=== PATIENT | male | born 1980 | race African-American/Black ===

== ENCOUNTER 2017-10-21 18:04 | Inpatient (IN) | payer MEDICARE, OTHER ==
[~2017-10-21] VITALS: Ht 188 cm; Wt 68.0 kg
[~2017-10-21 18:04] MED LIST: NS Irrig 1000ml ONE; Sterile Water Irrig 1000ml IRRIG ONE
[2017-10-21 20:00] VITALS: BP 100/48
[2017-10-21] MEDS ORDERED: D5 1/2NS 1,000 ML IV SCH ×2 (20:45→22:30)
[2017-10-21 21:30] VITALS: BP 85/50
[2017-10-21 22:00] VITALS: BP 94/68
[2017-10-21] MEDS ORDERED: Norco 5mg/325mg tab ORAL PRN (22:30)
[2017-10-21 23:00] VITALS: BP 98/53
[2017-10-22] VITALS (21 sets, daily range): BP systolic 90–123; BP diastolic 53–76
[2017-10-22 06:45] LABS: HEMATOCRIT 30.4 % (42.0-52.0); HEMOGLOBIN 10.3 G/DL (14.2-18.0); MEAN CORPUSCULAR VOLUME 94 FL (80-99); PLATELET COUNT 214 K/UL (150-450); RED BLOOD COUNT 3.24 M/UL (4.70-6.10); RED CELL DISTRIBUTION WIDTH 13.8 % (11.6-14.8); WHITE BLOOD COUNT 10.8 K/UL (4.8-10.8)
[2017-10-22 07:10] LABS: ALANINE AMINOTRANSFERASE 19 U/L (12-78); ALBUMIN 1.8 G/DL (3.4-5.0); ALBUMIN/GLOBULIN RATIO 0.3 (1.0-2.7); ALKALINE PHOSPHATASE 65 U/L (46-116); ANION GAP 8 mmol/L (5-15); ASPARTATE AMINO TRANSFERASE 33 U/L (15-37); BLOOD UREA NITROGEN 11 mg/dL (7-18); CALCIUM 7.9 MG/DL (8.5-10.1); CARBON DIOXIDE 24 MMOL/L (21-32); CHLORIDE 102 MMOL/L (98-107); CREATININE 1.4 MG/DL (0.55-1.30); PHOSPHORUS 3.1 MG/DL (2.5-4.9); SODIUM 134 MMOL/L (136-145)
[2017-10-22] MEDS: Bactrim-DS 1 tab ORAL SCH ×3 (08:32→20:50)
[2017-10-22] MEDS ORDERED: Cefepime HCl 1 GM in D5W 55 ML IVPB SCH (09:00)
--- NOTE | 2017-10-22 09:01 | Diagnostic Imaging Report ---
Indication: Shortness of breath Technique: One view of the chest Comparison: none Findings: Surgical clip versus artifact seen in the right axilla. Somewhat prominent interstitial markings are seen in the right lower lung. No definite acute infiltrates, effusions, or congestion otherwise. Impression: Questionable ill-defined mostly interstitial infiltrates in the right lower lung. Correlate with clinical findings No acute process otherwise
[2017-10-22] MEDS ORDERED: Isovue-300 100ml vial INJ PRN (09:30)
[2017-10-22] MEDS ORDERED: PPD Tuberculin Skin Test 5TU IDERMAL ONE (09:30)
[2017-10-22] MEDS: Cefepime 1gm in D5W 55ml IVPB SCH ×2 (09:47→20:49)
--- NOTE | 2017-10-22 09:50 | Consultation ---
History of Present Illness General Date patient seen: Oct 22, 2017 Referring physician: Dr. Gtz Reason for Consultation: ICU management Present Illness HPI 36 year old male with hx of HIV ( on HIV meds), Kaposi Sarcoma, last chemo one month ago, Castlemans's disease presented to [facility] with CC of pain in legs , back, neck. C/o poor appetite, developed nausea, vomiting. Then developed fever and chills. Pt is transferred to [facility] for further treatment. Pt is awake , looks comfortable, c/o pain in lower extremities. Allergies: Coded Allergies: No Known Allergies (Unverified , 10/21/17) Patient History Healthcare decision maker N Resuscitation status Full Code Advanced Directive on File No Past Medical/Surgical History Past Medical/Surgical History: (1) HIV disease (2) Kaposi disease (3) Castleman disease Review of Systems Musculoskeletal: Reports: muscle pain All Other Systems: negative except mentioned in HPI Physical Exam General Appearance: cachetic Lines, tubes and drains: peripheral HEENT: normocephalic, atraumatic Neck: non-tender, normal alignment Respiratory/Chest: rhonchi - left, rhonchi - right Cardiovascular/Chest: normal peripheral pulses, normal rate Abdomen: normal bowel sounds, non tender Genitourinary/Rectal: normal genital exam, normal rectal exam Extremities: normal range of motion, non-tender, moderate edema Last 24 Hour Vital Signs Date Time Temp Pulse Resp B/P (MAP) Pulse Ox O2 Delivery O2 Flow Rate FiO2 10/22/17 08:00 Room Air 10/22/17 06:00 112 24 99/56 (70) 97 10/22/17 05:00 115 24 90/53 (65) 97 10/22/17 04:00 97.9 109 24 90/53 (65) 97 97.9 10/22/17 04:00 110 10/22/17 04:00 Room Air 10/22/17 03:00 98.3 120 24 99/59 (72) 96 98.3 10/22/17 02:14 100.2 132 24 92/59 (70) 96 100.2 10/22/17 02:00 100.6 10/22/17 01:52 100.6 10/22/17 01:00 153 26 91/57 (68) 96 10/22/17 00:53 102.0 10/22/17 00:52 102.0 10/22/17 00:00 100.8 162 28 90/54 (66) 100 100.8 10/22/17 00:00 160 10/22/17 00:00 Room Air 10/21/17 23:00 101.0 164 25 98/53 (68) 92 101.0 10/21/17 22:46 Room Air 2.0 10/21/17 22:24 176 10/21/17 22:20 Room Air 10/21/17 22:00 103.0 166 27 94/68 (77) 100 103.0 10/21/17 21:30 102.0 167 20 85/50 (62) 100 102.0 10/21/17 20:01 177 10/21/17 20:00 99.5 180 22 100/48 (65) 97 99.5 Intake and Output 10/21/17 10/22/17 19:00 07:00 Intake Total 870 ml Output Total 800 ml Balance 70 ml Intake Oral 270 ml IV Total 600 ml Output Urine Total 800 ml # Voids 4 Laboratory Tests Test 10/22/17 00:00 10/22/17 06:00 10/22/17 08:55 HIV-1 Antibody Pending HIV-2 Antibody Pending White Blood Count Pending Red Blood Count 3.24 M/UL (4.70-6.10) L Hemoglobin 10.3 G/DL (14.2-18.0) L Hematocrit 30.4 % (42.0-52.0) L Mean Corpuscular Volume 94 FL (80-99) Mean Corpuscular Hemoglobin 31.7 PG (27.0-31.0) H Mean Corpuscular Hemoglobin Concent 33.8 G/DL (32.0-36.0) Red Cell Distribution Width 13.8 % (11.6-14.8) Platelet Count 214 K/UL (150-450) Mean Platelet Volume 5.1 FL (6.5-10.1) L Neutrophils (%) (Auto) % (45.0-75.0) Lymphocytes (%) (Auto) % (20.0-45.0) Monocytes (%) (Auto) % (1.0-10.0) Eosinophils (%) (Auto) % (0.0-3.0) Basophils (%) (Auto) % (0.0-2.0) Neutrophils % (Manual) Pending Lymphocytes % (Manual) Pending Lymphocytes Pending Platelet Estimate Pending Platelet Morphology Pending Sodium Level 134 MMOL/L (136-145) L Potassium Level 3.0 MMOL/L (3.5-5.1) L Chloride Level 102 MMOL/L (98-107) Carbon Dioxide Level 24 MMOL/L (21-32) Anion Gap 8 mmol/L (5-15) Blood Urea Nitrogen 11 mg/dL (7-18) Creatinine 1.4 MG/DL (0.55-1.30) H Estimat Glomerular Filtration Rate > 60 mL/min (>60) Glucose Level 92 MG/DL (74-106) Calcium Level 7.9 MG/DL (8.5-10.1) L Phosphorus Level 3.1 MG/DL (2.5-4.9) Magnesium Level 1.1 MG/DL (1.8-2.4) L Total Bilirubin 1.0 MG/DL (0.2-1.0) Aspartate Amino Transf (AST/SGOT) 33 U/L (15-37) Alanine Aminotransferase (ALT/SGPT) 19 U/L (12-78) Alkaline Phosphatase 65 U/L (46-116) Lactate Dehydrogenase 279 U/L (81-234) H Total Protein 7.2 G/DL (6.4-8.2) Albumin 1.8 G/DL (3.4-5.0) L Globulin 5.4 g/dL Albumin/Globulin Ratio 0.3 (1.0-2.7) L Percent CD3 Cells Pending Absolute CD3 Count Pending Percent CD4 Cells Pending Absolute CD4 Count Pending T-Lymphocyte CD4/CD8 Ratio Pending Percent CD8 Cells Pending Absolute CD8 Count Pending HIV (1&2) Antibody Rapid Preliminary positive Arterial Blood pH 7.390 (7.350-7.450) Arterial Blood Partial Pressure CO2 39.0 mmHg (35.0-45.0) Arterial Blood Partial Pressure O2 72.0 mmHg (75.0-100.0) L Arterial Blood HCO3 23.1 mmol/L (22.0-26.0) Arterial Blood Oxygen Saturation 93.9 % (92.0-98.0) Arterial Blood Base Excess -1.6 Shayne Test Positive Height (Feet): 6 Height (Inches): 2.00 Weight (Pounds): 149 Medications Current Medications Medications (Trade) Dose Ordered Sig/Yessica Route PRN Reason Start Time Stop Time Status Last Admin Dose Admin Acetaminophen (Tylenol) 650 mg Q6H PRN ORAL Mild Pain/Temp > 100.5 10/21/17 22:30 11/20/17 22:29 10/22/17 00:53 Acetaminophen/ Hydrocodone Bitart ([place] 5/325) 1 tab Q6H PRN ORAL For Pain 10/21/17 22:30 10/28/17 22:29 10/22/17 00:52 Cefepime HCl 1 gm/ Dextrose 55 ml @ 110 mls/hr EVERY 12 HOURS IVPB 10/22/17 09:00 10/29/17 08:59 Dextrose/Sodium Chloride 1,000 ml @ 75 mls/hr [id number] IV 10/21/17 22:30 11/20/17 22:29 10/21/17 22:30 Trimethoprim/ Sulfamethoxazole (Bactrim-DS) 1 tab Q12HR ORAL 10/22/17 09:00 10/29/17 08:59 10/22/17 08:32 Assessment/Plan Problem List: (1) Septic shock ICD Codes: A41.9 - Sepsis, unspecified organism; R65.21 - Severe sepsis with septic shock SNOMED: 41224191 (2) ATN (acute tubular necrosis) ICD Codes: N17.0 - Acute kidney failure with tubular necrosis SNOMED: 66619118 (3) Interstitial pneumonia ICD Codes: J84.9 - Interstitial pulmonary disease, unspecified SNOMED: 10405151 (4) HIV disease ICD Codes: B20 - Human immunodeficiency virus [HIV] disease SNOMED: 61150604 (5) Kaposi disease ICD Codes: Q82.1 - Xeroderma pigmentosum SNOMED: 71092247 (6) Castleman disease ICD Codes: D47.Z2 - Castleman disease SNOMED: 723557948, 444565758 Assessment/Plan escobedo culture sputum for afb PPD rule out fungal and opportunistic infections CT of chest Echo for w/u of tachycardia broad spectrum abx dvt prophylaxis. respiratory isolation Ya Hester MD Oct 22, 2017 09:50
[2017-10-22] MEDS ORDERED: Sterile Water For Irrig 2000ml IRRIG ONE (10:15)
[2017-10-22 10:38] LABS: INR 1.1 (0.9-1.1)
--- NOTE | 2017-10-22 10:44 | Consultation ---
History of Present Illness General Date patient seen: Oct 22, 2017 Referring physician: Dr. Gtz Reason for Consultation: ICU management Present Illness HPI 36 year old male with hx of HIV ( on HIV meds), Kaposi Sarcoma, last chemo one month ago, Castlemans's disease presented to [facility]. the pt has not been eating and is depressed. He has insomnia and low energy. No SI/HI Allergies: Coded Allergies: No Known Allergies (Unverified , 10/21/17) Patient History Limited by: medical condition History Provided By: Patient, Medical Record, PMD Healthcare decision maker N Resuscitation status Full Code Advanced Directive on File No Past Medical/Surgical History Past Medical/Surgical History: (1) Sepsis (2) Castleman disease (3) Kaposi disease (4) HIV disease (5) Septic shock (6) ATN (acute tubular necrosis) (7) Interstitial pneumonia Review of Systems Psychiatric: Reports: prior hx, anxiety, depressed feelings, emotional problems Physical Exam General Appearance: no apparent distress, alert Neurologic: oriented x 3, responsive, depressed affect Last 24 Hour Vital Signs Date Time Temp Pulse Resp B/P (MAP) Pulse Ox O2 Delivery O2 Flow Rate FiO2 10/22/17 08:00 Room Air 10/22/17 06:00 112 24 99/56 (70) 97 10/22/17 05:00 115 24 90/53 (65) 97 10/22/17 04:00 97.9 109 24 90/53 (65) 97 97.9 10/22/17 04:00 110 10/22/17 04:00 Room Air 10/22/17 03:00 98.3 120 24 99/59 (72) 96 98.3 10/22/17 02:14 100.2 132 24 92/59 (70) 96 100.2 10/22/17 02:00 100.6 10/22/17 01:52 100.6 10/22/17 01:00 153 26 91/57 (68) 96 10/22/17 00:53 102.0 10/22/17 00:52 102.0 10/22/17 00:00 100.8 162 28 90/54 (66) 100 100.8 10/22/17 00:00 160 10/22/17 00:00 Room Air 10/21/17 23:00 101.0 164 25 98/53 (68) 92 101.0 10/21/17 22:46 Room Air 2.0 10/21/17 22:24 176 10/21/17 22:20 Room Air 10/21/17 22:00 103.0 166 27 94/68 (77) 100 103.0 10/21/17 21:30 102.0 167 20 85/50 (62) 100 102.0 10/21/17 20:01 177 10/21/17 20:00 99.5 180 22 100/48 (65) 97 99.5 Intake and Output 10/21/17 10/22/17 19:00 07:00 Intake Total 870 ml Output Total 800 ml Balance 70 ml Intake Oral 270 ml IV Total 600 ml Output Urine Total 800 ml # Voids 4 Laboratory Tests Test 10/22/17 00:00 10/22/17 06:00 10/22/17 08:55 10/22/17 10:05 HIV-1 Antibody Pending HIV-2 Antibody Pending White Blood Count Pending Pending Red Blood Count 3.24 M/UL (4.70-6.10) L Pending Hemoglobin 10.3 G/DL (14.2-18.0) L Pending Hematocrit 30.4 % (42.0-52.0) L Pending Mean Corpuscular Volume 94 FL (80-99) Pending Mean Corpuscular Hemoglobin 31.7 PG (27.0-31.0) H Pending Mean Corpuscular Hemoglobin Concent 33.8 G/DL (32.0-36.0) Pending Red Cell Distribution Width 13.8 % (11.6-14.8) Pending Platelet Count 214 K/UL (150-450) Pending Mean Platelet Volume 5.1 FL (6.5-10.1) L Pending Neutrophils (%) (Auto) % (45.0-75.0) Pending Lymphocytes (%) (Auto) % (20.0-45.0) Pending Monocytes (%) (Auto) % (1.0-10.0) Pending Eosinophils (%) (Auto) % (0.0-3.0) Pending Basophils (%) (Auto) % (0.0-2.0) Pending Neutrophils % (Manual) Pending Lymphocytes % (Manual) Pending Lymphocytes Pending Platelet Estimate Pending Platelet Morphology Pending Sodium Level 134 MMOL/L (136-145) L Potassium Level 3.0 MMOL/L (3.5-5.1) L Chloride Level 102 MMOL/L (98-107) Carbon Dioxide Level 24 MMOL/L (21-32) Anion Gap 8 mmol/L (5-15) Blood Urea Nitrogen 11 mg/dL (7-18) Creatinine 1.4 MG/DL (0.55-1.30) H Estimat Glomerular Filtration Rate > 60 mL/min (>60) Glucose Level 92 MG/DL (74-106) Calcium Level 7.9 MG/DL (8.5-10.1) L Phosphorus Level 3.1 MG/DL (2.5-4.9) Magnesium Level 1.1 MG/DL (1.8-2.4) L Total Bilirubin 1.0 MG/DL (0.2-1.0) Aspartate Amino Transf (AST/SGOT) 33 U/L (15-37) Alanine Aminotransferase (ALT/SGPT) 19 U/L (12-78) Alkaline Phosphatase 65 U/L (46-116) Lactate Dehydrogenase 279 U/L (81-234) H Pending Total Protein 7.2 G/DL (6.4-8.2) Albumin 1.8 G/DL (3.4-5.0) L Globulin 5.4 g/dL Albumin/Globulin Ratio 0.3 (1.0-2.7) L Percent CD3 Cells Pending Absolute CD3 Count Pending Percent CD4 Cells Pending Absolute CD4 Count Pending T-Lymphocyte CD4/CD8 Ratio Pending Percent CD8 Cells Pending Absolute CD8 Count Pending HIV (1&2) Antibody Rapid Preliminary positive Arterial Blood pH 7.390 (7.350-7.450) Arterial Blood Partial Pressure CO2 39.0 mmHg (35.0-45.0) Arterial Blood Partial Pressure O2 72.0 mmHg (75.0-100.0) L Arterial Blood HCO3 23.1 mmol/L (22.0-26.0) Arterial Blood Oxygen Saturation 93.9 % (92.0-98.0) Arterial Blood Base Excess -1.6 Shayne Test Positive Erythrocyte Sedimentation Rate Pending Reticulocyte Count Pending Prothrombin Time 11.8 SEC (9.30-11.50) H Prothromb Time International Ratio 1.1 (0.9-1.1) Activated Partial Thromboplast Time 37 SEC (23-33) H Lactic Acid Level Pending Uric Acid Pending Iron Level Pending Unsaturated Iron Binding Pending Total Creatine Kinase Pending Carcinoembryonic Antigen Pending Vitamin B12 Level Pending Folate Pending Blastomyces Ab Immunodiffusion Pending Histoplasma Mycelial Antibody Pending Histoplasma Antibody w Mycelial Ag Pending Histoplasma Antibody with Yeast Ag Pending TB Test (T-Spot) Pending TB Test Nil Control (T-Spot) Pending TB Test Panel A (T-Spot) Pending TB Test Panel B (T-Spot) Pending TB Test Positive Control (T-Spot) Pending Height (Feet): 6 Height (Inches): 2.00 Weight (Pounds): 149 Medications Current Medications Medications (Trade) Dose Ordered Sig/Yessica Route PRN Reason Start Time Stop Time Status Last Admin Dose Admin Acetaminophen (Tylenol) 650 mg Q6H PRN ORAL Mild Pain/Temp > 100.5 10/21/17 22:30 11/20/17 22:29 10/22/17 00:53 Acetaminophen/ Hydrocodone Bitart ([place] 5/325) 1 tab Q6H PRN ORAL For Pain 10/21/17 22:30 10/28/17 22:29 10/22/17 00:52 Cefepime HCl 1 gm/ Dextrose 55 ml @ 110 mls/hr EVERY 12 HOURS IVPB 10/22/17 09:00 10/29/17 08:59 10/22/17 09:47 Iopamidol (Isovue-300 100ml) 100 ml NOW PRN INJ Radiology Procedure 10/22/17 09:30 10/24/17 09:30 Pantoprazole (Protonix) 40 mg EVERY 12 HOURS IVP 10/22/17 21:00 11/21/17 20:59 Potassium Chloride 10 meq/ Sodium Chloride 1,005 ml @ 100 mls/hr Q10H3M IV 10/22/17 11:00 11/21/17 10:59 Sodium Chloride (Sodium Chloride Dey-Michael 3%) 4 ml ONCE ONCE INH 10/22/17 11:00 10/22/17 11:01 Trimethoprim/ Sulfamethoxazole (Bactrim-DS) 1 tab Q12HR ORAL 10/22/17 09:00 10/29/17 08:59 10/22/17 08:32 Assessment/Plan Status: unchanged Assessment/Plan MDD Failure to thrive -remeron 15mg po qhs -ativan prn -provided marie/Rajinder Mojica MD Oct 22, 2017 10:44
[2017-10-22 10:50] LABS: CREATINE KINASE 724 U/L (26-308); LACTATE DEHYDROGENASE 141 U/L (81-234)
[2017-10-22] MEDS ORDERED: Norco 5mg/325mg tab ORAL PRN (11:00)
[2017-10-22] MEDS ORDERED: LORazepam 1mg tab ORAL PRN (11:00)
[2017-10-22] MEDS ORDERED: Sodium Chloride 3% 4ml Nebul Soln INH ONE (11:00)
[2017-10-22 11:02] LABS: % IRON SATURATION 17 % (15-50); IRON 16 ug/dL (50-175); TOTAL IRON BINDING CAPACITY 96 ug/dL (250-450)
[2017-10-22 11:22] LABS: HEMOGLOBIN 11.3 G/DL (14.2-18.0); MEAN CORPUSCULAR VOLUME 91 FL (80-99); PLATELET COUNT 223 K/UL (150-450); RED BLOOD COUNT 3.61 M/UL (4.70-6.10); RED CELL DISTRIBUTION WIDTH 13.5 % (11.6-14.8)
[2017-10-22] MEDS: Potassium Chloride 10 MEQ in NS 1000ml 1,000 ML IV SCH ×2 (11:56→21:03)
[2017-10-22] MEDS: Morphine Sulfate 2mg/ml Inj IVP PRN ×2 (11:56→21:01)
[2017-10-22 12:56] LABS: APPEARANCE,URINE CLEAR; BILIRUBIN, URINE NEGATIVE (NEGATIVE); GLUCOSE, URINE (UA) NEGATIVE (NEGATIVE); KETONES,URINE 1+ (NEGATIVE); LEUKOCYTE ESTERASE ,URINE NEGATIVE (NEGATIVE); NITRITE,URINE NEGATIVE (NEGATIVE); PH,URINE 5 (4.5-8.0); PROTEIN,URINE 2+ (NEGATIVE); UROBILINOGEN,URINE 1 MG/DL (0.0-1.0)
[2017-10-22 13:07] LABS: COLOR,URINE YELLOW
--- NOTE | 2017-10-22 14:19 | Consultation ---
History of Present Illness General Date patient seen: Oct 22, 2017 Chief Complaint: Sepsis Referring physician: Dr. Gtz Reason for Consultation: ICU management Present Illness HPI Mr. Hewitt is a 36 year old HIV/AIDS positive male who presented to the [facility] ED with poor appetite, nausea and vomiting. He also had fever and chills. He was transferred from [facility]. He had a HR of 180 on arrival and a fever of 102. He has had no leukocytosis and is on RA. CT chest pending. CXR shows Surgical clip versus artifact seen in the right axilla. Somewhat prominent interstitial markings are seen in the right lower lung. No definite acute infiltrates, effusions, or congestion otherwise. He was placed on Bactrim and Cefepime. ID consulted for HIV care HIV Hx Dx 1999 Started on meds at that time. Says he has been taking them since. Does not know VL, CD4 counts or med names Per his mother is on Tivicay, Truvada and Bactrim. PMHx HIV Castlemans's disease/Kaposi Sarcoma, last chemo one month (got about 9 months of it on and off) Blood Clot in left groin - On Enoxaparin BID at home PSHx Axillary LN Bx x 2 SocHx Cig/MJ No IVDU or EtOH FamHx Lung CA - Grandmother Allergies: Coded Allergies: No Known Allergies (Unverified , 10/21/17) Patient History Healthcare decision maker N Resuscitation status Full Code Advanced Directive on File No Review of Systems All Other Systems: negative except mentioned in HPI Physical Exam Last 24 Hour Vital Signs Date Time Temp Pulse Resp B/P (MAP) Pulse Ox O2 Delivery O2 Flow Rate FiO2 10/22/17 12:12 100.4 10/22/17 12:06 132 20 96 Room Air 21 10/22/17 11:45 126 18 95 Room Air 21 10/22/17 11:45 126 20 Room Air 21 10/22/17 10:00 131 22 115/70 (85) 97 10/22/17 09:00 127 22 105/65 (78) 98 10/22/17 09:00 Room Air 10/22/17 08:00 116 24 101/71 (81) 97 10/22/17 08:00 124 10/22/17 08:00 Room Air 10/22/17 07:00 97.6 116 21 100/64 (76) 97 97.6 10/22/17 06:00 112 24 99/56 (70) 97 10/22/17 05:00 115 24 90/53 (65) 97 10/22/17 04:00 97.9 109 24 90/53 (65) 97 97.9 10/22/17 04:00 110 10/22/17 04:00 Room Air 10/22/17 03:00 98.3 120 24 99/59 (72) 96 98.3 10/22/17 02:14 100.2 132 24 92/59 (70) 96 100.2 10/22/17 02:00 100.6 10/22/17 01:52 100.6 10/22/17 01:00 153 26 91/57 (68) 96 10/22/17 00:53 102.0 10/22/17 00:52 102.0 10/22/17 00:00 100.8 162 28 90/54 (66) 100 100.8 10/22/17 00:00 160 10/22/17 00:00 Room Air 10/21/17 23:00 101.0 164 25 98/53 (68) 92 101.0 10/21/17 22:46 Room Air 2.0 10/21/17 22:24 176 10/21/17 22:20 Room Air 10/21/17 22:00 103.0 166 27 94/68 (77) 100 103.0 10/21/17 21:30 102.0 167 20 85/50 (62) 100 102.0 10/21/17 20:01 177 10/21/17 20:00 99.5 180 22 100/48 (65) 97 99.5 Intake and Output 10/21/17 10/22/17 19:00 07:00 Intake Total 870 ml Output Total 800 ml Balance 70 ml Intake Oral 270 ml IV Total 600 ml Output Urine Total 800 ml # Voids 4 Laboratory Tests Test 10/22/17 00:00 10/22/17 06:00 10/22/17 08:40 10/22/17 08:55 HIV-1 Antibody Pending HIV-2 Antibody Pending White Blood Count Pending Red Blood Count 3.24 M/UL (4.70-6.10) L Hemoglobin 10.3 G/DL (14.2-18.0) L Hematocrit 30.4 % (42.0-52.0) L Mean Corpuscular Volume 94 FL (80-99) Mean Corpuscular Hemoglobin 31.7 PG (27.0-31.0) H Mean Corpuscular Hemoglobin Concent 33.8 G/DL (32.0-36.0) Red Cell Distribution Width 13.8 % (11.6-14.8) Platelet Count 214 K/UL (150-450) Mean Platelet Volume 5.1 FL (6.5-10.1) L Neutrophils (%) (Auto) % (45.0-75.0) Lymphocytes (%) (Auto) % (20.0-45.0) Monocytes (%) (Auto) % (1.0-10.0) Eosinophils (%) (Auto) % (0.0-3.0) Basophils (%) (Auto) % (0.0-2.0) Differential Total Cells Counted 100 Neutrophils % (Manual) 85 % (45-75) H Lymphocytes % (Manual) 6 % (20-45) L Monocytes % (Manual) 4 % (1-10) Eosinophils % (Manual) 2 % (0-3) Basophils % (Manual) 0 % (0-2) Band Neutrophils 3 % (0-8) Lymphocytes Pending Platelet Estimate Adequate Platelet Morphology Normal Hypochromasia 1+ Anisocytosis 1+ Sodium Level 134 MMOL/L (136-145) L Potassium Level 3.0 MMOL/L (3.5-5.1) L Chloride Level 102 MMOL/L (98-107) Carbon Dioxide Level 24 MMOL/L (21-32) Anion Gap 8 mmol/L (5-15) Blood Urea Nitrogen 11 mg/dL (7-18) Creatinine 1.4 MG/DL (0.55-1.30) H Estimat Glomerular Filtration Rate > 60 mL/min (>60) Glucose Level 92 MG/DL (74-106) Calcium Level 7.9 MG/DL (8.5-10.1) L Phosphorus Level 3.1 MG/DL (2.5-4.9) Magnesium Level 1.1 MG/DL (1.8-2.4) L Total Bilirubin 1.0 MG/DL (0.2-1.0) Aspartate Amino Transf (AST/SGOT) 33 U/L (15-37) Alanine Aminotransferase (ALT/SGPT) 19 U/L (12-78) Alkaline Phosphatase 65 U/L (46-116) Lactate Dehydrogenase 279 U/L (81-234) H Total Protein 7.2 G/DL (6.4-8.2) Albumin 1.8 G/DL (3.4-5.0) L Globulin 5.4 g/dL Albumin/Globulin Ratio 0.3 (1.0-2.7) L Percent CD3 Cells Pending Absolute CD3 Count Pending Percent CD4 Cells Pending Absolute CD4 Count Pending T-Lymphocyte CD4/CD8 Ratio Pending Percent CD8 Cells Pending Absolute CD8 Count Pending HIV (1&2) Antibody Rapid Preliminary positive Urine Color Yellow Urine Appearance Clear Urine pH 5 (4.5-8.0) Urine Specific [place] 1.015 (1.005-1.035) Urine Protein 2+ (NEGATIVE) H Urine Glucose (UA) Negative (NEGATIVE) Urine Ketones 1+ (NEGATIVE) H Urine Blood 2+ (NEGATIVE) H Urine Nitrite Negative (NEGATIVE) Urine Bilirubin Negative (NEGATIVE) Urine Urobilinogen 1 MG/DL (0.0-1.0) H Urine Leukocyte Esterase Negative (NEGATIVE) Urine RBC 2-4 /HPF (0 - 0) H Urine WBC 0 /HPF (0 - 0) Urine Squamous Epithelial Cells Occasional /LPF Urine Amorphous Sediment Occasional /LPF (NONE) Urine Bacteria Occasional /HPF (NONE) Urine Eosinophils None seen (NONE SEEN) Urine Random Sodium 41 mmol/L (20-110) Urine Potassium Timed 31 mmol/L (12-62) Arterial Blood pH 7.390 (7.350-7.450) Arterial Blood Partial Pressure CO2 39.0 mmHg (35.0-45.0) Arterial Blood Partial Pressure O2 72.0 mmHg (75.0-100.0) L Arterial Blood HCO3 23.1 mmol/L (22.0-26.0) Arterial Blood Oxygen Saturation 93.9 % (92.0-98.0) Arterial Blood Base Excess -1.6 Shayne Test Positive Test 10/22/17 10:05 White Blood Count 9.0 K/UL (4.8-10.8) Red Blood Count 3.61 M/UL (4.70-6.10) L Hemoglobin 11.3 G/DL (14.2-18.0) L Hematocrit 33.0 % (42.0-52.0) L Mean Corpuscular Volume 91 FL (80-99) Mean Corpuscular Hemoglobin 31.3 PG (27.0-31.0) H Mean Corpuscular Hemoglobin Concent 34.2 G/DL (32.0-36.0) Red Cell Distribution Width 13.5 % (11.6-14.8) Platelet Count 223 K/UL (150-450) Mean Platelet Volume 5.2 FL (6.5-10.1) L Neutrophils (%) (Auto) % (45.0-75.0) Lymphocytes (%) (Auto) % (20.0-45.0) Monocytes (%) (Auto) % (1.0-10.0) Eosinophils (%) (Auto) % (0.0-3.0) Basophils (%) (Auto) % (0.0-2.0) Differential Total Cells Counted 100 Neutrophils % (Manual) 86 % (45-75) H Lymphocytes % (Manual) 6 % (20-45) L Monocytes % (Manual) 3 % (1-10) Eosinophils % (Manual) 5 % (0-3) H Basophils % (Manual) 0 % (0-2) Band Neutrophils 0 % (0-8) Platelet Estimate Adequate Platelet Morphology Normal Hypochromasia 1+ Anisocytosis 1+ Erythrocyte Sedimentation Rate 105 MM/HR (0-15) H Reticulocyte Count 0.9 % (0.0-2.0) Prothrombin Time 11.8 SEC (9.30-11.50) H Prothromb Time International Ratio 1.1 (0.9-1.1) Activated Partial Thromboplast Time 37 SEC (23-33) H Lactic Acid Level 1.50 mmol/L (0.4-2.0) Uric Acid 4.3 MG/DL (2.6-7.2) Iron Level 16 ug/dL (50-175) L Total Iron Binding Capacity 96 ug/dL (250-450) L Percent Iron Saturation 17 % (15-50) Unsaturated Iron Binding 80 ug/dL (112-346) L Lactate Dehydrogenase 141 U/L (81-234) Total Creatine Kinase 724 U/L (26-308) H Carcinoembryonic Antigen Pending Vitamin B12 Level 464 PG/ML (193-986) Folate 5.3 NG/ML (8.6-58.9) L Blastomyces Ab Immunodiffusion Pending Histoplasma Mycelial Antibody Pending Histoplasma Antibody w Mycelial Ag Pending Histoplasma Antibody with Yeast Ag Pending TB Test (T-Spot) Pending TB Test Nil Control (T-Spot) Pending TB Test Panel A (T-Spot) Pending TB Test Panel B (T-Spot) Pending TB Test Positive Control (T-Spot) Pending Height (Feet): 6 Height (Inches): 2.00 Weight (Pounds): 149 Medications Current Medications Medications (Trade) Dose Ordered Sig/Yessica Route PRN Reason Start Time Stop Time Status Last Admin Dose Admin Acetaminophen (Tylenol) 650 mg Q6H PRN ORAL Mild Pain/Temp > 100.5 10/21/17 22:30 11/20/17 22:29 10/22/17 12:12 Acetaminophen/ Hydrocodone Bitart ([place] 5/325) 1 tab Q6H PRN ORAL For Moderate Pain(4-6) 10/22/17 11:00 10/28/17 22:29 Cefepime HCl 1 gm/ Dextrose 55 ml @ 110 mls/hr EVERY 12 HOURS IVPB 10/22/17 09:00 10/29/17 08:59 10/22/17 09:47 Iopamidol (Isovue-300 100ml) 100 ml NOW PRN INJ Radiology Procedure 10/22/17 09:30 10/24/17 09:30 Lorazepam (Ativan) 1 mg Q6H PRN ORAL For Anxiety 10/22/17 11:00 10/29/17 10:59 Mirtazapine (Remeron) 15 mg BEDTIME ORAL 10/22/17 21:00 11/21/17 20:59 Morphine Sulfate (Morphine Sulfate) 2 mg Q4H PRN IVP For Severe Pain(7-10) 10/22/17 10:45 10/29/17 10:44 10/22/17 11:56 Pantoprazole (Protonix) 40 mg EVERY 12 HOURS IVP 10/22/17 21:00 11/21/17 20:59 Potassium Chloride 10 meq/ Sodium Chloride 1,005 ml @ 100 mls/hr Q10H3M IV 10/22/17 11:00 11/21/17 10:59 10/22/17 11:56 Trimethoprim/ Sulfamethoxazole (Bactrim-DS) 1 tab Q12HR ORAL 10/22/17 09:00 10/29/17 08:59 10/22/17 08:32 Objective Narrative GENERAL: Thin male, NAD, Sitting in bed, Comfortable HEENT: NCAT, MMM, EOMI left eye with some deviation (Not new per patient) , PERRL, No scleral icterus, Poor dentition, No oral thrush. CARDIOVASCULAR: RRR, S1, S2, No M/R/G LUNGS: CTAB, No W/C, No chest pain on papation ABDOMEN: Soft, NT, ND, +BS, No CVA tenderness or back pain, Pain in the left inguinal region EXTREMITIES: No cyanosis, clubbing. Pulses 1+ DP, 2+ Rad B/L,Left foot and leg with edema to knee, Right foot with edema SKIN: Multiple dark skin lesion/crusting of feet and shins B/L, NEUROLOGIC: A/Ox4, Grossly non focal Assessment/Plan Assessment/Plan 36 year old HIV/AIDS positive male who presented to the [facility] ED with poor appetite, nausea and vomiting and fever to 102. Sepsis - PNA, KS, other infection (TB?) - CXR interstitial marking but no definite acute infiltrates, effusions, or congestion 10/22/17 CT chest - Pend Fever up to 102 HIV - On Tivicay and Truvada and Bactrim Unknown CD4 adn VL KS/ Castlemans's disease REENA P: Continue Cefepime and Bactrim for now Start Azithromycin for possible pna. QTC 378 - f/u CT chest - f/u B/U/S Cx and AFB - Monitor CBC and Temps - Hold HIV meds for now - Called his HIV MD Dr. Carr Waiting for a call back. Thank you for this consult we will continue to follow the patient with you. Sterling Ortiz MD Oct 22, 2017 14:19
--- NOTE | 2017-10-22 15:30 | Cardiology Report ---
APPROVED REPORT EXAM: Two-dimensional and M-mode echocardiogram with Doppler and color Doppler. INDICATION Tachycardia M-Mode DIMENSIONS IVSd1.4 (0.7-1.1cm)Left Atrium (MM)3.0 (1.6-4.0cm) LVDd3.8 (3.5-5.6cm)Aortic Root3.4 (2.0-3.7cm) PWd1.1 (0.7-1.1cm)Aortic Cusp Exc.2.2 (1.5-2.0cm) LVDs2.6 (2.5-4.0cm) PWs1.3 cm Normal left ventricular chamber size, systolic function and wall motion. Left ventricular ejection fraction estimated to be 65-70 %. Mild left ventricular hypertrophy. Small pericardial effusion along free wall of RV. All other cardiac chamber sizes are within normal limits. Mild focal aortic valve sclerosis with adequate cusp excursion. Mildly thickened mitral valve leaflets with normal excursion. Mitral annulus and aortic root calcification. Normal pulmonic valve structure. Normal tricuspid valve structure. IVC at normal size with physiologic collapse. A color flow and spectral Doppler study was performed and revealed: Trace mitral regurgitation. Mitral diastolic velocities suggest reduced left ventricular relaxation c/w mild LV diastolic dysfunction (Grade I). Mild tricuspid regurgitation. Tricuspid systolic velocities suggests peak right ventricular systolic pressure of 39 mmHg, consistent with mild pulmonary hypertension.
[2017-10-22] MEDS ORDERED: Azithromycin 250mg tab ORAL SCH (16:02)
--- NOTE | 2017-10-22 16:43 | Diagnostic Imaging Report ---
Clinical Indication: Chest pain, history of Castleman's disease, fever and chills Technique: IV administration nonionic contrast. Spiral acquisition obtained through the chest. Multiplanar reconstructions generated. Total dose length product 529.09 mGycm. CTDIvol(s) 13.07 mGy. Dose reduction achieved using automated exposure control Comparison: Chest radiograph earlier the same day Findings: There is a small pleural effusion on the right. This results in compressive atelectasis of a small portion of the posterior right lower lobe. Very small area of reticular opacity surrounds the right lateral basilar segmental bronchus. There are a few small subpleural blebs or bullae in the bilateral lung apices. No infiltrates. No effusions are seen on the left. There is an anterior wall pericardial effusion. The heart size is normal. No mediastinal or hilar mass or adenopathy. Included portions of the thyroid are unremarkable. There are enlarged bilateral axillary nodes, with loss of normal morphology, largest node on the left measuring 3.5 cm in diameter. Surgical clips are seen in the axillae bilaterally, and there is infiltration of the bilateral axillary fat. There is bilateral gynecomastia.. The bones demonstrate subcentimeter lucencies within the T12 vertebral body, the anterior left T11 pedicle, the T10 vertebral body. The included upper abdomen demonstrates prominence and heterogeneity of the spleen. Splenic heterogeneity is probably due to the phase of contrast opacification, but true lesions are also possible. There are also some tiny subcentimeter low-attenuation lesions within the spleen which probably does represent small cysts. There is considerable edema of the fat of the visualized portions of the mesenteric root and anterior retroperitoneum, surrounding the celiac origin and branches, surrounding the adrenals and intrahepatic inferior vena cava, and extending into the alan hepatis. There are prominent peripancreatic lymph nodes Impression: Small right pleural effusion. Resultant compressive atelectasis of a small portion of the right lower lobe Minimal reticular opacity surrounding the right lateral basilar segmental bronchus, nonspecific but likely postinflammatory in nature Bilateral upper lung subpleural blebs or bullae No acute or significant pulmonary pathology otherwise Anterior wall pericardial effusion Bilateral axillary lymphadenopathy. Evidence of right or bilateral axillary surgery. Infiltration of the axillary fat could be related to the prior surgery or could represent acute inflammation Extensive edema of the upper abdominal anterior retroperitoneum and mesenteric root, incompletely visualized, etiology uncertain. Consider abdominal pelvic CT for better characterization Prominent peripancreatic lymph nodes, incompletely visualized Somewhat heterogeneous spleen, probably related to phase of contrast opacification but a true lesions are not excludable. Lucencies within the lower thoracic vertebral bodies, as described. Nonspecific, could represent benign hemangiomas but neoplastic deposits are also possible Bilateral gynecomastia The CT scanner at [facility] is accredited by the [employer] and the scans are performed using protocols designed to limit radiation exposure to as low as reasonably achievable to attain images of sufficient resolution adequate for diagnostic evaluation.
--- NOTE | 2017-10-22 19:34 | History & Physical ---
History and Physical History & Physicial Dictated for Int Med-Dr Gtz no. [id number]. ICU Adam Padron MD Oct 22, 2017 19:34
[2017-10-22] MEDS: Pantoprazole Inj IVP SCH (20:49)
--- NOTE | 2017-10-22 23:30 | History and Physical Report ---
DATE OF ADMISSION: 10/21/2017 CHIEF COMPLAINT: The patient is a 36-year-old male, who presents with a chief complaint of fever, chills, nausea, and vomiting. HISTORY OF PRESENT ILLNESS: The patient has a history of human immunodeficiency virus/acquired immune deficiency syndrome. The patient was diagnosed in 1999. The patient does not know the names of his medication. The patient does not know his T-cell count or his viral load. The patient presented to [facility] Emergency Room complaining of nausea and vomiting. The patient had a poor appetite for one week. The patient then experienced fevers of up to 102 degrees Fahrenheit. The patient is tachycardic with heart rate 150 to 180. The patient was transferred to [facility] for insurance purposes. The patient is admitted with chief complaint of fever and chills to rule out sepsis. PAST MEDICAL HISTORY: Significant for, 1. HIV, diagnosed in 1999. The patient is apparently on Tivicay, Truvada, and Bactrim. 2. 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 PAST SURGICAL HISTORY: Significant for lymph node biopsy in the right axilla. CURRENT MEDICATIONS: 1. Tivicay. 2. Truvada. 3. Bactrim. ALLERGIES: No known drug allergies. SOCIAL HISTORY: The patient is single. The patient denies tobacco or alcohol use. REVIEW OF SYSTEMS: CONSTITUTIONAL: The patient denies weight loss or weight gain. The patient complains of fevers and chills as above. HEENT: The patient denies ear or throat pain. The patient denies headache. CARDIOVASCULAR: The patient has tachycardia as above. The patient denies palpitations or chest pain. CHEST: The patient denies wheeze or shortness of breath. ABDOMINAL: The patient denies constipation or diarrhea. The patient complains of nausea and vomiting as above. NEUROMUSCULAR: The patient denies seizures or generalized weakness. GENITOURINARY: The patient denies dysuria or increased frequency of urination. PHYSICAL EXAMINATION: VITAL SIGNS: Temperature 99, respirations 20, pulse 129 to 131, blood pressure 109 to 122/60 to 70. GENERAL: The patient is a well-developed and well-nourished thin-appearing male, in no apparent distress. HEENT: Eyes, pupils equal and responsive to light and accommodation. Extraocular movements are intact. NECK: Supple without lymphadenopathy. CHEST: Lungs are clear to auscultation bilaterally without wheezes or rales. CARDIOVASCULAR: Regular rhythm and rate. S1 and S2 are normal without murmurs, rubs, or gallops. ABDOMEN: Soft, nontender, and nondistended. Positive bowel sounds. No evidence of hepatosplenomegaly. Currently, no rebound or guarding noted. EXTREMITIES: Negative for clubbing, cyanosis, or edema. RECTAL/GENITAL: Refused. NEUROLOGIC: Cranial nerves II through XII are grossly intact without focal deficits. Motor strength is 5/5 bilaterally. Deep tendon reflexes are 2+ plantar. LABORATORY STUDIES: WBC 10.8, hemoglobin 10.3, hematocrit 30.4, and platelets 214,000. Sodium 134, potassium 3.0, chloride 102, CO2 24, BUN 11, creatinine 1.4, and glucose 92. Chest x-ray from [facility] revealed somewhat prominent interstitial markings in the right lower lung, otherwise, no definite infiltrates noted. ASSESSMENT: This is a 36-year-old male. 1. Fever and chills. 2. Nausea and vomiting. 3. Probable sepsis. 4. Human immunodeficiency virus. 5. Kaposi's sarcoma. 6. Castleman's disease. TREATMENT: 1. Fever/chills/sepsis. Blood cultures are pending. An Infectious Disease consultation has been obtained with . The patient has been started empirically on azithromycin, Bactrim, and cefepime. We will follow recommendations of Infectious Disease. 2. Human immunodeficiency virus/acquired immune deficiency syndrome. The patient will continue HAART therapy as above. 3. Kaposi's sarcoma. The patient is currently undergoing chemotherapy at an outside facility. 4. Castleman's diseases. Adam Padron M.D. DR: JENNIFER JOB#: [id number] CC:
[2017-10-23] VITALS (16 sets, daily range): BP systolic 92–116; BP diastolic 50–76
[2017-10-23] MEDS: Potassium Chloride 10 MEQ in NS 1000ml 1,000 ML IV SCH ×3 (00:14→14:50)
[2017-10-23 05:57] LABS: BASOPHILS % (AUTO) 0.1 % (0.0-2.0); HEMATOCRIT 25.8 % (42.0-52.0); HEMOGLOBIN 8.9 G/DL (14.2-18.0); LYMPHOCYTES % (AUTO) 9.9 % (20.0-45.0); MEAN CORPUSCULAR VOLUME 93 FL (80-99); MONOCYTES % (AUTO) 2.9 % (1.0-10.0); NEUTROPHILS % (AUTO) 82.1 % (45.0-75.0); PLATELET COUNT 225 K/UL (150-450); RED BLOOD COUNT 2.79 M/UL (4.70-6.10); RED CELL DISTRIBUTION WIDTH 13.6 % (11.6-14.8); WHITE BLOOD COUNT 9.4 K/UL (4.8-10.8)
--- NOTE | 2017-10-23 08:25 | Infectious Diseases Prog Note ---
Assessment/Plan Assessment/Plan 36 year old HIV/AIDS positive male who presented to the [facility] ED with poor appetite, nausea and vomiting and fever to 102. Sepsis - Castleman's PNA, KS, other infection (TB?) 10/22/17- CT show reticular opacity and significant lymphadenopathy 11/21/16 - Quantiferon negative (Out Side lab) Fever up to 102 - Resolving KS/ Castlemans's disease S/P Chemo ending 07/17/17 Last PET 08/12/17 - show stable/not worsening lymphadenopathy HIV - On Tivicay and Descovy and Bactrim HIV MD Dr. Carr No Hx of resistance. Was on Truvada Reyetaz and Norvir before 09/01/17 - CD4 192 and VL - ND (Out Side labs) Has been above 200 in the past. Came down with Chemo Chronic Hep B, VL <15 09/01/17 KS/ Castlemans's disease - Reported to be in remission S/P Chemo ending 07/17/17 Last PET 08/12/17 - show stable/not worsening lymphadenopathy REENA DVT - On Enoxaparin Anemia P: Continue Azithromycin and Cefepime and Bactrim for now Restart Home HIV meds Tivicay and Descovy - f/u B/U/S Cx and AFB - - Monitor CBC and Temps - Recommend Hem/Oncology consult for evaluation of recurrence of Castleman's We will continue to follow the patient with you. Subjective Allergies: Coded Allergies: No Known Allergies (Unverified , 10/21/17) Subjective Patient reports feeling better No fevers this morning Left leg pain. Objective Vital Signs Last 24 Hour Vital Signs Date Time Temp Pulse Resp B/P (MAP) Pulse Ox O2 Delivery O2 Flow Rate FiO2 10/23/17 06:00 98.9 108 27 94/51 (65) 98 98.9 10/23/17 05:00 110 28 94/57 (69) 97 10/23/17 04:00 115 28 92/50 (64) 97 10/23/17 04:00 115 10/23/17 04:00 Room Air 10/23/17 03:00 112 28 94/57 (69) 97 10/23/17 02:00 115 29 101/58 (72) 99 9/6/18 01:00 118 27 97/51 (66) 100 10/23/17 00:00 99.6 116 26 104/61 (75) 96 99.6 10/23/17 00:00 Room Air 10/23/17 00:00 117 10/22/17 23:00 115 29 102/60 (74) 100 10/22/17 22:13 123 20 104/70 (81) 99 10/22/17 22:00 120 20 110/53 (72) 99 10/22/17 21:32 97.6 10/22/17 21:01 97.8 10/22/17 21:00 123 20 104/70 (81) 99 10/22/17 21:00 Room Air 10/22/17 20:00 97.8 125 20 104/64 (77) 99 97.8 10/22/17 20:00 121 10/22/17 20:00 Room Air 10/22/17 16:00 130 10/22/17 16:00 Room Air 10/22/17 15:00 99.0 131 20 122/70 (87) 99 99.0 10/22/17 14:00 129 23 114/62 (79) 100 10/22/17 13:00 133 24 109/70 (83) 100 10/22/17 12:42 100.4 10/22/17 12:12 100.4 10/22/17 12:06 132 20 96 Room Air 21 10/22/17 12:00 130 10/22/17 12:00 137 21 123/76 (92) 100 10/22/17 12:00 Room Air 10/22/17 11:45 126 18 95 Room Air 21 10/22/17 11:45 126 20 Room Air 21 10/22/17 11:00 129 20 115/70 (85) 100 10/22/17 10:00 131 22 115/70 (85) 97 10/22/17 09:00 127 22 105/65 (78) 98 10/22/17 09:00 Room Air Height (Feet): 6 Height (Inches): 2.00 Weight (Pounds): 152 Objective GENERAL: Thin male, NAD, Sitting in bed HEENT: NCAT, MMM, EOMI left eye with some deviation (Not new per patient) CARDIOVASCULAR: RRR, S1, S2, No M/R/G LUNGS: CTAB, No W/C, No chest pain on palpation, Axillary or cervical lymph nodes found ABDOMEN: Soft, NT, ND, +BS, No CVA tenderness or back pain, Pain in the left inguinal region with some lymphadenapothy EXTREMITIES: No cyanosis, clubbing. Pulses 1+ DP, 2+ Rad B/L,Left foot and leg with edema to knee (no warmth but some what painful), Right foot with edema SKIN: Multiple dark skin lesion/crusting of feet and shins B/L, NEUROLOGIC: A/Ox4, Grossly non focal Laboratory Tests Test 10/22/17 08:40 10/22/17 08:55 10/22/17 10:05 10/22/17 19:00 Urine Color Yellow Urine Appearance Clear Urine pH 5 (4.5-8.0) Urine Specific [place] 1.015 (1.005-1.035) Urine Protein 2+ (NEGATIVE) H Urine Glucose (UA) Negative (NEGATIVE) Urine Ketones 1+ (NEGATIVE) H Urine Blood 2+ (NEGATIVE) H Urine Nitrite Negative (NEGATIVE) Urine Bilirubin Negative (NEGATIVE) Urine Urobilinogen 1 MG/DL (0.0-1.0) H Urine Leukocyte Esterase Negative (NEGATIVE) Urine RBC 2-4 /HPF (0 - 0) H Urine WBC 0 /HPF (0 - 0) Urine Squamous Epithelial Cells Occasional /LPF Urine Amorphous Sediment Occasional /LPF (NONE) Urine Bacteria Occasional /HPF (NONE) Urine Eosinophils None seen (NONE SEEN) Urine Random Sodium 41 mmol/L (20-110) Urine Potassium Timed 31 mmol/L (12-62) Arterial Blood pH 7.390 (7.350-7.450) Arterial Blood Partial Pressure CO2 39.0 mmHg (35.0-45.0) Arterial Blood Partial Pressure O2 72.0 mmHg (75.0-100.0) L Arterial Blood HCO3 23.1 mmol/L (22.0-26.0) Arterial Blood Oxygen Saturation 93.9 % (92.0-98.0) Arterial Blood Base Excess -1.6 Shayne Test Positive White Blood Count 9.0 K/UL (4.8-10.8) Red Blood Count 3.61 M/UL (4.70-6.10) L Hemoglobin 11.3 G/DL (14.2-18.0) L Hematocrit 33.0 % (42.0-52.0) L Mean Corpuscular Volume 91 FL (80-99) Mean Corpuscular Hemoglobin 31.3 PG (27.0-31.0) H Mean Corpuscular Hemoglobin Concent 34.2 G/DL (32.0-36.0) Red Cell Distribution Width 13.5 % (11.6-14.8) Platelet Count 223 K/UL (150-450) Mean Platelet Volume 5.2 FL (6.5-10.1) L Neutrophils (%) (Auto) % (45.0-75.0) Lymphocytes (%) (Auto) % (20.0-45.0) Monocytes (%) (Auto) % (1.0-10.0) Eosinophils (%) (Auto) % (0.0-3.0) Basophils (%) (Auto) % (0.0-2.0) Differential Total Cells Counted 100 Neutrophils % (Manual) 86 % (45-75) H Lymphocytes % (Manual) 6 % (20-45) L Monocytes % (Manual) 3 % (1-10) Eosinophils % (Manual) 5 % (0-3) H Basophils % (Manual) 0 % (0-2) Band Neutrophils 0 % (0-8) Platelet Estimate Adequate Platelet Morphology Normal Hypochromasia 1+ Anisocytosis 1+ Erythrocyte Sedimentation Rate 105 MM/HR (0-15) H Reticulocyte Count 0.9 % (0.0-2.0) Prothrombin Time 11.8 SEC (9.30-11.50) H Prothromb Time International Ratio 1.1 (0.9-1.1) Activated Partial Thromboplast Time 37 SEC (23-33) H Lactic Acid Level 1.50 mmol/L (0.4-2.0) Uric Acid 4.3 MG/DL (2.6-7.2) Iron Level 16 ug/dL (50-175) L Total Iron Binding Capacity 96 ug/dL (250-450) L Percent Iron Saturation 17 % (15-50) Unsaturated Iron Binding 80 ug/dL (112-346) L Lactate Dehydrogenase 141 U/L (81-234) Total Creatine Kinase 724 U/L (26-308) H Carcinoembryonic Antigen 0.9 ng/mL (0.0-4.7) Vitamin B12 Level 464 PG/ML (193-986) Folate 5.3 NG/ML (8.6-58.9) L Blastomyces Ab Immunodiffusion Pending Histoplasma Mycelial Antibody Pending Histoplasma Antibody w Mycelial Ag Pending Histoplasma Antibody with Yeast Ag Pending TB Test (T-Spot) Pending TB Test Nil Control (T-Spot) Pending TB Test Panel A (T-Spot) Pending TB Test Panel B (T-Spot) Pending TB Test Positive Control (T-Spot) Pending Cryptococcus Antigen Pending Test 10/23/17 04:30 White Blood Count 9.4 K/UL (4.8-10.8) Red Blood Count 2.79 M/UL (4.70-6.10) L Hemoglobin 8.9 G/DL (14.2-18.0) L Hematocrit 25.8 % (42.0-52.0) L Mean Corpuscular Volume 93 FL (80-99) Mean Corpuscular Hemoglobin 32.0 PG (27.0-31.0) H Mean Corpuscular Hemoglobin Concent 34.6 G/DL (32.0-36.0) Red Cell Distribution Width 13.6 % (11.6-14.8) Platelet Count 225 K/UL (150-450) Mean Platelet Volume 5.6 FL (6.5-10.1) L Neutrophils (%) (Auto) 82.1 % (45.0-75.0) H Lymphocytes (%) (Auto) 9.9 % (20.0-45.0) L Monocytes (%) (Auto) 2.9 % (1.0-10.0) Eosinophils (%) (Auto) 5.0 % (0.0-3.0) H Basophils (%) (Auto) 0.1 % (0.0-2.0) Current Medications Medications (Trade) Dose Ordered Sig/Yessica Route PRN Reason Start Time Stop Time Status Last Admin Dose Admin Acetaminophen (Tylenol) 650 mg Q6H PRN ORAL Mild Pain/Temp > 100.5 10/21/17 22:30 11/20/17 22:29 10/22/17 12:12 Acetaminophen/ Hydrocodone Bitart ([place] 5/325) 1 tab Q6H PRN ORAL For Moderate Pain(4-6) 10/22/17 11:00 10/28/17 22:29 Azithromycin (Zithromax) 250 mg Q24H ORAL 10/23/17 15:00 10/30/17 14:59 Cefepime HCl 1 gm/ Dextrose 55 ml @ 110 mls/hr EVERY 12 HOURS IVPB 10/22/17 09:00 10/29/17 08:59 10/22/17 20:49 Dolutegravir Sodium (Tivicay) 50 mg DAILY ORAL 10/23/17 09:00 11/22/17 08:59 UNV Emtricitabine/ Tenofovir (Truvada 200/ 300mg) 1 tab DAILY ORAL 10/23/17 09:00 11/22/17 08:59 UNV Iopamidol (Isovue-300 100ml) 100 ml NOW PRN INJ Radiology Procedure 10/22/17 09:30 10/24/17 09:30 Lorazepam (Ativan) 1 mg Q6H PRN ORAL For Anxiety 10/22/17 11:00 10/29/17 10:59 Mirtazapine (Remeron) 15 mg BEDTIME ORAL 10/22/17 21:00 11/21/17 20:59 10/22/17 20:50 Morphine Sulfate (Morphine Sulfate) 2 mg Q4H PRN IVP For Severe Pain(7-10) 10/22/17 10:45 10/29/17 10:44 10/22/17 21:01 Pantoprazole (Protonix) 40 mg EVERY 12 HOURS IVP 10/22/17 21:00 11/21/17 20:59 10/22/17 20:49 Potassium Chloride 10 meq/ Sodium Chloride 1,005 ml @ 100 mls/hr Q10H3M IV 10/22/17 11:00 11/21/17 10:59 10/23/17 00:14 Sodium Chloride (Sodium Chloride Dey-Michael 3%) 4 ml ONCE INH 10/23/17 08:00 10/23/17 12:00 Trimethoprim/ Sulfamethoxazole (Bactrim-DS) 1 tab Q12HR ORAL 10/22/17 09:00 10/29/17 08:59 10/22/17 20:50 Sterling Ortiz MD Oct 23, 2017 08:25
[2017-10-23] MEDS: Pantoprazole Inj IVP SCH ×2 (08:43→21:20)
[2017-10-23] MEDS: Cefepime 1gm in D5W 55ml IVPB SCH (08:43)
[2017-10-23] MEDS: Bactrim-DS 1 tab ORAL SCH ×2 (08:43→21:20)
[2017-10-23] MEDS ORDERED: Isovue-300 100ml vial INJ PRN (09:30)
--- NOTE | 2017-10-23 10:01 | Pulmonolgy Critical Care Note ---
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 - Objective Last 24 Hour Vital Signs Date Time Temp Pulse Resp B/P (MAP) Pulse Ox O2 Delivery O2 Flow Rate FiO2 10/23/17 09:00 108 25 116/73 (87) 99 10/23/17 08:00 100.2 104 26 102/55 (71) 98 100.2 10/23/17 08:00 110 10/23/17 07:00 104 26 102/54 (70) 98 10/23/17 06:00 98.9 108 27 94/51 (65) 98 98.9 10/23/17 05:00 110 28 94/57 (69) 97 10/23/17 04:00 115 28 92/50 (64) 97 10/23/17 04:00 115 10/23/17 04:00 Room Air 10/23/17 03:00 112 28 94/57 (69) 97 10/23/17 02:00 115 29 101/58 (72) 99 10/23/17 01:00 118 27 97/51 (66) 100 10/23/17 00:00 99.6 116 26 104/61 (75) 96 99.6 10/23/17 00:00 Room Air 10/23/17 00:00 117 10/22/17 23:00 115 29 102/60 (74) 100 10/22/17 22:13 123 20 104/70 (81) 99 10/22/17 22:00 120 20 110/53 (72) 99 10/22/17 21:32 97.6 10/22/17 21:01 97.8 10/22/17 21:00 123 20 104/70 (81) 99 10/22/17 21:00 Room Air 10/22/17 20:00 97.8 125 20 104/64 (77) 99 97.8 10/22/17 20:00 121 10/22/17 20:00 Room Air 10/22/17 16:00 130 10/22/17 16:00 Room Air 10/22/17 15:00 99.0 131 20 122/70 (87) 99 99.0 10/22/17 14:00 129 23 114/62 (79) 100 10/22/17 13:00 133 24 109/70 (83) 100 10/22/17 12:42 100.4 10/22/17 12:12 100.4 10/22/17 12:06 132 20 96 Room Air 21 10/22/17 12:00 130 10/22/17 12:00 137 21 123/76 (92) 100 10/22/17 12:00 Room Air 10/22/17 11:45 126 18 95 Room Air 21 10/22/17 11:45 126 20 Room Air 21 10/22/17 11:00 129 20 115/70 (85) 100 10/22/17 10:00 131 22 115/70 (85) 97 Status: awake Condition: critical HEENT: atraumatic Lungs: clear Heart: HR/BP unstable Abdomen: soft, active bowel sounds Extremities: no C/C/E, edema Micro: Microbiology Date/Time Source Procedure Growth Status 10/21/17 23:00 Rectum - Preliminary Resulted Critical Care - Subjective ROS Limited/Unobtainable: No Condition: critical EKG Rhythm: Sinus Tachycardia FI02: 21 Sputum Amount: Moderate I&O: Intake and Output 10/22/17 10/23/17 19:00 07:00 Intake Total 500 ml 1535 ml Output Total 1600 ml 900 ml Balance -1100 ml 635 ml Intake Oral 400 ml 380 ml IV Total 100 ml 1155 ml Output Urine Total 1600 ml 900 ml # Voids 1 2 # Bowel Movements 1 CXR: ct reviewed, no cavity, Labs: Laboratory Tests Test 10/22/17 10:05 10/22/17 19:00 10/23/17 04:30 White Blood Count 9.0 K/UL (4.8-10.8) 9.4 K/UL (4.8-10.8) Red Blood Count 3.61 M/UL (4.70-6.10) L 2.79 M/UL (4.70-6.10) L Hemoglobin 11.3 G/DL (14.2-18.0) L 8.9 G/DL (14.2-18.0) L Hematocrit 33.0 % (42.0-52.0) L 25.8 % (42.0-52.0) L Mean Corpuscular Volume 91 FL (80-99) 93 FL (80-99) Mean Corpuscular Hemoglobin 31.3 PG (27.0-31.0) H 32.0 PG (27.0-31.0) H Mean Corpuscular Hemoglobin Concent 34.2 G/DL (32.0-36.0) 34.6 G/DL (32.0-36.0) Red Cell Distribution Width 13.5 % (11.6-14.8) 13.6 % (11.6-14.8) Platelet Count 223 K/UL (150-450) 225 K/UL (150-450) Mean Platelet Volume 5.2 FL (6.5-10.1) L 5.6 FL (6.5-10.1) L Neutrophils (%) (Auto) % (45.0-75.0) 82.1 % (45.0-75.0) H Lymphocytes (%) (Auto) % (20.0-45.0) 9.9 % (20.0-45.0) L Monocytes (%) (Auto) % (1.0-10.0) 2.9 % (1.0-10.0) Eosinophils (%) (Auto) % (0.0-3.0) 5.0 % (0.0-3.0) H Basophils (%) (Auto) % (0.0-2.0) 0.1 % (0.0-2.0) Differential Total Cells Counted 100 Neutrophils % (Manual) 86 % (45-75) H Lymphocytes % (Manual) 6 % (20-45) L Monocytes % (Manual) 3 % (1-10) Eosinophils % (Manual) 5 % (0-3) H Basophils % (Manual) 0 % (0-2) Band Neutrophils 0 % (0-8) Platelet Estimate Adequate Platelet Morphology Normal Hypochromasia 1+ Anisocytosis 1+ Erythrocyte Sedimentation Rate 105 MM/HR (0-15) H Reticulocyte Count 0.9 % (0.0-2.0) Prothrombin Time 11.8 SEC (9.30-11.50) H Prothromb Time International Ratio 1.1 (0.9-1.1) Activated Partial Thromboplast Time 37 SEC (23-33) H Lactic Acid Level 1.50 mmol/L (0.4-2.0) Uric Acid 4.3 MG/DL (2.6-7.2) Iron Level 16 ug/dL (50-175) L Total Iron Binding Capacity 96 ug/dL (250-450) L Percent Iron Saturation 17 % (15-50) Unsaturated Iron Binding 80 ug/dL (112-346) L Lactate Dehydrogenase 141 U/L (81-234) Total Creatine Kinase 724 U/L (26-308) H Carcinoembryonic Antigen 0.9 ng/mL (0.0-4.7) Vitamin B12 Level 464 PG/ML (193-986) Folate 5.3 NG/ML (8.6-58.9) L Blastomyces Ab Immunodiffusion Pending Histoplasma Mycelial Antibody Pending Histoplasma Antibody w Mycelial Ag Pending Histoplasma Antibody with Yeast Ag Pending TB Test (T-Spot) Pending TB Test Nil Control (T-Spot) Pending TB Test Panel A (T-Spot) Pending TB Test Panel B (T-Spot) Pending TB Test Positive Control (T-Spot) Pending Cryptococcus Antigen Pending Ya Hester MD Oct 23, 2017 10:01
[2017-10-23] MEDS: Sodium Chloride 3% 4ml Nebul Soln INH SCH ×2 (11:00→11:51)
[2017-10-23] MEDS ORDERED: TRUVADA ORAL SCH (12:00)
[2017-10-23] MEDS ORDERED: LORazepam 1mg tab ORAL PRN (14:40)
[2017-10-23] MEDS ORDERED: Norco 5mg/325mg tab ORAL PRN ×2 (14:40→19:45)
[2017-10-23] MEDS ORDERED: Morphine Sulfate 2mg/ml Inj IVP PRN ×2 (14:40→20:00)
[2017-10-23] MEDS ORDERED: Azithromycin 250mg tab ORAL SCH (15:00)
[2017-10-23] MEDS: Azithromycin 250mg tab ORAL SCH (15:04)
--- NOTE | 2017-10-23 15:56 | Diagnostic Imaging Report ---
APPROVED REPORT CPT Code: 86044 Present Symptoms Comments: BILATERAL LEGS PAIN. BILATERAL: Imaging reveals a patent deep venous system bilaterally. There is no evidence of thrombus within the femoral, popliteal or tibial segments. The greater saphenous veins are also within normal limits. Doppler indicates normal spontaneous flow within these segments.
--- NOTE | 2017-10-23 16:52 | Diagnostic Imaging Report ---
Indication: Abdominal pain Technique: Continuous helical transaxial imaging of the abdomen and pelvis was obtained from the lung bases to the pubic symphysis. No intravenous contrast was administered. Coronal 2-D reformats were also obtained. Automatic Exposure Control was utilized. Total Dose length Product (DLP): 646.[address] Dose Index Volume (CTDIvol): 11.36 mGy Comparison: none Findings: The study is limited due to the lack of intravenous contrast. There is soft tissue prominence in the area of the pancreatic head with peripancreatic stranding likely present. The pancreas is probably enlarged but difficult to tell because of the lack of contrast material. Peripancreatic adenopathy is a consideration. Differential includes underlying pancreatic mass or pancreatitis. Please correlate clinically. The study is very limited and should be repeated with contrast material to assess the pancreas. There is soft tissue stranding of fat and trace ascites present within the abdomen and especially in the retroperitoneal region. There is minimal bilateral hydronephrosis. Gallstone is present noted. No evidence of bowel obstruction. Moderate fecal retention demonstrated. Anasarca noted. Lymphadenopathy within the inguinal and iliac regions demonstrated. Suggestion of retroperitoneal adenopathy also demonstrated. Small bilateral pleural effusions demonstrated. Trace pericardial effusion demonstrated. IMPRESSION: Limited evaluation due to the nonadministration of intravenous contrast which should be administered and recommend repeating the CT. Abnormal appearance of the pancreas which appears enlarged. Findings could be on the basis of pancreatitis versus pancreatic tumor versus peripancreatic adenopathy. Evidence of adenopathy involving the iliac, inguinal regions within the pelvis. Retroperitoneal adenopathy also suspected. Findings may be neoplastic or inflammatory. Mild bilateral hydronephrosis paraspinous anasarca Small bilateral pleural effusions Trace pericardial effusion. Gallstone. Moderate fecal retention. The CT scanner at [facility] is accredited by the [employer] and the scans are performed using dose optimization techniques as appropriate to a performed exam including Automatic Exposure control.
--- NOTE | 2017-10-23 19:36 | Internal Med Progress Note ---
Subjective Date of Service: Oct 23, 2017 Physician Name PadronAdam Attending Physician Alberto Gtz MD Current Medications Medications (Trade) Dose Ordered Sig/Yessica Route PRN Reason Start Time Stop Time Status Last Admin Dose Admin Acetaminophen (Tylenol) 650 mg Q6H PRN ORAL Mild Pain/Temp > 100.5 10/23/17 14:40 11/20/17 14:39 Acetaminophen/ Hydrocodone Bitart ([place] 5/325) 1 tab Q6H PRN ORAL For Moderate Pain(4-6) 10/23/17 14:40 10/28/17 14:39 Azithromycin (Zithromax) 250 mg Q24H ORAL 10/23/17 15:00 10/30/17 14:59 10/23/17 15:04 Barium Sulfate (Readi-Cat 2) 450 ml NOW PRN ORAL Radiology Procedure 10/23/17 16:15 10/25/17 16:04 Cefepime HCl 1 gm/ Dextrose 55 ml @ 110 mls/hr EVERY 12 HOURS IVPB 10/23/17 21:00 10/29/17 08:59 Iopamidol (Isovue-300 100ml) 100 ml NOW PRN INJ Radiology Procedure 10/23/17 09:30 10/24/17 16:00 Lorazepam (Ativan) 1 mg Q6H PRN ORAL For Anxiety 10/23/17 14:40 10/29/17 14:39 Mirtazapine (Remeron) 15 mg BEDTIME ORAL 10/23/17 21:00 11/21/17 20:59 Morphine Sulfate (Morphine Sulfate) 2 mg Q4H PRN IVP For Severe Pain(7-10) 10/23/17 14:40 10/29/17 14:39 10/23/17 15:04 Pantoprazole (Protonix) 40 mg EVERY 12 HOURS IVP 10/23/17 21:00 11/21/17 20:59 Patient Own Medication (Patient's Own Med) 1 ea DAILY ORAL 10/24/17 09:00 11/22/17 11:59 Patient Own Medication (Patient's Own Med) 1 ea DAILY ORAL 10/24/17 09:00 11/22/17 11:59 Potassium Chloride 10 meq/ Sodium Chloride 1,005 ml @ 100 mls/hr Q10H3M IV 10/23/17 14:30 11/21/17 10:59 10/23/17 14:50 Trimethoprim/ Sulfamethoxazole (Bactrim-DS) 1 tab Q12HR ORAL 10/23/17 21:00 10/29/17 08:59 Allergies: Coded Allergies: No Known Allergies (Unverified , 10/21/17) ROS Limited/Unobtainable: No Constitutional: Reports: no symptoms HEENT: Reports: no symptoms Cardiovascular: Reports: no symptoms Respiratory: Reports: no symptoms Gastrointestinal/Abdominal: Reports: no symptoms Genitourinary: Reports: no symptoms Neurologic/Psychiatric: Reports: no symptoms Subjective 36 YO M admitted with fever and chills. Now sepsis. Cover for Int Med-Dr Gtz. C/O left foot and ankle pain/swelling Objective Last Vital Signs Date Time Temp Pulse Resp B/P (MAP) Pulse Ox O2 Delivery O2 Flow Rate FiO2 10/23/17 16:13 99.9 106 20 114/66 (82) 99 99.9 10/23/17 12:00 Room Air 10/22/17 12:06 21 10/21/17 22:46 2.0 General Appearance: alert, cachetic, thin EENT: PERRL/EOMI, normal ENT inspection Neck: non-tender, normal alignment, supple, normal inspection Cardiovascular: normal peripheral pulses, normal rate, regular rhythm, no gallop/murmur, no JVD Respiratory/Chest: chest wall non-tender, lungs clear, normal breath sounds, no respiratory distress, no accessory muscle use Abdomen: normal bowel sounds, non tender, soft, no organomegaly, no mass Extremities: normal range of motion, other - swelling left foot and ankle Edema: moderate edema Neurologic: software support representative II-XII grossly normal, no motor/sensory deficits Skin: normal pigmentation, warm/dry Laboratory Tests Test 10/23/17 04:30 White Blood Count 9.4 K/UL (4.8-10.8) Red Blood Count 2.79 M/UL (4.70-6.10) L Hemoglobin 8.9 G/DL (14.2-18.0) L Hematocrit 25.8 % (42.0-52.0) L Mean Corpuscular Volume 93 FL (80-99) Mean Corpuscular Hemoglobin 32.0 PG (27.0-31.0) H Mean Corpuscular Hemoglobin Concent 34.6 G/DL (32.0-36.0) Red Cell Distribution Width 13.6 % (11.6-14.8) Platelet Count 225 K/UL (150-450) Mean Platelet Volume 5.6 FL (6.5-10.1) L Neutrophils (%) (Auto) 82.1 % (45.0-75.0) H Lymphocytes (%) (Auto) 9.9 % (20.0-45.0) L Monocytes (%) (Auto) 2.9 % (1.0-10.0) Eosinophils (%) (Auto) 5.0 % (0.0-3.0) H Basophils (%) (Auto) 0.1 % (0.0-2.0) Ferritin 595 NG/ML (8-388) H Microbiology Date/Time Source Procedure Growth Status 10/22/17 12:00 Sputum Not Specified AFB Specimen Processing Tissue - Final Resulted 10/22/17 12:00 Sputum Not Specified Acid Fast Bacilli Smear - Final Resulted 10/22/17 12:00 Sputum Not Specified Acid Fast Bacilli Culture Pending Resulted 10/21/17 23:00 Nasal Nares MRSA Culture - Final Staphylococcus Aureus - Mrsa Complete 10/22/17 09:15 Urine,Clean Catch Urine Culture - Preliminary Resulted 10/21/17 23:00 Rectum - Preliminary Resulted Intake and Output 10/22/17 10/23/17 19:00 07:00 Intake Total 500 ml 1535 ml Output Total 1600 ml 900 ml Balance -1100 ml 635 ml Intake Oral 400 ml 380 ml IV Total 100 ml 1155 ml Output Urine Total 1600 ml 900 ml # Voids 1 2 # Bowel Movements 1 Assessment/Plan Problem List: (1) Fever Assessment & Plan: Resolved. continue antibiotics per ID (2) Nausea & vomiting (3) Sepsis Assessment & Plan: ?pneumonia vs left leg cellulitis source? 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
[2017-10-23] MEDS ORDERED: Cefepime HCl 1 GM in D5W 55 ML IVPB SCH (21:00)
[2017-10-23] MEDS: Morphine Sulfate 4mg/ml Inj (IV USE ONLY) IVP PRN (21:21)
--- NOTE | 2017-10-23 21:31 | Consultation ---
Consult Note Consult Note Hematology Consult DOS: 10/23/17 Referring physician: Dr. Gtz Reason for Consultation: Castleman's disease ID Mr. Hewitt is a 36 year old HIV/AIDS positive male who presented to the [place] ED with poor appetite, nausea and vomiting. He also had fever and chills. He was transferred from [place]. He had a HR of 180 on arrival and a fever of 102. He has had no leukocytosis and is on RA. CT chest pending. CXR shows Surgical clip versus artifact seen in the right axilla. Somewhat prominent interstitial markings are seen in the right lower lung. No definite acute infiltrates, effusions, or congestion otherwise. He was placed on Bactrim and Cefepime. Imaging of CT Chest and Abd/Pelvis has been reviewed as well. ID consulted for HIV care. He has been on tivicay and descovy - No Hx of resistance. Was on Truvada Reyetaz and Norvir before. CD4 192 and VL 09/01/17. Has been above 200 in the past. Came down with Chemo. Also has chronic Hep B, VL <15 09/01/17. Last PET 08/12/17 - show stable/not worsening lymphadenopathy. Last chemo was 07/17/17. Quantiferon negative 11/21/16. The patient presented with fever with his intial Dx of Castlemans's HIV Hx Dx 1999 Started on meds at that time. Says he has been taking them since. Does not know VL, CD4 counts or med names Per his mother is on Tivicay, Truvada and Bactrim. PMHx HIV Castlemans's disease/Kaposi Sarcoma, last chemo one month (got about 9 months of it on and off) Blood Clot in left groin - On Enoxaparin BID at home PSHx Axillary LN Bx x 2 SocHx Cig/MJ No IVDU or EtOH FamHx Lung CA - Grandmother Allergies: Coded Allergies: No Known Allergies (Unverified , 10/21/17) Patient History Healthcare decision maker N Resuscitation status Full Code Advanced Directive on File No Review of Systems All Other Systems: negative except mentioned in HPI Physical Exam Last 24 Hour Vital Signs Date Time Temp Pulse Resp B/P (MAP) Pulse Ox O2 Delivery O2 Flow Rate FiO2 10/23/17 16:13 99.9 106 20 114/66 (82) 99 99.9 10/23/17 16:00 116 10/23/17 15:34 98.7 10/23/17 15:04 98.7 10/23/17 13:00 98.7 104 23 92/57 (69) 96 98.7 10/23/17 12:00 110 25 107/76 (86) 100 10/23/17 12:00 Room Air 10/23/17 11:00 109 26 95/62 (73) 100 10/23/17 10:00 111 24 99/66 (77) 99 10/23/17 09:00 108 25 116/73 (87) 99 10/23/17 09:00 Room Air 10/23/17 08:00 100.2 104 26 102/55 (71) 98 100.2 10/23/17 08:00 110 10/23/17 08:00 Room Air 10/23/17 07:00 104 26 102/54 (70) 98 10/23/17 06:00 98.9 108 27 94/51 (65) 98 98.9 10/23/17 05:00 110 28 94/57 (69) 97 10/23/17 04:00 115 28 92/50 (64) 97 10/23/17 04:00 115 10/23/17 04:00 Room Air 10/23/17 03:00 112 28 94/57 (69) 97 10/23/17 02:00 115 29 101/58 (72) 99 10/23/17 01:00 118 27 97/51 (66) 100 10/23/17 00:00 99.6 116 26 104/61 (75) 96 99.6 10/23/17 00:00 Room Air 10/23/17 00:00 117 10/22/17 23:00 115 29 102/60 (74) 100 10/22/17 22:13 123 20 104/70 (81) 99 10/22/17 22:00 120 20 110/53 (72) 99 10/22/17 21:32 97.6 Intake and Output 10/21/17 10/22/17 19:00 07:00 Intake Total 870 ml Output Total 800 ml Balance 70 ml Intake Oral 270 ml IV Total 600 ml Output Urine Total 800 ml # Voids 4 Laboratory Tests Test 10/22/17 00:00 10/22/17 06:00 10/22/17 08:40 10/22/17 08:55 HIV-1 Antibody Pending HIV-2 Antibody Pending White Blood Count Pending Red Blood Count 3.24 M/UL (4.70-6.10) L Hemoglobin 10.3 G/DL (14.2-18.0) L Hematocrit 30.4 % (42.0-52.0) L Mean Corpuscular Volume 94 FL (80-99) Mean Corpuscular Hemoglobin 31.7 PG (27.0-31.0) H Mean Corpuscular Hemoglobin Concent 33.8 G/DL (32.0-36.0) Red Cell Distribution Width 13.8 % (11.6-14.8) Platelet Count 214 K/UL (150-450) Mean Platelet Volume 5.1 FL (6.5-10.1) L Neutrophils (%) (Auto) % (45.0-75.0) Lymphocytes (%) (Auto) % (20.0-45.0) Monocytes (%) (Auto) % (1.0-10.0) Eosinophils (%) (Auto) % (0.0-3.0) Basophils (%) (Auto) % (0.0-2.0) Differential Total Cells Counted 100 Neutrophils % (Manual) 85 % (45-75) H Lymphocytes % (Manual) 6 % (20-45) L Monocytes % (Manual) 4 % (1-10) Eosinophils % (Manual) 2 % (0-3) Basophils % (Manual) 0 % (0-2) Band Neutrophils 3 % (0-8) Lymphocytes Pending Platelet Estimate Adequate Platelet Morphology Normal Hypochromasia 1+ Anisocytosis 1+ Sodium Level 134 MMOL/L (136-145) L Potassium Level 3.0 MMOL/L (3.5-5.1) L Chloride Level 102 MMOL/L (98-107) Carbon Dioxide Level 24 MMOL/L (21-32) Anion Gap 8 mmol/L (5-15) Blood Urea Nitrogen 11 mg/dL (7-18) Creatinine 1.4 MG/DL (0.55-1.30) H Estimat Glomerular Filtration Rate > 60 mL/min (>60) Glucose Level 92 MG/DL (74-106) Calcium Level 7.9 MG/DL (8.5-10.1) L Phosphorus Level 3.1 MG/DL (2.5-4.9) Magnesium Level 1.1 MG/DL (1.8-2.4) L Total Bilirubin 1.0 MG/DL (0.2-1.0) Aspartate Amino Transf (AST/SGOT) 33 U/L (15-37) Alanine Aminotransferase (ALT/SGPT) 19 U/L (12-78) Alkaline Phosphatase 65 U/L (46-116) Lactate Dehydrogenase 279 U/L (81-234) H Total Protein 7.2 G/DL (6.4-8.2) Albumin 1.8 G/DL (3.4-5.0) L Globulin 5.4 g/dL Albumin/Globulin Ratio 0.3 (1.0-2.7) L Percent CD3 Cells Pending Absolute CD3 Count Pending Percent CD4 Cells Pending Absolute CD4 Count Pending T-Lymphocyte CD4/CD8 Ratio Pending Percent CD8 Cells Pending Absolute CD8 Count Pending HIV (1&2) Antibody Rapid Preliminary positive Urine Color Yellow Urine Appearance Clear Urine pH 5 (4.5-8.0) Urine Specific [place] 1.015 (1.005-1.035) Urine Protein 2+ (NEGATIVE) H Urine Glucose (UA) Negative (NEGATIVE) Urine Ketones 1+ (NEGATIVE) H Urine Blood 2+ (NEGATIVE) H Urine Nitrite Negative (NEGATIVE) Urine Bilirubin Negative (NEGATIVE) Urine Urobilinogen 1 MG/DL (0.0-1.0) H Urine Leukocyte Esterase Negative (NEGATIVE) Urine RBC 2-4 /HPF (0 - 0) H Urine WBC 0 /HPF (0 - 0) Urine Squamous Epithelial Cells Occasional /LPF Urine Amorphous Sediment Occasional /LPF (NONE) Urine Bacteria Occasional /HPF (NONE) Urine Eosinophils None seen (NONE SEEN) Urine Random Sodium 41 mmol/L (20-110) Urine Potassium Timed 31 mmol/L (12-62) Arterial Blood pH 7.390 (7.350-7.450) Arterial Blood Partial Pressure CO2 39.0 mmHg (35.0-45.0) Arterial Blood Partial Pressure O2 72.0 mmHg (75.0-100.0) L Arterial Blood HCO3 23.1 mmol/L (22.0-26.0) Arterial Blood Oxygen Saturation 93.9 % (92.0-98.0) Arterial Blood Base Excess -1.6 Shayne Test Positive Test 10/22/17 10:05 White Blood Count 9.0 K/UL (4.8-10.8) Red Blood Count 3.61 M/UL (4.70-6.10) L Hemoglobin 11.3 G/DL (14.2-18.0) L Hematocrit 33.0 % (42.0-52.0) L Mean Corpuscular Volume 91 FL (80-99) Mean Corpuscular Hemoglobin 31.3 PG (27.0-31.0) H Mean Corpuscular Hemoglobin Concent 34.2 G/DL (32.0-36.0) Red Cell Distribution Width 13.5 % (11.6-14.8) Platelet Count 223 K/UL (150-450) Mean Platelet Volume 5.2 FL (6.5-10.1) L Neutrophils (%) (Auto) % (45.0-75.0) Lymphocytes (%) (Auto) % (20.0-45.0) Monocytes (%) (Auto) % (1.0-10.0) Eosinophils (%) (Auto) % (0.0-3.0) Basophils (%) (Auto) % (0.0-2.0) Differential Total Cells Counted 100 Neutrophils % (Manual) 86 % (45-75) H Lymphocytes % (Manual) 6 % (20-45) L Monocytes % (Manual) 3 % (1-10) Eosinophils % (Manual) 5 % (0-3) H Basophils % (Manual) 0 % (0-2) Band Neutrophils 0 % (0-8) Platelet Estimate Adequate Platelet Morphology Normal Hypochromasia 1+ Anisocytosis 1+ Erythrocyte Sedimentation Rate 105 MM/HR (0-15) H Reticulocyte Count 0.9 % (0.0-2.0) Prothrombin Time 11.8 SEC (9.30-11.50) H Prothromb Time International Ratio 1.1 (0.9-1.1) Activated Partial Thromboplast Time 37 SEC (23-33) H Lactic Acid Level 1.50 mmol/L (0.4-2.0) Uric Acid 4.3 MG/DL (2.6-7.2) Iron Level 16 ug/dL (50-175) L Total Iron Binding Capacity 96 ug/dL (250-450) L Percent Iron Saturation 17 % (15-50) Unsaturated Iron Binding 80 ug/dL (112-346) L Lactate Dehydrogenase 141 U/L (81-234) Total Creatine Kinase 724 U/L (26-308) H Carcinoembryonic Antigen Pending Vitamin B12 Level 464 PG/ML (193-986) Folate 5.3 NG/ML (8.6-58.9) L Blastomyces Ab Immunodiffusion Pending Histoplasma Mycelial Antibody Pending Histoplasma Antibody w Mycelial Ag Pending Histoplasma Antibody with Yeast Ag Pending TB Test (T-Spot) Pending TB Test Nil Control (T-Spot) Pending TB Test Panel A (T-Spot) Pending TB Test Panel B (T-Spot) Pending TB Test Positive Control (T-Spot) Pending Current Medications Medications (Trade) Dose Ordered Sig/Yessica Route PRN Reason Start Time Stop Time Status Last Admin Dose Admin Acetaminophen (Tylenol) 650 mg Q6H PRN ORAL Mild Pain/Temp > 100.5 10/21/17 22:30 11/20/17 22:29 10/22/17 12:12 Acetaminophen/ Hydrocodone Bitart ([place] 5/325) 1 tab Q6H PRN ORAL For Moderate Pain(4-6) 10/22/17 11:00 10/28/17 22:29 Cefepime HCl 1 gm/ Dextrose 55 ml @ 110 mls/hr EVERY 12 HOURS IVPB 10/22/17 09:00 10/29/17 08:59 10/22/17 09:47 Iopamidol (Isovue-300 100ml) 100 ml NOW PRN INJ Radiology Procedure 10/22/17 09:30 10/24/17 09:30 Lorazepam (Ativan) 1 mg Q6H PRN ORAL For Anxiety 10/22/17 11:00 10/29/17 10:59 Mirtazapine (Remeron) 15 mg BEDTIME ORAL 10/22/17 21:00 11/21/17 20:59 Morphine Sulfate (Morphine Sulfate) 2 mg Q4H PRN IVP For Severe Pain(7-10) 10/22/17 10:45 10/29/17 10:44 10/22/17 11:56 Pantoprazole (Protonix) 40 mg EVERY 12 HOURS IVP 10/22/17 21:00 11/21/17 20:59 Potassium Chloride 10 meq/ Sodium Chloride 1,005 ml @ 100 mls/hr Q10H3M IV 10/22/17 11:00 11/21/17 10:59 10/22/17 11:56 Trimethoprim/ Sulfamethoxazole (Bactrim-DS) 1 tab Q12HR ORAL 10/22/17 09:00 10/29/17 08:59 10/22/17 08:32 Objective Narrative GENERAL: Thin male, NAD, Sitting in bed HEENT: NCAT, MMM, EOMI left eye with some deviation (Not new per patient) , PERRL, No scleral icterus CARDIOVASCULAR: RRR, S1, S2, No M/R/G LUNGS: CTAB, No W/C ABDOMEN: Soft, NT, ND, +BS, No CVA tenderness or back pain, Pain in the left inguinal region EXTREMITIES: No cyanosis, clubbing. Pulses 1+ DP, 2+ Rad B/L,Left foot and leg with edema to knee, Right foot with edema SKIN: Multiple dark skin lesion/crusting of feet and shins B/L, NEUROLOGIC: A/Ox4, Grossly non focal Laboratory Tests Test 10/23/17 04:30 White Blood Count 9.4 K/UL (4.8-10.8) Red Blood Count 2.79 M/UL (4.70-6.10) L Hemoglobin 8.9 G/DL (14.2-18.0) L Hematocrit 25.8 % (42.0-52.0) L Mean Corpuscular Volume 93 FL (80-99) Mean Corpuscular Hemoglobin 32.0 PG (27.0-31.0) H Mean Corpuscular Hemoglobin Concent 34.6 G/DL (32.0-36.0) Red Cell Distribution Width 13.6 % (11.6-14.8) Platelet Count 225 K/UL (150-450) Mean Platelet Volume 5.6 FL (6.5-10.1) L Neutrophils (%) (Auto) 82.1 % (45.0-75.0) H Lymphocytes (%) (Auto) 9.9 % (20.0-45.0) L Monocytes (%) (Auto) 2.9 % (1.0-10.0) Eosinophils (%) (Auto) 5.0 % (0.0-3.0) H Basophils (%) (Auto) 0.1 % (0.0-2.0) Ferritin 595 NG/ML (8-388) H Assessment/Recs: 36 year old HIV/AIDS positive male who presented to the [place] ED with poor appetite, nausea and vomiting and fever to 102. # Castlemans's disease/KS - outpatinent chemo has been received as recently as 1 month ago --> recommend to obtain VEGF, IL-6 these labs ordered but do take several days/ weeks to come back --> inflammatory makers ordered --> imaging is ordered as well --> outpatient f/u as well for futher therapy prn # Anemia of chronic disaese -- workup has been ordered, at this time pending --> esr elevated, as is crp --> transf if hgb <7 # Sepsis - PNA, KS, other infection (TB?) - CXR interstitial marking but no definite acute infiltrates, effusions, or congestion, fever up to 102 # HIV - On Tivicay and Truvada and Bactrim, Unknown CD4 adn VL --> VL pending, CD4 count ordered<100 # REENA Greatly appreciate consultation. Jean Bingham MD Oct 23, 2017 21:31
--- NOTE | 2017-10-23 22:02 | General Progress Note ---
Assessment/Plan Status: stable Assessment/Plan MDD Failure to thrive -remeron 15mg po qhs -ativan prn -provided ro/st Subjective Date patient seen: Oct 23, 2017 Neurologic/Psychiatric: Reports: anxiety, depressed, emotional problems Allergies: Coded Allergies: No Known Allergies (Unverified , 10/21/17) Subjective slept well increase appetite Objective Last 24 Hour Vital Signs Date Time Temp Pulse Resp B/P (MAP) Pulse Ox O2 Delivery O2 Flow Rate FiO2 10/23/17 16:13 99.9 106 20 114/66 (82) 99 99.9 10/23/17 16:00 116 10/23/17 15:34 98.7 10/23/17 15:04 98.7 10/23/17 13:00 98.7 104 23 92/57 (69) 96 98.7 10/23/17 12:00 110 25 107/76 (86) 100 10/23/17 12:00 Room Air 10/23/17 11:00 109 26 95/62 (73) 100 10/23/17 10:00 111 24 99/66 (77) 99 10/23/17 09:00 108 25 116/73 (87) 99 10/23/17 09:00 Room Air 10/23/17 08:00 100.2 104 26 102/55 (71) 98 100.2 10/23/17 08:00 110 10/23/17 08:00 Room Air 10/23/17 07:00 104 26 102/54 (70) 98 10/23/17 06:00 98.9 108 27 94/51 (65) 98 98.9 10/23/17 05:00 110 28 94/57 (69) 97 10/23/17 04:00 115 28 92/50 (64) 97 10/23/17 04:00 115 10/23/17 04:00 Room Air 10/23/17 03:00 112 28 94/57 (69) 97 10/23/17 02:00 115 29 101/58 (72) 99 10/23/17 01:00 118 27 97/51 (66) 100 10/23/17 00:00 99.6 116 26 104/61 (75) 96 99.6 10/23/17 00:00 Room Air 10/23/17 00:00 117 10/22/17 23:00 115 29 102/60 (74) 100 10/22/17 22:13 123 20 104/70 (81) 99 Intake and Output 10/22/17 10/23/17 19:00 07:00 Intake Total 500 ml 1535 ml Output Total 1600 ml 900 ml Balance -1100 ml 635 ml Intake Oral 400 ml 380 ml IV Total 100 ml 1155 ml Output Urine Total 1600 ml 900 ml # Voids 1 2 # Bowel Movements 1 Laboratory Tests 10/23/17 04:30: White Blood Count 9.4, Red Blood Count 2.79L, Hemoglobin 8.9L, Hematocrit 25.8L , Mean Corpuscular Volume 93, Mean Corpuscular Hemoglobin 32.0H, Mean Corpuscular Hemoglobin Concent 34.6, Red Cell Distribution Width 13.6, Platelet Count 225, Mean Platelet Volume 5.6L, Neutrophils (%) (Auto) 82.1H, Lymphocytes (%) (Auto) 9.9L, Monocytes (%) (Auto) 2.9, Eosinophils (%) (Auto) 5.0H, Basophils (%) (Auto) 0.1, Ferritin 595H Height (Feet): 6 Height (Inches): 2.00 Weight (Pounds): 152 General Appearance: no apparent distress, alert Neurologic: oriented x 3, responsive, depressed affect Rajinder Hebert MD Oct 23, 2017 22:02
[2017-10-24] VITALS: BP 158/61
[2017-10-24] MEDS: Potassium Chloride 10 MEQ in NS 1000ml 1,000 ML IV SCH ×2 (00:43→10:31)
[2017-10-24 04:00] VITALS: BP 110/60
[2017-10-24] MEDS: Morphine Sulfate 4mg/ml Inj (IV USE ONLY) IVP PRN ×4 (05:07→20:38)
--- NOTE | 2017-10-24 07:56 | Infectious Diseases Prog Note ---
Assessment/Plan Assessment/Plan 36 year old HIV/AIDS positive male who presented to the [place] ED with poor appetite, nausea and vomiting and fever to 102. 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 Carr No Hx of resistance. Was on Truvada Reyetaz and Norvir before 09/01/17 - CD4 192 and VL - ND (Out Side labs) Has been above 200 in the past. Came down with Chemo Chronic Hep B, VL <15 09/01/17 DVT - On Enoxaparin 10/23/17 - Dopler Negative for DVT Anemia REENA P: Start Ceftriaxone D/C Cefepime #2 - P. a. Unlikely Continue Azithromycin #2 and Bactrim #2 for now Continue Home HIV meds Tivicay and Descovy - f/u B/U/S Cx and AFB - Monitor CBC and Temps - f/u serologies We will continue to follow the patient with you. Subjective Allergies: Coded Allergies: No Known Allergies (Unverified , 10/21/17) Subjective Patient reports feeling better Low grade fevers Left leg pain continues. Objective Vital Signs Last 24 Hour Vital Signs Date Time Temp Pulse Resp B/P (MAP) Pulse Ox O2 Delivery O2 Flow Rate FiO2 10/24/17 04:00 100.2 105 20 110/60 (77) 98 100.2 10/24/17 04:00 120 10/24/17 00:00 97.5 110 20 158/61 (93) 97 97.5 10/24/17 00:00 122 10/23/17 21:00 Room Air 10/23/17 20:00 99.7 105 20 111/64 (80) 99 99.7 10/23/17 20:00 113 10/23/17 16:13 99.9 106 20 114/66 (82) 99 99.9 10/23/17 16:00 116 10/23/17 15:34 98.7 10/23/17 15:04 98.7 10/23/17 13:00 98.7 104 23 92/57 (69) 96 98.7 10/23/17 12:00 110 25 107/76 (86) 100 10/23/17 12:00 Room Air 10/23/17 11:00 109 26 95/62 (73) 100 10/23/17 10:00 111 24 99/66 (77) 99 10/23/17 09:00 108 25 116/73 (87) 99 10/23/17 09:00 Room Air 10/23/17 08:00 100.2 104 26 102/55 (71) 98 100.2 10/23/17 08:00 110 10/23/17 08:00 Room Air Height (Feet): 6 Height (Inches): 2.00 Weight (Pounds): 152 Objective GENERAL: Thin male, Sitting in bed, Comfotable HEENT: NCAT, MMM, EOMI left eye with some deviation (Not new per patient) CARDIOVASCULAR: RRR, S1, S2, No M/R/G LUNGS: CTAB, No W/C ABDOMEN: Soft, NT, ND, +BS, EXTREMITIES: No cyanosis, clubbing. Pulses 1+ DP, 2+ Rad B/L,Left foot and leg with edema to knee (no warmth but some what painful), Right foot with edema SKIN: Multiple dark skin lesion/crusting of feet and shins B/L, NEUROLOGIC: A/Ox4, Grossly non focal Microbiology Date/Time Source Procedure Growth Status 10/22/17 19:15 Blood Blood Culture - Preliminary NO GROWTH AFTER 24 HOURS Resulted 10/22/17 19:00 Blood Blood Culture - Preliminary NO GROWTH AFTER 24 HOURS Resulted 10/22/17 12:00 Sputum Not Specified AFB Specimen Processing Tissue - Final Resulted 10/22/17 12:00 Sputum Not Specified Acid Fast Bacilli Smear - Final Resulted 10/22/17 12:00 Sputum Not Specified Acid Fast Bacilli Culture Pending Resulted 10/21/17 23:00 Nasal Nares MRSA Culture - Final Staphylococcus Aureus - Mrsa Complete 10/22/17 09:15 Urine,Clean Catch Urine Culture - Preliminary Resulted 10/21/17 23:00 Rectum - Preliminary Resulted Current Medications Medications (Trade) Dose Ordered Sig/Yessica Route PRN Reason Start Time Stop Time Status Last Admin Dose Admin Acetaminophen (Tylenol) 650 mg Q6H PRN ORAL Temp > 100.5 10/23/17 19:45 11/20/17 14:39 Acetaminophen/ Hydrocodone Bitart ([place] 5/325) 1 tab Q6H PRN ORAL Mild Pain (Pain Scale 1-3) 10/23/17 19:45 10/28/17 14:39 Azithromycin (Zithromax) 250 mg Q24H ORAL 10/23/17 15:00 10/30/17 14:59 10/23/17 15:04 Barium Sulfate (Readi-Cat 2) 450 ml NOW PRN ORAL Radiology Procedure 10/23/17 16:15 10/25/17 16:04 Cefepime HCl 1 gm/ Dextrose 55 ml @ 110 mls/hr EVERY 12 HOURS IVPB 10/23/17 21:00 10/29/17 08:59 10/23/17 21:30 Iopamidol (Isovue-300 100ml) 100 ml NOW PRN INJ Radiology Procedure 10/23/17 09:30 10/24/17 16:00 Lorazepam (Ativan) 1 mg Q6H PRN ORAL For Anxiety 10/23/17 14:40 10/29/17 14:39 Mirtazapine (Remeron) 15 mg BEDTIME ORAL 10/23/17 21:00 11/21/17 20:59 10/23/17 21:21 Morphine Sulfate (Morphine Sulfate) 2 mg Q4H PRN IVP Moderate Pain (Pain Scale 4-6) 10/23/17 20:00 10/29/17 19:59 Morphine Sulfate (Morphine Sulfate) 4 mg Q4H PRN IVP Severe Pain (Pain Scale 7-10) 10/23/17 19:30 10/30/17 19:29 10/24/17 05:07 Pantoprazole (Protonix) 40 mg EVERY 12 HOURS IVP 10/23/17 21:00 11/21/17 20:59 10/23/17 21:20 Patient Own Medication (Patient's Own Med) 1 ea DAILY ORAL 10/24/17 09:00 11/22/17 11:59 Patient Own Medication (Patient's Own Med) 1 ea DAILY ORAL 10/24/17 09:00 11/22/17 11:59 Potassium Chloride 10 meq/ Sodium Chloride 1,005 ml @ 100 mls/hr Q10H3M IV 10/23/17 14:30 11/21/17 10:59 10/24/17 00:43 Trimethoprim/ Sulfamethoxazole (Bactrim-DS) 1 tab Q12HR ORAL 10/23/17 21:00 10/29/17 08:59 10/23/17 21:20 Sterling Ortiz MD Oct 24, 2017 07:56
[2017-10-24 08:00] VITALS: BP 107/74
[2017-10-24 09:05] LABS: BASOPHILS % (AUTO) 0.6 % (0.0-2.0); HEMATOCRIT 31.1 % (42.0-52.0); HEMOGLOBIN 10.3 G/DL (14.2-18.0); MEAN CORPUSCULAR VOLUME 93 FL (80-99); NEUTROPHILS % (AUTO) 73.4 % (45.0-75.0); PLATELET COUNT 254 K/UL (150-450); RED BLOOD COUNT 3.35 M/UL (4.70-6.10); RED CELL DISTRIBUTION WIDTH 14.2 % (11.6-14.8); WHITE BLOOD COUNT 5.8 K/UL (4.8-10.8)
[2017-10-24 09:23] LABS: ALANINE AMINOTRANSFERASE 19 U/L (12-78); ALBUMIN 1.6 G/DL (3.4-5.0); ALBUMIN/GLOBULIN RATIO 0.3 (1.0-2.7); ALKALINE PHOSPHATASE 62 U/L (46-116); ANION GAP 6 mmol/L (5-15); ASPARTATE AMINO TRANSFERASE 17 U/L (15-37); BILIRUBIN,TOTAL 0.4 MG/DL (0.2-1.0); BLOOD UREA NITROGEN 4 mg/dL (7-18); CALCIUM 8.3 MG/DL (8.5-10.1); CARBON DIOXIDE 28 MMOL/L (21-32); CHLORIDE 104 MMOL/L (98-107); CREATININE 0.9 MG/DL (0.55-1.30); PHOSPHORUS 2.3 MG/DL (2.5-4.9); SODIUM 138 MMOL/L (136-145)
[2017-10-24] MEDS ORDERED: cefTRIAXone 1 GM in D5W 55 ML IVPB SCH (09:30)
[2017-10-24] MEDS: Pantoprazole Inj IVP SCH ×2 (10:14→20:35)
[2017-10-24] MEDS: Bactrim-DS 1 tab ORAL SCH ×2 (10:14→20:35)
--- NOTE | 2017-10-24 10:27 | Diagnostic Imaging Report ---
Indication: Foot pain Comparison: None Findings: 3 views of the left foot were obtained. No acute fractures, malalignment, erosions or periostitis are identified. The bones are diffusely osteopenic. Soft tissue swelling is present. Impression: No acute fracture. Soft tissue swelling, nonspecific.
--- NOTE | 2017-10-24 10:34 | Diagnostic Imaging Report ---
Indication: left ankle ankle pain Comparison: None Findings: 2 views of the left ankle were obtained. No acute fractures, malalignment, erosions or periostitis are identified. Soft tissue swelling is present which is nonspecific.. Impression: No acute findings
[2017-10-24 12:00] VITALS: BP 108/64
--- NOTE | 2017-10-24 12:00 | Pulmonology Progress Note ---
Assessment/Plan Problems: (1) Septic shock Assessment & Plan: better (2) ATN (acute tubular necrosis) (3) Interstitial pneumonia (4) HIV disease (5) Kaposi disease (6) Castleman disease Assessment/Plan CT abdomen/pelvis reviewed check electrolytes Hematology f/u ID f/u symptomatic treatment check cultures dc iv fluid K, mg, Phos supplement check labs in am med/surg Subjective ROS Limited/Unobtainable: No Constitutional: Reports: no symptoms HEENT: Repors: no symptoms Respiratory: Reports: no symptoms Allergies: Coded Allergies: No Known Allergies (Unverified , 10/21/17) Objective Last 24 Hour Vital Signs Date Time Temp Pulse Resp B/P (MAP) Pulse Ox O2 Delivery O2 Flow Rate FiO2 10/24/17 11:01 100.2 10/24/17 10:31 100.2 10/24/17 09:00 Room Air 10/24/17 08:00 98.2 106 20 107/74 (85) 100 98.2 10/24/17 08:00 111 10/24/17 04:00 100.2 105 20 110/60 (77) 98 100.2 10/24/17 04:00 120 10/24/17 00:00 97.5 110 20 158/61 (93) 97 97.5 10/24/17 00:00 122 10/23/17 21:00 Room Air 10/23/17 20:00 99.7 105 20 111/64 (80) 99 99.7 10/23/17 20:00 113 10/23/17 16:13 99.9 106 20 114/66 (82) 99 99.9 10/23/17 16:00 116 10/23/17 15:34 98.7 10/23/17 15:04 98.7 10/23/17 13:00 98.7 104 23 92/57 (69) 96 98.7 10/23/17 12:00 110 25 107/76 (86) 100 10/23/17 12:00 Room Air Intake and Output 10/23/17 10/24/17 19:00 07:00 Intake Total 520 ml 1383 ml Output Total 800 ml 1210 ml Balance -280 ml 173 ml Intake Oral 420 ml 200 ml IV Total 100 ml 1183 ml Output Urine Total 800 ml 1210 ml # Voids 2 General Appearance: cachetic HEENT: normocephalic, atraumatic Respiratory/Chest: chest wall non-tender, lungs clear Cardiovascular: normal peripheral pulses, normal rate Abdomen: normal bowel sounds, soft, non tender, no organomegaly Extremities: no cyanosis, no clubbing Neurologic/Psychiatric: lockstitch 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 joiner II-XII grossly normal Microbiology Date/Time Source Procedure Growth Status 10/22/17 19:15 Blood Blood Culture - Preliminary NO GROWTH AFTER 24 HOURS Resulted 10/22/17 19:00 Blood Blood Culture - Preliminary NO GROWTH AFTER 24 HOURS Resulted 10/22/17 12:00 Sputum Not Specified AFB Specimen Processing Tissue - Final Resulted 10/22/17 12:00 Sputum Not Specified Acid Fast Bacilli Smear - Final Resulted 10/22/17 12:00 Sputum Not Specified Acid Fast Bacilli Culture Pending Resulted 10/21/17 23:00 Nasal Nares MRSA Culture - Final Staphylococcus Aureus - Mrsa Complete 10/22/17 09:15 Urine,Clean Catch Urine Culture - Preliminary NO GROWTH AFTER 24 HOURS Resulted 10/21/17 23:00 Rectum - Preliminary Resulted 10/21/17 23:00 Rectum VRE Culture - Final NO VANCOMYCIN RESISTANT ENTEROCOCCUS ... Complete Laboratory Tests 10/24/17 08:00: White Blood Count 5.8, Red Blood Count 3.35L, Hemoglobin 10.3L, Hematocrit 31.1L , Mean Corpuscular Volume 93, Mean Corpuscular Hemoglobin 30.6, Mean Corpuscular Hemoglobin Concent 32.9, Red Cell Distribution Width 14.2, Platelet Count 254, Mean Platelet Volume 5.6L, Neutrophils (%) (Auto) 73.4, Lymphocytes ( %) (Auto) 14.0L, Monocytes (%) (Auto) 6.0, Eosinophils (%) (Auto) 6.0H, Basophils (%) (Auto) 0.6, Erythrocyte Sedimentation Rate 105H, Sodium Level 138 , Potassium Level 3.0L, Chloride Level 104, Carbon Dioxide Level 28, Anion Gap 6 , Blood Urea Nitrogen 4L, Creatinine 0.9, Estimat Glomerular Filtration Rate > 60, Glucose Level 102, Calcium Level 8.3L, Phosphorus Level 2.3L, Magnesium Level 1.3L, Total Bilirubin 0.4, Aspartate Amino Transf (AST/SGOT) 17, Alanine Aminotransferase (ALT/SGPT) 19, Alkaline Phosphatase 62, C-Reactive Protein, Quantitative 29.1H, Total Protein 6.8, Albumin 1.6L, Globulin 5.2, Albumin/ Globulin Ratio 0.3L, Lipase 48L, Coccidioides Antibody (Comp Fix) [Pending], Cytomegalovirus IgG Antibody [Pending] Current Medications Medications (Trade) Dose Ordered Sig/Yessica Route PRN Reason Start Time Stop Time Status Last Admin Dose Admin Acetaminophen (Tylenol) 650 mg Q6H PRN ORAL Temp > 100.5 10/23/17 19:45 11/20/17 14:39 Acetaminophen/ Hydrocodone Bitart ([place] 5/325) 1 tab Q6H PRN ORAL Mild Pain (Pain Scale 1-3) 10/23/17 19:45 10/28/17 14:39 Azithromycin (Zithromax) 250 mg Q24H ORAL 10/23/17 15:00 10/30/17 14:59 10/23/17 15:04 Barium Sulfate (Readi-Cat 2) 450 ml NOW PRN ORAL Radiology Procedure 10/23/17 16:15 10/25/17 16:04 Ceftriaxone Sodium 1 gm/ Dextrose 55 ml @ 110 mls/hr Q24H IVPB 10/24/17 09:30 10/31/17 09:29 10/24/17 10:13 Iopamidol (Isovue-300 100ml) 100 ml NOW PRN INJ Radiology Procedure 10/23/17 09:30 10/24/17 16:00 Lorazepam (Ativan) 1 mg Q6H PRN ORAL For Anxiety 10/23/17 14:40 10/29/17 14:39 Magnesium Sulfate 100 ml @ 100 mls/hr Q1H IV 10/24/17 12:45 10/24/17 14:44 UNV Mirtazapine (Remeron) 15 mg BEDTIME ORAL 10/23/17 21:00 11/21/17 20:59 10/23/17 21:21 Morphine Sulfate (Morphine Sulfate) 2 mg Q4H PRN IVP Moderate Pain (Pain Scale 4-6) 10/23/17 20:00 10/29/17 19:59 Morphine Sulfate (Morphine Sulfate) 4 mg Q4H PRN IVP Severe Pain (Pain Scale 7-10) 10/23/17 19:30 10/30/17 19:29 10/24/17 10:31 Pantoprazole (Protonix) 40 mg EVERY 12 HOURS IVP 10/23/17 21:00 11/21/17 20:59 10/24/17 10:14 Patient Own Medication (Patient's Own Med) 1 ea DAILY ORAL 10/25/17 09:00 11/24/17 08:59 Patient Own Medication (Patient's Own Med) 1 ea DAILY ORAL 10/25/17 09:00 11/24/17 08:59 Potassium Chloride 10 meq/ Sodium Chloride 1,005 ml @ 100 mls/hr Q10H3M IV 10/23/17 14:30 11/21/17 10:59 10/24/17 10:31 Potassium Chloride 40 meq/ Sodium Chloride 570 ml @ 142.5 mls/ hr ONCE ONCE IVPB 10/24/17 12:00 10/24/17 15:59 UNV Sodium Phosphate 30 mm/Sodium Chloride 285 ml @ 47.5 mls/hr ONCE ONCE IV 10/24/17 12:45 10/24/17 18:44 UNV Trimethoprim/ Sulfamethoxazole (Bactrim-DS) 1 tab Q12HR ORAL 10/23/17 21:00 10/29/17 08:59 10/24/17 10:14 Ya Hester MD Oct 24, 2017 12:00
--- NOTE | 2017-10-24 12:22 | General Progress Note ---
Assessment/Plan Assessment/Plan Assessment/Recs: 36 year old HIV/AIDS positive male who presented to the [facility] ED with poor appetite, nausea and vomiting and fever to 102. # Castlemans's disease/KS - outpatinent chemo has been received as recently as 1 month ago. Abnormal appearance of the pancreas which appears enlarged. Findings could be on the basis of pancreatitis versus pancreatic tumor versus peripancreatic adenopathy. Evidence of adenopathy involving the iliac, inguinal regions within the pelvis. Retroperitoneal adenopathy also suspected. Findings may be neoplastic or inflammatory. S/P Chemo ending 07/17/17. Last PET 08/12/17 - show stable/not worsening lymphadenopathy --> recommend to obtain VEGF, IL-6 these labs ordered but do take several days/ weeks to come back --> inflammatory makers ordered --> imaging is ordered as well --> outpatient f/u as well for futher therapy prn --> treat underlying HIV as per ID service # Anemia of chronic disaese -- workup has been ordered and reviewed --> esr elevated, as is crp --> transfuse if hgb <7 # Sepsis - PNA, KS, other infection (TB?) - CXR interstitial marking but no definite acute infiltrates, effusions, or congestion, fever up to 102 # HIV - On Tivicay and Truvada and Bactrim, Unknown CD4 adn VL --> VL pending, CD4 count ordered<100 # REENA Greatly appreciate consultation. Subjective Constitutional: Denies: no symptoms, chills, diaphoresis, fever, malaise, weakness, other HEENT: Denies: no symptoms, eye pain, blurred vision, tearing, double vision, ear pain, ear discharge, nose pain, nose congestion, throat pain, throat swelling, mouth pain, mouth swelling, other Cardiovascular: Denies: no symptoms, chest pain, edema, irregular heart rate, lightheadedness, palpitations, syncope, other Respiratory: Denies: no symptoms, cough, orthopnea, shortness of breath, SOB with excertion, SOB at rest, sputum, stridor, wheezing, other Gastrointestinal/Abdominal: Denies: no symptoms, abdomen distended, abdominal pain, black stools, tarry stools, blood in stool, constipated, diarrhea, difficulty swallowing, nausea, poor appetite, poor fluid intake, rectal bleeding , vomiting, other Genitourinary: Denies: no symptoms, burning, discharge, frequency, flank pain, hematuria, incontinence, pain, urgency, other Neurologic/Psychiatric: Denies: no symptoms, anxiety, depressed, emotional problems, headache, numbness, paresthesia, pre-existing deficit, seizure, tingling, tremors, weakness, other Endocrine: Denies: no symptoms, excessive sweating, flushing, intolerance to cold, intolerance to heat, increased hunger, increased thirst, increased urine, unexplained weight gain, unexplained weight loss, other Hematologic/Lymphatic: Denies: no symptoms, anemia, easy bleeding, easy bruising, other Allergies: Coded Allergies: No Known Allergies (Unverified , 10/21/17) Subjective continues to have mild fevers, no chills, no night sweats Objective Last 24 Hour Vital Signs Date Time Temp Pulse Resp B/P (MAP) Pulse Ox O2 Delivery O2 Flow Rate FiO2 10/24/17 11:01 100.2 10/24/17 10:31 100.2 10/24/17 09:00 Room Air 10/24/17 08:00 98.2 106 20 107/74 (85) 100 98.2 10/24/17 08:00 111 10/24/17 04:00 100.2 105 20 110/60 (77) 98 100.2 10/24/17 04:00 120 10/24/17 00:00 97.5 110 20 158/61 (93) 97 97.5 10/24/17 00:00 122 10/23/17 21:00 Room Air 10/23/17 20:00 99.7 105 20 111/64 (80) 99 99.7 10/23/17 20:00 113 10/23/17 16:13 99.9 106 20 114/66 (82) 99 99.9 10/23/17 16:00 116 10/23/17 15:34 98.7 10/23/17 15:04 98.7 10/23/17 13:00 98.7 104 23 92/57 (69) 96 98.7 Intake and Output 10/23/17 10/24/17 19:00 07:00 Intake Total 520 ml 1383 ml Output Total 800 ml 1210 ml Balance -280 ml 173 ml Intake Oral 420 ml 200 ml IV Total 100 ml 1183 ml Output Urine Total 800 ml 1210 ml # Voids 2 Laboratory Tests 10/24/17 08:00: White Blood Count 5.8, Red Blood Count 3.35L, Hemoglobin 10.3L, Hematocrit 31.1L , Mean Corpuscular Volume 93, Mean Corpuscular Hemoglobin 30.6, Mean Corpuscular Hemoglobin Concent 32.9, Red Cell Distribution Width 14.2, Platelet Count 254, Mean Platelet Volume 5.6L, Neutrophils (%) (Auto) 73.4, Lymphocytes ( %) (Auto) 14.0L, Monocytes (%) (Auto) 6.0, Eosinophils (%) (Auto) 6.0H, Basophils (%) (Auto) 0.6, Erythrocyte Sedimentation Rate 105H, Sodium Level 138 , Potassium Level 3.0L, Chloride Level 104, Carbon Dioxide Level 28, Anion Gap 6 , Blood Urea Nitrogen 4L, Creatinine 0.9, Estimat Glomerular Filtration Rate > 60, Glucose Level 102, Calcium Level 8.3L, Phosphorus Level 2.3L, Magnesium Level 1.3L, Total Bilirubin 0.4, Aspartate Amino Transf (AST/SGOT) 17, Alanine Aminotransferase (ALT/SGPT) 19, Alkaline Phosphatase 62, C-Reactive Protein, Quantitative 29.1H, Total Protein 6.8, Albumin 1.6L, Globulin 5.2, Albumin/ Globulin Ratio 0.3L, Lipase 48L, Coccidioides Antibody (Comp Fix) [Pending], Cytomegalovirus IgG Antibody [Pending] Height (Feet): 6 Height (Inches): 2.00 Weight (Pounds): 152 General Appearance: no apparent distress EENT: normal ENT inspection Neck: supple Cardiovascular: normal rate Respiratory/Chest: normal breath sounds Abdomen: soft Extremities: non-tender Edema: 1+ Leg (L), 1+ Leg (R) Edema: mild edema Neurologic: oriented x 3 Skin: warm/dry Jean Bingham MD Oct 24, 2017 12:22
[2017-10-24] MEDS ORDERED: Potassium Chloride 40 MEQ in Sodium Chloride 500ML 550 ML IVPB ONE (13:00)
--- NOTE | 2017-10-24 13:01 | General Progress Note ---
Assessment/Plan Assessment/Plan MDD Failure to thrive -remeron 15mg po qhs -ativan prn -provided ro/st Subjective Date patient seen: Oct 24, 2017 Neurologic/Psychiatric: Reports: anxiety, depressed, emotional problems Allergies: Coded Allergies: No Known Allergies (Unverified , 10/21/17) Subjective slept well nad Objective Last 24 Hour Vital Signs Date Time Temp Pulse Resp B/P (MAP) Pulse Ox O2 Delivery O2 Flow Rate FiO2 10/24/17 11:01 100.2 10/24/17 10:31 100.2 10/24/17 09:00 Room Air 10/24/17 08:00 98.2 106 20 107/74 (85) 100 98.2 10/24/17 08:00 111 10/24/17 04:00 100.2 105 20 110/60 (77) 98 100.2 10/24/17 04:00 120 10/24/17 00:00 97.5 110 20 158/61 (93) 97 97.5 10/24/17 00:00 122 10/23/17 21:00 Room Air 10/23/17 20:00 99.7 105 20 111/64 (80) 99 99.7 10/23/17 20:00 113 10/23/17 16:13 99.9 106 20 114/66 (82) 99 99.9 10/23/17 16:00 116 10/23/17 15:34 98.7 10/23/17 15:04 98.7 Intake and Output 10/23/17 10/24/17 19:00 07:00 Intake Total 520 ml 1383 ml Output Total 800 ml 1210 ml Balance -280 ml 173 ml Intake Oral 420 ml 200 ml IV Total 100 ml 1183 ml Output Urine Total 800 ml 1210 ml # Voids 2 Laboratory Tests 10/24/17 08:00: White Blood Count 5.8, Red Blood Count 3.35L, Hemoglobin 10.3L, Hematocrit 31.1L , Mean Corpuscular Volume 93, Mean Corpuscular Hemoglobin 30.6, Mean Corpuscular Hemoglobin Concent 32.9, Red Cell Distribution Width 14.2, Platelet Count 254, Mean Platelet Volume 5.6L, Neutrophils (%) (Auto) 73.4, Lymphocytes ( %) (Auto) 14.0L, Monocytes (%) (Auto) 6.0, Eosinophils (%) (Auto) 6.0H, Basophils (%) (Auto) 0.6, Erythrocyte Sedimentation Rate 105H, Sodium Level 138 , Potassium Level 3.0L, Chloride Level 104, Carbon Dioxide Level 28, Anion Gap 6 , Blood Urea Nitrogen 4L, Creatinine 0.9, Estimat Glomerular Filtration Rate > 60, Glucose Level 102, Calcium Level 8.3L, Phosphorus Level 2.3L, Magnesium Level 1.3L, Total Bilirubin 0.4, Aspartate Amino Transf (AST/SGOT) 17, Alanine Aminotransferase (ALT/SGPT) 19, Alkaline Phosphatase 62, C-Reactive Protein, Quantitative 29.1H, Total Protein 6.8, Albumin 1.6L, Globulin 5.2, Albumin/ Globulin Ratio 0.3L, Lipase 48L, Coccidioides Antibody (Comp Fix) [Pending], Cytomegalovirus IgG Antibody [Pending] Height (Feet): 6 Height (Inches): 2.00 Weight (Pounds): 152 Rajinder Hebert MD Oct 24, 2017 13:01
[2017-10-24] MEDS: Azithromycin 250mg tab ORAL SCH (14:26)
[2017-10-24 16:00] VITALS: BP 104/61
[2017-10-24] MEDS ORDERED: Sodium Phosphate 30 MM in NS 275 ML IV ONE (17:30)
--- NOTE | 2017-10-24 18:56 | Internal Med Progress Note ---
Subjective Date of Service: Oct 24, 2017 Physician Name Adam Padron Attending Physician Alberto Gtz MD Current Medications Medications (Trade) Dose Ordered Sig/Yessica Route PRN Reason Start Time Stop Time Status Last Admin Dose Admin Acetaminophen (Tylenol) 650 mg Q6H PRN ORAL Temp > 100.5 10/23/17 19:45 11/20/17 14:39 Acetaminophen/ Hydrocodone Bitart ([place] 5/325) 1 tab Q6H PRN ORAL Mild Pain (Pain Scale 1-3) 10/23/17 19:45 10/28/17 14:39 Azithromycin (Zithromax) 250 mg Q24H ORAL 10/23/17 15:00 10/30/17 14:59 10/24/17 14:26 Barium Sulfate (Readi-Cat 2) 450 ml NOW PRN ORAL Radiology Procedure 10/23/17 16:15 10/25/17 16:04 Ceftriaxone Sodium 1 gm/ Dextrose 55 ml @ 110 mls/hr Q24H IVPB 10/24/17 09:30 10/31/17 09:29 10/24/17 10:13 Lorazepam (Ativan) 1 mg Q6H PRN ORAL For Anxiety 10/23/17 14:40 10/29/17 14:39 Mirtazapine (Remeron) 15 mg BEDTIME ORAL 10/23/17 21:00 11/21/17 20:59 10/23/17 21:21 Morphine Sulfate (Morphine Sulfate) 2 mg Q4H PRN IVP Moderate Pain (Pain Scale 4-6) 10/23/17 20:00 10/29/17 19:59 Morphine Sulfate (Morphine Sulfate) 4 mg Q4H PRN IVP Severe Pain (Pain Scale 7-10) 10/23/17 19:30 10/30/17 19:29 10/24/17 14:25 Pantoprazole (Protonix) 40 mg EVERY 12 HOURS IVP 10/23/17 21:00 11/21/17 20:59 10/24/17 10:14 Patient Own Medication (Patient's Own Med) 1 ea DAILY ORAL 10/25/17 09:00 11/24/17 08:59 Patient Own Medication (Patient's Own Med) 1 ea DAILY ORAL 10/25/17 09:00 11/24/17 08:59 Sodium Phosphate 30 mm/Sodium Chloride 285 ml @ 47.5 mls/hr ONCE ONCE IV 10/24/17 17:30 10/24/17 23:29 10/24/17 17:56 Trimethoprim/ Sulfamethoxazole (Bactrim-DS) 1 tab Q12HR ORAL 10/23/17 21:00 10/29/17 08:59 10/24/17 10:14 Allergies: Coded Allergies: No Known Allergies (Unverified , 10/21/17) ROS Limited/Unobtainable: No Constitutional: Reports: chills, fever HEENT: Reports: no symptoms Cardiovascular: Reports: no symptoms Respiratory: Reports: no symptoms Gastrointestinal/Abdominal: Reports: no symptoms Genitourinary: Reports: no symptoms Neurologic/Psychiatric: Reports: no symptoms Subjective 36 YO M admitted with fever and chills. Now sepsis. Cover for Int Med-Dr Gtz. C/O left foot and ankle pain/swelling Objective Last Vital Signs Date Time Temp Pulse Resp B/P (MAP) Pulse Ox O2 Delivery O2 Flow Rate FiO2 10/24/17 16:00 98.2 108 20 104/61 (75) 100 98.2 10/24/17 09:00 Room Air 10/22/17 12:06 21 10/21/17 22:46 2.0 Laboratory Tests Test 10/24/17 08:00 White Blood Count 5.8 K/UL (4.8-10.8) Red Blood Count 3.35 M/UL (4.70-6.10) L Hemoglobin 10.3 G/DL (14.2-18.0) L Hematocrit 31.1 % (42.0-52.0) L Mean Corpuscular Volume 93 FL (80-99) Mean Corpuscular Hemoglobin 30.6 PG (27.0-31.0) Mean Corpuscular Hemoglobin Concent 32.9 G/DL (32.0-36.0) Red Cell Distribution Width 14.2 % (11.6-14.8) Platelet Count 254 K/UL (150-450) Mean Platelet Volume 5.6 FL (6.5-10.1) L Neutrophils (%) (Auto) 73.4 % (45.0-75.0) Lymphocytes (%) (Auto) 14.0 % (20.0-45.0) L Monocytes (%) (Auto) 6.0 % (1.0-10.0) Eosinophils (%) (Auto) 6.0 % (0.0-3.0) H Basophils (%) (Auto) 0.6 % (0.0-2.0) Erythrocyte Sedimentation Rate 105 MM/HR (0-15) H Sodium Level 138 MMOL/L (136-145) Potassium Level 3.0 MMOL/L (3.5-5.1) L Chloride Level 104 MMOL/L (98-107) Carbon Dioxide Level 28 MMOL/L (21-32) Anion Gap 6 mmol/L (5-15) Blood Urea Nitrogen 4 mg/dL (7-18) L Creatinine 0.9 MG/DL (0.55-1.30) Estimat Glomerular Filtration Rate > 60 mL/min (>60) Glucose Level 102 MG/DL (74-106) Calcium Level 8.3 MG/DL (8.5-10.1) L Phosphorus Level 2.3 MG/DL (2.5-4.9) L Magnesium Level 1.3 MG/DL (1.8-2.4) L Total Bilirubin 0.4 MG/DL (0.2-1.0) Aspartate Amino Transf (AST/SGOT) 17 U/L (15-37) Alanine Aminotransferase (ALT/SGPT) 19 U/L (12-78) Alkaline Phosphatase 62 U/L (46-116) C-Reactive Protein, Quantitative 29.1 mg/dL (0.00-0.90) H Total Protein 6.8 G/DL (6.4-8.2) Albumin 1.6 G/DL (3.4-5.0) L Globulin 5.2 g/dL Albumin/Globulin Ratio 0.3 (1.0-2.7) L Lipase 48 U/L (73-393) L Coccidioides Antibody (Comp Fix) Pending Cytomegalovirus IgG Antibody Pending Microbiology Date/Time Source Procedure Growth Status 10/22/17 19:15 Blood Blood Culture - Preliminary NO GROWTH AFTER 24 HOURS Resulted 10/22/17 19:00 Blood Blood Culture - Preliminary NO GROWTH AFTER 24 HOURS Resulted 10/22/17 12:00 Sputum Not Specified AFB Specimen Processing Tissue - Final Resulted 10/22/17 12:00 Sputum Not Specified Acid Fast Bacilli Smear - Final Resulted 10/22/17 12:00 Sputum Not Specified Acid Fast Bacilli Culture Pending Resulted 10/21/17 23:00 Nasal Nares MRSA Culture - Final Staphylococcus Aureus - Mrsa Complete 10/22/17 09:15 Urine,Clean Catch Urine Culture - Preliminary NO GROWTH AFTER 24 HOURS Resulted 10/21/17 23:00 Rectum - Preliminary Resulted 10/21/17 23:00 Rectum VRE Culture - Final NO VANCOMYCIN RESISTANT ENTEROCOCCUS ... Complete Intake and Output 10/23/17 10/24/17 19:00 07:00 Intake Total 520 ml 1383 ml Output Total 800 ml 1210 ml Balance -280 ml 173 ml Intake Oral 420 ml 200 ml IV Total 100 ml 1183 ml Output Urine Total 800 ml 1210 ml # Voids 2 Objective General Appearance: alert, cachetic, thin EENT: PERRL/EOMI, normal ENT inspection Neck: non-tender, normal alignment, supple, normal inspection Cardiovascular: normal peripheral pulses, normal rate, regular rhythm, no gallop/murmur, no JVD Respiratory/Chest: chest wall non-tender, lungs clear, normal breath sounds, no respiratory distress, no accessory muscle use Abdomen: normal bowel sounds, non tender, soft, no organomegaly, no mass Extremities: normal range of motion, other - swelling left foot and ankle Edema: moderate edema 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 continue antibiotics per ID (2) Nausea & vomiting (3) Sepsis Assessment & Plan: ?pneumonia vs left leg cellulitis source? Continue azithro , cefepime and bactrim per ID (4) HIV disease Assessment & Plan: Conitnue HAART (5) Kaposi disease (6) Castleman disease (7) Interstitial pneumonia Assessment & Plan: Continue bactrim, azithro and cefepime per ID (8) Left leg swelling Assessment & Plan: Venous doppler neg for DVT; xray = no fracture Status: progressing Adam Padron MD Oct 24, 2017 18:56
[2017-10-24 20:00] VITALS: BP 93/60
[2017-10-24] MEDS ORDERED: LORazepam 1mg tab ORAL PRN (21:30)
[2017-10-24] MEDS ORDERED: Morphine Sulfate 2mg/ml Inj IVP PRN (21:30)
[2017-10-24] MEDS ORDERED: Norco 5mg/325mg tab ORAL PRN (21:30)
[2017-10-25] VITALS: BP 102/66
[2017-10-25] MEDS: Morphine Sulfate 4mg/ml Inj (IV USE ONLY) IVP PRN ×4 (01:58→22:21)
[2017-10-25 04:00] VITALS: BP 108/70
[2017-10-25 08:48] LABS: BASOPHILS % (AUTO) 0.9 % (0.0-2.0); EOSINOPHILS % (AUTO) 7.9 % (0.0-3.0); HEMATOCRIT 29.4 % (42.0-52.0); HEMOGLOBIN 10.3 G/DL (14.2-18.0); LYMPHOCYTES % (AUTO) 14.5 % (20.0-45.0); MEAN CORPUSCULAR VOLUME 92 FL (80-99); MONOCYTES % (AUTO) 6.7 % (1.0-10.0); NEUTROPHILS % (AUTO) 69.9 % (45.0-75.0); PLATELET COUNT 270 K/UL (150-450); RED BLOOD COUNT 3.21 M/UL (4.70-6.10); RED CELL DISTRIBUTION WIDTH 14.2 % (11.6-14.8); WHITE BLOOD COUNT 4.8 K/UL (4.8-10.8)
[2017-10-25] MEDS: TRUVADA ORAL SCH (08:55)
[2017-10-25] MEDS: TIVICAY 50 MG ORAL SCH (08:55)
--- NOTE | 2017-10-25 08:55 | Pulmonology Progress Note ---
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) acute tubular necrosis - resolved severe protein calorie malnutrition chronic hepatitis B major depressive disorder anemia of chronic disease mild pulmonary hypertension electrolyte imbalance ( hypo K, hypo Mg, hypo P) PLAN OF CARE Med Surg floor Abx, ID follows , blood cx negative, urine cx negative CT C/A/P noted leukocytosis resolved, still persistent fevers sepsis due to HIV/AIDS, pneumonia, possible pancreatitis, Kaposi's sarcoma , Castlemans disorder or possible other infection as per ID serology for TB and fungal pending venous duplex BLE negative ECHO with pEF 65-70% and RVSP of 39 BP stable Heme/oncologist follows anemia workup c/w anemia of chronic disease monitor HH with goal to keep Hgb above 7 CEA WNL DVT prophylaxis provided T-cell subsets revealed CD4 count of 87 ( qualified for AIDS) , apparently down after chemotherapy patient s/p chemo 07/17 and last PET scan 08/12 which was stable and revealed no change in lymphadenopathy. Antiretroviral therapy resumed as per ID specialist e/lytes replaced as needed ( today replace K and Mg) patient initially on IVF, renal parameters and electrolytes closely monitored nephrotoxic avoided acute kidney injury resolved, likely due to dehydration and sepsis due to unstable hemodynamics ( hypotension) GI prophylaxis provided grants assistant evaluation to improve nutritional status psychiatrist follows, psychiatric medication regimen optimized supportive care provided pain management addressed case discussed and evaluated by supervising physician Subjective Allergies: Coded Allergies: No Known Allergies (Unverified , 10/21/17) Subjective afebrile, no leukocytosis pulse ox stable, no signs of resp distress Objective Last 24 Hour Vital Signs Date Time Temp Pulse Resp B/P (MAP) Pulse Ox O2 Delivery O2 Flow Rate FiO2 10/25/17 04:32 99.9 10/25/17 04:02 100.2 10/25/17 04:00 100.2 121 20 108/70 (83) 98 100.2 10/25/17 00:00 100.4 126 19 102/66 (78) 95 100.4 10/24/17 20:58 Room Air 10/24/17 20:52 102.0 10/24/17 20:00 102.0 112 18 93/60 (71) 98 102.0 10/24/17 16:00 98.2 108 20 104/61 (75) 100 98.2 10/24/17 16:00 115 10/24/17 14:55 100.2 10/24/17 14:25 100.2 10/24/17 12:00 98.6 100 20 108/64 (79) 100 98.6 10/24/17 12:00 106 10/24/17 10:31 100.2 10/24/17 09:00 Room Air Intake and Output 10/24/17 10/25/17 19:00 07:00 Intake Total 1040 ml Output Total 2550 ml Balance -1510 ml Intake Oral 1040 ml Output Urine Total 2550 ml General Appearance: no acute distress, cachetic, other - A/A/O x 3 AA male HEENT: normocephalic, atraumatic, anicteric, mucous membranes moist Respiratory/Chest: lungs clear, no accessory muscle use Cardiovascular: normal rate, no JVD Abdomen: normal bowel sounds, soft, non tender Extremities: no edema, pedal pulses normal Neurologic/Psychiatric: no motor/sensory deficits, alert, oriented x 3, responsive Microbiology Date/Time Source Procedure Growth Status 10/22/17 19:15 Blood Blood Culture - Preliminary NO GROWTH AFTER 48 HOURS Resulted 10/22/17 19:00 Blood Blood Culture - Preliminary NO GROWTH AFTER 48 HOURS Resulted 10/22/17 12:00 Sputum Not Specified AFB Specimen Processing Tissue - Final Resulted 10/22/17 12:00 Sputum Not Specified Acid Fast Bacilli Smear - Final Resulted 10/22/17 12:00 Sputum Not Specified Acid Fast Bacilli Culture Pending Resulted 10/22/17 09:15 Urine,Clean Catch Urine Culture - Final NO GROWTH AFTER 48 HOURS Complete Laboratory Tests 10/25/17 07:10: White Blood Count 4.8, Red Blood Count 3.21L, Hemoglobin 10.3L, Hematocrit 29.4L , Mean Corpuscular Volume 92, Mean Corpuscular Hemoglobin 32.0H, Mean Corpuscular Hemoglobin Concent 34.9, Red Cell Distribution Width 14.2, Platelet Count 270, Mean Platelet Volume 5.1L, Neutrophils (%) (Auto) 69.9, Lymphocytes ( %) (Auto) 14.5L, Monocytes (%) (Auto) 6.7, Eosinophils (%) (Auto) 7.9H, Basophils (%) (Auto) 0.9, Sodium Level [Pending], Potassium Level [Pending], Chloride Level [Pending], Carbon Dioxide Level [Pending], Blood Urea Nitrogen [ Pending], Creatinine [Pending], Estimat Glomerular Filtration Rate [Pending], Glucose Level [Pending], Calcium Level [Pending], Phosphorus Level [Pending], Magnesium Level [Pending], Total Bilirubin [Pending], Aspartate Amino Transf ( AST/SGOT) [Pending], Alanine Aminotransferase (ALT/SGPT) [Pending], Alkaline Phosphatase [Pending], Total Protein [Pending], Albumin [Pending], Globulin [ Pending] Current Medications Medications (Trade) Dose Ordered Sig/Yessica Route PRN Reason Start Time Stop Time Status Last Admin Dose Admin Acetaminophen (Tylenol) 650 mg Q6H PRN ORAL Temp > 100.5 10/25/17 01:45 11/20/17 14:39 10/25/17 04:02 Acetaminophen/ Hydrocodone Bitart ([place] 5/325) 1 tab Q6H PRN ORAL Mild Pain (Pain Scale 1-3) 10/24/17 21:30 10/31/17 21:29 Azithromycin (Zithromax) 250 mg Q24H ORAL 10/25/17 15:00 10/30/17 14:59 Ceftriaxone Sodium 1 gm/ Dextrose 55 ml @ 110 mls/hr Q24H IVPB 10/25/17 09:30 10/31/17 09:29 Lorazepam (Ativan) 1 mg Q6H PRN ORAL For Anxiety 10/24/17 21:30 10/31/17 21:29 Mirtazapine (Remeron) 15 mg BEDTIME ORAL 10/25/17 21:00 11/21/17 20:59 Morphine Sulfate (Morphine Sulfate) 2 mg Q4H PRN IVP Moderate Pain (Pain Scale 4-6) 10/24/17 21:30 10/31/17 21:29 Morphine Sulfate (Morphine Sulfate) 4 mg Q4H PRN IVP Severe Pain (Pain Scale 7-10) 10/24/17 01:00 10/31/17 00:59 10/25/17 01:58 Pantoprazole (Protonix) 40 mg EVERY 12 HOURS IVP 10/25/17 09:00 11/21/17 20:59 Patient Own Medication (Patient's Own Med) 1 ea DAILY ORAL 10/25/17 09:00 11/24/17 08:59 Patient Own Medication (Patient's Own Med) 1 ea DAILY ORAL 10/25/17 09:00 11/24/17 08:59 Trimethoprim/ Sulfamethoxazole (Bactrim-DS) 1 tab Q12HR ORAL 10/25/17 09:00 10/29/17 08:59 Gerri Almeida NP Oct 25, 2017 08:55
[2017-10-25] MEDS: Bactrim-DS 1 tab ORAL SCH ×2 (08:56→22:20)
[2017-10-25 09:00] VITALS: BP 100/65
[2017-10-25] MEDS ORDERED: TRUVADA ORAL SCH (09:00)
[2017-10-25] MEDS ORDERED: TIVICAY 50 MG ORAL SCH (09:00)
[2017-10-25] MEDS ORDERED: Pantoprazole Inj IVP SCH (09:00)
[2017-10-25 09:10] LABS: ALANINE AMINOTRANSFERASE 14 U/L (12-78); ALBUMIN 1.4 G/DL (3.4-5.0); ALBUMIN/GLOBULIN RATIO 0.3 (1.0-2.7); ALKALINE PHOSPHATASE 53 U/L (46-116); ANION GAP 8 mmol/L (5-15); ASPARTATE AMINO TRANSFERASE 16 U/L (15-37); BILIRUBIN,TOTAL 0.3 MG/DL (0.2-1.0); BLOOD UREA NITROGEN 7 mg/dL (7-18); CALCIUM 7.5 MG/DL (8.5-10.1); CARBON DIOXIDE 26 MMOL/L (21-32); CHLORIDE 102 MMOL/L (98-107); CREATININE 0.9 MG/DL (0.55-1.30); PHOSPHORUS 3.7 MG/DL (2.5-4.9); SODIUM 136 MMOL/L (136-145)
[2017-10-25] MEDS: cefTRIAXone 1 GM in D5W 55 ML IVPB SCH (10:20)
--- NOTE | 2017-10-25 11:59 | Infectious Diseases Prog Note ---
Assessment/Plan Assessment/Plan 36 year old HIV/AIDS positive male who presented to the [place] ED with poor appetite, nausea and vomiting and fever to 102. Sepsis - Pancreatitis, Castleman's, PNA, KS, other infection (TB?), r/o Disseminated MAC -patient at , no prominent pulm symptoms to suggest PCP 10/22/17- CT show reticular opacity and significant lymphadenopathy 10/23/17 - CT abd/pel Lymphadenopathy, Enlarged Pancrease mild B/L hydronephrosis 11/21/16 - Quantiferon negative (Out Side lab) Fever up to 102 - ongonig Bcx NTD, uCx neg CrAg , QTB neg Cocci, Blato, Histo ab p AFB smear sputum neg x1; cx p KS/ Castlemans's disease S/P Chemo ending 07/17/17 Last PET 08/12/17 - show stable/not worsening lymphadenopathy Seen by Oncology HIV/AIDS - On Tivicay and Descovy and Bactrim HIV MD Dr. Carr No Hx of resistance. Was on Truvada Reyetaz and Norvir before 09/01/17 - CD4 192 and VL - ND (Out Side labs) > CD4 87 (12.4%) 10/22 Has been above 200 in the past. Came down with Chemo Chronic Hep B, VL <15 09/01/17 DVT - On Enoxaparin 10/23/17 - Dopler Negative for DVT Anemia REENA P: Continue Ceftriaxone abx d#3 -10/24 SP Cefepime #2 Continue Azithromycin #3 and Bactrim #3 for now Continue Home HIV meds Tivicay and Descovy -AFB Bcx, fungal (Bl, sp), Sp cx, PCP DFA, fungitell, legionella ag urine, HIV VL, Hep panel - f/u B/U/S Cx and AFB - Monitor CBC and Temps - f/u serologies -Consider lymph node biopsy We will continue to follow the patient with you. Subjective Allergies: Coded Allergies: No Known Allergies (Unverified , 10/21/17) Objective Vital Signs Last 24 Hour Vital Signs Date Time Temp Pulse Resp B/P (MAP) Pulse Ox O2 Delivery O2 Flow Rate FiO2 10/25/17 09:00 Room Air 10/25/17 09:00 98.1 105 20 100/65 (77) 98 98.1 10/25/17 04:32 99.9 10/25/17 04:02 100.2 10/25/17 04:00 100.2 121 20 108/70 (83) 98 100.2 10/25/17 00:00 100.4 126 19 102/66 (78) 95 100.4 10/24/17 20:58 Room Air 10/24/17 20:52 102.0 10/24/17 20:00 102.0 112 18 93/60 (71) 98 102.0 10/24/17 16:00 98.2 108 20 104/61 (75) 100 98.2 10/24/17 16:00 115 10/24/17 14:55 100.2 10/24/17 14:25 100.2 10/24/17 12:00 98.6 100 20 108/64 (79) 100 98.6 10/24/17 12:00 106 Height (Feet): 6 Height (Inches): 2.00 Weight (Pounds): 165 Objective GENERAL: Thin male, Sitting in bed, Comfotable HEENT: NCAT, MMM, EOMI left eye with some deviation (Not new per patient) CARDIOVASCULAR: RRR, S1, S2, No M/R/G LUNGS: CTAB, No W/C ABDOMEN: Soft, NT, ND, +BS, EXTREMITIES: No cyanosis, clubbing. Pulses 1+ DP, 2+ Rad B/L,Left foot and leg with edema to knee (no warmth but some what painful), Right foot with edema SKIN: Multiple dark skin lesion/crusting of feet and shins B/L, NEUROLOGIC: A/Ox4, Grossly non focal Microbiology Date/Time Source Procedure Growth Status 10/22/17 19:15 Blood Blood Culture - Preliminary NO GROWTH AFTER 48 HOURS Resulted 10/22/17 19:00 Blood Blood Culture - Preliminary NO GROWTH AFTER 48 HOURS Resulted 10/22/17 12:00 Sputum Not Specified AFB Specimen Processing Tissue - Final Resulted 10/22/17 12:00 Sputum Not Specified Acid Fast Bacilli Smear - Final Resulted 10/22/17 12:00 Sputum Not Specified Acid Fast Bacilli Culture Pending Resulted Laboratory Tests Test 10/25/17 07:10 White Blood Count 4.8 K/UL (4.8-10.8) Red Blood Count 3.21 M/UL (4.70-6.10) L Hemoglobin 10.3 G/DL (14.2-18.0) L Hematocrit 29.4 % (42.0-52.0) L Mean Corpuscular Volume 92 FL (80-99) Mean Corpuscular Hemoglobin 32.0 PG (27.0-31.0) H Mean Corpuscular Hemoglobin Concent 34.9 G/DL (32.0-36.0) Red Cell Distribution Width 14.2 % (11.6-14.8) Platelet Count 270 K/UL (150-450) Mean Platelet Volume 5.1 FL (6.5-10.1) L Neutrophils (%) (Auto) 69.9 % (45.0-75.0) Lymphocytes (%) (Auto) 14.5 % (20.0-45.0) L Monocytes (%) (Auto) 6.7 % (1.0-10.0) Eosinophils (%) (Auto) 7.9 % (0.0-3.0) H Basophils (%) (Auto) 0.9 % (0.0-2.0) Sodium Level 136 MMOL/L (136-145) Potassium Level 3.0 MMOL/L (3.5-5.1) L Chloride Level 102 MMOL/L (98-107) Carbon Dioxide Level 26 MMOL/L (21-32) Anion Gap 8 mmol/L (5-15) Blood Urea Nitrogen 7 mg/dL (7-18) Creatinine 0.9 MG/DL (0.55-1.30) Estimat Glomerular Filtration Rate > 60 mL/min (>60) Glucose Level 107 MG/DL (74-106) H Calcium Level 7.5 MG/DL (8.5-10.1) L Phosphorus Level 3.7 MG/DL (2.5-4.9) Magnesium Level 1.6 MG/DL (1.8-2.4) L Total Bilirubin 0.3 MG/DL (0.2-1.0) Aspartate Amino Transf (AST/SGOT) 16 U/L (15-37) Alanine Aminotransferase (ALT/SGPT) 14 U/L (12-78) Alkaline Phosphatase 53 U/L (46-116) Total Protein 5.8 G/DL (6.4-8.2) L Albumin 1.4 G/DL (3.4-5.0) L Globulin 4.4 g/dL Albumin/Globulin Ratio 0.3 (1.0-2.7) L Current Medications Medications (Trade) Dose Ordered Sig/Yessica Route PRN Reason Start Time Stop Time Status Last Admin Dose Admin Acetaminophen (Tylenol) 650 mg Q6H PRN ORAL Temp > 100.5 10/25/17 01:45 11/20/17 14:39 10/25/17 04:02 Acetaminophen/ Hydrocodone Bitart ([place] 5/325) 1 tab Q6H PRN ORAL Mild Pain (Pain Scale 1-3) 10/24/17 21:30 10/31/17 21:29 Azithromycin (Zithromax) 250 mg Q24H ORAL 10/25/17 15:00 10/30/17 14:59 Ceftriaxone Sodium 1 gm/ Dextrose 55 ml @ 110 mls/hr Q24H IVPB 10/25/17 09:30 10/31/17 09:29 10/25/17 10:20 Heparin Sodium (Porcine) (Heparin 5000 units/ml) 5,000 units EVERY 8 HOURS SUBQ 10/25/17 14:00 11/24/17 13:59 Lorazepam (Ativan) 1 mg Q6H PRN ORAL For Anxiety 10/24/17 21:30 10/31/17 21:29 Mirtazapine (Remeron) 15 mg BEDTIME ORAL 10/25/17 21:00 11/21/17 20:59 Morphine Sulfate (Morphine Sulfate) 2 mg Q4H PRN IVP Moderate Pain (Pain Scale 4-6) 10/24/17 21:30 10/31/17 21:29 Morphine Sulfate (Morphine Sulfate) 4 mg Q4H PRN IVP Severe Pain (Pain Scale 7-10) 10/24/17 01:00 10/31/17 00:59 10/25/17 08:56 Pantoprazole (Protonix) 40 mg EVERY 12 HOURS IVP 10/25/17 09:00 11/21/17 20:59 10/25/17 08:55 Patient Own Medication (Patient's Own Med) 1 ea DAILY ORAL 10/25/17 09:00 11/24/17 08:59 10/25/17 08:55 Patient Own Medication (Patient's Own Med) 1 ea DAILY ORAL 10/25/17 09:00 11/24/17 08:59 10/25/17 08:55 Trimethoprim/ Sulfamethoxazole (Bactrim-DS) 1 tab Q12HR ORAL 10/25/17 09:00 10/29/17 08:59 10/25/17 08:56 Maite Mobley M.D. Oct 25, 2017 11:59
[2017-10-25 12:00] VITALS: BP 99/61
[2017-10-25] MEDS ORDERED: Sodium Chloride 3% 4ml Nebul Soln INH SCH (12:30)
[2017-10-25] MEDS: Heparin 5000 units/ml inj SUBQ SCH ×2 (13:22→22:22)
[2017-10-25] MEDS: Azithromycin 250mg tab ORAL SCH (14:22)
[2017-10-25 15:53] VITALS: BP 100/64
[2017-10-25] MEDS ORDERED: Sodium Phosphate 30 MM in NS 275 ML IV ONE (17:30)
--- NOTE | 2017-10-25 17:42 | Internal Med Progress Note ---
Subjective Date of Service: Oct 25, 2017 Physician Name NereidaAdam Attending Physician Alberto Gtz MD Current Medications Medications (Trade) Dose Ordered Sig/Yessica Route PRN Reason Start Time Stop Time Status Last Admin Dose Admin Acetaminophen (Tylenol) 650 mg Q6H PRN ORAL Temp > 100.5 10/25/17 01:45 11/20/17 14:39 10/25/17 13:16 Acetaminophen/ Hydrocodone Bitart ([place] 5/325) 1 tab Q6H PRN ORAL Mild Pain (Pain Scale 1-3) 10/24/17 21:30 10/31/17 21:29 Azithromycin (Zithromax) 250 mg Q24H ORAL 10/25/17 15:00 10/30/17 14:59 10/25/17 14:22 Ceftriaxone Sodium 1 gm/ Dextrose 55 ml @ 110 mls/hr Q24H IVPB 10/25/17 09:30 10/31/17 09:29 10/25/17 10:20 Heparin Sodium (Porcine) (Heparin 5000 units/ml) 5,000 units EVERY 8 HOURS SUBQ 10/25/17 14:00 11/24/17 13:59 10/25/17 13:22 Lorazepam (Ativan) 1 mg Q6H PRN ORAL For Anxiety 10/24/17 21:30 10/31/17 21:29 Mirtazapine (Remeron) 15 mg BEDTIME ORAL 10/25/17 21:00 11/21/17 20:59 Morphine Sulfate (Morphine Sulfate) 2 mg Q4H PRN IVP Moderate Pain (Pain Scale 4-6) 10/24/17 21:30 10/31/17 21:29 Morphine Sulfate (Morphine Sulfate) 4 mg Q4H PRN IVP Severe Pain (Pain Scale 7-10) 10/24/17 01:00 10/31/17 00:59 10/25/17 08:56 Pantoprazole (Protonix) 40 mg Q12HR ORAL 10/25/17 21:00 11/24/17 20:59 Patient Own Medication (Patient's Own Med) 1 ea DAILY ORAL 10/25/17 09:00 11/24/17 08:59 10/25/17 08:55 Patient Own Medication (Patient's Own Med) 1 ea DAILY ORAL 10/25/17 09:00 11/24/17 08:59 10/25/17 08:55 Sodium Chloride (Sodium Chloride Dey-Michael 3%) 4 ml ONCE INH 10/25/17 12:30 10/25/17 23:59 Trimethoprim/ Sulfamethoxazole (Bactrim-DS) 1 tab Q12HR ORAL 10/25/17 09:00 10/29/17 08:59 10/25/17 08:56 Allergies: Coded Allergies: No Known Allergies (Unverified , 10/21/17) ROS Limited/Unobtainable: No Constitutional: Reports: fever HEENT: Reports: no symptoms Cardiovascular: Reports: no symptoms Respiratory: Reports: no symptoms Gastrointestinal/Abdominal: Reports: no symptoms Genitourinary: Reports: no symptoms Neurologic/Psychiatric: Reports: no symptoms Subjective 36 YO M admitted with fever and chills. Now sepsis. Cover for Int Med-Dr Gtz. Low grade fever. C/O left foot and ankle pain/swelling Objective Last Vital Signs Date Time Temp Pulse Resp B/P (MAP) Pulse Ox O2 Delivery O2 Flow Rate FiO2 10/25/17 15:53 100.1 117 19 100/64 (76) 97 100.1 10/25/17 09:00 Room Air 10/22/17 12:06 21 10/21/17 22:46 2.0 Laboratory Tests Test 10/25/17 07:10 10/25/17 13:02 White Blood Count 4.8 K/UL (4.8-10.8) Red Blood Count 3.21 M/UL (4.70-6.10) L Hemoglobin 10.3 G/DL (14.2-18.0) L Hematocrit 29.4 % (42.0-52.0) L Mean Corpuscular Volume 92 FL (80-99) Mean Corpuscular Hemoglobin 32.0 PG (27.0-31.0) H Mean Corpuscular Hemoglobin Concent 34.9 G/DL (32.0-36.0) Red Cell Distribution Width 14.2 % (11.6-14.8) Platelet Count 270 K/UL (150-450) Mean Platelet Volume 5.1 FL (6.5-10.1) L Neutrophils (%) (Auto) 69.9 % (45.0-75.0) Lymphocytes (%) (Auto) 14.5 % (20.0-45.0) L Monocytes (%) (Auto) 6.7 % (1.0-10.0) Eosinophils (%) (Auto) 7.9 % (0.0-3.0) H Basophils (%) (Auto) 0.9 % (0.0-2.0) Sodium Level 136 MMOL/L (136-145) Potassium Level 3.0 MMOL/L (3.5-5.1) L Chloride Level 102 MMOL/L (98-107) Carbon Dioxide Level 26 MMOL/L (21-32) Anion Gap 8 mmol/L (5-15) Blood Urea Nitrogen 7 mg/dL (7-18) Creatinine 0.9 MG/DL (0.55-1.30) Estimat Glomerular Filtration Rate > 60 mL/min (>60) Glucose Level 107 MG/DL (74-106) H Calcium Level 7.5 MG/DL (8.5-10.1) L Phosphorus Level 3.7 MG/DL (2.5-4.9) Magnesium Level 1.6 MG/DL (1.8-2.4) L Total Bilirubin 0.3 MG/DL (0.2-1.0) Aspartate Amino Transf (AST/SGOT) 16 U/L (15-37) Alanine Aminotransferase (ALT/SGPT) 14 U/L (12-78) Alkaline Phosphatase 53 U/L (46-116) Total Protein 5.8 G/DL (6.4-8.2) L Albumin 1.4 G/DL (3.4-5.0) L Globulin 4.4 g/dL Albumin/Globulin Ratio 0.3 (1.0-2.7) L Histoplasma Antigen Pending Urine Legionella Antigen Pending Microbiology Date/Time Source Procedure Growth Status 10/22/17 19:15 Blood Blood Culture - Preliminary NO GROWTH AFTER 48 HOURS Resulted 10/22/17 19:00 Blood Blood Culture - Preliminary NO GROWTH AFTER 48 HOURS Resulted Intake and Output 10/24/17 10/25/17 19:00 07:00 Intake Total 1040 ml Output Total 2550 ml Balance -1510 ml Intake Oral 1040 ml Output Urine Total 2550 ml Objective General Appearance: alert, cachetic, thin EENT: PERRL/EOMI, normal ENT inspection Neck: non-tender, normal alignment, supple, normal inspection Cardiovascular: normal peripheral pulses, normal rate, regular rhythm, no gallop/murmur, no JVD Respiratory/Chest: chest wall non-tender, lungs clear, normal breath sounds, no respiratory distress, no accessory muscle use Abdomen: normal bowel sounds, non tender, soft, no organomegaly, no mass Extremities: normal range of motion, other - swelling left foot and ankle Edema: moderate edema 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 Continue antibiotics per ID (2) Nausea & vomiting (3) Sepsis Assessment & Plan: ?pneumonia vs left leg cellulitis source? Continue azithro , cefepime and bactrim per ID (4) HIV disease Assessment & Plan: Conitnue HAART (5) Kaposi disease (6) Castleman disease (7) Interstitial pneumonia Assessment & Plan: Continue bactrim, azithro and cefepime per ID (8) Left leg swelling Assessment & Plan: Venous doppler neg for DVT; xray = no fracture Adam Padron MD Oct 25, 2017 17:41
--- NOTE | 2017-10-25 17:46 | Diagnostic Imaging Report ---
EXAM: XR Chest, 1 View CLINICAL HISTORY: INFECT TECHNIQUE: Frontal view of the chest. COMPARISON: Chest x-ray dated 10/22/2017 FINDINGS: Lungs: Improving opacity within the right lower lung. Pleural space: Unremarkable. No pneumothorax. Heart: Unremarkable. No cardiomegaly. Mediastinum: Unremarkable. Bones/joints: Unremarkable. IMPRESSION: Improving opacity within the right lower lung.
[2017-10-25 20:00] VITALS: BP 109/65
[2017-10-26] VITALS: BP 109/61
[2017-10-26 04:00] VITALS: BP 115/63
[2017-10-26] MEDS: Morphine Sulfate 4mg/ml Inj (IV USE ONLY) IVP PRN ×3 (06:41→19:57)
[2017-10-26] MEDS: Heparin 5000 units/ml inj SUBQ SCH ×3 (06:41→21:09)
[2017-10-26 07:10] LABS: BASOPHILS % (AUTO) 0.7 % (0.0-2.0); EOSINOPHILS % (AUTO) 8.8 % (0.0-3.0); HEMATOCRIT 29.1 % (42.0-52.0); HEMOGLOBIN 9.8 G/DL (14.2-18.0); LYMPHOCYTES % (AUTO) 13.8 % (20.0-45.0); MEAN CORPUSCULAR VOLUME 92 FL (80-99); MONOCYTES % (AUTO) 5.9 % (1.0-10.0); NEUTROPHILS % (AUTO) 70.9 % (45.0-75.0); PLATELET COUNT 310 K/UL (150-450); RED BLOOD COUNT 3.17 M/UL (4.70-6.10); RED CELL DISTRIBUTION WIDTH 13.8 % (11.6-14.8); WHITE BLOOD COUNT 6.5 K/UL (4.8-10.8)
[2017-10-26 07:37] LABS: ANION GAP 5 mmol/L (5-15); BLOOD UREA NITROGEN 6 mg/dL (7-18); CALCIUM 7.9 MG/DL (8.5-10.1); CARBON DIOXIDE 29 MMOL/L (21-32); CHLORIDE 102 MMOL/L (98-107); CREATININE 0.9 MG/DL (0.55-1.30); POTASSIUM 3.4 MMOL/L (3.5-5.1); SODIUM 135 MMOL/L (136-145)
--- NOTE | 2017-10-26 07:55 | Pulmonology Progress Note ---
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) acute tubular necrosis - resolved severe protein calorie malnutrition chronic hepatitis B major depressive disorder anemia of chronic disease mild pulmonary hypertension electrolyte imbalance ( hypo K, hypo Mg, hypo P) PLAN OF CARE Med Surg floor Abx, ID follows , blood cx negative, urine cx negative CT C/A/P noted leukocytosis resolved, still persistent fevers sepsis due to HIV/AIDS, pneumonia, possible pancreatitis, Kaposi's sarcoma , Castlemans disorder or possible other infection as per ID serology for TB and fungal pending CMV Ab titer positive PPD negative venous duplex BLE negative BP stable ECHO with pEF 65-70% and RVSP of 39 Heme/oncologist follows anemia workup c/w anemia of chronic disease monitor HH with goal to keep Hgb above 7 CEA WNL DVT prophylaxis provided T-cell subsets revealed CD4 count of 87 ( qualified for AIDS) , apparently down after chemotherapy patient s/p chemo 07/17 and last PET scan 08/12 which was stable and revealed no change in lymphadenopathy. Antiretroviral therapy resumed as per ID specialist e/lytes replaced as needed ( today replace K and Mg) patient initially on IVF, renal parameters and electrolytes closely monitored nephrotoxic avoided acute kidney injury resolved, likely due to dehydration and sepsis due to unstable hemodynamics ( hypotension) GI prophylaxis provided rn advice evaluation to improve nutritional status psychiatrist follows, psychiatric medication regimen optimized supportive care provided pain management addressed case discussed and evaluated by supervising physician Subjective Allergies: Coded Allergies: No Known Allergies (Unverified , 10/21/17) Subjective afebrile, no leukocytosis pulse ox stable, no signs of resp distress Objective Last 24 Hour Vital Signs Date Time Temp Pulse Resp B/P (MAP) Pulse Ox O2 Delivery O2 Flow Rate FiO2 10/26/17 04:00 97.0 110 19 115/63 (80) 98 97.0 10/26/17 00:00 99.3 117 19 109/61 (77) 95 99.3 10/25/17 21:00 Room Air 10/25/17 20:00 100.0 112 19 109/65 (80) 97 100.0 10/25/17 15:53 100.1 117 19 100/64 (76) 97 100.1 10/25/17 13:46 100.1 10/25/17 13:16 100.2 10/25/17 12:00 100.2 112 20 99/61 (74) 97 100.2 10/25/17 09:00 Room Air 10/25/17 09:00 98.1 105 20 100/65 (77) 98 98.1 Intake and Output 10/25/17 10/26/17 19:00 07:00 Intake Total 895 ml Output Total 300 ml Balance 895 ml -300 ml Intake Oral 840 ml IV Total 55 ml Output Urine Total 300 ml # Voids 2 Objective General Appearance: no acute distress, cachetic, A/A/O x 3 AA male HEENT: normocephalic, atraumatic, anicteric, mucous membranes moist Respiratory/Chest: lungs clear, no accessory muscle use Cardiovascular: normal rate, no JVD Abdomen: normal bowel sounds, soft, non tender Extremities: no edema, pedal pulses normal Neurologic/Psychiatric: no motor/sensory deficits, alert, oriented x 3, responsive Laboratory Tests 10/25/17 13:02: Histoplasma Antigen [Pending], Urine Legionella Antigen [Pending] 10/26/17 05:50: White Blood Count 6.5, Red Blood Count 3.17L, Hemoglobin 9.8L, Hematocrit 29.1L , Mean Corpuscular Volume 92, Mean Corpuscular Hemoglobin 30.8, Mean Corpuscular Hemoglobin Concent 33.6, Red Cell Distribution Width 13.8, Platelet Count 310, Mean Platelet Volume 5.3L, Neutrophils (%) (Auto) 70.9, Lymphocytes ( %) (Auto) 13.8L, Monocytes (%) (Auto) 5.9, Eosinophils (%) (Auto) 8.8H, Basophils (%) (Auto) 0.7, Sodium Level 135L, Potassium Level 3.4L, Chloride Level 102, Carbon Dioxide Level 29, Anion Gap 5, Blood Urea Nitrogen 6L, Creatinine 0.9, Estimat Glomerular Filtration Rate > 60, Glucose Level 103, Calcium Level 7.9L, Magnesium Level 1.6L, Interleukin 6 (IL-6) [Pending], Hepatitis A IgM Antibody [Pending], Hepatitis B Surface Antigen [Pending], Hepatitis B Core IgM Antibody [Pending], Hepatitis C Antibody [Pending], HIV-1 RNA (PCR) log10 Value [Pending], HIV-1 RNA Ultraquantitative (PCR) [Pending] Current Medications Medications (Trade) Dose Ordered Sig/Yessica Route PRN Reason Start Time Stop Time Status Last Admin Dose Admin Acetaminophen (Tylenol) 650 mg Q6H PRN ORAL Temp > 100.5 10/25/17 01:45 11/20/17 14:39 10/25/17 13:16 Acetaminophen/ Hydrocodone Bitart ([place] 5/325) 1 tab Q6H PRN ORAL Mild Pain (Pain Scale 1-3) 10/24/17 21:30 10/31/17 21:29 Azithromycin (Zithromax) 250 mg Q24H ORAL 10/25/17 15:00 10/30/17 14:59 10/25/17 14:22 Ceftriaxone Sodium 1 gm/ Dextrose 55 ml @ 110 mls/hr Q24H IVPB 10/25/17 09:30 10/31/17 09:29 10/25/17 10:20 Heparin Sodium (Porcine) (Heparin 5000 units/ml) 5,000 units EVERY 8 HOURS SUBQ 10/25/17 14:00 11/24/17 13:59 10/26/17 06:41 Lorazepam (Ativan) 1 mg Q6H PRN ORAL For Anxiety 10/24/17 21:30 10/31/17 21:29 Mirtazapine (Remeron) 15 mg BEDTIME ORAL 10/25/17 21:00 11/21/17 20:59 10/25/17 22:20 Morphine Sulfate (Morphine Sulfate) 2 mg Q4H PRN IVP Moderate Pain (Pain Scale 4-6) 10/24/17 21:30 10/31/17 21:29 Morphine Sulfate (Morphine Sulfate) 4 mg Q4H PRN IVP Severe Pain (Pain Scale 7-10) 10/24/17 01:00 10/31/17 00:59 10/26/17 06:41 Pantoprazole (Protonix) 40 mg Q12HR ORAL 10/25/17 21:00 11/24/17 20:59 10/25/17 22:20 Patient Own Medication (Patient's Own Med) 1 ea DAILY ORAL 10/25/17 09:00 11/24/17 08:59 10/25/17 08:55 Patient Own Medication (Patient's Own Med) 1 ea DAILY ORAL 10/25/17 09:00 10/8/18 08:59 10/25/17 08:55 Trimethoprim/ Sulfamethoxazole (Bactrim-DS) 1 tab Q12HR ORAL 10/25/17 09:00 10/29/17 08:59 10/25/17 22:20 Gerri Almeida NP Oct 26, 2017 07:55
[2017-10-26 08:00] VITALS: BP 117/68
[2017-10-26] MEDS: TRUVADA ORAL SCH (08:18)
[2017-10-26] MEDS: TIVICAY 50 MG ORAL SCH (08:18)
[2017-10-26] MEDS: Bactrim-DS 1 tab ORAL SCH ×2 (08:19→21:01)
[2017-10-26] MEDS: cefTRIAXone 1 GM in D5W 55 ML IVPB SCH (09:45)
[2017-10-26 12:00] VITALS: BP 101/56
[2017-10-26] MEDS: Azithromycin 250mg tab ORAL SCH (14:13)
--- NOTE | 2017-10-26 15:42 | Internal Med Progress Note ---
Subjective Date of Service: Oct 26, 2017 Physician Name Adam Padron Attending Physician Alberto Gtz MD Current Medications Medications (Trade) Dose Ordered Sig/Yessica Route PRN Reason Start Time Stop Time Status Last Admin Dose Admin Acetaminophen (Tylenol) 650 mg Q6H PRN ORAL Temp > 100.5 10/25/17 01:45 11/20/17 14:39 10/25/17 13:16 Acetaminophen/ Hydrocodone Bitart ([place] 5/325) 1 tab Q6H PRN ORAL Mild Pain (Pain Scale 1-3) 10/24/17 21:30 10/31/17 21:29 Azithromycin (Zithromax) 250 mg Q24H ORAL 10/25/17 15:00 10/30/17 14:59 10/26/17 14:13 Ceftriaxone Sodium 1 gm/ Dextrose 55 ml @ 110 mls/hr Q24H IVPB 10/25/17 09:30 10/31/17 09:29 10/26/17 09:45 Heparin Sodium (Porcine) (Heparin 5000 units/ml) 5,000 units EVERY 8 HOURS SUBQ 10/25/17 14:00 11/24/17 13:59 10/26/17 13:17 Lorazepam (Ativan) 1 mg Q6H PRN ORAL For Anxiety 10/24/17 21:30 10/31/17 21:29 Mirtazapine (Remeron) 15 mg BEDTIME ORAL 10/25/17 21:00 11/21/17 20:59 10/25/17 22:20 Morphine Sulfate (Morphine Sulfate) 2 mg Q4H PRN IVP Moderate Pain (Pain Scale 4-6) 10/24/17 21:30 10/31/17 21:29 Morphine Sulfate (Morphine Sulfate) 4 mg Q4H PRN IVP Severe Pain (Pain Scale 7-10) 10/24/17 01:00 10/31/17 00:59 10/26/17 13:10 Pantoprazole (Protonix) 40 mg Q12HR ORAL 10/25/17 21:00 11/24/17 20:59 10/26/17 08:18 Patient Own Medication (Patient's Own Med) 1 ea DAILY ORAL 10/25/17 09:00 11/24/17 08:59 10/26/17 08:18 Patient Own Medication (Patient's Own Med) 1 ea DAILY ORAL 10/25/17 09:00 11/24/17 08:59 10/26/17 08:18 Trimethoprim/ Sulfamethoxazole (Bactrim-DS) 1 tab Q12HR ORAL 10/25/17 09:00 10/29/17 08:59 10/26/17 08:19 Allergies: Coded Allergies: No Known Allergies (Unverified , 10/21/17) ROS Limited/Unobtainable: No Constitutional: Reports: no symptoms HEENT: Reports: no symptoms Cardiovascular: Reports: no symptoms Respiratory: Reports: no symptoms Gastrointestinal/Abdominal: Reports: no symptoms Genitourinary: Reports: no symptoms Neurologic/Psychiatric: Reports: no symptoms Subjective 36 YO M admitted with fever and chills. Now sepsis. Cover for Int Med-Dr Gtz. Low grade fever. C/O left foot and ankle pain/swelling Objective Last Vital Signs Date Time Temp Pulse Resp B/P (MAP) Pulse Ox O2 Delivery O2 Flow Rate FiO2 10/26/17 12:00 98.2 98 18 101/56 (71) 90 98.2 10/26/17 09:00 Room Air 10/22/17 12:06 21 10/21/17 22:46 2.0 Laboratory Tests Test 10/26/17 05:50 White Blood Count 6.5 K/UL (4.8-10.8) Red Blood Count 3.17 M/UL (4.70-6.10) L Hemoglobin 9.8 G/DL (14.2-18.0) L Hematocrit 29.1 % (42.0-52.0) L Mean Corpuscular Volume 92 FL (80-99) Mean Corpuscular Hemoglobin 30.8 PG (27.0-31.0) Mean Corpuscular Hemoglobin Concent 33.6 G/DL (32.0-36.0) Red Cell Distribution Width 13.8 % (11.6-14.8) Platelet Count 310 K/UL (150-450) Mean Platelet Volume 5.3 FL (6.5-10.1) L Neutrophils (%) (Auto) 70.9 % (45.0-75.0) Lymphocytes (%) (Auto) 13.8 % (20.0-45.0) L Monocytes (%) (Auto) 5.9 % (1.0-10.0) Eosinophils (%) (Auto) 8.8 % (0.0-3.0) H Basophils (%) (Auto) 0.7 % (0.0-2.0) Sodium Level 135 MMOL/L (136-145) L Potassium Level 3.4 MMOL/L (3.5-5.1) L Chloride Level 102 MMOL/L (98-107) Carbon Dioxide Level 29 MMOL/L (21-32) Anion Gap 5 mmol/L (5-15) Blood Urea Nitrogen 6 mg/dL (7-18) L Creatinine 0.9 MG/DL (0.55-1.30) Estimat Glomerular Filtration Rate > 60 mL/min (>60) Glucose Level 103 MG/DL (74-106) Calcium Level 7.9 MG/DL (8.5-10.1) L Magnesium Level 1.6 MG/DL (1.8-2.4) L Interleukin 6 (IL-6) Pending Hepatitis A IgM Antibody Pending Hepatitis B Surface Antigen Pending Hepatitis B Core IgM Antibody Pending Hepatitis C Antibody Pending HIV-1 RNA (PCR) log10 Value Pending HIV-1 RNA Ultraquantitative (PCR) Pending Beta-(1,3)-D-Glucan Pending Intake and Output 10/25/17 10/26/17 19:00 07:00 Intake Total 995 ml Output Total 300 ml Balance 995 ml -300 ml Intake Oral 840 ml IV Total 155 ml Output Urine Total 300 ml # Voids 2 Objective General Appearance: alert, cachetic, thin EENT: PERRL/EOMI, normal ENT inspection Neck: non-tender, normal alignment, supple, normal inspection Cardiovascular: normal peripheral pulses, normal rate, regular rhythm, no gallop/murmur, no JVD Respiratory/Chest: chest wall non-tender, lungs clear, normal breath sounds, no respiratory distress, no accessory muscle use Abdomen: normal bowel sounds, non tender, soft, no organomegaly, no mass Extremities: normal range of motion, other - swelling left foot and ankle Edema: moderate edema Neurologic: ob/gyn doctor II-XII grossly normal, no motor/sensory deficits Skin: normal pigmentation, warm/dry Assessment/Plan Problem List: (1) Fever Assessment & Plan: Low grade fever. Continue antibiotics per ID (2) Nausea & vomiting (3) Sepsis Assessment & Plan: ?pneumonia vs left leg cellulitis source? Continue azithro , ceftriaxone and bactrim per ID (4) HIV disease Assessment & Plan: Conitnue HAART (5) Kaposi disease (6) Castleman disease (7) Interstitial pneumonia Assessment & Plan: Continue bactrim, azithro and ceftriaxone per ID (8) Left leg swelling Assessment & Plan: Venous doppler neg for DVT; xray = no fracture (9) Cellulitis of left leg Status: stable Adam Padron MD Oct 26, 2017 15:42
[2017-10-26 16:00] VITALS: BP 115/69
[2017-10-26 20:00] VITALS: BP 101/65
[2017-10-27] VITALS: BP 106/67
[2017-10-27 04:00] VITALS: BP_SYST 10; BP_SYST 100; BP_DIAS 61
[2017-10-27] MEDS: Heparin 5000 units/ml inj SUBQ SCH ×3 (05:41→21:11)
[2017-10-27 07:30] LABS: BASOPHILS % (AUTO) 0.5 % (0.0-2.0); EOSINOPHILS % (AUTO) 8.5 % (0.0-3.0); HEMATOCRIT 30.6 % (42.0-52.0); HEMOGLOBIN 10.5 G/DL (14.2-18.0); LYMPHOCYTES % (AUTO) 16.1 % (20.0-45.0); MEAN CORPUSCULAR VOLUME 90 FL (80-99); MONOCYTES % (AUTO) 5.7 % (1.0-10.0); NEUTROPHILS % (AUTO) 69.2 % (45.0-75.0); PLATELET COUNT 381 K/UL (150-450); RED BLOOD COUNT 3.39 M/UL (4.70-6.10); RED CELL DISTRIBUTION WIDTH 13.8 % (11.6-14.8); WHITE BLOOD COUNT 6.2 K/UL (4.8-10.8)
[2017-10-27 07:47] LABS: ANION GAP 2 mmol/L (5-15); BLOOD UREA NITROGEN 6 mg/dL (7-18); CALCIUM 8.3 MG/DL (8.5-10.1); CARBON DIOXIDE 32 MMOL/L (21-32); CHLORIDE 103 MMOL/L (98-107); CREATININE 0.7 MG/DL (0.55-1.30); POTASSIUM 3.7 MMOL/L (3.5-5.1); SODIUM 137 MMOL/L (136-145)
[2017-10-27 08:00] VITALS: BP 103/64
--- NOTE | 2017-10-27 08:19 | Diagnostic Imaging Report ---
Indication: Abdominal pain Technique: Vargas-scale and duplex images of the upper abdomen were obtained Comparison: Findings: Gallbladder demonstrates gallstones. No wall thickening or pericholecystic fluid Sonographic White's sign is negative. Common bile duct measures 5 mm in diameter. No intrahepatic biliary ductal dilatation. Liver demonstrates equivocally slightly coarsened echogenicity. No focal abnormality. Liver is somewhat enlarged. No surface nodularity Portal vein and hepatic veins are patent. Pancreas is unremarkable. The spleen is enlarged, measuring 13.9 cm in length. Left kidney measures 13.4 cm in length. Right kidney measures 12.9 cm length. Both kidneys demonstrate normal echogenicity. There is no hydronephrosis. There is a cyst in the left kidney . Non-aneurysmal abdominal aorta . There are bilateral pleural effusions Impression: Cholelithiasis. Negative for dilated ducts Mild hepatomegaly. Equivocal coarsened hepatic echogenicity, could indicate hepatocellular disease Splenomegaly Bilateral pleural effusions
[2017-10-27] MEDS: Bactrim-DS 1 tab ORAL SCH ×2 (08:33→21:02)
[2017-10-27] MEDS: TRUVADA ORAL SCH (08:33)
[2017-10-27] MEDS: Magnesium Oxide 400mg tab ORAL SCH (08:33)
[2017-10-27] MEDS: TIVICAY 50 MG ORAL SCH (08:33)
[2017-10-27] MEDS: cefTRIAXone 1 GM in D5W 55 ML IVPB SCH (08:40)
--- NOTE | 2017-10-27 09:35 | Pulmonology Progress Note ---
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) acute tubular necrosis - resolved severe protein calorie malnutrition chronic hepatitis B major depressive disorder anemia of chronic disease mild pulmonary hypertension electrolyte imbalance ( hypo K, hypo Mg, hypo P) positive CMV Ab titer PLAN OF CARE Med Surg floor Abx, ID follows , blood cx negative, urine cx negative CT C/A/P noted leukocytosis resolved, no fevers for 36 hrs sepsis due to HIV/AIDS, pneumonia, possible pancreatitis, Kaposi's sarcoma , Castlemans disorder or possible other infection as per ID serology for TB and fungal pending CMV Ab titer positive PPD negative venous duplex BLE negative BP stable ECHO with pEF 65-70% and RVSP of 39 Heme/oncologist follows anemia workup c/w anemia of chronic disease monitor HH with goal to keep Hgb above 7 CEA WNL DVT prophylaxis provided T-cell subsets revealed CD4 count of 87 ( qualified for AIDS) , apparently down after chemotherapy patient s/p chemo 07/17 and last PET scan 08/12 which was stable and revealed no change in lymphadenopathy. 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 nutritional status psychiatrist follows, psychiatric medication regimen optimized supportive care provided pain management addressed additional Mg today dc plan if cleared by ID with further ID recommendations case discussed and evaluated by supervising physician Subjective Allergies: Coded Allergies: No Known Allergies (Unverified , 10/21/17) All Systems: reviewed and negative except above Subjective afebrile, no leukocytosis ( no fevers for 36 hrs) pulse ox stable, no signs of resp distress Objective Last 24 Hour Vital Signs Date Time Temp Pulse Resp B/P (MAP) Pulse Ox O2 Delivery O2 Flow Rate FiO2 10/27/17 08:00 97.1 89 18 103/64 (77) 96 97.1 10/27/17 06:12 96.4 10/27/17 04:00 96.4 91 19 100/61 (74) 96 96.4 10/27/17 00:00 97.7 103 19 106/67 (80) 97 97.7 10/26/17 21:00 Room Air 10/26/17 20:00 98.2 103 19 101/65 (77) 95 98.2 10/26/17 16:00 98.4 105 18 115/69 (84) 97 98.4 10/26/17 12:00 98.2 98 18 101/56 (71) 90 98.2 Intake and Output 10/26/17 10/27/17 19:00 07:00 Intake Total 1255 ml Output Total 550 ml Balance 1255 ml -550 ml Intake Oral 1100 ml IV Total 155 ml Output Urine Total 550 ml # Voids 6 Objective General Appearance: no acute distress, cachetic, A/A/O x 3 AA male HEENT: normocephalic, atraumatic, anicteric, mucous membranes moist Respiratory/Chest: lungs clear, no accessory muscle use Cardiovascular: normal rate, no JVD Abdomen: normal bowel sounds, soft, non tender Extremities: no edema, pedal pulses normal Neurologic/Psychiatric: no motor/sensory deficits, alert, oriented x 3, responsive Microbiology Date/Time Source Procedure Growth Status 10/25/17 15:25 Blood Blood Culture - Preliminary NO GROWTH AFTER 24 HOURS Resulted 10/25/17 15:10 Blood Blood Culture - Preliminary NO GROWTH AFTER 24 HOURS Resulted Laboratory Tests 10/27/17 06:35: White Blood Count 6.2, Red Blood Count 3.39L, Hemoglobin 10.5L, Hematocrit 30.6L , Mean Corpuscular Volume 90, Mean Corpuscular Hemoglobin 30.9, Mean Corpuscular Hemoglobin Concent 34.2, Red Cell Distribution Width 13.8, Platelet Count 381, Mean Platelet Volume 5.2L, Neutrophils (%) (Auto) 69.2, Lymphocytes ( %) (Auto) 16.1L, Monocytes (%) (Auto) 5.7, Eosinophils (%) (Auto) 8.5H, Basophils (%) (Auto) 0.5, Sodium Level 137, Potassium Level 3.7, Chloride Level 103, Carbon Dioxide Level 32, Anion Gap 2L, Blood Urea Nitrogen 6L, Creatinine 0.7, Estimat Glomerular Filtration Rate > 60, Glucose Level 107H, Calcium Level 8.3L, Magnesium Level 1.7L Current Medications Medications (Trade) Dose Ordered Sig/Yessica Route PRN Reason Start Time Stop Time Status Last Admin Dose Admin Acetaminophen (Tylenol) 650 mg Q6H PRN ORAL Temp > 100.5 10/25/17 01:45 11/20/17 14:39 10/25/17 13:16 Acetaminophen/ Hydrocodone Bitart ([place] 5/325) 1 tab Q6H PRN ORAL Mild Pain (Pain Scale 1-3) 10/24/17 21:30 10/31/17 21:29 Azithromycin (Zithromax) 250 mg Q24H ORAL 10/25/17 15:00 10/30/17 14:59 10/26/17 14:13 Ceftriaxone Sodium 1 gm/ Dextrose 55 ml @ 110 mls/hr Q24H IVPB 10/25/17 09:30 10/31/17 09:29 10/27/17 08:40 Heparin Sodium (Porcine) (Heparin 5000 units/ml) 5,000 units EVERY 8 HOURS SUBQ 10/25/17 14:00 11/24/17 13:59 10/27/17 05:41 Lorazepam (Ativan) 1 mg Q6H PRN ORAL For Anxiety 10/24/17 21:30 10/31/17 21:29 Magnesium Oxide (Mag-Ox 400mg) 400 mg DAILY ORAL 10/27/17 09:00 11/26/17 08:59 10/27/17 08:33 Mirtazapine (Remeron) 15 mg BEDTIME ORAL 10/25/17 21:00 11/21/17 20:59 10/26/17 21:01 Morphine Sulfate (Morphine Sulfate) 2 mg Q4H PRN IVP Moderate Pain (Pain Scale 4-6) 10/24/17 21:30 10/31/17 21:29 10/27/17 05:42 Morphine Sulfate (Morphine Sulfate) 4 mg Q4H PRN IVP Severe Pain (Pain Scale 7-10) 10/24/17 01:00 10/31/17 00:59 10/26/17 19:57 Pantoprazole (Protonix) 40 mg Q12HR ORAL 10/25/17 21:00 11/24/17 20:59 10/27/17 08:33 Patient Own Medication (Patient's Own Med) 1 ea DAILY ORAL 10/25/17 09:00 11/24/17 08:59 10/27/17 08:33 Patient Own Medication (Patient's Own Med) 1 ea DAILY ORAL 10/25/17 09:00 11/24/17 08:59 10/27/17 08:33 Trimethoprim/ Sulfamethoxazole (Bactrim-DS) 1 tab Q12HR ORAL 10/25/17 09:00 10/29/17 08:59 10/27/17 08:33 Gerri Almeida NP Oct 27, 2017 09:35
--- NOTE | 2017-10-27 09:46 | Infectious Diseases Prog Note ---
Assessment/Plan Assessment/Plan 36 year old HIV/AIDS positive male who presented to the [facility] ED with poor appetite, nausea and vomiting and fever to 102. Sepsis - Pancreatitis, Castleman's, PNA, KS, other infection (TB?) 10/22/17- CT show reticular opacity and significant lymphadenopathy 10/23/17 - CT abd/pel Lymphadenopathy, Enlarged Pancrease mild B/L hydronephrosis 11/21/16 - Quantiferon negative (Out Side lab) Fever up to 102 - Resolved B/U/S Cx - Negative Fungal serologies pending KS/ Castlemans's disease S/P Chemo ending 07/17/17 Last PET 08/12/17 - show stable/not worsening lymphadenopathy Seen by Oncology HIV - On Tivicay and Descovy and Bactrim HIV MD Dr. Carr No Hx of resistance. Was on Truvada Reyetaz and Norvir before 09/01/17 - CD4 192 and VL - ND (Out Side labs) 10/24/17 CD4 87 and VL - Pend Has been above 200 in the past. Came down with Chemo Chronic Hep B, VL <15 09/01/17 DVT - On Enoxaparin 10/23/17 - Dopler Negative for DVT Anemia REENA P: Continue Ceftriaxone #4, Azithromycin #5 and Bactrim #5 - CAP and atypical Continue Home HIV meds Tivicay and Descovy - 10/24 SP Cefepime # 2 - f/u B/U/S Cx - Monitor CBC and Temps - f/u serologies We will continue to follow the patient with you. Subjective Allergies: Coded Allergies: No Known Allergies (Unverified , 10/21/17) Subjective Patient reports feeling better Low grade fevers resolved Objective Vital Signs Last 24 Hour Vital Signs Date Time Temp Pulse Resp B/P (MAP) Pulse Ox O2 Delivery O2 Flow Rate FiO2 10/27/17 08:00 97.1 89 18 103/64 (77) 96 97.1 10/27/17 06:12 96.4 10/27/17 04:00 96.4 91 19 100/61 (74) 96 96.4 10/27/17 00:00 97.7 103 19 106/67 (80) 97 97.7 10/26/17 21:00 Room Air 10/26/17 20:00 98.2 103 19 101/65 (77) 95 98.2 10/26/17 16:00 98.4 105 18 115/69 (84) 97 98.4 10/26/17 12:00 98.2 98 18 101/56 (71) 90 98.2 Height (Feet): 6 Height (Inches): 2.00 Weight (Pounds): 149 Objective GENERAL: Thin male, Comfortable HEENT: NCAT, MMM, EOMI left eye with some deviation (Not new per patient) CARDIOVASCULAR: RRR, S1, S2, No M/R/G LUNGS: CTAB, No W/C ABDOMEN: Soft, NT, ND, +BS, EXTREMITIES: No cyanosis, clubbing. Pulses 1+ DP, 2+ Rad B/L,Left foot and leg with edema to knee (no warmth but some what painful), Right foot with edema SKIN: Multiple dark skin lesion/crusting of feet and shins B/L, NEUROLOGIC: A/Ox4, Grossly non focal Microbiology Date/Time Source Procedure Growth Status 10/25/17 15:25 Blood Blood Culture - Preliminary NO GROWTH AFTER 24 HOURS Resulted 10/25/17 15:10 Blood Blood Culture - Preliminary NO GROWTH AFTER 24 HOURS Resulted Laboratory Tests Test 10/27/17 06:35 White Blood Count 6.2 K/UL (4.8-10.8) Red Blood Count 3.39 M/UL (4.70-6.10) L Hemoglobin 10.5 G/DL (14.2-18.0) L Hematocrit 30.6 % (42.0-52.0) L Mean Corpuscular Volume 90 FL (80-99) Mean Corpuscular Hemoglobin 30.9 PG (27.0-31.0) Mean Corpuscular Hemoglobin Concent 34.2 G/DL (32.0-36.0) Red Cell Distribution Width 13.8 % (11.6-14.8) Platelet Count 381 K/UL (150-450) Mean Platelet Volume 5.2 FL (6.5-10.1) L Neutrophils (%) (Auto) 69.2 % (45.0-75.0) Lymphocytes (%) (Auto) 16.1 % (20.0-45.0) L Monocytes (%) (Auto) 5.7 % (1.0-10.0) Eosinophils (%) (Auto) 8.5 % (0.0-3.0) H Basophils (%) (Auto) 0.5 % (0.0-2.0) Sodium Level 137 MMOL/L (136-145) Potassium Level 3.7 MMOL/L (3.5-5.1) Chloride Level 103 MMOL/L (98-107) Carbon Dioxide Level 32 MMOL/L (21-32) Anion Gap 2 mmol/L (5-15) L Blood Urea Nitrogen 6 mg/dL (7-18) L Creatinine 0.7 MG/DL (0.55-1.30) Estimat Glomerular Filtration Rate > 60 mL/min (>60) Glucose Level 107 MG/DL (74-106) H Calcium Level 8.3 MG/DL (8.5-10.1) L Magnesium Level 1.7 MG/DL (1.8-2.4) L Current Medications Medications (Trade) Dose Ordered Sig/Yessica Route PRN Reason Start Time Stop Time Status Last Admin Dose Admin Acetaminophen (Tylenol) 650 mg Q6H PRN ORAL Temp > 100.5 10/25/17 01:45 11/20/17 14:39 10/25/17 13:16 Acetaminophen/ Hydrocodone Bitart ([place] 5/325) 1 tab Q6H PRN ORAL Mild Pain (Pain Scale 1-3) 10/24/17 21:30 10/31/17 21:29 Azithromycin (Zithromax) 250 mg Q24H ORAL 10/25/17 15:00 10/30/17 14:59 10/26/17 14:13 Ceftriaxone Sodium 1 gm/ Dextrose 55 ml @ 110 mls/hr Q24H IVPB 10/25/17 09:30 10/31/17 09:29 10/27/17 08:40 Heparin Sodium (Porcine) (Heparin 5000 units/ml) 5,000 units EVERY 8 HOURS SUBQ 10/25/17 14:00 11/24/17 13:59 10/27/17 05:41 Lorazepam (Ativan) 1 mg Q6H PRN ORAL For Anxiety 10/24/17 21:30 10/31/17 21:29 Magnesium Oxide (Mag-Ox 400mg) 400 mg DAILY ORAL 10/27/17 09:00 11/26/17 08:59 10/27/17 08:33 Mirtazapine (Remeron) 15 mg BEDTIME ORAL 10/25/17 21:00 11/21/17 20:59 10/26/17 21:01 Morphine Sulfate (Morphine Sulfate) 2 mg Q4H PRN IVP Moderate Pain (Pain Scale 4-6) 10/24/17 21:30 10/31/17 21:29 10/27/17 05:42 Morphine Sulfate (Morphine Sulfate) 4 mg Q4H PRN IVP Severe Pain (Pain Scale 7-10) 10/24/17 01:00 10/31/17 00:59 10/26/17 19:57 Pantoprazole (Protonix) 40 mg Q12HR ORAL 10/25/17 21:00 11/24/17 20:59 10/27/17 08:33 Patient Own Medication (Patient's Own Med) 1 ea DAILY ORAL 10/25/17 09:00 11/24/17 08:59 10/27/17 08:33 Patient Own Medication (Patient's Own Med) 1 ea DAILY ORAL 10/25/17 09:00 11/24/17 08:59 10/27/17 08:33 Trimethoprim/ Sulfamethoxazole (Bactrim-DS) 1 tab Q12HR ORAL 10/25/17 09:00 10/29/17 08:59 10/27/17 08:33 Sterling Ortiz MD Oct 27, 2017 09:46
--- NOTE | 2017-10-27 10:53 | General Progress Note ---
Assessment/Plan Assessment/Plan Assessment/Recs: 36 year old HIV/AIDS positive male who presented to the [facility] ED with poor appetite, nausea and vomiting and fever to 102. # Castlemans's disease/KS - outpatinent chemo has been received as recently as 1 month ago. Abnormal appearance of the pancreas which appears enlarged. Findings could be on the basis of pancreatitis versus pancreatic tumor versus peripancreatic adenopathy. Evidence of adenopathy involving the iliac, inguinal regions within the pelvis. Retroperitoneal adenopathy also suspected. Findings may be neoplastic or inflammatory. S/P Chemo ending 07/17/17. Last PET 08/12/17 - show stable/not worsening lymphadenopathy --> recommend to obtain VEGF, IL-6 these labs ordered but do take several days/ weeks to come back --> inflammatory makers are elevated which can be c/w flare but are fairly non- specific --> imaging is ordered as well --> outpatient f/u as well for futher therapy prn --> treat underlying HIV as per ID service # Anemia of chronic disaese -- workup has been ordered and reviewed --> esr elevated, as is crp --> transfuse if hgb <7 # DVT hx that was diagnosed at outpatient hospital --> inpatient venous duplex is negative for thromboembolism, therefore DOES not require anticoagulants --> have discussed this with patients and patient's mother # Sepsis - PNA, KS, other infection (TB?) - CXR interstitial marking but no definite acute infiltrates, effusions, or congestion, fever up to 102 # HIV - On Tivicay and Truvada and Bactrim, Unknown CD4 adn VL --> VL pending, CD4 count ordered<100 # REENA Greatly appreciate consultation. Subjective Constitutional: Denies: no symptoms, chills, diaphoresis, fever, malaise, weakness, other HEENT: Denies: no symptoms, eye pain, blurred vision, tearing, double vision, ear pain, ear discharge, nose pain, nose congestion, throat pain, throat swelling, mouth pain, mouth swelling, other Cardiovascular: Denies: no symptoms, chest pain, edema, irregular heart rate, lightheadedness, palpitations, syncope, other Respiratory: Denies: no symptoms, cough, orthopnea, shortness of breath, SOB with excertion, SOB at rest, sputum, stridor, wheezing, other Gastrointestinal/Abdominal: Denies: no symptoms, abdomen distended, abdominal pain, black stools, tarry stools, blood in stool, constipated, diarrhea, difficulty swallowing, nausea, poor appetite, poor fluid intake, rectal bleeding , vomiting, other Genitourinary: Denies: no symptoms, burning, discharge, frequency, flank pain, hematuria, incontinence, pain, urgency, other Neurologic/Psychiatric: Denies: no symptoms, anxiety, depressed, emotional problems, headache, numbness, paresthesia, pre-existing deficit, seizure, tingling, tremors, weakness, other Endocrine: Denies: no symptoms, excessive sweating, flushing, intolerance to cold, intolerance to heat, increased hunger, increased thirst, increased urine, unexplained weight gain, unexplained weight loss, other Hematologic/Lymphatic: Denies: no symptoms, anemia, easy bleeding, easy bruising, other Allergies: Coded Allergies: No Known Allergies (Unverified , 10/21/17) Subjective continues to have mild fevers (last was 10/25), no chills, no night sweats Objective Last 24 Hour Vital Signs Date Time Temp Pulse Resp B/P (MAP) Pulse Ox O2 Delivery O2 Flow Rate FiO2 10/27/17 09:00 Room Air 10/27/17 08:00 97.1 89 18 103/64 (77) 96 97.1 10/27/17 06:12 96.4 10/27/17 04:00 96.4 91 19 100/61 (74) 96 96.4 10/27/17 00:00 97.7 103 19 106/67 (80) 97 97.7 10/26/17 21:00 Room Air 10/26/17 20:00 98.2 103 19 101/65 (77) 95 98.2 10/26/17 16:00 98.4 105 18 115/69 (84) 97 98.4 10/26/17 12:00 98.2 98 18 101/56 (71) 90 98.2 Intake and Output 10/26/17 10/27/17 19:00 07:00 Intake Total 1255 ml Output Total 550 ml Balance 1255 ml -550 ml Intake Oral 1100 ml IV Total 155 ml Output Urine Total 550 ml # Voids 6 Laboratory Tests 10/27/17 06:35: White Blood Count 6.2, Red Blood Count 3.39L, Hemoglobin 10.5L, Hematocrit 30.6L , Mean Corpuscular Volume 90, Mean Corpuscular Hemoglobin 30.9, Mean Corpuscular Hemoglobin Concent 34.2, Red Cell Distribution Width 13.8, Platelet Count 381, Mean Platelet Volume 5.2L, Neutrophils (%) (Auto) 69.2, Lymphocytes ( %) (Auto) 16.1L, Monocytes (%) (Auto) 5.7, Eosinophils (%) (Auto) 8.5H, Basophils (%) (Auto) 0.5, Sodium Level 137, Potassium Level 3.7, Chloride Level 103, Carbon Dioxide Level 32, Anion Gap 2L, Blood Urea Nitrogen 6L, Creatinine 0.7, Estimat Glomerular Filtration Rate > 60, Glucose Level 107H, Calcium Level 8.3L, Magnesium Level 1.7L Height (Feet): 6 Height (Inches): 2.00 Weight (Pounds): 149 General Appearance: alert EENT: TMs normal Neck: normal alignment Cardiovascular: regular rhythm Respiratory/Chest: lungs clear Abdomen: non tender Extremities: non-tender Edema: 1+ Leg (L), 1+ Leg (R) Neurologic: alert Skin: warm/dry Jean Bingham MD Oct 27, 2017 10:53
[2017-10-27 12:00] VITALS: BP 108/67
[2017-10-27] MEDS: Azithromycin 250mg tab ORAL SCH (14:45)
[2017-10-27] MEDS: Morphine Sulfate 4mg/ml Inj (IV USE ONLY) IVP PRN ×2 (15:02→21:02)
[2017-10-27 16:00] VITALS: BP 106/68
--- NOTE | 2017-10-27 18:28 | Internal Med Progress Note ---
Subjective Date of Service: Oct 27, 2017 Physician Name NereidaAdam Attending Physician Alberto Gtz MD Current Medications Medications (Trade) Dose Ordered Sig/Yessica Route PRN Reason Start Time Stop Time Status Last Admin Dose Admin Acetaminophen (Tylenol) 650 mg Q6H PRN ORAL Temp > 100.5 10/25/17 01:45 11/20/17 14:39 10/25/17 13:16 Acetaminophen/ Hydrocodone Bitart ([place] 5/325) 1 tab Q6H PRN ORAL Mild Pain (Pain Scale 1-3) 10/24/17 21:30 10/31/17 21:29 Azithromycin (Zithromax) 250 mg Q24H ORAL 10/25/17 15:00 10/30/17 14:59 10/27/17 14:45 Ceftriaxone Sodium 1 gm/ Dextrose 55 ml @ 110 mls/hr Q24H IVPB 10/25/17 09:30 10/31/17 09:29 10/27/17 08:40 Heparin Sodium (Porcine) (Heparin 5000 units/ml) 5,000 units EVERY 8 HOURS SUBQ 10/25/17 14:00 11/24/17 13:59 10/27/17 14:47 Lorazepam (Ativan) 1 mg Q6H PRN ORAL For Anxiety 10/24/17 21:30 10/31/17 21:29 Magnesium Oxide (Mag-Ox 400mg) 400 mg DAILY ORAL 10/27/17 09:00 11/26/17 08:59 10/27/17 08:33 Mirtazapine (Remeron) 15 mg BEDTIME ORAL 10/25/17 21:00 11/21/17 20:59 10/26/17 21:01 Morphine Sulfate (Morphine Sulfate) 2 mg Q4H PRN IVP Moderate Pain (Pain Scale 4-6) 10/24/17 21:30 10/31/17 21:29 10/27/17 05:42 Morphine Sulfate (Morphine Sulfate) 4 mg Q4H PRN IVP Severe Pain (Pain Scale 7-10) 10/24/17 01:00 10/31/17 00:59 10/27/17 15:02 Pantoprazole (Protonix) 40 mg Q12HR ORAL 10/25/17 21:00 11/24/17 20:59 10/27/17 08:33 Patient Own Medication (Patient's Own Med) 1 ea DAILY ORAL 10/25/17 09:00 11/24/17 08:59 10/27/17 08:33 Patient Own Medication (Patient's Own Med) 1 ea DAILY ORAL 10/25/17 09:00 11/24/17 08:59 10/27/17 08:33 Trimethoprim/ Sulfamethoxazole (Bactrim-DS) 1 tab Q12HR ORAL 10/25/17 09:00 10/29/17 08:59 10/27/17 08:33 Allergies: Coded Allergies: No Known Allergies (Unverified , 10/21/17) ROS Limited/Unobtainable: No Constitutional: Reports: no symptoms HEENT: Reports: no symptoms Cardiovascular: Reports: no symptoms Respiratory: Reports: no symptoms Gastrointestinal/Abdominal: Reports: no symptoms Genitourinary: Reports: no symptoms Neurologic/Psychiatric: Reports: no symptoms Subjective 36 YO M admitted with fever and chills. Now sepsis. Cover for Int Med-Dr Gtz. Low grade fever. C/O left foot and ankle pain/swelling Objective Last Vital Signs Date Time Temp Pulse Resp B/P (MAP) Pulse Ox O2 Delivery O2 Flow Rate FiO2 10/27/17 16:00 97.7 95 18 106/68 (81) 96 97.7 10/27/17 09:00 Room Air 10/22/17 12:06 21 10/21/17 22:46 2.0 Laboratory Tests Test 10/27/17 06:35 White Blood Count 6.2 K/UL (4.8-10.8) Red Blood Count 3.39 M/UL (4.70-6.10) L Hemoglobin 10.5 G/DL (14.2-18.0) L Hematocrit 30.6 % (42.0-52.0) L Mean Corpuscular Volume 90 FL (80-99) Mean Corpuscular Hemoglobin 30.9 PG (27.0-31.0) Mean Corpuscular Hemoglobin Concent 34.2 G/DL (32.0-36.0) Red Cell Distribution Width 13.8 % (11.6-14.8) Platelet Count 381 K/UL (150-450) Mean Platelet Volume 5.2 FL (6.5-10.1) L Neutrophils (%) (Auto) 69.2 % (45.0-75.0) Lymphocytes (%) (Auto) 16.1 % (20.0-45.0) L Monocytes (%) (Auto) 5.7 % (1.0-10.0) Eosinophils (%) (Auto) 8.5 % (0.0-3.0) H Basophils (%) (Auto) 0.5 % (0.0-2.0) Sodium Level 137 MMOL/L (136-145) Potassium Level 3.7 MMOL/L (3.5-5.1) Chloride Level 103 MMOL/L (98-107) Carbon Dioxide Level 32 MMOL/L (21-32) Anion Gap 2 mmol/L (5-15) L Blood Urea Nitrogen 6 mg/dL (7-18) L Creatinine 0.7 MG/DL (0.55-1.30) Estimat Glomerular Filtration Rate > 60 mL/min (>60) Glucose Level 107 MG/DL (74-106) H Calcium Level 8.3 MG/DL (8.5-10.1) L Magnesium Level 1.7 MG/DL (1.8-2.4) L Microbiology Date/Time Source Procedure Growth Status 10/25/17 15:25 Blood Blood Culture - Preliminary NO GROWTH AFTER 24 HOURS Resulted 10/25/17 15:10 Blood Blood Culture - Preliminary NO GROWTH AFTER 24 HOURS Resulted Intake and Output 10/26/17 10/27/17 19:00 07:00 Intake Total 1255 ml Output Total 550 ml Balance 1255 ml -550 ml Intake Oral 1100 ml IV Total 155 ml Output Urine Total 550 ml # Voids 6 Objective General Appearance: alert, cachetic, thin EENT: PERRL/EOMI, normal ENT inspection Neck: non-tender, normal alignment, supple, normal inspection Cardiovascular: normal peripheral pulses, normal rate, regular rhythm, no gallop/murmur, no JVD Respiratory/Chest: chest wall non-tender, lungs clear, normal breath sounds, no respiratory distress, no accessory muscle use Abdomen: normal bowel sounds, non tender, soft, no organomegaly, no mass Extremities: normal range of motion, other - swelling left foot and ankle Edema: moderate edema 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 Continue antibiotics per ID (2) Nausea & vomiting (3) Sepsis Assessment & Plan: ?pneumonia vs left leg cellulitis source? 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
--- NOTE | 2017-10-27 19:18 | General Progress Note ---
Assessment/Plan Status: stable, progressing Assessment/Plan MDD Failure to thrive -remeron 15mg po qhs -ativan prn -provided ro/st Subjective Date patient seen: Oct 27, 2017 Neurologic/Psychiatric: Reports: anxiety, depressed, emotional problems Allergies: Coded Allergies: No Known Allergies (Unverified , 10/21/17) Subjective slept well nad Objective Last 24 Hour Vital Signs Date Time Temp Pulse Resp B/P (MAP) Pulse Ox O2 Delivery O2 Flow Rate FiO2 10/27/17 16:00 97.7 95 18 106/68 (81) 96 97.7 10/27/17 12:00 98.0 91 18 108/67 (81) 97 98.0 10/27/17 09:00 Room Air 10/27/17 08:00 97.1 89 18 103/64 (77) 96 97.1 10/27/17 06:12 96.4 10/27/17 04:00 96.4 91 19 100/61 (74) 96 96.4 10/27/17 00:00 97.7 103 19 106/67 (80) 97 97.7 10/26/17 21:00 Room Air 10/26/17 20:00 98.2 103 19 101/65 (77) 95 98.2 Intake and Output 10/26/17 10/27/17 19:00 07:00 Intake Total 1255 ml Output Total 550 ml Balance 1255 ml -550 ml Intake Oral 1100 ml IV Total 155 ml Output Urine Total 550 ml # Voids 6 Laboratory Tests 10/27/17 06:35: White Blood Count 6.2, Red Blood Count 3.39L, Hemoglobin 10.5L, Hematocrit 30.6L , Mean Corpuscular Volume 90, Mean Corpuscular Hemoglobin 30.9, Mean Corpuscular Hemoglobin Concent 34.2, Red Cell Distribution Width 13.8, Platelet Count 381, Mean Platelet Volume 5.2L, Neutrophils (%) (Auto) 69.2, Lymphocytes ( %) (Auto) 16.1L, Monocytes (%) (Auto) 5.7, Eosinophils (%) (Auto) 8.5H, Basophils (%) (Auto) 0.5, Sodium Level 137, Potassium Level 3.7, Chloride Level 103, Carbon Dioxide Level 32, Anion Gap 2L, Blood Urea Nitrogen 6L, Creatinine 0.7, Estimat Glomerular Filtration Rate > 60, Glucose Level 107H, Calcium Level 8.3L, Magnesium Level 1.7L Height (Feet): 6 Height (Inches): 2.00 Weight (Pounds): 149 General Appearance: no apparent distress, alert Neurologic: oriented x 3, responsive, depressed affect Rajinder Hebert MD Oct 27, 2017 19:18
[2017-10-27 20:00] VITALS: BP 111/69
[2017-10-28] VITALS: BP 117/76
[2017-10-28 04:00] VITALS: BP 105/58
[2017-10-28] MEDS: Heparin 5000 units/ml inj SUBQ SCH ×2 (05:59→14:00)
[2017-10-28 06:51] LABS: BASOPHILS % (AUTO) 0.9 % (0.0-2.0); EOSINOPHILS % (AUTO) 8.3 % (0.0-3.0); HEMATOCRIT 28.1 % (42.0-52.0); HEMOGLOBIN 9.7 G/DL (14.2-18.0); LYMPHOCYTES % (AUTO) 20.5 % (20.0-45.0); MEAN CORPUSCULAR VOLUME 91 FL (80-99); MONOCYTES % (AUTO) 7.8 % (1.0-10.0); NEUTROPHILS % (AUTO) 62.5 % (45.0-75.0); PLATELET COUNT 381 K/UL (150-450); RED BLOOD COUNT 3.09 M/UL (4.70-6.10); RED CELL DISTRIBUTION WIDTH 14.2 % (11.6-14.8); WHITE BLOOD COUNT 5.3 K/UL (4.8-10.8)
[2017-10-28 06:58] LABS: ANION GAP 2 mmol/L (5-15); BLOOD UREA NITROGEN 5 mg/dL (7-18); CALCIUM 8.2 MG/DL (8.5-10.1); CARBON DIOXIDE 31 MMOL/L (21-32); CHLORIDE 102 MMOL/L (98-107); CREATININE 0.8 MG/DL (0.55-1.30); POTASSIUM 3.9 MMOL/L (3.5-5.1); SODIUM 135 MMOL/L (136-145)
[2017-10-28 08:00] VITALS: BP 102/56
--- NOTE | 2017-10-28 08:34 | Infectious Diseases Prog Note ---
Assessment/Plan Assessment/Plan 36 year old HIV/AIDS positive male who presented to the [place] ED with poor appetite, nausea and vomiting and fever to 102. Sepsis - Pancreatitis, Castleman's, PNA, KS, other infection (TB?) 10/22/17- CT show reticular opacity and significant lymphadenopathy 10/23/17 - CT abd/pel Lymphadenopathy, Enlarged Pancrease mild B/L hydronephrosis 11/21/16 - Quantiferon negative (Out Side lab) Fever up to 102 - Resolved B/U/S Cx - Negative Fungal serologies pending KS/ Castlemans's disease S/P Chemo ending 07/17/17 Last PET 08/12/17 - show stable/not worsening lymphadenopathy Seen by Oncology HIV - On Tivicay and Descovy and Bactrim HIV MD Dr. Carr No Hx of resistance. Was on Truvada Reyetaz and Norvir before 09/01/17 - CD4 192 and VL - ND (Out Side labs) 10/24/17 CD4 87 and VL - Pend Has been above 200 in the past. Came down with Chemo Chronic Hep B, VL <15 09/01/17 DVT - On Enoxaparin 10/23/17 - Dopler Negative for DVT Anemia REENA P: Continue Ceftriaxone #/, Azithromycin #/ - Stop abx tomorrow of afebrile as no clear infection found will treat for probable CAP Change Bactrim to PPX dosing 1 DS Qday Continue Home HIV meds Tivicay and Descovy - 10/28 SP Bactrim Tx dose - 10/24 SP Cefepime # 2 - f/u B/U/S Cx - Monitor CBC and Temps - f/u serologies We will continue to follow the patient with you. Subjective Allergies: Coded Allergies: No Known Allergies (Unverified , 10/21/17) Subjective Patient feeling well Low grade fevers resolved for >72 hrs Objective Vital Signs Last 24 Hour Vital Signs Date Time Temp Pulse Resp B/P (MAP) Pulse Ox O2 Delivery O2 Flow Rate FiO2 10/28/17 04:00 99.3 71 19 105/58 (74) 98 99.3 10/28/17 00:00 98.4 97 20 117/76 (90) 95 98.4 10/27/17 21:32 97.7 10/27/17 21:02 97.7 10/27/17 21:00 Room Air 10/27/17 20:00 98.5 102 19 111/69 (83) 95 98.5 10/27/17 16:00 97.7 95 18 106/68 (81) 96 97.7 10/27/17 12:00 98.0 91 18 108/67 (81) 97 98.0 10/27/17 09:00 Room Air Height (Feet): 6 Height (Inches): 2.00 Weight (Pounds): 150 Objective GENERAL: Thin male, Comfortable HEENT: NCAT, MMM, EOMI left eye with some deviation (Not new per patient) CARDIOVASCULAR: RRR, S1, S2, No M/R/G LUNGS: CTAB, No W/C ABDOMEN: Soft, NT, ND, +BS, EXTREMITIES: No cyanosis, clubbing. Pulses 1+ DP, 2+ Rad B/L,Left foot and leg with edema to knee (no warmth but some what painful) improved, Right foot with edema SKIN: Multiple dark skin lesion/crusting of feet and shins B/L, NEUROLOGIC: A/Ox4, Grossly non focal Microbiology Date/Time Source Procedure Growth Status 10/25/17 15:25 Blood Blood Culture - Preliminary NO GROWTH AFTER 48 HOURS Resulted 10/25/17 15:10 Blood Blood Culture - Preliminary NO GROWTH AFTER 48 HOURS Resulted Laboratory Tests Test 10/28/17 06:15 White Blood Count 5.3 K/UL (4.8-10.8) Red Blood Count 3.09 M/UL (4.70-6.10) L Hemoglobin 9.7 G/DL (14.2-18.0) L Hematocrit 28.1 % (42.0-52.0) L Mean Corpuscular Volume 91 FL (80-99) Mean Corpuscular Hemoglobin 31.5 PG (27.0-31.0) H Mean Corpuscular Hemoglobin Concent 34.6 G/DL (32.0-36.0) Red Cell Distribution Width 14.2 % (11.6-14.8) Platelet Count 381 K/UL (150-450) Mean Platelet Volume 5.0 FL (6.5-10.1) L Neutrophils (%) (Auto) 62.5 % (45.0-75.0) Lymphocytes (%) (Auto) 20.5 % (20.0-45.0) Monocytes (%) (Auto) 7.8 % (1.0-10.0) Eosinophils (%) (Auto) 8.3 % (0.0-3.0) H Basophils (%) (Auto) 0.9 % (0.0-2.0) Sodium Level 135 MMOL/L (136-145) L Potassium Level 3.9 MMOL/L (3.5-5.1) Chloride Level 102 MMOL/L (98-107) Carbon Dioxide Level 31 MMOL/L (21-32) Anion Gap 2 mmol/L (5-15) L Blood Urea Nitrogen 5 mg/dL (7-18) L Creatinine 0.8 MG/DL (0.55-1.30) Estimat Glomerular Filtration Rate > 60 mL/min (>60) Glucose Level 104 MG/DL (74-106) Calcium Level 8.2 MG/DL (8.5-10.1) L Current Medications Medications (Trade) Dose Ordered Sig/Yessica Route PRN Reason Start Time Stop Time Status Last Admin Dose Admin Acetaminophen (Tylenol) 650 mg Q6H PRN ORAL Temp > 100.5 10/25/17 01:45 11/20/17 14:39 10/25/17 13:16 Acetaminophen/ Hydrocodone Bitart ([place] 5/325) 1 tab Q6H PRN ORAL Mild Pain (Pain Scale 1-3) 10/24/17 21:30 10/31/17 21:29 Azithromycin (Zithromax) 250 mg Q24H ORAL 10/25/17 15:00 10/30/17 14:59 10/27/17 14:45 Ceftriaxone Sodium 1 gm/ Dextrose 55 ml @ 110 mls/hr Q24H IVPB 10/25/17 09:30 10/31/17 09:29 10/27/17 08:40 Heparin Sodium (Porcine) (Heparin 5000 units/ml) 5,000 units EVERY 8 HOURS SUBQ 10/25/17 14:00 11/24/17 13:59 10/28/17 05:59 Lorazepam (Ativan) 1 mg Q6H PRN ORAL For Anxiety 10/24/17 21:30 10/31/17 21:29 Magnesium Oxide (Mag-Ox 400mg) 400 mg DAILY ORAL 10/27/17 09:00 11/26/17 08:59 10/27/17 08:33 Mirtazapine (Remeron) 15 mg BEDTIME ORAL 10/25/17 21:00 11/21/17 20:59 10/27/17 21:02 Morphine Sulfate (Morphine Sulfate) 2 mg Q4H PRN IVP Moderate Pain (Pain Scale 4-6) 10/24/17 21:30 10/31/17 21:29 10/27/17 05:42 Morphine Sulfate (Morphine Sulfate) 4 mg Q4H PRN IVP Severe Pain (Pain Scale 7-10) 10/24/17 01:00 10/31/17 00:59 10/27/17 21:02 Pantoprazole (Protonix) 40 mg Q12HR ORAL 10/25/17 21:00 11/24/17 20:59 10/27/17 21:02 Patient Own Medication (Patient's Own Med) 1 ea DAILY ORAL 10/25/17 09:00 11/24/17 08:59 10/27/17 08:33 Patient Own Medication (Patient's Own Med) 1 ea DAILY ORAL 10/25/17 09:00 11/24/17 08:59 10/27/17 08:33 Trimethoprim/ Sulfamethoxazole (Bactrim-DS) 1 tab Q12HR ORAL 10/25/17 09:00 10/29/17 08:59 10/27/17 21:02 Sterling Ortiz MD Oct 28, 2017 08:34
[2017-10-28] MEDS: Magnesium Oxide 400mg tab ORAL SCH (08:55)
[2017-10-28] MEDS: TRUVADA ORAL SCH (08:55)
[2017-10-28] MEDS: cefTRIAXone 1 GM in D5W 55 ML IVPB SCH (08:55)
[2017-10-28] MEDS: TIVICAY 50 MG ORAL SCH (08:55)
[2017-10-28] MEDS ORDERED: Bactrim-DS 1 tab ORAL SCH (09:00)
[2017-10-28 12:00] VITALS: BP 110/70
[2017-10-28] MEDS ORDERED: ZITHROMAX250 MG ORAL (13:09)
[2017-10-28] MEDS ORDERED: BACTRIM-DS1 EA ORAL (13:09)
[2017-10-28] MEDS ORDERED: MIRTAZAPINE15 M3 ORAL (13:09)
--- NOTE | 2017-10-28 13:13 | Pulmonology Progress Note ---
Assessment/Plan Problems: (1) Septic shock Assessment & Plan: better (2) ATN (acute tubular necrosis) (3) HIV disease (4) Kaposi disease (5) Castleman disease (6) CAP (community acquired pneumonia) (7) Interstitial pneumonia Assessment/Plan afebrile check electrolytes ID f/u symptomatic treatment med/surg pt wants to go home today Subjective ROS Limited/Unobtainable: No Interval Events: no new complains, wants to go home Allergies: Coded Allergies: No Known Allergies (Unverified , 10/21/17) Objective Last 24 Hour Vital Signs Date Time Temp Pulse Resp B/P (MAP) Pulse Ox O2 Delivery O2 Flow Rate FiO2 10/28/17 12:00 98.2 86 20 110/70 (83) 98 98.2 10/28/17 09:00 Room Air 10/28/17 08:00 97.6 90 20 102/56 (71) 96 97.6 10/28/17 04:00 99.3 71 19 105/58 (74) 98 99.3 10/28/17 00:00 98.4 97 20 117/76 (90) 95 98.4 10/27/17 21:32 97.7 10/27/17 21:02 97.7 10/27/17 21:00 Room Air 10/27/17 20:00 98.5 102 19 111/69 (83) 95 98.5 10/27/17 16:00 97.7 95 18 106/68 (81) 96 97.7 Intake and Output 10/27/17 10/28/17 19:00 07:00 Intake Total 175 ml Output Total 1000 ml Balance 175 ml -1000 ml Intake Oral 120 ml IV Total 55 ml Output Urine Total 1000 ml # Voids 3 General Appearance: cachetic HEENT: normocephalic, atraumatic Respiratory/Chest: chest wall non-tender, lungs clear Cardiovascular: normal peripheral pulses, normal rate Abdomen: normal bowel sounds, no organomegaly, no scars Extremities: no cyanosis Skin: no rash Microbiology Date/Time Source Procedure Growth Status 10/25/17 15:25 Blood Blood Culture - Preliminary NO GROWTH AFTER 48 HOURS Resulted 10/25/17 15:10 Blood Blood Culture - Preliminary NO GROWTH AFTER 48 HOURS Resulted Laboratory Tests 10/28/17 06:15: White Blood Count 5.3, Red Blood Count 3.09L, Hemoglobin 9.7L, Hematocrit 28.1L , Mean Corpuscular Volume 91, Mean Corpuscular Hemoglobin 31.5H, Mean Corpuscular Hemoglobin Concent 34.6, Red Cell Distribution Width 14.2, Platelet Count 381, Mean Platelet Volume 5.0L, Neutrophils (%) (Auto) 62.5, Lymphocytes ( %) (Auto) 20.5, Monocytes (%) (Auto) 7.8, Eosinophils (%) (Auto) 8.3H, Basophils (%) (Auto) 0.9, Sodium Level 135L, Potassium Level 3.9, Chloride Level 102, Carbon Dioxide Level 31, Anion Gap 2L, Blood Urea Nitrogen 5L, Creatinine 0.8, Estimat Glomerular Filtration Rate > 60, Glucose Level 104, Calcium Level 8.2L Current Medications Medications (Trade) Dose Ordered Sig/Yessica Route PRN Reason Start Time Stop Time Status Last Admin Dose Admin Acetaminophen (Tylenol) 650 mg Q6H PRN ORAL Temp > 100.5 10/25/17 01:45 11/20/17 14:39 10/25/17 13:16 Acetaminophen/ Hydrocodone Bitart ([place] 5/325) 1 tab Q6H PRN ORAL Mild Pain (Pain Scale 1-3) 10/24/17 21:30 10/31/17 21:29 Azithromycin (Zithromax) 250 mg Q24H ORAL 10/25/17 15:00 10/30/17 14:59 10/27/17 14:45 Ceftriaxone Sodium 1 gm/ Dextrose 55 ml @ 110 mls/hr Q24H IVPB 10/25/17 09:30 10/31/17 09:29 10/28/17 08:55 Heparin Sodium (Porcine) (Heparin 5000 units/ml) 5,000 units EVERY 8 HOURS SUBQ 10/25/17 14:00 11/24/17 13:59 10/28/17 05:59 Lorazepam (Ativan) 1 mg Q6H PRN ORAL For Anxiety 10/24/17 21:30 10/31/17 21:29 Magnesium Oxide (Mag-Ox 400mg) 400 mg DAILY ORAL 10/27/17 09:00 11/26/17 08:59 10/28/17 08:55 Mirtazapine (Remeron) 15 mg BEDTIME ORAL 10/25/17 21:00 10/18 20:59 10/27/17 21:02 Morphine Sulfate (Morphine Sulfate) 2 mg Q4H PRN IVP Moderate Pain (Pain Scale 4-6) 10/24/17 21:30 10/31/17 21:29 10/27/17 05:42 Morphine Sulfate (Morphine Sulfate) 4 mg Q4H PRN IVP Severe Pain (Pain Scale 7-10) 10/24/17 01:00 10/31/17 00:59 10/27/17 21:02 Pantoprazole (Protonix) 40 mg Q12HR ORAL 10/25/17 21:00 11/24/17 20:59 10/28/17 08:55 Patient Own Medication (Patient's Own Med) 1 ea DAILY ORAL 10/25/17 09:00 11/24/17 08:59 10/28/17 08:55 Patient Own Medication (Patient's Own Med) 1 ea DAILY ORAL 10/25/17 09:00 11/24/17 08:59 10/28/17 08:55 Trimethoprim/ Sulfamethoxazole (Bactrim-DS) 1 tab DAILY ORAL 10/28/17 09:00 11/04/17 08:59 10/28/17 08:55 Ya Hester MD Oct 28, 2017 13:13
--- NOTE | 2017-10-28 15:16 | General Progress Note ---
Assessment/Plan Assessment/Plan Assessment/Recs: 36 year old HIV/AIDS positive male who presented to the [place] ED with poor appetite, nausea and vomiting and fever to 102. # Castlemans's disease/KS - outpatinent chemo has been received as recently as 1 month ago. Abnormal appearance of the pancreas which appears enlarged. Findings could be on the basis of pancreatitis versus pancreatic tumor versus peripancreatic adenopathy. Evidence of adenopathy involving the iliac, inguinal regions within the pelvis. Retroperitoneal adenopathy also suspected. Findings may be neoplastic or inflammatory. S/P Chemo ending 07/17/17. Last PET 08/12/17 - show stable/not worsening lymphadenopathy --> recommend to obtain VEGF, IL-6 these labs ordered but do take several days/ weeks to come back --> inflammatory makers are elevated which can be c/w flare but are fairly non- specific --> imaging is ordered as well --> outpatient f/u as well for futher therapy prn --> treat underlying HIV as per ID service # Anemia of chronic disaese -- workup has been ordered and reviewed --> esr elevated, as is crp --> transfuse if hgb <7 # DVT hx that was diagnosed at outpatient hospital --> inpatient venous duplex is negative for thromboembolism, therefore DOES not require anticoagulants --> have discussed this with patients and patient's mother # Sepsis - PNA, KS, other infection, TB? - CXR interstitial marking but no definite acute infiltrates, effusions, or congestion # HIV - On Tivicay and Truvada and Bactrim, Unknown CD4 adn VL --> VL pending, CD4 count ordered<100 # REENA Greatly appreciate consultation. Subjective Constitutional: Denies: no symptoms, chills, diaphoresis, fever, malaise, weakness, other HEENT: Denies: no symptoms, eye pain, blurred vision, tearing, double vision, ear pain, ear discharge, nose pain, nose congestion, throat pain, throat swelling, mouth pain, mouth swelling, other Cardiovascular: Denies: no symptoms, chest pain, edema, irregular heart rate, lightheadedness, palpitations, syncope, other Respiratory: Denies: no symptoms, cough, orthopnea, shortness of breath, SOB with excertion, SOB at rest, sputum, stridor, wheezing, other Gastrointestinal/Abdominal: Denies: no symptoms, abdomen distended, abdominal pain, black stools, tarry stools, blood in stool, constipated, diarrhea, difficulty swallowing, nausea, poor appetite, poor fluid intake, rectal bleeding , vomiting, other Genitourinary: Denies: no symptoms, burning, discharge, frequency, flank pain, hematuria, incontinence, pain, urgency, other Neurologic/Psychiatric: Denies: no symptoms, anxiety, depressed, emotional problems, headache, numbness, paresthesia, pre-existing deficit, seizure, tingling, tremors, weakness, other Endocrine: Denies: no symptoms, excessive sweating, flushing, intolerance to cold, intolerance to heat, increased hunger, increased thirst, increased urine, unexplained weight gain, unexplained weight loss, other Hematologic/Lymphatic: Denies: no symptoms, anemia, easy bleeding, easy bruising, other Allergies: Coded Allergies: No Known Allergies (Unverified , 10/21/17) Subjective continues to have mild fevers, no chills, no night sweats Objective Last 24 Hour Vital Signs Date Time Temp Pulse Resp B/P (MAP) Pulse Ox O2 Delivery O2 Flow Rate FiO2 10/28/17 12:00 98.2 86 20 110/70 (83) 98 98.2 10/28/17 09:00 Room Air 10/28/17 08:00 97.6 90 20 102/56 (71) 96 97.6 10/28/17 04:00 99.3 71 19 105/58 (74) 98 99.3 10/28/17 00:00 98.4 97 20 117/76 (90) 95 98.4 10/27/17 21:32 97.7 10/27/17 21:02 97.7 10/27/17 21:00 Room Air 10/27/17 20:00 98.5 102 19 111/69 (83) 95 98.5 10/27/17 16:00 97.7 95 18 106/68 (81) 96 97.7 Intake and Output 10/27/17 10/28/17 19:00 07:00 Intake Total 175 ml Output Total 1000 ml Balance 175 ml -1000 ml Intake Oral 120 ml IV Total 55 ml Output Urine Total 1000 ml # Voids 3 Laboratory Tests 10/28/17 06:15: White Blood Count 5.3, Red Blood Count 3.09L, Hemoglobin 9.7L, Hematocrit 28.1L , Mean Corpuscular Volume 91, Mean Corpuscular Hemoglobin 31.5H, Mean Corpuscular Hemoglobin Concent 34.6, Red Cell Distribution Width 14.2, Platelet Count 381, Mean Platelet Volume 5.0L, Neutrophils (%) (Auto) 62.5, Lymphocytes ( %) (Auto) 20.5, Monocytes (%) (Auto) 7.8, Eosinophils (%) (Auto) 8.3H, Basophils (%) (Auto) 0.9, Sodium Level 135L, Potassium Level 3.9, Chloride Level 102, Carbon Dioxide Level 31, Anion Gap 2L, Blood Urea Nitrogen 5L, Creatinine 0.8, Estimat Glomerular Filtration Rate > 60, Glucose Level 104, Calcium Level 8.2L Height (Feet): 6 Height (Inches): 2.00 Weight (Pounds): 150 General Appearance: no apparent distress EENT: normal ENT inspection Neck: supple Cardiovascular: regular rhythm Respiratory/Chest: lungs clear Abdomen: non tender Extremities: normal inspection Edema: no edema noted Leg (L), no edema noted Leg (R) Edema: mild edema Neurologic: alert Skin: warm/dry Jean Bingham MD Oct 28, 2017 15:16
[2017-10-28] MEDS: Azithromycin 250mg tab ORAL SCH (15:33)
--- NOTE | 2017-10-28 19:33 | General Progress Note ---
Assessment/Plan Status: stable, progressing Assessment/Plan MDD Failure to thrive -remeron 15mg po qhs -ativan prn -provided ro/st Subjective Date patient seen: Oct 28, 2017 Neurologic/Psychiatric: Reports: anxiety, depressed, emotional problems Allergies: Coded Allergies: No Known Allergies (Unverified , 10/21/17) Subjective slept well nad Objective Last 24 Hour Vital Signs Date Time Temp Pulse Resp B/P (MAP) Pulse Ox O2 Delivery O2 Flow Rate FiO2 10/28/17 12:00 98.2 86 20 110/70 (83) 98 98.2 10/28/17 09:00 Room Air 10/28/17 08:00 97.6 90 20 102/56 (71) 96 97.6 10/28/17 04:00 99.3 71 19 105/58 (74) 98 99.3 10/28/17 00:00 98.4 97 20 117/76 (90) 95 98.4 10/27/17 21:32 97.7 10/27/17 21:02 97.7 10/27/17 21:00 Room Air 10/27/17 20:00 98.5 102 19 111/69 (83) 95 98.5 Intake and Output 10/27/17 10/28/17 19:00 07:00 Intake Total 175 ml Output Total 1000 ml Balance 175 ml -1000 ml Intake Oral 120 ml IV Total 55 ml Output Urine Total 1000 ml # Voids 3 Laboratory Tests 10/28/17 06:15: White Blood Count 5.3, Red Blood Count 3.09L, Hemoglobin 9.7L, Hematocrit 28.1L , Mean Corpuscular Volume 91, Mean Corpuscular Hemoglobin 31.5H, Mean Corpuscular Hemoglobin Concent 34.6, Red Cell Distribution Width 14.2, Platelet Count 381, Mean Platelet Volume 5.0L, Neutrophils (%) (Auto) 62.5, Lymphocytes ( %) (Auto) 20.5, Monocytes (%) (Auto) 7.8, Eosinophils (%) (Auto) 8.3H, Basophils (%) (Auto) 0.9, Sodium Level 135L, Potassium Level 3.9, Chloride Level 102, Carbon Dioxide Level 31, Anion Gap 2L, Blood Urea Nitrogen 5L, Creatinine 0.8, Estimat Glomerular Filtration Rate > 60, Glucose Level 104, Calcium Level 8.2L Height (Feet): 6 Height (Inches): 2.00 Weight (Pounds): 150 General Appearance: no apparent distress, alert Neurologic: oriented x 3, responsive, depressed affect Rajinder Hebert MD Oct 28, 2017 19:33
--- NOTE | 2017-10-30 11:07 | Discharge Summary ---
Discharge Summary Discharge Summary _ DATE OF ADMISSION: 10/21/2017 DATE OF DISCHARGE: 2017 REASON FOR ADMISSION: 36 years old male with past medical history of HIV, diagnosed in 1999, Kaposi' s sarcoma, status post chemotherapy 1 month ago, Castleman's disease , initially presented to [facility] emergency department complaining of nausea ,vomiting, poor appetite for one week. Patient reported fevers up to 102. Patient was tachycardic with heart rate 150-180. Patient was transferred to [facility] for further management for insurance purposes. Patient was found to be febrile, hypotensive . Chest x-ray from [place] revealed prominent interstitial marking in the right lower lung otherwise no definite infiltrates. Chest x-ray at [place] revealed revealed questionable ill defined mostly interstitial infiltrates in the right lower lung Laboratory workup reveled creatinine 1.4 hemoglobin 10.3 hematocrit 30.4 . WBC 10.8. Patient on antiretroviral therapy, but did not remember name of medications, Patient was not aware of CD4 cell count or viral load. Patient admitted with diagnoses of septic shock, sepsis, interstitial pneumonia , acute tubular necrosis ,HIV status, Kaposi's sarcoma , Castleman's disease. CONSULTANTS: pulmonary Dr. Hester ID specialist Kelly cafeteria worker/oncologist Dr. Bingham psychiatrist [facility] COURSE: Patient admitted initially to respiratory isolation. . Patient srated on IVF. Blood rpessure was closely monitored,. Blood pressure responded to intravenous hydration, no need for pressors. Patient started on empiric antibiotics as per ID specialist directions. Kiln Tender closely followed. Patient subsequently undergone CT of the chest which revealed small right pleural effusion with resultant compressive atelectasis at the right lower lobe PE. Bilateral upper lung bullae. Reticular opacity surrounding right lateral basilar segmental bronchi Bilateral axillary lymphadenopathy. Supplemental oxygen titrated to keep pulse oximetry above 92%. Pulmonary toilet provided as needed. Blood culture were negative. Urine culture was negative. Sputum smear for AFB was negative 1 . The next day after admission , patient developed leukocytosis . Patient had intermittent high fevers. Antibiotic regimen optimized as per ID specialist suggestions . PPD negative. TB spot negative Fungal serology for Blastomyces, cryptococci , histoplasma all negative. Serology for cocci still pending. Noted elevated IgG antibody for CMV, evidence of prior infection T-cell subsets revealed CD4 count of 87. Patient status post chemotherapy 07/17 . Last PET scan 08/12 was stable and revealed no change in lymphadenopathy. Antiretroviral therapy was resumed as per ID specialist recommendations. Renal parameters and electrolytes were closely monitored. Electrolytes replaced as needed. Nephrotoxins were avoided. Acute kidney injury resolved,likely was due to dehydration and sepsis dye to unstable hemodynamics ( hypotension) . Venous duplex bilateral lower extremity was negative. Echocardiogram revealed preserved ejection fraction 55-60% , right ventricular systolic pressure of 39. Account Executive Agribusiness/ oncologist followed. Anemia workup was consistent with anemia of chronic disease. Hemoglobin and hematocrit were closely monitored with goal to keep hemoglobin above 7. CEA within normal limits. DVT prophylaxis provided. GI prophylaxis provided. Information Technology Analyst recommendations implemented in plan of care to improve nutritional status. Psychiatrist followed. Psychiatric medication regimen was optimized as per psychiatrist. Pain management was addressed as needed. Supportive care provided as needed. Leukocytosis resolved, no fevers for 48 hrs prior to discharge. Patient clinically improved. Patient was stable for discharge home . Outpatient follow-up with HIV provider and primary care provider. FINAL DIAGNOSES: Sepsis with shock Interstitial pneumonia Kaposi's sarcoma Castleman's disease HIV/AIDS (CD4 - 87) Acute tubular necrosis, resolved Severe protein calorie malnutrition Chronic hepatitis B Major depressive disorder Anemia of chronic disease Mild pulmonary hypertension Electrolyte imbalance( hypokalemia, hypomagnesemia, hypophosphatemia) Positive CMV antibody titer DISCHARGE MEDICATIONS: See Medication Reconciliation list. DISCHARGE INSTRUCTIONS: Patient was discharged home Follow up with primary care provider in one week. Follow-up with the HIV provider in one to 2 weeks Gerri Almeida NP Oct 30, 2017 11:07
== END 2017-10-28 15:50 | disposition home or self-care (01) | DRG 974 ==
LOC: 2E 19:30 → ICU 21:51 → 2E 10-23 13:40 → 4E 10-24 21:55
DX: A41.9 Sepsis, unspecified organism (principal); B20 Human immunodeficiency virus [HIV] disease; N17.0 Acute kidney failure with tubular necrosis; E43 Unspecified severe protein-calorie malnutrition; R65.21 Severe sepsis with septic shock; D47.Z2 Castleman disease; C46.9 Kaposi's sarcoma, unspecified; J84.9 Interstitial pulmonary disease, unspecified; B18.1 Chronic viral hepatitis B without delta-agent; F32.9 Major depressive disorder, single episode, unspecified; R62.7 Adult failure to thrive; D63.8 Anemia in other chronic diseases classified elsewhere; I27.20 Pulmonary hypertension, unspecified; E87.6 Hypokalemia; E83.42 Hypomagnesemia; E83.39 Other disorders of phosphorus metabolism
CPT/HCPCS: 36415; 36600; 71045; 71260; 74176; 76700; 80048; 80053; 81001; 82164; 82378; 82550; 82607; 82728; 82746; 82803; 83520; 83540; 83550; 83605; 83615; 83690; 83735; 84100; 84133; 84300; 84550; 85007; 85025; 85044; 85060; 85610; 85651; 85730; 86140; 86171; 86360; 86580; 86612; 86635; 86644; 86689; 86703; 86705; 86709; 86803; 87040; 87081; 87086; 87116; 87340; 87385; 87449; 87536; 89050; 93306; 93970; 94640; 94664; J8499

== ENCOUNTER 2018-05-12 20:02 | Inpatient (IN) | payer MEDICARE, OTHER ==
[~2018-05-12] VITALS: Ht 180.3 cm; Wt 60.4 kg
[~2018-05-12 20:02] MED LIST changes: +BACTRIM-DS1 EA ORAL; +MIRTAZAPINE15 M3 ORAL; -NS Irrig 1000ml ONE; -Sterile Water Irrig 1000ml IRRIG ONE; +ZITHROMAX250 MG ORAL
[2018-05-12] MEDS ORDERED: NKM (20:04)
[2018-05-12 20:25] VITALS: BP 96/59
--- NOTE | 2018-05-12 20:25 | NUR ---
ED Nurse Note: patient was brought in by RA from home, complaining of abdomional pain, N/V. Patient has Kaposi Sarcoma, Castloman's disease, but there are no open wounds. AAO x4, HR is 135, other VSS. Will continue to monitor.
--- NOTE | 2018-05-12 20:33 | Emergency Room Report ---
History of Present Illness General Chief Complaint: Generalized Weakness Source: Patient, EMS Present Illness HPI 37-year-old male who has a past medical history is of HIV currently on treatment , also history of Kaposi sarcoma status post chemotherapy, presenting with nausea vomiting diarrhea, generalized weakness for the last 4 days, feeling very dizzy when he gets up. No blood in vomit or diarrhea. Not currently on any chemotherapy. Denies any fever any chills Allergies: Coded Allergies: No Known Allergies (Unverified , 10/21/17) Patient History Past Medical History: see triage record Past Surgical History: none Pertinent Family History: none Reviewed Nursing Documentation: PMH: Agreed; PSxH: Agreed Nursing Documentation-PMH Past Medical History: No History, Except For Hx Cardiac Problems: Yes Hx Cancer: Yes - Kaposi Sarcoma, Castleman's Disease Hx Gastrointestinal Problems: No Hx Neurological Problems: No Review of Systems All Other Systems: negative except mentioned in HPI Physical Exam Vital Signs Date Time Temp Pulse Resp B/P (MAP) Pulse Ox O2 Delivery O2 Flow Rate FiO2 05/12/18 20:00 99.7 128 24 96/59 100 Room Air Sp02 EP Interpretation: reviewed, normal General Appearance: alert, GCS 15, non-toxic, moderate distress Head: normocephalic, atraumatic Eyes: bilateral eye normal inspection, bilateral eye PERRL, bilateral eye EOMI ENT: normal ENT inspection, normal pharynx, normal voice, moist mucus membranes Neck: normal inspection, full range of motion, supple Respiratory: normal inspection, lungs clear, normal breath sounds, no respiratory distress, no retraction, no wheezing, speaking full sentences, chest symmetrical Cardiovascular #1: no edema, tachycardia Cardiovascular #2: 2+ radial (R), 2+ radial (L) Gastrointestinal: other - Nontender entire abdomen Genitourinary: no CVA tenderness Musculoskeletal: normal inspection, back normal, normal range of motion, non- tender Neurologic: normal inspection, alert, oriented x3, responsive, motor strength/ tone normal, sensory intact, normal gait, speech normal Psychiatric: normal inspection, judgement/insight normal, memory normal Skin: other - Chronic dark rash noted on bilateral legs Procedures Critical Care Time Critical Care Time Critical care time of 40 minutes, was performed in order to assess and manage the high probability of imminent or life threatening deterioration , with frequent reassessment and excludes all billable procedures. Medical Decision Making Diagnostic Impression: Primary Impression: Nausea & vomiting Additional Impression: Hypotension ER Course 37-year-old male with nausea vomiting diarrhea dizziness DDX: Sepsis, UTI, pneumonia, infectious diarrhea, dehydration, A disturbance Plan: Obtain labs, ua, EKG, CXR IV fluids ER course: Patient is given IV fluid boluses BP slightly improved zofran given he has hx of sepsis, and due to immunocompromised state, empiric abx given Signed out pt to Dr Juarez 37-year-old male HIV positive, history of Kaposi sarcoma, now with 2 days of nausea vomiting diarrhea, hypotensive. Received fluids and empiric antibiotics. Please sign out to oncoming hospitalist Please note that this Emergency Department Report was dictated using [employer] planer operator technology software, occasionally this can lead to erroneous entry secondary to interpretation by the dictation equipment. EKG Diagnostic Results EP Interpretation: Yes Rate: 130 Rhythm: NSR ST Segments: T-wave inversions noted in V3 V4 V5 V6, also ST depressions and T- wave inversions also noted in leads 23 and aVF ASA given to patient: No Rhythm Strip EP Interpretation: Yes Rate: 130 Rhythm: NSR, no PVCs, no ectopy Chest X-ray CXR: Ordered: Yes 1 view Indication: Shortness of breath EP interpretation: Yes Interpretation: No consolidation, no effusion, no PTX, no acute cardiopulmonary disease Impression: No acute disease Electronically signed by Alba Streeter MD Laboratory Tests Test 05/12/18 20:50 White Blood Count 6.1 K/UL (4.8-10.8) Red Blood Count 4.19 M/UL (4.70-6.10) L Hemoglobin 10.3 G/DL (14.2-18.0) L Hematocrit 32.2 % (42.0-52.0) L Mean Corpuscular Volume 77 FL (80-99) L Mean Corpuscular Hemoglobin 24.7 PG (27.0-31.0) L Mean Corpuscular Hemoglobin Concent 32.1 G/DL (32.0-36.0) Red Cell Distribution Width 17.8 % (11.6-14.8) H Platelet Count 193 K/UL (150-450) Mean Platelet Volume 5.0 FL (6.5-10.1) L Neutrophils (%) (Auto) 72.9 % (45.0-75.0) Lymphocytes (%) (Auto) 17.9 % (20.0-45.0) L Monocytes (%) (Auto) 7.3 % (1.0-10.0) Eosinophils (%) (Auto) 0.9 % (0.0-3.0) Basophils (%) (Auto) 1.0 % (0.0-2.0) Urine Color Mayda Urine Appearance Slightly cloudy Urine pH 6 (4.5-8.0) Urine Specific Shirley 1.010 (1.005-1.035) Urine Protein 2+ (NEGATIVE) H Urine Glucose (UA) Negative (NEGATIVE) Urine Ketones Negative (NEGATIVE) Urine Blood Negative (NEGATIVE) Urine Nitrite Negative (NEGATIVE) Urine Bilirubin 1+ (NEGATIVE) H Urine Ictotest Negative (NEGATIVE) Urine Urobilinogen 4 MG/DL (0.0-1.0) H Urine Leukocyte Esterase 1+ (NEGATIVE) H Urine RBC 0 /HPF (0 - 0) Urine WBC 10-15 /HPF (0 - 0) H Urine Squamous Epithelial Cells Occasional /LPF Urine Bacteria Few /HPF (NONE) Sodium Level 134 MMOL/L (136-145) L Potassium Level 3.9 MMOL/L (3.5-5.1) Chloride Level 96 MMOL/L (98-107) L Carbon Dioxide Level 29 MMOL/L (21-32) Anion Gap 9 mmol/L (5-15) Blood Urea Nitrogen 13 mg/dL (7-18) Creatinine 1.2 MG/DL (0.55-1.30) Estimate Glomerular Filtration Rate > 60 mL/min (>60) Glucose Level 89 MG/DL (74-106) Lactic Acid Level Pending Calcium Level 7.6 MG/DL (8.5-10.1) L Total Bilirubin 0.8 MG/DL (0.2-1.0) Aspartate Amino Transferase (AST) 14 U/L (15-37) L Alanine Aminotransferase (ALT) 7 U/L (12-78) L Alkaline Phosphatase 68 U/L (46-116) Troponin I Pending Total Protein 7.1 G/DL (6.4-8.2) Albumin 1.8 G/DL (3.4-5.0) L Globulin 5.3 g/dL Albumin/Globulin Ratio 0.3 (1.0-2.7) L Last Vital Signs Date Time Temp Pulse Resp B/P (MAP) Pulse Ox O2 Delivery O2 Flow Rate FiO2 05/12/18 20:00 99.7 128 24 96/59 100 Room Air Disposition: ADMITTED INPATIENT Condition: Critical Alba Streeter M.D. May 12, 2018 20:33
[2018-05-12] MEDS ORDERED: TRUVADA 200 MG1 EAC1 ORAL (20:44)
[2018-05-12] MEDS ORDERED: VITAMIN D1000 UNI1 ORAL (20:44)
[2018-05-12] MEDS ORDERED: TIVICAY50 MG ORAL (20:44)
--- NOTE | 2018-05-12 20:55 | NUR ---
ED Nurse Note: all labs sent down
[2018-05-12 21:18] LABS: APPEARANCE,URINE SLIGHTLY CLOUDY; BILIRUBIN, URINE 1+ (NEGATIVE); COLOR,URINE AMBER; GLUCOSE, URINE (UA) NEGATIVE (NEGATIVE); KETONES,URINE NEGATIVE (NEGATIVE); LEUKOCYTE ESTERASE ,URINE 1+ (NEGATIVE); NITRITE,URINE NEGATIVE (NEGATIVE); PH,URINE 6 (4.5-8.0); PROTEIN,URINE 2+ (NEGATIVE); UROBILINOGEN,URINE 4 MG/DL (0.0-1.0)
[2018-05-12 21:19] LABS: EOSINOPHILS % (AUTO) 0.9 % (0.0-3.0); HEMATOCRIT 32.2 % (42.0-52.0); HEMOGLOBIN 10.3 G/DL (14.2-18.0); LYMPHOCYTES % (AUTO) 17.9 % (20.0-45.0); MEAN CORPUSCULAR VOLUME 77 FL (80-99); MONOCYTES % (AUTO) 7.3 % (1.0-10.0); NEUTROPHILS % (AUTO) 72.9 % (45.0-75.0); PLATELET COUNT 193 K/UL (150-450); RED BLOOD COUNT 4.19 M/UL (4.70-6.10); RED CELL DISTRIBUTION WIDTH 17.8 % (11.6-14.8); WHITE BLOOD COUNT 6.1 K/UL (4.8-10.8)
[2018-05-12 21:40] LABS: ANION GAP 9 mmol/L (5-15); BLOOD UREA NITROGEN 13 mg/dL (7-18); CALCIUM 7.6 MG/DL (8.5-10.1); CARBON DIOXIDE 29 MMOL/L (21-32); CHLORIDE 96 MMOL/L (98-107); CREATININE 1.2 MG/DL (0.55-1.30); POTASSIUM 3.9 MMOL/L (3.5-5.1); SODIUM 134 MMOL/L (136-145)
[2018-05-12 21:45] LABS: ALANINE AMINOTRANSFERASE 7 U/L (12-78); ALBUMIN 1.8 G/DL (3.4-5.0); ALBUMIN/GLOBULIN RATIO 0.3 (1.0-2.7); ALKALINE PHOSPHATASE 68 U/L (46-116); ASPARTATE AMINO TRANSFERASE 14 U/L (15-37); BILIRUBIN,TOTAL 0.8 MG/DL (0.2-1.0)
[2018-05-12] MEDS ORDERED: Vancomycin 1.5gm Premix 275 ML IVPB ONE (21:45)
[2018-05-12] MEDS ORDERED: Cefepime HCl 2 GM in D5W 55 ML IVPB ONE (21:45)
[2018-05-12] MEDS ORDERED: Vancomycin 1.5 GM in D5W 275 ML IVPB ONE (21:45)
[2018-05-12 22:57] VITALS: BP 115/65
--- NOTE | 2018-05-12 23:04 | NUR ---
ED Nurse Note: patient is in the bed sleeping, no acute disstress noticed. VSS at this time, will continue to monitor.
--- NOTE | 2018-05-12 23:29 | NUR ---
ED Nurse Note: lactic acid resent
[2018-05-12] MEDS ORDERED: Morphine Sulfate 4mg/ml Inj (IV USE ONLY) IVP ONE (23:30)
[2018-05-13] VITALS (8 sets, daily range): BP systolic 81–148; BP diastolic 47–82
--- NOTE | 2018-05-13 00:30 | NUR ---
NURSE NOTES: Patient arrived via gurney accompanied by RN and a chemical processing technician from ER. Bed side report received from TRES Mosley Patient is currently on Room air, sp02 is 98%. Noted with IV site to right FA, 20g and is intact. Patient has skin lesions to body, predominantly to BLE R/T kaposis sarcoma. Belongings signed with TRES Mosley. Tele box put on to patient, changed gown and sheets, cleaned the patient. Bed is in lowest position. Call light is within easy reach while in bed. Paged Dr Gtz to verify admission order. Currently awaiting for call back. Will continue to monitor.
--- NOTE | 2018-05-13 01:00 | NUR ---
ED Nurse Note: patient was admited to [facility], HR 105, BP 105/65. AAO x4, patient has skin issue due to Kaposi Sarcoma. Patient was transfered by ACLS protocol.
--- NOTE | 2018-05-13 01:57 | NUR ---
NURSE NOTES: Paged Dr underwood again tp verify admission order. currently awaiting for call back.
--- NOTE | 2018-05-13 02:47 | NUR ---
NURSE NOTES: Dr underwood still has not called back. House xiomara made aware. paged Dr underwood once more. awaiting for call back .
[2018-05-13] MEDS: Metoprolol Tartrate 50mg tab ORAL SCH ×3 (05:16→20:44)
[2018-05-13 05:48] LABS: HEMATOCRIT 32.2 % (42.0-52.0); HEMOGLOBIN 10.2 G/DL (14.2-18.0); MEAN CORPUSCULAR VOLUME 77 FL (80-99); PLATELET COUNT 197 K/UL (150-450); RED BLOOD COUNT 4.19 M/UL (4.70-6.10); RED CELL DISTRIBUTION WIDTH 17.6 % (11.6-14.8); WHITE BLOOD COUNT 7.5 K/UL (4.8-10.8)
[2018-05-13 06:14] LABS: ALANINE AMINOTRANSFERASE < 6 U/L (12-78); ALBUMIN 1.6 G/DL (3.4-5.0); ALBUMIN/GLOBULIN RATIO 0.4 (1.0-2.7); ALKALINE PHOSPHATASE 66 U/L (46-116); ANION GAP 9 mmol/L (5-15); ASPARTATE AMINO TRANSFERASE 18 U/L (15-37); BILIRUBIN,TOTAL 0.8 MG/DL (0.2-1.0); BLOOD UREA NITROGEN 14 mg/dL (7-18); CALCIUM 6.9 MG/DL (8.5-10.1); CARBON DIOXIDE 27 MMOL/L (21-32); CHLORIDE 99 MMOL/L (98-107); CREATININE 1.3 MG/DL (0.55-1.30); PHOSPHORUS 2.6 MG/DL (2.5-4.9); POTASSIUM 3.4 MMOL/L (3.5-5.1); SODIUM 135 MMOL/L (136-145)
--- NOTE | 2018-05-13 06:58 | NUR ---
NURSE NOTES: Paged Dr underwood for Mg 1.0, Currently awaiting for call back.
--- NOTE | 2018-05-13 07:14 | NUR ---
HAND-OFF: Report given to Daniel Benitez RN.
--- NOTE | 2018-05-13 07:25 | NUR ---
NURSE NOTES: RECEIVED BED SIDE REPORT FROM KATTY VALANCE CUTTER OF NOC SHIFT.RECEIVED PT WITH HOB ELEVATED 35DEGREE AWAKE AND DENIES CP OR SOB AT THIS TIME.PT ST 120,S NOTED ON CONTINUOUS DRIER HELPER.FULL BODY ASSESSMENT DONE.PT WITH LOW B/P 81/47 ON RA AND 86/53 ON LT ARM.TEMP 101.8,HR 125,MAGNESIUM LEVEL 1.5 FROM PREVIOUS LAB REPORT IN ED DPT.PLACE A TELEPHONE CALL TO DR CACERES OFFICES AND LEFT MESSAGE ON HIS EMERGENCY VOICE MAIL REGARDING PT WITH LOW B/P ,LOW MAGNESIUM LEVEL ,TEMP 101.8,K+ 3.4. A WAITING FOR M.D TO CALL ME BACK .WILL CONT TO MONITOR.
--- NOTE | 2018-05-13 08:15 | NUR ---
NURSE NOTES:PLACED A 2ND TELEPHONE CALL TO DR CACERES AND LEFT MESSAGE AGAIN AT HIS OFICES ON VOICE MAIL ALSO PLACE A TELEPHONE CALL TO DR OSBORN. A WAITING FOR M.D,S TO CALL ME BACK. WILL CONT TO MONITOR.
--- NOTE | 2018-05-13 09:01 | NUR ---
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 HYPOTENSION VS: BP 96/59, P 135, T 99.7, RR 24, SpO2 100 RBC 4.19, Hgb 10.3, Hct 32.2, Na 135, K 3.4, Ca 6.9 IS:NS IV x1L ZOFRAN 4mG IVP VANCOMYCIN 275ml IVPB MORPHINE 4mg IVP ADMITTED TO SDU DC PLAN: RETURN HOME
[2018-05-13] MEDS ORDERED: HYDROcodone/Acetamin 10/325 tab ORAL PRN (09:45)
--- NOTE | 2018-05-13 09:45 | NUR ---
NURSE NOTES:Loreto CACERES CALL ME BACK ,MADE AWARE AND NOTIFIED REGARDING PT HAS FEVER 101.8,MAGNESIUM LEVEL 1.0,K+ 3.4, LOW B/P RA 81/47 ,LTA 86/53.RECEIVED A T.O FROM DR CACERES TO GIVE MAGNESIUM SULFATE 4GRAMS IVPB,BL CULTURS X2,IVF,S D51/2 NS WITH 20MEQ OF KCL @ 75CC/HRS ,HEPARIN 5000UNITS SUBQ Q 8HRS,NORCO 5/325 1 TAB P.O Q 6HRS.ALL NEW ORDERS NOTED AND CARRIED OUT.WILL CONT TO MONITOR.
[2018-05-13] MEDS: Vitamin D 1000 IU Tab ORAL SCH (10:24)
--- NOTE | 2018-05-13 11:22 | Diagnostic Imaging Report ---
Indication: Chest pain Comparison: 10/25/2017 A single view chest radiograph was obtained. Findings: Cardiomediastinal appearance is within normal limits for age. The lungs are clear. Pulmonary vascularity is appropriate. The diaphragmatic contour is smooth and costophrenic angles are sharp. No pleural effusions are identified. The bones are unremarkable. Impression: No acute findings
[2018-05-13] MEDS: D5 1/2NS w/KCl 40meq 1000ml 1,000 ML IV SCH ×2 (11:26→22:49)
--- NOTE | 2018-05-13 11:42 | Consultation ---
History of Present Illness General Date patient seen: May 13, 2018 Chief Complaint: Generalized Weakness Present Illness HPI 37 years old male with past medical history of HIV, diagnosed in 1999, Kaposi' s sarcoma, status post chemotherapy, Castleman's disease ,presented to emergency department complaining of nausea ,vomiting, poor appetite for one week with fevers up to 102. Pt was hypotensive n ER and received IV hydration and transferred to [facility] for further management. Allergies: Coded Allergies: No Known Allergies (Unverified , 10/21/17) Medication History Scheduled Azithromycin* (Zithromax*), 250 MG ORAL Q24H Cholecalciferol (Vitamin D3)* (Vitamin D*), 1,000 UNIT ORAL DAILY, (Reported) Dolutegravir Sodium (Tivicay), 50 MG ORAL DAILY, (Reported) Emtricitabine/Tenofovir 200-300MG* (Truvada 200-300MG*), 1 TAB ORAL DAILY, ( Reported) Mirtazapine* (Mirtazapine*), 15 MG ORAL BEDTIME No Known Medications* (NKM - No Known Medications*), 0 ., (Reported) Trimethoprim/Sulfamethoxazole (Bactrim Ds Tablet), 1 TAB ORAL DAILY Patient History Healthcare decision maker Resuscitation status Full Code Advanced Directive on File No Past Medical/Surgical History Past Medical/Surgical History: (1) HIV disease (2) Kaposi disease (3) Castleman disease Review of Systems All Other Systems: negative except mentioned in HPI Physical Exam General Appearance: cachetic Lines, tubes and drains: peripheral HEENT: normocephalic, atraumatic Neck: non-tender, normal alignment Respiratory/Chest: chest wall non-tender, lungs clear Breasts: no masses Cardiovascular/Chest: normal peripheral pulses Abdomen: normal bowel sounds Genitourinary/Rectal: normal rectal exam Skin Exam: normal pigmentation Neurologic: guest experience representative II-XII grossly normal Last 24 Hour Vital Signs Date Time Temp Pulse Resp B/P (MAP) Pulse Ox O2 Delivery O2 Flow Rate FiO2 05/13/18 09:00 122 81/47 05/13/18 08:01 81/47 (58) 05/13/18 08:00 128 05/13/18 08:00 101.8 125 22 86/53 (64) 97 05/13/18 05:16 146 144/80 05/13/18 04:04 152 05/13/18 04:00 98.6 148 16 140/80 (100) 99 05/13/18 04:00 Room Air 05/13/18 00:43 Room Air 05/13/18 00:30 117 05/13/18 00:30 98.8 114 16 148/82 (104) 99 05/13/18 00:22 98.6 102 20 110/65 100 Room Air 05/13/18 00:22 98.0 102 20 110/65 100 Room Air 05/13/18 00:03 98.8 05/12/18 22:57 98.9 112 22 115/65 100 Room Air 05/12/18 20:25 132 24 Room Air 05/12/18 20:25 99.7 135 24 96/59 100 Room Air 05/12/18 20:00 99.7 128 24 96/59 100 Room Air Intake and Output 05/12/18 05/13/18 19:00 07:00 Intake Total 2555 ml Output Total 750 ml Balance 1805 ml Intake Oral 500 ml IV Total 2055 ml Output Urine Total 750 ml # Voids 4 # Bowel Movements 4 Laboratory Tests Test 05/12/18 20:50 05/12/18 23:30 05/13/18 05:30 White Blood Count 6.1 K/UL (4.8-10.8) 7.5 K/UL (4.8-10.8) Red Blood Count 4.19 M/UL (4.70-6.10) L 4.19 M/UL (4.70-6.10) L Hemoglobin 10.3 G/DL (14.2-18.0) L 10.2 G/DL (14.2-18.0) L Hematocrit 32.2 % (42.0-52.0) L 32.2 % (42.0-52.0) L Mean Corpuscular Volume 77 FL (80-99) L 77 FL (80-99) L Mean Corpuscular Hemoglobin 24.7 PG (27.0-31.0) L 24.5 PG (27.0-31.0) L Mean Corpuscular Hemoglobin Concent 32.1 G/DL (32.0-36.0) 31.8 G/DL (32.0-36.0) L Red Cell Distribution Width 17.8 % (11.6-14.8) H 17.6 % (11.6-14.8) H Platelet Count 193 K/UL (150-450) 197 K/UL (150-450) Mean Platelet Volume 5.0 FL (6.5-10.1) L 5.2 FL (6.5-10.1) L Neutrophils (%) (Auto) 72.9 % (45.0-75.0) % (45.0-75.0) Lymphocytes (%) (Auto) 17.9 % (20.0-45.0) L % (20.0-45.0) Monocytes (%) (Auto) 7.3 % (1.0-10.0) % (1.0-10.0) Eosinophils (%) (Auto) 0.9 % (0.0-3.0) % (0.0-3.0) Basophils (%) (Auto) 1.0 % (0.0-2.0) % (0.0-2.0) Urine Color Mayda Urine Appearance Slightly cloudy Urine pH 6 (4.5-8.0) Urine Specific [place] 1.010 (1.005-1.035) Urine Protein 2+ (NEGATIVE) H Urine Glucose (UA) Negative (NEGATIVE) Urine Ketones Negative (NEGATIVE) Urine Blood Negative (NEGATIVE) Urine Nitrite Negative (NEGATIVE) Urine Bilirubin 1+ (NEGATIVE) H Urine Ictotest Negative (NEGATIVE) Urine Urobilinogen 4 MG/DL (0.0-1.0) H Urine Leukocyte Esterase 1+ (NEGATIVE) H Urine RBC 0 /HPF (0 - 0) Urine WBC 10-15 /HPF (0 - 0) H Urine Squamous Epithelial Cells Occasional /LPF Urine Bacteria Few /HPF (NONE) Sodium Level 134 MMOL/L (136-145) L 135 MMOL/L (136-145) L Potassium Level 3.9 MMOL/L (3.5-5.1) 3.4 MMOL/L (3.5-5.1) L Chloride Level 96 MMOL/L (98-107) L 99 MMOL/L (98-107) Carbon Dioxide Level 29 MMOL/L (21-32) 27 MMOL/L (21-32) Anion Gap 9 mmol/L (5-15) 9 mmol/L (5-15) Blood Urea Nitrogen 13 mg/dL (7-18) 14 mg/dL (7-18) Creatinine 1.2 MG/DL (0.55-1.30) 1.3 MG/DL (0.55-1.30) Estimat Glomerular Filtration Rate > 60 mL/min (>60) > 60 mL/min (>60) Glucose Level 89 MG/DL (74-106) 100 MG/DL (74-106) Lactic Acid Level 3.50 mmol/L (0.4-2.0) H 0.90 mmol/L (0.66-2.22) Calcium Level 7.6 MG/DL (8.5-10.1) L 6.9 MG/DL (8.5-10.1) L Total Bilirubin 0.8 MG/DL (0.2-1.0) 0.8 MG/DL (0.2-1.0) Aspartate Amino Transf (AST/SGOT) 14 U/L (15-37) L 18 U/L (15-37) Alanine Aminotransferase (ALT/SGPT) 7 U/L (12-78) L < 6 U/L (12-78) L Alkaline Phosphatase 68 U/L (46-116) 66 U/L (46-116) Troponin I 0.000 ng/mL (0.000-0.056) 0.000 ng/mL (0.000-0.056) Total Protein 7.1 G/DL (6.4-8.2) 6.1 G/DL (6.4-8.2) L Albumin 1.8 G/DL (3.4-5.0) L 1.6 G/DL (3.4-5.0) L Globulin 5.3 g/dL 4.5 g/dL Albumin/Globulin Ratio 0.3 (1.0-2.7) L 0.4 (1.0-2.7) L Phosphorus Level 2.6 MG/DL (2.5-4.9) Magnesium Level 1.0 MG/DL (1.8-2.4) L Thyroid Stimulating Hormone (TSH) 2.747 uiU/mL (0.358-3.740) Microbiology Date/Time Source Procedure Growth Status 05/13/18 04:00 Stool Stool Culture Pending Resulted 05/13/18 04:00 Stool Clostridium difficile Toxin Assay - Final Resulted Height (Feet): 5 Height (Inches): 11.00 Weight (Pounds): 132 Medications Current Medications Medications (Trade) Dose Ordered Sig/Yessica Route PRN Reason Start Time Stop Time Status Last Admin Dose Admin Acetaminophen/ Hydrocodone Bitart ([place] 10/325) 1 tab Q6H PRN ORAL For Pain 05/13/18 09:45 05/20/18 09:44 05/13/18 10:25 Dextrose/ Electrolytes 1,000 ml @ 75 mls/hr [id number] IV 05/13/18 09:45 06/12/18 09:44 05/13/18 11:26 Dolutegravir Sodium (Tivicay) 50 mg DAILY ORAL 05/13/18 09:00 06/12/18 08:59 UNV Emtricitabine/ Tenofovir (Truvada 200/ 300mg) 1 tab DAILY ORAL 05/13/18 09:00 06/12/18 08:59 UNV Heparin Sodium (Porcine) (Heparin 5000 units/ml) 5,000 units EVERY 8 HOURS SUBQ 05/13/18 14:00 06/12/18 13:59 Magnesium Sulfate 100 ml @ 100 mls/hr Q1H IVPB 05/13/18 09:45 05/13/18 13:44 05/13/18 11:26 Metoprolol Tartrate (Lopressor) 50 mg Q12HR ORAL 05/13/18 06:00 06/12/18 05:59 05/13/18 05:16 Mirtazapine (Remeron) 15 mg BEDTIME ORAL 05/13/18 21:00 06/12/18 20:59 Piperacillin Sod/ Tazobactam Sod 3.375 gm/Sodium Chloride 110 ml @ 27.5 mls/hr EVERY 8 HOURS IVPB 05/13/18 14:00 05/18/18 13:59 Vancomycin HCl (Vanco rx to dose) 1 ea DAILY PRN MISC Per rx protocol 05/13/18 09:45 06/12/18 09:44 Vitamin D (Vitamin D) 1,000 intlu DAILY ORAL 05/13/18 09:00 06/12/18 08:59 05/13/18 10:24 Assessment/Plan Problem List: (1) Septic shock ICD Codes: A41.9 - Sepsis, unspecified organism; R65.21 - Severe sepsis with septic shock SNOMED: 25283020 (2) Kaposi disease ICD Codes: Q82.1 - Xeroderma pigmentosum SNOMED: 11266731 (3) Castleman disease ICD Codes: D47.Z2 - Castleman disease SNOMED: 470615406, 297563885 (4) HIV disease ICD Codes: B20 - Human immunodeficiency virus [HIV] disease SNOMED: 01803461 Assessment/Plan escobedo cultures no obvious source of fever continue IV fluids ID evaluation check viral load symptomatic treatment. Ya Hester MD May 13, 2018 11:42
--- NOTE | 2018-05-13 12:11 | NUR ---
RD ASSESSMENT & RECOMMENDATIONS SEE CARE ACTIVITY FOR COMPLETE ASSESSMENT DAILY ESTIMATED NEEDS: Needs based on CA, sepsis, HIV/ 61kg 30-35 kcals/kg 7108-0204 total kcals 1-2 g protein/kg 61-122 g total protein 25-30 mL/kg 5513-6261 total fluid mLs NUTRITION DIAGNOSIS: * Increased kcal/prot intake needs R/T catabolic dx and underweight status as evidenced by dx of Kaposi's sarcoma, h/o HIV, low BMI per guidelines. CURRENT DIET:CARDIAC PO DIET RECOMMENDATIONS: Liberalized REGULAR diet + Ensure Enlive TID @ all meals ADDITIONAL RECOMMENDATIONS: * Calibrated bedscale wt or standing wt for accurate CBW * Replete lytes, monitor closely (low mag, K) * Monitor PO tolerance- c/o N/V/D upon adm * MVI x 1 as supplement .
--- NOTE | 2018-05-13 12:44 | GI Initial Consult Note ---
History of Present Illness General Date patient seen: May 13, 2018 Time patient seen: 12:43 Reason for Hospitalization: Generalized Weakness Referring physician: GOPI CACERES Reason for Consultation: N/V Present Illness HPI 37-year-old male who has a past medical history is of HIV currently on treatment , also history of Kaposi sarcoma status post chemotherapy, presenting with nausea vomiting diarrhea, generalized weakness for the last 4 days, feeling very dizzy when he gets up. No blood in vomit or diarrhea. Not currently on any chemotherapy. Denies any fever any chills. GI consulted for reported nausea vomiting and diarrhea. Patient seen, awake alert and oriented x4 reported previous episodes of nausea and vomiting and diarrhea for approximately 1 day. Patient denied any hematemesis or coffee- ground, denied any hematochezia or melena. The patient states that above symptoms have improved, denies any abdominal pain. Patient denies any changes in dietary habits or recent travels. Patient stated he had a endoscopy and colonoscopy within the last year. He states the findings were unremarkable. Home Meds Active Scripts Trimethoprim/Sulfamethoxazole (Bactrim Ds Tablet) 1 Each Tablet, 1 TAB ORAL DAILY for 30 Days, TAB Prov:Ya Hester MD 10/28/17 Mirtazapine* (MIRTAZAPINE*) 15 Mg Tablet, 15 MG ORAL BEDTIME for 30 Days, TAB Prov:Ya Hester MD 10/28/17 Azithromycin* (ZITHROMAX*) 250 Mg Tablet, 250 MG ORAL Q24H for 30 Days, TAB Prov:Ya Hester MD 10/28/17 Reported Medications Dolutegravir Sodium (Tivicay) 50 Mg Tablet, 50 MG ORAL DAILY, TAB 05/12/18 Cholecalciferol (Vitamin D3)* (VITAMIN D*) 1,000 Unit Tablet, 1000 UNIT ORAL DAILY, #30 TAB 05/12/18 Emtricitabine/Tenofovir 200-300MG* (TRUVADA 200-300MG*) 1 Each Tablet, 1 TAB ORAL DAILY, TAB 05/12/18 No Known Medications* (NKM - No Known Medications*) ., 0 ., 0 Refills 05/12/18 Med list reviewed/reconciled: Yes Allergies: Coded Allergies: No Known Allergies (Unverified , 10/21/17) Patient History History Provided By: Patient, Medical Record PMH Narrative Past Medical History: see triage record Past Surgical History: none Pertinent Family History: none Reviewed Nursing Documentation: PMH: Agreed; PSxH: Agreed Nursing Documentation-PMH Past Medical History: No History, Except For Hx Cardiac Problems: Yes Hx Cancer: Yes - Kaposi Sarcoma, Castleman's Disease Hx Gastrointestinal Problems: No Hx Neurological Problems: No Social History: Reports: smoking, drug use - Marijuana use Review of Systems All Other Systems: negative except mentioned in HPI Physical Exam Vital Signs Date Time Temp Pulse Resp B/P (MAP) Pulse Ox O2 Delivery O2 Flow Rate FiO2 05/12/18 20:00 99.7 128 24 96/59 100 Room Air Sp02 EP Interpretation: reviewed, normal Labs Laboratory Tests Test 05/12/18 20:50 05/12/18 23:30 05/13/18 05:30 White Blood Count 6.1 K/UL (4.8-10.8) 7.5 K/UL (4.8-10.8) Red Blood Count 4.19 M/UL (4.70-6.10) L 4.19 M/UL (4.70-6.10) L Hemoglobin 10.3 G/DL (14.2-18.0) L 10.2 G/DL (14.2-18.0) L Hematocrit 32.2 % (42.0-52.0) L 32.2 % (42.0-52.0) L Mean Corpuscular Volume 77 FL (80-99) L 77 FL (80-99) L Mean Corpuscular Hemoglobin 24.7 PG (27.0-31.0) L 24.5 PG (27.0-31.0) L Mean Corpuscular Hemoglobin Concent 32.1 G/DL (32.0-36.0) 31.8 G/DL (32.0-36.0) L Red Cell Distribution Width 17.8 % (11.6-14.8) H 17.6 % (11.6-14.8) H Platelet Count 193 K/UL (150-450) 197 K/UL (150-450) Mean Platelet Volume 5.0 FL (6.5-10.1) L 5.2 FL (6.5-10.1) L Neutrophils (%) (Auto) 72.9 % (45.0-75.0) % (45.0-75.0) Lymphocytes (%) (Auto) 17.9 % (20.0-45.0) L % (20.0-45.0) Monocytes (%) (Auto) 7.3 % (1.0-10.0) % (1.0-10.0) Eosinophils (%) (Auto) 0.9 % (0.0-3.0) % (0.0-3.0) Basophils (%) (Auto) 1.0 % (0.0-2.0) % (0.0-2.0) Urine Color Mayda Urine Appearance Slightly cloudy Urine pH 6 (4.5-8.0) Urine Specific [place] 1.010 (1.005-1.035) Urine Protein 2+ (NEGATIVE) H Urine Glucose (UA) Negative (NEGATIVE) Urine Ketones Negative (NEGATIVE) Urine Blood Negative (NEGATIVE) Urine Nitrite Negative (NEGATIVE) Urine Bilirubin 1+ (NEGATIVE) H Urine Ictotest Negative (NEGATIVE) Urine Urobilinogen 4 MG/DL (0.0-1.0) H Urine Leukocyte Esterase 1+ (NEGATIVE) H Urine RBC 0 /HPF (0 - 0) Urine WBC 10-15 /HPF (0 - 0) H Urine Squamous Epithelial Cells Occasional /LPF Urine Bacteria Few /HPF (NONE) Sodium Level 134 MMOL/L (136-145) L 135 MMOL/L (136-145) L Potassium Level 3.9 MMOL/L (3.5-5.1) 3.4 MMOL/L (3.5-5.1) L Chloride Level 96 MMOL/L (98-107) L 99 MMOL/L (98-107) Carbon Dioxide Level 29 MMOL/L (21-32) 27 MMOL/L (21-32) Anion Gap 9 mmol/L (5-15) 9 mmol/L (5-15) Blood Urea Nitrogen 13 mg/dL (7-18) 14 mg/dL (7-18) Creatinine 1.2 MG/DL (0.55-1.30) 1.3 MG/DL (0.55-1.30) Estimat Glomerular Filtration Rate > 60 mL/min (>60) > 60 mL/min (>60) Glucose Level 89 MG/DL (74-106) 100 MG/DL (74-106) Lactic Acid Level 3.50 mmol/L (0.4-2.0) H 0.90 mmol/L (0.66-2.22) Calcium Level 7.6 MG/DL (8.5-10.1) L 6.9 MG/DL (8.5-10.1) L Total Bilirubin 0.8 MG/DL (0.2-1.0) 0.8 MG/DL (0.2-1.0) Aspartate Amino Transf (AST/SGOT) 14 U/L (15-37) L 18 U/L (15-37) Alanine Aminotransferase (ALT/SGPT) 7 U/L (12-78) L < 6 U/L (12-78) L Alkaline Phosphatase 68 U/L (46-116) 66 U/L (46-116) Troponin I 0.000 ng/mL (0.000-0.056) 0.000 ng/mL (0.000-0.056) Total Protein 7.1 G/DL (6.4-8.2) 6.1 G/DL (6.4-8.2) L Albumin 1.8 G/DL (3.4-5.0) L 1.6 G/DL (3.4-5.0) L Globulin 5.3 g/dL 4.5 g/dL Albumin/Globulin Ratio 0.3 (1.0-2.7) L 0.4 (1.0-2.7) L Phosphorus Level 2.6 MG/DL (2.5-4.9) Magnesium Level 1.0 MG/DL (1.8-2.4) L Thyroid Stimulating Hormone (TSH) 2.747 uiU/mL (0.358-3.740) General Appearance: well appearing, no apparent distress, alert, thin Head: normocephalic EENT: PERRL/EOMI, normal ENT inspection Neck: supple Respiratory: normal breath sounds, no respiratory distress Cardiovascular: normal rate Gastrointestinal: normal inspection, non tender, soft, normal bowel sounds, non -distended Rectal: deferred Genitourinary: deferred Musculoskeletal: normal inspection, back normal Neurologic: normal inspection, alert, oriented x3, responsive Psychiatric: normal inspection, judgement/insight normal, memory normal Skin: normal inspection, normal color, no rash, warm/dry, palpation normal, well hydrated Lymphatic: normal inspection, no adenopathy Current Medications Current Medications Medications (Trade) Dose Ordered Sig/Yessica Route PRN Reason Start Time Stop Time Status Last Admin Dose Admin Acetaminophen (Tylenol) 650 mg Q4H PRN ORAL Mild Pain/Temp > 100.5 05/13/18 12:00 06/12/18 11:59 Dextrose/ Electrolytes 1,000 ml @ 75 mls/hr [id number] IV 05/13/18 09:45 06/12/18 09:44 05/13/18 11:26 Dolutegravir Sodium (Tivicay) 50 mg DAILY ORAL 05/13/18 09:00 06/12/18 08:59 UNV Emtricitabine/ Tenofovir (Truvada 200/ 300mg) 1 tab DAILY ORAL 05/13/18 09:00 06/12/18 08:59 UNV Heparin Sodium (Porcine) (Heparin 5000 units/ml) 5,000 units EVERY 8 HOURS SUBQ 05/13/18 14:00 06/12/18 13:59 Magnesium Sulfate 100 ml @ 100 mls/hr Q1H IVPB 05/13/18 09:45 05/13/18 13:44 05/13/18 11:26 Metoprolol Tartrate (Lopressor) 50 mg Q12HR ORAL 05/13/18 06:00 06/12/18 05:59 05/13/18 05:16 Mirtazapine (Remeron) 15 mg BEDTIME ORAL 05/13/18 21:00 06/12/18 20:59 Morphine Sulfate (Morphine Sulfate) 2 mg Q4H PRN IVP Moderate Pain (Pain Scale 4-6) 05/13/18 12:15 05/20/18 12:14 Morphine Sulfate (Morphine Sulfate) 4 mg Q4H PRN IVP Severe Pain (Pain Scale 7-10) 05/13/18 12:15 05/20/18 12:14 Ondansetron HCl (Zofran) 4 mg Q4H PRN IVP Nausea & Vomiting 05/13/18 12:15 06/12/18 12:14 Piperacillin Sod/ Tazobactam Sod 3.375 gm/Sodium Chloride 110 ml @ 27.5 mls/hr EVERY 8 HOURS IVPB 05/13/18 14:00 05/18/18 13:59 Vancomycin HCl (Vanco rx to dose) 1 ea DAILY PRN MISC Per rx protocol 05/13/18 09:45 06/12/18 09:44 Vitamin D (Vitamin D) 1,000 intlu DAILY ORAL 05/13/18 09:00 06/12/18 08:59 05/13/18 10:24 GI: Plan Problems: (1) Gastroenteritis (2) Cyclic vomiting syndrome (3) Electrolyte imbalance (4) Dehydration (5) Nausea & vomiting (6) Diarrhea (7) Kaposi disease Plan Recent history of unremarkable endoscopy and colonoscopy Marijuana use Kaposi Disease s/p chemotherapy Microcytic anemia Advance diet as tolerated low dose Reglan [id number] Zofran as needed anemia work up OB stool r/o GI bleed monitor H&H, prn transfusions Collect for C. difficile, Imodium as needed after ppi IV and p.o. hydration plus electrolyte correction fu labs Discussed with Dr. Grande. Thank you for this patient referral, we will follow. The patient was seen and examined at bedside and all new and available data was reviewed in the patients chart. I agree with the above findings, impression and plan. (Patient seen earlier today. Signature stamp does not reflect patient encounter time.). - MD Eufemia Avalos,Cheyanne-Mian DE LEÓN May 13, 2018 12:44
[2018-05-13] MEDS: Heparin 5000 units/ml inj SUBQ SCH ×2 (14:15→22:25)
[2018-05-13] MEDS: Morphine Sulfate 2mg/ml Inj(IV/IM USE ONLY) IVP PRN (14:26)
--- NOTE | 2018-05-13 14:55 | Cardiology Report ---
APPROVED REPORT EKG Measurement Heart [id number] HI [id number] Sinus tachycardia Abnormal ECG
--- NOTE | 2018-05-13 15:00 | Consultation ---
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 In the ED was found to be hypotensive and received IV hydration. Denied hematemesis, diarrhea, hematochezia, melena, abd pain, recent travel. + recent contact with a frined that had cold symptoms 3 days before the onset of his symptoms. Of note, patient was admitted here on Oct 2017 with N/V, poor appetite and fever and was found to have pancreatitis 36 year old HIV/AIDS positive male who presented to the [place] ED with poor appetite, nausea and vomiting and fever to 102. Sepsis - Pancreatitis, Castleman's, PNA, KS, other infection (TB?) 10/22/17- CT show reticular opacity and significant lymphadenopathy 10/23/17 - CT abd/pel Lymphadenopathy, Enlarged Pancrease mild B/L hydronephrosis 11/21/16 - Quantiferon negative (Out Side lab) Fever up to 102 - Resolved B/U/S Cx - Negative Fungal serologies pending KS/ Castlemans's disease S/P Chemo ending 07/17/17 Last PET 08/12/17 - show stable/not worsening lymphadenopathy Seen by Oncology HIV - On Tivicay and Descovy and Bactrim HIV MD Dr. Carr No Hx of resistance. Was on Truvada Reyetaz and Norvir before 09/01/17 - CD4 192 and VL - ND (Out Side labs) 10/24/17 CD4 87 and VL - Pend Has been above 200 in the past. Came down with Chemo Chronic Hep B, VL <15 09/01/17 DVT - On Enoxaparin 10/23/17 - Dopler Negative for DVT Anemia REENA P: Continue Ceftriaxone #5/6, Azithromycin #6/7 - Stop abx tomorrow of afebrile as no clear infection found will treat for probable CAP Change Bactrim to PPX dosing 1 DS Qday Continue Home HIV meds Tivicay and Descovy - 10/28 SP Bactrim Tx dose - 10/24 SP Cefepime # 2 - f/u B/U/S Cx - Monitor CBC and Temps - f/u serologies We will continue to follow the patient with you. P: Continue Cefepime and Bactrim for now Start Azithromycin for possible pna. QTC 378 - f/u CT chest - f/u B/U/S Cx and AFB - Monitor CBC and Temps - Hold HIV meds for now - Called his HIV MD Dr. Carr Waiting for a call back. Thank you for this consult we will continue to follow the patient with you. Sterling Ortiz MD Oct 22, 2017 14:19 <Electronically signed by Sterling Ortiz MD> 10/22/17 1601 : ADDENDUM Addendum: Sterling Ortiz MD on 10/22/17 @ 16:51 I Spoke with patients HIV MD He has been on tivicay and descovy - No Hx of resistance Was on Truvada Reyetaz and Norvir before CD4 192 and VL 09/01/17. Has been above 200 in the past. Came down with Chemo Also has chronic Hep B, VL <15 09/01/17 Last PET 08/12/17 - show stable/not worsening lymphadenopathy Last chemo was 07/17/17 Quantiferon negative 11/21/16 The patient presented with fever with his intial Dx of Castlemans's Allergies: Coded Allergies: No Known Allergies (Unverified , 10/21/17) Medication History Scheduled Azithromycin* (Zithromax*), 250 MG ORAL Q24H Cholecalciferol (Vitamin D3)* (Vitamin D*), 1,000 UNIT ORAL DAILY, (Reported) Dolutegravir Sodium (Tivicay), 50 MG ORAL DAILY, (Reported) Emtricitabine/Tenofovir 200-300MG* (Truvada 200-300MG*), 1 TAB ORAL DAILY, ( Reported) Mirtazapine* (Mirtazapine*), 15 MG ORAL BEDTIME No Known Medications* (NKM - No Known Medications*), 0 ., (Reported) Trimethoprim/Sulfamethoxazole (Bactrim Ds Tablet), 1 TAB ORAL DAILY Patient History Healthcare decision maker Resuscitation status Full Code Advanced Directive on File No Patient History Narrative Pmhx: as above Shx: reviewed Fhx: non contributory Review of Systems All Other Systems: negative except mentioned in HPI Physical Exam Physical Exam Narrative General Appearance: well appearing, no apparent distress, alert, thin Head: normocephalic PERRL/EOMI, normal ENT inspection Neck: supple Respiratory: normal breath sounds, no respiratory distress Cardiovascular: normal rate Gastrointestinal: normal inspection, non tender, soft, normal bowel sounds, non -distended Musculoskeletal: normal inspection, back normal Neurologic: normal inspection, alert, oriented x3, responsive Skin: normal inspection, normal color, no rash, warm/dry, palpation normal, well hydrated Last 24 Hour Vital Signs Date Time Temp Pulse Resp B/P (MAP) Pulse Ox O2 Delivery O2 Flow Rate FiO2 05/13/18 12:00 123 05/13/18 12:00 100.8 131 22 91/51 (64) 95 05/13/18 09:00 122 81/47 05/13/18 08:01 81/47 (58) 05/13/18 08:00 128 05/13/18 08:00 101.8 125 22 86/53 (64) 97 05/13/18 05:16 146 144/80 05/13/18 04:04 152 05/13/18 04:00 98.6 148 16 140/80 (100) 99 05/13/18 04:00 Room Air 05/13/18 00:43 Room Air 05/13/18 00:30 117 05/13/18 00:30 98.8 114 16 148/82 (104) 99 05/13/18 00:22 98.6 102 20 110/65 100 Room Air 05/13/18 00:22 98.0 102 20 110/65 100 Room Air 05/13/18 00:03 98.8 05/12/18 22:57 98.9 112 22 115/65 100 Room Air 05/12/18 20:25 132 24 Room Air 05/12/18 20:25 99.7 135 24 96/59 100 Room Air 05/12/18 20:00 99.7 128 24 96/59 100 Room Air Intake and Output 05/12/18 05/13/18 19:00 07:00 Intake Total 2555 ml Output Total 750 ml Balance 1805 ml Intake Oral 500 ml IV Total 2055 ml Output Urine Total 750 ml # Voids 4 # Bowel Movements 4 Laboratory Tests Test 05/12/18 20:50 05/12/18 23:30 05/13/18 05:30 White Blood Count 6.1 K/UL (4.8-10.8) 7.5 K/UL (4.8-10.8) Red Blood Count 4.19 M/UL (4.70-6.10) L 4.19 M/UL (4.70-6.10) L Hemoglobin 10.3 G/DL (14.2-18.0) L 10.2 G/DL (14.2-18.0) L Hematocrit 32.2 % (42.0-52.0) L 32.2 % (42.0-52.0) L Mean Corpuscular Volume 77 FL (80-99) L 77 FL (80-99) L Mean Corpuscular Hemoglobin 24.7 PG (27.0-31.0) L 24.5 PG (27.0-31.0) L Mean Corpuscular Hemoglobin Concent 32.1 G/DL (32.0-36.0) 31.8 G/DL (32.0-36.0) L Red Cell Distribution Width 17.8 % (11.6-14.8) H 17.6 % (11.6-14.8) H Platelet Count 193 K/UL (150-450) 197 K/UL (150-450) Mean Platelet Volume 5.0 FL (6.5-10.1) L 5.2 FL (6.5-10.1) L Neutrophils (%) (Auto) 72.9 % (45.0-75.0) % (45.0-75.0) Lymphocytes (%) (Auto) 17.9 % (20.0-45.0) L % (20.0-45.0) Monocytes (%) (Auto) 7.3 % (1.0-10.0) % (1.0-10.0) Eosinophils (%) (Auto) 0.9 % (0.0-3.0) % (0.0-3.0) Basophils (%) (Auto) 1.0 % (0.0-2.0) % (0.0-2.0) Urine Color Mayda Urine Appearance Slightly cloudy Urine pH 6 (4.5-8.0) Urine Specific [place] 1.010 (1.005-1.035) Urine Protein 2+ (NEGATIVE) H Urine Glucose (UA) Negative (NEGATIVE) Urine Ketones Negative (NEGATIVE) Urine Blood Negative (NEGATIVE) Urine Nitrite Negative (NEGATIVE) Urine Bilirubin 1+ (NEGATIVE) H Urine Ictotest Negative (NEGATIVE) Urine Urobilinogen 4 MG/DL (0.0-1.0) H Urine Leukocyte Esterase 1+ (NEGATIVE) H Urine RBC 0 /HPF (0 - 0) Urine WBC 10-15 /HPF (0 - 0) H Urine Squamous Epithelial Cells Occasional /LPF Urine Bacteria Few /HPF (NONE) Sodium Level 134 MMOL/L (136-145) L 135 MMOL/L (136-145) L Potassium Level 3.9 MMOL/L (3.5-5.1) 3.4 MMOL/L (3.5-5.1) L Chloride Level 96 MMOL/L (98-107) L 99 MMOL/L (98-107) Carbon Dioxide Level 29 MMOL/L (21-32) 27 MMOL/L (21-32) Anion Gap 9 mmol/L (5-15) 9 mmol/L (5-15) Blood Urea Nitrogen 13 mg/dL (7-18) 14 mg/dL (7-18) Creatinine 1.2 MG/DL (0.55-1.30) 1.3 MG/DL (0.55-1.30) Estimat Glomerular Filtration Rate > 60 mL/min (>60) > 60 mL/min (>60) Glucose Level 89 MG/DL (74-106) 100 MG/DL (74-106) Lactic Acid Level 3.50 mmol/L (0.4-2.0) H 0.90 mmol/L (0.66-2.22) Calcium Level 7.6 MG/DL (8.5-10.1) L 6.9 MG/DL (8.5-10.1) L Total Bilirubin 0.8 MG/DL (0.2-1.0) 0.8 MG/DL (0.2-1.0) Aspartate Amino Transf (AST/SGOT) 14 U/L (15-37) L 18 U/L (15-37) Alanine Aminotransferase (ALT/SGPT) 7 U/L (12-78) L < 6 U/L (12-78) L Alkaline Phosphatase 68 U/L (46-116) 66 U/L (46-116) Troponin I 0.000 ng/mL (0.000-0.056) 0.000 ng/mL (0.000-0.056) Total Protein 7.1 G/DL (6.4-8.2) 6.1 G/DL (6.4-8.2) L Albumin 1.8 G/DL (3.4-5.0) L 1.6 G/DL (3.4-5.0) L Globulin 5.3 g/dL 4.5 g/dL Albumin/Globulin Ratio 0.3 (1.0-2.7) L 0.4 (1.0-2.7) L Phosphorus Level 2.6 MG/DL (2.5-4.9) Magnesium Level 1.0 MG/DL (1.8-2.4) L Thyroid Stimulating Hormone (TSH) 2.747 uiU/mL (0.358-3.740) Microbiology Date/Time Source Procedure Growth Status 05/13/18 04:00 Stool Stool Culture Pending Resulted 05/13/18 04:00 Stool Clostridium difficile Toxin Assay - Final Resulted Height (Feet): 5 Height (Inches): 11.00 Weight (Pounds): 132 Medications Current Medications Medications (Trade) Dose Ordered Sig/Yessica Route PRN Reason Start Time Stop Time Status Last Admin Dose Admin Acetaminophen (Tylenol) 650 mg Q4H PRN ORAL Mild Pain/Temp > 100.5 05/13/18 12:00 06/12/18 11:59 Dextrose/ Electrolytes 1,000 ml @ 75 mls/hr [id number] IV 05/13/18 09:45 06/12/18 09:44 05/13/18 11:26 Dolutegravir Sodium (Tivicay) 50 mg DAILY ORAL 05/13/18 09:00 06/12/18 08:59 UNV Emtricitabine/ Tenofovir (Truvada 200/ 300mg) 1 tab DAILY ORAL 05/13/18 09:00 06/12/18 08:59 UNV Heparin Sodium (Porcine) (Heparin 5000 units/ml) 5,000 units EVERY 8 HOURS SUBQ 05/13/18 14:00 06/12/18 13:59 05/13/18 14:15 Metoclopramide HCl (Reglan) 5 mg EVERY 6 HOURS ORAL 05/13/18 18:00 06/12/18 17:59 Metoprolol Tartrate (Lopressor) 50 mg Q12HR ORAL 05/13/18 06:00 06/12/18 05:59 05/13/18 05:16 Mirtazapine (Remeron) 15 mg BEDTIME ORAL 05/13/18 21:00 06/12/18 20:59 Morphine Sulfate (Morphine Sulfate) 2 mg Q4H PRN IVP Moderate Pain (Pain Scale 4-6) 05/13/18 12:15 05/20/18 12:14 05/13/18 14:26 Morphine Sulfate (Morphine Sulfate) 4 mg Q4H PRN IVP Severe Pain (Pain Scale 7-10) 05/13/18 12:15 05/20/18 12:14 Ondansetron HCl (Zofran) 4 mg Q4H PRN IVP Nausea & Vomiting 05/13/18 12:15 06/12/18 12:14 Piperacillin Sod/ Tazobactam Sod 3.375 gm/Sodium Chloride 110 ml @ 27.5 mls/hr EVERY 8 HOURS IVPB 05/13/18 14:00 05/18/18 13:59 Vancomycin HCl (Vanco rx to dose) 1 ea DAILY PRN MISC Per rx protocol 05/13/18 09:45 06/12/18 09:44 Vitamin D (Vitamin D) 1,000 intlu DAILY ORAL 05/13/18 09:00 06/12/18 08:59 05/13/18 10:24 Assessment/Plan Assessment/Plan Abx: IV Vancomycin 05/12- Zosyn 05/13- Cefepime x1 05/12 Assessment: SEvere sepsis- ?source- ?gastroenteritis- r/o Flu - r/o HIV related infection- r /o bacteremia, r/o recurrence Castleman;s disease -CXR: No acute findings Fever No leukocytosis Nausea/vomiting -Cdiff neg -stool cx p HIV on ARV (dx 1999)- on Truvada and Dolutegravir -10/2017 HIV VL ND, CD4 87 (12.4%) -09/01/17 - CD4 192 and VL - ND (Out Side labs) -no hx of resistance ; previously on Truvada, Reyataz and Norvir -Has been above 200 in the past. Came down with Chemo Microcytic anemia hx pancreatitis 10/2017 - 10/22/17- CT show reticular opacity and significant lymphadenopathy 10/23/17 - CT abd/pel Lymphadenopathy, Enlarged Pancrease mild B/L hydronephrosis -Blasto, Histo, CrAg neg 11/21/16 - Quantiferon negative (Out Side lab) hx of Kaposi's sarcoma/Castleman's disease s/p chemotherapy - S/P Chemo ending 07/17/17 Last PET 08/12/17 - show stable/not worsening lymphadenopathy Hep C+ hx of Chronic Hep B, VL <15 09/01/17 hx of DVT Plan: -Continue empiric IV Vancomycin #2 and Zosyn #1 for now pending cultures -Add empiric Tamiflu pending test -05/12 SP Cefepime x1 -f/u cx -Monitor CBC/CMP, temperatures -HIV VL, Cd4, Influenza sc, CrAg -Low threshold for CT chest/ab/p -aspiration precautions -GI f/u Thank you for this consultation. Will continue to follow along with you. Discussed with Maite Avalos M.D. May 13, 2018 15:00
[2018-05-13] MEDS: Oseltamivir 75mg cap ORAL SCH (15:42)
[2018-05-13] MEDS: Zoysn 3.37gm in NS 100ML IVPB SCH ×2 (17:44→22:24)
[2018-05-13] MEDS ORDERED: NS 275ml ONE (18:00)
[2018-05-13] MEDS ORDERED: Azithromycin 600mg Tab ORAL SCH (18:00)
[2018-05-13] MEDS ORDERED: Tubing IV Secondary IV ONE (18:00)
[2018-05-13] MEDS: Metoclopramide 10mg/10ml Liq ORAL SCH (18:38)
--- NOTE | 2018-05-13 19:25 | NUR ---
NURSE NOTES: Received patient from Carlos A JOSHUA. Patient is awake, alert and oriented x4. Patient appears to be resting in room comfortably. Patient appears to be saturating well on room air. Urinal is near bedside and within easy reach. No signs or symptoms of acute cardiac or respiratory distress noted. Bed is locked, placed in lowest position, side rails up x3, call light within reach. Patient appears clean and dry. Patient has Right forearm 20 gauge receiving D5 1/2 NS plus 20 KCl at 75cc/hr. Patient remains fever free. Safety measures continued, will continue plan of care, all needs met, will continue to monitor.
--- NOTE | 2018-05-13 20:00 | History and Physical Report ---
DATE OF ADMISSION: 05/12/2018 CHIEF COMPLAINT: The patient is a 37-year-old male, presents with chief complaint of nausea, vomiting, diarrhea, and dizziness. HISTORY OF PRESENT ILLNESS: The patient has a history of HIV, Kaposi sarcoma, and Castleman disease. The patient is status post chemotherapy in 2018 for Kaposi sarcoma. The patient presented to [place] emergency room complaining of a two-day history of nausea and vomiting. The patient was unable to tolerate solids. The patient was able to keep fluids down. The patient was unable to tolerate his HIV medicines. The patient denies hematemesis. The patient also began to experience diarrhea. Diarrhea was watery. The patient was having up to four bowel movements daily. The patient presented to [place] emergency room. The patient is admitted for nausea, vomiting, diarrhea, and vertigo to rule out sepsis. REVIEW OF SYSTEMS: CONSTITUTIONAL: The patient denies weight loss or weight gain. The patient complains of subjective fevers and chills. HEENT: The patient denies ear or throat pain. The patient denies headache. CARDIOVASCULAR: The patient denies palpitations or chest pain. CHEST: The patient denies wheeze or shortness of breath. ABDOMEN: The patient complained of nausea, vomiting, and diarrhea as above. The patient denies constipation. GENITOURINARY: The patient denies dysuria or increased frequency of urination. NEUROMUSCULAR: The patient denies seizures or generalized weakness. PAST MEDICAL HISTORY: Significant for: 1. HIV, diagnosed in 1999. The patient does not know his current T-cell count or HIV viral load. 2. Kaposi sarcoma, status post chemotherapy in September of 2017. 3. Castleman disease. PAST SURGICAL HISTORY: Significant for lymph node biopsy of the right axilla. CURRENT MEDICATIONS: 1. Azithromycin 250 mg p.o. daily. 2. Tivicay 50 mg p.o. daily. 3. Truvada 200/300 mg one tablet p.o. daily. 4. Mirtazapine 15 mg p.o. nightly. 5. Bactrim double-strength one tablet p.o. daily. ALLERGIES: No known drug allergies. SOCIAL HISTORY: The patient is single and lives with his mother. The patient denies tobacco or alcohol use. PHYSICAL EXAMINATION: VITAL SIGNS: Temperature 99.7, respirations 24, pulse 128, and blood pressure 96/59. GENERAL: The patient is thin-appearing male, in no apparent distress. HEENT: Eyes, pupils equal and responsive to light and accommodation. Extraocular movements intact. NECK: Supple without lymphadenopathy. CHEST: Lungs are clear to auscultation bilaterally without wheezes or rales. CARDIOVASCULAR: Regular rhythm and rate. S1 and S2 are normal without murmurs, rubs, or gallops. ABDOMEN: Soft and nondistended with decreased bowel sounds. No evidence of hepatosplenomegaly. Currently, no rebound or guarding noted. EXTREMITIES: Negative for clubbing, cyanosis, or edema. RECTAL: Refused. GENITAL: Refused. NEUROLOGIC: Cranial nerves II through XII are grossly intact without focal deficits. Motor strength is 5/5 bilaterally intact. Deep tendon reflexes are 2+, plantar. LABORATORY STUDIES: WBC 6.1, hemoglobin 10.3, hematocrit 32.2, and platelets 119,000. Sodium 134, potassium 3.9, chloride 96, CO2 29, BUN 13, creatinine 1.2, and glucose 89. Urinalysis showed 3+ protein with 1+ bilirubin, 4+ urobilinogen, 1+ leukocyte esterase, and 10 to 15 wbcs. Chest x-ray was reported as no acute disease. ASSESSMENT: This is a 37-year-old male: 1. Nausea with vomiting. 2. Diarrhea. 3. Vertigo. 4. Hypotension. 5. HIV. 6. Kaposi sarcoma. 7. Castleman disease. TREATMENT: 1. Nausea/vomiting/diarrhea. Gastroenterology consultation with Dr. Michael Grande. Stool cultures including Clostridium difficile, stool culture, and ova and parasite are pending. The patient has been started empirically on Zosyn. We will follow recommendations of Gastroenterology and Infectious Disease. 2. Hypotension. This may be secondary to sepsis. Continue Zosyn as above. 3. Kaposi sarcoma. The patient is status post chemotherapy. 4. Castleman disease. Adam Padron M.D. DR: ABI JOB#: [id number] CC:
[2018-05-13] MEDS: Bactrim-DS 1 tab ORAL SCH (20:42)
[2018-05-13] MEDS: Patient's Own Med - Truvada 200/300mg ORAL SCH (20:42)
[2018-05-14] VITALS: BP 101/63
--- NOTE | 2018-05-14 00:06 | NUR ---
NURSE NOTES: Patients heart rate is trending from 120-130's and blood pressure 90/60, made Dr. Rachel aware. New orders given and read back per doctor to order NS Bolus 500cc. Will continue to monitor patient and carry out orders.
[2018-05-14] MEDS: Metoclopramide 10mg/10ml Liq ORAL SCH ×4 (00:16→17:27)
--- NOTE | 2018-05-14 02:25 | NUR ---
NURSE NOTES: notified DR. Gtz- of VS after bolus- b/p 99/69, pulse 115- per DR. Gtz, to bolus another 500mls- will carry out orders.
[2018-05-14] MEDS: D5 1/2NS w/KCl 40meq 1000ml 1,000 ML IV SCH (02:58)
[2018-05-14 04:00] VITALS: BP 90/55
--- NOTE | 2018-05-14 04:30 | NUR ---
NURSE NOTES: pt. appears to be stable after bolus of NS 500mls- VS signs b/p 90/55, pulse 98, temp 97.9- heart rate and trending down WNL. Will continue to monitor pt. and with plan of care.
[2018-05-14] MEDS: Zoysn 3.37gm in NS 100ML IVPB SCH ×3 (05:45→21:01)
[2018-05-14] MEDS: Heparin 5000 units/ml inj SUBQ SCH ×3 (05:46→21:02)
[2018-05-14 06:55] LABS: % IRON SATURATION 14 % (15-50); IRON 10 ug/dL (50-175); TOTAL IRON BINDING CAPACITY 70 ug/dL (250-450)
[2018-05-14 07:13] LABS: ALBUMIN 1.2 G/DL (3.4-5.0); ALBUMIN/GLOBULIN RATIO 0.3 (1.0-2.7); ALKALINE PHOSPHATASE 51 U/L (46-116); ANION GAP 10 mmol/L (5-15); ASPARTATE AMINO TRANSFERASE 13 U/L (15-37); BILIRUBIN,TOTAL 0.6 MG/DL (0.2-1.0); BLOOD UREA NITROGEN 23 mg/dL (7-18); CALCIUM 6.8 MG/DL (8.5-10.1); CARBON DIOXIDE 22 MMOL/L (21-32); CHLORIDE 99 MMOL/L (98-107); CREATININE 1.5 MG/DL (0.55-1.30); POTASSIUM 3.9 MMOL/L (3.5-5.1); SODIUM 131 MMOL/L (136-145)
--- NOTE | 2018-05-14 07:13 | NUR ---
HAND-OFF: Report given to Radha Schumacher RN. Addendum: 05/14/18 at 0716 by Manpreet Cruz RN Patient remains stable and no distress noted.
[2018-05-14 07:26] LABS: ALANINE AMINOTRANSFERASE 6 U/L (12-78)
[2018-05-14 07:40] LABS: FERRITIN 1340 NG/ML (8-388)
[2018-05-14 08:00] VITALS: BP 92/56
[2018-05-14] MEDS ORDERED: Vancomycin 1gm/D5W 275ml IVPB ONE ×2 (08:00)
--- NOTE | 2018-05-14 08:00 | NUR ---
NURSE NOTES: Patient a&o x4. Unpleasant, not cooperative, does not want to be "bothered" to take medication. Room air. No distress noted. Denies pain or discomofrt at this time -s tates that he just wants to sleep and rest without disturbance of medication administration. Education provided on importance of following medication regimen. Urinal at bedside. R forearm 20, D5 1/2 NS with 20 KCL at 75 cc/hr. Bed on lowest position, bed alarm on for safety, call light within reach. will continue to monitor patient.
[2018-05-14] MEDS: Bactrim-DS 1 tab ORAL SCH ×2 (08:58→21:01)
[2018-05-14] MEDS: Patient's Own Med - Truvada 200/300mg ORAL SCH (08:59)
[2018-05-14] MEDS: Oseltamivir 75mg cap ORAL SCH ×2 (08:59→17:27)
[2018-05-14] MEDS: Metoprolol Tartrate 50mg tab ORAL SCH ×2 (08:59→21:01)
[2018-05-14] MEDS: Vitamin D 1000 IU Tab ORAL SCH (08:59)
[2018-05-14 09:19] LABS: BASOPHILS % (AUTO) 0.2 % (0.0-2.0); EOSINOPHILS % (AUTO) 3.9 % (0.0-3.0); HEMATOCRIT 26.9 % (42.0-52.0); HEMOGLOBIN 8.7 G/DL (14.2-18.0); LYMPHOCYTES % (AUTO) 8.5 % (20.0-45.0); MEAN CORPUSCULAR VOLUME 76 FL (80-99); MONOCYTES % (AUTO) 5.3 % (1.0-10.0); NEUTROPHILS % (AUTO) 82.2 % (45.0-75.0); PLATELET COUNT 147 K/UL (150-450); RED BLOOD COUNT 3.53 M/UL (4.70-6.10); RED CELL DISTRIBUTION WIDTH 17.7 % (11.6-14.8); WHITE BLOOD COUNT 7.6 K/UL (4.8-10.8)
[2018-05-14 09:35] LABS: INR 1.2 (0.9-1.1)
--- NOTE | 2018-05-14 11:19 | GI Progress Note ---
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 SNOMED: 40982315 (2) Cyclic vomiting syndrome ICD Codes: G43.A0 - Cyclical vomiting, not intractable SNOMED: 72682188 (3) Nausea & vomiting ICD Codes: R11.2 - Nausea with vomiting, unspecified SNOMED: 28912653 (4) Electrolyte imbalance ICD Codes: E87.8 - Other disorders of electrolyte and fluid balance, not elsewhere classified SNOMED: 769532014 (5) Diarrhea ICD Codes: R19.7 - Diarrhea, unspecified SNOMED: 13715359 (6) Gastroenteritis ICD Codes: K52.9 - Noninfective gastroenteritis and colitis, unspecified SNOMED: 70628331 (7) Dehydration ICD Codes: E86.0 - Dehydration SNOMED: 70959078 Status: stable Status Narrative Discussed with Dr. Grande Assessment/Plan Recent history of unremarkable endoscopy and colonoscopy Marijuana use Kaposi Disease s/p chemotherapy Microcytic anemia C. difficile is negative hold Venofer given elevated ferritin levels Advance diet as tolerated low dose Reglan [id number] Zofran as needed anemia work up OB stool r/o GI bleed monitor H&H, prn transfusions Collect for C. difficile, Imodium as needed after ppi IV and p.o. hydration plus electrolyte correction fu labs, CD4 count The patient was seen and examined at bedside and all new and available data was reviewed in the patients chart. I agree with the above findings, impression and plan. (Patient seen earlier today. Signature stamp does not reflect patient encounter time.). - Michael Grande MD Subjective Gastrointestinal/Abdominal: Reports: no symptoms Objective Last 24 Hour Vital Signs Date Time Temp Pulse Resp B/P (MAP) Pulse Ox O2 Delivery O2 Flow Rate FiO2 05/14/18 08:00 Room Air 05/14/18 08:00 98.2 113 28 92/56 (68) 100 05/14/18 08:00 110 05/14/18 04:00 97.9 98 16 90/55 (67) 98 05/14/18 04:00 Room Air 05/14/18 03:25 99 05/14/18 00:55 100.3 05/14/18 00:00 Room Air 05/14/18 00:00 103.5 134 18 101/63 (76) 98 05/13/18 23:25 147 05/13/18 23:25 147 05/13/18 20:44 128 98/63 05/13/18 20:00 98.1 116 20 98/63 (75) 98 05/13/18 20:00 Room Air 05/13/18 19:28 144 05/13/18 16:00 98.8 112 16 93/61 (72) 100 05/13/18 16:00 108 05/13/18 16:00 Room Air 05/13/18 14:56 100.8 05/13/18 12:00 123 05/13/18 12:00 Room Air 05/13/18 12:00 100.8 131 22 91/51 (64) 95 Intake and Output 05/13/18 05/14/18 18:59 06:59 Intake Total 1102.5 ml 964.5 ml Output Total 800 ml Balance 302.5 ml 964.5 ml Intake Oral 450 ml IV Total 652.5 ml 964.5 ml Output Urine Total 800 ml # Voids 4 # Bowel Movements 6 7 Laboratory Tests Test 05/14/18 03:30 05/14/18 04:00 05/14/18 08:50 Stool Occult Blood Negative (NEGATIVE) Sodium Level 131 MMOL/L (136-145) L Potassium Level 3.9 MMOL/L (3.5-5.1) Chloride Level 99 MMOL/L (98-107) Carbon Dioxide Level 22 MMOL/L (21-32) Anion Gap 10 mmol/L (5-15) Blood Urea Nitrogen 23 mg/dL (7-18) H Creatinine 1.5 MG/DL (0.55-1.30) H Estimat Glomerular Filtration Rate > 60 mL/min (>60) Glucose Level 103 MG/DL (74-106) Calcium Level 6.8 MG/DL (8.5-10.1) L Iron Level 10 ug/dL (50-175) L Total Iron Binding Capacity 70 ug/dL (250-450) L Percent Iron Saturation 14 % (15-50) L Unsaturated Iron Binding 60 ug/dL (112-346) L Ferritin 1340 NG/ML (8-388) H Total Bilirubin 0.6 MG/DL (0.2-1.0) Aspartate Amino Transf (AST/SGOT) 13 U/L (15-37) L Alanine Aminotransferase (ALT/SGPT) 6 U/L (12-78) L Alkaline Phosphatase 51 U/L (46-116) Total Protein 5.0 G/DL (6.4-8.2) L Albumin 1.2 G/DL (3.4-5.0) L Globulin 3.8 g/dL Albumin/Globulin Ratio 0.3 (1.0-2.7) L Vitamin B12 Level 291 PG/ML (193-986) Folate 5.1 NG/ML (8.6-58.9) L Free Thyroxine 0.65 NG/DL (0.76-1.46) L Random Vancomycin Level 2.2 ug/mL White Blood Count Pending Red Blood Count 3.53 M/UL (4.70-6.10) L Hemoglobin 8.7 G/DL (14.2-18.0) L Hematocrit 26.9 % (42.0-52.0) L Mean Corpuscular Volume 76 FL (80-99) L Mean Corpuscular Hemoglobin 24.7 PG (27.0-31.0) L Mean Corpuscular Hemoglobin Concent 32.4 G/DL (32.0-36.0) Red Cell Distribution Width 17.7 % (11.6-14.8) H Platelet Count 147 K/UL (150-450) L Mean Platelet Volume 5.4 FL (6.5-10.1) L Neutrophils (%) (Auto) 82.2 % (45.0-75.0) H Lymphocytes (%) (Auto) 8.5 % (20.0-45.0) L Monocytes (%) (Auto) 5.3 % (1.0-10.0) Eosinophils (%) (Auto) 3.9 % (0.0-3.0) H Basophils (%) (Auto) 0.2 % (0.0-2.0) Lymphocytes Pending Reticulocyte Count 0.7 % (0.0-2.0) Prothrombin Time 13.0 SEC (9.30-11.50) H Prothromb Time International Ratio 1.2 (0.9-1.1) H Activated Partial Thromboplast Time 41 SEC (23-33) H Carcinoembryonic Antigen Pending Percent CD3 Cells Pending Absolute CD3 Count Pending Percent CD4 Cells Pending Absolute CD4 Count Pending T-Lymphocyte CD4/CD8 Ratio Pending Percent CD8 Cells Pending Absolute CD8 Count Pending Cryptococcus Antigen Pending Hepatitis A Antibody Total Pending Hepatitis B Surface Antibody, Quant Pending Hepatitis B Core Total Antibody Pending Hepatitis C Antibody Pending Hepatitis C RNA (PCR) IUs/ml Pending Hepatitis C RNA (PCR) log IUs/ml Pending HIV-1 RNA (PCR) log10 Value Pending HIV-1 RNA Ultraquantitative (PCR) Pending Height (Feet): 5 Height (Inches): 11.00 Weight (Pounds): 132 General Appearance: WD/WN, no apparent distress, alert, thin Cardiovascular: normal rate Respiratory/Chest: normal breath sounds, no respiratory distress Abdominal Exam: normal bowel sounds, non tender, soft Extremities: normal range of motion, non-tender Simeon Fall NP May 14, 2018 11:18
--- NOTE | 2018-05-14 11:32 | Pulmonology Progress Note ---
Assessment/Plan Problems: (1) Septic shock (2) Kaposi disease (3) Castleman disease (4) HIV disease Assessment/Plan escobedo cultures, all negative so far serology pending stool is negative for C diff and OB symptomatic treatment. Subjective ROS Limited/Unobtainable: No Interval Events: feeling very weak Allergies: Coded Allergies: No Known Allergies (Unverified , 10/21/17) Objective Last 24 Hour Vital Signs Date Time Temp Pulse Resp B/P (MAP) Pulse Ox O2 Delivery O2 Flow Rate FiO2 05/14/18 08:00 Room Air 05/14/18 08:00 98.2 113 28 92/56 (68) 100 05/14/18 08:00 110 05/14/18 04:00 97.9 98 16 90/55 (67) 98 05/14/18 04:00 Room Air 05/14/18 03:25 99 05/14/18 00:55 100.3 05/14/18 00:00 Room Air 05/14/18 00:00 103.5 134 18 101/63 (76) 98 05/13/18 23:25 147 05/13/18 23:25 147 05/13/18 20:44 128 98/63 05/13/18 20:00 98.1 116 20 98/63 (75) 98 05/13/18 20:00 Room Air 05/13/18 19:28 144 05/13/18 16:00 98.8 112 16 93/61 (72) 100 05/13/18 16:00 108 05/13/18 16:00 Room Air 05/13/18 14:56 100.8 05/13/18 12:00 123 05/13/18 12:00 Room Air 05/13/18 12:00 100.8 131 22 91/51 (64) 95 Intake and Output 05/13/18 05/14/18 18:59 06:59 Intake Total 1102.5 ml 964.5 ml Output Total 800 ml Balance 302.5 ml 964.5 ml Intake Oral 450 ml IV Total 652.5 ml 964.5 ml Output Urine Total 800 ml # Voids 4 # Bowel Movements 6 7 General Appearance: cachetic HEENT: normocephalic, atraumatic Respiratory/Chest: chest wall non-tender, lungs clear Cardiovascular: normal peripheral pulses, normal rate Abdomen: normal bowel sounds, soft, non tender Genitourinary: normal external genitalia Extremities: no cyanosis Skin: no rash 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 Microbiology Date/Time Source Procedure Growth Status 05/12/18 21:05 Blood Blood Culture - Preliminary NO GROWTH AFTER 24 HOURS Resulted 05/12/18 20:50 Blood Blood Culture - Preliminary NO GROWTH AFTER 24 HOURS Resulted 05/13/18 04:00 Stool Stool Culture Pending Resulted 05/13/18 04:00 Stool Clostridium difficile Toxin Assay - Final Resulted 05/12/18 20:50 Urine,Clean Catch Urine Culture - Preliminary NO GROWTH Resulted Laboratory Tests 05/14/18 03:30: Stool Occult Blood Negative 05/14/18 04:00: Sodium Level 131L, Potassium Level 3.9, Chloride Level 99, Carbon Dioxide Level 22, Anion Gap 10, Blood Urea Nitrogen 23H, Creatinine 1.5H, Estimat Glomerular Filtration Rate > 60, Glucose Level 103, Calcium Level 6.8L, Iron Level 10L, Total Iron Binding Capacity 70L, Percent Iron Saturation 14L, Unsaturated Iron Binding 60L, Ferritin 1340H, Total Bilirubin 0.6, Aspartate Amino Transf (AST/ SGOT) 13L, Alanine Aminotransferase (ALT/SGPT) 6L, Alkaline Phosphatase 51, Total Protein 5.0L, Albumin 1.2L, Globulin 3.8, Albumin/Globulin Ratio 0.3L, Vitamin B12 Level 291, Folate 5.1L, Free Thyroxine 0.65L, Random Vancomycin Level 2.2 05/14/18 08:50: White Blood Count [Pending], Red Blood Count 3.53L, Hemoglobin 8.7L, Hematocrit 26.9L, Mean Corpuscular Volume 76L, Mean Corpuscular Hemoglobin 24.7L, Mean Corpuscular Hemoglobin Concent 32.4, Red Cell Distribution Width 17.7H, Platelet Count 147L, Mean Platelet Volume 5.4L, Neutrophils (%) (Auto) 82.2H, Lymphocytes (%) (Auto) 8.5L, Monocytes (%) (Auto) 5.3, Eosinophils (%) (Auto) 3.9H, Basophils (%) (Auto) 0.2, Lymphocytes [Pending], Reticulocyte Count 0.7, Prothrombin Time 13.0H, Prothromb Time International Ratio 1.2H, Activated Partial Thromboplast Time 41H, Carcinoembryonic Antigen [Pending], Percent CD3 Cells [Pending], Absolute CD3 Count [Pending], Percent CD4 Cells [Pending], Absolute CD4 Count [Pending], T-Lymphocyte CD4/CD8 Ratio [Pending], Percent CD8 Cells [Pending], Absolute CD8 Count [Pending], Cryptococcus Antigen [Pending], Hepatitis A Antibody Total [Pending], Hepatitis B Surface Antibody, Quant [ Pending], Hepatitis B Core Total Antibody [Pending], Hepatitis C Antibody [ Pending], Hepatitis C RNA (PCR) IUs/ml [Pending], Hepatitis C RNA (PCR) log IUs/ ml [Pending], HIV-1 RNA (PCR) log10 Value [Pending], HIV-1 RNA Ultraquantitative (PCR) [Pending] Current Medications Medications (Trade) Dose Ordered Sig/Yessica Route PRN Reason Start Time Stop Time Status Last Admin Dose Admin Acetaminophen (Tylenol) 650 mg Q4H PRN ORAL Mild Pain/Temp > 100.5 05/13/18 12:00 06/12/18 11:59 05/14/18 00:25 Azithromycin (Zithromax) 1,200 mg ONCE A WEEK ORAL 05/13/18 18:00 05/20/18 17:59 05/13/18 18:49 Dextrose/ Electrolytes 1,000 ml @ 75 mls/hr [id number] IV 05/13/18 09:45 06/12/18 09:44 05/14/18 02:58 Dolutegravir Sodium (Tivicay) 50 mg DAILY ORAL 05/13/18 09:00 06/12/18 08:59 UNV Heparin Sodium (Porcine) (Heparin 5000 units/ml) 5,000 units EVERY 8 HOURS SUBQ 05/13/18 14:00 06/12/18 13:59 05/14/18 05:46 Magnesium Sulfate 100 ml @ 100 mls/hr Q1H IVPB 05/14/18 10:00 05/14/18 13:59 05/14/18 10:26 Metoclopramide HCl (Reglan) 5 mg EVERY 6 HOURS ORAL 05/13/18 18:00 06/12/18 17:59 05/14/18 05:45 Metoprolol Tartrate (Lopressor) 50 mg Q12HR ORAL 05/13/18 06:00 06/12/18 05:59 05/13/18 05:16 Mirtazapine (Remeron) 15 mg BEDTIME ORAL 05/13/18 21:00 06/12/18 20:59 05/13/18 20:42 Morphine Sulfate (Morphine Sulfate) 2 mg Q4H PRN IVP Moderate Pain (Pain Scale 4-6) 05/13/18 12:15 05/20/18 12:14 05/13/18 14:26 Morphine Sulfate (Morphine Sulfate) 4 mg Q4H PRN IVP Severe Pain (Pain Scale 7-10) 05/13/18 12:15 05/20/18 12:14 Ondansetron HCl (Zofran) 4 mg Q4H PRN IVP Nausea & Vomiting 05/13/18 12:15 06/12/18 12:14 05/14/18 09:17 Oseltamivir Phosphate (Tamiflu) 75 mg TWICE A DAY ORAL 05/13/18 15:06 05/18/18 15:05 05/13/18 15:42 Patient Own Medication (Patient's Own Med) 1 ea DAILY ORAL 05/13/18 20:00 06/12/18 19:59 05/13/18 20:42 Piperacillin Sod/ Tazobactam Sod 3.375 gm/Sodium Chloride 110 ml @ 27.5 mls/hr EVERY 8 HOURS IVPB 05/13/18 14:00 05/18/18 13:59 05/14/18 05:45 Trimethoprim/ Sulfamethoxazole (Bactrim-DS) 1 tab Q12HR ORAL 05/13/18 21:00 05/20/18 20:59 05/13/18 20:42 Vancomycin HCl (Vanco rx to dose) 1 ea DAILY PRN MISC Per rx protocol 05/13/18 09:45 06/12/18 09:44 Vitamin D (Vitamin D) 1,000 intlu DAILY ORAL 05/13/18 09:00 06/12/18 08:59 05/13/18 10:24 Ya Hester MD May 14, 2018 11:32
--- NOTE | 2018-05-14 11:46 | NUR ---
NURSE NOTES: Patient refusing all PO meds. REfused 9 am meds, along with 12:00 reglan. Educated patient on importance of following medication regimen. States that he is afraid it will make him nauseated. 1 episode of N/V - yellowish emesis.
[2018-05-14 12:00] VITALS: BP 96/53
--- NOTE | 2018-05-14 12:12 | Infectious Diseases Prog Note ---
Assessment/Plan Assessment/Plan Abx: IV Vancomycin 05/12- Zosyn 05/13- Cefepime x1 05/12 Assessment: SEvere sepsis- ?source- ?gastroenteritis- r/o Flu - r/o HIV related infection- r /o bacteremia, r/o recurrence Castleman;s disease -Bcx NTD -CXR: No acute findings Fever No leukocytosis Nausea/vomiting/diarrhea -Cdiff neg -stool cx p HIV on ARV (dx 1999)- on Truvada and Dolutegravir -10/2017 HIV VL ND, CD4 87 (12.4%) -09/01/17 - CD4 192 and VL - ND (Out Side labs) -no hx of resistance ; previously on Truvada, Reyataz and Norvir -Has been above 200 in the past. Came down with Chemo REENA Microcytic anemia Thrombocytopenia hx pancreatitis 10/2017 - 10/22/17- CT show reticular opacity and significant lymphadenopathy 10/23/17 - CT abd/pel Lymphadenopathy, Enlarged Pancrease mild B/L hydronephrosis -Blasto, Histo, CrAg neg 11/21/16 - Quantiferon negative (Out Side lab) hx of Kaposi's sarcoma/Castleman's disease s/p chemotherapy - S/P Chemo ending 07/17/17 Last PET 08/12/17 - show stable/not worsening lymphadenopathy Hep C+ hx of Chronic Hep B, VL <15 09/01/17 hx of DVT Plan: -Continue empiric IV Vancomycin #3 and Zosyn #2 for now pending cultures -Cont empiric Tamiflu #2 pending test -05/12 SP Cefepime x1 -Will do CT neck/chest/abd/p w/ once Cr improves -f/u cx -Monitor CBC/CMP, temperatures -f/u HIV VL, Cd4, Influenza sc, CrAg, AFB bcx -aspiration precautions -GI f/u -parasite stool studies -CMV PCR am Thank you for this consultation. Will continue to follow along with you. Discussed with RN. Subjective Allergies: Coded Allergies: No Known Allergies (Unverified , 10/21/17) Subjective Tm 103.5 Cr increased Bcx NTD no WHATLEY, no sore throat, odynopaghia Objective Vital Signs Last 24 Hour Vital Signs Date Time Temp Pulse Resp B/P (MAP) Pulse Ox O2 Delivery O2 Flow Rate FiO2 05/14/18 08:00 Room Air 05/14/18 08:00 98.2 113 28 92/56 (68) 100 05/14/18 08:00 110 05/14/18 04:00 97.9 98 16 90/55 (67) 98 05/14/18 04:00 Room Air 05/14/18 03:25 99 05/14/18 00:55 100.3 05/14/18 00:00 Room Air 05/14/18 00:00 103.5 134 18 101/63 (76) 98 05/13/18 23:25 147 05/13/18 23:25 147 05/13/18 20:44 128 98/63 05/13/18 20:00 98.1 116 20 98/63 (75) 98 05/13/18 20:00 Room Air 05/13/18 19:28 144 05/13/18 16:00 98.8 112 16 93/61 (72) 100 05/13/18 16:00 108 05/13/18 16:00 Room Air 05/13/18 14:56 100.8 Height (Feet): 5 Height (Inches): 11.00 Weight (Pounds): 132 Objective General Appearance: well appearing, no apparent distress, alert, thin Head: normocephalic PERRL/EOMI, normal ENT inspection Neck: supple Respiratory: normal breath sounds, no respiratory distress Cardiovascular: normal rate Gastrointestinal: normal inspection, non tender, soft, normal bowel sounds, non -distended Musculoskeletal: normal inspection, back normal Neurologic: normal inspection, alert, oriented x3, responsive Skin: normal inspection, normal color, no rash, warm/dry, palpation normal, well hydrated Microbiology Date/Time Source Procedure Growth Status 05/12/18 21:05 Blood Blood Culture - Preliminary NO GROWTH AFTER 24 HOURS Resulted 05/12/18 20:50 Blood Blood Culture - Preliminary NO GROWTH AFTER 24 HOURS Resulted 05/13/18 04:00 Stool Stool Culture Pending Resulted 05/13/18 04:00 Stool Clostridium difficile Toxin Assay - Final Resulted 05/12/18 20:50 Urine,Clean Catch Urine Culture - Preliminary NO GROWTH Resulted Laboratory Tests Test 05/14/18 03:30 05/14/18 04:00 05/14/18 08:50 Stool Occult Blood Negative (NEGATIVE) Sodium Level 131 MMOL/L (136-145) L Potassium Level 3.9 MMOL/L (3.5-5.1) Chloride Level 99 MMOL/L (98-107) Carbon Dioxide Level 22 MMOL/L (21-32) Anion Gap 10 mmol/L (5-15) Blood Urea Nitrogen 23 mg/dL (7-18) H Creatinine 1.5 MG/DL (0.55-1.30) H Estimat Glomerular Filtration Rate > 60 mL/min (>60) Glucose Level 103 MG/DL (74-106) Calcium Level 6.8 MG/DL (8.5-10.1) L Iron Level 10 ug/dL (50-175) L Total Iron Binding Capacity 70 ug/dL (250-450) L Percent Iron Saturation 14 % (15-50) L Unsaturated Iron Binding 60 ug/dL (112-346) L Ferritin 1340 NG/ML (8-388) H Total Bilirubin 0.6 MG/DL (0.2-1.0) Aspartate Amino Transf (AST/SGOT) 13 U/L (15-37) L Alanine Aminotransferase (ALT/SGPT) 6 U/L (12-78) L Alkaline Phosphatase 51 U/L (46-116) Total Protein 5.0 G/DL (6.4-8.2) L Albumin 1.2 G/DL (3.4-5.0) L Globulin 3.8 g/dL Albumin/Globulin Ratio 0.3 (1.0-2.7) L Vitamin B12 Level 291 PG/ML (193-986) Folate 5.1 NG/ML (8.6-58.9) L Free Thyroxine 0.65 NG/DL (0.76-1.46) L Random Vancomycin Level 2.2 ug/mL White Blood Count Pending Red Blood Count 3.53 M/UL (4.70-6.10) L Hemoglobin 8.7 G/DL (14.2-18.0) L Hematocrit 26.9 % (42.0-52.0) L Mean Corpuscular Volume 76 FL (80-99) L Mean Corpuscular Hemoglobin 24.7 PG (27.0-31.0) L Mean Corpuscular Hemoglobin Concent 32.4 G/DL (32.0-36.0) Red Cell Distribution Width 17.7 % (11.6-14.8) H Platelet Count 147 K/UL (150-450) L Mean Platelet Volume 5.4 FL (6.5-10.1) L Neutrophils (%) (Auto) 82.2 % (45.0-75.0) H Lymphocytes (%) (Auto) 8.5 % (20.0-45.0) L Monocytes (%) (Auto) 5.3 % (1.0-10.0) Eosinophils (%) (Auto) 3.9 % (0.0-3.0) H Basophils (%) (Auto) 0.2 % (0.0-2.0) Lymphocytes Pending Reticulocyte Count 0.7 % (0.0-2.0) Prothrombin Time 13.0 SEC (9.30-11.50) H Prothromb Time International Ratio 1.2 (0.9-1.1) H Activated Partial Thromboplast Time 41 SEC (23-33) H Carcinoembryonic Antigen Pending Percent CD3 Cells Pending Absolute CD3 Count Pending Percent CD4 Cells Pending Absolute CD4 Count Pending T-Lymphocyte CD4/CD8 Ratio Pending Percent CD8 Cells Pending Absolute CD8 Count Pending Cryptococcus Antigen Pending Hepatitis A Antibody Total Pending Hepatitis B Surface Antibody, Quant Pending Hepatitis B Core Total Antibody Pending Hepatitis C Antibody Pending Hepatitis C RNA (PCR) IUs/ml Pending Hepatitis C RNA (PCR) log IUs/ml Pending HIV-1 RNA (PCR) log10 Value Pending HIV-1 RNA Ultraquantitative (PCR) Pending Current Medications Medications (Trade) Dose Ordered Sig/Yessica Route PRN Reason Start Time Stop Time Status Last Admin Dose Admin Acetaminophen (Tylenol) 650 mg Q4H PRN ORAL Mild Pain/Temp > 100.5 05/13/18 12:00 06/12/18 11:59 05/14/18 00:25 Azithromycin (Zithromax) 1,200 mg ONCE A WEEK ORAL 05/13/18 18:00 05/20/18 17:59 05/13/18 18:49 Dextrose/ Electrolytes 1,000 ml @ 75 mls/hr [id number] IV 05/13/18 09:45 06/12/18 09:44 05/14/18 02:58 Dolutegravir Sodium (Tivicay) 50 mg DAILY ORAL 05/13/18 09:00 06/12/18 08:59 UNV Heparin Sodium (Porcine) (Heparin 5000 units/ml) 5,000 units EVERY 8 HOURS SUBQ 05/13/18 14:00 06/12/18 13:59 05/14/18 05:46 Magnesium Sulfate 100 ml @ 100 mls/hr Q1H IVPB 05/14/18 10:00 05/14/18 13:59 05/14/18 11:00 Metoclopramide HCl (Reglan) 5 mg EVERY 6 HOURS ORAL 05/13/18 18:00 06/12/18 17:59 05/14/18 05:45 Metoprolol Tartrate (Lopressor) 50 mg Q12HR ORAL 05/13/18 06:00 06/12/18 05:59 05/13/18 05:16 Mirtazapine (Remeron) 15 mg BEDTIME ORAL 05/13/18 21:00 06/12/18 20:59 05/13/18 20:42 Morphine Sulfate (Morphine Sulfate) 2 mg Q4H PRN IVP Moderate Pain (Pain Scale 4-6) 05/13/18 12:15 05/20/18 12:14 05/13/18 14:26 Morphine Sulfate (Morphine Sulfate) 4 mg Q4H PRN IVP Severe Pain (Pain Scale 7-10) 05/13/18 12:15 05/20/18 12:14 Ondansetron HCl (Zofran) 4 mg Q4H PRN IVP Nausea & Vomiting 05/13/18 12:15 06/12/18 12:14 05/14/18 09:17 Oseltamivir Phosphate (Tamiflu) 75 mg TWICE A DAY ORAL 05/13/18 15:06 05/18/18 15:05 05/13/18 15:42 Patient Own Medication (Patient's Own Med) 1 ea DAILY ORAL 05/13/18 20:00 06/12/18 19:59 05/13/18 20:42 Piperacillin Sod/ Tazobactam Sod 3.375 gm/Sodium Chloride 110 ml @ 27.5 mls/hr EVERY 8 HOURS IVPB 05/13/18 14:00 05/18/18 13:59 05/14/18 05:45 Trimethoprim/ Sulfamethoxazole (Bactrim-DS) 1 tab Q12HR ORAL 05/13/18 21:00 05/20/18 20:59 05/13/18 20:42 Vancomycin HCl (Vanco rx to dose) 1 ea DAILY PRN MISC Per rx protocol 05/13/18 09:45 06/12/18 09:44 Vitamin D (Vitamin D) 1,000 intlu DAILY ORAL 05/13/18 09:00 06/12/18 08:59 05/13/18 10:24 Maite Mobley M.D. May 14, 2018 12:12
--- NOTE | 2018-05-14 12:45 | NUR ---
NURSE NOTES: Mother Debbie called. Updated regarding patient's condition. No new orders at this time. Patient denies nausea at this time remains sleeping.
[2018-05-14] MEDS: Morphine Sulfate 2mg/ml Inj(IV/IM USE ONLY) IVP PRN (14:44)
[2018-05-14 16:00] VITALS: BP 95/60
--- NOTE | 2018-05-14 16:00 | NUR ---
NURSE NOTES: VSS. No distress noted. Patient complains of pain. Morphine administered see EMAR. Remains refusing PO meds states that he wants to be left alone to rest. Will continue to monitor patient.
--- NOTE | 2018-05-14 16:48 | Internal Med Progress Note ---
Subjective Physician Name Adam Padron Attending Physician Alberto Gtz MD Current Medications Medications (Trade) Dose Ordered Sig/Yessica Route PRN Reason Start Time Stop Time Status Last Admin Dose Admin Acetaminophen (Tylenol) 650 mg Q4H PRN ORAL Mild Pain/Temp > 100.5 05/13/18 12:00 06/12/18 11:59 05/14/18 00:25 Azithromycin (Zithromax) 1,200 mg ONCE A WEEK ORAL 05/13/18 18:00 05/20/18 17:59 05/13/18 18:49 Dextrose/ Electrolytes 1,000 ml @ 75 mls/hr [id number] IV 05/13/18 09:45 06/12/18 09:44 05/14/18 02:58 Dolutegravir Sodium (Tivicay) 50 mg DAILY ORAL 05/13/18 09:00 06/12/18 08:59 UNV Heparin Sodium (Porcine) (Heparin 5000 units/ml) 5,000 units EVERY 8 HOURS SUBQ 05/13/18 14:00 06/12/18 13:59 05/14/18 14:45 Metoclopramide HCl (Reglan) 5 mg EVERY 6 HOURS ORAL 05/13/18 18:00 06/12/18 17:59 05/14/18 05:45 Metoprolol Tartrate (Lopressor) 50 mg Q12HR ORAL 05/13/18 06:00 06/12/18 05:59 05/13/18 05:16 Mirtazapine (Remeron) 15 mg BEDTIME ORAL 05/13/18 21:00 06/12/18 20:59 05/13/18 20:42 Morphine Sulfate (Morphine Sulfate) 2 mg Q4H PRN IVP Moderate Pain (Pain Scale 4-6) 05/13/18 12:15 05/20/18 12:14 05/14/18 14:44 Morphine Sulfate (Morphine Sulfate) 4 mg Q4H PRN IVP Severe Pain (Pain Scale 7-10) 05/13/18 12:15 05/20/18 12:14 Ondansetron HCl (Zofran) 4 mg Q4H PRN IVP Nausea & Vomiting 05/13/18 12:15 06/12/18 12:14 05/14/18 09:17 Oseltamivir Phosphate (Tamiflu) 75 mg TWICE A DAY ORAL 05/13/18 15:06 05/18/18 15:05 05/13/18 15:42 Patient Own Medication (Patient's Own Med) 1 ea DAILY ORAL 05/13/18 20:00 06/12/18 19:59 05/13/18 20:42 Piperacillin Sod/ Tazobactam Sod 3.375 gm/Sodium Chloride 110 ml @ 27.5 mls/hr EVERY 8 HOURS IVPB 05/13/18 14:00 05/18/18 13:59 05/14/18 14:46 Trimethoprim/ Sulfamethoxazole (Bactrim-DS) 1 tab Q12HR ORAL 05/13/18 21:00 05/20/18 20:59 05/13/18 20:42 Vancomycin HCl (Vanco rx to dose) 1 ea DAILY PRN MISC Per rx protocol 05/13/18 09:45 06/12/18 09:44 Vitamin D (Vitamin D) 1,000 intlu DAILY ORAL 05/13/18 09:00 06/12/18 08:59 05/13/18 10:24 Allergies: Coded Allergies: No Known Allergies (Unverified , 10/21/17) Objective Last Vital Signs Date Time Temp Pulse Resp B/P (MAP) Pulse Ox O2 Delivery O2 Flow Rate FiO2 05/14/18 16:00 99.9 117 24 95/60 (72) 96 05/14/18 16:00 Room Air Laboratory Tests Test 05/14/18 03:30 05/14/18 04:00 05/14/18 08:50 Stool Occult Blood Negative (NEGATIVE) Sodium Level 131 MMOL/L (136-145) L Potassium Level 3.9 MMOL/L (3.5-5.1) Chloride Level 99 MMOL/L (98-107) Carbon Dioxide Level 22 MMOL/L (21-32) Anion Gap 10 mmol/L (5-15) Blood Urea Nitrogen 23 mg/dL (7-18) H Creatinine 1.5 MG/DL (0.55-1.30) H Estimat Glomerular Filtration Rate > 60 mL/min (>60) Glucose Level 103 MG/DL (74-106) Calcium Level 6.8 MG/DL (8.5-10.1) L Iron Level 10 ug/dL (50-175) L Total Iron Binding Capacity 70 ug/dL (250-450) L Percent Iron Saturation 14 % (15-50) L Unsaturated Iron Binding 60 ug/dL (112-346) L Ferritin 1340 NG/ML (8-388) H Total Bilirubin 0.6 MG/DL (0.2-1.0) Aspartate Amino Transf (AST/SGOT) 13 U/L (15-37) L Alanine Aminotransferase (ALT/SGPT) 6 U/L (12-78) L Alkaline Phosphatase 51 U/L (46-116) Total Protein 5.0 G/DL (6.4-8.2) L Albumin 1.2 G/DL (3.4-5.0) L Globulin 3.8 g/dL Albumin/Globulin Ratio 0.3 (1.0-2.7) L Vitamin B12 Level 291 PG/ML (193-986) Folate 5.1 NG/ML (8.6-58.9) L Free Thyroxine 0.65 NG/DL (0.76-1.46) L Random Vancomycin Level 2.2 ug/mL Hepatitis B Surface Antigen Pending White Blood Count Pending Red Blood Count 3.53 M/UL (4.70-6.10) L Hemoglobin 8.7 G/DL (14.2-18.0) L Hematocrit 26.9 % (42.0-52.0) L Mean Corpuscular Volume 76 FL (80-99) L Mean Corpuscular Hemoglobin 24.7 PG (27.0-31.0) L Mean Corpuscular Hemoglobin Concent 32.4 G/DL (32.0-36.0) Red Cell Distribution Width 17.7 % (11.6-14.8) H Platelet Count 147 K/UL (150-450) L Mean Platelet Volume 5.4 FL (6.5-10.1) L Neutrophils (%) (Auto) 82.2 % (45.0-75.0) H Lymphocytes (%) (Auto) 8.5 % (20.0-45.0) L Monocytes (%) (Auto) 5.3 % (1.0-10.0) Eosinophils (%) (Auto) 3.9 % (0.0-3.0) H Basophils (%) (Auto) 0.2 % (0.0-2.0) Lymphocytes Pending Reticulocyte Count 0.7 % (0.0-2.0) Prothrombin Time 13.0 SEC (9.30-11.50) H Prothromb Time International Ratio 1.2 (0.9-1.1) H Activated Partial Thromboplast Time 41 SEC (23-33) H Amylase Level Pending Lipase Pending Carcinoembryonic Antigen Pending Percent CD3 Cells Pending Absolute CD3 Count Pending Percent CD4 Cells Pending Absolute CD4 Count Pending T-Lymphocyte CD4/CD8 Ratio Pending Percent CD8 Cells Pending Absolute CD8 Count Pending Cryptococcus Antigen Pending Hepatitis A Antibody Total Pending Hepatitis B Surface Antibody, Quant Pending Hepatitis B Core Total Antibody Pending Hepatitis C Antibody Pending Hepatitis C RNA (PCR) IUs/ml Pending Hepatitis C RNA (PCR) log IUs/ml Pending HIV-1 RNA (PCR) log10 Value Pending HIV-1 RNA Ultraquantitative (PCR) Pending Microbiology Date/Time Source Procedure Growth Status 05/12/18 21:05 Blood Blood Culture - Preliminary NO GROWTH AFTER 24 HOURS Resulted 05/12/18 20:50 Blood Blood Culture - Preliminary NO GROWTH AFTER 24 HOURS Resulted 05/13/18 04:00 Stool Stool Culture Pending Resulted 05/13/18 04:00 Stool Clostridium difficile Toxin Assay - Final Resulted 05/12/18 20:50 Urine,Clean Catch Urine Culture - Preliminary NO GROWTH Resulted Intake and Output 05/13/18 05/14/18 19:00 07:00 Intake Total 1177.5 ml 964.5 ml Output Total 800 ml Balance 377.5 ml 964.5 ml Intake Oral 450 ml IV Total 727.5 ml 964.5 ml Output Urine Total 800 ml # Voids 4 # Bowel Movements 6 7 Objective PHYSICAL EXAMINATION: VITAL SIGNS: Temperature 99.7, respirations 24, pulse 128, and blood pressure 96/59. GENERAL: The patient is thin-appearing male, in no apparent distress. HEENT: Eyes, pupils equal and responsive to light and accommodation. Extraocular movements intact. NECK: Supple without lymphadenopathy. CHEST: Lungs are clear to auscultation bilaterally without wheezes or rales. CARDIOVASCULAR: Regular rhythm and rate. S1 and S2 are normal without murmurs, rubs, or gallops. ABDOMEN: Soft and nondistended with decreased bowel sounds. No evidence of hepatosplenomegaly. Currently, no rebound or guarding noted. EXTREMITIES: Negative for clubbing, cyanosis, or edema. RECTAL: Refused. GENITAL: Refused. NEUROLOGIC: Cranial nerves II through XII are grossly intact without focal deficits. Motor strength is 5/5 bilaterally intact. Deep tendon reflexes are 2+, plantar. Assessment/Plan Assessment/Plan ASSESSMENT: This is a 37-year-old male: 1. Nausea with vomiting. 2. Diarrhea. 3. Vertigo. 4. Hypotension. 5. HIV. 6. Kaposi sarcoma. 7. Castleman disease. TREATMENT: 1. Nausea/vomiting/diarrhea. Gastroenterology consultation with Dr. Michael Grande. Stool cultures including Clostridium difficile, stool culture, and ova and parasite are pending. T he patient has been started empirically on Zosyn. An infectious disease consultation has been obtained with Dr Mobley. We will follow recommendations of Gastroenterology and Infectious Disease. 2. Hypotension. This may be secondary to sepsis. Continue Zosyn as above. 3. Kaposi sarcoma. The patient is status post chemotherapy. 4. Castleman disease. Adam Padron MD May 14, 2018 16:48
[2018-05-14 16:58] LABS: AMYLASE 20 U/L (25-115)
[2018-05-14 20:00] VITALS: BP 97/59
[2018-05-14] MEDS: Morphine Sulfate 4mg/ml Inj (IV USE ONLY) IVP PRN (21:00)
[2018-05-15] VITALS: BP 99/63
--- NOTE | 2018-05-15 | NUR ---
NURSE NOTES: Patient VSS, low grade fevers, NAD at this time, does complain of bilateral feet pain. No new events.
[2018-05-15] MEDS: D5 1/2NS w/KCl 40meq 1000ml 1,000 ML IV SCH ×2 (00:33→15:43)
[2018-05-15 04:00] VITALS: BP 98/47
--- NOTE | 2018-05-15 04:00 | NUR ---
NURSE NOTES: Patient refusing AM labs. Will try again later. Patient remains alert and oriented, BP systolically ranging in the 90s. Low grade fevers.
[2018-05-15] MEDS: Morphine Sulfate 4mg/ml Inj (IV USE ONLY) IVP PRN ×3 (05:05→14:43)
[2018-05-15] MEDS: Zoysn 3.37gm in NS 100ML IVPB SCH (05:08)
[2018-05-15] MEDS: Metoclopramide 10mg/10ml Liq ORAL SCH ×5 (05:09→23:02)
[2018-05-15] MEDS: Heparin 5000 units/ml inj SUBQ SCH ×3 (05:11→22:00)
--- NOTE | 2018-05-15 07:36 | NUR ---
NURSE NOTES: Received pt from [facility] in stable condition. Pt is asleep at the moment on RA with HR 105 [address] monitor. Pt uses bedpan and urinal. No skin alterations noted. R FA 20g IV noted. Bed is in lowest position & alarm on, side rails up x 2, call light within reach. Will continue to monitor pt. Addendum: 05/15/18 at 1005 by Shelly Lee RN Skin alterations noted.
[2018-05-15 08:00] VITALS: BP 94/58
[2018-05-15] MEDS: Patient's Own Med - Truvada 200/300mg ORAL SCH (09:05)
[2018-05-15] MEDS: Dolutegravir Sodium 50mg tab ORAL SCH (09:05)
[2018-05-15] MEDS: Vitamin D 1000 IU Tab ORAL SCH (09:06)
[2018-05-15] MEDS: Oseltamivir 75mg cap ORAL SCH ×2 (09:06→17:52)
[2018-05-15] MEDS: Bactrim-DS 1 tab ORAL SCH ×2 (09:07→20:31)
[2018-05-15] MEDS: Metoprolol Tartrate 50mg tab ORAL SCH ×2 (09:07→20:31)
[2018-05-15 10:59] LABS: BASOPHILS % (AUTO) 0.5 % (0.0-2.0); EOSINOPHILS % (AUTO) 5.1 % (0.0-3.0); HEMATOCRIT 27.4 % (42.0-52.0); HEMOGLOBIN 8.6 G/DL (14.2-18.0); MEAN CORPUSCULAR VOLUME 76 FL (80-99); MONOCYTES % (AUTO) 4.9 % (1.0-10.0); NEUTROPHILS % (AUTO) 80.6 % (45.0-75.0); PLATELET COUNT 125 K/UL (150-450); RED BLOOD COUNT 3.61 M/UL (4.70-6.10); RED CELL DISTRIBUTION WIDTH 17.8 % (11.6-14.8); WHITE BLOOD COUNT 6.7 K/UL (4.8-10.8)
--- NOTE | 2018-05-15 11:03 | Pulmonology Progress Note ---
Assessment/Plan Problems: (1) Septic shock (2) ATN (acute tubular necrosis) (3) Kaposi disease (4) Castleman disease (5) HIV disease (6) Hepatitis C (7) Hepatitis B (8) Cyclic vomiting syndrome Assessment/Plan afebrile now feeling better CD4 number is in 60 escobedo cultures, all negative so far serology pending stool is negative for C diff and OB symptomatic treatment. Subjective ROS Limited/Unobtainable: No Interval Events: feeling better Constitutional: Reports: no symptoms HEENT: Repors: no symptoms Allergies: Coded Allergies: No Known Allergies (Unverified , 10/21/17) Objective Last 24 Hour Vital Signs Date Time Temp Pulse Resp B/P (MAP) Pulse Ox O2 Delivery O2 Flow Rate FiO2 05/15/18 09:07 108 94/58 05/15/18 08:00 97.2 108 14 94/58 (70) 99 05/15/18 08:00 106 05/15/18 08:00 Room Air 05/15/18 05:38 99.3 05/15/18 04:00 122 05/15/18 04:00 Room Air 05/15/18 04:00 99.0 114 20 98/47 (64) 100 05/15/18 00:00 115 05/15/18 00:00 Room Air 05/15/18 00:00 99.7 120 20 99/63 (75) 99 05/14/18 21:01 133 95/60 05/14/18 20:00 100.9 115 24 97/59 (72) 99 05/14/18 20:00 133 05/14/18 20:00 Room Air 05/14/18 16:00 123 05/14/18 16:00 99.9 117 24 95/60 (72) 96 05/14/18 16:00 Room Air 05/14/18 12:00 100.0 115 26 96/53 (67) 100 05/14/18 12:00 Room Air 05/14/18 11:49 117 Intake and Output 05/14/18 05/15/18 18:59 06:59 Intake Total 902.5 ml 1005.0 ml Output Total 700 ml 1150 ml Balance 202.5 ml -145.0 ml Intake Oral 500 ml IV Total 902.5 ml 505.0 ml Output Urine Total 700 ml 1150 ml # Voids 4 4 # Bowel Movements 7 7 General Appearance: cachetic HEENT: normocephalic, atraumatic Respiratory/Chest: chest wall non-tender, lungs clear Cardiovascular: normal peripheral pulses, normal rate Abdomen: normal bowel sounds, soft, non tender Genitourinary: normal external genitalia Skin: no rash 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 Resulted 05/13/18 04:00 Stool Stool Culture - Final NO SALMONELLA,SHIGELLA,CAMPYLOBACTER,... Complete 05/13/18 04:00 Stool Clostridium difficile Toxin Assay - Final Complete 05/12/18 20:50 Urine,Clean Catch Urine Culture - Preliminary Mixed Gram Positive Organism Resulted Laboratory Tests 05/15/18 10:40: White Blood Count [Pending], Red Blood Count [Pending], Hemoglobin [Pending], Hematocrit [Pending], Mean Corpuscular Volume [Pending], Mean Corpuscular Hemoglobin [Pending], Mean Corpuscular Hemoglobin Concent [Pending], Red Cell Distribution Width [Pending], Platelet Count [Pending], Mean Platelet Volume [ Pending], Neutrophils (%) (Auto) [Pending], Lymphocytes (%) (Auto) [Pending], Monocytes (%) (Auto) [Pending], Eosinophils (%) (Auto) [Pending], Basophils (%) (Auto) [Pending], Sodium Level [Pending], Potassium Level [Pending], Chloride Level [Pending], Carbon Dioxide Level [Pending], Blood Urea Nitrogen [Pending], Creatinine [Pending], Estimat Glomerular Filtration Rate [Pending], Glucose Level [Pending], Calcium Level [Pending], Random Vancomycin Level [Pending], Cytomegalovirus DNA Qual (PCR) [Pending] Current Medications Medications (Trade) Dose Ordered Sig/Yessica Route PRN Reason Start Time Stop Time Status Last Admin Dose Admin Acetaminophen (Tylenol) 650 mg Q4H PRN ORAL Mild Pain/Temp > 100.5 05/13/18 12:00 06/12/18 11:59 05/15/18 05:08 Azithromycin (Zithromax) 1,200 mg ONCE A WEEK ORAL 05/13/18 18:00 05/20/18 17:59 05/13/18 18:49 Dextrose/ Electrolytes 1,000 ml @ 75 mls/hr [id number] IV 05/13/18 09:45 06/12/18 09:44 05/15/18 00:33 Dolutegravir Sodium (Tivicay) 50 mg DAILY ORAL 05/15/18 09:00 06/14/18 08:59 05/15/18 09:05 Folic Acid (Folate) 1 mg DAILY ORAL 05/15/18 09:30 06/14/18 09:29 05/15/18 10:27 Heparin Sodium (Porcine) (Heparin 5000 units/ml) 5,000 units EVERY 8 HOURS SUBQ 05/13/18 14:00 06/12/18 13:59 05/15/18 05:11 Metoclopramide HCl (Reglan) 5 mg EVERY 6 HOURS ORAL 05/13/18 18:00 06/12/18 17:59 05/15/18 05:09 Metoprolol Tartrate (Lopressor) 50 mg Q12HR ORAL 05/13/18 06:00 06/12/18 05:59 05/15/18 09:07 Mirtazapine (Remeron) 15 mg BEDTIME ORAL 05/13/18 21:00 06/12/18 20:59 05/14/18 21:01 Morphine Sulfate (Morphine Sulfate) 2 mg Q4H PRN IVP Moderate Pain (Pain Scale 4-6) 05/13/18 12:15 05/20/18 12:14 05/14/18 14:44 Morphine Sulfate (Morphine Sulfate) 4 mg Q4H PRN IVP Severe Pain (Pain Scale 7-10) 05/13/18 12:15 05/20/18 12:14 05/15/18 09:12 Ondansetron HCl (Zofran) 4 mg Q4H PRN IVP Nausea & Vomiting 05/13/18 12:15 06/12/18 12:14 05/15/18 05:04 Oseltamivir Phosphate (Tamiflu) 75 mg TWICE A DAY ORAL 05/13/18 15:06 05/18/18 15:05 05/15/18 09:06 Patient Own Medication (Patient's Own Med) 1 ea DAILY ORAL 05/13/18 20:00 06/12/18 19:59 05/15/18 09:05 Piperacillin Sod/ Tazobactam Sod 3.375 gm/Sodium Chloride 110 ml @ 27.5 mls/hr EVERY 8 HOURS IVPB 05/13/18 14:00 05/18/18 13:59 05/15/18 05:08 Trimethoprim/ Sulfamethoxazole (Bactrim-DS) 1 tab Q12HR ORAL 05/13/18 21:00 05/20/18 20:59 05/15/18 09:07 Vancomycin HCl (Vanco rx to dose) 1 ea DAILY PRN MISC Per rx protocol 05/13/18 09:45 06/12/18 09:44 Vitamin D (Vitamin D) 1,000 intlu DAILY ORAL 05/13/18 09:00 06/12/18 08:59 05/15/18 09:06 Ya Hester MD May 15, 2018 11:03
--- NOTE | 2018-05-15 11:07 | GI Progress Note ---
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 SNOMED: 11768451 (2) Cyclic vomiting syndrome ICD Codes: G43.A0 - Cyclical vomiting, not intractable SNOMED: 86060750 (3) Nausea & vomiting ICD Codes: R11.2 - Nausea with vomiting, unspecified SNOMED: 71125183 (4) Electrolyte imbalance ICD Codes: E87.8 - Other disorders of electrolyte and fluid balance, not elsewhere classified SNOMED: 380877941 (5) Diarrhea ICD Codes: R19.7 - Diarrhea, unspecified SNOMED: 68697768 (6) Gastroenteritis ICD Codes: K52.9 - Noninfective gastroenteritis and colitis, unspecified SNOMED: 84359985 (7) Dehydration ICD Codes: E86.0 - Dehydration SNOMED: 35275069 Status: unchanged Status Narrative Discussed with Dr. Grande Assessment/Plan Recent history of unremarkable endoscopy and colonoscopy Marijuana use Kaposi Disease s/p chemotherapy Microcytic anemia C. difficile is negative stool culture negative CD4 count of 64, will check for Cryptosporidium hold Venofer given elevated ferritin levels Advance diet as tolerated Increase Reglan [id number] Zofran as needed OB stool r/o GI bleed monitor H&H, prn transfusions Imodium prn ppi IV and p.o. hydration plus electrolyte correction fu labs The patient was seen and examined at bedside and all new and available data was reviewed in the patients chart. I agree with the above findings, impression and plan. (Patient seen earlier today. Signature stamp does not reflect patient encounter time.). - Michael Grande MD Subjective Subjective Patient continues to complain of nausea Stated he had an episode of emesis this morning Objective Last 24 Hour Vital Signs Date Time Temp Pulse Resp B/P (MAP) Pulse Ox O2 Delivery O2 Flow Rate FiO2 05/15/18 09:07 108 94/58 05/15/18 08:00 97.2 108 14 94/58 (70) 99 05/15/18 08:00 106 05/15/18 08:00 Room Air 05/15/18 05:38 99.3 05/15/18 04:00 122 05/15/18 04:00 Room Air 05/15/18 04:00 99.0 114 20 98/47 (64) 100 05/15/18 00:00 115 05/15/18 00:00 Room Air 05/15/18 00:00 99.7 120 20 99/63 (75) 99 05/14/18 21:01 133 95/60 05/14/18 20:00 100.9 115 24 97/59 (72) 99 05/14/18 20:00 133 05/14/18 20:00 Room Air 05/14/18 16:00 123 05/14/18 16:00 99.9 117 24 95/60 (72) 96 05/14/18 16:00 Room Air 05/14/18 12:00 100.0 115 26 96/53 (67) 100 05/14/18 12:00 Room Air 05/14/18 11:49 117 Intake and Output 05/14/18 05/15/18 18:59 06:59 Intake Total 902.5 ml 1005.0 ml Output Total 700 ml 1150 ml Balance 202.5 ml -145.0 ml Intake Oral 500 ml IV Total 902.5 ml 505.0 ml Output Urine Total 700 ml 1150 ml # Voids 4 4 # Bowel Movements 7 7 Laboratory Tests Test 05/15/18 10:40 White Blood Count Pending Red Blood Count Pending Hemoglobin Pending Hematocrit Pending Mean Corpuscular Volume Pending Mean Corpuscular Hemoglobin Pending Mean Corpuscular Hemoglobin Concent Pending Red Cell Distribution Width Pending Platelet Count Pending Mean Platelet Volume Pending Neutrophils (%) (Auto) Pending Lymphocytes (%) (Auto) Pending Monocytes (%) (Auto) Pending Eosinophils (%) (Auto) Pending Basophils (%) (Auto) Pending Sodium Level Pending Potassium Level Pending Chloride Level Pending Carbon Dioxide Level Pending Blood Urea Nitrogen Pending Creatinine Pending Estimat Glomerular Filtration Rate Pending Glucose Level Pending Calcium Level Pending Random Vancomycin Level Pending Cytomegalovirus DNA Qual (PCR) Pending Height (Feet): 5 Height (Inches): 11.00 Weight (Pounds): 132 General Appearance: WD/WN, no apparent distress, alert, thin Cardiovascular: normal rate Respiratory/Chest: normal breath sounds, no respiratory distress Abdominal Exam: normal bowel sounds, non tender, soft Extremities: normal range of motion, non-tender Simeon Fall STATISTICIAN THEORETICAL May 15, 2018 11:07
[2018-05-15 11:08] LABS: ANION GAP 4 mmol/L (5-15); BLOOD UREA NITROGEN 15 mg/dL (7-18); CALCIUM 7.2 MG/DL (8.5-10.1); CARBON DIOXIDE 27 MMOL/L (21-32); CHLORIDE 102 MMOL/L (98-107); CREATININE 1.2 MG/DL (0.55-1.30); POTASSIUM 4.4 MMOL/L (3.5-5.1); SODIUM 133 MMOL/L (136-145)
--- NOTE | 2018-05-15 11:15 | NUR ---
NURSE NOTES: Pt states he is missing his LG cell phone that was attached to a hot pink case/wallet with $108 in thacker and his Bus Pass. Pt is stating it was on his bed and disappeared when the he was being cleaned this morning by Elsa and Lucie. Susi from [employer] was informed. Debbie pt's mother was also informed.
[2018-05-15 11:25] LABS: ALANINE AMINOTRANSFERASE 7 U/L (12-78); ALBUMIN 1.2 G/DL (3.4-5.0); ALBUMIN/GLOBULIN RATIO 0.3 (1.0-2.7); ALKALINE PHOSPHATASE 58 U/L (46-116); ANION GAP 4 mmol/L (5-15); ASPARTATE AMINO TRANSFERASE 13 U/L (15-37); BILIRUBIN,TOTAL 0.4 MG/DL (0.2-1.0); BLOOD UREA NITROGEN 15 mg/dL (7-18); CALCIUM 7.2 MG/DL (8.5-10.1); CARBON DIOXIDE 27 MMOL/L (21-32); CHLORIDE 102 MMOL/L (98-107); CREATINE KINASE 8 U/L (26-308); CREATININE 1.2 MG/DL (0.55-1.30); POTASSIUM 4.4 MMOL/L (3.5-5.1); SODIUM 133 MMOL/L (136-145)
[2018-05-15 12:00] VITALS: BP 96/58
--- NOTE | 2018-05-15 12:03 | NUR ---
KNOWLEDGE ANALYSTCAUL PULLER SI:SEPSIS VS: BP 98/47, P 133, T 97.2, RR 20, SpO2 99 RBC 3.61, Hgb 8.6, Hct 27.4, Na 133 IS:TIVICAY 50mg BACTRIM-DS 1TAB REGLAN 5mg ZITHROMAX 1200mg HEPARIN SUBQ PIPERACILLIN 110ml IVPB ZOFRAN 4mg IVP SDU STATUS
[2018-05-15] MEDS ORDERED: Isovue-300 100ml vial INJ PRN ×2 (12:45)
--- NOTE | 2018-05-15 12:53 | Infectious Diseases Prog Note ---
Assessment/Plan Assessment/Plan Abx: IV Vancomycin 05/12- Zosyn 05/13- Cefepime x1 05/12 Assessment: SEvere sepsis Fever- r/o opportunistic infection (ie CMV, MAC, recurrence Castleman) -Bcx NTD -CXR: No acute findings Fever; improving No leukocytosis Nausea/vomiting/diarrhea -Cdiff neg -stool cx normal phi HIV on ARV (dx 1999)- on Truvada and Dolutegravir, now AIDS -04/2018 HIV VL p, Cd4 64 (9.1%); ?decrease due to non complinace -10/2017 HIV VL ND, CD4 87 (12.4%) -09/01/17 - CD4 192 and VL - ND (Out Side labs) -no hx of resistance ; previously on Truvada, Reyataz and Norvir -Has been above 200 in the past. Came down with Chemo REENA, improving Microcytic anemia Thrombocytopenia hx pancreatitis 10/2017 - 10/22/17- CT show reticular opacity and significant lymphadenopathy 10/23/17 - CT abd/pel Lymphadenopathy, Enlarged Pancrease mild B/L hydronephrosis -Blasto, Histo, CrAg neg 11/21/16 - Quantiferon negative (Out Side lab) hx of Kaposi's sarcoma/Castleman's disease s/p chemotherapy - S/P Chemo ending 07/17/17 Last PET 08/12/17 - show stable/not worsening lymphadenopathy Hep C+ hx of Chronic Hep B, VL <15 09/01/17 hx of DVT Plan: -D/c empiric IV Vancomycin #4 and switch empiric Zosyn #3 to Ceftriaxone and Flagyl -Cont empiric Tamiflu #3/5 pending test -05/12 SP Cefepime x1 -CT head/chest/abd/p w/ given ongoing fever and immunocompromise state to look for evidence of OI -f/u cx -Monitor CBC/CMP, temperatures -f/u HIV VL, Influenza sc, CrAg, AFB bcx, CMV PCR -aspiration precautions -GI f/u -parasite stool studies -Histoplasma ag urine, COcci ab Thank you for this consultation. Will continue to follow along with you. Discussed with RN. Subjective Allergies: Coded Allergies: No Known Allergies (Unverified , 10/21/17) Subjective Tm 100.9 no leukocytosis +eosinophilia, thrombcoytopenia and anemia Cr improved Bcx NTD Objective Vital Signs Last 24 Hour Vital Signs Date Time Temp Pulse Resp B/P (MAP) Pulse Ox O2 Delivery O2 Flow Rate FiO2 05/15/18 09:07 108 94/58 05/15/18 08:00 97.2 108 14 94/58 (70) 99 05/15/18 08:00 106 05/15/18 08:00 Room Air 05/15/18 05:38 99.3 05/15/18 04:00 122 05/15/18 04:00 Room Air 05/15/18 04:00 99.0 114 20 98/47 (64) 100 05/15/18 00:00 115 05/15/18 00:00 Room Air 05/15/18 00:00 99.7 120 20 99/63 (75) 99 05/14/18 21:01 133 95/60 05/14/18 20:00 100.9 115 24 97/59 (72) 99 05/14/18 20:00 133 05/14/18 20:00 Room Air 05/14/18 16:00 123 05/14/18 16:00 99.9 117 24 95/60 (72) 96 05/14/18 16:00 Room Air Height (Feet): 5 Height (Inches): 11.00 Weight (Pounds): 132 Objective General Appearance: well appearing, no apparent distress, alert, thin Head: normocephalic PERRL/EOMI, normal ENT inspection Neck: supple Respiratory: normal breath sounds, no respiratory distress Cardiovascular: normal rate Gastrointestinal: normal inspection, non tender, soft, normal bowel sounds, non -distended Musculoskeletal: normal inspection, back normal Neurologic: normal inspection, alert, oriented x3, responsive Skin: normal inspection, normal color, no rash, warm/dry, palpation normal, well hydrated Microbiology Date/Time Source Procedure Growth Status 05/13/18 10:15 Blood Blood Culture - Preliminary NO GROWTH AFTER 24 HOURS Resulted 05/13/18 10:00 Blood Blood Culture - Preliminary NO GROWTH AFTER 24 HOURS Resulted 05/12/18 21:05 Blood Blood Culture - Preliminary NO GROWTH AFTER 48 HOURS Resulted 05/12/18 20:50 Blood Blood Culture - Preliminary NO GROWTH AFTER 48 HOURS Resulted 05/14/18 03:30 Stool Stool Culture - Preliminary NORMAL FECAL PHI. Resulted 05/13/18 04:00 Stool Stool Culture - Final NO SALMONELLA,SHIGELLA,CAMPYLOBACTER,... Complete 05/13/18 04:00 Stool Clostridium difficile Toxin Assay - Final Complete 05/12/18 20:50 Urine,Clean Catch Urine Culture - Preliminary Mixed Gram Positive Organism Resulted Laboratory Tests Test 05/15/18 10:40 White Blood Count 6.7 K/UL (4.8-10.8) Red Blood Count 3.61 M/UL (4.70-6.10) L Hemoglobin 8.6 G/DL (14.2-18.0) L Hematocrit 27.4 % (42.0-52.0) L Mean Corpuscular Volume 76 FL (80-99) L Mean Corpuscular Hemoglobin 23.8 PG (27.0-31.0) L Mean Corpuscular Hemoglobin Concent 31.3 G/DL (32.0-36.0) L Red Cell Distribution Width 17.8 % (11.6-14.8) H Platelet Count 125 K/UL (150-450) L Mean Platelet Volume 5.4 FL (6.5-10.1) L Neutrophils (%) (Auto) 80.6 % (45.0-75.0) H Lymphocytes (%) (Auto) 9.0 % (20.0-45.0) L Monocytes (%) (Auto) 4.9 % (1.0-10.0) Eosinophils (%) (Auto) 5.1 % (0.0-3.0) H Basophils (%) (Auto) 0.5 % (0.0-2.0) Sodium Level 133 MMOL/L (136-145) L Potassium Level 4.4 MMOL/L (3.5-5.1) Chloride Level 102 MMOL/L (98-107) Carbon Dioxide Level 27 MMOL/L (21-32) Anion Gap 4 mmol/L (5-15) L Blood Urea Nitrogen 15 mg/dL (7-18) Creatinine 1.2 MG/DL (0.55-1.30) Estimat Glomerular Filtration Rate > 60 mL/min (>60) Glucose Level 105 MG/DL (74-106) Uric Acid 2.1 MG/DL (2.6-7.2) L Calcium Level 7.2 MG/DL (8.5-10.1) L Total Bilirubin 0.4 MG/DL (0.2-1.0) Aspartate Amino Transf (AST/SGOT) 13 U/L (15-37) L Alanine Aminotransferase (ALT/SGPT) 7 U/L (12-78) L Alkaline Phosphatase 58 U/L (46-116) Total Creatine Kinase 8 U/L (26-308) L Total Protein 5.7 G/DL (6.4-8.2) L Albumin 1.2 G/DL (3.4-5.0) L Globulin 4.5 g/dL Albumin/Globulin Ratio 0.3 (1.0-2.7) L Random Vancomycin Level 2.2 ug/mL Cytomegalovirus DNA Qual (PCR) Pending Current Medications Medications (Trade) Dose Ordered Sig/Yessica Route PRN Reason Start Time Stop Time Status Last Admin Dose Admin Acetaminophen (Tylenol) 650 mg Q4H PRN ORAL Mild Pain/Temp > 100.5 05/13/18 12:00 06/12/18 11:59 05/15/18 05:08 Azithromycin (Zithromax) 1,200 mg ONCE A WEEK ORAL 05/13/18 18:00 05/20/18 17:59 05/13/18 18:49 Dextrose/ Electrolytes 1,000 ml @ 75 mls/hr [id number] IV 05/13/18 09:45 06/12/18 09:44 05/15/18 00:33 Dolutegravir Sodium (Tivicay) 50 mg DAILY ORAL 05/15/18 09:00 06/14/18 08:59 05/15/18 09:05 Folic Acid (Folate) 1 mg DAILY ORAL 05/15/18 09:30 06/14/18 09:29 05/15/18 10:27 Heparin Sodium (Porcine) (Heparin 5000 units/ml) 5,000 units EVERY 8 HOURS SUBQ 05/13/18 14:00 06/12/18 13:59 05/15/18 05:11 Iron Sucrose 200 mg/Sodium Chloride 120 ml @ 240 mls/hr ONCE ONCE IV 05/15/18 13:00 05/15/18 13:29 Metoclopramide HCl (Reglan) 5 mg EVERY 6 HOURS ORAL 05/13/18 18:00 06/12/18 17:59 05/15/18 05:09 Metoprolol Tartrate (Lopressor) 50 mg Q12HR ORAL 05/13/18 06:00 06/12/18 05:59 05/15/18 09:07 Mirtazapine (Remeron) 15 mg BEDTIME ORAL 05/13/18 21:00 06/12/18 20:59 05/14/18 21:01 Morphine Sulfate (Morphine Sulfate) 2 mg Q4H PRN IVP Moderate Pain (Pain Scale 4-6) 05/13/18 12:15 05/20/18 12:14 05/14/18 14:44 Morphine Sulfate (Morphine Sulfate) 4 mg Q4H PRN IVP Severe Pain (Pain Scale 7-10) 05/13/18 12:15 05/20/18 12:14 05/15/18 09:12 Ondansetron HCl (Zofran) 4 mg Q4H PRN IVP Nausea & Vomiting 05/13/18 12:15 06/12/18 12:14 05/15/18 05:04 Oseltamivir Phosphate (Tamiflu) 75 mg TWICE A DAY ORAL 05/13/18 15:06 05/18/18 15:05 05/15/18 09:06 Patient Own Medication (Patient's Own Med) 1 ea DAILY ORAL 05/13/18 20:00 06/12/18 19:59 05/15/18 09:05 Piperacillin Sod/ Tazobactam Sod 3.375 gm/Sodium Chloride 110 ml @ 27.5 mls/hr EVERY 8 HOURS IVPB 05/13/18 14:00 05/18/18 13:59 05/15/18 05:08 Trimethoprim/ Sulfamethoxazole (Bactrim-DS) 1 tab Q12HR ORAL 05/13/18 21:00 05/20/18 20:59 05/15/18 09:07 Vancomycin HCl (Vanco rx to dose) 1 ea DAILY PRN MISC Per rx protocol 05/13/18 09:45 06/12/18 09:44 Vancomycin HCl 1.25 gm/Dextrose 275 ml @ 183.333 mls/hr Q12HR IVPB 05/15/18 13:00 05/20/18 12:59 Vitamin D (Vitamin D) 1,000 intlu DAILY ORAL 05/13/18 09:00 06/12/18 08:59 05/15/18 09:06 Maite Mobley M.D. May 15, 2018 12:53
[2018-05-15] MEDS ORDERED: Vancomycin 1.25mg/D5W 275ml IVPB SCH ×2 (13:00)
[2018-05-15] MEDS ORDERED: Iron Sucrose 200 MG in NS 110 ML IV ONE (13:00)
[2018-05-15] MEDS: metroNIDAZOLE 500mg tab ORAL SCH ×2 (13:34→22:59)
[2018-05-15] MEDS: cefTRIAXone 1 GM in D5W 55 ML IVPB SCH (14:43)
[2018-05-15 15:25] LABS: APPEARANCE,URINE CLEAR; BILIRUBIN, URINE NEGATIVE (NEGATIVE); GLUCOSE, URINE (UA) NEGATIVE (NEGATIVE); KETONES,URINE NEGATIVE (NEGATIVE); LEUKOCYTE ESTERASE ,URINE NEGATIVE (NEGATIVE); NITRITE,URINE NEGATIVE (NEGATIVE); PH,URINE 6 (4.5-8.0); PROTEIN,URINE 1+ (NEGATIVE); UROBILINOGEN,URINE 1 MG/DL (0.0-1.0)
[2018-05-15 15:27] LABS: COLOR,URINE YELLOW
--- NOTE | 2018-05-15 15:38 | NUR ---
NURSE NOTES: Left a message for Dr Ulisses Dominguez about pt's new lab results (Na 133 and K 4.4), asked if he would like to continue with D5 1/2 NS 40mEq KCL at 75cc/hr. Waiting for call back.
[2018-05-15 16:00] VITALS: BP 107/53
--- NOTE | 2018-05-15 17:40 | NUR ---
NURSE NOTES: Got OK from Dr. Mobley to give PO meds at 1800. Pt still NPO for CT scan (with exception of PO meds).
[2018-05-15] MEDS: D5NS w/KCl 40mEq 1000ml 1,000 ML IV SCH (17:53)
--- NOTE | 2018-05-15 19:34 | Internal Med Progress Note ---
Subjective Date of Service: May 15, 2018 Physician Name Adam Padron Attending Physician Alberto Gtz MD Current Medications Medications (Trade) Dose Ordered Sig/Yessica Route PRN Reason Start Time Stop Time Status Last Admin Dose Admin Acetaminophen (Tylenol) 650 mg Q4H PRN ORAL Mild Pain/Temp > 100.5 05/13/18 12:00 06/12/18 11:59 05/15/18 05:08 Azithromycin (Zithromax) 1,200 mg ONCE A WEEK ORAL 05/13/18 18:00 05/20/18 17:59 05/13/18 18:49 Barium Sulfate (Readi-Cat 2) 450 ml NOW PRN ORAL Radiology Procedure 05/15/18 12:45 05/17/18 12:41 Ceftriaxone Sodium 1 gm/ Dextrose 55 ml @ 110 mls/hr Q24H IVPB 05/15/18 15:00 05/22/18 14:59 05/15/18 14:43 Dextrose/ Electrolytes 1,000 ml @ 75 mls/hr [id number] IV 05/15/18 17:00 06/14/18 16:59 05/15/18 17:53 Dolutegravir Sodium (Tivicay) 50 mg DAILY ORAL 05/15/18 09:00 06/14/18 08:59 05/15/18 09:05 Folic Acid (Folate) 1 mg DAILY ORAL 05/15/18 09:30 06/14/18 09:29 05/15/18 10:27 Heparin Sodium (Porcine) (Heparin 5000 units/ml) 5,000 units EVERY 8 HOURS SUBQ 05/13/18 14:00 06/12/18 13:59 05/15/18 13:40 Iopamidol (Isovue-300 100ml) 100 ml NOW PRN INJ Radiology Procedure 05/15/18 12:45 05/16/18 23:59 Iopamidol (Isovue-300 100ml) 100 ml NOW PRN INJ Radiology Procedure 05/15/18 12:45 05/17/18 12:41 Metoclopramide HCl (Reglan) 5 mg EVERY 6 HOURS ORAL 05/13/18 18:00 06/12/18 17:59 05/15/18 17:52 Metoprolol Tartrate (Lopressor) 50 mg Q12HR ORAL 05/13/18 06:00 06/12/18 05:59 05/15/18 09:07 Metronidazole (Flagyl) 500 mg Q8HR ORAL 05/15/18 14:00 05/22/18 13:59 05/15/18 13:34 Mirtazapine (Remeron) 15 mg BEDTIME ORAL 05/13/18 21:00 06/12/18 20:59 05/14/18 21:01 Morphine Sulfate (Morphine Sulfate) 2 mg Q4H PRN IVP Moderate Pain (Pain Scale 4-6) 05/13/18 12:15 05/20/18 12:14 05/14/18 14:44 Morphine Sulfate (Morphine Sulfate) 4 mg Q4H PRN IVP Severe Pain (Pain Scale 7-10) 05/13/18 12:15 05/20/18 12:14 05/15/18 14:43 Ondansetron HCl (Zofran) 4 mg Q4H PRN IVP Nausea & Vomiting 05/13/18 12:15 06/12/18 12:14 05/15/18 05:04 Oseltamivir Phosphate (Tamiflu) 75 mg TWICE A DAY ORAL 05/13/18 15:06 05/18/18 15:05 05/15/18 17:52 Patient Own Medication (Patient's Own Med) 1 ea DAILY ORAL 05/13/18 20:00 06/12/18 19:59 05/15/18 09:05 Trimethoprim/ Sulfamethoxazole (Bactrim-DS) 1 tab Q12HR ORAL 05/13/18 21:00 05/20/18 20:59 05/15/18 09:07 Vitamin D (Vitamin D) 1,000 intlu DAILY ORAL 05/13/18 09:00 06/12/18 08:59 05/15/18 09:06 Allergies: Coded Allergies: No Known Allergies (Unverified , 10/21/17) ROS Limited/Unobtainable: No Constitutional: Reports: no symptoms HEENT: Reports: no symptoms Cardiovascular: Reports: no symptoms Respiratory: Reports: no symptoms Gastrointestinal/Abdominal: Reports: no symptoms Genitourinary: Reports: no symptoms Neurologic/Psychiatric: Reports: no symptoms Subjective 37 YO M admitted with nausea, vomiting and diarrhea. Now hypotension. Cover for Int Med-Dr Gtz Objective Last Vital Signs Date Time Temp Pulse Resp B/P (MAP) Pulse Ox O2 Delivery O2 Flow Rate FiO2 05/15/18 16:00 103 05/15/18 16:00 98.3 19 107/53 (71) 99 05/15/18 16:00 Room Air Laboratory Tests Test 05/15/18 10:40 05/15/18 15:00 White Blood Count 6.7 K/UL (4.8-10.8) Red Blood Count 3.61 M/UL (4.70-6.10) L Hemoglobin 8.6 G/DL (14.2-18.0) L Hematocrit 27.4 % (42.0-52.0) L Mean Corpuscular Volume 76 FL (80-99) L Mean Corpuscular Hemoglobin 23.8 PG (27.0-31.0) L Mean Corpuscular Hemoglobin Concent 31.3 G/DL (32.0-36.0) L Red Cell Distribution Width 17.8 % (11.6-14.8) H Platelet Count 125 K/UL (150-450) L Mean Platelet Volume 5.4 FL (6.5-10.1) L Neutrophils (%) (Auto) 80.6 % (45.0-75.0) H Lymphocytes (%) (Auto) 9.0 % (20.0-45.0) L Monocytes (%) (Auto) 4.9 % (1.0-10.0) Eosinophils (%) (Auto) 5.1 % (0.0-3.0) H Basophils (%) (Auto) 0.5 % (0.0-2.0) Sodium Level 133 MMOL/L (136-145) L Potassium Level 4.4 MMOL/L (3.5-5.1) Chloride Level 102 MMOL/L (98-107) Carbon Dioxide Level 27 MMOL/L (21-32) Anion Gap 4 mmol/L (5-15) L Blood Urea Nitrogen 15 mg/dL (7-18) Creatinine 1.2 MG/DL (0.55-1.30) Estimat Glomerular Filtration Rate > 60 mL/min (>60) Glucose Level 105 MG/DL (74-106) Uric Acid 2.1 MG/DL (2.6-7.2) L Calcium Level 7.2 MG/DL (8.5-10.1) L Total Bilirubin 0.4 MG/DL (0.2-1.0) Aspartate Amino Transf (AST/SGOT) 13 U/L (15-37) L Alanine Aminotransferase (ALT/SGPT) 7 U/L (12-78) L Alkaline Phosphatase 58 U/L (46-116) Total Creatine Kinase 8 U/L (26-308) L Total Protein 5.7 G/DL (6.4-8.2) L Albumin 1.2 G/DL (3.4-5.0) L Globulin 4.5 g/dL Albumin/Globulin Ratio 0.3 (1.0-2.7) L Random Vancomycin Level 2.2 ug/mL Cytomegalovirus DNA Qual (PCR) Pending Urine Color Yellow Urine Appearance Clear Urine pH 6 (4.5-8.0) Urine Specific [place] 1.010 (1.005-1.035) Urine Protein 1+ (NEGATIVE) H Urine Glucose (UA) Negative (NEGATIVE) Urine Ketones Negative (NEGATIVE) Urine Blood Negative (NEGATIVE) Urine Nitrite Negative (NEGATIVE) Urine Bilirubin Negative (NEGATIVE) Urine Urobilinogen 1 MG/DL (0.0-1.0) H Urine Leukocyte Esterase Negative (NEGATIVE) Urine RBC 0-2 /HPF (0 - 0) H Urine WBC 0-2 /HPF (0 - 0) Urine Squamous Epithelial Cells Occasional /LPF Urine Bacteria Occasional /HPF (NONE) Urine Eosinophils None seen (NONE SEEN) Urine Random Creatinine Pending Urine Random Microalbumin Pending Urine Random Sodium 56 mmol/L (20-110) Urine Creatinine 70.8 MG/DL (30.0-125.0) Urine Microalbumin/Creatinine Ratio Pending Urine Potassium Timed 19 mmol/L (12-62) Histoplasma Antigen Pending Microbiology Date/Time Source Procedure Growth Status 05/13/18 10:15 Blood Blood Culture - Preliminary NO GROWTH AFTER 24 HOURS Resulted 05/13/18 10:00 Blood Blood Culture - Preliminary NO GROWTH AFTER 24 HOURS Resulted 05/12/18 21:05 Blood Blood Culture - Preliminary NO GROWTH AFTER 48 HOURS Resulted 05/12/18 20:50 Blood Blood Culture - Preliminary NO GROWTH AFTER 48 HOURS Resulted 05/15/18 14:10 Nasopharynx Influenza Types A,B Antigen (ZHANE) - Final Complete 05/14/18 03:30 Stool Stool Culture - Preliminary NORMAL FECAL MINNIE. Resulted 05/13/18 04:00 Stool Stool Culture - Final NO SALMONELLA,SHIGELLA,CAMPYLOBACTER,... Complete 05/13/18 04:00 Stool Clostridium difficile Toxin Assay - Final Complete 05/12/18 20:50 Urine,Clean Catch Urine Culture - Preliminary Mixed Gram Positive Organism Resulted Intake and Output 05/14/18 05/15/18 19:00 07:00 Intake Total 855.0 ml 977.5 ml Output Total 700 ml 1150 ml Balance 155.0 ml -172.5 ml Intake Oral 500 ml IV Total 855.0 ml 477.5 ml Output Urine Total 700 ml 1150 ml # Voids 4 4 # Bowel Movements 7 7 Objective PHYSICAL EXAMINATION: VITAL SIGNS: Temperature 99.7, respirations 24, pulse 128, and blood pressure 96/59. GENERAL: The patient is thin-appearing male, in no apparent distress. HEENT: Eyes, pupils equal and responsive to light and accommodation. Extraocular movements intact. NECK: Supple without lymphadenopathy. CHEST: Lungs are clear to auscultation bilaterally without wheezes or rales. CARDIOVASCULAR: Regular rhythm and rate. S1 and S2 are normal without murmurs, rubs, or gallops. ABDOMEN: Soft and nondistended with decreased bowel sounds. No evidence of hepatosplenomegaly. Currently, no rebound or guarding noted. EXTREMITIES: Negative for clubbing, cyanosis, or edema. RECTAL: Refused. GENITAL: Refused. NEUROLOGIC: Cranial nerves II through XII are grossly intact without focal deficits. Motor strength is 5/5 bilaterally intact. Deep tendon reflexes are 2+, plantar. Assessment/Plan Assessment/Plan ASSESSMENT: This is a 37-year-old male: 1. Nausea with vomiting. 2. Diarrhea. 3. Vertigo. 4. Hypotension. 5. HIV. 6. Kaposi sarcoma. 7. Castleman disease. TREATMENT: 1. Nausea/vomiting/diarrhea. Gastroenterology consultation with Dr. Michael Gradne. Stool cultures including Clostridium difficile, stool culture, and ova and parasite are pending. T he patient has been started empirically on Zosyn. An infectious disease consultation has been obtained with Dr Mobley. We will follow recommendations of Gastroenterology and Infectious Disease. 2. Hypotension. This may be secondary to sepsis. Continue Zosyn as above. 3. Kaposi sarcoma. The patient is status post chemotherapy. 4. Castleman disease. 5. Antibiotics=ceftriaxone and flagyl per ID. 6. continue tamiflu Adam Padron MD May 15, 2018 19:34
--- NOTE | 2018-05-15 19:47 | NUR ---
HAND-OFF: Report given to TRES Funez. Pt in stable condition.
--- NOTE | 2018-05-15 19:50 | NUR ---
NURSE NOTES: RECIEVED PT FROM TRES RESTREPO. PT IS X4, ABLE TO FOLLOW COMMANDS, AMBULATORY. ON RA, SATING WELL. 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 PT IS NPO FOR CT SCAN DUE TONIGHT. SKIN IS CLEAN, DRY. HALEIGH RUNNING D5NS W/ 40 MEQ @ 75; ASYMPTOMATIC. LABS OK PER RN, FLUIDS ADJUSTED IN AM SHIFT. PT HAS BEEN NONCOMPLIANT W/ GETTING IN AND OUT OF BED WITH ASSIST. ROOM IS CLOSE TO NURSES STATION TO KEEP WATCH, BED ALARM IS ON, SIDE RAILS X3, BUT REFUSING HELP. HAS DIARRHEA, AWARE, NO NEW ORDERS, BUT CAUSING PT TO RUN TO BATHROOM. BEDSIDE COMMODE ORDERED. WILL CONTINUE TO MONITOR AND FOLLOW PLAN OF CARE.
[2018-05-15 20:00] VITALS: BP 116/58
[2018-05-15] MEDS: Morphine Sulfate 2mg/ml Inj(IV/IM USE ONLY) IVP PRN (23:02)
[2018-05-16] VITALS: BP 113/67
[2018-05-16 04:00] VITALS: BP 104/54
[2018-05-16 04:36] LABS: BASOPHILS % (AUTO) 0.2 % (0.0-2.0); EOSINOPHILS % (AUTO) 4.3 % (0.0-3.0); HEMATOCRIT 24.9 % (42.0-52.0); LYMPHOCYTES % (AUTO) 12.7 % (20.0-45.0); MEAN CORPUSCULAR VOLUME 76 FL (80-99); MONOCYTES % (AUTO) 7.1 % (1.0-10.0); NEUTROPHILS % (AUTO) 75.7 % (45.0-75.0); PLATELET COUNT 126 K/UL (150-450); RED CELL DISTRIBUTION WIDTH 18.3 % (11.6-14.8); WHITE BLOOD COUNT 6.1 K/UL (4.8-10.8)
[2018-05-16] MEDS: metroNIDAZOLE 500mg tab ORAL SCH ×3 (05:05→21:27)
[2018-05-16] MEDS: Heparin 5000 units/ml inj SUBQ SCH ×3 (05:05→21:28)
[2018-05-16] MEDS: Metoclopramide 10mg/10ml Liq ORAL SCH (05:05)
[2018-05-16 05:08] LABS: ALANINE AMINOTRANSFERASE 9 U/L (12-78); ALBUMIN 1.1 G/DL (3.4-5.0); ALBUMIN/GLOBULIN RATIO 0.2 (1.0-2.7); ALKALINE PHOSPHATASE 59 U/L (46-116); ANION GAP 6 mmol/L (5-15); ASPARTATE AMINO TRANSFERASE 21 U/L (15-37); BILIRUBIN,TOTAL 0.3 MG/DL (0.2-1.0); BLOOD UREA NITROGEN 13 mg/dL (7-18); CALCIUM 7.2 MG/DL (8.5-10.1); CARBON DIOXIDE 25 MMOL/L (21-32); CHLORIDE 105 MMOL/L (98-107); CREATININE 1.1 MG/DL (0.55-1.30); PHOSPHORUS 1.7 MG/DL (2.5-4.9); POTASSIUM 4.5 MMOL/L (3.5-5.1); SODIUM 136 MMOL/L (136-145)
[2018-05-16] MEDS: D5NS w/KCl 40mEq 1000ml 1,000 ML IV SCH ×3 (05:19→23:57)
[2018-05-16] MEDS: Morphine Sulfate 2mg/ml Inj(IV/IM USE ONLY) IVP PRN ×3 (05:20→21:29)
--- NOTE | 2018-05-16 07:15 | NUR ---
HAND-OFF: Report given to TRES AJ. PT RESTING IN BED, STABLE.
[2018-05-16 08:00] VITALS: BP 90/46
--- NOTE | 2018-05-16 08:15 | NUR ---
NURSE NOTES: received pt in the bed, awake, alert, oriented, vital signs stable, no co pain, no SOB, pt on RA o2 sat98%, pt NPO, for CT abdomen, use urinal, skin warm and dry, IV site on left upper arm, patten, bed in low position, call light within reach.
--- NOTE | 2018-05-16 08:17 | Infectious Diseases Prog Note ---
Assessment/Plan Assessment/Plan Abx: IV Vancomycin 05/12- Zosyn 05/13- Cefepime x1 05/12 Assessment: SEvere sepsis Fever- r/o opportunistic infection (ie CMV, MAC, recurrence Castleman) -Bcx NTD -CXR: No acute findings -Inf (-) Fever - resolved No leukocytosis Nausea/vomiting/diarrhea -Cdiff neg -stool cx normal phi HIV on ARV (dx 1999)- on Truvada and Dolutegravir, now AIDS -04/2018 HIV VL p, Cd4 64 (9.1%); ?decrease due to non complinace -10/2017 HIV VL ND, CD4 87 (12.4%) -09/01/17 - CD4 192 and VL - ND (Out Side labs) -no hx of resistance ; previously on Truvada, Reyataz and Norvir -Has been above 200 in the past. Came down with Chemo REENA, improving Microcytic anemia Thrombocytopenia hx pancreatitis 10/2017 - 10/22/17- CT show reticular opacity and significant lymphadenopathy 10/23/17 - CT abd/pel Lymphadenopathy, Enlarged Pancrease mild B/L hydronephrosis -Blasto, Histo, CrAg neg 11/21/16 - Quantiferon negative (Out Side lab) hx of Kaposi's sarcoma/Castleman's disease s/p chemotherapy - S/P Chemo ending 07/17/17 Last PET 08/12/17 - show stable/not worsening lymphadenopathy Hep C+ hx of Chronic Hep B, VL <15 09/01/17 hx of DVT Plan: - Continue Ceftriaxone #2and Flagyl #2 -05/15/18 SP empiric IV Vancomycin #4 and switch empiric Zosyn #3 to Ceftriaxone and Flagyl -05/16/18 SP Tamiflu #4 - 05/12 SP Cefepime x1 -CT head/chest/abd/p w/ given ongoing fever and immunocompromise state to look for evidence of OI -f/u cx -Monitor CBC/CMP, temperatures -f/u HIV VL, CrAg, AFB bcx, CMV PCR -aspiration precautions -GI f/u -parasite stool studies -Histoplasma ag urine, COcci ab Thank you for this consultation. Will continue to follow along with you. Subjective Allergies: Coded Allergies: No Known Allergies (Unverified , 10/21/17) Subjective Patient afebrile Sattign well on RA No leukocytosis Objective Vital Signs Last 24 Hour Vital Signs Date Time Temp Pulse Resp B/P (MAP) Pulse Ox O2 Delivery O2 Flow Rate FiO2 05/16/18 08:00 Room Air 05/16/18 05:50 97.7 05/16/18 04:00 Room Air 05/16/18 04:00 97.4 123 20 104/54 (71) 100 05/16/18 04:00 114 05/16/18 00:00 104 05/16/18 00:00 97.7 109 20 113/67 (82) 98 05/16/18 00:00 Room Air 05/15/18 20:31 111 116/60 05/15/18 20:00 122 05/15/18 20:00 Room Air 05/15/18 20:00 98.0 111 20 116/58 (77) 98 05/15/18 16:00 103 05/15/18 16:00 98.3 109 19 107/53 (71) 99 05/15/18 16:00 Room Air 05/15/18 12:00 Room Air 05/15/18 12:00 98.1 106 19 96/58 (71) 99 05/15/18 11:42 108 05/15/18 09:07 108 94/58 Height (Feet): 5 Height (Inches): 11.00 Weight (Pounds): 132 Objective General: NAD Head: NCAT PERRL, EOMI Respiratory: CTAB Cardiovascular: RRR, S1, S2 Gastrointestinal: Soft, NT, ND, + BS Neurologic: alert, oriented x3, responsive Microbiology Date/Time Source Procedure Growth Status 05/13/18 10:15 Blood Blood Culture - Preliminary NO GROWTH AFTER 48 HOURS Resulted 05/13/18 10:00 Blood Blood Culture - Preliminary NO GROWTH AFTER 48 HOURS Resulted 05/15/18 14:10 Nasopharynx Influenza Types A,B Antigen (ZHANE) - Final Complete 05/14/18 03:30 Stool Stool Culture - Preliminary NORMAL FECAL PHI. Resulted Laboratory Tests Test 05/15/18 10:40 05/15/18 15:00 05/16/18 03:47 White Blood Count 6.7 K/UL (4.8-10.8) 6.1 K/UL (4.8-10.8) Red Blood Count 3.61 M/UL (4.70-6.10) L 3.30 M/UL (4.70-6.10) L Hemoglobin 8.6 G/DL (14.2-18.0) L 8.0 G/DL (14.2-18.0) L Hematocrit 27.4 % (42.0-52.0) L 24.9 % (42.0-52.0) L Mean Corpuscular Volume 76 FL (80-99) L 76 FL (80-99) L Mean Corpuscular Hemoglobin 23.8 PG (27.0-31.0) L 24.4 PG (27.0-31.0) L Mean Corpuscular Hemoglobin Concent 31.3 G/DL (32.0-36.0) L 32.3 G/DL (32.0-36.0) Red Cell Distribution Width 17.8 % (11.6-14.8) H 18.3 % (11.6-14.8) H Platelet Count 125 K/UL (150-450) L 126 K/UL (150-450) L Mean Platelet Volume 5.4 FL (6.5-10.1) L 5.4 FL (6.5-10.1) L Neutrophils (%) (Auto) 80.6 % (45.0-75.0) H 75.7 % (45.0-75.0) H Lymphocytes (%) (Auto) 9.0 % (20.0-45.0) L 12.7 % (20.0-45.0) L Monocytes (%) (Auto) 4.9 % (1.0-10.0) 7.1 % (1.0-10.0) Eosinophils (%) (Auto) 5.1 % (0.0-3.0) H 4.3 % (0.0-3.0) H Basophils (%) (Auto) 0.5 % (0.0-2.0) 0.2 % (0.0-2.0) Sodium Level 133 MMOL/L (136-145) L 136 MMOL/L (136-145) Potassium Level 4.4 MMOL/L (3.5-5.1) 4.5 MMOL/L (3.5-5.1) Chloride Level 102 MMOL/L (98-107) 105 MMOL/L (98-107) Carbon Dioxide Level 27 MMOL/L (21-32) 25 MMOL/L (21-32) Anion Gap 4 mmol/L (5-15) L 6 mmol/L (5-15) Blood Urea Nitrogen 15 mg/dL (7-18) 13 mg/dL (7-18) Creatinine 1.2 MG/DL (0.55-1.30) 1.1 MG/DL (0.55-1.30) Estimat Glomerular Filtration Rate > 60 mL/min (>60) > 60 mL/min (>60) Glucose Level 105 MG/DL (74-106) 104 MG/DL (74-106) Uric Acid 2.1 MG/DL (2.6-7.2) L Calcium Level 7.2 MG/DL (8.5-10.1) L 7.2 MG/DL (8.5-10.1) L Total Bilirubin 0.4 MG/DL (0.2-1.0) 0.3 MG/DL (0.2-1.0) Aspartate Amino Transf (AST/SGOT) 13 U/L (15-37) L 21 U/L (15-37) Alanine Aminotransferase (ALT/SGPT) 7 U/L (12-78) L 9 U/L (12-78) L Alkaline Phosphatase 58 U/L (46-116) 59 U/L (46-116) Total Creatine Kinase 8 U/L (26-308) L Total Protein 5.7 G/DL (6.4-8.2) L 5.7 G/DL (6.4-8.2) L Albumin 1.2 G/DL (3.4-5.0) L 1.1 G/DL (3.4-5.0) L Globulin 4.5 g/dL 4.6 g/dL Albumin/Globulin Ratio 0.3 (1.0-2.7) L 0.2 (1.0-2.7) L Random Vancomycin Level 2.2 ug/mL Cytomegalovirus DNA Qual (PCR) Pending Urine Color Yellow Urine Appearance Clear Urine pH 6 (4.5-8.0) Urine Specific [place] 1.010 (1.005-1.035) Urine Protein 1+ (NEGATIVE) H Urine Glucose (UA) Negative (NEGATIVE) Urine Ketones Negative (NEGATIVE) Urine Blood Negative (NEGATIVE) Urine Nitrite Negative (NEGATIVE) Urine Bilirubin Negative (NEGATIVE) Urine Urobilinogen 1 MG/DL (0.0-1.0) H Urine Leukocyte Esterase Negative (NEGATIVE) Urine RBC 0-2 /HPF (0 - 0) H Urine WBC 0-2 /HPF (0 - 0) Urine Squamous Epithelial Cells Occasional /LPF Urine Bacteria Occasional /HPF (NONE) Urine Eosinophils None seen (NONE SEEN) Urine Random Creatinine Pending Urine Random Microalbumin Pending Urine Random Sodium 56 mmol/L (20-110) Urine Creatinine 70.8 MG/DL (30.0-125.0) Urine Microalbumin/Creatinine Ratio Pending Urine Potassium Timed 19 mmol/L (12-62) Histoplasma Antigen Pending Erythrocyte Sedimentation Rate 120 MM/HR (0-15) H Phosphorus Level 1.7 MG/DL (2.5-4.9) L Magnesium Level 1.9 MG/DL (1.8-2.4) C-Reactive Protein, Quantitative 25.7 mg/dL (0.00-0.90) H Coccidioides Antibody (Comp Fix) Pending Cytomegalovirus IgG Antibody Pending Cytomegalovirus IgM Antibody Pending Hepatitis A IgM Antibody Pending Hepatitis B Core IgM Antibody Pending Hepatitis B DNA (IU/mL) Pending Current Medications Medications (Trade) Dose Ordered Sig/Yessica Route PRN Reason Start Time Stop Time Status Last Admin Dose Admin Acetaminophen (Tylenol) 650 mg Q4H PRN ORAL Mild Pain/Temp > 100.5 05/13/18 12:00 06/12/18 11:59 05/15/18 05:08 Azithromycin (Zithromax) 1,200 mg ONCE A WEEK ORAL 05/13/18 18:00 05/20/18 17:59 05/13/18 18:49 Barium Sulfate (Readi-Cat 2) 450 ml NOW PRN ORAL Radiology Procedure 05/15/18 12:45 05/17/18 12:41 Ceftriaxone Sodium 1 gm/ Dextrose 55 ml @ 110 mls/hr Q24H IVPB 05/15/18 15:00 05/22/18 14:59 05/15/18 14:43 Dextrose/ Electrolytes 1,000 ml @ 75 mls/hr [id number] IV 05/15/18 17:00 06/14/18 16:59 05/16/18 05:19 Dolutegravir Sodium (Tivicay) 50 mg DAILY ORAL 05/15/18 09:00 06/14/18 08:59 05/15/18 09:05 Folic Acid (Folate) 1 mg DAILY ORAL 05/15/18 09:30 06/14/18 09:29 05/15/18 10:27 Heparin Sodium (Porcine) (Heparin 5000 units/ml) 5,000 units EVERY 8 HOURS SUBQ 05/13/18 14:00 06/12/18 13:59 05/15/18 13:40 Iopamidol (Isovue-300 100ml) 100 ml NOW PRN INJ Radiology Procedure 05/15/18 12:45 05/16/18 23:59 Iopamidol (Isovue-300 100ml) 100 ml NOW PRN INJ Radiology Procedure 05/15/18 12:45 05/17/18 12:41 Metoclopramide HCl (Reglan) 5 mg EVERY 6 HOURS ORAL 05/13/18 18:00 06/12/18 17:59 05/16/18 05:05 Metoprolol Tartrate (Lopressor) 50 mg Q12HR ORAL 05/13/18 06:00 06/12/18 05:59 05/15/18 20:31 Metronidazole (Flagyl) 500 mg Q8HR ORAL 05/15/18 14:00 05/22/18 13:59 05/16/18 05:05 Mirtazapine (Remeron) 15 mg BEDTIME ORAL 05/13/18 21:00 06/12/18 20:59 05/15/18 20:31 Morphine Sulfate (Morphine Sulfate) 2 mg Q4H PRN IVP Moderate Pain (Pain Scale 4-6) 05/13/18 12:15 05/20/18 12:14 05/16/18 05:20 Morphine Sulfate (Morphine Sulfate) 4 mg Q4H PRN IVP Severe Pain (Pain Scale 7-10) 05/13/18 12:15 05/20/18 12:14 05/15/18 14:43 Ondansetron HCl (Zofran) 4 mg Q4H PRN IVP Nausea & Vomiting 05/13/18 12:15 06/12/18 12:14 05/15/18 05:04 Oseltamivir Phosphate (Tamiflu) 75 mg TWICE A DAY ORAL 05/13/18 15:06 05/18/18 15:05 05/15/18 17:52 Patient Own Medication (Patient's Own Med) 1 ea DAILY ORAL 05/13/18 20:00 06/12/18 19:59 05/15/18 09:05 Trimethoprim/ Sulfamethoxazole (Bactrim-DS) 1 tab Q12HR ORAL 05/13/18 21:00 05/20/18 20:59 05/15/18 20:31 Vitamin D (Vitamin D) 1,000 intlu DAILY ORAL 05/13/18 09:00 06/12/18 08:59 05/15/18 09:06 Sterling Ortiz MD May 16, 2018 08:17
[2018-05-16] MEDS: Vitamin D 1000 IU Tab ORAL SCH (08:30)
[2018-05-16] MEDS: Bactrim-DS 1 tab ORAL SCH ×2 (08:31→20:44)
[2018-05-16] MEDS: Patient's Own Med - Truvada 200/300mg ORAL SCH (08:31)
[2018-05-16] MEDS: Dolutegravir Sodium 50mg tab ORAL SCH (08:31)
[2018-05-16] MEDS: Metoprolol Tartrate 50mg tab ORAL SCH ×2 (09:00→20:44)
--- NOTE | 2018-05-16 10:00 | NUR ---
NURSE NOTES: Doctor Harjinder notified patient having large Diarrhea,negative C diff,went down fo Ct scan,with orders
--- NOTE | 2018-05-16 10:12 | General Progress Note ---
Assessment/Plan Problem List: (1) HIV disease ICD Codes: B20 - Human immunodeficiency virus [HIV] disease SNOMED: 56496468 (2) Kaposi disease ICD Codes: Q82.1 - Xeroderma pigmentosum SNOMED: 84295858 (3) Cyclic vomiting syndrome ICD Codes: G43.A0 - Cyclical vomiting, not intractable SNOMED: 14491199 (4) Nausea & vomiting ICD Codes: R11.2 - Nausea with vomiting, unspecified SNOMED: 75690452 (5) Diarrhea ICD Codes: R19.7 - Diarrhea, unspecified SNOMED: 67188581 Assessment/Plan Recent history of unremarkable endoscopy and colonoscopy Marijuana use Kaposi Disease s/p chemotherapy Microcytic anemia C. difficile is negative stool culture negative CD4 count of 64, will check for Cryptosporidium hold Venofer given elevated ferritin levels Advance diet as tolerated Zofran as needed OB stool r/o GI bleed monitor H&H, prn transfusions Imodium prn ppi IV and p.o. hydration plus electrolyte correction fu labs Subjective ROS Limited/Unobtainable: No Allergies: Coded Allergies: No Known Allergies (Unverified , 10/21/17) Objective Last 24 Hour Vital Signs Date Time Temp Pulse Resp B/P (MAP) Pulse Ox O2 Delivery O2 Flow Rate FiO2 05/16/18 08:00 Room Air 05/16/18 05:50 97.7 05/16/18 04:00 Room Air 05/16/18 04:00 97.4 123 20 104/54 (71) 100 05/16/18 04:00 114 05/16/18 00:00 104 05/16/18 00:00 97.7 109 20 113/67 (82) 98 05/16/18 00:00 Room Air 05/15/18 20:31 111 116/60 05/15/18 20:00 122 05/15/18 20:00 Room Air 05/15/18 20:00 98.0 111 20 116/58 (77) 98 05/15/18 16:00 103 05/15/18 16:00 98.3 109 19 107/53 (71) 99 05/15/18 16:00 Room Air 05/15/18 12:00 Room Air 05/15/18 12:00 98.1 106 19 96/58 (71) 99 05/15/18 11:42 108 Intake and Output 05/15/18 05/16/18 19:00 07:00 Intake Total 360.42 ml 1065 ml Output Total 300 ml 400 ml Balance 60.42 ml 665 ml Intake Oral 240 ml IV Total 360.42 ml 825 ml Output Urine Total 300 ml 400 ml # Voids 6 2 # Bowel Movements 12 5 Laboratory Tests 05/15/18 10:40: White Blood Count 6.7, Red Blood Count 3.61L, Hemoglobin 8.6L, Hematocrit 27.4L , Mean Corpuscular Volume 76L, Mean Corpuscular Hemoglobin 23.8L, Mean Corpuscular Hemoglobin Concent 31.3L, Red Cell Distribution Width 17.8H, Platelet Count 125L, Mean Platelet Volume 5.4L, Neutrophils (%) (Auto) 80.6H, Lymphocytes (%) (Auto) 9.0L, Monocytes (%) (Auto) 4.9, Eosinophils (%) (Auto) 5.1H, Basophils (%) (Auto) 0.5, Sodium Level 133L, Potassium Level 4.4, Chloride Level 102, Carbon Dioxide Level 27, Anion Gap 4L, Blood Urea Nitrogen 15, Creatinine 1.2, Estimat Glomerular Filtration Rate > 60, Glucose Level 105, Uric Acid 2.1L, Calcium Level 7.2L, Total Bilirubin 0.4, Aspartate Amino Transf (AST/SGOT) 13L, Alanine Aminotransferase (ALT/SGPT) 7L, Alkaline Phosphatase 58 , Total Creatine Kinase 8L, Total Protein 5.7L, Albumin 1.2L, Globulin 4.5, Albumin/Globulin Ratio 0.3L, Random Vancomycin Level 2.2, Cytomegalovirus DNA Qual (PCR) [Pending] 05/15/18 15:00: Urine Color Yellow, Urine Appearance Clear, Urine pH 6, Urine Specific [place] 1.010, Urine Protein 1+H, Urine Glucose (UA) Negative, Urine Ketones Negative, Urine Blood Negative, Urine Nitrite Negative, Urine Bilirubin Negative, Urine Urobilinogen 1H, Urine Leukocyte Esterase Negative, Urine RBC 0-2H, Urine WBC 0- 2, Urine Squamous Epithelial Cells Occasional, Urine Bacteria Occasional, Urine Eosinophils None seen, Urine Random Creatinine [Pending], Urine Random Microalbumin [Pending], Urine Random Sodium 56, Urine Creatinine 70.8, Urine Microalbumin/Creatinine Ratio [Pending], Urine Potassium Timed 19, Histoplasma Antigen [Pending] 05/16/18 03:47: White Blood Count 6.1, Red Blood Count 3.30L, Hemoglobin 8.0L, Hematocrit 24.9L , Mean Corpuscular Volume 76L, Mean Corpuscular Hemoglobin 24.4L, Mean Corpuscular Hemoglobin Concent 32.3, Red Cell Distribution Width 18.3H, Platelet Count 126L, Mean Platelet Volume 5.4L, Neutrophils (%) (Auto) 75.7H, Lymphocytes (%) (Auto) 12.7L, Monocytes (%) (Auto) 7.1, Eosinophils (%) (Auto) 4.3H, Basophils (%) (Auto) 0.2, Sodium Level 136, Potassium Level 4.5, Chloride Level 105, Carbon Dioxide Level 25, Anion Gap 6, Blood Urea Nitrogen 13, Creatinine 1.1, Estimat Glomerular Filtration Rate > 60, Glucose Level 104, Calcium Level 7.2L, Total Bilirubin 0.3, Aspartate Amino Transf (AST/SGOT) 21, Alanine Aminotransferase (ALT/SGPT) 9L, Alkaline Phosphatase 59, Total Protein 5.7L, Albumin 1.1L, Globulin 4.6, Albumin/Globulin Ratio 0.2L, Erythrocyte Sedimentation Rate 120H, Phosphorus Level 1.7L, Magnesium Level 1.9, C-Reactive Protein, Quantitative 25.7H, Coccidioides Antibody (Comp Fix) [Pending], Cytomegalovirus IgG Antibody [Pending], Cytomegalovirus IgM Antibody [Pending], Hepatitis A IgM Antibody [Pending], Hepatitis B Core IgM Antibody [Pending], Hepatitis B DNA (IU/mL) [Pending] Height (Feet): 5 Height (Inches): 11.00 Weight (Pounds): 132 General Appearance: no apparent distress EENT: normal ENT inspection Neck: supple Cardiovascular: normal rate Respiratory/Chest: lungs clear Abdomen: soft, hypoactive bowel sounds Extremities: non-tender Michael Grande MD May 16, 2018 10:12
--- NOTE | 2018-05-16 10:38 | Diagnostic Imaging Report ---
EXAM: CT Head Without Intravenous Contrast CLINICAL HISTORY: INFECT TECHNIQUE: Axial computed tomography images of the head/brain without intravenous contrast. Coronal and sagittal images were obtained and reviewed. CTDI is 70 mGy and DLP is 1304 mGy-cm. One or more of the following dose reduction techniques were used: automated exposure control, adjustment of the mA and/or kV according to patient size, use of iterative reconstruction technique. COMPARISON: No relevant prior studies available. FINDINGS: Brain: Unremarkable. No evidence of acute intracranial hemorrhage. No significant white matter disease. No edema. No mass effect or midline shift. Ventricles: Unremarkable. No ventriculomegaly. Bones/joints: Unremarkable. No depressed skull fracture. Soft tissues: Unremarkable. Sinuses: Opacification of the right maxillary sinus, right frontal sinus, and mucosal thickening throughout the ethmoid air cells and left maxillary sinus, suggestive of sinusitis. Mastoid air cells: Partial opacification of the inferior posterior aspect of the left mastoid air cells, suggesting small left mastoid effusion. IMPRESSION: 1. Opacification of the right maxillary sinus, right frontal sinus, and mucosal thickening throughout the ethmoid air cells and left maxillary sinus, suggestive of sinusitis. 2. Partial opacification of the inferior posterior aspect of the left mastoid air cells, suggesting small left mastoid effusion.
--- NOTE | 2018-05-16 10:43 | NUR ---
RD ASSESSMENT & RECOMMENDATIONS SEE CARE ACTIVITY FOR COMPLETE ASSESSMENT DAILY ESTIMATED NEEDS: Needs based on CA, sepsis, HIV/ 61kg 30-35 kcals/kg 1773-4249 total kcals 1-2 g protein/kg 61-122 g total protein 25-30 mL/kg 4098-1908 total fluid mLs NUTRITION DIAGNOSIS: * Increased kcal/prot intake needs R/T catabolic dx and underweight status as evidenced by dx of Kaposi's sarcoma, h/o HIV, low BMI per guidelines. CURRENT DIET:CARDIAC PO DIET RECOMMENDATIONS: Liberalized REGULAR diet + Ensure Enlive TID @ all meals ADDITIONAL RECOMMENDATIONS: * Calibrated bedscale wt or standing wt for accurate CBW * Monitor lytes daily, replete as needed (persistent diarrhea) -> phos low * MVI x 1 as supplement * Monitor PO intake and tolerance c/o N/V/D upon adm
--- NOTE | 2018-05-16 10:59 | Diagnostic Imaging Report ---
EXAM: CT Chest Without Intravenous Contrast CLINICAL HISTORY: INFECT TECHNIQUE: Axial computed tomography images of the chest without intravenous contrast. CTDI is 21 mGy and DLP is 814 mGy-cm. One or more of the following dose reduction techniques were used: automated exposure control, adjustment of the mA and/or kV according to patient size, use of iterative reconstruction technique. Coronal and sagittal reformatted images were created and reviewed. COMPARISON: CT chest dated 10/22/17 FINDINGS: Lungs: Kasie-bronchovascular groundglass haziness and nodularity in the right lower lobe. Scattered paraseptal emphysematous changes, predominantly in the upper lung zones. Pleural space: Small layering right pleural effusion with fluid in the minor fissure. No pneumothorax. Heart: Unremarkable. No cardiomegaly. No significant pericardial effusion. Bones/joints: Unremarkable. No acute fracture. No dislocation. Soft tissues: Unremarkable. Vasculature: Unremarkable. No thoracic aortic aneurysm. Lymph nodes: Mediastinal, axillary, and supraclavicular lymphadenopathy, enlarged compared to the prior CT of the chest. Largest left axillary node measures 3.4 x 2.4 cm (series 3 image 23). Largest supraclavicular node on the left measures 3.8 x 2.8 cm (series 3 image 10). Largest mediastinal nodes include a 2.2 x 1.6 cm pretracheal node (series 3 image 17) and a 2.3 x 1.6 cm subcarinal node (series 3 image 32). IMPRESSION: 1. Mediastinal, axillary, and supraclavicular lymphadenopathy, enlarged compared to the prior CT of the chest. Largest left axillary node measures 3.4 x 2.4 cm. Largest supraclavicular node on the left measures 3.8 x 2.8 cm. Largest mediastinal nodes include a 2.2 x 1.6 cm pretracheal node and a 2.3 x 1.6 cm subcarinal node. 2. Small layering right pleural effusion with fluid in the minor fissure. 3. Kasie-bronchovascular groundglass haziness and nodularity in the right lower lobe. 4. Scattered paraseptal emphysematous changes, predominantly in the upper lung zones. EXAM: CT Abdomen and Pelvis Without Intravenous Contrast CLINICAL HISTORY: INFECT TECHNIQUE: Axial computed tomography images of the abdomen and pelvis without intravenous contrast. CTDI is 12 mGy and DLP is 670 mGy-cm. One or more of the following dose reduction techniques were used: automated exposure control, adjustment of the mA and/or kV according to patient size, use of iterative reconstruction technique. Coronal and sagittal reformatted images were created and reviewed. COMPARISON: CT chest dated 10/22/17 FINDINGS: Lung bases: Unremarkable. No consolidation. No effusions. ABDOMEN: Liver: Unremarkable. Gallbladder and bile ducts: Cholelithiasis without gallbladder wall thickening or ductal dilatation. Pancreas: Unremarkable. No ductal dilation. Spleen: Scattered subcentimeter hypodensities throughout the spleen, possibly tiny simple cysts. Adrenals: Unremarkable. No mass. Kidneys and ureters: Subcentimeter simple-appearing left renal cortical cysts. No obstructing stones. No hydronephrosis. Stomach and bowel: Mild fluid distention and air-fluid levels throughout the colon, which may suggest mild colitis and/or diarrheal disease. No evidence of bowel obstruction. PELVIS: Appendix: No findings to suggest acute appendicitis. Bladder: Mild urinary bladder wall thickening, most likely related to underdistention. No stones. Reproductive: The prostate gland and seminal vesicles appear unremarkable. ABDOMEN and PELVIS: Intraperitoneal space: See below. Bones/joints: No acute fracture. No dislocation. Soft tissues: Diffuse edema and haziness throughout the mesenteric root. Vasculature: Unremarkable. No abdominal aortic aneurysm. Lymph nodes: Mesenteric, retroperitoneal, and inguinal lymphadenopathy. Largest retroperitoneal node measures 3.1 x 2.5 x 2.0 cm to left of the IVC (series 8 image 56, series 10 image 23). Largest left inguinal left node measures 2.9 x 2.5 cm (series 8 image 90). IMPRESSION: 1. Diffuse edema and haziness throughout the mesenteric root. Not significantly changed compared to the visualized portions of the mesenteric root in the prior CT of the chest dated 10/22/17. 2. Mesenteric, retroperitoneal, and inguinal lymphadenopathy. Largest retroperitoneal node measures 3.1 x 2.5 x 2.0 cm to left of the IVC (series 8 image 56, series 10 image 23). Largest left inguinal left node measures 2.9 x 2.5 cm (series 8 image 90). 3. Mild fluid distention and air-fluid levels throughout the colon, which may suggest mild colitis and/or diarrheal disease. No evidence of bowel obstruction. 4. Cholelithiasis without gallbladder wall thickening or ductal dilatation. 5. Scattered subcentimeter hypodensities throughout the spleen, possibly tiny simple cysts. 6. Subcentimeter simple-appearing left renal cortical cysts. 7. Mild urinary bladder wall thickening, most likely related to underdistention.
[2018-05-16 12:00] VITALS: BP 94/51
[2018-05-16] MEDS: Loperamide 2mg cap ORAL PRN ×3 (12:14→21:28)
--- NOTE | 2018-05-16 12:22 | Pulmonology Progress Note ---
Assessment/Plan Problems: (1) Septic shock (2) ATN (acute tubular necrosis) (3) Kaposi disease (4) Castleman disease (5) HIV disease (6) Hepatitis C (7) Hepatitis B (8) Cyclic vomiting syndrome Assessment/Plan afebrile now feeling better CD4 number is in 60 escobedo cultures, all negative so far serology pending stool is negative for C diff and OB symptomatic treatment. CT chest reviewed: multiple axillary and hilar enlarged nodules. Subjective ROS Limited/Unobtainable: No Allergies: Coded Allergies: No Known Allergies (Unverified , 10/21/17) Objective Last 24 Hour Vital Signs Date Time Temp Pulse Resp B/P (MAP) Pulse Ox O2 Delivery O2 Flow Rate FiO2 05/16/18 12:00 Room Air 05/16/18 09:00 121 90/46 05/16/18 08:00 128 05/16/18 08:00 98.2 121 22 90/46 (61) 97 05/16/18 08:00 Room Air 05/16/18 05:50 97.7 05/16/18 04:00 Room Air 05/16/18 04:00 97.4 123 20 104/54 (71) 100 05/16/18 04:00 114 05/16/18 00:00 104 05/16/18 00:00 97.7 109 20 113/67 (82) 98 05/16/18 00:00 Room Air 05/15/18 20:31 111 116/60 05/15/18 20:00 122 05/15/18 20:00 Room Air 05/15/18 20:00 98.0 111 20 116/58 (77) 98 05/15/18 16:00 103 05/15/18 16:00 98.3 109 19 107/53 (71) 99 05/15/18 16:00 Room Air Intake and Output 05/15/18 05/16/18 19:00 07:00 Intake Total 360.42 ml 1140 ml Output Total 300 ml 400 ml Balance 60.42 ml 740 ml Intake Oral 240 ml IV Total 360.42 ml 900 ml Output Urine Total 300 ml 400 ml # Voids 6 2 # Bowel Movements 12 5 General Appearance: cachetic HEENT: normocephalic, atraumatic Respiratory/Chest: chest wall non-tender, lungs clear Cardiovascular: normal peripheral pulses, normal rate Abdomen: normal bowel sounds, no organomegaly Extremities: no cyanosis Skin: no rash Neurologic/Psychiatric: no motor/sensory deficits Musculoskeletal: normal muscle bulk Microbiology Date/Time Source Procedure Growth Status 05/15/18 14:10 Nasopharynx Influenza Types A,B Antigen (ZHANE) - Final Complete 05/14/18 03:30 Stool Stool Culture - Preliminary NORMAL FECAL MINNIE. Resulted Laboratory Tests 05/15/18 15:00: Urine Color Yellow, Urine Appearance Clear, Urine pH 6, Urine Specific [place] 1.010, Urine Protein 1+H, Urine Glucose (UA) Negative, Urine Ketones Negative, Urine Blood Negative, Urine Nitrite Negative, Urine Bilirubin Negative, Urine Urobilinogen 1H, Urine Leukocyte Esterase Negative, Urine RBC 0-2H, Urine WBC 0- 2, Urine Squamous Epithelial Cells Occasional, Urine Bacteria Occasional, Urine Eosinophils None seen, Urine Random Creatinine [Pending], Urine Random Microalbumin [Pending], Urine Random Sodium 56, Urine Creatinine 70.8, Urine Microalbumin/Creatinine Ratio [Pending], Urine Potassium Timed 19, Histoplasma Antigen [Pending] 05/16/18 03:47: White Blood Count 6.1, Red Blood Count 3.30L, Hemoglobin 8.0L, Hematocrit 24.9L , Mean Corpuscular Volume 76L, Mean Corpuscular Hemoglobin 24.4L, Mean Corpuscular Hemoglobin Concent 32.3, Red Cell Distribution Width 18.3H, Platelet Count 126L, Mean Platelet Volume 5.4L, Neutrophils (%) (Auto) 75.7H, Lymphocytes (%) (Auto) 12.7L, Monocytes (%) (Auto) 7.1, Eosinophils (%) (Auto) 4.3H, Basophils (%) (Auto) 0.2, Erythrocyte Sedimentation Rate 120H, Sodium Level 136, Potassium Level 4.5, Chloride Level 105, Carbon Dioxide Level 25, Anion Gap 6, Blood Urea Nitrogen 13, Creatinine 1.1, Estimat Glomerular Filtration Rate > 60, Glucose Level 104, Calcium Level 7.2L, Phosphorus Level 1.7L, Magnesium Level 1.9, Total Bilirubin 0.3, Aspartate Amino Transf (AST/SGOT ) 21, Alanine Aminotransferase (ALT/SGPT) 9L, Alkaline Phosphatase 59, C- Reactive Protein, Quantitative 25.7H, Total Protein 5.7L, Albumin 1.1L, Globulin 4.6, Albumin/Globulin Ratio 0.2L, Coccidioides Antibody (Comp Fix) [ Pending], Cytomegalovirus IgG Antibody [Pending], Cytomegalovirus IgM Antibody [ Pending], Hepatitis A IgM Antibody [Pending], Hepatitis B Core IgM Antibody [ Pending], Hepatitis B DNA (IU/mL) [Pending] Current Medications Medications (Trade) Dose Ordered Sig/Yessica Route PRN Reason Start Time Stop Time Status Last Admin Dose Admin Acetaminophen (Tylenol) 650 mg Q4H PRN ORAL Mild Pain/Temp > 100.5 05/13/18 12:00 06/12/18 11:59 05/15/18 05:08 Azithromycin (Zithromax) 1,200 mg ONCE A WEEK ORAL 05/13/18 18:00 05/20/18 17:59 05/13/18 18:49 Barium Sulfate (Readi-Cat 2) 450 ml NOW PRN ORAL Radiology Procedure 05/15/18 12:45 05/17/18 12:41 Ceftriaxone Sodium 1 gm/ Dextrose 55 ml @ 110 mls/hr Q24H IVPB 05/15/18 15:00 05/22/18 14:59 05/15/18 14:43 Dextrose/ Electrolytes 1,000 ml @ 75 mls/hr [id number] IV 05/15/18 17:00 06/14/18 16:59 05/16/18 05:19 Dolutegravir Sodium (Tivicay) 50 mg DAILY ORAL 05/15/18 09:00 06/14/18 08:59 05/16/18 08:31 Folic Acid (Folate) 1 mg DAILY ORAL 05/15/18 09:30 06/14/18 09:29 05/16/18 08:30 Heparin Sodium (Porcine) (Heparin 5000 units/ml) 5,000 units EVERY 8 HOURS SUBQ 05/13/18 14:00 06/12/18 13:59 05/15/18 13:40 Iopamidol (Isovue-300 100ml) 100 ml NOW PRN INJ Radiology Procedure 05/15/18 12:45 05/16/18 23:59 Iopamidol (Isovue-300 100ml) 100 ml NOW PRN INJ Radiology Procedure 05/15/18 12:45 05/17/18 12:41 Loperamide HCl (Imodium) 2 mg Q4H PRN ORAL Diarrhea 05/16/18 10:15 06/15/18 10:14 05/16/18 12:14 Metoprolol Tartrate (Lopressor) 50 mg Q12HR ORAL 05/13/18 06:00 06/12/18 05:59 05/15/18 20:31 Metronidazole (Flagyl) 500 mg Q8HR ORAL 05/15/18 14:00 05/22/18 13:59 05/16/18 05:05 Mirtazapine (Remeron) 15 mg BEDTIME ORAL 05/13/18 21:00 06/12/18 20:59 05/15/18 20:31 Morphine Sulfate (Morphine Sulfate) 2 mg Q4H PRN IVP Moderate Pain (Pain Scale 4-6) 05/13/18 12:15 05/20/18 12:14 05/16/18 05:20 Morphine Sulfate (Morphine Sulfate) 4 mg Q4H PRN IVP Severe Pain (Pain Scale 7-10) 05/13/18 12:15 05/20/18 12:14 05/15/18 14:43 Ondansetron HCl (Zofran) 4 mg Q4H PRN IVP Nausea & Vomiting 05/13/18 12:15 06/12/18 12:14 05/15/18 05:04 Patient Own Medication (Patient's Own Med) 1 ea DAILY ORAL 05/13/18 20:00 06/12/18 19:59 05/16/18 08:31 Trimethoprim/ Sulfamethoxazole (Bactrim-DS) 1 tab Q12HR ORAL 05/13/18 21:00 05/20/18 20:59 05/16/18 08:31 Vitamin D (Vitamin D) 1,000 intlu DAILY ORAL 05/13/18 09:00 06/12/18 08:59 05/16/18 08:30 Ya Hester MD May 16, 2018 12:22
[2018-05-16] MEDS: cefTRIAXone 1 GM in D5W 55 ML IVPB SCH (13:44)
[2018-05-16] MEDS ORDERED: Sodium Phosphate 30 MM in NS 275 ML IV ONE (14:00)
--- NOTE | 2018-05-16 14:56 | NUR ---
NURSE NOTES: CT of head, abdomen, pelvic done, vital signs stable, no SOB, continue monitoring.
--- NOTE | 2018-05-16 15:58 | Internal Med Progress Note ---
Subjective Date of Service: May 16, 2018 Physician Name Adam Padron Attending Physician Alberto Gtz MD Current Medications Medications (Trade) Dose Ordered Sig/Yessica Route PRN Reason Start Time Stop Time Status Last Admin Dose Admin Acetaminophen (Tylenol) 650 mg Q4H PRN ORAL Mild Pain/Temp > 100.5 05/13/18 12:00 06/12/18 11:59 05/15/18 05:08 Azithromycin (Zithromax) 1,200 mg ONCE A WEEK ORAL 05/13/18 18:00 05/20/18 17:59 05/13/18 18:49 Barium Sulfate (Readi-Cat 2) 450 ml NOW PRN ORAL Radiology Procedure 05/15/18 12:45 05/17/18 12:41 Ceftriaxone Sodium 1 gm/ Dextrose 55 ml @ 110 mls/hr Q24H IVPB 05/15/18 15:00 05/22/18 14:59 05/16/18 13:44 Dextrose/ Electrolytes 1,000 ml @ 75 mls/hr [id number] IV 05/15/18 17:00 06/14/18 16:59 05/16/18 05:19 Dolutegravir Sodium (Tivicay) 50 mg DAILY ORAL 05/15/18 09:00 06/14/18 08:59 05/16/18 08:31 Folic Acid (Folate) 1 mg DAILY ORAL 05/15/18 09:30 06/14/18 09:29 05/16/18 08:30 Heparin Sodium (Porcine) (Heparin 5000 units/ml) 5,000 units EVERY 8 HOURS SUBQ 05/13/18 14:00 06/12/18 13:59 05/16/18 14:31 Iopamidol (Isovue-300 100ml) 100 ml NOW PRN INJ Radiology Procedure 05/15/18 12:45 05/16/18 23:59 Iopamidol (Isovue-300 100ml) 100 ml NOW PRN INJ Radiology Procedure 05/15/18 12:45 05/17/18 12:41 Loperamide HCl (Imodium) 2 mg Q4H PRN ORAL Diarrhea 05/16/18 10:15 06/15/18 10:14 05/16/18 12:14 Metoprolol Tartrate (Lopressor) 50 mg Q12HR ORAL 05/13/18 06:00 06/12/18 05:59 05/15/18 20:31 Metronidazole (Flagyl) 500 mg Q8HR ORAL 05/15/18 14:00 05/22/18 13:59 05/16/18 14:30 Mirtazapine (Remeron) 15 mg BEDTIME ORAL 05/13/18 21:00 06/12/18 20:59 05/15/18 20:31 Morphine Sulfate (Morphine Sulfate) 2 mg Q4H PRN IVP Moderate Pain (Pain Scale 4-6) 05/13/18 12:15 05/20/18 12:14 05/16/18 05:20 Morphine Sulfate (Morphine Sulfate) 4 mg Q4H PRN IVP Severe Pain (Pain Scale 7-10) 05/13/18 12:15 05/20/18 12:14 05/15/18 14:43 Ondansetron HCl (Zofran) 4 mg Q4H PRN IVP Nausea & Vomiting 05/13/18 12:15 06/12/18 12:14 05/15/18 05:04 Patient Own Medication (Patient's Own Med) 1 ea DAILY ORAL 05/13/18 20:00 06/12/18 19:59 05/16/18 08:31 Sodium Phosphate 30 mm/Sodium Chloride 285 ml @ 47.5 mls/hr ONCE ONCE IV 05/16/18 14:00 05/16/18 19:59 05/16/18 14:30 Trimethoprim/ Sulfamethoxazole (Bactrim-DS) 1 tab Q12HR ORAL 05/13/18 21:00 05/20/18 20:59 05/16/18 08:31 Vitamin D (Vitamin D) 1,000 intlu DAILY ORAL 05/13/18 09:00 06/12/18 08:59 05/16/18 08:30 Allergies: Coded Allergies: No Known Allergies (Unverified , 10/21/17) ROS Limited/Unobtainable: No Constitutional: Reports: no symptoms HEENT: Reports: no symptoms Cardiovascular: Reports: no symptoms Respiratory: Reports: no symptoms Gastrointestinal/Abdominal: Reports: no symptoms Genitourinary: Reports: no symptoms Neurologic/Psychiatric: Reports: no symptoms Subjective 37 YO M admitted with nausea, vomiting and diarrhea. Now hypotension. Cover for Int Med-Dr Gtz Objective Last Vital Signs Date Time Temp Pulse Resp B/P (MAP) Pulse Ox O2 Delivery O2 Flow Rate FiO2 05/16/18 12:00 Room Air 05/16/18 12:00 114 05/16/18 12:00 98.4 23 94/51 (65) 100 Laboratory Tests Test 05/16/18 03:47 White Blood Count 6.1 K/UL (4.8-10.8) Red Blood Count 3.30 M/UL (4.70-6.10) L Hemoglobin 8.0 G/DL (14.2-18.0) L Hematocrit 24.9 % (42.0-52.0) L Mean Corpuscular Volume 76 FL (80-99) L Mean Corpuscular Hemoglobin 24.4 PG (27.0-31.0) L Mean Corpuscular Hemoglobin Concent 32.3 G/DL (32.0-36.0) Red Cell Distribution Width 18.3 % (11.6-14.8) H Platelet Count 126 K/UL (150-450) L Mean Platelet Volume 5.4 FL (6.5-10.1) L Neutrophils (%) (Auto) 75.7 % (45.0-75.0) H Lymphocytes (%) (Auto) 12.7 % (20.0-45.0) L Monocytes (%) (Auto) 7.1 % (1.0-10.0) Eosinophils (%) (Auto) 4.3 % (0.0-3.0) H Basophils (%) (Auto) 0.2 % (0.0-2.0) Erythrocyte Sedimentation Rate 120 MM/HR (0-15) H Sodium Level 136 MMOL/L (136-145) Potassium Level 4.5 MMOL/L (3.5-5.1) Chloride Level 105 MMOL/L (98-107) Carbon Dioxide Level 25 MMOL/L (21-32) Anion Gap 6 mmol/L (5-15) Blood Urea Nitrogen 13 mg/dL (7-18) Creatinine 1.1 MG/DL (0.55-1.30) Estimat Glomerular Filtration Rate > 60 mL/min (>60) Glucose Level 104 MG/DL (74-106) Calcium Level 7.2 MG/DL (8.5-10.1) L Phosphorus Level 1.7 MG/DL (2.5-4.9) L Magnesium Level 1.9 MG/DL (1.8-2.4) Total Bilirubin 0.3 MG/DL (0.2-1.0) Aspartate Amino Transf (AST/SGOT) 21 U/L (15-37) Alanine Aminotransferase (ALT/SGPT) 9 U/L (12-78) L Alkaline Phosphatase 59 U/L (46-116) C-Reactive Protein, Quantitative 25.7 mg/dL (0.00-0.90) H Total Protein 5.7 G/DL (6.4-8.2) L Albumin 1.1 G/DL (3.4-5.0) L Globulin 4.6 g/dL Albumin/Globulin Ratio 0.2 (1.0-2.7) L Coccidioides Antibody (Comp Fix) Pending Cytomegalovirus IgG Antibody Pending Cytomegalovirus IgM Antibody Pending Hepatitis A IgM Antibody Pending Hepatitis B Core IgM Antibody Pending Hepatitis B DNA (IU/mL) Pending Microbiology Date/Time Source Procedure Growth Status 05/15/18 14:10 Nasopharynx Influenza Types A,B Antigen (ZHANE) - Final Complete 05/14/18 03:30 Stool Stool Culture - Preliminary NORMAL FECAL MINNIE. Resulted Intake and Output 05/15/18 05/16/18 18:59 06:59 Intake Total 360.42 ml 1065 ml Output Total 300 ml 400 ml Balance 60.42 ml 665 ml Intake Oral 240 ml IV Total 360.42 ml 825 ml Output Urine Total 300 ml 400 ml # Voids 6 2 # Bowel Movements 12 5 Objective PHYSICAL EXAMINATION: VITAL SIGNS: Temperature 99.7, respirations 24, pulse 128, and blood pressure 96/59. GENERAL: The patient is thin-appearing male, in no apparent distress. HEENT: Eyes, pupils equal and responsive to light and accommodation. Extraocular movements intact. NECK: Supple without lymphadenopathy. CHEST: Lungs are clear to auscultation bilaterally without wheezes or rales. CARDIOVASCULAR: Regular rhythm and rate. S1 and S2 are normal without murmurs, rubs, or gallops. ABDOMEN: Soft and nondistended with decreased bowel sounds. No evidence of hepatosplenomegaly. Currently, no rebound or guarding noted. EXTREMITIES: Negative for clubbing, cyanosis, or edema. RECTAL: Refused. GENITAL: Refused. NEUROLOGIC: Cranial nerves II through XII are grossly intact without focal deficits. Motor strength is 5/5 bilaterally intact. Deep tendon reflexes are 2+, plantar. Assessment/Plan Assessment/Plan ASSESSMENT: This is a 37-year-old male: 1. Nausea with vomiting. 2. Diarrhea. 3. Vertigo. 4. Hypotension. 5. HIV. 6. Kaposi sarcoma. 7. Castleman disease. TREATMENT: 1. Nausea/vomiting/diarrhea. Gastroenterology consultation with Dr. Michael Grande. Stool cultures including Clostridium difficile, stool culture, and ova and parasite are pending. T he patient has been started empirically on Zosyn. An infectious disease consultation has been obtained with Dr Mobley. We will follow recommendations of Gastroenterology and Infectious Disease. 2. Hypotension. This may be secondary to sepsis. Continue Zosyn as above. 3. Kaposi sarcoma. The patient is status post chemotherapy. 4. Castleman disease. 5. Antibiotics=ceftriaxone and flagyl per ID. 6. continue tamiflu Adam Padron MD May 16, 2018 15:58
[2018-05-16 16:00] VITALS: BP 105/52
--- NOTE | 2018-05-16 19:22 | NUR ---
HAND-OFF: Report given to HERSON,no distress at this time.
[2018-05-16 20:00] VITALS: BP 108/54
--- NOTE | 2018-05-16 20:00 | NUR ---
NURSE NOTES: PATIENT ALERT, ORIENTED X3, RESPIRATION REGULAR, NO SOB NOTED, ABDOMEN SOFT, BEDSIDE COMMODE, BEDPAN AND URINAL AT BEDSIDE, NO NAUSEA NOTED AT THIS TIME. PROVIDED CALL LIGHT WITHIN REACH, MADE LOWER BED POSITION, WILL CONTINUE TO MONITOR.
--- NOTE | 2018-05-16 20:43 | NUR ---
NURSE NOTES: VOMITED, YELLOW LIQUID 150ML NOTED THAT GIVEN ZOFRAN 4MG BY IVP PRN ORDERED, WILL CONTINUE TO MONITOR.
--- NOTE | 2018-05-16 23:25 | NUR ---
TRANSFER TO FLOOR: Patient transferred to TELE room 205-2 via hospital bed. Report given to TRES HUFFMAN. Belongings and medications given to TRES HUFFMAN.
[2018-05-16] MEDS ORDERED: Isovue-300 100ml vial INJ PRN (23:30)
--- NOTE | 2018-05-16 23:30 | NUR ---
NURSE NOTES: Received report from Jeremie Wade RN. Patient is awake in bed, A/O x2. Sinus rhythm on cardiac rehabilitation program director. No s/s of acute distress noted. Saturating well on room air. Left upper arm 20g IV intact and patent, running D5 NS with KCl 40 meq @ 75 cc/hr. Bed locked in lowest position with side rails up x3. Call light left within reach. Will continue to monitor.
[2018-05-17] VITALS: BP 90/61
[2018-05-17] MEDS: Morphine Sulfate 2mg/ml Inj(IV/IM USE ONLY) IVP PRN ×4 (03:31→19:42)
[2018-05-17 04:00] VITALS: BP 101/66
[2018-05-17] MEDS: metroNIDAZOLE 500mg tab ORAL SCH ×4 (05:19→21:49)
[2018-05-17] MEDS: Heparin 5000 units/ml inj SUBQ SCH ×3 (05:22→21:57)
[2018-05-17 06:49] LABS: ANION GAP 6 mmol/L (5-15); BLOOD UREA NITROGEN 12 mg/dL (7-18); CALCIUM 6.8 MG/DL (8.5-10.1); CARBON DIOXIDE 24 MMOL/L (21-32); CHLORIDE 104 MMOL/L (98-107); CREATININE 1.1 MG/DL (0.55-1.30); SODIUM 133 MMOL/L (136-145)
[2018-05-17 06:50] LABS: HEMATOCRIT 24.3 % (42.0-52.0); HEMOGLOBIN 7.8 G/DL (14.2-18.0); MEAN CORPUSCULAR VOLUME 75 FL (80-99); PLATELET COUNT 109 K/UL (150-450); RED BLOOD COUNT 3.23 M/UL (4.70-6.10); RED CELL DISTRIBUTION WIDTH 17.9 % (11.6-14.8); WHITE BLOOD COUNT 6.1 K/UL (4.8-10.8)
--- NOTE | 2018-05-17 07:35 | NUR ---
HAND-OFF: Report given to Stevie Cuba RN.
--- NOTE | 2018-05-17 07:50 | NUR ---
NURSE NOTES: Received report from TRES Lowe. Patient in bed resting no active s/s cardiac, respiratory distress noticed at this time, AOx3. Patient on room air, ST with HR 100. IV on left upper arm 20G, IV fluid running at prescribed rate, asymptomatic, patent, intact. Bed in lowest position, side rails upx2, call light within reach. Will continue to monitor.
[2018-05-17 08:00] VITALS: BP 100/61
[2018-05-17] MEDS: Vitamin D 1000 IU Tab ORAL SCH (08:42)
--- NOTE | 2018-05-17 08:42 | General Progress Note ---
Assessment/Plan Problem List: (1) HIV disease ICD Codes: B20 - Human immunodeficiency virus [HIV] disease SNOMED: 67638801 (2) Kaposi disease ICD Codes: Q82.1 - Xeroderma pigmentosum SNOMED: 21603376 (3) Cyclic vomiting syndrome ICD Codes: G43.A0 - Cyclical vomiting, not intractable SNOMED: 14457405 (4) Nausea & vomiting ICD Codes: R11.2 - Nausea with vomiting, unspecified SNOMED: 47095551 (5) Diarrhea ICD Codes: R19.7 - Diarrhea, unspecified SNOMED: 01665884 Assessment/Plan Recent history of unremarkable endoscopy and colonoscopy Marijuana use Kaposi Disease s/p chemotherapy Microcytic anemia C. difficile is negative stool culture negative CD4 count of 64, will check for Cryptosporidium hold Venofer given elevated ferritin levels Zofran as needed OB stool r/o GI bleed monitor H&H, prn transfusions Imodium prn add lomotil ppi IV and p.o. hydration plus electrolyte correction fu labs patient refused colonoscopy prep todat, he wants to do it on Friday fu ID recs Subjective ROS Limited/Unobtainable: Yes Allergies: Coded Allergies: No Known Allergies (Unverified , 10/21/17) Subjective still has diarrhea Objective Last 24 Hour Vital Signs Date Time Temp Pulse Resp B/P (MAP) Pulse Ox O2 Delivery O2 Flow Rate FiO2 05/17/18 04:00 98.1 100 19 101/66 (78) 95 05/17/18 03:32 125 05/17/18 00:00 97.4 105 20 90/61 (71) 96 05/17/18 00:00 Room Air 05/16/18 23:34 100 05/16/18 20:44 113 108/54 05/16/18 20:00 98.2 113 20 108/54 (72) 96 05/16/18 20:00 Room Air 05/16/18 19:34 119 05/16/18 17:17 101.5 05/16/18 17:10 101.5 05/16/18 16:00 101.5 129 22 105/52 (69) 97 05/16/18 16:00 Room Air 05/16/18 16:00 124 05/16/18 12:00 Room Air 05/16/18 12:00 114 05/16/18 12:00 98.4 116 23 94/51 (65) 100 05/16/18 09:00 121 90/46 Intake and Output 05/16/18 05/17/18 19:00 07:00 Intake Total 600.0 ml 1178.75 ml Output Total 300 ml 850 ml Balance 300.0 ml 328.75 ml Intake Oral 500 ml IV Total 600.0 ml 678.75 ml Output Urine Total 300 ml 700 ml Emesis 150 ml # Voids 1 2 # Bowel Movements 4 7 Laboratory Tests 05/17/18 05:20: White Blood Count 6.1, Red Blood Count 3.23L, Hemoglobin 7.8L, Hematocrit 24.3L , Mean Corpuscular Volume 75L, Mean Corpuscular Hemoglobin 24.0L, Mean Corpuscular Hemoglobin Concent 31.9L, Red Cell Distribution Width 17.9H, Platelet Count 109L, Mean Platelet Volume 5.8L, Neutrophils (%) (Auto) , Lymphocytes (%) (Auto) , Monocytes (%) (Auto) , Eosinophils (%) (Auto) , Basophils (%) (Auto) , Differential Total Cells Counted 100, Neutrophils % ( Manual) 68, Lymphocytes % (Manual) 22, Monocytes % (Manual) 8, Eosinophils % ( Manual) 2, Basophils % (Manual) 0, Band Neutrophils 0, Platelet Estimate DecreasedL, Platelet Morphology Normal, Hypochromasia 1+, Anisocytosis 1+, Sodium Level 133L, Potassium Level 5.0, Chloride Level 104, Carbon Dioxide Level 24, Anion Gap 6, Blood Urea Nitrogen 12, Creatinine 1.1, Estimat Glomerular Filtration Rate > 60, Glucose Level 101, Calcium Level 6.8L Height (Feet): 5 Height (Inches): 11.00 Weight (Pounds): 132 General Appearance: alert EENT: normal ENT inspection Neck: supple Cardiovascular: normal rate Respiratory/Chest: decreased breath sounds Abdomen: normal bowel sounds, non tender, soft Extremities: non-tender Michael Grande MD May 17, 2018 08:42
[2018-05-17] MEDS: Metoprolol Tartrate 50mg tab ORAL SCH ×2 (08:50→21:50)
[2018-05-17] MEDS ORDERED: Bactrim-DS 1 tab ORAL SCH (09:00)
--- NOTE | 2018-05-17 10:20 | NUR ---
NURSE NOTES: Patient c/o diarrhea, Imodium 2 mg given
[2018-05-17] MEDS: Dolutegravir Sodium 50mg tab ORAL SCH (10:22)
[2018-05-17] MEDS: Loperamide 2mg cap ORAL PRN (10:22)
--- NOTE | 2018-05-17 11:12 | NUR ---
NURSE NOTES: Dr. Grande made aware of hgb level 7.8 today, per Dr. Grande, no order needed for today. Will continue to monitor.
[2018-05-17 12:00] VITALS: BP 96/61
--- NOTE | 2018-05-17 12:18 | Pulmonology Progress Note ---
Assessment/Plan Problems: (1) Septic shock (2) ATN (acute tubular necrosis) (3) Kaposi disease (4) Castleman disease (5) HIV disease (6) Hepatitis C (7) Hepatitis B (8) Cyclic vomiting syndrome (9) Protein-calorie malnutrition, severe Assessment/Plan afebrile now, still tachy feeling better CD4 number is in 60 escobedo cultures, all negative so far EF is 60% serology pending stool is negative for C diff and OB symptomatic treatment. CT chest reviewed: multiple axillary and hilar enlarged nodules. Subjective ROS Limited/Unobtainable: No Interval Events: doing better Allergies: Coded Allergies: No Known Allergies (Unverified , 10/21/17) Objective Last 24 Hour Vital Signs Date Time Temp Pulse Resp B/P (MAP) Pulse Ox O2 Delivery O2 Flow Rate FiO2 05/17/18 09:12 99.9 05/17/18 09:00 Room Air 05/17/18 08:50 123 100/61 05/17/18 08:00 118 05/17/18 08:00 101.8 123 16 100/61 (74) 96 05/17/18 04:00 98.1 100 19 101/66 (78) 95 05/17/18 03:32 125 05/17/18 00:00 97.4 105 20 90/61 (71) 96 05/17/18 00:00 Room Air 05/16/18 23:34 100 05/16/18 20:44 113 108/54 05/16/18 20:00 98.2 113 20 108/54 (72) 96 05/16/18 20:00 Room Air 05/16/18 19:34 119 05/16/18 17:17 101.5 05/16/18 17:10 101.5 05/16/18 16:00 101.5 129 22 105/52 (69) 97 05/16/18 16:00 Room Air 05/16/18 16:00 124 Intake and Output 05/16/18 05/17/18 19:00 07:00 Intake Total 600.0 ml 1178.75 ml Output Total 300 ml 850 ml Balance 300.0 ml 328.75 ml Intake Oral 500 ml IV Total 600.0 ml 678.75 ml Output Urine Total 300 ml 700 ml Emesis 150 ml # Voids 1 2 # Bowel Movements 4 7 Objective General Appearance: cachetic HEENT: normocephalic, atraumatic Respiratory/Chest: chest wall non-tender, lungs clear Cardiovascular: normal peripheral pulses, normal rate Abdomen: normal bowel sounds, no organomegaly Genitourinary: normal external genitalia Extremities: no clubbing 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 Microbiology Date/Time Source Procedure Growth Status 05/15/18 14:10 Nasopharynx Influenza Types A,B Antigen (ZHANE) - Final Complete Laboratory Tests 05/17/18 05:20: White Blood Count 6.1, Red Blood Count 3.23L, Hemoglobin 7.8L, Hematocrit 24.3L , Mean Corpuscular Volume 75L, Mean Corpuscular Hemoglobin 24.0L, Mean Corpuscular Hemoglobin Concent 31.9L, Red Cell Distribution Width 17.9H, Platelet Count 109L, Mean Platelet Volume 5.8L, Neutrophils (%) (Auto) , Lymphocytes (%) (Auto) , Monocytes (%) (Auto) , Eosinophils (%) (Auto) , Basophils (%) (Auto) , Differential Total Cells Counted 100, Neutrophils % ( Manual) 68, Lymphocytes % (Manual) 22, Monocytes % (Manual) 8, Eosinophils % ( Manual) 2, Basophils % (Manual) 0, Band Neutrophils 0, Platelet Estimate DecreasedL, Platelet Morphology Normal, Hypochromasia 1+, Anisocytosis 1+, Sodium Level 133L, Potassium Level 5.0, Chloride Level 104, Carbon Dioxide Level 24, Anion Gap 6, Blood Urea Nitrogen 12, Creatinine 1.1, Estimat Glomerular Filtration Rate > 60, Glucose Level 101, Calcium Level 6.8L Current Medications Medications (Trade) Dose Ordered Sig/Yessica Route PRN Reason Start Time Stop Time Status Last Admin Dose Admin Acetaminophen (Tylenol) 650 mg Q4H PRN ORAL Mild Pain/Temp > 100.5 05/17/18 00:00 06/12/18 11:59 05/17/18 08:42 Azithromycin (Zithromax) 1,200 mg ONCE A WEEK ORAL 05/20/18 18:00 05/27/18 17:59 Barium Sulfate (Readi-Cat 2) 450 ml NOW PRN ORAL Radiology Procedure 05/16/18 23:30 05/17/18 12:41 Ceftriaxone Sodium 1 gm/ Dextrose 55 ml @ 110 mls/hr Q24H IVPB 05/17/18 15:00 05/22/18 14:59 Dextrose/ Electrolytes 1,000 ml @ 75 mls/hr [id number] IV 05/16/18 23:30 06/14/18 16:59 05/16/18 23:57 Diphenoxylate HCl/ Atropine (Lomotil) 2.5 mg Q4H PRN ORAL Diarrhea 05/17/18 08:45 06/16/18 08:44 Dolutegravir Sodium (Tivicay) 50 mg DAILY ORAL 05/17/18 09:00 06/14/18 08:59 05/17/18 10:22 Folic Acid (Folate) 1 mg DAILY ORAL 05/17/18 09:00 06/14/18 09:29 05/17/18 08:42 Heparin Sodium (Porcine) (Heparin 5000 units/ml) 5,000 units EVERY 8 HOURS SUBQ 05/17/18 06:00 06/12/18 13:59 05/17/18 05:22 Iopamidol (Isovue-300 100ml) 100 ml NOW PRN INJ Radiology Procedure 05/16/18 23:30 05/17/18 12:41 Iopamidol (Isovue-300 100ml) 100 ml NOW PRN INJ Radiology Procedure 05/17/18 12:45 06/16/18 12:44 Loperamide HCl (Imodium) 2 mg Q4H PRN ORAL Diarrhea 05/17/18 02:15 06/15/18 10:14 05/17/18 10:22 Metoprolol Tartrate (Lopressor) 50 mg Q12HR ORAL 05/17/18 09:00 06/12/18 05:59 Metronidazole (Flagyl) 500 mg Q8HR ORAL 05/17/18 06:00 05/22/18 13:59 Mirtazapine (Remeron) 15 mg BEDTIME ORAL 05/17/18 21:00 06/12/18 20:59 Morphine Sulfate (Morphine Sulfate) 2 mg Q4H PRN IVP Moderate Pain (Pain Scale 4-6) 05/17/18 00:15 05/20/18 12:14 05/17/18 08:43 Morphine Sulfate (Morphine Sulfate) 4 mg Q4H PRN IVP Severe Pain (Pain Scale 7-10) 05/17/18 00:15 05/20/18 12:14 Ondansetron HCl (Zofran) 4 mg Q4H PRN IVP Nausea & Vomiting 05/17/18 00:15 06/12/18 12:14 Patient Own Medication (Patient's Own Med) 1 ea DAILY ORAL 05/17/18 09:00 06/12/18 19:59 05/17/18 08:42 Trimethoprim/ Sulfamethoxazole (Bactrim-DS) 1 tab Q12HR ORAL 05/17/18 09:00 05/20/18 20:59 05/17/18 08:42 Vitamin D (Vitamin D) 1,000 intlu DAILY ORAL 05/17/18 09:00 06/12/18 08:59 05/17/18 08:42 Ya Hester MD May 17, 2018 12:17
[2018-05-17] MEDS ORDERED: NS 500ML ONE (12:35)
[2018-05-17] MEDS ORDERED: Tubing IV Secondary IV ONE (12:35)
[2018-05-17] MEDS ORDERED: Isovue-300 100ml vial INJ PRN (12:45)
[2018-05-17] MEDS: D5NS w/KCl 40mEq 1000ml 1,000 ML IV SCH (13:58)
--- NOTE | 2018-05-17 15:00 | NUR ---
NURSE NOTES: Patient vomited x1, large amount, yellow liquid. Zofran 4mg offered, but patient refused to take the medication.
--- NOTE | 2018-05-17 15:09 | NUR ---
CASE MANAGEMENT: REVIEW 05/17/2018 SI:SEPSIS T 100.1 HR 121 RR 16 B/P 96/61 SATS 98% ON RA HGB 7.8 HCT 24.3 NA 133 CA 6.8 IS:TIVICAY 50mg BACTRIM-DS 1TAB REGLAN 5mg ZITHROMAX 1200mg HEPARIN SUBQ PIPERACILLIN 110ml IVPB ZOFRAN 4mg IVP TELE STATUS
[2018-05-17] MEDS: cefTRIAXone 1 GM in D5W 55 ML IVPB SCH (15:35)
[2018-05-17 16:00] VITALS: BP 99/61
--- NOTE | 2018-05-17 16:04 | Internal Med Progress Note ---
Subjective Date of Service: May 17, 2018 Physician Name Adam Padron Attending Physician Alberto Gtz MD Current Medications Medications (Trade) Dose Ordered Sig/Yessica Route PRN Reason Start Time Stop Time Status Last Admin Dose Admin Acetaminophen (Tylenol) 650 mg Q4H PRN ORAL Mild Pain/Temp > 100.5 05/17/18 00:00 06/12/18 11:59 05/17/18 08:42 Azithromycin (Zithromax) 1,200 mg ONCE A WEEK ORAL 05/20/18 18:00 05/27/18 17:59 Ceftriaxone Sodium 1 gm/ Dextrose 55 ml @ 110 mls/hr Q24H IVPB 05/17/18 15:00 05/22/18 14:59 05/17/18 15:35 Dextrose/ Electrolytes 1,000 ml @ 75 mls/hr [id number] IV 05/16/18 23:30 06/14/18 16:59 05/17/18 13:58 Diphenoxylate HCl/ Atropine (Lomotil) 2.5 mg Q4H PRN ORAL Diarrhea 05/17/18 08:45 06/16/18 08:44 Dolutegravir Sodium (Tivicay) 50 mg DAILY ORAL 05/17/18 09:00 06/14/18 08:59 05/17/18 10:22 Folic Acid (Folate) 1 mg DAILY ORAL 05/17/18 09:00 06/14/18 09:29 05/17/18 08:42 Heparin Sodium (Porcine) (Heparin 5000 units/ml) 5,000 units EVERY 8 HOURS SUBQ 05/17/18 06:00 06/12/18 13:59 05/17/18 05:22 Iopamidol (Isovue-300 100ml) 100 ml NOW PRN INJ Radiology Procedure 05/17/18 12:45 06/16/18 12:44 Loperamide HCl (Imodium) 2 mg Q4H PRN ORAL Diarrhea 05/17/18 02:15 06/15/18 10:14 05/17/18 10:22 Metoprolol Tartrate (Lopressor) 50 mg Q12HR ORAL 05/17/18 09:00 06/12/18 05:59 Metronidazole (Flagyl) 500 mg Q8HR ORAL 05/17/18 06:00 05/22/18 13:59 05/17/18 13:53 Mirtazapine (Remeron) 15 mg BEDTIME ORAL 05/17/18 21:00 06/12/18 20:59 Morphine Sulfate (Morphine Sulfate) 2 mg Q4H PRN IVP Moderate Pain (Pain Scale 4-6) 05/17/18 00:15 05/20/18 12:14 05/17/18 15:39 Morphine Sulfate (Morphine Sulfate) 4 mg Q4H PRN IVP Severe Pain (Pain Scale 7-10) 05/17/18 00:15 05/20/18 12:14 Ondansetron HCl (Zofran) 4 mg Q4H PRN IVP Nausea & Vomiting 05/17/18 00:15 06/12/18 12:14 05/17/18 15:34 Patient Own Medication (Patient's Own Med) 1 ea DAILY ORAL 05/17/18 09:00 06/12/18 19:59 05/17/18 08:42 Trimethoprim/ Sulfamethoxazole (Bactrim-DS) 1 tab DAILY ORAL 05/18/18 09:00 05/25/18 08:59 Vitamin D (Vitamin D) 1,000 intlu DAILY ORAL 05/17/18 09:00 06/12/18 08:59 05/17/18 08:42 Allergies: Coded Allergies: No Known Allergies (Unverified , 10/21/17) ROS Limited/Unobtainable: No Constitutional: Reports: no symptoms HEENT: Reports: no symptoms Cardiovascular: Reports: no symptoms Respiratory: Reports: no symptoms Gastrointestinal/Abdominal: Reports: no symptoms Genitourinary: Reports: no symptoms Neurologic/Psychiatric: Reports: no symptoms Subjective 37 YO M admitted with nausea, vomiting and diarrhea. Now hypotension. Cover for Int Med-Dr Gtz. Fever to 101.8 overnight Objective Last Vital Signs Date Time Temp Pulse Resp B/P (MAP) Pulse Ox O2 Delivery O2 Flow Rate FiO2 05/17/18 12:00 113 05/17/18 12:00 100.1 16 96/61 (73) 98 05/17/18 09:00 Room Air Laboratory Tests Test 05/17/18 05:20 White Blood Count 6.1 K/UL (4.8-10.8) Red Blood Count 3.23 M/UL (4.70-6.10) L Hemoglobin 7.8 G/DL (14.2-18.0) L Hematocrit 24.3 % (42.0-52.0) L Mean Corpuscular Volume 75 FL (80-99) L Mean Corpuscular Hemoglobin 24.0 PG (27.0-31.0) L Mean Corpuscular Hemoglobin Concent 31.9 G/DL (32.0-36.0) L Red Cell Distribution Width 17.9 % (11.6-14.8) H Platelet Count 109 K/UL (150-450) L Mean Platelet Volume 5.8 FL (6.5-10.1) L Neutrophils (%) (Auto) % (45.0-75.0) Lymphocytes (%) (Auto) % (20.0-45.0) Monocytes (%) (Auto) % (1.0-10.0) Eosinophils (%) (Auto) % (0.0-3.0) Basophils (%) (Auto) % (0.0-2.0) Differential Total Cells Counted 100 Neutrophils % (Manual) 68 % (45-75) Lymphocytes % (Manual) 22 % (20-45) Monocytes % (Manual) 8 % (1-10) Eosinophils % (Manual) 2 % (0-3) Basophils % (Manual) 0 % (0-2) Band Neutrophils 0 % (0-8) Platelet Estimate Decreased L Platelet Morphology Normal Hypochromasia 1+ Anisocytosis 1+ Sodium Level 133 MMOL/L (136-145) L Potassium Level 5.0 MMOL/L (3.5-5.1) Chloride Level 104 MMOL/L (98-107) Carbon Dioxide Level 24 MMOL/L (21-32) Anion Gap 6 mmol/L (5-15) Blood Urea Nitrogen 12 mg/dL (7-18) Creatinine 1.1 MG/DL (0.55-1.30) Estimat Glomerular Filtration Rate > 60 mL/min (>60) Glucose Level 101 MG/DL (74-106) Calcium Level 6.8 MG/DL (8.5-10.1) L Microbiology Date/Time Source Procedure Growth Status 05/15/18 14:10 Nasopharynx Influenza Types A,B Antigen (ZHANE) - Final Complete Intake and Output 05/16/18 05/17/18 18:59 06:59 Intake Total 675.0 ml 1178.75 ml Output Total 300 ml 850 ml Balance 375.0 ml 328.75 ml Intake Oral 500 ml IV Total 675.0 ml 678.75 ml Output Urine Total 300 ml 700 ml Emesis 150 ml # Voids 1 2 # Bowel Movements 4 7 Objective PHYSICAL EXAMINATION: VITAL SIGNS: Temperature 99.7, respirations 24, pulse 128, and blood pressure 96/59. GENERAL: The patient is thin-appearing male, in no apparent distress. HEENT: Eyes, pupils equal and responsive to light and accommodation. Extraocular movements intact. NECK: Supple without lymphadenopathy. CHEST: Lungs are clear to auscultation bilaterally without wheezes or rales. CARDIOVASCULAR: Regular rhythm and rate. S1 and S2 are normal without murmurs, rubs, or gallops. ABDOMEN: Soft and nondistended with decreased bowel sounds. No evidence of hepatosplenomegaly. Currently, no rebound or guarding noted. EXTREMITIES: Negative for clubbing, cyanosis, or edema. RECTAL: Refused. GENITAL: Refused. NEUROLOGIC: Cranial nerves II through XII are grossly intact without focal deficits. Motor strength is 5/5 bilaterally intact. Deep tendon reflexes are 2+, plantar. Assessment/Plan Assessment/Plan ASSESSMENT: This is a 37-year-old male: 1. Nausea with vomiting. 2. Diarrhea. 3. Vertigo. 4. Hypotension. 5. HIV. 6. Kaposi sarcoma. 7. Castleman disease. 8. New Fever TREATMENT: 1. Nausea/vomiting/diarrhea. Gastroenterology consultation with Dr. Michael Grande. Stool cultures including Clostridium difficile, stool culture, and ova and parasite are pending. T he patient has been started empirically on Zosyn. An infectious disease consultation has been obtained with Dr Mobley. We will follow recommendations of Gastroenterology and Infectious Disease. 2. Hypotension. This may be secondary to sepsis. Continue Zosyn as above. 3. Kaposi sarcoma. The patient is status post chemotherapy. 4. Castleman disease. 5. Antibiotics=ceftriaxone and flagyl per ID. 6. continue tamiflu 7. Fever-follow ID Adam aC MD May 17, 2018 16:04
--- NOTE | 2018-05-17 19:27 | NUR ---
HAND-OFF: Report given to TRES Mathur.
--- NOTE | 2018-05-17 19:30 | NUR ---
NURSE NOTES: Received report from TRES Guerra. Pt is awake and resting in bed. In no acute distress. IV line intact and patent. Bed in lowest position, call light within reach. Will continue plan of care.
[2018-05-17 20:00] VITALS: BP 110/60
[2018-05-17] MEDS ORDERED: Iron Sucrose 100 MG in NS 55 ML IVPB SCH (21:00)
[2018-05-18] VITALS: BP 97/58
[2018-05-18] MEDS: Morphine Sulfate 2mg/ml Inj(IV/IM USE ONLY) IVP PRN ×6 (00:21→23:24)
[2018-05-18 04:00] VITALS: BP 99/60
[2018-05-18] MEDS: D5NS w/KCl 40mEq 1000ml 1,000 ML IV SCH (06:02)
[2018-05-18] MEDS: metroNIDAZOLE 500mg tab ORAL SCH ×3 (06:03→21:16)
[2018-05-18] MEDS: Heparin 5000 units/ml inj SUBQ SCH ×3 (06:07→21:16)
--- NOTE | 2018-05-18 07:10 | NUR ---
HAND-OFF: Report given to TRES Guerra.
--- NOTE | 2018-05-18 07:13 | NUR ---
NURSE NOTES: Received report from TRES Mathur. Patient in bed resting, no active s/s cardiac, respiratory distress noticed at this time, denies pain and n/v at this time. Patient on room air, ST 110, AOx3. IV on right FA 20G asymptomatic, patent, intact. Bed in lowest position, side rails upx2, call light within reach. Will continue to monitor.
[2018-05-18 07:36] LABS: HEMATOCRIT 23.4 % (42.0-52.0); HEMOGLOBIN 7.5 G/DL (14.2-18.0); MEAN CORPUSCULAR VOLUME 74 FL (80-99); PLATELET COUNT 95 K/UL (150-450); RED BLOOD COUNT 3.14 M/UL (4.70-6.10); RED CELL DISTRIBUTION WIDTH 18.2 % (11.6-14.8); WHITE BLOOD COUNT 4.9 K/UL (4.8-10.8)
--- NOTE | 2018-05-18 07:51 | NUR ---
NURSE NOTES: Dr. Grande made aware patient hgb level 7.5 today, per Dr. Grande will follow up, no order given at this time. Will continue to follow up.
[2018-05-18 07:57] LABS: PHOSPHORUS 2.9 MG/DL (2.5-4.9)
[2018-05-18 08:00] VITALS: BP 99/67
[2018-05-18 08:00] LABS: ALANINE AMINOTRANSFERASE 11 U/L (12-78); ALBUMIN 0.9 G/DL (3.4-5.0); ALBUMIN/GLOBULIN RATIO 0.2 (1.0-2.7); ALKALINE PHOSPHATASE 57 U/L (46-116); ANION GAP 5 mmol/L (5-15); ASPARTATE AMINO TRANSFERASE 22 U/L (15-37); BILIRUBIN,TOTAL 0.3 MG/DL (0.2-1.0); BLOOD UREA NITROGEN 14 mg/dL (7-18); CARBON DIOXIDE 22 MMOL/L (21-32); CHLORIDE 106 MMOL/L (98-107); CREATININE 1.1 MG/DL (0.55-1.30); POTASSIUM 4.8 MMOL/L (3.5-5.1); SODIUM 133 MMOL/L (136-145)
[2018-05-18] MEDS: Metoprolol Tartrate 50mg tab ORAL SCH ×2 (09:00→21:20)
[2018-05-18] MEDS: Vitamin D 1000 IU Tab ORAL SCH (09:21)
[2018-05-18] MEDS: Loperamide 2mg cap ORAL PRN ×2 (09:21→23:24)
[2018-05-18] MEDS: Bactrim-DS 1 tab ORAL SCH (09:22)
[2018-05-18] MEDS: Dolutegravir Sodium 50mg tab ORAL SCH (09:26)
--- NOTE | 2018-05-18 10:28 | GI Progress Note ---
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 SNOMED: 32286730 (2) Cyclic vomiting syndrome ICD Codes: G43.A0 - Cyclical vomiting, not intractable SNOMED: 21663404 (3) Nausea & vomiting ICD Codes: R11.2 - Nausea with vomiting, unspecified SNOMED: 61558097 (4) Electrolyte imbalance ICD Codes: E87.8 - Other disorders of electrolyte and fluid balance, not elsewhere classified SNOMED: 672636024 (5) Diarrhea ICD Codes: R19.7 - Diarrhea, unspecified SNOMED: 86685499 (6) Gastroenteritis ICD Codes: K52.9 - Noninfective gastroenteritis and colitis, unspecified SNOMED: 37847622 (7) Dehydration ICD Codes: E86.0 - Dehydration SNOMED: 50592812 Status: progressing Status Narrative Discussed with Dr. Grande Assessment/Plan Recent history of unremarkable endoscopy and colonoscopy Marijuana use Kaposi Disease s/p chemotherapy Microcytic anemia C. difficile is negative stool culture negative CD4 count of 64, will check for Cryptosporidium hold Venofer given elevated ferritin levels Zofran as needed OB stool r/o GI bleed monitor H&H, prn transfusions Imodium prn add lomotil ppi IV and p.o. hydration plus electrolyte correction fu labs patient refused colonoscopy again, states his stools more formed Will consider colonoscopy if patient has persistent diarrhea The patient was seen and examined at bedside and all new and available data was reviewed in the patients chart. I agree with the above findings, impression and plan. (Patient seen earlier today. Signature stamp does not reflect patient encounter time.). - Michael Grande MD Subjective Gastrointestinal/Abdominal: Reports: no symptoms Subjective Patient states his stool is more formed Refusing colonoscopy at this time Objective Last 24 Hour Vital Signs Date Time Temp Pulse Resp B/P (MAP) Pulse Ox O2 Delivery O2 Flow Rate FiO2 05/18/18 09:00 129 99/67 05/18/18 04:00 110 05/18/18 04:00 97.5 110 18 99/60 (73) 98 05/18/18 00:00 99.6 106 18 97/58 (71) 98 05/18/18 00:00 106 05/17/18 21:50 120 118/66 05/17/18 21:00 Room Air 05/17/18 20:00 131 05/17/18 20:00 97.9 131 18 110/60 (77) 99 05/17/18 16:00 115 05/17/18 16:00 99.9 120 18 99/61 (74) 99 05/17/18 12:00 113 05/17/18 12:00 100.1 121 16 96/61 (73) 98 Intake and Output 05/17/18 05/18/18 19:00 07:00 Intake Total 1080 ml 800 ml Output Total 900 ml 1450 ml Balance 180 ml -650 ml Intake Oral 1080 ml IV Total 800 ml Output Urine Total 900 ml 750 ml Stool Total 500 ml Emesis 200 ml # Voids 2 # Bowel Movements 2 3 Laboratory Tests Test 05/18/18 06:40 05/18/18 09:00 White Blood Count 4.9 K/UL (4.8-10.8) Red Blood Count 3.14 M/UL (4.70-6.10) L Hemoglobin 7.5 G/DL (14.2-18.0) L Hematocrit 23.4 % (42.0-52.0) L Mean Corpuscular Volume 74 FL (80-99) L Mean Corpuscular Hemoglobin 24.0 PG (27.0-31.0) L Mean Corpuscular Hemoglobin Concent 32.2 G/DL (32.0-36.0) Red Cell Distribution Width 18.2 % (11.6-14.8) H Platelet Count 95 K/UL (150-450) L Mean Platelet Volume 5.7 FL (6.5-10.1) L Neutrophils (%) (Auto) % (45.0-75.0) Lymphocytes (%) (Auto) % (20.0-45.0) Monocytes (%) (Auto) % (1.0-10.0) Eosinophils (%) (Auto) % (0.0-3.0) Basophils (%) (Auto) % (0.0-2.0) Differential Total Cells Counted 100 Neutrophils % (Manual) 76 % (45-75) H Lymphocytes % (Manual) 20 % (20-45) Monocytes % (Manual) 0 % (1-10) L Eosinophils % (Manual) 0 % (0-3) Basophils % (Manual) 0 % (0-2) Band Neutrophils 4 % (0-8) Platelet Estimate Decreased L Platelet Morphology Normal Hypochromasia 2+ Microcytosis 2+ Sodium Level 133 MMOL/L (136-145) L Potassium Level 4.8 MMOL/L (3.5-5.1) Chloride Level 106 MMOL/L (98-107) Carbon Dioxide Level 22 MMOL/L (21-32) Anion Gap 5 mmol/L (5-15) Blood Urea Nitrogen 14 mg/dL (7-18) Creatinine 1.1 MG/DL (0.55-1.30) Estimat Glomerular Filtration Rate > 60 mL/min (>60) Glucose Level 102 MG/DL (74-106) Calcium Level 7.0 MG/DL (8.5-10.1) L Phosphorus Level 2.9 MG/DL (2.5-4.9) Magnesium Level 1.6 MG/DL (1.8-2.4) L Total Bilirubin 0.3 MG/DL (0.2-1.0) Aspartate Amino Transf (AST/SGOT) 22 U/L (15-37) Alanine Aminotransferase (ALT/SGPT) 11 U/L (12-78) L Alkaline Phosphatase 57 U/L (46-116) Total Protein 5.2 G/DL (6.4-8.2) L Albumin 0.9 G/DL (3.4-5.0) L Globulin 4.3 g/dL Albumin/Globulin Ratio 0.2 (1.0-2.7) L TB Test (T-Spot) Pending TB Test Nil Control (T-Spot) Pending TB Test Panel A (T-Spot) Pending TB Test Panel B (T-Spot) Pending TB Test Positive Control (T-Spot) Pending Height (Feet): 5 Height (Inches): 11.00 Weight (Pounds): 132 General Appearance: WD/WN, no apparent distress, alert Cardiovascular: normal rate Respiratory/Chest: normal breath sounds, no respiratory distress Abdominal Exam: normal bowel sounds, non tender, soft Extremities: normal range of motion, non-tender Simeon Fall NP May 18, 2018 10:28
--- NOTE | 2018-05-18 11:28 | Pulmonology Progress Note ---
Assessment/Plan Problems: (1) Septic shock (2) ATN (acute tubular necrosis) (3) Kaposi disease (4) Castleman disease (5) HIV disease (6) Hepatitis C (7) Hepatitis B (8) Cyclic vomiting syndrome (9) Protein-calorie malnutrition, severe Assessment/Plan febrile now, still tachy feeling better CD4 number is in 60 escobedo cultures, all negative so far EF is 60% serology pending stool is negative for C diff and OB symptomatic treatment. CT chest reviewed: multiple axillary and hilar enlarged nodules. repeat all culture await ID input. Keep in teli because of HR of 120 Subjective ROS Limited/Unobtainable: No Constitutional: Reports: no symptoms HEENT: Repors: no symptoms Respiratory: Reports: no symptoms Allergies: Coded Allergies: No Known Allergies (Unverified , 10/21/17) Objective Last 24 Hour Vital Signs Date Time Temp Pulse Resp B/P (MAP) Pulse Ox O2 Delivery O2 Flow Rate FiO2 05/18/18 09:00 Room Air 05/18/18 09:00 129 99/67 05/18/18 08:00 97.9 127 22 99/67 (78) 96 05/18/18 08:00 121 05/18/18 04:00 110 05/18/18 04:00 97.5 110 18 99/60 (73) 98 05/18/18 00:00 99.6 106 18 97/58 (71) 98 05/18/18 00:00 106 05/17/18 21:50 120 118/66 05/17/18 21:00 Room Air 05/17/18 20:00 131 05/17/18 20:00 97.9 131 18 110/60 (77) 99 05/17/18 16:00 115 05/17/18 16:00 99.9 120 18 99/61 (74) 99 05/17/18 12:00 113 05/17/18 12:00 100.1 121 16 96/61 (73) 98 Intake and Output 05/17/18 05/18/18 19:00 07:00 Intake Total 1080 ml 800 ml Output Total 900 ml 1450 ml Balance 180 ml -650 ml Intake Oral 1080 ml IV Total 800 ml Output Urine Total 900 ml 750 ml Stool Total 500 ml Emesis 200 ml # Voids 2 # Bowel Movements 2 3 Objective General Appearance: cachetic HEENT: normocephalic, atraumatic Respiratory/Chest: chest wall non-tender, lungs clear Cardiovascular: normal peripheral pulses, normal rate Abdomen: normal bowel sounds, no organomegaly Genitourinary: normal external genitalia Extremities: no clubbing 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 Microbiology Date/Time Source Procedure Growth Status 05/15/18 14:10 Nasopharynx Influenza Types A,B Antigen (ZHANE) - Final Complete Laboratory Tests 05/18/18 06:40: White Blood Count 4.9, Red Blood Count 3.14L, Hemoglobin 7.5L, Hematocrit 23.4L , Mean Corpuscular Volume 74L, Mean Corpuscular Hemoglobin 24.0L, Mean Corpuscular Hemoglobin Concent 32.2, Red Cell Distribution Width 18.2H, Platelet Count 95L, Mean Platelet Volume 5.7L, Neutrophils (%) (Auto) , Lymphocytes (%) (Auto) , Monocytes (%) (Auto) , Eosinophils (%) (Auto) , Basophils (%) (Auto) , Differential Total Cells Counted 100, Neutrophils % ( Manual) 76H, Lymphocytes % (Manual) 20, Monocytes % (Manual) 0L, Eosinophils % ( Manual) 0, Basophils % (Manual) 0, Band Neutrophils 4, Platelet Estimate DecreasedL, Platelet Morphology Normal, Hypochromasia 2+, Microcytosis 2+, Sodium Level 133L, Potassium Level 4.8, Chloride Level 106, Carbon Dioxide Level 22, Anion Gap 5, Blood Urea Nitrogen 14, Creatinine 1.1, Estimat Glomerular Filtration Rate > 60, Glucose Level 102, Calcium Level 7.0L, Phosphorus Level 2.9, Magnesium Level 1.6L, Total Bilirubin 0.3, Aspartate Amino Transf (AST/SGOT) 22, Alanine Aminotransferase (ALT/SGPT) 11L, Alkaline Phosphatase 57, Total Protein 5.2L, Albumin 0.9L, Globulin 4.3, Albumin/ Globulin Ratio 0.2L 05/18/18 09:00: TB Test (T-Spot) [Pending], TB Test Nil Control (T-Spot) [Pending], TB Test Panel A (T-Spot) [Pending], TB Test Panel B (T-Spot) [Pending], TB Test Positive Control (T-Spot) [Pending] Current Medications Medications (Trade) Dose Ordered Sig/Yessica Route PRN Reason Start Time Stop Time Status Last Admin Dose Admin Acetaminophen (Tylenol) 650 mg Q4H PRN ORAL Mild Pain/Temp > 100.5 05/17/18 00:00 06/12/18 11:59 05/17/18 08:42 Azithromycin (Zithromax) 1,200 mg ONCE A WEEK ORAL 05/20/18 18:00 05/27/18 17:59 Ceftriaxone Sodium 1 gm/ Dextrose 55 ml @ 110 mls/hr Q24H IVPB 05/17/18 15:00 05/22/18 14:59 05/17/18 15:35 Dextrose/ Electrolytes 1,000 ml @ 75 mls/hr [id number] IV 05/16/18 23:30 06/14/18 16:59 05/18/18 06:02 Diphenoxylate HCl/ Atropine (Lomotil) 2.5 mg Q4H PRN ORAL Diarrhea 05/17/18 08:45 06/16/18 08:44 Dolutegravir Sodium (Tivicay) 50 mg DAILY ORAL 05/17/18 09:00 06/14/18 08:59 05/18/18 09:26 Folic Acid (Folate) 1 mg DAILY ORAL 05/17/18 09:00 06/14/18 09:29 05/18/18 09:21 Heparin Sodium (Porcine) (Heparin 5000 units/ml) 5,000 units EVERY 8 HOURS SUBQ 05/17/18 22:00 06/12/18 13:59 05/18/18 06:07 Iopamidol (Isovue-300 100ml) 100 ml NOW PRN INJ Radiology Procedure 05/17/18 12:45 06/16/18 12:44 Loperamide HCl (Imodium) 2 mg Q4H PRN ORAL Diarrhea 05/17/18 02:15 06/15/18 10:14 05/18/18 09:21 Metoprolol Tartrate (Lopressor) 50 mg Q12HR ORAL 05/17/18 09:00 06/12/18 05:59 05/17/18 21:50 Metronidazole (Flagyl) 500 mg Q8HR ORAL 05/17/18 06:00 05/22/18 13:59 05/18/18 06:03 Mirtazapine (Remeron) 15 mg BEDTIME ORAL 05/17/18 21:00 06/12/18 20:59 05/17/18 21:49 Morphine Sulfate (Morphine Sulfate) 2 mg Q4H PRN IVP Moderate Pain (Pain Scale 4-6) 05/17/18 00:15 05/20/18 12:14 05/18/18 09:21 Morphine Sulfate (Morphine Sulfate) 4 mg Q4H PRN IVP Severe Pain (Pain Scale 7-10) 05/17/18 00:15 05/20/18 12:14 Ondansetron HCl (Zofran) 4 mg Q4H PRN IVP Nausea & Vomiting 05/17/18 00:15 06/12/18 12:14 05/18/18 06:32 Patient Own Medication (Patient's Own Med) 1 ea DAILY ORAL 05/17/18 09:00 06/12/18 19:59 05/18/18 09:54 Trimethoprim/ Sulfamethoxazole (Bactrim-DS) 1 tab DAILY ORAL 05/18/18 09:00 05/25/18 08:59 05/18/18 09:22 Vitamin D (Vitamin D) 1,000 intlu DAILY ORAL 05/17/18 09:00 06/12/18 08:59 05/18/18 09:21 Ya Hester MD May 18, 2018 11:28
[2018-05-18 12:00] VITALS: BP 103/71
--- NOTE | 2018-05-18 13:23 | Infectious Diseases Prog Note ---
Assessment/Plan Assessment/Plan Assessment: SEvere sepsis Fever- r/o opportunistic infection (ie CMV, MAC, recurrence Castleman) Diffuse lymphadenopathy- Ddx: CMV disease (ie colitis), Diffuse MAC, recurrente Castleman, HIV related -CT chest: Mediastinal, axillary, and supraclavicular lymphadenopathy, enlarged compared to the prior CT of the chest. Largest left axillary node measures 3.4 x 2.4 cm. Largest supraclavicular node on the left measures 3.8 x 2.8 cm. Largest mediastinal nodes include a 2.2 x 1.6 cm pretracheal node and a 2.3 x 1.6 cm subcarinal node. Small layering right pleural effusion with fluid in the minor fissure. Kasie-bronchovascular groundglass haziness and nodularity in the right lower lobe. Scattered paraseptal emphysematous changes, predominantly in the upper lung zones. -CT abd/p: Diffuse edema and haziness throughout the mesenteric root. Not significantly changed compared to the visualized portions of the mesenteric root in the prior CT of the chest dated 10/22/17. Mesenteric, retroperitoneal, and inguinal lymphadenopathy. Largest retroperitoneal node measures 3.1 x 2.5 x 2.0 cm to left of the IVC (series 8 image 56, series 10 image 23). Largest left inguinal left node measures 2.9 x 2.5 cm (series 8 image 90). Mild fluid distention and air-fluid levels throughout the colon, which may suggest mild colitis and/or diarrheal disease. No evidence of bowel obstruction. Cholelithiasis without gallbladder wall thickening or ductal dilatation. Scattered subcentimeter hypodensities throughout the spleen, possibly tiny simple cysts. Subcentimeter simple-appearing left renal cortical cysts. Mild urinary bladder wall thickening, most likely related to underdistention. -CT head: . Opacification of the right maxillary sinus, right frontal sinus , and mucosal thickening throughout the ethmoid air cells and left maxillary sinus, suggestive of sinusitis. Partial opacification of the inferior posterior aspect of the left mastoid air cells, suggesting small left mastoid effusion. -Bcx NTD -CXR: No acute findings -Neg: Infl sc, Cr Ag No leukocytosis Nausea/vomiting/diarrhea -Cdiff neg -stool cx normal phi HIV on ARV (dx 1999)- on Truvada and Dolutegravir, now AIDS -04/2018 HIV VL p, Cd4 64 (9.1%); ?decrease due to non complinace -10/2017 HIV VL ND, CD4 87 (12.4%) -09/01/17 - CD4 192 and VL - ND (Out Side labs) -no hx of resistance ; previously on Truvada, Reyataz and Norvir -Has been above 200 in the past. Came down with Chemo REENA, improving Microcytic anemia Thrombocytopenia hx pancreatitis 10/2017 - 10/22/17- CT show reticular opacity and significant lymphadenopathy 10/23/17 - CT abd/pel Lymphadenopathy, Enlarged Pancrease mild B/L hydronephrosis -Blasto, Histo, CrAg neg 11/21/16 - Quantiferon negative (Out Side lab) hx of Kaposi's sarcoma/Castleman's disease s/p chemotherapy - S/P Chemo ending 07/17/17 Last PET 08/12/17 - show stable/not worsening lymphadenopathy Hep C+ hx of Chronic Hep B, VL <15 09/01/17 hx of DVT Plan: - Continue Ceftriaxone #4 and Flagyl #4/5-7 for colitis -05/15/18 SP empiric IV Vancomycin #4 and switch empiric Zosyn #3 to Ceftriaxone and Flagyl -05/16/18 SP Tamiflu #4 - 05/12 SP Cefepime x1 -f/u cx -Monitor CBC/CMP, temperatures -f/u HIV VL, AFB bcx, CMV PCR, -Histoplasma ag urine, COcci ab, parasite stool studies -aspiration precautions -GI f/u -L axillary lymph node biopsy -send tissue for pathology and for cultures (AFB, fungal, bacterial, viral) Thank you for this consultation. Will continue to follow along with you. Subjective Allergies: Coded Allergies: No Known Allergies (Unverified , 10/21/17) Subjective Tm 100.1;a febrile ~24hrs no leukocytosis ongoing diarrhea Objective Vital Signs Last 24 Hour Vital Signs Date Time Temp Pulse Resp B/P (MAP) Pulse Ox O2 Delivery O2 Flow Rate FiO2 05/18/18 09:00 Room Air 05/18/18 09:00 129 99/67 05/18/18 08:00 97.9 127 22 99/67 (78) 96 05/18/18 08:00 121 05/18/18 04:00 110 4/1/19 04:00 97.5 110 18 99/60 (73) 98 05/18/18 00:00 99.6 106 18 97/58 (71) 98 05/18/18 00:00 106 05/17/18 21:50 120 118/66 05/17/18 21:00 Room Air 05/17/18 20:00 131 05/17/18 20:00 97.9 131 18 110/60 (77) 99 05/17/18 16:00 115 05/17/18 16:00 99.9 120 18 99/61 (74) 99 Height (Feet): 5 Height (Inches): 11.00 Weight (Pounds): 132 Objective General Appearance: well appearing, no apparent distress, alert, thin Head: normocephalic PERRL/EOMI, normal ENT inspection Neck: supple Respiratory: normal breath sounds, no respiratory distress Cardiovascular: normal rate Gastrointestinal: normal inspection, non tender, soft, normal bowel sounds, non -distended Musculoskeletal: normal inspection, back normal Neurologic: normal inspection, alert, oriented x3, responsive Skin: normal inspection, normal color, no rash, warm/dry, palpation normal, well hydrated Microbiology Date/Time Source Procedure Growth Status 05/15/18 14:10 Nasopharynx Influenza Types A,B Antigen (ZHANE) - Final Complete Laboratory Tests Test 05/18/18 06:40 05/18/18 09:00 White Blood Count 4.9 K/UL (4.8-10.8) Red Blood Count 3.14 M/UL (4.70-6.10) L Hemoglobin 7.5 G/DL (14.2-18.0) L Hematocrit 23.4 % (42.0-52.0) L Mean Corpuscular Volume 74 FL (80-99) L Mean Corpuscular Hemoglobin 24.0 PG (27.0-31.0) L Mean Corpuscular Hemoglobin Concent 32.2 G/DL (32.0-36.0) Red Cell Distribution Width 18.2 % (11.6-14.8) H Platelet Count 95 K/UL (150-450) L Mean Platelet Volume 5.7 FL (6.5-10.1) L Neutrophils (%) (Auto) % (45.0-75.0) Lymphocytes (%) (Auto) % (20.0-45.0) Monocytes (%) (Auto) % (1.0-10.0) Eosinophils (%) (Auto) % (0.0-3.0) Basophils (%) (Auto) % (0.0-2.0) Differential Total Cells Counted 100 Neutrophils % (Manual) 76 % (45-75) H Lymphocytes % (Manual) 20 % (20-45) Monocytes % (Manual) 0 % (1-10) L Eosinophils % (Manual) 0 % (0-3) Basophils % (Manual) 0 % (0-2) Band Neutrophils 4 % (0-8) Platelet Estimate Decreased L Platelet Morphology Normal Hypochromasia 2+ Microcytosis 2+ Sodium Level 133 MMOL/L (136-145) L Potassium Level 4.8 MMOL/L (3.5-5.1) Chloride Level 106 MMOL/L (98-107) Carbon Dioxide Level 22 MMOL/L (21-32) Anion Gap 5 mmol/L (5-15) Blood Urea Nitrogen 14 mg/dL (7-18) Creatinine 1.1 MG/DL (0.55-1.30) Estimat Glomerular Filtration Rate > 60 mL/min (>60) Glucose Level 102 MG/DL (74-106) Calcium Level 7.0 MG/DL (8.5-10.1) L Phosphorus Level 2.9 MG/DL (2.5-4.9) Magnesium Level 1.6 MG/DL (1.8-2.4) L Total Bilirubin 0.3 MG/DL (0.2-1.0) Aspartate Amino Transf (AST/SGOT) 22 U/L (15-37) Alanine Aminotransferase (ALT/SGPT) 11 U/L (12-78) L Alkaline Phosphatase 57 U/L (46-116) Total Protein 5.2 G/DL (6.4-8.2) L Albumin 0.9 G/DL (3.4-5.0) L Globulin 4.3 g/dL Albumin/Globulin Ratio 0.2 (1.0-2.7) L TB Test (T-Spot) Pending TB Test Nil Control (T-Spot) Pending TB Test Panel A (T-Spot) Pending TB Test Panel B (T-Spot) Pending TB Test Positive Control (T-Spot) Pending Current Medications Medications (Trade) Dose Ordered Sig/Yessica Route PRN Reason Start Time Stop Time Status Last Admin Dose Admin Acetaminophen (Tylenol) 650 mg Q4H PRN ORAL Mild Pain/Temp > 100.5 05/17/18 00:00 06/12/18 11:59 05/17/18 08:42 Azithromycin (Zithromax) 1,200 mg ONCE A WEEK ORAL 05/20/18 18:00 05/27/18 17:59 Ceftriaxone Sodium 1 gm/ Dextrose 55 ml @ 110 mls/hr Q24H IVPB 05/17/18 15:00 05/22/18 14:59 05/17/18 15:35 Diphenoxylate HCl/ Atropine (Lomotil) 2.5 mg Q4H PRN ORAL Diarrhea 05/17/18 08:45 06/16/18 08:44 Dolutegravir Sodium (Tivicay) 50 mg DAILY ORAL 05/17/18 09:00 06/14/18 08:59 05/18/18 09:26 Folic Acid (Folate) 1 mg DAILY ORAL 05/17/18 09:00 06/14/18 09:29 05/18/18 09:21 Heparin Sodium (Porcine) (Heparin 5000 units/ml) 5,000 units EVERY 8 HOURS SUBQ 05/17/18 22:00 06/12/18 13:59 05/18/18 06:07 Iopamidol (Isovue-300 100ml) 100 ml NOW PRN INJ Radiology Procedure 05/17/18 12:45 06/16/18 12:44 Loperamide HCl (Imodium) 2 mg Q4H PRN ORAL Diarrhea 05/17/18 02:15 06/15/18 10:14 05/18/18 09:21 Magnesium Sulfate 100 ml @ 100 mls/hr Q1H IVPB 05/18/18 12:45 05/18/18 14:44 Metoprolol Tartrate (Lopressor) 50 mg Q12HR ORAL 05/17/18 09:00 06/12/18 05:59 05/17/18 21:50 Metronidazole (Flagyl) 500 mg Q8HR ORAL 05/17/18 06:00 05/22/18 13:59 05/18/18 06:03 Mirtazapine (Remeron) 15 mg BEDTIME ORAL 05/17/18 21:00 06/12/18 20:59 05/17/18 21:49 Morphine Sulfate (Morphine Sulfate) 2 mg Q4H PRN IVP Moderate Pain (Pain Scale 4-6) 05/17/18 00:15 05/20/18 12:14 05/18/18 09:21 Morphine Sulfate (Morphine Sulfate) 4 mg Q4H PRN IVP Severe Pain (Pain Scale 7-10) 05/17/18 00:15 05/20/18 12:14 Ondansetron HCl (Zofran) 4 mg Q4H PRN IVP Nausea & Vomiting 05/17/18 00:15 06/12/18 12:14 05/18/18 06:32 Patient Own Medication (Patient's Own Med) 1 ea DAILY ORAL 05/17/18 09:00 06/12/18 19:59 05/18/18 09:54 Trimethoprim/ Sulfamethoxazole (Bactrim-DS) 1 tab DAILY ORAL 05/18/18 09:00 05/25/18 08:59 05/18/18 09:22 Vitamin D (Vitamin D) 1,000 intlu DAILY ORAL 05/17/18 09:00 06/12/18 08:59 05/18/18 09:21 Maite Mobley M.D. May 18, 2018 13:23
--- NOTE | 2018-05-18 14:19 | NUR ---
NURSE NOTES: Spoke with Vira from blood back regarding blood is ready but unable to administer due to patient will be off tele for US biopsy.
--- NOTE | 2018-05-18 14:32 | Cardiology Report ---
APPROVED REPORT EXAM: Two-dimensional and M-mode echocardiogram with Doppler and color Doppler. INDICATION Tachycardia M-Mode DIMENSIONS IVSd0.9 (0.7-1.1cm)Left Atrium (MM)2.7 (1.6-4.0cm) LVDd4.6 (3.5-5.6cm)Aortic Root3.0 (2.0-3.7cm) PWd0.8 (0.7-1.1cm)Aortic Cusp Exc.2.0 (1.5-2.0cm) LVDs2.5 (2.5-4.0cm) PWs1.8 cm Normal left ventricular chamber size, systolic function and wall motion. Left ventricular ejection fraction estimated to be 60-65 %. No evidence of left ventricular hypertrophy. No evidence of pericardial effusion. All other cardiac chamber sizes are within normal limits. Normal aortic valve, pulmonic valve, tricuspid valve structure Mildly thickened mitral valve leaflets with normal excursion. Mild mitral annulus and aortic root calcification. IVC is normal in size with physiological collapse. A color flow and spectral Doppler study was performed and revealed: No aortic insufficiency. No mitral regurgitation. Normal left ventricular diastolic function. Mild tricuspid regurgitation. Tricuspid systolic velocities suggests peak right ventricular systolic pressure of 39 mmHg, consistent with mild pulmonary hypertension. Trace pulmonic regurgitation present.
--- NOTE | 2018-05-18 14:40 | NUR ---
NURSE NOTES: Per jose Singh for off tele unit for US biopsy today. Order noted, entered, carried out.
--- NOTE | 2018-05-18 14:42 | Pre-Procedure Note/Attestation ---
Pre-Procedure Note/Attestation Complete Prior to Procedure Planned Procedure: left Procedure Narrative: axillary node biopsy Indications for Procedure Pre-Operative Diagnosis: lymphadenopathy Attestation I attest that I discussed the nature of the procedure; its benefits; risks and complications; and alternatives (and the risks and benefits of such alternatives ), prior to the procedure, with the patient (or the patient's legal pharmaceutical sales representative). I attest that, if there was a reasonable possibility of needing a blood transfusion, the patient (or the patient's legal pharmaceutical sales representative) was given the [facility] standardized written summary, pursuant to the Kt Jesus Blood Safety Act ([place] Health and Safety Code # 1645, as amended). I attest that I re-evaluated the patient just prior to the surgery and that there has been no change in the patient's H&P, except as documented below: Discussed by phone with pt's. mother Debbie Hewitt at 1435 Jovan Chang MD May 18, 2018 14:42
[2018-05-18] MEDS: cefTRIAXone 1 GM in D5W 55 ML IVPB SCH ×2 (15:00→17:29)
[2018-05-18 16:00] VITALS: BP 96/67
--- NOTE | 2018-05-18 16:20 | Diagnostic Imaging Report ---
Indication: Substances, enlarged axillary lymph nodes both clinically and on prior imaging studies Technique: Informed consent obtained prior to commencement of the procedure by phone from patient's mother. Procedural timeout performed. Ultrasound used to localize optimal puncture site. Sterile prepping and draping. Local anesthesia with 1% lidocaine. Under real-time ultrasound guidance, 19-gauge guide needle advanced into the periphery of the target node. Total 5 needle passes then made into the most prominent enlarged left axillary node using 20-gauge automated biopsy gun. Specimens submitted to pathology and for microbiology. The patient tolerated the procedure well, without immediate complication. Comparison: Reference made to CT scan dated 05/16/2018 Findings: Interstitial images document guide needle placement and subsequent needle passes into the targeted left axillary node Impression: Left axillary node biopsy, as described. Final pathology pending
[2018-05-18] MEDS: Lomotil 2.5mg tab ORAL PRN (17:29)
--- NOTE | 2018-05-18 17:58 | Internal Med Progress Note ---
Subjective Date of Service: May 18, 2018 Physician Name Adam Padron Attending Physician Alberto Gtz MD Current Medications Medications (Trade) Dose Ordered Sig/Yessica Route PRN Reason Start Time Stop Time Status Last Admin Dose Admin Acetaminophen (Tylenol) 650 mg Q4H PRN ORAL Mild Pain/Temp > 100.5 05/17/18 00:00 06/12/18 11:59 05/17/18 08:42 Azithromycin (Zithromax) 1,200 mg ONCE A WEEK ORAL 05/20/18 18:00 05/27/18 17:59 Ceftriaxone Sodium 1 gm/ Dextrose 55 ml @ 110 mls/hr Q24H IVPB 05/17/18 15:00 05/22/18 14:59 05/18/18 17:29 Diphenoxylate HCl/ Atropine (Lomotil) 2.5 mg Q4H PRN ORAL Diarrhea 05/17/18 08:45 06/16/18 08:44 05/18/18 17:29 Dolutegravir Sodium (Tivicay) 50 mg DAILY ORAL 05/17/18 09:00 06/14/18 08:59 05/18/18 09:26 Folic Acid (Folate) 1 mg DAILY ORAL 05/17/18 09:00 06/14/18 09:29 05/18/18 09:21 Heparin Sodium (Porcine) (Heparin 5000 units/ml) 5,000 units EVERY 8 HOURS SUBQ 05/17/18 22:00 06/12/18 13:59 05/18/18 06:07 Iopamidol (Isovue-300 100ml) 100 ml NOW PRN INJ Radiology Procedure 05/17/18 12:45 06/16/18 12:44 Loperamide HCl (Imodium) 2 mg Q4H PRN ORAL Diarrhea 05/17/18 02:15 06/15/18 10:14 05/18/18 09:21 Magnesium Sulfate 100 ml @ 100 mls/hr ONCE ONCE IVPB 05/18/18 20:00 05/18/18 20:59 Metoprolol Tartrate (Lopressor) 50 mg Q12HR ORAL 05/17/18 09:00 06/12/18 05:59 05/17/18 21:50 Metronidazole (Flagyl) 500 mg Q8HR ORAL 05/17/18 06:00 05/22/18 13:59 05/18/18 14:24 Mirtazapine (Remeron) 15 mg BEDTIME ORAL 05/17/18 21:00 06/12/18 20:59 05/17/18 21:49 Morphine Sulfate (Morphine Sulfate) 2 mg Q4H PRN IVP Moderate Pain (Pain Scale 4-6) 05/17/18 00:15 05/20/18 12:14 05/18/18 14:24 Morphine Sulfate (Morphine Sulfate) 4 mg Q4H PRN IVP Severe Pain (Pain Scale 7-10) 05/17/18 00:15 05/20/18 12:14 Ondansetron HCl (Zofran) 4 mg Q4H PRN IVP Nausea & Vomiting 05/17/18 00:15 06/12/18 12:14 05/18/18 06:32 Patient Own Medication (Patient's Own Med) 1 ea DAILY ORAL 05/17/18 09:00 06/12/18 19:59 05/18/18 09:54 Trimethoprim/ Sulfamethoxazole (Bactrim-DS) 1 tab DAILY ORAL 05/18/18 09:00 05/25/18 08:59 05/18/18 09:22 Vitamin D (Vitamin D) 1,000 intlu DAILY ORAL 05/17/18 09:00 06/12/18 08:59 05/18/18 09:21 Allergies: Coded Allergies: No Known Allergies (Unverified , 10/21/17) ROS Limited/Unobtainable: No Constitutional: Reports: no symptoms HEENT: Reports: no symptoms Cardiovascular: Reports: no symptoms Respiratory: Reports: no symptoms Gastrointestinal/Abdominal: Reports: no symptoms Genitourinary: Reports: no symptoms Neurologic/Psychiatric: Reports: no symptoms Subjective 37 YO M admitted with nausea, vomiting and diarrhea. Now hypotension. Cover for Int Med-Dr Gtz. S/P left axillary lymph node biopsy Objective Last Vital Signs Date Time Temp Pulse Resp B/P (MAP) Pulse Ox O2 Delivery O2 Flow Rate FiO2 05/18/18 16:00 118 05/18/18 16:00 97.8 22 96/67 (77) 96 05/18/18 09:00 Room Air Laboratory Tests Test 05/18/18 06:40 05/18/18 09:00 White Blood Count 4.9 K/UL (4.8-10.8) Red Blood Count 3.14 M/UL (4.70-6.10) L Hemoglobin 7.5 G/DL (14.2-18.0) L Hematocrit 23.4 % (42.0-52.0) L Mean Corpuscular Volume 74 FL (80-99) L Mean Corpuscular Hemoglobin 24.0 PG (27.0-31.0) L Mean Corpuscular Hemoglobin Concent 32.2 G/DL (32.0-36.0) Red Cell Distribution Width 18.2 % (11.6-14.8) H Platelet Count 95 K/UL (150-450) L Mean Platelet Volume 5.7 FL (6.5-10.1) L Neutrophils (%) (Auto) % (45.0-75.0) Lymphocytes (%) (Auto) % (20.0-45.0) Monocytes (%) (Auto) % (1.0-10.0) Eosinophils (%) (Auto) % (0.0-3.0) Basophils (%) (Auto) % (0.0-2.0) Differential Total Cells Counted 100 Neutrophils % (Manual) 76 % (45-75) H Lymphocytes % (Manual) 20 % (20-45) Monocytes % (Manual) 0 % (1-10) L Eosinophils % (Manual) 0 % (0-3) Basophils % (Manual) 0 % (0-2) Band Neutrophils 4 % (0-8) Platelet Estimate Decreased L Platelet Morphology Normal Hypochromasia 2+ Microcytosis 2+ Sodium Level 133 MMOL/L (136-145) L Potassium Level 4.8 MMOL/L (3.5-5.1) Chloride Level 106 MMOL/L (98-107) Carbon Dioxide Level 22 MMOL/L (21-32) Anion Gap 5 mmol/L (5-15) Blood Urea Nitrogen 14 mg/dL (7-18) Creatinine 1.1 MG/DL (0.55-1.30) Estimat Glomerular Filtration Rate > 60 mL/min (>60) Glucose Level 102 MG/DL (74-106) Calcium Level 7.0 MG/DL (8.5-10.1) L Phosphorus Level 2.9 MG/DL (2.5-4.9) Magnesium Level 1.6 MG/DL (1.8-2.4) L Total Bilirubin 0.3 MG/DL (0.2-1.0) Aspartate Amino Transf (AST/SGOT) 22 U/L (15-37) Alanine Aminotransferase (ALT/SGPT) 11 U/L (12-78) L Alkaline Phosphatase 57 U/L (46-116) Total Protein 5.2 G/DL (6.4-8.2) L Albumin 0.9 G/DL (3.4-5.0) L Globulin 4.3 g/dL Albumin/Globulin Ratio 0.2 (1.0-2.7) L TB Test (T-Spot) Pending TB Test Nil Control (T-Spot) Pending TB Test Panel A (T-Spot) Pending TB Test Panel B (T-Spot) Pending TB Test Positive Control (T-Spot) Pending Intake and Output 05/17/18 05/18/18 19:00 07:00 Intake Total 1080 ml 800 ml Output Total 900 ml 1450 ml Balance 180 ml -650 ml Intake Oral 1080 ml IV Total 800 ml Output Urine Total 900 ml 750 ml Stool Total 500 ml Emesis 200 ml # Voids 2 # Bowel Movements 2 3 Objective PHYSICAL EXAMINATION: VITAL SIGNS: Temperature 99.7, respirations 24, pulse 128, and blood pressure 96/59. GENERAL: The patient is thin-appearing male, in no apparent distress. HEENT: Eyes, pupils equal and responsive to light and accommodation. Extraocular movements intact. NECK: Supple without lymphadenopathy. CHEST: Lungs are clear to auscultation bilaterally without wheezes or rales. CARDIOVASCULAR: Regular rhythm and rate. S1 and S2 are normal without murmurs, rubs, or gallops. ABDOMEN: Soft and nondistended with decreased bowel sounds. No evidence of hepatosplenomegaly. Currently, no rebound or guarding noted. EXTREMITIES: Negative for clubbing, cyanosis, or edema. RECTAL: Refused. GENITAL: Refused. NEUROLOGIC: Cranial nerves II through XII are grossly intact without focal deficits. Motor strength is 5/5 bilaterally intact. Deep tendon reflexes are 2+, plantar. Assessment/Plan Assessment/Plan ASSESSMENT: This is a 37-year-old male: 1. Nausea with vomiting. 2. Diarrhea. 3. Vertigo. 4. Hypotension. 5. HIV. 6. Kaposi sarcoma. 7. Castleman disease. 8. New Fever 9. Lymphadenopathy TREATMENT: 1. Nausea/vomiting/diarrhea. Gastroenterology consultation with Dr. Michael Grande. Stool cultures including Clostridium difficile, stool culture, and ova and parasite are pending. T he patient has been started empirically on Zosyn. An infectious disease consultation has been obtained with Dr Mobley. We will follow recommendations of Gastroenterology and Infectious Disease. 2. Hypotension. This may be secondary to sepsis. Continue Zosyn as above. 3. Kaposi sarcoma. The patient is status post chemotherapy. 4. Castleman disease. 5. Antibiotics=ceftriaxone and flagyl per ID. 6. continue tamiflu 7. Fever-follow ID recs 8. S/P left axillary lymph node biopsy Adam Padron MD May 18, 2018 17:58
--- NOTE | 2018-05-18 18:40 | NUR ---
NURSE NOTES: IV line on right FA 20G asymptomatic, patent, intact. Patient was off unit for US biopsy, when came back to unit, blood transfusion PRBC 1 unit given. When asked to put another line for ceftriaxone, patient refused put on new IV line.
--- NOTE | 2018-05-18 19:47 | NUR ---
HAND-OFF: Report given to TRES Andino.
--- NOTE | 2018-05-18 19:48 | NUR ---
NURSE NOTES: Pt received from TRES Guerra alert and oriented x3 with no s/s of acute distress. IV site asymptomatic and patent, running to ordered unit of PRBC, no s/s of adverse reactions. Bed in lowest position, call light and belongings within reach.
[2018-05-18 20:00] VITALS: BP 107/60
[2018-05-19] VITALS: BP 110/64
[2018-05-19 04:00] VITALS: BP 94/61
[2018-05-19] MEDS: Heparin 5000 units/ml inj SUBQ SCH ×3 (06:00→21:43)
[2018-05-19] MEDS: metroNIDAZOLE 500mg tab ORAL SCH ×3 (06:40→21:42)
[2018-05-19] MEDS: Morphine Sulfate 2mg/ml Inj(IV/IM USE ONLY) IVP PRN (06:43)
[2018-05-19 07:17] LABS: HEMATOCRIT 25.3 % (42.0-52.0); HEMOGLOBIN 8.1 G/DL (14.2-18.0); MEAN CORPUSCULAR VOLUME 75 FL (80-99); PLATELET COUNT 91 K/UL (150-450); RED BLOOD COUNT 3.36 M/UL (4.70-6.10); WHITE BLOOD COUNT 4.9 K/UL (4.8-10.8)
--- NOTE | 2018-05-19 07:25 | NUR ---
HAND-OFF: Report given to Lexii Meredith RN.
[2018-05-19 07:34] LABS: ALANINE AMINOTRANSFERASE 7 U/L (12-78); ALBUMIN 0.8 G/DL (3.4-5.0); ALBUMIN/GLOBULIN RATIO 0.2 (1.0-2.7); ALKALINE PHOSPHATASE 54 U/L (46-116); ANION GAP 8 mmol/L (5-15); ASPARTATE AMINO TRANSFERASE 26 U/L (15-37); BILIRUBIN,TOTAL 0.2 MG/DL (0.2-1.0); BLOOD UREA NITROGEN 12 mg/dL (7-18); CARBON DIOXIDE 21 MMOL/L (21-32); CHLORIDE 104 MMOL/L (98-107); CREATININE 1.3 MG/DL (0.55-1.30); PHOSPHORUS 3.1 MG/DL (2.5-4.9); POTASSIUM 4.9 MMOL/L (3.5-5.1); SODIUM 133 MMOL/L (136-145)
--- NOTE | 2018-05-19 07:45 | NUR ---
NURSE NOTES: Received report from Sina/RN, Patient awake, no distress/SOB noted. IV patent 20g SL. Bed in low Position, Call light within reach. Will continue plan of care.
[2018-05-19 08:00] VITALS: BP 94/62
[2018-05-19] MEDS: Metoprolol Tartrate 50mg tab ORAL SCH ×2 (09:00→21:43)
[2018-05-19] MEDS: Vitamin D 1000 IU Tab ORAL SCH (09:17)
[2018-05-19] MEDS: Bactrim-DS 1 tab ORAL SCH (09:17)
[2018-05-19] MEDS: Dolutegravir Sodium 50mg tab ORAL SCH (09:17)
--- NOTE | 2018-05-19 10:46 | GI Progress Note ---
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 SNOMED: 10379087 (2) Cyclic vomiting syndrome ICD Codes: G43.A0 - Cyclical vomiting, not intractable SNOMED: 68630308 (3) Nausea & vomiting ICD Codes: R11.2 - Nausea with vomiting, unspecified SNOMED: 77024276 (4) Electrolyte imbalance ICD Codes: E87.8 - Other disorders of electrolyte and fluid balance, not elsewhere classified SNOMED: 843821045 (5) Diarrhea ICD Codes: R19.7 - Diarrhea, unspecified SNOMED: 70553698 (6) Gastroenteritis ICD Codes: K52.9 - Noninfective gastroenteritis and colitis, unspecified SNOMED: 24960612 (7) Dehydration ICD Codes: E86.0 - Dehydration SNOMED: 16914109 Status: stable Status Narrative Discussed with Dr. Grande Assessment/Plan Recent history of unremarkable endoscopy and colonoscopy Marijuana use Kaposi Disease s/p chemotherapy Microcytic anemia C. difficile is negative stool culture negative O&P negative CD4 count of 64, will check for Cryptosporidium hold Venofer given elevated ferritin levels Zofran as needed OB stool r/o GI bleed monitor H&H, prn transfusions Lomotil as needed ppi IV and p.o. hydration plus electrolyte correction fu labs Will consider colonoscopy if patient has persistent diarrhea The patient was seen and examined at bedside and all new and available data was reviewed in the patients chart. I agree with the above findings, impression and plan. (Patient seen earlier today. Signature stamp does not reflect patient encounter time.). - Michael Grande MD Subjective Subjective Patient states his diarrhea has gotten better, stools more formed Refusing colonoscopy at this time Objective Last 24 Hour Vital Signs Date Time Temp Pulse Resp B/P (MAP) Pulse Ox O2 Delivery O2 Flow Rate FiO2 05/19/18 09:00 104 94/62 05/19/18 08:00 98.8 104 18 94/62 (73) 96 05/19/18 04:00 121 05/19/18 04:00 98.0 111 16 94/61 (72) 97 05/19/18 00:00 97.6 124 18 110/64 (79) 99 05/19/18 00:00 121 05/18/18 21:20 127 107/60 05/18/18 21:00 Room Air 05/18/18 21:00 129 05/18/18 20:00 98.4 127 20 107/60 (76) 98 05/18/18 16:00 118 05/18/18 16:00 97.8 126 22 96/67 (77) 96 05/18/18 12:00 121 05/18/18 12:00 98.5 120 19 103/71 (82) 98 Intake and Output 05/18/18 05/19/18 19:00 07:00 Intake Total 1000 ml Output Total 800 ml Balance 200 ml Other 1000 ml Output Urine Total 800 ml # Voids 3 # Bowel Movements 1 3 Laboratory Tests Test 05/19/18 05:30 White Blood Count 4.9 K/UL (4.8-10.8) Red Blood Count 3.36 M/UL (4.70-6.10) L Hemoglobin 8.1 G/DL (14.2-18.0) L Hematocrit 25.3 % (42.0-52.0) L Mean Corpuscular Volume 75 FL (80-99) L Mean Corpuscular Hemoglobin 24.1 PG (27.0-31.0) L Mean Corpuscular Hemoglobin Concent 32.1 G/DL (32.0-36.0) Red Cell Distribution Width 18.0 % (11.6-14.8) H Platelet Count 91 K/UL (150-450) L Mean Platelet Volume 5.8 FL (6.5-10.1) L Neutrophils (%) (Auto) % (45.0-75.0) Lymphocytes (%) (Auto) % (20.0-45.0) Monocytes (%) (Auto) % (1.0-10.0) Eosinophils (%) (Auto) % (0.0-3.0) Basophils (%) (Auto) % (0.0-2.0) Differential Total Cells Counted 100 Neutrophils % (Manual) 66 % (45-75) Lymphocytes % (Manual) 21 % (20-45) Monocytes % (Manual) 6 % (1-10) Eosinophils % (Manual) 6 % (0-3) H Basophils % (Manual) 0 % (0-2) Band Neutrophils 1 % (0-8) Platelet Estimate Decreased L Platelet Morphology Normal Anisocytosis 1+ Microcytosis 1+ Erythrocyte Sedimentation Rate 108 MM/HR (0-15) H Sodium Level 133 MMOL/L (136-145) L Potassium Level 4.9 MMOL/L (3.5-5.1) Chloride Level 104 MMOL/L (98-107) Carbon Dioxide Level 21 MMOL/L (21-32) Anion Gap 8 mmol/L (5-15) Blood Urea Nitrogen 12 mg/dL (7-18) Creatinine 1.3 MG/DL (0.55-1.30) Estimat Glomerular Filtration Rate > 60 mL/min (>60) Glucose Level 95 MG/DL (74-106) Calcium Level 7.0 MG/DL (8.5-10.1) L Phosphorus Level 3.1 MG/DL (2.5-4.9) Magnesium Level 1.9 MG/DL (1.8-2.4) Total Bilirubin 0.2 MG/DL (0.2-1.0) Aspartate Amino Transf (AST/SGOT) 26 U/L (15-37) Alanine Aminotransferase (ALT/SGPT) 7 U/L (12-78) L Alkaline Phosphatase 54 U/L (46-116) C-Reactive Protein, Quantitative 16.2 mg/dL (0.00-0.90) H Total Protein 5.3 G/DL (6.4-8.2) L Albumin 0.8 G/DL (3.4-5.0) L Globulin 4.5 g/dL Albumin/Globulin Ratio 0.2 (1.0-2.7) L Ger-Lloyd DNA Quant copies/mL Pending Ger-Lloyd Quant PCR Plasma log10 Pending Height (Feet): 5 Height (Inches): 11.00 Weight (Pounds): 132 General Appearance: WD/WN, no apparent distress, alert, thin Cardiovascular: normal rate Respiratory/Chest: normal breath sounds, no respiratory distress Abdominal Exam: normal bowel sounds, non tender, soft Extremities: normal range of motion, non-tender Simeon Fall NP May 19, 2018 10:46
[2018-05-19] MEDS: Morphine Sulfate 4mg/ml Inj (IV USE ONLY) IVP PRN ×2 (11:09→19:03)
--- NOTE | 2018-05-19 11:20 | Pulmonology Progress Note ---
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 CT chest reviewed: multiple axillary and hilar enlarged nodules., I asked the general surgeon for excisional biopsy repeat all culture Subjective ROS Limited/Unobtainable: No Constitutional: Reports: no symptoms HEENT: Repors: no symptoms Allergies: Coded Allergies: No Known Allergies (Unverified , 10/21/17) Objective Last 24 Hour Vital Signs Date Time Temp Pulse Resp B/P (MAP) Pulse Ox O2 Delivery O2 Flow Rate FiO2 05/19/18 09:00 104 94/62 05/19/18 08:00 98.8 104 18 94/62 (73) 96 05/19/18 04:00 121 05/19/18 04:00 98.0 111 16 94/61 (72) 97 05/19/18 00:00 97.6 124 18 110/64 (79) 99 05/19/18 00:00 121 05/18/18 21:20 127 107/60 05/18/18 21:00 Room Air 05/18/18 21:00 129 05/18/18 20:00 98.4 127 20 107/60 (76) 98 05/18/18 16:00 118 05/18/18 16:00 97.8 126 22 96/67 (77) 96 05/18/18 12:00 121 05/18/18 12:00 98.5 120 19 103/71 (82) 98 Intake and Output 05/18/18 05/19/18 19:00 07:00 Intake Total 1000 ml Output Total 800 ml Balance 200 ml Other 1000 ml Output Urine Total 800 ml # Voids 3 # Bowel Movements 1 3 Objective General Appearance: cachetic HEENT: normocephalic, atraumatic Respiratory/Chest: chest wall non-tender, lungs clear Cardiovascular: normal peripheral pulses, normal rate Abdomen: normal bowel sounds, no organomegaly Genitourinary: normal external genitalia Extremities: no clubbing Neurologic/Psychiatric: clinic coordinator II-XII grossly normal Laboratory Tests 05/19/18 05:30: White Blood Count 4.9, Red Blood Count 3.36L, Hemoglobin 8.1L, Hematocrit 25.3L , Mean Corpuscular Volume 75L, Mean Corpuscular Hemoglobin 24.1L, Mean Corpuscular Hemoglobin Concent 32.1, Red Cell Distribution Width 18.0H, Platelet Count 91L, Mean Platelet Volume 5.8L, Neutrophils (%) (Auto) , Lymphocytes (%) (Auto) , Monocytes (%) (Auto) , Eosinophils (%) (Auto) , Basophils (%) (Auto) , Differential Total Cells Counted 100, Neutrophils % ( Manual) 66, Lymphocytes % (Manual) 21, Monocytes % (Manual) 6, Eosinophils % ( Manual) 6H, Basophils % (Manual) 0, Band Neutrophils 1, Platelet Estimate DecreasedL, Platelet Morphology Normal, Anisocytosis 1+, Microcytosis 1+, Erythrocyte Sedimentation Rate 108H, Sodium Level 133L, Potassium Level 4.9, Chloride Level 104, Carbon Dioxide Level 21, Anion Gap 8, Blood Urea Nitrogen 12 , Creatinine 1.3, Estimat Glomerular Filtration Rate > 60, Glucose Level 95, Calcium Level 7.0L, Phosphorus Level 3.1, Magnesium Level 1.9, Total Bilirubin 0.2, Aspartate Amino Transf (AST/SGOT) 26, Alanine Aminotransferase (ALT/SGPT) 7L, Alkaline Phosphatase 54, C-Reactive Protein, Quantitative 16.2H, Total Protein 5.3L, Albumin 0.8L, Globulin 4.5, Albumin/Globulin Ratio 0.2L, Ger- Lloyd DNA Quant copies/mL [Pending], Ger-Lloyd Quant PCR Plasma log10 [Pending ] Current Medications Medications (Trade) Dose Ordered Sig/Yessica Route PRN Reason Start Time Stop Time Status Last Admin Dose Admin Acetaminophen (Tylenol) 650 mg Q4H PRN ORAL Mild Pain/Temp > 100.5 05/17/18 00:00 06/12/18 11:59 05/17/18 08:42 Azithromycin (Zithromax) 1,200 mg ONCE A WEEK ORAL 05/20/18 18:00 05/27/18 17:59 Ceftriaxone Sodium 1 gm/ Dextrose 55 ml @ 110 mls/hr Q24H IVPB 05/17/18 15:00 05/22/18 14:59 05/17/18 15:35 Diphenoxylate HCl/ Atropine (Lomotil) 2.5 mg Q4H PRN ORAL Diarrhea 05/17/18 08:45 06/16/18 08:44 05/18/18 17:29 Dolutegravir Sodium (Tivicay) 50 mg DAILY ORAL 05/17/18 09:00 06/14/18 08:59 05/19/18 09:17 Folic Acid (Folate) 1 mg DAILY ORAL 05/17/18 09:00 06/14/18 09:29 05/19/18 09:17 Heparin Sodium (Porcine) (Heparin 5000 units/ml) 5,000 units EVERY 8 HOURS SUBQ 05/17/18 22:00 06/12/18 13:59 05/18/18 06:07 Iopamidol (Isovue-300 100ml) 100 ml NOW PRN INJ Radiology Procedure 05/17/18 12:45 06/16/18 12:44 Loperamide HCl (Imodium) 2 mg Q4H PRN ORAL Diarrhea 05/17/18 02:15 06/15/18 10:14 05/18/18 23:24 Metoprolol Tartrate (Lopressor) 50 mg Q12HR ORAL 05/17/18 09:00 06/12/18 05:59 05/18/18 21:20 Metronidazole (Flagyl) 500 mg Q8HR ORAL 05/17/18 06:00 05/22/18 13:59 05/19/18 06:40 Mirtazapine (Remeron) 15 mg BEDTIME ORAL 05/17/18 21:00 06/12/18 20:59 05/18/18 21:16 Morphine Sulfate (Morphine Sulfate) 2 mg Q4H PRN IVP Moderate Pain (Pain Scale 4-6) 05/17/18 00:15 05/20/18 12:14 05/19/18 06:43 Morphine Sulfate (Morphine Sulfate) 4 mg Q4H PRN IVP Severe Pain (Pain Scale 7-10) 05/17/18 00:15 05/20/18 12:14 05/19/18 11:09 Ondansetron HCl (Zofran) 4 mg Q4H PRN IVP Nausea & Vomiting 05/17/18 00:15 06/12/18 12:14 05/18/18 06:32 Patient Own Medication (Patient's Own Med) 1 ea DAILY ORAL 05/17/18 09:00 06/12/18 19:59 05/19/18 09:17 Trimethoprim/ Sulfamethoxazole (Bactrim-DS) 1 tab DAILY ORAL 05/18/18 09:00 05/25/18 08:59 05/19/18 09:17 Vitamin D (Vitamin D) 1,000 intlu DAILY ORAL 05/17/18 09:00 06/12/18 08:59 05/19/18 09:17 Ya Hester MD May 19, 2018 11:20
[2018-05-19 12:00] VITALS: BP 99/62
[2018-05-19] MEDS: cefTRIAXone 1 GM in D5W 55 ML IVPB SCH (14:30)
--- NOTE | 2018-05-19 15:27 | NUR ---
RD ASSESSMENT & RECOMMENDATIONS SEE CARE ACTIVITY FOR COMPLETE ASSESSMENT DAILY ESTIMATED NEEDS: Needs based on CA, sepsis, HIV/ 61kg 30-35 kcals/kg 0843-9405 total kcals 1-2 g protein/kg 61-122 g total protein 25-30 mL/kg 5371-7601 total fluid mLs NUTRITION DIAGNOSIS: * Increased kcal/prot intake needs R/T catabolic dx and underweight status as evidenced by dx of Kaposi's sarcoma, h/o HIV, low BMI per guidelines. CURRENT DIET:CARDIAC PO DIET RECOMMENDATIONS: Liberalized REGULAR diet + Ensure Enlive TID @ all meals ADDITIONAL RECOMMENDATIONS: * Calibrated bedscale wt or standing wt for accurate CBW * Monitor lytes daily, replete as needed * MVI x 1 as supplement * Monitor PO intake and tolerance c/o N/V/D upon adm, now improved .
--- NOTE | 2018-05-19 15:39 | Infectious Diseases Prog Note ---
Assessment/Plan Assessment/Plan Assessment: SEvere sepsis Fever- r/o opportunistic infection (ie CMV, MAC, recurrence Castleman) Diffuse lymphadenopathy- Ddx: CMV disease (ie colitis), Diffuse MAC, recurrente Castleman, HIV related, lymphoma -05/18 s/p L axillary lymph node biopsy -path p -flow cytometry n eg -bacterial cx NTD; fungal, viral and AFB p -CT chest: Mediastinal, axillary, and supraclavicular lymphadenopathy, enlarged compared to the prior CT of the chest. Largest left axillary node measures 3.4 x 2.4 cm. Largest supraclavicular node on the left measures 3.8 x 2.8 cm. Largest mediastinal nodes include a 2.2 x 1.6 cm pretracheal node and a 2.3 x 1.6 cm subcarinal node. Small layering right pleural effusion with fluid in the minor fissure. Kasie-bronchovascular groundglass haziness and nodularity in the right lower lobe. Scattered paraseptal emphysematous changes, predominantly in the upper lung zones. -CT abd/p: Diffuse edema and haziness throughout the mesenteric root. Not significantly changed compared to the visualized portions of the mesenteric root in the prior CT of the chest dated 10/22/17. Mesenteric, retroperitoneal, and inguinal lymphadenopathy. Largest retroperitoneal node measures 3.1 x 2.5 x 2.0 cm to left of the IVC (series 8 image 56, series 10 image 23). Largest left inguinal left node measures 2.9 x 2.5 cm (series 8 image 90). Mild fluid distention and air-fluid levels throughout the colon, which may suggest mild colitis and/or diarrheal disease. No evidence of bowel obstruction. Cholelithiasis without gallbladder wall thickening or ductal dilatation. Scattered subcentimeter hypodensities throughout the spleen, possibly tiny simple cysts. Subcentimeter simple-appearing left renal cortical cysts. Mild urinary bladder wall thickening, most likely related to underdistention. -CT head: . Opacification of the right maxillary sinus, right frontal sinus , and mucosal thickening throughout the ethmoid air cells and left maxillary sinus, suggestive of sinusitis. Partial opacification of the inferior posterior aspect of the left mastoid air cells, suggesting small left mastoid effusion. -Bcx NTD -CXR: No acute findings -Neg: Infl sc, Cr Ag No leukocytosis Nausea/vomiting/diarrhea -Cdiff neg -stool cx normal phi HIV on ARV (dx 1999)- on Truvada and Dolutegravir, now AIDS -04/2018 HIV VL p, Cd4 64 (9.1%); VL 100 ?decrease due to non compliance, however low viremia (will expect higher viremia if non compliance) -10/2017 HIV VL ND, CD4 87 (12.4%) -09/01/17 - CD4 192 and VL - ND (Out [facility] labs) -no hx of resistance ; previously on Truvada, Reyataz and Norvir -Has been above 200 in the past. Came down with Chemo REENA, improving Microcytic anemia Thrombocytopenia hx pancreatitis 10/2017 - 10/22/17- CT show reticular opacity and significant lymphadenopathy 10/23/17 - CT abd/pel Lymphadenopathy, Enlarged Pancrease mild B/L hydronephrosis -Blasto, Histo, CrAg neg 11/21/16 - Quantiferon negative (Out Side lab) hx of Kaposi's sarcoma/Castleman's disease s/p chemotherapy - S/P Chemo ending 07/17/17 Last PET 08/12/17 - show stable/not worsening lymphadenopathy Hep C+ hx of Chronic Hep B, VL <15 09/01/17 hx of DVT Plan: - Continue Ceftriaxone #4 and Flagyl #5/5-7 for colitis -05/15/18 SP empiric IV Vancomycin #4 and switch empiric Zosyn #3 to Ceftriaxone and Flagyl -05/16/18 SP Tamiflu #4 - 05/12 SP Cefepime x1 -f/u cx -Monitor CBC/CMP, temperatures -f/u AFB bcx, CMV PCR, -Histoplasma ag urine, COcci ab, parasite stool studies -aspiration precautions -GI f/u -fu axillary lymph node biopsy -pathology and for cultures (AFB, fungal, bacterial, viral), MTB PCR - If lymph node biopsy unrevealing, may need bone marrow biopsy Thank you for this consultation. Will continue to follow along with you. Subjective Allergies: Coded Allergies: No Known Allergies (Unverified , 10/21/17) Subjective afebrile ~48hrs no leukocytosis; + anemia and thrombocytopenia ongoing diarrhea s/p L axillary lymph node biopsy yesterday Objective Vital Signs Last 24 Hour Vital Signs Date Time Temp Pulse Resp B/P (MAP) Pulse Ox O2 Delivery O2 Flow Rate FiO2 05/19/18 12:00 98.6 118 20 99/62 (74) 95 05/19/18 09:00 104 94/62 05/19/18 08:00 98.8 104 18 94/62 (73) 96 05/19/18 04:00 121 05/19/18 04:00 98.0 111 16 94/61 (72) 97 05/19/18 00:00 97.6 124 18 110/64 (79) 99 05/19/18 00:00 121 05/18/18 21:20 127 107/60 05/18/18 21:00 Room Air 05/18/18 21:00 129 05/18/18 20:00 98.4 127 20 107/60 (76) 98 05/18/18 16:00 118 05/18/18 16:00 97.8 126 22 96/67 (77) 96 Height (Feet): 5 Height (Inches): 11.00 Weight (Pounds): 132 Objective General Appearance: well appearing, no apparent distress, alert, thin Head: normocephalic PERRL/EOMI, normal ENT inspection Neck: supple Respiratory: normal breath sounds, no respiratory distress Cardiovascular: normal rate Gastrointestinal: normal inspection, non tender, soft, normal bowel sounds, non -distended Musculoskeletal: normal inspection, back normal Neurologic: normal inspection, alert, oriented x3, responsive Skin: normal inspection, normal color, no rash, warm/dry, palpation normal, well hydrated Microbiology Date/Time Source Procedure Growth Status 05/18/18 14:50 Lymph Node Gram Stain - Final Resulted 05/18/18 14:50 Lymph Node Aerobic Culture - Preliminary NO GROWTH Resulted 05/18/18 14:50 Lymph Node Anaerobic Culture - Preliminary NO GROWTH Resulted Laboratory Tests Test 05/19/18 05:30 White Blood Count 4.9 K/UL (4.8-10.8) Red Blood Count 3.36 M/UL (4.70-6.10) L Hemoglobin 8.1 G/DL (14.2-18.0) L Hematocrit 25.3 % (42.0-52.0) L Mean Corpuscular Volume 75 FL (80-99) L Mean Corpuscular Hemoglobin 24.1 PG (27.0-31.0) L Mean Corpuscular Hemoglobin Concent 32.1 G/DL (32.0-36.0) Red Cell Distribution Width 18.0 % (11.6-14.8) H Platelet Count 91 K/UL (150-450) L Mean Platelet Volume 5.8 FL (6.5-10.1) L Neutrophils (%) (Auto) % (45.0-75.0) Lymphocytes (%) (Auto) % (20.0-45.0) Monocytes (%) (Auto) % (1.0-10.0) Eosinophils (%) (Auto) % (0.0-3.0) Basophils (%) (Auto) % (0.0-2.0) Differential Total Cells Counted 100 Neutrophils % (Manual) 66 % (45-75) Lymphocytes % (Manual) 21 % (20-45) Monocytes % (Manual) 6 % (1-10) Eosinophils % (Manual) 6 % (0-3) H Basophils % (Manual) 0 % (0-2) Band Neutrophils 1 % (0-8) Platelet Estimate Decreased L Platelet Morphology Normal Anisocytosis 1+ Microcytosis 1+ Erythrocyte Sedimentation Rate 108 MM/HR (0-15) H Sodium Level 133 MMOL/L (136-145) L Potassium Level 4.9 MMOL/L (3.5-5.1) Chloride Level 104 MMOL/L (98-107) Carbon Dioxide Level 21 MMOL/L (21-32) Anion Gap 8 mmol/L (5-15) Blood Urea Nitrogen 12 mg/dL (7-18) Creatinine 1.3 MG/DL (0.55-1.30) Estimat Glomerular Filtration Rate > 60 mL/min (>60) Glucose Level 95 MG/DL (74-106) Calcium Level 7.0 MG/DL (8.5-10.1) L Phosphorus Level 3.1 MG/DL (2.5-4.9) Magnesium Level 1.9 MG/DL (1.8-2.4) Total Bilirubin 0.2 MG/DL (0.2-1.0) Aspartate Amino Transf (AST/SGOT) 26 U/L (15-37) Alanine Aminotransferase (ALT/SGPT) 7 U/L (12-78) L Alkaline Phosphatase 54 U/L (46-116) C-Reactive Protein, Quantitative 16.2 mg/dL (0.00-0.90) H Total Protein 5.3 G/DL (6.4-8.2) L Albumin 0.8 G/DL (3.4-5.0) L Globulin 4.5 g/dL Albumin/Globulin Ratio 0.2 (1.0-2.7) L Ger-Lloyd DNA Quant copies/mL Pending Ger-Lloyd Quant PCR Plasma log10 Pending Current Medications Medications (Trade) Dose Ordered Sig/Yessica Route PRN Reason Start Time Stop Time Status Last Admin Dose Admin Acetaminophen (Tylenol) 650 mg Q4H PRN ORAL Mild Pain/Temp > 100.5 05/17/18 00:00 06/12/18 11:59 05/17/18 08:42 Azithromycin (Zithromax) 1,200 mg ONCE A WEEK ORAL 05/20/18 18:00 05/27/18 17:59 Ceftriaxone Sodium 1 gm/ Dextrose 55 ml @ 110 mls/hr Q24H IVPB 05/17/18 15:00 05/22/18 14:59 05/19/18 14:30 Diphenoxylate HCl/ Atropine (Lomotil) 2.5 mg Q4H PRN ORAL Diarrhea 05/17/18 08:45 06/16/18 08:44 05/18/18 17:29 Dolutegravir Sodium (Tivicay) 50 mg DAILY ORAL 05/17/18 09:00 06/14/18 08:59 05/19/18 09:17 Folic Acid (Folate) 1 mg DAILY ORAL 05/17/18 09:00 06/14/18 09:29 05/19/18 09:17 Heparin Sodium (Porcine) (Heparin 5000 units/ml) 5,000 units EVERY 8 HOURS SUBQ 05/17/18 22:00 06/12/18 13:59 05/18/18 06:07 Iopamidol (Isovue-300 100ml) 100 ml NOW PRN INJ Radiology Procedure 05/17/18 12:45 06/16/18 12:44 Loperamide HCl (Imodium) 2 mg Q4H PRN ORAL Diarrhea 05/17/18 02:15 06/15/18 10:14 05/18/18 23:24 Metoprolol Tartrate (Lopressor) 50 mg Q12HR ORAL 05/17/18 09:00 06/12/18 05:59 05/18/18 21:20 Metronidazole (Flagyl) 500 mg Q8HR ORAL 05/17/18 06:00 05/22/18 13:59 05/19/18 14:30 Mirtazapine (Remeron) 15 mg BEDTIME ORAL 05/17/18 21:00 06/12/18 20:59 05/18/18 21:16 Morphine Sulfate (Morphine Sulfate) 2 mg Q4H PRN IVP Moderate Pain (Pain Scale 4-6) 05/17/18 00:15 05/20/18 12:14 05/19/18 06:43 Morphine Sulfate (Morphine Sulfate) 4 mg Q4H PRN IVP Severe Pain (Pain Scale 7-10) 05/17/18 00:15 05/20/18 12:14 05/19/18 11:09 Ondansetron HCl (Zofran) 4 mg Q4H PRN IVP Nausea & Vomiting 05/17/18 00:15 06/12/18 12:14 05/18/18 06:32 Patient Own Medication (Patient's Own Med) 1 ea DAILY ORAL 05/17/18 09:00 06/12/18 19:59 05/19/18 09:17 Trimethoprim/ Sulfamethoxazole (Bactrim-DS) 1 tab DAILY ORAL 05/18/18 09:00 05/25/18 08:59 05/19/18 09:17 Vitamin D (Vitamin D) 1,000 intlu DAILY ORAL 05/17/18 09:00 06/12/18 08:59 05/19/18 09:17 Maite Mobley M.D. May 19, 2018 15:39
[2018-05-19 16:00] VITALS: BP 131/76
--- NOTE | 2018-05-19 17:08 | NUR ---
CASE MANAGEMENT: REVIEW 05/19/2018 SI:SEPSIS T 98.6 HR 118 RR 20 B/P 99/62 SATS 95% ON RA NA 133 CA 7 ALT 7 IS:TIVICAY 50mg BACTRIM-DS 1TAB REGLAN 5mg ZITHROMAX 1200mg HEPARIN SUBQ PIPERACILLIN 110ml IVPB ZOFRAN 4mg IVP TELE STATUS
--- NOTE | 2018-05-19 17:10 | Internal Med Progress Note ---
Subjective Date of Service: May 19, 2018 Physician Name Adam Padron Attending Physician Alberto Gtz MD Current Medications Medications (Trade) Dose Ordered Sig/Yessica Route PRN Reason Start Time Stop Time Status Last Admin Dose Admin Acetaminophen (Tylenol) 650 mg Q4H PRN ORAL Mild Pain/Temp > 100.5 05/17/18 00:00 06/12/18 11:59 05/17/18 08:42 Azithromycin (Zithromax) 1,200 mg ONCE A WEEK ORAL 05/20/18 18:00 05/27/18 17:59 Ceftriaxone Sodium 1 gm/ Dextrose 55 ml @ 110 mls/hr Q24H IVPB 05/17/18 15:00 05/22/18 14:59 05/19/18 14:30 Diphenoxylate HCl/ Atropine (Lomotil) 2.5 mg Q4H PRN ORAL Diarrhea 05/17/18 08:45 06/16/18 08:44 05/18/18 17:29 Dolutegravir Sodium (Tivicay) 50 mg DAILY ORAL 05/17/18 09:00 06/14/18 08:59 05/19/18 09:17 Folic Acid (Folate) 1 mg DAILY ORAL 05/17/18 09:00 06/14/18 09:29 05/19/18 09:17 Heparin Sodium (Porcine) (Heparin 5000 units/ml) 5,000 units EVERY 8 HOURS SUBQ 05/17/18 22:00 06/12/18 13:59 05/18/18 06:07 Iopamidol (Isovue-300 100ml) 100 ml NOW PRN INJ Radiology Procedure 05/17/18 12:45 06/16/18 12:44 Loperamide HCl (Imodium) 2 mg Q4H PRN ORAL Diarrhea 05/17/18 02:15 06/15/18 10:14 05/18/18 23:24 Metoprolol Tartrate (Lopressor) 50 mg Q12HR ORAL 05/17/18 09:00 06/12/18 05:59 05/18/18 21:20 Metronidazole (Flagyl) 500 mg Q8HR ORAL 05/17/18 06:00 05/22/18 13:59 05/19/18 14:30 Mirtazapine (Remeron) 15 mg BEDTIME ORAL 05/17/18 21:00 06/12/18 20:59 05/18/18 21:16 Morphine Sulfate (Morphine Sulfate) 2 mg Q4H PRN IVP Moderate Pain (Pain Scale 4-6) 05/17/18 00:15 05/20/18 12:14 05/19/18 06:43 Morphine Sulfate (Morphine Sulfate) 4 mg Q4H PRN IVP Severe Pain (Pain Scale 7-10) 05/17/18 00:15 05/20/18 12:14 05/19/18 11:09 Ondansetron HCl (Zofran) 4 mg Q4H PRN IVP Nausea & Vomiting 05/17/18 00:15 06/12/18 12:14 05/18/18 06:32 Patient Own Medication (Patient's Own Med) 1 ea DAILY ORAL 05/17/18 09:00 06/12/18 19:59 05/19/18 09:17 Trimethoprim/ Sulfamethoxazole (Bactrim-DS) 1 tab DAILY ORAL 05/18/18 09:00 05/25/18 08:59 05/19/18 09:17 Vitamin D (Vitamin D) 1,000 intlu DAILY ORAL 05/17/18 09:00 06/12/18 08:59 05/19/18 09:17 Allergies: Coded Allergies: No Known Allergies (Unverified , 10/21/17) ROS Limited/Unobtainable: No Constitutional: Reports: no symptoms HEENT: Reports: no symptoms Cardiovascular: Reports: no symptoms Respiratory: Reports: no symptoms Gastrointestinal/Abdominal: Reports: no symptoms Genitourinary: Reports: no symptoms Neurologic/Psychiatric: Reports: no symptoms Subjective 37 YO M admitted with nausea, vomiting and diarrhea. Now hypotension. Cover for Int Med-Dr Gtz. S/P left axillary lymph node biopsy Objective Last Vital Signs Date Time Temp Pulse Resp B/P (MAP) Pulse Ox O2 Delivery O2 Flow Rate FiO2 05/19/18 12:00 98.6 118 20 99/62 (74) 95 05/19/18 09:00 Room Air Laboratory Tests Test 05/19/18 05:30 White Blood Count 4.9 K/UL (4.8-10.8) Red Blood Count 3.36 M/UL (4.70-6.10) L Hemoglobin 8.1 G/DL (14.2-18.0) L Hematocrit 25.3 % (42.0-52.0) L Mean Corpuscular Volume 75 FL (80-99) L Mean Corpuscular Hemoglobin 24.1 PG (27.0-31.0) L Mean Corpuscular Hemoglobin Concent 32.1 G/DL (32.0-36.0) Red Cell Distribution Width 18.0 % (11.6-14.8) H Platelet Count 91 K/UL (150-450) L Mean Platelet Volume 5.8 FL (6.5-10.1) L Neutrophils (%) (Auto) % (45.0-75.0) Lymphocytes (%) (Auto) % (20.0-45.0) Monocytes (%) (Auto) % (1.0-10.0) Eosinophils (%) (Auto) % (0.0-3.0) Basophils (%) (Auto) % (0.0-2.0) Differential Total Cells Counted 100 Neutrophils % (Manual) 66 % (45-75) Lymphocytes % (Manual) 21 % (20-45) Monocytes % (Manual) 6 % (1-10) Eosinophils % (Manual) 6 % (0-3) H Basophils % (Manual) 0 % (0-2) Band Neutrophils 1 % (0-8) Platelet Estimate Decreased L Platelet Morphology Normal Anisocytosis 1+ Microcytosis 1+ Erythrocyte Sedimentation Rate 108 MM/HR (0-15) H Sodium Level 133 MMOL/L (136-145) L Potassium Level 4.9 MMOL/L (3.5-5.1) Chloride Level 104 MMOL/L (98-107) Carbon Dioxide Level 21 MMOL/L (21-32) Anion Gap 8 mmol/L (5-15) Blood Urea Nitrogen 12 mg/dL (7-18) Creatinine 1.3 MG/DL (0.55-1.30) Estimat Glomerular Filtration Rate > 60 mL/min (>60) Glucose Level 95 MG/DL (74-106) Calcium Level 7.0 MG/DL (8.5-10.1) L Phosphorus Level 3.1 MG/DL (2.5-4.9) Magnesium Level 1.9 MG/DL (1.8-2.4) Total Bilirubin 0.2 MG/DL (0.2-1.0) Aspartate Amino Transf (AST/SGOT) 26 U/L (15-37) Alanine Aminotransferase (ALT/SGPT) 7 U/L (12-78) L Alkaline Phosphatase 54 U/L (46-116) C-Reactive Protein, Quantitative 16.2 mg/dL (0.00-0.90) H Total Protein 5.3 G/DL (6.4-8.2) L Albumin 0.8 G/DL (3.4-5.0) L Globulin 4.5 g/dL Albumin/Globulin Ratio 0.2 (1.0-2.7) L Ger-Lloyd DNA Quant copies/mL Pending Ger-Lloyd Quant PCR Plasma log10 Pending Microbiology Date/Time Source Procedure Growth Status 05/18/18 14:50 Lymph Node Gram Stain - Final Resulted 05/18/18 14:50 Lymph Node Aerobic Culture - Preliminary NO GROWTH Resulted 05/18/18 14:50 Lymph Node Anaerobic Culture - Preliminary NO GROWTH Resulted Intake and Output 05/18/18 05/19/18 19:00 07:00 Intake Total 1000 ml Output Total 800 ml Balance 200 ml Other 1000 ml Output Urine Total 800 ml # Voids 3 # Bowel Movements 1 3 Objective PHYSICAL EXAMINATION: VITAL SIGNS: Temperature 99.7, respirations 24, pulse 128, and blood pressure 96/59. GENERAL: The patient is thin-appearing male, in no apparent distress. HEENT: Eyes, pupils equal and responsive to light and accommodation. Extraocular movements intact. NECK: Supple without lymphadenopathy. CHEST: Lungs are clear to auscultation bilaterally without wheezes or rales. CARDIOVASCULAR: Regular rhythm and rate. S1 and S2 are normal without murmurs, rubs, or gallops. ABDOMEN: Soft and nondistended with decreased bowel sounds. No evidence of hepatosplenomegaly. Currently, no rebound or guarding noted. EXTREMITIES: Negative for clubbing, cyanosis, or edema. RECTAL: Refused. GENITAL: Refused. NEUROLOGIC: Cranial nerves II through XII are grossly intact without focal deficits. Motor strength is 5/5 bilaterally intact. Deep tendon reflexes are 2+, plantar. Assessment/Plan Assessment/Plan ASSESSMENT: This is a 37-year-old male: 1. Nausea with vomiting. 2. Diarrhea. 3. Vertigo. 4. Hypotension. 5. HIV. 6. Kaposi sarcoma. 7. Castleman disease. 8. New Fever 9. Lymphadenopathy 10. Anemia TREATMENT: 1. Nausea/vomiting/diarrhea. Gastroenterology consultation with Dr. Michael Grande. Stool cultures including Clostridium difficile, stool culture, and ova and parasite are pending. T he patient has been started empirically on Zosyn. An infectious disease consultation has been obtained with Dr Mobley. We will follow recommendations of Gastroenterology and Infectious Disease. 2. Hypotension. This may be secondary to sepsis. Continue Zosyn as above. 3. Kaposi sarcoma. The patient is status post chemotherapy. 4. Castleman disease. 5. Antibiotics=ceftriaxone and flagyl per ID. 6. continue tamiflu 7. Fever-follow ID recs 8. S/P left axillary lymph node biopsy 9. S/P transfusion 1 unit PRBC 05/18/18. Adam Padron MD May 19, 2018 17:10
--- NOTE | 2018-05-19 19:42 | Consultation ---
History of Present Illness General Date patient seen: May 19, 2018 Reason for Hospitalization: Generalized Weakness Present Illness HPI 37 year old male with multiple medical comorbidities HIV, Kaposi's, Castleman's currently admitted for medical care and management. CT demonstrated multiple areas of large lymph nodes. needle biopsy performed from left axilla by radiology and path inconclusive. surgery called to evaluate for core biopsy vs lymph node biopsy. patient seen, chart reviewed, patient examined. states he is okay. no complaints. Allergies: Coded Allergies: No Known Allergies (Unverified , 10/21/17) Medication History Scheduled Azithromycin* (Zithromax*), 250 MG ORAL Q24H Cholecalciferol (Vitamin D3)* (Vitamin D*), 1,000 UNIT ORAL DAILY, (Reported) Dolutegravir Sodium (Tivicay), 50 MG ORAL DAILY, (Reported) Emtricitabine/Tenofovir 200-300MG* (Truvada 200-300MG*), 1 TAB ORAL DAILY, ( Reported) Mirtazapine* (Mirtazapine*), 15 MG ORAL BEDTIME No Known Medications* (NKM - No Known Medications*), 0 ., (Reported) Trimethoprim/Sulfamethoxazole (Bactrim Ds Tablet), 1 TAB ORAL DAILY Patient History History Provided By: Patient, Medical Record, PMD Healthcare decision maker Resuscitation status Full Code Advanced Directive on File No Past Medical/Surgical History Past Medical/Surgical History: (1) Dehydration (2) Diarrhea (3) Gastroenteritis (4) Electrolyte imbalance (5) Nausea & vomiting (6) Cyclic vomiting syndrome (7) Hepatitis B (8) Hepatitis C (9) Protein-calorie malnutrition, severe (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 (12) HIV disease (13) Septic shock (14) ATN (acute tubular necrosis) (15) Interstitial pneumonia (16) Sepsis (17) Cellulitis of left leg (18) CAP (community acquired pneumonia) Review of Systems Review of Symptoms General ROS: no weight loss or fever Psychological ROS: no depression or mood changes, no memory loss Ophthalmic ROS: no visual changes or eye irritation ENT ROS: no nasal congestion, hearing loss, dizziness Allergy and Immunology ROS: no allergic symptoms or urticaria Hematological and Lymphatic ROS: no swollen glands, unusual bleeding or bruising Endocrine ROS: no polyuria, polydipsia, weight changes, temperature intolerance Respiratory ROS: no cough, shortness of breath, or wheezing Cardiovascular ROS: no chest pain or dyspnea on exertion Gastrointestinal ROS: denies abdominal pain, no bright red blood in stool. Musculoskeletal ROS: no myalgias or arthralgias Neurological ROS: no TIA or stroke symptoms Dermatological ROS: no new or changing skin lesions, rashes or pruritis Physical Exam Physical Exam General appearance: alert, cooperative, no distress, appears stated age Head: Normocephalic, without obvious abnormality, atraumatic Eyes: conjunctivae/corneas clear. PERRL, EOM's intact. Fundi benign Throat: Lips, mucosa, and tongue normal. Teeth and gums normal Neck: supple, symmetrical, trachea midline, adenopathy, thyroid: not enlarged, symmetric, no tenderness/mass/nodules, no carotid bruit and no JVD Lungs: clear to auscultation bilaterally Heart: regular rate and rhythm, S1, S2 normal, no murmur, click, rub or gallop Abdomen: soft, non-tender. Bowel sounds normal. No masses, no organomegaly Extremities: extremities normal, atraumatic, no cyanosis or edema, axillary adenopathy as well as clavicular Pulses: 2+ and symmetric Skin: Skin color, texture, turgor normal. No rashes or lesions Neurologic: Grossly normal Last 24 Hour Vital Signs Date Time Temp Pulse Resp B/P (MAP) Pulse Ox O2 Delivery O2 Flow Rate FiO2 05/19/18 16:00 109 05/19/18 16:00 98.4 111 18 131/76 (94) 96 05/19/18 12:00 115 05/19/18 12:00 98.6 118 20 99/62 (74) 95 05/19/18 09:00 104 94/62 05/19/18 09:00 Room Air 05/19/18 08:00 98.8 104 18 94/62 (73) 96 05/19/18 08:00 104 05/19/18 04:00 121 05/19/18 04:00 98.0 111 16 94/61 (72) 97 05/19/18 00:00 97.6 124 18 110/64 (79) 99 05/19/18 00:00 121 05/18/18 21:20 127 107/60 05/18/18 21:00 Room Air 05/18/18 21:00 129 05/18/18 20:00 98.4 127 20 107/60 (76) 98 Intake and Output 05/18/18 05/19/18 19:00 07:00 Intake Total 1000 ml Output Total 800 ml Balance 200 ml Other 1000 ml Output Urine Total 800 ml # Voids 3 # Bowel Movements 1 3 Laboratory Tests Test 05/19/18 05:30 White Blood Count 4.9 K/UL (4.8-10.8) Red Blood Count 3.36 M/UL (4.70-6.10) L Hemoglobin 8.1 G/DL (14.2-18.0) L Hematocrit 25.3 % (42.0-52.0) L Mean Corpuscular Volume 75 FL (80-99) L Mean Corpuscular Hemoglobin 24.1 PG (27.0-31.0) L Mean Corpuscular Hemoglobin Concent 32.1 G/DL (32.0-36.0) Red Cell Distribution Width 18.0 % (11.6-14.8) H Platelet Count 91 K/UL (150-450) L Mean Platelet Volume 5.8 FL (6.5-10.1) L Neutrophils (%) (Auto) % (45.0-75.0) Lymphocytes (%) (Auto) % (20.0-45.0) Monocytes (%) (Auto) % (1.0-10.0) Eosinophils (%) (Auto) % (0.0-3.0) Basophils (%) (Auto) % (0.0-2.0) Differential Total Cells Counted 100 Neutrophils % (Manual) 66 % (45-75) Lymphocytes % (Manual) 21 % (20-45) Monocytes % (Manual) 6 % (1-10) Eosinophils % (Manual) 6 % (0-3) H Basophils % (Manual) 0 % (0-2) Band Neutrophils 1 % (0-8) Platelet Estimate Decreased L Platelet Morphology Normal Anisocytosis 1+ Microcytosis 1+ Erythrocyte Sedimentation Rate 108 MM/HR (0-15) H Sodium Level 133 MMOL/L (136-145) L Potassium Level 4.9 MMOL/L (3.5-5.1) Chloride Level 104 MMOL/L (98-107) Carbon Dioxide Level 21 MMOL/L (21-32) Anion Gap 8 mmol/L (5-15) Blood Urea Nitrogen 12 mg/dL (7-18) Creatinine 1.3 MG/DL (0.55-1.30) Estimat Glomerular Filtration Rate > 60 mL/min (>60) Glucose Level 95 MG/DL (74-106) Calcium Level 7.0 MG/DL (8.5-10.1) L Phosphorus Level 3.1 MG/DL (2.5-4.9) Magnesium Level 1.9 MG/DL (1.8-2.4) Total Bilirubin 0.2 MG/DL (0.2-1.0) Aspartate Amino Transf (AST/SGOT) 26 U/L (15-37) Alanine Aminotransferase (ALT/SGPT) 7 U/L (12-78) L Alkaline Phosphatase 54 U/L (46-116) C-Reactive Protein, Quantitative 16.2 mg/dL (0.00-0.90) H Total Protein 5.3 G/DL (6.4-8.2) L Albumin 0.8 G/DL (3.4-5.0) L Globulin 4.5 g/dL Albumin/Globulin Ratio 0.2 (1.0-2.7) L Ger-Lloyd DNA Quant copies/mL Pending Ger-Lloyd Quant PCR Plasma log10 Pending Height (Feet): 5 Height (Inches): 11.00 Weight (Pounds): 132 Medications Current Medications Medications (Trade) Dose Ordered Sig/Yessica Route PRN Reason Start Time Stop Time Status Last Admin Dose Admin Acetaminophen (Tylenol) 650 mg Q4H PRN ORAL Mild Pain/Temp > 100.5 05/17/18 00:00 06/12/18 11:59 05/17/18 08:42 Azithromycin (Zithromax) 1,200 mg ONCE A WEEK ORAL 05/20/18 18:00 05/27/18 17:59 Ceftriaxone Sodium 1 gm/ Dextrose 55 ml @ 110 mls/hr Q24H IVPB 05/17/18 15:00 05/22/18 14:59 05/19/18 14:30 Diphenoxylate HCl/ Atropine (Lomotil) 2.5 mg Q4H PRN ORAL Diarrhea 05/17/18 08:45 06/16/18 08:44 05/18/18 17:29 Dolutegravir Sodium (Tivicay) 50 mg DAILY ORAL 05/17/18 09:00 06/14/18 08:59 05/19/18 09:17 Folic Acid (Folate) 1 mg DAILY ORAL 05/17/18 09:00 06/14/18 09:29 05/19/18 09:17 Heparin Sodium (Porcine) (Heparin 5000 units/ml) 5,000 units EVERY 8 HOURS SUBQ 05/17/18 22:00 06/12/18 13:59 05/18/18 06:07 Iopamidol (Isovue-300 100ml) 100 ml NOW PRN INJ Radiology Procedure 05/17/18 12:45 06/16/18 12:44 Loperamide HCl (Imodium) 2 mg Q4H PRN ORAL Diarrhea 05/17/18 02:15 06/15/18 10:14 05/18/18 23:24 Metoprolol Tartrate (Lopressor) 50 mg Q12HR ORAL 05/17/18 09:00 06/12/18 05:59 05/18/18 21:20 Metronidazole (Flagyl) 500 mg Q8HR ORAL 05/17/18 06:00 05/22/18 13:59 05/19/18 14:30 Mirtazapine (Remeron) 15 mg BEDTIME ORAL 05/17/18 21:00 06/12/18 20:59 05/18/18 21:16 Morphine Sulfate (Morphine Sulfate) 2 mg Q4H PRN IVP Moderate Pain (Pain Scale 4-6) 05/17/18 00:15 05/20/18 12:14 05/19/18 06:43 Morphine Sulfate (Morphine Sulfate) 4 mg Q4H PRN IVP Severe Pain (Pain Scale 7-10) 05/17/18 00:15 05/20/18 12:14 05/19/18 19:03 Ondansetron HCl (Zofran) 4 mg Q4H PRN IVP Nausea & Vomiting 05/17/18 00:15 06/12/18 12:14 05/19/18 19:03 Patient Own Medication (Patient's Own Med) 1 ea DAILY ORAL 05/17/18 09:00 06/12/18 19:59 05/19/18 09:17 Trimethoprim/ Sulfamethoxazole (Bactrim-DS) 1 tab DAILY ORAL 05/18/18 09:00 05/25/18 08:59 05/19/18 09:17 Vitamin D (Vitamin D) 1,000 intlu DAILY ORAL 05/17/18 09:00 06/12/18 08:59 05/19/18 09:17 Assessment/Plan Problem List: (1) Lymphadenopathy Assessment & Plan: Needle biopsy inconclusive Needs core or lymph node biopsy discussed with patient he is unsure if he wants biopsy as he just had needle biopsy and does not want another biopsy spent fair amount of time at bedside discussing his history, medical condition, and findings. rational for biopsy given. recommendations given patient states he will think about it will follow up thank you ICD Codes: R59.1 - Generalized enlarged lymph nodes SNOMED: 53325033 (2) Lymphadenopathy, axillary ICD Codes: R59.0 - Localized enlarged lymph nodes SNOMED: 385325911 (3) HIV disease ICD Codes: B20 - Human immunodeficiency virus [HIV] disease SNOMED: 06651790 (4) Kaposi disease ICD Codes: Q82.1 - Xeroderma pigmentosum SNOMED: 66776441 (5) Castleman disease ICD Codes: D47.Z2 - Castleman disease SNOMED: 021134413, [id number] Walker Solitario May 19, 2018 19:42
--- NOTE | 2018-05-19 19:55 | NUR ---
HAND-OFF: Report given to Marija/RN, Patient is asleep. No distress/SOB noted at this time. Endorsed plan of care..
[2018-05-19 20:00] VITALS: BP 105/61
--- NOTE | 2018-05-19 20:00 | NUR ---
NURSE NOTES: RECEIVED PATIENT ASLEEP, AROUSABLE, NO COMPLAINTS OF PAIN AT THIS TIME. FALL PRECAUTIONS IN PLACE: CALL LIGHT, BEDSIDE TABLE, URINAL AND COMMODE WITHIN REACH; BED IN LOW POSITION AND BED ALARM ON. WILL CONTINUE WITH PLAN OF CARE.
[2018-05-19] MEDS: Loperamide 2mg cap ORAL PRN (23:24)
[2018-05-20] VITALS: BP 88/59
[2018-05-20 04:00] VITALS: BP 85/59
[2018-05-20] MEDS: Loperamide 2mg cap ORAL PRN (05:49)
[2018-05-20] MEDS: metroNIDAZOLE 500mg tab ORAL SCH ×3 (05:49→21:23)
[2018-05-20] MEDS: Heparin 5000 units/ml inj SUBQ SCH ×3 (05:50→21:09)
[2018-05-20 06:25] LABS: HEMATOCRIT 23.6 % (42.0-52.0); HEMOGLOBIN 7.6 G/DL (14.2-18.0); MEAN CORPUSCULAR VOLUME 75 FL (80-99); PLATELET COUNT 72 K/UL (150-450); RED BLOOD COUNT 3.14 M/UL (4.70-6.10); RED CELL DISTRIBUTION WIDTH 17.6 % (11.6-14.8); WHITE BLOOD COUNT 4.6 K/UL (4.8-10.8)
[2018-05-20 07:04] LABS: ANION GAP 6 mmol/L (5-15); BLOOD UREA NITROGEN 18 mg/dL (7-18); CALCIUM 6.9 MG/DL (8.5-10.1); CARBON DIOXIDE 22 MMOL/L (21-32); CHLORIDE 103 MMOL/L (98-107); CREATININE 1.2 MG/DL (0.55-1.30); POTASSIUM 4.5 MMOL/L (3.5-5.1); SODIUM 131 MMOL/L (136-145)
--- NOTE | 2018-05-20 07:39 | NUR ---
HAND-OFF: Report given to TRES GUARDADO. PATIENT RESTING IN BED, NO SIGNS OF DISTRESS NOTED.
--- NOTE | 2018-05-20 07:40 | NUR ---
NURSE NOTES: Received patient from TRES Dutton in bed resting, denies any pain. Patient is alert and oriented x4, able to make needs known. Noted RFA IV, intact and patemt. Bed is in lowest level, brakes engaged for safety. Call light is within reach. Will continue with the plan of care.
[2018-05-20 08:00] VITALS: BP 103/64
[2018-05-20] MEDS: Metoprolol Tartrate 50mg tab ORAL SCH ×2 (09:00→21:00)
[2018-05-20] MEDS: Bactrim-DS 1 tab ORAL SCH (09:08)
[2018-05-20] MEDS: Vitamin D 1000 IU Tab ORAL SCH (09:09)
--- NOTE | 2018-05-20 09:10 | Infectious Diseases Prog Note ---
Assessment/Plan Assessment/Plan SEvere sepsis Fever- r/o opportunistic infection (ie CMV, MAC, recurrence Castleman) Diffuse lymphadenopathy- Ddx: CMV disease (ie colitis), Diffuse MAC, recurrente Castleman, HIV related, lymphoma -05/18 s/p L axillary lymph node biopsy -path p -flow cytometry n eg -bacterial cx NTD; fungal, viral and AFB p -CT chest: Mediastinal, axillary, and supraclavicular lymphadenopathy, enlarged compared to the prior CT of the chest. Largest left axillary node measures 3.4 x 2.4 cm. Largest supraclavicular node on the left measures 3.8 x 2.8 cm. Largest mediastinal nodes include a 2.2 x 1.6 cm pretracheal node and a 2.3 x 1.6 cm subcarinal node. Small layering right pleural effusion with fluid in the minor fissure. Kasie-bronchovascular groundglass haziness and nodularity in the right lower lobe. Scattered paraseptal emphysematous changes, predominantly in the upper lung zones. -CT abd/p: Diffuse edema and haziness throughout the mesenteric root. Not significantly changed compared to the visualized portions of the mesenteric root in the prior CT of the chest dated 10/22/17. Mesenteric, retroperitoneal, and inguinal lymphadenopathy. Largest retroperitoneal node measures 3.1 x 2.5 x 2.0 cm to left of the IVC (series 8 image 56, series 10 image 23). Largest left inguinal left node measures 2.9 x 2.5 cm (series 8 image 90). Mild fluid distention and air-fluid levels throughout the colon, which may suggest mild colitis and/or diarrheal disease. No evidence of bowel obstruction. Cholelithiasis without gallbladder wall thickening or ductal dilatation. Scattered subcentimeter hypodensities throughout the spleen, possibly tiny simple cysts. Subcentimeter simple-appearing left renal cortical cysts. Mild urinary bladder wall thickening, most likely related to underdistention. -CT head: . Opacification of the right maxillary sinus, right frontal sinus , and mucosal thickening throughout the ethmoid air cells and left maxillary sinus, suggestive of sinusitis. Partial opacification of the inferior posterior aspect of the left mastoid air cells, suggesting small left mastoid effusion. -Bcx NTD -CXR: No acute findings -Neg: Infl sc, Cr Ag No leukocytosis Nausea/vomiting/diarrhea -Cdiff neg -stool cx normal phi HIV on ARV (dx 1999)- on Truvada and Dolutegravir, now AIDS -04/2018 HIV VL p, Cd4 64 (9.1%); VL 100 ?decrease due to non compliance, however low viremia (will expect higher viremia if non compliance) -10/2017 HIV VL ND, CD4 87 (12.4%) -09/01/17 - CD4 192 and VL - ND (Out Side labs) -no hx of resistance ; previously on Truvada, Reyataz and Norvir -Has been above 200 in the past. Came down with Chemo REENA, improving Microcytic anemia Thrombocytopenia hx pancreatitis 10/2017 - 10/22/17- CT show reticular opacity and significant lymphadenopathy 10/23/17 - CT abd/pel Lymphadenopathy, Enlarged Pancrease mild B/L hydronephrosis -Blasto, Histo, CrAg neg 11/21/16 - Quantiferon negative (Out Side lab) hx of Kaposi's sarcoma/Castleman's disease s/p chemotherapy - S/P Chemo ending 07/17/17 Last PET 08/12/17 - show stable/not worsening lymphadenopathy Hep C+ hx of Chronic Hep B, VL <15 09/01/17 hx of DVT Plan: - Continue Ceftriaxone #4 and Flagyl #6/7 for colitis -05/15/18 SP empiric IV Vancomycin #4 and switch empiric Zosyn #3 to Ceftriaxone and Flagyl -05/16/18 SP Tamiflu #4 - 05/12 SP Cefepime x1 -f/u cx -Monitor CBC/CMP, temperatures -f/u AFB bcx, CMV PCR, -Histoplasma ag urine, COcci ab, parasite stool studies -aspiration precautions -GI f/u -fu axillary lymph node biopsy -pathology and for cultures (AFB, fungal, bacterial, viral), MTB PCR - If lymph node biopsy unrevealing, may need bone marrow biopsy Thank you for this consultation. Will continue to follow along with you. Subjective Allergies: Coded Allergies: No Known Allergies (Unverified , 10/21/17) Subjective BM x 6 Patient afebrile Satting well on RA No leukocytosis Objective Vital Signs Last 24 Hour Vital Signs Date Time Temp Pulse Resp B/P (MAP) Pulse Ox O2 Delivery O2 Flow Rate FiO2 05/20/18 04:00 98.2 74 18 85/59 (68) 98 05/20/18 04:00 105 05/20/18 00:00 99.3 98 18 88/59 (69) 96 05/20/18 00:00 97 05/19/18 21:43 140 103/61 05/19/18 21:00 Room Air 05/19/18 20:00 97.6 140 18 105/61 (76) 98 05/19/18 20:00 121 05/19/18 16:00 109 05/19/18 16:00 98.4 111 18 131/76 (94) 96 05/19/18 12:00 115 05/19/18 12:00 98.6 118 20 99/62 (74) 95 Height (Feet): 5 Height (Inches): 11.00 Weight (Pounds): 133 Objective General: NAD, Layin g in bed Head: NCAT PERRL, EOMI Respiratory: CTAB Cardiovascular: RRR, S1, S2 Gastrointestinal: Soft, NT, ND, + BS Neurologic: alert, oriented x3, responsive Microbiology Date/Time Source Procedure Growth Status 05/18/18 14:50 Lymph Node Gram Stain - Final Resulted 05/18/18 14:50 Lymph Node Aerobic Culture - Preliminary NO GROWTH Resulted 05/18/18 14:50 Lymph Node Anaerobic Culture - Preliminary NO GROWTH Resulted Laboratory Tests Test 05/20/18 05:10 White Blood Count 4.6 K/UL (4.8-10.8) L Red Blood Count 3.14 M/UL (4.70-6.10) L Hemoglobin 7.6 G/DL (14.2-18.0) L Hematocrit 23.6 % (42.0-52.0) L Mean Corpuscular Volume 75 FL (80-99) L Mean Corpuscular Hemoglobin 24.1 PG (27.0-31.0) L Mean Corpuscular Hemoglobin Concent 32.0 G/DL (32.0-36.0) Red Cell Distribution Width 17.6 % (11.6-14.8) H Platelet Count 72 K/UL (150-450) L Mean Platelet Volume 5.5 FL (6.5-10.1) L Neutrophils (%) (Auto) % (45.0-75.0) Lymphocytes (%) (Auto) % (20.0-45.0) Monocytes (%) (Auto) % (1.0-10.0) Eosinophils (%) (Auto) % (0.0-3.0) Basophils (%) (Auto) % (0.0-2.0) Differential Total Cells Counted 100 Neutrophils % (Manual) 67 % (45-75) Lymphocytes % (Manual) 25 % (20-45) Monocytes % (Manual) 8 % (1-10) Eosinophils % (Manual) 0 % (0-3) Basophils % (Manual) 0 % (0-2) Band Neutrophils 0 % (0-8) Platelet Estimate Decreased L Platelet Morphology Normal Hypochromasia 1+ Anisocytosis 1+ Sodium Level 131 MMOL/L (136-145) L Potassium Level 4.5 MMOL/L (3.5-5.1) Chloride Level 103 MMOL/L (98-107) Carbon Dioxide Level 22 MMOL/L (21-32) Anion Gap 6 mmol/L (5-15) Blood Urea Nitrogen 18 mg/dL (7-18) Creatinine 1.2 MG/DL (0.55-1.30) Estimat Glomerular Filtration Rate > 60 mL/min (>60) Glucose Level 97 MG/DL (74-106) Calcium Level 6.9 MG/DL (8.5-10.1) L Current Medications Medications (Trade) Dose Ordered Sig/Yessica Route PRN Reason Start Time Stop Time Status Last Admin Dose Admin Acetaminophen (Tylenol) 650 mg Q4H PRN ORAL Mild Pain/Temp > 100.5 05/17/18 00:00 06/12/18 11:59 05/17/18 08:42 Azithromycin (Zithromax) 1,200 mg ONCE A WEEK ORAL 05/20/18 18:00 05/27/18 17:59 Ceftriaxone Sodium 1 gm/ Dextrose 55 ml @ 110 mls/hr Q24H IVPB 05/17/18 15:00 05/22/18 14:59 05/19/18 14:30 Diphenoxylate HCl/ Atropine (Lomotil) 2.5 mg Q4H PRN ORAL Diarrhea 05/17/18 08:45 06/16/18 08:44 05/18/18 17:29 Dolutegravir Sodium (Tivicay) 50 mg DAILY ORAL 05/17/18 09:00 06/14/18 08:59 05/19/18 09:17 Folic Acid (Folate) 1 mg DAILY ORAL 05/17/18 09:00 06/14/18 09:29 05/19/18 09:17 Heparin Sodium (Porcine) (Heparin 5000 units/ml) 5,000 units EVERY 8 HOURS SUBQ 05/17/18 22:00 06/12/18 13:59 05/18/18 06:07 Iopamidol (Isovue-300 100ml) 100 ml NOW PRN INJ Radiology Procedure 05/17/18 12:45 06/16/18 12:44 Loperamide HCl (Imodium) 2 mg Q4H PRN ORAL Diarrhea 05/17/18 02:15 06/15/18 10:14 05/20/18 05:49 Metoprolol Tartrate (Lopressor) 50 mg Q12HR ORAL 05/17/18 09:00 06/12/18 05:59 05/19/18 21:43 Metronidazole (Flagyl) 500 mg Q8HR ORAL 05/17/18 06:00 05/22/18 13:59 05/20/18 05:49 Mirtazapine (Remeron) 15 mg BEDTIME ORAL 05/17/18 21:00 06/12/18 20:59 05/19/18 21:42 Morphine Sulfate (Morphine Sulfate) 2 mg Q4H PRN IVP Moderate Pain (Pain Scale 4-6) 05/17/18 00:15 05/20/18 12:14 05/19/18 06:43 Morphine Sulfate (Morphine Sulfate) 4 mg Q4H PRN IVP Severe Pain (Pain Scale 7-10) 05/17/18 00:15 05/20/18 12:14 05/19/18 19:03 Ondansetron HCl (Zofran) 4 mg Q4H PRN IVP Nausea & Vomiting 05/17/18 00:15 06/12/18 12:14 05/19/18 19:03 Patient Own Medication (Patient's Own Med) 1 ea DAILY ORAL 05/17/18 09:00 06/12/18 19:59 05/19/18 09:17 Trimethoprim/ Sulfamethoxazole (Bactrim-DS) 1 tab DAILY ORAL 05/18/18 09:00 05/25/18 08:59 05/19/18 09:17 Vitamin D (Vitamin D) 1,000 intlu DAILY ORAL 05/17/18 09:00 06/12/18 08:59 05/19/18 09:17 Sterling Ortiz MD May 20, 2018 09:10
[2018-05-20] MEDS: Dolutegravir Sodium 50mg tab ORAL SCH (09:11)
--- NOTE | 2018-05-20 10:57 | GI Progress Note ---
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 SNOMED: 94341856 (2) Cyclic vomiting syndrome ICD Codes: G43.A0 - Cyclical vomiting, not intractable SNOMED: 71143618 (3) Nausea & vomiting ICD Codes: R11.2 - Nausea with vomiting, unspecified SNOMED: 03234322 (4) Electrolyte imbalance ICD Codes: E87.8 - Other disorders of electrolyte and fluid balance, not elsewhere classified SNOMED: 716088909 (5) Diarrhea ICD Codes: R19.7 - Diarrhea, unspecified SNOMED: 56707952 (6) Gastroenteritis ICD Codes: K52.9 - Noninfective gastroenteritis and colitis, unspecified SNOMED: 44171625 (7) Dehydration ICD Codes: E86.0 - Dehydration SNOMED: 50187240 Status: stable Status Narrative Discussed with Dr. Grande. Assessment/Plan Recent history of unremarkable endoscopy and colonoscopy Marijuana use Kaposi Disease s/p chemotherapy Microcytic anemia C. difficile is negative stool culture negative O&P negative CD4 count of 64, will check for Cryptosporidium advance diet hold Venofer given elevated ferritin levels Zofran as needed OB stool r/o GI bleed monitor H&H, prn transfusions Lomotil as needed ppi IV and p.o. hydration plus electrolyte correction fu labs Will consider colonoscopy if patient has persistent diarrhea The patient was seen and examined at bedside and all new and available data was reviewed in the patients chart. I agree with the above findings, impression and plan. (Patient seen earlier today. Signature stamp does not reflect patient encounter time.). - Michael Grande MD Subjective Subjective Patient states his diarrhea has gotten better, stools more formed Refusing colonoscopy at this time Objective Last 24 Hour Vital Signs Date Time Temp Pulse Resp B/P (MAP) Pulse Ox O2 Delivery O2 Flow Rate FiO2 05/20/18 09:00 Room Air 05/20/18 08:00 115 05/20/18 08:00 97.6 116 18 103/64 (77) 98 05/20/18 04:00 98.2 74 18 85/59 (68) 98 05/20/18 04:00 105 05/20/18 00:00 99.3 98 18 88/59 (69) 96 05/20/18 00:00 97 05/19/18 21:43 140 103/61 05/19/18 21:00 Room Air 05/19/18 20:00 97.6 140 18 105/61 (76) 98 05/19/18 20:00 121 05/19/18 16:00 109 05/19/18 16:00 98.4 111 18 131/76 (94) 96 05/19/18 12:00 115 05/19/18 12:00 98.6 118 20 99/62 (74) 95 Intake and Output 05/19/18 05/20/18 19:00 07:00 Intake Total 360 ml 240 ml Output Total 850 ml 450 ml Balance -490 ml -210 ml Intake Oral 360 ml 240 ml Output Urine Total 850 ml 450 ml # Bowel Movements 3 3 Laboratory Tests Test 05/20/18 05:10 White Blood Count 4.6 K/UL (4.8-10.8) L Red Blood Count 3.14 M/UL (4.70-6.10) L Hemoglobin 7.6 G/DL (14.2-18.0) L Hematocrit 23.6 % (42.0-52.0) L Mean Corpuscular Volume 75 FL (80-99) L Mean Corpuscular Hemoglobin 24.1 PG (27.0-31.0) L Mean Corpuscular Hemoglobin Concent 32.0 G/DL (32.0-36.0) Red Cell Distribution Width 17.6 % (11.6-14.8) H Platelet Count 72 K/UL (150-450) L Mean Platelet Volume 5.5 FL (6.5-10.1) L Neutrophils (%) (Auto) % (45.0-75.0) Lymphocytes (%) (Auto) % (20.0-45.0) Monocytes (%) (Auto) % (1.0-10.0) Eosinophils (%) (Auto) % (0.0-3.0) Basophils (%) (Auto) % (0.0-2.0) Differential Total Cells Counted 100 Neutrophils % (Manual) 67 % (45-75) Lymphocytes % (Manual) 25 % (20-45) Monocytes % (Manual) 8 % (1-10) Eosinophils % (Manual) 0 % (0-3) Basophils % (Manual) 0 % (0-2) Band Neutrophils 0 % (0-8) Platelet Estimate Decreased L Platelet Morphology Normal Hypochromasia 1+ Anisocytosis 1+ Sodium Level 131 MMOL/L (136-145) L Potassium Level 4.5 MMOL/L (3.5-5.1) Chloride Level 103 MMOL/L (98-107) Carbon Dioxide Level 22 MMOL/L (21-32) Anion Gap 6 mmol/L (5-15) Blood Urea Nitrogen 18 mg/dL (7-18) Creatinine 1.2 MG/DL (0.55-1.30) Estimat Glomerular Filtration Rate > 60 mL/min (>60) Glucose Level 97 MG/DL (74-106) Calcium Level 6.9 MG/DL (8.5-10.1) L Height (Feet): 5 Height (Inches): 11.00 Weight (Pounds): 133 General Appearance: WD/WN, no apparent distress, alert Cardiovascular: normal rate Respiratory/Chest: normal breath sounds, no respiratory distress Abdominal Exam: normal bowel sounds, non tender, soft Extremities: normal range of motion, non-tender Simeon Fall INFORMATION TECHNOLOGY DATA ANALYST May 20, 2018 10:56
--- NOTE | 2018-05-20 11:40 | Pulmonology Progress Note ---
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 CT chest reviewed: multiple axillary and hilar enlarged nodules., I asked the general surgeon for excisional biopsy d/w pathologist, the specimen form the LN has lots of plasma cells, awaiting more staining Subjective ROS Limited/Unobtainable: No Constitutional: Reports: no symptoms HEENT: Repors: no symptoms Allergies: Coded Allergies: No Known Allergies (Unverified , 10/21/17) Objective Last 24 Hour Vital Signs Date Time Temp Pulse Resp B/P (MAP) Pulse Ox O2 Delivery O2 Flow Rate FiO2 05/20/18 09:00 Room Air 05/20/18 08:00 115 05/20/18 08:00 97.6 116 18 103/64 (77) 98 05/20/18 04:00 98.2 74 18 85/59 (68) 98 05/20/18 04:00 105 05/20/18 00:00 99.3 98 18 88/59 (69) 96 05/20/18 00:00 97 05/19/18 21:43 140 103/61 05/19/18 21:00 Room Air 05/19/18 20:00 97.6 140 18 105/61 (76) 98 05/19/18 20:00 121 05/19/18 16:00 109 05/19/18 16:00 98.4 111 18 131/76 (94) 96 05/19/18 12:00 115 05/19/18 12:00 98.6 118 20 99/62 (74) 95 Intake and Output 05/19/18 05/20/18 19:00 07:00 Intake Total 360 ml 240 ml Output Total 850 ml 450 ml Balance -490 ml -210 ml Intake Oral 360 ml 240 ml Output Urine Total 850 ml 450 ml # Bowel Movements 3 3 Objective General Appearance: cachetic HEENT: normocephalic, atraumatic Respiratory/Chest: chest wall non-tender, lungs clear Cardiovascular: normal peripheral pulses, normal rate Abdomen: normal bowel sounds, no organomegaly Genitourinary: normal external genitalia Extremities: no clubbing Neurologic/Psychiatric: aml analyst II-XII grossly normal Microbiology Date/Time Source Procedure Growth Status 05/18/18 14:50 Lymph Node Gram Stain - Final Resulted 05/18/18 14:50 Lymph Node Aerobic Culture - Preliminary NO GROWTH AFTER 24 HOURS Resulted 05/18/18 14:50 Lymph Node Anaerobic Culture - Preliminary NO GROWTH AFTER 24 HOURS Resulted Laboratory Tests 05/20/18 05:10: White Blood Count 4.6L, Red Blood Count 3.14L, Hemoglobin 7.6L, Hematocrit 23.6L , Mean Corpuscular Volume 75L, Mean Corpuscular Hemoglobin 24.1L, Mean Corpuscular Hemoglobin Concent 32.0, Red Cell Distribution Width 17.6H, Platelet Count 72L, Mean Platelet Volume 5.5L, Neutrophils (%) (Auto) , Lymphocytes (%) (Auto) , Monocytes (%) (Auto) , Eosinophils (%) (Auto) , Basophils (%) (Auto) , Differential Total Cells Counted 100, Neutrophils % ( Manual) 67, Lymphocytes % (Manual) 25, Monocytes % (Manual) 8, Eosinophils % ( Manual) 0, Basophils % (Manual) 0, Band Neutrophils 0, Platelet Estimate DecreasedL, Platelet Morphology Normal, Hypochromasia 1+, Anisocytosis 1+, Sodium Level 131L, Potassium Level 4.5, Chloride Level 103, Carbon Dioxide Level 22, Anion Gap 6, Blood Urea Nitrogen 18, Creatinine 1.2, Estimat Glomerular Filtration Rate > 60, Glucose Level 97, Calcium Level 6.9L Current Medications Medications (Trade) Dose Ordered Sig/Yessica Route PRN Reason Start Time Stop Time Status Last Admin Dose Admin Acetaminophen (Tylenol) 650 mg Q4H PRN ORAL Mild Pain/Temp > 100.5 05/17/18 00:00 06/12/18 11:59 05/17/18 08:42 Azithromycin (Zithromax) 1,200 mg ONCE A WEEK ORAL 05/20/18 18:00 05/27/18 17:59 Ceftriaxone Sodium 1 gm/ Dextrose 55 ml @ 110 mls/hr Q24H IVPB 05/17/18 15:00 05/22/18 14:59 05/19/18 14:30 Diphenoxylate HCl/ Atropine (Lomotil) 2.5 mg Q4H PRN ORAL Diarrhea 05/17/18 08:45 06/16/18 08:44 05/18/18 17:29 Dolutegravir Sodium (Tivicay) 50 mg DAILY ORAL 05/17/18 09:00 06/14/18 08:59 05/20/18 09:11 Folic Acid (Folate) 1 mg DAILY ORAL 05/17/18 09:00 06/14/18 09:29 05/20/18 09:08 Heparin Sodium (Porcine) (Heparin 5000 units/ml) 5,000 units EVERY 8 HOURS SUBQ 05/17/18 22:00 06/12/18 13:59 05/18/18 06:07 Iopamidol (Isovue-300 100ml) 100 ml NOW PRN INJ Radiology Procedure 05/17/18 12:45 06/16/18 12:44 Loperamide HCl (Imodium) 2 mg Q4H PRN ORAL Diarrhea 05/17/18 02:15 06/15/18 10:14 05/20/18 05:49 Metoprolol Tartrate (Lopressor) 50 mg Q12HR ORAL 05/17/18 09:00 06/12/18 05:59 05/19/18 21:43 Metronidazole (Flagyl) 500 mg Q8HR ORAL 05/17/18 06:00 05/22/18 13:59 05/20/18 05:49 Mirtazapine (Remeron) 15 mg BEDTIME ORAL 05/17/18 21:00 06/12/18 20:59 05/19/18 21:42 Morphine Sulfate (Morphine Sulfate) 2 mg Q4H PRN IVP Moderate Pain (Pain Scale 4-6) 05/17/18 00:15 05/20/18 12:14 05/19/18 06:43 Morphine Sulfate (Morphine Sulfate) 4 mg Q4H PRN IVP Severe Pain (Pain Scale 7-10) 05/17/18 00:15 05/20/18 12:14 05/19/18 19:03 Ondansetron HCl (Zofran) 4 mg Q4H PRN IVP Nausea & Vomiting 05/17/18 00:15 06/12/18 12:14 05/19/18 19:03 Patient Own Medication (Patient's Own Med) 1 ea DAILY ORAL 05/17/18 09:00 06/12/18 19:59 05/20/18 09:11 Trimethoprim/ Sulfamethoxazole (Bactrim-DS) 1 tab DAILY ORAL 05/18/18 09:00 05/25/18 08:59 05/20/18 09:08 Vitamin D (Vitamin D) 1,000 intlu DAILY ORAL 05/17/18 09:00 06/12/18 08:59 05/20/18 09:09 Ya Hester MD May 20, 2018 11:40
[2018-05-20 12:00] VITALS: BP 93/57
--- NOTE | 2018-05-20 15:22 | Surgery Progress Note ---
Surgery Progress Note Subjective Additional Comments no acute events. comfortable. path pending. states he is well Objective Last 24 Hour Vital Signs Date Time Temp Pulse Resp B/P (MAP) Pulse Ox O2 Delivery O2 Flow Rate FiO2 05/20/18 12:00 98.3 95 18 93/57 (69) 100 05/20/18 12:00 114 05/20/18 09:00 Room Air 05/20/18 08:00 115 05/20/18 08:00 97.6 116 18 103/64 (77) 98 05/20/18 04:00 98.2 74 18 85/59 (68) 98 05/20/18 04:00 105 05/20/18 00:00 99.3 98 18 88/59 (69) 96 05/20/18 00:00 97 05/19/18 21:43 140 103/61 05/19/18 21:00 Room Air 05/19/18 20:00 97.6 140 18 105/61 (76) 98 05/19/18 20:00 121 05/19/18 16:00 109 05/19/18 16:00 98.4 111 18 131/76 (94) 96 I&O Intake and Output 05/19/18 05/20/18 19:00 07:00 Intake Total 360 ml 240 ml Output Total 850 ml 450 ml Balance -490 ml -210 ml Intake Oral 360 ml 240 ml Output Urine Total 850 ml 450 ml # Bowel Movements 3 3 Drains: none Cardiovascular: RSR Respiratory: clear Abdomen: soft, flat, non-tender, non-distended Extremities: no tenderness, no cyanosis, other Laboratory Tests Test 05/20/18 05:10 White Blood Count 4.6 K/UL (4.8-10.8) L Red Blood Count 3.14 M/UL (4.70-6.10) L Hemoglobin 7.6 G/DL (14.2-18.0) L Hematocrit 23.6 % (42.0-52.0) L Mean Corpuscular Volume 75 FL (80-99) L Mean Corpuscular Hemoglobin 24.1 PG (27.0-31.0) L Mean Corpuscular Hemoglobin Concent 32.0 G/DL (32.0-36.0) Red Cell Distribution Width 17.6 % (11.6-14.8) H Platelet Count 72 K/UL (150-450) L Mean Platelet Volume 5.5 FL (6.5-10.1) L Neutrophils (%) (Auto) % (45.0-75.0) Lymphocytes (%) (Auto) % (20.0-45.0) Monocytes (%) (Auto) % (1.0-10.0) Eosinophils (%) (Auto) % (0.0-3.0) Basophils (%) (Auto) % (0.0-2.0) Differential Total Cells Counted 100 Neutrophils % (Manual) 67 % (45-75) Lymphocytes % (Manual) 25 % (20-45) Monocytes % (Manual) 8 % (1-10) Eosinophils % (Manual) 0 % (0-3) Basophils % (Manual) 0 % (0-2) Band Neutrophils 0 % (0-8) Platelet Estimate Decreased L Platelet Morphology Normal Hypochromasia 1+ Anisocytosis 1+ Sodium Level 131 MMOL/L (136-145) L Potassium Level 4.5 MMOL/L (3.5-5.1) Chloride Level 103 MMOL/L (98-107) Carbon Dioxide Level 22 MMOL/L (21-32) Anion Gap 6 mmol/L (5-15) Blood Urea Nitrogen 18 mg/dL (7-18) Creatinine 1.2 MG/DL (0.55-1.30) Estimat Glomerular Filtration Rate > 60 mL/min (>60) Glucose Level 97 MG/DL (74-106) Calcium Level 6.9 MG/DL (8.5-10.1) L Plan Problems: (1) Lymphadenopathy Assessment & Plan: Needle biopsy inconclusive Needs core or lymph node biopsy discussed with patient he is unsure if he wants biopsy as he just had needle biopsy and does not want another biopsy spent fair amount of time at bedside discussing his history, medical condition, and findings. rational for biopsy given. recommendations given patient states he will think about it will follow up thank you (2) Lymphadenopathy, axillary (3) HIV disease (4) Kaposi disease (5) Castleman disease Walker Solitario May 20, 2018 15:22
[2018-05-20] MEDS: cefTRIAXone 1 GM in D5W 55 ML IVPB SCH (15:49)
[2018-05-20 16:00] VITALS: BP 95/58
[2018-05-20] MEDS ORDERED: Azithromycin 600mg Tab ORAL SCH (18:00)
--- NOTE | 2018-05-20 18:30 | Internal Med Progress Note ---
Subjective Date of Service: May 20, 2018 Physician Name Adam Padron Attending Physician Alberto Gtz MD Current Medications Medications (Trade) Dose Ordered Sig/Yessica Route PRN Reason Start Time Stop Time Status Last Admin Dose Admin Acetaminophen (Tylenol) 650 mg Q4H PRN ORAL Mild Pain/Temp > 100.5 05/17/18 00:00 06/12/18 11:59 05/17/18 08:42 Azithromycin (Zithromax) 1,200 mg ONCE A WEEK ORAL 05/20/18 18:00 05/27/18 17:59 Ceftriaxone Sodium 1 gm/ Dextrose 55 ml @ 110 mls/hr Q24H IVPB 05/17/18 15:00 05/22/18 14:59 05/20/18 15:49 Diphenoxylate HCl/ Atropine (Lomotil) 2.5 mg Q4H PRN ORAL Diarrhea 05/17/18 08:45 06/16/18 08:44 05/18/18 17:29 Dolutegravir Sodium (Tivicay) 50 mg DAILY ORAL 05/17/18 09:00 06/14/18 08:59 05/20/18 09:11 Folic Acid (Folate) 1 mg DAILY ORAL 05/17/18 09:00 06/14/18 09:29 05/20/18 09:08 Heparin Sodium (Porcine) (Heparin 5000 units/ml) 5,000 units EVERY 8 HOURS SUBQ 05/17/18 22:00 06/12/18 13:59 05/18/18 06:07 Iopamidol (Isovue-300 100ml) 100 ml NOW PRN INJ Radiology Procedure 05/17/18 12:45 06/16/18 12:44 Loperamide HCl (Imodium) 2 mg Q4H PRN ORAL Diarrhea 05/17/18 02:15 06/15/18 10:14 05/20/18 05:49 Metoprolol Tartrate (Lopressor) 50 mg Q12HR ORAL 05/17/18 09:00 06/12/18 05:59 05/19/18 21:43 Metronidazole (Flagyl) 500 mg Q8HR ORAL 05/17/18 06:00 05/22/18 13:59 05/20/18 13:28 Mirtazapine (Remeron) 15 mg BEDTIME ORAL 05/17/18 21:00 06/12/18 20:59 05/19/18 21:42 Ondansetron HCl (Zofran) 4 mg Q4H PRN IVP Nausea & Vomiting 05/17/18 00:15 06/12/18 12:14 05/19/18 19:03 Patient Own Medication (Patient's Own Med) 1 ea DAILY ORAL 05/17/18 09:00 06/12/18 19:59 05/20/18 09:11 Trimethoprim/ Sulfamethoxazole (Bactrim-DS) 1 tab DAILY ORAL 05/18/18 09:00 05/25/18 08:59 05/20/18 09:08 Vitamin D (Vitamin D) 1,000 intlu DAILY ORAL 05/17/18 09:00 06/12/18 08:59 05/20/18 09:09 Allergies: Coded Allergies: No Known Allergies (Unverified , 10/21/17) ROS Limited/Unobtainable: No Constitutional: Reports: no symptoms HEENT: Reports: no symptoms Cardiovascular: Reports: no symptoms Respiratory: Reports: no symptoms Gastrointestinal/Abdominal: Reports: no symptoms Genitourinary: Reports: no symptoms Neurologic/Psychiatric: Reports: no symptoms Subjective 37 YO M admitted with nausea, vomiting and diarrhea. Now hypotension. Cover for Int Med-Dr Gtz. S/P left axillary lymph node biopsy 05/18/18 Objective Last Vital Signs Date Time Temp Pulse Resp B/P (MAP) Pulse Ox O2 Delivery O2 Flow Rate FiO2 05/20/18 16:00 98.9 111 18 95/58 (70) 100 05/20/18 09:00 Room Air Laboratory Tests Test 05/20/18 05:10 White Blood Count 4.6 K/UL (4.8-10.8) L Red Blood Count 3.14 M/UL (4.70-6.10) L Hemoglobin 7.6 G/DL (14.2-18.0) L Hematocrit 23.6 % (42.0-52.0) L Mean Corpuscular Volume 75 FL (80-99) L Mean Corpuscular Hemoglobin 24.1 PG (27.0-31.0) L Mean Corpuscular Hemoglobin Concent 32.0 G/DL (32.0-36.0) Red Cell Distribution Width 17.6 % (11.6-14.8) H Platelet Count 72 K/UL (150-450) L Mean Platelet Volume 5.5 FL (6.5-10.1) L Neutrophils (%) (Auto) % (45.0-75.0) Lymphocytes (%) (Auto) % (20.0-45.0) Monocytes (%) (Auto) % (1.0-10.0) Eosinophils (%) (Auto) % (0.0-3.0) Basophils (%) (Auto) % (0.0-2.0) Differential Total Cells Counted 100 Neutrophils % (Manual) 67 % (45-75) Lymphocytes % (Manual) 25 % (20-45) Monocytes % (Manual) 8 % (1-10) Eosinophils % (Manual) 0 % (0-3) Basophils % (Manual) 0 % (0-2) Band Neutrophils 0 % (0-8) Platelet Estimate Decreased L Platelet Morphology Normal Hypochromasia 1+ Anisocytosis 1+ Sodium Level 131 MMOL/L (136-145) L Potassium Level 4.5 MMOL/L (3.5-5.1) Chloride Level 103 MMOL/L (98-107) Carbon Dioxide Level 22 MMOL/L (21-32) Anion Gap 6 mmol/L (5-15) Blood Urea Nitrogen 18 mg/dL (7-18) Creatinine 1.2 MG/DL (0.55-1.30) Estimat Glomerular Filtration Rate > 60 mL/min (>60) Glucose Level 97 MG/DL (74-106) Calcium Level 6.9 MG/DL (8.5-10.1) L Microbiology Date/Time Source Procedure Growth Status 05/18/18 14:50 Lymph Node Gram Stain - Final Resulted 05/18/18 14:50 Lymph Node Aerobic Culture - Preliminary NO GROWTH AFTER 24 HOURS Resulted 05/18/18 14:50 Lymph Node Anaerobic Culture - Preliminary NO GROWTH AFTER 24 HOURS Resulted Intake and Output 05/19/18 05/20/18 19:00 07:00 Intake Total 360 ml 240 ml Output Total 850 ml 450 ml Balance -490 ml -210 ml Intake Oral 360 ml 240 ml Output Urine Total 850 ml 450 ml # Bowel Movements 3 3 Objective PHYSICAL EXAMINATION: VITAL SIGNS: Temperature 99.7, respirations 24, pulse 128, and blood pressure 96/59. GENERAL: The patient is thin-appearing male, in no apparent distress. HEENT: Eyes, pupils equal and responsive to light and accommodation. Extraocular movements intact. NECK: Supple without lymphadenopathy. CHEST: Lungs are clear to auscultation bilaterally without wheezes or rales. CARDIOVASCULAR: Regular rhythm and rate. S1 and S2 are normal without murmurs, rubs, or gallops. ABDOMEN: Soft and nondistended with decreased bowel sounds. No evidence of hepatosplenomegaly. Currently, no rebound or guarding noted. EXTREMITIES: Negative for clubbing, cyanosis, or edema. RECTAL: Refused. GENITAL: Refused. NEUROLOGIC: Cranial nerves II through XII are grossly intact without focal deficits. Motor strength is 5/5 bilaterally intact. Deep tendon reflexes are 2+, plantar. Assessment/Plan Assessment/Plan ASSESSMENT: This is a 37-year-old male: 1. Nausea with vomiting. 2. Diarrhea. 3. Vertigo. 4. Hypotension. 5. HIV. 6. Kaposi sarcoma. 7. Castleman disease. 8. New Fever 9. Lymphadenopathy 10. Anemia TREATMENT: 1. Nausea/vomiting/diarrhea. Gastroenterology consultation with Dr. Michael Grande. Stool cultures including Clostridium difficile, stool culture, and ova and parasite are pending. T he patient has been started empirically on Zosyn. An infectious disease consultation has been obtained with Dr Mobley. We will follow recommendations of Gastroenterology and Infectious Disease. 2. Hypotension. This may be secondary to sepsis. Continue Zosyn as above. 3. Kaposi sarcoma. The patient is status post chemotherapy. 4. Castleman disease. 5. Antibiotics=ceftriaxone and flagyl per ID. 6. continue tamiflu 7. Fever-follow ID recs 8. S/P left axillary lymph node biopsy 05/18/18-await results 9. S/P transfusion 1 unit PRBC 05/18/18. Adam Padron MD May 20, 2018 18:30
--- NOTE | 2018-05-20 19:23 | NUR ---
HAND-OFF: Report given to TRES Patel.Endorsed plan of care.
--- NOTE | 2018-05-20 19:24 | NUR ---
NURSE NOTES: Received pt from TRES Keating. Pt awake, alert, and c/o of pain. Bed in lowest position. Call light within reach. Will continue to monitor.
[2018-05-20 20:00] VITALS: BP 99/63
--- NOTE | 2018-05-20 20:18 | Consultation ---
History of Present Illness General Chief Complaint: Generalized Weakness Referring physician: GOPI CACERES Reason for Consultation: N/V Present Illness Allergies: Coded Allergies: No Known Allergies (Unverified , 10/21/17) Medication History Scheduled Azithromycin* (Zithromax*), 250 MG ORAL Q24H Cholecalciferol (Vitamin D3)* (Vitamin D*), 1,000 UNIT ORAL DAILY, (Reported) Dolutegravir Sodium (Tivicay), 50 MG ORAL DAILY, (Reported) Emtricitabine/Tenofovir 200-300MG* (Truvada 200-300MG*), 1 TAB ORAL DAILY, ( Reported) Mirtazapine* (Mirtazapine*), 15 MG ORAL BEDTIME No Known Medications* (NKM - No Known Medications*), 0 ., (Reported) Trimethoprim/Sulfamethoxazole (Bactrim Ds Tablet), 1 TAB ORAL DAILY Patient History Healthcare decision maker Resuscitation status Full Code Advanced Directive on File No Physical Exam Last 24 Hour Vital Signs Date Time Temp Pulse Resp B/P (MAP) Pulse Ox O2 Delivery O2 Flow Rate FiO2 05/20/18 16:00 98.9 111 18 95/58 (70) 100 05/20/18 16:00 113 05/20/18 12:00 98.3 95 18 93/57 (69) 100 05/20/18 12:00 114 05/20/18 09:00 Room Air 05/20/18 08:00 115 05/20/18 08:00 97.6 116 18 103/64 (77) 98 05/20/18 04:00 98.2 74 18 85/59 (68) 98 05/20/18 04:00 105 05/20/18 00:00 99.3 98 18 88/59 (69) 96 05/20/18 00:00 97 05/19/18 21:43 140 103/61 05/19/18 21:00 Room Air Intake and Output 05/19/18 05/20/18 19:00 07:00 Intake Total 360 ml 240 ml Output Total 850 ml 450 ml Balance -490 ml -210 ml Intake Oral 360 ml 240 ml Output Urine Total 850 ml 450 ml # Bowel Movements 3 3 Laboratory Tests Test 05/20/18 05:10 White Blood Count 4.6 K/UL (4.8-10.8) L Red Blood Count 3.14 M/UL (4.70-6.10) L Hemoglobin 7.6 G/DL (14.2-18.0) L Hematocrit 23.6 % (42.0-52.0) L Mean Corpuscular Volume 75 FL (80-99) L Mean Corpuscular Hemoglobin 24.1 PG (27.0-31.0) L Mean Corpuscular Hemoglobin Concent 32.0 G/DL (32.0-36.0) Red Cell Distribution Width 17.6 % (11.6-14.8) H Platelet Count 72 K/UL (150-450) L Mean Platelet Volume 5.5 FL (6.5-10.1) L Neutrophils (%) (Auto) % (45.0-75.0) Lymphocytes (%) (Auto) % (20.0-45.0) Monocytes (%) (Auto) % (1.0-10.0) Eosinophils (%) (Auto) % (0.0-3.0) Basophils (%) (Auto) % (0.0-2.0) Differential Total Cells Counted 100 Neutrophils % (Manual) 67 % (45-75) Lymphocytes % (Manual) 25 % (20-45) Monocytes % (Manual) 8 % (1-10) Eosinophils % (Manual) 0 % (0-3) Basophils % (Manual) 0 % (0-2) Band Neutrophils 0 % (0-8) Platelet Estimate Decreased L Platelet Morphology Normal Hypochromasia 1+ Anisocytosis 1+ Sodium Level 131 MMOL/L (136-145) L Potassium Level 4.5 MMOL/L (3.5-5.1) Chloride Level 103 MMOL/L (98-107) Carbon Dioxide Level 22 MMOL/L (21-32) Anion Gap 6 mmol/L (5-15) Blood Urea Nitrogen 18 mg/dL (7-18) Creatinine 1.2 MG/DL (0.55-1.30) Estimat Glomerular Filtration Rate > 60 mL/min (>60) Glucose Level 97 MG/DL (74-106) Calcium Level 6.9 MG/DL (8.5-10.1) L Height (Feet): 5 Height (Inches): 11.00 Weight (Pounds): 133 Medications Current Medications Medications (Trade) Dose Ordered Sig/Yessica Route PRN Reason Start Time Stop Time Status Last Admin Dose Admin Acetaminophen (Tylenol) 650 mg Q4H PRN ORAL Mild Pain/Temp > 100.5 05/17/18 00:00 06/12/18 11:59 05/17/18 08:42 Azithromycin (Zithromax) 1,200 mg ONCE A WEEK ORAL 05/20/18 18:00 05/27/18 17:59 05/20/18 19:00 Ceftriaxone Sodium 1 gm/ Dextrose 55 ml @ 110 mls/hr Q24H IVPB 05/17/18 15:00 05/22/18 14:59 05/20/18 15:49 Diphenoxylate HCl/ Atropine (Lomotil) 2.5 mg Q4H PRN ORAL Diarrhea 05/17/18 08:45 06/16/18 08:44 05/18/18 17:29 Dolutegravir Sodium (Tivicay) 50 mg DAILY ORAL 05/17/18 09:00 06/14/18 08:59 05/20/18 09:11 Folic Acid (Folate) 1 mg DAILY ORAL 05/17/18 09:00 06/14/18 09:29 05/20/18 09:08 Heparin Sodium (Porcine) (Heparin 5000 units/ml) 5,000 units EVERY 8 HOURS SUBQ 05/17/18 22:00 06/12/18 13:59 05/18/18 06:07 Iopamidol (Isovue-300 100ml) 100 ml NOW PRN INJ Radiology Procedure 05/17/18 12:45 06/16/18 12:44 Loperamide HCl (Imodium) 2 mg Q4H PRN ORAL Diarrhea 05/17/18 02:15 06/15/18 10:14 05/20/18 05:49 Metoprolol Tartrate (Lopressor) 50 mg Q12HR ORAL 05/17/18 09:00 06/12/18 05:59 05/19/18 21:43 Metronidazole (Flagyl) 500 mg Q8HR ORAL 05/17/18 06:00 05/22/18 13:59 05/20/18 13:28 Mirtazapine (Remeron) 15 mg BEDTIME ORAL 05/17/18 21:00 06/12/18 20:59 05/19/18 21:42 Ondansetron HCl (Zofran) 4 mg Q4H PRN IVP Nausea & Vomiting 05/17/18 00:15 06/12/18 12:14 05/19/18 19:03 Patient Own Medication (Patient's Own Med) 1 ea DAILY ORAL 05/17/18 09:00 06/12/18 19:59 05/20/18 09:11 Trimethoprim/ Sulfamethoxazole (Bactrim-DS) 1 tab DAILY ORAL 05/18/18 09:00 05/25/18 08:59 05/20/18 09:08 Vitamin D (Vitamin D) 1,000 intlu DAILY ORAL 05/17/18 09:00 06/12/18 08:59 05/20/18 09:09 Assessment/Plan Assessment/Plan Hematology Consult DOS: 05/20/18 Referring physician: Daniel Jeffrey Reason for Consultation: Castleman's disease, PANCYTOPENIA WORSENING ID Mr. Hewitt is a 37 year old HIV/AIDS positive male who presented to the [place] ED with poor appetite, nausea and vomiting. I Saw him back in 10/2017 and reviewed that admission as well. He also had fever and chills. He was transferred from [place]. He has had no leukocytosis and is on RA. CT chest pending. CXR shows Surgical clip versus artifact seen in the right axilla. Somewhat prominent interstitial markings are seen in the right lower lung. No definite acute infiltrates, effusions, or congestion otherwise.Currently on abx ID consulted for HIV care. He has been on tivicay and descovy - No Hx of resistance. Was on Truvada Reyetaz and Norvir before. CD4 192 and VL 09/01/17. Has been above 200 in the past. Came down with Chemo. Also has chronic Hep B, VL <15 09/01/17. Last PET 08/12/17 - show stable/not worsening lymphadenopathy. Last chemo was 07/17/17. Quantiferon negative 11/21/16. The patient presented with fever with his intial Dx of Castlemans's. CD4 count of 64, noted to have extensive lad, bx was done left axilla and heme consulted for eval HIV Hx Dx 2000 Started on meds at that time. Says he has been taking them since. Does not know VL, CD4 counts or med names Per his mother is on Tivicay, Truvada and Bactrim. PMHx HIV Castlemans's disease/Kaposi Sarcoma, last chemo one month (got about 9 months of it on and off) Blood Clot in left groin - On Enoxaparin BID at home PSHx Axillary LN Bx x 2 SocHx Cig/MJ No IVDU or EtOH FamHx Lung CA - Grandmother Allergies: No Known Allergies (Unverified , 10/21/17) Healthcare decision maker N Resuscitation status Full Code Advanced Directive on File No All Other Systems: negative except mentioned in HPI Physical Exam: Vitals: reviewed General Appearance: NAD HEENT: normocephalic, atraumatic Neck: non-tender, normal alignment Respiratory/Chest: normal breath sounds bilaterally Cardiovascular/Chest: normal peripheral pulses, normal rate Abdomen: normal bowel sounds, soft, nontender Extremities: normal range of motion Laboratory Tests Test 05/20/18 05:10 White Blood Count 4.6 K/UL (4.8-10.8) L Red Blood Count 3.14 M/UL (4.70-6.10) L Hemoglobin 7.6 G/DL (14.2-18.0) L Hematocrit 23.6 % (42.0-52.0) L Mean Corpuscular Volume 75 FL (80-99) L Mean Corpuscular Hemoglobin 24.1 PG (27.0-31.0) L Mean Corpuscular Hemoglobin Concent 32.0 G/DL (32.0-36.0) Red Cell Distribution Width 17.6 % (11.6-14.8) H Platelet Count 72 K/UL (150-450) L Mean Platelet Volume 5.5 FL (6.5-10.1) L Neutrophils (%) (Auto) % (45.0-75.0) Lymphocytes (%) (Auto) % (20.0-45.0) Monocytes (%) (Auto) % (1.0-10.0) Eosinophils (%) (Auto) % (0.0-3.0) Basophils (%) (Auto) % (0.0-2.0) Differential Total Cells Counted 100 Neutrophils % (Manual) 67 % (45-75) Lymphocytes % (Manual) 25 % (20-45) Monocytes % (Manual) 8 % (1-10) Eosinophils % (Manual) 0 % (0-3) Basophils % (Manual) 0 % (0-2) Band Neutrophils 0 % (0-8) Platelet Estimate Decreased L Platelet Morphology Normal Hypochromasia 1+ Anisocytosis 1+ Sodium Level 131 MMOL/L (136-145) L Potassium Level 4.5 MMOL/L (3.5-5.1) Chloride Level 103 MMOL/L (98-107) Carbon Dioxide Level 22 MMOL/L (21-32) Anion Gap 6 mmol/L (5-15) Blood Urea Nitrogen 18 mg/dL (7-18) Creatinine 1.2 MG/DL (0.55-1.30) Estimat Glomerular Filtration Rate > 60 mL/min (>60) Glucose Level 97 MG/DL (74-106) Calcium Level 6.9 MG/DL (8.5-10.1) L Assessment and Recs # Pancytopenia, worsening, with severe diffuse lymphadenopathy worsened since 2018, in the setting Castlemans's disease/KS - outpatinent chemo has been received as recently 09/2017 or so. Hx of HIV, CD4 count very low. He has a very poor memory, says was treated at [facility] S/P Chemo ending 07/17/17. Last PET 08/12 - show stable/not worsening lymphadenopathy. Has very extensive disease on ct scan lympahdenopathy noted throughout --> await final results of axilla lymphadeopathy biopsy, FINAL results pending, flow cytometry has been reviewed and thus far nondiagnostic --> I talked with him regarding getting potentially another biopsy (bulky lymph node v bone marrow biopsy) he has thus far refused --> recommend to obtain VEGF, IL-6 these labs ordered but do take several days/ weeks to come back --> inflammatory makers are elevated which can be c/w flare but are fairly non- specific --> imaging is ordered as well --> outpatient f/u as well for futher therapy prn --> treat underlying HIV as per ID service # Anemia of chronic disaese -- workup has been ordered and reviewed --> esr elevated, as is crp --> transfuse if hgb <7 # DVT hx that was diagnosed at outpatient hospital --> inpatient venous duplex is negative for thromboembolism, therefore DOES not require anticoagulants --> have discussed this with patients and patient's mother # Sepsis - PNA, KS, other infection, TB? --> on HIV meds, abx as needed # HIV - On Tivicay and Truvada and Bactrim, CD4 count 64 --> VL pending, CD4 count ordered<100 # REENA The timing of this note does not necessarily reflect the time of the patient was seen. Greatly appreciate consultation. Jean Bingham MD May 20, 2018 20:18
--- NOTE | 2018-05-20 20:26 | NUR ---
NURSE NOTES: Called and left a message with Dr. Gtz asking to renew his IV pain meds. Awaiting call back.
[2018-05-20] MEDS: Morphine Sulfate 2mg/ml Inj(IV/IM USE ONLY) IVP PRN (21:16)
[2018-05-21] VITALS: BP 101/65
[2018-05-21] MEDS: Morphine Sulfate 2mg/ml Inj(IV/IM USE ONLY) IVP PRN ×2 (03:31→21:11)
[2018-05-21 04:00] VITALS: BP 111/69
[2018-05-21] MEDS: metroNIDAZOLE 500mg tab ORAL SCH ×3 (05:58→21:11)
[2018-05-21] MEDS: Heparin 5000 units/ml inj SUBQ SCH ×3 (05:58→21:09)
--- NOTE | 2018-05-21 07:10 | NUR ---
NURSE NOTES: Received report from Amanda/TRES. Patient asleep, No distress/SOB noted, Call light within reach, Bed in low position. Will continue plan of care.
--- NOTE | 2018-05-21 07:22 | NUR ---
HAND-OFF: Report given to TRES Shultz. Pt stable.
[2018-05-21 07:35] LABS: HEMATOCRIT 25.5 % (42.0-52.0); HEMOGLOBIN 8.2 G/DL (14.2-18.0); MEAN CORPUSCULAR VOLUME 74 FL (80-99); PLATELET COUNT 60 K/UL (150-450); RED BLOOD COUNT 3.43 M/UL (4.70-6.10); RED CELL DISTRIBUTION WIDTH 17.9 % (11.6-14.8); WHITE BLOOD COUNT 4.7 K/UL (4.8-10.8)
[2018-05-21 08:00] VITALS: BP 94/64
[2018-05-21 08:02] LABS: ANION GAP 6 mmol/L (5-15); BLOOD UREA NITROGEN 18 mg/dL (7-18); CALCIUM 6.8 MG/DL (8.5-10.1); CARBON DIOXIDE 23 MMOL/L (21-32); CHLORIDE 104 MMOL/L (98-107); CREATININE 1.2 MG/DL (0.55-1.30); POTASSIUM 4.3 MMOL/L (3.5-5.1); SODIUM 132 MMOL/L (136-145)
[2018-05-21] MEDS: Bactrim-DS 1 tab ORAL SCH (08:46)
[2018-05-21] MEDS: Vitamin D 1000 IU Tab ORAL SCH (08:46)
[2018-05-21] MEDS: Dolutegravir Sodium 50mg tab ORAL SCH (08:46)
[2018-05-21] MEDS: Morphine Sulfate 4mg/ml Inj (IV USE ONLY) IVP PRN ×2 (08:47→15:02)
[2018-05-21] MEDS: Metoprolol Tartrate 50mg tab ORAL SCH ×2 (09:00→21:00)
--- NOTE | 2018-05-21 09:32 | Infectious Diseases Prog Note ---
Assessment/Plan Assessment/Plan SEvere sepsis Fever- r/o opportunistic infection (ie CMV, MAC, recurrence Castleman) Diffuse lymphadenopathy- Ddx: CMV disease (ie colitis), Diffuse MAC, recurrente Castleman, HIV related, lymphoma -05/18 s/p L axillary lymph node biopsy -path p - Stains - pend -flow cytometry neg -bacterial cx NTD; fungal, viral and AFB p -CT chest: Mediastinal, axillary, and supraclavicular lymphadenopathy, enlarged compared to the prior CT of the chest. Largest left axillary node measures 3.4 x 2.4 cm. Largest supraclavicular node on the left measures 3.8 x 2.8 cm. Largest mediastinal nodes include a 2.2 x 1.6 cm pretracheal node and a 2.3 x 1.6 cm subcarinal node. Small layering right pleural effusion with fluid in the minor fissure. Kasie-bronchovascular groundglass haziness and nodularity in the right lower lobe. Scattered paraseptal emphysematous changes, predominantly in the upper lung zones. -CT abd/p: Diffuse edema and haziness throughout the mesenteric root. Not significantly changed compared to the visualized portions of the mesenteric root in the prior CT of the chest dated 10/22/17. Mesenteric, retroperitoneal, and inguinal lymphadenopathy. Largest retroperitoneal node measures 3.1 x 2.5 x 2.0 cm to left of the IVC (series 8 image 56, series 10 image 23). Largest left inguinal left node measures 2.9 x 2.5 cm (series 8 image 90). Mild fluid distention and air-fluid levels throughout the colon, which may suggest mild colitis and/or diarrheal disease. No evidence of bowel obstruction. Cholelithiasis without gallbladder wall thickening or ductal dilatation. Scattered subcentimeter hypodensities throughout the spleen, possibly tiny simple cysts. Subcentimeter simple-appearing left renal cortical cysts. Mild urinary bladder wall thickening, most likely related to underdistention. -CT head: . Opacification of the right maxillary sinus, right frontal sinus , and mucosal thickening throughout the ethmoid air cells and left maxillary sinus, suggestive of sinusitis. Partial opacification of the inferior posterior aspect of the left mastoid air cells, suggesting small left mastoid effusion. -Bcx NTD -CXR: No acute findings -Neg: Infl sc, Cr Ag No leukocytosis Nausea/vomiting/diarrhea -Cdiff neg -stool cx normal phi HIV on ARV (dx 1999)- on Truvada and Dolutegravir, now AIDS -04/2018 HIV VL p, Cd4 64 (9.1%); VL 100 ?decrease due to non compliance, however low viremia (will expect higher viremia if non compliance) -10/2017 HIV VL ND, CD4 87 (12.4%) -09/01/17 - CD4 192 and VL - ND (Out Side labs) -no hx of resistance ; previously on Truvada, Reyataz and Norvir -Has been above 200 in the past. Came down with Chemo REENA, improving Microcytic anemia Thrombocytopenia hx pancreatitis 10/2017 - 10/22/17- CT show reticular opacity and significant lymphadenopathy 10/23/17 - CT abd/pel Lymphadenopathy, Enlarged Pancrease mild B/L hydronephrosis -Blasto, Histo, CrAg neg 11/21/16 - Quantiferon negative (Out Side lab) hx of Kaposi's sarcoma/Castleman's disease s/p chemotherapy - S/P Chemo ending 07/17/17 Last PET 08/12/17 - show stable/not worsening lymphadenopathy Hep C+ hx of Chronic Hep B, VL <15 09/01/17 hx of DVT Plan: - Continue Ceftriaxone #5 and Flagyl #7/7 for colitis -05/15/18 SP empiric IV Vancomycin #4 and switch empiric Zosyn #3 to Ceftriaxone and Flagyl -05/16/18 SP Tamiflu #4 - 05/12 SP Cefepime x1 -f/u cx -Monitor CBC/CMP, temperatures -f/u AFB bcx, CMV PCR, -Histoplasma ag urine, COcci ab, parasite stool studies -aspiration precautions -GI f/u -fu axillary lymph node biopsy -pathology and for cultures (AFB, fungal, bacterial, viral), MTB PCR - If lymph node biopsy unrevealing, may need bone marrow biopsy Will continue to follow along with you. Subjective Allergies: Coded Allergies: No Known Allergies (Unverified , 10/21/17) Subjective BM x 4 Patient afebrile Satting well on RA No leukocytosis Objective Vital Signs Last 24 Hour Vital Signs Date Time Temp Pulse Resp B/P (MAP) Pulse Ox O2 Delivery O2 Flow Rate FiO2 05/21/18 08:00 98.4 108 20 94/64 (74) 100 05/21/18 04:00 96.6 100 18 111/69 (83) 97 05/21/18 04:00 113 05/21/18 00:00 123 05/21/18 00:00 97.3 111 18 101/65 (77) 95 05/20/18 21:00 Room Air 05/20/18 20:00 110 05/20/18 20:00 97.5 125 19 99/63 (75) 95 05/20/18 16:00 98.9 111 18 95/58 (70) 100 05/20/18 16:00 113 05/20/18 12:00 98.3 95 18 93/57 (69) 100 05/20/18 12:00 114 Height (Feet): 5 Height (Inches): 11.00 Weight (Pounds): 133 Objective General: NAD Head: NCAT PERRL, EOMI Respiratory: CTAB Cardiovascular: RRR, S1, S2 Gastrointestinal: Soft, NT, ND, + BS Neurologic: alert, oriented x3, responsive Microbiology Date/Time Source Procedure Growth Status 05/18/18 14:50 Lymph Node Gram Stain - Final Resulted 05/18/18 14:50 Lymph Node Aerobic Culture - Preliminary NO GROWTH AFTER 24 HOURS Resulted 05/18/18 14:50 Lymph Node Anaerobic Culture - Preliminary NO GROWTH AFTER 24 HOURS Resulted Laboratory Tests Test 05/21/18 06:36 White Blood Count 4.7 K/UL (4.8-10.8) L Red Blood Count 3.43 M/UL (4.70-6.10) L Hemoglobin 8.2 G/DL (14.2-18.0) L Hematocrit 25.5 % (42.0-52.0) L Mean Corpuscular Volume 74 FL (80-99) L Mean Corpuscular Hemoglobin 23.9 PG (27.0-31.0) L Mean Corpuscular Hemoglobin Concent 32.1 G/DL (32.0-36.0) Red Cell Distribution Width 17.9 % (11.6-14.8) H Platelet Count 60 K/UL (150-450) L Mean Platelet Volume 5.7 FL (6.5-10.1) L Neutrophils (%) (Auto) % (45.0-75.0) Lymphocytes (%) (Auto) % (20.0-45.0) Monocytes (%) (Auto) % (1.0-10.0) Eosinophils (%) (Auto) % (0.0-3.0) Basophils (%) (Auto) % (0.0-2.0) Differential Total Cells Counted 100 Neutrophils % (Manual) 71 % (45-75) Lymphocytes % (Manual) 15 % (20-45) L Monocytes % (Manual) 12 % (1-10) H Eosinophils % (Manual) 2 % (0-3) Basophils % (Manual) 0 % (0-2) Band Neutrophils 0 % (0-8) Nucleated Red Blood Cells 2 /100 WBC Platelet Estimate Decreased L Platelet Morphology Normal Polychromasia 1+ Anisocytosis 1+ Microcytosis 1+ Sodium Level 132 MMOL/L (136-145) L Potassium Level 4.3 MMOL/L (3.5-5.1) Chloride Level 104 MMOL/L (98-107) Carbon Dioxide Level 23 MMOL/L (21-32) Anion Gap 6 mmol/L (5-15) Blood Urea Nitrogen 18 mg/dL (7-18) Creatinine 1.2 MG/DL (0.55-1.30) Estimat Glomerular Filtration Rate > 60 mL/min (>60) Glucose Level 93 MG/DL (74-106) Calcium Level 6.8 MG/DL (8.5-10.1) L Current Medications Medications (Trade) Dose Ordered Sig/Yessica Route PRN Reason Start Time Stop Time Status Last Admin Dose Admin Acetaminophen (Tylenol) 650 mg Q4H PRN ORAL Mild Pain/Temp > 100.5 05/17/18 00:00 06/12/18 11:59 05/17/18 08:42 Azithromycin (Zithromax) 1,200 mg ONCE A WEEK ORAL 05/20/18 18:00 05/27/18 17:59 05/20/18 19:00 Ceftriaxone Sodium 1 gm/ Dextrose 55 ml @ 110 mls/hr Q24H IVPB 05/17/18 15:00 05/22/18 14:59 05/20/18 15:49 Diphenoxylate HCl/ Atropine (Lomotil) 2.5 mg Q4H PRN ORAL Diarrhea 05/17/18 08:45 06/16/18 08:44 4/1/19 17:29 Dolutegravir Sodium (Tivicay) 50 mg DAILY ORAL 05/17/18 09:00 06/14/18 08:59 05/21/18 08:46 Folic Acid (Folate) 1 mg DAILY ORAL 05/17/18 09:00 06/14/18 09:29 05/21/18 08:46 Heparin Sodium (Porcine) (Heparin 5000 units/ml) 5,000 units EVERY 8 HOURS SUBQ 05/17/18 22:00 06/12/18 13:59 05/18/18 06:07 Iopamidol (Isovue-300 100ml) 100 ml NOW PRN INJ Radiology Procedure 05/17/18 12:45 06/16/18 12:44 Loperamide HCl (Imodium) 2 mg Q4H PRN ORAL Diarrhea 05/17/18 02:15 06/15/18 10:14 05/20/18 05:49 Metoprolol Tartrate (Lopressor) 50 mg Q12HR ORAL 05/17/18 09:00 06/12/18 05:59 05/19/18 21:43 Metronidazole (Flagyl) 500 mg Q8HR ORAL 05/17/18 06:00 05/22/18 13:59 05/21/18 05:58 Mirtazapine (Remeron) 15 mg BEDTIME ORAL 05/17/18 21:00 06/12/18 20:59 05/19/18 21:42 Morphine Sulfate (Morphine Sulfate) 2 mg Q4H PRN IVP For moderate Pain 4-6/10 05/20/18 20:30 05/27/18 20:29 05/21/18 03:31 Morphine Sulfate (Morphine Sulfate) 4 mg Q4H PRN IVP For severe Pain 7-10/10 05/20/18 20:30 05/27/18 20:29 05/21/18 08:47 Ondansetron HCl (Zofran) 4 mg Q4H PRN IVP Nausea & Vomiting 05/17/18 00:15 06/12/18 12:14 05/20/18 21:07 Patient Own Medication (Patient's Own Med) 1 ea DAILY ORAL 05/17/18 09:00 06/12/18 19:59 05/21/18 08:45 Trimethoprim/ Sulfamethoxazole (Bactrim-DS) 1 tab DAILY ORAL 05/18/18 09:00 05/25/18 08:59 05/21/18 08:46 Vitamin D (Vitamin D) 1,000 intlu DAILY ORAL 05/17/18 09:00 06/12/18 08:59 05/21/18 08:46 Sterling Ortiz MD May 21, 2018 09:31
--- NOTE | 2018-05-21 10:51 | GI Progress Note ---
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 SNOMED: 28465937 (2) Cyclic vomiting syndrome ICD Codes: G43.A0 - Cyclical vomiting, not intractable SNOMED: 21701744 (3) Nausea & vomiting ICD Codes: R11.2 - Nausea with vomiting, unspecified SNOMED: 13962077 (4) Electrolyte imbalance ICD Codes: E87.8 - Other disorders of electrolyte and fluid balance, not elsewhere classified SNOMED: 462959783 (5) Diarrhea ICD Codes: R19.7 - Diarrhea, unspecified SNOMED: 60647040 (6) Gastroenteritis ICD Codes: K52.9 - Noninfective gastroenteritis and colitis, unspecified SNOMED: 71114387 (7) Dehydration ICD Codes: E86.0 - Dehydration SNOMED: 17312625 Status: stable Status Narrative Discussed with Dr. Grande. Assessment/Plan Recent history of unremarkable endoscopy and colonoscopy Marijuana use Kaposi Disease s/p chemotherapy Microcytic anemia C. difficile is negative stool culture negative O&P negative advance diet hold Venofer given elevated ferritin levels Zofran as needed OB stool r/o GI bleed monitor H&H, prn transfusions Lomotil as needed ppi IV and p.o. hydration plus electrolyte correction fu labs No plans for colonoscopy at this time DC planning The patient was seen and examined at bedside and all new and available data was reviewed in the patients chart. I agree with the above findings, impression and plan. (Patient seen earlier today. Signature stamp does not reflect patient encounter time.). - Michael Grande MD Subjective Subjective Patient states his diarrhea has gotten better, stools more formed Refusing colonoscopy at this time Objective Last 24 Hour Vital Signs Date Time Temp Pulse Resp B/P (MAP) Pulse Ox O2 Delivery O2 Flow Rate FiO2 05/21/18 09:00 108 94/64 05/21/18 08:00 98.4 108 20 94/64 (74) 100 05/21/18 04:00 96.6 100 18 111/69 (83) 97 05/21/18 04:00 113 05/21/18 00:00 123 05/21/18 00:00 97.3 111 18 101/65 (77) 95 05/20/18 21:00 Room Air 05/20/18 20:00 110 05/20/18 20:00 97.5 125 19 99/63 (75) 95 05/20/18 16:00 98.9 111 18 95/58 (70) 100 05/20/18 16:00 113 05/20/18 12:00 98.3 95 18 93/57 (69) 100 05/20/18 12:00 114 Intake and Output 05/20/18 05/21/18 19:00 07:00 Intake Total 150 ml Balance 150 ml Other 150 ml # Voids 1 # Bowel Movements 1 3 Laboratory Tests Test 05/21/18 06:36 White Blood Count 4.7 K/UL (4.8-10.8) L Red Blood Count 3.43 M/UL (4.70-6.10) L Hemoglobin 8.2 G/DL (14.2-18.0) L Hematocrit 25.5 % (42.0-52.0) L Mean Corpuscular Volume 74 FL (80-99) L Mean Corpuscular Hemoglobin 23.9 PG (27.0-31.0) L Mean Corpuscular Hemoglobin Concent 32.1 G/DL (32.0-36.0) Red Cell Distribution Width 17.9 % (11.6-14.8) H Platelet Count 60 K/UL (150-450) L Mean Platelet Volume 5.7 FL (6.5-10.1) L Neutrophils (%) (Auto) % (45.0-75.0) Lymphocytes (%) (Auto) % (20.0-45.0) Monocytes (%) (Auto) % (1.0-10.0) Eosinophils (%) (Auto) % (0.0-3.0) Basophils (%) (Auto) % (0.0-2.0) Differential Total Cells Counted 100 Neutrophils % (Manual) 71 % (45-75) Lymphocytes % (Manual) 15 % (20-45) L Monocytes % (Manual) 12 % (1-10) H Eosinophils % (Manual) 2 % (0-3) Basophils % (Manual) 0 % (0-2) Band Neutrophils 0 % (0-8) Nucleated Red Blood Cells 2 /100 WBC Platelet Estimate Decreased L Platelet Morphology Normal Polychromasia 1+ Anisocytosis 1+ Microcytosis 1+ Sodium Level 132 MMOL/L (136-145) L Potassium Level 4.3 MMOL/L (3.5-5.1) Chloride Level 104 MMOL/L (98-107) Carbon Dioxide Level 23 MMOL/L (21-32) Anion Gap 6 mmol/L (5-15) Blood Urea Nitrogen 18 mg/dL (7-18) Creatinine 1.2 MG/DL (0.55-1.30) Estimat Glomerular Filtration Rate > 60 mL/min (>60) Glucose Level 93 MG/DL (74-106) Calcium Level 6.8 MG/DL (8.5-10.1) L Height (Feet): 5 Height (Inches): 11.00 Weight (Pounds): 133 General Appearance: WD/WN, no apparent distress, alert Cardiovascular: normal rate Respiratory/Chest: normal breath sounds, no respiratory distress Abdominal Exam: normal bowel sounds, non tender, soft Extremities: normal range of motion, non-tender Simeon Fall NP May 21, 2018 10:51
[2018-05-21 12:00] VITALS: BP 93/61
--- NOTE | 2018-05-21 12:13 | Pulmonology Progress Note ---
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 CT chest reviewed: multiple axillary and hilar enlarged nodules., I asked the general surgeon for excisional biopsy d/w pathologist, the specimen form the LN has lots of plasma cells, awaiting more staining Oncology note appreciated. Pt refusing excisional biopsy. awaiting for more staining Subjective ROS Limited/Unobtainable: No Constitutional: Reports: no symptoms Respiratory: Reports: no symptoms Allergies: Coded Allergies: No Known Allergies (Unverified , 10/21/17) Objective Last 24 Hour Vital Signs Date Time Temp Pulse Resp B/P (MAP) Pulse Ox O2 Delivery O2 Flow Rate FiO2 05/21/18 09:00 108 94/64 05/21/18 09:00 Room Air 05/21/18 08:00 113 05/21/18 08:00 98.4 108 20 94/64 (74) 100 05/21/18 04:00 96.6 100 18 111/69 (83) 97 05/21/18 04:00 113 05/21/18 00:00 123 05/21/18 00:00 97.3 111 18 101/65 (77) 95 05/20/18 21:00 Room Air 05/20/18 20:00 110 05/20/18 20:00 97.5 125 19 99/63 (75) 95 05/20/18 16:00 98.9 111 18 95/58 (70) 100 05/20/18 16:00 113 Intake and Output 05/20/18 05/21/18 19:00 07:00 Intake Total 150 ml Balance 150 ml Other 150 ml # Voids 1 # Bowel Movements 1 3 Objective General Appearance: cachetic HEENT: normocephalic, atraumatic Respiratory/Chest: chest wall non-tender, lungs clear Cardiovascular: normal peripheral pulses, normal rate Abdomen: normal bowel sounds, no organomegaly Genitourinary: normal external genitalia Extremities: no clubbing 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 grossly normal Microbiology Date/Time Source Procedure Growth Status 05/18/18 14:50 Lymph Node Gram Stain - Final Resulted 05/18/18 14:50 Lymph Node Aerobic Culture - Preliminary NO GROWTH AFTER 48 HOURS Resulted 05/18/18 14:50 Lymph Node Anaerobic Culture - Preliminary NO GROWTH AFTER 24 HOURS Resulted Laboratory Tests 05/21/18 06:36: White Blood Count 4.7L, Red Blood Count 3.43L, Hemoglobin 8.2L, Hematocrit 25.5L , Mean Corpuscular Volume 74L, Mean Corpuscular Hemoglobin 23.9L, Mean Corpuscular Hemoglobin Concent 32.1, Red Cell Distribution Width 17.9H, Platelet Count 60L, Mean Platelet Volume 5.7L, Neutrophils (%) (Auto) , Lymphocytes (%) (Auto) , Monocytes (%) (Auto) , Eosinophils (%) (Auto) , Basophils (%) (Auto) , Differential Total Cells Counted 100, Neutrophils % ( Manual) 71, Lymphocytes % (Manual) 15L, Monocytes % (Manual) 12H, Eosinophils % (Manual) 2, Basophils % (Manual) 0, Band Neutrophils 0, Nucleated Red Blood Cells 2, Platelet Estimate DecreasedL, Platelet Morphology Normal, Polychromasia 1+, Anisocytosis 1+, Microcytosis 1+, Sodium Level 132L, Potassium Level 4.3, Chloride Level 104, Carbon Dioxide Level 23, Anion Gap 6, Blood Urea Nitrogen 18, Creatinine 1.2, Estimat Glomerular Filtration Rate > 60 , Glucose Level 93, Calcium Level 6.8L Current Medications Medications (Trade) Dose Ordered Sig/Yessica Route PRN Reason Start Time Stop Time Status Last Admin Dose Admin Acetaminophen (Tylenol) 650 mg Q4H PRN ORAL Mild Pain/Temp > 100.5 05/17/18 00:00 06/12/18 11:59 05/17/18 08:42 Azithromycin (Zithromax) 1,200 mg ONCE A WEEK ORAL 05/20/18 18:00 05/27/18 17:59 05/20/18 19:00 Ceftriaxone Sodium 1 gm/ Dextrose 55 ml @ 110 mls/hr Q24H IVPB 05/17/18 15:00 05/22/18 14:59 05/20/18 15:49 Diphenoxylate HCl/ Atropine (Lomotil) 2.5 mg Q4H PRN ORAL Diarrhea 05/17/18 08:45 06/16/18 08:44 05/18/18 17:29 Dolutegravir Sodium (Tivicay) 50 mg DAILY ORAL 05/17/18 09:00 06/14/18 08:59 05/21/18 08:46 Folic Acid (Folate) 1 mg DAILY ORAL 05/17/18 09:00 06/14/18 09:29 05/21/18 08:46 Heparin Sodium (Porcine) (Heparin 5000 units/ml) 5,000 units EVERY 8 HOURS SUBQ 05/17/18 22:00 06/12/18 13:59 05/18/18 06:07 Iopamidol (Isovue-300 100ml) 100 ml NOW PRN INJ Radiology Procedure 05/17/18 12:45 06/16/18 12:44 Loperamide HCl (Imodium) 2 mg Q4H PRN ORAL Diarrhea 05/17/18 02:15 06/15/18 10:14 05/20/18 05:49 Metoprolol Tartrate (Lopressor) 50 mg Q12HR ORAL 05/17/18 09:00 06/12/18 05:59 05/19/18 21:43 Metronidazole (Flagyl) 500 mg Q8HR ORAL 05/17/18 06:00 05/22/18 13:59 05/21/18 05:58 Mirtazapine (Remeron) 15 mg BEDTIME ORAL 05/17/18 21:00 06/12/18 20:59 05/19/18 21:42 Morphine Sulfate (Morphine Sulfate) 2 mg Q4H PRN IVP For moderate Pain 4-07/2705/20/18 20:30 05/27/18 20:29 05/21/18 03:31 Morphine Sulfate (Morphine Sulfate) 4 mg Q4H PRN IVP For severe Pain 7-11/2605/20/18 20:30 05/27/18 20:29 05/21/18 08:47 Ondansetron HCl (Zofran) 4 mg Q4H PRN IVP Nausea & Vomiting 05/17/18 00:15 06/12/18 12:14 05/20/18 21:07 Patient Own Medication (Patient's Own Med) 1 ea DAILY ORAL 05/22/18 09:00 06/21/18 08:59 Trimethoprim/ Sulfamethoxazole (Bactrim-DS) 1 tab DAILY ORAL 05/18/18 09:00 05/25/18 08:59 05/21/18 08:46 Vitamin D (Vitamin D) 1,000 intlu DAILY ORAL 05/17/18 09:00 06/12/18 08:59 05/21/18 08:46 Ya Hester MD May 21, 2018 12:13
[2018-05-21] MEDS: cefTRIAXone 1 GM in D5W 55 ML IVPB SCH (15:02)
--- NOTE | 2018-05-21 15:56 | General Progress Note ---
Assessment/Plan Assessment/Plan Assessment and Recs: # Pancytopenia, worsening, with severe diffuse lymphadenopathy worsened since 2018, in the setting Castlemans's disease/KS - outpatinent chemo has been received as recently 09/2017 or so. Hx of HIV, CD4 count very low. He has a very poor memory, says was treated at [facility] S/P Chemo ending 07/17/17. Last PET 08/12 - show stable/not worsening lymphadenopathy. Has very extensive disease on ct scan lympahdenopathy noted throughout --> await final results of axilla lymphadeopathy biopsy, FINAL results pending, flow cytometry has been reviewed and thus far nondiagnostic --> plt trend 300k-->152k->90k-->74k-->60k --> I talked with him regarding getting potentially another biopsy (bulky lymph node v bone marrow biopsy) he has thus far refused --> recommend to obtain VEGF, IL-6 these labs ordered but do take several days/ weeks to come back --> inflammatory makers are elevated which can be c/w flare but are fairly non- specific --> imaging is ordered as well --> outpatient f/u as well for further therapy prn --> treat underlying HIV as per ID service # Anemia of chronic disaese -- workup has been ordered and reviewed --> esr elevated, as is crp --> transfuse if hgb <7 # DVT hx that was diagnosed at outpatient hospital --> inpatient venous duplex is negative for thromboembolism, therefore DOES not require anticoagulants --> have discussed this with patients and patient's mother # Sepsis - PNA, [place], other infection, TB? --> on HIV meds, abx as needed # HIV - On Tivicay and Truvada and Bactrim, CD4 count 64 --> VL surveillance per ID # REENA The timing of this note does not necessarily reflect the time of the patient was seen. Greatly appreciate consultation. Subjective Constitutional: Denies: no symptoms, chills, diaphoresis, fever, malaise, weakness, other HEENT: Denies: no symptoms, eye pain, blurred vision, tearing, double vision, ear pain, ear discharge, nose pain, nose congestion, throat pain, throat swelling, mouth pain, mouth swelling, other Respiratory: Denies: no symptoms, cough, orthopnea, shortness of breath, SOB with excertion, SOB at rest, sputum, stridor, wheezing, other Neurologic/Psychiatric: Denies: no symptoms, anxiety, depressed, emotional problems, headache, numbness, paresthesia, pre-existing deficit, seizure, tingling, tremors, weakness, other Endocrine: Denies: no symptoms, excessive sweating, flushing, intolerance to cold, intolerance to heat, increased hunger, increased thirst, increased urine, unexplained weight gain, unexplained weight loss, other Allergies: Coded Allergies: No Known Allergies (Unverified , 10/21/17) Subjective 05/21: no events to report, no fevers or chills, no night swats, refusing biopsy Objective Last 24 Hour Vital Signs Date Time Temp Pulse Resp B/P (MAP) Pulse Ox O2 Delivery O2 Flow Rate FiO2 05/21/18 12:00 112 05/21/18 12:00 97.5 113 18 93/61 (72) 97 05/21/18 09:00 108 94/64 05/21/18 09:00 Room Air 05/21/18 08:00 113 05/21/18 08:00 98.4 108 20 94/64 (74) 100 05/21/18 04:00 96.6 100 18 111/69 (83) 97 05/21/18 04:00 113 05/21/18 00:00 123 05/21/18 00:00 97.3 111 18 101/65 (77) 95 05/20/18 21:00 Room Air 05/20/18 20:00 110 05/20/18 20:00 97.5 125 19 99/63 (75) 95 05/20/18 16:00 98.9 111 18 95/58 (70) 100 05/20/18 16:00 113 Intake and Output 05/20/18 05/21/18 19:00 07:00 Intake Total 150 ml Balance 150 ml Other 150 ml # Voids 1 # Bowel Movements 1 3 Laboratory Tests 05/21/18 06:36: White Blood Count 4.7L, Red Blood Count 3.43L, Hemoglobin 8.2L, Hematocrit 25.5L , Mean Corpuscular Volume 74L, Mean Corpuscular Hemoglobin 23.9L, Mean Corpuscular Hemoglobin Concent 32.1, Red Cell Distribution Width 17.9H, Platelet Count 60L, Mean Platelet Volume 5.7L, Neutrophils (%) (Auto) , Lymphocytes (%) (Auto) , Monocytes (%) (Auto) , Eosinophils (%) (Auto) , Basophils (%) (Auto) , Differential Total Cells Counted 100, Neutrophils % ( Manual) 71, Lymphocytes % (Manual) 15L, Monocytes % (Manual) 12H, Eosinophils % (Manual) 2, Basophils % (Manual) 0, Band Neutrophils 0, Nucleated Red Blood Cells 2, Platelet Estimate DecreasedL, Platelet Morphology Normal, Polychromasia 1+, Anisocytosis 1+, Microcytosis 1+, Sodium Level 132L, Potassium Level 4.3, Chloride Level 104, Carbon Dioxide Level 23, Anion Gap 6, Blood Urea Nitrogen 18, Creatinine 1.2, Estimat Glomerular Filtration Rate > 60 , Glucose Level 93, Calcium Level 6.8L Height (Feet): 5 Height (Inches): 11.00 Weight (Pounds): 133 Objective Physical Exam: Vitals: reviewed General Appearance: NAD HEENT: normocephalic, atraumatic Neck: non-tender, normal alignment Respiratory/Chest: normal breath sounds bilaterally Cardiovascular/Chest: normal peripheral pulses, normal rate Abdomen: normal bowel sounds, soft, nontender Extremities: normal range of motion Jean Bingham MD May 21, 2018 15:56
[2018-05-21 16:00] VITALS: BP 105/68
--- NOTE | 2018-05-21 16:12 | Surgery Progress Note ---
Surgery Progress Note Subjective Additional Comments Patient states that he wants to go home so he can pay his bills. Denies any discomfort or complaints. States that he does not want another biopsy despite being informed of all possibilities by both surgery medical team and oncology Objective Last 24 Hour Vital Signs Date Time Temp Pulse Resp B/P (MAP) Pulse Ox O2 Delivery O2 Flow Rate FiO2 05/21/18 16:00 98.2 106 20 105/68 (80) 96 05/21/18 12:00 112 05/21/18 12:00 97.5 113 18 93/61 (72) 97 05/21/18 09:00 108 94/64 05/21/18 09:00 Room Air 05/21/18 08:00 113 05/21/18 08:00 98.4 108 20 94/64 (74) 100 05/21/18 04:00 96.6 100 18 111/69 (83) 97 05/21/18 04:00 113 05/21/18 00:00 123 05/21/18 00:00 97.3 111 18 101/65 (77) 95 05/20/18 21:00 Room Air 05/20/18 20:00 110 05/20/18 20:00 97.5 125 19 99/63 (75) 95 I&O Intake and Output 05/20/18 05/21/18 19:00 07:00 Intake Total 150 ml Balance 150 ml Other 150 ml # Voids 1 # Bowel Movements 1 3 Dressing: dry Wound: clean Drains: none Cardiovascular: RSR Respiratory: clear Abdomen: soft, non-tender, present bowel sounds Extremities: no tenderness, no cyanosis Laboratory Tests Test 05/21/18 06:36 White Blood Count 4.7 K/UL (4.8-10.8) L Red Blood Count 3.43 M/UL (4.70-6.10) L Hemoglobin 8.2 G/DL (14.2-18.0) L Hematocrit 25.5 % (42.0-52.0) L Mean Corpuscular Volume 74 FL (80-99) L Mean Corpuscular Hemoglobin 23.9 PG (27.0-31.0) L Mean Corpuscular Hemoglobin Concent 32.1 G/DL (32.0-36.0) Red Cell Distribution Width 17.9 % (11.6-14.8) H Platelet Count 60 K/UL (150-450) L Mean Platelet Volume 5.7 FL (6.5-10.1) L Neutrophils (%) (Auto) % (45.0-75.0) Lymphocytes (%) (Auto) % (20.0-45.0) Monocytes (%) (Auto) % (1.0-10.0) Eosinophils (%) (Auto) % (0.0-3.0) Basophils (%) (Auto) % (0.0-2.0) Differential Total Cells Counted 100 Neutrophils % (Manual) 71 % (45-75) Lymphocytes % (Manual) 15 % (20-45) L Monocytes % (Manual) 12 % (1-10) H Eosinophils % (Manual) 2 % (0-3) Basophils % (Manual) 0 % (0-2) Band Neutrophils 0 % (0-8) Nucleated Red Blood Cells 2 /100 WBC Platelet Estimate Decreased L Platelet Morphology Normal Polychromasia 1+ Anisocytosis 1+ Microcytosis 1+ Sodium Level 132 MMOL/L (136-145) L Potassium Level 4.3 MMOL/L (3.5-5.1) Chloride Level 104 MMOL/L (98-107) Carbon Dioxide Level 23 MMOL/L (21-32) Anion Gap 6 mmol/L (5-15) Blood Urea Nitrogen 18 mg/dL (7-18) Creatinine 1.2 MG/DL (0.55-1.30) Estimat Glomerular Filtration Rate > 60 mL/min (>60) Glucose Level 93 MG/DL (74-106) Calcium Level 6.8 MG/DL (8.5-10.1) L Plan Problems: (1) Lymphadenopathy Assessment & Plan: Needle biopsy inconclusive Needs core or lymph node biopsy discussed with patient he is unsure if he wants biopsy as he just had needle biopsy and does not want another biopsy spent fair amount of time at bedside discussing his history, medical condition, and findings. rational for biopsy given. recommendations given patient states he will think about it will follow up Patient states he will not want another biopsy at this time. oncolongy note noted d/c planning thank you (2) Lymphadenopathy, axillary (3) HIV disease (4) Kaposi disease (5) Castleman disease Walker Solitario May 21, 2018 16:12
--- NOTE | 2018-05-21 18:43 | Internal Med Progress Note ---
Subjective Date of Service: May 21, 2018 Physician Name Adam Padron Attending Physician Alberto Gtz MD Current Medications Medications (Trade) Dose Ordered Sig/Yessica Route PRN Reason Start Time Stop Time Status Last Admin Dose Admin Acetaminophen (Tylenol) 650 mg Q4H PRN ORAL Mild Pain/Temp > 100.5 05/17/18 00:00 06/12/18 11:59 05/17/18 08:42 Azithromycin (Zithromax) 1,200 mg ONCE A WEEK ORAL 05/20/18 18:00 05/27/18 17:59 05/20/18 19:00 Ceftriaxone Sodium 1 gm/ Dextrose 55 ml @ 110 mls/hr Q24H IVPB 05/17/18 15:00 05/22/18 14:59 05/21/18 15:02 Diphenoxylate HCl/ Atropine (Lomotil) 2.5 mg Q4H PRN ORAL Diarrhea 05/17/18 08:45 06/16/18 08:44 05/18/18 17:29 Dolutegravir Sodium (Tivicay) 50 mg DAILY ORAL 05/17/18 09:00 06/14/18 08:59 05/21/18 08:46 Folic Acid (Folate) 1 mg DAILY ORAL 05/17/18 09:00 06/14/18 09:29 05/21/18 08:46 Heparin Sodium (Porcine) (Heparin 5000 units/ml) 5,000 units EVERY 8 HOURS SUBQ 05/17/18 22:00 06/12/18 13:59 05/18/18 06:07 Iopamidol (Isovue-300 100ml) 100 ml NOW PRN INJ Radiology Procedure 05/17/18 12:45 06/16/18 12:44 Loperamide HCl (Imodium) 2 mg Q4H PRN ORAL Diarrhea 05/17/18 02:15 06/15/18 10:14 05/20/18 05:49 Metoprolol Tartrate (Lopressor) 50 mg Q12HR ORAL 05/17/18 09:00 06/12/18 05:59 05/19/18 21:43 Metronidazole (Flagyl) 500 mg Q8HR ORAL 05/17/18 06:00 05/22/18 13:59 05/21/18 14:36 Mirtazapine (Remeron) 15 mg BEDTIME ORAL 05/17/18 21:00 06/12/18 20:59 05/19/18 21:42 Morphine Sulfate (Morphine Sulfate) 2 mg Q4H PRN IVP For moderate Pain -07/2705/20/18 20:30 05/27/18 20:29 05/21/18 03:31 Morphine Sulfate (Morphine Sulfate) 4 mg Q4H PRN IVP For severe Pain 7-11/2605/20/18 20:30 05/27/18 20:29 05/21/18 15:02 Ondansetron HCl (Zofran) 4 mg Q4H PRN IVP Nausea & Vomiting 05/17/18 00:15 06/12/18 12:14 05/20/18 21:07 Patient Own Medication (Patient's Own Med) 1 ea DAILY ORAL 05/22/18 09:00 06/21/18 08:59 Trimethoprim/ Sulfamethoxazole (Bactrim-DS) 1 tab DAILY ORAL 05/18/18 09:00 05/25/18 08:59 05/21/18 08:46 Vitamin D (Vitamin D) 1,000 intlu DAILY ORAL 05/17/18 09:00 06/12/18 08:59 05/21/18 08:46 Allergies: Coded Allergies: No Known Allergies (Unverified , 10/21/17) ROS Limited/Unobtainable: No Constitutional: Reports: no symptoms HEENT: Reports: no symptoms Cardiovascular: Reports: no symptoms Respiratory: Reports: no symptoms Gastrointestinal/Abdominal: Reports: no symptoms Genitourinary: Reports: no symptoms Neurologic/Psychiatric: Reports: no symptoms Subjective 37 YO M admitted with nausea, vomiting and diarrhea. Now hypotension. Cover for Int Med-Dr Gtz. S/P left axillary lymph node biopsy 05/18/18 Objective Last Vital Signs Date Time Temp Pulse Resp B/P (MAP) Pulse Ox O2 Delivery O2 Flow Rate FiO2 05/21/18 16:00 98.2 106 20 105/68 (80) 96 05/21/18 09:00 Room Air Laboratory Tests Test 05/21/18 06:36 White Blood Count 4.7 K/UL (4.8-10.8) L Red Blood Count 3.43 M/UL (4.70-6.10) L Hemoglobin 8.2 G/DL (14.2-18.0) L Hematocrit 25.5 % (42.0-52.0) L Mean Corpuscular Volume 74 FL (80-99) L Mean Corpuscular Hemoglobin 23.9 PG (27.0-31.0) L Mean Corpuscular Hemoglobin Concent 32.1 G/DL (32.0-36.0) Red Cell Distribution Width 17.9 % (11.6-14.8) H Platelet Count 60 K/UL (150-450) L Mean Platelet Volume 5.7 FL (6.5-10.1) L Neutrophils (%) (Auto) % (45.0-75.0) Lymphocytes (%) (Auto) % (20.0-45.0) Monocytes (%) (Auto) % (1.0-10.0) Eosinophils (%) (Auto) % (0.0-3.0) Basophils (%) (Auto) % (0.0-2.0) Differential Total Cells Counted 100 Neutrophils % (Manual) 71 % (45-75) Lymphocytes % (Manual) 15 % (20-45) L Monocytes % (Manual) 12 % (1-10) H Eosinophils % (Manual) 2 % (0-3) Basophils % (Manual) 0 % (0-2) Band Neutrophils 0 % (0-8) Nucleated Red Blood Cells 2 /100 WBC Platelet Estimate Decreased L Platelet Morphology Normal Polychromasia 1+ Anisocytosis 1+ Microcytosis 1+ Sodium Level 132 MMOL/L (136-145) L Potassium Level 4.3 MMOL/L (3.5-5.1) Chloride Level 104 MMOL/L (98-107) Carbon Dioxide Level 23 MMOL/L (21-32) Anion Gap 6 mmol/L (5-15) Blood Urea Nitrogen 18 mg/dL (7-18) Creatinine 1.2 MG/DL (0.55-1.30) Estimat Glomerular Filtration Rate > 60 mL/min (>60) Glucose Level 93 MG/DL (74-106) Calcium Level 6.8 MG/DL (8.5-10.1) L Intake and Output 05/20/18 05/21/18 19:00 07:00 Intake Total 150 ml Balance 150 ml Other 150 ml # Voids 1 # Bowel Movements 1 3 Objective PHYSICAL EXAMINATION: VITAL SIGNS: Temperature 99.7, respirations 24, pulse 128, and blood pressure 96/59. GENERAL: The patient is thin-appearing male, in no apparent distress. HEENT: Eyes, pupils equal and responsive to light and accommodation. Extraocular movements intact. NECK: Supple without lymphadenopathy. CHEST: Lungs are clear to auscultation bilaterally without wheezes or rales. CARDIOVASCULAR: Regular rhythm and rate. S1 and S2 are normal without murmurs, rubs, or gallops. ABDOMEN: Soft and nondistended with decreased bowel sounds. No evidence of hepatosplenomegaly. Currently, no rebound or guarding noted. EXTREMITIES: Negative for clubbing, cyanosis, or edema. RECTAL: Refused. GENITAL: Refused. NEUROLOGIC: Cranial nerves II through XII are grossly intact without focal deficits. Motor strength is 5/5 bilaterally intact. Deep tendon reflexes are 2+, plantar. Assessment/Plan Assessment/Plan ASSESSMENT: This is a 37-year-old male: 1. Nausea with vomiting. 2. Diarrhea. 3. Vertigo. 4. Hypotension. 5. HIV. 6. Kaposi sarcoma. 7. Castleman disease. 8. New Fever 9. Lymphadenopathy 10. Anemia TREATMENT: 1. Nausea/vomiting/diarrhea. Gastroenterology consultation with Dr. Michael Grande. Stool cultures including Clostridium difficile, stool culture, and ova and parasite are pending. T he patient has been started empirically on Zosyn. An infectious disease consultation has been obtained with Dr Mobley. We will follow recommendations of Gastroenterology and Infectious Disease. 2. Hypotension. This may be secondary to sepsis. Continue Zosyn as above. 3. Kaposi sarcoma. The patient is status post chemotherapy. 4. Castleman disease. 5. Antibiotics=ceftriaxone and flagyl per ID. 6. continue tamiflu 7. Fever-follow ID recs 8. S/P left axillary lymph node biopsy 05/18/18-await results 9. S/P transfusion 1 unit PRBC 05/18/18. Adam Padron MD May 21, 2018 18:43
--- NOTE | 2018-05-21 19:22 | NUR ---
HAND-OFF: Report given to Amanda/RN, Patient is in stable condition.Endorsed plan of care.
--- NOTE | 2018-05-21 19:30 | NUR ---
NURSE NOTES: Received pt from [facility]. Pt awake, alert, and talkative. Bed in lowest position. Call light within reach. Will continue to monitor.
[2018-05-21 20:00] VITALS: BP 97/61
[2018-05-22] VITALS: BP 95/62
[2018-05-22 04:00] VITALS: BP 108/68
[2018-05-22] MEDS: Morphine Sulfate 2mg/ml Inj(IV/IM USE ONLY) IVP PRN ×2 (04:13→09:39)
[2018-05-22] MEDS: Heparin 5000 units/ml inj SUBQ SCH (05:42)
[2018-05-22] MEDS: metroNIDAZOLE 500mg tab ORAL SCH (05:46)
[2018-05-22 06:40] LABS: HEMATOCRIT 24.9 % (42.0-52.0); HEMOGLOBIN 8.1 G/DL (14.2-18.0); MEAN CORPUSCULAR VOLUME 76 FL (80-99); PLATELET COUNT 56 K/UL (150-450); RED BLOOD COUNT 3.28 M/UL (4.70-6.10); WHITE BLOOD COUNT 4.7 K/UL (4.8-10.8)
[2018-05-22 06:50] LABS: ANION GAP 4 mmol/L (5-15); BLOOD UREA NITROGEN 15 mg/dL (7-18); CALCIUM 6.6 MG/DL (8.5-10.1); CARBON DIOXIDE 25 MMOL/L (21-32); CHLORIDE 103 MMOL/L (98-107); CREATININE 1.2 MG/DL (0.55-1.30); POTASSIUM 4.3 MMOL/L (3.5-5.1); SODIUM 132 MMOL/L (136-145)
--- NOTE | 2018-05-22 06:59 | Infectious Diseases Prog Note ---
Assessment/Plan Assessment/Plan SEvere sepsis Fever- r/o opportunistic infection (ie CMV, MAC, recurrence Castleman) Diffuse lymphadenopathy- Ddx: CMV disease (ie colitis), Diffuse MAC, recurrente Castleman, HIV related, lymphoma -05/18 s/p L axillary lymph node biopsy -path p - Stains - pend -flow cytometry neg -bacterial cx NTD; fungal, viral and AFB - NGTD -CT chest: Mediastinal, axillary, and supraclavicular lymphadenopathy, enlarged compared to the prior CT of the chest. Largest left axillary node measures 3.4 x 2.4 cm. Largest supraclavicular node on the left measures 3.8 x 2.8 cm. Largest mediastinal nodes include a 2.2 x 1.6 cm pretracheal node and a 2.3 x 1.6 cm subcarinal node. Small layering right pleural effusion with fluid in the minor fissure. Kasie-bronchovascular groundglass haziness and nodularity in the right lower lobe. Scattered paraseptal emphysematous changes, predominantly in the upper lung zones. -CT abd/p: Diffuse edema and haziness throughout the mesenteric root. Not significantly changed compared to the visualized portions of the mesenteric root in the prior CT of the chest dated 10/22/17. Mesenteric, retroperitoneal, and inguinal lymphadenopathy. Largest retroperitoneal node measures 3.1 x 2.5 x 2.0 cm to left of the IVC (series 8 image 56, series 10 image 23). Largest left inguinal left node measures 2.9 x 2.5 cm (series 8 image 90). Mild fluid distention and air-fluid levels throughout the colon, which may suggest mild colitis and/or diarrheal disease. No evidence of bowel obstruction. Cholelithiasis without gallbladder wall thickening or ductal dilatation. Scattered subcentimeter hypodensities throughout the spleen, possibly tiny simple cysts. Subcentimeter simple-appearing left renal cortical cysts. Mild urinary bladder wall thickening, most likely related to underdistention. -CT head: . Opacification of the right maxillary sinus, right frontal sinus , and mucosal thickening throughout the ethmoid air cells and left maxillary sinus, suggestive of sinusitis. Partial opacification of the inferior posterior aspect of the left mastoid air cells, suggesting small left mastoid effusion. -Bcx NTD -CXR: No acute findings -Neg: Infl sc, Cr Ag No leukocytosis Nausea/vomiting/diarrhea -Cdiff neg -stool cx normal phi - O and P neg HIV on ARV (dx 1999)- on Truvada and Dolutegravir, now AIDS -04/2018 HIV VL p, Cd4 64 (9.1%); VL 100 ?decrease due to non compliance, however low viremia (will expect higher viremia if non compliance) -10/2017 HIV VL ND, CD4 87 (12.4%) -09/01/17 - CD4 192 and VL - ND (Out Side labs) -no hx of resistance ; previously on Truvada, Reyataz and Norvir -Has been above 200 in the past. Came down with Chemo REENA, improving Microcytic anemia Thrombocytopenia hx pancreatitis 10/2017 - 10/22/17- CT show reticular opacity and significant lymphadenopathy 10/23/17 - CT abd/pel Lymphadenopathy, Enlarged Pancrease mild B/L hydronephrosis -Blasto, Histo, CrAg neg 11/21/16 - Quantiferon negative (Out Side lab) hx of Kaposi's sarcoma/Castleman's disease s/p chemotherapy - S/P Chemo ending 07/17/17 Last PET 08/12/17 - show stable/not worsening lymphadenopathy Hep C+ hx of Chronic Hep B, VL <15 09/01/17 hx of DVT Plan: - Monitor off abx Continue ARV Tx and PPx for opportunistic organisms - 05/21/18 SP Ceftriaxone #5 and Flagyl #7 for colitis -05/15/18 SP empiric IV Vancomycin #4 and switch empiric Zosyn #3 to Ceftriaxone and Flagyl -05/16/18 SP Tamiflu #4 - 05/12 SP Cefepime x1 -f/u cx -Monitor CBC/CMP, temperatures -f/u AFB bcx, CMV PCR, -Histoplasma ag urine, COcci ab -aspiration precautions -GI f/u -fu axillary lymph node biopsy -pathology and for cultures (AFB, fungal, bacterial, viral), MTB PCR - If lymph node biopsy unrevealing, may need bone marrow biopsy Will continue to follow along with you. Subjective Allergies: Coded Allergies: No Known Allergies (Unverified , 10/21/17) Subjective BM x 2 Patient afebrile Satting well on RA No leukocytosis Objective Vital Signs Last 24 Hour Vital Signs Date Time Temp Pulse Resp B/P (MAP) Pulse Ox O2 Delivery O2 Flow Rate FiO2 05/22/18 00:00 98.5 109 20 95/62 (73) 99 05/22/18 00:00 105 05/21/18 21:00 Room Air 05/21/18 20:00 98.3 112 20 97/61 (73) 94 05/21/18 20:00 105 05/21/18 16:00 98.2 106 20 105/68 (80) 96 05/21/18 16:00 108 05/21/18 12:00 112 05/21/18 12:00 97.5 113 18 93/61 (72) 97 05/21/18 09:00 108 94/64 05/21/18 09:00 Room Air 05/21/18 08:00 113 05/21/18 08:00 98.4 108 20 94/64 (74) 100 Height (Feet): 5 Height (Inches): 11.00 Weight (Pounds): 133 Objective General: NAD, Sattign well on RA Head: NCAT PERRL, EOMI Respiratory: CTAB Cardiovascular: RRR, S1, S2 Gastrointestinal: Soft, NT, ND, + BS Neurologic: alert, oriented x3, responsive Laboratory Tests Test 05/22/18 05:30 White Blood Count 4.7 K/UL (4.8-10.8) L Red Blood Count 3.28 M/UL (4.70-6.10) L Hemoglobin 8.1 G/DL (14.2-18.0) L Hematocrit 24.9 % (42.0-52.0) L Mean Corpuscular Volume 76 FL (80-99) L Mean Corpuscular Hemoglobin 24.6 PG (27.0-31.0) L Mean Corpuscular Hemoglobin Concent 32.5 G/DL (32.0-36.0) Red Cell Distribution Width 18.0 % (11.6-14.8) H Platelet Count 56 K/UL (150-450) L Mean Platelet Volume 6.2 FL (6.5-10.1) L Neutrophils (%) (Auto) % (45.0-75.0) Lymphocytes (%) (Auto) % (20.0-45.0) Monocytes (%) (Auto) % (1.0-10.0) Eosinophils (%) (Auto) % (0.0-3.0) Basophils (%) (Auto) % (0.0-2.0) Neutrophils % (Manual) Pending Lymphocytes % (Manual) Pending Platelet Estimate Pending Platelet Morphology Pending Sodium Level 132 MMOL/L (136-145) L Potassium Level 4.3 MMOL/L (3.5-5.1) Chloride Level 103 MMOL/L (98-107) Carbon Dioxide Level 25 MMOL/L (21-32) Anion Gap 4 mmol/L (5-15) L Blood Urea Nitrogen 15 mg/dL (7-18) Creatinine 1.2 MG/DL (0.55-1.30) Estimat Glomerular Filtration Rate > 60 mL/min (>60) Glucose Level 95 MG/DL (74-106) Calcium Level 6.6 MG/DL (8.5-10.1) L Current Medications Medications (Trade) Dose Ordered Sig/Yessica Route PRN Reason Start Time Stop Time Status Last Admin Dose Admin Acetaminophen (Tylenol) 650 mg Q4H PRN ORAL Mild Pain/Temp > 100.5 05/17/18 00:00 06/12/18 11:59 05/17/18 08:42 Azithromycin (Zithromax) 1,200 mg ONCE A WEEK ORAL 05/20/18 18:00 05/27/18 17:59 05/20/18 19:00 Ceftriaxone Sodium 1 gm/ Dextrose 55 ml @ 110 mls/hr Q24H IVPB 05/17/18 15:00 05/22/18 14:59 05/21/18 15:02 Diphenoxylate HCl/ Atropine (Lomotil) 2.5 mg Q4H PRN ORAL Diarrhea 05/17/18 08:45 06/16/18 08:44 05/18/18 17:29 Dolutegravir Sodium (Tivicay) 50 mg DAILY ORAL 05/17/18 09:00 06/14/18 08:59 05/21/18 08:46 Folic Acid (Folate) 1 mg DAILY ORAL 05/17/18 09:00 06/14/18 09:29 05/21/18 08:46 Heparin Sodium (Porcine) (Heparin 5000 units/ml) 5,000 units EVERY 8 HOURS SUBQ 05/17/18 22:00 06/12/18 13:59 05/18/18 06:07 Iopamidol (Isovue-300 100ml) 100 ml NOW PRN INJ Radiology Procedure 05/17/18 12:45 06/16/18 12:44 Loperamide HCl (Imodium) 2 mg Q4H PRN ORAL Diarrhea 05/17/18 02:15 06/15/18 10:14 05/20/18 05:49 Metoprolol Tartrate (Lopressor) 50 mg Q12HR ORAL 05/17/18 09:00 06/12/18 05:59 05/19/18 21:43 Metronidazole (Flagyl) 500 mg Q8HR ORAL 05/17/18 06:00 05/22/18 13:59 05/22/18 05:46 Mirtazapine (Remeron) 15 mg BEDTIME ORAL 05/17/18 21:00 06/12/18 20:59 05/21/18 21:11 Morphine Sulfate (Morphine Sulfate) 2 mg Q4H PRN IVP For moderate Pain 4-07/2705/20/18 20:30 05/27/18 20:29 05/22/18 04:13 Morphine Sulfate (Morphine Sulfate) 4 mg Q4H PRN IVP For severe Pain 7-11/2605/20/18 20:30 05/27/18 20:29 05/21/18 15:02 Ondansetron HCl (Zofran) 4 mg Q4H PRN IVP Nausea & Vomiting 05/17/18 00:15 06/12/18 12:14 05/20/18 21:07 Patient Own Medication (Patient's Own Med) 1 ea DAILY ORAL 05/22/18 09:00 06/21/18 08:59 Trimethoprim/ Sulfamethoxazole (Bactrim-DS) 1 tab DAILY ORAL 05/18/18 09:00 05/25/18 08:59 05/21/18 08:46 Vitamin D (Vitamin D) 1,000 intlu DAILY ORAL 05/17/18 09:00 06/12/18 08:59 05/21/18 08:46 Sterling Ortiz MD May 22, 2018 06:59
--- NOTE | 2018-05-22 07:33 | NUR ---
HAND-OFF: Report given to TRES Beckwith. Pt stable.
[2018-05-22 08:00] VITALS: BP 102/66
--- NOTE | 2018-05-22 08:35 | NUR ---
NURSE NOTES: Pt in bed in low position, HoB in semi fowlers, call light at bedside, pt makes needs known, Ox4, pt reports pain level of 5 out of 10, pt BP runs low and heart rate is tachy (130s), pt has urinal at bedside, pt reports nausea, IV intact and patent asymptomatic, breakfast at bedside, no s/s of distress or sob noted.
[2018-05-22] MEDS ORDERED: TRUVADA ORAL SCH (09:00)
[2018-05-22] MEDS: Vitamin D 1000 IU Tab ORAL SCH (09:38)
[2018-05-22] MEDS: Bactrim-DS 1 tab ORAL SCH (09:38)
[2018-05-22] MEDS: Metoprolol Tartrate 50mg tab ORAL SCH (09:38)
[2018-05-22] MEDS: Dolutegravir Sodium 50mg tab ORAL SCH (09:38)
--- NOTE | 2018-05-22 10:59 | Surgery Progress Note ---
Surgery Progress Note Subjective Additional Comments no acute events. comfortable. no n/v/f/c. tachycardic. labs noted. still refusing biopsy. wants to go home Objective Last 24 Hour Vital Signs Date Time Temp Pulse Resp B/P (MAP) Pulse Ox O2 Delivery O2 Flow Rate FiO2 05/22/18 10:09 97.9 05/22/18 09:38 132 102/66 05/22/18 08:31 Room Air 05/22/18 08:00 97.9 132 18 102/66 (78) 98 05/22/18 07:47 129 05/22/18 04:00 103 05/22/18 04:00 98.0 113 20 108/68 (81) 99 05/22/18 00:00 98.5 109 20 95/62 (73) 99 05/22/18 00:00 105 05/21/18 21:00 Room Air 05/21/18 20:00 98.3 112 20 97/61 (73) 94 05/21/18 20:00 105 05/21/18 16:00 98.2 106 20 105/68 (80) 96 05/21/18 16:00 108 05/21/18 12:00 112 05/21/18 12:00 97.5 113 18 93/61 (72) 97 I&O Intake and Output 05/21/18 05/22/18 18:59 06:59 Intake Total 240 ml Output Total 900 ml 300 ml Balance -660 ml -300 ml Intake Oral 240 ml Output Urine Total 900 ml 300 ml # Bowel Movements 1 3 Cardiovascular: other Respiratory: clear Abdomen: soft, non-tender, present bowel sounds, non-distended Extremities: no tenderness, no cyanosis Laboratory Tests Test 05/22/18 05:30 White Blood Count 4.7 K/UL (4.8-10.8) L Red Blood Count 3.28 M/UL (4.70-6.10) L Hemoglobin 8.1 G/DL (14.2-18.0) L Hematocrit 24.9 % (42.0-52.0) L Mean Corpuscular Volume 76 FL (80-99) L Mean Corpuscular Hemoglobin 24.6 PG (27.0-31.0) L Mean Corpuscular Hemoglobin Concent 32.5 G/DL (32.0-36.0) Red Cell Distribution Width 18.0 % (11.6-14.8) H Platelet Count 56 K/UL (150-450) L Mean Platelet Volume 6.2 FL (6.5-10.1) L Neutrophils (%) (Auto) % (45.0-75.0) Lymphocytes (%) (Auto) % (20.0-45.0) Monocytes (%) (Auto) % (1.0-10.0) Eosinophils (%) (Auto) % (0.0-3.0) Basophils (%) (Auto) % (0.0-2.0) Neutrophils % (Manual) Pending Lymphocytes % (Manual) Pending Platelet Estimate Pending Platelet Morphology Pending Sodium Level 132 MMOL/L (136-145) L Potassium Level 4.3 MMOL/L (3.5-5.1) Chloride Level 103 MMOL/L (98-107) Carbon Dioxide Level 25 MMOL/L (21-32) Anion Gap 4 mmol/L (5-15) L Blood Urea Nitrogen 15 mg/dL (7-18) Creatinine 1.2 MG/DL (0.55-1.30) Estimat Glomerular Filtration Rate > 60 mL/min (>60) Glucose Level 95 MG/DL (74-106) Calcium Level 6.6 MG/DL (8.5-10.1) L Plan Problems: (1) Lymphadenopathy Assessment & Plan: Needle biopsy inconclusive Needs core or lymph node biopsy discussed with patient he is unsure if he wants biopsy as he just had needle biopsy and does not want another biopsy spent fair amount of time at bedside discussing his history, medical condition, and findings. rational for biopsy given. recommendations given patient states he will think about it will follow up Patient states he will not want another biopsy at this time. oncolongy note noted still refusing LN biopsy or bone marrow biopsy. tachlaura thank you (2) Lymphadenopathy, axillary (3) HIV disease (4) Kaposi disease (5) Castleman disease Walker Solitario May 22, 2018 10:59
[2018-05-22] MEDS: Lomotil 2.5mg tab ORAL PRN (11:59)
[2018-05-22 12:00] VITALS: BP 97/60
--- NOTE | 2018-05-22 12:00 | GI Progress Note ---
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 SNOMED: 56050022 (2) Cyclic vomiting syndrome ICD Codes: G43.A0 - Cyclical vomiting, not intractable SNOMED: 97268288 (3) Nausea & vomiting ICD Codes: R11.2 - Nausea with vomiting, unspecified SNOMED: 87431285 (4) Electrolyte imbalance ICD Codes: E87.8 - Other disorders of electrolyte and fluid balance, not elsewhere classified SNOMED: 367585931 (5) Diarrhea ICD Codes: R19.7 - Diarrhea, unspecified SNOMED: 12607305 (6) Gastroenteritis ICD Codes: K52.9 - Noninfective gastroenteritis and colitis, unspecified SNOMED: 19936244 (7) Dehydration ICD Codes: E86.0 - Dehydration SNOMED: 00223248 Status: stable Status Narrative Discussed with Dr. Grande Assessment/Plan Recent history of unremarkable endoscopy and colonoscopy Marijuana use Kaposi Disease s/p chemotherapy Microcytic anemia C. difficile is negative stool culture negative O&P negative advance diet hold Venofer given elevated ferritin levels Zofran as needed OB stool r/o GI bleed monitor H&H, prn transfusions Lomotil as needed ppi IV and p.o. hydration plus electrolyte correction fu labs No plans for colonoscopy at this time DC planning The patient was seen and examined at bedside and all new and available data was reviewed in the patients chart. I agree with the above findings, impression and plan. (Patient seen earlier today. Signature stamp does not reflect patient encounter time.). - Michael Grande MD Subjective Subjective Patient states his diarrhea has improved, semi-formed stools Objective Last 24 Hour Vital Signs Date Time Temp Pulse Resp B/P (MAP) Pulse Ox O2 Delivery O2 Flow Rate FiO2 05/22/18 10:09 97.9 05/22/18 09:38 132 102/66 05/22/18 08:31 Room Air 05/22/18 08:00 97.9 132 18 102/66 (78) 98 05/22/18 07:47 129 05/22/18 04:00 103 05/22/18 04:00 98.0 113 20 108/68 (81) 99 05/22/18 00:00 98.5 109 20 95/62 (73) 99 4/5/19 00:00 105 05/21/18 21:00 Room Air 05/21/18 20:00 98.3 112 20 97/61 (73) 94 05/21/18 20:00 105 05/21/18 16:00 98.2 106 20 105/68 (80) 96 05/21/18 16:00 108 05/21/18 12:00 112 05/21/18 12:00 97.5 113 18 93/61 (72) 97 Intake and Output 05/21/18 05/22/18 18:59 06:59 Intake Total 240 ml Output Total 900 ml 300 ml Balance -660 ml -300 ml Intake Oral 240 ml Output Urine Total 900 ml 300 ml # Bowel Movements 1 3 Laboratory Tests Test 05/22/18 05:30 White Blood Count 4.7 K/UL (4.8-10.8) L Red Blood Count 3.28 M/UL (4.70-6.10) L Hemoglobin 8.1 G/DL (14.2-18.0) L Hematocrit 24.9 % (42.0-52.0) L Mean Corpuscular Volume 76 FL (80-99) L Mean Corpuscular Hemoglobin 24.6 PG (27.0-31.0) L Mean Corpuscular Hemoglobin Concent 32.5 G/DL (32.0-36.0) Red Cell Distribution Width 18.0 % (11.6-14.8) H Platelet Count 56 K/UL (150-450) L Mean Platelet Volume 6.2 FL (6.5-10.1) L Neutrophils (%) (Auto) % (45.0-75.0) Lymphocytes (%) (Auto) % (20.0-45.0) Monocytes (%) (Auto) % (1.0-10.0) Eosinophils (%) (Auto) % (0.0-3.0) Basophils (%) (Auto) % (0.0-2.0) Differential Total Cells Counted 100 Neutrophils % (Manual) 69 % (45-75) Lymphocytes % (Manual) 22 % (20-45) Monocytes % (Manual) 6 % (1-10) Eosinophils % (Manual) 3 % (0-3) Basophils % (Manual) 0 % (0-2) Band Neutrophils 0 % (0-8) Platelet Estimate Decreased L Platelet Morphology Normal Hypochromasia 2+ Anisocytosis 2+ Microcytosis 1+ Spherocytes 1+ Sodium Level 132 MMOL/L (136-145) L Potassium Level 4.3 MMOL/L (3.5-5.1) Chloride Level 103 MMOL/L (98-107) Carbon Dioxide Level 25 MMOL/L (21-32) Anion Gap 4 mmol/L (5-15) L Blood Urea Nitrogen 15 mg/dL (7-18) Creatinine 1.2 MG/DL (0.55-1.30) Estimat Glomerular Filtration Rate > 60 mL/min (>60) Glucose Level 95 MG/DL (74-106) Calcium Level 6.6 MG/DL (8.5-10.1) L Height (Feet): 5 Height (Inches): 11.00 Weight (Pounds): 133 General Appearance: WD/WN, no apparent distress, alert, thin Cardiovascular: normal rate Respiratory/Chest: normal breath sounds, no respiratory distress Abdominal Exam: normal bowel sounds, non tender, soft Extremities: normal range of motion, non-tender Simeon Fall [employer] OPER[employer] May 22, 2018 12:00
[2018-05-22] MEDS ORDERED: METOPROLOL TART50 MG ORAL (12:46)
[2018-05-22] MEDS ORDERED: LOMOTIL TABLET1 EACH ORAL (12:46)
--- NOTE | 2018-05-22 12:49 | Pulmonology Progress Note ---
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 CT chest reviewed: multiple axillary and hilar enlarged nodules., I asked the general surgeon for excisional biopsy d/w pathologist, the specimen form the LN has lots of plasma cells, awaiting more staining dc home with f/u with primary, informed already, will need chemotherapy as outpatient. Subjective ROS Limited/Unobtainable: No Constitutional: Reports: no symptoms HEENT: Repors: no symptoms Respiratory: Reports: no symptoms Allergies: Coded Allergies: No Known Allergies (Unverified , 10/21/17) Objective Last 24 Hour Vital Signs Date Time Temp Pulse Resp B/P (MAP) Pulse Ox O2 Delivery O2 Flow Rate FiO2 05/22/18 12:00 97.5 102 18 97/60 (72) 98 05/22/18 10:09 97.9 05/22/18 09:38 132 102/66 05/22/18 08:31 Room Air 05/22/18 08:00 97.9 132 18 102/66 (78) 98 05/22/18 07:47 129 05/22/18 04:00 103 05/22/18 04:00 98.0 113 20 108/68 (81) 99 05/22/18 00:00 98.5 109 20 95/62 (73) 99 05/22/18 00:00 105 05/21/18 21:00 Room Air 05/21/18 20:00 98.3 112 20 97/61 (73) 94 05/21/18 20:00 105 05/21/18 16:00 98.2 106 20 105/68 (80) 96 05/21/18 16:00 108 Intake and Output 05/21/18 05/22/18 18:59 06:59 Intake Total 240 ml Output Total 900 ml 300 ml Balance -660 ml -300 ml Intake Oral 240 ml Output Urine Total 900 ml 300 ml # Bowel Movements 1 3 Objective General Appearance: cachetic HEENT: normocephalic, atraumatic Respiratory/Chest: chest wall non-tender, lungs clear Cardiovascular: normal peripheral pulses, normal rate Abdomen: normal bowel sounds, no organomegaly Genitourinary: normal external genitalia Extremities: no clubbing Neurologic/Psychiatric: computer aide II-XII grossly normal Laboratory Tests 05/22/18 05:30: White Blood Count 4.7L, Red Blood Count 3.28L, Hemoglobin 8.1L, Hematocrit 24.9L , Mean Corpuscular Volume 76L, Mean Corpuscular Hemoglobin 24.6L, Mean Corpuscular Hemoglobin Concent 32.5, Red Cell Distribution Width 18.0H, Platelet Count 56L, Mean Platelet Volume 6.2L, Neutrophils (%) (Auto) , Lymphocytes (%) (Auto) , Monocytes (%) (Auto) , Eosinophils (%) (Auto) , Basophils (%) (Auto) , Differential Total Cells Counted 100, Neutrophils % ( Manual) 69, Lymphocytes % (Manual) 22, Monocytes % (Manual) 6, Eosinophils % ( Manual) 3, Basophils % (Manual) 0, Band Neutrophils 0, Platelet Estimate DecreasedL, Platelet Morphology Normal, Hypochromasia 2+, Anisocytosis 2+, Microcytosis 1+, Spherocytes 1+, Sodium Level 132L, Potassium Level 4.3, Chloride Level 103, Carbon Dioxide Level 25, Anion Gap 4L, Blood Urea Nitrogen 15, Creatinine 1.2, Estimat Glomerular Filtration Rate > 60, Glucose Level 95, Calcium Level 6.6L Current Medications Medications (Trade) Dose Ordered Sig/Yessica Route PRN Reason Start Time Stop Time Status Last Admin Dose Admin Acetaminophen (Tylenol) 650 mg Q4H PRN ORAL Mild Pain/Temp > 100.5 05/17/18 00:00 06/12/18 11:59 05/17/18 08:42 Azithromycin (Zithromax) 1,200 mg ONCE A WEEK ORAL 05/20/18 18:00 05/27/18 17:59 05/20/18 19:00 Ceftriaxone Sodium 1 gm/ Dextrose 55 ml @ 110 mls/hr Q24H IVPB 05/17/18 15:00 05/22/18 14:59 05/21/18 15:02 Diphenoxylate HCl/ Atropine (Lomotil) 2.5 mg Q4H PRN ORAL Diarrhea 05/17/18 08:45 06/16/18 08:44 05/22/18 11:59 Dolutegravir Sodium (Tivicay) 50 mg DAILY ORAL 05/17/18 09:00 06/14/18 08:59 05/22/18 09:38 Folic Acid (Folate) 1 mg DAILY ORAL 05/17/18 09:00 06/14/18 09:29 05/22/18 09:38 Heparin Sodium (Porcine) (Heparin 5000 units/ml) 5,000 units EVERY 8 HOURS SUBQ 05/17/18 22:00 06/12/18 13:59 05/18/18 06:07 Iopamidol (Isovue-300 100ml) 100 ml NOW PRN INJ Radiology Procedure 05/17/18 12:45 06/16/18 12:44 Loperamide HCl (Imodium) 2 mg Q4H PRN ORAL Diarrhea 05/17/18 02:15 06/15/18 10:14 05/20/18 05:49 Metoprolol Tartrate (Lopressor) 50 mg Q12HR ORAL 05/17/18 09:00 06/12/18 05:59 05/22/18 09:38 Metronidazole (Flagyl) 500 mg Q8HR ORAL 05/17/18 06:00 05/22/18 13:59 05/22/18 05:46 Mirtazapine (Remeron) 15 mg BEDTIME ORAL 05/17/18 21:00 06/12/18 20:59 05/21/18 21:11 Morphine Sulfate (Morphine Sulfate) 2 mg Q4H PRN IVP For moderate Pain 4-07/2705/20/18 20:30 05/27/18 20:29 05/22/18 09:39 Morphine Sulfate (Morphine Sulfate) 4 mg Q4H PRN IVP For severe Pain 7-1005/20/18 20:30 05/27/18 20:29 05/21/18 15:02 Ondansetron HCl (Zofran) 4 mg Q4H PRN IVP Nausea & Vomiting 05/17/18 00:15 06/12/18 12:14 05/22/18 09:39 Patient Own Medication (Patient's Own Med) 1 ea DAILY ORAL 05/22/18 09:00 5/5/19 08:59 05/22/18 09:38 Trimethoprim/ Sulfamethoxazole (Bactrim-DS) 1 tab DAILY ORAL 05/18/18 09:00 05/25/18 08:59 05/22/18 09:38 Vitamin D (Vitamin D) 1,000 intlu DAILY ORAL 05/17/18 09:00 06/12/18 08:59 05/22/18 09:38 Ya Hester MD May 22, 2018 12:49
--- NOTE | 2018-05-22 15:30 | NUR ---
NURSE NOTES: Patient alert and oriented, calm and cooperative. Mother at bedside to transport patient home via personal car. Peripheral IV site discontinued, no bleeding noted. Armband removed, belongings list check and sent home with patient. Discharge instructions and home medication reconciliation given. Info packet for sepsis given. Both prescriptions given to patient. Patient taken to front door via wheelchair and left with mother in their personal car.
--- NOTE | 2018-05-22 17:43 | General Progress Note ---
Assessment/Plan Assessment/Plan Assessment and Recs: # Pancytopenia, worsening, with severe diffuse lymphadenopathy worsened since 2018, in the setting Castlemans's disease/KS - outpatinent chemo has been received as recently 09/2017 or so. Hx of HIV, CD4 count very low. He has a very poor memory, says was treated at [facility] S/P Chemo ending 07/17/17. Last PET 08/12 - show stable/not worsening lymphadenopathy. Has very extensive disease on ct scan lympahdenopathy noted throughout --> await final results of axilla lymphadeopathy biopsy, FINAL results pending, flow cytometry has been reviewed and thus far nondiagnostic --> plt trend 300k-->152k->90k-->74k-->60k-->56k (REPEAT IN 4 days) --> I talked with him regarding getting potentially another biopsy (bulky lymph node v bone marrow biopsy) he has thus far refused on both 05/21 and 05/22 --> recommend to obtain VEGF, IL-6 these labs ordered but do take several days/ weeks to come back --> inflammatory makers are elevated which can be c/w flare but are fairly non- specific --> imaging is ordered as well --> outpatient f/u as well for further therapy prn --> treat underlying HIV/AIDS as per ID service # Anemia of chronic disaese -- workup has been ordered and reviewed --> esr elevated, as is crp --> transfuse if hgb <7 # DVT hx that was diagnosed at outpatient hospital --> inpatient venous duplex is negative for thromboembolism, therefore DOES not require anticoagulants --> have discussed this with patients and patient's mother # Sepsis - PNA, [place], other infection, TB? --> on HIV meds, abx as needed # HIV - On Tivicay and Truvada and Bactrim, CD4 count 64 --> VL surveillance per ID # REENA The timing of this note does not necessarily reflect the time of the patient was seen. Greatly appreciate consultation. Subjective HEENT: Denies: no symptoms, eye pain, blurred vision, tearing, double vision, ear pain, ear discharge, nose pain, nose congestion, throat pain, throat swelling, mouth pain, mouth swelling, other Cardiovascular: Denies: no symptoms, chest pain, edema, irregular heart rate, lightheadedness, palpitations, syncope, other Respiratory: Denies: no symptoms, cough, orthopnea, shortness of breath, SOB with excertion, SOB at rest, sputum, stridor, wheezing, other Gastrointestinal/Abdominal: Denies: no symptoms, abdomen distended, abdominal pain, black stools, tarry stools, blood in stool, constipated, diarrhea, difficulty swallowing, nausea, poor appetite, poor fluid intake, rectal bleeding , vomiting, other Genitourinary: Denies: no symptoms, burning, discharge, frequency, flank pain, hematuria, incontinence, pain, urgency, other Neurologic/Psychiatric: Denies: no symptoms, anxiety, depressed, emotional problems, headache, numbness, paresthesia, pre-existing deficit, seizure, tingling, tremors, weakness, other Endocrine: Denies: no symptoms, excessive sweating, flushing, intolerance to cold, intolerance to heat, increased hunger, increased thirst, increased urine, unexplained weight gain, unexplained weight loss, other Allergies: Coded Allergies: No Known Allergies (Unverified , 10/21/17) Subjective 05/21: no events to report, no fevers or chills, no night swats, refusing biopsy 05/22: still doesn't want biopsy, potential dc today to home Objective Last 24 Hour Vital Signs Date Time Temp Pulse Resp B/P (MAP) Pulse Ox O2 Delivery O2 Flow Rate FiO2 05/22/18 12:00 97.5 102 18 97/60 (72) 98 05/22/18 11:36 105 05/22/18 10:09 97.9 05/22/18 09:38 132 102/66 05/22/18 08:31 Room Air 05/22/18 08:00 97.9 132 18 102/66 (78) 98 05/22/18 07:47 129 05/22/18 04:00 103 05/22/18 04:00 98.0 113 20 108/68 (81) 99 05/22/18 00:00 98.5 109 20 95/62 (73) 99 05/22/18 00:00 105 05/21/18 21:00 Room Air 05/21/18 20:00 98.3 112 20 97/61 (73) 94 05/21/18 20:00 105 Intake and Output 05/21/18 05/22/18 19:00 07:00 Intake Total 240 ml Output Total 900 ml 300 ml Balance -660 ml -300 ml Intake Oral 240 ml Output Urine Total 900 ml 300 ml # Bowel Movements 1 3 Laboratory Tests 05/22/18 05:30: White Blood Count 4.7L, Red Blood Count 3.28L, Hemoglobin 8.1L, Hematocrit 24.9L , Mean Corpuscular Volume 76L, Mean Corpuscular Hemoglobin 24.6L, Mean Corpuscular Hemoglobin Concent 32.5, Red Cell Distribution Width 18.0H, Platelet Count 56L, Mean Platelet Volume 6.2L, Neutrophils (%) (Auto) , Lymphocytes (%) (Auto) , Monocytes (%) (Auto) , Eosinophils (%) (Auto) , Basophils (%) (Auto) , Differential Total Cells Counted 100, Neutrophils % ( Manual) 69, Lymphocytes % (Manual) 22, Monocytes % (Manual) 6, Eosinophils % ( Manual) 3, Basophils % (Manual) 0, Band Neutrophils 0, Platelet Estimate DecreasedL, Platelet Morphology Normal, Hypochromasia 2+, Anisocytosis 2+, Microcytosis 1+, Spherocytes 1+, Sodium Level 132L, Potassium Level 4.3, Chloride Level 103, Carbon Dioxide Level 25, Anion Gap 4L, Blood Urea Nitrogen 15, Creatinine 1.2, Estimat Glomerular Filtration Rate > 60, Glucose Level 95, Calcium Level 6.6L Height (Feet): 5 Height (Inches): 11.00 Weight (Pounds): 133 Objective Physical Exam: Vitals: reviewed General Appearance: NAD HEENT: normocephalic, atraumatic Neck: non-tender, normal alignment Respiratory/Chest: normal breath sounds bilaterally Cardiovascular/Chest: normal peripheral pulses, normal rate Abdomen: normal bowel sounds, soft, nontender Extremities: normal range of motion Jean Bingham MD May 22, 2018 17:43
--- NOTE | 2018-05-22 18:35 | Internal Med Progress Note ---
Subjective Physician Name Alberto Gtz Attending Physician Alberto Gtz MD Allergies: Coded Allergies: No Known Allergies (Unverified , 10/21/17) Subjective Alert, awake, responsive, no acute distress. Objective Last Vital Signs Date Time Temp Pulse Resp B/P (MAP) Pulse Ox O2 Delivery O2 Flow Rate FiO2 05/22/18 12:00 97.5 102 18 97/60 (72) 98 05/22/18 08:31 Room Air Laboratory Tests Test 05/22/18 05:30 White Blood Count 4.7 K/UL (4.8-10.8) L Red Blood Count 3.28 M/UL (4.70-6.10) L Hemoglobin 8.1 G/DL (14.2-18.0) L Hematocrit 24.9 % (42.0-52.0) L Mean Corpuscular Volume 76 FL (80-99) L Mean Corpuscular Hemoglobin 24.6 PG (27.0-31.0) L Mean Corpuscular Hemoglobin Concent 32.5 G/DL (32.0-36.0) Red Cell Distribution Width 18.0 % (11.6-14.8) H Platelet Count 56 K/UL (150-450) L Mean Platelet Volume 6.2 FL (6.5-10.1) L Neutrophils (%) (Auto) % (45.0-75.0) Lymphocytes (%) (Auto) % (20.0-45.0) Monocytes (%) (Auto) % (1.0-10.0) Eosinophils (%) (Auto) % (0.0-3.0) Basophils (%) (Auto) % (0.0-2.0) Differential Total Cells Counted 100 Neutrophils % (Manual) 69 % (45-75) Lymphocytes % (Manual) 22 % (20-45) Monocytes % (Manual) 6 % (1-10) Eosinophils % (Manual) 3 % (0-3) Basophils % (Manual) 0 % (0-2) Band Neutrophils 0 % (0-8) Platelet Estimate Decreased L Platelet Morphology Normal Hypochromasia 2+ Anisocytosis 2+ Microcytosis 1+ Spherocytes 1+ Sodium Level 132 MMOL/L (136-145) L Potassium Level 4.3 MMOL/L (3.5-5.1) Chloride Level 103 MMOL/L (98-107) Carbon Dioxide Level 25 MMOL/L (21-32) Anion Gap 4 mmol/L (5-15) L Blood Urea Nitrogen 15 mg/dL (7-18) Creatinine 1.2 MG/DL (0.55-1.30) Estimat Glomerular Filtration Rate > 60 mL/min (>60) Glucose Level 95 MG/DL (74-106) Calcium Level 6.6 MG/DL (8.5-10.1) L Intake and Output 05/21/18 05/22/18 19:00 07:00 Intake Total 240 ml Output Total 900 ml 300 ml Balance -660 ml -300 ml Intake Oral 240 ml Output Urine Total 900 ml 300 ml # Bowel Movements 1 3 Objective General: No acute distress, awake and alert HEENT: NCAT, sclera anicteric, PERRL, EOMI. Neck: Supple, no significant jugular venous distention, Lungs: Good inspiratory effort, clear to auscultation bilaterally, no Wheeze or Rales. Heart: Regular rate and rhythm, normal S1/S2, no murmurs. Abdomen: soft, nontender, nondistended. Normoactive bowel sounds. / Rectal: Refused and deferred. Extremities: No Cyanosis , clubbing or edema. 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 SNOMED: 32356930 (2) Cyclic vomiting syndrome ICD Codes: G43.A0 - Cyclical vomiting, not intractable SNOMED: 62309137 (3) Nausea & vomiting ICD Codes: R11.2 - Nausea with vomiting, unspecified SNOMED: 18999603 (4) Electrolyte imbalance ICD Codes: E87.8 - Other disorders of electrolyte and fluid balance, not elsewhere classified SNOMED: 876235041 (5) Diarrhea ICD Codes: R19.7 - Diarrhea, unspecified SNOMED: 73480928 (6) Gastroenteritis ICD Codes: K52.9 - Noninfective gastroenteritis and colitis, unspecified SNOMED: 04602220 (7) Dehydration ICD Codes: E86.0 - Dehydration Plan: Follow-up with the primary physician within 1 week. Alberto Gtz MD May 22, 2018 18:35
--- NOTE | 2018-05-25 07:49 | Discharge Summary ---
Discharge Summary Discharge Summary _ DATE OF ADMISSION: 05/12/2018 DATE OF DISCHARGE: 05/22/2018 DISCHARGED BY: Dr. Gtz: REASON FOR ADMISSION: 37 years old male with past medical history of HIV, diagnosed in 1999, Kaposi's sarcoma, status post chemotherapy, Castleman disease, status post chemotherapy, hepatitis C, chronic hepatitis B, presented to emergency department with nausea, vomiting, diarrhea, and generalized weakness for the last 4 days. Patient reported fevers up to 102. Patient reported feeling weak and dizzy when he gets up. He denied blood in the vomiting and stool. Patient was not currently on chemotherapy. Vital signs revealed low-grade fever, tachycardia tachypnea and hypotension. Laboratory workup revealed no leukocytosis , hemoglobin 10.3, hematocrit 32.2. Urinalysis revealed pyuria and few bacteria , +1 leukocyte esterase. BUN 13, creatinine 1.2. Lactic acid 3.5. Chest x-ray demonstrated no acute cardiopulmonary pathology. Albumin 1.8. Stable LFT. Troponin negative. EKG revealed sinus tachycardia. In emergency department patient received IV fluids with some improvement in blood pressure. Patient pancultured and started on empiric antibiotics. Patient admitted for further management CONSULTANTS: pulmonary Dr. Hester ID specialist Dr. Mendoza GI specialist Dr. Grande guest service representative/oncologist Dr. Bingham [facility] COURSE: Patient admitted to monitored floor. Patient started on fluid resuscitation. Patient was continue on empiric antibiotics. Infectious disease specialist closely followed. Urine culture revealed mixed gram-positive organisms. Blood culture revealed no growth. Stool culture was negative. Stool for C. difficile was negative. Stool for ova and parasite was negative. Rapid influenza screen test was negative. Patient was initially on empiric antibiotic . CT chest revealed mediastinal, axillary and supraclavicular lymphadenopathy enlarged compared to the prior CT of the chest. CT of the abdomen and pelvis revealed mesenteric, retroperitoneal and inguinal lymphadenopathy. Mild colitis and /or diarrheal disease. No evidence of bowel obstruction. Left axillary node needle biopsy was done on 05/18 by interventional radiology. Aerobic and anaerobic culture revealed no growth. Pathology revealed no flow immunophenotyping evidence of lymphoproliferative disorder. Culture for AFB, fungal, bacterial , viral done,. Some results still pending. Available results unrevealing, TB test negative. Antiretroviral therapy was continued under ID management. CD4 64 . Patient initially started on antibiotics, which were subsequently stopped. Patient undergone empiric treatment for possible flu , 5 days of ceftriaxone and 7 days of Flagyl for colitis. Patient was monitored off antibiotic and continued with antiretroviral therapy and prophylactic therapy for opportunistic infection. Patient with history of hepatitis C and chronic hepatitis B. Patient noted to have pancytopenia with severe diffuse lymphadenopathy, worsened since 2018 in the setting of Castleman disease and Kaposi's sarcoma. Outpatient chemotherapy was received in September 2017. Patient was treated and [facility]. Lesson Instructor /oncologist followed. Lesson Instructor recommended outpatient follow-up for further management and stressed compliance with his HIV medication. General surgeon closely followed. Per general surgeon , nt needle biopsy was inconclusive, and patient required core lymph node biopsy along with bone marrow biopsy . Patient did not want any further biopsy at this time as inpatient. Patient remained tachycardic, with some improvement. Supplemental oxygen provided as needed to keep pulse oximetry above 92%. Pulmonary toilet provided as needed. Hemoglobin and hematocrit were closely monitored with goal to keep hemoglobin above 7. ESR and CRP elevated. Stool for occult blood was negative. Anemia workup revealed high ferritin level 1340 with evidence of anemia of iron deficiency. Prior to discharge hemoglobin 8.1 and hematocrit 24.9. Platelet count down to 56. WBC - 4.7. Folic acid and vitamin D continued. Echocardiogram revealed preserved ejection fraction of 60-65% with no evidence of left ventricular hypertrophy. No evidence of pericardial effusion. DVT prophylaxis provided. Right ventricular systolic pressure of 39 consistent with a mild pulmonary hypertension. CT of the head revealed opacification of the right maxillary sinus right frontal sinus and mucosal thickening throughout the ethmoid air cells and left maxillary sinus suggestive of sinusitis. Partial opacification of the inferior posterior aspect of the left mastoid air cells suggesting small left mastoid effusion. GI specialist followed. Patient initially was on the IV fluids. Supportive therapy provided with antiemetic and antidiarrheal on as needed basis. Patient was counseled to limit marijuana use. Patient recently undergone endoscopy and colonoscopy which were unremarkable. Diet was slowly started and advanced as tolerated. GI prophylaxis provided. No plans for colonoscopy as per GI specialist at this time. Protein supplements implemented in plan of care as recommended by registered dietitian. Renal parameters and electrolytes were closely monitored. At some point creatinine reached 1.5. Nephrotoxins were avoided. Prior to discharge BUN 15 and creatinine 1.2. Patient likely stabilized. Blood pressure stable. Patient tolerated diet. Nausea, vomiting and diarrhea resolved As mentioned above, patient declined further biopsy/core lymph node, bone marrow biopsy. Outpatient follow-up with primary care provider. Patient will need core lymph node and bone marrow biopsy as outpatient, and likely chemotherapy . FINAL DIAGNOSES: Severe sepsis Septic shock-resolved Gastroenteritis/mild colitis Severe diffuse lymphadenopathy Status post left axillary lymph node needle biopsy Acute tubular necrosis -resolved Cyclic vomiting syndrome Dehydration Pancytopenia Microcytic anemia Kaposi sarcoma Castleman disease HIV disease/AIDS ( CD4 -64) Electrolyte imbalance Hepatitis C Chronic hepatitis B Severe protein calorie malnutrition History of DVT DISCHARGE MEDICATIONS: See Medication Reconciliation list. DISCHARGE INSTRUCTIONS: Patient was discharged home. Follow up with primary care provider in one week. I have been assigned to dictate discharge summary for this account. I was not involved in the patient's management. Gerri Almeida NP May 25, 2018 07:49
== END 2018-05-22 16:10 | disposition home or self-care (01) | DRG 974 ==
LOC: EDBD 20:02 → EDSEX 20:02 → EMR 20:30 → 2W 21:55 → EDBEDREQ 23:28 → 2W 05-13 00:58 → 2E 05-16 23:07 → SDSOVERFLO 05-21 14:46 → 2E 05-21 14:48
PROC: 07D63ZX Extraction of Left Axillary Lymphatic, Percutaneous Approach, Diagnostic (ICD-10-PCS; principal; 2018-05-18)
DX: A41.9 Sepsis, unspecified organism (principal); R65.21 Severe sepsis with septic shock; B20 Human immunodeficiency virus [HIV] disease; N17.0 Acute kidney failure with tubular necrosis; J18.9 Pneumonia, unspecified organism; E43 Unspecified severe protein-calorie malnutrition; D47.Z2 Castleman disease; C46.9 Kaposi's sarcoma, unspecified; B18.1 Chronic viral hepatitis B without delta-agent; D61.818 Other pancytopenia; Z68.1 Body mass index [BMI] 19.9 or less, adult; D64.9 Anemia, unspecified; K52.9 Noninfective gastroenteritis and colitis, unspecified; E86.0 Dehydration; R59.1 Generalized enlarged lymph nodes; D69.6 Thrombocytopenia, unspecified; G43.A0 Cyclical vomiting, in migraine, not intractable; Z86.718 Personal history of other venous thrombosis and embolism; B18.2 Chronic viral hepatitis C
CPT/HCPCS: 36415; 70470; 71045; 71260; 74177; 76942; 80048; 80053; 80202; 81001; 81003; 82043; 82150; 82270; 82378; 82550; 82570; 82607; 82728; 82746; 83540; 83550; 83605; 83690; 83735; 84100; 84133; 84300; 84439; 84443; 84484; 84550; 85007; 85025; 85044; 85610; 85651; 85730; 86140; 86360; 86635; 86644; 86645; 86704; 86705; 86708; 86709; 86710; 86850; 86900; 86901; 86920; 87040; 87045; 87070; 87075; 87086; 87205; 87324; 87385; 87449; 87496; 87516; 87517; 87522; 87536; 87798; 89050; 93005; 93306; 96361; 96365; 96368; 96375; 99291; J2405

== ENCOUNTER 2018-06-12 07:09 | Inpatient (IN) | payer MEDICARE, OTHER ==
[2018-06-12] VITALS (7 sets, daily range): BP systolic 95–117; BP diastolic 61–76
[~2018-06-12] VITALS: Ht 182.9 cm; Wt 66.8 kg
[~2018-06-12 07:09] MED LIST changes: +LOMOTIL TABLET1 EACH ORAL; +METOPROLOL TART50 MG ORAL; +NKM; +TIVICAY50 MG ORAL; +TRUVADA 200 MG1 EAC1 ORAL; +VITAMIN D1000 UNI1 ORAL
--- NOTE | 2018-06-12 07:11 | Emergency Room Report ---
History of Present Illness General Chief Complaint: Pain Source: Patient, EMS Present Illness HPI Patient is a 37-year-old male brought in by EMS after increased difficulty breathing. Patient had increased generalized weakness as well as generalized body aches. Patient reportedly is followed by Dr. Adam Padron. Patient reports having prior history of HIV. He states he had neuropathy to his legs. He reports having increased pain and shortness of breath with ambulation. He reports feeling dizzy and lightheaded with standing. He states he has had multiple episodes of vomiting. Reports having multiple episodes of vomiting and states that he feels somewhat dehydrated. He denies any productive cough. Patient reports having generalized abdominal pain. As well as generalized pain to his lower extremities.He states that he has been compliant with his medications. He reports having some history of cancer. He does not recall his medications.Per patient's old record patient had prior history of Kaposi's sarcoma as well as Castleman's disease. He was noted to have a prior history of chemotherapy. Allergies: Coded Allergies: No Known Allergies (Unverified , 10/21/17) Patient History Past Medical History: see triage record Reviewed Nursing Documentation: PMH: Agreed; PSxH: Agreed Nursing Documentation-PMH Hx Cancer: Yes - BILAT LEGS Review of Systems All Other Systems: limited - by poor historian Physical Exam Vital Signs Date Time Temp Pulse Resp B/P (MAP) Pulse Ox O2 Delivery O2 Flow Rate FiO2 06/12/18 07:02 97.5 133 24 103/68 98 Room Air General Appearance: alert, GCS 15, cachetic, Chronically Ill Eyes: bilateral eye other - disconjugate gaze ENT: moist mucus membranes Neck: full range of motion Respiratory: chest non-tender, lungs clear Cardiovascular #1: tachycardia, edema - trace Musculoskeletal: decreased range of motion Neurologic: alert, motor weakness Psychiatric: normal inspection Skin: other - discoloration to bilateral lower extremities Medical Decision Making Diagnostic Impression: Primary Impression: Nausea & vomiting Additional Impressions: Kaposi disease Protein-calorie malnutrition, severe ER Course Patient presented for abdominal pain. Differential diagnoses included ischemic bowel, appendicitis, perforated viscus, abdominal aortic aneurysm, inferior myocardial infarction, viral gastroenteritis among others. Because of complexity of patient's case laboratory testing and imaging studies were ordered.Patient was noted to have persistent vomiting in the emergency department. Patient had recent CT imaging which showed diffuse lymphadenopathy patient had prior history of Kaposi's sarcoma. Patient is noted to have multiple episodes of nonbloody emesis while in the emergency department. He was given Zofran with continued vomiting. He started on IV fluids. Dr. Alberto Gtz was contacted for inpatient management due to patient's persistent vomiting and dehydration. EKG interpreted by me showed sinus tachycardia with a rate of 140s without acute ST or T wave changes. Labs Test 06/12/18 07:35 06/12/18 07:45 06/12/18 08:55 White Blood Count 7.5 K/UL (4.8-10.8) Red Blood Count 3.86 M/UL (4.70-6.10) Hemoglobin 9.9 G/DL (14.2-18.0) Hematocrit 31.3 % (42.0-52.0) Mean Corpuscular Volume 81 FL (80-99) Mean Corpuscular Hemoglobin 25.7 PG (27.0-31.0) Mean Corpuscular Hemoglobin Concent 31.6 G/DL (32.0-36.0) Red Cell Distribution Width 20.9 % (11.6-14.8) Platelet Count 88 K/UL (150-450) Mean Platelet Volume 5.5 FL (6.5-10.1) Neutrophils (%) (Auto) % (45.0-75.0) Lymphocytes (%) (Auto) % (20.0-45.0) Monocytes (%) (Auto) % (1.0-10.0) Eosinophils (%) (Auto) % (0.0-3.0) Basophils (%) (Auto) % (0.0-2.0) Differential Total Cells Counted 100 Neutrophils % (Manual) 71 % (45-75) Lymphocytes % (Manual) 23 % (20-45) Monocytes % (Manual) 4 % (1-10) Eosinophils % (Manual) 1 % (0-3) Basophils % (Manual) 0 % (0-2) Band Neutrophils 1 % (0-8) Platelet Estimate Decreased Platelet Morphology Normal Hypochromasia 2+ Anisocytosis 2+ Prothrombin Time 13.0 SEC (9.30-11.50) Prothromb Time International Ratio 1.2 (0.9-1.1) Activated Partial Thromboplast Time 34 SEC (23-33) Sodium Level 130 MMOL/L (136-145) Potassium Level 4.5 MMOL/L (3.5-5.1) Chloride Level 99 MMOL/L (98-107) Carbon Dioxide Level 25 MMOL/L (21-32) Anion Gap 6 mmol/L (5-15) Blood Urea Nitrogen 19 mg/dL (7-18) Creatinine 1.4 MG/DL (0.55-1.30) Estimat Glomerular Filtration Rate > 60 mL/min (>60) Glucose Level 101 MG/DL (74-106) Calcium Level 7.0 MG/DL (8.5-10.1) Phosphorus Level 3.7 MG/DL (2.5-4.9) Magnesium Level 1.7 MG/DL (1.8-2.4) Total Bilirubin 1.2 MG/DL (0.2-1.0) Direct Bilirubin 0.2 MG/DL (0.0-0.3) Aspartate Amino Transf (AST/SGOT) 23 U/L (15-37) Alanine Aminotransferase (ALT/SGPT) < 6 U/L (12-78) Alkaline Phosphatase 78 U/L (46-116) Total Creatine Kinase 31 U/L (26-308) Creatine Kinase MB < 0.5 NG/ML (0.0-3.6) Creatine Kinase MB Relative Index Troponin I 0.000 ng/mL (0.000-0.056) Pro-B-Type Natriuretic Peptide 350 pg/mL (0-125) Total Protein 6.4 G/DL (6.4-8.2) Albumin 1.1 G/DL (3.4-5.0) Globulin 5.3 g/dL Albumin/Globulin Ratio 0.2 (1.0-2.7) Lipase 57 U/L (73-393) Urine Color Mayda Urine Appearance Clear Urine pH 5 (4.5-8.0) Urine Specific [place] 1.010 (1.005-1.035) Urine Protein 2+ (NEGATIVE) Urine Glucose (UA) Negative (NEGATIVE) Urine Ketones Negative (NEGATIVE) Urine Blood 1+ (NEGATIVE) Urine Nitrite Negative (NEGATIVE) Urine Bilirubin Negative (NEGATIVE) Urine Ictotest Negative (NEGATIVE) Urine Urobilinogen 4 MG/DL (0.0-1.0) Urine Leukocyte Esterase 1+ (NEGATIVE) Urine RBC 0-2 /HPF (0 - 0) Urine WBC 0-2 /HPF (0 - 0) Urine Squamous Epithelial Cells None /LPF (NONE/OCC) Urine Amorphous Sediment Few /LPF (NONE) Urine Bacteria Occasional /HPF (NONE) Lactic Acid Level 2.10 mmol/L (0.66-2.22) EKG Diagnostic Results Rate: tachycardiac Rhythm: NSR ST Segments: no acute changes Last Vital Signs Date Time Temp Pulse Resp B/P (MAP) Pulse Ox O2 Delivery O2 Flow Rate FiO2 06/12/18 07:02 97.5 133 24 103/68 98 Room Air Status: improved Disposition: ADMITTED INPATIENT Condition: Serious Partha Sam MD Jun 12, 2018 07:11
--- NOTE | 2018-06-12 07:15 | NUR ---
ED Nurse Note: AMBULATED IN TO ER FROM HOME DUE TO PAIN TO RIGHT GROIN, ABDOMINAL PAIN AND BILATERAL LOWER EXTREMITIES 10/10 X 3 DAYS.
[2018-06-12] MEDS ORDERED: Piperacillin/Tazobactam 3.375 GM in NS 110 ML IVPB ONE (07:45)
[2018-06-12 08:02] LABS: HEMATOCRIT 31.3 % (42.0-52.0); HEMOGLOBIN 9.9 G/DL (14.2-18.0); MEAN CORPUSCULAR VOLUME 81 FL (80-99); PLATELET COUNT 88 K/UL (150-450); RED BLOOD COUNT 3.86 M/UL (4.70-6.10); RED CELL DISTRIBUTION WIDTH 20.9 % (11.6-14.8); WHITE BLOOD COUNT 7.5 K/UL (4.8-10.8)
[2018-06-12 08:08] LABS: ANION GAP 6 mmol/L (5-15); BLOOD UREA NITROGEN 19 mg/dL (7-18); CARBON DIOXIDE 25 MMOL/L (21-32); CHLORIDE 99 MMOL/L (98-107); CREATININE 1.4 MG/DL (0.55-1.30); POTASSIUM 4.5 MMOL/L (3.5-5.1); SODIUM 130 MMOL/L (136-145)
[2018-06-12 08:22] LABS: ALANINE AMINOTRANSFERASE < 6 U/L (12-78); ALBUMIN 1.1 G/DL (3.4-5.0); ALBUMIN/GLOBULIN RATIO 0.2 (1.0-2.7); ALKALINE PHOSPHATASE 78 U/L (46-116); ASPARTATE AMINO TRANSFERASE 23 U/L (15-37); BILIRUBIN,TOTAL 1.2 MG/DL (0.2-1.0); CKMB < 0.5 NG/ML (0.0-3.6); CREATINE KINASE 31 U/L (26-308); PHOSPHORUS 3.7 MG/DL (2.5-4.9)
[2018-06-12 08:23] LABS: BILIRUBIN,DIRECT 0.2 MG/DL (0.0-0.3)
[2018-06-12 08:26] LABS: INR 1.2 (0.9-1.1)
[2018-06-12 08:27] LABS: APPEARANCE,URINE CLEAR; BILIRUBIN, URINE NEGATIVE (NEGATIVE); COLOR,URINE AMBER; GLUCOSE, URINE (UA) NEGATIVE (NEGATIVE); KETONES,URINE NEGATIVE (NEGATIVE); LEUKOCYTE ESTERASE ,URINE 1+ (NEGATIVE); NITRITE,URINE NEGATIVE (NEGATIVE); PH,URINE 5 (4.5-8.0); PROTEIN,URINE 2+ (NEGATIVE); UROBILINOGEN,URINE 4 MG/DL (0.0-1.0)
[2018-06-12] MEDS ORDERED: Miralax 17gm pkt ORAL PRN (09:30)
[2018-06-12] MEDS ORDERED: Metoclopramide 10mg/2ml Inj IVP PRN (09:30)
[2018-06-12] MEDS ORDERED: Promethazine HCl 12.5 MG in NS 55 ML IV PRN (09:30)
[2018-06-12] MEDS ORDERED: Nitroglycerin Subl 0.4mg tab SL PRN (09:30)
[2018-06-12] MEDS ORDERED: Mylanta II UD 30ml ORAL PRN (09:30)
[2018-06-12] MEDS ORDERED: LORazepam Inj 2mg/ml 1ml IV PRN (09:30)
[2018-06-12] MEDS ORDERED: Promethazine HCl 25 MG in NS 55 ML IV PRN (09:30)
[2018-06-12] MEDS: Morphine Sulfate 2mg/ml Inj(IV/IM USE ONLY) IVP PRN ×4 (10:07→23:04)
[2018-06-12] MEDS ORDERED: TRUVADA1 TAB ORAL (11:12)
[2018-06-12] MEDS ORDERED: TIVICAY50 MG ORAL (11:12)
--- NOTE | 2018-06-12 11:19 | NUR ---
ED Nurse Note: NOTIFIED ERMD ABOUT HR AND BP. RECEIVED VERBAL ORDER FOR NACL BOLUS Addendum: 06/12/18 at 1137 by [email or web address] ED Nurse Note: NOTIFIED ERMD ABOUT HR AND BP. NO NEW ORDERS RECEIVED
[2018-06-12] MEDS: D5 1/2NS 1,000 ML IV SCH (11:37)
--- NOTE | 2018-06-12 11:52 | Diagnostic Imaging Report ---
Indication: Dyspnea Comparison: 05/12/2018 A single view chest radiograph was obtained. Findings: The right hilum is slightly ill-defined which may be a consequence of some slight rotation although infiltrate in the right perihilar region not excluded. Please correlate clinically and the obtained follow-up or repeat. Heart size is normal. Bones are unremarkable. IMPRESSION: Questionable infiltrate right perihilar region. Recommend repeat/follow-up
--- NOTE | 2018-06-12 12:06 | NUR ---
ED Nurse Note: TELEPHONE REPORT GIVEN TO TRES YEUNG. PT REMAINS STABLE. WILL TRANSFER THE PT UP.
--- NOTE | 2018-06-12 12:32 | NUR ---
TRANSFER TO FLOOR: Patient transferred to #[id number] as ordered via gurney with teletypesetter monitor . Report given to TRES Andino. Belongings given to pt. no s/s of distress.
--- NOTE | 2018-06-12 12:35 | NUR ---
NURSE NOTES: Pt received from TRES Mann alert and oriented x4 with no acute s/s of distress. Pt saturating at 99% on room air, no s/s of SOB. IV site asymptomatic and patent. No wounds noted upon admission. Belongings with patient upon admission - signed by transferring and receiving RN. Bed in lowest position, call light and belongings within reach.
--- NOTE | 2018-06-12 12:53 | Consultation ---
History of Present Illness General Date patient seen: Jun 12, 2018 Chief Complaint: Pain Present Illness HPI 37 years old male with PMHx of HIV, diagnosed in 1999, Kaposi's sarcoma, status post chemotherapy, Castleman disease, hepatitis C, chronic hepatitis B, presented to emergency department with generalized weakness. He was recently hospitalized at [facility] and refused to have excisional biopsy of his lymph nodes. A Core biopsy was negative. Allergies: Coded Allergies: No Known Allergies (Unverified , 10/21/17) Medication History Scheduled Azithromycin* (Zithromax*), 250 MG ORAL Q24H Cholecalciferol (Vitamin D3)* (Vitamin D*), 1,000 UNIT ORAL DAILY, (Reported) Dolutegravir Sodium (Tivicay), 50 MG ORAL DAILY, (Reported) Dolutegravir Sodium (Tivicay), 50 MG ORAL DAILY, (Reported) Emtricitabine/Tenofovir (Truvada 200 mg-300 mg Tablet), 1 TAB ORAL DAILY, ( Reported) Emtricitabine/Tenofovir 200-300MG* (Truvada 200-300MG*), 1 TAB ORAL DAILY, ( Reported) Metoprolol Tartrate* (Metoprolol Tartrate*), 50 MG ORAL Q12HR Mirtazapine* (Mirtazapine*), 15 MG ORAL BEDTIME No Known Medications* (NKM - No Known Medications*), 0 ., (Reported) Trimethoprim/Sulfamethoxazole (Bactrim Ds Tablet), 1 TAB ORAL DAILY Scheduled PRN Diphenoxylate Hcl/Atropine (Lomotil Tablet), 2.5 MG ORAL Q4H PRN Patient History Healthcare decision maker Resuscitation status Advanced Directive on File Past Medical/Surgical History Past Medical/Surgical History: (1) Castleman disease (2) Kaposi disease (3) HIV disease (4) Cyclic vomiting syndrome (5) Hepatitis B (6) Hepatitis C (7) Protein-calorie malnutrition, severe Review of Systems Constitutional: Reports: no symptoms All Other Systems: negative except mentioned in HPI Physical Exam General Appearance: cachetic, thin Lines, tubes and drains: peripheral HEENT: normocephalic, anicteric Neck: non-tender, normal alignment Respiratory/Chest: chest wall non-tender, lungs clear Cardiovascular/Chest: normal peripheral pulses, normal rate Abdomen: normal bowel sounds, non tender Genitourinary/Rectal: normal genital exam Extremities: non-pitting Last 24 Hour Vital Signs Date Time Temp Pulse Resp B/P (MAP) Pulse Ox O2 Delivery O2 Flow Rate FiO2 06/12/18 12:37 99.1 134 18 106/71 (83) 94 06/12/18 12:31 97.6 128 27 108/71 99 Room Air 06/12/18 12:19 128 27 108/71 99 Room Air 06/12/18 12:05 97.6 134 25 98/67 100 Room Air 06/12/18 11:17 97.6 147 31 95/71 100 Room Air 06/12/18 10:37 97.6 06/12/18 08:41 136 27 105/76 100 Room Air 06/12/18 07:02 97.5 133 24 103/68 98 Room Air Laboratory Tests Test 06/12/18 07:35 06/12/18 07:45 06/12/18 08:55 White Blood Count 7.5 K/UL (4.8-10.8) Red Blood Count 3.86 M/UL (4.70-6.10) L Hemoglobin 9.9 G/DL (14.2-18.0) L Hematocrit 31.3 % (42.0-52.0) L Mean Corpuscular Volume 81 FL (80-99) Mean Corpuscular Hemoglobin 25.7 PG (27.0-31.0) L Mean Corpuscular Hemoglobin Concent 31.6 G/DL (32.0-36.0) L Red Cell Distribution Width 20.9 % (11.6-14.8) H Platelet Count 88 K/UL (150-450) L Mean Platelet Volume 5.5 FL (6.5-10.1) L Neutrophils (%) (Auto) % (45.0-75.0) Lymphocytes (%) (Auto) % (20.0-45.0) Monocytes (%) (Auto) % (1.0-10.0) Eosinophils (%) (Auto) % (0.0-3.0) Basophils (%) (Auto) % (0.0-2.0) Differential Total Cells Counted 100 Neutrophils % (Manual) 71 % (45-75) Lymphocytes % (Manual) 23 % (20-45) Monocytes % (Manual) 4 % (1-10) Eosinophils % (Manual) 1 % (0-3) Basophils % (Manual) 0 % (0-2) Band Neutrophils 1 % (0-8) Platelet Estimate Decreased L Platelet Morphology Normal Hypochromasia 2+ Anisocytosis 2+ Prothrombin Time 13.0 SEC (9.30-11.50) H Prothromb Time International Ratio 1.2 (0.9-1.1) H Activated Partial Thromboplast Time 34 SEC (23-33) H Sodium Level 130 MMOL/L (136-145) L Potassium Level 4.5 MMOL/L (3.5-5.1) Chloride Level 99 MMOL/L (98-107) Carbon Dioxide Level 25 MMOL/L (21-32) Anion Gap 6 mmol/L (5-15) Blood Urea Nitrogen 19 mg/dL (7-18) H Creatinine 1.4 MG/DL (0.55-1.30) H Estimat Glomerular Filtration Rate > 60 mL/min (>60) Glucose Level 101 MG/DL (74-106) Lactic Acid Level 2.40 mmol/L (0.4-2.0) H 2.10 mmol/L (0.66-2.22) Calcium Level 7.0 MG/DL (8.5-10.1) L Phosphorus Level 3.7 MG/DL (2.5-4.9) Magnesium Level 1.7 MG/DL (1.8-2.4) L Total Bilirubin 1.2 MG/DL (0.2-1.0) H Direct Bilirubin 0.2 MG/DL (0.0-0.3) Aspartate Amino Transf (AST/SGOT) 23 U/L (15-37) Alanine Aminotransferase (ALT/SGPT) < 6 U/L (12-78) L Alkaline Phosphatase 78 U/L (46-116) Total Creatine Kinase 31 U/L (26-308) Creatine Kinase MB < 0.5 NG/ML (0.0-3.6) Creatine Kinase MB Relative Index Troponin I 0.000 ng/mL (0.000-0.056) Pro-B-Type Natriuretic Peptide 350 pg/mL (0-125) H Total Protein 6.4 G/DL (6.4-8.2) Albumin 1.1 G/DL (3.4-5.0) L Globulin 5.3 g/dL Albumin/Globulin Ratio 0.2 (1.0-2.7) L Lipase 57 U/L (73-393) L Urine Color Mayda Urine Appearance Clear Urine pH 5 (4.5-8.0) Urine Specific [place] 1.010 (1.005-1.035) Urine Protein 2+ (NEGATIVE) H Urine Glucose (UA) Negative (NEGATIVE) Urine Ketones Negative (NEGATIVE) Urine Blood 1+ (NEGATIVE) H Urine Nitrite Negative (NEGATIVE) Urine Bilirubin Negative (NEGATIVE) Urine Ictotest Negative (NEGATIVE) Urine Urobilinogen 4 MG/DL (0.0-1.0) H Urine Leukocyte Esterase 1+ (NEGATIVE) H Urine RBC 0-2 /HPF (0 - 0) H Urine WBC 0-2 /HPF (0 - 0) Urine Squamous Epithelial Cells None /LPF (NONE/OCC) Urine Amorphous Sediment Few /LPF (NONE) H Urine Bacteria Occasional /HPF (NONE) Height (Feet): 6 Weight (Pounds): 125 Medications Current Medications Medications (Trade) Dose Ordered Sig/Yessica Route PRN Reason Start Time Stop Time Status Last Admin Dose Admin Acetaminophen (Tylenol) 650 mg Q4H PRN ORAL fever 06/12/18 09:30 07/12/18 09:29 Al Hydroxide/Mg Hydroxide (Mylanta II) 30 ml Q6H PRN ORAL dyspepsia 06/12/18 09:30 07/12/18 09:29 Dextrose (Dextrose 50%) 25 ml Q30M PRN IV Hypoglycemia 06/12/18 09:30 07/12/18 09:29 Dextrose (Dextrose 50%) 50 ml Q30M PRN IV Hypoglycemia 06/12/18 09:30 07/12/18 09:29 Dextrose/Sodium Chloride 1,000 ml @ 75 mls/hr [id number] IV 06/12/18 11:00 07/12/18 10:59 06/12/18 11:37 Diphenhydramine HCl (Benadryl) 25 mg Q6H PRN ORAL Itching/Pruritis 06/12/18 09:30 07/12/18 09:29 Lorazepam (Ativan 2mg/ml 1ml) 1 mg Q4H PRN IV agitation 06/12/18 09:30 06/19/18 09:29 Metoclopramide HCl (Reglan) 10 mg Q6H PRN IVP servere nauasea 06/12/18 09:30 07/12/18 09:29 Mirtazapine (Remeron) 15 mg BEDTIME ORAL 06/12/18 21:00 07/12/18 20:59 Morphine Sulfate (Morphine Sulfate) 2 mg Q4H PRN IVP severe Pain (Pain Scale 7-10) 06/12/18 09:30 06/19/18 09:29 06/12/18 10:07 Nitroglycerin (Ntg) 0.4 mg Q5M X 3 DOSES PRN SL Prn Chest Pain 06/12/18 09:30 07/12/18 09:29 Ondansetron HCl (Zofran) 4 mg Q6H PRN IVP Nausea & Vomiting 06/12/18 09:30 07/12/18 09:29 06/12/18 10:07 Pantoprazole (Protonix) 40 mg DAILY IV 06/13/18 09:00 07/13/18 08:59 Polyethylene Glycol (Miralax) 17 gm HSPRN PRN ORAL Constipation 06/12/18 09:30 07/12/18 09:29 Promethazine HCl (Phenergan) 25 mg Q6H PRN IM REFRACTORY N/V 06/12/18 09:30 07/12/18 09:29 Sodium Chloride 1,000 ml @ 999 mls/hr Q1H1M ONCE IV 06/12/18 11:45 06/12/18 12:45 06/12/18 11:43 Temazepam (Restoril) 15 mg HSPRN PRN ORAL Insomnia 06/12/18 09:30 06/19/18 09:29 Assessment/Plan Problem List: (1) Severe sepsis ICD Codes: A41.9 - Sepsis, unspecified organism; R65.20 - Severe sepsis without septic shock SNOMED: 86682518 (2) HIV disease ICD Codes: B20 - Human immunodeficiency virus [HIV] disease SNOMED: 80969146 (3) ATN (acute tubular necrosis) ICD Codes: N17.0 - Acute kidney failure with tubular necrosis SNOMED: 30011556 (4) Kaposi disease ICD Codes: Q82.1 - Xeroderma pigmentosum SNOMED: 75267217 (5) Cyclic vomiting syndrome ICD Codes: G43.A0 - Cyclical vomiting, not intractable SNOMED: 15138531 (6) Protein-calorie malnutrition, severe ICD Codes: E43 - Unspecified severe protein-calorie malnutrition SNOMED: 008435064, 968133320, 381102628 (7) Lymphadenopathy ICD Codes: R59.1 - Generalized enlarged lymph nodes SNOMED: 92418509 Assessment/Plan: iv fluids iv abx symptomatic treatment NS for low BP ID to see dvt prophylaxis transfer to medical floor when Heart rate less than 100 Ya Hester MD Jun 12, 2018 12:53
--- NOTE | 2018-06-12 14:37 | Diagnostic Imaging Report ---
Indication:Abdominal pain Technique: Grayscale and duplex Doppler imaging of the abdomen performed. Comparison: None Findings: Prominent gallstone noted. Minimal pericholecystic fluid is present. There is negative sonographic White sign per technologist. Liver and spleen are unremarkable. The demonstrated part of the pancreas and aorta appear unremarkable. There is no hydronephrosis. Urinary bladder is distended but empties appropriately. CBD is 4 mm. IMPRESSION: Cholelithiasis. Minimal pericholecystic fluid. Correlate clinically for cholecystitis.
[2018-06-12] MEDS: Piperacillin/Tazobactam 3.375 GM in NS 110 ML IVPB SCH ×2 (15:01→21:29)
--- NOTE | 2018-06-12 16:06 | Consultation ---
History of Present Illness General Date patient seen: Jun 12, 2018 Chief Complaint: Pain Present Illness HPI 37 y/o M with hx HIV/AIDS (Cd4 64/9.1% 04/2018) w/ questionable compliance to ARV , Kaposi's sarcoma/Castleman's disease s/p chemotherapy 06/2017, pancreatitis 2017, chronic Hep B and C presents to ED on 06/12 with generalized weakness, generalized body aches, dyspnea upon exertion, dizziness/lightheadedness and multiple episodes of vomiting. On last admission here there was suspicion for recurrence of Castleman's disease and there was plan for excicional biopsy as well as bone marrow biopsy but patient refused and was discharge home to follow up with his HIV and heme-onc provider. Of note patient admitted here from 05/12-05/22 w/ sepsis, fever,n /v. Also admitted Oct 2017 with N/V, poor appetite and fever and was found to have pancreatitis Allergies: Coded Allergies: No Known Allergies (Unverified , 10/21/17) Medication History Scheduled Azithromycin* (Zithromax*), 250 MG ORAL Q24H Cholecalciferol (Vitamin D3)* (Vitamin D*), 1,000 UNIT ORAL DAILY, (Reported) Dolutegravir Sodium (Tivicay), 50 MG ORAL DAILY, (Reported) Dolutegravir Sodium (Tivicay), 50 MG ORAL DAILY, (Reported) Emtricitabine/Tenofovir (Truvada 200 mg-300 mg Tablet), 1 TAB ORAL DAILY, ( Reported) Emtricitabine/Tenofovir 200-300MG* (Truvada 200-300MG*), 1 TAB ORAL DAILY, ( Reported) Metoprolol Tartrate* (Metoprolol Tartrate*), 50 MG ORAL Q12HR Mirtazapine* (Mirtazapine*), 15 MG ORAL BEDTIME No Known Medications* (NKM - No Known Medications*), 0 ., (Reported) Trimethoprim/Sulfamethoxazole (Bactrim Ds Tablet), 1 TAB ORAL DAILY Scheduled PRN Diphenoxylate Hcl/Atropine (Lomotil Tablet), 2.5 MG ORAL Q4H PRN Patient History Healthcare decision maker Resuscitation status Full Code Advanced Directive on File Patient History Narrative Pmhx: as above Shx: reviewed Fhx: non contributory Review of Systems All Other Systems: negative except mentioned in HPI Physical Exam Physical Exam Narrative General Appearance: cachetic, thin Lines, tubes and drains: peripheral HEENT: normocephalic, anicteric Neck: non-tender, normal alignment Respiratory/Chest: chest wall non-tender, lungs clear Cardiovascular/Chest: normal peripheral pulses, normal rate Abdomen: normal bowel sounds, non tender Extremities: non-pitting Last 24 Hour Vital Signs Date Time Temp Pulse Resp B/P (MAP) Pulse Ox O2 Delivery O2 Flow Rate FiO2 06/12/18 12:37 Room Air 06/12/18 12:37 99.1 134 18 106/71 (83) 94 06/12/18 12:31 97.6 128 27 108/71 99 Room Air 06/12/18 12:19 128 27 108/71 99 Room Air 06/12/18 12:05 97.6 134 25 98/67 100 Room Air 06/12/18 11:17 97.6 147 31 95/71 100 Room Air 06/12/18 10:37 97.6 06/12/18 08:41 136 27 105/76 100 Room Air 06/12/18 07:02 97.5 133 24 103/68 98 Room Air Laboratory Tests Test 06/12/18 07:35 06/12/18 07:45 06/12/18 08:55 White Blood Count 7.5 K/UL (4.8-10.8) Red Blood Count 3.86 M/UL (4.70-6.10) L Hemoglobin 9.9 G/DL (14.2-18.0) L Hematocrit 31.3 % (42.0-52.0) L Mean Corpuscular Volume 81 FL (80-99) Mean Corpuscular Hemoglobin 25.7 PG (27.0-31.0) L Mean Corpuscular Hemoglobin Concent 31.6 G/DL (32.0-36.0) L Red Cell Distribution Width 20.9 % (11.6-14.8) H Platelet Count 88 K/UL (150-450) L Mean Platelet Volume 5.5 FL (6.5-10.1) L Neutrophils (%) (Auto) % (45.0-75.0) Lymphocytes (%) (Auto) % (20.0-45.0) Monocytes (%) (Auto) % (1.0-10.0) Eosinophils (%) (Auto) % (0.0-3.0) Basophils (%) (Auto) % (0.0-2.0) Differential Total Cells Counted 100 Neutrophils % (Manual) 71 % (45-75) Lymphocytes % (Manual) 23 % (20-45) Monocytes % (Manual) 4 % (1-10) Eosinophils % (Manual) 1 % (0-3) Basophils % (Manual) 0 % (0-2) Band Neutrophils 1 % (0-8) Platelet Estimate Decreased L Platelet Morphology Normal Hypochromasia 2+ Anisocytosis 2+ Prothrombin Time 13.0 SEC (9.30-11.50) H Prothromb Time International Ratio 1.2 (0.9-1.1) H Activated Partial Thromboplast Time 34 SEC (23-33) H Sodium Level 130 MMOL/L (136-145) L Potassium Level 4.5 MMOL/L (3.5-5.1) Chloride Level 99 MMOL/L (98-107) Carbon Dioxide Level 25 MMOL/L (21-32) Anion Gap 6 mmol/L (5-15) Blood Urea Nitrogen 19 mg/dL (7-18) H Creatinine 1.4 MG/DL (0.55-1.30) H Estimat Glomerular Filtration Rate > 60 mL/min (>60) Glucose Level 101 MG/DL (74-106) Lactic Acid Level 2.40 mmol/L (0.4-2.0) H 2.10 mmol/L (0.66-2.22) Calcium Level 7.0 MG/DL (8.5-10.1) L Phosphorus Level 3.7 MG/DL (2.5-4.9) Magnesium Level 1.7 MG/DL (1.8-2.4) L Total Bilirubin 1.2 MG/DL (0.2-1.0) H Direct Bilirubin 0.2 MG/DL (0.0-0.3) Aspartate Amino Transf (AST/SGOT) 23 U/L (15-37) Alanine Aminotransferase (ALT/SGPT) < 6 U/L (12-78) L Alkaline Phosphatase 78 U/L (46-116) Total Creatine Kinase 31 U/L (26-308) Creatine Kinase MB < 0.5 NG/ML (0.0-3.6) Creatine Kinase MB Relative Index Troponin I 0.000 ng/mL (0.000-0.056) Pro-B-Type Natriuretic Peptide 350 pg/mL (0-125) H Total Protein 6.4 G/DL (6.4-8.2) Albumin 1.1 G/DL (3.4-5.0) L Globulin 5.3 g/dL Albumin/Globulin Ratio 0.2 (1.0-2.7) L Lipase 57 U/L (73-393) L Urine Color Mayda Urine Appearance Clear Urine pH 5 (4.5-8.0) Urine Specific [place] 1.010 (1.005-1.035) Urine Protein 2+ (NEGATIVE) H Urine Glucose (UA) Negative (NEGATIVE) Urine Ketones Negative (NEGATIVE) Urine Blood 1+ (NEGATIVE) H Urine Nitrite Negative (NEGATIVE) Urine Bilirubin Negative (NEGATIVE) Urine Ictotest Negative (NEGATIVE) Urine Urobilinogen 4 MG/DL (0.0-1.0) H Urine Leukocyte Esterase 1+ (NEGATIVE) H Urine RBC 0-2 /HPF (0 - 0) H Urine WBC 0-2 /HPF (0 - 0) Urine Squamous Epithelial Cells None /LPF (NONE/OCC) Urine Amorphous Sediment Few /LPF (NONE) H Urine Bacteria Occasional /HPF (NONE) Height (Feet): 6 Height (Inches): 0.00 Weight (Pounds): 125 Medications Current Medications Medications (Trade) Dose Ordered Sig/Yessica Route PRN Reason Start Time Stop Time Status Last Admin Dose Admin Acetaminophen (Tylenol) 650 mg Q4H PRN ORAL fever 06/12/18 09:30 07/12/18 09:29 Al Hydroxide/Mg Hydroxide (Mylanta II) 30 ml Q6H PRN ORAL dyspepsia 06/12/18 09:30 07/12/18 09:29 Dextrose (Dextrose 50%) 25 ml Q30M PRN IV Hypoglycemia 06/12/18 09:30 07/12/18 09:29 Dextrose (Dextrose 50%) 50 ml Q30M PRN IV Hypoglycemia 06/12/18 09:30 07/12/18 09:29 Dextrose/Sodium Chloride 1,000 ml @ 75 mls/hr [id number] IV 06/12/18 11:00 07/12/18 10:59 06/12/18 11:37 Diphenhydramine HCl (Benadryl) 25 mg Q6H PRN ORAL Itching/Pruritis 06/12/18 09:30 07/12/18 09:29 Lorazepam (Ativan 2mg/ml 1ml) 1 mg Q4H PRN IV agitation 06/12/18 09:30 06/19/18 09:29 Metoclopramide HCl (Reglan) 10 mg Q6H PRN IVP servere nauasea 06/12/18 09:30 07/12/18 09:29 Mirtazapine (Remeron) 15 mg BEDTIME ORAL 06/12/18 21:00 07/12/18 20:59 Morphine Sulfate (Morphine Sulfate) 2 mg Q4H PRN IVP severe Pain (Pain Scale 7-10) 06/12/18 09:30 06/19/18 09:29 06/12/18 14:47 Nitroglycerin (Ntg) 0.4 mg Q5M X 3 DOSES PRN SL Prn Chest Pain 06/12/18 09:30 07/12/18 09:29 Ondansetron HCl (Zofran) 4 mg Q6H PRN IVP Nausea & Vomiting 06/12/18 09:30 07/12/18 09:29 06/12/18 10:07 Pantoprazole (Protonix) 40 mg DAILY IV 06/13/18 09:00 07/13/18 08:59 Piperacillin Sod/ Tazobactam Sod 3.375 gm/Sodium Chloride 110 ml @ 27.5 mls/hr EVERY 8 HOURS IVPB 06/12/18 14:00 06/17/18 13:59 06/12/18 15:01 Polyethylene Glycol (Miralax) 17 gm HSPRN PRN ORAL Constipation 06/12/18 09:30 07/12/18 09:29 Promethazine HCl (Phenergan) 25 mg Q6H PRN IM REFRACTORY N/V 06/12/18 09:30 07/12/18 09:29 Temazepam (Restoril) 15 mg HSPRN PRN ORAL Insomnia 06/12/18 09:30 06/19/18 09:29 Assessment/Plan Assessment/Plan: Abx: Zosyn 06/12- Flagyl x1 06/12 Assessment: Probable Sepsis Multisystemic symptoms (weakness, cough, vomiting)- r/o acute infection/ Opportunistic infection- Probable Castleman recurrence Afebrile NO leukocytosis -u/a neg -CXR: Questionable infiltrate right perihilar region. Recommend repeat/follow- up -Abd US: Cholelithiasis. Minimal pericholecystic fluid. Correlate clinically for cholecystitis. Thrombocytopenia Anemia CKD Diffuse lymphadenopathy- Ddx: CMV disease (ie colitis), Diffuse MAC, recurrente Castleman, HIV related, lymphoma -05/18 s/p L axillary lymph node biopsy -path fragments of benign lymph node with pronounced polytypic plasmacytosis; focally + HHV8. 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 -05/16/18 CT chest: Mediastinal, axillary, and supraclavicular lymphadenopathy , enlarged compared to the prior CT of the chest. Largest left axillary node measures 3.4 x 2.4 cm. Largest supraclavicular node on the left measures 3.8 x 2.8 cm. Largest mediastinal nodes include a 2.2 x 1.6 cm pretracheal node and a 2.3 x 1.6 cm subcarinal node. Small layering right pleural effusion with fluid in the minor fissure. Kasie-bronchovascular groundglass haziness and nodularity in the right lower lobe. Scattered paraseptal emphysematous changes, predominantly in the upper lung zones. -05/16/18 CT abd/p: Diffuse edema and haziness throughout the mesenteric root. Not significantly changed compared to the visualized portions of the mesenteric root in the prior CT of the chest dated 10/22/17. Mesenteric, retroperitoneal, and inguinal lymphadenopathy. Largest retroperitoneal node measures 3.1 x 2.5 x 2.0 cm to left of the IVC (series 8 image 56, series 10 image 23). Largest left inguinal left node measures 2.9 x 2.5 cm (series 8 image 90). Mild fluid distention and air-fluid levels throughout the colon, which may suggest mild colitis and/or diarrheal disease. No evidence of bowel obstruction. Cholelithiasis without gallbladder wall thickening or ductal dilatation. Scattered subcentimeter hypodensities throughout the spleen, possibly tiny simple cysts. Subcentimeter simple-appearing left renal cortical cysts. Mild urinary bladder wall thickening, most likely related to underdistention. -CT head: . Opacification of the right maxillary sinus, right frontal sinus , and mucosal thickening throughout the ethmoid air cells and left maxillary sinus, suggestive of sinusitis. Partial opacification of the inferior posterior aspect of the left mastoid air cells, suggesting small left mastoid effusion. 04/2018- Cr Ag , T spot, CMV PCR, CMV IgM neg - 10/22/17- CT show reticular opacity and significant lymphadenopathy 10/23/17 - CT abd/pel Lymphadenopathy, Enlarged Pancrease mild B/L hydronephrosis -Blasto, Histo, CrAg neg 11/21/16 - Quantiferon negative (Out Side lab) Recent Colitis -04/2018 Cdiff neg -stool cx normal phi - O and P neg x3 HIV/AIDS- questionable compliance to ARV (dx 1999)- on Truvada and Dolutegravir -04/2018 HIV VL p, Cd4 64 (9.1%); VL 100 ?decrease due to non compliance, however low viremia (will expect higher viremia if non compliance) -10/2017 HIV VL ND, CD4 87 (12.4%) -09/01/17 - CD4 192 and VL - ND (Out Side labs) -no hx of resistance ; previously on Truvada, Reyataz and Norvir -Has been above 200 in the past. Came down with Chemo hx pancreatitis 10/2017 hx of Kaposi's sarcoma/Castleman's disease s/p chemotherapy - S/P Chemo ending 07/17/17 Last PET 08/12/17 - show stable/not worsening lymphadenopathy Hep C+ -VL ND hx of Chronic Hep B, VL <15 09/01/17 hx of DVT Plan: -Continue empiric Zosyn for now - 05/21/18 SP Ceftriaxone #5 and Flagyl #7 for colitis -05/15/18 SP empiric IV Vancomycin #4 and switch empiric Zosyn #3 to Ceftriaxone and Flagyl -05/16/18 SP Tamiflu #4 - 05/12 SP Cefepime x1 -f/u cx -Monitor CBC/CMP, temperatures -Heme onc c/s -Will need excisional biopsy and bone marrow biopsy- high suspicion for recurrence of Castleman's disease -HIV VL and genotype, Hep B PCR, RPR, GC/CL am -CXR 2 v am -AFB bcx, sp cx, PCP DFA, influenza sc -aspiration precautions Thank you for this consultation. Will continue to follow along with you. Discussed with Maite Avalos M.D. Jun 12, 2018 16:06
--- NOTE | 2018-06-12 17:21 | History & Physical ---
History and Physical History & Physicial Alberto Gtz MD Jun 12, 2018 17:21
--- NOTE | 2018-06-12 17:27 | NUR ---
NURSE NOTES: Pt was adamant that he wants to eat "I have to eat, you can't do that to someone. I'm not going to deal with that." RN discussed with Dr. Gtz. Per Dr. Gtz - place order for regular diet and monitor if pt is able to tolerate. Will carry out orders.
--- NOTE | 2018-06-12 19:00 | NUR ---
HAND-OFF: Report given to TRES Toney.
--- NOTE | 2018-06-12 19:05 | NUR ---
NURSE NOTES: Report received from Scotty Louis RN. Pt is resting in bed in stable condition. Pt is awake, alert, and oriented x4. Pt is on room air and breathing is even and unlabored. No acute distress noted. IV site is L FA #20g and is running D5 1/2 NS @ rx rate of 75 cc/hr. Bed is placed in lowest position with brake engaged, side rails up x3, and bed alarm on. Call light, side table, and urinal placed within reach. Pt denies pain at this time. Fall precautions in place - yellow socks on, sign outside of door. Pt instructed to use call light prior to attempting to get out of bed. Pt verbalized understanding of instructions and agreeable. Will continue to monitor.
--- NOTE | 2018-06-12 19:15 | NUR ---
NURSE NOTES: Day shift TRES Louis collected urine and flu swabs and delivered to lab.
--- NOTE | 2018-06-12 19:54 | NUR ---
CASE MANAGEMENT: REVIEW 37Y/F PRESENTED TO ED FROM HOME CC: PAIN IN RIGHT GROIN , ABD , BLE 11/26 X3DAYS SI: NAUSEA & VOMITING . KAPOSI DISEASE . HIV . HEPATITIS B & C ABD US: CHOLELITHIASIS CXR: INFILTRATE RIGHT PERIHILAR REGION T 97.1 HR 147 RR 31 BP 95/71 SAT 94% ROOM AIR H/H 9.9/31.[address] 88 NA 130 IS: NS IVF BOLUS X1 ZOFRAN IV X1 FLAGYL IV X1 PATIENT ADMITTED TO TELEMETRY UNIT 06/12/2018 DCP: PATIENT IS FROM HOME
[2018-06-12] MEDS ORDERED: Heparin 5000 units/ml inj SUBQ SCH (21:00)
--- NOTE | 2018-06-12 21:52 | Cardiology Report ---
APPROVED REPORT EKG Measurement Heart [id number] Sinus tachycardia Low voltage QRS T wave abnormality, consider anterior ischemia Abnormal ECG
--- NOTE | 2018-06-12 22:45 | NUR ---
NURSE NOTES: Pt had x3 liquid/loose stools since 1900. C. diff toxin ordered and collected per protocol and delivered to lab.
[2018-06-13] VITALS: BP 109/66
[2018-06-13] MEDS: D5 1/2NS 1,000 ML IV SCH ×3 (00:20→21:50)
--- NOTE | 2018-06-13 03:00 | History and Physical Report ---
DATE OF ADMISSION: 06/12/2018 CHIEF COMPLAINT: Nausea, vomiting, weakness, and fatigue. HISTORY OF PRESENT ILLNESS: This is a 37-year-old gentleman with past medical history significant for human immunodeficiency virus/acquired immune deficiency syndrome with ? 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 The patient stated that he has been having changes in his chemotherapy regimen and had a plan for the excisional biopsy as well as bone marrow biopsy recently and has been followed up with the manager molecular/oncologist as well as an human immunodeficiency virus doctor. Shortly after initial evaluation in the emergency, the patient was admitted to the hospital with intractable nausea and vomiting, dehydration, and severe protein-calorie malnutrition. PAST MEDICAL SURGICAL HISTORY: As above. History of HIV/AIDS, history of Castleman syndrome, pancreatitis, Kaposi sarcoma, and hepatitis B and C positive. MEDICATIONS AT HOME: Please refer to medication reconciliation. ALLERGIES: No known drug allergies. SOCIAL HISTORY: Denies any smoking, alcohol, or drugs at this time. FAMILY HISTORY: Noncontributory. SYSTEM REVIEW: Mostly as above. Complained about nausea and vomiting. Denies any hemoptysis or hematochezia. Denies any suicidal or homicidal ideation. Denies any loss of consciousness. Denies any fall. Complained of weakness and fatigue. PHYSICAL EXAMINATION: VITAL SIGNS: On admission from the ER, temperature 97.5, pulse of 133, respirations 24, and blood pressure 103/68. GENERAL: The patient is awake, alert, oriented, chronic ill-appearing, and cachectic. HEAD AND NECK: Pupils reactive to light. Anicteric. Has a strabismus with disconjugate gait. Neck was supple. No JVD. LUNGS: Good air entry. No wheezing or rales. HEART: Reveals S1, S2. Regular rhythm. No gallops. ABDOMEN: Soft. Mildly distended. No rebound tenderness. No fluid shift. EXTREMITIES: No cyanosis, clubbing, or edema. Muscle atrophy with discoloration of the bilateral lower extremity with hyperpigmentation, and rashes of bilateral lower extremity was noted. NEUROLOGIC: CULINARY MANAGER II through XII grossly intact. Motor is 5/5 in all extremities. Gait was not assessed due to the patient's status. LABORATORY DATA: On admission, WBC of 7.5, hemoglobin 9.9, hematocrit 31, and platelets is 88,000. PT 12, INR 1.2, and PTT of 34. Sodium 130, potassium 4.5, chloride 99, bicarbonate 25, BUN 19, and creatinine 1.4. The patient's lactic acid initially is 2.4 and repeat one is 2.1. Magnesium is 1.7. Phosphorus is 3.7. Troponin less than 0.00. ProBNP of 350. Lipase is 57. PT of 11. INR is 1.2 and PTT of 34. UA, +2 protein, +1 blood, 4 urobilinogen, +1 leukocyte esterase, few amorphous sedimentation. The patient had a chest x-ray, ? infiltrate in the right perihilar region. Ultrasound of the abdomen showed cholelithiasis and mild pericolonic cystic fluid. ASSESSMENT: 1. Intractable nausea and vomiting. 2. Severe protein-calorie malnutrition. 3. Hyponatremia. 4. History of HIV/AIDS. 5. Kaposi sarcoma. 6. Castleman syndrome. 7. History of hepatitis B and C positive. 8. Anemia of chronic disease. 9. Thrombocytopenia. PLAN: 1. Admit the patient to monitored unit. 2. We will follow up with Dr. Mobley from Infectious Disease consultation and Dr. Hester from Pulmonary Critical Care. 3. Monitor laboratory. 4. IV hydration. 5. Code status is Full Code. 6. Follow up with broad-spectrum antibiotic with Zosyn. 7. Monitor culture. 8. Anti-emetic medication with Zofran. 9. Resume home medication. Alberto Gtz M.D. DR: JASEN JOB#: [id number] CC:
--- NOTE | 2018-06-13 03:38 | NUR ---
NURSE NOTES: Microbiology called to report pt stool positive for c.diff. Contact precautions initiated. Will notify primary and ID doctor.
[2018-06-13 04:00] VITALS: BP 114/81
[2018-06-13] MEDS: Morphine Sulfate 2mg/ml Inj(IV/IM USE ONLY) IVP PRN ×5 (04:33→21:45)
[2018-06-13] MEDS: Piperacillin/Tazobactam 3.375 GM in NS 110 ML IVPB SCH (06:10)
--- NOTE | 2018-06-13 06:42 | NUR ---
NURSE NOTES: Message left with answering service for MD Mobley/MD Mendoza to report positive c. diff toxin result. Awaiting call back for further instructions.
--- NOTE | 2018-06-13 06:57 | NUR ---
NURSE NOTES: MD Gtz notified of positive c. diff result. Per MD, discontinue zosyn and start Vancomycin 125mg PO QID. Orders noted and carried out.
--- NOTE | 2018-06-13 07:37 | NUR ---
HAND-OFF: Report given to Fermin Kirkland RN. Pt is resting in bed in stable condition. No acute distress noted. Endorsed plan of care.
[2018-06-13 08:00] VITALS: BP 106/63
--- NOTE | 2018-06-13 08:21 | NUR ---
received report from Dawna JOSHUA. Pt sleeping in bed. pt on director of cardiac cath lab no signs of distress but tachycardic, advised Dr. Hester about it there is no PRN meds for it. Bed in lowest position and locked. call light within reach. Will continue to monitor and continue plan of care.
[2018-06-13 08:31] LABS: HEMOGLOBIN 8.2 G/DL (14.2-18.0); MEAN CORPUSCULAR VOLUME 80 FL (80-99); PLATELET COUNT 66 K/UL (150-450); RED BLOOD COUNT 3.23 M/UL (4.70-6.10); RED CELL DISTRIBUTION WIDTH 20.9 % (11.6-14.8); WHITE BLOOD COUNT 8.3 K/UL (4.8-10.8)
[2018-06-13 08:50] LABS: ALANINE AMINOTRANSFERASE < 6 U/L (12-78); ALBUMIN 0.8 G/DL (3.4-5.0); ALBUMIN/GLOBULIN RATIO 0.2 (1.0-2.7); ALKALINE PHOSPHATASE 62 U/L (46-116); AMYLASE 30 U/L (25-115); ANION GAP 5 mmol/L (5-15); ASPARTATE AMINO TRANSFERASE 17 U/L (15-37); BILIRUBIN,TOTAL 0.6 MG/DL (0.2-1.0); BLOOD UREA NITROGEN 17 mg/dL (7-18); CALCIUM 6.8 MG/DL (8.5-10.1); CARBON DIOXIDE 24 MMOL/L (21-32); CHLORIDE 102 MMOL/L (98-107); CREATININE 1.2 MG/DL (0.55-1.30); POTASSIUM 4.1 MMOL/L (3.5-5.1); SODIUM 131 MMOL/L (136-145)
[2018-06-13] MEDS ORDERED: Pantoprazole Inj IV SCH (09:00)
[2018-06-13] MEDS: Vancomycin oral 125mg/2.5ml ORAL SCH ×4 (09:32→21:44)
[2018-06-13] MEDS ORDERED: Tubing IV Secondary IV ONE (09:58)
--- NOTE | 2018-06-13 10:10 | Pulmonology Progress Note ---
Assessment/Plan Problems: (1) Severe sepsis (2) HIV disease (3) ATN (acute tubular necrosis) (4) Kaposi disease (5) Cyclic vomiting syndrome (6) Protein-calorie malnutrition, severe (7) Lymphadenopathy Assessment/Plan iv abx check cultures resume HIV meds f/u ID recommendations Subjective ROS Limited/Unobtainable: No Constitutional: Reports: no symptoms HEENT: Repors: no symptoms Allergies: Coded Allergies: No Known Allergies (Unverified , 10/21/17) Objective Last 24 Hour Vital Signs Date Time Temp Pulse Resp B/P (MAP) Pulse Ox O2 Delivery O2 Flow Rate FiO2 06/13/18 04:00 126 06/13/18 04:00 99.5 125 17 114/81 (92) 98 06/13/18 00:00 128 06/13/18 00:00 99.0 130 20 109/66 (80) 96 06/12/18 23:58 99.0 06/12/18 21:00 Room Air 06/12/18 20:00 144 06/12/18 20:00 100.9 130 22 117/70 (86) 98 06/12/18 16:00 128 06/12/18 16:00 97.2 133 18 96/61 (73) 98 06/12/18 12:37 Room Air 06/12/18 12:37 99.1 134 18 106/71 (83) 94 06/12/18 12:31 97.6 128 27 108/71 99 Room Air 06/12/18 12:19 128 27 108/71 99 Room Air 06/12/18 12:05 97.6 134 25 98/67 100 Room Air 06/12/18 11:17 97.6 147 31 95/71 100 Room Air 06/12/18 10:37 97.6 Intake and Output 06/12/18 06/13/18 19:00 07:00 Intake Total 2330.5 ml 600 ml Output Total 450 ml 750 ml Balance 1880.5 ml -150 ml Intake Oral 120 ml 600 ml IV Total 2210.5 ml Output Urine Total 200 ml 750 ml Emesis 250 ml # Voids 2 # Bowel Movements 1 8 Objective General Appearance: WD/WN HEENT: normocephalic, atraumatic Respiratory/Chest: chest wall non-tender, crackles/rales Cardiovascular: normal peripheral pulses, no arrhythmia Abdomen: normal bowel sounds, soft, non tender Genitourinary: normal external genitalia Extremities: no clubbing Skin: no rash, no ulcers Neurologic/Psychiatric: juvenile court liaison II-XII grossly normal Microbiology Date/Time Source Procedure Growth Status 06/12/18 19:15 Nasopharynx - Final Complete 06/12/18 19:15 Nasopharynx - Final Complete 06/12/18 21:45 Stool Clostridium difficile Toxin Assay - Final Complete Laboratory Tests 06/12/18 19:06: Chlamydia trachomatis RNA [Pending], Neisseria gonorrhoeae RNA [Pending] 06/13/18 07:55: White Blood Count 8.3, Red Blood Count 3.23L, Hemoglobin 8.2L, Hematocrit 26.0L , Mean Corpuscular Volume 80, Mean Corpuscular Hemoglobin 25.4L, Mean Corpuscular Hemoglobin Concent 31.6L, Red Cell Distribution Width 20.9H, Platelet Count 66L, Mean Platelet Volume 5.8L, Neutrophils (%) (Auto) , Lymphocytes (%) (Auto) , Monocytes (%) (Auto) , Eosinophils (%) (Auto) , Basophils (%) (Auto) , Differential Total Cells Counted 100, Neutrophils % ( Manual) 73, Lymphocytes % (Manual) 13L, Monocytes % (Manual) 5, Eosinophils % ( Manual) 0, Basophils % (Manual) 0, Band Neutrophils 9H, Platelet Estimate DecreasedL, Platelet Morphology Normal, Hypochromasia 2+, Anisocytosis 2+, Microcytosis 1+, Activated Partial Thromboplast Time 39H, Sodium Level 131L, Potassium Level 4.1, Chloride Level 102, Carbon Dioxide Level 24, Anion Gap 5, Blood Urea Nitrogen 17, Creatinine 1.2, Estimat Glomerular Filtration Rate > 60 , Glucose Level 97, Calcium Level 6.8L, Total Bilirubin 0.6, Aspartate Amino Transf (AST/SGOT) 17, Alanine Aminotransferase (ALT/SGPT) < 6L, Alkaline Phosphatase 62, Total Protein 5.2L, Albumin 0.8L, Globulin 4.4, Albumin/ Globulin Ratio 0.2L, Amylase Level 30, Lipase 60L, Rapid Plasma Reagin [Pending] , Hepatitis B DNA (IU/mL) [Pending], HIV-1 RNA, Quantitative copies/mL [Pending] , HIV-1 RNA (PCR) log10 Value [Pending], HIV-1 RNA Ultraquantitative (PCR) [ Pending], HIV Genotype [Pending] Current Medications Medications (Trade) Dose Ordered Sig/Yessica Route PRN Reason Start Time Stop Time Status Last Admin Dose Admin Acetaminophen (Tylenol) 650 mg Q4H PRN ORAL fever 06/12/18 09:30 07/12/18 09:29 06/12/18 23:28 Al Hydroxide/Mg Hydroxide (Mylanta II) 30 ml Q6H PRN ORAL dyspepsia 06/12/18 09:30 07/12/18 09:29 Dextrose (Dextrose 50%) 25 ml Q30M PRN IV Hypoglycemia 06/12/18 09:30 07/12/18 09:29 Dextrose (Dextrose 50%) 50 ml Q30M PRN IV Hypoglycemia 06/12/18 09:30 07/12/18 09:29 Dextrose/Sodium Chloride 1,000 ml @ 75 mls/hr [id number] IV 06/12/18 11:00 07/12/18 10:59 06/12/18 11:37 Diphenhydramine HCl (Benadryl) 25 mg Q6H PRN ORAL Itching/Pruritis 06/12/18 09:30 07/12/18 09:29 Lorazepam (Ativan 2mg/ml 1ml) 1 mg Q4H PRN IV agitation 06/12/18 09:30 06/19/18 09:29 Metoclopramide HCl (Reglan) 10 mg Q6H PRN IVP servere nauasea 06/12/18 09:30 07/12/18 09:29 Mirtazapine (Remeron) 15 mg BEDTIME ORAL 06/12/18 21:00 07/12/18 20:59 06/12/18 21:29 Morphine Sulfate (Morphine Sulfate) 2 mg Q4H PRN IVP severe Pain (Pain Scale 7-10) 06/12/18 09:30 06/19/18 09:29 06/13/18 09:31 Nitroglycerin (Ntg) 0.4 mg Q5M X 3 DOSES PRN SL Prn Chest Pain 06/12/18 09:30 07/12/18 09:29 Ondansetron HCl (Zofran) 4 mg Q6H PRN IVP Nausea & Vomiting 06/12/18 09:30 07/12/18 09:29 06/12/18 10:07 Pantoprazole (Protonix) 40 mg DAILY IV 06/13/18 09:00 07/13/18 08:59 06/13/18 09:32 Polyethylene Glycol (Miralax) 17 gm HSPRN PRN ORAL Constipation 06/12/18 09:30 07/12/18 09:29 Promethazine HCl (Phenergan) 25 mg Q6H PRN IM REFRACTORY N/V 06/12/18 09:30 07/12/18 09:29 Temazepam (Restoril) 15 mg HSPRN PRN ORAL Insomnia 06/12/18 09:30 06/19/18 09:29 Vancomycin HCl (Firvanq) 125 mg FOUR TIMES A DAY ORAL 06/13/18 09:00 06/20/18 08:59 06/13/18 09:32 Ya Hester MD Jun 13, 2018 10:10
--- NOTE | 2018-06-13 10:36 | Infectious Diseases Prog Note ---
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 Recommend repeat/follow- up -Abd US: Cholelithiasis. Minimal pericholecystic fluid. Correlate clinically for cholecystitis. Thrombocytopenia Anemia CKD Diffuse lymphadenopathy- Ddx: CMV disease (ie colitis), Diffuse MAC, recurrente Castleman, HIV related, lymphoma -05/18 s/p L axillary lymph node biopsy -path fragments of benign lymph node with pronounced polytypic plasmacytosis; focally + HHV8. 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 -05/16/18 CT chest: Mediastinal, axillary, and supraclavicular lymphadenopathy , enlarged compared to the prior CT of the chest. Largest left axillary node measures 3.4 x 2.4 cm. Largest supraclavicular node on the left measures 3.8 x 2.8 cm. Largest mediastinal nodes include a 2.2 x 1.6 cm pretracheal node and a 2.3 x 1.6 cm subcarinal node. Small layering right pleural effusion with fluid in the minor fissure. Kasie-bronchovascular groundglass haziness and nodularity in the right lower lobe. Scattered paraseptal emphysematous changes, predominantly in the upper lung zones. -05/16/18 CT abd/p: Diffuse edema and haziness throughout the mesenteric root. Not significantly changed compared to the visualized portions of the mesenteric root in the prior CT of the chest dated 10/22/17. Mesenteric, retroperitoneal, and inguinal lymphadenopathy. Largest retroperitoneal node measures 3.1 x 2.5 x 2.0 cm to left of the IVC (series 8 image 56, series 10 image 23). Largest left inguinal left node measures 2.9 x 2.5 cm (series 8 image 90). Mild fluid distention and air-fluid levels throughout the colon, which may suggest mild colitis and/or diarrheal disease. No evidence of bowel obstruction. Cholelithiasis without gallbladder wall thickening or ductal dilatation. Scattered subcentimeter hypodensities throughout the spleen, possibly tiny simple cysts. Subcentimeter simple-appearing left renal cortical cysts. Mild urinary bladder wall thickening, most likely related to underdistention. -CT head: . Opacification of the right maxillary sinus, right frontal sinus , and mucosal thickening throughout the ethmoid air cells and left maxillary sinus, suggestive of sinusitis. Partial opacification of the inferior posterior aspect of the left mastoid air cells, suggesting small left mastoid effusion. 04/2018- Cr Ag , T spot, CMV PCR, CMV IgM neg - 10/22/17- CT show reticular opacity and significant lymphadenopathy 10/23/17 - CT abd/pel Lymphadenopathy, Enlarged Pancrease mild B/L hydronephrosis -Blasto, Histo, CrAg neg 11/21/16 - Quantiferon negative (Out Side lab) Recent Colitis -04/2018 Cdiff neg -stool cx normal phi - O and P neg x3 HIV/AIDS- questionable compliance to ARV (dx 1999)- on Truvada and Dolutegravir -04/2018 HIV VL p, Cd4 64 (9.1%); VL 100 ?decrease due to non compliance, however low viremia (will expect higher viremia if non compliance) -10/2017 HIV VL ND, CD4 87 (12.4%) -09/01/17 - CD4 192 and VL - ND (Out Side labs) -no hx of resistance ; previously on Truvada, Reyataz and Norvir -Has been above 200 in the past. Came down with Chemo hx pancreatitis 10/2017 hx of Kaposi's sarcoma/Castleman's disease s/p chemotherapy - S/P Chemo ending 07/17/17 Last PET 08/12/17 - show stable/not worsening lymphadenopathy Hep C+ -VL ND hx of Chronic Hep B, VL <15 09/01/17 hx of DVT Plan: -Continue PO Vancomycin #/-14 -Agree w/discontinuing Zosyn #2 -06/12 SP Flagyl x1 - 05/21/18 SP Ceftriaxone #5 and Flagyl #7 for colitis -05/15/18 SP empiric IV Vancomycin #4 and switch empiric Zosyn #3 to Ceftriaxone and Flagyl -05/16/18 SP Tamiflu #4 - 05/12 SP Cefepime x1 -f/u cx -Monitor CBC/CMP, temperatures -Heme onc c/s -Will need excisional biopsy and bone marrow biopsy- high suspicion for recurrence of Castleman's disease -f/u HIV VL and genotype, Hep B PCR, RPR, GC/CL -f/u CXR 2 v am -f/u AFB bcx, sp cx, PCP DFA -aspiration precautions Thank you for this consultation. Will continue to follow along with you. Discussed with RN. Subjective Allergies: Coded Allergies: No Known Allergies (Unverified , 10/21/17) Subjective Tm 100.8 no leukocytosis or leukopenia cdiff+ Objective Vital Signs Last 24 Hour Vital Signs Date Time Temp Pulse Resp B/P (MAP) Pulse Ox O2 Delivery O2 Flow Rate FiO2 06/13/18 04:00 126 06/13/18 04:00 99.5 125 17 114/81 (92) 98 06/13/18 00:00 128 06/13/18 00:00 99.0 130 20 109/66 (80) 96 06/12/18 23:58 99.0 06/12/18 21:00 Room Air 06/12/18 20:00 144 06/12/18 20:00 100.9 130 22 117/70 (86) 98 06/12/18 16:00 128 06/12/18 16:00 97.2 133 18 96/61 (73) 98 06/12/18 12:37 Room Air 06/12/18 12:37 99.1 134 18 106/71 (83) 94 06/12/18 12:31 97.6 128 27 108/71 99 Room Air 06/12/18 12:19 128 27 108/71 99 Room Air 06/12/18 12:05 97.6 134 25 98/67 100 Room Air 06/12/18 11:17 97.6 147 31 95/71 100 Room Air 06/12/18 10:37 97.6 Height (Feet): 6 Height (Inches): 0.00 Weight (Pounds): 125 Objective General Appearance: cachetic, thin Lines, tubes and drains: peripheral HEENT: normocephalic, anicteric Neck: non-tender, normal alignment Respiratory/Chest: chest wall non-tender, lungs clear Cardiovascular/Chest: normal peripheral pulses, normal rate Abdomen: normal bowel sounds, non tender Extremities: non-pitting Microbiology Date/Time Source Procedure Growth Status 06/12/18 19:15 Nasopharynx - Final Complete 06/12/18 19:15 Nasopharynx - Final Complete 06/12/18 21:45 Stool Clostridium difficile Toxin Assay - Final Complete Laboratory Tests Test 06/12/18 19:06 06/13/18 07:55 Chlamydia trachomatis RNA Pending Neisseria gonorrhoeae RNA Pending White Blood Count 8.3 K/UL (4.8-10.8) Red Blood Count 3.23 M/UL (4.70-6.10) L Hemoglobin 8.2 G/DL (14.2-18.0) L Hematocrit 26.0 % (42.0-52.0) L Mean Corpuscular Volume 80 FL (80-99) Mean Corpuscular Hemoglobin 25.4 PG (27.0-31.0) L Mean Corpuscular Hemoglobin Concent 31.6 G/DL (32.0-36.0) L Red Cell Distribution Width 20.9 % (11.6-14.8) H Platelet Count 66 K/UL (150-450) L Mean Platelet Volume 5.8 FL (6.5-10.1) L Neutrophils (%) (Auto) % (45.0-75.0) Lymphocytes (%) (Auto) % (20.0-45.0) Monocytes (%) (Auto) % (1.0-10.0) Eosinophils (%) (Auto) % (0.0-3.0) Basophils (%) (Auto) % (0.0-2.0) Differential Total Cells Counted 100 Neutrophils % (Manual) 73 % (45-75) Lymphocytes % (Manual) 13 % (20-45) L Monocytes % (Manual) 5 % (1-10) Eosinophils % (Manual) 0 % (0-3) Basophils % (Manual) 0 % (0-2) Band Neutrophils 9 % (0-8) H Platelet Estimate Decreased L Platelet Morphology Normal Hypochromasia 2+ Anisocytosis 2+ Microcytosis 1+ Activated Partial Thromboplast Time 39 SEC (23-33) H Sodium Level 131 MMOL/L (136-145) L Potassium Level 4.1 MMOL/L (3.5-5.1) Chloride Level 102 MMOL/L (98-107) Carbon Dioxide Level 24 MMOL/L (21-32) Anion Gap 5 mmol/L (5-15) Blood Urea Nitrogen 17 mg/dL (7-18) Creatinine 1.2 MG/DL (0.55-1.30) Estimat Glomerular Filtration Rate > 60 mL/min (>60) Glucose Level 97 MG/DL (74-106) Calcium Level 6.8 MG/DL (8.5-10.1) L Total Bilirubin 0.6 MG/DL (0.2-1.0) Aspartate Amino Transf (AST/SGOT) 17 U/L (15-37) Alanine Aminotransferase (ALT/SGPT) < 6 U/L (12-78) L Alkaline Phosphatase 62 U/L (46-116) Total Protein 5.2 G/DL (6.4-8.2) L Albumin 0.8 G/DL (3.4-5.0) L Globulin 4.4 g/dL Albumin/Globulin Ratio 0.2 (1.0-2.7) L Amylase Level 30 U/L (25-115) Lipase 60 U/L (73-393) L Rapid Plasma Reagin Pending Hepatitis B DNA (IU/mL) Pending HIV-1 RNA, Quantitative copies/mL Pending HIV-1 RNA (PCR) log10 Value Pending HIV-1 RNA Ultraquantitative (PCR) Pending HIV Genotype Pending Current Medications Medications (Trade) Dose Ordered Sig/Yessica Route PRN Reason Start Time Stop Time Status Last Admin Dose Admin Acetaminophen (Tylenol) 650 mg Q4H PRN ORAL fever 06/12/18 09:30 07/12/18 09:29 06/12/18 23:28 Al Hydroxide/Mg Hydroxide (Mylanta II) 30 ml Q6H PRN ORAL dyspepsia 06/12/18 09:30 07/12/18 09:29 Dextrose (Dextrose 50%) 25 ml Q30M PRN IV Hypoglycemia 06/12/18 09:30 07/12/18 09:29 Dextrose (Dextrose 50%) 50 ml Q30M PRN IV Hypoglycemia 06/12/18 09:30 07/12/18 09:29 Dextrose/Sodium Chloride 1,000 ml @ 75 mls/hr [id number] IV 06/12/18 11:00 07/12/18 10:59 06/12/18 11:37 Diphenhydramine HCl (Benadryl) 25 mg Q6H PRN ORAL Itching/Pruritis 06/12/18 09:30 07/12/18 09:29 Dolutegravir Sodium (Tivicay) 50 mg DAILY ORAL 06/14/18 09:00 07/14/18 08:59 UNV Dronabinol (Marinol) 2.5 mg BID ORAL 06/13/18 18:00 07/13/18 17:59 UNV Emtricitabine/ Tenofovir (Truvada 200/ 300mg) 1 tab DAILY ORAL 06/14/18 09:00 07/14/18 08:59 UNV Lorazepam (Ativan 2mg/ml 1ml) 1 mg Q4H PRN IV agitation 06/12/18 09:30 06/19/18 09:29 Metoclopramide HCl (Reglan) 10 mg Q6H PRN IVP servere nauasea 06/12/18 09:30 07/12/18 09:29 Mirtazapine (Remeron) 15 mg BEDTIME ORAL 06/12/18 21:00 07/12/18 20:59 06/12/18 21:29 Morphine Sulfate (Morphine Sulfate) 4 mg Q4H PRN IVP severe Pain (Pain Scale 7-10) 06/13/18 13:30 06/19/18 09:29 Nitroglycerin (Ntg) 0.4 mg Q5M X 3 DOSES PRN SL Prn Chest Pain 06/12/18 09:30 07/12/18 09:29 Ondansetron HCl (Zofran) 4 mg Q6H PRN IVP Nausea & Vomiting 06/12/18 09:30 07/12/18 09:29 06/12/18 10:07 Promethazine HCl (Phenergan) 25 mg Q6H PRN IM REFRACTORY N/V 06/12/18 09:30 07/12/18 09:29 Temazepam (Restoril) 15 mg HSPRN PRN ORAL Insomnia 06/12/18 09:30 06/19/18 09:29 Vancomycin HCl (Firvanq) 125 mg FOUR TIMES A DAY ORAL 06/13/18 09:00 06/20/18 08:59 06/13/18 09:32 Maite Mobley M.D. Jun 13, 2018 10:36
--- NOTE | 2018-06-13 10:57 | NUR ---
RD ASSESSMENT & RECOMMENDATIONS SEE CARE ACTIVITY FOR COMPLETE ASSESSMENT DAILY ESTIMATED NEEDS: Needs based on CA, sepsis, HIV/57kg 30-40 kcals/kg 7785-0830 total kcals 1-2 g protein/kg 57-114 g total protein 25-30 mL/kg 2794-9069 total fluid mLs NUTRITION DIAGNOSIS: * Increased kcal/prot intake needs R/T catabolic dx, underweight status, possible recent wt loss as evidenced by dx of Kaposi's sarcoma, h/o HIV, low BMI per guidelines w/ possible significant wt loss of 10lbs/7.4% in 1 month. CURRENT DIET:REGULAR PO DIET RECOMMENDATIONS: REGULAR diet + Ensure Enlive TID @ all meals ADDITIONAL RECOMMENDATIONS: * Calibrated bedscale wt or standing wt for accurate CBW -underweight, possible recent wt loss * Rec probiotics- stool C-diff + * Monitor PO intake and tolerance- c/o N/V/D upon adm * Monitor lytes daily, replete as needed .
--- NOTE | 2018-06-13 11:18 | NUR ---
NURSE NOTES: per pt. his mother will bring HIV meds to the hospital today. I spoke with his mother and she confirmed it. She just wants to make sure that these meds are given back to her son upon DC because last few times he has been here they haven't given her back the his meds.
[2018-06-13 12:00] VITALS: BP 113/67
[2018-06-13] MEDS ORDERED: Vancomycin oral 125mg/2.5ml ORAL SCH (13:00)
--- NOTE | 2018-06-13 14:28 | Internal Med Progress Note ---
Subjective Date of Service: Jun 13, 2018 Physician Name Padron,Adam Attending Physician Alberto Gtz MD Current Medications Medications (Trade) Dose Ordered Sig/Yessica Route PRN Reason Start Time Stop Time Status Last Admin Dose Admin Acetaminophen (Tylenol) 650 mg Q4H PRN ORAL fever 06/12/18 09:30 07/12/18 09:29 06/13/18 11:27 Al Hydroxide/Mg Hydroxide (Mylanta II) 30 ml Q6H PRN ORAL dyspepsia 06/12/18 09:30 07/12/18 09:29 Dextrose (Dextrose 50%) 25 ml Q30M PRN IV Hypoglycemia 06/12/18 09:30 07/12/18 09:29 Dextrose (Dextrose 50%) 50 ml Q30M PRN IV Hypoglycemia 06/12/18 09:30 07/12/18 09:29 Dextrose/Sodium Chloride 1,000 ml @ 75 mls/hr [id number] IV 06/12/18 11:00 07/12/18 10:59 06/13/18 13:24 Diphenhydramine HCl (Benadryl) 25 mg Q6H PRN ORAL Itching/Pruritis 06/12/18 09:30 07/12/18 09:29 Dolutegravir Sodium (Tivicay) 50 mg DAILY ORAL 06/14/18 09:00 07/14/18 08:59 UNV Dronabinol (Marinol) 2.5 mg BID ORAL 06/13/18 18:00 07/13/18 17:59 Emtricitabine/ Tenofovir (Truvada 200/ 300mg) 1 tab DAILY ORAL 06/14/18 09:00 07/14/18 08:59 UNV Lorazepam (Ativan 2mg/ml 1ml) 1 mg Q4H PRN IV agitation 06/12/18 09:30 06/19/18 09:29 Metoclopramide HCl (Reglan) 10 mg Q6H PRN IVP servere nauasea 06/12/18 09:30 07/12/18 09:29 Mirtazapine (Remeron) 15 mg BEDTIME ORAL 06/12/18 21:00 07/12/18 20:59 06/12/18 21:29 Morphine Sulfate (Morphine Sulfate) 4 mg Q4H PRN IVP severe Pain (Pain Scale 7-10) 06/13/18 13:30 06/19/18 09:29 06/13/18 13:18 Nitroglycerin (Ntg) 0.4 mg Q5M X 3 DOSES PRN SL Prn Chest Pain 06/12/18 09:30 07/12/18 09:29 Ondansetron HCl (Zofran) 4 mg Q6H PRN IVP Nausea & Vomiting 06/12/18 09:30 07/12/18 09:29 06/12/18 10:07 Promethazine HCl (Phenergan) 25 mg Q6H PRN IM REFRACTORY N/V 06/12/18 09:30 07/12/18 09:29 Temazepam (Restoril) 15 mg HSPRN PRN ORAL Insomnia 06/12/18 09:30 06/19/18 09:29 Vancomycin HCl (Firvanq) 125 mg FOUR TIMES A DAY ORAL 06/13/18 09:00 06/20/18 08:59 06/13/18 13:49 Allergies: Coded Allergies: No Known Allergies (Unverified , 10/21/17) ROS Limited/Unobtainable: No Constitutional: Reports: no symptoms HEENT: Reports: no symptoms Cardiovascular: Reports: no symptoms Respiratory: Reports: no symptoms Gastrointestinal/Abdominal: Reports: diarrhea, nausea Genitourinary: Reports: no symptoms Neurologic/Psychiatric: Reports: no symptoms Subjective 37 YO M with history of HIV, kaposi's Sarcoma and Castleman Dis admitted with nausea, vomiting and diarrhea. Now C. Diff. Cover for Dereje White-Dr Gtz. Objective Last Vital Signs Date Time Temp Pulse Resp B/P (MAP) Pulse Ox O2 Delivery O2 Flow Rate FiO2 06/13/18 11:57 99.1 06/13/18 04:00 126 06/13/18 04:00 17 114/81 (92) 98 06/12/18 21:00 Room Air Laboratory Tests Test 06/12/18 19:06 06/13/18 07:55 Chlamydia trachomatis RNA Pending Neisseria gonorrhoeae RNA Pending White Blood Count 8.3 K/UL (4.8-10.8) Red Blood Count 3.23 M/UL (4.70-6.10) L Hemoglobin 8.2 G/DL (14.2-18.0) L Hematocrit 26.0 % (42.0-52.0) L Mean Corpuscular Volume 80 FL (80-99) Mean Corpuscular Hemoglobin 25.4 PG (27.0-31.0) L Mean Corpuscular Hemoglobin Concent 31.6 G/DL (32.0-36.0) L Red Cell Distribution Width 20.9 % (11.6-14.8) H Platelet Count 66 K/UL (150-450) L Mean Platelet Volume 5.8 FL (6.5-10.1) L Neutrophils (%) (Auto) % (45.0-75.0) Lymphocytes (%) (Auto) % (20.0-45.0) Monocytes (%) (Auto) % (1.0-10.0) Eosinophils (%) (Auto) % (0.0-3.0) Basophils (%) (Auto) % (0.0-2.0) Differential Total Cells Counted 100 Neutrophils % (Manual) 73 % (45-75) Lymphocytes % (Manual) 13 % (20-45) L Monocytes % (Manual) 5 % (1-10) Eosinophils % (Manual) 0 % (0-3) Basophils % (Manual) 0 % (0-2) Band Neutrophils 9 % (0-8) H Platelet Estimate Decreased L Platelet Morphology Normal Hypochromasia 2+ Anisocytosis 2+ Microcytosis 1+ Activated Partial Thromboplast Time 39 SEC (23-33) H Sodium Level 131 MMOL/L (136-145) L Potassium Level 4.1 MMOL/L (3.5-5.1) Chloride Level 102 MMOL/L (98-107) Carbon Dioxide Level 24 MMOL/L (21-32) Anion Gap 5 mmol/L (5-15) Blood Urea Nitrogen 17 mg/dL (7-18) Creatinine 1.2 MG/DL (0.55-1.30) Estimat Glomerular Filtration Rate > 60 mL/min (>60) Glucose Level 97 MG/DL (74-106) Calcium Level 6.8 MG/DL (8.5-10.1) L Total Bilirubin 0.6 MG/DL (0.2-1.0) Aspartate Amino Transf (AST/SGOT) 17 U/L (15-37) Alanine Aminotransferase (ALT/SGPT) < 6 U/L (12-78) L Alkaline Phosphatase 62 U/L (46-116) Total Protein 5.2 G/DL (6.4-8.2) L Albumin 0.8 G/DL (3.4-5.0) L Globulin 4.4 g/dL Albumin/Globulin Ratio 0.2 (1.0-2.7) L Amylase Level 30 U/L (25-115) Lipase 60 U/L (73-393) L Rapid Plasma Reagin Pending Hepatitis B DNA (IU/mL) Pending HIV-1 RNA, Quantitative copies/mL Pending HIV-1 RNA (PCR) log10 Value Pending HIV-1 RNA Ultraquantitative (PCR) Pending HIV Genotype Pending Microbiology Date/Time Source Procedure Growth Status 06/12/18 19:15 Nasopharynx - Final Complete 06/12/18 19:15 Nasopharynx - Final Complete 06/12/18 21:45 Stool Clostridium difficile Toxin Assay - Final Complete Intake and Output 06/12/18 06/13/18 19:00 07:00 Intake Total 2330.5 ml 600 ml Output Total 450 ml 750 ml Balance 1880.5 ml -150 ml Intake Oral 120 ml 600 ml IV Total 2210.5 ml Output Urine Total 200 ml 750 ml Emesis 250 ml # Voids 2 # Bowel Movements 1 8 Objective PHYSICAL EXAMINATION: GENERAL: The patient is awake, alert, oriented, chronic ill-appearing, and cachectic. HEAD AND NECK: Pupils reactive to light. Anicteric. Has a strabismus with disconjugate gait. Neck was supple. No JVD. LUNGS: Good air entry. No wheezing or rales. HEART: Tachycardia; Reveals S1, S2. Regular rhythm. No gallops. ABDOMEN: Soft. Mildly distended. No rebound tenderness. No fluid shift. EXTREMITIES: No cyanosis, clubbing, or edema. Muscle atrophy with discoloration of the bilateral lower extremity with hyperpigmentation, and rashes of bilateral lower extremity was noted. NEUROLOGIC: PHOTO TECHNICIAN II through XII grossly intact. Motor is 5/5 in all extremities. Gait was not assessed due to the patient's status. Assessment/Plan Assessment/Plan ASSESSMENT: 1. Intractable nausea and vomiting. 2. Severe protein-calorie malnutrition. 3. Hyponatremia. 4. History of HIV/AIDS. 5. Kaposi sarcoma. 6. Castleman syndrome. 7. History of hepatitis B and C positive. 8. Anemia of chronic disease. 9. Thrombocytopenia. 10. Tachycardia 11. Clostridium difficile PLAN: 1. Admit the patient to monitored unit. 2. We will follow up with Dr. Mobley from Infectious Disease consultation and Dr. Hester from Pulmonary Critical Care. 3. Monitor laboratory. 4. IV hydration. 5. Code status is Full Code. 6. Follow up with broad-spectrum antibiotic with Zosyn. 7. Monitor culture. 8. Anti-emetic medication with Zofran. 9. Resume home medication. 10. ?dehydration due to nausea and diarrhea?-cardiology consult-Dr Howe 11. Oral vanco per Adam Krueger MD Jun 13, 2018 14:28
[2018-06-13 16:00] VITALS: BP 103/67
--- NOTE | 2018-06-13 16:29 | Diagnostic Imaging Report ---
History: COUGH Exam: XR CXR 2 VIEWS Comparison: 06/12/2018 FINDINGS: Patchy right perihilar ill-defined appearing airspace opacity. Interval increase in bilateral perihilar markings, may represent pneumonitis or edema, nonspecific. There is now appearance of a small right pleural effusion. Cardiac silhouette appears within limits. Visualized osseous structures appear within limits. IMPRESSION: Patchy right perihilar ill-defined appearing airspace opacity. Interval increase in bilateral perihilar markings, may represent pneumonitis or edema, nonspecific. There is now appearance of a small right pleural effusion.
[2018-06-13] MEDS: Dronabinol 2.5mg Cap ORAL SCH (17:37)
--- NOTE | 2018-06-13 19:45 | NUR ---
NURSE NOTES: Report received from Fermin Kirkland RN. Pt is resting in bed in stable condition. Pt is awake, alert, and oriented x4. Pt is on room air and breathing is even and unlabored. No acute distress noted. IV site is L FA #20g and is running IV fluids D5 1/2 NS @ rx rate of 75 cc/hr. Bed is in lowest position with brake engaged, side rails up x3, and bed alarm on. Call light and side table placed within reach. Will continue to monitor.
[2018-06-13 20:00] VITALS: BP 116/63
--- NOTE | 2018-06-13 20:14 | NUR ---
NURSE NOTES: MD Howe made aware that pt is running sinus tachycardia between 120 - 150 and current vital signs and patient status. MD Howe made aware of 2D Echo results from today's test as well. Per MD, increase IV fluids to 100cc/hr, otherwise no new orders and continue to monitor patient.
--- NOTE | 2018-06-13 20:59 | NUR ---
Advised , and Doctor Maryam about pt. tachycardia. HIv meds were brought by mother today. Meds were given to pt. today. Pls make sure Pt. gets HIV meds back prior to DC. mother very upset because they were held back on last visit
--- NOTE | 2018-06-13 21:00 | NUR ---
NURSE NOTES: Pt has temperature of 101.8F, will administer Tylenol 650mg PO per PRN orders and re-check temperature. Will continue to monitor patient.
--- NOTE | 2018-06-13 21:01 | Consultation ---
DATE OF CONSULTATION: 06/13/2018 CONSULTING PHYSICIAN: Michael Grande M.D. CHIEF COMPLAINT: Nausea, vomiting, and diarrhea. HISTORY OF PRESENT ILLNESS: This is a 37-year-old male, known to me from prior admission with history of HIV with AIDS, CD4 count of 64 on last admission. He came to the hospital with complaint of nausea, vomiting, weakness, and fatigue. The patient had numerous medical problems but after noticed he states stool for C. diff came back positive in this admission. PAST MEDICAL HISTORY: 1. HIV, AIDS. 2. Low CD4 count of 64. 3. History of Castleman syndrome. 4. Pancreatitis. 5. Kaposi sarcoma, under treatment. 6. Hepatitis. ALLERGIES: No known allergy. MEDICATIONS: Please see medication reconciliation list. SOCIAL HISTORY: The patient denies any tobacco, alcohol, or drug abuse. FAMILY HISTORY: Noncontributory. REVIEW OF SYSTEMS: A 10-point review of systems was performed and was positive for nausea, vomiting, diarrhea, fatigue, weight loss. PHYSICAL EXAMINATION: VITAL SIGNS: Temperature is 99.5, pulse is 125, respirations 17, blood pressure is 140/81. HEENT: Normocephalic and atraumatic. Mild pale conjunctivae. NECK: Supple. No evidence of lymphadenopathy. CARDIOVASCULAR: Tachy, regular rate. Plus S1, S2. LUNGS: Clear to auscultation bilaterally. ABDOMEN: Soft. Bowel sounds are hypoactive. No rebound. No guarding. No peritoneal sign. EXTREMITIES: No cyanosis, no clubbing, no edema. LABORATORY DATA: White count 6.3, hemoglobin 8.2, and platelet count is 66,000. Chem-7, sodium 131, potassium 4.1, BUN is 17, and creatinine is 1.2. ASSESSMENT AND PLAN: A 37-year-old male with HIV/AIDS, complicated with Kaposi sarcoma, Castleman syndrome, now with C. diff colitis. Plan to treat C. diff with p.o. vanco. We will add Marinol for appetite stimulant. The patient is to be seen by ID for management of HIV and AIDS. The patient is anemic, but this seems to be stable, had hemoglobin of 7 on prior admissions, no evidence of any obvious GI bleeding. Given active C. diff, we are going to hold off doing colonoscopy at this time. Michael Grande M.D. DR: CARLTON JOB#: [id number] CC:
--- NOTE | 2018-06-13 21:03 | NUR ---
HAND-OFF: Report given to Nimo JOSHUA.
--- NOTE | 2018-06-13 21:15 | Consultation ---
DATE OF CONSULTATION: 06/13/2018 CARDIOLOGY CONSULTATION CONSULTING PHYSICIAN: Toney Howe M.D. REFERRING PHYSICIAN: Alberto Gtz M.D. REASON FOR CONSULTATION: Tachycardia. HISTORY OF PRESENT ILLNESS: The patient is a 37-year-old gentleman with history of HIV and AIDS with a CD4 count of 64 in April 2018, complains of sarcoma and Castleman disease, status post chemotherapy in June 2017 as well as history of pancreatitis in 2018 and chronic hepatitis B and C, presents to the emergency room with generalized weakness and body ache and dyspnea on exertion. The patient also had multiple episodes of vomiting. On previous admission, the patient was treated for recurrence of Castleman disease and there was time for excisional biopsy and biopsy, but the patient refused. The patient was admitted and was tachycardic with heart rate of 135. The patient also was tachycardia with heart rate of 130 to 140s and sinus tachycardia. The patient's last admission was 05/12/2018 to 05/22/2018 fever and sepsis and nausea, vomiting. REVIEW OF SYSTEMS: Review of systems was negative other than what is mentioned in the history of present illness. PAST MEDICAL HISTORY: As mentioned above. MEDICATIONS: Per reconciliation. PHYSICAL EXAMINATION: VITAL SIGNS: Show blood pressure of 115/81, pulse 130, respirations 18, temperature is 99.5, T-max is 100.9. HEAD AND NECK: Showed no JVD. LUNGS: Decreased breath sounds. CARDIOVASCULAR: Shows tachycardic, S1, S2 with no gallop. ABDOMEN: Soft. EXTREMITIES: Chronic skin changes and edema. LABORATORY AND DIAGNOSTIC DATA: His EKG shows sinus tachycardia at a rate of 140. Laboratories show white count of 8.7, hemoglobin 8.2, hematocrit 26, and platelet count is 66,000. Sodium 131, potassium 4.1, BUN of 17, creatinine 1.2, and glucose of 97. Troponin is negative. ProBNP is 350. ASSESSMENT AND PLAN: 1. Sinus tachycardia, due to likely sepsis and pain. His first troponin is negative. EKG showed no acute ischemic changes. There is no evidence of atrial fibrillation or supraventricular tachycardia. We will get an echocardiogram for further evaluation and management. 2. History of hypertension. Hold off on antihypertensive agents. 3. HIV on Truvada . 4. Kaposi sarcoma. Further evaluation by ID. 5. History of pancreatitis and hepatitis B and C positive. Thank you very much, Dr. Gtz, for allowing me to participate in the care of this patient. Please do not hesitate to contact me if you have any questions regarding my evaluation. Toney Howe M.D. DR: KARMEN JOB#: [id number] CC:
--- NOTE | 2018-06-13 21:45 | NUR ---
NURSE NOTES: Pt had x1 emesis, colored yellow and pink most likely from food that pt ate earlier. About 300cc out. Zofran administered per PRN orders.
--- NOTE | 2018-06-13 22:15 | NUR ---
NURSE NOTES: Pt reports no more nausea and has no further episodes of emesis after zofran administration. Pt is resting comfortably in bed. Will continue to monitor.
[2018-06-14] VITALS: BP 112/59
[2018-06-14] MEDS: Morphine Sulfate 2mg/ml Inj(IV/IM USE ONLY) IVP PRN ×3 (02:33→15:08)
[2018-06-14 03:59] VITALS: BP 111/56
[2018-06-14 07:17] LABS: HEMATOCRIT 22.1 % (42.0-52.0); HEMOGLOBIN 7.2 G/DL (14.2-18.0); MEAN CORPUSCULAR VOLUME 79 FL (80-99); PLATELET COUNT 39 K/UL (150-450); RED BLOOD COUNT 2.79 M/UL (4.70-6.10); WHITE BLOOD COUNT 5.1 K/UL (4.8-10.8)
[2018-06-14 07:23] LABS: ANION GAP 5 mmol/L (5-15); BLOOD UREA NITROGEN 12 mg/dL (7-18); CALCIUM 6.9 MG/DL (8.5-10.1); CARBON DIOXIDE 24 MMOL/L (21-32); CHLORIDE 100 MMOL/L (98-107); CREATININE 1.1 MG/DL (0.55-1.30); POTASSIUM 3.5 MMOL/L (3.5-5.1); SODIUM 129 MMOL/L (136-145)
--- NOTE | 2018-06-14 07:30 | NUR ---
NURSE NOTES: I received the patient awake and resting in bed. Patient alert and oriented x4. Patient does not display any signs of distress or SOB. Bed in the lowest position and call light within reach. I will continue to monitor the patient and implement care.
--- NOTE | 2018-06-14 07:43 | NUR ---
HAND-OFF: Report given to Fermin Cooper RN. Pt is sitting up at bedside in stable condition. No acute distress noted. Endorsed plan of care.
[2018-06-14 08:00] VITALS: BP 113/72
[2018-06-14] MEDS: D5 1/2NS 1,000 ML IV SCH ×2 (08:00→12:52)
--- NOTE | 2018-06-14 08:12 | General Progress Note ---
Assessment/Plan Problem List: (1) Anemia ICD Codes: D64.9 - Anemia, unspecified SNOMED: 911118704 (2) C. 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 SNOMED: 50247887 Assessment/Plan: on marinol with good response on po vanco fu ID fu H&H transfuse if hgb below 7 Subjective ROS Limited/Unobtainable: Yes Allergies: Coded Allergies: No Known Allergies (Unverified , 10/21/17) Objective Last 24 Hour Vital Signs Date Time Temp Pulse Resp B/P (MAP) Pulse Ox O2 Delivery O2 Flow Rate FiO2 06/14/18 08:00 99.1 139 20 113/72 (86) 99 06/14/18 04:00 134 06/14/18 03:59 100.2 136 24 111/56 (74) 99 06/14/18 03:03 100.2 06/14/18 00:00 143 06/14/18 00:00 101.8 143 20 112/59 (76) 99 06/13/18 21:00 Room Air 06/13/18 20:00 101.8 140 20 116/63 (80) 98 06/13/18 20:00 138 06/13/18 16:00 100.1 135 20 103/67 (79) 97 06/13/18 16:00 151 06/13/18 12:00 100.4 134 20 113/67 (82) 98 06/13/18 12:00 137 06/13/18 09:00 Room Air Intake and Output 06/13/18 06/14/18 19:00 07:00 Intake Total 795 ml 650 ml Output Total 300 ml 400 ml Balance 495 ml 250 ml Intake Oral 720 ml IV Total 75 ml 650 ml Output Urine Total 300 ml 400 ml # Bowel Movements 2 1 Laboratory Tests 06/14/18 05:55: White Blood Count 5.1, Red Blood Count 2.79L, Hemoglobin 7.2L, Hematocrit 22.1L , Mean Corpuscular Volume 79L, Mean Corpuscular Hemoglobin 25.7L, Mean Corpuscular Hemoglobin Concent 32.4, Red Cell Distribution Width 21.0H, Platelet Count 39L, Mean Platelet Volume 5.6L, Neutrophils (%) (Auto) , Lymphocytes (%) (Auto) , Monocytes (%) (Auto) , Eosinophils (%) (Auto) , Basophils (%) (Auto) , Neutrophils % (Manual) [Pending], Lymphocytes % (Manual) [Pending], Platelet Estimate [Pending], Platelet Morphology [Pending], Sodium Level 129L, Potassium Level 3.5, Chloride Level 100, Carbon Dioxide Level 24, Anion Gap 5, Blood Urea Nitrogen 12, Creatinine 1.1, Estimat Glomerular Filtration Rate > 60, Glucose Level 107H, Calcium Level 6.9L, Troponin I 0.000, Pro-B-Type Natriuretic Peptide 415H, Thyroid Stimulating Hormone (TSH) 2.654 Height (Feet): 6 Height (Inches): 0.00 Weight (Pounds): 125 General Appearance: alert EENT: normal ENT inspection Neck: supple Cardiovascular: normal rate Respiratory/Chest: decreased breath sounds Abdomen: normal bowel sounds, non tender, soft Extremities: non-tender Michael Grande MD Jun 14, 2018 08:12
[2018-06-14] MEDS ORDERED: Dolutegravir Sodium 50mg tab ORAL SCH (09:00)
--- NOTE | 2018-06-14 09:00 | NUR ---
NURSE NOTES: Made Dr. Grande aware of patient's hemoglobin level when he was rounding this morning. I did not receive any new orders.
[2018-06-14] MEDS: Vancomycin oral 125mg/2.5ml ORAL SCH ×4 (09:21→21:44)
[2018-06-14] MEDS: Dronabinol 2.5mg Cap ORAL SCH ×2 (09:22→17:28)
--- NOTE | 2018-06-14 10:02 | Consultation ---
History of Present Illness General Chief Complaint: Pain Present Illness Allergies: Coded Allergies: No Known Allergies (Unverified , 10/21/17) Medication History Scheduled Azithromycin* (Zithromax*), 250 MG ORAL Q24H Cholecalciferol (Vitamin D3)* (Vitamin D*), 1,000 UNIT ORAL DAILY, (Reported) Dolutegravir Sodium (Tivicay), 50 MG ORAL DAILY, (Reported) Dolutegravir Sodium (Tivicay), 50 MG ORAL DAILY, (Reported) Emtricitabine/Tenofovir (Truvada 200 mg-300 mg Tablet), 1 TAB ORAL DAILY, ( Reported) Emtricitabine/Tenofovir 200-300MG* (Truvada 200-300MG*), 1 TAB ORAL DAILY, ( Reported) Metoprolol Tartrate* (Metoprolol Tartrate*), 50 MG ORAL Q12HR Mirtazapine* (Mirtazapine*), 15 MG ORAL BEDTIME No Known Medications* (NKM - No Known Medications*), 0 ., (Reported) Trimethoprim/Sulfamethoxazole (Bactrim Ds Tablet), 1 TAB ORAL DAILY Scheduled PRN Diphenoxylate Hcl/Atropine (Lomotil Tablet), 2.5 MG ORAL Q4H PRN Patient History Healthcare decision maker Resuscitation status Full Code Advanced Directive on File Physical Exam Last 24 Hour Vital Signs Date Time Temp Pulse Resp B/P (MAP) Pulse Ox O2 Delivery O2 Flow Rate FiO2 06/14/18 08:00 99.1 139 20 113/72 (86) 99 06/14/18 07:50 133 06/14/18 04:00 134 06/14/18 03:59 100.2 136 24 111/56 (74) 99 06/14/18 03:03 100.2 06/14/18 00:00 143 06/14/18 00:00 101.8 143 20 112/59 (76) 99 06/13/18 21:00 Room Air 06/13/18 20:00 101.8 140 20 116/63 (80) 98 06/13/18 20:00 138 06/13/18 16:00 100.1 135 20 103/67 (79) 97 06/13/18 16:00 151 06/13/18 12:00 100.4 134 20 113/67 (82) 98 06/13/18 12:00 137 Intake and Output 4/27/19 4/28/19 19:00 07:00 Intake Total 795 ml 650 ml Output Total 300 ml 400 ml Balance 495 ml 250 ml Intake Oral 720 ml IV Total 75 ml 650 ml Output Urine Total 300 ml 400 ml # Bowel Movements 2 1 Laboratory Tests Test 06/14/18 05:55 White Blood Count 5.1 K/UL (4.8-10.8) Red Blood Count 2.79 M/UL (4.70-6.10) L Hemoglobin 7.2 G/DL (14.2-18.0) L Hematocrit 22.1 % (42.0-52.0) L Mean Corpuscular Volume 79 FL (80-99) L Mean Corpuscular Hemoglobin 25.7 PG (27.0-31.0) L Mean Corpuscular Hemoglobin Concent 32.4 G/DL (32.0-36.0) Red Cell Distribution Width 21.0 % (11.6-14.8) H Platelet Count 39 K/UL (150-450) L Mean Platelet Volume 5.6 FL (6.5-10.1) L Neutrophils (%) (Auto) % (45.0-75.0) Lymphocytes (%) (Auto) % (20.0-45.0) Monocytes (%) (Auto) % (1.0-10.0) Eosinophils (%) (Auto) % (0.0-3.0) Basophils (%) (Auto) % (0.0-2.0) Differential Total Cells Counted 100 Neutrophils % (Manual) 74 % (45-75) Lymphocytes % (Manual) 17 % (20-45) L Monocytes % (Manual) 8 % (1-10) Eosinophils % (Manual) 1 % (0-3) Basophils % (Manual) 0 % (0-2) Band Neutrophils 0 % (0-8) Platelet Estimate Decreased L Platelet Morphology Normal Hypochromasia Anisocytosis 2+ Microcytosis 1+ Sodium Level 129 MMOL/L (136-145) L Potassium Level 3.5 MMOL/L (3.5-5.1) Chloride Level 100 MMOL/L (98-107) Carbon Dioxide Level 24 MMOL/L (21-32) Anion Gap 5 mmol/L (5-15) Blood Urea Nitrogen 12 mg/dL (7-18) Creatinine 1.1 MG/DL (0.55-1.30) Estimat Glomerular Filtration Rate > 60 mL/min (>60) Glucose Level 107 MG/DL (74-106) H Calcium Level 6.9 MG/DL (8.5-10.1) L Troponin I 0.000 ng/mL (0.000-0.056) Pro-B-Type Natriuretic Peptide 415 pg/mL (0-125) H Thyroid Stimulating Hormone (TSH) 2.654 uiU/mL (0.358-3.740) Height (Feet): 6 Height (Inches): 0.00 Weight (Pounds): 125 Medications Current Medications Medications (Trade) Dose Ordered Sig/Yessica Route PRN Reason Start Time Stop Time Status Last Admin Dose Admin Acetaminophen (Tylenol) 650 mg Q4H PRN ORAL fever 06/12/18 09:30 07/12/18 09:29 06/14/18 02:33 Al Hydroxide/Mg Hydroxide (Mylanta II) 30 ml Q6H PRN ORAL dyspepsia 06/12/18 09:30 07/12/18 09:29 Dextrose (Dextrose 50%) 25 ml Q30M PRN IV Hypoglycemia 06/12/18 09:30 07/12/18 09:29 Dextrose (Dextrose 50%) 50 ml Q30M PRN IV Hypoglycemia 06/12/18 09:30 07/12/18 09:29 Dextrose/Sodium Chloride 1,000 ml @ 100 mls/hr Q10H IV 06/13/18 22:00 07/13/18 21:59 06/13/18 21:50 Diphenhydramine HCl (Benadryl) 25 mg Q6H PRN ORAL Itching/Pruritis 06/12/18 09:30 07/12/18 09:29 Dronabinol (Marinol) 2.5 mg BID ORAL 06/13/18 18:00 07/13/18 17:59 06/14/18 09:22 Lorazepam (Ativan 2mg/ml 1ml) 1 mg Q4H PRN IV agitation 06/12/18 09:30 06/19/18 09:29 Metoclopramide HCl (Reglan) 10 mg Q6H PRN IVP ryan fontanaa 06/12/18 09:30 07/12/18 09:29 Mirtazapine (Remeron) 15 mg BEDTIME ORAL 06/12/18 21:00 07/12/18 20:59 06/13/18 21:44 Morphine Sulfate (Morphine Sulfate) 4 mg Q4H PRN IVP severe Pain (Pain Scale 7-10) 06/13/18 13:30 06/19/18 09:29 06/14/18 09:30 Nitroglycerin (Ntg) 0.4 mg Q5M X 3 DOSES PRN SL Prn Chest Pain 06/12/18 09:30 07/12/18 09:29 Ondansetron HCl (Zofran) 4 mg Q6H PRN IVP Nausea & Vomiting 06/12/18 09:30 07/12/18 09:29 06/13/18 21:48 Patient Own Medication (Patient's Own Med) 1 ea DAILY ORAL 06/13/18 15:30 07/13/18 15:29 06/14/18 09:22 Patient Own Medication (Patient's Own Med) 1 ea DAILY ORAL 06/13/18 15:30 07/13/18 15:29 06/14/18 09:22 Promethazine HCl (Phenergan) 25 mg Q6H PRN IM REFRACTORY N/V 06/12/18 09:30 07/12/18 09:29 Temazepam (Restoril) 15 mg HSPRN PRN ORAL Insomnia 06/12/18 09:30 06/19/18 09:29 Vancomycin HCl (Firvanq) 125 mg FOUR TIMES A DAY ORAL 06/13/18 09:00 06/20/18 08:59 06/14/18 09:21 Assessment/Plan Assessment/Plan: Hematology Consult DOS: 06/14/18 Referring physician: Dr. Alberto Gtz Reason for Consultation: Castleman's disease, PANCYTOPENIA WORSENING ID Mr. Hewitt is a 37 year old HIV/AIDS positive male who presented to the [place] ED with poor appetite, nausea and vomiting. I Saw him back in 10/2017 and reviewed that admission as well. He also had fever and chills. He was transferred from [place]. He has had no leukocytosis and is on RA. CT imaging reviewed. CXR shows Surgical clip versus artifact seen in the right axilla. Somewhat prominent interstitial markings are seen in the right lower lung. No definite acute infiltrates, effusions, or congestion otherwise. Is currently on abx. ID consulted for HIV care. He has been on tivicay and descovy - No Hx of resistance. Was on Truvada Reyetaz and Norvir before. CD4 192 and VL 09/01/17. Has been above 200 in the past. Came down with Chemo. Also has chronic Hep B, VL <15 09/01/17. Last PET 08/12/17 - show stable/not worsening lymphadenopathy. Last chemo was 07/17/17. Quantiferon negative 11/21/16. The patient presented with fever with his intial Dx of Castlemans's. CD4 count of 64, noted to have extensive lad, bx was done left axilla and heme consulted for eval HIV Hx Dx 2000 Started on meds at that time. Says he has been taking them since. Does not know VL, CD4 counts or med names Per his mother is on Tivicay, Truvada and Bactrim. PMHx HIV Castlemans's disease/Kaposi Sarcoma, last chemo one month (got about 9 months of it on and off) Blood Clot in left groin - On Enoxaparin BID at home PSHx Axillary LN Bx x 2 SocHx Cig/MJ No IVDU or EtOH FamHx Lung CA - Grandmother Allergies: No Known Allergies (Unverified , 10/21/17) Healthcare decision maker N Resuscitation status Full Code Advanced Directive on File No All Other Systems: negative except mentioned in HPI Physical Exam: Vitals: reviewed General Appearance: NAD HEENT: normocephalic, atraumatic Neck: non-tender, normal alignment Respiratory/Chest: normal breath sounds bilaterally Cardiovascular/Chest: normal peripheral pulses, normal rate Abdomen: normal bowel sounds, soft, nontender Extremities: normal range of motion Last 24 Hour Vital Signs Date Time Temp Pulse Resp B/P (MAP) Pulse Ox O2 Delivery O2 Flow Rate FiO2 06/14/18 08:00 99.1 139 20 113/72 (86) 99 06/14/18 07:50 133 06/14/18 04:00 134 06/14/18 03:59 100.2 136 24 111/56 (74) 99 06/14/18 03:03 100.2 06/14/18 00:00 143 06/14/18 00:00 101.8 143 20 112/59 (76) 99 06/13/18 21:00 Room Air 06/13/18 20:00 101.8 140 20 116/63 (80) 98 06/13/18 20:00 138 06/13/18 16:00 100.1 135 20 103/67 (79) 97 06/13/18 16:00 151 06/13/18 12:00 100.4 134 20 113/67 (82) 98 06/13/18 12:00 137 Current Medications Medications (Trade) Dose Ordered Sig/Yessica Route PRN Reason Start Time Stop Time Status Last Admin Dose Admin Acetaminophen (Tylenol) 650 mg Q4H PRN ORAL fever 06/12/18 09:30 07/12/18 09:29 06/14/18 02:33 Al Hydroxide/Mg Hydroxide (Mylanta II) 30 ml Q6H PRN ORAL dyspepsia 06/12/18 09:30 07/12/18 09:29 Dextrose (Dextrose 50%) 25 ml Q30M PRN IV Hypoglycemia 06/12/18 09:30 07/12/18 09:29 Dextrose (Dextrose 50%) 50 ml Q30M PRN IV Hypoglycemia 06/12/18 09:30 07/12/18 09:29 Dextrose/Sodium Chloride 1,000 ml @ 100 mls/hr Q10H IV 06/13/18 22:00 07/13/18 21:59 06/13/18 21:50 Diphenhydramine HCl (Benadryl) 25 mg Q6H PRN ORAL Itching/Pruritis 06/12/18 09:30 07/12/18 09:29 Dronabinol (Marinol) 2.5 mg BID ORAL 06/13/18 18:00 07/13/18 17:59 06/14/18 09:22 Lorazepam (Ativan 2mg/ml 1ml) 1 mg Q4H PRN IV agitation 06/12/18 09:30 06/19/18 09:29 Metoclopramide HCl (Reglan) 10 mg Q6H PRN IVP servere nauasea 06/12/18 09:30 07/12/18 09:29 Mirtazapine (Remeron) 15 mg BEDTIME ORAL 06/12/18 21:00 07/12/18 20:59 06/13/18 21:44 Morphine Sulfate (Morphine Sulfate) 4 mg Q4H PRN IVP severe Pain (Pain Scale 7-10) 06/13/18 13:30 06/19/18 09:29 06/14/18 09:30 Nitroglycerin (Ntg) 0.4 mg Q5M X 3 DOSES PRN SL Prn Chest Pain 06/12/18 09:30 07/12/18 09:29 Ondansetron HCl (Zofran) 4 mg Q6H PRN IVP Nausea & Vomiting 06/12/18 09:30 07/12/18 09:29 06/13/18 21:48 Patient Own Medication (Patient's Own Med) 1 ea DAILY ORAL 06/13/18 15:30 07/13/18 15:29 06/14/18 09:22 Patient Own Medication (Patient's Own Med) 1 ea DAILY ORAL 06/13/18 15:30 07/13/18 15:29 06/14/18 09:22 Promethazine HCl (Phenergan) 25 mg Q6H PRN IM REFRACTORY N/V 06/12/18 09:30 07/12/18 09:29 Temazepam (Restoril) 15 mg HSPRN PRN ORAL Insomnia 06/12/18 09:30 06/19/18 09:29 Vancomycin HCl (Firvanq) 125 mg FOUR TIMES A DAY ORAL 06/13/18 09:00 06/20/18 08:59 06/14/18 09:21 Laboratory Tests Test 06/14/18 05:55 White Blood Count 5.1 K/UL (4.8-10.8) Red Blood Count 2.79 M/UL (4.70-6.10) L Hemoglobin 7.2 G/DL (14.2-18.0) L Hematocrit 22.1 % (42.0-52.0) L Mean Corpuscular Volume 79 FL (80-99) L Mean Corpuscular Hemoglobin 25.7 PG (27.0-31.0) L Mean Corpuscular Hemoglobin Concent 32.4 G/DL (32.0-36.0) Red Cell Distribution Width 21.0 % (11.6-14.8) H Platelet Count 39 K/UL (150-450) L Mean Platelet Volume 5.6 FL (6.5-10.1) L Neutrophils (%) (Auto) % (45.0-75.0) Lymphocytes (%) (Auto) % (20.0-45.0) Monocytes (%) (Auto) % (1.0-10.0) Eosinophils (%) (Auto) % (0.0-3.0) Basophils (%) (Auto) % (0.0-2.0) Differential Total Cells Counted 100 Neutrophils % (Manual) 74 % (45-75) Lymphocytes % (Manual) 17 % (20-45) L Monocytes % (Manual) 8 % (1-10) Eosinophils % (Manual) 1 % (0-3) Basophils % (Manual) 0 % (0-2) Band Neutrophils 0 % (0-8) Platelet Estimate Decreased L Platelet Morphology Normal Hypochromasia Anisocytosis 2+ Microcytosis 1+ Sodium Level 129 MMOL/L (136-145) L Potassium Level 3.5 MMOL/L (3.5-5.1) Chloride Level 100 MMOL/L (98-107) Carbon Dioxide Level 24 MMOL/L (21-32) Anion Gap 5 mmol/L (5-15) Blood Urea Nitrogen 12 mg/dL (7-18) Creatinine 1.1 MG/DL (0.55-1.30) Estimat Glomerular Filtration Rate > 60 mL/min (>60) Glucose Level 107 MG/DL (74-106) H Calcium Level 6.9 MG/DL (8.5-10.1) L Troponin I 0.000 ng/mL (0.000-0.056) Pro-B-Type Natriuretic Peptide 415 pg/mL (0-125) H Thyroid Stimulating Hormone (TSH) 2.654 uiU/mL (0.358-3.740) Assessment and Recs # Pancytopenia, worsening, with severe diffuse lymphadenopathy worsened since 2018, in the setting Castlemans's disease/KS - outpatinent chemo has been received as recently 09/2017 or so. Hx of HIV, CD4 count very low. He has a very poor memory, says was treated at [facility] S/P Chemo ending 07/17/17. Last PET 08/12 - show stable/not worsening lymphadenopathy. Has very extensive disease on ct scan lympahdenopathy noted throughout, final results of axilla lymphadenopathy biopsy, FINAL results from prior admission are nondiagnostic --> I talked with him regarding getting potentially another biopsy (bulky lymph node v bone marrow biopsy) he has thus far refused --> recommend to obtain VEGF, IL-6 these labs ordered but do take several days/ weeks to come back --> inflammatory makers are elevated which can be c/w flare but are fairly non- specific --> imaging is ordered as well --> outpatient f/u as well for futher therapy prn --> treat underlying HIV as per ID service # Anemia of chronic disaese -- workup has been reviewed --> esr elevated, as is crp --> transfuse if hgb <7 # DVT hx that was diagnosed at outpatient hospital --> inpatient venous duplex is negative for thromboembolism, therefore DOES not require anticoagulants --> have discussed this with patients and patient's mother # Sepsis - PNA, KS, other infection, TB? --> on HIV meds, abx as needed # HIV - On Tivicay and Truvada and Bactrim, CD4 count 64 --> VL pending, CD4 count ordered<100 --> IL-6 is 51 # REENA cr 1.2-->1.1 The timing of this note does not necessarily reflect the time of the patient was seen. Greatly appreciate consultation. Jean Bingham MD Jun 14, 2018 10:02
[2018-06-14 12:00] VITALS: BP 100/62
--- NOTE | 2018-06-14 12:31 | Cardiac Electrophysiology PN ---
Assessment/Plan Assessment/Plan 1. Sinus tachycardia, due to likely sepsis and pain. Ruled out for IA. EKG showed no acute ischemic changes. There is no evidence of atrial fibrillation or supraventricular tachycardia. Echo EF 75%. 2. History of hypertension. Hold off on antihypertensive agents. 3. 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 5. History of pancreatitis and hepatitis B and C positive. 6. Severe anemia. Hb 9 to 7.2 DW RN Subjective Subjective No CP or SOB. In sinus tach 100-120. Still on iv fluid 100 cc/hr Objective Last 24 Hour Vital Signs Date Time Temp Pulse Resp B/P (MAP) Pulse Ox O2 Delivery O2 Flow Rate FiO2 06/14/18 12:00 100.1 121 20 100/62 (75) 98 06/14/18 10:00 99.1 06/14/18 09:00 Room Air 06/14/18 08:00 99.1 139 20 113/72 (86) 99 06/14/18 07:50 133 06/14/18 04:00 134 06/14/18 03:59 100.2 136 24 111/56 (74) 99 06/14/18 03:03 100.2 06/14/18 00:00 143 06/14/18 00:00 101.8 143 20 112/59 (76) 99 06/13/18 21:00 Room Air 06/13/18 20:00 101.8 140 20 116/63 (80) 98 06/13/18 20:00 138 06/13/18 16:00 100.1 135 20 103/67 (79) 97 06/13/18 16:00 151 Intake and Output 06/13/18 06/14/18 19:00 07:00 Intake Total 795 ml 650 ml Output Total 300 ml 400 ml Balance 495 ml 250 ml Intake Oral 720 ml IV Total 75 ml 650 ml Output Urine Total 300 ml 400 ml # Bowel Movements 2 1 Laboratory Tests Test 06/14/18 05:55 White Blood Count 5.1 K/UL (4.8-10.8) Red Blood Count 2.79 M/UL (4.70-6.10) L Hemoglobin 7.2 G/DL (14.2-18.0) L Hematocrit 22.1 % (42.0-52.0) L Mean Corpuscular Volume 79 FL (80-99) L Mean Corpuscular Hemoglobin 25.7 PG (27.0-31.0) L Mean Corpuscular Hemoglobin Concent 32.4 G/DL (32.0-36.0) Red Cell Distribution Width 21.0 % (11.6-14.8) H Platelet Count 39 K/UL (150-450) L Mean Platelet Volume 5.6 FL (6.5-10.1) L Neutrophils (%) (Auto) % (45.0-75.0) Lymphocytes (%) (Auto) % (20.0-45.0) Monocytes (%) (Auto) % (1.0-10.0) Eosinophils (%) (Auto) % (0.0-3.0) Basophils (%) (Auto) % (0.0-2.0) Differential Total Cells Counted 100 Neutrophils % (Manual) 74 % (45-75) Lymphocytes % (Manual) 17 % (20-45) L Monocytes % (Manual) 8 % (1-10) Eosinophils % (Manual) 1 % (0-3) Basophils % (Manual) 0 % (0-2) Band Neutrophils 0 % (0-8) Platelet Estimate Decreased L Platelet Morphology Normal Hypochromasia Anisocytosis 2+ Microcytosis 1+ Sodium Level 129 MMOL/L (136-145) L Potassium Level 3.5 MMOL/L (3.5-5.1) Chloride Level 100 MMOL/L (98-107) Carbon Dioxide Level 24 MMOL/L (21-32) Anion Gap 5 mmol/L (5-15) Blood Urea Nitrogen 12 mg/dL (7-18) Creatinine 1.1 MG/DL (0.55-1.30) Estimat Glomerular Filtration Rate > 60 mL/min (>60) Glucose Level 107 MG/DL (74-106) H Calcium Level 6.9 MG/DL (8.5-10.1) L Troponin I 0.000 ng/mL (0.000-0.056) Pro-B-Type Natriuretic Peptide 415 pg/mL (0-125) H Thyroid Stimulating Hormone (TSH) 2.654 uiU/mL (0.358-3.740) Microbiology Date/Time Source Procedure Growth Status 06/12/18 07:50 Blood Blood Culture - Preliminary NO GROWTH AFTER 24 HOURS Resulted 06/12/18 07:35 Blood Blood Culture - Preliminary NO GROWTH AFTER 24 HOURS Resulted 06/12/18 19:15 Nasopharynx - Final Complete 06/12/18 19:15 Nasopharynx - Final Complete 06/12/18 21:45 Stool Clostridium difficile Toxin Assay - Final Complete Objective HEAD AND NECK: no JVD. LUNGS: Decreased breath sounds. CARDIOVASCULAR: Tachycardic, S1, S2 with no gallop. ABDOMEN: Soft. EXTREMITIES: Chronic skin changes and edema. Toney Howe MD Jun 14, 2018 12:31
--- NOTE | 2018-06-14 12:40 | NUR ---
NURSE NOTES: Message left for Dr. Padron about patient's hemoglobin level.
--- NOTE | 2018-06-14 14:24 | Pulmonology Progress Note ---
Assessment/Plan Problems: (1) Anemia (2) Severe sepsis (3) HIV disease (4) ATN (acute tubular necrosis) (5) Kaposi disease (6) Cyclic vomiting syndrome (7) Protein-calorie malnutrition, severe (8) Lymphadenopathy Assessment/Plan dc iv fluids watch Na, iv abx prbc when hem less than 7 check cultures resume HIV meds f/u ID recommendations Subjective ROS Limited/Unobtainable: No Constitutional: Reports: no symptoms HEENT: Repors: no symptoms Allergies: Coded Allergies: No Known Allergies (Unverified , 10/21/17) Objective Last 24 Hour Vital Signs Date Time Temp Pulse Resp B/P (MAP) Pulse Ox O2 Delivery O2 Flow Rate FiO2 06/14/18 12:51 99.0 06/14/18 12:00 100.1 121 20 100/62 (75) 98 06/14/18 11:38 121 06/14/18 10:00 99.1 06/14/18 09:00 Room Air 06/14/18 08:00 99.1 139 20 113/72 (86) 99 06/14/18 07:50 133 06/14/18 04:00 134 06/14/18 03:59 100.2 136 24 111/56 (74) 99 06/14/18 00:00 143 06/14/18 00:00 101.8 143 20 112/59 (76) 99 06/13/18 21:00 Room Air 06/13/18 20:00 101.8 140 20 116/63 (80) 98 06/13/18 20:00 138 06/13/18 16:00 100.1 135 20 103/67 (79) 97 06/13/18 16:00 151 Intake and Output 06/13/18 06/14/18 19:00 07:00 Intake Total 795 ml 650 ml Output Total 300 ml 400 ml Balance 495 ml 250 ml Intake Oral 720 ml IV Total 75 ml 650 ml Output Urine Total 300 ml 400 ml # Bowel Movements 2 1 Objective General Appearance: WD/WN HEENT: normocephalic, atraumatic Respiratory/Chest: chest wall non-tender, crackles/rales Cardiovascular: normal peripheral pulses, no arrhythmia Abdomen: normal bowel sounds, soft, non tender Genitourinary: normal external genitalia Extremities: no clubbing Skin: no rash, no ulcers 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 Microbiology Date/Time Source Procedure Growth Status 06/12/18 07:50 Blood Blood Culture - Preliminary NO GROWTH AFTER 24 HOURS Resulted 06/12/18 07:35 Blood Blood Culture - Preliminary NO GROWTH AFTER 24 HOURS Resulted 06/12/18 19:15 Nasopharynx - Final Complete 06/12/18 19:15 Nasopharynx - Final Complete 06/12/18 21:45 Stool Clostridium difficile Toxin Assay - Final Complete Laboratory Tests 06/14/18 05:55: White Blood Count 5.1, Red Blood Count 2.79L, Hemoglobin 7.2L, Hematocrit 22.1L , Mean Corpuscular Volume 79L, Mean Corpuscular Hemoglobin 25.7L, Mean Corpuscular Hemoglobin Concent 32.4, Red Cell Distribution Width 21.0H, Platelet Count 39L, Mean Platelet Volume 5.6L, Neutrophils (%) (Auto) , Lymphocytes (%) (Auto) , Monocytes (%) (Auto) , Eosinophils (%) (Auto) , Basophils (%) (Auto) , Differential Total Cells Counted 100, Neutrophils % ( Manual) 74, Lymphocytes % (Manual) 17L, Monocytes % (Manual) 8, Eosinophils % ( Manual) 1, Basophils % (Manual) 0, Band Neutrophils 0, Platelet Estimate DecreasedL, Platelet Morphology Normal, Hypochromasia , Anisocytosis 2+, Microcytosis 1+, Sodium Level 129L, Potassium Level 3.5, Chloride Level 100, Carbon Dioxide Level 24, Anion Gap 5, Blood Urea Nitrogen 12, Creatinine 1.1, Estimat Glomerular Filtration Rate > 60, Glucose Level 107H, Calcium Level 6.9L , Troponin I 0.000, Pro-B-Type Natriuretic Peptide 415H, Thyroid Stimulating Hormone (TSH) 2.654 Current Medications Medications (Trade) Dose Ordered Sig/Yessica Route PRN Reason Start Time Stop Time Status Last Admin Dose Admin Acetaminophen (Tylenol) 650 mg Q4H PRN ORAL fever 06/12/18 09:30 07/12/18 09:29 06/14/18 12:21 Al Hydroxide/Mg Hydroxide (Mylanta II) 30 ml Q6H PRN ORAL dyspepsia 06/12/18 09:30 07/12/18 09:29 Dextrose (Dextrose 50%) 25 ml Q30M PRN IV Hypoglycemia 06/12/18 09:30 07/12/18 09:29 Dextrose (Dextrose 50%) 50 ml Q30M PRN IV Hypoglycemia 06/12/18 09:30 07/12/18 09:29 Dextrose/Sodium Chloride 1,000 ml @ 100 mls/hr Q10H IV 06/13/18 22:00 07/13/18 21:59 06/14/18 12:52 Diphenhydramine HCl (Benadryl) 25 mg Q6H PRN ORAL Itching/Pruritis 06/12/18 09:30 07/12/18 09:29 Dronabinol (Marinol) 2.5 mg BID ORAL 06/13/18 18:00 07/13/18 17:59 06/14/18 09:22 Lorazepam (Ativan 2mg/ml 1ml) 1 mg Q4H PRN IV agitation 06/12/18 09:30 06/19/18 09:29 Metoclopramide HCl (Reglan) 10 mg Q6H PRN IVP servere nauasea 06/12/18 09:30 07/12/18 09:29 Mirtazapine (Remeron) 15 mg BEDTIME ORAL 06/12/18 21:00 07/12/18 20:59 06/13/18 21:44 Morphine Sulfate (Morphine Sulfate) 4 mg Q4H PRN IVP severe Pain (Pain Scale 7-10) 06/13/18 13:30 06/19/18 09:29 06/14/18 09:30 Nitroglycerin (Ntg) 0.4 mg Q5M X 3 DOSES PRN SL Prn Chest Pain 06/12/18 09:30 07/12/18 09:29 Ondansetron HCl (Zofran) 4 mg Q6H PRN IVP Nausea & Vomiting 06/12/18 09:30 07/12/18 09:29 06/13/18 21:48 Patient Own Medication (Patient's Own Med) 1 ea DAILY ORAL 06/13/18 15:30 07/13/18 15:29 06/14/18 09:22 Patient Own Medication (Patient's Own Med) 1 ea DAILY ORAL 06/13/18 15:30 07/13/18 15:29 06/14/18 09:22 Promethazine HCl (Phenergan) 25 mg Q6H PRN IM REFRACTORY N/V 06/12/18 09:30 07/12/18 09:29 Temazepam (Restoril) 15 mg HSPRN PRN ORAL Insomnia 06/12/18 09:30 06/19/18 09:29 Vancomycin HCl (Firvanq) 125 mg FOUR TIMES A DAY ORAL 06/13/18 09:00 06/20/18 08:59 06/14/18 12:52 Ya Hester MD Jun 14, 2018 14:24
--- NOTE | 2018-06-14 15:56 | Internal Med Progress Note ---
Subjective Date of Service: Jun 14, 2018 Physician Name Adam Padron Attending Physician Alberto Gtz MD Current Medications Medications (Trade) Dose Ordered Sig/Yessica Route PRN Reason Start Time Stop Time Status Last Admin Dose Admin Acetaminophen (Tylenol) 650 mg Q4H PRN ORAL fever 06/12/18 09:30 07/12/18 09:29 06/14/18 12:21 Al Hydroxide/Mg Hydroxide (Mylanta II) 30 ml Q6H PRN ORAL dyspepsia 06/12/18 09:30 07/12/18 09:29 Dextrose (Dextrose 50%) 25 ml Q30M PRN IV Hypoglycemia 06/12/18 09:30 07/12/18 09:29 Dextrose (Dextrose 50%) 50 ml Q30M PRN IV Hypoglycemia 06/12/18 09:30 07/12/18 09:29 Diphenhydramine HCl (Benadryl) 25 mg Q6H PRN ORAL Itching/Pruritis 06/12/18 09:30 07/12/18 09:29 Dronabinol (Marinol) 2.5 mg BID ORAL 06/13/18 18:00 07/13/18 17:59 06/14/18 09:22 Lorazepam (Ativan 2mg/ml 1ml) 1 mg Q4H PRN IV agitation 06/12/18 09:30 06/19/18 09:29 Metoclopramide HCl (Reglan) 10 mg Q6H PRN IVP servere nauasea 06/12/18 09:30 07/12/18 09:29 Mirtazapine (Remeron) 15 mg BEDTIME ORAL 06/12/18 21:00 07/12/18 20:59 06/13/18 21:44 Morphine Sulfate (Morphine Sulfate) 4 mg Q4H PRN IVP severe Pain (Pain Scale 7-10) 06/13/18 13:30 06/19/18 09:29 06/14/18 15:08 Nitroglycerin (Ntg) 0.4 mg Q5M X 3 DOSES PRN SL Prn Chest Pain 06/12/18 09:30 07/12/18 09:29 Ondansetron HCl (Zofran) 4 mg Q6H PRN IVP Nausea & Vomiting 06/12/18 09:30 07/12/18 09:29 06/13/18 21:48 Patient Own Medication (Patient's Own Med) 1 ea DAILY ORAL 06/13/18 15:30 07/13/18 15:29 06/14/18 09:22 Patient Own Medication (Patient's Own Med) 1 ea DAILY ORAL 06/13/18 15:30 07/13/18 15:29 06/14/18 09:22 Promethazine HCl (Phenergan) 25 mg Q6H PRN IM REFRACTORY N/V 06/12/18 09:30 07/12/18 09:29 Temazepam (Restoril) 15 mg HSPRN PRN ORAL Insomnia 06/12/18 09:30 06/19/18 09:29 Vancomycin HCl (Firvanq) 125 mg FOUR TIMES A DAY ORAL 06/13/18 09:00 06/20/18 08:59 06/14/18 12:52 Allergies: Coded Allergies: No Known Allergies (Unverified , 10/21/17) ROS Limited/Unobtainable: No Constitutional: Reports: no symptoms HEENT: Reports: no symptoms Cardiovascular: Reports: no symptoms Respiratory: Reports: no symptoms Gastrointestinal/Abdominal: Reports: no symptoms Genitourinary: Reports: no symptoms Neurologic/Psychiatric: Reports: no symptoms Subjective 37 YO M with history of HIV, kaposi's Sarcoma and Castleman Dis admitted with nausea, vomiting and diarrhea. Now C. Diff. Cover for Int Med-Dr Gtz. Low grade fever overnight Objective Last Vital Signs Date Time Temp Pulse Resp B/P (MAP) Pulse Ox O2 Delivery O2 Flow Rate FiO2 06/14/18 15:38 99.0 06/14/18 12:00 121 20 100/62 (75) 98 06/14/18 09:00 Room Air Laboratory Tests Test 06/14/18 05:55 White Blood Count 5.1 K/UL (4.8-10.8) Red Blood Count 2.79 M/UL (4.70-6.10) L Hemoglobin 7.2 G/DL (14.2-18.0) L Hematocrit 22.1 % (42.0-52.0) L Mean Corpuscular Volume 79 FL (80-99) L Mean Corpuscular Hemoglobin 25.7 PG (27.0-31.0) L Mean Corpuscular Hemoglobin Concent 32.4 G/DL (32.0-36.0) Red Cell Distribution Width 21.0 % (11.6-14.8) H Platelet Count 39 K/UL (150-450) L Mean Platelet Volume 5.6 FL (6.5-10.1) L Neutrophils (%) (Auto) % (45.0-75.0) Lymphocytes (%) (Auto) % (20.0-45.0) Monocytes (%) (Auto) % (1.0-10.0) Eosinophils (%) (Auto) % (0.0-3.0) Basophils (%) (Auto) % (0.0-2.0) Differential Total Cells Counted 100 Neutrophils % (Manual) 74 % (45-75) Lymphocytes % (Manual) 17 % (20-45) L Monocytes % (Manual) 8 % (1-10) Eosinophils % (Manual) 1 % (0-3) Basophils % (Manual) 0 % (0-2) Band Neutrophils 0 % (0-8) Platelet Estimate Decreased L Platelet Morphology Normal Hypochromasia Anisocytosis 2+ Microcytosis 1+ Sodium Level 129 MMOL/L (136-145) L Potassium Level 3.5 MMOL/L (3.5-5.1) Chloride Level 100 MMOL/L (98-107) Carbon Dioxide Level 24 MMOL/L (21-32) Anion Gap 5 mmol/L (5-15) Blood Urea Nitrogen 12 mg/dL (7-18) Creatinine 1.1 MG/DL (0.55-1.30) Estimat Glomerular Filtration Rate > 60 mL/min (>60) Glucose Level 107 MG/DL (74-106) H Calcium Level 6.9 MG/DL (8.5-10.1) L Troponin I 0.000 ng/mL (0.000-0.056) Pro-B-Type Natriuretic Peptide 415 pg/mL (0-125) H Thyroid Stimulating Hormone (TSH) 2.654 uiU/mL (0.358-3.740) Microbiology Date/Time Source Procedure Growth Status 06/12/18 07:50 Blood Blood Culture - Preliminary NO GROWTH AFTER 24 HOURS Resulted 06/12/18 07:35 Blood Blood Culture - Preliminary NO GROWTH AFTER 24 HOURS Resulted 06/12/18 19:15 Nasopharynx - Final Complete 06/12/18 19:15 Nasopharynx - Final Complete 06/12/18 21:45 Stool Clostridium difficile Toxin Assay - Final Complete Intake and Output 06/13/18 06/14/18 19:00 07:00 Intake Total 795 ml 650 ml Output Total 300 ml 400 ml Balance 495 ml 250 ml Intake Oral 720 ml IV Total 75 ml 650 ml Output Urine Total 300 ml 400 ml # Bowel Movements 2 1 Objective PHYSICAL EXAMINATION: GENERAL: The patient is awake, alert, oriented, chronic ill-appearing, and cachectic. HEAD AND NECK: Pupils reactive to light. Anicteric. Has a strabismus with disconjugate gait. Neck was supple. No JVD. LUNGS: Good air entry. No wheezing or rales. HEART: Tachycardia; Reveals S1, S2. Regular rhythm. No gallops. ABDOMEN: Soft. Mildly distended. No rebound tenderness. No fluid shift. EXTREMITIES: No cyanosis, clubbing, or edema. Muscle atrophy with discoloration of the bilateral lower extremity with hyperpigmentation, and rashes of bilateral lower extremity was noted. NEUROLOGIC: FACILITIES DIRECTOR II through XII grossly intact. Motor is 5/5 in all extremities. Gait was not assessed due to the patient's status. Assessment/Plan Assessment/Plan ASSESSMENT: 1. Intractable nausea and vomiting. 2. Severe protein-calorie malnutrition. 3. Hyponatremia. 4. History of HIV/AIDS. 5. Kaposi sarcoma. 6. Castleman syndrome. 7. History of hepatitis B and C positive. 8. Anemia of chronic disease. 9. Thrombocytopenia. 10. Tachycardia 11. Clostridium difficile PLAN: 1. Admit the patient to monitored unit. 2. We will follow up with Dr. Mobley from Infectious Disease consultation and Dr. Hester from Pulmonary Critical Care. 3. Monitor laboratory. 4. IV hydration. 5. Code status is Full Code. 6. Follow up with broad-spectrum antibiotic with Zosyn. 7. Monitor culture. 8. Anti-emetic medication with Zofran. 9. Resume home medication. 10. ?dehydration due to nausea and diarrhea?-cardiology consult-Dr Howe 11. Oral vanco per Adam Krueger MD Jun 14, 2018 15:56
[2018-06-14 16:00] VITALS: BP 114/61
[2018-06-14] MEDS: NS w/KCl 20mEq 1,000 ML IV SCH (17:27)
--- NOTE | 2018-06-14 17:50 | Consultation ---
Consult Note Consult Note asked to eval for low Na chart reviewed examined data reviewed This is a 37-year-old gentleman with past medical history significant for human immunodeficiency virus/acquired immune deficiency syndrome with ? 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 The patient stated that he has been having changes in his chemotherapy regimen and had a plan for the excisional biopsy as well as bone marrow biopsy recently and has been followed up with the manufacturing plant technician/oncologist as well as an human immunodeficiency virus doctor. Shortly after initial evaluation in the emergency, the patient was admitted to the hospital with intractable nausea and vomiting, dehydration, and severe protein-calorie malnutrition. PAST MEDICAL SURGICAL HISTORY: As above. History of HIV/AIDS, history of Castleman syndrome, pancreatitis, Kaposi sarcoma, and hepatitis B and C positive. Assessment/Plan HypoNatremia , etiology ? will comment after urine studies and blood test results available Intractable nausea and vomiting. Severe protein-calorie malnutrition. History of HIV/AIDS. Kaposi sarcoma. Sepsis Anemia, PanCytopenia C diff Hep B and Hep C U Na S Os U Os S Uric acid Per orders Adam Aguiar MD Jun 14, 2018 17:49
[2018-06-14] MEDS: Lactobacillus-GG tablet ORAL SCH (18:09)
--- NOTE | 2018-06-14 19:18 | NUR ---
NURSE NOTES: Report received from Fermin Cooper RN. Pt is resting in bed in stable condition. Pt is awake, alert, and oriented x4. Pt is on room air and breathing is even and unlabored. No acute distress noted. IV site is L wrist #24g and is asymptomatic, patent, and intact and running IV fluids at rx rate. Bed is placed in lowest position with brake engaged, side rails up x3, and bed alarm on. Call light and side table placed within reach. Will continue to monitor. Sinus tachy noted on monitor - MD Howe aware.
--- NOTE | 2018-06-14 19:18 | NUR ---
HAND-OFF: Report given to Wood Rojas RN.
[2018-06-14 20:00] VITALS: BP 117/65
[2018-06-14] MEDS: Morphine Sulfate 4mg/ml Inj (IV USE ONLY) IVP PRN (21:44)
[2018-06-15] VITALS (7 sets, daily range): BP systolic 97–124; BP diastolic 55–77
[2018-06-15] MEDS: Morphine Sulfate 4mg/ml Inj (IV USE ONLY) IVP PRN ×5 (02:40→23:11)
[2018-06-15 07:09] LABS: HEMATOCRIT 19.9 % (42.0-52.0); MEAN CORPUSCULAR VOLUME 79 FL (80-99); PLATELET COUNT 39 K/UL (150-450); RED BLOOD COUNT 2.54 M/UL (4.70-6.10); RED CELL DISTRIBUTION WIDTH 21.2 % (11.6-14.8); WHITE BLOOD COUNT 4.7 K/UL (4.8-10.8)
[2018-06-15 07:16] LABS: HEMOGLOBIN 6.4 G/DL (14.2-18.0)
--- NOTE | 2018-06-15 07:25 | NUR ---
NURSE NOTES: Critical lab report from Carol from lab. Hgb - 6.4. Endorsed to Scotty Louis, day shift RN to report to MD Bingham.
[2018-06-15 07:35] LABS: AMMONIA 29 umol/L (11-32)
--- NOTE | 2018-06-15 07:38 | NUR ---
HAND-OFF: Report given to Scotty Louis RN. Pt is resting in bed in stable condition. No acute distress noted. Endorsed plan of care.
--- NOTE | 2018-06-15 07:41 | NUR ---
NURSE NOTES: Pt received from TRES Toney alert and oriented x4 with no acute s/s of distress. IV site asymptomatic and patent, currently running prescribed IV fluids. Bed in lowest position, call light and belongings within reach.
[2018-06-15 07:57] LABS: ALANINE AMINOTRANSFERASE 14 U/L (12-78); ALBUMIN 0.6 G/DL (3.4-5.0); ALBUMIN/GLOBULIN RATIO 0.2 (1.0-2.7); ALKALINE PHOSPHATASE 61 U/L (46-116); ANION GAP 4 mmol/L (5-15); ASPARTATE AMINO TRANSFERASE 28 U/L (15-37); BILIRUBIN,TOTAL 0.4 MG/DL (0.2-1.0); CALCIUM 6.3 MG/DL (8.5-10.1); CARBON DIOXIDE 24 MMOL/L (21-32); CHLORIDE 102 MMOL/L (98-107); CREATINE KINASE 8 U/L (26-308); CREATININE 1.2 MG/DL (0.55-1.30); GAMMA GLUTAMYL TRANSPEPTIDASE 22 U/L (5-85); HDL CHOLESTEROL 6 MG/DL (40-60); PHOSPHORUS 2.7 MG/DL (2.5-4.9); POTASSIUM 3.9 MMOL/L (3.5-5.1); SODIUM 130 MMOL/L (136-145); TRIGLYCERIDES 118 MG/DL (30-150)
--- NOTE | 2018-06-15 08:03 | NUR ---
NURSE NOTES: RN endorsed HGB of 6.[address] Bingham this AM who ordered that the pt get 1 unit of PRBCs. Will place and carry out orders. Will continue to monitor pt.
[2018-06-15 08:29] LABS: BLOOD UREA NITROGEN 14 mg/dL (7-18); CHOLESTEROL < 50 MG/DL (< 200)
[2018-06-15 08:55] LABS: FERRITIN 1951 NG/ML (8-388)
[2018-06-15] MEDS: Dronabinol 2.5mg Cap ORAL SCH ×3 (09:19→17:38)
[2018-06-15] MEDS: Vancomycin oral 125mg/2.5ml ORAL SCH ×4 (09:19→20:15)
[2018-06-15] MEDS: Lactobacillus-GG tablet ORAL SCH ×3 (09:19→17:38)
--- NOTE | 2018-06-15 09:46 | NUR ---
CASE MANAGEMENT:REVIEW 06/15/18 SI: SEPSIS. KAPOSI SARCOMA. ANEMIA 101.8 158 24 116/63 99% ON RA H/H-6.4/19.9 PLT-39 IS: TRANSFUSE IVF@50/HR VANCOMYCIN PO QID PROTONIX PO Q12 IV MORPHINE Q4HRS PRN LACTOBACILLUS PO TID MARINOL PO BID : TELEMETRY STATUS DCP: FROM HOME
--- NOTE | 2018-06-15 10:36 | GI Progress Note ---
Assessment/Plan Problems: (1) Protein-calorie malnutrition, severe ICD Codes: E43 - Unspecified severe protein-calorie malnutrition SNOMED: 518059552, 682313303, 761402020 (2) Cyclic vomiting syndrome ICD Codes: G43.A0 - Cyclical vomiting, not intractable SNOMED: 01735791 (3) Nausea & vomiting ICD Codes: R11.2 - Nausea with vomiting, unspecified SNOMED: 57389729 (4) Diarrhea ICD Codes: R19.7 - Diarrhea, unspecified SNOMED: 83192890 (5) Kaposi disease ICD Codes: Q82.1 - Xeroderma pigmentosum SNOMED: 63345732 (6) Anemia ICD Codes: D64.9 - Anemia, unspecified SNOMED: 120859456 (7) generalized weakness, kaposi sarcoma Status: unchanged Status Narrative Discussed with Dr. Grande Assessment/Plan on marinol with good response on po vanco fu ID fu H&H transfuse if hgb below 7 supportive care The patient was seen and examined at bedside and all new and available data was reviewed in the patients chart. I agree with the above findings, impression and plan. (Patient seen earlier today. Signature stamp does not reflect patient encounter time.). - Michael Grande MD Subjective Subjective Generalized weakness Objective Last 24 Hour Vital Signs Date Time Temp Pulse Resp B/P (MAP) Pulse Ox O2 Delivery O2 Flow Rate FiO2 06/15/18 04:00 99.9 137 20 105/62 (76) 99 06/15/18 04:00 142 06/15/18 02:07 101.7 06/15/18 01:15 101.8 158 24 116/63 (80) 06/15/18 00:00 156 06/15/18 00:00 98.4 61 20 124/77 (93) 99 06/14/18 21:00 Room Air 06/14/18 20:00 98.6 151 22 117/65 (82) 100 06/14/18 20:00 144 06/14/18 18:25 99.0 06/14/18 16:00 101.5 141 20 114/61 (78) 100 06/14/18 15:38 99.0 06/14/18 15:36 137 06/14/18 12:00 100.1 121 20 100/62 (75) 98 06/14/18 11:38 121 Intake and Output 06/14/18 06/15/18 18:59 06:59 Intake Total 480 ml Output Total 350 ml 700 ml Balance 130 ml -700 ml Intake Oral 480 ml Output Urine Total 350 ml 700 ml # Bowel Movements 1 2 Laboratory Tests Test 06/15/18 06:45 White Blood Count 4.7 K/UL (4.8-10.8) L Red Blood Count 2.54 M/UL (4.70-6.10) L Hemoglobin 6.4 G/DL (14.2-18.0) *L Hematocrit 19.9 % (42.0-52.0) L Mean Corpuscular Volume 79 FL (80-99) L Mean Corpuscular Hemoglobin 25.4 PG (27.0-31.0) L Mean Corpuscular Hemoglobin Concent 32.3 G/DL (32.0-36.0) Red Cell Distribution Width 21.2 % (11.6-14.8) H Platelet Count 39 K/UL (150-450) L Mean Platelet Volume 5.5 FL (6.5-10.1) L Neutrophils (%) (Auto) % (45.0-75.0) Lymphocytes (%) (Auto) % (20.0-45.0) Monocytes (%) (Auto) % (1.0-10.0) Eosinophils (%) (Auto) % (0.0-3.0) Basophils (%) (Auto) % (0.0-2.0) Differential Total Cells Counted 100 Neutrophils % (Manual) 78 % (45-75) H Lymphocytes % (Manual) 13 % (20-45) L Monocytes % (Manual) 8 % (1-10) Eosinophils % (Manual) 1 % (0-3) Basophils % (Manual) 0 % (0-2) Band Neutrophils 0 % (0-8) Platelet Estimate Decreased L Platelet Morphology Normal Hypochromasia 1+ Anisocytosis 2+ Microcytosis 1+ Sodium Level 130 MMOL/L (136-145) L Potassium Level 3.9 MMOL/L (3.5-5.1) Chloride Level 102 MMOL/L (98-107) Carbon Dioxide Level 24 MMOL/L (21-32) Anion Gap 4 mmol/L (5-15) L Blood Urea Nitrogen 14 mg/dL (7-18) Creatinine 1.2 MG/DL (0.55-1.30) Estimat Glomerular Filtration Rate > 60 mL/min (>60) Glucose Level 91 MG/DL (74-106) Hemoglobin A1c 4.8 % (4.3-6.0) Osmolality 269 mOsm/kg (297-317) L Uric Acid 3.4 MG/DL (2.6-7.2) Calcium Level 6.3 MG/DL (8.5-10.1) L Phosphorus Level 2.7 MG/DL (2.5-4.9) Magnesium Level 1.7 MG/DL (1.8-2.4) L Ferritin 1951 NG/ML (8-388) H Total Bilirubin 0.4 MG/DL (0.2-1.0) Gamma Glutamyl Transpeptidase 22 U/L (5-85) Aspartate Amino Transf (AST/SGOT) 28 U/L (15-37) Alanine Aminotransferase (ALT/SGPT) 14 U/L (12-78) Alkaline Phosphatase 61 U/L (46-116) Ammonia 29 umol/L (11-32) Total Creatine Kinase 8 U/L (26-308) L C-Reactive Protein, Quantitative 24.6 mg/dL (0.00-0.90) H Pro-B-Type Natriuretic Peptide 668 pg/mL (0-125) H Total Protein 4.6 G/DL (6.4-8.2) L Albumin 0.6 G/DL (3.4-5.0) L Globulin 4.0 g/dL Albumin/Globulin Ratio 0.2 (1.0-2.7) L Triglycerides Level 118 MG/DL (30-150) Cholesterol Level < 50 MG/DL (< 200) LDL Cholesterol 10 mg/dL (<100) HDL Cholesterol 6 MG/DL (40-60) L Cholesterol/HDL Ratio 8.3 (3.3-4.4) H Vitamin B12 Level 247 PG/ML (193-986) Folate 3.8 NG/ML (8.6-58.9) L Cortisol AM Sample Pending Height (Feet): 6 Height (Inches): 0.00 Weight (Pounds): 125 General Appearance: WD/WN, no apparent distress, alert, thin Cardiovascular: normal rate Respiratory/Chest: normal breath sounds, no respiratory distress Abdominal Exam: normal bowel sounds, non tender, soft Extremities: normal range of motion, non-tender Simeon Fall NP Jun 15, 2018 10:36
--- NOTE | 2018-06-15 11:05 | NUR ---
NURSE NOTES: Dr. Hester assessed pt at bedside and ordered that pt requires 2 units of PRBCs instead. RN endorsed to Dr. Bingham who stated that it's ok to increase to units of PRBCs instead. Will carry out orders.
--- NOTE | 2018-06-15 11:05 | Nephrology Progress Note ---
Assessment/Plan Problem List: (1) Hyponatremia (2) Kaposi disease (3) HIV disease (4) Anemia (5) Hepatitis B (6) Hepatitis C Assessment HypoNatremia , etiology ? will comment after urine studies and blood test results available Intractable nausea and vomiting. Severe protein-calorie malnutrition. History of HIV/AIDS. Kaposi sarcoma. Sepsis Anemia, PanCytopenia C diff Hep B and Hep C Plan lab reviewed Folate and B12 Transfuse U Na pend S Os low U Os pend S Uric acid low Per orders Subjective ROS Limited/Unobtainable: No Constitutional: Reports: malaise, weakness Objective Objective Last 24 Hour Vital Signs Date Time Temp Pulse Resp B/P (MAP) Pulse Ox O2 Delivery O2 Flow Rate FiO2 06/15/18 04:00 99.9 137 20 105/62 (76) 99 06/15/18 04:00 142 06/15/18 02:07 101.7 06/15/18 01:15 101.8 158 24 116/63 (80) 06/15/18 00:00 156 06/15/18 00:00 98.4 61 20 124/77 (93) 99 06/14/18 21:00 Room Air 06/14/18 20:00 98.6 151 22 117/65 (82) 100 06/14/18 20:00 144 06/14/18 18:25 99.0 06/14/18 16:00 101.5 141 20 114/61 (78) 100 06/14/18 15:38 99.0 06/14/18 15:36 137 06/14/18 12:00 100.1 121 20 100/62 (75) 98 06/14/18 11:38 121 Intake and Output 06/14/18 06/15/18 19:00 07:00 Intake Total 480 ml Output Total 350 ml 700 ml Balance 130 ml -700 ml Intake Oral 480 ml Output Urine Total 350 ml 700 ml # Bowel Movements 1 2 Laboratory Tests 06/15/18 06:45: White Blood Count 4.7L, Red Blood Count 2.54L, Hemoglobin 6.4*L, Hematocrit 19.9L, Mean Corpuscular Volume 79L, Mean Corpuscular Hemoglobin 25.4L, Mean Corpuscular Hemoglobin Concent 32.3, Red Cell Distribution Width 21.2H, Platelet Count 39L, Mean Platelet Volume 5.5L, Neutrophils (%) (Auto) , Lymphocytes (%) (Auto) , Monocytes (%) (Auto) , Eosinophils (%) (Auto) , Basophils (%) (Auto) , Differential Total Cells Counted 100, Neutrophils % ( Manual) 78H, Lymphocytes % (Manual) 13L, Monocytes % (Manual) 8, Eosinophils % ( Manual) 1, Basophils % (Manual) 0, Band Neutrophils 0, Platelet Estimate DecreasedL, Platelet Morphology Normal, Hypochromasia 1+, Anisocytosis 2+, Microcytosis 1+, Sodium Level 130L, Potassium Level 3.9, Chloride Level 102, Carbon Dioxide Level 24, Anion Gap 4L, Blood Urea Nitrogen 14, Creatinine 1.2, Estimat Glomerular Filtration Rate > 60, Glucose Level 91, Hemoglobin A1c 4.8, Osmolality 269L, Uric Acid 3.4, Calcium Level 6.3L, Phosphorus Level 2.7, Magnesium Level 1.7L, Ferritin 1951H, Total Bilirubin 0.4, Gamma Glutamyl Transpeptidase 22, Aspartate Amino Transf (AST/SGOT) 28, Alanine Aminotransferase (ALT/SGPT) 14, Alkaline Phosphatase 61, Ammonia 29, Total Creatine Kinase 8L, C-Reactive Protein, Quantitative 24.6H, Pro-B-Type Natriuretic Peptide 668H, Total Protein 4.6L, Albumin 0.6L, Globulin 4.0, Albumin/Globulin Ratio 0.2L, Triglycerides Level 118, Cholesterol Level < 50, LDL Cholesterol 10, HDL Cholesterol 6L, Cholesterol/HDL Ratio 8.3H, Vitamin B12 Level 247, Folate 3.8L, Cortisol AM Sample [Pending] Height (Feet): 6 Height (Inches): 0.00 Weight (Pounds): 125 General Appearance: no apparent distress, lethargic Cardiovascular: tachycardia Respiratory/Chest: decreased breath sounds Abdomen: distended Adam Aguiar MD Jun 15, 2018 11:04
--- NOTE | 2018-06-15 11:12 | Pulmonology Progress Note ---
Assessment/Plan Problems: (1) Anemia (2) Severe sepsis (3) HIV disease (4) ATN (acute tubular necrosis) (5) Kaposi disease (6) Cyclic vomiting syndrome (7) Protein-calorie malnutrition, severe (8) Lymphadenopathy Assessment/Plan PRBC 2 untis watch Na, iv abx prbc when hem less than 7 check cultures resume HIV meds f/u ID recommendations Subjective ROS Limited/Unobtainable: No Constitutional: Reports: no symptoms HEENT: Repors: no symptoms Allergies: Coded Allergies: No Known Allergies (Unverified , 10/21/17) Objective Last 24 Hour Vital Signs Date Time Temp Pulse Resp B/P (MAP) Pulse Ox O2 Delivery O2 Flow Rate FiO2 06/15/18 09:00 Room Air 06/15/18 08:00 99.5 131 18 97/55 (69) 97 06/15/18 04:00 99.9 137 20 105/62 (76) 99 06/15/18 04:00 142 06/15/18 02:07 101.7 06/15/18 01:15 101.8 158 24 116/63 (80) 06/15/18 00:00 156 06/15/18 00:00 98.4 61 20 124/77 (93) 99 06/14/18 21:00 Room Air 06/14/18 20:00 98.6 151 22 117/65 (82) 100 06/14/18 20:00 144 06/14/18 18:25 99.0 06/14/18 16:00 101.5 141 20 114/61 (78) 100 06/14/18 15:38 99.0 06/14/18 15:36 137 06/14/18 12:00 100.1 121 20 100/62 (75) 98 06/14/18 11:38 121 Intake and Output 06/14/18 06/15/18 19:00 07:00 Intake Total 480 ml Output Total 350 ml 700 ml Balance 130 ml -700 ml Intake Oral 480 ml Output Urine Total 350 ml 700 ml # Bowel Movements 1 2 Objective General Appearance: WD/WN HEENT: normocephalic, atraumatic Respiratory/Chest: chest wall non-tender, crackles/rales Cardiovascular: normal peripheral pulses, no arrhythmia Abdomen: normal bowel sounds, soft, non tender Genitourinary: normal external genitalia Extremities: no clubbing Skin: no rash, no ulcers Neurologic/Psychiatric: co founder II-XII grossly normal Microbiology Date/Time Source Procedure Growth Status 06/12/18 19:15 Nasopharynx - Final Complete 06/12/18 19:15 Nasopharynx - Final Complete 06/12/18 21:45 Stool Clostridium difficile Toxin Assay - Final Complete Laboratory Tests 06/15/18 06:45: White Blood Count 4.7L, Red Blood Count 2.54L, Hemoglobin 6.4*L, Hematocrit 19.9L, Mean Corpuscular Volume 79L, Mean Corpuscular Hemoglobin 25.4L, Mean Corpuscular Hemoglobin Concent 32.3, Red Cell Distribution Width 21.2H, Platelet Count 39L, Mean Platelet Volume 5.5L, Neutrophils (%) (Auto) , Lymphocytes (%) (Auto) , Monocytes (%) (Auto) , Eosinophils (%) (Auto) , Basophils (%) (Auto) , Differential Total Cells Counted 100, Neutrophils % ( Manual) 78H, Lymphocytes % (Manual) 13L, Monocytes % (Manual) 8, Eosinophils % ( Manual) 1, Basophils % (Manual) 0, Band Neutrophils 0, Platelet Estimate DecreasedL, Platelet Morphology Normal, Hypochromasia 1+, Anisocytosis 2+, Microcytosis 1+, Sodium Level 130L, Potassium Level 3.9, Chloride Level 102, Carbon Dioxide Level 24, Anion Gap 4L, Blood Urea Nitrogen 14, Creatinine 1.2, Estimat Glomerular Filtration Rate > 60, Glucose Level 91, Hemoglobin A1c 4.8, Osmolality 269L, Uric Acid 3.4, Calcium Level 6.3L, Phosphorus Level 2.7, Magnesium Level 1.7L, Ferritin 1951H, Total Bilirubin 0.4, Gamma Glutamyl Transpeptidase 22, Aspartate Amino Transf (AST/SGOT) 28, Alanine Aminotransferase (ALT/SGPT) 14, Alkaline Phosphatase 61, Ammonia 29, Total Creatine Kinase 8L, C-Reactive Protein, Quantitative 24.6H, Pro-B-Type Natriuretic Peptide 668H, Total Protein 4.6L, Albumin 0.6L, Globulin 4.0, Albumin/Globulin Ratio 0.2L, Triglycerides Level 118, Cholesterol Level < 50, LDL Cholesterol 10, HDL Cholesterol 6L, Cholesterol/HDL Ratio 8.3H, Vitamin B12 Level 247, Folate 3.8L, Cortisol AM Sample [Pending] Current Medications Medications (Trade) Dose Ordered Sig/Yessica Route PRN Reason Start Time Stop Time Status Last Admin Dose Admin Acetaminophen (Tylenol) 650 mg Q4H PRN ORAL fever 06/12/18 09:30 07/12/18 09:29 06/15/18 01:37 Cyanocobalamin (Vitamin B12) 1,000 mcg ONCE ONCE IM 06/15/18 11:15 06/15/18 11:16 UNV Dextrose (Dextrose 50%) 25 ml Q30M PRN IV Hypoglycemia 06/12/18 09:30 07/12/18 09:29 Dextrose (Dextrose 50%) 50 ml Q30M PRN IV Hypoglycemia 06/12/18 09:30 07/12/18 09:29 Diphenhydramine HCl (Benadryl) 25 mg Q6H PRN ORAL Itching/Pruritis 06/12/18 09:30 07/12/18 09:29 Dronabinol (Marinol) 2.5 mg TID ORAL 06/15/18 13:00 07/13/18 17:59 Folic Acid (Folate) 5 mg DAILY ORAL 06/15/18 11:15 07/15/18 11:14 Lactobacillus Acidophilus (Culturelle) 1 tab THREE TIMES A DAY ORAL 06/14/18 18:00 07/14/18 17:59 06/15/18 09:19 Lorazepam (Ativan 2mg/ml 1ml) 1 mg Q4H PRN IV agitation 06/12/18 09:30 06/19/18 09:29 Mirtazapine (Remeron) 15 mg BEDTIME ORAL 06/12/18 21:00 07/12/18 20:59 06/14/18 21:43 Morphine Sulfate (Morphine Sulfate) 4 mg Q4H PRN IVP severe Pain (Pain Scale 7-10) 06/14/18 20:30 06/19/18 09:29 06/15/18 06:49 Nitroglycerin (Ntg) 0.4 mg Q5M X 3 DOSES PRN SL Prn Chest Pain 06/12/18 09:30 07/12/18 09:29 Ondansetron HCl (Zofran) 4 mg Q6H PRN IVP Nausea & Vomiting 06/12/18 09:30 07/12/18 09:29 06/15/18 09:32 Pantoprazole (Protonix) 40 mg EVERY 12 HOURS ORAL 06/14/18 21:00 07/14/18 20:59 06/15/18 09:19 Patient Own Medication (Patient's Own Med) 1 ea DAILY ORAL 06/13/18 15:30 07/13/18 15:29 06/15/18 09:18 Patient Own Medication (Patient's Own Med) 1 ea DAILY ORAL 06/13/18 15:30 07/13/18 15:29 06/15/18 09:19 Promethazine HCl (Phenergan) 25 mg Q6H PRN IM REFRACTORY N/V 06/12/18 09:30 07/12/18 09:29 Sodium Chloride 1,000 ml @ 50 mls/hr Q20H IV 06/14/18 17:00 07/14/18 16:59 06/14/18 17:27 Temazepam (Restoril) 15 mg HSPRN PRN ORAL Insomnia 06/12/18 09:30 06/19/18 09:29 Vancomycin HCl (Firvanq) 125 mg FOUR TIMES A DAY ORAL 06/13/18 09:00 06/20/18 08:59 06/15/18 09:19 Ya Hester MD Jun 15, 2018 11:12
[2018-06-15 11:38] LABS: % IRON SATURATION 12 % (15-50); IRON 5 ug/dL (50-175); TOTAL IRON BINDING CAPACITY 43 ug/dL (250-450)
--- NOTE | 2018-06-15 12:52 | General Progress Note ---
Assessment/Plan Status: unchanged Assessment/Plan: Assessment and Recs # Pancytopenia, worsening, with severe diffuse lymphadenopathy worsened since 2018, in the setting Castlemans's disease/KS - outpatinent chemo has been received as recently 09/2017 or so. Hx of HIV, CD4 count very low. He has a very poor memory, says was treated at [facility] S/P Chemo ending 07/17/17. Last PET 08/12 - show stable/not worsening lymphadenopathy. Has very extensive disease on ct scan lympahdenopathy noted throughout, final results of axilla lymphadenopathy biopsy, FINAL results from prior admission are nondiagnostic --> I talked with him regarding getting potentially another biopsy (bulky lymph node v bone marrow biopsy) he has thus far refused --> IL-6 was 54 in the past indicating active disease, needs close followup with heme outpatient, may need rituxan or siltuximab --> inflammatory makers are elevated which can be c/w flare but are fairly non- specific --> imaging is ordered as well --> outpatient f/u as well for futher therapy prn --> treat underlying HIV as per ID service # Anemia of chronic disease -- workup has been reviewed --> esr elevated, as is crp --> transfuse if hgb <7 # Anemia of folic acid deficiency --> start patient on folic acid 1mg po daily, continue given low levels # DVT hx that was diagnosed at outpatient hospital --> inpatient venous duplex is negative for thromboembolism, therefore DOES not require anticoagulants --> have discussed this with patients and patient's mother # Sepsis - PNA, [place], other infection, TB? --> on HIV meds, abx as needed # HIV - On Tivicay and Truvada and Bactrim, CD4 count 64 --> VL pending, CD4 count ordered <100 --> IL-6 is 51 # REENA cr 1.2-->1.1 The timing of this note does not necessarily reflect the time of the patient was seen. Greatly appreciate consultation. Subjective Constitutional: Denies: no symptoms, chills, diaphoresis, fever, malaise, weakness, other Cardiovascular: Denies: no symptoms, chest pain, edema, irregular heart rate, lightheadedness, palpitations, syncope, other Gastrointestinal/Abdominal: Denies: no symptoms, abdomen distended, abdominal pain, black stools, tarry stools, blood in stool, constipated, diarrhea, difficulty swallowing, nausea, poor appetite, poor fluid intake, rectal bleeding , vomiting, other Genitourinary: Denies: no symptoms, burning, discharge, frequency, flank pain, hematuria, incontinence, pain, urgency, other Neurologic/Psychiatric: Denies: no symptoms, anxiety, depressed, emotional problems, headache, numbness, paresthesia, pre-existing deficit, seizure, tingling, tremors, weakness, other Endocrine: Denies: no symptoms, excessive sweating, flushing, intolerance to cold, intolerance to heat, increased hunger, increased thirst, increased urine, unexplained weight gain, unexplained weight loss, other Allergies: Coded Allergies: No Known Allergies (Unverified , 10/21/17) Subjective 06/15: to get 2 units pf prbc today, seen by pulm, he still doesn't want a bone marrow biopsy Objective Last 24 Hour Vital Signs Date Time Temp Pulse Resp B/P (MAP) Pulse Ox O2 Delivery O2 Flow Rate FiO2 06/15/18 12:00 99.2 148 20 105/60 (75) 100 06/15/18 09:00 Room Air 06/15/18 08:00 136 06/15/18 08:00 99.5 131 18 97/55 (69) 97 06/15/18 04:00 99.9 137 20 105/62 (76) 99 06/15/18 04:00 142 06/15/18 02:07 101.7 06/15/18 01:15 101.8 158 24 116/63 (80) 06/15/18 00:00 156 06/15/18 00:00 98.4 61 20 124/77 (93) 99 06/14/18 21:00 Room Air 06/14/18 20:00 98.6 151 22 117/65 (82) 100 06/14/18 20:00 144 06/14/18 18:25 99.0 06/14/18 16:00 101.5 141 20 114/61 (78) 100 06/14/18 15:38 99.0 06/14/18 15:36 137 Intake and Output 06/14/18 06/15/18 19:00 07:00 Intake Total 480 ml Output Total 350 ml 700 ml Balance 130 ml -700 ml Intake Oral 480 ml Output Urine Total 350 ml 700 ml # Bowel Movements 1 2 Laboratory Tests 06/15/18 06:45: White Blood Count 4.7L, Red Blood Count 2.54L, Hemoglobin 6.4*L, Hematocrit 19.9L, Mean Corpuscular Volume 79L, Mean Corpuscular Hemoglobin 25.4L, Mean Corpuscular Hemoglobin Concent 32.3, Red Cell Distribution Width 21.2H, Platelet Count 39L, Mean Platelet Volume 5.5L, Neutrophils (%) (Auto) , Lymphocytes (%) (Auto) , Monocytes (%) (Auto) , Eosinophils (%) (Auto) , Basophils (%) (Auto) , Differential Total Cells Counted 100, Neutrophils % ( Manual) 78H, Lymphocytes % (Manual) 13L, Monocytes % (Manual) 8, Eosinophils % ( Manual) 1, Basophils % (Manual) 0, Band Neutrophils 0, Platelet Estimate DecreasedL, Platelet Morphology Normal, Hypochromasia 1+, Anisocytosis 2+, Microcytosis 1+, Sodium Level 130L, Potassium Level 3.9, Chloride Level 102, Carbon Dioxide Level 24, Anion Gap 4L, Blood Urea Nitrogen 14, Creatinine 1.2, Estimat Glomerular Filtration Rate > 60, Glucose Level 91, Hemoglobin A1c 4.8, Osmolality 269L, Uric Acid 3.4, Calcium Level 6.3L, Phosphorus Level 2.7, Magnesium Level 1.7L, Iron Level 5L, Total Iron Binding Capacity 43L, Percent Iron Saturation 12L, Unsaturated Iron Binding 38L, Ferritin 1951H, Total Bilirubin 0.4, Gamma Glutamyl Transpeptidase 22, Aspartate Amino Transf (AST/ SGOT) 28, Alanine Aminotransferase (ALT/SGPT) 14, Alkaline Phosphatase 61, Ammonia 29, Total Creatine Kinase 8L, C-Reactive Protein, Quantitative 24.6H, Pro-B-Type Natriuretic Peptide 668H, Total Protein 4.6L, Albumin 0.6L, Globulin 4.0, Albumin/Globulin Ratio 0.2L, Triglycerides Level 118, Cholesterol Level < 50, LDL Cholesterol 10, HDL Cholesterol 6L, Cholesterol/HDL Ratio 8.3H, Vitamin B12 Level 247, Folate 3.8L, Total Testosterone [Pending], Cortisol AM Sample [ Pending] Height (Feet): 6 Height (Inches): 0.00 Weight (Pounds): 125 Objective Physical Exam: Vitals: reviewed General Appearance: NAD HEENT: normocephalic, atraumatic Neck: non-tender, normal alignment Respiratory/Chest: normal breath sounds bilaterally Cardiovascular/Chest: normal peripheral pulses, normal rate Abdomen: normal bowel sounds, soft, not Extremities: normal range of motion Jean Bingham MD Jun 15, 2018 12:52
[2018-06-15] MEDS ORDERED: Vitamin B12 1000mcg/ml Inj IM SCH (13:00)
[2018-06-15] MEDS: NS w/KCl 20mEq 1,000 ML IV SCH (13:00)
--- NOTE | 2018-06-15 13:23 | Cardiac Electrophysiology PN ---
Assessment/Plan Assessment/Plan 1. Sinus tachycardia, due to likely sepsis, anemia and pain. Ruled out for [place]. EKG showed no acute ischemic changes. There is no evidence of atrial fibrillation or supraventricular tachycardia. Echo EF 75%. Getting transfuaion 2. History of hypertension. Hold off on antihypertensive agents. 3. 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 5. History of pancreatitis and hepatitis B and C positive. 6. Severe anemia. Hb 9 to 6.4. Getting transfusion DW RN Subjective Subjective No CP or SOB. In sinus tach 120-140s. On iv fluid50 cc/hr. Blood transfusion pending Objective Last 24 Hour Vital Signs Date Time Temp Pulse Resp B/P (MAP) Pulse Ox O2 Delivery O2 Flow Rate FiO2 06/15/18 12:00 99.2 148 20 105/60 (75) 100 06/15/18 09:00 Room Air 06/15/18 08:00 136 06/15/18 08:00 99.5 131 18 97/55 (69) 97 06/15/18 04:00 99.9 137 20 105/62 (76) 99 06/15/18 04:00 142 06/15/18 02:07 101.7 06/15/18 01:15 101.8 158 24 116/63 (80) 06/15/18 00:00 156 06/15/18 00:00 98.4 61 20 124/77 (93) 99 06/14/18 21:00 Room Air 06/14/18 20:00 98.6 151 22 117/65 (82) 100 06/14/18 20:00 144 06/14/18 18:25 99.0 06/14/18 16:00 101.5 141 20 114/61 (78) 100 06/14/18 15:38 99.0 06/14/18 15:36 137 Intake and Output 06/14/18 06/15/18 19:00 07:00 Intake Total 480 ml Output Total 350 ml 700 ml Balance 130 ml -700 ml Intake Oral 480 ml Output Urine Total 350 ml 700 ml # Bowel Movements 1 2 Laboratory Tests Test 06/15/18 06:45 White Blood Count 4.7 K/UL (4.8-10.8) L Red Blood Count 2.54 M/UL (4.70-6.10) L Hemoglobin 6.4 G/DL (14.2-18.0) *L Hematocrit 19.9 % (42.0-52.0) L Mean Corpuscular Volume 79 FL (80-99) L Mean Corpuscular Hemoglobin 25.4 PG (27.0-31.0) L Mean Corpuscular Hemoglobin Concent 32.3 G/DL (32.0-36.0) Red Cell Distribution Width 21.2 % (11.6-14.8) H Platelet Count 39 K/UL (150-450) L Mean Platelet Volume 5.5 FL (6.5-10.1) L Neutrophils (%) (Auto) % (45.0-75.0) Lymphocytes (%) (Auto) % (20.0-45.0) Monocytes (%) (Auto) % (1.0-10.0) Eosinophils (%) (Auto) % (0.0-3.0) Basophils (%) (Auto) % (0.0-2.0) Differential Total Cells Counted 100 Neutrophils % (Manual) 78 % (45-75) H Lymphocytes % (Manual) 13 % (20-45) L Monocytes % (Manual) 8 % (1-10) Eosinophils % (Manual) 1 % (0-3) Basophils % (Manual) 0 % (0-2) Band Neutrophils 0 % (0-8) Platelet Estimate Decreased L Platelet Morphology Normal Hypochromasia 1+ Anisocytosis 2+ Microcytosis 1+ Sodium Level 130 MMOL/L (136-145) L Potassium Level 3.9 MMOL/L (3.5-5.1) Chloride Level 102 MMOL/L (98-107) Carbon Dioxide Level 24 MMOL/L (21-32) Anion Gap 4 mmol/L (5-15) L Blood Urea Nitrogen 14 mg/dL (7-18) Creatinine 1.2 MG/DL (0.55-1.30) Estimat Glomerular Filtration Rate > 60 mL/min (>60) Glucose Level 91 MG/DL (74-106) Hemoglobin A1c 4.8 % (4.3-6.0) Osmolality 269 mOsm/kg (297-317) L Uric Acid 3.4 MG/DL (2.6-7.2) Calcium Level 6.3 MG/DL (8.5-10.1) L Phosphorus Level 2.7 MG/DL (2.5-4.9) Magnesium Level 1.7 MG/DL (1.8-2.4) L Iron Level 5 ug/dL (50-175) L Total Iron Binding Capacity 43 ug/dL (250-450) L Percent Iron Saturation 12 % (15-50) L Unsaturated Iron Binding 38 ug/dL (112-346) L Ferritin 1951 NG/ML (8-388) H Total Bilirubin 0.4 MG/DL (0.2-1.0) Gamma Glutamyl Transpeptidase 22 U/L (5-85) Aspartate Amino Transf (AST/SGOT) 28 U/L (15-37) Alanine Aminotransferase (ALT/SGPT) 14 U/L (12-78) Alkaline Phosphatase 61 U/L (46-116) Ammonia 29 umol/L (11-32) Total Creatine Kinase 8 U/L (26-308) L C-Reactive Protein, Quantitative 24.6 mg/dL (0.00-0.90) H Pro-B-Type Natriuretic Peptide 668 pg/mL (0-125) H Total Protein 4.6 G/DL (6.4-8.2) L Albumin 0.6 G/DL (3.4-5.0) L Globulin 4.0 g/dL Albumin/Globulin Ratio 0.2 (1.0-2.7) L Triglycerides Level 118 MG/DL (30-150) Cholesterol Level < 50 MG/DL (< 200) LDL Cholesterol 10 mg/dL (<100) HDL Cholesterol 6 MG/DL (40-60) L Cholesterol/HDL Ratio 8.3 (3.3-4.4) H Vitamin B12 Level 247 PG/ML (193-986) Folate 3.8 NG/ML (8.6-58.9) L Total Testosterone Pending Cortisol AM Sample Pending Microbiology Date/Time Source Procedure Growth Status 06/12/18 19:15 Nasopharynx - Final Complete 06/12/18 19:15 Nasopharynx - Final Complete 06/12/18 21:45 Stool Clostridium difficile Toxin Assay - Final Complete Objective HEAD AND NECK: no JVD. LUNGS: Decreased breath sounds. CARDIOVASCULAR: Tachycardic, S1, S2 with no gallop. ABDOMEN: Soft. EXTREMITIES: Chronic skin changes and edema. Toney Howe MD Jun 15, 2018 13:23
--- NOTE | 2018-06-15 14:29 | Infectious Diseases Prog Note ---
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 Recommend repeat/follow- up -Abd US: Cholelithiasis. Minimal pericholecystic fluid. Correlate clinically for cholecystitis. Thrombocytopenia Anemia CKD Diffuse lymphadenopathy- Ddx: CMV disease (ie colitis), Diffuse MAC, recurrente Castleman, HIV related, lymphoma -05/18 s/p L axillary lymph node biopsy -path fragments of benign lymph node with pronounced polytypic plasmacytosis; focally + HHV8. 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 -05/16/18 CT chest: Mediastinal, axillary, and supraclavicular lymphadenopathy , enlarged compared to the prior CT of the chest. Largest left axillary node measures 3.4 x 2.4 cm. Largest supraclavicular node on the left measures 3.8 x 2.8 cm. Largest mediastinal nodes include a 2.2 x 1.6 cm pretracheal node and a 2.3 x 1.6 cm subcarinal node. Small layering right pleural effusion with fluid in the minor fissure. Kasie-bronchovascular groundglass haziness and nodularity in the right lower lobe. Scattered paraseptal emphysematous changes, predominantly in the upper lung zones. -05/16/18 CT abd/p: Diffuse edema and haziness throughout the mesenteric root. Not significantly changed compared to the visualized portions of the mesenteric root in the prior CT of the chest dated 10/22/17. Mesenteric, retroperitoneal, and inguinal lymphadenopathy. Largest retroperitoneal node measures 3.1 x 2.5 x 2.0 cm to left of the IVC (series 8 image 56, series 10 image 23). Largest left inguinal left node measures 2.9 x 2.5 cm (series 8 image 90). Mild fluid distention and air-fluid levels throughout the colon, which may suggest mild colitis and/or diarrheal disease. No evidence of bowel obstruction. Cholelithiasis without gallbladder wall thickening or ductal dilatation. Scattered subcentimeter hypodensities throughout the spleen, possibly tiny simple cysts. Subcentimeter simple-appearing left renal cortical cysts. Mild urinary bladder wall thickening, most likely related to underdistention. -CT head: . Opacification of the right maxillary sinus, right frontal sinus , and mucosal thickening throughout the ethmoid air cells and left maxillary sinus, suggestive of sinusitis. Partial opacification of the inferior posterior aspect of the left mastoid air cells, suggesting small left mastoid effusion. 04/2018- Cr Ag , T spot, CMV PCR, CMV IgM neg - 10/22/17- CT show reticular opacity and significant lymphadenopathy 10/23/17 - CT abd/pel Lymphadenopathy, Enlarged Pancrease mild B/L hydronephrosis -Blasto, Histo, CrAg neg 11/21/16 - Quantiferon negative (Out Side lab) Recent Colitis -04/2018 Cdiff neg -stool cx normal phi - O and P neg x3 HIV/AIDS- questionable compliance to ARV (dx 1999)- on Truvada and Dolutegravir -04/2018 HIV VL p, Cd4 64 (9.1%); VL 100 ?decrease due to non compliance, however low viremia (will expect higher viremia if non compliance) -10/2017 HIV VL ND, CD4 87 (12.4%) -09/01/17 - CD4 192 and VL - ND (Out Side labs) -no hx of resistance ; previously on Truvada, Reyataz and Norvir -Has been above 200 in the past. Came down with Chemo hx pancreatitis 10/2017 hx of Kaposi's sarcoma/Castleman's disease s/p chemotherapy - S/P Chemo ending 07/17/17 Last PET 08/12/17 - show stable/not worsening lymphadenopathy Hep C+ -VL ND hx of Chronic Hep B, VL <15 09/01/17 hx of DVT Plan: -Continue PO Vancomycin #/-14 -Agree w/discontinuing Zosyn #2 -06/12 SP Flagyl x1 - 05/21/18 SP Ceftriaxone #5 and Flagyl #7 for colitis -05/15/18 SP empiric IV Vancomycin #4 and switch empiric Zosyn #3 to Ceftriaxone and Flagyl -05/16/18 SP Tamiflu #4 - 05/12 SP Cefepime x1 -f/u cx -Monitor CBC/CMP, temperatures -Heme onc c/s -Will need excisional biopsy and bone marrow biopsy- high suspicion for recurrence of Castleman's disease -f/u HIV VL and genotype, Hep B PCR, RPR, GC/CL -f/u CXR 2 v am -f/u AFB bcx, sp cx, PCP DFA -aspiration precautions Subjective Allergies: Coded Allergies: No Known Allergies (Unverified , 10/21/17) Subjective Diarrhea ++ Objective Vital Signs Last 24 Hour Vital Signs Date Time Temp Pulse Resp B/P (MAP) Pulse Ox O2 Delivery O2 Flow Rate FiO2 06/15/18 12:00 99.2 148 20 105/60 (75) 100 06/15/18 09:00 Room Air 06/15/18 08:00 136 06/15/18 08:00 99.5 131 18 97/55 (69) 97 06/15/18 04:00 99.9 137 20 105/62 (76) 99 06/15/18 04:00 142 06/15/18 02:07 101.7 06/15/18 01:15 101.8 158 24 116/63 (80) 06/15/18 00:00 156 06/15/18 00:00 98.4 61 20 124/77 (93) 99 06/14/18 21:00 Room Air 06/14/18 20:00 98.6 151 22 117/65 (82) 100 06/14/18 20:00 144 06/14/18 18:25 99.0 06/14/18 16:00 101.5 141 20 114/61 (78) 100 06/14/18 15:38 99.0 06/14/18 15:36 137 Height (Feet): 6 Height (Inches): 0.00 Weight (Pounds): 125 HEENT: normocephalic, anicteric Respiratory/Chest: lungs clear Cardiovascular: normal rate, regular rhythm Abdomen: soft, non tender Microbiology Date/Time Source Procedure Growth Status 06/12/18 19:15 Nasopharynx - Final Complete 06/12/18 19:15 Nasopharynx - Final Complete 06/12/18 21:45 Stool Clostridium difficile Toxin Assay - Final Complete Laboratory Tests Test 06/15/18 06:45 White Blood Count 4.7 K/UL (4.8-10.8) L Red Blood Count 2.54 M/UL (4.70-6.10) L Hemoglobin 6.4 G/DL (14.2-18.0) *L Hematocrit 19.9 % (42.0-52.0) L Mean Corpuscular Volume 79 FL (80-99) L Mean Corpuscular Hemoglobin 25.4 PG (27.0-31.0) L Mean Corpuscular Hemoglobin Concent 32.3 G/DL (32.0-36.0) Red Cell Distribution Width 21.2 % (11.6-14.8) H Platelet Count 39 K/UL (150-450) L Mean Platelet Volume 5.5 FL (6.5-10.1) L Neutrophils (%) (Auto) % (45.0-75.0) Lymphocytes (%) (Auto) % (20.0-45.0) Monocytes (%) (Auto) % (1.0-10.0) Eosinophils (%) (Auto) % (0.0-3.0) Basophils (%) (Auto) % (0.0-2.0) Differential Total Cells Counted 100 Neutrophils % (Manual) 78 % (45-75) H Lymphocytes % (Manual) 13 % (20-45) L Monocytes % (Manual) 8 % (1-10) Eosinophils % (Manual) 1 % (0-3) Basophils % (Manual) 0 % (0-2) Band Neutrophils 0 % (0-8) Platelet Estimate Decreased L Platelet Morphology Normal Hypochromasia 1+ Anisocytosis 2+ Microcytosis 1+ Sodium Level 130 MMOL/L (136-145) L Potassium Level 3.9 MMOL/L (3.5-5.1) Chloride Level 102 MMOL/L (98-107) Carbon Dioxide Level 24 MMOL/L (21-32) Anion Gap 4 mmol/L (5-15) L Blood Urea Nitrogen 14 mg/dL (7-18) Creatinine 1.2 MG/DL (0.55-1.30) Estimat Glomerular Filtration Rate > 60 mL/min (>60) Glucose Level 91 MG/DL (74-106) Hemoglobin A1c 4.8 % (4.3-6.0) Osmolality 269 mOsm/kg (297-317) L Uric Acid 3.4 MG/DL (2.6-7.2) Calcium Level 6.3 MG/DL (8.5-10.1) L Phosphorus Level 2.7 MG/DL (2.5-4.9) Magnesium Level 1.7 MG/DL (1.8-2.4) L Iron Level 5 ug/dL (50-175) L Total Iron Binding Capacity 43 ug/dL (250-450) L Percent Iron Saturation 12 % (15-50) L Unsaturated Iron Binding 38 ug/dL (112-346) L Ferritin 1951 NG/ML (8-388) H Total Bilirubin 0.4 MG/DL (0.2-1.0) Gamma Glutamyl Transpeptidase 22 U/L (5-85) Aspartate Amino Transf (AST/SGOT) 28 U/L (15-37) Alanine Aminotransferase (ALT/SGPT) 14 U/L (12-78) Alkaline Phosphatase 61 U/L (46-116) Ammonia 29 umol/L (11-32) Total Creatine Kinase 8 U/L (26-308) L C-Reactive Protein, Quantitative 24.6 mg/dL (0.00-0.90) H Pro-B-Type Natriuretic Peptide 668 pg/mL (0-125) H Total Protein 4.6 G/DL (6.4-8.2) L Albumin 0.6 G/DL (3.4-5.0) L Globulin 4.0 g/dL Albumin/Globulin Ratio 0.2 (1.0-2.7) L Triglycerides Level 118 MG/DL (30-150) Cholesterol Level < 50 MG/DL (< 200) LDL Cholesterol 10 mg/dL (<100) HDL Cholesterol 6 MG/DL (40-60) L Cholesterol/HDL Ratio 8.3 (3.3-4.4) H Vitamin B12 Level 247 PG/ML (193-986) Folate 3.8 NG/ML (8.6-58.9) L Total Testosterone Pending Cortisol AM Sample 11.0 UG/DL Current Medications Medications (Trade) Dose Ordered Sig/Yessica Route PRN Reason Start Time Stop Time Status Last Admin Dose Admin Acetaminophen (Tylenol) 650 mg Q4H PRN ORAL fever 06/12/18 09:30 07/12/18 09:29 06/15/18 12:50 Cyanocobalamin (Vitamin B12) 1,000 mcg ONCE IM 06/15/18 13:00 06/15/18 15:00 Dextrose (Dextrose 50%) 25 ml Q30M PRN IV Hypoglycemia 06/12/18 09:30 07/12/18 09:29 Dextrose (Dextrose 50%) 50 ml Q30M PRN IV Hypoglycemia 06/12/18 09:30 07/12/18 09:29 Diphenhydramine HCl (Benadryl) 25 mg Q6H PRN ORAL Itching/Pruritis 06/12/18 09:30 07/12/18 09:29 Dronabinol (Marinol) 2.5 mg TID ORAL 06/15/18 13:00 07/13/18 17:59 Folic Acid (Folate) 5 mg DAILY ORAL 06/15/18 11:15 07/15/18 11:14 Lactobacillus Acidophilus (Culturelle) 1 tab THREE TIMES A DAY ORAL 06/14/18 18:00 07/14/18 17:59 06/15/18 09:19 Lorazepam (Ativan 2mg/ml 1ml) 1 mg Q4H PRN IV agitation 06/12/18 09:30 06/19/18 09:29 Mirtazapine (Remeron) 15 mg BEDTIME ORAL 06/12/18 21:00 07/12/18 20:59 06/14/18 21:43 Morphine Sulfate (Morphine Sulfate) 4 mg Q4H PRN IVP severe Pain (Pain Scale 7-10) 06/14/18 20:30 06/19/18 09:29 06/15/18 12:50 Nitroglycerin (Ntg) 0.4 mg Q5M X 3 DOSES PRN SL Prn Chest Pain 06/12/18 09:30 07/12/18 09:29 Ondansetron HCl (Zofran) 4 mg Q6H PRN IVP Nausea & Vomiting 06/12/18 09:30 07/12/18 09:29 06/15/18 09:32 Pantoprazole (Protonix) 40 mg EVERY 12 HOURS ORAL 06/14/18 21:00 07/14/18 20:59 06/15/18 09:19 Patient Own Medication (Patient's Own Med) 1 ea DAILY ORAL 06/13/18 15:30 07/13/18 15:29 06/15/18 09:18 Patient Own Medication (Patient's Own Med) 1 ea DAILY ORAL 06/13/18 15:30 07/13/18 15:29 06/15/18 09:19 Promethazine HCl (Phenergan) 25 mg Q6H PRN IM REFRACTORY N/V 06/12/18 09:30 07/12/18 09:29 Sodium Chloride 1,000 ml @ 50 mls/hr Q20H IV 06/14/18 17:00 07/14/18 16:59 06/14/18 17:27 Temazepam (Restoril) 15 mg HSPRN PRN ORAL Insomnia 06/12/18 09:30 06/19/18 09:29 Vancomycin HCl (Firvanq) 125 mg FOUR TIMES A DAY ORAL 06/13/18 09:00 06/20/18 08:59 06/15/18 09:19 Jez Mendoza MD Jun 15, 2018 14:29
--- NOTE | 2018-06-15 19:03 | Internal Med Progress Note ---
Subjective Date of Service: Jun 15, 2018 Physician Name Adam Padron Attending Physician Alberto Gtz MD Current Medications Medications (Trade) Dose Ordered Sig/Yessica Route PRN Reason Start Time Stop Time Status Last Admin Dose Admin Acetaminophen (Tylenol) 650 mg Q4H PRN ORAL fever 06/12/18 09:30 07/12/18 09:29 06/15/18 12:50 Dextrose (Dextrose 50%) 25 ml Q30M PRN IV Hypoglycemia 06/12/18 09:30 07/12/18 09:29 Dextrose (Dextrose 50%) 50 ml Q30M PRN IV Hypoglycemia 06/12/18 09:30 07/12/18 09:29 Diphenhydramine HCl (Benadryl) 25 mg Q6H PRN ORAL Itching/Pruritis 06/12/18 09:30 07/12/18 09:29 Dronabinol (Marinol) 2.5 mg TID ORAL 06/15/18 13:00 07/13/18 17:59 06/15/18 17:38 Folic Acid (Folate) 5 mg DAILY ORAL 06/15/18 11:15 07/15/18 11:14 Lactobacillus Acidophilus (Culturelle) 1 tab THREE TIMES A DAY ORAL 06/14/18 18:00 07/14/18 17:59 06/15/18 17:38 Lorazepam (Ativan 2mg/ml 1ml) 1 mg Q4H PRN IV agitation 06/12/18 09:30 06/19/18 09:29 Magnesium Sulfate 100 ml @ 100 mls/hr Q1H IVPB 06/15/18 23:00 06/16/18 00:59 Mirtazapine (Remeron) 15 mg BEDTIME ORAL 06/12/18 21:00 07/12/18 20:59 06/14/18 21:43 Morphine Sulfate (Morphine Sulfate) 4 mg Q4H PRN IVP severe Pain (Pain Scale 7-10) 06/14/18 20:30 06/19/18 09:29 06/15/18 17:39 Nitroglycerin (Ntg) 0.4 mg Q5M X 3 DOSES PRN SL Prn Chest Pain 06/12/18 09:30 07/12/18 09:29 Ondansetron HCl (Zofran) 4 mg Q6H PRN IVP Nausea & Vomiting 06/12/18 09:30 07/12/18 09:29 06/15/18 09:32 Pantoprazole (Protonix) 40 mg EVERY 12 HOURS ORAL 06/14/18 21:00 07/14/18 20:59 06/15/18 09:19 Patient Own Medication (Patient's Own Med) 1 ea DAILY ORAL 06/13/18 15:30 07/13/18 15:29 06/15/18 09:18 Patient Own Medication (Patient's Own Med) 1 ea DAILY ORAL 06/13/18 15:30 07/13/18 15:29 06/15/18 09:19 Promethazine HCl (Phenergan) 25 mg Q6H PRN IM REFRACTORY N/V 06/12/18 09:30 07/12/18 09:29 Sodium Chloride 1,000 ml @ 50 mls/hr Q20H IV 06/14/18 17:00 07/14/18 16:59 06/14/18 17:27 Temazepam (Restoril) 15 mg HSPRN PRN ORAL Insomnia 06/12/18 09:30 06/19/18 09:29 Vancomycin HCl (Firvanq) 125 mg FOUR TIMES A DAY ORAL 06/13/18 09:00 06/20/18 08:59 06/15/18 17:38 Allergies: Coded Allergies: No Known Allergies (Unverified , 10/21/17) ROS Limited/Unobtainable: No Constitutional: Reports: no symptoms HEENT: Reports: no symptoms Cardiovascular: Reports: no symptoms Respiratory: Reports: no symptoms Gastrointestinal/Abdominal: Reports: no symptoms Genitourinary: Reports: no symptoms Neurologic/Psychiatric: Reports: no symptoms Subjective 37 YO M with history of HIV, kaposi's Sarcoma and Castleman Dis admitted with nausea, vomiting and diarrhea. Now C. Diff. Cover for Int Med-Dr Gtz. Low grade fever overnight Objective Last Vital Signs Date Time Temp Pulse Resp B/P (MAP) Pulse Ox O2 Delivery O2 Flow Rate FiO2 06/15/18 16:00 132 06/15/18 16:00 99.5 20 111/60 (77) 96 06/15/18 09:00 Room Air Laboratory Tests Test 06/15/18 06:45 White Blood Count 4.7 K/UL (4.8-10.8) L Red Blood Count 2.54 M/UL (4.70-6.10) L Hemoglobin 6.4 G/DL (14.2-18.0) *L Hematocrit 19.9 % (42.0-52.0) L Mean Corpuscular Volume 79 FL (80-99) L Mean Corpuscular Hemoglobin 25.4 PG (27.0-31.0) L Mean Corpuscular Hemoglobin Concent 32.3 G/DL (32.0-36.0) Red Cell Distribution Width 21.2 % (11.6-14.8) H Platelet Count 39 K/UL (150-450) L Mean Platelet Volume 5.5 FL (6.5-10.1) L Neutrophils (%) (Auto) % (45.0-75.0) Lymphocytes (%) (Auto) % (20.0-45.0) Monocytes (%) (Auto) % (1.0-10.0) Eosinophils (%) (Auto) % (0.0-3.0) Basophils (%) (Auto) % (0.0-2.0) Differential Total Cells Counted 100 Neutrophils % (Manual) 78 % (45-75) H Lymphocytes % (Manual) 13 % (20-45) L Monocytes % (Manual) 8 % (1-10) Eosinophils % (Manual) 1 % (0-3) Basophils % (Manual) 0 % (0-2) Band Neutrophils 0 % (0-8) Platelet Estimate Decreased L Platelet Morphology Normal Hypochromasia 1+ Anisocytosis 2+ Microcytosis 1+ Sodium Level 130 MMOL/L (136-145) L Potassium Level 3.9 MMOL/L (3.5-5.1) Chloride Level 102 MMOL/L (98-107) Carbon Dioxide Level 24 MMOL/L (21-32) Anion Gap 4 mmol/L (5-15) L Blood Urea Nitrogen 14 mg/dL (7-18) Creatinine 1.2 MG/DL (0.55-1.30) Estimat Glomerular Filtration Rate > 60 mL/min (>60) Glucose Level 91 MG/DL (74-106) Hemoglobin A1c 4.8 % (4.3-6.0) Osmolality 269 mOsm/kg (297-317) L Uric Acid 3.4 MG/DL (2.6-7.2) Calcium Level 6.3 MG/DL (8.5-10.1) L Phosphorus Level 2.7 MG/DL (2.5-4.9) Magnesium Level 1.7 MG/DL (1.8-2.4) L Iron Level 5 ug/dL (50-175) L Total Iron Binding Capacity 43 ug/dL (250-450) L Percent Iron Saturation 12 % (15-50) L Unsaturated Iron Binding 38 ug/dL (112-346) L Ferritin 1951 NG/ML (8-388) H Total Bilirubin 0.4 MG/DL (0.2-1.0) Gamma Glutamyl Transpeptidase 22 U/L (5-85) Aspartate Amino Transf (AST/SGOT) 28 U/L (15-37) Alanine Aminotransferase (ALT/SGPT) 14 U/L (12-78) Alkaline Phosphatase 61 U/L (46-116) Ammonia 29 umol/L (11-32) Total Creatine Kinase 8 U/L (26-308) L C-Reactive Protein, Quantitative 24.6 mg/dL (0.00-0.90) H Pro-B-Type Natriuretic Peptide 668 pg/mL (0-125) H Total Protein 4.6 G/DL (6.4-8.2) L Albumin 0.6 G/DL (3.4-5.0) L Globulin 4.0 g/dL Albumin/Globulin Ratio 0.2 (1.0-2.7) L Triglycerides Level 118 MG/DL (30-150) Cholesterol Level < 50 MG/DL (< 200) LDL Cholesterol 10 mg/dL (<100) HDL Cholesterol 6 MG/DL (40-60) L Cholesterol/HDL Ratio 8.3 (3.3-4.4) H Vitamin B12 Level 247 PG/ML (193-986) Folate 3.8 NG/ML (8.6-58.9) L Total Testosterone Pending Cortisol AM Sample 11.0 UG/DL Microbiology Date/Time Source Procedure Growth Status 06/12/18 19:15 Nasopharynx - Final Complete 06/12/18 19:15 Nasopharynx - Final Complete 06/12/18 21:45 Stool Clostridium difficile Toxin Assay - Final Complete Intake and Output 06/14/18 06/15/18 19:00 07:00 Intake Total 480 ml Output Total 350 ml 700 ml Balance 130 ml -700 ml Intake Oral 480 ml Output Urine Total 350 ml 700 ml # Bowel Movements 1 2 Objective PHYSICAL EXAMINATION: GENERAL: The patient is awake, alert, oriented, chronic ill-appearing, and cachectic. HEAD AND NECK: Pupils reactive to light. Anicteric. Has a strabismus with disconjugate gait. Neck was supple. No JVD. LUNGS: Good air entry. No wheezing or rales. HEART: Tachycardia; Reveals S1, S2. Regular rhythm. No gallops. ABDOMEN: Soft. Mildly distended. No rebound tenderness. No fluid shift. EXTREMITIES: No cyanosis, clubbing, or edema. Muscle atrophy with discoloration of the bilateral lower extremity with hyperpigmentation, and rashes of bilateral lower extremity was noted. 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 Motor is 5/5 in all extremities. Gait was not assessed due to the patient's status. Assessment/Plan Assessment/Plan ASSESSMENT: 1. Intractable nausea and vomiting. 2. Severe protein-calorie malnutrition. 3. Hyponatremia. 4. History of HIV/AIDS. 5. Kaposi sarcoma. 6. Castleman syndrome. 7. History of hepatitis B and C positive. 8. Anemia of chronic disease. 9. Thrombocytopenia. 10. Tachycardia 11. Clostridium difficile PLAN: 1. Admit the patient to monitored unit. 2. We will follow up with Dr. Mobley from Infectious Disease consultation and Dr. Hester from Pulmonary Critical Care. 3. Monitor laboratory. 4. IV hydration. 5. Code status is Full Code. 6. Follow up with broad-spectrum antibiotic with Zosyn. 7. Monitor culture. 8. Anti-emetic medication with Zofran. 9. Resume home medication. 10. ?dehydration due to nausea and diarrhea?-cardiology consult-Dr Howe 11. Oral vanco per ID 12. Patient refusing bone marrow vs lymph node biopsy for castleman's dis-see onc note Adam Padron MD Jun 15, 2018 19:03
--- NOTE | 2018-06-15 19:26 | NUR ---
NURSE NOTES: Report received from TRES Andino. Pt is in stable condition and resting comfortably in bed. PRBC infusing to RFA 24G. Bed in the lowest position, bed brakes engaged, side rails up x3, and call light within reach. Will continue to monitor.
[2018-06-16] VITALS: BP 109/68
[2018-06-16 04:00] VITALS: BP 103/59
[2018-06-16] MEDS: Morphine Sulfate 4mg/ml Inj (IV USE ONLY) IVP PRN ×3 (05:02→20:39)
[2018-06-16] MEDS: NS w/KCl 20mEq 1,000 ML IV SCH (05:02)
[2018-06-16 07:14] LABS: HEMATOCRIT 22.6 % (42.0-52.0); HEMOGLOBIN 7.5 G/DL (14.2-18.0); MEAN CORPUSCULAR VOLUME 80 FL (80-99); PLATELET COUNT 34 K/UL (150-450); RED BLOOD COUNT 2.84 M/UL (4.70-6.10); RED CELL DISTRIBUTION WIDTH 19.9 % (11.6-14.8); WHITE BLOOD COUNT 4.6 K/UL (4.8-10.8)
--- NOTE | 2018-06-16 07:17 | NUR ---
HAND-OFF: Report given to TRES Andino. Plan of care endorsed.
[2018-06-16 07:24] LABS: ANION GAP 3 mmol/L (5-15); BLOOD UREA NITROGEN 19 mg/dL (7-18); CALCIUM 6.6 MG/DL (8.5-10.1); CARBON DIOXIDE 24 MMOL/L (21-32); CHLORIDE 100 MMOL/L (98-107); CREATININE 1.3 MG/DL (0.55-1.30); PHOSPHORUS 2.4 MG/DL (2.5-4.9); POTASSIUM 4.1 MMOL/L (3.5-5.1); SODIUM 127 MMOL/L (136-145)
--- NOTE | 2018-06-16 07:25 | NUR ---
NURSE NOTES: Pt received from TRES Kelley alert and oriented x4 with no acute s/s of distress. IV site asymptomatic and patent. Bed in lowest position, call light and belongings within reach.
[2018-06-16 08:00] VITALS: BP 112/71
[2018-06-16] MEDS: Lactobacillus-GG tablet ORAL SCH ×3 (08:52→17:42)
[2018-06-16] MEDS: Vancomycin oral 125mg/2.5ml ORAL SCH ×6 (08:52→20:38)
[2018-06-16] MEDS: Dronabinol 2.5mg Cap ORAL SCH ×3 (08:52→17:42)
[2018-06-16] MEDS ORDERED: Tigecycline 50 MG in NS 110 ML IVPB SCH (09:00)
--- NOTE | 2018-06-16 09:48 | NUR ---
NURSE NOTES: RN left message with Dr. Aguiar regarding Sodium level of 127. Currently awaiting callback.
[2018-06-16 10:08] LABS: ALANINE AMINOTRANSFERASE 9 U/L (12-78); ALBUMIN 0.6 G/DL (3.4-5.0); ALKALINE PHOSPHATASE 66 U/L (46-116); ASPARTATE AMINO TRANSFERASE 35 U/L (15-37); BILIRUBIN,DIRECT 0.1 MG/DL (0.0-0.3); BILIRUBIN,TOTAL 0.4 MG/DL (0.2-1.0)
--- NOTE | 2018-06-16 10:28 | NUR ---
RD ASSESSMENT & RECOMMENDATIONS SEE CARE ACTIVITY FOR COMPLETE ASSESSMENT DAILY ESTIMATED NEEDS: Needs based on CA, sepsis, HIV/57kg 30-40 kcals/kg 6969-9246 total kcals 1-2 g protein/kg 57-114 g total protein 25-30 mL/kg 0117-8805 total fluid mLs NUTRITION DIAGNOSIS: * Increased kcal/prot intake needs R/T catabolic dx, underweight status, possible recent wt loss as evidenced by dx of Kaposi's sarcoma, h/o HIV, low BMI per guidelines w/ possible significant wt loss of 10lbs/7.4% in 1 month. CURRENT DIET:REGULAR PO DIET RECOMMENDATIONS: REGULAR diet as tolerated ADDITIONAL RECOMMENDATIONS: * Calibrated bedscale wt or standing wt for accurate CBW -underweight, possible recent wt loss * Monitor PO intake and tolerance- c/o N/V/D upon adm * Monitor lytes daily, replete as needed (low mag and phos) * Ensure Enlive once daily for now -> observed 5 unopened/barely touched Ensure bottles @ bedside.
--- NOTE | 2018-06-16 10:29 | GI Progress Note ---
Assessment/Plan Problems: (1) Protein-calorie malnutrition, severe ICD Codes: E43 - Unspecified severe protein-calorie malnutrition SNOMED: 993732935, 492841081, 432679311 (2) Cyclic vomiting syndrome ICD Codes: G43.A0 - Cyclical vomiting, not intractable SNOMED: 74418557 (3) Nausea & vomiting ICD Codes: R11.2 - Nausea with vomiting, unspecified SNOMED: 50323956 (4) Diarrhea ICD Codes: R19.7 - Diarrhea, unspecified SNOMED: 60720261 (5) Kaposi disease ICD Codes: Q82.1 - Xeroderma pigmentosum SNOMED: 66231322 (6) Anemia ICD Codes: D64.9 - Anemia, unspecified SNOMED: 959412093 (7) generalized weakness, kaposi sarcoma Status: stable, unchanged Status Narrative Discussed with Dr. Grande Assessment/Plan on marinol with good response push PO vanco fu ID fu H&H transfuse if hgb below 7 titrate bowel regime supportive care The patient was seen and examined at bedside and all new and available data was reviewed in the patients chart. I agree with the above findings, impression and plan. (Patient seen earlier today. Signature stamp does not reflect patient encounter time.). - Michael Grande MD Subjective Subjective Generalized weakness Objective Last 24 Hour Vital Signs Date Time Temp Pulse Resp B/P (MAP) Pulse Ox O2 Delivery O2 Flow Rate FiO2 06/16/18 05:32 97.9 06/16/18 04:00 132 06/16/18 04:00 97.9 129 18 103/59 (74) 96 06/16/18 01:07 98.5 06/16/18 00:00 101.7 138 18 109/68 (82) 100 06/16/18 00:00 133 06/15/18 21:00 Room Air 06/15/18 20:00 99.5 128 20 102/67 (79) 98 06/15/18 20:00 133 06/15/18 16:00 132 06/15/18 16:00 99.5 133 20 111/60 (77) 96 06/15/18 12:00 99.2 148 20 105/60 (75) 100 06/15/18 12:00 150 Intake and Output 06/15/18 06/16/18 18:59 06:59 Intake Total 480 ml Output Total 600 ml 300 ml Balance -120 ml -300 ml Intake Oral 480 ml Output Urine Total 600 ml 300 ml # Bowel Movements 2 3 Laboratory Tests Test 06/16/18 06:05 White Blood Count 4.6 K/UL (4.8-10.8) L Red Blood Count 2.84 M/UL (4.70-6.10) L Hemoglobin 7.5 G/DL (14.2-18.0) L Hematocrit 22.6 % (42.0-52.0) L Mean Corpuscular Volume 80 FL (80-99) Mean Corpuscular Hemoglobin 26.3 PG (27.0-31.0) L Mean Corpuscular Hemoglobin Concent 33.0 G/DL (32.0-36.0) Red Cell Distribution Width 19.9 % (11.6-14.8) H Platelet Count 34 K/UL (150-450) L Mean Platelet Volume 6.4 FL (6.5-10.1) L Neutrophils (%) (Auto) % (45.0-75.0) Lymphocytes (%) (Auto) % (20.0-45.0) Monocytes (%) (Auto) % (1.0-10.0) Eosinophils (%) (Auto) % (0.0-3.0) Basophils (%) (Auto) % (0.0-2.0) Neutrophils % (Manual) Pending Lymphocytes % (Manual) Pending Platelet Estimate Pending Platelet Morphology Pending Sodium Level 127 MMOL/L (136-145) L Potassium Level 4.1 MMOL/L (3.5-5.1) Chloride Level 100 MMOL/L (98-107) Carbon Dioxide Level 24 MMOL/L (21-32) Anion Gap 3 mmol/L (5-15) L Blood Urea Nitrogen 19 mg/dL (7-18) H Creatinine 1.3 MG/DL (0.55-1.30) Estimat Glomerular Filtration Rate > 60 mL/min (>60) Glucose Level 97 MG/DL (74-106) Osmolality 272 mOsm/kg (297-317) L Uric Acid 3.8 MG/DL (2.6-7.2) Calcium Level 6.6 MG/DL (8.5-10.1) L Phosphorus Level 2.4 MG/DL (2.5-4.9) L Total Bilirubin 0.4 MG/DL (0.2-1.0) Direct Bilirubin 0.1 MG/DL (0.0-0.3) Aspartate Amino Transf (AST/SGOT) 35 U/L (15-37) Alanine Aminotransferase (ALT/SGPT) 9 U/L (12-78) L Alkaline Phosphatase 66 U/L (46-116) Total Protein 4.9 G/DL (6.4-8.2) L Albumin 0.6 G/DL (3.4-5.0) L Height (Feet): 6 Height (Inches): 0.00 Weight (Pounds): 125 General Appearance: WD/WN, no apparent distress, alert, thin Cardiovascular: normal rate Respiratory/Chest: normal breath sounds, no respiratory distress Abdominal Exam: normal bowel sounds, non tender, soft Extremities: non-tender Simeon Fall NP Jun 16, 2018 10:29
--- NOTE | 2018-06-16 11:52 | Pulmonology Progress Note ---
Assessment/Plan Problems: (1) Anemia (2) Severe sepsis (3) HIV disease (4) ATN (acute tubular necrosis) (5) Kaposi disease (6) Cyclic vomiting syndrome (7) Protein-calorie malnutrition, severe (8) Lymphadenopathy Assessment/Plan Hem better watch Na, iv abx Cdiff still positive prbc when hem less than 7 check cultures on HIV meds f/u ID recommendations Subjective ROS Limited/Unobtainable: No Constitutional: Reports: no symptoms Respiratory: Reports: no symptoms Allergies: Coded Allergies: No Known Allergies (Unverified , 10/21/17) Objective Last 24 Hour Vital Signs Date Time Temp Pulse Resp B/P (MAP) Pulse Ox O2 Delivery O2 Flow Rate FiO2 06/16/18 09:00 Room Air 06/16/18 08:00 98.1 117 18 112/71 (85) 98 06/16/18 05:32 97.9 06/16/18 04:00 132 06/16/18 04:00 97.9 129 18 103/59 (74) 96 06/16/18 01:07 98.5 06/16/18 00:00 101.7 138 18 109/68 (82) 100 06/16/18 00:00 133 06/15/18 21:00 Room Air 06/15/18 20:00 99.5 128 20 102/67 (79) 98 06/15/18 20:00 133 06/15/18 16:00 132 06/15/18 16:00 99.5 133 20 111/60 (77) 96 06/15/18 12:00 99.2 148 20 105/60 (75) 100 06/15/18 12:00 150 Intake and Output 06/15/18 06/16/18 18:59 06:59 Intake Total 480 ml Output Total 600 ml 300 ml Balance -120 ml -300 ml Intake Oral 480 ml Output Urine Total 600 ml 300 ml # Bowel Movements 2 3 Objective General Appearance: WD/WN HEENT: normocephalic, atraumatic Respiratory/Chest: chest wall non-tender, crackles/rales Cardiovascular: normal peripheral pulses, no arrhythmia Abdomen: normal bowel sounds, soft, non tender Genitourinary: normal external genitalia Extremities: no clubbing Skin: no rash, no ulcers 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/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 Laboratory Tests 06/16/18 06:05: White Blood Count 4.6L, Red Blood Count 2.84L, Hemoglobin 7.5L, Hematocrit 22.6L , Mean Corpuscular Volume 80, Mean Corpuscular Hemoglobin 26.3L, Mean Corpuscular Hemoglobin Concent 33.0, Red Cell Distribution Width 19.9H, Platelet Count 34L, Mean Platelet Volume 6.4L, Neutrophils (%) (Auto) , Lymphocytes (%) (Auto) , Monocytes (%) (Auto) , Eosinophils (%) (Auto) , Basophils (%) (Auto) , Differential Total Cells Counted 100, Neutrophils % ( Manual) 70, Lymphocytes % (Manual) 20, Monocytes % (Manual) 8, Eosinophils % ( Manual) 2, Basophils % (Manual) 0, Band Neutrophils 0, Platelet Estimate DecreasedL, Platelet Morphology Normal, Hypochromasia 2+, Anisocytosis 3+, Spherocytes 1+, Sodium Level 127L, Potassium Level 4.1, Chloride Level 100, Carbon Dioxide Level 24, Anion Gap 3L, Blood Urea Nitrogen 19H, Creatinine 1.3, Estimat Glomerular Filtration Rate > 60, Glucose Level 97, Osmolality 272L, Uric Acid 3.8, Calcium Level 6.6L, Phosphorus Level 2.4L, Total Bilirubin 0.4, Direct Bilirubin 0.1, Aspartate Amino Transf (AST/SGOT) 35, Alanine Aminotransferase (ALT/SGPT) 9L, Alkaline Phosphatase 66, Total Protein 4.9L, Albumin 0.6L Current Medications Medications (Trade) Dose Ordered Sig/Yessica Route PRN Reason Start Time Stop Time Status Last Admin Dose Admin Acetaminophen (Tylenol) 650 mg Q4H PRN ORAL fever 06/12/18 09:30 07/12/18 09:29 06/16/18 00:37 Dextrose (Dextrose 50%) 25 ml Q30M PRN IV Hypoglycemia 06/12/18 09:30 07/12/18 09:29 Dextrose (Dextrose 50%) 50 ml Q30M PRN IV Hypoglycemia 06/12/18 09:30 07/12/18 09:29 Diphenhydramine HCl (Benadryl) 25 mg Q6H PRN ORAL Itching/Pruritis 06/12/18 09:30 07/12/18 09:29 Dronabinol (Marinol) 2.5 mg TID ORAL 06/15/18 13:00 07/13/18 17:59 06/16/18 08:52 Folic Acid (Folate) 5 mg DAILY ORAL 06/15/18 11:15 07/15/18 11:14 06/16/18 08:52 Lactobacillus Acidophilus (Culturelle) 1 tab THREE TIMES A DAY ORAL 06/14/18 18:00 07/14/18 17:59 06/16/18 08:52 Lorazepam (Ativan 2mg/ml 1ml) 1 mg Q4H PRN IV agitation 06/12/18 09:30 06/19/18 09:29 Mirtazapine (Remeron) 15 mg BEDTIME ORAL 06/12/18 21:00 07/12/18 20:59 06/15/18 20:14 Morphine Sulfate (Morphine Sulfate) 4 mg Q4H PRN IVP severe Pain (Pain Scale 7-10) 06/14/18 20:30 06/19/18 09:29 06/16/18 05:02 Nitroglycerin (Ntg) 0.4 mg Q5M X 3 DOSES PRN SL Prn Chest Pain 06/12/18 09:30 07/12/18 09:29 Ondansetron HCl (Zofran) 4 mg Q6H PRN IVP Nausea & Vomiting 06/12/18 09:30 07/12/18 09:29 06/15/18 09:32 Pantoprazole (Protonix) 40 mg EVERY 12 HOURS ORAL 06/14/18 21:00 07/14/18 20:59 06/16/18 08:52 Patient Own Medication (Patient's Own Med) 1 ea DAILY ORAL 06/13/18 15:30 07/13/18 15:29 06/16/18 08:52 Patient Own Medication (Patient's Own Med) 1 ea DAILY ORAL 06/13/18 15:30 07/13/18 15:29 06/16/18 08:52 Promethazine HCl (Phenergan) 25 mg Q6H PRN IM REFRACTORY N/V 06/12/18 09:30 07/12/18 09:29 Sodium Chloride 1,000 ml @ 50 mls/hr Q20H IV 06/14/18 17:00 07/14/18 16:59 06/16/18 05:02 Temazepam (Restoril) 15 mg HSPRN PRN ORAL Insomnia 06/12/18 09:30 06/19/18 09:29 Vancomycin HCl (Firvanq) 125 mg FOUR TIMES A DAY ORAL 06/13/18 09:00 06/20/18 08:59 06/15/18 20:15 Ya Hester MD Jun 16, 2018 11:52
[2018-06-16 12:00] VITALS: BP 103/67
--- NOTE | 2018-06-16 12:01 | NUR ---
NURSE NOTES: Pt refused two Vanco doses in the AM, informed of risks and benefits and mechanism of action of medication but pt stated that "my tongue feels raw and irritated from it and I don't like the feel of it in my mouth." Informed Dr. Mobley.
--- NOTE | 2018-06-16 12:22 | Nephrology Progress Note ---
Assessment/Plan Problem List: (1) Hyponatremia (2) Kaposi disease (3) HIV disease (4) Anemia (5) Hepatitis B (6) Hepatitis C (7) C. difficile colitis (8) Malnutrition Assessment HypoNatremia , etiology ? will comment after urine studies and blood test results available Intractable nausea and vomiting. Severe protein-calorie malnutrition. History of HIV/AIDS. Kaposi sarcoma. Sepsis Anemia, PanCytopenia C diff Hep B and Hep C Plan trial of 3% saline and Lasix continue per consultants Per orders Subjective ROS Limited/Unobtainable: No Constitutional: Reports: malaise, weakness Objective Objective Last 24 Hour Vital Signs Date Time Temp Pulse Resp B/P (MAP) Pulse Ox O2 Delivery O2 Flow Rate FiO2 06/16/18 09:00 Room Air 06/16/18 08:00 98.1 117 18 112/71 (85) 98 06/16/18 05:32 97.9 06/16/18 04:00 132 06/16/18 04:00 97.9 129 18 103/59 (74) 96 06/16/18 01:07 98.5 06/16/18 00:00 101.7 138 18 109/68 (82) 100 06/16/18 00:00 133 06/15/18 21:00 Room Air 06/15/18 20:00 99.5 128 20 102/67 (79) 98 06/15/18 20:00 133 06/15/18 16:00 132 06/15/18 16:00 99.5 133 20 111/60 (77) 96 Intake and Output 06/15/18 06/16/18 18:59 06:59 Intake Total 480 ml Output Total 600 ml 300 ml Balance -120 ml -300 ml Intake Oral 480 ml Output Urine Total 600 ml 300 ml # Bowel Movements 2 3 Laboratory Tests 06/16/18 06:05: White Blood Count 4.6L, Red Blood Count 2.84L, Hemoglobin 7.5L, Hematocrit 22.6L , Mean Corpuscular Volume 80, Mean Corpuscular Hemoglobin 26.3L, Mean Corpuscular Hemoglobin Concent 33.0, Red Cell Distribution Width 19.9H, Platelet Count 34L, Mean Platelet Volume 6.4L, Neutrophils (%) (Auto) , Lymphocytes (%) (Auto) , Monocytes (%) (Auto) , Eosinophils (%) (Auto) , Basophils (%) (Auto) , Differential Total Cells Counted 100, Neutrophils % ( Manual) 70, Lymphocytes % (Manual) 20, Monocytes % (Manual) 8, Eosinophils % ( Manual) 2, Basophils % (Manual) 0, Band Neutrophils 0, Platelet Estimate DecreasedL, Platelet Morphology Normal, Hypochromasia 2+, Anisocytosis 3+, Spherocytes 1+, Sodium Level 127L, Potassium Level 4.1, Chloride Level 100, Carbon Dioxide Level 24, Anion Gap 3L, Blood Urea Nitrogen 19H, Creatinine 1.3, Estimat Glomerular Filtration Rate > 60, Glucose Level 97, Osmolality 272L, Uric Acid 3.8, Calcium Level 6.6L, Phosphorus Level 2.4L, Total Bilirubin 0.4, Direct Bilirubin 0.1, Aspartate Amino Transf (AST/SGOT) 35, Alanine Aminotransferase (ALT/SGPT) 9L, Alkaline Phosphatase 66, Total Protein 4.9L, Albumin 0.6L Height (Feet): 6 Height (Inches): 0.00 Weight (Pounds): 125 General Appearance: no apparent distress, lethargic Respiratory/Chest: decreased breath sounds Abdomen: distended Adam Aguiar MD Jun 16, 2018 12:22
[2018-06-16] MEDS ORDERED: NaCl 3% 500ml 500 ML IV ONE (13:00)
--- NOTE | 2018-06-16 15:05 | NUR ---
NURSE NOTES: Dr. Mobley returned message and stated that Dr. Mendoza is covering this week. RN left message with Dr. Mendoza.
--- NOTE | 2018-06-16 15:07 | Cardiac Electrophysiology PN ---
Assessment/Plan Assessment/Plan 1. Sinus tachycardia, due to likely sepsis, anemia and pain. Ruled out for NC. EKG showed no acute ischemic changes. There is no evidence of atrial fibrillation or supraventricular tachycardia. Echo EF 75%. S/P transfuaion 2. History of hypertension. Hold off on antihypertensive agents. 3. 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 5. History of pancreatitis and hepatitis B and C positive. 6. Severe anemia. Hb 9 to 6.4. S/P transfusion 7. Hyponatremia on 3% saline DW RN Subjective Subjective No CP or SOB. In sinus tach 110-120. On iv fluid. s/p 2 UNITS OF Blood transfusion Objective Last 24 Hour Vital Signs Date Time Temp Pulse Resp B/P (MAP) Pulse Ox O2 Delivery O2 Flow Rate FiO2 06/16/18 12:00 99.1 128 20 103/67 (79) 96 06/16/18 12:00 137 06/16/18 09:00 Room Air 06/16/18 08:00 98.1 117 18 112/71 (85) 98 06/16/18 08:00 119 06/16/18 05:32 97.9 06/16/18 04:00 132 06/16/18 04:00 97.9 129 18 103/59 (74) 96 06/16/18 01:07 98.5 06/16/18 00:00 101.7 138 18 109/68 (82) 100 06/16/18 00:00 133 06/15/18 21:00 Room Air 06/15/18 20:00 99.5 128 20 102/67 (79) 98 06/15/18 20:00 133 06/15/18 16:00 132 06/15/18 16:00 99.5 133 20 111/60 (77) 96 Intake and Output 06/15/18 06/16/18 19:00 07:00 Intake Total 480 ml Output Total 600 ml 300 ml Balance -120 ml -300 ml Intake Oral 480 ml Output Urine Total 600 ml 300 ml # Bowel Movements 2 3 Laboratory Tests Test 06/16/18 06:05 White Blood Count 4.6 K/UL (4.8-10.8) L Red Blood Count 2.84 M/UL (4.70-6.10) L Hemoglobin 7.5 G/DL (14.2-18.0) L Hematocrit 22.6 % (42.0-52.0) L Mean Corpuscular Volume 80 FL (80-99) Mean Corpuscular Hemoglobin 26.3 PG (27.0-31.0) L Mean Corpuscular Hemoglobin Concent 33.0 G/DL (32.0-36.0) Red Cell Distribution Width 19.9 % (11.6-14.8) H Platelet Count 34 K/UL (150-450) L Mean Platelet Volume 6.4 FL (6.5-10.1) L Neutrophils (%) (Auto) % (45.0-75.0) Lymphocytes (%) (Auto) % (20.0-45.0) Monocytes (%) (Auto) % (1.0-10.0) Eosinophils (%) (Auto) % (0.0-3.0) Basophils (%) (Auto) % (0.0-2.0) Differential Total Cells Counted 100 Neutrophils % (Manual) 70 % (45-75) Lymphocytes % (Manual) 20 % (20-45) Monocytes % (Manual) 8 % (1-10) Eosinophils % (Manual) 2 % (0-3) Basophils % (Manual) 0 % (0-2) Band Neutrophils 0 % (0-8) Platelet Estimate Decreased L Platelet Morphology Normal Hypochromasia 2+ Anisocytosis 3+ Spherocytes 1+ Sodium Level 127 MMOL/L (136-145) L Potassium Level 4.1 MMOL/L (3.5-5.1) Chloride Level 100 MMOL/L (98-107) Carbon Dioxide Level 24 MMOL/L (21-32) Anion Gap 3 mmol/L (5-15) L Blood Urea Nitrogen 19 mg/dL (7-18) H Creatinine 1.3 MG/DL (0.55-1.30) Estimat Glomerular Filtration Rate > 60 mL/min (>60) Glucose Level 97 MG/DL (74-106) Osmolality 272 mOsm/kg (297-317) L Uric Acid 3.8 MG/DL (2.6-7.2) Calcium Level 6.6 MG/DL (8.5-10.1) L Phosphorus Level 2.4 MG/DL (2.5-4.9) L Total Bilirubin 0.4 MG/DL (0.2-1.0) Direct Bilirubin 0.1 MG/DL (0.0-0.3) Aspartate Amino Transf (AST/SGOT) 35 U/L (15-37) Alanine Aminotransferase (ALT/SGPT) 9 U/L (12-78) L Alkaline Phosphatase 66 U/L (46-116) Total Protein 4.9 G/DL (6.4-8.2) L Albumin 0.6 G/DL (3.4-5.0) L Objective HEAD AND NECK: no JVD. LUNGS: Decreased breath sounds. CARDIOVASCULAR: Tachycardic, S1, S2 with no gallop. ABDOMEN: Soft. EXTREMITIES: Chronic skin changes and edema. Toney Howe MD Jun 16, 2018 15:07
[2018-06-16 16:00] VITALS: BP 109/66
--- NOTE | 2018-06-16 17:19 | General Progress Note ---
Assessment/Plan Status: stable, unchanged Assessment/Plan: Assessment and Recs # Pancytopenia, worsening, with severe diffuse lymphadenopathy worsened since 2018, in the setting Castlemans's disease/KS - outpatinent chemo has been received as recently 09/2017 or so. Hx of HIV, CD4 count very low. He has a very poor memory, says was treated at [facility] S/P Chemo ending 07/17/17. Last PET 08/12 - show stable/not worsening lymphadenopathy. Has very extensive disease on ct scan lympahdenopathy noted throughout, final results of axilla lymphadenopathy biopsy on 05/25/18, and FINAL results from prior admission are nondiagnostic --> I talked with him regarding getting potentially another biopsy (bulky lymph node v bone marrow biopsy) he has thus far refused --> IL-6 was 54 in the past indicating active disease, needs close followup with heme outpatient, would again recommend first a biopsy and further recommendations after procedure --> HHV-8 lab request ordered --> inflammatory makers are elevated which can be c/w flare but are fairly non- specific --> imaging is ordered as well --> outpatient f/u as well for futher therapy prn --> treat underlying HIV as per ID service # Anemia of chronic disease -- workup has been reviewed --> esr elevated, as is crp --> transfuse if hgb <7 # Anemia of folic acid deficiency --> start patient on folic acid 1mg po daily, continue given low levels # DVT hx that was diagnosed at outpatient hospital --> inpatient venous duplex is negative for thromboembolism, therefore DOES not require anticoagulants --> have discussed this with patients and patient's mother # Sepsis - PNA, [place], other infection, TB? --> on HIV meds, abx as needed # HIV - On Tivicay and Truvada and Bactrim, CD4 count 64 --> VL pending, CD4 count ordered <100 --> IL-6 is 51 # REENA cr 1.2-->1.1 The timing of this note does not necessarily reflect the time of the patient was seen. Greatly appreciate consultation. Subjective HEENT: Denies: no symptoms, eye pain, blurred vision, tearing, double vision, ear pain, ear discharge, nose pain, nose congestion, throat pain, throat swelling, mouth pain, mouth swelling, other Cardiovascular: Denies: no symptoms, chest pain, edema, irregular heart rate, lightheadedness, palpitations, syncope, other Respiratory: Denies: no symptoms, cough, orthopnea, shortness of breath, SOB with excertion, SOB at rest, sputum, stridor, wheezing, other Gastrointestinal/Abdominal: Denies: no symptoms, abdomen distended, abdominal pain, black stools, tarry stools, blood in stool, constipated, diarrhea, difficulty swallowing, nausea, poor appetite, poor fluid intake, rectal bleeding , vomiting, other Genitourinary: Denies: no symptoms, burning, discharge, frequency, flank pain, hematuria, incontinence, pain, urgency, other Neurologic/Psychiatric: Denies: no symptoms, anxiety, depressed, emotional problems, headache, numbness, paresthesia, pre-existing deficit, seizure, tingling, tremors, weakness, other Endocrine: Denies: no symptoms, excessive sweating, flushing, intolerance to cold, intolerance to heat, increased hunger, increased thirst, increased urine, unexplained weight gain, unexplained weight loss, other Hematologic/Lymphatic: Denies: no symptoms, anemia, easy bleeding, easy bruising, other Allergies: Coded Allergies: No Known Allergies (Unverified , 10/21/17) Subjective 06/15: to get 2 units pf prbc today, seen by pulm, he still doesn't want a bone marrow biopsy 06/16: feeling better, still doesn't want to do a biopsy, says wants to watch and wait Objective Last 24 Hour Vital Signs Date Time Temp Pulse Resp B/P (MAP) Pulse Ox O2 Delivery O2 Flow Rate FiO2 06/16/18 16:00 99.5 135 18 109/66 (80) 97 06/16/18 12:00 99.1 128 20 103/67 (79) 96 06/16/18 12:00 137 06/16/18 09:00 Room Air 06/16/18 08:00 98.1 117 18 112/71 (85) 98 06/16/18 08:00 119 06/16/18 05:32 97.9 06/16/18 04:00 132 06/16/18 04:00 97.9 129 18 103/59 (74) 96 06/16/18 01:07 98.5 06/16/18 00:00 101.7 138 18 109/68 (82) 100 06/16/18 00:00 133 06/15/18 21:00 Room Air 06/15/18 20:00 99.5 128 20 102/67 (79) 98 06/15/18 20:00 133 Intake and Output 06/15/18 06/16/18 19:00 07:00 Intake Total 480 ml Output Total 600 ml 300 ml Balance -120 ml -300 ml Intake Oral 480 ml Output Urine Total 600 ml 300 ml # Bowel Movements 2 3 Laboratory Tests 06/16/18 06:05: White Blood Count 4.6L, Red Blood Count 2.84L, Hemoglobin 7.5L, Hematocrit 22.6L , Mean Corpuscular Volume 80, Mean Corpuscular Hemoglobin 26.3L, Mean Corpuscular Hemoglobin Concent 33.0, Red Cell Distribution Width 19.9H, Platelet Count 34L, Mean Platelet Volume 6.4L, Neutrophils (%) (Auto) , Lymphocytes (%) (Auto) , Monocytes (%) (Auto) , Eosinophils (%) (Auto) , Basophils (%) (Auto) , Differential Total Cells Counted 100, Neutrophils % ( Manual) 70, Lymphocytes % (Manual) 20, Monocytes % (Manual) 8, Eosinophils % ( Manual) 2, Basophils % (Manual) 0, Band Neutrophils 0, Platelet Estimate DecreasedL, Platelet Morphology Normal, Hypochromasia 2+, Anisocytosis 3+, Spherocytes 1+, Sodium Level 127L, Potassium Level 4.1, Chloride Level 100, Carbon Dioxide Level 24, Anion Gap 3L, Blood Urea Nitrogen 19H, Creatinine 1.3, Estimat Glomerular Filtration Rate > 60, Glucose Level 97, Osmolality 272L, Uric Acid 3.8, Calcium Level 6.6L, Phosphorus Level 2.4L, Total Bilirubin 0.4, Direct Bilirubin 0.1, Aspartate Amino Transf (AST/SGOT) 35, Alanine Aminotransferase (ALT/SGPT) 9L, Alkaline Phosphatase 66, Total Protein 4.9L, Albumin 0.6L Height (Feet): 6 Height (Inches): 0.00 Weight (Pounds): 125 Objective Physical Exam: Vitals: reviewed General Appearance: NAD HEENT: normocephalic, atraumatic Neck: non-tender, normal alignment Respiratory/Chest: normal breath sounds bilaterally Cardiovascular/Chest: normal peripheral pulses, normal rate Abdomen: normal bowel sounds, soft, not Extremities: normal range of motion Jean Bingham MD Jun 16, 2018 17:19
--- NOTE | 2018-06-16 17:28 | Infectious Diseases Prog Note ---
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 Recommend repeat/follow- up -Abd US: Cholelithiasis. Minimal pericholecystic fluid. Correlate clinically for cholecystitis. Thrombocytopenia Anemia CKD Diffuse lymphadenopathy- Ddx: CMV disease (ie colitis), Diffuse MAC, recurrente Castleman, HIV related, lymphoma -05/18 s/p L axillary lymph node biopsy -path fragments of benign lymph node with pronounced polytypic plasmacytosis; focally + HHV8. 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 -05/16/18 CT chest: Mediastinal, axillary, and supraclavicular lymphadenopathy , enlarged compared to the prior CT of the chest. Largest left axillary node measures 3.4 x 2.4 cm. Largest supraclavicular node on the left measures 3.8 x 2.8 cm. Largest mediastinal nodes include a 2.2 x 1.6 cm pretracheal node and a 2.3 x 1.6 cm subcarinal node. Small layering right pleural effusion with fluid in the minor fissure. Kasie-bronchovascular groundglass haziness and nodularity in the right lower lobe. Scattered paraseptal emphysematous changes, predominantly in the upper lung zones. -05/16/18 CT abd/p: Diffuse edema and haziness throughout the mesenteric root. Not significantly changed compared to the visualized portions of the mesenteric root in the prior CT of the chest dated 10/22/17. Mesenteric, retroperitoneal, and inguinal lymphadenopathy. Largest retroperitoneal node measures 3.1 x 2.5 x 2.0 cm to left of the IVC (series 8 image 56, series 10 image 23). Largest left inguinal left node measures 2.9 x 2.5 cm (series 8 image 90). Mild fluid distention and air-fluid levels throughout the colon, which may suggest mild colitis and/or diarrheal disease. No evidence of bowel obstruction. Cholelithiasis without gallbladder wall thickening or ductal dilatation. Scattered subcentimeter hypodensities throughout the spleen, possibly tiny simple cysts. Subcentimeter simple-appearing left renal cortical cysts. Mild urinary bladder wall thickening, most likely related to underdistention. -CT head: . Opacification of the right maxillary sinus, right frontal sinus , and mucosal thickening throughout the ethmoid air cells and left maxillary sinus, suggestive of sinusitis. Partial opacification of the inferior posterior aspect of the left mastoid air cells, suggesting small left mastoid effusion. 04/2018- Cr Ag , T spot, CMV PCR, CMV IgM neg - 10/22/17- CT show reticular opacity and significant lymphadenopathy 10/23/17 - CT abd/pel Lymphadenopathy, Enlarged Pancrease mild B/L hydronephrosis -Blasto, Histo, CrAg neg 11/21/16 - Quantiferon negative (Out Side lab) Recent Colitis -04/2018 Cdiff neg -stool cx normal phi - O and P neg x3 HIV/AIDS- questionable compliance to ARV (dx 1999)- on Truvada and Dolutegravir -04/2018 HIV VL p, Cd4 64 (9.1%); VL 100 ?decrease due to non compliance, however low viremia (will expect higher viremia if non compliance) -10/2017 HIV VL ND, CD4 87 (12.4%) -09/01/17 - CD4 192 and VL - ND (Out Side labs) -no hx of resistance ; previously on Truvada, Reyataz and Norvir -Has been above 200 in the past. Came down with Chemo hx pancreatitis 10/2017 hx of Kaposi's sarcoma/Castleman's disease s/p chemotherapy - S/P Chemo ending 07/17/17 Last PET 08/12/17 - show stable/not worsening lymphadenopathy Hep C+ -VL ND hx of Chronic Hep B, VL <15 09/01/17 RPR, GC/CL : negative hx of DVT Plan: -Continue PO Vancomycin #2/10-14 ( pt refusing ) ,add Tygacil empirically for now ( probable Hosp acquired infection on the setting of CDiff) Bactrim for PCP PPC - 06/13 SP Zosyn #2 -06/12 SP Flagyl x1 - 05/21/18 SP Ceftriaxone #5 and Flagyl #7 for colitis -05/15/18 SP empiric IV Vancomycin #4 and switch empiric Zosyn #3 to Ceftriaxone and Flagyl -05/16/18 SP Tamiflu #4 - 05/12 SP Cefepime x1 -f/u cx -Monitor CBC/CMP, temperatures -Heme onc c/s -Will need excisional biopsy and bone marrow biopsy- high suspicion for recurrence of Castleman's disease -f/u HIV VL and genotype, Hep B PCR, -f/u CXR 2 v am -f/u AFB bcx, sp cx, PCP DFA -aspiration precautions Subjective Allergies: Coded Allergies: No Known Allergies (Unverified , 10/21/17) Subjective Diarrhea ++ pt agreed with taking oral Vanco Objective Vital Signs Last 24 Hour Vital Signs Date Time Temp Pulse Resp B/P (MAP) Pulse Ox O2 Delivery O2 Flow Rate FiO2 06/16/18 16:00 99.5 135 18 109/66 (80) 97 06/16/18 16:00 139 06/16/18 12:00 99.1 128 20 103/67 (79) 96 06/16/18 12:00 137 06/16/18 09:00 Room Air 06/16/18 08:00 98.1 117 18 112/71 (85) 98 06/16/18 08:00 119 06/16/18 05:32 97.9 06/16/18 04:00 132 06/16/18 04:00 97.9 129 18 103/59 (74) 96 06/16/18 01:07 98.5 06/16/18 00:00 101.7 138 18 109/68 (82) 100 06/16/18 00:00 133 06/15/18 21:00 Room Air 06/15/18 20:00 99.5 128 20 102/67 (79) 98 06/15/18 20:00 133 Height (Feet): 6 Height (Inches): 0.00 Weight (Pounds): 125 Laboratory Tests Test 06/16/18 06:05 White Blood Count 4.6 K/UL (4.8-10.8) L Red Blood Count 2.84 M/UL (4.70-6.10) L Hemoglobin 7.5 G/DL (14.2-18.0) L Hematocrit 22.6 % (42.0-52.0) L Mean Corpuscular Volume 80 FL (80-99) Mean Corpuscular Hemoglobin 26.3 PG (27.0-31.0) L Mean Corpuscular Hemoglobin Concent 33.0 G/DL (32.0-36.0) Red Cell Distribution Width 19.9 % (11.6-14.8) H Platelet Count 34 K/UL (150-450) L Mean Platelet Volume 6.4 FL (6.5-10.1) L Neutrophils (%) (Auto) % (45.0-75.0) Lymphocytes (%) (Auto) % (20.0-45.0) Monocytes (%) (Auto) % (1.0-10.0) Eosinophils (%) (Auto) % (0.0-3.0) Basophils (%) (Auto) % (0.0-2.0) Differential Total Cells Counted 100 Neutrophils % (Manual) 70 % (45-75) Lymphocytes % (Manual) 20 % (20-45) Monocytes % (Manual) 8 % (1-10) Eosinophils % (Manual) 2 % (0-3) Basophils % (Manual) 0 % (0-2) Band Neutrophils 0 % (0-8) Platelet Estimate Decreased L Platelet Morphology Normal Hypochromasia 2+ Anisocytosis 3+ Spherocytes 1+ Sodium Level 127 MMOL/L (136-145) L Potassium Level 4.1 MMOL/L (3.5-5.1) Chloride Level 100 MMOL/L (98-107) Carbon Dioxide Level 24 MMOL/L (21-32) Anion Gap 3 mmol/L (5-15) L Blood Urea Nitrogen 19 mg/dL (7-18) H Creatinine 1.3 MG/DL (0.55-1.30) Estimat Glomerular Filtration Rate > 60 mL/min (>60) Glucose Level 97 MG/DL (74-106) Osmolality 272 mOsm/kg (297-317) L Uric Acid 3.8 MG/DL (2.6-7.2) Calcium Level 6.6 MG/DL (8.5-10.1) L Phosphorus Level 2.4 MG/DL (2.5-4.9) L Total Bilirubin 0.4 MG/DL (0.2-1.0) Direct Bilirubin 0.1 MG/DL (0.0-0.3) Aspartate Amino Transf (AST/SGOT) 35 U/L (15-37) Alanine Aminotransferase (ALT/SGPT) 9 U/L (12-78) L Alkaline Phosphatase 66 U/L (46-116) Total Protein 4.9 G/DL (6.4-8.2) L Albumin 0.6 G/DL (3.4-5.0) L Current Medications Medications (Trade) Dose Ordered Sig/Yessica Route PRN Reason Start Time Stop Time Status Last Admin Dose Admin Acetaminophen (Tylenol) 650 mg Q4H PRN ORAL fever 06/12/18 09:30 07/12/18 09:29 06/16/18 00:37 Dextrose (Dextrose 50%) 25 ml Q30M PRN IV Hypoglycemia 06/12/18 09:30 07/12/18 09:29 Dextrose (Dextrose 50%) 50 ml Q30M PRN IV Hypoglycemia 06/12/18 09:30 07/12/18 09:29 Diphenhydramine HCl (Benadryl) 25 mg Q6H PRN ORAL Itching/Pruritis 06/12/18 09:30 07/12/18 09:29 Dronabinol (Marinol) 2.5 mg TID ORAL 06/15/18 13:00 07/13/18 17:59 06/16/18 13:21 Folic Acid (Folate) 5 mg DAILY ORAL 06/15/18 11:15 07/15/18 11:14 06/16/18 08:52 Furosemide (Lasix) 10 mg EVERY 6 HOURS IV 06/16/18 12:30 07/16/18 12:29 06/16/18 13:32 Lactobacillus Acidophilus (Culturelle) 1 tab THREE TIMES A DAY ORAL 06/14/18 18:00 07/14/18 17:59 06/16/18 13:21 Lorazepam (Ativan 2mg/ml 1ml) 1 mg Q4H PRN IV agitation 06/12/18 09:30 06/19/18 09:29 Mirtazapine (Remeron) 15 mg BEDTIME ORAL 06/12/18 21:00 07/12/18 20:59 06/15/18 20:14 Morphine Sulfate (Morphine Sulfate) 4 mg Q4H PRN IVP severe Pain (Pain Scale 7-10) 06/14/18 20:30 06/19/18 09:29 06/16/18 13:21 Nitroglycerin (Ntg) 0.4 mg Q5M X 3 DOSES PRN SL Prn Chest Pain 06/12/18 09:30 07/12/18 09:29 Ondansetron HCl (Zofran) 4 mg Q6H PRN IVP Nausea & Vomiting 06/12/18 09:30 07/12/18 09:29 06/15/18 09:32 Pantoprazole (Protonix) 40 mg EVERY 12 HOURS ORAL 06/14/18 21:00 07/14/18 20:59 06/16/18 08:52 Patient Own Medication (Patient's Own Med) 1 ea DAILY ORAL 06/13/18 15:30 07/13/18 15:29 06/16/18 08:52 Patient Own Medication (Patient's Own Med) 1 ea DAILY ORAL 06/13/18 15:30 07/13/18 15:29 06/16/18 08:52 Promethazine HCl (Phenergan) 25 mg Q6H PRN IM REFRACTORY N/V 06/12/18 09:30 07/12/18 09:29 Sodium Chloride 500 ml @ 30 mls/hr ONCE ONCE IV 06/16/18 13:00 06/17/18 05:39 06/16/18 13:21 Temazepam (Restoril) 15 mg HSPRN PRN ORAL Insomnia 06/12/18 09:30 06/19/18 09:29 Vancomycin HCl (Firvanq) 125 mg FOUR TIMES A DAY ORAL 06/13/18 09:00 06/20/18 08:59 06/15/18 20:15 Jez Mendoza MD Jun 16, 2018 17:28
--- NOTE | 2018-06-16 17:57 | NUR ---
NURSE NOTES: Dr. Mendoza assessed pt at bedside and discussed necessity for Vancomycin antibiotic. After further education, pt agreed to take Vanco oral.
--- NOTE | 2018-06-16 19:16 | Internal Med Progress Note ---
Subjective Date of Service: Jun 16, 2018 Physician Name Adam Padron Attending Physician Alberto Gtz MD Current Medications Medications (Trade) Dose Ordered Sig/Yessica Route PRN Reason Start Time Stop Time Status Last Admin Dose Admin Acetaminophen (Tylenol) 650 mg Q4H PRN ORAL fever 06/12/18 09:30 07/12/18 09:29 06/16/18 00:37 Dextrose (Dextrose 50%) 25 ml Q30M PRN IV Hypoglycemia 06/12/18 09:30 07/12/18 09:29 Dextrose (Dextrose 50%) 50 ml Q30M PRN IV Hypoglycemia 06/12/18 09:30 07/12/18 09:29 Diphenhydramine HCl (Benadryl) 25 mg Q6H PRN ORAL Itching/Pruritis 06/12/18 09:30 07/12/18 09:29 Dronabinol (Marinol) 2.5 mg TID ORAL 06/15/18 13:00 07/13/18 17:59 06/16/18 17:42 Folic Acid (Folate) 5 mg DAILY ORAL 06/15/18 11:15 07/15/18 11:14 06/16/18 08:52 Furosemide (Lasix) 10 mg EVERY 6 HOURS IV 06/16/18 12:30 07/16/18 12:29 06/16/18 17:42 Lactobacillus Acidophilus (Culturelle) 1 tab THREE TIMES A DAY ORAL 06/14/18 18:00 07/14/18 17:59 06/16/18 17:42 Lorazepam (Ativan 2mg/ml 1ml) 1 mg Q4H PRN IV agitation 06/12/18 09:30 06/19/18 09:29 Mirtazapine (Remeron) 15 mg BEDTIME ORAL 06/12/18 21:00 07/12/18 20:59 06/15/18 20:14 Morphine Sulfate (Morphine Sulfate) 4 mg Q4H PRN IVP severe Pain (Pain Scale 7-10) 06/14/18 20:30 06/19/18 09:29 06/16/18 13:21 Nitroglycerin (Ntg) 0.4 mg Q5M X 3 DOSES PRN SL Prn Chest Pain 06/12/18 09:30 07/12/18 09:29 Ondansetron HCl (Zofran) 4 mg Q6H PRN IVP Nausea & Vomiting 06/12/18 09:30 07/12/18 09:29 06/15/18 09:32 Pantoprazole (Protonix) 40 mg EVERY 12 HOURS ORAL 06/14/18 21:00 07/14/18 20:59 06/16/18 08:52 Patient Own Medication (Patient's Own Med) 1 ea DAILY ORAL 06/13/18 15:30 07/13/18 15:29 06/16/18 08:52 Patient Own Medication (Patient's Own Med) 1 ea DAILY ORAL 06/13/18 15:30 07/13/18 15:29 06/16/18 08:52 Promethazine HCl (Phenergan) 25 mg Q6H PRN IM REFRACTORY N/V 06/12/18 09:30 07/12/18 09:29 Sodium Chloride 500 ml @ 30 mls/hr ONCE ONCE IV 06/16/18 13:00 06/17/18 05:39 06/16/18 13:21 Temazepam (Restoril) 15 mg HSPRN PRN ORAL Insomnia 06/12/18 09:30 06/19/18 09:29 Tigecycline 100 mg/Sodium Chloride 110 ml @ 110 mls/hr ONCE ONCE IVPB 06/16/18 20:00 06/16/18 20:59 Tigecycline 50 mg/ Sodium Chloride 110 ml @ 220 mls/hr EVERY 12 HOURS IVPB 06/16/18 09:00 06/23/18 08:59 Trimethoprim/ Sulfamethoxazole (Bactrim Single Strength) 1 tab DAILY ORAL 06/17/18 09:00 06/24/18 08:59 Vancomycin HCl (Firvanq) 125 mg FOUR TIMES A DAY ORAL 06/13/18 09:00 06/20/18 08:59 06/16/18 17:54 Allergies: Coded Allergies: No Known Allergies (Unverified , 10/21/17) ROS Limited/Unobtainable: No Constitutional: Reports: no symptoms HEENT: Reports: no symptoms Cardiovascular: Reports: no symptoms Respiratory: Reports: no symptoms Gastrointestinal/Abdominal: Reports: no symptoms Genitourinary: Reports: no symptoms Neurologic/Psychiatric: Reports: no symptoms Subjective 37 YO M with history of HIV, kaposi's Sarcoma and Castleman Dis admitted with nausea, vomiting and diarrhea. Now C. Diff. Cover for Int Christopher-Dr Gtz. Objective Last Vital Signs Date Time Temp Pulse Resp B/P (MAP) Pulse Ox O2 Delivery O2 Flow Rate FiO2 06/16/18 16:00 99.5 135 18 109/66 (80) 97 06/16/18 09:00 Room Air Laboratory Tests Test 06/16/18 06:05 White Blood Count 4.6 K/UL (4.8-10.8) L Red Blood Count 2.84 M/UL (4.70-6.10) L Hemoglobin 7.5 G/DL (14.2-18.0) L Hematocrit 22.6 % (42.0-52.0) L Mean Corpuscular Volume 80 FL (80-99) Mean Corpuscular Hemoglobin 26.3 PG (27.0-31.0) L Mean Corpuscular Hemoglobin Concent 33.0 G/DL (32.0-36.0) Red Cell Distribution Width 19.9 % (11.6-14.8) H Platelet Count 34 K/UL (150-450) L Mean Platelet Volume 6.4 FL (6.5-10.1) L Neutrophils (%) (Auto) % (45.0-75.0) Lymphocytes (%) (Auto) % (20.0-45.0) Monocytes (%) (Auto) % (1.0-10.0) Eosinophils (%) (Auto) % (0.0-3.0) Basophils (%) (Auto) % (0.0-2.0) Differential Total Cells Counted 100 Neutrophils % (Manual) 70 % (45-75) Lymphocytes % (Manual) 20 % (20-45) Monocytes % (Manual) 8 % (1-10) Eosinophils % (Manual) 2 % (0-3) Basophils % (Manual) 0 % (0-2) Band Neutrophils 0 % (0-8) Platelet Estimate Decreased L Platelet Morphology Normal Hypochromasia 2+ Anisocytosis 3+ Spherocytes 1+ Sodium Level 127 MMOL/L (136-145) L Potassium Level 4.1 MMOL/L (3.5-5.1) Chloride Level 100 MMOL/L (98-107) Carbon Dioxide Level 24 MMOL/L (21-32) Anion Gap 3 mmol/L (5-15) L Blood Urea Nitrogen 19 mg/dL (7-18) H Creatinine 1.3 MG/DL (0.55-1.30) Estimat Glomerular Filtration Rate > 60 mL/min (>60) Glucose Level 97 MG/DL (74-106) Osmolality 272 mOsm/kg (297-317) L Uric Acid 3.8 MG/DL (2.6-7.2) Calcium Level 6.6 MG/DL (8.5-10.1) L Phosphorus Level 2.4 MG/DL (2.5-4.9) L Total Bilirubin 0.4 MG/DL (0.2-1.0) Direct Bilirubin 0.1 MG/DL (0.0-0.3) Aspartate Amino Transf (AST/SGOT) 35 U/L (15-37) Alanine Aminotransferase (ALT/SGPT) 9 U/L (12-78) L Alkaline Phosphatase 66 U/L (46-116) Total Protein 4.9 G/DL (6.4-8.2) L Albumin 0.6 G/DL (3.4-5.0) L Intake and Output 06/15/18 06/16/18 19:00 07:00 Intake Total 480 ml Output Total 600 ml 300 ml Balance -120 ml -300 ml Intake Oral 480 ml Output Urine Total 600 ml 300 ml # Bowel Movements 2 3 Objective PHYSICAL EXAMINATION: GENERAL: The patient is awake, alert, oriented, chronic ill-appearing, and cachectic. HEAD AND NECK: Pupils reactive to light. Anicteric. Has a strabismus with disconjugate gait. Neck was supple. No JVD. LUNGS: Good air entry. No wheezing or rales. HEART: Tachycardia; Reveals S1, S2. Regular rhythm. No gallops. ABDOMEN: Soft. Mildly distended. No rebound tenderness. No fluid shift. EXTREMITIES: No cyanosis, clubbing, or edema. Muscle atrophy with discoloration of the bilateral lower extremity with hyperpigmentation, and rashes of bilateral lower extremity was noted. NEUROLOGIC: TECHNOLOGY APPLICATIONS CONSULTANT II through XII grossly intact. Motor is 5/5 in all extremities. Gait was not assessed due to the patient's status. Assessment/Plan Assessment/Plan ASSESSMENT: 1. Intractable nausea and vomiting. 2. Severe protein-calorie malnutrition. 3. Hyponatremia. 4. History of HIV/AIDS. 5. Kaposi sarcoma. 6. Castleman syndrome. 7. History of hepatitis B and C positive. 8. Anemia of chronic disease. 9. Thrombocytopenia. 10. Tachycardia 11. Clostridium difficile 12. Anemia PLAN: 1. Admit the patient to monitored unit. 2. We will follow up with Dr. Mobley from Infectious Disease consultation and Dr. Hester from Pulmonary Critical Care. 3. Monitor laboratory. 4. IV hydration. 5. Code status is Full Code. 6. Follow up with broad-spectrum antibiotic with Zosyn. 7. Monitor culture. 8. Anti-emetic medication with Zofran. 9. Resume home medication. 10. ?dehydration due to nausea and diarrhea?-cardiology consult-Dr Howe 11. Oral vanco per ID 12. Patient refusing bone marrow vs lymph node biopsy for castleman's dis-see onc note 13. S/P Transfusion 2 units PRBC 06/15/18 Adam Padron MD Jun 16, 2018 19:15
--- NOTE | 2018-06-16 19:20 | NUR ---
HAND-OFF: Report given to TRES Kelley. No acute s/s of distress noted.
--- NOTE | 2018-06-16 19:27 | NUR ---
NURSE NOTES: Report received from TRES Andino. Pt is in stable condition and resting comfortably in bed. Bed in the lowest position, bed brakes engaged, side rails up x3, and call light within reach. Will continue to monitor.
[2018-06-16 20:00] VITALS: BP 127/77
[2018-06-16] MEDS ORDERED: Tigecycline 100 MG in NS 110 ML IVPB ONE (20:00)
[2018-06-17] VITALS: BP 104/56
[2018-06-17] MEDS: Morphine Sulfate 4mg/ml Inj (IV USE ONLY) IVP PRN ×4 (01:38→21:20)
[2018-06-17 04:00] VITALS: BP 110/66
[2018-06-17 06:37] LABS: HEMATOCRIT 22.4 % (42.0-52.0); HEMOGLOBIN 7.4 G/DL (14.2-18.0); MEAN CORPUSCULAR VOLUME 79 FL (80-99); PLATELET COUNT 25 K/UL (150-450); RED BLOOD COUNT 2.83 M/UL (4.70-6.10); RED CELL DISTRIBUTION WIDTH 19.3 % (11.6-14.8); WHITE BLOOD COUNT 4.7 K/UL (4.8-10.8)
--- NOTE | 2018-06-17 06:57 | Cardiac Electrophysiology PN ---
Assessment/Plan Assessment/Plan 1. Sinus tachycardia, due to sepsis, anemia and pain. Ruled out for OH. EKG showed no acute ischemic changes. There is no evidence of atrial fibrillation or supraventricular tachycardia. Echo EF 75%. S/P transfuaion 2. History of hypertension. Hold off on antihypertensive agents. 3. 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 5. History of pancreatitis and hepatitis B and C positive. 6. Severe anemia. Hb 9 to 6.4. S/P transfusion 7. Hyponatremia Na 127, on 3% saline DW RN Subjective Subjective No CP or SOB. In sinus tach 120s. On iv fluid. Objective Last 24 Hour Vital Signs Date Time Temp Pulse Resp B/P (MAP) Pulse Ox O2 Delivery O2 Flow Rate FiO2 06/17/18 06:35 100.8 06/17/18 04:00 99.0 146 18 110/66 (81) 98 06/17/18 04:00 127 06/17/18 01:13 100.8 06/17/18 00:00 100.8 145 19 104/56 (72) 97 06/17/18 00:00 139 06/16/18 21:00 Room Air 06/16/18 20:00 98.0 145 19 127/77 (94) 95 06/16/18 20:00 139 06/16/18 16:00 99.5 135 18 109/66 (80) 97 06/16/18 16:00 139 06/16/18 12:00 99.1 128 20 103/67 (79) 96 06/16/18 12:00 137 06/16/18 09:00 Room Air 06/16/18 08:00 98.1 117 18 112/71 (85) 98 06/16/18 08:00 119 Intake and Output 06/16/18 06/17/18 19:00 07:00 Intake Total 810 ml Output Total 750 ml 900 ml Balance 60 ml -900 ml Intake Oral 360 ml IV Total 450 ml Output Urine Total 750 ml 900 ml # Voids 3 # Bowel Movements 1 2 Laboratory Tests Test 06/17/18 06:07 White Blood Count 4.7 K/UL (4.8-10.8) L Red Blood Count 2.83 M/UL (4.70-6.10) L Hemoglobin 7.4 G/DL (14.2-18.0) L Hematocrit 22.4 % (42.0-52.0) L Mean Corpuscular Volume 79 FL (80-99) L Mean Corpuscular Hemoglobin 26.0 PG (27.0-31.0) L Mean Corpuscular Hemoglobin Concent 32.8 G/DL (32.0-36.0) Red Cell Distribution Width 19.3 % (11.6-14.8) H Platelet Count 25 K/UL (150-450) L Mean Platelet Volume 7.3 FL (6.5-10.1) Neutrophils (%) (Auto) % (45.0-75.0) Lymphocytes (%) (Auto) % (20.0-45.0) Monocytes (%) (Auto) % (1.0-10.0) Eosinophils (%) (Auto) % (0.0-3.0) Basophils (%) (Auto) % (0.0-2.0) Neutrophils % (Manual) Pending Lymphocytes % (Manual) Pending Platelet Estimate Pending Platelet Morphology Pending Sodium Level Pending Potassium Level Pending Chloride Level Pending Carbon Dioxide Level Pending Blood Urea Nitrogen Pending Creatinine Pending Estimat Glomerular Filtration Rate Pending Glucose Level Pending Uric Acid Pending Calcium Level Pending Phosphorus Level Pending Magnesium Level Pending Total Bilirubin Pending Aspartate Amino Transf (AST/SGOT) Pending Alanine Aminotransferase (ALT/SGPT) Pending Alkaline Phosphatase Pending Total Protein Pending Albumin Pending Globulin Pending Objective HEAD AND NECK: no JVD. LUNGS: Decreased breath sounds. CARDIOVASCULAR: Tachycardic, S1, S2 with no gallop. ABDOMEN: Soft. EXTREMITIES: Chronic skin changes and edema. Toney Howe MD June 17, 2018 06:57
[2018-06-17 07:17] LABS: ALANINE AMINOTRANSFERASE 15 U/L (12-78); ALBUMIN < 0.6 G/DL (3.4-5.0); ALKALINE PHOSPHATASE 74 U/L (46-116); ANION GAP 4 mmol/L (5-15); ASPARTATE AMINO TRANSFERASE 42 U/L (15-37); BILIRUBIN,TOTAL 0.4 MG/DL (0.2-1.0); BLOOD UREA NITROGEN 27 mg/dL (7-18); CALCIUM 6.7 MG/DL (8.5-10.1); CARBON DIOXIDE 25 MMOL/L (21-32); CHLORIDE 104 MMOL/L (98-107); CREATININE 1.3 MG/DL (0.55-1.30); PHOSPHORUS 3.3 MG/DL (2.5-4.9); POTASSIUM 4.5 MMOL/L (3.5-5.1); SODIUM 133 MMOL/L (136-145)
--- NOTE | 2018-06-17 07:33 | NUR ---
HAND-OFF: Report given to TRES Smith. Plan of care endorsed.
--- NOTE | 2018-06-17 07:34 | NUR ---
NURSE NOTES: Received report from TRES Kelley. The patient is resting on bed without acute distress or shortness of breath. The patient's bed is in the lowest position, call light in reach, and fall precaution reinforced. Will continue plan of care.
[2018-06-17 08:00] VITALS: BP 112/68
[2018-06-17] MEDS: Tigecycline 50 MG in NS 110 ML IVPB SCH ×2 (08:50→21:17)
[2018-06-17] MEDS: Vancomycin oral 125mg/2.5ml ORAL SCH ×4 (08:51→21:17)
[2018-06-17] MEDS: Bactrim SS Tab ORAL SCH (08:51)
[2018-06-17] MEDS: Lactobacillus-GG tablet ORAL SCH ×3 (08:51→17:45)
[2018-06-17] MEDS: Dronabinol 2.5mg Cap ORAL SCH ×3 (08:53→17:46)
--- NOTE | 2018-06-17 10:16 | GI Progress Note ---
Assessment/Plan Problems: (1) Protein-calorie malnutrition, severe ICD Codes: E43 - Unspecified severe protein-calorie malnutrition SNOMED: 642564282, 880180090, 296254619 (2) Cyclic vomiting syndrome ICD Codes: G43.A0 - Cyclical vomiting, not intractable SNOMED: 27500140 (3) Nausea & vomiting ICD Codes: R11.2 - Nausea with vomiting, unspecified SNOMED: 66108805 (4) Diarrhea ICD Codes: R19.7 - Diarrhea, unspecified SNOMED: 72839270 (5) Kaposi disease ICD Codes: Q82.1 - Xeroderma pigmentosum SNOMED: 95470467 (6) Anemia ICD Codes: D64.9 - Anemia, unspecified SNOMED: 665153877 (7) generalized weakness, kaposi sarcoma Status: unchanged Status Narrative Discussed with Dr. Grande Assessment/Plan C. difficile positive on marinol with good response push PO vanco H2B fu ID fu H&H transfuse if hgb below 7 supportive care The patient was seen and examined at bedside and all new and available data was reviewed in the patients chart. I agree with the above findings, impression and plan. (Patient seen earlier today. Signature stamp does not reflect patient encounter time.). - Michael Grande MD Subjective Subjective Generalized weakness Objective Last 24 Hour Vital Signs Date Time Temp Pulse Resp B/P (MAP) Pulse Ox O2 Delivery O2 Flow Rate FiO2 06/17/18 08:00 97.2 131 20 112/68 (83) 99 06/17/18 06:35 100.8 06/17/18 04:00 99.0 146 18 110/66 (81) 98 06/17/18 04:00 127 06/17/18 01:13 100.8 06/17/18 00:00 100.8 145 19 104/56 (72) 97 06/17/18 00:00 139 06/16/18 21:00 Room Air 06/16/18 20:00 98.0 145 19 127/77 (94) 95 06/16/18 20:00 139 06/16/18 16:00 99.5 135 18 109/66 (80) 97 06/16/18 16:00 139 06/16/18 12:00 99.1 128 20 103/67 (79) 96 06/16/18 12:00 137 Intake and Output 06/16/18 06/17/18 18:59 06:59 Intake Total 810 ml Output Total 750 ml 900 ml Balance 60 ml -900 ml Intake Oral 360 ml IV Total 450 ml Output Urine Total 750 ml 900 ml # Voids 3 # Bowel Movements 1 2 Laboratory Tests Test 06/17/18 06:07 White Blood Count 4.7 K/UL (4.8-10.8) L Red Blood Count 2.83 M/UL (4.70-6.10) L Hemoglobin 7.4 G/DL (14.2-18.0) L Hematocrit 22.4 % (42.0-52.0) L Mean Corpuscular Volume 79 FL (80-99) L Mean Corpuscular Hemoglobin 26.0 PG (27.0-31.0) L Mean Corpuscular Hemoglobin Concent 32.8 G/DL (32.0-36.0) Red Cell Distribution Width 19.3 % (11.6-14.8) H Platelet Count 25 K/UL (150-450) L Mean Platelet Volume 7.3 FL (6.5-10.1) Neutrophils (%) (Auto) % (45.0-75.0) Lymphocytes (%) (Auto) % (20.0-45.0) Monocytes (%) (Auto) % (1.0-10.0) Eosinophils (%) (Auto) % (0.0-3.0) Basophils (%) (Auto) % (0.0-2.0) Differential Total Cells Counted 100 Neutrophils % (Manual) 63 % (45-75) Lymphocytes % (Manual) 29 % (20-45) Monocytes % (Manual) 7 % (1-10) Eosinophils % (Manual) 1 % (0-3) Basophils % (Manual) 0 % (0-2) Band Neutrophils 0 % (0-8) Platelet Estimate Decreased L Platelet Morphology Normal Hypochromasia 1+ Anisocytosis 2+ Microcytosis 1+ Sodium Level 133 MMOL/L (136-145) L Potassium Level 4.5 MMOL/L (3.5-5.1) Chloride Level 104 MMOL/L (98-107) Carbon Dioxide Level 25 MMOL/L (21-32) Anion Gap 4 mmol/L (5-15) L Blood Urea Nitrogen 27 mg/dL (7-18) H Creatinine 1.3 MG/DL (0.55-1.30) Estimat Glomerular Filtration Rate > 60 mL/min (>60) Glucose Level 97 MG/DL (74-106) Uric Acid 4.7 MG/DL (2.6-7.2) Calcium Level 6.7 MG/DL (8.5-10.1) L Phosphorus Level 3.3 MG/DL (2.5-4.9) Magnesium Level 1.7 MG/DL (1.8-2.4) L Total Bilirubin 0.4 MG/DL (0.2-1.0) Aspartate Amino Transf (AST/SGOT) 42 U/L (15-37) H Alanine Aminotransferase (ALT/SGPT) 15 U/L (12-78) Alkaline Phosphatase 74 U/L (46-116) Total Protein 4.9 G/DL (6.4-8.2) L Albumin < 0.6 G/DL (3.4-5.0) L Globulin g/dL Height (Feet): 6 Height (Inches): 0.00 Weight (Pounds): 147 General Appearance: WD/WN, no apparent distress, alert, thin Cardiovascular: normal rate Respiratory/Chest: normal breath sounds, no respiratory distress Abdominal Exam: normal bowel sounds, non tender, soft Extremities: non-tender Simeon Fall NP June 17, 2018 10:16
--- NOTE | 2018-06-17 10:49 | NUR ---
CASE MANAGEMENT:REVIEW 06/17/18 SI: SEPSIS. KAPOSI SARCOMA. ANEMIA 100.8 131 20 112/68 99% on ra H/H-7.4/22.4 PLT-25 MAG-1.7 IS: BACTRIM PO QD IV TIGECYCLINE Q12 IV LASIX Q6HRS : TELEMETRY STATUS DCP: FROM HOME
--- NOTE | 2018-06-17 11:27 | Pulmonology Progress Note ---
Assessment/Plan Problems: (1) Anemia (2) Severe sepsis (3) HIV disease (4) ATN (acute tubular necrosis) (5) Kaposi disease (6) Cyclic vomiting syndrome (7) Protein-calorie malnutrition, severe (8) Lymphadenopathy Assessment/Plan still febrile Hem better watch Na, iv abx Cdiff still positive prbc when hem less than 7 check cultures on HIV meds f/u ID recommendations Subjective ROS Limited/Unobtainable: No Constitutional: Reports: no symptoms HEENT: Repors: no symptoms Allergies: Coded Allergies: No Known Allergies (Unverified , 10/21/17) Objective Last 24 Hour Vital Signs Date Time Temp Pulse Resp B/P (MAP) Pulse Ox O2 Delivery O2 Flow Rate FiO2 06/17/18 09:00 Room Air 06/17/18 08:00 129 06/17/18 08:00 97.2 131 20 112/68 (83) 99 06/17/18 06:35 100.8 06/17/18 04:00 99.0 146 18 110/66 (81) 98 06/17/18 04:00 127 06/17/18 01:13 100.8 06/17/18 00:00 100.8 145 19 104/56 (72) 97 06/17/18 00:00 139 06/16/18 21:00 Room Air 06/16/18 20:00 98.0 145 19 127/77 (94) 95 06/16/18 20:00 139 06/16/18 16:00 99.5 135 18 109/66 (80) 97 06/16/18 16:00 139 06/16/18 12:00 99.1 128 20 103/67 (79) 96 06/16/18 12:00 137 Intake and Output 06/16/18 06/17/18 18:59 06:59 Intake Total 810 ml Output Total 750 ml 900 ml Balance 60 ml -900 ml Intake Oral 360 ml IV Total 450 ml Output Urine Total 750 ml 900 ml # Voids 3 # Bowel Movements 1 2 Objective General Appearance: WD/WN HEENT: normocephalic, atraumatic Respiratory/Chest: chest wall non-tender, crackles/rales Cardiovascular: normal peripheral pulses, no arrhythmia Abdomen: normal bowel sounds, soft, non tender Genitourinary: normal external genitalia Extremities: no clubbing Skin: no rash, no ulcers Neurologic/Psychiatric: auto cleaner II-XII grossly normal Laboratory Tests 06/17/18 06:07: White Blood Count 4.7L, Red Blood Count 2.83L, Hemoglobin 7.4L, Hematocrit 22.4L , Mean Corpuscular Volume 79L, Mean Corpuscular Hemoglobin 26.0L, Mean Corpuscular Hemoglobin Concent 32.8, Red Cell Distribution Width 19.3H, Platelet Count 25L, Mean Platelet Volume 7.3, Neutrophils (%) (Auto) , Lymphocytes (%) (Auto) , Monocytes (%) (Auto) , Eosinophils (%) (Auto) , Basophils (%) (Auto) , Differential Total Cells Counted 100, Neutrophils % ( Manual) 63, Lymphocytes % (Manual) 29, Monocytes % (Manual) 7, Eosinophils % ( Manual) 1, Basophils % (Manual) 0, Band Neutrophils 0, Platelet Estimate DecreasedL, Platelet Morphology Normal, Hypochromasia 1+, Anisocytosis 2+, Microcytosis 1+, Sodium Level 133L, Potassium Level 4.5, Chloride Level 104, Carbon Dioxide Level 25, Anion Gap 4L, Blood Urea Nitrogen 27H, Creatinine 1.3, Estimat Glomerular Filtration Rate > 60, Glucose Level 97, Uric Acid 4.7, Calcium Level 6.7L, Phosphorus Level 3.3, Magnesium Level 1.7L, Total Bilirubin 0.4, Aspartate Amino Transf (AST/SGOT) 42H, Alanine Aminotransferase (ALT/SGPT) 15, Alkaline Phosphatase 74, Total Protein 4.9L, Albumin < 0.6L, Globulin Current Medications Medications (Trade) Dose Ordered Sig/Yessica Route PRN Reason Start Time Stop Time Status Last Admin Dose Admin Acetaminophen (Tylenol) 650 mg Q4H PRN ORAL fever 06/12/18 09:30 07/12/18 09:29 06/17/18 00:43 Dextrose (Dextrose 50%) 25 ml Q30M PRN IV Hypoglycemia 06/12/18 09:30 07/12/18 09:29 Dextrose (Dextrose 50%) 50 ml Q30M PRN IV Hypoglycemia 06/12/18 09:30 07/12/18 09:29 Diphenhydramine HCl (Benadryl) 25 mg Q6H PRN ORAL Itching/Pruritis 06/12/18 09:30 07/12/18 09:29 Dronabinol (Marinol) 2.5 mg TID ORAL 06/15/18 13:00 07/13/18 17:59 06/17/18 08:53 Folic Acid (Folate) 5 mg DAILY ORAL 06/15/18 11:15 07/15/18 11:14 06/17/18 08:52 Furosemide (Lasix) 10 mg EVERY 6 HOURS IV 06/16/18 12:30 07/16/18 12:29 06/17/18 05:48 Lactobacillus Acidophilus (Culturelle) 1 tab THREE TIMES A DAY ORAL 06/14/18 18:00 07/14/18 17:59 06/17/18 08:51 Lorazepam (Ativan 2mg/ml 1ml) 1 mg Q4H PRN IV agitation 06/12/18 09:30 06/19/18 09:29 Magnesium Sulfate 100 ml @ 100 mls/hr Q1H IVPB 06/17/18 11:15 06/17/18 13:14 Mirtazapine (Remeron) 15 mg BEDTIME ORAL 06/12/18 21:00 07/12/18 20:59 06/16/18 20:39 Morphine Sulfate (Morphine Sulfate) 4 mg Q4H PRN IVP severe Pain (Pain Scale 7-10) 06/14/18 20:30 06/19/18 09:29 06/17/18 06:05 Nitroglycerin (Ntg) 0.4 mg Q5M X 3 DOSES PRN SL Prn Chest Pain 06/12/18 09:30 07/12/18 09:29 Ondansetron HCl (Zofran) 4 mg Q6H PRN IVP Nausea & Vomiting 06/12/18 09:30 07/12/18 09:29 06/15/18 09:32 Pantoprazole (Protonix) 40 mg EVERY 12 HOURS ORAL 06/14/18 21:00 07/14/18 20:59 06/17/18 08:52 Patient Own Medication (Patient's Own Med) 1 ea DAILY ORAL 06/13/18 15:30 07/13/18 15:29 06/17/18 08:52 Patient Own Medication (Patient's Own Med) 1 ea DAILY ORAL 06/13/18 15:30 07/13/18 15:29 06/17/18 08:52 Promethazine HCl (Phenergan) 25 mg Q6H PRN IM REFRACTORY N/V 06/12/18 09:30 07/12/18 09:29 Temazepam (Restoril) 15 mg HSPRN PRN ORAL Insomnia 06/12/18 09:30 06/19/18 09:29 Tigecycline 50 mg/ Sodium Chloride 110 ml @ 220 mls/hr EVERY 12 HOURS IVPB 06/17/18 09:00 06/24/18 08:59 06/17/18 08:50 Trimethoprim/ Sulfamethoxazole (Bactrim Single Strength) 1 tab DAILY ORAL 06/17/18 09:00 06/24/18 08:59 06/17/18 08:51 Vancomycin HCl (Firvanq) 125 mg FOUR TIMES A DAY ORAL 06/13/18 09:00 06/20/18 08:59 06/17/18 08:51 Ya Hester MD June 17, 2018 11:27
--- NOTE | 2018-06-17 11:45 | Internal Med Progress Note ---
Subjective Date of Service: June 17, 2018 Physician Name Adam Padron Attending Physician Alberto Gtz MD Current Medications Medications (Trade) Dose Ordered Sig/Yessica Route PRN Reason Start Time Stop Time Status Last Admin Dose Admin Acetaminophen (Tylenol) 650 mg Q4H PRN ORAL fever 06/12/18 09:30 07/12/18 09:29 06/17/18 00:43 Dextrose (Dextrose 50%) 25 ml Q30M PRN IV Hypoglycemia 06/12/18 09:30 07/12/18 09:29 Dextrose (Dextrose 50%) 50 ml Q30M PRN IV Hypoglycemia 06/12/18 09:30 07/12/18 09:29 Diphenhydramine HCl (Benadryl) 25 mg Q6H PRN ORAL Itching/Pruritis 06/12/18 09:30 07/12/18 09:29 Dronabinol (Marinol) 2.5 mg TID ORAL 06/15/18 13:00 07/13/18 17:59 06/17/18 08:53 Folic Acid (Folate) 5 mg DAILY ORAL 06/15/18 11:15 07/15/18 11:14 06/17/18 08:52 Furosemide (Lasix) 10 mg EVERY 6 HOURS IV 06/16/18 12:30 07/16/18 12:29 06/17/18 11:35 Lactobacillus Acidophilus (Culturelle) 1 tab THREE TIMES A DAY ORAL 06/14/18 18:00 07/14/18 17:59 06/17/18 08:51 Lorazepam (Ativan 2mg/ml 1ml) 1 mg Q4H PRN IV agitation 06/12/18 09:30 06/19/18 09:29 Magnesium Sulfate 100 ml @ 100 mls/hr Q1H IVPB 06/17/18 11:15 06/17/18 13:14 06/17/18 11:34 Mirtazapine (Remeron) 15 mg BEDTIME ORAL 06/12/18 21:00 07/12/18 20:59 06/16/18 20:39 Morphine Sulfate (Morphine Sulfate) 4 mg Q4H PRN IVP severe Pain (Pain Scale 7-10) 06/14/18 20:30 06/19/18 09:29 06/17/18 06:05 Nitroglycerin (Ntg) 0.4 mg Q5M X 3 DOSES PRN SL Prn Chest Pain 06/12/18 09:30 07/12/18 09:29 Ondansetron HCl (Zofran) 4 mg Q6H PRN IVP Nausea & Vomiting 06/12/18 09:30 07/12/18 09:29 06/15/18 09:32 Pantoprazole (Protonix) 40 mg EVERY 12 HOURS ORAL 06/14/18 21:00 07/14/18 20:59 06/17/18 08:52 Patient Own Medication (Patient's Own Med) 1 ea DAILY ORAL 06/13/18 15:30 07/13/18 15:29 06/17/18 08:52 Patient Own Medication (Patient's Own Med) 1 ea DAILY ORAL 06/13/18 15:30 07/13/18 15:29 06/17/18 08:52 Promethazine HCl (Phenergan) 25 mg Q6H PRN IM REFRACTORY N/V 06/12/18 09:30 07/12/18 09:29 Temazepam (Restoril) 15 mg HSPRN PRN ORAL Insomnia 06/12/18 09:30 06/19/18 09:29 Tigecycline 50 mg/ Sodium Chloride 110 ml @ 220 mls/hr EVERY 12 HOURS IVPB 06/17/18 09:00 06/24/18 08:59 06/17/18 08:50 Trimethoprim/ Sulfamethoxazole (Bactrim Single Strength) 1 tab DAILY ORAL 06/17/18 09:00 06/24/18 08:59 06/17/18 08:51 Vancomycin HCl (Firvanq) 125 mg FOUR TIMES A DAY ORAL 06/13/18 09:00 06/20/18 08:59 06/17/18 08:51 Allergies: Coded Allergies: No Known Allergies (Unverified , 10/21/17) ROS Limited/Unobtainable: No Constitutional: Reports: no symptoms HEENT: Reports: no symptoms Cardiovascular: Reports: no symptoms Respiratory: Reports: no symptoms Gastrointestinal/Abdominal: Reports: no symptoms Genitourinary: Reports: no symptoms Neurologic/Psychiatric: Reports: no symptoms Subjective 37 YO M with history of HIV, kaposi's Sarcoma and Castleman Dis admitted with nausea, vomiting and diarrhea. Now C. Diff. Cover for Int Med-Dr Gtz. Objective Last Vital Signs Date Time Temp Pulse Resp B/P (MAP) Pulse Ox O2 Delivery O2 Flow Rate FiO2 06/17/18 09:00 Room Air 06/17/18 08:00 129 06/17/18 08:00 97.2 20 112/68 (83) 99 Laboratory Tests Test 06/17/18 06:07 White Blood Count 4.7 K/UL (4.8-10.8) L Red Blood Count 2.83 M/UL (4.70-6.10) L Hemoglobin 7.4 G/DL (14.2-18.0) L Hematocrit 22.4 % (42.0-52.0) L Mean Corpuscular Volume 79 FL (80-99) L Mean Corpuscular Hemoglobin 26.0 PG (27.0-31.0) L Mean Corpuscular Hemoglobin Concent 32.8 G/DL (32.0-36.0) Red Cell Distribution Width 19.3 % (11.6-14.8) H Platelet Count 25 K/UL (150-450) L Mean Platelet Volume 7.3 FL (6.5-10.1) Neutrophils (%) (Auto) % (45.0-75.0) Lymphocytes (%) (Auto) % (20.0-45.0) Monocytes (%) (Auto) % (1.0-10.0) Eosinophils (%) (Auto) % (0.0-3.0) Basophils (%) (Auto) % (0.0-2.0) Differential Total Cells Counted 100 Neutrophils % (Manual) 63 % (45-75) Lymphocytes % (Manual) 29 % (20-45) Monocytes % (Manual) 7 % (1-10) Eosinophils % (Manual) 1 % (0-3) Basophils % (Manual) 0 % (0-2) Band Neutrophils 0 % (0-8) Platelet Estimate Decreased L Platelet Morphology Normal Hypochromasia 1+ Anisocytosis 2+ Microcytosis 1+ Sodium Level 133 MMOL/L (136-145) L Potassium Level 4.5 MMOL/L (3.5-5.1) Chloride Level 104 MMOL/L (98-107) Carbon Dioxide Level 25 MMOL/L (21-32) Anion Gap 4 mmol/L (5-15) L Blood Urea Nitrogen 27 mg/dL (7-18) H Creatinine 1.3 MG/DL (0.55-1.30) Estimat Glomerular Filtration Rate > 60 mL/min (>60) Glucose Level 97 MG/DL (74-106) Uric Acid 4.7 MG/DL (2.6-7.2) Calcium Level 6.7 MG/DL (8.5-10.1) L Phosphorus Level 3.3 MG/DL (2.5-4.9) Magnesium Level 1.7 MG/DL (1.8-2.4) L Total Bilirubin 0.4 MG/DL (0.2-1.0) Aspartate Amino Transf (AST/SGOT) 42 U/L (15-37) H Alanine Aminotransferase (ALT/SGPT) 15 U/L (12-78) Alkaline Phosphatase 74 U/L (46-116) Total Protein 4.9 G/DL (6.4-8.2) L Albumin < 0.6 G/DL (3.4-5.0) L Globulin g/dL Intake and Output 06/16/18 06/17/18 18:59 06:59 Intake Total 810 ml Output Total 750 ml 900 ml Balance 60 ml -900 ml Intake Oral 360 ml IV Total 450 ml Output Urine Total 750 ml 900 ml # Voids 3 # Bowel Movements 1 2 Objective PHYSICAL EXAMINATION: GENERAL: The patient is awake, alert, oriented, chronic ill-appearing, and cachectic. HEAD AND NECK: Pupils reactive to light. Anicteric. Has a strabismus with disconjugate gait. Neck was supple. No JVD. LUNGS: Good air entry. No wheezing or rales. HEART: Tachycardia; Reveals S1, S2. Regular rhythm. No gallops. ABDOMEN: Soft. Mildly distended. No rebound tenderness. No fluid shift. EXTREMITIES: No cyanosis, clubbing, or edema. Muscle atrophy with discoloration of the bilateral lower extremity with hyperpigmentation, and rashes of bilateral lower extremity was noted. NEUROLOGIC: FLAVOR TANK TENDER II through XII grossly intact. Motor is 5/5 in all extremities. Gait was not assessed due to the patient's status. Assessment/Plan Assessment/Plan ASSESSMENT: 1. Intractable nausea and vomiting. 2. Severe protein-calorie malnutrition. 3. Hyponatremia. 4. History of HIV/AIDS. 5. Kaposi sarcoma. 6. Castleman syndrome. 7. History of hepatitis B and C positive. 8. Anemia of chronic disease. 9. Thrombocytopenia. 10. Tachycardia 11. Clostridium difficile 12. Anemia PLAN: 1. Admit the patient to monitored unit. 2. We will follow up with Dr. Mobley from Infectious Disease consultation and Dr. Hester from Pulmonary Critical Care. 3. Monitor laboratory. 4. IV hydration. 5. Code status is Full Code. 6. Follow up with broad-spectrum antibiotic with Zosyn. 7. Monitor culture. 8. Anti-emetic medication with Zofran. 9. Resume home medication. 10. ?dehydration due to nausea and diarrhea?-cardiology consult-Dr Howe 11. Oral vanco per ID 12. Patient refusing bone marrow vs lymph node biopsy for castleman's dis-see onc note 13. S/P Transfusion 2 units PRBC 06/15/18 Adam Padron MD June 17, 2018 11:45
[2018-06-17 12:00] VITALS: BP 116/65
--- NOTE | 2018-06-17 12:37 | Nephrology Progress Note ---
Assessment/Plan Problem List: (1) Hyponatremia (2) Kaposi disease (3) HIV disease (4) Anemia (5) Hepatitis B (6) Hepatitis C (7) C. difficile colitis (8) Malnutrition Assessment HypoNatremia , etiology ? will comment after urine studies and blood test results available Intractable nausea and vomiting. Severe protein-calorie malnutrition. History of HIV/AIDS. Kaposi sarcoma. Sepsis Anemia, PanCytopenia C diff Hep B and Hep C Plan trial of 3% saline and Lasix as needed continue per consultants Per orders Subjective Constitutional: Reports: malaise, weakness Objective Objective Last 24 Hour Vital Signs Date Time Temp Pulse Resp B/P (MAP) Pulse Ox O2 Delivery O2 Flow Rate FiO2 06/17/18 09:00 Room Air 06/17/18 08:00 129 06/17/18 08:00 97.2 131 20 112/68 (83) 99 06/17/18 06:35 100.8 06/17/18 04:00 99.0 146 18 110/66 (81) 98 06/17/18 04:00 127 06/17/18 01:13 100.8 06/17/18 00:00 100.8 145 19 104/56 (72) 97 06/17/18 00:00 139 06/16/18 21:00 Room Air 06/16/18 20:00 98.0 145 19 127/77 (94) 95 06/16/18 20:00 139 06/16/18 16:00 99.5 135 18 109/66 (80) 97 06/16/18 16:00 139 Intake and Output 06/16/18 06/17/18 18:59 06:59 Intake Total 810 ml Output Total 750 ml 900 ml Balance 60 ml -900 ml Intake Oral 360 ml IV Total 450 ml Output Urine Total 750 ml 900 ml # Voids 3 # Bowel Movements 1 2 Laboratory Tests 06/17/18 06:07: White Blood Count 4.7L, Red Blood Count 2.83L, Hemoglobin 7.4L, Hematocrit 22.4L , Mean Corpuscular Volume 79L, Mean Corpuscular Hemoglobin 26.0L, Mean Corpuscular Hemoglobin Concent 32.8, Red Cell Distribution Width 19.3H, Platelet Count 25L, Mean Platelet Volume 7.3, Neutrophils (%) (Auto) , Lymphocytes (%) (Auto) , Monocytes (%) (Auto) , Eosinophils (%) (Auto) , Basophils (%) (Auto) , Differential Total Cells Counted 100, Neutrophils % ( Manual) 63, Lymphocytes % (Manual) 29, Monocytes % (Manual) 7, Eosinophils % ( Manual) 1, Basophils % (Manual) 0, Band Neutrophils 0, Platelet Estimate DecreasedL, Platelet Morphology Normal, Hypochromasia 1+, Anisocytosis 2+, Microcytosis 1+, Sodium Level 133L, Potassium Level 4.5, Chloride Level 104, Carbon Dioxide Level 25, Anion Gap 4L, Blood Urea Nitrogen 27H, Creatinine 1.3, Estimat Glomerular Filtration Rate > 60, Glucose Level 97, Uric Acid 4.7, Calcium Level 6.7L, Phosphorus Level 3.3, Magnesium Level 1.7L, Total Bilirubin 0.4, Aspartate Amino Transf (AST/SGOT) 42H, Alanine Aminotransferase (ALT/SGPT) 15, Alkaline Phosphatase 74, Total Protein 4.9L, Albumin < 0.6L, Globulin Height (Feet): 6 Height (Inches): 0.00 Weight (Pounds): 147 General Appearance: no apparent distress, lethargic Cardiovascular: tachycardia Respiratory/Chest: decreased breath sounds Abdomen: distended Adam Aguiar MD June 17, 2018 12:36
--- NOTE | 2018-06-17 14:25 | General Progress Note ---
Assessment/Plan Status: unchanged Assessment/Plan: Assessment and Recs # Pancytopenia, worsening, with severe diffuse lymphadenopathy worsened since 2018, in the setting Castlemans's disease/KS - outpatinent chemo has been received as recently 09/2017 or so. Hx of HIV, CD4 count very low. He has a very poor memory, says was treated at [facility] S/P Chemo ending 07/17/17. Last PET 08/12 - show stable/not worsening lymphadenopathy. Has very extensive disease on ct scan lympahdenopathy noted throughout, final results of axilla lymphadenopathy biopsy on 05/25/18, and FINAL results from prior admission are nondiagnostic --> I talked with him regarding getting potentially another biopsy (bulky lymph node v bone marrow biopsy) he has thus far refused --> IL-6 was 54 in the past indicating active disease, needs close followup with heme outpatient, would again recommend first a biopsy and further recommendations after procedure --> HHV-8 lab request ordered --> inflammatory makers are elevated which can be c/w flare but are fairly non- specific --> imaging is ordered as well --> outpatient f/u as well for futher therapy prn --> treat underlying HIV as per ID service # Anemia of chronic disease -- workup has been reviewed --> esr elevated, as is crp --> transfuse if hgb <7 ==? hgb trend 7.5-->7.4 # Anemia of folic acid deficiency --> start patient on folic acid 1mg po daily, continue given low levels # DVT hx that was diagnosed at outpatient hospital --> inpatient venous duplex is negative for thromboembolism, therefore DOES not require anticoagulants --> have discussed this with patients and patient's mother # Sepsis - PNA, [place], other infection, TB? --> on HIV meds, abx as needed # HIV - On Tivicay and Truvada and Bactrim, CD4 count 64 --> VL pending, CD4 count ordered <100 --> IL-6 is 51 # REENA cr 1.2-->1.1 The timing of this note does not necessarily reflect the time of the patient was seen. Greatly appreciate consultation. Subjective Constitutional: Denies: no symptoms, chills, diaphoresis, fever, malaise, weakness, other Gastrointestinal/Abdominal: Denies: no symptoms, abdomen distended, abdominal pain, black stools, tarry stools, blood in stool, constipated, diarrhea, difficulty swallowing, nausea, poor appetite, poor fluid intake, rectal bleeding , vomiting, other Neurologic/Psychiatric: Denies: no symptoms, anxiety, depressed, emotional problems, headache, numbness, paresthesia, pre-existing deficit, seizure, tingling, tremors, weakness, other Allergies: Coded Allergies: No Known Allergies (Unverified , 10/21/17) Subjective 06/15: to get 2 units pf prbc today, seen by pulm, he still doesn't want a bone marrow biopsy 06/16: feeling better, still doesn't want to do a biopsy, says wants to watch and wait 06/17: remains febrile, doesn't want to do frequent lab draws, further labs pending Objective Last 24 Hour Vital Signs Date Time Temp Pulse Resp B/P (MAP) Pulse Ox O2 Delivery O2 Flow Rate FiO2 06/17/18 12:00 99.7 142 21 116/65 (82) 100 06/17/18 12:00 134 06/17/18 09:00 Room Air 06/17/18 08:00 129 06/17/18 08:00 97.2 131 20 112/68 (83) 99 06/17/18 06:35 100.8 06/17/18 04:00 99.0 146 18 110/66 (81) 98 06/17/18 04:00 127 06/17/18 01:13 100.8 06/17/18 00:00 100.8 145 19 104/56 (72) 97 06/17/18 00:00 139 06/16/18 21:00 Room Air 06/16/18 20:00 98.0 145 19 127/77 (94) 95 06/16/18 20:00 139 06/16/18 16:00 99.5 135 18 109/66 (80) 97 06/16/18 16:00 139 Intake and Output 06/16/18 06/17/18 18:59 06:59 Intake Total 810 ml Output Total 750 ml 900 ml Balance 60 ml -900 ml Intake Oral 360 ml IV Total 450 ml Output Urine Total 750 ml 900 ml # Voids 3 # Bowel Movements 1 2 Laboratory Tests 06/17/18 06:07: White Blood Count 4.7L, Red Blood Count 2.83L, Hemoglobin 7.4L, Hematocrit 22.4L , Mean Corpuscular Volume 79L, Mean Corpuscular Hemoglobin 26.0L, Mean Corpuscular Hemoglobin Concent 32.8, Red Cell Distribution Width 19.3H, Platelet Count 25L, Mean Platelet Volume 7.3, Neutrophils (%) (Auto) , Lymphocytes (%) (Auto) , Monocytes (%) (Auto) , Eosinophils (%) (Auto) , Basophils (%) (Auto) , Differential Total Cells Counted 100, Neutrophils % ( Manual) 63, Lymphocytes % (Manual) 29, Monocytes % (Manual) 7, Eosinophils % ( Manual) 1, Basophils % (Manual) 0, Band Neutrophils 0, Platelet Estimate DecreasedL, Platelet Morphology Normal, Hypochromasia 1+, Anisocytosis 2+, Microcytosis 1+, Sodium Level 133L, Potassium Level 4.5, Chloride Level 104, Carbon Dioxide Level 25, Anion Gap 4L, Blood Urea Nitrogen 27H, Creatinine 1.3, Estimat Glomerular Filtration Rate > 60, Glucose Level 97, Uric Acid 4.7, Calcium Level 6.7L, Phosphorus Level 3.3, Magnesium Level 1.7L, Total Bilirubin 0.4, Aspartate Amino Transf (AST/SGOT) 42H, Alanine Aminotransferase (ALT/SGPT) 15, Alkaline Phosphatase 74, Total Protein 4.9L, Albumin < 0.6L, Globulin Height (Feet): 6 Height (Inches): 0.00 Weight (Pounds): 147 Objective Physical Exam: Vitals: reviewed General Appearance: NAD HEENT: normocephalic, atraumatic Neck: non-tender, normal alignment Respiratory/Chest: normal breath sounds bilaterally Cardiovascular/Chest: normal peripheral pulses, normal rate Abdomen: normal bowel sounds, soft, not Extremities: normal range of motion Jean Bingham MD June 17, 2018 14:25
[2018-06-17 16:00] VITALS: BP 107/68
--- NOTE | 2018-06-17 17:01 | NUR ---
NURSE NOTES: Notified to Dr. Howe for change in condition of the patient. The patient's temperature went up from 97.2 to 101.8F during the shift. The patient's pulse went up from 131 to 149. Administered Tylenol as there was PRN medication for fever. Will check for the additional order. Will closely monitor the patient.
--- NOTE | 2018-06-17 18:55 | Infectious Diseases Prog Note ---
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 Recommend repeat/follow- up -Abd US: Cholelithiasis. Minimal pericholecystic fluid. Correlate clinically for cholecystitis. Thrombocytopenia Anemia CKD Diffuse lymphadenopathy- Ddx: CMV disease (ie colitis), Diffuse MAC, recurrente Castleman, HIV related, lymphoma -05/18 s/p L axillary lymph node biopsy -path fragments of benign lymph node with pronounced polytypic plasmacytosis; focally + HHV8. 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 -05/16/18 CT chest: Mediastinal, axillary, and supraclavicular lymphadenopathy , enlarged compared to the prior CT of the chest. Largest left axillary node measures 3.4 x 2.4 cm. Largest supraclavicular node on the left measures 3.8 x 2.8 cm. Largest mediastinal nodes include a 2.2 x 1.6 cm pretracheal node and a 2.3 x 1.6 cm subcarinal node. Small layering right pleural effusion with fluid in the minor fissure. Kasie-bronchovascular groundglass haziness and nodularity in the right lower lobe. Scattered paraseptal emphysematous changes, predominantly in the upper lung zones. -05/16/18 CT abd/p: Diffuse edema and haziness throughout the mesenteric root. Not significantly changed compared to the visualized portions of the mesenteric root in the prior CT of the chest dated 10/22/17. Mesenteric, retroperitoneal, and inguinal lymphadenopathy. Largest retroperitoneal node measures 3.1 x 2.5 x 2.0 cm to left of the IVC (series 8 image 56, series 10 image 23). Largest left inguinal left node measures 2.9 x 2.5 cm (series 8 image 90). Mild fluid distention and air-fluid levels throughout the colon, which may suggest mild colitis and/or diarrheal disease. No evidence of bowel obstruction. Cholelithiasis without gallbladder wall thickening or ductal dilatation. Scattered subcentimeter hypodensities throughout the spleen, possibly tiny simple cysts. Subcentimeter simple-appearing left renal cortical cysts. Mild urinary bladder wall thickening, most likely related to underdistention. -CT head: . Opacification of the right maxillary sinus, right frontal sinus , and mucosal thickening throughout the ethmoid air cells and left maxillary sinus, suggestive of sinusitis. Partial opacification of the inferior posterior aspect of the left mastoid air cells, suggesting small left mastoid effusion. 04/2018- Cr Ag , T spot, CMV PCR, CMV IgM neg - 10/22/17- CT show reticular opacity and significant lymphadenopathy 10/23/17 - CT abd/pel Lymphadenopathy, Enlarged Pancrease mild B/L hydronephrosis -Blasto, Histo, CrAg neg 11/21/16 - Quantiferon negative (Out Side lab) Recent Colitis -04/2018 Cdiff neg -stool cx normal phi - O and P neg x3 HIV/AIDS- questionable compliance to ARV (dx 1999)- on Truvada and Dolutegravir -04/2018 HIV VL p, Cd4 64 (9.1%); VL 100 ?decrease due to non compliance, however low viremia (will expect higher viremia if non compliance) -10/2017 HIV VL ND, CD4 87 (12.4%) -09/01/17 - CD4 192 and VL - ND (Out Side labs) -no hx of resistance ; previously on Truvada, Reyataz and Norvir -Has been above 200 in the past. Came down with Chemo hx pancreatitis 10/2017 hx of Kaposi's sarcoma/Castleman's disease s/p chemotherapy - S/P Chemo ending 07/17/17 Last PET 08/12/17 - show stable/not worsening lymphadenopathy Hep C+ -VL ND hx of Chronic Hep B, VL <15 09/01/17 RPR, GC/CL : negative hx of DVT Plan: -Continue PO Vancomycin # 3/10-14 ( pt refusing ) ,and Tygacil d# 2 empirically for now ( probable Hosp acquired infection on the setting of CDiff) Bactrim for PCP PPC - 06/13 SP Zosyn #2 -06/12 SP Flagyl x1 - 05/21/18 SP Ceftriaxone #5 and Flagyl #7 for colitis -05/15/18 SP empiric IV Vancomycin #4 and switch empiric Zosyn #3 to Ceftriaxone and Flagyl -05/16/18 SP Tamiflu #4 - 05/12 SP Cefepime x1 -f/u cx -Monitor CBC/CMP, temperatures -Heme onc c/s -Will need excisional biopsy and bone marrow biopsy- high suspicion for recurrence of Castleman's disease -f/u HIV VL and genotype, Hep B PCR, -f/u CXR 2 v am -f/u AFB bcx, sp cx, PCP DFA - Fungal blood Cx - Stool Cryptosporidium, Isospora, Cyclospora -aspiration precautions Subjective Allergies: Coded Allergies: No Known Allergies (Unverified , 10/21/17) Subjective Fever x 1 Objective Vital Signs Last 24 Hour Vital Signs Date Time Temp Pulse Resp B/P (MAP) Pulse Ox O2 Delivery O2 Flow Rate FiO2 06/17/18 16:00 144 06/17/18 16:00 101.7 149 23 107/68 (81) 100 06/17/18 12:00 99.7 142 21 116/65 (82) 100 06/17/18 12:00 134 06/17/18 09:00 Room Air 06/17/18 08:00 129 06/17/18 08:00 97.2 131 20 112/68 (83) 99 06/17/18 06:35 100.8 06/17/18 04:00 99.0 146 18 110/66 (81) 98 06/17/18 04:00 127 06/17/18 01:13 100.8 06/17/18 00:00 100.8 145 19 104/56 (72) 97 06/17/18 00:00 139 06/16/18 21:00 Room Air 06/16/18 20:00 98.0 145 19 127/77 (94) 95 06/16/18 20:00 139 Height (Feet): 6 Height (Inches): 0.00 Weight (Pounds): 147 HEENT: atraumatic Respiratory/Chest: normal breath sounds Cardiovascular: regular rhythm Abdomen: no organomegaly Laboratory Tests Test 06/17/18 06:07 White Blood Count 4.7 K/UL (4.8-10.8) L Red Blood Count 2.83 M/UL (4.70-6.10) L Hemoglobin 7.4 G/DL (14.2-18.0) L Hematocrit 22.4 % (42.0-52.0) L Mean Corpuscular Volume 79 FL (80-99) L Mean Corpuscular Hemoglobin 26.0 PG (27.0-31.0) L Mean Corpuscular Hemoglobin Concent 32.8 G/DL (32.0-36.0) Red Cell Distribution Width 19.3 % (11.6-14.8) H Platelet Count 25 K/UL (150-450) L Mean Platelet Volume 7.3 FL (6.5-10.1) Neutrophils (%) (Auto) % (45.0-75.0) Lymphocytes (%) (Auto) % (20.0-45.0) Monocytes (%) (Auto) % (1.0-10.0) Eosinophils (%) (Auto) % (0.0-3.0) Basophils (%) (Auto) % (0.0-2.0) Differential Total Cells Counted 100 Neutrophils % (Manual) 63 % (45-75) Lymphocytes % (Manual) 29 % (20-45) Monocytes % (Manual) 7 % (1-10) Eosinophils % (Manual) 1 % (0-3) Basophils % (Manual) 0 % (0-2) Band Neutrophils 0 % (0-8) Platelet Estimate Decreased L Platelet Morphology Normal Hypochromasia 1+ Anisocytosis 2+ Microcytosis 1+ Sodium Level 133 MMOL/L (136-145) L Potassium Level 4.5 MMOL/L (3.5-5.1) Chloride Level 104 MMOL/L (98-107) Carbon Dioxide Level 25 MMOL/L (21-32) Anion Gap 4 mmol/L (5-15) L Blood Urea Nitrogen 27 mg/dL (7-18) H Creatinine 1.3 MG/DL (0.55-1.30) Estimat Glomerular Filtration Rate > 60 mL/min (>60) Glucose Level 97 MG/DL (74-106) Uric Acid 4.7 MG/DL (2.6-7.2) Calcium Level 6.7 MG/DL (8.5-10.1) L Phosphorus Level 3.3 MG/DL (2.5-4.9) Magnesium Level 1.7 MG/DL (1.8-2.4) L Total Bilirubin 0.4 MG/DL (0.2-1.0) Aspartate Amino Transf (AST/SGOT) 42 U/L (15-37) H Alanine Aminotransferase (ALT/SGPT) 15 U/L (12-78) Alkaline Phosphatase 74 U/L (46-116) Total Protein 4.9 G/DL (6.4-8.2) L Albumin < 0.6 G/DL (3.4-5.0) L Globulin g/dL Current Medications Medications (Trade) Dose Ordered Sig/Yessica Route PRN Reason Start Time Stop Time Status Last Admin Dose Admin Acetaminophen (Tylenol) 650 mg Q4H PRN ORAL fever 06/12/18 09:30 07/12/18 09:29 06/17/18 17:46 Dextrose (Dextrose 50%) 25 ml Q30M PRN IV Hypoglycemia 06/12/18 09:30 07/12/18 09:29 Dextrose (Dextrose 50%) 50 ml Q30M PRN IV Hypoglycemia 06/12/18 09:30 07/12/18 09:29 Diphenhydramine HCl (Benadryl) 25 mg Q6H PRN ORAL Itching/Pruritis 06/12/18 09:30 07/12/18 09:29 Dronabinol (Marinol) 2.5 mg TID ORAL 06/15/18 13:00 07/13/18 17:59 06/17/18 17:46 Folic Acid (Folate) 5 mg DAILY ORAL 06/15/18 11:15 07/15/18 11:14 06/17/18 08:52 Furosemide (Lasix) 10 mg EVERY 6 HOURS IV 06/16/18 12:30 07/16/18 12:29 06/17/18 17:45 Lactobacillus Acidophilus (Culturelle) 1 tab THREE TIMES A DAY ORAL 06/14/18 18:00 07/14/18 17:59 06/17/18 17:45 Lorazepam (Ativan 2mg/ml 1ml) 1 mg Q4H PRN IV agitation 06/12/18 09:30 06/19/18 09:29 Mirtazapine (Remeron) 15 mg BEDTIME ORAL 06/12/18 21:00 07/12/18 20:59 06/16/18 20:39 Morphine Sulfate (Morphine Sulfate) 4 mg Q4H PRN IVP severe Pain (Pain Scale 7-10) 06/14/18 20:30 06/19/18 09:29 06/17/18 13:16 Nitroglycerin (Ntg) 0.4 mg Q5M X 3 DOSES PRN SL Prn Chest Pain 06/12/18 09:30 07/12/18 09:29 Ondansetron HCl (Zofran) 4 mg Q6H PRN IVP Nausea & Vomiting 06/12/18 09:30 07/12/18 09:29 06/15/18 09:32 Pantoprazole (Protonix) 40 mg EVERY 12 HOURS ORAL 06/14/18 21:00 07/14/18 20:59 06/17/18 08:52 Patient Own Medication (Patient's Own Med) 1 ea DAILY ORAL 06/13/18 15:30 07/13/18 15:29 06/17/18 08:52 Patient Own Medication (Patient's Own Med) 1 ea DAILY ORAL 06/13/18 15:30 07/13/18 15:29 06/17/18 08:52 Promethazine HCl (Phenergan) 25 mg Q6H PRN IM REFRACTORY N/V 06/12/18 09:30 07/12/18 09:29 Temazepam (Restoril) 15 mg HSPRN PRN ORAL Insomnia 06/12/18 09:30 06/19/18 09:29 Tigecycline 50 mg/ Sodium Chloride 110 ml @ 220 mls/hr EVERY 12 HOURS IVPB 06/17/18 09:00 06/24/18 08:59 06/17/18 08:50 Trimethoprim/ Sulfamethoxazole (Bactrim Single Strength) 1 tab DAILY ORAL 06/17/18 09:00 06/24/18 08:59 06/17/18 08:51 Vancomycin HCl (Firvanq) 125 mg FOUR TIMES A DAY ORAL 06/13/18 09:00 06/20/18 08:59 06/17/18 17:45 Jez Mendoza MD June 17, 2018 18:55
--- NOTE | 2018-06-17 19:35 | NUR ---
HAND-OFF: Report given to TRES Stroud. Endorsed plan of care.
[2018-06-17 20:00] VITALS: BP 109/62
--- NOTE | 2018-06-17 20:00 | NUR ---
NURSE NOTES: Received report from TRES Smith. Pt in bed resting A&O times 4. Patient able to make needs known. Will cont to monitor.
[2018-06-18] VITALS: BP 110/69
[2018-06-18] MEDS: Morphine Sulfate 4mg/ml Inj (IV USE ONLY) IVP PRN ×5 (01:37→21:54)
[2018-06-18 04:00] VITALS: BP 103/69
[2018-06-18 06:52] LABS: HEMATOCRIT 24.4 % (42.0-52.0); HEMOGLOBIN 7.8 G/DL (14.2-18.0); MEAN CORPUSCULAR VOLUME 80 FL (80-99); PLATELET COUNT 25 K/UL (150-450); RED BLOOD COUNT 3.06 M/UL (4.70-6.10); RED CELL DISTRIBUTION WIDTH 19.9 % (11.6-14.8); WHITE BLOOD COUNT 5.9 K/UL (4.8-10.8)
--- NOTE | 2018-06-18 07:15 | NUR ---
HAND-OFF: Report given to Rajiv Cole. Pt stable at hand off.
--- NOTE | 2018-06-18 07:44 | NUR ---
NURSE NOTES: Received report from TRES Stroud. Pt in bed resting with open eyes, A/O x 4. Patient able to make needs known. call light and frequent used objects are with in reach, rails up x 2 for safety reason. Will cont to monitor.
--- NOTE | 2018-06-18 08:10 | Cardiology Report ---
APPROVED REPORT EXAM: Two-dimensional and M-mode echocardiogram with Doppler and color Doppler. INDICATION Tachycardia M-Mode DIMENSIONS IVSd0.7 (0.7-1.1cm)Left Atrium (MM)2.9 (1.6-4.0cm) LVDd4.2 (3.5-5.6cm)Aortic Root3.3 (2.0-3.7cm) PWd0.9 (0.7-1.1cm)Aortic Cusp Exc.2.1 (1.5-2.0cm) IVSs1.3 cm LVDs2.4 (2.5-4.0cm) PWs1.6 cm Normal left ventricular chamber size, hyperdynamic systolic function and wall motion. Left ventricular ejection fraction estimated to be 65 %. Moderate left ventricular hypertrophy by 2-D. Anterior Echo-free space, may be due to pericardial fat or effusion. All other cardiac chamber sizes are within normal limits. Mild focal aortic valve sclerosis with adequate cusp excursion. Mildly thickened mitral valve leaflets with normal excursion. Mild mitral annulus and aortic root calcification. Pulmonic valve not well visualized. Normal tricuspid valve structure. IVC at normal size with physiologic collapse. A color flow and spectral Doppler study was performed and revealed: Trace aortic regurgitation. Trace mitral regurgitation. Mitral diastolic velocities suggest reduced left ventricular relaxation c/w mild LV diastolic dysfunction (Grade I). Moderate tricuspid regurgitation. Tricuspid systolic velocities suggests peak right ventricular systolic pressure of 43 mmHg, consistent with mild to moderate pulmonary hypertension.
[2018-06-18 08:29] LABS: ANION GAP 7 mmol/L (5-15); BLOOD UREA NITROGEN 33 mg/dL (7-18); CALCIUM 6.9 MG/DL (8.5-10.1); CARBON DIOXIDE 24 MMOL/L (21-32); CHLORIDE 103 MMOL/L (98-107); CREATININE 1.4 MG/DL (0.55-1.30); POTASSIUM 5.2 MMOL/L (3.5-5.1); SODIUM 133 MMOL/L (136-145)
[2018-06-18 08:36] VITALS: BP 111/70
[2018-06-18] MEDS: Tigecycline 50 MG in NS 110 ML IVPB SCH ×2 (09:20→21:50)
[2018-06-18] MEDS: Dronabinol 2.5mg Cap ORAL SCH ×3 (09:25→16:57)
[2018-06-18] MEDS: Bactrim SS Tab ORAL SCH (09:25)
[2018-06-18] MEDS: Lactobacillus-GG tablet ORAL SCH ×3 (09:25→16:57)
[2018-06-18] MEDS: Vancomycin oral 125mg/2.5ml ORAL SCH ×4 (09:33→21:50)
--- NOTE | 2018-06-18 10:05 | GI Progress Note ---
Assessment/Plan Problems: (1) Protein-calorie malnutrition, severe ICD Codes: E43 - Unspecified severe protein-calorie malnutrition SNOMED: 526111285, 083571614, 336973657 (2) Cyclic vomiting syndrome ICD Codes: G43.A0 - Cyclical vomiting, not intractable SNOMED: 28936153 (3) Nausea & vomiting ICD Codes: R11.2 - Nausea with vomiting, unspecified SNOMED: 32496838 (4) Diarrhea ICD Codes: R19.7 - Diarrhea, unspecified SNOMED: 25739136 (5) Kaposi disease ICD Codes: Q82.1 - Xeroderma pigmentosum SNOMED: 41689534 (6) Anemia ICD Codes: D64.9 - Anemia, unspecified SNOMED: 860338765 (7) generalized weakness, kaposi sarcoma Status: stable, unchanged Status Narrative Discussed with Dr. Grande. Assessment/Plan C. difficile positive fu OB stool r/o GI bleed on marinol with good response push PO vanco H2B fu ID fu H&H, transfuse if hgb below 7 supportive care The patient was seen and examined at bedside and all new and available data was reviewed in the patients chart. I agree with the above findings, impression and plan. (Patient seen earlier today. Signature stamp does not reflect patient encounter time.). - Michael Grande MD Subjective Subjective Generalized weakness Objective Last 24 Hour Vital Signs Date Time Temp Pulse Resp B/P (MAP) Pulse Ox O2 Delivery O2 Flow Rate FiO2 06/18/18 09:56 Room Air 06/18/18 08:36 99.8 133 22 111/70 (84) 100 06/18/18 04:00 132 06/18/18 04:00 99.3 129 20 103/69 (80) 96 06/18/18 00:00 112 06/18/18 00:00 98.1 78 18 110/69 (83) 97 06/17/18 21:00 Room Air 06/17/18 20:00 133 06/17/18 20:00 98.0 122 24 109/62 (78) 98 06/17/18 18:16 99.8 06/17/18 16:00 144 06/17/18 16:00 101.7 149 23 107/68 (81) 100 06/17/18 12:00 99.7 142 21 116/65 (82) 100 06/17/18 12:00 134 Intake and Output 06/17/18 06/18/18 19:00 07:00 Intake Total 810 ml 746 ml Output Total 500 ml 1900 ml Balance 310 ml -1154 ml Intake Oral 500 ml 636 ml IV Total 310 ml 110 ml Output Urine Total 500 ml 1900 ml # Bowel Movements 2 4 Laboratory Tests Test 06/17/18 18:09 06/18/18 05:50 Stool Occult Blood Pending White Blood Count 5.9 K/UL (4.8-10.8) Red Blood Count 3.06 M/UL (4.70-6.10) L Hemoglobin 7.8 G/DL (14.2-18.0) L Hematocrit 24.4 % (42.0-52.0) L Mean Corpuscular Volume 80 FL (80-99) Mean Corpuscular Hemoglobin 25.6 PG (27.0-31.0) L Mean Corpuscular Hemoglobin Concent 32.1 G/DL (32.0-36.0) Red Cell Distribution Width 19.9 % (11.6-14.8) H Platelet Count 25 K/UL (150-450) L Mean Platelet Volume 7.4 FL (6.5-10.1) Neutrophils (%) (Auto) % (45.0-75.0) Lymphocytes (%) (Auto) % (20.0-45.0) Monocytes (%) (Auto) % (1.0-10.0) Eosinophils (%) (Auto) % (0.0-3.0) Basophils (%) (Auto) % (0.0-2.0) Neutrophils % (Manual) Pending Lymphocytes % (Manual) Pending Platelet Estimate Pending Platelet Morphology Pending Sodium Level 133 MMOL/L (136-145) L Potassium Level 5.2 MMOL/L (3.5-5.1) H Chloride Level 103 MMOL/L (98-107) Carbon Dioxide Level 24 MMOL/L (21-32) Anion Gap 7 mmol/L (5-15) Blood Urea Nitrogen 33 mg/dL (7-18) H Creatinine 1.4 MG/DL (0.55-1.30) H Estimat Glomerular Filtration Rate > 60 mL/min (>60) Glucose Level 96 MG/DL (74-106) Calcium Level 6.9 MG/DL (8.5-10.1) L Magnesium Level 2.0 MG/DL (1.8-2.4) Height (Feet): 6 Height (Inches): 0.00 Weight (Pounds): 147 General Appearance: WD/WN, no apparent distress, alert, thin Cardiovascular: normal rate Respiratory/Chest: normal breath sounds, no respiratory distress Abdominal Exam: normal bowel sounds, non tender, soft Extremities: non-tender Simeon Fall NP June 18, 2018 10:05
--- NOTE | 2018-06-18 10:57 | Pulmonology Progress Note ---
Assessment/Plan Problems: (1) Anemia (2) Severe sepsis (3) HIV disease (4) ATN (acute tubular necrosis) (5) Kaposi disease (6) Cyclic vomiting syndrome (7) Protein-calorie malnutrition, severe (8) Lymphadenopathy Assessment/Plan still febrile Hem better watch Na, iv abx Cdiff still positive, on PO Vancomycin prbc when hem less than 7 check cultures on HIV meds f/u ID recommendations Subjective HEENT: Repors: no symptoms Respiratory: Reports: no symptoms Allergies: Coded Allergies: No Known Allergies (Unverified , 10/21/17) Objective Last 24 Hour Vital Signs Date Time Temp Pulse Resp B/P (MAP) Pulse Ox O2 Delivery O2 Flow Rate FiO2 06/18/18 09:56 Room Air 06/18/18 08:36 99.8 133 22 111/70 (84) 100 06/18/18 04:00 132 06/18/18 04:00 99.3 129 20 103/69 (80) 96 06/18/18 00:00 112 06/18/18 00:00 98.1 78 18 110/69 (83) 97 06/17/18 21:00 Room Air 06/17/18 20:00 133 06/17/18 20:00 98.0 122 24 109/62 (78) 98 06/17/18 18:16 99.8 06/17/18 16:00 144 06/17/18 16:00 101.7 149 23 107/68 (81) 100 06/17/18 12:00 99.7 142 21 116/65 (82) 100 06/17/18 12:00 134 Intake and Output 06/17/18 06/18/18 19:00 07:00 Intake Total 810 ml 746 ml Output Total 500 ml 1900 ml Balance 310 ml -1154 ml Intake Oral 500 ml 636 ml IV Total 310 ml 110 ml Output Urine Total 500 ml 1900 ml # Bowel Movements 2 4 Objective General Appearance: WD/WN HEENT: normocephalic, atraumatic Respiratory/Chest: chest wall non-tender, crackles/rales Cardiovascular: normal peripheral pulses, no arrhythmia Abdomen: normal bowel sounds, soft, non tender Genitourinary: normal external genitalia Extremities: no clubbing Skin: no rash, no ulcers Neurologic/Psychiatric: marketing executive II-XII grossly normal Laboratory Tests 06/17/18 18:09: Stool Occult Blood [Pending] 06/18/18 05:50: White Blood Count 5.9, Red Blood Count 3.06L, Hemoglobin 7.8L, Hematocrit 24.4L , Mean Corpuscular Volume 80, Mean Corpuscular Hemoglobin 25.6L, Mean Corpuscular Hemoglobin Concent 32.1, Red Cell Distribution Width 19.9H, Platelet Count 25L, Mean Platelet Volume 7.4, Neutrophils (%) (Auto) , Lymphocytes (%) (Auto) , Monocytes (%) (Auto) , Eosinophils (%) (Auto) , Basophils (%) (Auto) , Neutrophils % (Manual) [Pending], Lymphocytes % (Manual) [Pending], Platelet Estimate [Pending], Platelet Morphology [Pending], Sodium Level 133L, Potassium Level 5.2H, Chloride Level 103, Carbon Dioxide Level 24, Anion Gap 7, Blood Urea Nitrogen 33H, Creatinine 1.4H, Estimat Glomerular Filtration Rate > 60, Glucose Level 96, Calcium Level 6.9L, Magnesium Level 2.0 Current Medications Medications (Trade) Dose Ordered Sig/Yessica Route PRN Reason Start Time Stop Time Status Last Admin Dose Admin Acetaminophen (Tylenol) 650 mg Q4H PRN ORAL fever 06/12/18 09:30 07/12/18 09:29 06/17/18 17:46 Dextrose (Dextrose 50%) 25 ml Q30M PRN IV Hypoglycemia 06/12/18 09:30 07/12/18 09:29 Dextrose (Dextrose 50%) 50 ml Q30M PRN IV Hypoglycemia 06/12/18 09:30 07/12/18 09:29 Diphenhydramine HCl (Benadryl) 25 mg Q6H PRN ORAL Itching/Pruritis 06/12/18 09:30 07/12/18 09:29 Dronabinol (Marinol) 2.5 mg TID ORAL 06/15/18 13:00 07/13/18 17:59 06/18/18 09:25 Folic Acid (Folate) 5 mg DAILY ORAL 06/15/18 11:15 07/15/18 11:14 06/18/18 09:25 Lactobacillus Acidophilus (Culturelle) 1 tab THREE TIMES A DAY ORAL 06/14/18 18:00 07/14/18 17:59 06/18/18 09:25 Lorazepam (Ativan 2mg/ml 1ml) 1 mg Q4H PRN IV agitation 06/12/18 09:30 06/19/18 09:29 Mirtazapine (Remeron) 15 mg BEDTIME ORAL 06/12/18 21:00 07/12/18 20:59 06/17/18 21:19 Morphine Sulfate (Morphine Sulfate) 4 mg Q4H PRN IVP severe Pain (Pain Scale 7-10) 06/14/18 20:30 06/19/18 09:29 06/18/18 05:57 Nitroglycerin (Ntg) 0.4 mg Q5M X 3 DOSES PRN SL Prn Chest Pain 06/12/18 09:30 07/12/18 09:29 Ondansetron HCl (Zofran) 4 mg Q6H PRN IVP Nausea & Vomiting 06/12/18 09:30 07/12/18 09:29 06/15/18 09:32 Pantoprazole (Protonix) 40 mg EVERY 12 HOURS ORAL 06/14/18 21:00 07/14/18 20:59 06/18/18 09:25 Patient Own Medication (Patient's Own Med) 1 ea DAILY ORAL 06/13/18 15:30 07/13/18 15:29 06/18/18 09:20 Patient Own Medication (Patient's Own Med) 1 ea DAILY ORAL 06/13/18 15:30 07/13/18 15:29 06/18/18 09:20 Promethazine HCl (Phenergan) 25 mg Q6H PRN IM REFRACTORY N/V 06/12/18 09:30 07/12/18 09:29 Temazepam (Restoril) 15 mg HSPRN PRN ORAL Insomnia 06/12/18 09:30 06/19/18 09:29 Tigecycline 50 mg/ Sodium Chloride 110 ml @ 220 mls/hr EVERY 12 HOURS IVPB 06/17/18 09:00 06/24/18 08:59 06/18/18 09:20 Trimethoprim/ Sulfamethoxazole (Bactrim Single Strength) 1 tab DAILY ORAL 06/17/18 09:00 06/24/18 08:59 06/18/18 09:25 Vancomycin HCl (Firvanq) 125 mg FOUR TIMES A DAY ORAL 06/13/18 09:00 06/20/18 08:59 06/18/18 09:33 Ya Hester MD June 18, 2018 10:57
[2018-06-18] MEDS ORDERED: LORazepam Inj 2mg/ml 1ml IV PRN (11:00)
--- NOTE | 2018-06-18 11:44 | Nephrology Progress Note ---
Assessment/Plan Problem List: (1) Hyponatremia (2) Kaposi disease (3) HIV disease (4) Anemia (5) Hepatitis B (6) Hepatitis C (7) C. difficile colitis (8) Malnutrition Assessment HypoNatremia , etiology ? will comment after urine studies and blood test results available Intractable nausea and vomiting. Severe protein-calorie malnutrition. History of HIV/AIDS. Kaposi sarcoma. Sepsis Anemia, PanCytopenia C diff Hep B and Hep C Plan add coreg add epo trial of 3% saline and Lasix as needed continue per consultants Per orders Subjective ROS Limited/Unobtainable: No Constitutional: Reports: malaise, weakness Objective Objective Last 24 Hour Vital Signs Date Time Temp Pulse Resp B/P (MAP) Pulse Ox O2 Delivery O2 Flow Rate FiO2 06/18/18 09:56 Room Air 06/18/18 08:36 99.8 133 22 111/70 (84) 100 06/18/18 04:00 132 06/18/18 04:00 99.3 129 20 103/69 (80) 96 06/18/18 00:00 112 06/18/18 00:00 98.1 78 18 110/69 (83) 97 06/17/18 21:00 Room Air 06/17/18 20:00 133 06/17/18 20:00 98.0 122 24 109/62 (78) 98 06/17/18 18:16 99.8 06/17/18 16:00 144 06/17/18 16:00 101.7 149 23 107/68 (81) 100 06/17/18 12:00 99.7 142 21 116/65 (82) 100 06/17/18 12:00 134 Intake and Output 06/17/18 06/18/18 19:00 07:00 Intake Total 810 ml 746 ml Output Total 500 ml 1900 ml Balance 310 ml -1154 ml Intake Oral 500 ml 636 ml IV Total 310 ml 110 ml Output Urine Total 500 ml 1900 ml # Bowel Movements 2 4 Laboratory Tests 06/17/18 18:09: Stool Occult Blood [Pending] 06/18/18 05:50: White Blood Count 5.9, Red Blood Count 3.06L, Hemoglobin 7.8L, Hematocrit 24.4L , Mean Corpuscular Volume 80, Mean Corpuscular Hemoglobin 25.6L, Mean Corpuscular Hemoglobin Concent 32.1, Red Cell Distribution Width 19.9H, Platelet Count 25L, Mean Platelet Volume 7.4, Neutrophils (%) (Auto) , Lymphocytes (%) (Auto) , Monocytes (%) (Auto) , Eosinophils (%) (Auto) , Basophils (%) (Auto) , Differential Total Cells Counted 100, Neutrophils % ( Manual) 70, Lymphocytes % (Manual) 21, Monocytes % (Manual) 7, Eosinophils % ( Manual) 2, Basophils % (Manual) 0, Band Neutrophils 0, Platelet Estimate DecreasedL, Platelet Morphology Normal, Hypochromasia 1+, Anisocytosis 2+, Microcytosis 1+, Sodium Level 133L, Potassium Level 5.2H, Chloride Level 103, Carbon Dioxide Level 24, Anion Gap 7, Blood Urea Nitrogen 33H, Creatinine 1.4H, Estimat Glomerular Filtration Rate > 60, Glucose Level 96, Calcium Level 6.9L, Magnesium Level 2.0 Height (Feet): 6 Height (Inches): 0.00 Weight (Pounds): 147 General Appearance: no apparent distress, lethargic Cardiovascular: tachycardia Respiratory/Chest: decreased breath sounds Abdomen: distended Adam Aguiar MD June 18, 2018 11:44
[2018-06-18 12:13] VITALS: BP 105/73
--- NOTE | 2018-06-18 13:18 | General Progress Note ---
Assessment/Plan Status: stable, unchanged Assessment/Plan: Assessment and Recs # Pancytopenia, worsening, with severe diffuse lymphadenopathy worsened since 2018, in the setting Castlemans's disease/KS - outpatinent chemo has been received as recently 09/2017 or so. Hx of HIV, CD4 count very low. He has a very poor memory, says was treated at [facility] S/P Chemo ending 07/17/17. Last PET 08/12 - show stable/not worsening lymphadenopathy. Has very extensive disease on ct scan lympahdenopathy noted throughout, final results of axilla lymphadenopathy biopsy on 05/25/18, and FINAL results from prior admission are nondiagnostic --> I talked with him regarding getting potentially another biopsy (bulky lymph node v bone marrow biopsy) he has thus far refused --> IL-6 was 54 in the past indicating active disease, needs close followup with heme outpatient, would again recommend first a biopsy and further recommendations after procedure --> HHV-8 lab request ordered --> inflammatory makers are elevated which can be c/w flare but are fairly non- specific --> imaging is ordered as well --> outpatient f/u as well for futher therapy prn --> treat underlying HIV as per ID service ==> plt trend 39-->34-->25 # Anemia of chronic disease -- workup has been reviewed --> esr elevated, as is crp --> transfuse if hgb <7 => hgb trend 7.5-->7.4-->7.8 # Anemia of folic acid deficiency --> start patient on folic acid 1mg po daily, continue given low levels # DVT hx that was diagnosed at outpatient hospital --> inpatient venous duplex is negative for thromboembolism, therefore DOES not require anticoagulants --> have discussed this with patients and patient's mother # Sepsis - PNA, KS, other infection, TB? --> on HIV meds, abx as needed # HIV - On Tivicay and Truvada and Bactrim, CD4 count 64 --> VL pending, CD4 count ordered <100 --> IL-6 is 51 # REENA cr 1.2-->1.1 The timing of this note does not necessarily reflect the time of the patient was seen. Greatly appreciate consultation. Subjective Constitutional: Denies: no symptoms, chills, diaphoresis, fever, malaise, weakness, other HEENT: Denies: no symptoms, eye pain, blurred vision, tearing, double vision, ear pain, ear discharge, nose pain, nose congestion, throat pain, throat swelling, mouth pain, mouth swelling, other Gastrointestinal/Abdominal: Denies: no symptoms, abdomen distended, abdominal pain, black stools, tarry stools, blood in stool, constipated, diarrhea, difficulty swallowing, nausea, poor appetite, poor fluid intake, rectal bleeding , vomiting, other Genitourinary: Denies: no symptoms, burning, discharge, frequency, flank pain, hematuria, incontinence, pain, urgency, other Neurologic/Psychiatric: Denies: no symptoms, anxiety, depressed, emotional problems, headache, numbness, paresthesia, pre-existing deficit, seizure, tingling, tremors, weakness, other Allergies: Coded Allergies: No Known Allergies (Unverified , 10/21/17) Subjective 06/15: to get 2 units pf prbc today, seen by pulm, he still doesn't want a bone marrow biopsy 06/16: feeling better, still doesn't want to do a biopsy, says wants to watch and wait 06/17: remains febrile, doesn't want to do frequent lab draws, further labs pending 06/18: labs reviewed, are better, epo has been added Objective Last 24 Hour Vital Signs Date Time Temp Pulse Resp B/P (MAP) Pulse Ox O2 Delivery O2 Flow Rate FiO2 06/18/18 12:13 99.0 130 22 105/73 (84) 99 06/18/18 12:02 130 105/73 06/18/18 12:00 125 06/18/18 11:55 99.8 06/18/18 09:56 Room Air 06/18/18 08:36 99.8 133 22 111/70 (84) 100 06/18/18 08:00 140 06/18/18 04:00 132 06/18/18 04:00 99.3 129 20 103/69 (80) 96 06/18/18 00:00 112 06/18/18 00:00 98.1 78 18 110/69 (83) 97 06/17/18 21:00 Room Air 06/17/18 20:00 133 06/17/18 20:00 98.0 122 24 109/62 (78) 98 06/17/18 18:16 99.8 06/17/18 16:00 144 06/17/18 16:00 101.7 149 23 107/68 (81) 100 Intake and Output 06/17/18 06/18/18 19:00 07:00 Intake Total 810 ml 746 ml Output Total 500 ml 1900 ml Balance 310 ml -1154 ml Intake Oral 500 ml 636 ml IV Total 310 ml 110 ml Output Urine Total 500 ml 1900 ml # Bowel Movements 2 4 Laboratory Tests 06/17/18 18:09: Stool Occult Blood Positive 06/18/18 05:50: White Blood Count 5.9, Red Blood Count 3.06L, Hemoglobin 7.8L, Hematocrit 24.4L , Mean Corpuscular Volume 80, Mean Corpuscular Hemoglobin 25.6L, Mean Corpuscular Hemoglobin Concent 32.1, Red Cell Distribution Width 19.9H, Platelet Count 25L, Mean Platelet Volume 7.4, Neutrophils (%) (Auto) , Lymphocytes (%) (Auto) , Monocytes (%) (Auto) , Eosinophils (%) (Auto) , Basophils (%) (Auto) , Differential Total Cells Counted 100, Neutrophils % ( Manual) 70, Lymphocytes % (Manual) 21, Monocytes % (Manual) 7, Eosinophils % ( Manual) 2, Basophils % (Manual) 0, Band Neutrophils 0, Platelet Estimate DecreasedL, Platelet Morphology Normal, Hypochromasia 1+, Anisocytosis 2+, Microcytosis 1+, Sodium Level 133L, Potassium Level 5.2H, Chloride Level 103, Carbon Dioxide Level 24, Anion Gap 7, Blood Urea Nitrogen 33H, Creatinine 1.4H, Estimat Glomerular Filtration Rate > 60, Glucose Level 96, Calcium Level 6.9L, Magnesium Level 2.0 Height (Feet): 6 Height (Inches): 0.00 Weight (Pounds): 147 Objective Physical Exam: Vitals: reviewed General Appearance: NAD HEENT: normocephalic, atraumatic Neck: non-tender, normal alignment Respiratory/Chest: normal breath sounds bilaterally Cardiovascular/Chest: normal peripheral pulses, normal rate Abdomen: normal bowel sounds, soft, not Extremities: normal range of motion Jean Bingham MD June 18, 2018 13:18
--- NOTE | 2018-06-18 16:04 | Cardiac Electrophysiology PN ---
Assessment/Plan Assessment/Plan 1. Sinus tachycardia, due to sepsis, anemia and pain. Ruled out for [facility]. EKG showed no acute ischemic changes. No evidence of atrial fibrillation or supraventricular tachycardia. EF 75%. S/P transfusion. On broad spectrum iv antibiotics 2. History of hypertension. Hold off on antihypertensive agents. 3. 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 5. History of pancreatitis and hepatitis B and C positive. 6. Severe anemia. Hb 9 to 6.4. S/P transfusion 7. Hyponatremia Na 127, s/p 3% saline. Na 133 DW RN Subjective Subjective In sinus tach 120-130s. On iv fluid and iv abx. Objective Last 24 Hour Vital Signs Date Time Temp Pulse Resp B/P (MAP) Pulse Ox O2 Delivery O2 Flow Rate FiO2 06/18/18 12:13 99.0 130 22 105/73 (84) 99 06/18/18 12:02 130 105/73 06/18/18 12:00 125 06/18/18 11:55 99.8 06/18/18 09:56 Room Air 06/18/18 08:36 99.8 133 22 111/70 (84) 100 06/18/18 08:00 140 06/18/18 04:00 132 06/18/18 04:00 99.3 129 20 103/69 (80) 96 06/18/18 00:00 112 06/18/18 00:00 98.1 78 18 110/69 (83) 97 06/17/18 21:00 Room Air 06/17/18 20:00 133 06/17/18 20:00 98.0 122 24 109/62 (78) 98 06/17/18 18:16 99.8 06/17/18 16:00 144 06/17/18 16:00 101.7 149 23 107/68 (81) 100 Intake and Output 06/17/18 06/18/18 18:59 06:59 Intake Total 810 ml 746 ml Output Total 500 ml 1900 ml Balance 310 ml -1154 ml Intake Oral 500 ml 636 ml IV Total 310 ml 110 ml Output Urine Total 500 ml 1900 ml # Bowel Movements 2 4 Laboratory Tests Test 06/17/18 18:09 06/18/18 05:50 Stool Occult Blood Positive (NEGATIVE) White Blood Count 5.9 K/UL (4.8-10.8) Red Blood Count 3.06 M/UL (4.70-6.10) L Hemoglobin 7.8 G/DL (14.2-18.0) L Hematocrit 24.4 % (42.0-52.0) L Mean Corpuscular Volume 80 FL (80-99) Mean Corpuscular Hemoglobin 25.6 PG (27.0-31.0) L Mean Corpuscular Hemoglobin Concent 32.1 G/DL (32.0-36.0) Red Cell Distribution Width 19.9 % (11.6-14.8) H Platelet Count 25 K/UL (150-450) L Mean Platelet Volume 7.4 FL (6.5-10.1) Neutrophils (%) (Auto) % (45.0-75.0) Lymphocytes (%) (Auto) % (20.0-45.0) Monocytes (%) (Auto) % (1.0-10.0) Eosinophils (%) (Auto) % (0.0-3.0) Basophils (%) (Auto) % (0.0-2.0) Differential Total Cells Counted 100 Neutrophils % (Manual) 70 % (45-75) Lymphocytes % (Manual) 21 % (20-45) Monocytes % (Manual) 7 % (1-10) Eosinophils % (Manual) 2 % (0-3) Basophils % (Manual) 0 % (0-2) Band Neutrophils 0 % (0-8) Platelet Estimate Decreased L Platelet Morphology Normal Hypochromasia 1+ Anisocytosis 2+ Microcytosis 1+ Sodium Level 133 MMOL/L (136-145) L Potassium Level 5.2 MMOL/L (3.5-5.1) H Chloride Level 103 MMOL/L (98-107) Carbon Dioxide Level 24 MMOL/L (21-32) Anion Gap 7 mmol/L (5-15) Blood Urea Nitrogen 33 mg/dL (7-18) H Creatinine 1.4 MG/DL (0.55-1.30) H Estimat Glomerular Filtration Rate > 60 mL/min (>60) Glucose Level 96 MG/DL (74-106) Calcium Level 6.9 MG/DL (8.5-10.1) L Magnesium Level 2.0 MG/DL (1.8-2.4) Objective HEAD AND NECK: no JVD. LUNGS: Decreased breath sounds. CARDIOVASCULAR: Tachycardic, S1, S2 with no gallop. ABDOMEN: Soft. EXTREMITIES: Chronic skin changes and edema. Toney Howe MD June 18, 2018 16:04
[2018-06-18 16:50] VITALS: BP 99/63
--- NOTE | 2018-06-18 17:08 | Internal Med Progress Note ---
Subjective Date of Service: June 18, 2018 Physician Name PadronAdam waterman Attending Physician Alberto Gtz MD Current Medications Medications (Trade) Dose Ordered Sig/Yessica Route PRN Reason Start Time Stop Time Status Last Admin Dose Admin Acetaminophen (Tylenol) 650 mg Q4H PRN ORAL fever 06/12/18 09:30 07/12/18 09:29 06/18/18 16:58 Carvedilol (Coreg) 3.125 mg EVERY 12 HOURS ORAL 06/18/18 21:00 07/18/18 20:59 Dextrose (Dextrose 50%) 25 ml Q30M PRN IV Hypoglycemia 06/12/18 09:30 07/12/18 09:29 Dextrose (Dextrose 50%) 50 ml Q30M PRN IV Hypoglycemia 06/12/18 09:30 07/12/18 09:29 Diphenhydramine HCl (Benadryl) 25 mg Q6H PRN ORAL Itching/Pruritis 06/12/18 09:30 07/12/18 09:29 Dronabinol (Marinol) 2.5 mg TID ORAL 06/15/18 13:00 07/13/18 17:59 06/18/18 16:57 Epoetin Jeferson (Epoetin Jeferson-EPBX(NON ESRD)) 10,000 unit FRI-FRI-FRI SUBQ 06/19/18 21:00 07/19/18 20:59 Folic Acid (Folate) 5 mg DAILY ORAL 06/15/18 11:15 07/15/18 11:14 06/18/18 09:25 Lactobacillus Acidophilus (Culturelle) 1 tab THREE TIMES A DAY ORAL 06/14/18 18:00 07/14/18 17:59 06/18/18 16:57 Lorazepam (Ativan 2mg/ml 1ml) 1 mg Q4H PRN IV For Anxiety 06/18/18 11:00 06/25/18 10:59 Mirtazapine (Remeron) 15 mg BEDTIME ORAL 06/12/18 21:00 07/12/18 20:59 06/17/18 21:19 Morphine Sulfate (Morphine Sulfate) 4 mg Q4H PRN IVP Severe Pain (Pain Scale 7-10) 06/18/18 11:00 06/25/18 10:59 06/18/18 11:25 Nitroglycerin (Ntg) 0.4 mg Q5M X 3 DOSES PRN SL Prn Chest Pain 06/12/18 09:30 07/12/18 09:29 Ondansetron HCl (Zofran) 4 mg Q6H PRN IVP Nausea & Vomiting 06/12/18 09:30 07/12/18 09:29 06/15/18 09:32 Pantoprazole (Protonix) 40 mg EVERY 12 HOURS ORAL 06/14/18 21:00 07/14/18 20:59 06/18/18 09:25 Patient Own Medication (Patient's Own Med) 1 ea DAILY ORAL 06/13/18 15:30 07/13/18 15:29 06/18/18 09:20 Patient Own Medication (Patient's Own Med) 1 ea DAILY ORAL 06/13/18 15:30 07/13/18 15:29 06/18/18 09:20 Promethazine HCl (Phenergan) 25 mg Q6H PRN IM REFRACTORY N/V 06/12/18 09:30 07/12/18 09:29 Temazepam (Restoril) 15 mg HSPRN PRN ORAL Insomnia 06/18/18 21:00 06/25/18 20:59 Tigecycline 50 mg/ Sodium Chloride 110 ml @ 220 mls/hr EVERY 12 HOURS IVPB 06/17/18 09:00 06/24/18 08:59 06/18/18 09:20 Trimethoprim/ Sulfamethoxazole (Bactrim Single Strength) 1 tab DAILY ORAL 06/17/18 09:00 06/24/18 08:59 06/18/18 09:25 Vancomycin HCl (Firvanq) 125 mg FOUR TIMES A DAY ORAL 06/13/18 09:00 06/20/18 08:59 06/18/18 16:59 Allergies: Coded Allergies: No Known Allergies (Unverified , 10/21/17) ROS Limited/Unobtainable: No Constitutional: Reports: no symptoms HEENT: Reports: no symptoms Cardiovascular: Reports: no symptoms Respiratory: Reports: no symptoms Gastrointestinal/Abdominal: Reports: diarrhea Genitourinary: Reports: no symptoms Neurologic/Psychiatric: Reports: no symptoms Subjective 37 YO M with history of HIV, kaposi's Sarcoma and Castleman Dis admitted with nausea, vomiting and diarrhea. Now C. Diff. Cover for Int Med-Dr Gtz. Fever to 101.8 Objective Last Vital Signs Date Time Temp Pulse Resp B/P (MAP) Pulse Ox O2 Delivery O2 Flow Rate FiO2 06/18/18 16:50 101.8 127 22 99/63 (75) 100 06/18/18 09:56 Room Air Laboratory Tests Test 06/17/18 18:09 06/18/18 05:50 Stool Occult Blood Positive (NEGATIVE) White Blood Count 5.9 K/UL (4.8-10.8) Red Blood Count 3.06 M/UL (4.70-6.10) L Hemoglobin 7.8 G/DL (14.2-18.0) L Hematocrit 24.4 % (42.0-52.0) L Mean Corpuscular Volume 80 FL (80-99) Mean Corpuscular Hemoglobin 25.6 PG (27.0-31.0) L Mean Corpuscular Hemoglobin Concent 32.1 G/DL (32.0-36.0) Red Cell Distribution Width 19.9 % (11.6-14.8) H Platelet Count 25 K/UL (150-450) L Mean Platelet Volume 7.4 FL (6.5-10.1) Neutrophils (%) (Auto) % (45.0-75.0) Lymphocytes (%) (Auto) % (20.0-45.0) Monocytes (%) (Auto) % (1.0-10.0) Eosinophils (%) (Auto) % (0.0-3.0) Basophils (%) (Auto) % (0.0-2.0) Differential Total Cells Counted 100 Neutrophils % (Manual) 70 % (45-75) Lymphocytes % (Manual) 21 % (20-45) Monocytes % (Manual) 7 % (1-10) Eosinophils % (Manual) 2 % (0-3) Basophils % (Manual) 0 % (0-2) Band Neutrophils 0 % (0-8) Platelet Estimate Decreased L Platelet Morphology Normal Hypochromasia 1+ Anisocytosis 2+ Microcytosis 1+ Sodium Level 133 MMOL/L (136-145) L Potassium Level 5.2 MMOL/L (3.5-5.1) H Chloride Level 103 MMOL/L (98-107) Carbon Dioxide Level 24 MMOL/L (21-32) Anion Gap 7 mmol/L (5-15) Blood Urea Nitrogen 33 mg/dL (7-18) H Creatinine 1.4 MG/DL (0.55-1.30) H Estimat Glomerular Filtration Rate > 60 mL/min (>60) Glucose Level 96 MG/DL (74-106) Calcium Level 6.9 MG/DL (8.5-10.1) L Magnesium Level 2.0 MG/DL (1.8-2.4) Intake and Output 06/17/18 06/18/18 18:59 06:59 Intake Total 810 ml 746 ml Output Total 500 ml 1900 ml Balance 310 ml -1154 ml Intake Oral 500 ml 636 ml IV Total 310 ml 110 ml Output Urine Total 500 ml 1900 ml # Bowel Movements 2 4 Objective PHYSICAL EXAMINATION: GENERAL: The patient is awake, alert, oriented, chronic ill-appearing, and cachectic. HEAD AND NECK: Pupils reactive to light. Anicteric. Has a strabismus with disconjugate gait. Neck was supple. No JVD. LUNGS: Good air entry. No wheezing or rales. HEART: Tachycardia; Reveals S1, S2. Regular rhythm. No gallops. ABDOMEN: Soft. Mildly distended. No rebound tenderness. No fluid shift. EXTREMITIES: No cyanosis, clubbing, or edema. Muscle atrophy with discoloration of the bilateral lower extremity with hyperpigmentation, and rashes of bilateral lower extremity was noted. NEUROLOGIC: ICE SKATING COACH II through XII grossly intact. Motor is 5/5 in all extremities. Gait was not assessed due to the patient's status. Assessment/Plan Assessment/Plan ASSESSMENT: 1. Intractable nausea and vomiting. 2. Severe protein-calorie malnutrition. 3. Hyponatremia. 4. History of HIV/AIDS. 5. Kaposi sarcoma. 6. Castleman syndrome. 7. History of hepatitis B and C positive. 8. Anemia of chronic disease. 9. Thrombocytopenia. 10. Tachycardia 11. Clostridium difficile 12. Anemia 13. Fever PLAN: 1. Admit the patient to monitored unit. 2. We will follow up with Dr. Mobley from Infectious Disease consultation and Dr. Hester from Pulmonary Critical Care. 3. Monitor laboratory. 4. IV hydration. 5. Code status is Full Code. 6. Follow up with broad-spectrum antibiotic with Zosyn. 7. Monitor culture. 8. Anti-emetic medication with Zofran. 9. Resume home medication. 10. ?dehydration due to nausea and diarrhea?-cardiology consult-Dr Howe 11. Oral vanco per ID 12. Patient refusing bone marrow vs lymph node biopsy for castleman's dis-see onc note 13. S/P Transfusion 2 units PRBC 06/15/18 Adam Padron MD June 18, 2018 17:08
--- NOTE | 2018-06-18 17:27 | Infectious Diseases Prog Note ---
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 Recommend repeat/follow- up -Abd US: Cholelithiasis. Minimal pericholecystic fluid. Correlate clinically for cholecystitis. Thrombocytopenia Anemia CKD Diffuse lymphadenopathy- Ddx: CMV disease (ie colitis), Diffuse MAC, recurrente Castleman, HIV related, lymphoma -05/18 s/p L axillary lymph node biopsy -path fragments of benign lymph node with pronounced polytypic plasmacytosis; focally + HHV8. 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 -05/16/18 CT chest: Mediastinal, axillary, and supraclavicular lymphadenopathy , enlarged compared to the prior CT of the chest. Largest left axillary node measures 3.4 x 2.4 cm. Largest supraclavicular node on the left measures 3.8 x 2.8 cm. Largest mediastinal nodes include a 2.2 x 1.6 cm pretracheal node and a 2.3 x 1.6 cm subcarinal node. Small layering right pleural effusion with fluid in the minor fissure. Kasie-bronchovascular groundglass haziness and nodularity in the right lower lobe. Scattered paraseptal emphysematous changes, predominantly in the upper lung zones. -05/16/18 CT abd/p: Diffuse edema and haziness throughout the mesenteric root. Not significantly changed compared to the visualized portions of the mesenteric root in the prior CT of the chest dated 10/22/17. Mesenteric, retroperitoneal, and inguinal lymphadenopathy. Largest retroperitoneal node measures 3.1 x 2.5 x 2.0 cm to left of the IVC (series 8 image 56, series 10 image 23). Largest left inguinal left node measures 2.9 x 2.5 cm (series 8 image 90). Mild fluid distention and air-fluid levels throughout the colon, which may suggest mild colitis and/or diarrheal disease. No evidence of bowel obstruction. Cholelithiasis without gallbladder wall thickening or ductal dilatation. Scattered subcentimeter hypodensities throughout the spleen, possibly tiny simple cysts. Subcentimeter simple-appearing left renal cortical cysts. Mild urinary bladder wall thickening, most likely related to underdistention. -CT head: . Opacification of the right maxillary sinus, right frontal sinus , and mucosal thickening throughout the ethmoid air cells and left maxillary sinus, suggestive of sinusitis. Partial opacification of the inferior posterior aspect of the left mastoid air cells, suggesting small left mastoid effusion. 04/2018- Cr Ag , T spot, CMV PCR, CMV IgM neg - 10/22/17- CT show reticular opacity and significant lymphadenopathy 10/23/17 - CT abd/pel Lymphadenopathy, Enlarged Pancrease mild B/L hydronephrosis -Blasto, Histo, CrAg neg 11/21/16 - Quantiferon negative (Out Side lab) Recent Colitis -04/2018 Cdiff neg -stool cx normal phi - O and P neg x3 HIV/AIDS- questionable compliance to ARV (dx 1999)- on Truvada and Dolutegravir -04/2018 HIV VL p, Cd4 64 (9.1%); VL 100 ?decrease due to non compliance, however low viremia (will expect higher viremia if non compliance) -10/2017 HIV VL ND, CD4 87 (12.4%) -09/01/17 - CD4 192 and VL - ND (Out Side labs) -no hx of resistance ; previously on Truvada, Reyataz and Norvir -Has been above 200 in the past. Came down with Chemo hx pancreatitis 10/2017 hx of Kaposi's sarcoma/Castleman's disease s/p chemotherapy - S/P Chemo ending 07/17/17 Last PET 08/12/17 - show stable/not worsening lymphadenopathy Hep C+ -VL ND hx of Chronic Hep B, VL <15 09/01/17 RPR, GC/CL : negative hx of DVT Plan: -Continue PO Vancomycin # 4/10-14 ( pt refusing ) ,and Tygacil d# 3 empirically for now ( probable Hosp acquired infection on the setting of CDiff) Bactrim for PCP PPC - 06/13 SP Zosyn #2 -06/12 SP Flagyl x1 - 05/21/18 SP Ceftriaxone #5 and Flagyl #7 for colitis -05/15/18 SP empiric IV Vancomycin #4 and switch empiric Zosyn #3 to Ceftriaxone and Flagyl -05/16/18 SP Tamiflu #4 - 05/12 SP Cefepime x1 -f/u cx -Monitor CBC/CMP, temperatures -Heme onc c/s -Will need excisional biopsy and bone marrow biopsy- high suspicion for recurrence of Castleman's disease -f/u HIV VL and genotype, Hep B PCR, -f/u CXR 2 v am -f/u AFB bcx, sp cx, PCP DFA - Fungal blood Cx - Stool Cryptosporidium, Isospora, Cyclospora -aspiration precautions Subjective Allergies: Coded Allergies: No Known Allergies (Unverified , 10/21/17) Subjective no more diarrhea Objective Vital Signs Last 24 Hour Vital Signs Date Time Temp Pulse Resp B/P (MAP) Pulse Ox O2 Delivery O2 Flow Rate FiO2 06/18/18 16:50 101.8 127 22 99/63 (75) 100 06/18/18 15:52 133 06/18/18 12:13 99.0 130 22 105/73 (84) 99 06/18/18 12:02 130 105/73 06/18/18 12:00 125 06/18/18 11:55 99.8 06/18/18 09:56 Room Air 06/18/18 08:36 99.8 133 22 111/70 (84) 100 06/18/18 08:00 140 06/18/18 04:00 132 06/18/18 04:00 99.3 129 20 103/69 (80) 96 06/18/18 00:00 112 06/18/18 00:00 98.1 78 18 110/69 (83) 97 06/17/18 21:00 Room Air 06/17/18 20:00 133 06/17/18 20:00 98.0 122 24 109/62 (78) 98 06/17/18 18:16 99.8 Height (Feet): 6 Height (Inches): 0.00 Weight (Pounds): 147 HEENT: anicteric Respiratory/Chest: no respiratory distress Cardiovascular: normal rate Abdomen: soft, non tender Laboratory Tests Test 06/17/18 18:09 06/18/18 05:50 Stool Occult Blood Positive (NEGATIVE) White Blood Count 5.9 K/UL (4.8-10.8) Red Blood Count 3.06 M/UL (4.70-6.10) L Hemoglobin 7.8 G/DL (14.2-18.0) L Hematocrit 24.4 % (42.0-52.0) L Mean Corpuscular Volume 80 FL (80-99) Mean Corpuscular Hemoglobin 25.6 PG (27.0-31.0) L Mean Corpuscular Hemoglobin Concent 32.1 G/DL (32.0-36.0) Red Cell Distribution Width 19.9 % (11.6-14.8) H Platelet Count 25 K/UL (150-450) L Mean Platelet Volume 7.4 FL (6.5-10.1) Neutrophils (%) (Auto) % (45.0-75.0) Lymphocytes (%) (Auto) % (20.0-45.0) Monocytes (%) (Auto) % (1.0-10.0) Eosinophils (%) (Auto) % (0.0-3.0) Basophils (%) (Auto) % (0.0-2.0) Differential Total Cells Counted 100 Neutrophils % (Manual) 70 % (45-75) Lymphocytes % (Manual) 21 % (20-45) Monocytes % (Manual) 7 % (1-10) Eosinophils % (Manual) 2 % (0-3) Basophils % (Manual) 0 % (0-2) Band Neutrophils 0 % (0-8) Platelet Estimate Decreased L Platelet Morphology Normal Hypochromasia 1+ Anisocytosis 2+ Microcytosis 1+ Sodium Level 133 MMOL/L (136-145) L Potassium Level 5.2 MMOL/L (3.5-5.1) H Chloride Level 103 MMOL/L (98-107) Carbon Dioxide Level 24 MMOL/L (21-32) Anion Gap 7 mmol/L (5-15) Blood Urea Nitrogen 33 mg/dL (7-18) H Creatinine 1.4 MG/DL (0.55-1.30) H Estimat Glomerular Filtration Rate > 60 mL/min (>60) Glucose Level 96 MG/DL (74-106) Calcium Level 6.9 MG/DL (8.5-10.1) L Magnesium Level 2.0 MG/DL (1.8-2.4) Current Medications Medications (Trade) Dose Ordered Sig/Yessica Route PRN Reason Start Time Stop Time Status Last Admin Dose Admin Acetaminophen (Tylenol) 650 mg Q4H PRN ORAL fever 06/12/18 09:30 07/12/18 09:29 06/18/18 16:58 Carvedilol (Coreg) 3.125 mg EVERY 12 HOURS ORAL 06/18/18 21:00 07/18/18 20:59 Dextrose (Dextrose 50%) 25 ml Q30M PRN IV Hypoglycemia 06/12/18 09:30 07/12/18 09:29 Dextrose (Dextrose 50%) 50 ml Q30M PRN IV Hypoglycemia 06/12/18 09:30 07/12/18 09:29 Diphenhydramine HCl (Benadryl) 25 mg Q6H PRN ORAL Itching/Pruritis 06/12/18 09:30 07/12/18 09:29 Dronabinol (Marinol) 2.5 mg TID ORAL 06/15/18 13:00 07/13/18 17:59 06/18/18 16:57 Epoetin Jeferson (Epoetin Jeferson-EPBX(NON ESRD)) 10,000 unit SUBQ 06/19/18 21:00 07/19/18 20:59 Folic Acid (Folate) 5 mg DAILY ORAL 06/15/18 11:15 07/15/18 11:14 06/18/18 09:25 Lactobacillus Acidophilus (Culturelle) 1 tab THREE TIMES A DAY ORAL 06/14/18 18:00 07/14/18 17:59 06/18/18 16:57 Lorazepam (Ativan 2mg/ml 1ml) 1 mg Q4H PRN IV For Anxiety 06/18/18 11:00 06/25/18 10:59 Mirtazapine (Remeron) 15 mg BEDTIME ORAL 06/12/18 21:00 07/12/18 20:59 06/17/18 21:19 Morphine Sulfate (Morphine Sulfate) 4 mg Q4H PRN IVP Severe Pain (Pain Scale 7-10) 06/18/18 11:00 06/25/18 10:59 06/18/18 17:09 Nitroglycerin (Ntg) 0.4 mg Q5M X 3 DOSES PRN SL Prn Chest Pain 06/12/18 09:30 07/12/18 09:29 Ondansetron HCl (Zofran) 4 mg Q6H PRN IVP Nausea & Vomiting 06/12/18 09:30 07/12/18 09:29 06/15/18 09:32 Pantoprazole (Protonix) 40 mg EVERY 12 HOURS ORAL 06/14/18 21:00 07/14/18 20:59 06/18/18 09:25 Patient Own Medication (Patient's Own Med) 1 ea DAILY ORAL 06/13/18 15:30 07/13/18 15:29 06/18/18 09:20 Patient Own Medication (Patient's Own Med) 1 ea DAILY ORAL 06/13/18 15:30 07/13/18 15:29 06/18/18 09:20 Promethazine HCl (Phenergan) 25 mg Q6H PRN IM REFRACTORY N/V 06/12/18 09:30 07/12/18 09:29 Temazepam (Restoril) 15 mg HSPRN PRN ORAL Insomnia 06/18/18 21:00 06/25/18 20:59 Tigecycline 50 mg/ Sodium Chloride 110 ml @ 220 mls/hr EVERY 12 HOURS IVPB 06/17/18 09:00 06/24/18 08:59 06/18/18 09:20 Trimethoprim/ Sulfamethoxazole (Bactrim Single Strength) 1 tab DAILY ORAL 06/17/18 09:00 06/24/18 08:59 06/18/18 09:25 Vancomycin HCl (Firvanq) 125 mg FOUR TIMES A DAY ORAL 06/13/18 09:00 06/20/18 08:59 06/18/18 16:59 Jez Mendoza MD June 18, 2018 17:27
--- NOTE | 2018-06-18 19:40 | NUR ---
HAND-OFF: Report given to YVONNE JOSHUA.
--- NOTE | 2018-06-18 19:54 | NUR ---
NURSE NOTES: Received pt from TRES Cole. Pt asleep. Bed in lowest position. Call light within reach. Will continue to monitor.
[2018-06-18 20:00] VITALS: BP 98/53
[2018-06-19] VITALS (7 sets, daily range): BP systolic 92–103; BP diastolic 45–65
[2018-06-19 06:58] LABS: ALANINE AMINOTRANSFERASE 8 U/L (12-78); ALBUMIN < 0.6 G/DL (3.4-5.0); ALKALINE PHOSPHATASE 91 U/L (46-116); ANION GAP 4 mmol/L (5-15); ASPARTATE AMINO TRANSFERASE 33 U/L (15-37); BILIRUBIN,TOTAL 0.4 MG/DL (0.2-1.0); BLOOD UREA NITROGEN 36 mg/dL (7-18); CALCIUM 6.5 MG/DL (8.5-10.1); CARBON DIOXIDE 25 MMOL/L (21-32); CHLORIDE 102 MMOL/L (98-107); CREATININE 1.4 MG/DL (0.55-1.30); POTASSIUM 4.9 MMOL/L (3.5-5.1); SODIUM 131 MMOL/L (136-145)
[2018-06-19 07:05] LABS: PHOSPHORUS 4.1 MG/DL (2.5-4.9)
[2018-06-19 07:06] LABS: HEMATOCRIT 19.2 % (42.0-52.0); MEAN CORPUSCULAR VOLUME 79 FL (80-99); PLATELET COUNT 26 K/UL (150-450); RED BLOOD COUNT 2.42 M/UL (4.70-6.10); RED CELL DISTRIBUTION WIDTH 20.1 % (11.6-14.8); WHITE BLOOD COUNT 4.9 K/UL (4.8-10.8)
[2018-06-19 07:21] LABS: HEMOGLOBIN 6.2 G/DL (14.2-18.0)
--- NOTE | 2018-06-19 07:38 | NUR ---
HAND-OFF: Report given to TRES Cole. Endorsed pts hgb.
--- NOTE | 2018-06-19 07:49 | NUR ---
NURSE NOTES: Received report from TRES Patel. Pt in bed resting with open eyes, A/O x 4.HGB reported 6.2. made aware. Patient able to make needs known. call light and frequent used objects are with in reach, rails up x 2 for safety reason. Will cont to monitor.
--- NOTE | 2018-06-19 08:00 | NUR ---
NURSE NOTES: ORDERED 1 UNIT PRBC
[2018-06-19] MEDS: Dronabinol 2.5mg Cap ORAL SCH ×3 (08:38→17:37)
[2018-06-19] MEDS: Lactobacillus-GG tablet ORAL SCH ×3 (08:38→17:37)
[2018-06-19] MEDS: Vancomycin oral 125mg/2.5ml ORAL SCH ×4 (08:39→22:22)
[2018-06-19] MEDS: Bactrim SS Tab ORAL SCH (08:39)
[2018-06-19] MEDS: Morphine Sulfate 4mg/ml Inj (IV USE ONLY) IVP PRN ×2 (08:40→13:07)
[2018-06-19] MEDS: Tigecycline 50 MG in NS 110 ML IVPB SCH (08:44)
--- NOTE | 2018-06-19 10:21 | GI Progress Note ---
Assessment/Plan Problems: (1) Protein-calorie malnutrition, severe ICD Codes: E43 - Unspecified severe protein-calorie malnutrition SNOMED: 399832682, 533372148, 253615052 (2) Cyclic vomiting syndrome ICD Codes: G43.A0 - Cyclical vomiting, not intractable SNOMED: 57235987 (3) Nausea & vomiting ICD Codes: R11.2 - Nausea with vomiting, unspecified SNOMED: 05082514 (4) Diarrhea ICD Codes: R19.7 - Diarrhea, unspecified SNOMED: 55024510 (5) Kaposi disease ICD Codes: Q82.1 - Xeroderma pigmentosum SNOMED: 57418645 (6) Anemia ICD Codes: D64.9 - Anemia, unspecified SNOMED: 122500645 (7) generalized weakness, kaposi sarcoma Status: unchanged Status Narrative Discussed with Dr. Grande. Assessment/Plan C. difficile positive OB stool positive on marinol with good response push PO vanco H2B fu ID fu H&H, transfuse if hgb below 7 supportive care The patient was seen and examined at bedside and all new and available data was reviewed in the patients chart. I agree with the above findings, impression and plan. (Patient seen earlier today. Signature stamp does not reflect patient encounter time.). - Michael Grande MD Subjective Subjective Generalized weakness continues to have diarrhea, but has improved Objective Last 24 Hour Vital Signs Date Time Temp Pulse Resp B/P (MAP) Pulse Ox O2 Delivery O2 Flow Rate FiO2 06/19/18 09:40 Room Air 06/19/18 09:10 96.9 06/19/18 08:39 121 100/59 06/19/18 08:37 96.9 121 20 100/59 (73) 100 06/19/18 04:00 108 06/19/18 04:00 96.6 112 19 99/55 (70) 100 06/19/18 00:00 108 06/19/18 00:00 97.9 116 18 99/65 (76) 97 06/18/18 21:00 Room Air 06/18/18 20:00 97.9 114 18 98/53 (68) 100 06/18/18 20:00 113 06/18/18 17:28 99.2 06/18/18 16:50 101.8 127 22 99/63 (75) 100 06/18/18 15:52 133 06/18/18 12:13 99.0 130 22 105/73 (84) 99 06/18/18 12:02 130 105/73 06/18/18 12:00 125 Intake and Output 06/18/18 06/19/18 19:00 07:00 Output Total 750 ml Balance -750 ml Output Urine Total 750 ml # Voids 4 # Bowel Movements 1 2 Laboratory Tests Test 06/19/18 06:05 White Blood Count 4.9 K/UL (4.8-10.8) Red Blood Count 2.42 M/UL (4.70-6.10) L Hemoglobin 6.2 G/DL (14.2-18.0) *L Hematocrit 19.2 % (42.0-52.0) L Mean Corpuscular Volume 79 FL (80-99) L Mean Corpuscular Hemoglobin 25.6 PG (27.0-31.0) L Mean Corpuscular Hemoglobin Concent 32.3 G/DL (32.0-36.0) Red Cell Distribution Width 20.1 % (11.6-14.8) H Platelet Count 26 K/UL (150-450) L Mean Platelet Volume 7.2 FL (6.5-10.1) Neutrophils (%) (Auto) % (45.0-75.0) Lymphocytes (%) (Auto) % (20.0-45.0) Monocytes (%) (Auto) % (1.0-10.0) Eosinophils (%) (Auto) % (0.0-3.0) Basophils (%) (Auto) % (0.0-2.0) Differential Total Cells Counted 100 Neutrophils % (Manual) 63 % (45-75) Lymphocytes % (Manual) 31 % (20-45) Monocytes % (Manual) 5 % (1-10) Eosinophils % (Manual) 1 % (0-3) Basophils % (Manual) 0 % (0-2) Band Neutrophils 0 % (0-8) Platelet Estimate Decreased L Platelet Morphology Normal Anisocytosis 2+ Microcytosis 1+ Sodium Level 131 MMOL/L (136-145) L Potassium Level 4.9 MMOL/L (3.5-5.1) Chloride Level 102 MMOL/L (98-107) Carbon Dioxide Level 25 MMOL/L (21-32) Anion Gap 4 mmol/L (5-15) L Blood Urea Nitrogen 36 mg/dL (7-18) H Creatinine 1.4 MG/DL (0.55-1.30) H Estimat Glomerular Filtration Rate > 60 mL/min (>60) Glucose Level 93 MG/DL (74-106) Uric Acid 6.5 MG/DL (2.6-7.2) Calcium Level 6.5 MG/DL (8.5-10.1) L Phosphorus Level 4.1 MG/DL (2.5-4.9) Magnesium Level 1.9 MG/DL (1.8-2.4) Total Bilirubin 0.4 MG/DL (0.2-1.0) Aspartate Amino Transf (AST/SGOT) 33 U/L (15-37) Alanine Aminotransferase (ALT/SGPT) 8 U/L (12-78) L Alkaline Phosphatase 91 U/L (46-116) Total Protein 5.1 G/DL (6.4-8.2) L Albumin < 0.6 G/DL (3.4-5.0) L Globulin g/dL Height (Feet): 6 Height (Inches): 0.00 Weight (Pounds): 147 General Appearance: WD/WN, no apparent distress, alert, thin Cardiovascular: normal rate Respiratory/Chest: normal breath sounds, no respiratory distress Abdominal Exam: normal bowel sounds, non tender, soft Extremities: normal range of motion, non-tender Simeon Fall NP June 19, 2018 10:21
--- NOTE | 2018-06-19 11:02 | Pulmonology Progress Note ---
Assessment/Plan Problems: (1) Anemia (2) Severe sepsis (3) HIV disease (4) ATN (acute tubular necrosis) (5) Kaposi disease (6) Cyclic vomiting syndrome (7) Protein-calorie malnutrition, severe (8) Lymphadenopathy Assessment/Plan Hem better watch Na, iv abx Cdiff still positive, on PO Vancomycin prbc when hem less than 7 check cultures on HIV meds f/u ID recommendations Subjective ROS Limited/Unobtainable: No Constitutional: Reports: no symptoms HEENT: Repors: no symptoms Respiratory: Reports: no symptoms Allergies: Coded Allergies: No Known Allergies (Unverified , 10/21/17) Objective Last 24 Hour Vital Signs Date Time Temp Pulse Resp B/P (MAP) Pulse Ox O2 Delivery O2 Flow Rate FiO2 06/19/18 09:40 Room Air 06/19/18 09:10 96.9 06/19/18 08:39 121 100/59 06/19/18 08:37 96.9 121 20 100/59 (73) 100 06/19/18 04:00 108 06/19/18 04:00 96.6 112 19 99/55 (70) 100 06/19/18 00:00 108 06/19/18 00:00 97.9 116 18 99/65 (76) 97 06/18/18 21:00 Room Air 06/18/18 20:00 97.9 114 18 98/53 (68) 100 06/18/18 20:00 113 06/18/18 17:28 99.2 06/18/18 16:50 101.8 127 22 99/63 (75) 100 06/18/18 15:52 133 06/18/18 12:13 99.0 130 22 105/73 (84) 99 06/18/18 12:02 130 105/73 06/18/18 12:00 125 Intake and Output 06/18/18 06/19/18 19:00 07:00 Output Total 750 ml Balance -750 ml Output Urine Total 750 ml # Voids 4 # Bowel Movements 1 2 Objective General Appearance: WD/WN HEENT: normocephalic, atraumatic Respiratory/Chest: chest wall non-tender, crackles/rales Cardiovascular: normal peripheral pulses, no arrhythmia Abdomen: normal bowel sounds, soft, non tender Genitourinary: normal external genitalia Extremities: no clubbing Skin: no rash, no ulcers Neurologic/Psychiatric: travel guide II-XII grossly normal Laboratory Tests 06/19/18 06:05: White Blood Count 4.9, Red Blood Count 2.42L, Hemoglobin 6.2*L, Hematocrit 19.2L , Mean Corpuscular Volume 79L, Mean Corpuscular Hemoglobin 25.6L, Mean Corpuscular Hemoglobin Concent 32.3, Red Cell Distribution Width 20.1H, Platelet Count 26L, Mean Platelet Volume 7.2, Neutrophils (%) (Auto) , Lymphocytes (%) (Auto) , Monocytes (%) (Auto) , Eosinophils (%) (Auto) , Basophils (%) (Auto) , Differential Total Cells Counted 100, Neutrophils % ( Manual) 63, Lymphocytes % (Manual) 31, Monocytes % (Manual) 5, Eosinophils % ( Manual) 1, Basophils % (Manual) 0, Band Neutrophils 0, Platelet Estimate DecreasedL, Platelet Morphology Normal, Anisocytosis 2+, Microcytosis 1+, Sodium Level 131L, Potassium Level 4.9, Chloride Level 102, Carbon Dioxide Level 25, Anion Gap 4L, Blood Urea Nitrogen 36H, Creatinine 1.4H, Estimat Glomerular Filtration Rate > 60, Glucose Level 93, Uric Acid 6.5, Calcium Level 6.5L, Phosphorus Level 4.1, Magnesium Level 1.9, Total Bilirubin 0.4, Aspartate Amino Transf (AST/SGOT) 33, Alanine Aminotransferase (ALT/SGPT) 8L, Alkaline Phosphatase 91, Total Protein 5.1L, Albumin < 0.6L, Globulin Current Medications Medications (Trade) Dose Ordered Sig/Yessica Route PRN Reason Start Time Stop Time Status Last Admin Dose Admin Acetaminophen (Tylenol) 650 mg Q4H PRN ORAL fever 06/12/18 09:30 07/12/18 09:29 06/18/18 16:58 Carvedilol (Coreg) 3.125 mg EVERY 12 HOURS ORAL 06/18/18 21:00 07/18/18 20:59 06/19/18 08:39 Dextrose (Dextrose 50%) 25 ml Q30M PRN IV Hypoglycemia 06/12/18 09:30 07/12/18 09:29 Dextrose (Dextrose 50%) 50 ml Q30M PRN IV Hypoglycemia 06/12/18 09:30 07/12/18 09:29 Diphenhydramine HCl (Benadryl) 25 mg Q6H PRN ORAL Itching/Pruritis 06/12/18 09:30 07/12/18 09:29 Dronabinol (Marinol) 2.5 mg TID ORAL 06/15/18 13:00 07/13/18 17:59 06/19/18 08:38 Epoetin Jeferson (Epoetin Jeferson-EPBX(NON ESRD)) 10,000 unit FRI- SUBQ 06/19/18 21:00 07/19/18 20:59 Folic Acid (Folate) 5 mg DAILY ORAL 06/15/18 11:15 07/15/18 11:14 06/19/18 08:39 Lactobacillus Acidophilus (Culturelle) 1 tab THREE TIMES A DAY ORAL 06/14/18 18:00 07/14/18 17:59 06/19/18 08:38 Lorazepam (Ativan 2mg/ml 1ml) 1 mg Q4H PRN IV For Anxiety 06/18/18 11:00 06/25/18 10:59 Mirtazapine (Remeron) 15 mg BEDTIME ORAL 06/12/18 21:00 07/12/18 20:59 06/18/18 21:52 Morphine Sulfate (Morphine Sulfate) 4 mg Q4H PRN IVP Severe Pain (Pain Scale 7-10) 06/18/18 11:00 06/25/18 10:59 06/19/18 08:40 Nitroglycerin (Ntg) 0.4 mg Q5M X 3 DOSES PRN SL Prn Chest Pain 06/12/18 09:30 07/12/18 09:29 Ondansetron HCl (Zofran) 4 mg Q6H PRN IVP Nausea & Vomiting 06/12/18 09:30 07/12/18 09:29 06/15/18 09:32 Pantoprazole (Protonix) 40 mg EVERY 12 HOURS ORAL 06/14/18 21:00 07/14/18 20:59 06/19/18 08:38 Patient Own Medication (Patient's Own Med) 1 ea DAILY ORAL 06/13/18 15:30 07/13/18 15:29 06/19/18 08:37 Patient Own Medication (Patient's Own Med) 1 ea DAILY ORAL 06/13/18 15:30 07/13/18 15:29 06/19/18 08:37 Promethazine HCl (Phenergan) 25 mg Q6H PRN IM REFRACTORY N/V 06/12/18 09:30 07/12/18 09:29 Temazepam (Restoril) 15 mg HSPRN PRN ORAL Insomnia 06/18/18 21:00 06/25/18 20:59 Tigecycline 50 mg/ Sodium Chloride 110 ml @ 220 mls/hr EVERY 12 HOURS IVPB 06/17/18 09:00 06/24/18 08:59 06/19/18 08:44 Trimethoprim/ Sulfamethoxazole (Bactrim Single Strength) 1 tab DAILY ORAL 06/17/18 09:00 06/24/18 08:59 06/19/18 08:39 Vancomycin HCl (Firvanq) 125 mg FOUR TIMES A DAY ORAL 06/13/18 09:00 06/20/18 08:59 06/19/18 08:39 Ya Hester MD June 19, 2018 11:02
[2018-06-19] MEDS ORDERED: VANCOCIN250 MG ORAL (11:03)
--- NOTE | 2018-06-19 11:29 | NUR ---
NURSE NOTES: UNABLE TO STAR BLOOD TRANSFUSION AT THIS TIME D/T ELEVATED TEM 100.4 DR. LOCO MADE AWARE. WILL START TRANSFUSION WHEN PATIENT STABLE ORDERED.
--- NOTE | 2018-06-19 11:52 | Cardiac Electrophysiology PN ---
Assessment/Plan Assessment/Plan 1. Sinus tachycardia, due to sepsis, anemia and pain. Ruled out for [place]. EKG showed no acute ischemic changes. No evidence of atrial fibrillation or supraventricular tachycardia. EF 75%. S/P transfusion. On broad spectrum iv antibiotics 2. History of hypertension. Stable off on antihypertensive agents. 3. 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 5. History of pancreatitis and hepatitis B and C positive. 6. Severe anemia. Hb 9 to 6.4. S/P transfusion 7. Hyponatremia Na 127, s/p 3% saline. Na 133 DW RN Subjective Subjective In sinus tach 110-120s. On iv fluid and iv abx.No CP or SOB Objective Last 24 Hour Vital Signs Date Time Temp Pulse Resp B/P (MAP) Pulse Ox O2 Delivery O2 Flow Rate FiO2 06/19/18 11:48 100.4 129 20 103/45 (64) 99 06/19/18 09:40 Room Air 06/19/18 09:10 96.9 06/19/18 08:39 121 100/59 06/19/18 08:37 96.9 121 20 100/59 (73) 100 06/19/18 08:00 115 06/19/18 04:00 108 06/19/18 04:00 96.6 112 19 99/55 (70) 100 06/19/18 00:00 108 06/19/18 00:00 97.9 116 18 99/65 (76) 97 06/18/18 21:00 Room Air 06/18/18 20:00 97.9 114 18 98/53 (68) 100 06/18/18 20:00 113 06/18/18 17:28 99.2 06/18/18 16:50 101.8 127 22 99/63 (75) 100 06/18/18 15:52 133 06/18/18 12:13 99.0 130 22 105/73 (84) 99 06/18/18 12:02 130 105/73 06/18/18 12:00 125 Intake and Output 06/18/18 06/19/18 19:00 07:00 Output Total 750 ml Balance -750 ml Output Urine Total 750 ml # Voids 4 # Bowel Movements 1 2 Laboratory Tests Test 06/19/18 06:05 White Blood Count 4.9 K/UL (4.8-10.8) Red Blood Count 2.42 M/UL (4.70-6.10) L Hemoglobin 6.2 G/DL (14.2-18.0) *L Hematocrit 19.2 % (42.0-52.0) L Mean Corpuscular Volume 79 FL (80-99) L Mean Corpuscular Hemoglobin 25.6 PG (27.0-31.0) L Mean Corpuscular Hemoglobin Concent 32.3 G/DL (32.0-36.0) Red Cell Distribution Width 20.1 % (11.6-14.8) H Platelet Count 26 K/UL (150-450) L Mean Platelet Volume 7.2 FL (6.5-10.1) Neutrophils (%) (Auto) % (45.0-75.0) Lymphocytes (%) (Auto) % (20.0-45.0) Monocytes (%) (Auto) % (1.0-10.0) Eosinophils (%) (Auto) % (0.0-3.0) Basophils (%) (Auto) % (0.0-2.0) Differential Total Cells Counted 100 Neutrophils % (Manual) 63 % (45-75) Lymphocytes % (Manual) 31 % (20-45) Monocytes % (Manual) 5 % (1-10) Eosinophils % (Manual) 1 % (0-3) Basophils % (Manual) 0 % (0-2) Band Neutrophils 0 % (0-8) Platelet Estimate Decreased L Platelet Morphology Normal Anisocytosis 2+ Microcytosis 1+ Sodium Level 131 MMOL/L (136-145) L Potassium Level 4.9 MMOL/L (3.5-5.1) Chloride Level 102 MMOL/L (98-107) Carbon Dioxide Level 25 MMOL/L (21-32) Anion Gap 4 mmol/L (5-15) L Blood Urea Nitrogen 36 mg/dL (7-18) H Creatinine 1.4 MG/DL (0.55-1.30) H Estimat Glomerular Filtration Rate > 60 mL/min (>60) Glucose Level 93 MG/DL (74-106) Uric Acid 6.5 MG/DL (2.6-7.2) Calcium Level 6.5 MG/DL (8.5-10.1) L Phosphorus Level 4.1 MG/DL (2.5-4.9) Magnesium Level 1.9 MG/DL (1.8-2.4) Total Bilirubin 0.4 MG/DL (0.2-1.0) Aspartate Amino Transf (AST/SGOT) 33 U/L (15-37) Alanine Aminotransferase (ALT/SGPT) 8 U/L (12-78) L Alkaline Phosphatase 91 U/L (46-116) Total Protein 5.1 G/DL (6.4-8.2) L Albumin < 0.6 G/DL (3.4-5.0) L Globulin g/dL Objective HEAD AND NECK: no JVD. LUNGS: Decreased breath sounds. CARDIOVASCULAR: Tachycardic, S1, S2 with no gallop. ABDOMEN: Soft. EXTREMITIES: Chronic skin changes and edema. Toney Howe MD June 19, 2018 11:52
--- NOTE | 2018-06-19 13:06 | Internal Med Progress Note ---
Subjective Physician Name Alberto Gtz Attending Physician Alberto Gtz MD Current Medications Medications (Trade) Dose Ordered Sig/Yessica Route PRN Reason Start Time Stop Time Status Last Admin Dose Admin Acetaminophen (Tylenol) 650 mg Q4H PRN ORAL fever 06/12/18 09:30 07/12/18 09:29 06/19/18 11:26 Carvedilol (Coreg) 3.125 mg EVERY 12 HOURS ORAL 06/18/18 21:00 07/18/18 20:59 06/19/18 08:39 Dextrose (Dextrose 50%) 25 ml Q30M PRN IV Hypoglycemia 06/12/18 09:30 07/12/18 09:29 Dextrose (Dextrose 50%) 50 ml Q30M PRN IV Hypoglycemia 06/12/18 09:30 07/12/18 09:29 Diphenhydramine HCl (Benadryl) 25 mg Q6H PRN ORAL Itching/Pruritis 06/12/18 09:30 07/12/18 09:29 Dronabinol (Marinol) 2.5 mg TID ORAL 06/15/18 13:00 07/13/18 17:59 06/19/18 08:38 Epoetin Jeferson (Epoetin Jeferson-EPBX(NON ESRD)) 10,000 unit FRI-FRI-FRI SUBQ 06/19/18 21:00 07/19/18 20:59 Folic Acid (Folate) 5 mg DAILY ORAL 06/15/18 11:15 07/15/18 11:14 06/19/18 08:39 Lactobacillus Acidophilus (Culturelle) 1 tab THREE TIMES A DAY ORAL 06/14/18 18:00 07/14/18 17:59 06/19/18 08:38 Lorazepam (Ativan 2mg/ml 1ml) 1 mg Q4H PRN IV For Anxiety 06/18/18 11:00 06/25/18 10:59 Mirtazapine (Remeron) 15 mg BEDTIME ORAL 06/12/18 21:00 07/12/18 20:59 06/18/18 21:52 Morphine Sulfate (Morphine Sulfate) 4 mg Q4H PRN IVP Severe Pain (Pain Scale 7-10) 06/18/18 11:00 06/25/18 10:59 06/19/18 08:40 Nitroglycerin (Ntg) 0.4 mg Q5M X 3 DOSES PRN SL Prn Chest Pain 06/12/18 09:30 07/12/18 09:29 Ondansetron HCl (Zofran) 4 mg Q6H PRN IVP Nausea & Vomiting 06/12/18 09:30 07/12/18 09:29 06/15/18 09:32 Pantoprazole (Protonix) 40 mg EVERY 12 HOURS ORAL 06/14/18 21:00 07/14/18 20:59 06/19/18 08:38 Patient Own Medication (Patient's Own Med) 1 ea DAILY ORAL 06/13/18 15:30 07/13/18 15:29 06/19/18 08:37 Patient Own Medication (Patient's Own Med) 1 ea DAILY ORAL 06/13/18 15:30 07/13/18 15:29 06/19/18 08:37 Promethazine HCl (Phenergan) 25 mg Q6H PRN IM REFRACTORY N/V 06/12/18 09:30 07/12/18 09:29 Temazepam (Restoril) 15 mg HSPRN PRN ORAL Insomnia 06/18/18 21:00 06/25/18 20:59 Tigecycline 50 mg/ Sodium Chloride 110 ml @ 220 mls/hr EVERY 12 HOURS IVPB 06/17/18 09:00 06/24/18 08:59 06/19/18 08:44 Trimethoprim/ Sulfamethoxazole (Bactrim Single Strength) 1 tab DAILY ORAL 06/17/18 09:00 06/24/18 08:59 06/19/18 08:39 Vancomycin HCl (Firvanq) 125 mg FOUR TIMES A DAY ORAL 06/13/18 09:00 06/20/18 08:59 06/19/18 08:39 Allergies: Coded Allergies: No Known Allergies (Unverified , 10/21/17) Subjective awake, alert, responsive , NAD, tachycardia, Hgb: 6.2 Objective Last Vital Signs Date Time Temp Pulse Resp B/P (MAP) Pulse Ox O2 Delivery O2 Flow Rate FiO2 06/19/18 11:48 100.4 129 20 103/45 (64) 99 06/19/18 09:40 Room Air Laboratory Tests Test 06/19/18 06:05 White Blood Count 4.9 K/UL (4.8-10.8) Red Blood Count 2.42 M/UL (4.70-6.10) L Hemoglobin 6.2 G/DL (14.2-18.0) *L Hematocrit 19.2 % (42.0-52.0) L Mean Corpuscular Volume 79 FL (80-99) L Mean Corpuscular Hemoglobin 25.6 PG (27.0-31.0) L Mean Corpuscular Hemoglobin Concent 32.3 G/DL (32.0-36.0) Red Cell Distribution Width 20.1 % (11.6-14.8) H Platelet Count 26 K/UL (150-450) L Mean Platelet Volume 7.2 FL (6.5-10.1) Neutrophils (%) (Auto) % (45.0-75.0) Lymphocytes (%) (Auto) % (20.0-45.0) Monocytes (%) (Auto) % (1.0-10.0) Eosinophils (%) (Auto) % (0.0-3.0) Basophils (%) (Auto) % (0.0-2.0) Differential Total Cells Counted 100 Neutrophils % (Manual) 63 % (45-75) Lymphocytes % (Manual) 31 % (20-45) Monocytes % (Manual) 5 % (1-10) Eosinophils % (Manual) 1 % (0-3) Basophils % (Manual) 0 % (0-2) Band Neutrophils 0 % (0-8) Platelet Estimate Decreased L Platelet Morphology Normal Anisocytosis 2+ Microcytosis 1+ Sodium Level 131 MMOL/L (136-145) L Potassium Level 4.9 MMOL/L (3.5-5.1) Chloride Level 102 MMOL/L (98-107) Carbon Dioxide Level 25 MMOL/L (21-32) Anion Gap 4 mmol/L (5-15) L Blood Urea Nitrogen 36 mg/dL (7-18) H Creatinine 1.4 MG/DL (0.55-1.30) H Estimat Glomerular Filtration Rate > 60 mL/min (>60) Glucose Level 93 MG/DL (74-106) Uric Acid 6.5 MG/DL (2.6-7.2) Calcium Level 6.5 MG/DL (8.5-10.1) L Phosphorus Level 4.1 MG/DL (2.5-4.9) Magnesium Level 1.9 MG/DL (1.8-2.4) Total Bilirubin 0.4 MG/DL (0.2-1.0) Aspartate Amino Transf (AST/SGOT) 33 U/L (15-37) Alanine Aminotransferase (ALT/SGPT) 8 U/L (12-78) L Alkaline Phosphatase 91 U/L (46-116) Total Protein 5.1 G/DL (6.4-8.2) L Albumin < 0.6 G/DL (3.4-5.0) L Globulin g/dL Intake and Output 06/18/18 06/19/18 19:00 07:00 Output Total 750 ml Balance -750 ml Output Urine Total 750 ml # Voids 4 # Bowel Movements 1 2 Objective GENERAL: The patient is awake, alert, oriented, chronic ill-appearing, and cachectic. HEAD AND NECK: Pupils reactive to light. Anicteric. Has a strabismus with disconjugate gait. Neck was supple. No JVD. LUNGS: Good air entry. No wheezing or rales. HEART: Reveals S1, S2. Regular rhythm. No gallops. ABDOMEN: Soft. Mildly distended. No rebound tenderness. No fluid shift. EXTREMITIES: No cyanosis, clubbing, or edema. Muscle atrophy with discoloration of the bilateral lower extremity with hyperpigmentation, and rashes of bilateral lower extremity was noted. NEUROLOGIC: DIGITAL CONTENT MANAGER II through XII grossly intact. Motor is 5/5 in all extremities. Gait was not assessed due to the patient's status. Assessment/Plan Assessment/Plan ASSESSMENT: 1. Intractable nausea and vomiting. 2. Severe protein-calorie malnutrition. 3. Hyponatremia. 4. History of HIV/AIDS. 5. Kaposi sarcoma. 6. Castleman syndrome. 7. History of hepatitis B and C positive. 8. Anemia of chronic disease. 9. Thrombocytopenia. 10.C. diff colitis. 11.sinus tachycardia. PLAN: 1. In monitored unit. 2. We will follow up with Dr. Mobley from Infectious Disease consultation and Dr. Hester from Pulmonary Critical Care. 3. Monitor laboratory. 4. IV hydration. 5. Code status is Full Code. 6. Abx: Colistin, Vanco PO 7. Monitor culture. 8. Transfuse PRBC Alberto Gtz MD June 19, 2018 13:06
--- NOTE | 2018-06-19 13:20 | NUR ---
RD ASSESSMENT & RECOMMENDATIONS SEE CARE ACTIVITY FOR COMPLETE ASSESSMENT DAILY ESTIMATED NEEDS: Needs based on CA, sepsis, HIV/57kg 30-40 kcals/kg 6038-5403 total kcals 1-2 g protein/kg 57-114 g total protein 25-30 mL/kg 7811-2042 total fluid mLs NUTRITION DIAGNOSIS: * Increased kcal/prot intake needs R/T catabolic dx, underweight status, possible recent wt loss as evidenced by dx of Kaposi's sarcoma, h/o HIV, low BMI per guidelines w/ possible significant wt loss of 10lbs/7.4% in 1 month. CURRENT DIET:REGULAR PO DIET RECOMMENDATIONS: REGULAR diet as tolerated ADDITIONAL RECOMMENDATIONS: * Calibrated bedscale wt or standing wt for accurate CBW -underweight, possible recent wt loss * Monitor PO intake and tolerance- c/o N/V/D upon adm * Monitor lytes daily, replete as needed * Ensure Enlive once daily for now -> observed 5 unopened/barely touched Ensure bottles @ bedside.
--- NOTE | 2018-06-19 14:01 | NUR ---
Social Work This Sw received a consult to provide an end of life discussion. This SW met with patient who remains alert/oriented x4, stating he is wheelchair bounds, while his mother, Debbie Hewitt: [phone] (lives with mother) who assists, as needed with ADLs. Patient goes to the HIV clinic on [facility] (with Dr. Lorenzo) and taking [facility] for transport. This addressed code status and possible Hospice with patient. Patient stating "why wouldn't I want to fight this?" Patient declined Hospice, wanting to remain full code, full treatment at this time.
--- NOTE | 2018-06-19 14:41 | General Progress Note ---
Assessment/Plan Status: unchanged Assessment/Plan: Assessment and Recs # Pancytopenia, worsening, with severe diffuse lymphadenopathy worsened since 2018, in the setting Castlemans's disease/KS - outpatient chemo has been received as recently 09/2017 or so. Hx of HIV, CD4 count very low. He has a very poor memory, says was treated at [facility] Chemo ending 07/17/17. Last PET 08/12 - show stable/not worsening lymphadenopathy. Has very extensive disease on ct scan lympahdenopathy noted throughout, final results of axilla lymphadenopathy biopsy on 05/25/18, and FINAL results from prior admission are nondiagnostic --> I talked with him regarding getting potentially another biopsy (bulky lymph node v bone marrow biopsy) he has thus far refused -- HE HAS BEEN NONCOMPLIANT --> IL-6 was 54 in the past indicating active disease, needs close followup with heme outpatient, would again recommend first a biopsy and further recommendations after procedure --> HHV-8 lab request ordered --> inflammatory makers are elevated which can be c/w flare but are fairly non- specific --> imaging is ordered as well --> outpatient f/u as well for futher therapy prn --> treat underlying HIV as per ID service ==> plt trend 39-->34-->25-->26k # Anemia of chronic disease -- workup has been reviewed --> esr elevated, as is crp --> transfuse if hgb <7 => hgb trend 7.5-->7.4-->7.8 # Anemia of folic acid deficiency --> start patient on folic acid 1mg po daily, continue given low levels # DVT hx that was diagnosed at outpatient hospital --> inpatient venous duplex is negative for thromboembolism, therefore DOES not require anticoagulants --> have discussed this with patients and patient's mother # Sepsis - PNA, [place], other infection, TB? --> on HIV meds, abx as needed # HIV - On Tivicay and Truvada and Bactrim, CD4 count 64 --> VL pending, CD4 count ordered <100 --> IL-6 is 51 # REENA cr 1.2-->1.1 The timing of this note does not necessarily reflect the time of the patient was seen. Greatly appreciate consultation. Subjective Constitutional: Denies: no symptoms, chills, diaphoresis, fever, malaise, weakness, other HEENT: Denies: no symptoms, eye pain, blurred vision, tearing, double vision, ear pain, ear discharge, nose pain, nose congestion, throat pain, throat swelling, mouth pain, mouth swelling, other Respiratory: Denies: no symptoms, cough, orthopnea, shortness of breath, SOB with excertion, SOB at rest, sputum, stridor, wheezing, other Gastrointestinal/Abdominal: Denies: no symptoms, abdomen distended, abdominal pain, black stools, tarry stools, blood in stool, constipated, diarrhea, difficulty swallowing, nausea, poor appetite, poor fluid intake, rectal bleeding , vomiting, other Neurologic/Psychiatric: Denies: no symptoms, anxiety, depressed, emotional problems, headache, numbness, paresthesia, pre-existing deficit, seizure, tingling, tremors, weakness, other Endocrine: Denies: no symptoms, excessive sweating, flushing, intolerance to cold, intolerance to heat, increased hunger, increased thirst, increased urine, unexplained weight gain, unexplained weight loss, other Hematologic/Lymphatic: Denies: no symptoms, anemia, easy bleeding, easy bruising, other Allergies: Coded Allergies: No Known Allergies (Unverified , 10/21/17) Subjective 06/15: to get 2 units pf prbc today, seen by pulm, he still doesn't want a bone marrow biopsy 06/16: feeling better, still doesn't want to do a biopsy, says wants to watch and wait 06/17: remains febrile, doesn't want to do frequent lab draws, further labs pending 06/18: labs reviewed, are better, epo has been added 06/19: reviewed labs, requiring blood transfusion, plts remains low Objective Last 24 Hour Vital Signs Date Time Temp Pulse Resp B/P (MAP) Pulse Ox O2 Delivery O2 Flow Rate FiO2 06/19/18 11:56 99.0 06/19/18 11:48 100.4 129 20 103/45 (64) 99 06/19/18 09:40 Room Air 06/19/18 09:10 96.9 06/19/18 08:39 121 100/59 06/19/18 08:37 96.9 121 20 100/59 (73) 100 06/19/18 08:00 115 06/19/18 04:00 108 06/19/18 04:00 96.6 112 19 99/55 (70) 100 06/19/18 00:00 108 06/19/18 00:00 97.9 116 18 99/65 (76) 97 06/18/18 21:00 Room Air 06/18/18 20:00 97.9 114 18 98/53 (68) 100 06/18/18 20:00 113 06/18/18 16:50 101.8 127 22 99/63 (75) 100 06/18/18 15:52 133 Intake and Output 06/18/18 06/19/18 19:00 07:00 Output Total 750 ml Balance -750 ml Output Urine Total 750 ml # Voids 4 # Bowel Movements 1 2 Laboratory Tests 06/19/18 06:05: White Blood Count 4.9, Red Blood Count 2.42L, Hemoglobin 6.2*L, Hematocrit 19.2L , Mean Corpuscular Volume 79L, Mean Corpuscular Hemoglobin 25.6L, Mean Corpuscular Hemoglobin Concent 32.3, Red Cell Distribution Width 20.1H, Platelet Count 26L, Mean Platelet Volume 7.2, Neutrophils (%) (Auto) , Lymphocytes (%) (Auto) , Monocytes (%) (Auto) , Eosinophils (%) (Auto) , Basophils (%) (Auto) , Differential Total Cells Counted 100, Neutrophils % ( Manual) 63, Lymphocytes % (Manual) 31, Monocytes % (Manual) 5, Eosinophils % ( Manual) 1, Basophils % (Manual) 0, Band Neutrophils 0, Platelet Estimate DecreasedL, Platelet Morphology Normal, Anisocytosis 2+, Microcytosis 1+, Sodium Level 131L, Potassium Level 4.9, Chloride Level 102, Carbon Dioxide Level 25, Anion Gap 4L, Blood Urea Nitrogen 36H, Creatinine 1.4H, Estimat Glomerular Filtration Rate > 60, Glucose Level 93, Uric Acid 6.5, Calcium Level 6.5L, Phosphorus Level 4.1, Magnesium Level 1.9, Total Bilirubin 0.4, Aspartate Amino Transf (AST/SGOT) 33, Alanine Aminotransferase (ALT/SGPT) 8L, Alkaline Phosphatase 91, Total Protein 5.1L, Albumin < 0.6L, Globulin Height (Feet): 6 Height (Inches): 0.00 Weight (Pounds): 147 Objective Physical Exam: Vitals: reviewed General Appearance: NAD HEENT: normocephalic, atraumatic Neck: non-tender, normal alignment Respiratory/Chest: normal breath sounds bilaterally Cardiovascular/Chest: normal peripheral pulses, normal rate Abdomen: normal bowel sounds, soft, not Extremities: normal range of motion Jean Bingham MD June 19, 2018 14:41
--- NOTE | 2018-06-19 16:10 | Nephrology Progress Note ---
Assessment/Plan Problem List: (1) Hyponatremia (2) Kaposi disease (3) HIV disease (4) Anemia (5) Hepatitis B (6) Hepatitis C (7) C. difficile colitis (8) Malnutrition Assessment HypoNatremia , etiology ? will comment after urine studies and blood test results available Intractable nausea and vomiting. Severe protein-calorie malnutrition. History of HIV/AIDS. Kaposi sarcoma. Sepsis Anemia, PanCytopenia C diff Hep B and Hep C Plan transfuse- Per ID- add coreg add epo trial of 3% saline and Lasix as needed continue per consultants Per orders Subjective ROS Limited/Unobtainable: No Constitutional: Reports: malaise, weakness Objective Objective Last 24 Hour Vital Signs Date Time Temp Pulse Resp B/P (MAP) Pulse Ox O2 Delivery O2 Flow Rate FiO2 06/19/18 13:37 99.0 06/19/18 12:00 98.2 103 20 99/52 (68) 99 06/19/18 11:56 99.0 06/19/18 11:48 100.4 129 20 103/45 (64) 99 06/19/18 09:40 Room Air 06/19/18 08:39 121 100/59 06/19/18 08:37 96.9 121 20 100/59 (73) 100 06/19/18 08:00 115 06/19/18 04:00 108 06/19/18 04:00 96.6 112 19 99/55 (70) 100 06/19/18 00:00 108 06/19/18 00:00 97.9 116 18 99/65 (76) 97 06/18/18 21:00 Room Air 06/18/18 20:00 97.9 114 18 98/53 (68) 100 06/18/18 20:00 113 06/18/18 16:50 101.8 127 22 99/63 (75) 100 Intake and Output 06/18/18 06/19/18 19:00 07:00 Output Total 750 ml Balance -750 ml Output Urine Total 750 ml # Voids 4 # Bowel Movements 1 2 Laboratory Tests 06/19/18 06:05: White Blood Count 4.9, Red Blood Count 2.42L, Hemoglobin 6.2*L, Hematocrit 19.2L , Mean Corpuscular Volume 79L, Mean Corpuscular Hemoglobin 25.6L, Mean Corpuscular Hemoglobin Concent 32.3, Red Cell Distribution Width 20.1H, Platelet Count 26L, Mean Platelet Volume 7.2, Neutrophils (%) (Auto) , Lymphocytes (%) (Auto) , Monocytes (%) (Auto) , Eosinophils (%) (Auto) , Basophils (%) (Auto) , Differential Total Cells Counted 100, Neutrophils % ( Manual) 63, Lymphocytes % (Manual) 31, Monocytes % (Manual) 5, Eosinophils % ( Manual) 1, Basophils % (Manual) 0, Band Neutrophils 0, Platelet Estimate DecreasedL, Platelet Morphology Normal, Anisocytosis 2+, Microcytosis 1+, Sodium Level 131L, Potassium Level 4.9, Chloride Level 102, Carbon Dioxide Level 25, Anion Gap 4L, Blood Urea Nitrogen 36H, Creatinine 1.4H, Estimat Glomerular Filtration Rate > 60, Glucose Level 93, Uric Acid 6.5, Calcium Level 6.5L, Phosphorus Level 4.1, Magnesium Level 1.9, Total Bilirubin 0.4, Aspartate Amino Transf (AST/SGOT) 33, Alanine Aminotransferase (ALT/SGPT) 8L, Alkaline Phosphatase 91, Total Protein 5.1L, Albumin < 0.6L, Globulin Height (Feet): 6 Height (Inches): 0.00 Weight (Pounds): 147 General Appearance: no apparent distress Respiratory/Chest: decreased breath sounds Abdomen: distended Objective no change Adam Aguiar MD June 19, 2018 16:10
--- NOTE | 2018-06-19 16:31 | NUR ---
NURSE NOTES: Spoke with lab about PT order. States that patient will be discharge today and to disregard order.
--- NOTE | 2018-06-19 19:02 | Infectious Diseases Prog Note ---
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 Recommend repeat/follow- up -Abd US: Cholelithiasis. Minimal pericholecystic fluid. Correlate clinically for cholecystitis. Thrombocytopenia Anemia CKD Diffuse lymphadenopathy- Ddx: CMV disease (ie colitis), Diffuse MAC, recurrente Castleman, HIV related, lymphoma -05/18 s/p L axillary lymph node biopsy -path fragments of benign lymph node with pronounced polytypic plasmacytosis; focally + HHV8. 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 -05/16/18 CT chest: Mediastinal, axillary, and supraclavicular lymphadenopathy , enlarged compared to the prior CT of the chest. Largest left axillary node measures 3.4 x 2.4 cm. Largest supraclavicular node on the left measures 3.8 x 2.8 cm. Largest mediastinal nodes include a 2.2 x 1.6 cm pretracheal node and a 2.3 x 1.6 cm subcarinal node. Small layering right pleural effusion with fluid in the minor fissure. Kasie-bronchovascular groundglass haziness and nodularity in the right lower lobe. Scattered paraseptal emphysematous changes, predominantly in the upper lung zones. -05/16/18 CT abd/p: Diffuse edema and haziness throughout the mesenteric root. Not significantly changed compared to the visualized portions of the mesenteric root in the prior CT of the chest dated 10/22/17. Mesenteric, retroperitoneal, and inguinal lymphadenopathy. Largest retroperitoneal node measures 3.1 x 2.5 x 2.0 cm to left of the IVC (series 8 image 56, series 10 image 23). Largest left inguinal left node measures 2.9 x 2.5 cm (series 8 image 90). Mild fluid distention and air-fluid levels throughout the colon, which may suggest mild colitis and/or diarrheal disease. No evidence of bowel obstruction. Cholelithiasis without gallbladder wall thickening or ductal dilatation. Scattered subcentimeter hypodensities throughout the spleen, possibly tiny simple cysts. Subcentimeter simple-appearing left renal cortical cysts. Mild urinary bladder wall thickening, most likely related to underdistention. -CT head: . Opacification of the right maxillary sinus, right frontal sinus , and mucosal thickening throughout the ethmoid air cells and left maxillary sinus, suggestive of sinusitis. Partial opacification of the inferior posterior aspect of the left mastoid air cells, suggesting small left mastoid effusion. 04/2018- Cr Ag , T spot, CMV PCR, CMV IgM neg - 10/22/17- CT show reticular opacity and significant lymphadenopathy 10/23/17 - CT abd/pel Lymphadenopathy, Enlarged Pancrease mild B/L hydronephrosis -Blasto, Histo, CrAg neg 11/21/16 - Quantiferon negative (Out Side lab) Recent Colitis -04/2018 Cdiff neg -stool cx normal phi - O and P neg x3 HIV/AIDS- questionable compliance to ARV (dx 1999)- on Truvada and Dolutegravir 05/2018HIV VL 260, -04/2018 Cd4 64 (9.1%); VL 100 ?decrease due to non compliance, however low viremia (will expect higher viremia if non compliance) -10/2017 HIV VL ND, CD4 87 (12.4%) -09/01/17 - CD4 192 and VL - ND (Out Side labs) -no hx of resistance ; previously on Truvada, Reyataz and Norvir -Has been above 200 in the past. Came down with Chemo hx pancreatitis 10/2017 hx of Kaposi's sarcoma/Castleman's disease s/p chemotherapy - S/P Chemo ending 07/17/17 Last PET 08/12/17 - show stable/not worsening lymphadenopathy Hep C+ -VL ND hx of Chronic Hep B, VL <15 09/01/17 RPR, GC/CL : negative hx of DVT Plan: -Continue PO Vancomycin # 5/10-14 ( pt refusing ) ,and Tygacil d# 4 empirically for now ( probable Hosp acquired infection in the setting of C Diff) Bactrim for PCP PPC Cont ARVs - 06/13 SP Zosyn #2 -06/12 SP Flagyl x1 - 05/21/18 SP Ceftriaxone #5 and Flagyl #7 for colitis -05/15/18 SP empiric IV Vancomycin #4 and switch empiric Zosyn #3 to Ceftriaxone and Flagyl -05/16/18 SP Tamiflu #4 - 05/12 SP Cefepime x1 -f/u cx -Monitor CBC/CMP, temperatures -Heme onc c/s -Will need excisional biopsy and bone marrow biopsy- high suspicion for recurrence of Castleman's disease -f/u and genotype, Hep B PCR, -f/u CXR 2 v am -f/u AFB bcx, sp cx, PCP DFA - Fungal blood Cx - Stool Cryptosporidium, Isospora, Cyclospora Subjective Allergies: Coded Allergies: No Known Allergies (Unverified , 10/21/17) Subjective diarrhea improved low grade fever Objective Vital Signs Last 24 Hour Vital Signs Date Time Temp Pulse Resp B/P (MAP) Pulse Ox O2 Delivery O2 Flow Rate FiO2 06/19/18 16:00 104 06/19/18 16:00 98.2 109 20 94/56 (69) 97 06/19/18 13:37 99.0 06/19/18 12:00 98.2 103 20 99/52 (68) 99 06/19/18 12:00 126 06/19/18 11:56 99.0 06/19/18 11:48 100.4 129 20 103/45 (64) 99 06/19/18 09:40 Room Air 06/19/18 08:39 121 100/59 06/19/18 08:37 96.9 121 20 100/59 (73) 100 06/19/18 08:00 115 06/19/18 04:00 108 06/19/18 04:00 96.6 112 19 99/55 (70) 100 06/19/18 00:00 108 06/19/18 00:00 97.9 116 18 99/65 (76) 97 06/18/18 21:00 Room Air 06/18/18 20:00 97.9 114 18 98/53 (68) 100 06/18/18 20:00 113 Height (Feet): 6 Height (Inches): 0.00 Weight (Pounds): 147 Laboratory Tests Test 06/19/18 06:05 White Blood Count 4.9 K/UL (4.8-10.8) Red Blood Count 2.42 M/UL (4.70-6.10) L Hemoglobin 6.2 G/DL (14.2-18.0) *L Hematocrit 19.2 % (42.0-52.0) L Mean Corpuscular Volume 79 FL (80-99) L Mean Corpuscular Hemoglobin 25.6 PG (27.0-31.0) L Mean Corpuscular Hemoglobin Concent 32.3 G/DL (32.0-36.0) Red Cell Distribution Width 20.1 % (11.6-14.8) H Platelet Count 26 K/UL (150-450) L Mean Platelet Volume 7.2 FL (6.5-10.1) Neutrophils (%) (Auto) % (45.0-75.0) Lymphocytes (%) (Auto) % (20.0-45.0) Monocytes (%) (Auto) % (1.0-10.0) Eosinophils (%) (Auto) % (0.0-3.0) Basophils (%) (Auto) % (0.0-2.0) Differential Total Cells Counted 100 Neutrophils % (Manual) 63 % (45-75) Lymphocytes % (Manual) 31 % (20-45) Monocytes % (Manual) 5 % (1-10) Eosinophils % (Manual) 1 % (0-3) Basophils % (Manual) 0 % (0-2) Band Neutrophils 0 % (0-8) Platelet Estimate Decreased L Platelet Morphology Normal Anisocytosis 2+ Microcytosis 1+ Sodium Level 131 MMOL/L (136-145) L Potassium Level 4.9 MMOL/L (3.5-5.1) Chloride Level 102 MMOL/L (98-107) Carbon Dioxide Level 25 MMOL/L (21-32) Anion Gap 4 mmol/L (5-15) L Blood Urea Nitrogen 36 mg/dL (7-18) H Creatinine 1.4 MG/DL (0.55-1.30) H Estimat Glomerular Filtration Rate > 60 mL/min (>60) Glucose Level 93 MG/DL (74-106) Uric Acid 6.5 MG/DL (2.6-7.2) Calcium Level 6.5 MG/DL (8.5-10.1) L Phosphorus Level 4.1 MG/DL (2.5-4.9) Magnesium Level 1.9 MG/DL (1.8-2.4) Total Bilirubin 0.4 MG/DL (0.2-1.0) Aspartate Amino Transf (AST/SGOT) 33 U/L (15-37) Alanine Aminotransferase (ALT/SGPT) 8 U/L (12-78) L Alkaline Phosphatase 91 U/L (46-116) Total Protein 5.1 G/DL (6.4-8.2) L Albumin < 0.6 G/DL (3.4-5.0) L Globulin g/dL Current Medications Medications (Trade) Dose Ordered Sig/Yessica Route PRN Reason Start Time Stop Time Status Last Admin Dose Admin Acetaminophen (Tylenol) 650 mg Q4H PRN ORAL fever 06/12/18 09:30 07/12/18 09:29 06/19/18 11:26 Carvedilol (Coreg) 3.125 mg EVERY 12 HOURS ORAL 06/18/18 21:00 07/18/18 20:59 06/19/18 08:39 Dextrose (Dextrose 50%) 25 ml Q30M PRN IV Hypoglycemia 06/12/18 09:30 07/12/18 09:29 Dextrose (Dextrose 50%) 50 ml Q30M PRN IV Hypoglycemia 06/12/18 09:30 07/12/18 09:29 Diphenhydramine HCl (Benadryl) 25 mg Q6H PRN ORAL Itching/Pruritis 06/12/18 09:30 07/12/18 09:29 Dronabinol (Marinol) 2.5 mg TID ORAL 06/15/18 13:00 07/13/18 17:59 06/19/18 17:37 Epoetin Jeferson (Epoetin Jeferson-EPBX(NON ESRD)) 10,000 unit FRI-FRI-FRI SUBQ 06/19/18 21:00 07/19/18 20:59 Folic Acid (Folate) 5 mg DAILY ORAL 06/15/18 11:15 07/15/18 11:14 06/19/18 08:39 Lactobacillus Acidophilus (Culturelle) 1 tab THREE TIMES A DAY ORAL 06/14/18 18:00 07/14/18 17:59 06/19/18 17:37 Lorazepam (Ativan 2mg/ml 1ml) 1 mg Q4H PRN IV For Anxiety 06/18/18 11:00 06/25/18 10:59 Mirtazapine (Remeron) 15 mg BEDTIME ORAL 06/12/18 21:00 07/12/18 20:59 06/18/18 21:52 Morphine Sulfate (Morphine Sulfate) 4 mg Q4H PRN IVP Severe Pain (Pain Scale 7-10) 06/18/18 11:00 06/25/18 10:59 06/19/18 13:07 Nitroglycerin (Ntg) 0.4 mg Q5M X 3 DOSES PRN SL Prn Chest Pain 06/12/18 09:30 07/12/18 09:29 Ondansetron HCl (Zofran) 4 mg Q6H PRN IVP Nausea & Vomiting 06/12/18 09:30 07/12/18 09:29 06/15/18 09:32 Pantoprazole (Protonix) 40 mg EVERY 12 HOURS ORAL 06/14/18 21:00 07/14/18 20:59 06/19/18 08:38 Patient Own Medication (Patient's Own Med) 1 ea DAILY ORAL 06/13/18 15:30 07/13/18 15:29 06/19/18 08:37 Patient Own Medication (Patient's Own Med) 1 ea DAILY ORAL 06/13/18 15:30 07/13/18 15:29 06/19/18 08:37 Promethazine HCl (Phenergan) 25 mg Q6H PRN IM REFRACTORY N/V 06/12/18 09:30 07/12/18 09:29 Temazepam (Restoril) 15 mg HSPRN PRN ORAL Insomnia 06/18/18 21:00 06/25/18 20:59 Tigecycline 50 mg/ Sodium Chloride 110 ml @ 220 mls/hr EVERY 12 HOURS IVPB 06/17/18 09:00 06/24/18 08:59 06/19/18 08:44 Trimethoprim/ Sulfamethoxazole (Bactrim Single Strength) 1 tab DAILY ORAL 06/17/18 09:00 06/24/18 08:59 06/19/18 08:39 Vancomycin HCl (Firvanq) 125 mg FOUR TIMES A DAY ORAL 06/13/18 09:00 06/20/18 08:59 06/19/18 17:37 Jez Mendoza MD June 19, 2018 19:02
--- NOTE | 2018-06-19 19:15 | NUR ---
HAND-OFF: Report given to Amanda JOSHUA.
--- NOTE | 2018-06-19 19:50 | NUR ---
NURSE NOTES: Received report from TRES Cole. Pt awake, alert, and ready to be DC'd. Called and left a message with Dr. Gtz regarding pts condition and he said to DC in the morning after CBC. IV site and name band were removed but replaced. Bed in lowest position. Call light within reach. Will continue to monitor.
[2018-06-19] MEDS ORDERED: Epoetin Alfa-EPBX (NON ESRD)10,000 unit/ml vial SUBQ SCH (21:00)
[2018-06-20] VITALS: BP 118/66
[2018-06-20] MEDS: Tigecycline 50 MG in NS 110 ML IVPB SCH ×3 (00:08→21:41)
[2018-06-20] MEDS: Morphine Sulfate 4mg/ml Inj (IV USE ONLY) IVP PRN ×3 (02:25→20:33)
[2018-06-20 04:00] VITALS: BP 107/67
--- NOTE | 2018-06-20 07:30 | NUR ---
NURSE NOTES: Received bedside report from Amanda JOSHUA. Pt. in bed, asleep but arousable. No sign of distress. No grimacing noted. IV line at left wrist #[id number]. in placed SL. D/c planning today per previous shift awaiting of labs result. Bed in low position, locked. Call light within reach. Will cont. to monitor.
[2018-06-20 07:48] LABS: HEMATOCRIT 21.2 % (42.0-52.0); MEAN CORPUSCULAR VOLUME 80 FL (80-99); PLATELET COUNT 21 K/UL (150-450); RED BLOOD COUNT 2.64 M/UL (4.70-6.10); RED CELL DISTRIBUTION WIDTH 18.8 % (11.6-14.8); WHITE BLOOD COUNT 5.3 K/UL (4.8-10.8)
[2018-06-20 08:00] VITALS: BP 99/59
[2018-06-20 08:02] LABS: INR 1.5 (0.9-1.1)
[2018-06-20 08:12] LABS: ALANINE AMINOTRANSFERASE 8 U/L (12-78); ALKALINE PHOSPHATASE 120 U/L (46-116); ANION GAP 3 mmol/L (5-15); ASPARTATE AMINO TRANSFERASE 28 U/L (15-37); BILIRUBIN,TOTAL 0.5 MG/DL (0.2-1.0); BLOOD UREA NITROGEN 37 mg/dL (7-18); CALCIUM 6.4 MG/DL (8.5-10.1); CARBON DIOXIDE 26 MMOL/L (21-32); CHLORIDE 104 MMOL/L (98-107); CREATININE 1.4 MG/DL (0.55-1.30); POTASSIUM 5.1 MMOL/L (3.5-5.1); SODIUM 133 MMOL/L (136-145)
--- NOTE | 2018-06-20 08:20 | Pulmonology Progress Note ---
Assessment/Plan Assessment/Plan ASSESSMENT sepsis HIV disease Hx of Kaposi sarcoma/Castleman disease, status post chemotherapy Acute tubular necrosis on chronic kidney disease Cyclic vomiting syndrome Severe protein calorie malnutrition Anemia of chronic disease Pancytopenia C. difficile colitis Anemia of folic acid deficiency Chronic hep B Hepatitis C Hyponatremia Diffuse lymphadenopathy PLAN OF CARE tele abx as per ID recs stool positive for C. difficile , p.o. Vanco and Tygacil empirically, probably hospital-acquired infection in the setting of C. 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 oncologist followed continue with HAART therapy so far pt declined biopsy despite explanation by oncologist urinalysis negative chest x-ray with questionable infiltrate right perihilar region follow-up with chest x-ray O2 HHN prn patient with evidence of diffuse lymphadenopathy , status post isolated lymph node; pathology c/w Castleman disease s/p chemo 2017 , lastPET in 2017- not worsening lymphadenopathy Nephro follows hyponatremia work-up started on trial of 3% saline and Lasix protein supplements GI prophylaxis GI follows continue Marinol antiemetic as needed avoid nephrotoxic's monitor H&H with goal to keep hemoglobin above 7 , transfuse additional unit PRBC today anemia work-up c/w anemia of chronic disease started on folate due to deficiency cardio follows patient with ST due to sepsis ,anemia and pain , patient was ruled out for acute CT by serial negative troponin and no acute ischemic changes on ECG Echo with preserved ejection fraction supportive care case discussed and evaluated by supervising physician Subjective Allergies: Coded Allergies: No Known Allergies (Unverified , 10/21/17) Subjective on RA no signs of resp distress HH still low, was transfused 5/3 for Hgb 6.2, this am Hgb 7.0 Objective Last 24 Hour Vital Signs Date Time Temp Pulse Resp B/P (MAP) Pulse Ox O2 Delivery O2 Flow Rate FiO2 06/20/18 04:00 98.2 121 18 107/67 (80) 98 06/20/18 04:00 123 06/20/18 02:55 100.5 06/20/18 02:17 100.5 06/20/18 00:00 121 06/20/18 00:00 101.3 117 18 118/66 (83) 100 06/19/18 21:00 Room Air 06/19/18 20:00 96.9 111 18 92/61 (71) 100 06/19/18 16:00 104 06/19/18 16:00 98.2 109 20 94/56 (69) 97 06/19/18 12:00 98.2 103 20 99/52 (68) 99 06/19/18 12:00 126 06/19/18 11:56 99.0 06/19/18 11:48 100.4 129 20 103/45 (64) 99 06/19/18 09:40 Room Air 06/19/18 08:39 121 100/59 06/19/18 08:37 96.9 121 20 100/59 (73) 100 Intake and Output 06/19/18 06/20/18 19:00 07:00 Intake Total 1230 ml Output Total 800 ml Balance 430 ml Intake Oral 980 ml Blood Product 250 ml Output Urine Total 800 ml # Voids 2 # Bowel Movements 2 4 General Appearance: no acute distress, cachetic, other - awake, responsive HEENT: normocephalic, atraumatic, anicteric, mucous membranes moist Respiratory/Chest: decreased breath sounds Cardiovascular: normal rate - SR on tele, regular rhythm - SR on tele Abdomen: normal bowel sounds, soft, non tender, non distended Extremities: no edema, pedal pulses normal Neurologic/Psychiatric: alert, responsive Musculoskeletal: atrophy Laboratory Tests 06/20/18 06:10: White Blood Count 5.3, Red Blood Count 2.64L, Hemoglobin 7.0L, Hematocrit 21.2L , Mean Corpuscular Volume 80, Mean Corpuscular Hemoglobin 26.4L, Mean Corpuscular Hemoglobin Concent 33.0, Red Cell Distribution Width 18.8H, Platelet Count 21L, Mean Platelet Volume 8.4, Neutrophils (%) (Auto) , Lymphocytes (%) (Auto) , Monocytes (%) (Auto) , Eosinophils (%) (Auto) , Basophils (%) (Auto) , Neutrophils % (Manual) [Pending], Lymphocytes % (Manual) [Pending], Platelet Estimate [Pending], Platelet Morphology [Pending], Prothrombin Time 15.1H, Prothromb Time International Ratio 1.5H, Sodium Level [ Pending], Potassium Level [Pending], Chloride Level [Pending], Carbon Dioxide Level [Pending], Blood Urea Nitrogen [Pending], Creatinine [Pending], Estimat Glomerular Filtration Rate [Pending], Glucose Level [Pending], Osmolality [ Pending], Uric Acid [Pending], Calcium Level [Pending], Phosphorus Level [ Pending], Magnesium Level [Pending], Total Bilirubin [Pending], Aspartate Amino Transf (AST/SGOT) [Pending], Alanine Aminotransferase (ALT/SGPT) [Pending], Alkaline Phosphatase [Pending], Total Protein [Pending], Albumin [Pending], Globulin [Pending] Current Medications Medications (Trade) Dose Ordered Sig/Yessica Route PRN Reason Start Time Stop Time Status Last Admin Dose Admin Acetaminophen (Tylenol) 650 mg Q4H PRN ORAL fever 06/12/18 09:30 07/12/18 09:29 06/20/18 02:25 Carvedilol (Coreg) 3.125 mg EVERY 12 HOURS ORAL 06/18/18 21:00 07/18/18 20:59 06/19/18 08:39 Dextrose (Dextrose 50%) 25 ml Q30M PRN IV Hypoglycemia 06/12/18 09:30 07/12/18 09:29 Dextrose (Dextrose 50%) 50 ml Q30M PRN IV Hypoglycemia 06/12/18 09:30 07/12/18 09:29 Diphenhydramine HCl (Benadryl) 25 mg Q6H PRN ORAL Itching/Pruritis 06/12/18 09:30 07/12/18 09:29 Dronabinol (Marinol) 2.5 mg TID ORAL 06/15/18 13:00 07/13/18 17:59 06/19/18 17:37 Epoetin Jeferson (Epoetin Jeferson-EPBX(NON ESRD)) 10,000 unit FRI-FRI-FRI SUBQ 06/19/18 21:00 07/19/18 20:59 06/19/18 22:22 Folic Acid (Folate) 5 mg DAILY ORAL 06/15/18 11:15 07/15/18 11:14 06/19/18 08:39 Lactobacillus Acidophilus (Culturelle) 1 tab THREE TIMES A DAY ORAL 06/14/18 18:00 07/14/18 17:59 06/19/18 17:37 Lorazepam (Ativan 2mg/ml 1ml) 1 mg Q4H PRN IV For Anxiety 06/18/18 11:00 06/25/18 10:59 Mirtazapine (Remeron) 15 mg BEDTIME ORAL 06/12/18 21:00 07/12/18 20:59 06/19/18 22:22 Morphine Sulfate (Morphine Sulfate) 4 mg Q4H PRN IVP Severe Pain (Pain Scale 7-10) 06/18/18 11:00 06/25/18 10:59 06/20/18 02:25 Nitroglycerin (Ntg) 0.4 mg Q5M X 3 DOSES PRN SL Prn Chest Pain 06/12/18 09:30 07/12/18 09:29 Ondansetron HCl (Zofran) 4 mg Q6H PRN IVP Nausea & Vomiting 06/12/18 09:30 07/12/18 09:29 06/15/18 09:32 Pantoprazole (Protonix) 40 mg EVERY 12 HOURS ORAL 06/14/18 21:00 07/14/18 20:59 06/19/18 22:22 Patient Own Medication (Patient's Own Med) 1 ea DAILY ORAL 06/13/18 15:30 07/13/18 15:29 06/19/18 08:37 Patient Own Medication (Patient's Own Med) 1 ea DAILY ORAL 06/13/18 15:30 07/13/18 15:29 06/19/18 08:37 Promethazine HCl (Phenergan) 25 mg Q6H PRN IM REFRACTORY N/V 06/12/18 09:30 07/12/18 09:29 Temazepam (Restoril) 15 mg HSPRN PRN ORAL Insomnia 06/18/18 21:00 06/25/18 20:59 Tigecycline 50 mg/ Sodium Chloride 110 ml @ 220 mls/hr EVERY 12 HOURS IVPB 06/17/18 09:00 06/24/18 08:59 06/20/18 00:08 Trimethoprim/ Sulfamethoxazole (Bactrim Single Strength) 1 tab DAILY ORAL 06/17/18 09:00 06/24/18 08:59 06/19/18 08:39 Vancomycin HCl (Firvanq) 125 mg FOUR TIMES A DAY ORAL 06/13/18 09:00 06/20/18 08:59 06/19/18 22:22 Gerri Almeida NP June 20, 2018 08:20
[2018-06-20 08:24] LABS: PHOSPHORUS 4.7 MG/DL (2.5-4.9)
[2018-06-20 08:45] LABS: ALBUMIN 0.5 G/DL (3.4-5.0); ALBUMIN/GLOBULIN RATIO 0.1 (1.0-2.7)
--- NOTE | 2018-06-20 09:06 | General Progress Note ---
Assessment/Plan Problem List: (1) Anemia ICD Codes: D64.9 - Anemia, unspecified SNOMED: 927428700 (2) C. 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 difficile positive OB stool positive on marinol with good response push PO vanco H2B fu ID fu H&H, transfuse if hgb below 7 supportive care Subjective ROS Limited/Unobtainable: Yes Allergies: Coded Allergies: No Known Allergies (Unverified , 10/21/17) Objective Last 24 Hour Vital Signs Date Time Temp Pulse Resp B/P (MAP) Pulse Ox O2 Delivery O2 Flow Rate FiO2 06/20/18 08:00 98.8 108 18 99/59 (72) 99 06/20/18 04:00 98.2 121 18 107/67 (80) 98 06/20/18 04:00 123 06/20/18 02:55 100.5 06/20/18 02:17 100.5 06/20/18 00:00 121 06/20/18 00:00 101.3 117 18 118/66 (83) 100 06/19/18 21:00 Room Air 06/19/18 20:00 96.9 111 18 92/61 (71) 100 06/19/18 16:00 104 06/19/18 16:00 98.2 109 20 94/56 (69) 97 06/19/18 12:00 98.2 103 20 99/52 (68) 99 06/19/18 12:00 126 06/19/18 11:56 99.0 06/19/18 11:48 100.4 129 20 103/45 (64) 99 06/19/18 09:40 Room Air Intake and Output 06/19/18 06/20/18 19:00 07:00 Intake Total 1230 ml Output Total 800 ml Balance 430 ml Intake Oral 980 ml Blood Product 250 ml Output Urine Total 800 ml # Voids 2 # Bowel Movements 2 4 Laboratory Tests 06/20/18 06:10: White Blood Count 5.3, Red Blood Count 2.64L, Hemoglobin 7.0L, Hematocrit 21.2L , Mean Corpuscular Volume 80, Mean Corpuscular Hemoglobin 26.4L, Mean Corpuscular Hemoglobin Concent 33.0, Red Cell Distribution Width 18.8H, Platelet Count 21L, Mean Platelet Volume 8.4, Neutrophils (%) (Auto) , Lymphocytes (%) (Auto) , Monocytes (%) (Auto) , Eosinophils (%) (Auto) , Basophils (%) (Auto) , Differential Total Cells Counted 100, Neutrophils % ( Manual) 78H, Lymphocytes % (Manual) 16L, Monocytes % (Manual) 6, Eosinophils % ( Manual) 0, Basophils % (Manual) 0, Band Neutrophils 0, Platelet Estimate DecreasedL, Platelet Morphology Normal, Anisocytosis 1+, Prothrombin Time 15.1H , Prothromb Time International Ratio 1.5H, Sodium Level 133L, Potassium Level 5.1, Chloride Level 104, Carbon Dioxide Level 26, Anion Gap 3L, Blood Urea Nitrogen 37H, Creatinine 1.4H, Estimat Glomerular Filtration Rate > 60, Glucose Level 90, Osmolality [Pending], Uric Acid 6.4, Calcium Level 6.4L, Phosphorus Level 4.7, Magnesium Level 2.0, Total Bilirubin 0.5, Aspartate Amino Transf (AST /SGOT) 28, Alanine Aminotransferase (ALT/SGPT) 8L, Alkaline Phosphatase 120H, Total Protein 5.2L, Albumin 0.5L, Globulin 4.7, Albumin/Globulin Ratio 0.1L Height (Feet): 6 Height (Inches): 0.00 Weight (Pounds): 147 General Appearance: alert EENT: normal ENT inspection Neck: supple Cardiovascular: normal rate Respiratory/Chest: decreased breath sounds Abdomen: normal bowel sounds, non tender, soft Extremities: non-tender Michael Grande MD June 20, 2018 09:06
[2018-06-20] MEDS: Dronabinol 2.5mg Cap ORAL SCH ×3 (09:51→18:06)
[2018-06-20] MEDS: Vancomycin oral 125mg/2.5ml ORAL SCH ×4 (09:52→21:46)
[2018-06-20] MEDS: Lactobacillus-GG tablet ORAL SCH ×3 (09:52→18:06)
[2018-06-20] MEDS: Bactrim SS Tab ORAL SCH (09:52)
[2018-06-20 12:00] VITALS: BP 103/68
--- NOTE | 2018-06-20 13:36 | Internal Med Progress Note ---
Subjective Date of Service: June 20, 2018 Physician Name Adam Padron Attending Physician Alberto Gtz MD Current Medications Medications (Trade) Dose Ordered Sig/Yessica Route PRN Reason Start Time Stop Time Status Last Admin Dose Admin Acetaminophen (Tylenol) 650 mg Q4H PRN ORAL fever 06/12/18 09:30 07/12/18 09:29 06/20/18 02:25 Carvedilol (Coreg) 3.125 mg EVERY 12 HOURS ORAL 06/18/18 21:00 07/18/18 20:59 06/19/18 08:39 Dextrose (Dextrose 50%) 25 ml Q30M PRN IV Hypoglycemia 06/12/18 09:30 07/12/18 09:29 Dextrose (Dextrose 50%) 50 ml Q30M PRN IV Hypoglycemia 06/12/18 09:30 07/12/18 09:29 Diphenhydramine HCl (Benadryl) 25 mg Q6H PRN ORAL Itching/Pruritis 06/12/18 09:30 07/12/18 09:29 06/20/18 11:30 Dronabinol (Marinol) 2.5 mg TID ORAL 06/15/18 13:00 07/13/18 17:59 06/20/18 09:51 Epoetin Jeferson (Epoetin Jeferson-EPBX(NON ESRD)) 10,000 unit FRI-FRI-FRI SUBQ 06/19/18 21:00 07/19/18 20:59 06/19/18 22:22 Folic Acid (Folate) 5 mg DAILY ORAL 06/15/18 11:15 07/15/18 11:14 06/20/18 09:52 Lactobacillus Acidophilus (Culturelle) 1 tab THREE TIMES A DAY ORAL 06/14/18 18:00 07/14/18 17:59 06/20/18 09:52 Lorazepam (Ativan 2mg/ml 1ml) 1 mg Q4H PRN IV For Anxiety 06/18/18 11:00 06/25/18 10:59 Mirtazapine (Remeron) 15 mg BEDTIME ORAL 06/12/18 21:00 07/12/18 20:59 06/19/18 22:22 Morphine Sulfate (Morphine Sulfate) 4 mg Q4H PRN IVP Severe Pain (Pain Scale 7-10) 06/18/18 11:00 06/25/18 10:59 06/20/18 11:30 Nitroglycerin (Ntg) 0.4 mg Q5M X 3 DOSES PRN SL Prn Chest Pain 06/12/18 09:30 07/12/18 09:29 Ondansetron HCl (Zofran) 4 mg Q6H PRN IVP Nausea & Vomiting 06/12/18 09:30 07/12/18 09:29 06/15/18 09:32 Pantoprazole (Protonix) 40 mg EVERY 12 HOURS ORAL 06/14/18 21:00 07/14/18 20:59 06/20/18 09:52 Patient Own Medication (Patient's Own Med) 1 ea DAILY ORAL 06/13/18 15:30 07/13/18 15:29 06/20/18 09:51 Patient Own Medication (Patient's Own Med) 1 ea DAILY ORAL 06/13/18 15:30 07/13/18 15:29 06/20/18 09:51 Promethazine HCl (Phenergan) 25 mg Q6H PRN IM REFRACTORY N/V 06/12/18 09:30 07/12/18 09:29 Temazepam (Restoril) 15 mg HSPRN PRN ORAL Insomnia 06/18/18 21:00 06/25/18 20:59 Tigecycline 50 mg/ Sodium Chloride 110 ml @ 220 mls/hr EVERY 12 HOURS IVPB 06/17/18 09:00 06/24/18 08:59 06/20/18 09:57 Trimethoprim/ Sulfamethoxazole (Bactrim Single Strength) 1 tab DAILY ORAL 06/17/18 09:00 06/24/18 08:59 06/20/18 09:52 Vancomycin HCl (Firvanq) 125 mg FOUR TIMES A DAY ORAL 06/13/18 09:00 06/25/18 08:59 06/20/18 09:52 Allergies: Coded Allergies: No Known Allergies (Unverified , 10/21/17) ROS Limited/Unobtainable: No Constitutional: Reports: no symptoms HEENT: Reports: no symptoms Cardiovascular: Reports: no symptoms Respiratory: Reports: no symptoms Gastrointestinal/Abdominal: Reports: no symptoms Genitourinary: Reports: no symptoms Neurologic/Psychiatric: Reports: no symptoms Subjective 37 YO M with history of HIV, kaposi's Sarcoma and Castleman Dis admitted with nausea, vomiting and diarrhea. Now C. Diff. Cover for Int Christopher-Dr Gtz. Fever to 101.3 Objective Last Vital Signs Date Time Temp Pulse Resp B/P (MAP) Pulse Ox O2 Delivery O2 Flow Rate FiO2 06/20/18 09:00 108 99/59 06/20/18 09:00 Room Air 06/20/18 08:00 98.8 18 99 Laboratory Tests Test 06/20/18 06:10 White Blood Count 5.3 K/UL (4.8-10.8) Red Blood Count 2.64 M/UL (4.70-6.10) L Hemoglobin 7.0 G/DL (14.2-18.0) L Hematocrit 21.2 % (42.0-52.0) L Mean Corpuscular Volume 80 FL (80-99) Mean Corpuscular Hemoglobin 26.4 PG (27.0-31.0) L Mean Corpuscular Hemoglobin Concent 33.0 G/DL (32.0-36.0) Red Cell Distribution Width 18.8 % (11.6-14.8) H Platelet Count 21 K/UL (150-450) L Mean Platelet Volume 8.4 FL (6.5-10.1) Neutrophils (%) (Auto) % (45.0-75.0) Lymphocytes (%) (Auto) % (20.0-45.0) Monocytes (%) (Auto) % (1.0-10.0) Eosinophils (%) (Auto) % (0.0-3.0) Basophils (%) (Auto) % (0.0-2.0) Differential Total Cells Counted 100 Neutrophils % (Manual) 78 % (45-75) H Lymphocytes % (Manual) 16 % (20-45) L Monocytes % (Manual) 6 % (1-10) Eosinophils % (Manual) 0 % (0-3) Basophils % (Manual) 0 % (0-2) Band Neutrophils 0 % (0-8) Platelet Estimate Decreased L Platelet Morphology Normal Anisocytosis 1+ Prothrombin Time 15.1 SEC (9.30-11.50) H Prothromb Time International Ratio 1.5 (0.9-1.1) H Sodium Level 133 MMOL/L (136-145) L Potassium Level 5.1 MMOL/L (3.5-5.1) Chloride Level 104 MMOL/L (98-107) Carbon Dioxide Level 26 MMOL/L (21-32) Anion Gap 3 mmol/L (5-15) L Blood Urea Nitrogen 37 mg/dL (7-18) H Creatinine 1.4 MG/DL (0.55-1.30) H Estimat Glomerular Filtration Rate > 60 mL/min (>60) Glucose Level 90 MG/DL (74-106) Osmolality 287 mOsm/kg (297-317) L Uric Acid 6.4 MG/DL (2.6-7.2) Calcium Level 6.4 MG/DL (8.5-10.1) L Phosphorus Level 4.7 MG/DL (2.5-4.9) Magnesium Level 2.0 MG/DL (1.8-2.4) Total Bilirubin 0.5 MG/DL (0.2-1.0) Aspartate Amino Transf (AST/SGOT) 28 U/L (15-37) Alanine Aminotransferase (ALT/SGPT) 8 U/L (12-78) L Alkaline Phosphatase 120 U/L (46-116) H Total Protein 5.2 G/DL (6.4-8.2) L Albumin 0.5 G/DL (3.4-5.0) L Globulin 4.7 g/dL Albumin/Globulin Ratio 0.1 (1.0-2.7) L Intake and Output 06/19/18 06/20/18 19:00 07:00 Intake Total 1230 ml Output Total 800 ml Balance 430 ml Intake Oral 980 ml Blood Product 250 ml Output Urine Total 800 ml # Voids 2 # Bowel Movements 2 4 Objective PHYSICAL EXAMINATION: GENERAL: The patient is awake, alert, oriented, chronic ill-appearing, and cachectic. HEAD AND NECK: Pupils reactive to light. Anicteric. Has a strabismus with disconjugate gait. Neck was supple. No JVD. LUNGS: Good air entry. No wheezing or rales. HEART: Tachycardia; Reveals S1, S2. Regular rhythm. No gallops. ABDOMEN: Soft. Mildly distended. No rebound tenderness. No fluid shift. EXTREMITIES: No cyanosis, clubbing, or edema. Muscle atrophy with discoloration of the bilateral lower extremity with hyperpigmentation, and rashes of bilateral lower extremity was noted. NEUROLOGIC: CARPET LOOM FIXER II through XII grossly intact. Motor is 5/5 in all extremities. Gait was not assessed due to the patient's status. Assessment/Plan Assessment/Plan ASSESSMENT: 1. Intractable nausea and vomiting. 2. Severe protein-calorie malnutrition. 3. Hyponatremia. 4. History of HIV/AIDS. 5. Kaposi sarcoma. 6. Castleman syndrome. 7. History of hepatitis B and C positive. 8. Anemia of chronic disease. 9. Thrombocytopenia. 10. Tachycardia 11. Clostridium difficile 12. Anemia 13. Fever PLAN: 1. Admit the patient to monitored unit. 2. We will follow up with Dr. Mobley from Infectious Disease consultation and Dr. Hester from Pulmonary Critical Care. 3. Monitor laboratory. 4. IV hydration. 5. Code status is Full Code. 6. Follow up with broad-spectrum antibiotic with Zosyn. 7. Monitor culture. 8. Anti-emetic medication with Zofran. 9. Resume home medication. 10. ?dehydration due to nausea and diarrhea?-cardiology consult-Dr Howe 11. Oral vanco per ID 12. Patient refusing bone marrow vs lymph node biopsy for castleman's dis-see onc note 13. S/P Transfusion 4 units PRBC total-see hematology note. Adam Padron MD June 20, 2018 13:35
--- NOTE | 2018-06-20 14:15 | NUR ---
NURSE NOTES: S/P blood transfusion 1PRBC x1. No a/r noted. Procedure tolerated well.
--- NOTE | 2018-06-20 14:35 | Infectious Diseases Prog Note ---
Assessment/Plan Assessment/Plan Assessment: Probable Sepsis Multisystemic symptoms (weakness, cough, vomiting)- r/o acute infection/ Opportunistic infection- Probable Castleman recurrence Diarrhea Cdiff + improving Fever most likley 2nd to CMD previous fungal wup are negative, NO leukocytosis -u/a neg -CXR: Questionable infiltrate right perihilar region. Recommend repeat/follow- up -Abd US: Cholelithiasis. Minimal pericholecystic fluid. Correlate clinically for cholecystitis. Thrombocytopenia Anemia CKD Diffuse lymphadenopathy- Ddx: CMV disease (ie colitis), Diffuse MAC, recurrente Castleman, HIV related, lymphoma -05/18 s/p L axillary lymph node biopsy -path fragments of benign lymph node with pronounced polytypic plasmacytosis; focally + HHV8. 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 -05/16/18 CT chest: Mediastinal, axillary, and supraclavicular lymphadenopathy , enlarged compared to the prior CT of the chest. Largest left axillary node measures 3.4 x 2.4 cm. Largest supraclavicular node on the left measures 3.8 x 2.8 cm. Largest mediastinal nodes include a 2.2 x 1.6 cm pretracheal node and a 2.3 x 1.6 cm subcarinal node. Small layering right pleural effusion with fluid in the minor fissure. Kasie-bronchovascular groundglass haziness and nodularity in the right lower lobe. Scattered paraseptal emphysematous changes, predominantly in the upper lung zones. -05/16/18 CT abd/p: Diffuse edema and haziness throughout the mesenteric root. Not significantly changed compared to the visualized portions of the mesenteric root in the prior CT of the chest dated 10/22/17. Mesenteric, retroperitoneal, and inguinal lymphadenopathy. Largest retroperitoneal node measures 3.1 x 2.5 x 2.0 cm to left of the IVC (series 8 image 56, series 10 image 23). Largest left inguinal left node measures 2.9 x 2.5 cm (series 8 image 90). Mild fluid distention and air-fluid levels throughout the colon, which may suggest mild colitis and/or diarrheal disease. No evidence of bowel obstruction. Cholelithiasis without gallbladder wall thickening or ductal dilatation. Scattered subcentimeter hypodensities throughout the spleen, possibly tiny simple cysts. Subcentimeter simple-appearing left renal cortical cysts. Mild urinary bladder wall thickening, most likely related to underdistention. -CT head: . Opacification of the right maxillary sinus, right frontal sinus , and mucosal thickening throughout the ethmoid air cells and left maxillary sinus, suggestive of sinusitis. Partial opacification of the inferior posterior aspect of the left mastoid air cells, suggesting small left mastoid effusion. 04/2018- Cr Ag , T spot, CMV PCR, CMV IgM neg - 10/22/17- CT show reticular opacity and significant lymphadenopathy 10/23/17 - CT abd/pel Lymphadenopathy, Enlarged Pancrease mild B/L hydronephrosis -Blasto, Histo, CrAg neg 11/21/16 - Quantiferon negative (Out Side lab) Recent Colitis -04/2018 Cdiff neg -stool cx normal phi - O and P neg x3 HIV/AIDS- questionable compliance to ARV (dx 1999)- on Truvada and Dolutegravir 05/2018HIV VL 260, -04/2018 Cd4 64 (9.1%); VL 100 ?decrease due to non compliance, however low viremia (will expect higher viremia if non compliance) -10/2017 HIV VL ND, CD4 87 (12.4%) -09/01/17 - CD4 192 and VL - ND (Out Side labs) -no hx of resistance ; previously on Truvada, Reyataz and Norvir -Has been above 200 in the past. Came down with Chemo hx pancreatitis 10/2017 hx of Kaposi's sarcoma/Castleman's disease s/p chemotherapy - S/P Chemo ending 07/17/17 Last PET 08/12/17 - show stable/not worsening lymphadenopathy Hep C+ -VL ND hx of Chronic Hep B, VL <15 09/01/17 RPR, GC/CL : negative hx of DVT Plan: -Continue PO Vancomycin # 6/10-14 ( pt refusing ) ,and Tygacil d# 5 empirically for now ( probable Hosp acquired infection in the setting of C Diff) Bactrim for PCP PPx Cont ARVs - 06/13 SP Zosyn #2 -06/12 SP Flagyl x1 - 05/21/18 SP Ceftriaxone #5 and Flagyl #7 for colitis -05/15/18 SP empiric IV Vancomycin #4 and switch empiric Zosyn #3 to Ceftriaxone and Flagyl -05/16/18 SP Tamiflu #4 - 05/12 SP Cefepime x1 -f/u cx -Monitor CBC/CMP, temperatures -Heme onc c/s -Will need excisional biopsy and bone marrow biopsy- high suspicion for recurrence of Castleman's disease -f/u and genotype, Hep B PCR, -f/u CXR 2 v am -f/u AFB bcx - Fungal blood Cx - Stool Cryptosporidium, Isospora, Cyclospora Subjective Allergies: Coded Allergies: No Known Allergies (Unverified , 10/21/17) Subjective SP PRBC Fever persists Objective Vital Signs Last 24 Hour Vital Signs Date Time Temp Pulse Resp B/P (MAP) Pulse Ox O2 Delivery O2 Flow Rate FiO2 06/20/18 12:01 121 06/20/18 09:00 108 99/59 06/20/18 09:00 Room Air 06/20/18 08:00 98.8 108 18 99/59 (72) 99 06/20/18 07:51 106 06/20/18 04:00 98.2 121 18 107/67 (80) 98 06/20/18 04:00 123 06/20/18 02:55 100.5 06/20/18 02:17 100.5 06/20/18 00:00 121 06/20/18 00:00 101.3 117 18 118/66 (83) 100 06/19/18 21:00 Room Air 06/19/18 20:00 96.9 111 18 92/61 (71) 100 06/19/18 16:00 104 06/19/18 16:00 98.2 109 20 94/56 (69) 97 Height (Feet): 6 Height (Inches): 0.00 Weight (Pounds): 147 HEENT: anicteric Respiratory/Chest: no respiratory distress Cardiovascular: regular rhythm Abdomen: no organomegaly Laboratory Tests Test 06/20/18 06:10 White Blood Count 5.3 K/UL (4.8-10.8) Red Blood Count 2.64 M/UL (4.70-6.10) L Hemoglobin 7.0 G/DL (14.2-18.0) L Hematocrit 21.2 % (42.0-52.0) L Mean Corpuscular Volume 80 FL (80-99) Mean Corpuscular Hemoglobin 26.4 PG (27.0-31.0) L Mean Corpuscular Hemoglobin Concent 33.0 G/DL (32.0-36.0) Red Cell Distribution Width 18.8 % (11.6-14.8) H Platelet Count 21 K/UL (150-450) L Mean Platelet Volume 8.4 FL (6.5-10.1) Neutrophils (%) (Auto) % (45.0-75.0) Lymphocytes (%) (Auto) % (20.0-45.0) Monocytes (%) (Auto) % (1.0-10.0) Eosinophils (%) (Auto) % (0.0-3.0) Basophils (%) (Auto) % (0.0-2.0) Differential Total Cells Counted 100 Neutrophils % (Manual) 78 % (45-75) H Lymphocytes % (Manual) 16 % (20-45) L Monocytes % (Manual) 6 % (1-10) Eosinophils % (Manual) 0 % (0-3) Basophils % (Manual) 0 % (0-2) Band Neutrophils 0 % (0-8) Platelet Estimate Decreased L Platelet Morphology Normal Anisocytosis 1+ Prothrombin Time 15.1 SEC (9.30-11.50) H Prothromb Time International Ratio 1.5 (0.9-1.1) H Sodium Level 133 MMOL/L (136-145) L Potassium Level 5.1 MMOL/L (3.5-5.1) Chloride Level 104 MMOL/L (98-107) Carbon Dioxide Level 26 MMOL/L (21-32) Anion Gap 3 mmol/L (5-15) L Blood Urea Nitrogen 37 mg/dL (7-18) H Creatinine 1.4 MG/DL (0.55-1.30) H Estimat Glomerular Filtration Rate > 60 mL/min (>60) Glucose Level 90 MG/DL (74-106) Osmolality 287 mOsm/kg (297-317) L Uric Acid 6.4 MG/DL (2.6-7.2) Calcium Level 6.4 MG/DL (8.5-10.1) L Phosphorus Level 4.7 MG/DL (2.5-4.9) Magnesium Level 2.0 MG/DL (1.8-2.4) Total Bilirubin 0.5 MG/DL (0.2-1.0) Aspartate Amino Transf (AST/SGOT) 28 U/L (15-37) Alanine Aminotransferase (ALT/SGPT) 8 U/L (12-78) L Alkaline Phosphatase 120 U/L (46-116) H Total Protein 5.2 G/DL (6.4-8.2) L Albumin 0.5 G/DL (3.4-5.0) L Globulin 4.7 g/dL Albumin/Globulin Ratio 0.1 (1.0-2.7) L Current Medications Medications (Trade) Dose Ordered Sig/Yessica Route PRN Reason Start Time Stop Time Status Last Admin Dose Admin Acetaminophen (Tylenol) 650 mg Q4H PRN ORAL fever 06/12/18 09:30 07/12/18 09:29 06/20/18 02:25 Carvedilol (Coreg) 3.125 mg EVERY 12 HOURS ORAL 06/18/18 21:00 07/18/18 20:59 06/19/18 08:39 Dextrose (Dextrose 50%) 25 ml Q30M PRN IV Hypoglycemia 06/12/18 09:30 07/12/18 09:29 Dextrose (Dextrose 50%) 50 ml Q30M PRN IV Hypoglycemia 06/12/18 09:30 07/12/18 09:29 Diphenhydramine HCl (Benadryl) 25 mg Q6H PRN ORAL Itching/Pruritis 06/12/18 09:30 07/12/18 09:29 06/20/18 11:30 Dronabinol (Marinol) 2.5 mg TID ORAL 06/15/18 13:00 07/13/18 17:59 06/20/18 13:50 Epoetin Jefreson (Epoetin Jeferson-EPBX(NON ESRD)) 10,000 unit FRI-FRI-FRI SUBQ 06/19/18 21:00 07/19/18 20:59 06/19/18 22:22 Folic Acid (Folate) 5 mg DAILY ORAL 06/15/18 11:15 07/15/18 11:14 06/20/18 09:52 Lactobacillus Acidophilus (Culturelle) 1 tab THREE TIMES A DAY ORAL 06/14/18 18:00 07/14/18 17:59 06/20/18 13:50 Lorazepam (Ativan 2mg/ml 1ml) 1 mg Q4H PRN IV For Anxiety 06/18/18 11:00 06/25/18 10:59 Mirtazapine (Remeron) 15 mg BEDTIME ORAL 06/12/18 21:00 07/12/18 20:59 06/19/18 22:22 Morphine Sulfate (Morphine Sulfate) 4 mg Q4H PRN IVP Severe Pain (Pain Scale 7-10) 06/18/18 11:00 06/25/18 10:59 06/20/18 11:30 Nitroglycerin (Ntg) 0.4 mg Q5M X 3 DOSES PRN SL Prn Chest Pain 06/12/18 09:30 07/12/18 09:29 Ondansetron HCl (Zofran) 4 mg Q6H PRN IVP Nausea & Vomiting 06/12/18 09:30 07/12/18 09:29 06/15/18 09:32 Pantoprazole (Protonix) 40 mg EVERY 12 HOURS ORAL 06/14/18 21:00 07/14/18 20:59 06/20/18 09:52 Patient Own Medication (Patient's Own Med) 1 ea DAILY ORAL 06/13/18 15:30 07/13/18 15:29 06/20/18 09:51 Patient Own Medication (Patient's Own Med) 1 ea DAILY ORAL 06/13/18 15:30 07/13/18 15:29 06/20/18 09:51 Promethazine HCl (Phenergan) 25 mg Q6H PRN IM REFRACTORY N/V 06/12/18 09:30 07/12/18 09:29 Temazepam (Restoril) 15 mg HSPRN PRN ORAL Insomnia 06/18/18 21:00 06/25/18 20:59 Tigecycline 50 mg/ Sodium Chloride 110 ml @ 220 mls/hr EVERY 12 HOURS IVPB 06/17/18 09:00 06/24/18 08:59 06/20/18 09:57 Trimethoprim/ Sulfamethoxazole (Bactrim Single Strength) 1 tab DAILY ORAL 06/17/18 09:00 06/24/18 08:59 06/20/18 09:52 Vancomycin HCl (Firvanq) 125 mg FOUR TIMES A DAY ORAL 06/13/18 09:00 06/25/18 08:59 06/20/18 13:50 Jez Mendoza MD June 20, 2018 14:35
--- NOTE | 2018-06-20 15:17 | Cardiac Electrophysiology PN ---
Assessment/Plan Assessment/Plan 1. Sinus tachycardia, due to sepsis, anemia and pain. Ruled out for CA. EKG showed no acute ischemic changes. No evidence of atrial fibrillation or supraventricular tachycardia. EF 75%. S/P transfusion. On broad spectrum iv antibiotics Got PRBC today again 2. History of hypertension. Stable off on antihypertensive agents. 3. 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 5. History of pancreatitis and hepatitis B and C positive. 6. Severe anemia. Hb 9 to 6.4. S/P transfusion 7. Hyponatremia Na 127, s/p 3% saline. Na 133 DW RN Subjective Subjective In sinus tach 110-120s. Got PRBC today Objective Last 24 Hour Vital Signs Date Time Temp Pulse Resp B/P (MAP) Pulse Ox O2 Delivery O2 Flow Rate FiO2 06/20/18 12:01 121 06/20/18 09:00 108 99/59 06/20/18 09:00 Room Air 06/20/18 08:00 98.8 108 18 99/59 (72) 99 06/20/18 07:51 106 06/20/18 04:00 98.2 121 18 107/67 (80) 98 06/20/18 04:00 123 06/20/18 02:55 100.5 06/20/18 02:17 100.5 06/20/18 00:00 121 06/20/18 00:00 101.3 117 18 118/66 (83) 100 06/19/18 21:00 Room Air 06/19/18 20:00 96.9 111 18 92/61 (71) 100 06/19/18 16:00 104 06/19/18 16:00 98.2 109 20 94/56 (69) 97 Intake and Output 06/19/18 06/20/18 19:00 07:00 Intake Total 1230 ml Output Total 800 ml Balance 430 ml Intake Oral 980 ml Blood Product 250 ml Output Urine Total 800 ml # Voids 2 # Bowel Movements 2 4 Laboratory Tests Test 06/20/18 06:10 White Blood Count 5.3 K/UL (4.8-10.8) Red Blood Count 2.64 M/UL (4.70-6.10) L Hemoglobin 7.0 G/DL (14.2-18.0) L Hematocrit 21.2 % (42.0-52.0) L Mean Corpuscular Volume 80 FL (80-99) Mean Corpuscular Hemoglobin 26.4 PG (27.0-31.0) L Mean Corpuscular Hemoglobin Concent 33.0 G/DL (32.0-36.0) Red Cell Distribution Width 18.8 % (11.6-14.8) H Platelet Count 21 K/UL (150-450) L Mean Platelet Volume 8.4 FL (6.5-10.1) Neutrophils (%) (Auto) % (45.0-75.0) Lymphocytes (%) (Auto) % (20.0-45.0) Monocytes (%) (Auto) % (1.0-10.0) Eosinophils (%) (Auto) % (0.0-3.0) Basophils (%) (Auto) % (0.0-2.0) Differential Total Cells Counted 100 Neutrophils % (Manual) 78 % (45-75) H Lymphocytes % (Manual) 16 % (20-45) L Monocytes % (Manual) 6 % (1-10) Eosinophils % (Manual) 0 % (0-3) Basophils % (Manual) 0 % (0-2) Band Neutrophils 0 % (0-8) Platelet Estimate Decreased L Platelet Morphology Normal Anisocytosis 1+ Prothrombin Time 15.1 SEC (9.30-11.50) H Prothromb Time International Ratio 1.5 (0.9-1.1) H Sodium Level 133 MMOL/L (136-145) L Potassium Level 5.1 MMOL/L (3.5-5.1) Chloride Level 104 MMOL/L (98-107) Carbon Dioxide Level 26 MMOL/L (21-32) Anion Gap 3 mmol/L (5-15) L Blood Urea Nitrogen 37 mg/dL (7-18) H Creatinine 1.4 MG/DL (0.55-1.30) H Estimat Glomerular Filtration Rate > 60 mL/min (>60) Glucose Level 90 MG/DL (74-106) Osmolality 287 mOsm/kg (297-317) L Uric Acid 6.4 MG/DL (2.6-7.2) Calcium Level 6.4 MG/DL (8.5-10.1) L Phosphorus Level 4.7 MG/DL (2.5-4.9) Magnesium Level 2.0 MG/DL (1.8-2.4) Total Bilirubin 0.5 MG/DL (0.2-1.0) Aspartate Amino Transf (AST/SGOT) 28 U/L (15-37) Alanine Aminotransferase (ALT/SGPT) 8 U/L (12-78) L Alkaline Phosphatase 120 U/L (46-116) H Total Protein 5.2 G/DL (6.4-8.2) L Albumin 0.5 G/DL (3.4-5.0) L Globulin 4.7 g/dL Albumin/Globulin Ratio 0.1 (1.0-2.7) L Objective HEAD AND NECK: no JVD. LUNGS: Decreased breath sounds. CARDIOVASCULAR: Tachycardic, S1, S2 with no gallop. ABDOMEN: Soft. EXTREMITIES: Chronic skin changes and edema. Toney Howe MD June 20, 2018 15:17
[2018-06-20 16:00] VITALS: BP 100/62
--- NOTE | 2018-06-20 16:36 | Nephrology Progress Note ---
Assessment/Plan Problem List: (1) Hyponatremia (2) Kaposi disease (3) HIV disease (4) Anemia (5) Hepatitis B (6) Hepatitis C (7) C. difficile colitis (8) Malnutrition Assessment HypoNatremia , etiology ? will comment after urine studies and blood test results available Intractable nausea and vomiting. Severe protein-calorie malnutrition. History of HIV/AIDS. Kaposi sarcoma. Sepsis Anemia, PanCytopenia C diff Hep B and Hep C Plan transfuse- Per ID- add coreg add epo trial of 3% saline and Lasix as needed continue per consultants Per orders Subjective ROS Limited/Unobtainable: No Constitutional: Reports: malaise Objective Objective Last 24 Hour Vital Signs Date Time Temp Pulse Resp B/P (MAP) Pulse Ox O2 Delivery O2 Flow Rate FiO2 06/20/18 16:00 100.5 124 20 100/62 (75) 98 06/20/18 12:01 121 06/20/18 12:00 98.0 128 18 103/68 (80) 98 06/20/18 09:00 108 99/59 06/20/18 09:00 Room Air 06/20/18 08:00 98.8 108 18 99/59 (72) 99 06/20/18 07:51 106 06/20/18 04:00 98.2 121 18 107/67 (80) 98 06/20/18 04:00 123 06/20/18 02:55 100.5 06/20/18 02:17 100.5 06/20/18 00:00 121 06/20/18 00:00 101.3 117 18 118/66 (83) 100 06/19/18 21:00 Room Air 06/19/18 20:00 96.9 111 18 92/61 (71) 100 Intake and Output 06/19/18 06/20/18 19:00 07:00 Intake Total 1230 ml Output Total 800 ml Balance 430 ml Intake Oral 980 ml Blood Product 250 ml Output Urine Total 800 ml # Voids 2 # Bowel Movements 2 4 Laboratory Tests 06/20/18 06:10: White Blood Count 5.3, Red Blood Count 2.64L, Hemoglobin 7.0L, Hematocrit 21.2L , Mean Corpuscular Volume 80, Mean Corpuscular Hemoglobin 26.4L, Mean Corpuscular Hemoglobin Concent 33.0, Red Cell Distribution Width 18.8H, Platelet Count 21L, Mean Platelet Volume 8.4, Neutrophils (%) (Auto) , Lymphocytes (%) (Auto) , Monocytes (%) (Auto) , Eosinophils (%) (Auto) , Basophils (%) (Auto) , Differential Total Cells Counted 100, Neutrophils % ( Manual) 78H, Lymphocytes % (Manual) 16L, Monocytes % (Manual) 6, Eosinophils % ( Manual) 0, Basophils % (Manual) 0, Band Neutrophils 0, Platelet Estimate DecreasedL, Platelet Morphology Normal, Anisocytosis 1+, Prothrombin Time 15.1H , Prothromb Time International Ratio 1.5H, Sodium Level 133L, Potassium Level 5.1, Chloride Level 104, Carbon Dioxide Level 26, Anion Gap 3L, Blood Urea Nitrogen 37H, Creatinine 1.4H, Estimat Glomerular Filtration Rate > 60, Glucose Level 90, Osmolality 287L, Uric Acid 6.4, Calcium Level 6.4L, Phosphorus Level 4.7, Magnesium Level 2.0, Total Bilirubin 0.5, Aspartate Amino Transf (AST/SGOT ) 28, Alanine Aminotransferase (ALT/SGPT) 8L, Alkaline Phosphatase 120H, Total Protein 5.2L, Albumin 0.5L, Globulin 4.7, Albumin/Globulin Ratio 0.1L Height (Feet): 6 Height (Inches): 0.00 Weight (Pounds): 147 General Appearance: no apparent distress Objective no change Adam Aguiar MD June 20, 2018 16:36
--- NOTE | 2018-06-20 19:32 | NUR ---
HAND-OFF: Report given to Amanda JOSHUA. Pt. remain stable.
[2018-06-20 20:00] VITALS: BP 98/61
[2018-06-20 20:08] LABS: HEMATOCRIT 23.6 % (42.0-52.0); MEAN CORPUSCULAR VOLUME 79 FL (80-99); PLATELET COUNT 24 K/UL (150-450); RED BLOOD COUNT 3.01 M/UL (4.70-6.10); RED CELL DISTRIBUTION WIDTH 17.6 % (11.6-14.8)
--- NOTE | 2018-06-20 20:38 | NUR ---
NURSE NOTES: Pt refused all meds at this time. Will try again in an hour. Will continue to monitor
--- NOTE | 2018-06-20 21:29 | NUR ---
NURSE NOTES: Received pt from Neo RN. Pt awake, alert, and c/o pain. Bed in lowest position. Call light within reach. Will offer morphine and will continue to monitor.
[2018-06-21] VITALS: BP 104/65
[2018-06-21 04:00] VITALS: BP 100/60
[2018-06-21] MEDS: Morphine Sulfate 4mg/ml Inj (IV USE ONLY) IVP PRN ×2 (06:33→12:47)
--- NOTE | 2018-06-21 07:30 | NUR ---
NURSE NOTES: Received report from TRES Patel. Patient in bed resting, no active s/s cardiac, respiratory distress noticed at this time, Patient on room air, ST with HR 123, AO x4. Endorsed 1 unit of PRBC given yesterday 06/20/18, IV on left FA 22 G, asymptomatic, patent, intact. Bed in lowest position, side rails upx3, call light within reach. Will continue to monitor.
[2018-06-21 07:34] LABS: HEMATOCRIT 24.8 % (42.0-52.0); HEMOGLOBIN 8.2 G/DL (14.2-18.0); MEAN CORPUSCULAR VOLUME 81 FL (80-99); PLATELET COUNT 23 K/UL (150-450); RED BLOOD COUNT 3.06 M/UL (4.70-6.10); RED CELL DISTRIBUTION WIDTH 18.5 % (11.6-14.8); WHITE BLOOD COUNT 6.1 K/UL (4.8-10.8)
--- NOTE | 2018-06-21 07:43 | Pulmonology Progress Note ---
Assessment/Plan Assessment/Plan ASSESSMENT sepsis HIV disease Hx of Kaposi sarcoma/Castleman disease, status post chemotherapy Acute tubular necrosis on chronic kidney disease Cyclic vomiting syndrome Severe protein calorie malnutrition Anemia of chronic disease Pancytopenia C. difficile colitis Anemia of folic acid deficiency Chronic hep B Hepatitis C Hyponatremia Diffuse lymphadenopathy PLAN OF CARE tele abx as per ID recs stool positive for C. difficile , p.o. Vanco and Tygacil empirically, probably hospital-acquired infection in the setting of C. 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 oncologist followed continue with HAART therapy so far pt declined biopsy despite explanation by oncologist urinalysis negative chest x-ray with questionable infiltrate right perihilar region follow-up with chest x-ray O2 HHN prn patient with evidence of diffuse lymphadenopathy , status post isolated lymph node; pathology c/w Castleman disease s/p chemo 2017 , lastPET in 2017- not worsening lymphadenopathy Nephro follows hyponatremia work-up started on trial of 3% saline and Lasix protein supplements GI prophylaxis GI follows continue Marinol antiemetic as needed avoid nephrotoxic's monitor H&H with goal to keep hemoglobin above 7 , Hgb better-8.2 anemia work-up c/w anemia of chronic disease started on folate due to deficiency cardio follows patient with ST due to sepsis ,anemia and pain , patient was ruled out for acute [place] by serial negative troponin and no acute ischemic changes on ECG Echo with preserved ejection fraction supportive care patient ready for dc today, discussed with pt, agreed with plan case discussed and evaluated by supervising physician Subjective Allergies: Coded Allergies: No Known Allergies (Unverified , 10/21/17) Subjective on RA no signs of resp distress Hgb up to 8.2 after additional unit of PRBC on 06/20 Objective Last 24 Hour Vital Signs Date Time Temp Pulse Resp B/P (MAP) Pulse Ox O2 Delivery O2 Flow Rate FiO2 06/21/18 04:00 98.9 123 20 100/60 (73) 98 06/21/18 04:00 122 06/21/18 00:00 98.4 108 20 104/65 (78) 98 06/21/18 00:00 114 06/20/18 21:00 Room Air 06/20/18 21:00 127 98/61 06/20/18 20:28 95 06/20/18 20:00 99.9 127 17 98/61 (73) 80 06/20/18 20:00 124 06/20/18 16:32 98.4 06/20/18 16:00 100.5 124 20 100/62 (75) 98 06/20/18 15:35 120 06/20/18 12:01 121 06/20/18 12:00 98.0 128 18 103/68 (80) 98 06/20/18 09:00 108 99/59 06/20/18 09:00 Room Air 06/20/18 08:00 98.8 108 18 99/59 (72) 99 06/20/18 07:51 106 Intake and Output 06/20/18 06/21/18 19:00 07:00 Intake Total 600 ml Output Total 1400 ml Balance -800 ml Intake Oral 600 ml Output Urine Total 1400 ml # Bowel Movements 1 3 Objective General Appearance: no acute distress, cachetic awake, responsive AA male HEENT: normocephalic, atraumatic, anicteric, mucous membranes moist Respiratory/Chest: decreased breath sounds Cardiovascular: normal rate - SR on tele, Abdomen: normal bowel sounds, soft, non tender, non distended Extremities: no edema, pedal pulses normal Neurologic/Psychiatric: alert, responsive Musculoskeletal: atrophy Laboratory Tests 06/20/18 19:55: White Blood Count 7.0, Red Blood Count 3.01L, Hemoglobin 8.0L, Hematocrit 23.6L , Mean Corpuscular Volume 79L, Mean Corpuscular Hemoglobin 26.7L, Mean Corpuscular Hemoglobin Concent 34.0, Red Cell Distribution Width 17.6H, Platelet Count 24L, Mean Platelet Volume 7.0, Neutrophils (%) (Auto) , Lymphocytes (%) (Auto) , Monocytes (%) (Auto) , Eosinophils (%) (Auto) , Basophils (%) (Auto) , Differential Total Cells Counted 100, Neutrophils % ( Manual) 69, Lymphocytes % (Manual) 26, Monocytes % (Manual) 5, Eosinophils % ( Manual) 0, Basophils % (Manual) 0, Band Neutrophils 0, Platelet Estimate DecreasedL, Platelet Morphology Normal, Hypochromasia 1+, Anisocytosis 1+ 06/21/18 06:45: White Blood Count 6.1, Red Blood Count 3.06L, Hemoglobin 8.2L, Hematocrit 24.8L , Mean Corpuscular Volume 81, Mean Corpuscular Hemoglobin 26.8L, Mean Corpuscular Hemoglobin Concent 33.1, Red Cell Distribution Width 18.5H, Platelet Count 23L, Mean Platelet Volume 7.0, Neutrophils (%) (Auto) , Lymphocytes (%) (Auto) , Monocytes (%) (Auto) , Eosinophils (%) (Auto) , Basophils (%) (Auto) , Neutrophils % (Manual) [Pending], Lymphocytes % (Manual) [Pending], Platelet Estimate [Pending], Platelet Morphology [Pending], Sodium Level [Pending], Potassium Level [Pending], Chloride Level [Pending], Carbon Dioxide Level [Pending], Blood Urea Nitrogen [Pending], Creatinine [Pending], Estimat Glomerular Filtration Rate [Pending], Glucose Level [Pending], Calcium Level [Pending] Current Medications Medications (Trade) Dose Ordered Sig/Yessica Route PRN Reason Start Time Stop Time Status Last Admin Dose Admin Acetaminophen (Tylenol) 650 mg Q4H PRN ORAL fever 06/12/18 09:30 07/12/18 09:29 06/20/18 16:02 Carvedilol (Coreg) 3.125 mg EVERY 12 HOURS ORAL 06/18/18 21:00 07/18/18 20:59 06/19/18 08:39 Dextrose (Dextrose 50%) 25 ml Q30M PRN IV Hypoglycemia 06/12/18 09:30 07/12/18 09:29 Dextrose (Dextrose 50%) 50 ml Q30M PRN IV Hypoglycemia 06/12/18 09:30 07/12/18 09:29 Diphenhydramine HCl (Benadryl) 25 mg Q6H PRN ORAL Itching/Pruritis 06/12/18 09:30 07/12/18 09:29 06/20/18 11:30 Dronabinol (Marinol) 2.5 mg TID ORAL 06/15/18 13:00 07/13/18 17:59 06/20/18 18:06 Epoetin Jeferson (Epoetin Jeferson-EPBX(NON ESRD)) 10,000 unit FRI-FRI-FRI SUBQ 06/19/18 21:00 07/19/18 20:59 06/19/18 22:22 Folic Acid (Folate) 5 mg DAILY ORAL 06/15/18 11:15 07/15/18 11:14 06/20/18 09:52 Lactobacillus Acidophilus (Culturelle) 1 tab THREE TIMES A DAY ORAL 06/14/18 18:00 07/14/18 17:59 06/20/18 18:06 Lorazepam (Ativan 2mg/ml 1ml) 1 mg Q4H PRN IV For Anxiety 06/18/18 11:00 06/25/18 10:59 Mirtazapine (Remeron) 15 mg BEDTIME ORAL 06/12/18 21:00 07/12/18 20:59 06/20/18 21:45 Morphine Sulfate (Morphine Sulfate) 4 mg Q4H PRN IVP Severe Pain (Pain Scale 7-10) 06/18/18 11:00 06/25/18 10:59 06/21/18 06:33 Nitroglycerin (Ntg) 0.4 mg Q5M X 3 DOSES PRN SL Prn Chest Pain 06/12/18 09:30 07/12/18 09:29 Ondansetron HCl (Zofran) 4 mg Q6H PRN IVP Nausea & Vomiting 06/12/18 09:30 07/12/18 09:29 06/15/18 09:32 Pantoprazole (Protonix) 40 mg EVERY 12 HOURS ORAL 06/14/18 21:00 07/14/18 20:59 06/20/18 21:45 Patient Own Medication (Patient's Own Med) 1 ea DAILY ORAL 06/13/18 15:30 07/13/18 15:29 06/20/18 09:51 Patient Own Medication (Patient's Own Med) 1 ea DAILY ORAL 06/13/18 15:30 07/13/18 15:29 06/20/18 09:51 Promethazine HCl (Phenergan) 25 mg Q6H PRN IM REFRACTORY N/V 06/12/18 09:30 07/12/18 09:29 Temazepam (Restoril) 15 mg HSPRN PRN ORAL Insomnia 06/18/18 21:00 06/25/18 20:59 Tigecycline 50 mg/ Sodium Chloride 110 ml @ 220 mls/hr EVERY 12 HOURS IVPB 06/17/18 09:00 06/24/18 08:59 06/20/18 21:41 Trimethoprim/ Sulfamethoxazole (Bactrim Single Strength) 1 tab DAILY ORAL 06/17/18 09:00 06/24/18 08:59 06/20/18 09:52 Vancomycin HCl (Firvanq) 125 mg FOUR TIMES A DAY ORAL 06/13/18 09:00 06/25/18 08:59 06/20/18 21:46 Gerri Almeida NP June 21, 2018 07:43
--- NOTE | 2018-06-21 07:48 | NUR ---
HAND-OFF: Report given to TRES Guerra. Pt stable.
[2018-06-21 07:51] LABS: ANION GAP 4 mmol/L (5-15); BLOOD UREA NITROGEN 36 mg/dL (7-18); CALCIUM 6.3 MG/DL (8.5-10.1); CARBON DIOXIDE 25 MMOL/L (21-32); CHLORIDE 106 MMOL/L (98-107); CREATININE 1.5 MG/DL (0.55-1.30); SODIUM 135 MMOL/L (136-145)
[2018-06-21 08:00] VITALS: BP 101/67
[2018-06-21] MEDS: Tigecycline 50 MG in NS 110 ML IVPB SCH (08:44)
[2018-06-21] MEDS: Bactrim SS Tab ORAL SCH (08:57)
[2018-06-21] MEDS: Lactobacillus-GG tablet ORAL SCH ×2 (08:58→12:46)
[2018-06-21] MEDS: Vancomycin oral 125mg/2.5ml ORAL SCH ×2 (08:58→12:46)
[2018-06-21] MEDS: Dronabinol 2.5mg Cap ORAL SCH ×2 (08:58→12:46)
--- NOTE | 2018-06-21 09:20 | NUR ---
NURSE NOTES: Per Dr. Bingham, if can get outside records of his Castleman's disease MD notes and pathology is needed. Order noted, entered, carried out.
--- NOTE | 2018-06-21 09:28 | General Progress Note ---
Assessment/Plan Problem List: (1) Anemia ICD Codes: D64.9 - Anemia, unspecified SNOMED: 359891302 (2) C. difficile colitis ICD Codes: A04.72 - Enterocolitis due to Clostridium difficile, not specified as recurrent SNOMED: 718613338 (3) generalized weakness, kaposi sarcoma (4) Diarrhea ICD Codes: R19.7 - Diarrhea, unspecified SNOMED: 82760475 (5) HIV disease ICD Codes: B20 - Human immunodeficiency virus [HIV] disease SNOMED: 86754120 (6) Kaposi disease ICD Codes: Q82.1 - Xeroderma pigmentosum SNOMED: 00200005 Status: unchanged Assessment/Plan: C. difficile positive OB stool positive on marinol with good response push PO vanco H2B fu ID fu H&H, transfuse if hgb below 7 supportive care GI procedures if needed Subjective ROS Limited/Unobtainable: Yes Allergies: Coded Allergies: No Known Allergies (Unverified , 10/21/17) Objective Last 24 Hour Vital Signs Date Time Temp Pulse Resp B/P (MAP) Pulse Ox O2 Delivery O2 Flow Rate FiO2 06/21/18 09:00 Room Air 06/21/18 08:57 113 101/67 06/21/18 08:00 98.6 113 20 101/67 (78) 100 06/21/18 04:00 98.9 123 20 100/60 (73) 98 06/21/18 04:00 122 06/21/18 00:00 98.4 108 20 104/65 (78) 98 06/21/18 00:00 114 06/20/18 21:00 Room Air 06/20/18 21:00 127 98/61 06/20/18 20:28 95 06/20/18 20:00 99.9 127 17 98/61 (73) 80 06/20/18 20:00 124 06/20/18 16:32 98.4 06/20/18 16:00 100.5 124 20 100/62 (75) 98 06/20/18 15:35 120 06/20/18 12:01 121 06/20/18 12:00 98.0 128 18 103/68 (80) 98 Intake and Output 06/20/18 06/21/18 19:00 07:00 Intake Total 600 ml Output Total 1400 ml Balance -800 ml Intake Oral 600 ml Output Urine Total 1400 ml # Bowel Movements 1 3 Laboratory Tests 06/20/18 19:55: White Blood Count 7.0, Red Blood Count 3.01L, Hemoglobin 8.0L, Hematocrit 23.6L , Mean Corpuscular Volume 79L, Mean Corpuscular Hemoglobin 26.7L, Mean Corpuscular Hemoglobin Concent 34.0, Red Cell Distribution Width 17.6H, Platelet Count 24L, Mean Platelet Volume 7.0, Neutrophils (%) (Auto) , Lymphocytes (%) (Auto) , Monocytes (%) (Auto) , Eosinophils (%) (Auto) , Basophils (%) (Auto) , Differential Total Cells Counted 100, Neutrophils % ( Manual) 69, Lymphocytes % (Manual) 26, Monocytes % (Manual) 5, Eosinophils % ( Manual) 0, Basophils % (Manual) 0, Band Neutrophils 0, Platelet Estimate DecreasedL, Platelet Morphology Normal, Hypochromasia 1+, Anisocytosis 1+ 06/21/18 06:45: White Blood Count 6.1, Red Blood Count 3.06L, Hemoglobin 8.2L, Hematocrit 24.8L , Mean Corpuscular Volume 81, Mean Corpuscular Hemoglobin 26.8L, Mean Corpuscular Hemoglobin Concent 33.1, Red Cell Distribution Width 18.5H, Platelet Count 23L, Mean Platelet Volume 7.0, Neutrophils (%) (Auto) , Lymphocytes (%) (Auto) , Monocytes (%) (Auto) , Eosinophils (%) (Auto) , Basophils (%) (Auto) , Neutrophils % (Manual) [Pending], Lymphocytes % (Manual) [Pending], Platelet Estimate [Pending], Platelet Morphology [Pending], Sodium Level 135L, Potassium Level 5.0, Chloride Level 106, Carbon Dioxide Level 25, Anion Gap 4L, Blood Urea Nitrogen 36H, Creatinine 1.5H, Estimat Glomerular Filtration Rate > 60, Glucose Level 95, Calcium Level 6.3L Height (Feet): 6 Height (Inches): 0.00 Weight (Pounds): 147 General Appearance: alert EENT: normal ENT inspection Neck: supple Cardiovascular: normal rate Respiratory/Chest: decreased breath sounds Abdomen: normal bowel sounds, non tender, soft Extremities: non-tender Michael Grande MD June 21, 2018 09:27
--- NOTE | 2018-06-21 11:49 | General Progress Note ---
Assessment/Plan Status: unchanged Assessment/Plan: Assessment and Recs # Pancytopenia, worsening, with severe diffuse lymphadenopathy worsened since 2018, in the setting Castlemans's disease/KS - outpatient chemo has been received as recently 09/2017 or so. Hx of HIV, CD4 count very low. He has a very poor memory, says was treated at [facility] S/P Chemo ending 07/17/17. Last PET 08/12 - show stable/not worsening lymphadenopathy. Has very extensive disease on ct scan lympahdenopathy noted throughout, final results of axilla lymphadenopathy biopsy on 05/25/18, and FINAL results from prior admission are nondiagnostic --> I talked with him regarding getting potentially another biopsy (bulky lymph node v bone marrow biopsy) he has thus far refused -- HE HAS BEEN NONCOMPLIANT --> IL-6 was 54 in the past indicating active disease, needs close followup with heme outpatient, would again recommend first a biopsy and further recommendations after procedure --> HHV-8 lab request ordered --> inflammatory makers are elevated which can be c/w flare but are fairly non- specific --> imaging is ordered as well --> outpatient f/u as well for futher therapy prn --> treat underlying HIV as per ID service ==> plt trend 39-->34-->25-->26k-->23k # Anemia of chronic disease -- workup has been reviewed --> esr elevated, as is crp --> transfuse if hgb <7 => hgb trend 7.5-->7.4-->7.8 # Anemia of folic acid deficiency --> start patient on folic acid 1mg po daily, continue given low levels # DVT hx that was diagnosed at outpatient hospital --> inpatient venous duplex is negative for thromboembolism, therefore DOES not require anticoagulants --> have discussed this with patients and patient's mother # Sepsis - PNA, [place], other infection, TB? --> on HIV meds, abx as needed # HIV - On Tivicay and Truvada and Bactrim, CD4 count 64 --> VL pending, CD4 count ordered <100 --> IL-6 is 51 # REENA cr 1.2-->1.1 The timing of this note does not necessarily reflect the time of the patient was seen. Greatly appreciate consultation. Subjective Cardiovascular: Denies: no symptoms, chest pain, edema, irregular heart rate, lightheadedness, palpitations, syncope, other Respiratory: Denies: no symptoms, cough, orthopnea, shortness of breath, SOB with excertion, SOB at rest, sputum, stridor, wheezing, other Gastrointestinal/Abdominal: Denies: no symptoms, abdomen distended, abdominal pain, black stools, tarry stools, blood in stool, constipated, diarrhea, difficulty swallowing, nausea, poor appetite, poor fluid intake, rectal bleeding , vomiting, other Genitourinary: Denies: no symptoms, burning, discharge, frequency, flank pain, hematuria, incontinence, pain, urgency, other Neurologic/Psychiatric: Denies: no symptoms, anxiety, depressed, emotional problems, headache, numbness, paresthesia, pre-existing deficit, seizure, tingling, tremors, weakness, other Endocrine: Denies: no symptoms, excessive sweating, flushing, intolerance to cold, intolerance to heat, increased hunger, increased thirst, increased urine, unexplained weight gain, unexplained weight loss, other Allergies: Coded Allergies: No Known Allergies (Unverified , 10/21/17) Subjective 06/15: to get 2 units pf prbc today, seen by pulm, he still doesn't want a bone marrow biopsy 06/16: feeling better, still doesn't want to do a biopsy, says wants to watch and wait 06/17: remains febrile, doesn't want to do frequent lab draws, further labs pending 5: labs reviewed, are better, epo has been added 5: reviewed labs, requiring blood transfusion, plts remains low 06/21: patient agrees to potential dc, still does not want any bmbx Objective Last 24 Hour Vital Signs Date Time Temp Pulse Resp B/P (MAP) Pulse Ox O2 Delivery O2 Flow Rate FiO2 06/21/18 09:00 Room Air 06/21/18 08:57 113 101/67 06/21/18 08:00 98.6 113 20 101/67 (78) 100 06/21/18 04:00 98.9 123 20 100/60 (73) 98 06/21/18 04:00 122 06/21/18 00:00 98.4 108 20 104/65 (78) 98 06/21/18 00:00 114 06/20/18 21:00 Room Air 06/20/18 21:00 127 98/61 06/20/18 20:28 95 06/20/18 20:00 99.9 127 17 98/61 (73) 80 06/20/18 20:00 124 06/20/18 16:32 98.4 06/20/18 16:00 100.5 124 20 100/62 (75) 98 06/20/18 15:35 120 06/20/18 12:01 121 06/20/18 12:00 98.0 128 18 103/68 (80) 98 Intake and Output 06/20/18 06/21/18 19:00 07:00 Intake Total 600 ml Output Total 1400 ml Balance -800 ml Intake Oral 600 ml Output Urine Total 1400 ml # Bowel Movements 1 3 Laboratory Tests 06/20/18 19:55: White Blood Count 7.0, Red Blood Count 3.01L, Hemoglobin 8.0L, Hematocrit 23.6L , Mean Corpuscular Volume 79L, Mean Corpuscular Hemoglobin 26.7L, Mean Corpuscular Hemoglobin Concent 34.0, Red Cell Distribution Width 17.6H, Platelet Count 24L, Mean Platelet Volume 7.0, Neutrophils (%) (Auto) , Lymphocytes (%) (Auto) , Monocytes (%) (Auto) , Eosinophils (%) (Auto) , Basophils (%) (Auto) , Differential Total Cells Counted 100, Neutrophils % ( Manual) 69, Lymphocytes % (Manual) 26, Monocytes % (Manual) 5, Eosinophils % ( Manual) 0, Basophils % (Manual) 0, Band Neutrophils 0, Platelet Estimate DecreasedL, Platelet Morphology Normal, Hypochromasia 1+, Anisocytosis 1+ 06/21/18 06:45: White Blood Count 6.1, Red Blood Count 3.06L, Hemoglobin 8.2L, Hematocrit 24.8L , Mean Corpuscular Volume 81, Mean Corpuscular Hemoglobin 26.8L, Mean Corpuscular Hemoglobin Concent 33.1, Red Cell Distribution Width 18.5H, Platelet Count 23L, Mean Platelet Volume 7.0, Neutrophils (%) (Auto) , Lymphocytes (%) (Auto) , Monocytes (%) (Auto) , Eosinophils (%) (Auto) , Basophils (%) (Auto) , Differential Total Cells Counted 100, Neutrophils % ( Manual) 69, Lymphocytes % (Manual) 27, Monocytes % (Manual) 4, Eosinophils % ( Manual) 0, Basophils % (Manual) 0, Band Neutrophils 0, Platelet Estimate DecreasedL, Platelet Morphology Normal, Anisocytosis 1+, Sodium Level 135L, Potassium Level 5.0, Chloride Level 106, Carbon Dioxide Level 25, Anion Gap 4L, Blood Urea Nitrogen 36H, Creatinine 1.5H, Estimat Glomerular Filtration Rate > 60, Glucose Level 95, Calcium Level 6.3L Height (Feet): 6 Height (Inches): 0.00 Weight (Pounds): 147 Objective Physical Exam: Vitals: reviewed General Appearance: NAD HEENT: normocephalic, atraumatic Neck: non-tender, normal alignment Respiratory/Chest: normal breath sounds bilaterally Cardiovascular/Chest: normal peripheral pulses, normal rate Abdomen: normal bowel sounds, soft, not Extremities: normal range of motion Jean Bingham MD June 21, 2018 11:49
[2018-06-21 12:00] VITALS: BP 91/58
--- NOTE | 2018-06-21 13:50 | NUR ---
NURSE NOTES: Called patient's mother, Debbie, and clarified she already brought prescriptions home.
--- NOTE | 2018-06-21 15:10 | NUR ---
NURSE NOTES: Patient discharged to home per GENET Almeida. 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 Patient taking ambulance in stable condition. Patient discharged with all belonging, clarified with Mother that she has prescription. Family member made aware.
--- NOTE | 2018-06-21 15:25 | Internal Med Progress Note ---
Subjective Date of Service: June 21, 2018 Physician Name Adam Padron Attending Physician Alberto Gtz MD Current Medications Medications (Trade) Dose Ordered Sig/Yessica Route PRN Reason Start Time Stop Time Status Last Admin Dose Admin Acetaminophen (Tylenol) 650 mg Q4H PRN ORAL fever 06/12/18 09:30 07/12/18 09:29 06/20/18 16:02 Carvedilol (Coreg) 3.125 mg EVERY 12 HOURS ORAL 06/18/18 21:00 07/18/18 20:59 06/19/18 08:39 Dextrose (Dextrose 50%) 25 ml Q30M PRN IV Hypoglycemia 06/12/18 09:30 07/12/18 09:29 Dextrose (Dextrose 50%) 50 ml Q30M PRN IV Hypoglycemia 06/12/18 09:30 07/12/18 09:29 Diphenhydramine HCl (Benadryl) 25 mg Q6H PRN ORAL Itching/Pruritis 06/12/18 09:30 07/12/18 09:29 06/20/18 11:30 Dronabinol (Marinol) 2.5 mg TID ORAL 06/15/18 13:00 07/13/18 17:59 06/21/18 12:46 Epoetin Jeferson (Epoetin Jeferson-EPBX(NON ESRD)) 10,000 unit FRI-FRI-FRI SUBQ 06/19/18 21:00 07/19/18 20:59 06/19/18 22:22 Folic Acid (Folate) 5 mg DAILY ORAL 06/15/18 11:15 07/15/18 11:14 06/20/18 09:52 Lactobacillus Acidophilus (Culturelle) 1 tab THREE TIMES A DAY ORAL 06/14/18 18:00 07/14/18 17:59 06/21/18 12:46 Lorazepam (Ativan 2mg/ml 1ml) 1 mg Q4H PRN IV For Anxiety 06/18/18 11:00 06/25/18 10:59 Mirtazapine (Remeron) 15 mg BEDTIME ORAL 06/12/18 21:00 07/12/18 20:59 06/20/18 21:45 Morphine Sulfate (Morphine Sulfate) 4 mg Q4H PRN IVP Severe Pain (Pain Scale 7-10) 06/18/18 11:00 06/25/18 10:59 06/21/18 12:47 Nitroglycerin (Ntg) 0.4 mg Q5M X 3 DOSES PRN SL Prn Chest Pain 06/12/18 09:30 07/12/18 09:29 Ondansetron HCl (Zofran) 4 mg Q6H PRN IVP Nausea & Vomiting 06/12/18 09:30 07/12/18 09:29 06/15/18 09:32 Pantoprazole (Protonix) 40 mg EVERY 12 HOURS ORAL 06/14/18 21:00 07/14/18 20:59 06/20/18 21:45 Patient Own Medication (Patient's Own Med) 1 ea DAILY ORAL 06/13/18 15:30 07/13/18 15:29 06/20/18 09:51 Patient Own Medication (Patient's Own Med) 1 ea DAILY ORAL 06/13/18 15:30 07/13/18 15:29 06/20/18 09:51 Promethazine HCl (Phenergan) 25 mg Q6H PRN IM REFRACTORY N/V 06/12/18 09:30 07/12/18 09:29 Temazepam (Restoril) 15 mg HSPRN PRN ORAL Insomnia 06/18/18 21:00 06/25/18 20:59 Tigecycline 50 mg/ Sodium Chloride 110 ml @ 220 mls/hr EVERY 12 HOURS IVPB 06/17/18 09:00 06/24/18 08:59 06/21/18 08:44 Trimethoprim/ Sulfamethoxazole (Bactrim Single Strength) 1 tab DAILY ORAL 06/17/18 09:00 06/24/18 08:59 06/20/18 09:52 Vancomycin HCl (Firvanq) 125 mg FOUR TIMES A DAY ORAL 06/13/18 09:00 06/25/18 08:59 06/21/18 12:46 Allergies: Coded Allergies: No Known Allergies (Unverified , 10/21/17) ROS Limited/Unobtainable: No Constitutional: Reports: no symptoms HEENT: Reports: no symptoms Cardiovascular: Reports: no symptoms Respiratory: Reports: no symptoms Gastrointestinal/Abdominal: Reports: no symptoms Genitourinary: Reports: no symptoms Neurologic/Psychiatric: Reports: no symptoms Subjective 37 YO M with history of HIV, kaposi's Sarcoma and Castleman Dis admitted with nausea, vomiting and diarrhea. Now C. Diff. Cover for [facility] Med-Dr Gtz. Afebrile overnight Objective Last Vital Signs Date Time Temp Pulse Resp B/P (MAP) Pulse Ox O2 Delivery O2 Flow Rate FiO2 06/21/18 12:00 107 06/21/18 12:00 98.0 18 91/58 (69) 99 06/21/18 09:00 Room Air Laboratory Tests Test 06/20/18 19:55 06/21/18 06:45 White Blood Count 7.0 K/UL (4.8-10.8) 6.1 K/UL (4.8-10.8) Red Blood Count 3.01 M/UL (4.70-6.10) L 3.06 M/UL (4.70-6.10) L Hemoglobin 8.0 G/DL (14.2-18.0) L 8.2 G/DL (14.2-18.0) L Hematocrit 23.6 % (42.0-52.0) L 24.8 % (42.0-52.0) L Mean Corpuscular Volume 79 FL (80-99) L 81 FL (80-99) Mean Corpuscular Hemoglobin 26.7 PG (27.0-31.0) L 26.8 PG (27.0-31.0) L Mean Corpuscular Hemoglobin Concent 34.0 G/DL (32.0-36.0) 33.1 G/DL (32.0-36.0) Red Cell Distribution Width 17.6 % (11.6-14.8) H 18.5 % (11.6-14.8) H Platelet Count 24 K/UL (150-450) L 23 K/UL (150-450) L Mean Platelet Volume 7.0 FL (6.5-10.1) 7.0 FL (6.5-10.1) Neutrophils (%) (Auto) % (45.0-75.0) % (45.0-75.0) Lymphocytes (%) (Auto) % (20.0-45.0) % (20.0-45.0) Monocytes (%) (Auto) % (1.0-10.0) % (1.0-10.0) Eosinophils (%) (Auto) % (0.0-3.0) % (0.0-3.0) Basophils (%) (Auto) % (0.0-2.0) % (0.0-2.0) Differential Total Cells Counted 100 100 Neutrophils % (Manual) 69 % (45-75) 69 % (45-75) Lymphocytes % (Manual) 26 % (20-45) 27 % (20-45) Monocytes % (Manual) 5 % (1-10) 4 % (1-10) Eosinophils % (Manual) 0 % (0-3) 0 % (0-3) Basophils % (Manual) 0 % (0-2) 0 % (0-2) Band Neutrophils 0 % (0-8) 0 % (0-8) Platelet Estimate Decreased L Decreased L Platelet Morphology Normal Normal Hypochromasia 1+ Anisocytosis 1+ 1+ Sodium Level 135 MMOL/L (136-145) L Potassium Level 5.0 MMOL/L (3.5-5.1) Chloride Level 106 MMOL/L (98-107) Carbon Dioxide Level 25 MMOL/L (21-32) Anion Gap 4 mmol/L (5-15) L Blood Urea Nitrogen 36 mg/dL (7-18) H Creatinine 1.5 MG/DL (0.55-1.30) H Estimat Glomerular Filtration Rate > 60 mL/min (>60) Glucose Level 95 MG/DL (74-106) Calcium Level 6.3 MG/DL (8.5-10.1) L Intake and Output 06/20/18 06/21/18 19:00 07:00 Intake Total 600 ml Output Total 1400 ml Balance -800 ml Intake Oral 600 ml Output Urine Total 1400 ml # Bowel Movements 1 3 Objective PHYSICAL EXAMINATION: GENERAL: The patient is awake, alert, oriented, chronic ill-appearing, and cachectic. HEAD AND NECK: Pupils reactive to light. Anicteric. Has a strabismus with disconjugate gait. Neck was supple. No JVD. LUNGS: Good air entry. No wheezing or rales. HEART: Tachycardia; Reveals S1, S2. Regular rhythm. No gallops. ABDOMEN: Soft. Mildly distended. No rebound tenderness. No fluid shift. EXTREMITIES: No cyanosis, clubbing, or edema. Muscle atrophy with discoloration of the bilateral lower extremity with hyperpigmentation, and rashes of bilateral lower extremity was noted. NEUROLOGIC: APPRAISER PERSONAL PROPERTY II through XII grossly intact. Motor is 5/5 in all extremities. Gait was not assessed due to the patient's status. Assessment/Plan Assessment/Plan ASSESSMENT: 1. Intractable nausea and vomiting. 2. Severe protein-calorie malnutrition. 3. Hyponatremia. 4. History of HIV/AIDS. 5. Kaposi sarcoma. 6. Castleman syndrome. 7. History of hepatitis B and C positive. 8. Anemia of chronic disease. 9. Thrombocytopenia. 10. Tachycardia 11. Clostridium difficile 12. Anemia 13. Fever PLAN: 1. Admit the patient to monitored unit. 2. We will follow up with Dr. Mobley from Infectious Disease consultation and Dr. Hester from Pulmonary Critical Care. 3. Monitor laboratory. 4. IV hydration. 5. Code status is Full Code. 6. Follow up with broad-spectrum antibiotic with Zosyn. 7. Monitor culture. 8. Anti-emetic medication with Zofran. 9. Resume home medication. 10. ?dehydration due to nausea and diarrhea?-cardiology consult-Dr Howe 11. Oral vanco per ID 12. Patient refusing bone marrow vs lymph node biopsy for castleman's dis-see onc note 13. S/P Transfusion 4 units PRBC total-see hematology note. 14. Tegecyline D#6 per ID Adam Padron MD June 21, 2018 15:25
--- NOTE | 2018-06-21 15:50 | Nephrology Progress Note ---
Assessment/Plan Problem List: (1) Hyponatremia (2) Kaposi disease (3) HIV disease (4) Anemia (5) Hepatitis B (6) Hepatitis C (7) C. difficile colitis (8) Malnutrition Assessment HypoNatremia , etiology ? will comment after urine studies and blood test results available Intractable nausea and vomiting. Severe protein-calorie malnutrition. History of HIV/AIDS. Kaposi sarcoma. Sepsis Anemia, PanCytopenia C diff Hep B and Hep C Plan transfuse- Per ID- add coreg add epo trial of 3% saline and Lasix as needed continue per consultants Per orders Subjective ROS Limited/Unobtainable: No Constitutional: Reports: malaise Objective Objective Last 24 Hour Vital Signs Date Time Temp Pulse Resp B/P (MAP) Pulse Ox O2 Delivery O2 Flow Rate FiO2 06/21/18 12:00 107 06/21/18 12:00 98.0 107 18 91/58 (69) 99 06/21/18 09:00 Room Air 06/21/18 08:57 113 101/67 06/21/18 08:00 113 06/21/18 08:00 98.6 113 20 101/67 (78) 100 06/21/18 04:00 98.9 123 20 100/60 (73) 98 06/21/18 04:00 122 06/21/18 00:00 98.4 108 20 104/65 (78) 98 06/21/18 00:00 114 06/20/18 21:00 Room Air 06/20/18 21:00 127 98/61 06/20/18 20:28 95 06/20/18 20:00 99.9 127 17 98/61 (73) 80 06/20/18 20:00 124 06/20/18 16:32 98.4 06/20/18 16:00 100.5 124 20 100/62 (75) 98 Intake and Output 06/20/18 06/21/18 19:00 07:00 Intake Total 600 ml Output Total 1400 ml Balance -800 ml Intake Oral 600 ml Output Urine Total 1400 ml # Bowel Movements 1 3 Laboratory Tests 06/20/18 19:55: White Blood Count 7.0, Red Blood Count 3.01L, Hemoglobin 8.0L, Hematocrit 23.6L , Mean Corpuscular Volume 79L, Mean Corpuscular Hemoglobin 26.7L, Mean Corpuscular Hemoglobin Concent 34.0, Red Cell Distribution Width 17.6H, Platelet Count 24L, Mean Platelet Volume 7.0, Neutrophils (%) (Auto) , Lymphocytes (%) (Auto) , Monocytes (%) (Auto) , Eosinophils (%) (Auto) , Basophils (%) (Auto) , Differential Total Cells Counted 100, Neutrophils % ( Manual) 69, Lymphocytes % (Manual) 26, Monocytes % (Manual) 5, Eosinophils % ( Manual) 0, Basophils % (Manual) 0, Band Neutrophils 0, Platelet Estimate DecreasedL, Platelet Morphology Normal, Hypochromasia 1+, Anisocytosis 1+ 06/21/18 06:45: White Blood Count 6.1, Red Blood Count 3.06L, Hemoglobin 8.2L, Hematocrit 24.8L , Mean Corpuscular Volume 81, Mean Corpuscular Hemoglobin 26.8L, Mean Corpuscular Hemoglobin Concent 33.1, Red Cell Distribution Width 18.5H, Platelet Count 23L, Mean Platelet Volume 7.0, Neutrophils (%) (Auto) , Lymphocytes (%) (Auto) , Monocytes (%) (Auto) , Eosinophils (%) (Auto) , Basophils (%) (Auto) , Differential Total Cells Counted 100, Neutrophils % ( Manual) 69, Lymphocytes % (Manual) 27, Monocytes % (Manual) 4, Eosinophils % ( Manual) 0, Basophils % (Manual) 0, Band Neutrophils 0, Platelet Estimate DecreasedL, Platelet Morphology Normal, Anisocytosis 1+, Sodium Level 135L, Potassium Level 5.0, Chloride Level 106, Carbon Dioxide Level 25, Anion Gap 4L, Blood Urea Nitrogen 36H, Creatinine 1.5H, Estimat Glomerular Filtration Rate > 60, Glucose Level 95, Calcium Level 6.3L Height (Feet): 6 Height (Inches): 0.00 Weight (Pounds): 147 General Appearance: no apparent distress Objective no change Adam Aguiar MD June 21, 2018 15:50
--- NOTE | 2018-06-21 16:56 | Cardiac Electrophysiology PN ---
Assessment/Plan Assessment/Plan 1. Sinus tachycardia, due to sepsis, anemia and pain. Ruled out for ME. EKG showed no acute ischemic changes. No evidence of atrial fibrillation or supraventricular tachycardia. EF 75%. S/P transfusion. On broad spectrum iv antibiotics Got PRBC 06/19/18 again 2. Hypertension. Stable off on antihypertensive agents. 3. 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 5. History of pancreatitis and hepatitis B and C positive. 6. Severe anemia. Hb 9 to 6.4. S/P transfusion 7. Hyponatremia, s/p 3% saline. Na 133 DW RN Subjective Subjective No new events. DC in progress Objective Last 24 Hour Vital Signs Date Time Temp Pulse Resp B/P (MAP) Pulse Ox O2 Delivery O2 Flow Rate FiO2 06/21/18 12:00 107 06/21/18 12:00 98.0 107 18 91/58 (69) 99 06/21/18 09:00 Room Air 06/21/18 08:57 113 101/67 06/21/18 08:00 113 06/21/18 08:00 98.6 113 20 101/67 (78) 100 06/21/18 04:00 98.9 123 20 100/60 (73) 98 06/21/18 04:00 122 06/21/18 00:00 98.4 108 20 104/65 (78) 98 06/21/18 00:00 114 06/20/18 21:00 Room Air 06/20/18 21:00 127 98/61 06/20/18 20:28 95 06/20/18 20:00 99.9 127 17 98/61 (73) 80 06/20/18 20:00 124 Intake and Output 06/20/18 06/21/18 19:00 07:00 Intake Total 600 ml Output Total 1400 ml Balance -800 ml Intake Oral 600 ml Output Urine Total 1400 ml # Bowel Movements 1 3 Laboratory Tests Test 06/20/18 19:55 06/21/18 06:45 White Blood Count 7.0 K/UL (4.8-10.8) 6.1 K/UL (4.8-10.8) Red Blood Count 3.01 M/UL (4.70-6.10) L 3.06 M/UL (4.70-6.10) L Hemoglobin 8.0 G/DL (14.2-18.0) L 8.2 G/DL (14.2-18.0) L Hematocrit 23.6 % (42.0-52.0) L 24.8 % (42.0-52.0) L Mean Corpuscular Volume 79 FL (80-99) L 81 FL (80-99) Mean Corpuscular Hemoglobin 26.7 PG (27.0-31.0) L 26.8 PG (27.0-31.0) L Mean Corpuscular Hemoglobin Concent 34.0 G/DL (32.0-36.0) 33.1 G/DL (32.0-36.0) Red Cell Distribution Width 17.6 % (11.6-14.8) H 18.5 % (11.6-14.8) H Platelet Count 24 K/UL (150-450) L 23 K/UL (150-450) L Mean Platelet Volume 7.0 FL (6.5-10.1) 7.0 FL (6.5-10.1) Neutrophils (%) (Auto) % (45.0-75.0) % (45.0-75.0) Lymphocytes (%) (Auto) % (20.0-45.0) % (20.0-45.0) Monocytes (%) (Auto) % (1.0-10.0) % (1.0-10.0) Eosinophils (%) (Auto) % (0.0-3.0) % (0.0-3.0) Basophils (%) (Auto) % (0.0-2.0) % (0.0-2.0) Differential Total Cells Counted 100 100 Neutrophils % (Manual) 69 % (45-75) 69 % (45-75) Lymphocytes % (Manual) 26 % (20-45) 27 % (20-45) Monocytes % (Manual) 5 % (1-10) 4 % (1-10) Eosinophils % (Manual) 0 % (0-3) 0 % (0-3) Basophils % (Manual) 0 % (0-2) 0 % (0-2) Band Neutrophils 0 % (0-8) 0 % (0-8) Platelet Estimate Decreased L Decreased L Platelet Morphology Normal Normal Hypochromasia 1+ Anisocytosis 1+ 1+ Sodium Level 135 MMOL/L (136-145) L Potassium Level 5.0 MMOL/L (3.5-5.1) Chloride Level 106 MMOL/L (98-107) Carbon Dioxide Level 25 MMOL/L (21-32) Anion Gap 4 mmol/L (5-15) L Blood Urea Nitrogen 36 mg/dL (7-18) H Creatinine 1.5 MG/DL (0.55-1.30) H Estimat Glomerular Filtration Rate > 60 mL/min (>60) Glucose Level 95 MG/DL (74-106) Calcium Level 6.3 MG/DL (8.5-10.1) L Objective HEAD AND NECK: no JVD. LUNGS: Decreased breath sounds. CARDIOVASCULAR: Tachycardic, S1, S2 with no gallop. ABDOMEN: Soft. EXTREMITIES: Chronic skin changes and edema. Toney Howe MD June 21, 2018 16:56
--- NOTE | 2018-06-23 09:10 | Discharge Summary ---
Discharge Summary Discharge Summary _ DATE OF ADMISSION: 06/12/2018 DATE OF DISCHARGE: 06/21/2018 DISCHARGED BY: Dr. Gtz REASON FOR ADMISSION: 37 years old male with past medical history of HIV/AIDS, Castleman syndrome, Kaposi's sarcoma, hepatitis B and C+, pancreatitis, questionable noncompliance with antiretroviral therapy, s/p chemotherapy in April 2017 , presented to emergency department with generalized weakness, body aches ,dyspnea on exertion , dizziness , lightheadedness , and multiply episode of nonbloody emesis. Shortly after initial evaluation in emergency department , patient was admitted in the hospital with intractable nausea and vomiting, dehydration, and severe protein calorie malnutrition. CONSULTANTS: batch freezer Dr. Vega pulmonary Dr. Hester ID specialist Dr. Mendoza GI specialist Dr. Grande it recruiter Dr. Aguiar 21 dealer/oncologist Dr. Bingham [facility]SE: Patient admitted to monitored unit. ID and pulmonology consult were requested. Patient started on IV hydration and empiric antibiotics. Symptomatic treatment with antiemetic provided as needed. Home medication were resumed. Antibiotic provided as per ID specialist recommendation. Stool was positive for C. difficile. Patient was on oral Vancomycin and Tygacil empirically , probably hospital- acquired infection in the setting of C. difficile. Patient also was on lactobacilli. Diarrhea improved. Patient was on Bactrim for PCP prophylaxis. Blood cultures were negative. RPR nonreactive and GC /CL negative.. Per ID specialist patient had multisystemic symptoms, including weakness, cough, vomiting , possible Castleman recurrence and probable sepsis. Previous fungal work-up was negative. Patient had no leukocytosis . Urinalysis was negative. Chest x-ray demonstrated questionable infiltrate . Abdominal ultrasound showed cholelithiasis with minimal pericholecystic fluid. No hydronephrosis. No bile duct dilatation. Supplemental oxygen provided as needed to keep pulse oximetry above 92% . Pulmonary toilet provided as needed. Pulse oximetry was stable on room air. Patient with consistent diffuse lymphadenopathy . Patient undergone left axillary lymph node biopsy with the pathology for multicentric Castleman disease. Patient also had a questionable compliance with antiretroviral therapy . Patient was diagnosed in 1999 . Patient was on Truvada and dolutegravir. HAART therapy continued in the hospital. No history of resistance. Last CD4 64 in April 2018 - Patient reported that he had been above 200 , but CD4 count came down with the chemotherapy. Chemotherapy ended in June 2017. Last PET scan in July 2017 showed stable, not worsening lymphadenopathy. In regards to hepatitis C viral load was nondetectable. Patient had evidence of chronic hepatitis B with a viral load less than 15 Infectious disease doctor recommended complete the course of oral vancomycin and continue with Bactrim for PCP prophylaxis. Continue with antiretroviral viral therapy. Take Away Man discussed with the patient the reason to get another biopsy of bulky lymph node versus bone marrow biopsy, however patient at this time declined any biopsy. Per 21 dealer, patient needs close follow-up with 21 dealer as outpatient for the biopsy and further recommendation after procedure. To reiterate, at this time patient declined biopsy. Hemoglobin and hematocrit were closely monitored with goal to keep hemoglobin above 7. Patient undergone transfusion of 4 units of packed red blood cells while in the hospital. Hemoglobin 8.2, hematocrit 28.8 prior to discharge. Patient also noted to have a folic acid deficiency and started on folic acid supplement. Platelet count was closely monitor and trending down, prior to discharge 23. Furnace Charger followed. Hyponatremia work-up was completed. Patient received trial of 3% saline and Lasix Lasix. Sodium stabilized. Nephrotoxins were avoided as possible. Protein supplements provided as per registered dietitian recommendation to improve nutritional status. Patient was continue on Marinol. Antiemetic were on board as needed. Patient was able to tolerate diet in small amount. Monument Letterer followed. Patient initially revealed demonstrated sinus tachycardia, likely due to sepsis , anemia ,and pain. Patient was ruled out for acute myocardial infarction by serial negative troponin and no acute ischemic changes on EKG. Echocardiogram revealed preserved ejection fraction. Supportive care provided. Pain management was addressed. Patient clinically stabilized and was ready for discharge home. Outpatient follow-up with primary care provider ,21 dealer ,and HIV provider. Compliance with medication regimen was stressed. FINAL DIAGNOSES: Sepsis (with multisystemic symptoms, possible Castleman recurrence) Severe protein calorie malnutrition Hyponatremia-resolved HIV/AIDS ( last CD4- 64 on 05/05) Kaposi's sarcoma/ Castleman syndrome Acute tubular necrosis/acute kidney injury on chronic kidney disease C dif colitis Anemia of chronic disease , requiring multiply transfusion Thrombocytopenia Anemia of folic acid deficiency Chronic hepatitis B Hepatitis C Hyponatremia Diffuse lymphadenopathy C. difficile colitis Sinus tachycardia DISCHARGE MEDICATIONS: See Medication Reconciliation list. DISCHARGE INSTRUCTIONS: Patient was discharged home. Follow up with primary care provider in one week. Follow-up with 21 dealer/oncologist and HIV provider. Gerri Almeida NP June 23, 2018 09:10
== END 2018-06-21 17:07 | disposition home or self-care (01) | DRG 974 ==
LOC: EDBD 07:09 → EMR 07:30 → 2E 07:45 → EDBEDREQ 11:10 → 2E 15:34 → 3E 06-13 17:52 → 2E 06-13 17:53
PROC: 30233N1 Transfusion of Nonautologous Red Blood Cells into Peripheral Vein, Percutaneous Approach (ICD-10-PCS; principal; 2018-06-15)
DX: A41.9 Sepsis, unspecified organism (principal); N17.0 Acute kidney failure with tubular necrosis; B20 Human immunodeficiency virus [HIV] disease; E43 Unspecified severe protein-calorie malnutrition; C46.9 Kaposi's sarcoma, unspecified; D47.Z2 Castleman disease; E87.1 Hypo-osmolality and hyponatremia; B18.1 Chronic viral hepatitis B without delta-agent; A04.72 Enterocolitis due to Clostridium difficile, not specified as recurrent; D61.818 Other pancytopenia; R65.20 Severe sepsis without septic shock; E86.0 Dehydration; D63.8 Anemia in other chronic diseases classified elsewhere; G43.A0 Cyclical vomiting, in migraine, not intractable; Z86.19 Personal history of other infectious and parasitic diseases; R59.1 Generalized enlarged lymph nodes; K80.20 Calculus of gallbladder without cholecystitis without obstruction; Z86.718 Personal history of other venous thrombosis and embolism
CPT/HCPCS: 36415; 71045; 71046; 76700; 80048; 80053; 80061; 80076; 81003; 82140; 82150; 82248; 82270; 82533; 82550; 82553; 82607; 82728; 82746; 82977; 83036; 83540; 83550; 83605; 83690; 83735; 83880; 83930; 84100; 84403; 84443; 84484; 84550; 85007; 85025; 85610; 85730; 86140; 86592; 86710; 86850; 86900; 86901; 86920; 87040; 87324; 87491; 87516; 87535; 87536; 87590; 93005; 93306; 96361; 96365; 96368; 99285; J2405

== ENCOUNTER 2018-07-12 21:30 | Inpatient (IN) | payer MEDICARE, OTHER ==
[~2018-07-12] VITALS: Ht 182.9 cm; Wt 64.6 kg
[~2018-07-12 21:30] MED LIST changes: +TRUVADA1 TAB ORAL; +VANCOCIN250 MG ORAL
[2018-07-12] MEDS ORDERED: Miralax 17gm pkt ORAL PRN (21:45)
[2018-07-12] MEDS ORDERED: Phytonadione 10 MG in D5W 55 ML IVPB ONE (21:45)
[2018-07-12] MEDS ORDERED: Nitroglycerin Subl 0.4mg tab SL PRN (21:45)
--- NOTE | 2018-07-12 21:45 | NUR ---
ED Nurse Note: RECIEVED PT BIBA FROM HOME, HERE WITH C/O SEVERE ABDOMINAL PAIN WITH DIARRHEA AND NAUSEA, PT ALSO C/O PAIN IN BILAT LEGS FROM CANCER, PT IS AWAKE, ALERT AND ORIENTED X 4, NO CP, NO SOB, PT IMMEDIATELY ASSISTED TO GOWNING AND CARDIAC MONITORING, PT SKIN FEELS WARM, PT ALSO STATES JUST RELEASED FROM HOSPITAL ABOUT A WEEK AGO, WILL CONTINUE TO CLOSELY MONITOR AND REUSME CARE ORDERED.
--- NOTE | 2018-07-12 21:51 | Emergency Room Report ---
History of Present Illness General Chief Complaint: Nausea, Vomiting, and Diarrhea Source: Patient, Medical Record, EMS Present Illness HPI This is an unfortunate 37-year-old male with a history of AIDS with Castleman Syndrome. CD4 count is low. He was just admitted here and was discharged 3 weeks ago for abdominal pain, diarrhea, C. difficile, sepsis. He presents with chief complaint of abdominal pain with nausea vomiting and diarrhea. Vomiting' s for last 3 days. Diarrhea is profuse and ongoing for a week. He said his melanotic. Subjective fever and felt very weak. Unable to keep anything down except for little bit of fluid. Denies trauma. Similar symptom in the past. Pain is sharp and crampy. 8 out of 10. No radiation. Pain is diffuse. Allergies: Coded Allergies: No Known Allergies (Unverified , 10/21/17) Patient History Past Medical History: see triage record, old chart reviewed, HIV Past Surgical History: other Pertinent Family History: none Social History: Denies: smoking Immunizations: other Reviewed Nursing Documentation: PMH: Agreed; PSxH: Agreed Nursing Documentation-PMH Hx Hypertension: Yes Hx Cancer: No Hx Gastrointestinal Problems: Yes - N/V Hx Neurological Problems: No Review of Systems Constitutional: Reports: fever, malaise, weakness Eye: Denies: eye pain, blurred vision ENT: Denies: ear pain, nose congestion, throat swelling Respiratory: Denies: cough, shortness of breath Cardiovascular: Denies: chest pain, palpitations Gastrointestinal: Reports: abdominal pain, diarrhea, nausea, vomiting Musculoskeletal: Denies: back pain, joint pain Skin: Denies: rash Neurological: Denies: headache, numbness Endocrine: Denies: increased thirst, increased urine Hematologic/Lymphatic: Denies: easy bruising All Other Systems: negative except mentioned in HPI Physical Exam Vital Signs Date Time Temp Pulse Resp B/P (MAP) Pulse Ox O2 Delivery O2 Flow Rate FiO2 07/12/18 21:25 99.0 150 19 93/74 (80) 99 Room Air vitals with tachycardia Sp02 EP Interpretation: reviewed, normal General Appearance: alert, mild distress, cachetic, Chronically Ill Head: normocephalic, atraumatic Eyes: bilateral eye PERRL, bilateral eye EOMI ENT: hearing grossly normal, normal pharynx Neck: full range of motion, supple, no meningismus Respiratory: chest non-tender, normal breath sounds, accessory muscle use, rhonchi Cardiovascular #1: regular rate, rhythm, no murmur, tachycardia Gastrointestinal: no mass, no organomegaly, no bruit, non-distended, abnormal bowel sounds - Hyperactive, gurgling, tenderness - Diffuse Musculoskeletal: back normal, gait/station normal, normal range of motion Psychiatric: mood/affect normal Skin: warm/dry Procedures Critical Care Time Critical Care Time Critical care is mandated in this patient who presented with sepsis from pneumonia. Patient require my urgent intervention to attenuate the risks of metabolic collapse which may lead to cardiovascular collapse and . Critical care time is 35 minutes excluding any reportable procedure. Critical care time included evaluation, multiple reevaluation, looking at old charts, interpreting laboratory and diagnostic data, discussing case with patient and family and consultants, and charting. Medical Decision Making Diagnostic Impression: Primary Impression: Sepsis Qualified Codes: A41.9 - Sepsis, unspecified organism Additional Impressions: Aspiration pneumonia Qualified Codes: J69.0 - Pneumonitis due to inhalation of food and vomit Nausea, vomiting, and diarrhea Healthcare-associated pneumonia Castleman disease Anemia Qualified Codes: D64.9 - Anemia, unspecified HIV disease ER Course Patient presents with severe dehydration and sepsis. He has been nausea vomiting and diarrhea. He has a right upper lobe infiltrate. This is probably secondary to aspiration pneumonia. Antibiotics given. He has a recent history of C. difficile. With his diarrhea, possible we current. I gave him Flagyl orally. Patient improved with IV fluids and pain medication. I discussed the case with Dr. Hester who will be admitting for Dr. Gtz. Sepsis reevaluation: Vitals signs: Please see nursing note. Heart rate improved Mental status: Alert oriented x 4 Cardiovascular: Strong pulse. Heart rate improved. Lungs: Good air movement Abdomen: Soft Extremity: No edema Skin: No mottling Lab Results Impression labs with anemia EKG Diagnostic Results Rate: tachycardiac Rhythm: NSR ST Segments: no acute changes Rhythm Strip Diag. Results EP Interpretation: yes Rate: 110 Rhythm: NSR, no PVC's, no ectopy Chest X-Ray Diagnostic Results Chest X-Ray Diagnostic Results : Chest X-Ray Ordered: Yes # of Views/Limited/Complete: 1 View Indication: Shortness of Breath EP Interpretation: Yes Interpretation: no effusion, no pneumothorax, other - Right upper lobe infiltrate Impression: Other - Right upper lobe infiltrate Electronically Signed by: Shaw Fall MD Last Vital Signs Date Time Temp Pulse Resp B/P (MAP) Pulse Ox O2 Delivery O2 Flow Rate FiO2 07/12/18 21:25 99.0 150 19 93/74 (80) 99 Room Air Status: improved Disposition: ADMITTED INPATIENT Condition: Serious Shaw Fall MD July 12, 2018 21:51
[2018-07-12] MEDS ORDERED: Morphine Sulfate 4mg/ml Inj (IV USE ONLY) IVP ONE ×2 (22:00→23:00)
[2018-07-12] MEDS ORDERED: metroNIDAZOLE 500mg tab ORAL ONE (22:30)
[2018-07-12] MEDS ORDERED: Vancomycin 1 GM in NS 275 ML IVPB ONE (22:30)
[2018-07-12] MEDS ORDERED: Cefepime HCl 1 GM in D5W 55 ML IVPB ONE (22:30)
[2018-07-12 22:32] LABS: HEMATOCRIT 25.7 % (42.0-52.0); HEMOGLOBIN 8.5 G/DL (14.2-18.0); MEAN CORPUSCULAR VOLUME 80 FL (80-99); PLATELET COUNT 54 K/UL (150-450); RED BLOOD COUNT 3.21 M/UL (4.70-6.10); RED CELL DISTRIBUTION WIDTH 19.7 % (11.6-14.8); WHITE BLOOD COUNT 8.8 K/UL (4.8-10.8)
[2018-07-12 22:42] LABS: INR 1.3 (0.9-1.1)
[2018-07-12 22:52] LABS: ANION GAP 7 mmol/L (5-15); BLOOD UREA NITROGEN 20 mg/dL (7-18); CALCIUM 6.9 MG/DL (8.5-10.1); CARBON DIOXIDE 28 MMOL/L (21-32); CHLORIDE 100 MMOL/L (98-107); CREATININE 1.2 MG/DL (0.55-1.30); POTASSIUM 3.6 MMOL/L (3.5-5.1); SODIUM 134 MMOL/L (136-145)
[2018-07-12 23:00] VITALS: BP 103/55
[2018-07-12 23:05] LABS: ALANINE AMINOTRANSFERASE 17 U/L (12-78); ALBUMIN 0.8 G/DL (3.4-5.0); ALBUMIN/GLOBULIN RATIO 0.2 (1.0-2.7); ALKALINE PHOSPHATASE 72 U/L (46-116); ASPARTATE AMINO TRANSFERASE 35 U/L (15-37); BILIRUBIN,TOTAL 0.7 MG/DL (0.2-1.0); CKMB < 0.5 NG/ML (0.0-3.6); CREATINE KINASE 8 U/L (26-308)
[2018-07-12] MEDS ORDERED: Acetaminophen 500mg (ES) tab ORAL ONE (23:15)
--- NOTE | 2018-07-12 23:30 | NUR ---
ED Nurse Note: PT CONTINUES TO REST IN BED, MEDICATED ORDERD, IV FLUIDS GIVEN PER PROTOCOL, PT ALSO MEDICATED WITH MORPHINE AND STATES MEDS SLIGHTLY EFFECTIVE, PT HAS DIARRHEA, GIVEN COMPLETE BATH AND LINEN CHANGE, STOOL SAMPLE SENT, PT NOTED WITH SMALL, PINPOINT PRESSURE AREA ON SACRYL/COCCYX AREA, PT BILAT LEGS ARE VERY SCALY AND DARK COLORED, MD IS AWARE OF ALL WOUNDS, PT REMAINS ON MONITORING, WILL CONITNUE TO CLOSELY MONITOR AND PREPARE FOR ADMISSION.
[2018-07-13] VITALS (7 sets, daily range): BP systolic 91–113; BP diastolic 50–68
--- NOTE | 2018-07-13 01:10 | NUR ---
ED Nurse Note: PT CONTINUES TO REST QUIETLY IN BED, AWAKE AND ALERT, PT MEDICATED FOR PAIN AGAIN, MEDS EFFCTIVE, PT IS SLEEPING, REMAINS ON CARDIAC MONITORIG, HEART RATE REMAINS INCREASED, MD AWARE, NO CHEST PAIN, PT HAS ROOM FOR ADMISSION, REPORT CALLED TO TRES CAMPOS ON UNIT, BELONGINGS LIST COMPLETED AND SIGNED, PT IV SITE PATENT, ALL ANTIBIOTICS COMPLETED AND NO S/S OF ADVERSE REACTION, PT WILL BE TAKEN TO FLOOR UNIT VIA GURNEY AND ACLS PROTOCOLS WITH RN AND ER-TECH.
[2018-07-13 02:02] LABS: APPEARANCE,URINE CLEAR; COLOR,URINE PALE YELLOW
[2018-07-13 02:03] LABS: BILIRUBIN, URINE NEGATIVE (NEGATIVE); GLUCOSE, URINE (UA) NEGATIVE (NEGATIVE); KETONES,URINE NEGATIVE (NEGATIVE); LEUKOCYTE ESTERASE ,URINE NEGATIVE (NEGATIVE); NITRITE,URINE NEGATIVE (NEGATIVE); PH,URINE 5 (4.5-8.0); PROTEIN,URINE 1+ (NEGATIVE); UROBILINOGEN,URINE NORMAL MG/DL (0.0-1.0)
[2018-07-13] MEDS ORDERED: Phytonadione 10 mg/mL 1ml amp ONE (02:28)
[2018-07-13] MEDS: D5NS 1,000 ML IV SCH ×4 (02:34→20:57)
--- NOTE | 2018-07-13 02:35 | NUR ---
NURSE NOTES: Pt received from TRES Chavez alert and oriented x4 with no acute s/s of distress noted. IV site on R ac 18, asymptomatic, intact and patent. No wounds noted upon admission, pt has noted dry scaling on bilateral lower extremities. Per pt, he does not take flu or PNA vaccinations. Belongings all with patient upon admission - signed with transferring RN. library monitor on - ST 130s. Bed in lowest position, bed alarm on. Belongings and call light within reach. RN asked pt if someone could be able to bring in home meds - Tivicay and Truvada for him. Per pt, "my mom will bring it in tomorrow AM." RN to call pt's mother to confirm home med drop off for inpatient administration.
[2018-07-13] MEDS: Morphine Sulfate 2mg/ml Inj(IV/IM USE ONLY) IVP PRN ×6 (04:56→21:44)
--- NOTE | 2018-07-13 06:15 | NUR ---
NURSE NOTES: RN endorsed HR of 150s to Dr. Hester, BP 105/75, temperature 99.3. No acute s/s of distress at bedside. Pt currently on D5NS at 100.
--- NOTE | 2018-07-13 06:25 | NUR ---
NURSE NOTES: Per Dr. Hester, consult Dr. Howe.
--- NOTE | 2018-07-13 07:15 | NUR ---
NURSE NOTES: RN left message with Dr. Howe informed him of pt's HR in 170s-180s, BP of 105/55, temp 99.3. Currently awaiting call back.
--- NOTE | 2018-07-13 07:20 | NUR ---
HAND-OFF: Report given to TRES Shultz.
[2018-07-13] MEDS ORDERED: Metoprolol 25mg tab ORAL SCH (08:00)
--- NOTE | 2018-07-13 08:00 | NUR ---
NURSE NOTES: Received report from Sina/RN, Patient awake and alert x4. Patient sinus tachy 170's Called Dr. Gtz and received new order for Metoprolol. Order carried out. Bed in low position and locked. Call light within reach. Will continue plan of care.
--- NOTE | 2018-07-13 08:20 | NUR ---
NURSE NOTES: Received transfer order to [facility] from Dr. Gtz.
[2018-07-13] MEDS ORDERED: Dolutegravir Sodium 50mg tab ORAL SCH (09:00)
[2018-07-13] MEDS ORDERED: Bactrim-DS 1 tab ORAL SCH (09:00)
--- NOTE | 2018-07-13 09:37 | NUR ---
NURSE NOTES: Dr Howe stated to transfer pt to ICU and to start pt on cardizerm drip, clarified to him that pt have fever and EKG done and he was notified with order to do stat echo and pt can be transfer to [facility]. lead housekeeper was notified.
[2018-07-13] MEDS ORDERED: Vancomycin 1gm/D5W 275ml IVPB SCH ×2 (10:00)
[2018-07-13] MEDS ORDERED: Nitroglycerin Subl 0.4mg tab SL PRN (10:00)
--- NOTE | 2018-07-13 10:00 | NUR ---
NURSE NOTES: Received report from Orville Meredith RN. Patient transferred from telemetry to SDU room 234-1 for elevated HR of 170s. Patient alert and oriented x 4, able to make needs known. ST 150s on cardiac technician. On room air, respirations even and unlabored. Left forearm 22g infusing D5NS @ 100 cc/hr, asymptomatic. Dr. Howe notified of patient's current cardiac rhythm, metoprolol 25mg PO given in telemetry, no PRN medications and last echo result, awaiting reply. Bed locked in lowest position with side rails up x 3. All needs attended to. Call light within reach. Will continue to monitor.
--- NOTE | 2018-07-13 10:02 | NUR ---
NURSE NOTES: Patient transferred to [facility], and report Given to Rosa/TRES. Endorsed plan of care.
[2018-07-13] MEDS: Vancomycin 1 GM in D5W 275 ML IVPB SCH ×2 (10:37→22:00)
--- NOTE | 2018-07-13 10:57 | Consultation ---
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 difficile, sepsis, He presented again with chief complaint of abdominal pain with nausea vomiting and diarrhea for last 3 days. Diarrhea is profuse and ongoing for a week. Subjective fever and felt very weak. He was hypotensive and tachycardic and is admitted to [facility] for further management. Allergies: Coded Allergies: No Known Allergies (Unverified , 10/21/17) Medication History Scheduled Azithromycin* (Zithromax*), 250 MG ORAL Q24H Cholecalciferol (Vitamin D3)* (Vitamin D*), 1,000 UNIT ORAL DAILY, (Reported) Dolutegravir Sodium (Tivicay), 50 MG ORAL DAILY, (Reported) Dolutegravir Sodium (Tivicay), 50 MG ORAL DAILY, (Reported) Emtricitabine/Tenofovir (Truvada 200 mg-300 mg Tablet), 1 TAB ORAL DAILY, ( Reported) Emtricitabine/Tenofovir 200-300MG* (Truvada 200-300MG*), 1 TAB ORAL DAILY, ( Reported) Metoprolol Tartrate* (Metoprolol Tartrate*), 50 MG ORAL Q12HR Mirtazapine* (Mirtazapine*), 15 MG ORAL BEDTIME No Known Medications* (NKM - No Known Medications*), 0 ., (Reported) Trimethoprim/Sulfamethoxazole (Bactrim Ds Tablet), 1 TAB ORAL DAILY Vancomycin HCl (Vancocin HCl), 250 MG ORAL QID Scheduled PRN Diphenoxylate Hcl/Atropine (Lomotil Tablet), 2.5 MG ORAL Q4H PRN Patient History Healthcare decision maker Resuscitation status Full Code Advanced Directive on File Past Medical/Surgical History Past Medical/Surgical History: (1) Protein-calorie malnutrition, severe (2) Hepatitis C (3) Hepatitis B (4) HIV disease (5) Kaposi disease (6) Castleman disease (7) Malnutrition (8) C. difficile colitis Review of Systems All Other Systems: negative except mentioned in HPI Physical Exam General Appearance: cachetic, thin Lines, tubes and drains: peripheral HEENT: normocephalic, atraumatic Neck: non-tender, normal alignment Respiratory/Chest: chest wall non-tender, normal breath sounds Cardiovascular/Chest: normal peripheral pulses, regular rhythm Abdomen: normal bowel sounds Last 24 Hour Vital Signs Date Time Temp Pulse Resp B/P (MAP) Pulse Ox O2 Delivery O2 Flow Rate FiO2 07/13/18 08:03 169 106/62 07/13/18 08:00 100.4 173 20 113/68 (83) 100 173 07/13/18 04:00 138 07/13/18 04:00 99.3 115 16 113/64 (80) 100 115 07/13/18 03:11 Room Air 07/13/18 02:45 139 07/13/18 02:35 99.5 130 18 111/67 (82) 100 130 07/13/18 01:25 98.8 116 20 105/54 100 Room Air 07/13/18 00:45 98.8 106 19 106/58 100 Room Air 07/12/18 23:57 98.9 07/12/18 23:00 99.9 118 19 103/55 99 Room Air 07/12/18 22:53 98.9 07/12/18 22:53 98.9 07/12/18 21:25 99.0 150 19 93/74 (80) 99 Room Air Intake and Output 07/12/18 07/13/18 19:00 07:00 Intake Total 150 ml Balance 150 ml Intake Oral 150 ml Laboratory Tests Test 07/12/18 22:10 07/12/18 23:59 07/13/18 01:30 White Blood Count 8.8 K/UL (4.8-10.8) Red Blood Count 3.21 M/UL (4.70-6.10) L Hemoglobin 8.5 G/DL (14.2-18.0) L Hematocrit 25.7 % (42.0-52.0) L Mean Corpuscular Volume 80 FL (80-99) Mean Corpuscular Hemoglobin 26.4 PG (27.0-31.0) L Mean Corpuscular Hemoglobin Concent 33.0 G/DL (32.0-36.0) Red Cell Distribution Width 19.7 % (11.6-14.8) H Platelet Count 54 K/UL (150-450) L Mean Platelet Volume 5.7 FL (6.5-10.1) L Neutrophils (%) (Auto) % (45.0-75.0) Lymphocytes (%) (Auto) % (20.0-45.0) Monocytes (%) (Auto) % (1.0-10.0) Eosinophils (%) (Auto) % (0.0-3.0) Basophils (%) (Auto) % (0.0-2.0) Differential Total Cells Counted 100 Neutrophils % (Manual) 62 % (45-75) Lymphocytes % (Manual) 34 % (20-45) Monocytes % (Manual) 4 % (1-10) Eosinophils % (Manual) 0 % (0-3) Basophils % (Manual) 0 % (0-2) Band Neutrophils 0 % (0-8) Nucleated Red Blood Cells 1 /100 WBC Platelet Estimate Decreased L Platelet Morphology Normal Red Blood Cell Morphology Normal Hypochromasia Occasional Anisocytosis 1+ Microcytosis 1+ Prothrombin Time 14.0 SEC (9.30-11.50) H Prothromb Time International Ratio 1.3 (0.9-1.1) H Activated Partial Thromboplast Time 40 SEC (23-33) H Sodium Level 134 MMOL/L (136-145) L Potassium Level 3.6 MMOL/L (3.5-5.1) Chloride Level 100 MMOL/L (98-107) Carbon Dioxide Level 28 MMOL/L (21-32) Anion Gap 7 mmol/L (5-15) Blood Urea Nitrogen 20 mg/dL (7-18) H Creatinine 1.2 MG/DL (0.55-1.30) Estimat Glomerular Filtration Rate > 60 mL/min (>60) Glucose Level 101 MG/DL (74-106) Lactic Acid Level 3.10 mmol/L (0.4-2.0) H 1.90 mmol/L (0.66-2.22) Calcium Level 6.9 MG/DL (8.5-10.1) L Total Bilirubin 0.7 MG/DL (0.2-1.0) Aspartate Amino Transf (AST/SGOT) 35 U/L (15-37) Alanine Aminotransferase (ALT/SGPT) 17 U/L (12-78) Alkaline Phosphatase 72 U/L (46-116) Total Creatine Kinase 8 U/L (26-308) L Creatine Kinase MB < 0.5 NG/ML (0.0-3.6) Creatine Kinase MB Relative Index 6.2 Troponin I 0.003 ng/mL (0.000-0.056) Total Protein 5.3 G/DL (6.4-8.2) L Albumin 0.8 G/DL (3.4-5.0) L Globulin 4.5 g/dL Albumin/Globulin Ratio 0.2 (1.0-2.7) L Urine Color Pale yellow Urine Appearance Clear Urine pH 5 (4.5-8.0) Urine Specific [place] 1.015 (1.005-1.035) Urine Protein 1+ (NEGATIVE) H Urine Glucose (UA) Negative (NEGATIVE) Urine Ketones Negative (NEGATIVE) Urine Blood Negative (NEGATIVE) Urine Nitrite Negative (NEGATIVE) Urine Bilirubin Negative (NEGATIVE) Urine Urobilinogen Normal MG/DL (0.0-1.0) Urine Leukocyte Esterase Negative (NEGATIVE) Urine RBC 0-2 /HPF (0 - 0) H Urine WBC 2-4 /HPF (0 - 0) Urine Squamous Epithelial Cells Few /LPF (NONE/OCC) Urine Bacteria Few /HPF (NONE) Urine Fine Granular Casts 0-2 /LPF (NONE) H Microbiology Date/Time Source Procedure Growth Status 07/12/18 23:10 Stool Stool Culture Pending Resulted 07/12/18 23:10 Stool Clostridium difficile Toxin Assay - Final Resulted 07/13/18 04:23 Rectum Received Height (Feet): 6 Height (Inches): 0.00 Weight (Pounds): 125 Medications Current Medications Medications (Trade) Dose Ordered Sig/Yessica Route PRN Reason Start Time Stop Time Status Last Admin Dose Admin Acetaminophen (Tylenol) 650 mg Q4H PRN ORAL fever 07/13/18 13:45 08/11/18 21:44 Dextrose (Dextrose 50%) 25 ml Q30M PRN IV Hypoglycemia 07/13/18 10:15 08/11/18 21:44 Dextrose (Dextrose 50%) 50 ml Q30M PRN IV Hypoglycemia 07/13/18 10:15 08/11/18 21:44 Dextrose/Sodium Chloride 1,000 ml @ 100 mls/hr Q10H IV 07/13/18 10:00 08/11/18 21:43 07/13/18 10:37 Diphenhydramine HCl (Benadryl) 25 mg Q6H PRN ORAL Itching/Pruritis 07/13/18 15:45 08/11/18 21:44 Dolutegravir Sodium (Tivicay) 50 mg DAILY ORAL 07/14/18 09:00 08/12/18 08:59 UNV Emtricitabine/ Tenofovir (Truvada 200/ 300mg) 1 tab DAILY ORAL 07/14/18 09:00 08/12/18 08:59 UNV Metoprolol Tartrate (Lopressor) 25 mg BID ORAL 07/13/18 18:00 08/12/18 07:59 Mirtazapine (Remeron) 15 mg BEDTIME ORAL 07/13/18 21:00 08/12/18 20:59 Morphine Sulfate (Morphine Sulfate) 2 mg Q4H PRN IVP severe Pain (Pain Scale 7-10) 07/13/18 13:45 07/19/18 21:44 Nitroglycerin (Ntg) 0.4 mg Q5M X 3 DOSES PRN SL Prn Chest Pain 07/13/18 10:00 08/11/18 21:44 Ondansetron HCl (Zofran) 4 mg Q6H PRN IVP Nausea & Vomiting 07/13/18 15:45 08/11/18 21:44 Piperacillin Sod/ Tazobactam Sod 3.375 gm/Sodium Chloride 110 ml @ 27.5 mls/hr Q8H IVPB 07/13/18 12:00 07/20/18 11:59 Polyethylene Glycol (Miralax) 17 gm HSPRN PRN ORAL Constipation 07/13/18 21:45 08/11/18 21:44 Temazepam (Restoril) 15 mg HSPRN PRN ORAL Insomnia 07/13/18 21:45 07/19/18 21:44 Trimethoprim/ Sulfamethoxazole (Bactrim-DS) 1 tab DAILY ORAL 07/14/18 09:00 07/20/18 08:59 Vancomycin HCl (Vanco rx to dose) 1 ea DAILY PRN MISC Per rx protocol 07/14/18 09:00 08/12/18 07:59 Vancomycin HCl 1 gm/Dextrose 275 ml @ 183.708 mls/hr Q12H IVPB 07/13/18 10:00 07/18/18 09:59 07/13/18 10:37 Assessment/Plan Problem List: (1) Severe sepsis ICD Codes: A41.9 - Sepsis, unspecified organism; R65.20 - Severe sepsis without septic shock SNOMED: 40636578 (2) Castleman disease ICD Codes: D47.Z2 - Castleman disease SNOMED: 519123374, 515501006 (3) Kaposi disease ICD Codes: Q82.1 - Xeroderma pigmentosum SNOMED: 34328476 (4) HIV disease ICD Codes: B20 - Human immunodeficiency virus [HIV] disease SNOMED: 19685095 (5) Hepatitis B ICD Codes: B19.10 - Unspecified viral hepatitis B without hepatic coma SNOMED: 11489992 (6) Hepatitis C ICD Codes: B19.20 - Unspecified viral hepatitis C without hepatic coma SNOMED: 92429945 Assessment/Plan: NPO IV fluids escobedo cultures Po vancomycin and iv flagyl ID evaluation cardiology was called for tachycardia of 150-170 Ya Hester MD July 13, 2018 10:56
[2018-07-13] MEDS: Piperacillin/Tazobactam 3.375 GM in NS 110 ML IVPB SCH ×2 (11:48→20:00)
[2018-07-13] MEDS ORDERED: Piperacillin/Tazobactam 3.375 GM in NS 110 ML IVPB SCH (12:00)
--- NOTE | 2018-07-13 12:11 | NUR ---
NURSE NOTES: Patient noted with fever of 100.6F. PRN Tylenol not yet due. Cooling measures and ice packs provided. Will continue to monitor.
--- NOTE | 2018-07-13 12:45 | History & Physical ---
History and Physical History & Physicial Dictated for Int Med-Dr. Gtz no. [id number] Adam Padron MD July 13, 2018 12:45
--- NOTE | 2018-07-13 13:10 | Cardiac Electrophysiology PN ---
Subjective Subjective 1. Sinus tachycardia, due to sepsis, anemia and pain. Ruled out for MO. EKG showed no acute ischemic changes. No evidence of atrial fibrillation or supraventricular tachycardia. EF 75%. 2. Hypertension. Stable off on antihypertensive agents. 3. 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 5. History of pancreatitis and hepatitis B and C positive. 6. Severe anemia. 7. Hyponatremia, [id number] Objective Last 24 Hour Vital Signs Date Time Temp Pulse Resp B/P (MAP) Pulse Ox O2 Delivery O2 Flow Rate FiO2 07/13/18 12:00 100.6 120 20 91/50 (64) 100 120 07/13/18 11:52 117 07/13/18 09:00 Room Air 07/13/18 08:03 169 106/62 07/13/18 08:00 167 07/13/18 08:00 100.4 173 20 113/68 (83) 100 173 07/13/18 04:00 138 07/13/18 04:00 99.3 115 16 113/64 (80) 100 115 07/13/18 03:11 Room Air 07/13/18 02:45 139 07/13/18 02:35 99.5 130 18 111/67 (82) 100 130 07/13/18 01:25 98.8 116 20 105/54 100 Room Air 07/13/18 00:45 98.8 106 19 106/58 100 Room Air 07/12/18 23:57 98.9 07/12/18 23:00 99.9 118 19 103/55 99 Room Air 07/12/18 22:53 98.9 07/12/18 22:53 98.9 07/12/18 21:25 99.0 150 19 93/74 (80) 99 Room Air Intake and Output 07/12/18 07/13/18 18:59 06:59 Intake Total 150 ml Balance 150 ml Intake Oral 150 ml Laboratory Tests Test 07/12/18 22:10 07/12/18 23:59 07/13/18 01:30 White Blood Count 8.8 K/UL (4.8-10.8) Red Blood Count 3.21 M/UL (4.70-6.10) L Hemoglobin 8.5 G/DL (14.2-18.0) L Hematocrit 25.7 % (42.0-52.0) L Mean Corpuscular Volume 80 FL (80-99) Mean Corpuscular Hemoglobin 26.4 PG (27.0-31.0) L Mean Corpuscular Hemoglobin Concent 33.0 G/DL (32.0-36.0) Red Cell Distribution Width 19.7 % (11.6-14.8) H Platelet Count 54 K/UL (150-450) L Mean Platelet Volume 5.7 FL (6.5-10.1) L Neutrophils (%) (Auto) % (45.0-75.0) Lymphocytes (%) (Auto) % (20.0-45.0) Monocytes (%) (Auto) % (1.0-10.0) Eosinophils (%) (Auto) % (0.0-3.0) Basophils (%) (Auto) % (0.0-2.0) Differential Total Cells Counted 100 Neutrophils % (Manual) 62 % (45-75) Lymphocytes % (Manual) 34 % (20-45) Monocytes % (Manual) 4 % (1-10) Eosinophils % (Manual) 0 % (0-3) Basophils % (Manual) 0 % (0-2) Band Neutrophils 0 % (0-8) Nucleated Red Blood Cells 1 /100 WBC Platelet Estimate Decreased L Platelet Morphology Normal Red Blood Cell Morphology Normal Hypochromasia Occasional Anisocytosis 1+ Microcytosis 1+ Prothrombin Time 14.0 SEC (9.30-11.50) H Prothromb Time International Ratio 1.3 (0.9-1.1) H Activated Partial Thromboplast Time 40 SEC (23-33) H Sodium Level 134 MMOL/L (136-145) L Potassium Level 3.6 MMOL/L (3.5-5.1) Chloride Level 100 MMOL/L (98-107) Carbon Dioxide Level 28 MMOL/L (21-32) Anion Gap 7 mmol/L (5-15) Blood Urea Nitrogen 20 mg/dL (7-18) H Creatinine 1.2 MG/DL (0.55-1.30) Estimat Glomerular Filtration Rate > 60 mL/min (>60) Glucose Level 101 MG/DL (74-106) Lactic Acid Level 3.10 mmol/L (0.4-2.0) H 1.90 mmol/L (0.66-2.22) Calcium Level 6.9 MG/DL (8.5-10.1) L Total Bilirubin 0.7 MG/DL (0.2-1.0) Aspartate Amino Transf (AST/SGOT) 35 U/L (15-37) Alanine Aminotransferase (ALT/SGPT) 17 U/L (12-78) Alkaline Phosphatase 72 U/L (46-116) Total Creatine Kinase 8 U/L (26-308) L Creatine Kinase MB < 0.5 NG/ML (0.0-3.6) Creatine Kinase MB Relative Index 6.2 Troponin I 0.003 ng/mL (0.000-0.056) Total Protein 5.3 G/DL (6.4-8.2) L Albumin 0.8 G/DL (3.4-5.0) L Globulin 4.5 g/dL Albumin/Globulin Ratio 0.2 (1.0-2.7) L Urine Color Pale yellow Urine Appearance Clear Urine pH 5 (4.5-8.0) Urine Specific [place] 1.015 (1.005-1.035) Urine Protein 1+ (NEGATIVE) H Urine Glucose (UA) Negative (NEGATIVE) Urine Ketones Negative (NEGATIVE) Urine Blood Negative (NEGATIVE) Urine Nitrite Negative (NEGATIVE) Urine Bilirubin Negative (NEGATIVE) Urine Urobilinogen Normal MG/DL (0.0-1.0) Urine Leukocyte Esterase Negative (NEGATIVE) Urine RBC 0-2 /HPF (0 - 0) H Urine WBC 2-4 /HPF (0 - 0) Urine Squamous Epithelial Cells Few /LPF (NONE/OCC) Urine Bacteria Few /HPF (NONE) Urine Fine Granular Casts 0-2 /LPF (NONE) H Microbiology Date/Time Source Procedure Growth Status 07/12/18 23:10 Stool Stool Culture Pending Resulted 07/12/18 23:10 Stool Clostridium difficile Toxin Assay - Final Resulted 07/13/18 04:23 Rectum Received Toney Howe MD July 13, 2018 13:10
--- NOTE | 2018-07-13 14:27 | Cardiology Report ---
APPROVED REPORT EXAM: Two-dimensional and M-mode echocardiogram with Doppler and color Doppler. INDICATION Arrhythmia M-Mode DIMENSIONS IVSd0.8 (0.7-1.1cm)Left Atrium (MM)2.8 (1.6-4.0cm) LVDd4.0 (3.5-5.6cm)Aortic Root3.2 (2.0-3.7cm) PWd0.6 (0.7-1.1cm)Aortic Cusp Exc.2.0 (1.5-2.0cm) IVSs1.0 cm LVDs3.1 (2.5-4.0cm) PWs1.0 cm Normal left ventricular chamber size, there is global left ventricular wall hypokinesia Left ventricular ejection fraction estimated to be 45-50%. Mild left ventricular hypertrophy by 2-D. Anterior Echo-free space, may be due to pericardial fat or effusion. Right ventricular enlargement with basal segments akinesia and preserved apical segment, possible Hayes sign suggestive of pulmonary embolism. Aortic valve calcification with normal cusp excursion. Mildly thickened mitral valve leaflets with normal excursion. Mild mitral annulus and aortic root calcification. Pulmonic valve not well visualized. IVC at normal size with physiologic collapse. A color flow and spectral Doppler study was performed and revealed: Trace aortic insufficiency. Left ventricular diastolic function not diagnostic due to Arrythmia. Trace mitral regurgitation. Mild to moderate tricuspid regurgitation. Tricuspid systolic velocities suggests peak right ventricular systolic pressure of 50 mmHg,consistent with moderate pulmonary hypertension . Mild pilmonic regurgitaion.
--- NOTE | 2018-07-13 14:39 | Cardiology Report ---
APPROVED REPORT EKG Measurement Heart [id number] [id number] Sinus tachycardia with short [place] Right superior axis deviation Marked ST abnormality, possible inferior subendocardial injury Abnormal ECG
--- NOTE | 2018-07-13 14:47 | NUR ---
CASE MANAGEMENT: REVIEW 37Y/M PRESENTED TO ED FROM HOME CC: N/V/D SI: DEHYDRATION . SEPSIS T 99.9 HR 150 RR 19 BP 93/74 SAT 99% ROOM AIR H/H 8.5/25.7 NA 134 BUN 20 LACTIC ACID 3.10 IS: D5 NS IVF BOLUS X1 NS IVF BOLUS X1 ZOFRAN IV X1 VIT K IV X1 TYLENOL PO X1 PATIENT ADMITTED TO STEP DOWN UNIT 07/12/2018 DCP: PATIENT IS FROM HOME
[2018-07-13 16:14] LABS: HEMATOCRIT 21.9 % (42.0-52.0); HEMOGLOBIN 7.4 G/DL (14.2-18.0); MEAN CORPUSCULAR VOLUME 79 FL (80-99); PLATELET COUNT 37 K/UL (150-450); RED BLOOD COUNT 2.78 M/UL (4.70-6.10); RED CELL DISTRIBUTION WIDTH 20.3 % (11.6-14.8); WHITE BLOOD COUNT 10.9 K/UL (4.8-10.8)
[2018-07-13 16:22] LABS: INR 1.4 (0.9-1.1)
[2018-07-13 16:27] LABS: ALANINE AMINOTRANSFERASE 11 U/L (12-78); ALBUMIN 0.6 G/DL (3.4-5.0); ALBUMIN/GLOBULIN RATIO 0.1 (1.0-2.7); ALKALINE PHOSPHATASE 67 U/L (46-116); AMYLASE 27 U/L (25-115); ANION GAP 6 mmol/L (5-15); ASPARTATE AMINO TRANSFERASE 31 U/L (15-37); BILIRUBIN,TOTAL 0.5 MG/DL (0.2-1.0); BLOOD UREA NITROGEN 25 mg/dL (7-18); CALCIUM 6.7 MG/DL (8.5-10.1); CARBON DIOXIDE 23 MMOL/L (21-32); CHLORIDE 103 MMOL/L (98-107); CREATININE 1.6 MG/DL (0.55-1.30); POTASSIUM 3.6 MMOL/L (3.5-5.1); SODIUM 132 MMOL/L (136-145)
--- NOTE | 2018-07-13 17:34 | NUR ---
NURSE NOTES: Patient's hgb of 7.4 and platelet of [address] Hester and Dr. Padron. Dr. Hester aware, no new orders received. Will continue to monitor.
--- NOTE | 2018-07-13 17:39 | NUR ---
NURSE NOTES: Patient's EF of 45-50% reported to Dr. Howe, no new orders received.
[2018-07-13] MEDS: Metoprolol 25mg tab ORAL SCH (18:00)
--- NOTE | 2018-07-13 18:45 | History and Physical Report ---
DATE OF ADMISSION: 07/12/2018 CHIEF COMPLAINT: The patient is a 37-year-old male, presents with chief complaint of abdominal pain, nausea, vomiting, and diarrhea. HISTORY OF PRESENT ILLNESS: The patient was admitted to [facility] from June 12 to June 21, 2018. The patient was admitted for Clostridium difficile at that time. Please see history and physical and discharge summary dictated at that time. The patient states his present illness began three days prior to admission. The patient began to have watery diarrhea. The patient also had abdominal pain. The patient was experiencing nausea and vomiting. The patient presented to [facility]. The patient was found to be dehydrated. The patient is admitted for diarrhea to rule out Clostridium difficile diarrhea. REVIEW OF SYSTEMS: CONSTITUTIONAL: The patient denies weight loss or weight gain. The patient denies fevers or chills. HEENT: The patient denies ear or throat pain. The patient denies headache. CARDIOVASCULAR: The patient denies palpitations or chest pain. CHEST: The patient denies wheeze or shortness of breath. ABDOMINAL: The patient complains of generalized abdominal pain. The patient complains of nausea, vomiting, and diarrhea as above. The patient complains of black stools. GENITOURINARY: The patient denies dysuria or increased frequency of urination. NEUROMUSCULAR: The patient denies seizures or generalized weakness. PAST MEDICAL HISTORY: Significant for: 1. HIV, which was diagnosed in 1999. 2. Kaposi sarcoma, diagnosed in 2014, status post chemotherapy. 3. Castleman's disease. 4. Hepatitis B positive. PAST SURGICAL HISTORY: The patient denies. CURRENT MEDICATIONS: 1. Azithromycin 250 mg p.o. daily. 2. Vitamin D 1000 units p.o. daily. 3. Tivicay 50 mg p.o. daily. 4. Truvada 200/300 mg one tablet p.o. daily. 5. Metoprolol 50 mg p.o. twice daily. 6. Mirtazapine 15 mg p.o. nightly. 7. Bactrim double-strength one tablet p.o. daily. ALLERGIES: No known drug allergies. SOCIAL HISTORY: The patient is single and lives with his mother. The patient admits to occasional tobacco use. The patient denies alcohol use. PHYSICAL EXAMINATION: VITAL SIGNS: Temperature 99.0 degrees, respirations 19, pulse 150, and blood pressure 93/74. GENERAL: The patient is thin-appearing male, in no apparent distress. HEENT: Eyes, pupils equal and responsive to light and accommodation. Extraocular movements are intact. NECK: Supple without lymphadenopathy. CHEST: Lungs are clear to auscultation bilaterally without wheezes or rales. CARDIOVASCULAR: Tachycardic, regular rhythm. S1 and S2 are normal without murmurs, rubs, or gallops. ABDOMEN: Soft, nontender, nondistended. Positive bowel sounds. No evidence of hepatosplenomegaly. Currently, no rebound or guarding noted. RECTAL: Refused. GENITALIA: Refused. EXTREMITIES: Negative for clubbing, cyanosis, or edema. NEUROLOGIC: Cranial nerves II through XII are grossly intact without focal deficits. Motor strength is 5/5 bilaterally intact. Deep tendon reflexes are 2+ plantar. LABORATORY STUDIES: WBC 8.8, hemoglobin 8.5, hematocrit 25.7, and platelets 54,000. Sodium 134, potassium 3.6, chloride 100, CO2 20, BUN 20, creatinine 1.3, and glucose 101. ASSESSMENT: This is a 37-year-old male with: 1. Abdominal pain. 2. Nausea with vomiting. 3. Diarrhea. 4. Rectal bleeding. 5. Human immunodeficiency virus. 6. Kaposi's sarcoma. 7. Castleman's disease. 8. Hepatitis B. TREATMENT: 1. Abdominal pain/nausea/vomiting/rectal bleeding. The patient has history of Clostridium difficile, which was resistant to Flagyl. An Infectious Diseases consultation has been obtained with Dr. Mendoza. A Gastroenterology consultation has been obtained with Dr. Michael Grande. We will follow recommendations of GI and Infectious Diseases. 2. Human immunodeficiency virus. Continue HAART as above. 3. Kaposi's sarcoma. The patient is status post chemotherapy. 4. Castleman's disease. Please see the previous history and physical from previous hospitalization. 5. Hepatitis B. Adam Padron M.D. DR: Selina JOB#: [id number] CC:
--- NOTE | 2018-07-13 19:33 | NUR ---
HAND-OFF: Report given to Jess Gay RN.
--- NOTE | 2018-07-13 19:53 | NUR ---
NURSE NOTES: recvd pt. Pt is sleeping in bed comfortably.Pt is on room air with no sign of resp distress or sob. Iv site is c/d/i and infusing D5NS @ 100 cc/hr, asymptomatic. HOB is elevated, bed alarm is on, bed in lowest locked position, will continue with plan of care.
--- NOTE | 2018-07-13 21:26 | NUR ---
NURSE NOTES: Contacted dr Gtz, to notify pt is sustaining HR 150, awaiting call back
[2018-07-13] MEDS ORDERED: Miralax 17gm pkt ORAL PRN (21:45)
--- NOTE | 2018-07-13 21:45 | NUR ---
MOLD CONSTRUCTION SUPERVISOR Note: MOLD CONSTRUCTION SUPERVISOR was called at 2131 by sdu, and notified MD dr underwood. Pt transferred to at . See MOLD CONSTRUCTION SUPERVISOR documentation form for full report.ergonomics consultant called due to hr of 163/min, sinus tach bp 108/71.rr 20/min temp 98.1, bs 72, patient verbalized generalized pain, o2 sat 98%,patient remains in sdu, pain med given by primary nurse
--- NOTE | 2018-07-13 21:53 | NUR ---
NURSE NOTES: CALLED RAPID RESPONSE; PT WAS SUSTAINING HR AT 163, DR CACERES AND DR ACKERMAN WERE NOTIFIED. PT WAS PLACED ON NON REBREATHER AND THEN SWITCHED TO NC. ABG DRAWN. MORPHINE 2MG WAS ADMINISTERED. PT APPEARS SINUS TACHY 160 ON MONITOR.
--- NOTE | 2018-07-13 22:00 | Consultation ---
DATE OF CONSULTATION: 07/13/2018 CARDIOLOGY CONSULTATION CONSULTING PHYSICIAN: Toney Howe M.D. REFERRING PHYSICIAN: Alberto Gtz M.D. REASON FOR CONSULTATION: Tachycardia. HISTORY OF PRESENT ILLNESS: The patient is a 37-year-old gentleman with a history of AIDS and Castleman syndrome, who was just discharged 3 weeks ago when he presented with C. diff, diarrhea, abdominal pain, sepsis as well as tachycardia. The patient presented to the emergency room with vomiting in the last 3 days as well as perfused diarrhea that has been going on for about a week and he said he was melanotic. The patient was admitted to telemetry. On telemetry, he was found to be tachycardic with heart rate up to 170s. Cardiac electrophysiology consultation was obtained for further evaluation and management. REVIEW OF SYSTEMS: Negative other than what was mentioned in the history of present illness. PAST MEDICAL HISTORY: As mentioned above. FAMILY HISTORY: Noncontributory. SOCIAL HISTORY: Currently, does not smoke or drink alcohol. PHYSICAL EXAMINATION: VITAL SIGNS: Show blood pressure of 91/50, pulse is 100, 170s, respirations 18, and temperature 100.6. HEAD AND NECK: Showed no jugular venous distention. LUNGS: Clear. CARDIOVASCULAR: Shows tachycardic S1, S2 with no gallop or murmur. ABDOMEN: Soft. EXTREMITIES: No pitting edema. LABORATORY AND DIAGNOSTIC DATA: White count of 8.8, hemoglobin of 8.5, hematocrit of 25, and platelet count is only 54,000. Sodium is 134, potassium 3.3, BUN of 20, creatinine 1.2, and glucose of 101. Troponin is negative. ASSESSMENT AND PLAN: 1. Tachycardia. sinus tachycardia and the heart rate goes up to 170s. This is secondary to underlying sepsis. We will completely rule out myocardial infarction protocol. His last echocardiogram showed ejection fraction of 75%. Currently, the patient has no evidence of atrial fibrillation or supraventricular tachycardia. 2. History of hypertension. Blood pressure is low. Keep off on antihypertensives. 3. HIV. On Truvada. 4. History of Kaposi's sarcoma. 5. History of pancreatitis, hepatitis B, and hepatitis C. 6. Severe anemia, status post transfusion. 7. History of hyponatremia. Thank you very much for allowing me to participate in the care of this patient. Please do not hesitate to contact me for any questions regarding my evaluation. Toney Howe M.D. DR: HUY JOB#: [id number] CC:
--- NOTE | 2018-07-13 22:25 | NUR ---
NURSE NOTES: recvd response from DR Gtz at [id number], no new orders
--- NOTE | 2018-07-13 23:31 | NUR ---
NURSE NOTES: DR Narayanan called back, no new orders given regarding HR 150-160, states to continue fluid hydration.
[2018-07-14] VITALS: BP 112/61
[2018-07-14] MEDS: Morphine Sulfate 2mg/ml Inj(IV/IM USE ONLY) IVP PRN ×2 (02:43→10:04)
[2018-07-14 04:00] VITALS: BP 144/73
[2018-07-14] MEDS: D5NS 1,000 ML IV SCH ×2 (05:24→16:43)
[2018-07-14] MEDS: Piperacillin/Tazobactam 3.375 GM in NS 110 ML IVPB SCH ×3 (05:25→19:40)
[2018-07-14 08:00] VITALS: BP 116/70
[2018-07-14 09:12] LABS: HEMATOCRIT 20.7 % (42.0-52.0); MEAN CORPUSCULAR VOLUME 82 FL (80-99); PLATELET COUNT 30 K/UL (150-450); RED BLOOD COUNT 2.51 M/UL (4.70-6.10); RED CELL DISTRIBUTION WIDTH 21.3 % (11.6-14.8); WHITE BLOOD COUNT 12.5 K/UL (4.8-10.8)
[2018-07-14 09:15] LABS: HEMOGLOBIN 6.9 G/DL (14.2-18.0)
[2018-07-14 09:31] LABS: ALANINE AMINOTRANSFERASE < 6 U/L (12-78); ALBUMIN 0.6 G/DL (3.4-5.0); ALKALINE PHOSPHATASE 64 U/L (46-116); ANION GAP 8 mmol/L (5-15); ASPARTATE AMINO TRANSFERASE 27 U/L (15-37); BILIRUBIN,TOTAL 0.5 MG/DL (0.2-1.0); BLOOD UREA NITROGEN 31 mg/dL (7-18); CALCIUM 6.6 MG/DL (8.5-10.1); CARBON DIOXIDE 20 MMOL/L (21-32); CHLORIDE 102 MMOL/L (98-107); CREATININE 1.7 MG/DL (0.55-1.30); PHOSPHORUS 4.2 MG/DL (2.5-4.9); POTASSIUM 3.9 MMOL/L (3.5-5.1); SODIUM 130 MMOL/L (136-145)
[2018-07-14] MEDS: Metoprolol 25mg tab ORAL SCH ×2 (09:36→18:00)
[2018-07-14] MEDS: DOLUTEGRAVIR 50 MG ORAL SCH (09:36)
[2018-07-14] MEDS: TRUVADA ORAL SCH (09:36)
[2018-07-14] MEDS: Bactrim-DS 1 tab ORAL SCH (09:50)
--- NOTE | 2018-07-14 09:54 | Pulmonology Progress Note ---
Assessment/Plan Problems: (1) Severe sepsis (2) HIV disease (3) Sinus tachycardia (4) Anemia (5) Hepatitis C (6) Hepatitis B (7) Kaposi disease (8) Castleman disease (9) Protein-calorie malnutrition, severe Assessment/Plan prbc times 2 today f/u ID recommendation escobedo cultures pt refused previously excisional LN biopsy. Subjective ROS Limited/Unobtainable: Yes HEENT: Repors: no symptoms Allergies: Coded Allergies: No Known Allergies (Unverified , 10/21/17) Objective Last 24 Hour Vital Signs Date Time Temp Pulse Resp B/P (MAP) Pulse Ox O2 Delivery O2 Flow Rate FiO2 07/14/18 09:36 151 116/70 07/14/18 08:00 98.9 151 20 116/70 (85) 100 151 07/14/18 08:00 Room Air 07/14/18 04:00 98.8 157 20 144/73 (96) 92 157 07/14/18 04:00 Room Air 07/14/18 04:00 160 07/14/18 03:13 98.8 07/14/18 00:00 Room Air 07/14/18 00:00 100.0 153 20 112/61 (78) 98 117 07/14/18 00:00 157 07/13/18 20:33 117 07/13/18 20:00 Room Air 07/13/18 20:00 98.1 117 20 93/63 (73) 92 117 07/13/18 18:00 118 100/59 07/13/18 16:00 99.3 124 20 92/62 (72) 97 124 07/13/18 16:00 127 07/13/18 16:00 Room Air 07/13/18 13:56 99.0 07/13/18 12:00 100.6 120 20 91/50 (64) 100 120 07/13/18 12:00 Room Air 07/13/18 11:52 117 Intake and Output 07/13/18 07/14/18 19:00 07:00 Intake Total 2173.333 ml 1457.500 ml Balance 2173.333 ml 1457.500 ml Intake Oral 950 ml 500 ml IV Total 1223.333 ml 957.500 ml # Voids 3 # Bowel Movements 7 9 General Appearance: WD/WN HEENT: normocephalic, atraumatic Respiratory/Chest: chest wall non-tender, lungs clear Cardiovascular: normal peripheral pulses, normal rate, regular rhythm Genitourinary: normal external genitalia Extremities: no cyanosis Neurologic/Psychiatric: senior oracle pl sql developer II-XII grossly normal Lymphatic: no neck adenopathy Microbiology Date/Time Source Procedure Growth Status 07/12/18 22:25 Blood Blood Culture - Preliminary NO GROWTH AFTER 24 HOURS Resulted 07/12/18 22:10 Blood Blood Culture - Preliminary NO GROWTH AFTER 24 HOURS Resulted 07/12/18 23:10 Stool Stool Culture - Preliminary NORMAL FECAL MINNIE. Resulted 07/12/18 23:10 Stool Clostridium difficile Toxin Assay - Final Resulted 07/13/18 04:23 Rectum Received Laboratory Tests 07/13/18 15:36: White Blood Count 10.9H, Red Blood Count 2.78L, Hemoglobin 7.4L, Hematocrit 21.9L, Mean Corpuscular Volume 79L, Mean Corpuscular Hemoglobin 26.6L, Mean Corpuscular Hemoglobin Concent 33.7, Red Cell Distribution Width 20.3H, Platelet Count 37L, Mean Platelet Volume 6.7, Neutrophils (%) (Auto) , Lymphocytes (%) (Auto) , Monocytes (%) (Auto) , Eosinophils (%) (Auto) , Basophils (%) (Auto) , Differential Total Cells Counted 100, Neutrophils % ( Manual) 81H, Lymphocytes % (Manual) 7L, Monocytes % (Manual) 3, Eosinophils % ( Manual) 5H, Basophils % (Manual) 1, Band Neutrophils 3, Platelet Estimate DecreasedL, Platelet Morphology Normal, Hypochromasia 1+, Anisocytosis 1+, Prothrombin Time 14.8H, Prothromb Time International Ratio 1.4H, Activated Partial Thromboplast Time 53H, Sodium Level 132L, Potassium Level 3.6, Chloride Level 103, Carbon Dioxide Level 23, Anion Gap 6, Blood Urea Nitrogen 25H, Creatinine 1.6H, Estimat Glomerular Filtration Rate 58.9, Glucose Level 110H, Calcium Level 6.7L, Total Bilirubin 0.5, Aspartate Amino Transf (AST/SGOT) 31, Alanine Aminotransferase (ALT/SGPT) 11L, Alkaline Phosphatase 67, Total Protein 4.8L, Albumin 0.6L, Globulin 4.2, Albumin/Globulin Ratio 0.1L, Amylase Level 27 , Lipase 49L 07/13/18 21:46: Arterial Blood pH 7.453H, Arterial Blood Partial Pressure CO2 25.8L, Arterial Blood Partial Pressure O2 91.7, Arterial Blood HCO3 17.7*L, Arterial Blood Oxygen Saturation 96.3, Arterial Blood Base Excess -5.5L, Shayne Test Positive 07/14/18 08:55: White Blood Count 12.5H, Red Blood Count 2.51L, Hemoglobin 6.9*L, Hematocrit 20.7L, Mean Corpuscular Volume 82, Mean Corpuscular Hemoglobin 27.3, Mean Corpuscular Hemoglobin Concent 33.2, Red Cell Distribution Width 21.3H, Platelet Count 30L, Mean Platelet Volume 7.0, Neutrophils (%) (Auto) , Lymphocytes (%) (Auto) , Monocytes (%) (Auto) , Eosinophils (%) (Auto) , Basophils (%) (Auto) , Neutrophils % (Manual) [Pending], Lymphocytes % (Manual) [Pending], Platelet Estimate [Pending], Platelet Morphology [Pending], Sodium Level 130L, Potassium Level 3.9, Chloride Level 102, Carbon Dioxide Level 20L, Anion Gap 8, Blood Urea Nitrogen 31H, Creatinine 1.7H, Estimat Glomerular Filtration Rate 54.9, Glucose Level 98, Calcium Level 6.6L, Total Bilirubin 0.5 , Aspartate Amino Transf (AST/SGOT) 27, Alanine Aminotransferase (ALT/SGPT) < 6L , Alkaline Phosphatase 64, Total Protein 4.8L, Albumin 0.6L, Globulin 4.2, Erythrocyte Sedimentation Rate [Pending], Phosphorus Level 4.2, Magnesium Level 1.4L, C-Reactive Protein, Quantitative 26.1H, Vancomycin Level Trough 25.2H Current Medications Medications (Trade) Dose Ordered Sig/Yessica Route PRN Reason Start Time Stop Time Status Last Admin Dose Admin Acetaminophen (Tylenol) 650 mg Q4H PRN ORAL fever 07/13/18 13:45 08/11/18 21:44 07/13/18 13:26 Dextrose (Dextrose 50%) 25 ml Q30M PRN IV Hypoglycemia 07/13/18 10:15 08/11/18 21:44 Dextrose (Dextrose 50%) 50 ml Q30M PRN IV Hypoglycemia 07/13/18 10:15 08/11/18 21:44 Dextrose/Sodium Chloride 1,000 ml @ 100 mls/hr Q10H IV 07/13/18 10:00 08/11/18 21:43 07/14/18 05:24 Diphenhydramine HCl (Benadryl) 25 mg Q6H PRN ORAL Itching/Pruritis 07/13/18 15:45 08/11/18 21:44 Metoprolol Tartrate (Lopressor) 25 mg BID ORAL 07/13/18 18:00 08/12/18 07:59 07/14/18 09:36 Mirtazapine (Remeron) 15 mg BEDTIME ORAL 07/13/18 21:00 08/12/18 20:59 07/13/18 21:00 Morphine Sulfate (Morphine Sulfate) 2 mg Q4H PRN IVP severe Pain (Pain Scale 7-10) 07/13/18 13:45 07/19/18 21:44 07/14/18 02:43 Nitroglycerin (Ntg) 0.4 mg Q5M X 3 DOSES PRN SL Prn Chest Pain 07/13/18 10:00 08/11/18 21:44 Ondansetron HCl (Zofran) 4 mg Q6H PRN IVP Nausea & Vomiting 07/13/18 15:45 08/11/18 21:44 07/13/18 18:19 Patient Own Medication (Patient's Own Med) 1 ea DAILY ORAL 07/14/18 09:00 08/13/18 08:59 07/14/18 09:36 Patient Own Medication (Patient's Own Med) 1 ea DAILY ORAL 07/14/18 09:00 08/13/18 08:59 07/14/18 09:36 Piperacillin Sod/ Tazobactam Sod 3.375 gm/Sodium Chloride 110 ml @ 27.5 mls/hr Q8H IVPB 07/13/18 12:00 07/20/18 11:59 07/14/18 05:25 Polyethylene Glycol (Miralax) 17 gm HSPRN PRN ORAL Constipation 07/13/18 21:45 08/11/18 21:44 Temazepam (Restoril) 15 mg HSPRN PRN ORAL Insomnia 07/13/18 21:45 07/19/18 21:44 Trimethoprim/ Sulfamethoxazole (Bactrim-DS) 1 tab DAILY ORAL 07/14/18 09:00 07/20/18 08:59 07/14/18 09:50 Vancomycin HCl (Vanco rx to dose) 1 ea DAILY PRN MISC Per rx protocol 07/14/18 09:00 08/12/18 07:59 Ya Hester MD July 14, 2018 09:54
--- NOTE | 2018-07-14 10:24 | Cardiac Electrophysiology PN ---
Subjective Subjective 1. Sinus tachycardia, due to sepsis, anemia and pain. Ruled out for ME. EKG showed no acute ischemic changes. No atrial fibrillation or supraventricular tachycardia. EF 75%. Better with hydration, metoprolol 25 bid and pain management 2. Hypertension. On Metoprolol 25 bid 3. 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 5. History of pancreatitis and hepatitis B and C positive. 6. Severe anemia. 7. Hyponatremia DW RN Objective Last 24 Hour Vital Signs Date Time Temp Pulse Resp B/P (MAP) Pulse Ox O2 Delivery O2 Flow Rate FiO2 07/14/18 09:36 151 116/70 07/14/18 08:00 98.9 151 20 116/70 (85) 100 151 07/14/18 08:00 Room Air 07/14/18 04:00 98.8 157 20 144/73 (96) 92 157 07/14/18 04:00 Room Air 07/14/18 04:00 160 07/14/18 03:13 98.8 07/14/18 00:00 Room Air 07/14/18 00:00 100.0 153 20 112/61 (78) 98 117 07/14/18 00:00 157 07/13/18 20:33 117 07/13/18 20:00 Room Air 07/13/18 20:00 98.1 117 20 93/63 (73) 92 117 07/13/18 18:00 118 100/59 07/13/18 16:00 99.3 124 20 92/62 (72) 97 124 07/13/18 16:00 127 07/13/18 16:00 Room Air 07/13/18 13:56 99.0 07/13/18 12:00 100.6 120 20 91/50 (64) 100 120 07/13/18 12:00 Room Air 07/13/18 11:52 117 Intake and Output 07/13/18 07/14/18 19:00 07:00 Intake Total 2173.333 ml 1457.500 ml Balance 2173.333 ml 1457.500 ml Intake Oral 950 ml 500 ml IV Total 1223.333 ml 957.500 ml # Voids 3 # Bowel Movements 7 9 Laboratory Tests Test 07/13/18 15:36 07/13/18 21:46 07/14/18 08:55 White Blood Count 10.9 K/UL (4.8-10.8) H 12.5 K/UL (4.8-10.8) H Red Blood Count 2.78 M/UL (4.70-6.10) L 2.51 M/UL (4.70-6.10) L Hemoglobin 7.4 G/DL (14.2-18.0) L 6.9 G/DL (14.2-18.0) *L Hematocrit 21.9 % (42.0-52.0) L 20.7 % (42.0-52.0) L Mean Corpuscular Volume 79 FL (80-99) L 82 FL (80-99) Mean Corpuscular Hemoglobin 26.6 PG (27.0-31.0) L 27.3 PG (27.0-31.0) Mean Corpuscular Hemoglobin Concent 33.7 G/DL (32.0-36.0) 33.2 G/DL (32.0-36.0) Red Cell Distribution Width 20.3 % (11.6-14.8) H 21.3 % (11.6-14.8) H Platelet Count 37 K/UL (150-450) L 30 K/UL (150-450) L Mean Platelet Volume 6.7 FL (6.5-10.1) 7.0 FL (6.5-10.1) Neutrophils (%) (Auto) % (45.0-75.0) % (45.0-75.0) Lymphocytes (%) (Auto) % (20.0-45.0) % (20.0-45.0) Monocytes (%) (Auto) % (1.0-10.0) % (1.0-10.0) Eosinophils (%) (Auto) % (0.0-3.0) % (0.0-3.0) Basophils (%) (Auto) % (0.0-2.0) % (0.0-2.0) Differential Total Cells Counted 100 Neutrophils % (Manual) 81 % (45-75) H Pending Lymphocytes % (Manual) 7 % (20-45) L Pending Monocytes % (Manual) 3 % (1-10) Eosinophils % (Manual) 5 % (0-3) H Basophils % (Manual) 1 % (0-2) Band Neutrophils 3 % (0-8) Platelet Estimate Decreased L Pending Platelet Morphology Normal Pending Hypochromasia 1+ Anisocytosis 1+ Prothrombin Time 14.8 SEC (9.30-11.50) H Prothromb Time International Ratio 1.4 (0.9-1.1) H Activated Partial Thromboplast Time 53 SEC (23-33) H Sodium Level 132 MMOL/L (136-145) L 130 MMOL/L (136-145) L Potassium Level 3.6 MMOL/L (3.5-5.1) 3.9 MMOL/L (3.5-5.1) Chloride Level 103 MMOL/L (98-107) 102 MMOL/L (98-107) Carbon Dioxide Level 23 MMOL/L (21-32) 20 MMOL/L (21-32) L Anion Gap 6 mmol/L (5-15) 8 mmol/L (5-15) Blood Urea Nitrogen 25 mg/dL (7-18) H 31 mg/dL (7-18) H Creatinine 1.6 MG/DL (0.55-1.30) H 1.7 MG/DL (0.55-1.30) H Estimat Glomerular Filtration Rate 58.9 mL/min (>60) 54.9 mL/min (>60) Glucose Level 110 MG/DL (74-106) H 98 MG/DL (74-106) Calcium Level 6.7 MG/DL (8.5-10.1) L 6.6 MG/DL (8.5-10.1) L Total Bilirubin 0.5 MG/DL (0.2-1.0) 0.5 MG/DL (0.2-1.0) Aspartate Amino Transf (AST/SGOT) 31 U/L (15-37) 27 U/L (15-37) Alanine Aminotransferase (ALT/SGPT) 11 U/L (12-78) L < 6 U/L (12-78) L Alkaline Phosphatase 67 U/L (46-116) 64 U/L (46-116) Total Protein 4.8 G/DL (6.4-8.2) L 4.8 G/DL (6.4-8.2) L Albumin 0.6 G/DL (3.4-5.0) L 0.6 G/DL (3.4-5.0) L Globulin 4.2 g/dL 4.2 g/dL Albumin/Globulin Ratio 0.1 (1.0-2.7) L Amylase Level 27 U/L (25-115) Lipase 49 U/L (73-393) L Arterial Blood pH 7.453 (7.350-7.450) Arterial Blood Partial Pressure CO2 25.8 mmHg (35.0-45.0) L Arterial Blood Partial Pressure O2 91.7 mmHg (75.0-100.0) Arterial Blood HCO3 17.7 mmol/L (22.0-26.0) *L Arterial Blood Oxygen Saturation 96.3 % (95-100) Arterial Blood Base Excess -5.5 (-2-2) L Shayne Test Positive Erythrocyte Sedimentation Rate Pending Phosphorus Level 4.2 MG/DL (2.5-4.9) Magnesium Level 1.4 MG/DL (1.8-2.4) L C-Reactive Protein, Quantitative 26.1 mg/dL (0.00-0.90) H Vancomycin Level Trough 25.2 ug/mL (5.0-12.0) H Microbiology Date/Time Source Procedure Growth Status 07/12/18 22:25 Blood Blood Culture - Preliminary NO GROWTH AFTER 24 HOURS Resulted 07/12/18 22:10 Blood Blood Culture - Preliminary NO GROWTH AFTER 24 HOURS Resulted 07/12/18 23:10 Stool Stool Culture - Preliminary NORMAL FECAL MINNIE. Resulted 07/12/18 23:10 Stool Clostridium difficile Toxin Assay - Final Resulted 07/13/18 04:23 Rectum Received Toney Howe MD July 14, 2018 10:24
--- NOTE | 2018-07-14 10:53 | NUR ---
RD ASSESSMENT & RECOMMENDATIONS SEE CARE ACTIVITY FOR COMPLETE ASSESSMENT DAILY ESTIMATED NEEDS: Needs based on CA, HIV/63kg 30-40 kcals/kg 9815-5977 total kcals 1-2 g protein/kg 63-126 g total protein 25-30 mL/kg 1463-2887 total fluid mLs NUTRITION DIAGNOSIS: * Increased kcal/prot intake needs R/T catabolic dx, underweight status as evidenced by dx of Kaposi's sarcoma, h/o HIV, low BMI per guidelines, @70% of [place] Body Weight CURRENT DIET: CLD PO DIET RECOMMENDATIONS: Diet per MD-> rec SOFT/ LOW FIBER/ LOW RESIDUE diet ADDITIONAL RECOMMENDATIONS: * Calibrated bedscale wt or standing wt for accurate CBW -underweight * Monitor PO intake and tolerance. * Monitor lytes daily, replete as needed (Low mg) * Ensure Clear w/ CLD .
[2018-07-14 11:28] VITALS: BP 93/65
--- NOTE | 2018-07-14 12:09 | Consultation ---
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 +subjective fevers, very weak and unable to keep anything down except for little amount of fluid. Tachycardic upon admission and admitted to [facility] Of note, patient admitted here from 06/12 with weakness, diarrhea. Found to have Cdiff. In the hospital he refused some dosages of oral vancomycin Also patient patient admitted here from 05/12-05/22 w/ sepsis, fever,n /v. There was suspicion for recurrence of Castleman's disease and there was plan for excisional biopsy as well as bone marrow biopsy but patient refused and was discharge home to follow up with his HIV and heme-onc provider. Also admitted Oct 2017 with N/V, poor appetite and fever and was found to have pancreatitis Denies cough, WHATLEY upon admission. Allergies: Coded Allergies: No Known Allergies (Unverified , 10/21/17) Medication History Scheduled Dolutegravir Sodium (Tivicay), 50 MG ORAL DAILY, (Reported) Emtricitabine/Tenofovir (Truvada 200 mg-300 mg Tablet), 1 TAB ORAL DAILY, ( Reported) Patient History Healthcare decision maker Resuscitation status Full Code Advanced Directive on File Patient History Narrative PMhx: as above Shx:The patient is single and lives with his mother. The patient admits to occasional tobacco use. The patient denies alcohol use. Fhx: non contributory Review of Systems All Other Systems: negative except mentioned in HPI Physical Exam Physical Exam Narrative GENERAL: The patient is thin-appearing male, in no apparent distress. HEENT: Eyes, pupils equal and responsive to light and accommodation. Extraocular movements are intact. NECK: Supple without lymphadenopathy. CHEST: Lungs are clear to auscultation bilaterally without wheezes or rales. CARDIOVASCULAR: Tachycardic, regular rhythm. S1 and S2 are normal without murmurs, rubs, or gallops. ABDOMEN: Soft, nontender, nondistended. Positive bowel sounds. No evidence of hepatosplenomegaly. Currently, no rebound or guarding noted. EXTREMITIES: Negative for clubbing, cyanosis, or edema. NEUROLOGIC: Cranial nerves II through XII are grossly intact without focal deficits. Motor strength is 5/5 bilaterally intact. Deep tendon reflexes are 2+ plantar. Last 24 Hour Vital Signs Date Time Temp Pulse Resp B/P (MAP) Pulse Ox O2 Delivery O2 Flow Rate FiO2 07/14/18 11:28 98.6 151 20 93/65 (74) 100 151 07/14/18 10:34 98.9 07/14/18 09:36 151 116/70 07/14/18 08:00 98.9 151 20 116/70 (85) 100 151 07/14/18 08:00 Room Air 07/14/18 08:00 149 07/14/18 04:00 98.8 157 20 144/73 (96) 92 157 07/14/18 04:00 Room Air 07/14/18 04:00 160 07/14/18 00:00 Room Air 07/14/18 00:00 100.0 153 20 112/61 (78) 98 117 07/14/18 00:00 157 07/13/18 20:33 117 07/13/18 20:00 Room Air 07/13/18 20:00 98.1 117 20 93/63 (73) 92 117 07/13/18 18:00 118 100/59 07/13/18 16:00 99.3 124 20 92/62 (72) 97 124 07/13/18 16:00 127 07/13/18 16:00 Room Air 07/13/18 13:56 99.0 07/13/18 12:00 100.6 120 20 91/50 (64) 100 120 07/13/18 12:00 Room Air 07/13/18 11:52 117 Intake and Output 07/13/18 07/14/18 19:00 07:00 Intake Total 2173.333 ml 1457.500 ml Balance 2173.333 ml 1457.500 ml Intake Oral 950 ml 500 ml IV Total 1223.333 ml 957.500 ml # Voids 3 # Bowel Movements 7 9 Laboratory Tests Test 07/13/18 15:36 07/13/18 21:46 07/14/18 08:55 White Blood Count 10.9 K/UL (4.8-10.8) H 12.5 K/UL (4.8-10.8) H Red Blood Count 2.78 M/UL (4.70-6.10) L 2.51 M/UL (4.70-6.10) L Hemoglobin 7.4 G/DL (14.2-18.0) L 6.9 G/DL (14.2-18.0) *L Hematocrit 21.9 % (42.0-52.0) L 20.7 % (42.0-52.0) L Mean Corpuscular Volume 79 FL (80-99) L 82 FL (80-99) Mean Corpuscular Hemoglobin 26.6 PG (27.0-31.0) L 27.3 PG (27.0-31.0) Mean Corpuscular Hemoglobin Concent 33.7 G/DL (32.0-36.0) 33.2 G/DL (32.0-36.0) Red Cell Distribution Width 20.3 % (11.6-14.8) H 21.3 % (11.6-14.8) H Platelet Count 37 K/UL (150-450) L 30 K/UL (150-450) L Mean Platelet Volume 6.7 FL (6.5-10.1) 7.0 FL (6.5-10.1) Neutrophils (%) (Auto) % (45.0-75.0) % (45.0-75.0) Lymphocytes (%) (Auto) % (20.0-45.0) % (20.0-45.0) Monocytes (%) (Auto) % (1.0-10.0) % (1.0-10.0) Eosinophils (%) (Auto) % (0.0-3.0) % (0.0-3.0) Basophils (%) (Auto) % (0.0-2.0) % (0.0-2.0) Differential Total Cells Counted 100 Neutrophils % (Manual) 81 % (45-75) H Pending Lymphocytes % (Manual) 7 % (20-45) L Pending Monocytes % (Manual) 3 % (1-10) Eosinophils % (Manual) 5 % (0-3) H Basophils % (Manual) 1 % (0-2) Band Neutrophils 3 % (0-8) Platelet Estimate Decreased L Pending Platelet Morphology Normal Pending Hypochromasia 1+ Anisocytosis 1+ Prothrombin Time 14.8 SEC (9.30-11.50) H Prothromb Time International Ratio 1.4 (0.9-1.1) H Activated Partial Thromboplast Time 53 SEC (23-33) H Sodium Level 132 MMOL/L (136-145) L 130 MMOL/L (136-145) L Potassium Level 3.6 MMOL/L (3.5-5.1) 3.9 MMOL/L (3.5-5.1) Chloride Level 103 MMOL/L (98-107) 102 MMOL/L (98-107) Carbon Dioxide Level 23 MMOL/L (21-32) 20 MMOL/L (21-32) L Anion Gap 6 mmol/L (5-15) 8 mmol/L (5-15) Blood Urea Nitrogen 25 mg/dL (7-18) H 31 mg/dL (7-18) H Creatinine 1.6 MG/DL (0.55-1.30) H 1.7 MG/DL (0.55-1.30) H Estimat Glomerular Filtration Rate 58.9 mL/min (>60) 54.9 mL/min (>60) Glucose Level 110 MG/DL (74-106) H 98 MG/DL (74-106) Calcium Level 6.7 MG/DL (8.5-10.1) L 6.6 MG/DL (8.5-10.1) L Total Bilirubin 0.5 MG/DL (0.2-1.0) 0.5 MG/DL (0.2-1.0) Aspartate Amino Transf (AST/SGOT) 31 U/L (15-37) 27 U/L (15-37) Alanine Aminotransferase (ALT/SGPT) 11 U/L (12-78) L < 6 U/L (12-78) L Alkaline Phosphatase 67 U/L (46-116) 64 U/L (46-116) Total Protein 4.8 G/DL (6.4-8.2) L 4.8 G/DL (6.4-8.2) L Albumin 0.6 G/DL (3.4-5.0) L 0.6 G/DL (3.4-5.0) L Globulin 4.2 g/dL 4.2 g/dL Albumin/Globulin Ratio 0.1 (1.0-2.7) L Amylase Level 27 U/L (25-115) Lipase 49 U/L (73-393) L Arterial Blood pH 7.453 (7.350-7.450) Arterial Blood Partial Pressure CO2 25.8 mmHg (35.0-45.0) L Arterial Blood Partial Pressure O2 91.7 mmHg (75.0-100.0) Arterial Blood HCO3 17.7 mmol/L (22.0-26.0) *L Arterial Blood Oxygen Saturation 96.3 % (95-100) Arterial Blood Base Excess -5.5 (-2-2) L Shayne Test Positive Erythrocyte Sedimentation Rate 130 MM/HR (0-15) H Phosphorus Level 4.2 MG/DL (2.5-4.9) Magnesium Level 1.4 MG/DL (1.8-2.4) L C-Reactive Protein, Quantitative 26.1 mg/dL (0.00-0.90) H Vancomycin Level Trough 25.2 ug/mL (5.0-12.0) H Height (Feet): 6 Height (Inches): 0.00 Weight (Pounds): 125 Medications Current Medications Medications (Trade) Dose Ordered Sig/Yessica Route PRN Reason Start Time Stop Time Status Last Admin Dose Admin Acetaminophen (Tylenol) 650 mg Q4H PRN ORAL fever 07/13/18 13:45 08/11/18 21:44 07/13/18 13:26 Dextrose (Dextrose 50%) 25 ml Q30M PRN IV Hypoglycemia 07/13/18 10:15 08/11/18 21:44 Dextrose (Dextrose 50%) 50 ml Q30M PRN IV Hypoglycemia 07/13/18 10:15 08/11/18 21:44 Dextrose/Sodium Chloride 1,000 ml @ 100 mls/hr Q10H IV 07/13/18 10:00 08/11/18 21:43 07/14/18 05:24 Diphenhydramine HCl (Benadryl) 25 mg Q6H PRN ORAL Itching/Pruritis 07/13/18 15:45 08/11/18 21:44 Metoprolol Tartrate (Lopressor) 25 mg BID ORAL 07/13/18 18:00 08/12/18 07:59 07/14/18 09:36 Mirtazapine (Remeron) 15 mg BEDTIME ORAL 07/13/18 21:00 08/12/18 20:59 07/13/18 21:00 Morphine Sulfate (Morphine Sulfate) 2 mg Q4H PRN IVP severe Pain (Pain Scale 7-10) 07/13/18 13:45 07/19/18 21:44 07/14/18 10:04 Nitroglycerin (Ntg) 0.4 mg Q5M X 3 DOSES PRN SL Prn Chest Pain 07/13/18 10:00 08/11/18 21:44 Ondansetron HCl (Zofran) 4 mg Q6H PRN IVP Nausea & Vomiting 07/13/18 15:45 08/11/18 21:44 07/13/18 18:19 Patient Own Medication (Patient's Own Med) 1 ea DAILY ORAL 07/14/18 09:00 08/13/18 08:59 07/14/18 09:36 Patient Own Medication (Patient's Own Med) 1 ea DAILY ORAL 07/14/18 09:00 08/13/18 08:59 07/14/18 09:36 Piperacillin Sod/ Tazobactam Sod 3.375 gm/Sodium Chloride 110 ml @ 27.5 mls/hr Q8H IVPB 07/13/18 12:00 07/20/18 11:59 07/14/18 05:25 Polyethylene Glycol (Miralax) 17 gm HSPRN PRN ORAL Constipation 07/13/18 21:45 08/11/18 21:44 Temazepam (Restoril) 15 mg HSPRN PRN ORAL Insomnia 07/13/18 21:45 07/19/18 21:44 Trimethoprim/ Sulfamethoxazole (Bactrim-DS) 1 tab DAILY ORAL 07/14/18 09:00 07/20/18 08:59 07/14/18 09:50 Vancomycin HCl (Firvanq) 125 mg FOUR TIMES A DAY ORAL 07/14/18 13:00 07/21/18 12:59 Vancomycin HCl (Vanco rx to dose) 1 ea DAILY PRN MISC Per rx protocol 07/14/18 09:00 08/12/18 07:59 Assessment/Plan Assessment/Plan: Abx: IV Vancomycin 07/12- Zosyn 07/13- Cefepime x1 07/12 Flagyl x1 07/12 Assessment: Sepsis- 2ry to Cdiff and PNA- r/o bacteremia -07/12 Bcx NTD CXR: Interval development of consolidation right upper lobe. Decrease in pleural thickening when compared to prior study Low grade fever Leukocytosis, increased Tachycardia- r/o PE -Echo: Right ventricular enlargement with basal segments akinesia and preserved apical segment, possible Hayes sign suggestive of pulmonary embolism.Aortic valve calcification with normal cusp excursion. Recurrent Cdiff- ?compliance to previous oral vancomycin (while in the hospital he refused some dosages; unclear if finished course at [facility]) -07/12 Cdiff + stool cx: normal fecal phi Acute anemia- suspect GIB given melanotic stools Thrombocytopenia REENA on CKD Diffuse lymphadenopathy/multiple systemic symptoms- Ddx: CMV disease (ie colitis ), Diffuse MAC, recurrente Castleman, HIV related, lymphoma; refused excisional biopsy in the past -05/18 s/p L axillary lymph node biopsy -path fragments of benign lymph node with pronounced polytypic plasmacytosis; focally + HHV8. 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 -05/16/18 CT chest: Mediastinal, axillary, and supraclavicular lymphadenopathy , enlarged compared to the prior CT of the chest. Largest left axillary node measures 3.4 x 2.4 cm. Largest supraclavicular node on the left measures 3.8 x 2.8 cm. Largest mediastinal nodes include a 2.2 x 1.6 cm pretracheal node and a 2.3 x 1.6 cm subcarinal node. Small layering right pleural effusion with fluid in the minor fissure. Kasie-bronchovascular groundglass haziness and nodularity in the right lower lobe. Scattered paraseptal emphysematous changes, predominantly in the upper lung zones. -05/16/18 CT abd/p: Diffuse edema and haziness throughout the mesenteric root. Not significantly changed compared to the visualized portions of the mesenteric root in the prior CT of the chest dated 10/22/17. Mesenteric, retroperitoneal, and inguinal lymphadenopathy. Largest retroperitoneal node measures 3.1 x 2.5 x 2.0 cm to left of the IVC (series 8 image 56, series 10 image 23). Largest left inguinal left node measures 2.9 x 2.5 cm (series 8 image 90). Mild fluid distention and air-fluid levels throughout the colon, which may suggest mild colitis and/or diarrheal disease. No evidence of bowel obstruction. Cholelithiasis without gallbladder wall thickening or ductal dilatation. Scattered subcentimeter hypodensities throughout the spleen, possibly tiny simple cysts. Subcentimeter simple-appearing left renal cortical cysts. Mild urinary bladder wall thickening, most likely related to underdistention. -CT head: . Opacification of the right maxillary sinus, right frontal sinus , and mucosal thickening throughout the ethmoid air cells and left maxillary sinus, suggestive of sinusitis. Partial opacification of the inferior posterior aspect of the left mastoid air cells, suggesting small left mastoid effusion. 04/2018- Cr Ag , T spot, CMV PCR, CMV IgM neg - 10/22/17- CT show reticular opacity and significant lymphadenopathy 10/23/17 - CT abd/pel Lymphadenopathy, Enlarged Pancrease mild B/L hydronephrosis -Blasto, Histo, CrAg neg 11/21/16 - Quantiferon negative (Out Side lab) Recent Cdiff Colitis -06/12 Cdiff toxin A/B + -04/2018 Cdiff neg -stool cx normal phi - O and P neg x3 HIV/AIDS- questionable compliance to ARV (dx 1999)- on Truvada and Dolutegravir 05/2018HIV VL 260, RPR neg, GC/CL neg -04/2018 Cd4 64 (9.1%); VL 100 ?decreased due to non compliance, however low viremia (will expect higher viremia if non compliance) -10/2017 HIV VL ND, CD4 87 (12.4%) -09/01/17 - CD4 192 and VL - ND (Out Side labs) -no hx of resistance ; previously on Truvada, Reyataz and Norvir -Has been above 200 in the past. Came down with Chemo hx pancreatitis 10/2017 hx of Kaposi's sarcoma/Castleman's disease s/p chemotherapy - S/P Chemo ending 07/17/17 Last PET 08/12/17 - show stable/not worsening lymphadenopathy Hep C+ -VL ND hx of Chronic Hep B, VL <15 09/01/17 RPR, GC/CL : negative hx of DVT CKD Plan: -Start PO vancomycin 125mg qid -if diarrhea not improving, will switch Fidaxomycin -Continue empiric IV Vancomycin #3 and ZOsyn #2 (abx d#3) for PNA pending Sp cx -f/u cx -Monitor CBC/CMP, temperatures -Will need excisional biopsy and bone marrow biopsy- high suspicion for recurrence of Castleman's disease - will reattempt once more stabilized- in the past refused twice -URgent VQ scan to eval for PE given 2d Echo findings -CD4 am -Continue ARV: TRuvada +Dolutegravir -asked lab to get HIV genotype results that were done last admission -Continue prophylactic Bactrim and weekly Azithromycin for PCP and MAC respectively -GI eval -Heme onc eval -sp cx Thank you for this consolation. Will continue to follow along with you. Discussed with Maite Vann M.D. July 14, 2018 12:09
--- NOTE | 2018-07-14 12:12 | GI Initial Consult Note ---
History of Present Illness General Date patient seen: July 14, 2018 Time patient seen: 12:07 Reason for Hospitalization: Nausea, Vomiting, and Diarrhea Referring physician: GOPI CACERES Reason for Consultation: DIARRHEA Present Illness HPI This is an unfortunate 37-year-old male with a history of AIDS with Castleman Syndrome. CD4 count is low. He was just admitted here and was discharged 3 weeks ago for abdominal pain, diarrhea, C. difficile, sepsis. He presents with chief complaint of abdominal pain with nausea vomiting and diarrhea. Vomiting' s for last 3 days. Diarrhea is profuse and ongoing for a week. He said his melanotic. Subjective fever and felt very weak. Unable to keep anything down except for little bit of fluid. Denies trauma. Similar symptom in the past. Pain is sharp and crampy. 8 out of 10. No radiation. Pain is diffuse. GI consulted for reported nausea vomiting and diarrhea. Patient seen, awake alert and oriented x4 reported previous episodes of nausea and vomiting and diarrhea for approximately 1 day. Patient denied any hematemesis or coffee- ground, denied any hematochezia or melena. The patient states that above symptoms have improved, denies any abdominal pain. Patient denies any changes in dietary habits or recent travels. Patient stated he had a endoscopy and colonoscopy within the last year. He states the findings were unremarkable. Patient positive for Cdiff, has negative stool culture. Labs today; Hgb 6.9. Home Meds Reported Medications Emtricitabine/Tenofovir (Truvada 200 mg-300 mg Tablet) 1 Each Tablet, 1 TAB ORAL DAILY, TAB 06/12/18 Dolutegravir Sodium (Tivicay) 50 Mg Tablet, 50 MG ORAL DAILY, TAB 05/12/18 Med list reviewed/reconciled: Yes Allergies: Coded Allergies: No Known Allergies (Unverified , 10/21/17) Patient History History Provided By: Patient, Medical Record PMH Narrative Past Medical History: see triage record, old chart reviewed, HIV Past Surgical History: other Pertinent Family History: none Social History: Denies: smoking Immunizations: other Reviewed Nursing Documentation: PMH: Agreed; PSxH: Agreed Nursing Documentation-PMH Hx Hypertension: Yes Hx Cancer: No Hx Gastrointestinal Problems: Yes - N/V Hx Neurological Problems: No Social History: Denies: smoking, alcohol use, drug use, other Review of Systems All Other Systems: negative except mentioned in HPI Physical Exam Vital Signs Date Time Temp Pulse Resp B/P (MAP) Pulse Ox O2 Delivery O2 Flow Rate FiO2 07/12/18 21:25 99.0 150 19 93/74 (80) 99 Room Air Sp02 EP Interpretation: reviewed, normal Labs Laboratory Tests Test 07/13/18 15:36 07/13/18 21:46 07/14/18 08:55 White Blood Count 10.9 K/UL (4.8-10.8) H 12.5 K/UL (4.8-10.8) H Red Blood Count 2.78 M/UL (4.70-6.10) L 2.51 M/UL (4.70-6.10) L Hemoglobin 7.4 G/DL (14.2-18.0) L 6.9 G/DL (14.2-18.0) *L Hematocrit 21.9 % (42.0-52.0) L 20.7 % (42.0-52.0) L Mean Corpuscular Volume 79 FL (80-99) L 82 FL (80-99) Mean Corpuscular Hemoglobin 26.6 PG (27.0-31.0) L 27.3 PG (27.0-31.0) Mean Corpuscular Hemoglobin Concent 33.7 G/DL (32.0-36.0) 33.2 G/DL (32.0-36.0) Red Cell Distribution Width 20.3 % (11.6-14.8) H 21.3 % (11.6-14.8) H Platelet Count 37 K/UL (150-450) L 30 K/UL (150-450) L Mean Platelet Volume 6.7 FL (6.5-10.1) 7.0 FL (6.5-10.1) Neutrophils (%) (Auto) % (45.0-75.0) % (45.0-75.0) Lymphocytes (%) (Auto) % (20.0-45.0) % (20.0-45.0) Monocytes (%) (Auto) % (1.0-10.0) % (1.0-10.0) Eosinophils (%) (Auto) % (0.0-3.0) % (0.0-3.0) Basophils (%) (Auto) % (0.0-2.0) % (0.0-2.0) Differential Total Cells Counted 100 100 Neutrophils % (Manual) 81 % (45-75) H 59 % (45-75) Lymphocytes % (Manual) 7 % (20-45) L 19 % (20-45) L Monocytes % (Manual) 3 % (1-10) 7 % (1-10) Eosinophils % (Manual) 5 % (0-3) H 7 % (0-3) H Basophils % (Manual) 1 % (0-2) 0 % (0-2) Band Neutrophils 3 % (0-8) 8 % (0-8) Platelet Estimate Decreased L Decreased L Platelet Morphology Normal Normal Hypochromasia 1+ 1+ Anisocytosis 1+ 2+ Prothrombin Time 14.8 SEC (9.30-11.50) H Prothromb Time International Ratio 1.4 (0.9-1.1) H Activated Partial Thromboplast Time 53 SEC (23-33) H Sodium Level 132 MMOL/L (136-145) L 130 MMOL/L (136-145) L Potassium Level 3.6 MMOL/L (3.5-5.1) 3.9 MMOL/L (3.5-5.1) Chloride Level 103 MMOL/L (98-107) 102 MMOL/L (98-107) Carbon Dioxide Level 23 MMOL/L (21-32) 20 MMOL/L (21-32) L Anion Gap 6 mmol/L (5-15) 8 mmol/L (5-15) Blood Urea Nitrogen 25 mg/dL (7-18) H 31 mg/dL (7-18) H Creatinine 1.6 MG/DL (0.55-1.30) H 1.7 MG/DL (0.55-1.30) H Estimat Glomerular Filtration Rate 58.9 mL/min (>60) 54.9 mL/min (>60) Glucose Level 110 MG/DL (74-106) H 98 MG/DL (74-106) Calcium Level 6.7 MG/DL (8.5-10.1) L 6.6 MG/DL (8.5-10.1) L Total Bilirubin 0.5 MG/DL (0.2-1.0) 0.5 MG/DL (0.2-1.0) Aspartate Amino Transf (AST/SGOT) 31 U/L (15-37) 27 U/L (15-37) Alanine Aminotransferase (ALT/SGPT) 11 U/L (12-78) L < 6 U/L (12-78) L Alkaline Phosphatase 67 U/L (46-116) 64 U/L (46-116) Total Protein 4.8 G/DL (6.4-8.2) L 4.8 G/DL (6.4-8.2) L Albumin 0.6 G/DL (3.4-5.0) L 0.6 G/DL (3.4-5.0) L Globulin 4.2 g/dL 4.2 g/dL Albumin/Globulin Ratio 0.1 (1.0-2.7) L Amylase Level 27 U/L (25-115) Lipase 49 U/L (73-393) L Arterial Blood pH 7.453 (7.350-7.450) Arterial Blood Partial Pressure CO2 25.8 mmHg (35.0-45.0) L Arterial Blood Partial Pressure O2 91.7 mmHg (75.0-100.0) Arterial Blood HCO3 17.7 mmol/L (22.0-26.0) *L Arterial Blood Oxygen Saturation 96.3 % (95-100) Arterial Blood Base Excess -5.5 (-2-2) L Shayne Test Positive Polychromasia 1+ Erythrocyte Sedimentation Rate 130 MM/HR (0-15) H Phosphorus Level 4.2 MG/DL (2.5-4.9) Magnesium Level 1.4 MG/DL (1.8-2.4) L C-Reactive Protein, Quantitative 26.1 mg/dL (0.00-0.90) H Vancomycin Level Trough 25.2 ug/mL (5.0-12.0) H General Appearance: well appearing, no apparent distress, alert, thin Head: normocephalic EENT: PERRL/EOMI, normal ENT inspection Neck: supple Respiratory: normal breath sounds, no respiratory distress Cardiovascular: normal rate Gastrointestinal: normal inspection, non tender, soft, normal bowel sounds, non -distended Rectal: deferred Genitourinary: deferred Musculoskeletal: normal inspection, back normal Neurologic: normal inspection, alert, oriented x3, responsive Psychiatric: normal inspection, judgement/insight normal, memory normal Skin: normal inspection, normal color, no rash, warm/dry, palpation normal, well hydrated Lymphatic: normal inspection, no adenopathy Current Medications Current Medications Medications (Trade) Dose Ordered Sig/Yessica Route PRN Reason Start Time Stop Time Status Last Admin Dose Admin Acetaminophen (Tylenol) 650 mg Q4H PRN ORAL fever 07/13/18 13:45 08/11/18 21:44 07/13/18 13:26 Dextrose (Dextrose 50%) 25 ml Q30M PRN IV Hypoglycemia 07/13/18 10:15 08/11/18 21:44 Dextrose (Dextrose 50%) 50 ml Q30M PRN IV Hypoglycemia 07/13/18 10:15 08/11/18 21:44 Dextrose/Sodium Chloride 1,000 ml @ 100 mls/hr Q10H IV 07/13/18 10:00 08/11/18 21:43 07/14/18 05:24 Diphenhydramine HCl (Benadryl) 25 mg Q6H PRN ORAL Itching/Pruritis 07/13/18 15:45 08/11/18 21:44 Metoprolol Tartrate (Lopressor) 25 mg BID ORAL 07/13/18 18:00 08/12/18 07:59 07/14/18 09:36 Mirtazapine (Remeron) 15 mg BEDTIME ORAL 07/13/18 21:00 08/12/18 20:59 07/13/18 21:00 Morphine Sulfate (Morphine Sulfate) 2 mg Q4H PRN IVP severe Pain (Pain Scale 7-10) 07/13/18 13:45 07/19/18 21:44 07/14/18 10:04 Nitroglycerin (Ntg) 0.4 mg Q5M X 3 DOSES PRN SL Prn Chest Pain 07/13/18 10:00 08/11/18 21:44 Ondansetron HCl (Zofran) 4 mg Q6H PRN IVP Nausea & Vomiting 07/13/18 15:45 08/11/18 21:44 07/13/18 18:19 Patient Own Medication (Patient's Own Med) 1 ea DAILY ORAL 07/14/18 09:00 08/13/18 08:59 07/14/18 09:36 Patient Own Medication (Patient's Own Med) 1 ea DAILY ORAL 07/14/18 09:00 08/13/18 08:59 07/14/18 09:36 Piperacillin Sod/ Tazobactam Sod 3.375 gm/Sodium Chloride 110 ml @ 27.5 mls/hr Q8H IVPB 07/13/18 12:00 07/20/18 11:59 07/14/18 12:02 Polyethylene Glycol (Miralax) 17 gm HSPRN PRN ORAL Constipation 07/13/18 21:45 08/11/18 21:44 Temazepam (Restoril) 15 mg HSPRN PRN ORAL Insomnia 07/13/18 21:45 07/19/18 21:44 Trimethoprim/ Sulfamethoxazole (Bactrim-DS) 1 tab DAILY ORAL 07/14/18 09:00 07/20/18 08:59 07/14/18 09:50 Vancomycin HCl (Firvanq) 125 mg FOUR TIMES A DAY ORAL 07/14/18 13:00 07/21/18 12:59 Vancomycin HCl (Vanco rx to dose) 1 ea DAILY PRN MISC Per rx protocol 07/14/18 09:00 08/12/18 07:59 GI: Plan Problems: (1) Dehydration (2) Electrolyte imbalance (3) Castleman disease (4) HIV disease (5) Anemia (6) C. difficile colitis (7) Nausea, vomiting, and diarrhea (8) Protein-calorie malnutrition, severe Plan refused GI procedures cdiff positive ok to advance diet IV/PO hydration + electrolyte correction zofran prn monitor H&H, prn transfusions abx venofer follow labs OB stool r/o GI bleed Discussed with Dr. Grande. Thank you for this patient referral, we will follow. The patient was seen and examined at bedside and all new and available data was reviewed in the patients chart. I agree with the above findings, impression and plan. (Patient seen earlier today. Signature stamp does not reflect patient encounter time.). - MD Eufemia Avalos AnhLeonard DE LEÓN July 14, 2018 12:12
[2018-07-14] MEDS: Vancomycin oral 125mg/2.5ml ORAL SCH ×3 (12:58→21:03)
--- NOTE | 2018-07-14 13:14 | Diagnostic Imaging Report ---
EXAM: XR Chest, 1 View CLINICAL HISTORY: SOB TECHNIQUE: Frontal view of the chest. COMPARISON: 06/13/18 FINDINGS: Lungs: Multiple development of consolidation noted in the right upper lobe. There is some thickening of the pleura marking on the right. This is decreased from the prior study there is fluid again noted in the fissure. Pleural space: Unremarkable. No pneumothorax. Heart: Unremarkable. No cardiomegaly. Mediastinum: Unremarkable. Bones/joints: Unremarkable. IMPRESSION: Interval development of consolidation right upper lobe. Decrease in pleural thickening when compared to prior study
--- NOTE | 2018-07-14 13:56 | NUR ---
Regarding V/Q Scan: Spoke with TRES Mims, pt is not stable enough to leave unit for V/Q Scan. Will follow up tomorrow.
--- NOTE | 2018-07-14 15:05 | NUR ---
NURSE NOTES: DR MARTY Ramírez [facility] CAME TO SEE THE PT MADE HER AWARE AND NOTIFIED REGARDING MG LEVEL IS 1.4 AND HGB 6.9.AND PT WILL HAVE BLOOD TRANSFUSION NOW AND POSSIBLE V-Q SCAN WILL BE DONE UNTIL TOMORROW BECAUSE GLADYS HAYES IS LEAVING AT 1600 PM.[place] STATED IS OK.PT HR 130,S ALSO [place] FERGUSON MADE AWARE AND NOTIFIED.WILL CONT TO MONITOR.
--- NOTE | 2018-07-14 15:20 | NUR ---
NURSE NOTES: PT STARTED ON BLOOD TRANSFUSION PER M.D ORDERS.PT HGB 6.9.INFUSING WELL BLOOD TRANSFUSION.NO S/S OF ANY ADVERSE REACTION FROM BLOOD TRANSFUSION NOTED.WILL CONT TO MONITOR.
[2018-07-14 16:00] VITALS: BP 90/55
--- NOTE | 2018-07-14 16:03 | Cardiology Report ---
APPROVED REPORT EKG Measurement Heart [id number] CT 104P50 [id number] Sinus tachycardia with short CT Left axis deviation Abnormal ECG
[2018-07-14] MEDS ORDERED: D5W 275ml ONE (17:49)
[2018-07-14] MEDS ORDERED: D5NS 1000ml IV ONE (17:49)
[2018-07-14] MEDS ORDERED: NS 275ml ONE (17:49)
[2018-07-14] MEDS ORDERED: Tubing IV Secondary IV ONE (17:49)
--- NOTE | 2018-07-14 17:50 | NUR ---
NURSE NOTES: BLOOD TRANSFUSION COMPLETED.PT TOLERATED WELL ,NO S/S OF ANY ADVERSE REACTIONS FROM BLOOD TRANSFUSION NOTED AT THIS TIME.WILL CONT TO MONITOR.
--- NOTE | 2018-07-14 18:18 | Internal Med Progress Note ---
Subjective Date of Service: July 14, 2018 Physician Name Adam Padron Attending Physician Alberto Gtz MD Current Medications Medications (Trade) Dose Ordered Sig/Yessica Route PRN Reason Start Time Stop Time Status Last Admin Dose Admin Acetaminophen (Tylenol) 650 mg Q4H PRN ORAL fever 07/13/18 13:45 08/11/18 21:44 07/14/18 16:04 Dextrose (Dextrose 50%) 25 ml Q30M PRN IV Hypoglycemia 07/13/18 10:15 08/11/18 21:44 Dextrose (Dextrose 50%) 50 ml Q30M PRN IV Hypoglycemia 07/13/18 10:15 08/11/18 21:44 Dextrose/Sodium Chloride 1,000 ml @ 100 mls/hr Q10H IV 07/13/18 10:00 08/11/18 21:43 07/14/18 16:43 Diphenhydramine HCl (Benadryl) 25 mg Q6H PRN ORAL Itching/Pruritis 07/13/18 15:45 08/11/18 21:44 Magnesium Sulfate 100 ml @ 100 mls/hr Q1H IVPB 07/14/18 18:15 07/14/18 20:14 UNV Metoprolol Tartrate (Lopressor) 25 mg BID ORAL 07/13/18 18:00 08/12/18 07:59 07/14/18 09:36 Mirtazapine (Remeron) 15 mg BEDTIME ORAL 07/13/18 21:00 08/12/18 20:59 07/13/18 21:00 Morphine Sulfate (Morphine Sulfate) 2 mg Q4H PRN IVP severe Pain (Pain Scale 7-10) 07/13/18 13:45 07/19/18 21:44 07/14/18 10:04 Nitroglycerin (Ntg) 0.4 mg Q5M X 3 DOSES PRN SL Prn Chest Pain 07/13/18 10:00 08/11/18 21:44 Ondansetron HCl (Zofran) 4 mg Q6H PRN IVP Nausea & Vomiting 07/13/18 15:45 08/11/18 21:44 07/13/18 18:19 Patient Own Medication (Patient's Own Med) 1 ea DAILY ORAL 07/14/18 09:00 08/13/18 08:59 07/14/18 09:36 Patient Own Medication (Patient's Own Med) 1 ea DAILY ORAL 07/14/18 09:00 08/13/18 08:59 07/14/18 09:36 Piperacillin Sod/ Tazobactam Sod 3.375 gm/Sodium Chloride 110 ml @ 27.5 mls/hr Q8H IVPB 07/13/18 12:00 07/20/18 11:59 07/14/18 12:02 Polyethylene Glycol (Miralax) 17 gm HSPRN PRN ORAL Constipation 07/13/18 21:45 08/11/18 21:44 Temazepam (Restoril) 15 mg HSPRN PRN ORAL Insomnia 07/13/18 21:45 07/19/18 21:44 Trimethoprim/ Sulfamethoxazole (Bactrim-DS) 1 tab DAILY ORAL 07/14/18 09:00 07/20/18 08:59 07/14/18 09:50 Vancomycin HCl (Firvanq) 125 mg FOUR TIMES A DAY ORAL 07/14/18 13:00 07/21/18 12:59 07/14/18 12:58 Vancomycin HCl (Vanco rx to dose) 1 ea DAILY PRN MISC Per rx protocol 07/14/18 09:00 08/12/18 07:59 Vancomycin HCl 1 gm/Dextrose 275 ml @ 183.708 mls/hr Q24H IVPB 07/14/18 21:00 07/19/18 20:59 Allergies: Coded Allergies: No Known Allergies (Unverified , 10/21/17) ROS Limited/Unobtainable: No Constitutional: Reports: no symptoms HEENT: Reports: no symptoms Cardiovascular: Reports: no symptoms Respiratory: Reports: no symptoms Gastrointestinal/Abdominal: Reports: no symptoms Genitourinary: Reports: no symptoms Neurologic/Psychiatric: Reports: no symptoms Subjective 37 YO M with HIV admitted with abdominal pain, nausea and vomiting. Now clostridium difficile diarrhea. Cover for Int Med-Dr Gtz. Objective Last Vital Signs Date Time Temp Pulse Resp B/P (MAP) Pulse Ox O2 Delivery O2 Flow Rate FiO2 07/14/18 18:00 120 90/55 07/14/18 16:34 98.6 07/14/18 16:00 Room Air 07/14/18 16:00 21 100 Laboratory Tests Test 07/13/18 21:46 07/14/18 08:55 Arterial Blood pH 7.453 (7.350-7.450) Arterial Blood Partial Pressure CO2 25.8 mmHg (35.0-45.0) L Arterial Blood Partial Pressure O2 91.7 mmHg (75.0-100.0) Arterial Blood HCO3 17.7 mmol/L (22.0-26.0) *L Arterial Blood Oxygen Saturation 96.3 % (95-100) Arterial Blood Base Excess -5.5 (-2-2) L Shayne Test Positive White Blood Count 12.5 K/UL (4.8-10.8) H Red Blood Count 2.51 M/UL (4.70-6.10) L Hemoglobin 6.9 G/DL (14.2-18.0) *L Hematocrit 20.7 % (42.0-52.0) L Mean Corpuscular Volume 82 FL (80-99) Mean Corpuscular Hemoglobin 27.3 PG (27.0-31.0) Mean Corpuscular Hemoglobin Concent 33.2 G/DL (32.0-36.0) Red Cell Distribution Width 21.3 % (11.6-14.8) H Platelet Count 30 K/UL (150-450) L Mean Platelet Volume 7.0 FL (6.5-10.1) Neutrophils (%) (Auto) % (45.0-75.0) Lymphocytes (%) (Auto) % (20.0-45.0) Monocytes (%) (Auto) % (1.0-10.0) Eosinophils (%) (Auto) % (0.0-3.0) Basophils (%) (Auto) % (0.0-2.0) Differential Total Cells Counted 100 Neutrophils % (Manual) 59 % (45-75) Lymphocytes % (Manual) 19 % (20-45) L Monocytes % (Manual) 7 % (1-10) Eosinophils % (Manual) 7 % (0-3) H Basophils % (Manual) 0 % (0-2) Band Neutrophils 8 % (0-8) Platelet Estimate Decreased L Platelet Morphology Normal Polychromasia 1+ Hypochromasia 1+ Anisocytosis 2+ Erythrocyte Sedimentation Rate 130 MM/HR (0-15) H Sodium Level 130 MMOL/L (136-145) L Potassium Level 3.9 MMOL/L (3.5-5.1) Chloride Level 102 MMOL/L (98-107) Carbon Dioxide Level 20 MMOL/L (21-32) L Anion Gap 8 mmol/L (5-15) Blood Urea Nitrogen 31 mg/dL (7-18) H Creatinine 1.7 MG/DL (0.55-1.30) H Estimat Glomerular Filtration Rate 54.9 mL/min (>60) Glucose Level 98 MG/DL (74-106) Calcium Level 6.6 MG/DL (8.5-10.1) L Phosphorus Level 4.2 MG/DL (2.5-4.9) Magnesium Level 1.4 MG/DL (1.8-2.4) L Total Bilirubin 0.5 MG/DL (0.2-1.0) Aspartate Amino Transf (AST/SGOT) 27 U/L (15-37) Alanine Aminotransferase (ALT/SGPT) < 6 U/L (12-78) L Alkaline Phosphatase 64 U/L (46-116) C-Reactive Protein, Quantitative 26.1 mg/dL (0.00-0.90) H Total Protein 4.8 G/DL (6.4-8.2) L Albumin 0.6 G/DL (3.4-5.0) L Globulin 4.2 g/dL Vancomycin Level Trough 25.2 ug/mL (5.0-12.0) H Microbiology Date/Time Source Procedure Growth Status 07/12/18 22:25 Blood Blood Culture - Preliminary NO GROWTH AFTER 24 HOURS Resulted 07/12/18 22:10 Blood Blood Culture - Preliminary NO GROWTH AFTER 24 HOURS Resulted 07/12/18 23:10 Stool Stool Culture - Preliminary NORMAL FECAL MINNIE. Resulted 07/12/18 23:10 Stool Clostridium difficile Toxin Assay - Final Resulted 07/13/18 04:23 Rectum Received Intake and Output 07/13/18 07/14/18 18:59 06:59 Intake Total 2073.333 ml 1557.500 ml Balance 2073.333 ml 1557.500 ml Intake Oral 950 ml 500 ml IV Total 1123.333 ml 1057.500 ml # Voids 3 # Bowel Movements 7 9 Objective PHYSICAL EXAMINATION: GENERAL: The patient is thin-appearing male, in no apparent distress. HEENT: Eyes, pupils equal and responsive to light and accommodation. Extraocular movements are intact. NECK: Supple without lymphadenopathy. CHEST: Lungs are clear to auscultation bilaterally without wheezes or rales. CARDIOVASCULAR: Tachycardic, regular rhythm. S1 and S2 are normal without murmurs, rubs, or gallops. ABDOMEN: Soft, nontender, nondistended. Positive bowel sounds. No evidence of hepatosplenomegaly. Currently, no rebound or guarding noted. RECTAL: Refused. GENITALIA: Refused. EXTREMITIES: Negative for clubbing, cyanosis, or edema. NEUROLOGIC: Cranial nerves II through XII are grossly intact without focal deficits. Motor strength is 5/5 bilaterally intact. Deep tendon reflexes are 2+ plantar. Assessment/Plan Assessment/Plan ASSESSMENT: This is a 37-year-old male with: 1. Abdominal pain. 2. Nausea with vomiting. 3. Diarrhea. 4. Rectal bleeding. 5. Human immunodeficiency virus. 6. Kaposi's sarcoma. 7. Castleman's disease. 8. Hepatitis B. 9. Clostridium difficile diarrhea TREATMENT: 1. Abdominal pain/nausea/vomiting/rectal bleeding. The patient has history of Clostridium difficile, which was resistant to Flagyl. An Infectious Diseases consultation has been obtained with Dr. Mendoza. A Gastroenterology consultation has been obtained with Dr. Michael Grande. We will follow recommendations of GI and Infectious Diseases. 2. Human immunodeficiency virus. Continue HAART as above. 3. Kaposi's sarcoma. The patient is status post chemotherapy. 4. Castleman's disease. Please see the previous history and physical from previous hospitalization. 5. Hepatitis B. 6. Continue oral vancomycin Adam Padron MD July 14, 2018 18:18
--- NOTE | 2018-07-14 19:15 | NUR ---
HAND-OFF: Report given to .FERNIE JOSHUA.
--- NOTE | 2018-07-14 19:19 | NUR ---
NURSE NOTES: Report received from TRES Mims. Patient seen in bed in semi hernandes position wirh oxygen on 2L/min via NC with sp02 99%. Alert, verbally responsive, able to make needs known. Denies any pain at this time. Continues on IVF of D5 NS at 100cc/hr. Iv site is to right upper arm 22g and left forearm 22g and both is intact. Bed is in lowest position. Call light is within easy reach while in bed. Will Continue to monitor.
[2018-07-14 20:00] VITALS: BP 85/57
[2018-07-14] MEDS ORDERED: Vancomycin 1gm in D5W 275ml IVPB SCH (21:00)
[2018-07-15 00:27] VITALS: BP 91/66
[2018-07-15] MEDS: D5NS 1,000 ML IV SCH ×2 (01:26→13:11)
[2018-07-15] MEDS: Piperacillin/Tazobactam 3.375 GM in NS 110 ML IVPB SCH ×2 (03:22→12:50)
[2018-07-15 04:00] VITALS: BP 105/68
--- NOTE | 2018-07-15 05:25 | NUR ---
NURSE NOTES: Per Anthony, was unable to draw blood from patient. Patient would like to get his blood draw later on today.
--- NOTE | 2018-07-15 06:52 | General Progress Note ---
Assessment/Plan Assessment/Plan: (1) Dehydration (2) Electrolyte imbalance (3) Castleman disease (4) HIV disease (5) Anemia (6) C. difficile colitis (7) Nausea, vomiting, and diarrhea (8) Protein-calorie malnutrition, severe Plan refused GI procedures cdiff positive IV/PO hydration + electrolyte correction zofran prn monitor H&H, prn transfusions, last unit yesterday on po vanco will add iv flagyl recommend dc other abx if ok with ID venofer follow labs OB stool r/o GI bleed Subjective ROS Limited/Unobtainable: Yes Allergies: Coded Allergies: No Known Allergies (Unverified , 10/21/17) Subjective diarrhea Objective Last 24 Hour Vital Signs Date Time Temp Pulse Resp B/P (MAP) Pulse Ox O2 Delivery O2 Flow Rate FiO2 07/15/18 04:00 Room Air 07/15/18 04:00 99.3 140 24 105/68 (80) 100 140 07/15/18 03:18 131 07/15/18 00:27 98.5 122 21 91/66 (74) 99 122 07/15/18 00:00 Room Air 07/14/18 23:33 120 07/14/18 20:00 Room Air 07/14/18 20:00 99.0 120 22 85/57 (66) 100 120 07/14/18 19:10 118 07/14/18 18:00 120 90/55 07/14/18 16:34 98.6 07/14/18 16:00 120 07/14/18 16:00 Room Air 07/14/18 16:00 98.9 115 21 90/55 (67) 100 115 07/14/18 12:00 Room Air 07/14/18 12:00 131 07/14/18 11:28 98.6 151 20 93/65 (74) 100 151 07/14/18 10:34 98.9 07/14/18 09:36 151 116/70 07/14/18 08:00 98.9 151 20 116/70 (85) 100 151 07/14/18 08:00 Room Air 07/14/18 08:00 149 Intake and Output 07/14/18 07/15/18 19:00 07:00 Intake Total 4292.5 ml 2139.990 ml Output Total 1700 ml 700 ml Balance 2592.5 ml 1439.990 ml Intake Oral 2750 ml 500 ml IV Total 1292.5 ml 1639.990 ml Blood Product 250 ml Output Urine Total 1700 ml 700 ml # Bowel Movements 4 2 Laboratory Tests 07/14/18 08:55: White Blood Count 12.5H, Red Blood Count 2.51L, Hemoglobin 6.9*L, Hematocrit 20.7L, Mean Corpuscular Volume 82, Mean Corpuscular Hemoglobin 27.3, Mean Corpuscular Hemoglobin Concent 33.2, Red Cell Distribution Width 21.3H, Platelet Count 30L, Mean Platelet Volume 7.0, Neutrophils (%) (Auto) , Lymphocytes (%) (Auto) , Monocytes (%) (Auto) , Eosinophils (%) (Auto) , Basophils (%) (Auto) , Differential Total Cells Counted 100, Neutrophils % ( Manual) 59, Lymphocytes % (Manual) 19L, Monocytes % (Manual) 7, Eosinophils % ( Manual) 7H, Basophils % (Manual) 0, Band Neutrophils 8, Platelet Estimate DecreasedL, Platelet Morphology Normal, Polychromasia 1+, Hypochromasia 1+, Anisocytosis 2+, Erythrocyte Sedimentation Rate 130H, Sodium Level 130L, Potassium Level 3.9, Chloride Level 102, Carbon Dioxide Level 20L, Anion Gap 8, Blood Urea Nitrogen 31H, Creatinine 1.7H, Estimat Glomerular Filtration Rate 54.9, Glucose Level 98, Calcium Level 6.6L, Phosphorus Level 4.2, Magnesium Level 1.4L, Total Bilirubin 0.5, Aspartate Amino Transf (AST/SGOT) 27, Alanine Aminotransferase (ALT/SGPT) < 6L, Alkaline Phosphatase 64, C-Reactive Protein, Quantitative 26.1H, Total Protein 4.8L, Albumin 0.6L, Globulin 4.2, Vancomycin Level Trough 25.2H Height (Feet): 6 Height (Inches): 0.00 Weight (Pounds): 142 General Appearance: alert EENT: normal ENT inspection Neck: supple Cardiovascular: normal rate Respiratory/Chest: decreased breath sounds Abdomen: normal bowel sounds, non tender, soft Extremities: non-tender Michael Grande MD July 15, 2018 06:52
--- NOTE | 2018-07-15 07:19 | NUR ---
HAND-OFF: Report given to Shireen Ryan RN.
--- NOTE | 2018-07-15 07:20 | NUR ---
NURSE NOTES: Report received from Birdie Roberts RN.Pt awake,in bed noted no resp distress,follows command denies any c/o pain or discomfort,S-Tach on the monitor,IV sites x2,SARAH and LFA both intact,IVF D5NS at 100ml/hr,skin warm and dry,SR up x2 HOB elevated,bed lock in lowest position,will continue with plans of care.
[2018-07-15 08:00] VITALS: BP 97/51
[2018-07-15] MEDS: Metoprolol 25mg tab ORAL SCH ×2 (08:47→17:39)
[2018-07-15] MEDS: TRUVADA ORAL SCH (08:48)
[2018-07-15] MEDS: DOLUTEGRAVIR 50 MG ORAL SCH (08:48)
[2018-07-15] MEDS: Vancomycin oral 125mg/2.5ml ORAL SCH ×4 (08:48→20:33)
[2018-07-15] MEDS: Bactrim-DS 1 tab ORAL SCH (08:48)
[2018-07-15 08:53] LABS: MEAN CORPUSCULAR VOLUME 82 FL (80-99); PLATELET COUNT 15 K/UL (150-450); RED BLOOD COUNT 2.44 M/UL (4.70-6.10); RED CELL DISTRIBUTION WIDTH 19.6 % (11.6-14.8); WHITE BLOOD COUNT 11.6 K/UL (4.8-10.8)
[2018-07-15 08:57] LABS: HEMOGLOBIN 6.7 G/DL (14.2-18.0)
[2018-07-15 09:34] LABS: ALANINE AMINOTRANSFERASE < 6 U/L (12-78); ALBUMIN < 0.6 G/DL (3.4-5.0); ALKALINE PHOSPHATASE 62 U/L (46-116); ANION GAP 8 mmol/L (5-15); ASPARTATE AMINO TRANSFERASE 30 U/L (15-37); BILIRUBIN,TOTAL 0.5 MG/DL (0.2-1.0); BLOOD UREA NITROGEN 37 mg/dL (7-18); CALCIUM 6.4 MG/DL (8.5-10.1); CARBON DIOXIDE 18 MMOL/L (21-32); CHLORIDE 104 MMOL/L (98-107); PHOSPHORUS 4.2 MG/DL (2.5-4.9); POTASSIUM 3.4 MMOL/L (3.5-5.1); SODIUM 130 MMOL/L (136-145)
--- NOTE | 2018-07-15 10:07 | Pulmonology Progress Note ---
Assessment/Plan Problems: (1) Severe sepsis (2) HIV disease (3) Sinus tachycardia (4) Anemia (5) Hepatitis C (6) Hepatitis B (7) Kaposi disease (8) Castleman disease (9) Protein-calorie malnutrition, severe Assessment/Plan prbc times 2 today again f/u ID recommendation CD counts are pending escobedo cultures,a ll negative so far pt refused previously excisional LN biopsy. symptomatic treatment check stool for OB Subjective ROS Limited/Unobtainable: No Constitutional: Reports: no symptoms HEENT: Repors: no symptoms Respiratory: Reports: no symptoms Allergies: Coded Allergies: No Known Allergies (Unverified , 10/21/17) Objective Last 24 Hour Vital Signs Date Time Temp Pulse Resp B/P (MAP) Pulse Ox O2 Delivery O2 Flow Rate FiO2 07/15/18 08:47 133 97/51 07/15/18 08:00 98.6 135 19 97/51 (66) 94 135 07/15/18 04:00 Room Air 07/15/18 04:00 99.3 140 24 105/68 (80) 100 140 07/15/18 03:18 131 07/15/18 00:27 98.5 122 21 91/66 (74) 99 122 07/15/18 00:00 Room Air 07/14/18 23:33 120 07/14/18 20:00 Room Air 07/14/18 20:00 99.0 120 22 85/57 (66) 100 120 07/14/18 19:10 118 07/14/18 18:00 120 90/55 07/14/18 16:34 98.6 07/14/18 16:00 120 07/14/18 16:00 Room Air 07/14/18 16:00 98.9 115 21 90/55 (67) 100 115 07/14/18 12:00 Room Air 07/14/18 12:00 131 07/14/18 11:28 98.6 151 20 93/65 (74) 100 151 07/14/18 10:34 98.9 Intake and Output 07/14/18 07/15/18 18:59 06:59 Intake Total 4320.0 ml 2267.490 ml Output Total 1700 ml 700 ml Balance 2620.0 ml 1567.490 ml Intake Oral 2750 ml 500 ml IV Total 1320.0 ml 1767.490 ml Blood Product 250 ml Output Urine Total 1700 ml 700 ml # Bowel Movements 4 2 General Appearance: WD/WN HEENT: normocephalic, atraumatic Respiratory/Chest: chest wall non-tender, lungs clear Cardiovascular: normal peripheral pulses, normal rate Abdomen: normal bowel sounds, no organomegaly Genitourinary: normal external genitalia Extremities: no clubbing Skin: no rash 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 Complete 07/12/18 23:10 Stool Clostridium difficile Toxin Assay - Final Complete 07/13/18 04:23 Rectum - Final NO CARBAPENEM-RESISTANT ENTEROBACTERI... Complete 07/13/18 04:23 Rectum VRE Culture - Final NO VANCOMYCIN RESISTANT ENTEROCOCCUS ... Complete Laboratory Tests 07/15/18 08:35: White Blood Count [Pending], Red Blood Count 2.44L, Hemoglobin 6.7*L, Hematocrit 20.0L, Mean Corpuscular Volume 82, Mean Corpuscular Hemoglobin 27.5, Mean Corpuscular Hemoglobin Concent 33.5, Red Cell Distribution Width 19.6H, Platelet Count 15L, Mean Platelet Volume 7.1, Neutrophils (%) (Auto) , Lymphocytes (%) (Auto) , Monocytes (%) (Auto) , Eosinophils (%) (Auto) , Basophils (%) (Auto) , Neutrophils % (Manual) [Pending], Lymphocytes % (Manual) [Pending], Lymphocytes [Pending], Platelet Estimate [Pending], Platelet Morphology [Pending], Sodium Level 130L, Potassium Level 3.4L, Chloride Level 104, Carbon Dioxide Level 18L, Anion Gap 8, Blood Urea Nitrogen 37H, Creatinine 2.0H, Estimat Glomerular Filtration Rate 45.6, Glucose Level 89, Calcium Level 6.4L, Phosphorus Level 4.2, Magnesium Level 1.8, Total Bilirubin 0.5, Aspartate Amino Transf (AST/SGOT) 30, Alanine Aminotransferase (ALT/SGPT) < 6L, Alkaline Phosphatase 62, Total Protein 4.2L, Albumin < 0.6L, Globulin , Percent CD3 Cells [Pending], Absolute CD3 Count [Pending], Percent CD4 Cells [Pending], Absolute CD4 Count [Pending], T-Lymphocyte CD4/CD8 Ratio [Pending], Percent CD8 Cells [Pending], Absolute CD8 Count [Pending] Current Medications Medications (Trade) Dose Ordered Sig/Yessica Route PRN Reason Start Time Stop Time Status Last Admin Dose Admin Acetaminophen (Tylenol) 650 mg Q4H PRN ORAL fever 07/13/18 13:45 08/11/18 21:44 07/15/18 05:16 Dextrose (Dextrose 50%) 25 ml Q30M PRN IV Hypoglycemia 07/13/18 10:15 08/11/18 21:44 Dextrose (Dextrose 50%) 50 ml Q30M PRN IV Hypoglycemia 07/13/18 10:15 08/11/18 21:44 Dextrose/Sodium Chloride 1,000 ml @ 100 mls/hr Q10H IV 07/13/18 10:00 08/11/18 21:43 07/15/18 01:26 Diphenhydramine HCl (Benadryl) 25 mg Q6H PRN ORAL Itching/Pruritis 07/13/18 15:45 08/11/18 21:44 Metoprolol Tartrate (Lopressor) 25 mg BID ORAL 07/13/18 18:00 08/12/18 07:59 07/15/18 08:47 Metronidazole 100 ml @ 100 mls/hr Q8HR IVPB 07/15/18 14:00 07/22/18 13:59 Mirtazapine (Remeron) 15 mg BEDTIME ORAL 07/13/18 21:00 08/12/18 20:59 07/14/18 21:02 Morphine Sulfate (Morphine Sulfate) 2 mg Q4H PRN IVP severe Pain (Pain Scale 7-10) 07/13/18 13:45 07/19/18 21:44 07/14/18 10:04 Nitroglycerin (Ntg) 0.4 mg Q5M X 3 DOSES PRN SL Prn Chest Pain 07/13/18 10:00 08/11/18 21:44 Ondansetron HCl (Zofran) 4 mg Q6H PRN IVP Nausea & Vomiting 07/13/18 15:45 08/11/18 21:44 07/13/18 18:19 Patient Own Medication (Patient's Own Med) 1 ea DAILY ORAL 07/14/18 09:00 08/13/18 08:59 07/15/18 08:48 Patient Own Medication (Patient's Own Med) 1 ea DAILY ORAL 07/14/18 09:00 08/13/18 08:59 07/15/18 08:48 Piperacillin Sod/ Tazobactam Sod 3.375 gm/Sodium Chloride 110 ml @ 27.5 mls/hr Q8H IVPB 07/13/18 12:00 07/20/18 11:59 07/15/18 03:22 Temazepam (Restoril) 15 mg HSPRN PRN ORAL Insomnia 07/13/18 21:45 07/19/18 21:44 Trimethoprim/ Sulfamethoxazole (Bactrim-DS) 1 tab DAILY ORAL 07/14/18 09:00 07/20/18 08:59 07/15/18 08:48 Vancomycin HCl (Firvanq) 125 mg FOUR TIMES A DAY ORAL 07/14/18 13:00 07/21/18 12:59 07/15/18 08:48 Vancomycin HCl (Vanco rx to dose) 1 ea DAILY PRN MISC Per rx protocol 07/14/18 09:00 08/12/18 07:59 Vancomycin HCl 1 gm/Dextrose 275 ml @ 183.708 mls/hr Q24H IVPB 07/14/18 21:00 07/19/18 20:59 07/14/18 21:01 Ya Hester MD July 15, 2018 10:07
--- NOTE | 2018-07-15 11:20 | NUR ---
NURSE NOTES: Pt c/o gen pain all over body pain scale 0f 10,given Morphine Sulfate 2 mg IVP,will continue to monitor pt's pain threshold.
[2018-07-15] MEDS: Morphine Sulfate 2mg/ml Inj(IV/IM USE ONLY) IVP PRN ×2 (11:22→17:43)
--- NOTE | 2018-07-15 11:30 | NUR ---
NURSE NOTES: Pt brought down for V/Q scan,accompanied by transporter and RN awake,alert in no resp distress,O2 at 2L NC and a cardiac monitoring .
[2018-07-15 12:00] VITALS: BP 137/60
--- NOTE | 2018-07-15 12:05 | Internal Med Progress Note ---
Subjective Date of Service: July 15, 2018 Physician Name NereidaAdam Attending Physician Alberto Gtz MD Current Medications Medications (Trade) Dose Ordered Sig/Yessica Route PRN Reason Start Time Stop Time Status Last Admin Dose Admin Acetaminophen (Tylenol) 650 mg Q4H PRN ORAL fever 07/13/18 13:45 08/11/18 21:44 07/15/18 05:16 Dextrose (Dextrose 50%) 25 ml Q30M PRN IV Hypoglycemia 07/13/18 10:15 08/11/18 21:44 Dextrose (Dextrose 50%) 50 ml Q30M PRN IV Hypoglycemia 07/13/18 10:15 08/11/18 21:44 Dextrose/Sodium Chloride 1,000 ml @ 100 mls/hr Q10H IV 07/13/18 10:00 08/11/18 21:43 07/15/18 01:26 Diphenhydramine HCl (Benadryl) 25 mg Q6H PRN ORAL Itching/Pruritis 07/13/18 15:45 08/11/18 21:44 Metoprolol Tartrate (Lopressor) 25 mg BID ORAL 07/13/18 18:00 08/12/18 07:59 07/15/18 08:47 Metronidazole 100 ml @ 100 mls/hr Q8HR IVPB 07/15/18 14:00 07/22/18 13:59 Mirtazapine (Remeron) 15 mg BEDTIME ORAL 07/13/18 21:00 08/12/18 20:59 07/14/18 21:02 Morphine Sulfate (Morphine Sulfate) 2 mg Q4H PRN IVP severe Pain (Pain Scale 7-10) 07/13/18 13:45 07/19/18 21:44 07/15/18 11:22 Nitroglycerin (Ntg) 0.4 mg Q5M X 3 DOSES PRN SL Prn Chest Pain 07/13/18 10:00 08/11/18 21:44 Ondansetron HCl (Zofran) 4 mg Q6H PRN IVP Nausea & Vomiting 07/13/18 15:45 08/11/18 21:44 07/13/18 18:19 Patient Own Medication (Patient's Own Med) 1 ea DAILY ORAL 07/14/18 09:00 08/13/18 08:59 07/15/18 08:48 Patient Own Medication (Patient's Own Med) 1 ea DAILY ORAL 07/14/18 09:00 08/13/18 08:59 07/15/18 08:48 Piperacillin Sod/ Tazobactam Sod 3.375 gm/Sodium Chloride 110 ml @ 27.5 mls/hr Q8H IVPB 07/13/18 12:00 07/20/18 11:59 07/15/18 03:22 Temazepam (Restoril) 15 mg HSPRN PRN ORAL Insomnia 07/13/18 21:45 07/19/18 21:44 Trimethoprim/ Sulfamethoxazole (Bactrim-DS) 1 tab DAILY ORAL 07/14/18 09:00 07/20/18 08:59 07/15/18 08:48 Vancomycin HCl (Firvanq) 125 mg FOUR TIMES A DAY ORAL 07/14/18 13:00 07/21/18 12:59 07/15/18 08:48 Vancomycin HCl (Vanco rx to dose) 1 ea DAILY PRN MISC Per rx protocol 07/14/18 09:00 08/12/18 07:59 Vancomycin HCl 1 gm/Dextrose 275 ml @ 183.708 mls/hr Q24H IVPB 07/14/18 21:00 07/19/18 20:59 07/14/18 21:01 Allergies: Coded Allergies: No Known Allergies (Unverified , 10/21/17) ROS Limited/Unobtainable: No Constitutional: Reports: no symptoms HEENT: Reports: no symptoms Cardiovascular: Reports: no symptoms Respiratory: Reports: no symptoms Gastrointestinal/Abdominal: Reports: abdominal pain, diarrhea Genitourinary: Reports: no symptoms Neurologic/Psychiatric: Reports: no symptoms Subjective 37 YO M with HIV admitted with abdominal pain, nausea and vomiting. Now clostridium difficile diarrhea. Cover for Int Med-Dr Gtz. SOFIA Objective Last Vital Signs Date Time Temp Pulse Resp B/P (MAP) Pulse Ox O2 Delivery O2 Flow Rate FiO2 07/15/18 08:47 133 97/51 07/15/18 08:00 98.6 19 94 07/15/18 08:00 Room Air Laboratory Tests Test 07/15/18 08:35 White Blood Count Pending Red Blood Count 2.44 M/UL (4.70-6.10) L Hemoglobin 6.7 G/DL (14.2-18.0) *L Hematocrit 20.0 % (42.0-52.0) L Mean Corpuscular Volume 82 FL (80-99) Mean Corpuscular Hemoglobin 27.5 PG (27.0-31.0) Mean Corpuscular Hemoglobin Concent 33.5 G/DL (32.0-36.0) Red Cell Distribution Width 19.6 % (11.6-14.8) H Platelet Count 15 K/UL (150-450) L Mean Platelet Volume 7.1 FL (6.5-10.1) Neutrophils (%) (Auto) % (45.0-75.0) Lymphocytes (%) (Auto) % (20.0-45.0) Monocytes (%) (Auto) % (1.0-10.0) Eosinophils (%) (Auto) % (0.0-3.0) Basophils (%) (Auto) % (0.0-2.0) Neutrophils % (Manual) Pending Lymphocytes % (Manual) Pending Lymphocytes Pending Platelet Estimate Pending Platelet Morphology Pending Sodium Level 130 MMOL/L (136-145) L Potassium Level 3.4 MMOL/L (3.5-5.1) L Chloride Level 104 MMOL/L (98-107) Carbon Dioxide Level 18 MMOL/L (21-32) L Anion Gap 8 mmol/L (5-15) Blood Urea Nitrogen 37 mg/dL (7-18) H Creatinine 2.0 MG/DL (0.55-1.30) H Estimat Glomerular Filtration Rate 45.6 mL/min (>60) Glucose Level 89 MG/DL (74-106) Calcium Level 6.4 MG/DL (8.5-10.1) L Phosphorus Level 4.2 MG/DL (2.5-4.9) Magnesium Level 1.8 MG/DL (1.8-2.4) Total Bilirubin 0.5 MG/DL (0.2-1.0) Aspartate Amino Transf (AST/SGOT) 30 U/L (15-37) Alanine Aminotransferase (ALT/SGPT) < 6 U/L (12-78) L Alkaline Phosphatase 62 U/L (46-116) Total Protein 4.2 G/DL (6.4-8.2) L Albumin < 0.6 G/DL (3.4-5.0) L Globulin g/dL Percent CD3 Cells Pending Absolute CD3 Count Pending Percent CD4 Cells Pending Absolute CD4 Count Pending T-Lymphocyte CD4/CD8 Ratio Pending Percent CD8 Cells Pending Absolute CD8 Count Pending Microbiology Date/Time Source Procedure Growth Status 07/12/18 22:25 Blood Blood Culture - Preliminary NO GROWTH AFTER 48 HOURS Resulted 07/12/18 22:10 Blood Blood Culture - Preliminary NO GROWTH AFTER 48 HOURS Resulted 07/13/18 04:23 Nasal Nares MRSA Culture - Final Staphylococcus Aureus - Mrsa Complete 07/12/18 23:10 Stool Stool Culture - Final NO SALMONELLA,SHIGELLA,OR CAMPYLOBACT... Complete 07/12/18 23:10 Stool Clostridium difficile Toxin Assay - Final Complete 07/13/18 04:23 Rectum - Final NO CARBAPENEM-RESISTANT ENTEROBACTERI... Complete 07/13/18 04:23 Rectum VRE Culture - Final NO VANCOMYCIN RESISTANT ENTEROCOCCUS ... Complete Intake and Output 07/14/18 07/15/18 19:00 07:00 Intake Total 4292.5 ml 2267.490 ml Output Total 1700 ml 700 ml Balance 2592.5 ml 1567.490 ml Intake Oral 2750 ml 500 ml IV Total 1292.5 ml 1767.490 ml Blood Product 250 ml Output Urine Total 1700 ml 700 ml # Bowel Movements 4 2 Objective PHYSICAL EXAMINATION: GENERAL: The patient is thin-appearing male, in no apparent distress. HEENT: Eyes, pupils equal and responsive to light and accommodation. Extraocular movements are intact. NECK: Supple without lymphadenopathy. CHEST: Lungs are clear to auscultation bilaterally without wheezes or rales. CARDIOVASCULAR: Tachycardic, regular rhythm. S1 and S2 are normal without murmurs, rubs, or gallops. ABDOMEN: Soft, nontender, nondistended. Positive bowel sounds. No evidence of hepatosplenomegaly. Currently, no rebound or guarding noted. RECTAL: Refused. GENITALIA: Refused. EXTREMITIES: Negative for clubbing, cyanosis, or edema. NEUROLOGIC: Cranial nerves II through XII are grossly intact without focal deficits. Motor strength is 5/5 bilaterally intact. Deep tendon reflexes are 2+ plantar. Assessment/Plan Assessment/Plan ASSESSMENT: This is a 37-year-old male with: 1. Abdominal pain. 2. Nausea with vomiting. 3. Diarrhea. 4. Rectal bleeding. 5. Human immunodeficiency virus. 6. Kaposi's sarcoma. 7. Castleman's disease. 8. Hepatitis B. 9. Clostridium difficile diarrhea 10. Severe anemia-blood loss TREATMENT: 1. Abdominal pain/nausea/vomiting/rectal bleeding. The patient has history of Clostridium difficile, which was resistant to Flagyl. An Infectious Diseases consultation has been obtained with Dr. Mendoza. A Gastroenterology consultation has been obtained with Dr. Michael Grande. We will follow recommendations of GI and Infectious Diseases. 2. Human immunodeficiency virus. Continue HAART as above. 3. Kaposi's sarcoma. The patient is status post chemotherapy. 4. Castleman's disease. Please see the previous history and physical from previous hospitalization. 5. Hepatitis B. 6. Continue oral vancomycin; add flagyl per GI 7. S/P transfusion 1 unit PRBC 07/14/18; Transfuse 2 units PRBC 07/15/18 8. V/Q scan 07/15/18. Adam Padron MD July 15, 2018 12:05
--- NOTE | 2018-07-15 12:45 | NUR ---
NURSE NOTES: Pt nauseated and throwing up to bile colored liquid emesis,Zofran 4 mg IV given.Refuesd to take po medic at this time.
--- NOTE | 2018-07-15 12:54 | Cardiac Electrophysiology PN ---
Assessment/Plan Assessment/Plan 1. Sinus tachycardia with heart rate up to 170s. This is secondary to underlying sepsis. Ruled out for MO. His last echocardiogram showed ejection fraction of 75% but now 45-50%. Currently, the patient has no evidence of atrial fibrillation or supraventricular tachycardia. Better on Lopressor 25 bid VQ result pending. 2. History of hypertension. On Lopressor 25 bid 3. HIV. On Truvada. 4. History of Kaposi's sarcoma. 5. History of pancreatitis, hepatitis B, and hepatitis C. 6. Severe anemia, status post transfusion. 7. History of hyponatremia. 8. Moderate Pulmonary HTN. VQ scan to Rule out PE. DW RN Subjective Subjective Just came back from VQ scan. Tachycardia is better. Is nauseous and has diarrhea. Objective Last 24 Hour Vital Signs Date Time Temp Pulse Resp B/P (MAP) Pulse Ox O2 Delivery O2 Flow Rate FiO2 07/15/18 12:04 Room Air 07/15/18 08:47 133 97/51 07/15/18 08:01 Room Air 07/15/18 08:00 98.6 135 19 97/51 (66) 94 135 07/15/18 07:35 142 07/15/18 04:00 Room Air 07/15/18 04:00 99.3 140 24 105/68 (80) 100 140 07/15/18 03:18 131 07/15/18 00:27 98.5 122 21 91/66 (74) 99 122 07/15/18 00:00 Room Air 07/14/18 23:33 120 07/14/18 20:00 Room Air 07/14/18 20:00 99.0 120 22 85/57 (66) 100 120 07/14/18 19:10 118 07/14/18 18:00 120 90/55 07/14/18 16:34 98.6 07/14/18 16:00 120 07/14/18 16:00 Room Air 07/14/18 16:00 98.9 115 21 90/55 (67) 100 115 Intake and Output 07/14/18 07/15/18 19:00 07:00 Intake Total 4292.5 ml 2267.490 ml Output Total 1700 ml 700 ml Balance 2592.5 ml 1567.490 ml Intake Oral 2750 ml 500 ml IV Total 1292.5 ml 1767.490 ml Blood Product 250 ml Output Urine Total 1700 ml 700 ml # Bowel Movements 4 2 Laboratory Tests Test 07/15/18 08:35 White Blood Count Pending Red Blood Count 2.44 M/UL (4.70-6.10) L Hemoglobin 6.7 G/DL (14.2-18.0) *L Hematocrit 20.0 % (42.0-52.0) L Mean Corpuscular Volume 82 FL (80-99) Mean Corpuscular Hemoglobin 27.5 PG (27.0-31.0) Mean Corpuscular Hemoglobin Concent 33.5 G/DL (32.0-36.0) Red Cell Distribution Width 19.6 % (11.6-14.8) H Platelet Count 15 K/UL (150-450) L Mean Platelet Volume 7.1 FL (6.5-10.1) Neutrophils (%) (Auto) % (45.0-75.0) Lymphocytes (%) (Auto) % (20.0-45.0) Monocytes (%) (Auto) % (1.0-10.0) Eosinophils (%) (Auto) % (0.0-3.0) Basophils (%) (Auto) % (0.0-2.0) Neutrophils % (Manual) Pending Lymphocytes % (Manual) Pending Lymphocytes Pending Platelet Estimate Pending Platelet Morphology Pending Sodium Level 130 MMOL/L (136-145) L Potassium Level 3.4 MMOL/L (3.5-5.1) L Chloride Level 104 MMOL/L (98-107) Carbon Dioxide Level 18 MMOL/L (21-32) L Anion Gap 8 mmol/L (5-15) Blood Urea Nitrogen 37 mg/dL (7-18) H Creatinine 2.0 MG/DL (0.55-1.30) H Estimat Glomerular Filtration Rate 45.6 mL/min (>60) Glucose Level 89 MG/DL (74-106) Calcium Level 6.4 MG/DL (8.5-10.1) L Phosphorus Level 4.2 MG/DL (2.5-4.9) Magnesium Level 1.8 MG/DL (1.8-2.4) Total Bilirubin 0.5 MG/DL (0.2-1.0) Aspartate Amino Transf (AST/SGOT) 30 U/L (15-37) Alanine Aminotransferase (ALT/SGPT) < 6 U/L (12-78) L Alkaline Phosphatase 62 U/L (46-116) Total Protein 4.2 G/DL (6.4-8.2) L Albumin < 0.6 G/DL (3.4-5.0) L Globulin g/dL Percent CD3 Cells Pending Absolute CD3 Count Pending Percent CD4 Cells Pending Absolute CD4 Count Pending T-Lymphocyte CD4/CD8 Ratio Pending Percent CD8 Cells Pending Absolute CD8 Count Pending Microbiology Date/Time Source Procedure Growth Status 07/12/18 22:25 Blood Blood Culture - Preliminary NO GROWTH AFTER 48 HOURS Resulted 07/12/18 22:10 Blood Blood Culture - Preliminary NO GROWTH AFTER 48 HOURS Resulted 07/13/18 04:23 Nasal Nares MRSA Culture - Final Staphylococcus Aureus - Mrsa Complete 07/12/18 23:10 Stool Stool Culture - Final NO SALMONELLA,SHIGELLA,OR CAMPYLOBACT... Complete 07/12/18 23:10 Stool Clostridium difficile Toxin Assay - Final Complete 07/13/18 04:23 Rectum - Final NO CARBAPENEM-RESISTANT ENTEROBACTERI... Complete 07/13/18 04:23 Rectum VRE Culture - Final NO VANCOMYCIN RESISTANT ENTEROCOCCUS ... Complete Objective HEAD AND NECK: No jugular venous distention. LUNGS: Clear. CARDIOVASCULAR: Tachycardic S1, S2 with no gallop or murmur. ABDOMEN: Soft. EXTREMITIES: No pitting edema. Toney Howe MD July 15, 2018 12:54
--- NOTE | 2018-07-15 13:00 | NUR ---
NURSE NOTES: Pt with x2 LBMS,dark tarry liquid stools,unable to collect specimen for OB stools.
--- NOTE | 2018-07-15 14:01 | Diagnostic Imaging Report ---
Indications: Shortness of breath Technique: IV administration 5.1 mCi 99m technetium macroaggregated albumin. Images obtained over the lungs in multiple projections. Previously, patient inhaled 40 mCi aerosolized 99M technetium DTPA. Images obtained over the lungs in multiple projections Comparison: Reference made to chest radiograph dated 07/12/2018. Findings: Aerosol images are suboptimal in quality, demonstrate somewhat heterogeneous tracer distribution. Perfusion images also demonstrate heterogeneous tracer distribution, with matched decreased perfusion in the right lower lobe probably corresponding to an area of infiltrate seen on chest radiograph. No definite ventilation/perfusion mismatch demonstrated. Impression: Matched heterogeneous tracer distribution. Matched right lower lobe perfusion defect deemed low probability for pulmonary embolus
--- NOTE | 2018-07-15 14:39 | Infectious Diseases Prog Note ---
Assessment/Plan Assessment/Plan Abx: IV Vancomycin 07/12- Zosyn 07/13- Cefepime x1 07/12 Flagyl x1 07/12 Assessment: Sepsis- 2ry to Cdiff and PNA- r/o bacteremia -07/14 SP cx p -07/12 Bcx NTD CXR: Interval development of consolidation right upper lobe. Decrease in pleural thickening when compared to prior study Low grade fever, improving Leukocytosis, improving Tachycardia- r/o PE -Echo: Right ventricular enlargement with basal segments akinesia and preserved apical segment, possible Hayes sign suggestive of pulmonary embolism.Aortic valve calcification with normal cusp excursion. Recurrent Cdiff- ?compliance to previous oral vancomycin (while in the hospital he refused some dosages; unclear if finished course at SNF) -07/12 Cdiff + stool cx: normal fecal phi Acute anemia- suspect GIB given melanotic stools Thrombocytopenia REENA on CKD, worsening Diffuse lymphadenopathy/multiple systemic symptoms- Ddx: CMV disease (ie colitis ), Diffuse MAC, recurrente Castleman, HIV related, lymphoma; refused excisional biopsy in the past -05/18 s/p L axillary lymph node biopsy -path fragments of benign lymph node with pronounced polytypic plasmacytosis; focally + HHV8. 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 -05/16/18 CT chest: Mediastinal, axillary, and supraclavicular lymphadenopathy , enlarged compared to the prior CT of the chest. Largest left axillary node measures 3.4 x 2.4 cm. Largest supraclavicular node on the left measures 3.8 x 2.8 cm. Largest mediastinal nodes include a 2.2 x 1.6 cm pretracheal node and a 2.3 x 1.6 cm subcarinal node. Small layering right pleural effusion with fluid in the minor fissure. Kasie-bronchovascular groundglass haziness and nodularity in the right lower lobe. Scattered paraseptal emphysematous changes, predominantly in the upper lung zones. -05/16/18 CT abd/p: Diffuse edema and haziness throughout the mesenteric root. Not significantly changed compared to the visualized portions of the mesenteric root in the prior CT of the chest dated 10/22/17. Mesenteric, retroperitoneal, and inguinal lymphadenopathy. Largest retroperitoneal node measures 3.1 x 2.5 x 2.0 cm to left of the IVC (series 8 image 56, series 10 image 23). Largest left inguinal left node measures 2.9 x 2.5 cm (series 8 image 90). Mild fluid distention and air-fluid levels throughout the colon, which may suggest mild colitis and/or diarrheal disease. No evidence of bowel obstruction. Cholelithiasis without gallbladder wall thickening or ductal dilatation. Scattered subcentimeter hypodensities throughout the spleen, possibly tiny simple cysts. Subcentimeter simple-appearing left renal cortical cysts. Mild urinary bladder wall thickening, most likely related to underdistention. -CT head: . Opacification of the right maxillary sinus, right frontal sinus , and mucosal thickening throughout the ethmoid air cells and left maxillary sinus, suggestive of sinusitis. Partial opacification of the inferior posterior aspect of the left mastoid air cells, suggesting small left mastoid effusion. 04/2018- Cr Ag , T spot, CMV PCR, CMV IgM neg - 10/22/17- CT show reticular opacity and significant lymphadenopathy 10/23/17 - CT abd/pel Lymphadenopathy, Enlarged Pancrease mild B/L hydronephrosis -Blasto, Histo, CrAg neg 11/21/16 - Quantiferon negative (Out Side lab) Recent Cdiff Colitis -06/12 Cdiff toxin A/B + -04/2018 Cdiff neg -stool cx normal phi - O and P neg x3 HIV/AIDS- questionable compliance to ARV (dx 1999)- on Truvada and Dolutegravir 05/2018HIV VL 260, RPR neg, GC/CL neg -04/2018 Cd4 64 (9.1%); VL 100 ?decreased due to non compliance, however low viremia (will expect higher viremia if non compliance) -10/2017 HIV VL ND, CD4 87 (12.4%) -09/01/17 - CD4 192 and VL - ND (Out Side labs) -no hx of resistance ; previously on Truvada, Reyataz and Norvir -Has been above 200 in the past. Came down with Chemo hx pancreatitis 10/2017 hx of Kaposi's sarcoma/Castleman's disease s/p chemotherapy - S/P Chemo ending 07/17/17 Last PET 08/12/17 - show stable/not worsening lymphadenopathy Hep C+ -VL ND hx of Chronic Hep B, VL <15 09/01/17 RPR, GC/CL : negative hx of DVT CKD Plan: -Cont PO vancomycin 125mg qid #2/10-14 -if diarrhea not improving, will switch Fidaxomycin -Continue empiric IV Vancomycin #4 and ZOsyn #3 (abx d#4) for PNA pending Sp cx -Flagyl per GI -f/u cx -Monitor CBC/CMP, temperatures -Will need excisional biopsy and bone marrow biopsy- high suspicion for recurrence of Castleman's disease - will reattempt once more stabilized- in the past refused twice -f/u CD4 -Continue ARV: TRuvada +Dolutegravir -asked lab to get HIV genotype results that were done last admission -Continue prophylactic Bactrim and weekly Azithromycin for PCP and MAC respectively -GI eval -Heme onc eval -f/u sp cx -CXR 2v am Thank you for this consolation. Will continue to follow along with you. Discussed with RN Subjective Allergies: Coded Allergies: No Known Allergies (Unverified , 10/21/17) Subjective afebrile > 24hrs wbc improved Objective Vital Signs Last 24 Hour Vital Signs Date Time Temp Pulse Resp B/P (MAP) Pulse Ox O2 Delivery O2 Flow Rate FiO2 07/15/18 12:04 Room Air 07/15/18 12:00 111 07/15/18 12:00 97.0 123 20 137/60 (85) 95 123 07/15/18 08:47 133 97/51 07/15/18 08:01 Room Air 07/15/18 08:00 98.6 135 19 97/51 (66) 94 135 07/15/18 07:35 142 07/15/18 04:00 Room Air 07/15/18 04:00 99.3 140 24 105/68 (80) 100 140 07/15/18 03:18 131 07/15/18 00:27 98.5 122 21 91/66 (74) 99 122 07/15/18 00:00 Room Air 07/14/18 23:33 120 07/14/18 20:00 Room Air 07/14/18 20:00 99.0 120 22 85/57 (66) 100 120 07/14/18 19:10 118 07/14/18 18:00 120 90/55 07/14/18 16:34 98.6 07/14/18 16:00 120 07/14/18 16:00 Room Air 07/14/18 16:00 98.9 115 21 90/55 (67) 100 115 Height (Feet): 6 Height (Inches): 0.00 Weight (Pounds): 142 Objective GENERAL: The patient is thin-appearing male, in no apparent distress. HEENT: Eyes, pupils equal and responsive to light and accommodation. Extraocular movements are intact. NECK: Supple without lymphadenopathy. CHEST: Lungs are clear to auscultation bilaterally without wheezes or rales. CARDIOVASCULAR: Tachycardic, regular rhythm. S1 and S2 are normal without murmurs, rubs, or gallops. ABDOMEN: Soft, nontender, nondistended. Positive bowel sounds. No evidence of hepatosplenomegaly. Currently, no rebound or guarding noted. EXTREMITIES: Negative for clubbing, cyanosis, or edema. NEUROLOGIC: Cranial nerves II through XII are grossly intact without focal deficits. Motor strength is 5/5 bilaterally intact. Deep tendon reflexes are 2+ plantar. Microbiology Date/Time Source Procedure Growth Status 07/12/18 22:25 Blood Blood Culture - Preliminary NO GROWTH AFTER 48 HOURS Resulted 07/12/18 22:10 Blood Blood Culture - Preliminary NO GROWTH AFTER 48 HOURS Resulted 07/13/18 04:23 Nasal Nares MRSA Culture - Final Staphylococcus Aureus - Mrsa Complete 07/12/18 23:10 Stool Stool Culture - Final NO SALMONELLA,SHIGELLA,OR CAMPYLOBACT... Complete 07/12/18 23:10 Stool Clostridium difficile Toxin Assay - Final Complete 07/13/18 04:23 Rectum - Final NO CARBAPENEM-RESISTANT ENTEROBACTERI... Complete 07/13/18 04:23 Rectum VRE Culture - Final NO VANCOMYCIN RESISTANT ENTEROCOCCUS ... Complete Laboratory Tests Test 07/15/18 08:35 White Blood Count Pending Red Blood Count 2.44 M/UL (4.70-6.10) L Hemoglobin 6.7 G/DL (14.2-18.0) *L Hematocrit 20.0 % (42.0-52.0) L Mean Corpuscular Volume 82 FL (80-99) Mean Corpuscular Hemoglobin 27.5 PG (27.0-31.0) Mean Corpuscular Hemoglobin Concent 33.5 G/DL (32.0-36.0) Red Cell Distribution Width 19.6 % (11.6-14.8) H Platelet Count 15 K/UL (150-450) L Mean Platelet Volume 7.1 FL (6.5-10.1) Neutrophils (%) (Auto) % (45.0-75.0) Lymphocytes (%) (Auto) % (20.0-45.0) Monocytes (%) (Auto) % (1.0-10.0) Eosinophils (%) (Auto) % (0.0-3.0) Basophils (%) (Auto) % (0.0-2.0) Differential Total Cells Counted 100 Neutrophils % (Manual) 81 % (45-75) H Lymphocytes % (Manual) 8 % (20-45) L Monocytes % (Manual) 6 % (1-10) Eosinophils % (Manual) 3 % (0-3) Basophils % (Manual) 1 % (0-2) Band Neutrophils 1 % (0-8) Lymphocytes Pending Platelet Estimate Decreased L Platelet Morphology Normal Hypochromasia 3+ Anisocytosis 2+ Spherocytes 2+ Sodium Level 130 MMOL/L (136-145) L Potassium Level 3.4 MMOL/L (3.5-5.1) L Chloride Level 104 MMOL/L (98-107) Carbon Dioxide Level 18 MMOL/L (21-32) L Anion Gap 8 mmol/L (5-15) Blood Urea Nitrogen 37 mg/dL (7-18) H Creatinine 2.0 MG/DL (0.55-1.30) H Estimat Glomerular Filtration Rate 45.6 mL/min (>60) Glucose Level 89 MG/DL (74-106) Calcium Level 6.4 MG/DL (8.5-10.1) L Phosphorus Level 4.2 MG/DL (2.5-4.9) Magnesium Level 1.8 MG/DL (1.8-2.4) Total Bilirubin 0.5 MG/DL (0.2-1.0) Aspartate Amino Transf (AST/SGOT) 30 U/L (15-37) Alanine Aminotransferase (ALT/SGPT) < 6 U/L (12-78) L Alkaline Phosphatase 62 U/L (46-116) Total Protein 4.2 G/DL (6.4-8.2) L Albumin < 0.6 G/DL (3.4-5.0) L Globulin g/dL Percent CD3 Cells Pending Absolute CD3 Count Pending Percent CD4 Cells Pending Absolute CD4 Count Pending T-Lymphocyte CD4/CD8 Ratio Pending Percent CD8 Cells Pending Absolute CD8 Count Pending Current Medications Medications (Trade) Dose Ordered Sig/Yessica Route PRN Reason Start Time Stop Time Status Last Admin Dose Admin Acetaminophen (Tylenol) 650 mg Q4H PRN ORAL fever 07/13/18 13:45 08/11/18 21:44 07/15/18 05:16 Dextrose (Dextrose 50%) 25 ml Q30M PRN IV Hypoglycemia 07/13/18 10:15 08/11/18 21:44 Dextrose (Dextrose 50%) 50 ml Q30M PRN IV Hypoglycemia 07/13/18 10:15 08/11/18 21:44 Dextrose/Sodium Chloride 1,000 ml @ 100 mls/hr Q10H IV 07/13/18 10:00 08/11/18 21:43 07/15/18 13:11 Diphenhydramine HCl (Benadryl) 25 mg Q6H PRN ORAL Itching/Pruritis 07/13/18 15:45 08/11/18 21:44 Metoprolol Tartrate (Lopressor) 25 mg BID ORAL 07/13/18 18:00 08/12/18 07:59 07/15/18 08:47 Metronidazole 100 ml @ 100 mls/hr Q8HR IVPB 07/15/18 14:00 07/22/18 13:59 Mirtazapine (Remeron) 15 mg BEDTIME ORAL 07/13/18 21:00 08/12/18 20:59 07/14/18 21:02 Morphine Sulfate (Morphine Sulfate) 2 mg Q4H PRN IVP severe Pain (Pain Scale 7-10) 07/13/18 13:45 07/19/18 21:44 07/15/18 11:22 Nitroglycerin (Ntg) 0.4 mg Q5M X 3 DOSES PRN SL Prn Chest Pain 07/13/18 10:00 08/11/18 21:44 Ondansetron HCl (Zofran) 4 mg Q6H PRN IVP Nausea & Vomiting 07/13/18 15:45 08/11/18 21:44 07/15/18 12:49 Patient Own Medication (Patient's Own Med) 1 ea DAILY ORAL 5/28/19 09:00 08/13/18 08:59 07/15/18 08:48 Patient Own Medication (Patient's Own Med) 1 ea DAILY ORAL 07/14/18 09:00 08/13/18 08:59 07/15/18 08:48 Piperacillin Sod/ Tazobactam Sod 3.375 gm/Sodium Chloride 110 ml @ 27.5 mls/hr Q8H IVPB 07/13/18 12:00 07/20/18 11:59 07/15/18 12:50 Temazepam (Restoril) 15 mg HSPRN PRN ORAL Insomnia 07/13/18 21:45 07/19/18 21:44 Trimethoprim/ Sulfamethoxazole (Bactrim-DS) 1 tab DAILY ORAL 07/14/18 09:00 07/20/18 08:59 07/15/18 08:48 Vancomycin HCl (Firvanq) 125 mg FOUR TIMES A DAY ORAL 07/14/18 13:00 07/21/18 12:59 07/15/18 08:48 Vancomycin HCl (Vanco rx to dose) 1 ea DAILY PRN MISC Per rx protocol 07/14/18 09:00 08/12/18 07:59 Vancomycin HCl 1 gm/Dextrose 275 ml @ 183.708 mls/hr Q24H IVPB 07/14/18 21:00 07/19/18 20:59 07/14/18 21:01 Maite Mobley M.D. July 15, 2018 14:39
[2018-07-15 16:00] VITALS: BP 99/63
--- NOTE | 2018-07-15 17:20 | NUR ---
NURSE NOTES: Transfused ist unit of PRBC,H/H 6.7./20.0.Pt V/S taken ,afebrile but low BP noted 92/63,will hold due medic Lopressor 25 mg PO.Pt denies any SOB,chills or chest pain,no transfusion reaction presented,will continue to monitor pt.
--- NOTE | 2018-07-15 17:30 | Consultation ---
Consult Note Consult Note asked to eval for rising serum Cr and renal failure admitted 07/12 via ER: This is an unfortunate 37-year-old male with a history of AIDS with Castleman Syndrome. CD4 count is low. He was just admitted here and was discharged 3 weeks ago for abdominal pain, diarrhea, C. difficile, sepsis. He presents with chief complaint of abdominal pain with nausea vomiting and diarrhea. Vomiting' s for last 3 days. Diarrhea is profuse and ongoing for a week. He said his melanotic. Subjective fever and felt very weak. Unable to keep anything down except for little bit of fluid. Denies trauma. Similar symptom in the past. Pain is sharp and crampy. 8 out of 10. No radiation. Pain is diffuse. current conditions: (1) Severe sepsis (2) HIV disease (3) Sinus tachycardia (4) Anemia (5) Hepatitis C (6) Hepatitis B (7) Kaposi disease (8) Castleman disease (9) Protein-calorie malnutrition, severe interviewed data reviewed Assessment/Plan Acute renal failure Cr 1.2 up to 2 Acute worsening Anemia Hgb 8.5 to mid 6 severe hypoalbuminemia / Malnutrition Hypotensive / Tachycardia / Sepsis Plan Avoid Nephrotoxics Keep BP over 100 syst monitor renal parameters per consultants poor prognosis Adam Aguiar MD July 15, 2018 17:30
--- NOTE | 2018-07-15 19:11 | NUR ---
HAND-OFF: Report given to Dee Dee Toscano RN.Pt asleep at this time no distress noted.
--- NOTE | 2018-07-15 19:12 | NUR ---
NURSE NOTES: BEDSIDE REPORT RECEIVED FROM TRES JOSE. PT IS X4, ABLE TO MAKE NEEDS KNOWN, OCCASIONALLY HOSTILE TOWARDS CARE. 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 2L NC, SATING WELL/ NO S/S OF OVERT DISTRESS NOTED. SKIN IS CLEAN, DRY, INTACT, URINAL/BED [place] AT BEDSIDE. ORDER TO COLLECT OB STOOL/URINE, WILL CARRY OUT. RAC 22 RUNNING 1 UNIT PRBCS, ASYMPTOMATIC. LFA 22 INFILTRATED, WILL DC. ORDER TO TRANSFUSE 1 MORE UNIT. BED IS LOCKED IN LOWEST POSITION, SR X3, CALL GUARDADO W/ IN REACH, BED ALARM ON. WILL CONTINUE TO MONITOR AND FOLLOW W/ PLAN OF CARE.
--- NOTE | 2018-07-15 19:40 | NUR ---
NURSE NOTES: SPOKE W/ PHARMACY REGARDING BLOOD TRANSFUSION. PT HAS ONE IV LINE, HARDSTICK, NO VISIBLE VEINS, PT CONFIRMS H/S. WAS TOLD TO HOLD IV ABX, AND CONTINUING INFUSING BLOOD UNTIL FINISHED. WAS TOLD TO CALL BACK WHEN BLOOD IS TRANSFUSED TO RESCHEDULE. WILL CARRY OUT AND CONTINUE TO MONITOR.
--- NOTE | 2018-07-15 19:45 | NUR ---
NURSE NOTES: PT REFUSING SECOND IV LINE. WILL RESCHEDULE IV MEDS W/ PHARMACY ONCE BLOOD FINISHED.
[2018-07-15 20:00] VITALS: BP 106/66
[2018-07-16] VITALS: BP 104/65
[2018-07-16] MEDS ORDERED: Piperacillin/Tazobactam 3.375 GM in NS 110 ML IVPB SCH ×2 (03:30→04:00)
[2018-07-16 04:00] VITALS: BP 98/65
[2018-07-16] MEDS ORDERED: Vancomycin 1gm in D5W 275ml IVPB SCH ×2 (04:00→08:00)
[2018-07-16] MEDS ORDERED: D5NS 1,000 ML IV SCH (04:00)
--- NOTE | 2018-07-16 04:00 | NUR ---
NURSE NOTES: LAB DRAW UNSUCCESSFUL X2. PT STILL REFUSING SECOND IV LINE. WILL CONSULT MD FOR POSSIBLE PICC. WILL CONTINUE TO MONITOR AND FOLLOW W/ PLAN OF CARE.
--- NOTE | 2018-07-16 07:13 | NUR ---
HAND-OFF: Report given to TRES FLORES.
--- NOTE | 2018-07-16 07:25 | NUR ---
NURSE NOTES: Received report from TRES Funez. Patient is resting in bed, in stable condition. No s/sx of SOB, breathing is even and unlabored. Denies any presence of pain or discomfort at this time. Bed is in lowest position, brakes engaged. Call light is kept within easy reach. Will continue to monitor patient.
[2018-07-16 08:00] VITALS: BP 100/65
[2018-07-16] MEDS: Vancomycin oral 125mg/2.5ml ORAL SCH ×4 (08:25→20:10)
[2018-07-16] MEDS: DOLUTEGRAVIR 50 MG ORAL SCH (08:26)
[2018-07-16] MEDS: Bactrim-DS 1 tab ORAL SCH (08:26)
[2018-07-16] MEDS: TRUVADA ORAL SCH (08:27)
[2018-07-16] MEDS: Metoprolol 25mg tab ORAL SCH ×3 (08:27→17:19)
--- NOTE | 2018-07-16 08:51 | Infectious Diseases Prog Note ---
Assessment/Plan Assessment/Plan Abx: IV Vancomycin 07/12- Zosyn 07/13- Cefepime x1 07/12 Flagyl x1 07/12 Assessment: Sepsis- 2ry to Cdiff and PNA- r/o bacteremia -07/16 CXR p -07/14 SP cx p -07/12 Bcx NTD CXR: Interval development of consolidation right upper lobe. Decrease in pleural thickening when compared to prior study Low grade fever, improving Leukocytosis, improving Tachycardia- r/o PE -V/Q scan: Matched heterogeneous tracer distribution. Matched right lower lobe perfusion defect deemed low probability for pulmonary embolus -Echo: Right ventricular enlargement with basal segments akinesia and preserved apical segment, possible Hayes sign suggestive of pulmonary embolism.Aortic valve calcification with normal cusp excursion. Recurrent Cdiff- ?compliance to previous oral vancomycin (while in the hospital he refused some dosages; unclear if finished course at SNF) -07/12 Cdiff + stool cx: normal fecal phi Acute anemia- suspect GIB given melanotic stools Thrombocytopenia REENA on CKD, worsening Diffuse lymphadenopathy/multiple systemic symptoms- Ddx: CMV disease (ie colitis ), Diffuse MAC, recurrente Castleman, HIV related, lymphoma; refused excisional biopsy in the past -05/18 s/p L axillary lymph node biopsy -path fragments of benign lymph node with pronounced polytypic plasmacytosis; focally + HHV8. 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 -05/16/18 CT chest: Mediastinal, axillary, and supraclavicular lymphadenopathy , enlarged compared to the prior CT of the chest. Largest left axillary node measures 3.4 x 2.4 cm. Largest supraclavicular node on the left measures 3.8 x 2.8 cm. Largest mediastinal nodes include a 2.2 x 1.6 cm pretracheal node and a 2.3 x 1.6 cm subcarinal node. Small layering right pleural effusion with fluid in the minor fissure. Kasie-bronchovascular groundglass haziness and nodularity in the right lower lobe. Scattered paraseptal emphysematous changes, predominantly in the upper lung zones. -05/16/18 CT abd/p: Diffuse edema and haziness throughout the mesenteric root. Not significantly changed compared to the visualized portions of the mesenteric root in the prior CT of the chest dated 10/22/17. Mesenteric, retroperitoneal, and inguinal lymphadenopathy. Largest retroperitoneal node measures 3.1 x 2.5 x 2.0 cm to left of the IVC (series 8 image 56, series 10 image 23). Largest left inguinal left node measures 2.9 x 2.5 cm (series 8 image 90). Mild fluid distention and air-fluid levels throughout the colon, which may suggest mild colitis and/or diarrheal disease. No evidence of bowel obstruction. Cholelithiasis without gallbladder wall thickening or ductal dilatation. Scattered subcentimeter hypodensities throughout the spleen, possibly tiny simple cysts. Subcentimeter simple-appearing left renal cortical cysts. Mild urinary bladder wall thickening, most likely related to underdistention. -CT head: . Opacification of the right maxillary sinus, right frontal sinus , and mucosal thickening throughout the ethmoid air cells and left maxillary sinus, suggestive of sinusitis. Partial opacification of the inferior posterior aspect of the left mastoid air cells, suggesting small left mastoid effusion. 04/2018- Cr Ag , T spot, CMV PCR, CMV IgM neg - 10/22/17- CT show reticular opacity and significant lymphadenopathy 10/23/17 - CT abd/pel Lymphadenopathy, Enlarged Pancrease mild B/L hydronephrosis -Blasto, Histo, CrAg neg 11/21/16 - Quantiferon negative (Out Side lab) Recent Cdiff Colitis -06/12 Cdiff toxin A/B + -04/2018 Cdiff neg -stool cx normal phi - O and P neg x3 HIV/AIDS- questionable compliance to ARV (dx 1999)- on Truvada and Dolutegravir 05/2018HIV VL 260, RPR neg, GC/CL neg -04/2018 Cd4 64 (9.1%); VL 100 ?decreased due to non compliance, however low viremia (will expect higher viremia if non compliance) -10/2017 HIV VL ND, CD4 87 (12.4%) -09/01/17 - CD4 192 and VL - ND (Out Side labs) -no hx of resistance ; previously on Truvada, Reyataz and Norvir -Has been above 200 in the past. Came down with Chemo hx pancreatitis 10/2017 hx of Kaposi's sarcoma/Castleman's disease s/p chemotherapy - S/P Chemo ending 07/17/17 Last PET 08/12/17 - show stable/not worsening lymphadenopathy Hep C+ -VL ND hx of Chronic Hep B, VL <15 09/01/17 RPR, GC/CL : negative hx of DVT CKD Plan: -Cont PO vancomycin 125mg qid #3/10-14 -if diarrhea not improving, will switch Fidaxomycin -Continue empiric IV Vancomycin #5 and ZOsyn #4 (abx d#5) for PNA pending Sp cx -Flagyl #2 per GI -f/u cx -Monitor CBC/CMP, temperatures -Will need excisional biopsy and bone marrow biopsy- high suspicion for recurrence of Castleman's disease - will reattempt once more stabilized- in the past refused twice -f/u CD4 -Continue ARV: TRuvada +Dolutegravir -asked lab to get HIV genotype results that were done last admission -Continue prophylactic Bactrim and weekly Azithromycin for PCP and MAC respectively -GI eval -Heme onc eval -f/u sp cx -CXR 2v am Thank you for this consolation. Will continue to follow along with you. Discussed with RN Subjective Allergies: Coded Allergies: No Known Allergies (Unverified , 10/21/17) Subjective afebrile > 48 hrs wbc improved; CBC today p SP cx and CXR p Objective Vital Signs Last 24 Hour Vital Signs Date Time Temp Pulse Resp B/P (MAP) Pulse Ox O2 Delivery O2 Flow Rate FiO2 07/16/18 08:27 129 100/65 07/16/18 08:00 Room Air 07/16/18 06:42 98.1 07/16/18 04:00 Room Air 07/16/18 04:00 98.1 140 22 98/65 (76) 99 07/16/18 04:00 140 07/16/18 00:00 Room Air 07/16/18 00:00 138 07/16/18 00:00 98.4 137 20 104/65 (78) 94 07/15/18 20:00 132 07/15/18 20:00 Room Air 07/15/18 20:00 98.9 130 20 106/66 (79) 99 07/15/18 17:39 128 92/63 07/15/18 16:00 97.6 131 21 99/63 (75) 95 131 07/15/18 16:00 128 07/15/18 16:00 Room Air 07/15/18 12:01 Room Air 07/15/18 12:00 111 07/15/18 12:00 97.0 123 20 137/60 (85) 95 123 07/15/18 08:47 133 97/51 Height (Feet): 6 Height (Inches): 0.00 Weight (Pounds): 142 Objective GENERAL: The patient is thin-appearing male, in no apparent distress. HEENT: Eyes, pupils equal and responsive to light and accommodation. Extraocular movements are intact. NECK: Supple without lymphadenopathy. CHEST: Lungs are clear to auscultation bilaterally without wheezes or rales. CARDIOVASCULAR: Tachycardic, regular rhythm. S1 and S2 are normal without murmurs, rubs, or gallops. ABDOMEN: Soft, nontender, nondistended. Positive bowel sounds. No evidence of hepatosplenomegaly. Currently, no rebound or guarding noted. EXTREMITIES: Negative for clubbing, cyanosis, or edema. NEUROLOGIC: Cranial nerves II through XII are grossly intact without focal deficits. Motor strength is 5/5 bilaterally intact. Deep tendon reflexes are 2+ plantar. Current Medications Medications (Trade) Dose Ordered Sig/Yessica Route PRN Reason Start Time Stop Time Status Last Admin Dose Admin Acetaminophen (Tylenol) 650 mg Q4H PRN ORAL fever 07/13/18 13:45 08/11/18 21:44 07/16/18 06:12 Dextrose (Dextrose 50%) 25 ml Q30M PRN IV Hypoglycemia 07/13/18 10:15 08/11/18 21:44 Dextrose (Dextrose 50%) 50 ml Q30M PRN IV Hypoglycemia 07/13/18 10:15 08/11/18 21:44 Dextrose/Sodium Chloride 1,000 ml @ 100 mls/hr Q10H IV 07/16/18 04:00 08/15/18 03:59 07/16/18 04:37 Diphenhydramine HCl (Benadryl) 25 mg Q6H PRN ORAL Itching/Pruritis 07/13/18 15:45 08/11/18 21:44 07/15/18 15:08 Metoprolol Tartrate (Lopressor) 25 mg BID ORAL 07/13/18 18:00 08/12/18 07:59 07/15/18 08:47 Metronidazole 100 ml @ 100 mls/hr Q8H IVPB 07/16/18 04:00 07/23/18 03:59 07/16/18 04:37 Mirtazapine (Remeron) 15 mg BEDTIME ORAL 07/13/18 21:00 08/12/18 20:59 07/15/18 20:32 Morphine Sulfate (Morphine Sulfate) 2 mg Q4H PRN IVP severe Pain (Pain Scale 7-10) 07/13/18 13:45 07/19/18 21:44 07/15/18 17:43 Nitroglycerin (Ntg) 0.4 mg Q5M X 3 DOSES PRN SL Prn Chest Pain 07/13/18 10:00 08/11/18 21:44 Ondansetron HCl (Zofran) 4 mg Q6H PRN IVP Nausea & Vomiting 07/13/18 15:45 08/11/18 21:44 07/15/18 20:41 Patient Own Medication (Patient's Own Med) 1 ea DAILY ORAL 07/14/18 09:00 08/13/18 08:59 07/16/18 08:26 Patient Own Medication (Patient's Own Med) 1 ea DAILY ORAL 07/14/18 09:00 08/13/18 08:59 07/16/18 08:27 Piperacillin Sod/ Tazobactam Sod 3.375 gm/Sodium Chloride 110 ml @ 27.5 mls/hr Q8H IVPB 07/16/18 04:00 07/23/18 03:59 07/16/18 04:39 Temazepam (Restoril) 15 mg HSPRN PRN ORAL Insomnia 07/13/18 21:45 07/19/18 21:44 Trimethoprim/ Sulfamethoxazole (Bactrim-DS) 1 tab DAILY ORAL 07/14/18 09:00 07/20/18 08:59 07/16/18 08:26 Vancomycin HCl (Firvanq) 125 mg FOUR TIMES A DAY ORAL 07/14/18 13:00 07/21/18 12:59 07/16/18 08:25 Vancomycin HCl (Vanco rx to dose) 1 ea DAILY PRN MISC Per rx protocol 07/14/18 09:00 08/12/18 07:59 Vancomycin HCl 1 gm/Dextrose 275 ml @ 183.708 mls/hr Q24H IVPB 07/16/18 08:00 07/21/18 07:59 Maite Mobley M.D. July 16, 2018 08:51
[2018-07-16] MEDS: Morphine Sulfate 2mg/ml Inj(IV/IM USE ONLY) IVP PRN (08:53)
[2018-07-16 08:55] LABS: HEMATOCRIT 23.5 % (42.0-52.0); MEAN CORPUSCULAR VOLUME 84 FL (80-99); RED BLOOD COUNT 2.81 M/UL (4.70-6.10); RED CELL DISTRIBUTION WIDTH 17.7 % (11.6-14.8); WHITE BLOOD COUNT 11.7 K/UL (4.8-10.8)
[2018-07-16 08:58] LABS: PLATELET COUNT 6 K/UL (150-450)
[2018-07-16] MEDS ORDERED: Azithromycin 600mg Tab ORAL SCH (09:00)
[2018-07-16 09:07] LABS: ALANINE AMINOTRANSFERASE 12 U/L (12-78); ALBUMIN < 0.6 G/DL (3.4-5.0); ALKALINE PHOSPHATASE 69 U/L (46-116); ANION GAP 9 mmol/L (5-15); ASPARTATE AMINO TRANSFERASE 65 U/L (15-37); BILIRUBIN,TOTAL 0.8 MG/DL (0.2-1.0); BLOOD UREA NITROGEN 56 mg/dL (7-18); CALCIUM 6.5 MG/DL (8.5-10.1); CARBON DIOXIDE 18 MMOL/L (21-32); CHLORIDE 104 MMOL/L (98-107); CREATININE 2.3 MG/DL (0.55-1.30); POTASSIUM 3.9 MMOL/L (3.5-5.1); SODIUM 131 MMOL/L (136-145)
[2018-07-16 09:09] LABS: CREATINE KINASE 25 U/L (26-308); GAMMA GLUTAMYL TRANSPEPTIDASE 18 U/L (5-85); PHOSPHORUS 5.3 MG/DL (2.5-4.9)
[2018-07-16 09:18] LABS: CHOLESTEROL < 50 MG/DL (< 200); HDL CHOLESTEROL 8 MG/DL (40-60); TRIGLYCERIDES 44 MG/DL (30-150)
--- NOTE | 2018-07-16 09:43 | NUR ---
RADIOLOGY DEPT., CHEST X-RAY DONE.-P.DYE
--- NOTE | 2018-07-16 10:08 | Cardiac Electrophysiology PN ---
Assessment/Plan Assessment/Plan 1. Sinus tachycardia with heart rate up to 170s. This is secondary to underlying sepsis. Ruled out for MT. His last echocardiogram showed ejection fraction of 75% but now 45-50%. Currently, the patient has no evidence of atrial fibrillation or supraventricular tachycardia. Continue Lopressor 25 bid VQ low probability for PE. 2. History of hypertension. On Lopressor 25 bid 3. HIV. On Truvada. 4. History of Kaposi's sarcoma. 5. History of pancreatitis, hepatitis B, and hepatitis C. 6. Severe anemia, status post transfusion. 7. History of hyponatremia. 8. Moderate Pulmonary HTN. VQ scan low probability for PE. DW RN Subjective Subjective Sinus tachycardia is better. Got morphine and is sedated. Objective Last 24 Hour Vital Signs Date Time Temp Pulse Resp B/P (MAP) Pulse Ox O2 Delivery O2 Flow Rate FiO2 07/16/18 08:54 125 110/67 07/16/18 08:00 98.2 129 24 100/65 (77) 91 07/16/18 08:00 Room Air 07/16/18 07:31 129 07/16/18 06:42 98.1 07/16/18 04:00 Room Air 07/16/18 04:00 98.1 140 22 98/65 (76) 99 07/16/18 04:00 140 07/16/18 00:00 Room Air 07/16/18 00:00 138 07/16/18 00:00 98.4 137 20 104/65 (78) 94 07/15/18 20:00 132 07/15/18 20:00 Room Air 07/15/18 20:00 98.9 130 20 106/66 (79) 99 07/15/18 17:39 128 92/63 07/15/18 16:00 97.6 131 21 99/63 (75) 95 131 07/15/18 16:00 128 07/15/18 16:00 Room Air 07/15/18 12:01 Room Air 07/15/18 12:00 111 07/15/18 12:00 97.0 123 20 137/60 (85) 95 123 Intake and Output 07/15/18 07/16/18 19:00 07:00 Intake Total 1110 ml 642.958 ml Output Total 740 ml Balance 370 ml 642.958 ml Intake Oral 360 ml 240 ml IV Total 500 ml 402.958 ml Blood Product 250 ml Output Urine Total 740 ml # Voids 2 # Bowel Movements 4 Laboratory Tests Test 07/16/18 08:30 07/16/18 09:00 07/16/18 09:20 White Blood Count 11.7 K/UL (4.8-10.8) H Red Blood Count 2.81 M/UL (4.70-6.10) L Hemoglobin 8.0 G/DL (14.2-18.0) L Hematocrit 23.5 % (42.0-52.0) L Mean Corpuscular Volume 84 FL (80-99) Mean Corpuscular Hemoglobin 28.3 PG (27.0-31.0) Mean Corpuscular Hemoglobin Concent 33.9 G/DL (32.0-36.0) Red Cell Distribution Width 17.7 % (11.6-14.8) H Platelet Count 6 K/UL (150-450) #*L Mean Platelet Volume 9.4 FL (6.5-10.1) Neutrophils (%) (Auto) % (45.0-75.0) Lymphocytes (%) (Auto) % (20.0-45.0) Monocytes (%) (Auto) % (1.0-10.0) Eosinophils (%) (Auto) % (0.0-3.0) Basophils (%) (Auto) % (0.0-2.0) Neutrophils % (Manual) Pending Lymphocytes % (Manual) Pending Platelet Estimate Pending Platelet Morphology Pending Sodium Level 131 MMOL/L (136-145) L Potassium Level 3.9 MMOL/L (3.5-5.1) Chloride Level 104 MMOL/L (98-107) Carbon Dioxide Level 18 MMOL/L (21-32) L Anion Gap 9 mmol/L (5-15) Blood Urea Nitrogen 56 mg/dL (7-18) H Creatinine 2.3 MG/DL (0.55-1.30) H Estimat Glomerular Filtration Rate 38.8 mL/min (>60) Glucose Level 72 MG/DL (74-106) L Hemoglobin A1c 4.8 % (4.3-6.0) Uric Acid 6.0 MG/DL (2.6-7.2) Calcium Level 6.5 MG/DL (8.5-10.1) L Phosphorus Level 5.3 MG/DL (2.5-4.9) H Magnesium Level 1.8 MG/DL (1.8-2.4) Total Bilirubin 0.8 MG/DL (0.2-1.0) Gamma Glutamyl Transpeptidase 18 U/L (5-85) Aspartate Amino Transf (AST/SGOT) 65 U/L (15-37) H Alanine Aminotransferase (ALT/SGPT) 12 U/L (12-78) Alkaline Phosphatase 69 U/L (46-116) Total Creatine Kinase 25 U/L (26-308) L C-Reactive Protein, Quantitative 28.3 mg/dL (0.00-0.90) H Pro-B-Type Natriuretic Peptide 3949 pg/mL (0-125) H Total Protein 4.3 G/DL (6.4-8.2) L Albumin < 0.6 G/DL (3.4-5.0) L Globulin g/dL Triglycerides Level 44 MG/DL (30-150) Cholesterol Level < 50 MG/DL (< 200) LDL Cholesterol 8 mg/dL (<100) HDL Cholesterol 8 MG/DL (40-60) L Cholesterol/HDL Ratio 6.3 (3.3-4.4) H Thyroid Stimulating Hormone (TSH) 1.904 uiU/mL (0.358-3.740) Cortisol AM Sample Pending Urine Eosinophils Pending Stool Occult Blood Pending Objective HEAD AND NECK: No jugular venous distention. LUNGS: Clear. CARDIOVASCULAR: Tachycardic S1, S2 with no gallop or murmur. ABDOMEN: Soft. EXTREMITIES: No pitting edema. Toney Howe MD July 16, 2018 10:08
--- NOTE | 2018-07-16 10:47 | Nephrology Progress Note ---
Assessment/Plan Problem List: (1) REENA (acute kidney injury) (2) Sinus tachycardia (3) Electrolyte imbalance (4) HIV disease (5) Kaposi disease (6) Sepsis (7) Hepatitis B (8) Hepatitis C (9) Protein-calorie malnutrition, severe Assessment Acute renal failure Cr 1.2 up to 2 Acute worsening Anemia Hgb 8.5 to mid 6 severe hypoalbuminemia / Malnutrition Hypotensive / Tachycardia / Sepsis Plan Avoid Nephrotoxics as possible ( Bactrim..... urine studies Keep BP over 100 syst monitor renal parameters saline infusion in view of low Urine Na and Low S Na per consultants poor prognosis Subjective ROS Limited/Unobtainable: No Constitutional: Reports: malaise, weakness Objective Objective Last 24 Hour Vital Signs Date Time Temp Pulse Resp B/P (MAP) Pulse Ox O2 Delivery O2 Flow Rate FiO2 07/16/18 08:54 125 110/67 07/16/18 08:00 98.2 129 24 100/65 (77) 91 07/16/18 08:00 Room Air 07/16/18 07:31 129 07/16/18 06:42 98.1 07/16/18 04:00 Room Air 07/16/18 04:00 98.1 140 22 98/65 (76) 99 07/16/18 04:00 140 07/16/18 00:00 Room Air 07/16/18 00:00 138 07/16/18 00:00 98.4 137 20 104/65 (78) 94 07/15/18 20:00 132 07/15/18 20:00 Room Air 07/15/18 20:00 98.9 130 20 106/66 (79) 99 07/15/18 17:39 128 92/63 07/15/18 16:00 97.6 131 21 99/63 (75) 95 131 07/15/18 16:00 128 07/15/18 16:00 Room Air 07/15/18 12:01 Room Air 07/15/18 12:00 111 07/15/18 12:00 97.0 123 20 137/60 (85) 95 123 Intake and Output 07/15/18 07/16/18 19:00 07:00 Intake Total 1110 ml 642.958 ml Output Total 740 ml Balance 370 ml 642.958 ml Intake Oral 360 ml 240 ml IV Total 500 ml 402.958 ml Blood Product 250 ml Output Urine Total 740 ml # Voids 2 # Bowel Movements 4 Laboratory Tests 07/16/18 08:30: White Blood Count 11.7H, Red Blood Count 2.81L, Hemoglobin 8.0L, Hematocrit 23.5L, Mean Corpuscular Volume 84, Mean Corpuscular Hemoglobin 28.3, Mean Corpuscular Hemoglobin Concent 33.9, Red Cell Distribution Width 17.7H, Platelet Count 6#*L, Mean Platelet Volume 9.4, Neutrophils (%) (Auto) , Lymphocytes (%) (Auto) , Monocytes (%) (Auto) , Eosinophils (%) (Auto) , Basophils (%) (Auto) , Neutrophils % (Manual) [Pending], Lymphocytes % (Manual) [Pending], Platelet Estimate [Pending], Platelet Morphology [Pending], Sodium Level 131L, Potassium Level 3.9, Chloride Level 104, Carbon Dioxide Level 18L, Anion Gap 9, Blood Urea Nitrogen 56H, Creatinine 2.3H, Estimat Glomerular Filtration Rate 38.8, Glucose Level 72L, Hemoglobin A1c 4.8, Uric Acid 6.0, Calcium Level 6.5L, Phosphorus Level 5.3H, Magnesium Level 1.8, Total Bilirubin 0.8, Gamma Glutamyl Transpeptidase 18, Aspartate Amino Transf (AST/SGOT) 65H, Alanine Aminotransferase (ALT/SGPT) 12, Alkaline Phosphatase 69, Total Creatine Kinase 25L, C-Reactive Protein, Quantitative 28.3H, Pro-B-Type Natriuretic Peptide 3949H, Total Protein 4.3L, Albumin < 0.6L, Globulin , Triglycerides Level 44, Cholesterol Level < 50, LDL Cholesterol 8, HDL Cholesterol 8L, Cholesterol/HDL Ratio 6.3H, Thyroid Stimulating Hormone (TSH) 1.904, Cortisol AM Sample [Pending] 07/16/18 09:00: Urine Eosinophils [Pending] 07/16/18 09:20: Stool Occult Blood [Pending] Height (Feet): 6 Height (Inches): 0.00 Weight (Pounds): 142 Cardiovascular: tachycardia Respiratory/Chest: decreased breath sounds Abdomen: distended Adam Aguiar MD July 16, 2018 10:47
--- NOTE | 2018-07-16 10:59 | Pulmonology Progress Note ---
Assessment/Plan Problems: (1) Severe sepsis (2) HIV disease (3) Sinus tachycardia (4) Anemia (5) Hepatitis C (6) Hepatitis B (7) Kaposi disease (8) Castleman disease (9) Protein-calorie malnutrition, severe Assessment/Plan hematology consult. DC Zosyn and Bacrim b/o thrombocytopenia, no evidence of gram negative sepsis f/u ID recommendation CD counts are pending, still escobedo cultures,a ll negative so far pt refused previously excisional LN biopsy. symptomatic treatment check stool for OB Subjective ROS Limited/Unobtainable: No Constitutional: Reports: no symptoms HEENT: Repors: no symptoms Respiratory: Reports: no symptoms Allergies: Coded Allergies: No Known Allergies (Unverified , 10/21/17) Objective Last 24 Hour Vital Signs Date Time Temp Pulse Resp B/P (MAP) Pulse Ox O2 Delivery O2 Flow Rate FiO2 07/16/18 08:54 125 110/67 07/16/18 08:00 98.2 129 24 100/65 (77) 91 07/16/18 08:00 Room Air 07/16/18 07:31 129 07/16/18 06:42 98.1 07/16/18 04:00 Room Air 07/16/18 04:00 98.1 140 22 98/65 (76) 99 07/16/18 04:00 140 07/16/18 00:00 Room Air 07/16/18 00:00 138 07/16/18 00:00 98.4 137 20 104/65 (78) 94 07/15/18 20:00 132 07/15/18 20:00 Room Air 07/15/18 20:00 98.9 130 20 106/66 (79) 99 07/15/18 17:39 128 92/63 07/15/18 16:00 97.6 131 21 99/63 (75) 95 131 07/15/18 16:00 128 07/15/18 16:00 Room Air 07/15/18 12:01 Room Air 07/15/18 12:00 111 07/15/18 12:00 97.0 123 20 137/60 (85) 95 123 Intake and Output 07/15/18 07/16/18 19:00 07:00 Intake Total 1110 ml 642.958 ml Output Total 740 ml Balance 370 ml 642.958 ml Intake Oral 360 ml 240 ml IV Total 500 ml 402.958 ml Blood Product 250 ml Output Urine Total 740 ml # Voids 2 # Bowel Movements 4 General Appearance: WD/WN HEENT: normocephalic, atraumatic Respiratory/Chest: chest wall non-tender, lungs clear Cardiovascular: normal peripheral pulses, normal rate Abdomen: normal bowel sounds, soft, non tender Genitourinary: normal external genitalia Neurologic/Psychiatric: padder II-XII grossly normal, abnormal gait Lymphatic: no neck adenopathy Musculoskeletal: normal muscle bulk Laboratory Tests 07/16/18 08:30: White Blood Count 11.7H, Red Blood Count 2.81L, Hemoglobin 8.0L, Hematocrit 23.5L, Mean Corpuscular Volume 84, Mean Corpuscular Hemoglobin 28.3, Mean Corpuscular Hemoglobin Concent 33.9, Red Cell Distribution Width 17.7H, Platelet Count 6#*L, Mean Platelet Volume 9.4, Neutrophils (%) (Auto) , Lymphocytes (%) (Auto) , Monocytes (%) (Auto) , Eosinophils (%) (Auto) , Basophils (%) (Auto) , Neutrophils % (Manual) [Pending], Lymphocytes % (Manual) [Pending], Platelet Estimate [Pending], Platelet Morphology [Pending], Sodium Level 131L, Potassium Level 3.9, Chloride Level 104, Carbon Dioxide Level 18L, Anion Gap 9, Blood Urea Nitrogen 56H, Creatinine 2.3H, Estimat Glomerular Filtration Rate 38.8, Glucose Level 72L, Hemoglobin A1c 4.8, Uric Acid 6.0, Calcium Level 6.5L, Phosphorus Level 5.3H, Magnesium Level 1.8, Total Bilirubin 0.8, Gamma Glutamyl Transpeptidase 18, Aspartate Amino Transf (AST/SGOT) 65H, Alanine Aminotransferase (ALT/SGPT) 12, Alkaline Phosphatase 69, Total Creatine Kinase 25L, C-Reactive Protein, Quantitative 28.3H, Pro-B-Type Natriuretic Peptide 3949H, Total Protein 4.3L, Albumin < 0.6L, Globulin , Triglycerides Level 44, Cholesterol Level < 50, LDL Cholesterol 8, HDL Cholesterol 8L, Cholesterol/HDL Ratio 6.3H, Thyroid Stimulating Hormone (TSH) 1.904, Cortisol AM Sample [Pending] 07/16/18 09:00: Urine Eosinophils [Pending] 07/16/18 09:20: Stool Occult Blood [Pending] Current Medications Medications (Trade) Dose Ordered Sig/Yessica Route PRN Reason Start Time Stop Time Status Last Admin Dose Admin Acetaminophen (Tylenol) 650 mg Q4H PRN ORAL fever 07/13/18 13:45 08/11/18 21:44 07/16/18 06:12 Azithromycin (Zithromax) 1,200 mg ONCE A WEEK ORAL 07/16/18 09:00 07/23/18 08:59 07/16/18 10:02 Dextrose (Dextrose 50%) 25 ml Q30M PRN IV Hypoglycemia 07/13/18 10:15 08/11/18 21:44 Dextrose (Dextrose 50%) 50 ml Q30M PRN IV Hypoglycemia 07/13/18 10:15 08/11/18 21:44 Dextrose/Sodium Chloride 1,000 ml @ 50 mls/hr Q20H IV 07/17/18 04:00 08/15/18 03:59 UNV Diphenhydramine HCl (Benadryl) 25 mg Q6H PRN ORAL Itching/Pruritis 07/13/18 15:45 08/11/18 21:44 07/15/18 15:08 Metoprolol Tartrate (Lopressor) 25 mg BID ORAL 07/13/18 18:00 08/12/18 07:59 07/16/18 08:54 Metronidazole 100 ml @ 100 mls/hr Q8H IVPB 07/16/18 04:00 07/23/18 03:59 07/16/18 04:37 Mirtazapine (Remeron) 15 mg BEDTIME ORAL 07/13/18 21:00 08/12/18 20:59 07/15/18 20:32 Morphine Sulfate (Morphine Sulfate) 2 mg Q4H PRN IVP severe Pain (Pain Scale 7-10) 07/13/18 13:45 07/19/18 21:44 07/16/18 08:53 Nitroglycerin (Ntg) 0.4 mg Q5M X 3 DOSES PRN SL Prn Chest Pain 07/13/18 10:00 08/11/18 21:44 Ondansetron HCl (Zofran) 4 mg Q6H PRN IVP Nausea & Vomiting 07/13/18 15:45 08/11/18 21:44 07/15/18 20:41 Pantoprazole (Protonix) 40 mg EVERY 12 HOURS ORAL 07/16/18 21:00 08/15/18 20:59 UNV Patient Own Medication (Patient's Own Med) 1 ea DAILY ORAL 07/14/18 09:00 08/13/18 08:59 07/16/18 08:26 Patient Own Medication (Patient's Own Med) 1 ea DAILY ORAL 07/14/18 09:00 08/13/18 08:59 07/16/18 08:27 Piperacillin Sod/ Tazobactam Sod 3.375 gm/Sodium Chloride 110 ml @ 27.5 mls/hr Q8H IVPB 07/16/18 04:00 07/23/18 03:59 07/16/18 04:39 Sodium Chloride 250 ml @ 30 mls/hr ONCE ONCE IV 07/16/18 10:45 07/16/18 19:04 UNV Temazepam (Restoril) 15 mg HSPRN PRN ORAL Insomnia 07/13/18 21:45 07/19/18 21:44 Trimethoprim/ Sulfamethoxazole (Bactrim-DS) 1 tab DAILY ORAL 07/14/18 09:00 07/20/18 08:59 07/16/18 08:26 Vancomycin HCl (Firvanq) 125 mg FOUR TIMES A DAY ORAL 07/14/18 13:00 07/21/18 12:59 07/16/18 08:25 Vancomycin HCl (Vanco rx to dose) 1 ea DAILY PRN MISC Per rx protocol 07/14/18 09:00 08/12/18 07:59 Vancomycin HCl 1 gm/Dextrose 275 ml @ 183.708 mls/hr Q24H IVPB 07/16/18 08:00 07/21/18 07:59 07/16/18 10:05 Ya Hester MD July 16, 2018 10:59
[2018-07-16] MEDS: D5NS 1,000 ML IV SCH (11:00)
--- NOTE | 2018-07-16 11:45 | General Progress Note ---
Assessment/Plan Assessment/Plan: (1) Dehydration (2) Electrolyte imbalance (3) Castleman disease (4) HIV disease (5) Anemia (6) C. difficile colitis (7) Nausea, vomiting, and diarrhea (8) Protein-calorie malnutrition, severe Plan refused GI procedures cdiff positive IV/PO hydration + electrolyte correction zofran prn monitor H&H, prn transfusions, last unit yesterday on po vanco will and iv flagyl recommend dc other abx if ok with ID venofer follow labs poor prognosis Subjective ROS Limited/Unobtainable: Yes Allergies: Coded Allergies: No Known Allergies (Unverified , 10/21/17) Subjective diarrhea Objective Last 24 Hour Vital Signs Date Time Temp Pulse Resp B/P (MAP) Pulse Ox O2 Delivery O2 Flow Rate FiO2 07/16/18 08:54 125 110/67 07/16/18 08:00 98.2 129 24 100/65 (77) 91 07/16/18 08:00 Room Air 07/16/18 07:31 129 07/16/18 06:42 98.1 07/16/18 04:00 Room Air 07/16/18 04:00 98.1 140 22 98/65 (76) 99 07/16/18 04:00 140 07/16/18 00:00 Room Air 07/16/18 00:00 138 07/16/18 00:00 98.4 137 20 104/65 (78) 94 07/15/18 20:00 132 07/15/18 20:00 Room Air 07/15/18 20:00 98.9 130 20 106/66 (79) 99 07/15/18 17:39 128 92/63 07/15/18 16:00 97.6 131 21 99/63 (75) 95 131 07/15/18 16:00 128 07/15/18 16:00 Room Air 07/15/18 12:01 Room Air 07/15/18 12:00 111 07/15/18 12:00 97.0 123 20 137/60 (85) 95 123 Intake and Output 07/15/18 07/16/18 19:00 07:00 Intake Total 1110 ml 642.958 ml Output Total 740 ml Balance 370 ml 642.958 ml Intake Oral 360 ml 240 ml IV Total 500 ml 402.958 ml Blood Product 250 ml Output Urine Total 740 ml # Voids 2 # Bowel Movements 4 Laboratory Tests 07/16/18 08:30: White Blood Count 11.7H, Red Blood Count 2.81L, Hemoglobin 8.0L, Hematocrit 23.5L, Mean Corpuscular Volume 84, Mean Corpuscular Hemoglobin 28.3, Mean Corpuscular Hemoglobin Concent 33.9, Red Cell Distribution Width 17.7H, Platelet Count 6#*L, Mean Platelet Volume 9.4, Neutrophils (%) (Auto) , Lymphocytes (%) (Auto) , Monocytes (%) (Auto) , Eosinophils (%) (Auto) , Basophils (%) (Auto) , Differential Total Cells Counted 100, Neutrophils % ( Manual) 75, Lymphocytes % (Manual) 8L, Monocytes % (Manual) 2, Eosinophils % ( Manual) 1, Basophils % (Manual) 0, Band Neutrophils 14H, Nucleated Red Blood Cells 1, Platelet Estimate DecreasedL, Platelet Morphology Normal, Polychromasia 1+, Anisocytosis 2+, Sodium Level 131L, Potassium Level 3.9, Chloride Level 104, Carbon Dioxide Level 18L, Anion Gap 9, Blood Urea Nitrogen 56H, Creatinine 2.3H, Estimat Glomerular Filtration Rate 38.8, Glucose Level 72L , Hemoglobin A1c 4.8, Uric Acid 6.0, Calcium Level 6.5L, Phosphorus Level 5.3H, Magnesium Level 1.8, Total Bilirubin 0.8, Gamma Glutamyl Transpeptidase 18, Aspartate Amino Transf (AST/SGOT) 65H, Alanine Aminotransferase (ALT/SGPT) 12, Alkaline Phosphatase 69, Total Creatine Kinase 25L, C-Reactive Protein, Quantitative 28.3H, Pro-B-Type Natriuretic Peptide 3949H, Total Protein 4.3L, Albumin < 0.6L, Globulin , Triglycerides Level 44, Cholesterol Level < 50, LDL Cholesterol 8, HDL Cholesterol 8L, Cholesterol/HDL Ratio 6.3H, Thyroid Stimulating Hormone (TSH) 1.904, Cortisol AM Sample [Pending] 07/16/18 09:00: Urine Eosinophils [Pending] 07/16/18 09:20: Stool Occult Blood Positive Height (Feet): 6 Height (Inches): 0.00 Weight (Pounds): 142 General Appearance: lethargic EENT: normal ENT inspection Neck: supple Cardiovascular: normal rate Respiratory/Chest: decreased breath sounds Abdomen: normal bowel sounds, non tender, soft Extremities: non-tender Michael Grande MD July 16, 2018 11:45
[2018-07-16 12:00] VITALS: BP 95/60
[2018-07-16] MEDS ORDERED: NaCl 3% 500ml 250 ML IV ONE (12:00)
--- NOTE | 2018-07-16 12:00 | NUR ---
NURSE NOTES: Patient blood pressure noted 80s/50s with HR of 100 after 3 assessments. Patient alert and oriented x 4. SpO2 95% 2LNC. Patient platelet also noted at 6,000. Called and informed Dr. Padron regarding situation. MD ordered NS 500 ml bolus x 1. Transfuse 6 units of plateletpheresis and get STAT CBC redraw. Hold Plateletpheresis transfusion until CBC is redrawn and contact Dr. Padron to report new platelet level. Orders entered, noted, and carried out. Will continue to monitor patient. Charge nurse made aware.
--- NOTE | 2018-07-16 12:01 | Hematology/Onc Progress Note ---
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 Hx of HIV, CD4 count very low. He has a very poor memory, says was treated at [facility] S/P Chemo ending 07/17/17. Last PET 08/12 - show stable/not worsening lymphadenopathy. Has very extensive disease on ct scan lympahdenopathy noted throughout, final results of axilla lymphadenopathy biopsy on 05/25/18, and FINAL results from prior admission are nondiagnostic --> I talked with him regarding getting potentially another biopsy (bulky lymph node v bone marrow biopsy) he has thus far refused -- HE HAS BEEN NONCOMPLIANT --> IL-6 was 54 in the past indicating active disease, needs close followup with heme outpatient, would again recommend first a biopsy and further recommendations after procedure --> inflammatory makers are elevated which can be c/w flare but are fairly non- specific --> imaging is ordered as well --> outpatient f/u as well for futher therapy prn --> treat underlying HIV as per ID service --> plt trend 39-->34-->25-->26k-->23k-->15k-->9k # Anemia of chronic disease -- workup has been reviewed --> esr elevated, as is crp --> transfuse if hgb <7 => hgb trend 7.5-->7.4-->7.8-->6.7-->8 --> transfuse 2u prbc 07/15 # Anemia of folic acid deficiency --> start patient on folic acid 1mg po daily, continue given low levels # DVT hx that was diagnosed at outpatient hospital --> inpatient venous duplex is negative for thromboembolism, therefore DOES not require anticoagulants --> have discussed this with patients and patient's mother # Sepsis - PNA, [place], other infection, TB? --> on HIV meds, abx as needed --> continue as per ID # HIV - On Tivicay and Truvada and Bactrim, CD4 count 64 --> VL pending, CD4 count ordered <100 --> IL-6 is 51 # REENA cr 1.2-->1.1 The timing of this note does not necessarily reflect the time of the patient was seen. Greatly appreciate consultation. Subjective Constitutional: Denies: no symptoms, chills, fever, malaise, weakness, other HEENT: Denies: no symptoms, eye pain, blurred vision, tearing, double vision, ear pain, ear discharge, nose pain, nose congestion, throat pain, throat swelling, mouth pain, mouth swelling, other Cardiovascular: Denies: no symptoms, chest pain, edema, irregular heart rate, lightheadedness, palpitations, syncope, other Respiratory: Denies: no symptoms, cough, shortness of breath, SOB with excertion, SOB at rest, sputum, wheezing, other Gastrointestinal/Abdominal: Denies: no symptoms, abdomen distended, abdominal pain, black stools, tarry stools, blood in stool, constipated, diarrhea, difficulty swallowing, nausea, poor appetite, poor fluid intake, rectal bleeding , vomiting, other Genitourinary: Denies: no symptoms, burning, discharge, frequency, flank pain, hematuria, incontinence, pain, urgency, other Neurologic/Psychiatric: Denies: no symptoms, anxiety, depressed, emotional problems, headache, numbness, paresthesia, pre-existing deficit, seizure, tingling, tremors, weakness, other Endocrine: Denies: no symptoms, excessive sweating, flushing, intolerance to cold, intolerance to heat, increased hunger, increased thirst, increased urine, unexplained weight gain, unexplained weight loss, other Hematologic/Lymphatic: Denies: no symptoms, anemia, easy bleeding, easy bruising, adenopathy, other Allergies: Coded Allergies: No Known Allergies (Unverified , 10/21/17) Subjective 07/16: no events noted, no f/c, plt count 6k, again stressed importance of a bone marrow biopsy, he refused Objective Objective Current Medications Medications (Trade) Dose Ordered Sig/Yessica Route PRN Reason Start Time Stop Time Status Last Admin Dose Admin Acetaminophen (Tylenol) 650 mg Q4H PRN ORAL fever 07/13/18 13:45 08/11/18 21:44 07/16/18 06:12 Azithromycin (Zithromax) 1,200 mg ONCE A WEEK ORAL 07/16/18 09:00 07/23/18 08:59 07/16/18 10:02 Dextrose (Dextrose 50%) 25 ml Q30M PRN IV Hypoglycemia 07/13/18 10:15 08/11/18 21:44 Dextrose (Dextrose 50%) 50 ml Q30M PRN IV Hypoglycemia 07/13/18 10:15 08/11/18 21:44 Dextrose/Sodium Chloride 1,000 ml @ 50 mls/hr Q20H IV 07/16/18 11:00 08/15/18 10:59 07/16/18 11:00 Diphenhydramine HCl (Benadryl) 25 mg Q6H PRN ORAL Itching/Pruritis 07/13/18 15:45 08/11/18 21:44 07/15/18 15:08 Metoprolol Tartrate (Lopressor) 25 mg BID ORAL 07/13/18 18:00 08/12/18 07:59 07/16/18 08:54 Metronidazole 100 ml @ 100 mls/hr Q8H IVPB 07/16/18 04:00 07/23/18 03:59 07/16/18 04:37 Mirtazapine (Remeron) 15 mg BEDTIME ORAL 07/13/18 21:00 08/12/18 20:59 07/15/18 20:32 Morphine Sulfate (Morphine Sulfate) 2 mg Q4H PRN IVP severe Pain (Pain Scale 7-10) 07/13/18 13:45 07/19/18 21:44 07/16/18 08:53 Nitroglycerin (Ntg) 0.4 mg Q5M X 3 DOSES PRN SL Prn Chest Pain 07/13/18 10:00 08/11/18 21:44 Ondansetron HCl (Zofran) 4 mg Q6H PRN IVP Nausea & Vomiting 07/13/18 15:45 08/11/18 21:44 07/15/18 20:41 Pantoprazole (Protonix) 40 mg EVERY 12 HOURS ORAL 07/16/18 21:00 08/15/18 20:59 Patient Own Medication (Patient's Own Med) 1 ea DAILY ORAL 07/14/18 09:00 08/13/18 08:59 07/16/18 08:26 Patient Own Medication (Patient's Own Med) 1 ea DAILY ORAL 07/14/18 09:00 08/13/18 08:59 07/16/18 08:27 Sodium Chloride 250 ml @ 30 mls/hr ONCE ONCE IV 07/16/18 12:00 07/16/18 20:19 Temazepam (Restoril) 15 mg HSPRN PRN ORAL Insomnia 07/13/18 21:45 07/19/18 21:44 Vancomycin HCl (Firvanq) 125 mg FOUR TIMES A DAY ORAL 07/14/18 13:00 07/21/18 12:59 07/16/18 08:25 Vancomycin HCl (Vanco rx to dose) 1 ea DAILY PRN MISC Per rx protocol 07/14/18 09:00 08/12/18 07:59 Vancomycin HCl 1 gm/Dextrose 275 ml @ 183.708 mls/hr Q24H IVPB 07/16/18 08:00 07/21/18 07:59 07/16/18 10:05 Last 24 Hour Vital Signs Date Time Temp Pulse Resp B/P (MAP) Pulse Ox O2 Delivery O2 Flow Rate FiO2 07/16/18 08:54 125 110/67 07/16/18 08:00 98.2 129 24 100/65 (77) 91 07/16/18 08:00 Room Air 07/16/18 07:31 129 07/16/18 06:42 98.1 07/16/18 04:00 Room Air 07/16/18 04:00 98.1 140 22 98/65 (76) 99 07/16/18 04:00 140 07/16/18 00:00 Room Air 07/16/18 00:00 138 07/16/18 00:00 98.4 137 20 104/65 (78) 94 07/15/18 20:00 132 07/15/18 20:00 Room Air 07/15/18 20:00 98.9 130 20 106/66 (79) 99 07/15/18 17:39 128 92/63 07/15/18 16:00 97.6 131 21 99/63 (75) 95 131 07/15/18 16:00 128 07/15/18 16:00 Room Air 07/15/18 12:01 Room Air 07/15/18 12:00 111 07/15/18 12:00 97.0 123 20 137/60 (85) 95 123 07/15/18 08:47 133 97/51 5/29/19 08:01 Room Air 07/15/18 08:00 98.6 135 19 97/51 (66) 94 135 07/15/18 07:35 142 07/15/18 04:00 Room Air 07/15/18 04:00 99.3 140 24 105/68 (80) 100 140 07/15/18 03:18 131 07/15/18 00:27 98.5 122 21 91/66 (74) 99 122 07/15/18 00:00 Room Air 07/14/18 23:33 120 07/14/18 20:00 Room Air 07/14/18 20:00 99.0 120 22 85/57 (66) 100 120 07/14/18 19:10 118 07/14/18 18:00 120 90/55 07/14/18 16:00 120 07/14/18 16:00 Room Air 07/14/18 16:00 98.9 115 21 90/55 (67) 100 115 07/14/18 12:00 Room Air 07/14/18 12:00 131 Intake and Output 07/15/18 07/16/18 19:00 07:00 Intake Total 1110 ml 642.958 ml Output Total 740 ml Balance 370 ml 642.958 ml Intake Oral 360 ml 240 ml IV Total 500 ml 402.958 ml Blood Product 250 ml Output Urine Total 740 ml # Voids 2 # Bowel Movements 4 Labs Test 07/13/18 15:36 07/13/18 21:46 07/14/18 08:55 07/15/18 08:35 White Blood Count 10.9 K/UL (4.8-10.8) 12.5 K/UL (4.8-10.8) 11.6 K/UL (4.8-10.8) Red Blood Count 2.78 M/UL (4.70-6.10) 2.51 M/UL (4.70-6.10) 2.44 M/UL (4.70-6.10) Hemoglobin 7.4 G/DL (14.2-18.0) 6.9 G/DL (14.2-18.0) 6.7 G/DL (14.2-18.0) Hematocrit 21.9 % (42.0-52.0) 20.7 % (42.0-52.0) 20.0 % (42.0-52.0) Mean Corpuscular Volume 79 FL (80-99) 82 FL (80-99) 82 FL (80-99) Mean Corpuscular Hemoglobin 26.6 PG (27.0-31.0) 27.3 PG (27.0-31.0) 27.5 PG (27.0-31.0) Mean Corpuscular Hemoglobin Concent 33.7 G/DL (32.0-36.0) 33.2 G/DL (32.0-36.0) 33.5 G/DL (32.0-36.0) Red Cell Distribution Width 20.3 % (11.6-14.8) 21.3 % (11.6-14.8) 19.6 % (11.6-14.8) Platelet Count 37 K/UL (150-450) 30 K/UL (150-450) 15 K/UL (150-450) Mean Platelet Volume 6.7 FL (6.5-10.1) 7.0 FL (6.5-10.1) 7.1 FL (6.5-10.1) Neutrophils (%) (Auto) % (45.0-75.0) % (45.0-75.0) % (45.0-75.0) Lymphocytes (%) (Auto) % (20.0-45.0) % (20.0-45.0) % (20.0-45.0) Monocytes (%) (Auto) % (1.0-10.0) % (1.0-10.0) % (1.0-10.0) Eosinophils (%) (Auto) % (0.0-3.0) % (0.0-3.0) % (0.0-3.0) Basophils (%) (Auto) % (0.0-2.0) % (0.0-2.0) % (0.0-2.0) Differential Total Cells Counted 100 100 100 Neutrophils % (Manual) 81 % (45-75) 59 % (45-75) 81 % (45-75) Lymphocytes % (Manual) 7 % (20-45) 19 % (20-45) 8 % (20-45) Monocytes % (Manual) 3 % (1-10) 7 % (1-10) 6 % (1-10) Eosinophils % (Manual) 5 % (0-3) 7 % (0-3) 3 % (0-3) Basophils % (Manual) 1 % (0-2) 0 % (0-2) 1 % (0-2) Band Neutrophils 3 % (0-8) 8 % (0-8) 1 % (0-8) Platelet Estimate Decreased Decreased Decreased Platelet Morphology Normal Normal Normal Hypochromasia 1+ 1+ 3+ Anisocytosis 1+ 2+ 2+ Prothrombin Time 14.8 SEC (9.30-11.50) Prothromb Time International Ratio 1.4 (0.9-1.1) Activated Partial Thromboplast Time 53 SEC (23-33) Sodium Level 132 MMOL/L (136-145) 130 MMOL/L (136-145) 130 MMOL/L (136-145) Potassium Level 3.6 MMOL/L (3.5-5.1) 3.9 MMOL/L (3.5-5.1) 3.4 MMOL/L (3.5-5.1) Chloride Level 103 MMOL/L (98-107) 102 MMOL/L (98-107) 104 MMOL/L (98-107) Carbon Dioxide Level 23 MMOL/L (21-32) 20 MMOL/L (21-32) 18 MMOL/L (21-32) Anion Gap 6 mmol/L (5-15) 8 mmol/L (5-15) 8 mmol/L (5-15) Blood Urea Nitrogen 25 mg/dL (7-18) 31 mg/dL (7-18) 37 mg/dL (7-18) Creatinine 1.6 MG/DL (0.55-1.30) 1.7 MG/DL (0.55-1.30) 2.0 MG/DL (0.55-1.30) Estimat Glomerular Filtration Rate 58.9 mL/min (>60) 54.9 mL/min (>60) 45.6 mL/min (>60) Glucose Level 110 MG/DL (74-106) 98 MG/DL (74-106) 89 MG/DL (74-106) Calcium Level 6.7 MG/DL (8.5-10.1) 6.6 MG/DL (8.5-10.1) 6.4 MG/DL (8.5-10.1) Total Bilirubin 0.5 MG/DL (0.2-1.0) 0.5 MG/DL (0.2-1.0) 0.5 MG/DL (0.2-1.0) Aspartate Amino Transf (AST/SGOT) 31 U/L (15-37) 27 U/L (15-37) 30 U/L (15-37) Alanine Aminotransferase (ALT/SGPT) 11 U/L (12-78) < 6 U/L (12-78) < 6 U/L (12-78) Alkaline Phosphatase 67 U/L (46-116) 64 U/L (46-116) 62 U/L (46-116) Total Protein 4.8 G/DL (6.4-8.2) 4.8 G/DL (6.4-8.2) 4.2 G/DL (6.4-8.2) Albumin 0.6 G/DL (3.4-5.0) 0.6 G/DL (3.4-5.0) < 0.6 G/DL (3.4-5.0) Globulin 4.2 g/dL 4.2 g/dL g/dL Albumin/Globulin Ratio 0.1 (1.0-2.7) Amylase Level 27 U/L (25-115) Lipase 49 U/L (73-393) Arterial Blood pH 7.453 (7.350-7.450) Arterial Blood Partial Pressure CO2 25.8 mmHg (35.0-45.0) Arterial Blood Partial Pressure O2 91.7 mmHg (75.0-100.0) Arterial Blood HCO3 17.7 mmol/L (22.0-26.0) Arterial Blood Oxygen Saturation 96.3 % (95-100) Arterial Blood Base Excess -5.5 (-2-2) Shayne Test Positive Polychromasia 1+ Erythrocyte Sedimentation Rate 130 MM/HR (0-15) Phosphorus Level 4.2 MG/DL (2.5-4.9) 4.2 MG/DL (2.5-4.9) Magnesium Level 1.4 MG/DL (1.8-2.4) 1.8 MG/DL (1.8-2.4) C-Reactive Protein, Quantitative 26.1 mg/dL (0.00-0.90) Vancomycin Level Trough 25.2 ug/mL (5.0-12.0) Spherocytes 2+ Test 07/15/18 09:00 07/16/18 08:30 07/16/18 09:00 07/16/18 09:20 Urine Random Sodium < 20 mmol/L (20-110) White Blood Count 11.7 K/UL (4.8-10.8) Red Blood Count 2.81 M/UL (4.70-6.10) Hemoglobin 8.0 G/DL (14.2-18.0) Hematocrit 23.5 % (42.0-52.0) Mean Corpuscular Volume 84 FL (80-99) Mean Corpuscular Hemoglobin 28.3 PG (27.0-31.0) Mean Corpuscular Hemoglobin Concent 33.9 G/DL (32.0-36.0) Red Cell Distribution Width 17.7 % (11.6-14.8) Platelet Count 6 K/UL (150-450) Mean Platelet Volume 9.4 FL (6.5-10.1) Neutrophils (%) (Auto) % (45.0-75.0) Lymphocytes (%) (Auto) % (20.0-45.0) Monocytes (%) (Auto) % (1.0-10.0) Eosinophils (%) (Auto) % (0.0-3.0) Basophils (%) (Auto) % (0.0-2.0) Differential Total Cells Counted 100 Neutrophils % (Manual) 75 % (45-75) Lymphocytes % (Manual) 8 % (20-45) Monocytes % (Manual) 2 % (1-10) Eosinophils % (Manual) 1 % (0-3) Basophils % (Manual) 0 % (0-2) Band Neutrophils 14 % (0-8) Nucleated Red Blood Cells 1 /100 WBC Platelet Estimate Decreased Platelet Morphology Normal Polychromasia 1+ Anisocytosis 2+ Sodium Level 131 MMOL/L (136-145) Potassium Level 3.9 MMOL/L (3.5-5.1) Chloride Level 104 MMOL/L (98-107) Carbon Dioxide Level 18 MMOL/L (21-32) Anion Gap 9 mmol/L (5-15) Blood Urea Nitrogen 56 mg/dL (7-18) Creatinine 2.3 MG/DL (0.55-1.30) Estimat Glomerular Filtration Rate 38.8 mL/min (>60) Glucose Level 72 MG/DL (74-106) Hemoglobin A1c 4.8 % (4.3-6.0) Uric Acid 6.0 MG/DL (2.6-7.2) Calcium Level 6.5 MG/DL (8.5-10.1) Phosphorus Level 5.3 MG/DL (2.5-4.9) Magnesium Level 1.8 MG/DL (1.8-2.4) Total Bilirubin 0.8 MG/DL (0.2-1.0) Gamma Glutamyl Transpeptidase 18 U/L (5-85) Aspartate Amino Transf (AST/SGOT) 65 U/L (15-37) Alanine Aminotransferase (ALT/SGPT) 12 U/L (12-78) Alkaline Phosphatase 69 U/L (46-116) Total Creatine Kinase 25 U/L (26-308) C-Reactive Protein, Quantitative 28.3 mg/dL (0.00-0.90) Pro-B-Type Natriuretic Peptide 3949 pg/mL (0-125) Total Protein 4.3 G/DL (6.4-8.2) Albumin < 0.6 G/DL (3.4-5.0) Globulin g/dL Triglycerides Level 44 MG/DL (30-150) Cholesterol Level < 50 MG/DL (< 200) LDL Cholesterol 8 mg/dL (<100) HDL Cholesterol 8 MG/DL (40-60) Cholesterol/HDL Ratio 6.3 (3.3-4.4) Thyroid Stimulating Hormone (TSH) 1.904 uiU/mL (0.358-3.740) Stool Occult Blood Positive (NEGATIVE) Height (Feet): 6 Height (Inches): 0.00 Weight (Pounds): 142 Objective Physical Exam: Vitals: reviewed General Appearance: NAD HEENT: normocephalic, atraumatic Neck: non-tender, normal alignment Respiratory/Chest: normal breath sounds bilaterally Cardiovascular/Chest: normal peripheral pulses, normal rate Abdomen: normal bowel sounds, soft, nontender Extremities: normal range of motion Jean Bingham MD July 16, 2018 12:01
--- NOTE | 2018-07-16 12:07 | Diagnostic Imaging Report ---
Indication: Shortness of breath Technique: One view of the chest Comparison: 07/12/2018 Findings: Interim development of a moderate size left-sided pleural effusion. And right suprahilar parenchymal opacity persists and is unchanged. Right perihilar nodular opacity persists and is unchanged. Right lateral basilar parenchymal or pleural opacity appears more prominent than on the previous exam. In addition, there is increased perihilar interstitial congestion, although this may be exaggerated by lower lung volumes. Impression: Hypoventilatory exam Moderate left-sided pleural effusion Right-sided parenchymal opacities, likely infiltrates, appear somewhat worsened since previous exam
--- NOTE | 2018-07-16 12:30 | NUR ---
NURSE NOTES: Patient BP after bolus is 105/56 HR 100. A&O x4. SpO2 95%. Will continue to monitor patient.
--- NOTE | 2018-07-16 13:20 | NUR ---
NURSE NOTES: Contacted and informed Dr. Padron of new platelet level of 8,000. Dr. Padron acknowledged and ordered to transfuse 6 units of plateletpheresis. Per Dr. Padron notified this nurse that they spoke with facility pathologist regarding plateletpheresis and that a CBC lab is to be drawn after each unit of plateletpheresis transfused. Orders entered, noted, and carried out. Will continue to monitor patient. Addendum: 07/16/18 at 1622 by MEI HORNER RN NURSE NOTES: Dr. Padron also ordered PICC line insertion. Order entered and noted.
[2018-07-16 13:38] LABS: HEMATOCRIT 27.2 % (42.0-52.0); HEMOGLOBIN 8.8 G/DL (14.2-18.0); MEAN CORPUSCULAR VOLUME 86 FL (80-99); RED BLOOD COUNT 3.17 M/UL (4.70-6.10); RED CELL DISTRIBUTION WIDTH 17.9 % (11.6-14.8); WHITE BLOOD COUNT 14.7 K/UL (4.8-10.8)
[2018-07-16 13:43] LABS: PLATELET COUNT 8 K/UL (150-450)
[2018-07-16] MEDS ORDERED: Heparin1,000 units/500ml Premix(Conc:2 units/ml) IV PRN (14:37)
[2018-07-16] MEDS ORDERED: Lidocaine 1% Plain 30 ml INJ PRN (14:37)
[2018-07-16 16:00] VITALS: BP 101/68
--- NOTE | 2018-07-16 17:27 | Internal Med Progress Note ---
Subjective Date of Service: July 16, 2018 Physician Name Adam Padron Attending Physician Alberto Gtz MD Current Medications Medications (Trade) Dose Ordered Sig/Yessica Route PRN Reason Start Time Stop Time Status Last Admin Dose Admin Acetaminophen (Tylenol) 650 mg Q4H PRN ORAL fever 07/13/18 13:45 08/11/18 21:44 07/16/18 17:19 Azithromycin (Zithromax) 1,200 mg ONCE A WEEK ORAL 07/16/18 09:00 07/23/18 08:59 07/16/18 10:02 Chlorhexidine Gluconate (Felipa-Hex 2%) 1 applic DAILY@2000 TOPIC 07/16/18 20:00 08/15/18 19:59 Dextrose (Dextrose 50%) 25 ml Q30M PRN IV Hypoglycemia 07/13/18 10:15 08/11/18 21:44 Dextrose (Dextrose 50%) 50 ml Q30M PRN IV Hypoglycemia 07/13/18 10:15 08/11/18 21:44 Dextrose/Sodium Chloride 1,000 ml @ 50 mls/hr Q20H IV 07/16/18 11:00 08/15/18 10:59 07/16/18 11:00 Diphenhydramine HCl (Benadryl) 25 mg Q6H PRN ORAL Itching/Pruritis 07/13/18 15:45 08/11/18 21:44 07/15/18 15:08 Heparin Sodium/ Sodium Chloride (Heparin 1000 units/500ml Premix) 1,000 unit ONCE PRN IV PICC 07/16/18 14:37 07/17/18 23:59 Lidocaine HCl (Xylocaine 1% 30ml) 30 ml ONCE PRN INJ picc 07/16/18 14:37 07/17/18 23:59 Metoprolol Tartrate (Lopressor) 25 mg BID ORAL 07/13/18 18:00 08/12/18 07:59 07/16/18 08:54 Metronidazole 100 ml @ 100 mls/hr Q8H IVPB 07/16/18 04:00 07/23/18 03:59 07/16/18 12:14 Mirtazapine (Remeron) 15 mg BEDTIME ORAL 07/13/18 21:00 08/12/18 20:59 07/15/18 20:32 Morphine Sulfate (Morphine Sulfate) 2 mg Q4H PRN IVP severe Pain (Pain Scale 7-10) 07/13/18 13:45 07/19/18 21:44 07/16/18 08:53 Nitroglycerin (Ntg) 0.4 mg Q5M X 3 DOSES PRN SL Prn Chest Pain 07/13/18 10:00 08/11/18 21:44 Ondansetron HCl (Zofran) 4 mg Q6H PRN IVP Nausea & Vomiting 07/13/18 15:45 08/11/18 21:44 07/15/18 20:41 Pantoprazole (Protonix) 40 mg EVERY 12 HOURS ORAL 07/16/18 21:00 08/15/18 20:59 Patient Own Medication (Patient's Own Med) 1 ea DAILY ORAL 07/14/18 09:00 08/13/18 08:59 07/16/18 08:26 Patient Own Medication (Patient's Own Med) 1 ea DAILY ORAL 07/14/18 09:00 08/13/18 08:59 07/16/18 08:27 Sodium Chloride 250 ml @ 30 mls/hr ONCE ONCE IV 07/16/18 12:00 07/16/18 20:19 07/16/18 14:13 Temazepam (Restoril) 15 mg HSPRN PRN ORAL Insomnia 07/13/18 21:45 07/19/18 21:44 Vancomycin HCl (Firvanq) 125 mg FOUR TIMES A DAY ORAL 07/14/18 13:00 07/21/18 12:59 07/16/18 17:19 Vancomycin HCl (Vanco rx to dose) 1 ea DAILY PRN MISC Per rx protocol 07/14/18 09:00 08/12/18 07:59 Allergies: Coded Allergies: No Known Allergies (Unverified , 10/21/17) ROS Limited/Unobtainable: No Constitutional: Reports: no symptoms HEENT: Reports: no symptoms Cardiovascular: Reports: no symptoms Respiratory: Reports: no symptoms Gastrointestinal/Abdominal: Reports: no symptoms Genitourinary: Reports: no symptoms Neurologic/Psychiatric: Reports: no symptoms Subjective 37 YO M with HIV admitted with abdominal pain, nausea and vomiting. Now clostridium difficile diarrhea. Cover for Int Med-Dr Gtz. SOFIA Objective Last Vital Signs Date Time Temp Pulse Resp B/P (MAP) Pulse Ox O2 Delivery O2 Flow Rate FiO2 07/16/18 16:00 Room Air 07/16/18 12:00 97.2 109 24 95/60 (72) 100 Laboratory Tests Test 07/16/18 08:30 07/16/18 09:00 07/16/18 09:20 07/16/18 13:20 White Blood Count 11.7 K/UL (4.8-10.8) H 14.7 K/UL (4.8-10.8) H Red Blood Count 2.81 M/UL (4.70-6.10) L 3.17 M/UL (4.70-6.10) L Hemoglobin 8.0 G/DL (14.2-18.0) L 8.8 G/DL (14.2-18.0) L Hematocrit 23.5 % (42.0-52.0) L 27.2 % (42.0-52.0) L Mean Corpuscular Volume 84 FL (80-99) 86 FL (80-99) Mean Corpuscular Hemoglobin 28.3 PG (27.0-31.0) 27.8 PG (27.0-31.0) Mean Corpuscular Hemoglobin Concent 33.9 G/DL (32.0-36.0) 32.3 G/DL (32.0-36.0) Red Cell Distribution Width 17.7 % (11.6-14.8) H 17.9 % (11.6-14.8) H Platelet Count 6 K/UL (150-450) #*L 8 K/UL (150-450) *L Mean Platelet Volume 9.4 FL (6.5-10.1) 10.5 FL (6.5-10.1) H Neutrophils (%) (Auto) % (45.0-75.0) % (45.0-75.0) Lymphocytes (%) (Auto) % (20.0-45.0) % (20.0-45.0) Monocytes (%) (Auto) % (1.0-10.0) % (1.0-10.0) Eosinophils (%) (Auto) % (0.0-3.0) % (0.0-3.0) Basophils (%) (Auto) % (0.0-2.0) % (0.0-2.0) Differential Total Cells Counted 100 100 Neutrophils % (Manual) 75 % (45-75) 74 % (45-75) Lymphocytes % (Manual) 8 % (20-45) L 5 % (20-45) L Monocytes % (Manual) 2 % (1-10) 1 % (1-10) Eosinophils % (Manual) 1 % (0-3) 3 % (0-3) Basophils % (Manual) 0 % (0-2) 0 % (0-2) Band Neutrophils 14 % (0-8) H 17 % (0-8) H Nucleated Red Blood Cells 1 /100 WBC 1 /100 WBC Platelet Estimate Decreased L Decreased L Platelet Morphology Normal Normal Polychromasia 1+ Occasional Anisocytosis 2+ 1+ Sodium Level 131 MMOL/L (136-145) L Potassium Level 3.9 MMOL/L (3.5-5.1) Chloride Level 104 MMOL/L (98-107) Carbon Dioxide Level 18 MMOL/L (21-32) L Anion Gap 9 mmol/L (5-15) Blood Urea Nitrogen 56 mg/dL (7-18) H Creatinine 2.3 MG/DL (0.55-1.30) H Estimat Glomerular Filtration Rate 38.8 mL/min (>60) Glucose Level 72 MG/DL (74-106) L Hemoglobin A1c 4.8 % (4.3-6.0) Uric Acid 6.0 MG/DL (2.6-7.2) Calcium Level 6.5 MG/DL (8.5-10.1) L Phosphorus Level 5.3 MG/DL (2.5-4.9) H Magnesium Level 1.8 MG/DL (1.8-2.4) Total Bilirubin 0.8 MG/DL (0.2-1.0) Gamma Glutamyl Transpeptidase 18 U/L (5-85) Aspartate Amino Transf (AST/SGOT) 65 U/L (15-37) H Alanine Aminotransferase (ALT/SGPT) 12 U/L (12-78) Alkaline Phosphatase 69 U/L (46-116) Total Creatine Kinase 25 U/L (26-308) L C-Reactive Protein, Quantitative 28.3 mg/dL (0.00-0.90) H Pro-B-Type Natriuretic Peptide 3949 pg/mL (0-125) H Total Protein 4.3 G/DL (6.4-8.2) L Albumin < 0.6 G/DL (3.4-5.0) L Globulin g/dL Triglycerides Level 44 MG/DL (30-150) Cholesterol Level < 50 MG/DL (< 200) LDL Cholesterol 8 mg/dL (<100) HDL Cholesterol 8 MG/DL (40-60) L Cholesterol/HDL Ratio 6.3 (3.3-4.4) H Thyroid Stimulating Hormone (TSH) 1.904 uiU/mL (0.358-3.740) Cortisol AM Sample Pending Urine Eosinophils None seen (NONE SEEN) Stool Occult Blood Positive (NEGATIVE) Intake and Output 07/15/18 07/16/18 19:00 07:00 Intake Total 1110 ml 642.958 ml Output Total 740 ml Balance 370 ml 642.958 ml Intake Oral 360 ml 240 ml IV Total 500 ml 402.958 ml Blood Product 250 ml Output Urine Total 740 ml # Voids 2 # Bowel Movements 4 Objective PHYSICAL EXAMINATION: GENERAL: The patient is thin-appearing male, in no apparent distress. HEENT: Eyes, pupils equal and responsive to light and accommodation. Extraocular movements are intact. NECK: Supple without lymphadenopathy. CHEST: Lungs are clear to auscultation bilaterally without wheezes or rales. CARDIOVASCULAR: Tachycardic, regular rhythm. S1 and S2 are normal without murmurs, rubs, or gallops. ABDOMEN: Soft, nontender, nondistended. Positive bowel sounds. No evidence of hepatosplenomegaly. Currently, no rebound or guarding noted. RECTAL: Refused. GENITALIA: Refused. EXTREMITIES: Negative for clubbing, cyanosis, or edema. NEUROLOGIC: Cranial nerves II through XII are grossly intact without focal deficits. Motor strength is 5/5 bilaterally intact. Deep tendon reflexes are 2+ plantar. Assessment/Plan Assessment/Plan ASSESSMENT: This is a 37-year-old male with: 1. Abdominal pain. 2. Nausea with vomiting. 3. Diarrhea. 4. Rectal bleeding. 5. Human immunodeficiency virus. 6. Kaposi's sarcoma. 7. Castleman's disease. 8. Hepatitis B. 9. Clostridium difficile diarrhea 10. Severe anemia-blood loss 11. Thrombocytopenia TREATMENT: 1. Abdominal pain/nausea/vomiting/rectal bleeding. The patient has history of Clostridium difficile, which was resistant to Flagyl. An Infectious Diseases consultation has been obtained with Dr. Mendoza. A Gastroenterology consultation has been obtained with Dr. Michael Grande. We will follow recommendations of GI and Infectious Diseases. 2. Human immunodeficiency virus. Continue HAART as above. 3. Kaposi's sarcoma. The patient is status post chemotherapy. 4. Castleman's disease. Please see the previous history and physical from previous hospitalization. 5. Hepatitis B. 6. Continue oral vancomycin; add flagyl per GI 7. S/P transfusion 1 unit PRBC 07/14/18; Transfuse 2 units PRBC 07/15/18 8. V/Q scan 07/15/18. 9. Transfuse 4 units platelets today 10. Heme/onc consult Adam Padron MD July 16, 2018 17:27
[2018-07-16] MEDS ORDERED: Morphine Sulfate 2mg/ml Inj(IV/IM USE ONLY) IVP PRN (17:45)
[2018-07-16] MEDS ORDERED: Morphine Sulfate 4mg/ml Inj (IV USE ONLY) IVP PRN (17:45)
--- NOTE | 2018-07-16 18:00 | NUR ---
NURSE NOTES: Dr. Padron seen and examined patient at bedside. Per MD keep order for 6 units of plateletpheresis at this time. Redraw CBC after 1 unit of plateletpheresis and contact Dr. Padron regarding continuance of transfusing all 6 units of plateletpheresis. Noted.
--- NOTE | 2018-07-16 19:01 | NUR ---
HAND-OFF: Report given to TRES Packer.
--- NOTE | 2018-07-16 19:02 | NUR ---
NURSE NOTES: Report received from Tino Reich RN. Patient seen in bed in semi hernandes position watching TV. Alert, verbally responsive, able to make needs known.ON oxygen 3L/min via NC. sp02 98%. Iv site is to Right upper arm 22 g is intact. Bed is in lowest position. Call light within easy reach while in bed. will continue to monitor.
--- NOTE | 2018-07-16 19:43 | Diagnostic Imaging Report ---
APPROVED REPORT CPT Code: 48134 Present Symptoms Lower Extremity Edema: Bilateral Comments: Pain BILATERAL: Imaging reveals a patent deep venous system bilaterally. There is no evidence of thrombus within the common femoral, superficial femoral, popliteal or tibial segments. The greater saphenous veins are within normal limits. Doppler indicates normal spontaneous flow within these segments. Note: Multiple lymph node noted in the both groin area.
[2018-07-16 20:00] VITALS: BP 112/46
[2018-07-16] MEDS: Dyna-Hex 2% Top Sol 2oz TOPIC SCH (20:00)
--- NOTE | 2018-07-16 20:02 | NUR ---
NURSE NOTES: at 1949, labor economist attempted to draw bloow (CBC) but was unable to. per labor economist, will bring another person to try to draw his blood.
[2018-07-16 20:42] LABS: HEMOGLOBIN 7.9 G/DL (14.2-18.0); MEAN CORPUSCULAR VOLUME 83 FL (80-99); PLATELET COUNT 18 K/UL (150-450); RED BLOOD COUNT 2.78 M/UL (4.70-6.10); RED CELL DISTRIBUTION WIDTH 17.7 % (11.6-14.8); WHITE BLOOD COUNT 18.5 K/UL (4.8-10.8)
--- NOTE | 2018-07-16 20:42 | NUR ---
NURSE NOTES: Spoke with Dr Padron, per Dr Padron, if platelet is above 20,000 then no more transfusion needed. other [facility], continue with the total of 5 platelets as ordered
--- NOTE | 2018-07-16 20:52 | NUR ---
NURSE NOTES: Went down to blood bank, platelet is not yet ready. blood bank will call us when its ready.
[2018-07-16] MEDS: HYDROcodone/Acetamin 5/325 tab ORAL PRN (20:58)
--- NOTE | 2018-07-16 23:00 | NUR ---
NURSE NOTES: platelet transfusion started VVS: bp138/77, t97.7, hr98,
--- NOTE | 2018-07-16 23:15 | NUR ---
NURSE NOTES: VS : t98.8, hr 101, bp 130/76 no Adverse side effect noted
[2018-07-17] VITALS: BP 112/70
--- NOTE | 2018-07-17 00:10 | NUR ---
NURSE NOTES: platelet transfusion completed. VVS, bp 112/70, t98.0, hr 112. No adverse side effect noted.
[2018-07-17 01:11] LABS: HEMATOCRIT 23.7 % (42.0-52.0); HEMOGLOBIN 7.9 G/DL (14.2-18.0); MEAN CORPUSCULAR VOLUME 84 FL (80-99); PLATELET COUNT 41 K/UL (150-450); RED BLOOD COUNT 2.81 M/UL (4.70-6.10); WHITE BLOOD COUNT 16.1 K/UL (4.8-10.8)
--- NOTE | 2018-07-17 01:28 | NUR ---
NURSE NOTES: Platelet is now 41 K/UL. no further platelet transfusion needed.
[2018-07-17 01:34] LABS: INR 1.7 (0.9-1.1)
[2018-07-17 01:37] LABS: PHOSPHORUS 6.7 MG/DL (2.5-4.9)
[2018-07-17 01:43] LABS: ALANINE AMINOTRANSFERASE 10 U/L (12-78); ALBUMIN 0.7 G/DL (3.4-5.0); ALBUMIN/GLOBULIN RATIO 0.2 (1.0-2.7); ALKALINE PHOSPHATASE 82 U/L (46-116); ANION GAP 13 mmol/L (5-15); ASPARTATE AMINO TRANSFERASE 58 U/L (15-37); BILIRUBIN,TOTAL 1.4 MG/DL (0.2-1.0); BLOOD UREA NITROGEN 65 mg/dL (7-18); CALCIUM 6.6 MG/DL (8.5-10.1); CARBON DIOXIDE 17 MMOL/L (21-32); CHLORIDE 103 MMOL/L (98-107); CREATININE 2.8 MG/DL (0.55-1.30); SODIUM 132 MMOL/L (136-145)
[2018-07-17 01:45] LABS: BILIRUBIN,DIRECT 0.8 MG/DL (0.0-0.3)
[2018-07-17 04:00] VITALS: BP 91/58
[2018-07-17] MEDS: D5NS 1,000 ML IV SCH (06:02)
[2018-07-17] MEDS: HYDROcodone/Acetamin 5/325 tab ORAL PRN ×2 (06:03→22:30)
--- NOTE | 2018-07-17 07:12 | NUR ---
NURSE NOTES: Received report from TRES Packer. Patient is resting in bed, in stable condition. Per night nurse, reported to Dr. Padron regarding new platelet level of 41, per report stop transfusing platelets if platelets is greater 20,000. Noted. No s/sx of SOB, breathing is even and unlabored, pt on 2L NC with SpO2 of 95%. Bed is in lowest position, brakes engaged. Call light is kept within easy reach. Will continue to monitor patient.
--- NOTE | 2018-07-17 07:13 | NUR ---
NURSE NOTES: Report given to rosita Abbasi RN
[2018-07-17 08:00] VITALS: BP 108/70
[2018-07-17] MEDS: Metoprolol 25mg tab ORAL SCH ×2 (08:40→17:17)
[2018-07-17] MEDS: Vancomycin oral 125mg/2.5ml ORAL SCH ×4 (08:40→21:29)
[2018-07-17] MEDS: DOLUTEGRAVIR 50 MG ORAL SCH (08:40)
[2018-07-17] MEDS: TRUVADA ORAL SCH (08:40)
--- NOTE | 2018-07-17 09:04 | NUR ---
[employer] SI:PANCYTOPENIA . REENA VS: BP 91/58, P 118, T 97.0, RR 24, SpO2 100 on 2.0 NC WBC 16.1, RBC 2.81, H&H 7.9/23.7, Plt. Count 41, Na 132, BUN 65, CR 2.8 CXR: Moderate left-sided pleural effusion IS:REMERON 15mg METRONIDAZOLE 100ml IVPB D5/NS x1L IV VANCOMYCIN 125mg SDU STATUS
--- NOTE | 2018-07-17 09:30 | NUR ---
RD ASSESSMENT & RECOMMENDATIONS SEE CARE ACTIVITY FOR COMPLETE ASSESSMENT DAILY ESTIMATED NEEDS: Needs based on CA, HIV/63kg 30-40 kcals/kg 8295-4319 total kcals 1-2 g protein/kg 63-126 g total protein 25-30 mL/kg 4111-9666 total fluid mLs NUTRITION DIAGNOSIS: * Increased kcal/prot intake needs R/T catabolic dx, underweight status as evidenced by dx of Kaposi's sarcoma, h/o HIV, low BMI per guidelines, @70% of [place] Body Weight CURRENT DIET: Soft easy chew PO DIET RECOMMENDATIONS: Diet per MD-> rec SOFT/ LOW FIBER/ LOW RESIDUE diet ADDITIONAL RECOMMENDATIONS: * Calibrated bedscale wt or standing wt for accurate CBW -underweight * Monitor PO intake and tolerance; poor intake on soft diet. * Monitor lytes daily, replete as needed (Low mg) * Ensure Clear w/ all meals * rec accuchecks to monitor hypoglycemia
--- NOTE | 2018-07-17 09:49 | NUR ---
NURSE NOTES: Dr. Aguiar seen and examined patient at bedside. Informed Dr. Aguiar that patient has low urine out and bladder scan of [address] Aguiar acknowledged and ordered gomez catheter insertion for accurate intake and output. Noted. Order entered, noted, and carried out. Will continue to monitor patient.
--- NOTE | 2018-07-17 09:50 | NUR ---
NURSE NOTES: Informed patient that Dr. Aguiar has ordered Gomez catheter insertion for accurate intake and output. Explained to patient procedure of gomez catheter insertion and need for insertion. Patient refused. Explained to patient risks and possible negative outcomes of not having gomez catheter inserted x 3, patient verbalized understanding. Respected patient rights. Contacted Dr. Aguiar and reported of patient's refusal for gomez catheter insertion. Per Dr. Aguiar "inform patient, if they refuse gomez catheter they may need hemodialysis." Noted. Will continue to monitor patient.
--- NOTE | 2018-07-17 09:59 | Infectious Diseases Prog Note ---
Assessment/Plan Assessment/Plan Assessment: Sepsis- 2ry to Cdiff and PNA- r/o bacteremia -07/16 CXR p -07/14 SP cx p -07/12 Bcx NTD CXR: Interval development of consolidation right upper lobe. Decrease in pleural thickening when compared to prior study Low grade fever, SP Leukocytosis, increasing Tachycardia- -V/Q scan: Matched heterogeneous tracer distribution. Matched right lower lobe perfusion defect deemed low probability for pulmonary embolus -Echo: Right ventricular enlargement with basal segments akinesia and preserved apical segment, possible Hayes sign suggestive of pulmonary embolism.Aortic valve calcification with normal cusp excursion. Recurrent Cdiff- ?compliance to previous oral vancomycin (while in the hospital he refused some dosages; unclear if finished course at SNF) -07/12 Cdiff + stool cx: normal fecal phi Acute anemia- suspect GIB given melanotic stools Thrombocytopenia REENA on CKD, worsening Diffuse lymphadenopathy/multiple systemic symptoms- Ddx: CMV disease (ie colitis ), Diffuse MAC, recurrente Castleman, HIV related, lymphoma; refused excisional biopsy in the past -05/18 s/p L axillary lymph node biopsy -path fragments of benign lymph node with pronounced polytypic plasmacytosis; focally + HHV8. 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 -05/16/18 CT chest: Mediastinal, axillary, and supraclavicular lymphadenopathy , enlarged compared to the prior CT of the chest. Largest left axillary node measures 3.4 x 2.4 cm. Largest supraclavicular node on the left measures 3.8 x 2.8 cm. Largest mediastinal nodes include a 2.2 x 1.6 cm pretracheal node and a 2.3 x 1.6 cm subcarinal node. Small layering right pleural effusion with fluid in the minor fissure. Kasie-bronchovascular groundglass haziness and nodularity in the right lower lobe. Scattered paraseptal emphysematous changes, predominantly in the upper lung zones. -05/16/18 CT abd/p: Diffuse edema and haziness throughout the mesenteric root. Not significantly changed compared to the visualized portions of the mesenteric root in the prior CT of the chest dated 10/22/17. Mesenteric, retroperitoneal, and inguinal lymphadenopathy. Largest retroperitoneal node measures 3.1 x 2.5 x 2.0 cm to left of the IVC (series 8 image 56, series 10 image 23). Largest left inguinal left node measures 2.9 x 2.5 cm (series 8 image 90). Mild fluid distention and air-fluid levels throughout the colon, which may suggest mild colitis and/or diarrheal disease. No evidence of bowel obstruction. Cholelithiasis without gallbladder wall thickening or ductal dilatation. Scattered subcentimeter hypodensities throughout the spleen, possibly tiny simple cysts. Subcentimeter simple-appearing left renal cortical cysts. Mild urinary bladder wall thickening, most likely related to underdistention. -CT head: . Opacification of the right maxillary sinus, right frontal sinus , and mucosal thickening throughout the ethmoid air cells and left maxillary sinus, suggestive of sinusitis. Partial opacification of the inferior posterior aspect of the left mastoid air cells, suggesting small left mastoid effusion. 04/2018- Cr Ag , T spot, CMV PCR, CMV IgM neg - 10/22/17- CT show reticular opacity and significant lymphadenopathy 10/23/17 - CT abd/pel Lymphadenopathy, Enlarged Pancrease mild B/L hydronephrosis -Blasto, Histo, CrAg neg 11/21/16 - Quantiferon negative (Out Side lab) Recent Cdiff Colitis -06/12 Cdiff toxin A/B + -04/2018 Cdiff neg -stool cx normal phi - O and P neg x3 HIV/AIDS- questionable compliance to ARV (dx 1999)- on Truvada and Dolutegravir 05/2018HIV VL 260, RPR neg, GC/CL neg -04/2018 Cd4 64 (9.1%); VL 100 ?decreased due to non compliance, however low viremia (will expect higher viremia if non compliance) -10/2017 HIV VL ND, CD4 87 (12.4%) -09/01/17 - CD4 192 and VL - ND (Out Side labs) -no hx of resistance ; previously on Truvada, Reyataz and Norvir -Has been above 200 in the past. Came down with Chemo hx pancreatitis 10/2017 hx of Kaposi's sarcoma/Castleman's disease s/p chemotherapy - S/P Chemo ending 07/17/17 Last PET 08/12/17 - show stable/not worsening lymphadenopathy Hep C+ -VL ND hx of Chronic Hep B, VL <15 09/01/17 RPR, GC/CL : negative hx of DVT CKD Plan: -Flagyl # 3 per GI -Cont PO vancomycin 125mg qid #4/10-14 .add Tygcail d# 1 -if diarrhea not improving, will switch Fidaxomycin - Atovaqune ( PCP PPX) -DC empiric IV Vancomycin # 6 ( TCP ) '07/16 Bactrim ( PCP Px) 07/16 Zosyn # 4 ( was stopped for TCP ) -f/u cx -Monitor CBC/CMP, temperatures -Will need excisional biopsy and bone marrow biopsy- high suspicion for recurrence of Castleman's disease - will reattempt once more stabilized- in the past refused twice -f/u CD4 -Continue ARV: TRuvada +Dolutegravir -asked lab to get HIV genotype results that were done last admission -Continue prophylactic Bactrim and weekly Azithromycin for PCP and MAC respectively -GI eval -Heme onc eval -f/u sp cx -CXR 2v am Subjective Allergies: Coded Allergies: No Known Allergies (Unverified , 10/21/17) Subjective comfortable Objective Vital Signs Last 24 Hour Vital Signs Date Time Temp Pulse Resp B/P (MAP) Pulse Ox O2 Delivery O2 Flow Rate FiO2 07/17/18 08:40 115 108/65 07/17/18 08:00 97.0 115 20 108/70 (83) 100 07/17/18 08:00 116 07/17/18 08:00 Room Air 07/17/18 07:41 100 Nasal Cannula 2.0 28 07/17/18 04:00 97.4 118 24 91/58 (69) 99 07/17/18 04:00 Room Air 07/17/18 03:34 115 07/17/18 00:00 98.0 112 22 112/70 (84) 98 07/17/18 00:00 Room Air 07/16/18 23:30 112 07/16/18 20:00 97.7 110 20 112/46 (68) 97 07/16/18 20:00 Room Air 07/16/18 19:23 116 07/16/18 16:00 97.0 100 24 101/68 (79) 100 07/16/18 16:00 97 07/16/18 16:00 Room Air 07/16/18 12:00 97.2 109 24 95/60 (72) 100 07/16/18 12:00 Room Air 07/16/18 11:51 107 Height (Feet): 6 Height (Inches): 0.00 Weight (Pounds): 142 HEENT: mucous membranes moist Respiratory/Chest: normal breath sounds Cardiovascular: regular rhythm Abdomen: no organomegaly Laboratory Tests Test 07/16/18 13:20 07/16/18 20:30 07/17/18 01:00 07/17/18 04:00 White Blood Count 14.7 K/UL (4.8-10.8) H 18.5 K/UL (4.8-10.8) H 16.1 K/UL (4.8-10.8) H Red Blood Count 3.17 M/UL (4.70-6.10) L 2.78 M/UL (4.70-6.10) L 2.81 M/UL (4.70-6.10) L Hemoglobin 8.8 G/DL (14.2-18.0) L 7.9 G/DL (14.2-18.0) L 7.9 G/DL (14.2-18.0) L Hematocrit 27.2 % (42.0-52.0) L 23.0 % (42.0-52.0) L 23.7 % (42.0-52.0) L Mean Corpuscular Volume 86 FL (80-99) 83 FL (80-99) 84 FL (80-99) Mean Corpuscular Hemoglobin 27.8 PG (27.0-31.0) 28.2 PG (27.0-31.0) 28.2 PG (27.0-31.0) Mean Corpuscular Hemoglobin Concent 32.3 G/DL (32.0-36.0) 34.2 G/DL (32.0-36.0) 33.4 G/DL (32.0-36.0) Red Cell Distribution Width 17.9 % (11.6-14.8) H 17.7 % (11.6-14.8) H 18.0 % (11.6-14.8) H Platelet Count 8 K/UL (150-450) *L 18 K/UL (150-450) #L 41 K/UL (150-450) #L Mean Platelet Volume 10.5 FL (6.5-10.1) H 6.3 FL (6.5-10.1) L 8.2 FL (6.5-10.1) Neutrophils (%) (Auto) % (45.0-75.0) % (45.0-75.0) % (45.0-75.0) Lymphocytes (%) (Auto) % (20.0-45.0) % (20.0-45.0) % (20.0-45.0) Monocytes (%) (Auto) % (1.0-10.0) % (1.0-10.0) % (1.0-10.0) Eosinophils (%) (Auto) % (0.0-3.0) % (0.0-3.0) % (0.0-3.0) Basophils (%) (Auto) % (0.0-2.0) % (0.0-2.0) % (0.0-2.0) Differential Total Cells Counted 100 100 100 Neutrophils % (Manual) 74 % (45-75) 86 % (45-75) H 86 % (45-75) H Lymphocytes % (Manual) 5 % (20-45) L 6 % (20-45) L 8 % (20-45) L Monocytes % (Manual) 1 % (1-10) 3 % (1-10) 2 % (1-10) Eosinophils % (Manual) 3 % (0-3) 1 % (0-3) 1 % (0-3) Basophils % (Manual) 0 % (0-2) 0 % (0-2) 0 % (0-2) Band Neutrophils 17 % (0-8) H 3 % (0-8) 3 % (0-8) Nucleated Red Blood Cells 1 /100 WBC 1 /100 WBC 4 /100 WBC Platelet Estimate Decreased L Decreased L Decreased L Platelet Morphology Normal Normal Normal Polychromasia Occasional 1+ 1+ Anisocytosis 1+ 1+ 1+ Promyelocytes % 1 % (0-0) H [place] Cells 1+ Prothrombin Time 17.0 SEC (9.30-11.50) H Prothromb Time International Ratio 1.7 (0.9-1.1) H Activated Partial Thromboplast Time 63 SEC (23-33) H Sodium Level 132 MMOL/L (136-145) L Potassium Level 4.0 MMOL/L (3.5-5.1) Chloride Level 103 MMOL/L (98-107) Carbon Dioxide Level 17 MMOL/L (21-32) L Anion Gap 13 mmol/L (5-15) Blood Urea Nitrogen 65 mg/dL (7-18) H Creatinine 2.8 MG/DL (0.55-1.30) H Estimat Glomerular Filtration Rate 30.9 mL/min (>60) Glucose Level 57 MG/DL (74-106) L Calcium Level 6.6 MG/DL (8.5-10.1) L Phosphorus Level 6.7 MG/DL (2.5-4.9) H Magnesium Level 1.9 MG/DL (1.8-2.4) Total Bilirubin 1.4 MG/DL (0.2-1.0) H Direct Bilirubin 0.8 MG/DL (0.0-0.3) H Aspartate Amino Transf (AST/SGOT) 58 U/L (15-37) H Alanine Aminotransferase (ALT/SGPT) 10 U/L (12-78) L Alkaline Phosphatase 82 U/L (46-116) C-Reactive Protein, Quantitative 25.5 mg/dL (0.00-0.90) H Total Protein 4.8 G/DL (6.4-8.2) L Albumin 0.7 G/DL (3.4-5.0) L Globulin 4.1 g/dL Albumin/Globulin Ratio 0.2 (1.0-2.7) L Random Vancomycin Level 23.2 ug/mL Urine Random Sodium < 20 mmol/L (20-110) L Test 07/17/18 04:15 Urine Eosinophils None seen (NONE SEEN) Current Medications Medications (Trade) Dose Ordered Sig/Yessica Route PRN Reason Start Time Stop Time Status Last Admin Dose Admin Acetaminophen (Tylenol) 650 mg Q4H PRN ORAL fever 07/13/18 13:45 08/11/18 21:44 07/16/18 17:19 Acetaminophen/ Hydrocodone Bitart (Hay 5/325) 1 tab Q6H PRN ORAL Moderate Pain (Pain Scale 4-6) 07/16/18 20:45 07/23/18 20:44 07/17/18 06:03 Azithromycin (Zithromax) 1,200 mg ONCE A WEEK ORAL 07/16/18 09:00 07/23/18 08:59 07/16/18 10:02 Chlorhexidine Gluconate (Felipa-Hex 2%) 1 applic DAILY@2000 TOPIC 07/16/18 20:00 08/15/18 19:59 Dextrose (Dextrose 50%) 25 ml Q30M PRN IV Hypoglycemia 07/13/18 10:15 08/11/18 21:44 Dextrose (Dextrose 50%) 50 ml Q30M PRN IV Hypoglycemia 07/13/18 10:15 08/11/18 21:44 Dextrose/Sodium Chloride 1,000 ml @ 50 mls/hr Q20H IV 07/16/18 11:00 08/15/18 10:59 07/17/18 06:02 Diphenhydramine HCl (Benadryl) 25 mg Q6H PRN ORAL Itching/Pruritis 07/13/18 15:45 08/11/18 21:44 07/15/18 15:08 Heparin Sodium/ Sodium Chloride (Heparin 1000 units/500ml Premix) 1,000 unit ONCE PRN IV PICC 07/16/18 14:37 07/17/18 23:59 Lidocaine HCl (Xylocaine 1% 30ml) 30 ml ONCE PRN INJ picc 07/16/18 14:37 07/17/18 23:59 Metoprolol Tartrate (Lopressor) 25 mg BID ORAL 07/13/18 18:00 08/12/18 07:59 07/16/18 08:54 Metronidazole 100 ml @ 100 mls/hr Q8H IVPB 07/16/18 04:00 07/23/18 03:59 07/17/18 03:31 Mirtazapine (Remeron) 15 mg BEDTIME ORAL 07/13/18 21:00 08/12/18 20:59 07/16/18 20:09 Morphine Sulfate (Morphine Sulfate) 2 mg Q4H PRN IVP Moderate Pain (Pain Scale 4-6) 07/16/18 17:45 07/19/18 21:44 Morphine Sulfate (Morphine Sulfate) 4 mg Q4H PRN IVP Severe Pain (Pain Scale 7-10) 07/16/18 17:45 07/23/18 17:44 Nitroglycerin (Ntg) 0.4 mg Q5M X 3 DOSES PRN SL Prn Chest Pain 07/13/18 10:00 08/11/18 21:44 Ondansetron HCl (Zofran) 4 mg Q6H PRN IVP Nausea & Vomiting 07/13/18 15:45 08/11/18 21:44 07/17/18 06:03 Pantoprazole (Protonix) 40 mg EVERY 12 HOURS ORAL 07/16/18 21:00 08/15/18 20:59 07/17/18 08:40 Patient Own Medication (Patient's Own Med) 1 ea DAILY ORAL 07/14/18 09:00 08/13/18 08:59 07/17/18 08:40 Patient Own Medication (Patient's Own Med) 1 ea DAILY ORAL 07/14/18 09:00 08/13/18 08:59 07/17/18 08:40 Temazepam (Restoril) 15 mg HSPRN PRN ORAL Insomnia 07/13/18 21:45 07/19/18 21:44 Vancomycin HCl (Firvanq) 125 mg FOUR TIMES A DAY ORAL 07/14/18 13:00 07/21/18 12:59 07/17/18 08:40 Vancomycin HCl (Vanco rx to dose) 1 ea DAILY PRN MISC Per rx protocol 07/14/18 09:00 08/12/18 07:59 Jez Mendoza MD July 17, 2018 09:59
--- NOTE | 2018-07-17 10:10 | NUR ---
NURSE NOTES: Explained to patient, again, regarding need for gomez catheter insertion and relayed Dr. Aguiar's message, "if they refuse gomez catheter insertion, they may need hemodialysis." Patient verbalized understanding of what hemodialysis is. Patient continued to refuse gomez catheter insertion. Respected patient rights. Made Dr. Aguiar aware. Made charge nurse aware. Will continue to monitor patient.
--- NOTE | 2018-07-17 10:38 | NUR ---
NURSE NOTES: Called and informed Dr. Padron that patient's glucose level from morning labs was 57 mg/dL. A bedside fingerstick level was obtained and results wer 57 mg/dL. Dextrose 50% IVP PRN for hypoglycemia was administered. New accuchek level 15 minutes post PRN Dextrose 50% given is 110 mg/dL. Informed Dr. Padron of situation. acknowledged and ordered CBC and BMP lab draws now. Orders entered, noted, and carried out. Will continue to monitor patient.
--- NOTE | 2018-07-17 10:39 | General Progress Note ---
Assessment/Plan Assessment/Plan: (1) Dehydration (2) Electrolyte imbalance (3) Castleman disease (4) HIV disease (5) Anemia (6) C. difficile colitis (7) Nausea, vomiting, and diarrhea (8) Protein-calorie malnutrition, severe Plan refused GI procedures cdiff positive IV/PO hydration + electrolyte correction zofran prn monitor H&H, prn transfusions, last unit yesterday on po vanco will and iv flagyl recommend dc other abx if ok with ID change protonix to daily add marinol follow labs poor prognosis Subjective ROS Limited/Unobtainable: Yes Allergies: Coded Allergies: No Known Allergies (Unverified , 10/21/17) Subjective diarrhea abd pain poor appetite Objective Last 24 Hour Vital Signs Date Time Temp Pulse Resp B/P (MAP) Pulse Ox O2 Delivery O2 Flow Rate FiO2 07/17/18 08:40 115 108/65 07/17/18 08:00 97.0 115 20 108/70 (83) 100 07/17/18 08:00 116 07/17/18 08:00 Room Air 07/17/18 07:41 100 Nasal Cannula 2.0 28 07/17/18 04:00 97.4 118 24 91/58 (69) 99 07/17/18 04:00 Room Air 07/17/18 03:34 115 07/17/18 00:00 98.0 112 22 112/70 (84) 98 07/17/18 00:00 Room Air 07/16/18 23:30 112 07/16/18 20:00 97.7 110 20 112/46 (68) 97 07/16/18 20:00 Room Air 07/16/18 19:23 116 07/16/18 16:00 97.0 100 24 101/68 (79) 100 07/16/18 16:00 97 07/16/18 16:00 Room Air 07/16/18 12:00 97.2 109 24 95/60 (72) 100 07/16/18 12:00 Room Air 07/16/18 11:51 107 Intake and Output 07/16/18 07/17/18 19:00 07:00 Intake Total 280 ml 1318 ml Balance 280 ml 1318 ml Intake Oral 240 ml IV Total 280 ml 750 ml Blood Product 328 ml # Voids 2 3 # Bowel Movements 3 Laboratory Tests 07/16/18 13:20: White Blood Count 14.7H, Red Blood Count 3.17L, Hemoglobin 8.8L, Hematocrit 27.2L, Mean Corpuscular Volume 86, Mean Corpuscular Hemoglobin 27.8, Mean Corpuscular Hemoglobin Concent 32.3, Red Cell Distribution Width 17.9H, Platelet Count 8*L, Mean Platelet Volume 10.5H, Neutrophils (%) (Auto) , Lymphocytes (%) (Auto) , Monocytes (%) (Auto) , Eosinophils (%) (Auto) , Basophils (%) (Auto) , Differential Total Cells Counted 100, Neutrophils % ( Manual) 74, Lymphocytes % (Manual) 5L, Monocytes % (Manual) 1, Eosinophils % ( Manual) 3, Basophils % (Manual) 0, Band Neutrophils 17H, Nucleated Red Blood Cells 1, Platelet Estimate DecreasedL, Platelet Morphology Normal, Polychromasia Occasional, Anisocytosis 1+ 07/16/18 20:30: White Blood Count 18.5H, Red Blood Count 2.78L, Hemoglobin 7.9L, Hematocrit 23.0L, Mean Corpuscular Volume 83, Mean Corpuscular Hemoglobin 28.2, Mean Corpuscular Hemoglobin Concent 34.2, Red Cell Distribution Width 17.7H, Platelet Count 18#L, Mean Platelet Volume 6.3L, Neutrophils (%) (Auto) , Lymphocytes (%) (Auto) , Monocytes (%) (Auto) , Eosinophils (%) (Auto) , Basophils (%) (Auto) , Differential Total Cells Counted 100, Neutrophils % ( Manual) 86H, Lymphocytes % (Manual) 6L, Monocytes % (Manual) 3, Eosinophils % ( Manual) 1, Basophils % (Manual) 0, Band Neutrophils 3, Nucleated Red Blood Cells 1, Platelet Estimate DecreasedL, Platelet Morphology Normal, Polychromasia 1+, Anisocytosis 1+, Promyelocytes % 1H 07/17/18 01:00: White Blood Count 16.1H, Red Blood Count 2.81L, Hemoglobin 7.9L, Hematocrit 23.7L, Mean Corpuscular Volume 84, Mean Corpuscular Hemoglobin 28.2, Mean Corpuscular Hemoglobin Concent 33.4, Red Cell Distribution Width 18.0H, Platelet Count 41#L, Mean Platelet Volume 8.2, Neutrophils (%) (Auto) , Lymphocytes (%) (Auto) , Monocytes (%) (Auto) , Eosinophils (%) (Auto) , Basophils (%) (Auto) , Differential Total Cells Counted 100, Neutrophils % ( Manual) 86H, Lymphocytes % (Manual) 8L, Monocytes % (Manual) 2, Eosinophils % ( Manual) 1, Basophils % (Manual) 0, Band Neutrophils 3, Nucleated Red Blood Cells 4, Platelet Estimate DecreasedL, Platelet Morphology Normal, Polychromasia 1+, Anisocytosis 1+, [place] Cells 1+, Prothrombin Time 17.0H, Prothromb Time International Ratio 1.7H, Activated Partial Thromboplast Time 63H , Sodium Level 132L, Potassium Level 4.0, Chloride Level 103, Carbon Dioxide Level 17L, Anion Gap 13, Blood Urea Nitrogen 65H, Creatinine 2.8H, Estimat Glomerular Filtration Rate 30.9, Glucose Level 57L, Calcium Level 6.6L, Phosphorus Level 6.7H, Magnesium Level 1.9, Total Bilirubin 1.4H, Direct Bilirubin 0.8H, Aspartate Amino Transf (AST/SGOT) 58H, Alanine Aminotransferase (ALT/SGPT) 10L, Alkaline Phosphatase 82, C-Reactive Protein, Quantitative 25.5H , Total Protein 4.8L, Albumin 0.7L, Globulin 4.1, Albumin/Globulin Ratio 0.2L, Random Vancomycin Level 23.2 07/17/18 04:00: Urine Random Sodium < 20L 07/17/18 04:15: Urine Eosinophils None seen Height (Feet): 6 Height (Inches): 0.00 Weight (Pounds): 142 General Appearance: alert EENT: normal ENT inspection Neck: supple Cardiovascular: normal rate Respiratory/Chest: decreased breath sounds Abdomen: soft, hypoactive bowel sounds, tender Extremities: non-tender Michael Grande MD July 17, 2018 10:39
--- NOTE | 2018-07-17 10:43 | Hematology/Onc Progress Note ---
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 Hx of HIV, CD4 count very low. He has a very poor memory, says was treated at [facility] S/P Chemo ending 07/17/17. Last PET 08/12 - show stable/not worsening lymphadenopathy. Has very extensive disease on ct scan lympahdenopathy noted throughout, final results of axilla lymphadenopathy biopsy on 05/25/18, and FINAL results from prior admission are nondiagnostic --> I talked with him regarding getting potentially another biopsy (bulky lymph node v bone marrow biopsy) he has thus far refused -- HE HAS BEEN NONCOMPLIANT --> IL-6 was 54 in the past indicating active disease, needs close followup with heme outpatient, would again recommend first a biopsy and further recommendations after procedure --> inflammatory makers are elevated which can be c/w flare but are fairly non- specific --> imaging is ordered as well --> outpatient f/u as well for futher therapy prn --> treat underlying HIV as per ID service --> plt trend 39-->34-->25-->26k-->23k-->15k-->9k-->41 --> Plt transfusion hx: 1 unit on 07/16 # Anemia of chronic disease -- workup has been reviewed --> esr elevated, as is crp --> transfuse if hgb <7 => hgb trend 7.5-->7.4-->7.8-->6.7-->8-->7.9 --> transfuse 2u prbc 07/15 # Anemia of folic acid deficiency --> start patient on folic acid 1mg po daily, continue given low levels # DVT hx that was diagnosed at outpatient hospital --> inpatient venous duplex is negative for thromboembolism, therefore DOES not require anticoagulants --> have discussed this with patients and patient's mother # Sepsis - PNA, [place], other infection, TB? --> on HIV meds, abx as needed --> continue as per ID # HIV - On Tivicay and Truvada and Bactrim, CD4 count 64 --> VL pending, CD4 count ordered <100 --> IL-6 is 51 # REENA cr 1.2-->1.1 The timing of this note does not necessarily reflect the time of the patient was seen. Greatly appreciate consultation. Subjective Hematologic/Lymphatic: Reports: anemia Allergies: Coded Allergies: No Known Allergies (Unverified , 10/21/17) All Systems: reviewed and negative except above Subjective 07/16: no events noted, no f/c, plt count 6k, again stressed importance of a bone marrow biopsy, he refused 07/17: Plt transfusion completed.Current Plt count of 41. Objective Objective Current Medications Medications (Trade) Dose Ordered Sig/Yessica Route PRN Reason Start Time Stop Time Status Last Admin Dose Admin Acetaminophen (Tylenol) 650 mg Q4H PRN ORAL fever 07/13/18 13:45 08/11/18 21:44 07/16/18 17:19 Acetaminophen/ Hydrocodone Bitart (Questa 5/325) 1 tab Q6H PRN ORAL Moderate Pain (Pain Scale 4-6) 07/16/18 20:45 07/23/18 20:44 07/17/18 06:03 Atovaquone (Mepron Susp) 1,500 mg DAILY ORAL 07/17/18 12:00 08/16/18 11:59 Azithromycin (Zithromax) 1,200 mg ONCE A WEEK ORAL 07/16/18 09:00 07/23/18 08:59 07/16/18 10:02 Chlorhexidine Gluconate (Felipa-Hex 2%) 1 applic DAILY@2000 TOPIC 07/16/18 20:00 08/15/18 19:59 Dextrose (Dextrose 50%) 25 ml Q30M PRN IV Hypoglycemia 07/13/18 10:15 08/11/18 21:44 Dextrose (Dextrose 50%) 50 ml Q30M PRN IV Hypoglycemia 07/13/18 10:15 08/11/18 21:44 Dextrose/Sodium Chloride 1,000 ml @ 50 mls/hr Q20H IV 07/16/18 11:00 08/15/18 10:59 07/17/18 06:02 Diphenhydramine HCl (Benadryl) 25 mg Q6H PRN ORAL Itching/Pruritis 07/13/18 15:45 08/11/18 21:44 07/15/18 15:08 Heparin Sodium/ Sodium Chloride (Heparin 1000 units/500ml Premix) 1,000 unit ONCE PRN IV PICC 07/16/18 14:37 07/17/18 23:59 Lidocaine HCl (Xylocaine 1% 30ml) 30 ml ONCE PRN INJ picc 07/16/18 14:37 07/17/18 23:59 Metoprolol Tartrate (Lopressor) 25 mg BID ORAL 07/13/18 18:00 08/12/18 07:59 07/16/18 08:54 Metronidazole 100 ml @ 100 mls/hr Q8H IVPB 07/16/18 04:00 07/23/18 03:59 07/17/18 03:31 Mirtazapine (Remeron) 15 mg BEDTIME ORAL 07/13/18 21:00 08/12/18 20:59 07/16/18 20:09 Morphine Sulfate (Morphine Sulfate) 2 mg Q4H PRN IVP Moderate Pain (Pain Scale 4-6) 07/16/18 17:45 07/19/18 21:44 Morphine Sulfate (Morphine Sulfate) 4 mg Q4H PRN IVP Severe Pain (Pain Scale 7-10) 07/16/18 17:45 07/23/18 17:44 Nitroglycerin (Ntg) 0.4 mg Q5M X 3 DOSES PRN SL Prn Chest Pain 07/13/18 10:00 08/11/18 21:44 Ondansetron HCl (Zofran) 4 mg Q6H PRN IVP Nausea & Vomiting 07/13/18 15:45 08/11/18 21:44 07/17/18 06:03 Pantoprazole (Protonix) 40 mg EVERY 12 HOURS ORAL 07/16/18 21:00 08/15/18 20:59 07/17/18 08:40 Patient Own Medication (Patient's Own Med) 1 ea DAILY ORAL 07/14/18 09:00 08/13/18 08:59 07/17/18 08:40 Patient Own Medication (Patient's Own Med) 1 ea DAILY ORAL 07/14/18 09:00 08/13/18 08:59 07/17/18 08:40 Temazepam (Restoril) 15 mg HSPRN PRN ORAL Insomnia 07/13/18 21:45 07/19/18 21:44 Tigecycline 100 mg/Sodium Chloride 110 ml @ 110 mls/hr ONCE ONCE IVPB 07/17/18 11:00 07/17/18 11:59 Tigecycline 50 mg/ Sodium Chloride 110 ml @ 220 mls/hr EVERY 12 HOURS IVPB 07/17/18 21:00 07/24/18 20:59 Vancomycin HCl (Firvanq) 125 mg FOUR TIMES A DAY ORAL 07/14/18 13:00 07/21/18 12:59 07/17/18 08:40 Last 24 Hour Vital Signs Date Time Temp Pulse Resp B/P (MAP) Pulse Ox O2 Delivery O2 Flow Rate FiO2 07/17/18 08:40 115 108/65 07/17/18 08:00 97.0 115 20 108/70 (83) 100 07/17/18 08:00 116 07/17/18 08:00 Room Air 07/17/18 07:41 100 Nasal Cannula 2.0 28 07/17/18 04:00 97.4 118 24 91/58 (69) 99 07/17/18 04:00 Room Air 07/17/18 03:34 115 07/17/18 00:00 98.0 112 22 112/70 (84) 98 07/17/18 00:00 Room Air 07/16/18 23:30 112 07/16/18 20:00 97.7 110 20 112/46 (68) 97 07/16/18 20:00 Room Air 07/16/18 19:23 116 07/16/18 16:00 97.0 100 24 101/68 (79) 100 07/16/18 16:00 97 07/16/18 16:00 Room Air 07/16/18 12:00 97.2 109 24 95/60 (72) 100 07/16/18 12:00 Room Air 07/16/18 11:51 107 07/16/18 08:54 125 110/67 07/16/18 08:00 98.2 129 24 100/65 (77) 91 07/16/18 08:00 Room Air 07/16/18 07:31 129 07/16/18 06:42 98.1 07/16/18 04:00 Room Air 07/16/18 04:00 98.1 140 22 98/65 (76) 99 07/16/18 04:00 140 07/16/18 00:00 Room Air 07/16/18 00:00 138 07/16/18 00:00 98.4 137 20 104/65 (78) 94 07/15/18 20:00 132 07/15/18 20:00 Room Air 07/15/18 20:00 98.9 130 20 106/66 (79) 99 07/15/18 17:39 128 92/63 07/15/18 16:00 97.6 131 21 99/63 (75) 95 131 07/15/18 16:00 128 07/15/18 16:00 Room Air 07/15/18 12:01 Room Air 07/15/18 12:00 111 07/15/18 12:00 97.0 123 20 137/60 (85) 95 123 Intake and Output 07/16/18 07/17/18 19:00 07:00 Intake Total 280 ml 1318 ml Balance 280 ml 1318 ml Intake Oral 240 ml IV Total 280 ml 750 ml Blood Product 328 ml # Voids 2 3 # Bowel Movements 3 Labs Test 07/15/18 08:35 07/15/18 09:00 07/16/18 08:30 07/16/18 09:00 White Blood Count 11.2 x10E3/uL (3.4-10.8) 11.7 K/UL (4.8-10.8) Red Blood Count 2.44 M/UL (4.70-6.10) 2.81 M/UL (4.70-6.10) Hemoglobin 6.7 G/DL (14.2-18.0) 8.0 G/DL (14.2-18.0) Hematocrit 20.0 % (42.0-52.0) 23.5 % (42.0-52.0) Mean Corpuscular Volume 82 FL (80-99) 84 FL (80-99) Mean Corpuscular Hemoglobin 27.5 PG (27.0-31.0) 28.3 PG (27.0-31.0) Mean Corpuscular Hemoglobin Concent 33.5 G/DL (32.0-36.0) 33.9 G/DL (32.0-36.0) Red Cell Distribution Width 19.6 % (11.6-14.8) 17.7 % (11.6-14.8) Platelet Count 15 K/UL (150-450) 6 K/UL (150-450) Mean Platelet Volume 7.1 FL (6.5-10.1) 9.4 FL (6.5-10.1) Neutrophils (%) (Auto) % (45.0-75.0) % (45.0-75.0) Lymphocytes (%) (Auto) % (20.0-45.0) % (20.0-45.0) Monocytes (%) (Auto) % (1.0-10.0) % (1.0-10.0) Eosinophils (%) (Auto) % (0.0-3.0) % (0.0-3.0) Basophils (%) (Auto) % (0.0-2.0) % (0.0-2.0) Differential Total Cells Counted 100 100 Neutrophils % (Manual) 81 % (45-75) 75 % (45-75) Lymphocytes % (Manual) 8 % (20-45) 8 % (20-45) Monocytes % (Manual) 6 % (1-10) 2 % (1-10) Eosinophils % (Manual) 3 % (0-3) 1 % (0-3) Basophils % (Manual) 1 % (0-2) 0 % (0-2) Band Neutrophils 1 % (0-8) 14 % (0-8) Lymphocytes 14 % (Not Estab.) Nucleated Red Blood Cells (.) 1 /100 WBC Platelet Estimate Decreased Decreased Platelet Morphology Normal Normal Hypochromasia 3+ Anisocytosis 2+ 2+ Spherocytes 2+ Sodium Level 130 MMOL/L (136-145) 131 MMOL/L (136-145) Potassium Level 3.4 MMOL/L (3.5-5.1) 3.9 MMOL/L (3.5-5.1) Chloride Level 104 MMOL/L (98-107) 104 MMOL/L (98-107) Carbon Dioxide Level 18 MMOL/L (21-32) 18 MMOL/L (21-32) Anion Gap 8 mmol/L (5-15) 9 mmol/L (5-15) Blood Urea Nitrogen 37 mg/dL (7-18) 56 mg/dL (7-18) Creatinine 2.0 MG/DL (0.55-1.30) 2.3 MG/DL (0.55-1.30) Estimat Glomerular Filtration Rate 45.6 mL/min (>60) 38.8 mL/min (>60) Glucose Level 89 MG/DL (74-106) 72 MG/DL (74-106) Calcium Level 6.4 MG/DL (8.5-10.1) 6.5 MG/DL (8.5-10.1) Phosphorus Level 4.2 MG/DL (2.5-4.9) 5.3 MG/DL (2.5-4.9) Magnesium Level 1.8 MG/DL (1.8-2.4) 1.8 MG/DL (1.8-2.4) Total Bilirubin 0.5 MG/DL (0.2-1.0) 0.8 MG/DL (0.2-1.0) Aspartate Amino Transf (AST/SGOT) 30 U/L (15-37) 65 U/L (15-37) Alanine Aminotransferase (ALT/SGPT) < 6 U/L (12-78) 12 U/L (12-78) Alkaline Phosphatase 62 U/L (46-116) 69 U/L (46-116) Total Protein 4.2 G/DL (6.4-8.2) 4.3 G/DL (6.4-8.2) Albumin < 0.6 G/DL (3.4-5.0) < 0.6 G/DL (3.4-5.0) Globulin g/dL g/dL Absolute Lymphocytes (Cell Immunity 1.6 x10E3/uL (0.7-3.1) Percent CD3 Cells 64.8 % (57.5-86.2) Absolute CD3 Count 1037 /uL (622-2402) Percent CD4 Cells 5.4 % (30.8-58.5) Absolute CD4 Count 86 /uL (359-1519) T-Lymphocyte CD4/CD8 Ratio 0.09 (0.92-3.72) Percent CD8 Cells 58.3 % (12.0-35.5) Absolute CD8 Count 933 /uL (109-897) Urine Random Sodium < 20 mmol/L (20-110) Polychromasia 1+ Hemoglobin A1c 4.8 % (4.3-6.0) Uric Acid 6.0 MG/DL (2.6-7.2) Gamma Glutamyl Transpeptidase 18 U/L (5-85) Total Creatine Kinase 25 U/L (26-308) C-Reactive Protein, Quantitative 28.3 mg/dL (0.00-0.90) Pro-B-Type Natriuretic Peptide 3949 pg/mL (0-125) Triglycerides Level 44 MG/DL (30-150) Cholesterol Level < 50 MG/DL (< 200) LDL Cholesterol 8 mg/dL (<100) HDL Cholesterol 8 MG/DL (40-60) Cholesterol/HDL Ratio 6.3 (3.3-4.4) Thyroid Stimulating Hormone (TSH) 1.904 uiU/mL (0.358-3.740) Urine Eosinophils None seen (NONE SEEN) Test 07/16/18 09:20 07/16/18 13:20 07/16/18 20:30 07/17/18 01:00 Stool Occult Blood Positive (NEGATIVE) White Blood Count 14.7 K/UL (4.8-10.8) 18.5 K/UL (4.8-10.8) 16.1 K/UL (4.8-10.8) Red Blood Count 3.17 M/UL (4.70-6.10) 2.78 M/UL (4.70-6.10) 2.81 M/UL (4.70-6.10) Hemoglobin 8.8 G/DL (14.2-18.0) 7.9 G/DL (14.2-18.0) 7.9 G/DL (14.2-18.0) Hematocrit 27.2 % (42.0-52.0) 23.0 % (42.0-52.0) 23.7 % (42.0-52.0) Mean Corpuscular Volume 86 FL (80-99) 83 FL (80-99) 84 FL (80-99) Mean Corpuscular Hemoglobin 27.8 PG (27.0-31.0) 28.2 PG (27.0-31.0) 28.2 PG (27.0-31.0) Mean Corpuscular Hemoglobin Concent 32.3 G/DL (32.0-36.0) 34.2 G/DL (32.0-36.0) 33.4 G/DL (32.0-36.0) Red Cell Distribution Width 17.9 % (11.6-14.8) 17.7 % (11.6-14.8) 18.0 % (11.6-14.8) Platelet Count 8 K/UL (150-450) 18 K/UL (150-450) 41 K/UL (150-450) Mean Platelet Volume 10.5 FL (6.5-10.1) 6.3 FL (6.5-10.1) 8.2 FL (6.5-10.1) Neutrophils (%) (Auto) % (45.0-75.0) % (45.0-75.0) % (45.0-75.0) Lymphocytes (%) (Auto) % (20.0-45.0) % (20.0-45.0) % (20.0-45.0) Monocytes (%) (Auto) % (1.0-10.0) % (1.0-10.0) % (1.0-10.0) Eosinophils (%) (Auto) % (0.0-3.0) % (0.0-3.0) % (0.0-3.0) Basophils (%) (Auto) % (0.0-2.0) % (0.0-2.0) % (0.0-2.0) Differential Total Cells Counted 100 100 100 Neutrophils % (Manual) 74 % (45-75) 86 % (45-75) 86 % (45-75) Lymphocytes % (Manual) 5 % (20-45) 6 % (20-45) 8 % (20-45) Monocytes % (Manual) 1 % (1-10) 3 % (1-10) 2 % (1-10) Eosinophils % (Manual) 3 % (0-3) 1 % (0-3) 1 % (0-3) Basophils % (Manual) 0 % (0-2) 0 % (0-2) 0 % (0-2) Band Neutrophils 17 % (0-8) 3 % (0-8) 3 % (0-8) Nucleated Red Blood Cells 1 /100 WBC 1 /100 WBC 4 /100 WBC Platelet Estimate Decreased Decreased Decreased Platelet Morphology Normal Normal Normal Polychromasia Occasional 1+ 1+ Anisocytosis 1+ 1+ 1+ Promyelocytes % 1 % (0-0) Cristin Cells 1+ Prothrombin Time 17.0 SEC (9.30-11.50) Prothromb Time International Ratio 1.7 (0.9-1.1) Activated Partial Thromboplast Time 63 SEC (23-33) Sodium Level 132 MMOL/L (136-145) Potassium Level 4.0 MMOL/L (3.5-5.1) Chloride Level 103 MMOL/L (98-107) Carbon Dioxide Level 17 MMOL/L (21-32) Anion Gap 13 mmol/L (5-15) Blood Urea Nitrogen 65 mg/dL (7-18) Creatinine 2.8 MG/DL (0.55-1.30) Estimat Glomerular Filtration Rate 30.9 mL/min (>60) Glucose Level 57 MG/DL (74-106) Calcium Level 6.6 MG/DL (8.5-10.1) Phosphorus Level 6.7 MG/DL (2.5-4.9) Magnesium Level 1.9 MG/DL (1.8-2.4) Total Bilirubin 1.4 MG/DL (0.2-1.0) Direct Bilirubin 0.8 MG/DL (0.0-0.3) Aspartate Amino Transf (AST/SGOT) 58 U/L (15-37) Alanine Aminotransferase (ALT/SGPT) 10 U/L (12-78) Alkaline Phosphatase 82 U/L (46-116) C-Reactive Protein, Quantitative 25.5 mg/dL (0.00-0.90) Total Protein 4.8 G/DL (6.4-8.2) Albumin 0.7 G/DL (3.4-5.0) Globulin 4.1 g/dL Albumin/Globulin Ratio 0.2 (1.0-2.7) Random Vancomycin Level 23.2 ug/mL Test 07/17/18 04:00 07/17/18 04:15 Urine Random Sodium < 20 mmol/L (20-110) Urine Eosinophils None seen (NONE SEEN) Height (Feet): 6 Height (Inches): 0.00 Weight (Pounds): 142 Objective Physical Exam: Vitals: reviewed General Appearance: NAD HEENT: normocephalic, atraumatic Neck: non-tender, normal alignment Respiratory/Chest: normal breath sounds bilaterally Cardiovascular/Chest: normal peripheral pulses, normal rate Abdomen: normal bowel sounds, soft, nontender Extremities: normal range of motion Jean Bingham MD July 17, 2018 10:42
[2018-07-17] MEDS ORDERED: Tigecycline 100 MG in NS 110 ML IVPB ONE (11:00)
--- NOTE | 2018-07-17 11:46 | Cardiac Electrophysiology PN ---
Assessment/Plan Assessment/Plan 1. Sinus tachycardia with heart rate up to 170s. This is secondary to underlying sepsis. Ruled out for SC. His last echocardiogram showed ejection fraction of 75% but now 45-50%. No evidence of atrial fibrillation or supraventricular tachycardia. Continue Lopressor 25 bid VQ low probability for PE. 2. History of hypertension. On Lopressor 25 bid 3. HIV. On Truvada. 4. History of Kaposi's sarcoma. 5. History of pancreatitis, hepatitis B, and hepatitis C. 6. Severe anemia, status post transfusion. 7. Seevere thrombocytopenia Plt 6 k now 40K 8. Moderate Pulmonary HTN. VQ scan low probability for PE. DW RN Subjective Subjective Sinus tachycardia is better.Gettig PICC line Objective Last 24 Hour Vital Signs Date Time Temp Pulse Resp B/P (MAP) Pulse Ox O2 Delivery O2 Flow Rate FiO2 07/17/18 08:40 115 108/65 07/17/18 08:00 97.0 115 20 108/70 (83) 100 07/17/18 08:00 116 07/17/18 08:00 Room Air 07/17/18 07:41 100 Nasal Cannula 2.0 28 07/17/18 04:00 97.4 118 24 91/58 (69) 99 07/17/18 04:00 Room Air 07/17/18 03:34 115 07/17/18 00:00 98.0 112 22 112/70 (84) 98 07/17/18 00:00 Room Air 07/16/18 23:30 112 07/16/18 20:00 97.7 110 20 112/46 (68) 97 07/16/18 20:00 Room Air 07/16/18 19:23 116 07/16/18 16:00 97.0 100 24 101/68 (79) 100 07/16/18 16:00 97 07/16/18 16:00 Room Air 07/16/18 12:00 97.2 109 24 95/60 (72) 100 07/16/18 12:00 Room Air 07/16/18 11:51 107 Intake and Output 07/16/18 07/17/18 19:00 07:00 Intake Total 280 ml 1318 ml Balance 280 ml 1318 ml Intake Oral 240 ml IV Total 280 ml 750 ml Blood Product 328 ml # Voids 2 3 # Bowel Movements 3 Laboratory Tests Test 07/16/18 13:20 07/16/18 20:30 07/17/18 01:00 07/17/18 04:00 White Blood Count 14.7 K/UL (4.8-10.8) H 18.5 K/UL (4.8-10.8) H 16.1 K/UL (4.8-10.8) H Red Blood Count 3.17 M/UL (4.70-6.10) L 2.78 M/UL (4.70-6.10) L 2.81 M/UL (4.70-6.10) L Hemoglobin 8.8 G/DL (14.2-18.0) L 7.9 G/DL (14.2-18.0) L 7.9 G/DL (14.2-18.0) L Hematocrit 27.2 % (42.0-52.0) L 23.0 % (42.0-52.0) L 23.7 % (42.0-52.0) L Mean Corpuscular Volume 86 FL (80-99) 83 FL (80-99) 84 FL (80-99) Mean Corpuscular Hemoglobin 27.8 PG (27.0-31.0) 28.2 PG (27.0-31.0) 28.2 PG (27.0-31.0) Mean Corpuscular Hemoglobin Concent 32.3 G/DL (32.0-36.0) 34.2 G/DL (32.0-36.0) 33.4 G/DL (32.0-36.0) Red Cell Distribution Width 17.9 % (11.6-14.8) H 17.7 % (11.6-14.8) H 18.0 % (11.6-14.8) H Platelet Count 8 K/UL (150-450) *L 18 K/UL (150-450) #L 41 K/UL (150-450) #L Mean Platelet Volume 10.5 FL (6.5-10.1) H 6.3 FL (6.5-10.1) L 8.2 FL (6.5-10.1) Neutrophils (%) (Auto) % (45.0-75.0) % (45.0-75.0) % (45.0-75.0) Lymphocytes (%) (Auto) % (20.0-45.0) % (20.0-45.0) % (20.0-45.0) Monocytes (%) (Auto) % (1.0-10.0) % (1.0-10.0) % (1.0-10.0) Eosinophils (%) (Auto) % (0.0-3.0) % (0.0-3.0) % (0.0-3.0) Basophils (%) (Auto) % (0.0-2.0) % (0.0-2.0) % (0.0-2.0) Differential Total Cells Counted 100 100 100 Neutrophils % (Manual) 74 % (45-75) 86 % (45-75) H 86 % (45-75) H Lymphocytes % (Manual) 5 % (20-45) L 6 % (20-45) L 8 % (20-45) L Monocytes % (Manual) 1 % (1-10) 3 % (1-10) 2 % (1-10) Eosinophils % (Manual) 3 % (0-3) 1 % (0-3) 1 % (0-3) Basophils % (Manual) 0 % (0-2) 0 % (0-2) 0 % (0-2) Band Neutrophils 17 % (0-8) H 3 % (0-8) 3 % (0-8) Nucleated Red Blood Cells 1 /100 WBC 1 /100 WBC 4 /100 WBC Platelet Estimate Decreased L Decreased L Decreased L Platelet Morphology Normal Normal Normal Polychromasia Occasional 1+ 1+ Anisocytosis 1+ 1+ 1+ Promyelocytes % 1 % (0-0) H Alma Cells 1+ Prothrombin Time 17.0 SEC (9.30-11.50) H Prothromb Time International Ratio 1.7 (0.9-1.1) H Activated Partial Thromboplast Time 63 SEC (23-33) H Sodium Level 132 MMOL/L (136-145) L Potassium Level 4.0 MMOL/L (3.5-5.1) Chloride Level 103 MMOL/L (98-107) Carbon Dioxide Level 17 MMOL/L (21-32) L Anion Gap 13 mmol/L (5-15) Blood Urea Nitrogen 65 mg/dL (7-18) H Creatinine 2.8 MG/DL (0.55-1.30) H Estimat Glomerular Filtration Rate 30.9 mL/min (>60) Glucose Level 57 MG/DL (74-106) L Calcium Level 6.6 MG/DL (8.5-10.1) L Phosphorus Level 6.7 MG/DL (2.5-4.9) H Magnesium Level 1.9 MG/DL (1.8-2.4) Total Bilirubin 1.4 MG/DL (0.2-1.0) H Direct Bilirubin 0.8 MG/DL (0.0-0.3) H Aspartate Amino Transf (AST/SGOT) 58 U/L (15-37) H Alanine Aminotransferase (ALT/SGPT) 10 U/L (12-78) L Alkaline Phosphatase 82 U/L (46-116) C-Reactive Protein, Quantitative 25.5 mg/dL (0.00-0.90) H Total Protein 4.8 G/DL (6.4-8.2) L Albumin 0.7 G/DL (3.4-5.0) L Globulin 4.1 g/dL Albumin/Globulin Ratio 0.2 (1.0-2.7) L Random Vancomycin Level 23.2 ug/mL Urine Random Sodium < 20 mmol/L (20-110) L Test 07/17/18 04:15 Urine Eosinophils None seen (NONE SEEN) Objective HEAD AND NECK: No jugular venous distention. LUNGS: Clear. CARDIOVASCULAR: Tachycardic S1, S2 with no gallop or murmur. ABDOMEN: Soft. EXTREMITIES: No pitting edema. Toney Howe MD July 17, 2018 11:46
[2018-07-17 11:52] VITALS: BP 104/61
--- NOTE | 2018-07-17 11:55 | Pulmonology Progress Note ---
Assessment/Plan Problems: (1) Severe sepsis (2) HIV disease (3) Sinus tachycardia (4) Anemia (5) Hepatitis C (6) Hepatitis B (7) Kaposi disease (8) Castleman disease (9) Protein-calorie malnutrition, severe Assessment/Plan hematology consult. s/p PLT transfusion DC Zosyn and Bacrim b/o thrombocytopenia, no evidence of gram negative sepsis f/u ID recommendation CD counts: 86 escobedo cultures,a ll negative so far pt refused previously excisional LN biopsy. symptomatic treatment check stool for OB, Positive, GI f/u Subjective ROS Limited/Unobtainable: No Constitutional: Reports: no symptoms HEENT: Repors: no symptoms Respiratory: Reports: no symptoms Allergies: Coded Allergies: No Known Allergies (Unverified , 10/21/17) Objective Last 24 Hour Vital Signs Date Time Temp Pulse Resp B/P (MAP) Pulse Ox O2 Delivery O2 Flow Rate FiO2 07/17/18 08:40 115 108/65 07/17/18 08:00 97.0 115 20 108/70 (83) 100 07/17/18 08:00 116 07/17/18 08:00 Room Air 07/17/18 07:41 100 Nasal Cannula 2.0 28 07/17/18 04:00 97.4 118 24 91/58 (69) 99 07/17/18 04:00 Room Air 07/17/18 03:34 115 07/17/18 00:00 98.0 112 22 112/70 (84) 98 07/17/18 00:00 Room Air 07/16/18 23:30 112 07/16/18 20:00 97.7 110 20 112/46 (68) 97 07/16/18 20:00 Room Air 07/16/18 19:23 116 07/16/18 16:00 97.0 100 24 101/68 (79) 100 07/16/18 16:00 97 07/16/18 16:00 Room Air 07/16/18 12:00 97.2 109 24 95/60 (72) 100 07/16/18 12:00 Room Air Intake and Output 07/16/18 07/17/18 19:00 07:00 Intake Total 280 ml 1318 ml Balance 280 ml 1318 ml Intake Oral 240 ml IV Total 280 ml 750 ml Blood Product 328 ml # Voids 2 3 # Bowel Movements 3 General Appearance: WD/WN, no acute distress HEENT: normocephalic Respiratory/Chest: chest wall non-tender, lungs clear Cardiovascular: normal peripheral pulses, normal rate Abdomen: soft, non tender, no organomegaly Genitourinary: normal external genitalia Extremities: no clubbing Skin: no lesions, no ulcers Neurologic/Psychiatric: no motor/sensory deficits Lymphatic: no neck adenopathy Musculoskeletal: normal muscle bulk Laboratory Tests 07/16/18 13:20: White Blood Count 14.7H, Red Blood Count 3.17L, Hemoglobin 8.8L, Hematocrit 27.2L, Mean Corpuscular Volume 86, Mean Corpuscular Hemoglobin 27.8, Mean Corpuscular Hemoglobin Concent 32.3, Red Cell Distribution Width 17.9H, Platelet Count 8*L, Mean Platelet Volume 10.5H, Neutrophils (%) (Auto) , Lymphocytes (%) (Auto) , Monocytes (%) (Auto) , Eosinophils (%) (Auto) , Basophils (%) (Auto) , Differential Total Cells Counted 100, Neutrophils % ( Manual) 74, Lymphocytes % (Manual) 5L, Monocytes % (Manual) 1, Eosinophils % ( Manual) 3, Basophils % (Manual) 0, Band Neutrophils 17H, Nucleated Red Blood Cells 1, Platelet Estimate DecreasedL, Platelet Morphology Normal, Polychromasia Occasional, Anisocytosis 1+ 07/16/18 20:30: White Blood Count 18.5H, Red Blood Count 2.78L, Hemoglobin 7.9L, Hematocrit 23.0L, Mean Corpuscular Volume 83, Mean Corpuscular Hemoglobin 28.2, Mean Corpuscular Hemoglobin Concent 34.2, Red Cell Distribution Width 17.7H, Platelet Count 18#L, Mean Platelet Volume 6.3L, Neutrophils (%) (Auto) , Lymphocytes (%) (Auto) , Monocytes (%) (Auto) , Eosinophils (%) (Auto) , Basophils (%) (Auto) , Differential Total Cells Counted 100, Neutrophils % ( Manual) 86H, Lymphocytes % (Manual) 6L, Monocytes % (Manual) 3, Eosinophils % ( Manual) 1, Basophils % (Manual) 0, Band Neutrophils 3, Nucleated Red Blood Cells 1, Platelet Estimate DecreasedL, Platelet Morphology Normal, Polychromasia 1+, Anisocytosis 1+, Promyelocytes % 1H 07/17/18 01:00: White Blood Count 16.1H, Red Blood Count 2.81L, Hemoglobin 7.9L, Hematocrit 23.7L, Mean Corpuscular Volume 84, Mean Corpuscular Hemoglobin 28.2, Mean Corpuscular Hemoglobin Concent 33.4, Red Cell Distribution Width 18.0H, Platelet Count 41#L, Mean Platelet Volume 8.2, Neutrophils (%) (Auto) , Lymphocytes (%) (Auto) , Monocytes (%) (Auto) , Eosinophils (%) (Auto) , Basophils (%) (Auto) , Differential Total Cells Counted 100, Neutrophils % ( Manual) 86H, Lymphocytes % (Manual) 8L, Monocytes % (Manual) 2, Eosinophils % ( Manual) 1, Basophils % (Manual) 0, Band Neutrophils 3, Nucleated Red Blood Cells 4, Platelet Estimate DecreasedL, Platelet Morphology Normal, Polychromasia 1+, Anisocytosis 1+, [place] Cells 1+, Prothrombin Time 17.0H, Prothromb Time International Ratio 1.7H, Activated Partial Thromboplast Time 63H , Sodium Level 132L, Potassium Level 4.0, Chloride Level 103, Carbon Dioxide Level 17L, Anion Gap 13, Blood Urea Nitrogen 65H, Creatinine 2.8H, Estimat Glomerular Filtration Rate 30.9, Glucose Level 57L, Calcium Level 6.6L, Phosphorus Level 6.7H, Magnesium Level 1.9, Total Bilirubin 1.4H, Direct Bilirubin 0.8H, Aspartate Amino Transf (AST/SGOT) 58H, Alanine Aminotransferase (ALT/SGPT) 10L, Alkaline Phosphatase 82, C-Reactive Protein, Quantitative 25.5H , Total Protein 4.8L, Albumin 0.7L, Globulin 4.1, Albumin/Globulin Ratio 0.2L, Random Vancomycin Level 23.2 07/17/18 04:00: Urine Random Sodium < 20L 07/17/18 04:15: Urine Eosinophils None seen Current Medications Medications (Trade) Dose Ordered Sig/Yessica Route PRN Reason Start Time Stop Time Status Last Admin Dose Admin Acetaminophen (Tylenol) 650 mg Q4H PRN ORAL fever 07/13/18 13:45 08/11/18 21:44 07/16/18 17:19 Acetaminophen/ Hydrocodone Bitart ([place] 5/325) 1 tab Q6H PRN ORAL Moderate Pain (Pain Scale 4-6) 07/16/18 20:45 07/23/18 20:44 07/17/18 06:03 Atovaquone (Mepron Susp) 1,500 mg DAILY ORAL 07/17/18 12:00 08/16/18 11:59 Azithromycin (Zithromax) 1,200 mg ONCE A WEEK ORAL 07/16/18 09:00 07/23/18 08:59 07/16/18 10:02 Chlorhexidine Gluconate (Felipa-Hex 2%) 1 applic DAILY@2000 TOPIC 07/16/18 20:00 08/15/18 19:59 Dextrose (Dextrose 50%) 25 ml Q30M PRN IV Hypoglycemia 07/13/18 10:15 08/11/18 21:44 Dextrose (Dextrose 50%) 50 ml Q30M PRN IV Hypoglycemia 07/13/18 10:15 08/11/18 21:44 Dextrose/Sodium Chloride 1,000 ml @ 50 mls/hr Q20H IV 07/16/18 11:00 08/15/18 10:59 07/17/18 06:02 Diphenhydramine HCl (Benadryl) 25 mg Q6H PRN ORAL Itching/Pruritis 07/13/18 15:45 08/11/18 21:44 07/15/18 15:08 Dronabinol (Marinol) 5 mg BID ORAL 07/17/18 18:00 08/16/18 17:59 Heparin Sodium/ Sodium Chloride (Heparin 1000 units/500ml Premix) 1,000 unit ONCE PRN IV PICC 07/16/18 14:37 07/17/18 23:59 Lidocaine HCl (Xylocaine 1% 30ml) 30 ml ONCE PRN INJ picc 07/16/18 14:37 07/17/18 23:59 Metoprolol Tartrate (Lopressor) 25 mg BID ORAL 07/13/18 18:00 08/12/18 07:59 07/16/18 08:54 Metronidazole 100 ml @ 100 mls/hr Q8H IVPB 07/16/18 04:00 07/23/18 03:59 07/17/18 03:31 Mirtazapine (Remeron) 15 mg BEDTIME ORAL 07/13/18 21:00 08/12/18 20:59 07/16/18 20:09 Morphine Sulfate (Morphine Sulfate) 2 mg Q4H PRN IVP Moderate Pain (Pain Scale 4-6) 07/16/18 17:45 07/19/18 21:44 Morphine Sulfate (Morphine Sulfate) 4 mg Q4H PRN IVP Severe Pain (Pain Scale 7-10) 07/16/18 17:45 07/23/18 17:44 Nitroglycerin (Ntg) 0.4 mg Q5M X 3 DOSES PRN SL Prn Chest Pain 07/13/18 10:00 08/11/18 21:44 Ondansetron HCl (Zofran) 4 mg Q6H PRN IVP Nausea & Vomiting 07/13/18 15:45 08/11/18 21:44 07/17/18 06:03 Pantoprazole (Protonix) 40 mg ACBREAKFAST ORAL 07/18/18 09:00 08/17/18 08:59 Patient Own Medication (Patient's Own Med) 1 ea DAILY ORAL 07/14/18 09:00 08/13/18 08:59 07/17/18 08:40 Patient Own Medication (Patient's Own Med) 1 ea DAILY ORAL 07/14/18 09:00 08/13/18 08:59 07/17/18 08:40 Temazepam (Restoril) 15 mg HSPRN PRN ORAL Insomnia 07/13/18 21:45 07/19/18 21:44 Tigecycline 100 mg/Sodium Chloride 110 ml @ 110 mls/hr ONCE ONCE IVPB 07/17/18 11:00 07/17/18 11:59 Tigecycline 50 mg/ Sodium Chloride 110 ml @ 220 mls/hr EVERY 12 HOURS IVPB 07/17/18 21:00 07/24/18 20:59 Vancomycin HCl (Firvanq) 125 mg FOUR TIMES A DAY ORAL 07/14/18 13:00 07/21/18 12:59 07/17/18 08:40 Ya Hester MD July 17, 2018 11:55
[2018-07-17] MEDS: Atovaquone 750mg/5ml Susp ORAL SCH (12:20)
--- NOTE | 2018-07-17 12:44 | Diagnostic Imaging Report ---
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 The left upper extremity was prepped with alcohol. All elements of maximal sterile barrier technique were followed including usage of a cap, mask, sterile gown, sterile gloves, hand hygiene and a large sterile sheet. Sonographic evaluation of the upper extremity was performed demonstrating a patent and compressible brachial vein. Access was obtained under real-time ultrasound guidance (with utilization of sterile gel and sterile probe cover) and digital image was saved and archived. An .018 wire was introduced. Needle exchanged for a 5 Irish peel-away sheath. Measurements were obtained. A 5 Irish dual-lumen Power PICC line catheter was cut to 30 cm and introduced over the wire. Peel-away sheath and wire were removed.Catheter was secured to the skin using 2-0 Prolene suture. Both ports aspirate and flush easily. Post procedure chest x-ray demonstrates PICC line catheter tip projected over the trachea within the expected location of the left innominate vein. Impression: Successful placement of an upper extremity PICC line catheter. The tip is in the left innominate vein and may be utilized.
--- NOTE | 2018-07-17 13:27 | Nephrology Progress Note ---
Assessment/Plan Problem List: (1) REENA (acute kidney injury) (2) Sinus tachycardia (3) Electrolyte imbalance (4) HIV disease (5) Kaposi disease (6) Sepsis (7) Hepatitis B (8) Hepatitis C (9) Protein-calorie malnutrition, severe Assessment Acute renal failure Cr 1.2 up to 2 Acute worsening Anemia Hgb 8.5 to mid 6 severe hypoalbuminemia / Malnutrition Hypotensive / Tachycardia / Sepsis Plan gomez , REFUSING Avoid Nephrotoxics as possible ( Bactrim..... urine studies Keep BP over 100 syst monitor renal parameters saline infusion in view of low Urine Na and Low S Na per consultants poor prognosis Subjective ROS Limited/Unobtainable: No Constitutional: Reports: malaise, weakness Objective Objective Last 24 Hour Vital Signs Date Time Temp Pulse Resp B/P (MAP) Pulse Ox O2 Delivery O2 Flow Rate FiO2 07/17/18 12:00 115 07/17/18 12:00 Room Air 07/17/18 11:52 98.0 110 20 104/61 (75) 100 07/17/18 08:40 115 108/65 07/17/18 08:00 97.0 115 20 108/70 (83) 100 07/17/18 08:00 116 07/17/18 08:00 Room Air 07/17/18 07:41 100 Nasal Cannula 2.0 28 07/17/18 04:00 97.4 118 24 91/58 (69) 99 07/17/18 04:00 Room Air 07/17/18 03:34 115 07/17/18 00:00 98.0 112 22 112/70 (84) 98 07/17/18 00:00 Room Air 07/16/18 23:30 112 07/16/18 20:00 97.7 110 20 112/46 (68) 97 07/16/18 20:00 Room Air 07/16/18 19:23 116 07/16/18 16:00 97.0 100 24 101/68 (79) 100 07/16/18 16:00 97 07/16/18 16:00 Room Air Intake and Output 07/16/18 07/17/18 19:00 07:00 Intake Total 280 ml 1318 ml Balance 280 ml 1318 ml Intake Oral 240 ml IV Total 280 ml 750 ml Blood Product 328 ml # Voids 2 3 # Bowel Movements 3 Laboratory Tests 07/16/18 20:30: White Blood Count 18.5H, Red Blood Count 2.78L, Hemoglobin 7.9L, Hematocrit 23.0L, Mean Corpuscular Volume 83, Mean Corpuscular Hemoglobin 28.2, Mean Corpuscular Hemoglobin Concent 34.2, Red Cell Distribution Width 17.7H, Platelet Count 18#L, Mean Platelet Volume 6.3L, Neutrophils (%) (Auto) , Lymphocytes (%) (Auto) , Monocytes (%) (Auto) , Eosinophils (%) (Auto) , Basophils (%) (Auto) , Differential Total Cells Counted 100, Neutrophils % ( Manual) 86H, Lymphocytes % (Manual) 6L, Monocytes % (Manual) 3, Eosinophils % ( Manual) 1, Basophils % (Manual) 0, Promyelocytes % 1H, Band Neutrophils 3, Nucleated Red Blood Cells 1, Platelet Estimate DecreasedL, Platelet Morphology Normal, Polychromasia 1+, Anisocytosis 1+ 07/17/18 01:00: White Blood Count 16.1H, Red Blood Count 2.81L, Hemoglobin 7.9L, Hematocrit 23.7L, Mean Corpuscular Volume 84, Mean Corpuscular Hemoglobin 28.2, Mean Corpuscular Hemoglobin Concent 33.4, Red Cell Distribution Width 18.0H, Platelet Count 41#L, Mean Platelet Volume 8.2, Neutrophils (%) (Auto) , Lymphocytes (%) (Auto) , Monocytes (%) (Auto) , Eosinophils (%) (Auto) , Basophils (%) (Auto) , Differential Total Cells Counted 100, Neutrophils % ( Manual) 86H, Lymphocytes % (Manual) 8L, Monocytes % (Manual) 2, Eosinophils % ( Manual) 1, Basophils % (Manual) 0, Band Neutrophils 3, Nucleated Red Blood Cells 4, Platelet Estimate DecreasedL, Platelet Morphology Normal, Polychromasia 1+, Anisocytosis 1+, [place] Cells 1+, Prothrombin Time 17.0H, Prothromb Time International Ratio 1.7H, Activated Partial Thromboplast Time 63H , Sodium Level 132L, Potassium Level 4.0, Chloride Level 103, Carbon Dioxide Level 17L, Anion Gap 13, Blood Urea Nitrogen 65H, Creatinine 2.8H, Estimat Glomerular Filtration Rate 30.9, Glucose Level 57L, Calcium Level 6.6L, Phosphorus Level 6.7H, Magnesium Level 1.9, Total Bilirubin 1.4H, Direct Bilirubin 0.8H, Aspartate Amino Transf (AST/SGOT) 58H, Alanine Aminotransferase (ALT/SGPT) 10L, Alkaline Phosphatase 82, C-Reactive Protein, Quantitative 25.5H , Total Protein 4.8L, Albumin 0.7L, Globulin 4.1, Albumin/Globulin Ratio 0.2L, Random Vancomycin Level 23.2 07/17/18 04:00: Urine Random Sodium < 20L 07/17/18 04:15: Urine Eosinophils None seen Height (Feet): 6 Height (Inches): 0.00 Weight (Pounds): 142 General Appearance: no apparent distress Cardiovascular: tachycardia Respiratory/Chest: decreased breath sounds Adam Aguiar MD July 17, 2018 13:27
--- NOTE | 2018-07-17 14:30 | NUR ---
NURSE NOTES: Called and informed Dr. Padron of S/P x-ray to confirm PICC placement. Dr. Padron acknowledged and ordered, "Okay to use PICC line." Charge nurse aware. Order entered, noted, and carried out. Will continue to monitor patient.
--- NOTE | 2018-07-17 15:00 | NUR ---
NURSE NOTES: Contacted and reported to Dr. Bingham regarding new Hgb level of 6.6 and new platelet level of 12,000. Dr. Bingham acknowledged and ordered to transfuse 1 unit of PRBC and 1 unit of plateletpheresis. Orders entered, noted, and carried out. Will continue to monitor patient.
[2018-07-17 15:02] LABS: HEMATOCRIT 19.7 % (42.0-52.0); MEAN CORPUSCULAR VOLUME 85 FL (80-99); PLATELET COUNT 12 K/UL (150-450); RED BLOOD COUNT 2.33 M/UL (4.70-6.10); RED CELL DISTRIBUTION WIDTH 18.5 % (11.6-14.8); WHITE BLOOD COUNT 15.6 K/UL (4.8-10.8)
[2018-07-17 15:13] LABS: ANION GAP 12 mmol/L (5-15); BLOOD UREA NITROGEN 74 mg/dL (7-18); CALCIUM 6.2 MG/DL (8.5-10.1); CARBON DIOXIDE 15 MMOL/L (21-32); CHLORIDE 104 MMOL/L (98-107); CREATININE 3.1 MG/DL (0.55-1.30); POTASSIUM 4.3 MMOL/L (3.5-5.1); SODIUM 131 MMOL/L (136-145)
[2018-07-17 15:22] LABS: HEMOGLOBIN 6.6 G/DL (14.2-18.0)
[2018-07-17 16:00] VITALS: BP 109/61
--- NOTE | 2018-07-17 17:00 | NUR ---
NURSE NOTES: Patient noted with 93.5 F axillary temperature, reassessed temperature rectally, resulted 94.5 F. Placed patient in gabe hugger. Patient is alert and oriented x 4. Made charge nurse aware. Will continue to monitor patient.
--- NOTE | 2018-07-17 17:05 | NUR ---
NURSE NOTES: Reassessed patient's temperature axillary, resulted 96.[address] Padron regarding situation with temperature, per Dr. Padron, "if hypothermia continues, report to infectious disease consult." Order entered, noted, and carried out. Will continue to monitor patient.
[2018-07-17] MEDS: Dronabinol 2.5mg Cap ORAL SCH (17:17)
--- NOTE | 2018-07-17 17:45 | NUR ---
NURSE NOTES: Patient continued to refuse Gomez catheter insertion. Explained risks and negative outcomes of not getting gomez catheter insertion. Patient verbalized understanding and stated "Will let you know tomorrow." Respected patient rights. Noted. Will continue to monitor patient.
--- NOTE | 2018-07-17 18:47 | Internal Med Progress Note ---
Subjective Date of Service: July 17, 2018 Physician Name PadronAdam Attending Physician Alberto Gtz MD Current Medications Medications (Trade) Dose Ordered Sig/Yessica Route PRN Reason Start Time Stop Time Status Last Admin Dose Admin Acetaminophen (Tylenol) 650 mg Q4H PRN ORAL fever 07/13/18 13:45 08/11/18 21:44 07/16/18 17:19 Acetaminophen/ Hydrocodone Bitart ([place] 5/325) 1 tab Q6H PRN ORAL Moderate Pain (Pain Scale 4-6) 07/16/18 20:45 07/23/18 20:44 07/17/18 06:03 Atovaquone (Mepron Susp) 1,500 mg DAILY ORAL 07/17/18 12:00 08/16/18 11:59 07/17/18 12:20 Azithromycin (Zithromax) 1,200 mg ONCE A WEEK ORAL 07/16/18 09:00 07/23/18 08:59 07/16/18 10:02 Chlorhexidine Gluconate (Felipa-Hex 2%) 1 applic DAILY@2000 TOPIC 07/16/18 20:00 08/15/18 19:59 Dextrose (Dextrose 50%) 25 ml Q30M PRN IV Hypoglycemia 07/13/18 10:15 08/11/18 21:44 Dextrose (Dextrose 50%) 50 ml Q30M PRN IV Hypoglycemia 07/13/18 10:15 08/11/18 21:44 Dextrose/Sodium Chloride 1,000 ml @ 50 mls/hr Q20H IV 07/16/18 11:00 08/15/18 10:59 07/17/18 06:02 Diphenhydramine HCl (Benadryl) 25 mg Q6H PRN ORAL Itching/Pruritis 07/13/18 15:45 08/11/18 21:44 07/15/18 15:08 Dronabinol (Marinol) 5 mg BID ORAL 07/17/18 18:00 08/16/18 17:59 07/17/18 17:17 Heparin Sodium/ Sodium Chloride (Heparin 1000 units/500ml Premix) 1,000 unit ONCE PRN IV PICC 07/16/18 14:37 07/17/18 23:59 Lidocaine HCl (Xylocaine 1% 30ml) 30 ml ONCE PRN INJ picc 07/16/18 14:37 07/17/18 23:59 Metoprolol Tartrate (Lopressor) 25 mg BID ORAL 07/13/18 18:00 08/12/18 07:59 07/16/18 08:54 Metronidazole 100 ml @ 100 mls/hr Q8H IVPB 07/16/18 04:00 07/23/18 03:59 07/17/18 14:10 Mirtazapine (Remeron) 15 mg BEDTIME ORAL 07/13/18 21:00 08/12/18 20:59 07/16/18 20:09 Morphine Sulfate (Morphine Sulfate) 2 mg Q4H PRN IVP Moderate Pain (Pain Scale 4-6) 07/16/18 17:45 07/19/18 21:44 07/17/18 12:17 Morphine Sulfate (Morphine Sulfate) 4 mg Q4H PRN IVP Severe Pain (Pain Scale 7-10) 07/16/18 17:45 07/23/18 17:44 Nitroglycerin (Ntg) 0.4 mg Q5M X 3 DOSES PRN SL Prn Chest Pain 07/13/18 10:00 08/11/18 21:44 Ondansetron HCl (Zofran) 4 mg Q6H PRN IVP Nausea & Vomiting 07/13/18 15:45 08/11/18 21:44 07/17/18 06:03 Pantoprazole (Protonix) 40 mg ACBREAKFAST ORAL 07/18/18 09:00 08/17/18 08:59 Patient Own Medication (Patient's Own Med) 1 ea DAILY ORAL 07/14/18 09:00 08/13/18 08:59 07/17/18 08:40 Patient Own Medication (Patient's Own Med) 1 ea DAILY ORAL 07/14/18 09:00 08/13/18 08:59 07/17/18 08:40 Temazepam (Restoril) 15 mg HSPRN PRN ORAL Insomnia 07/13/18 21:45 07/19/18 21:44 Tigecycline 50 mg/ Sodium Chloride 110 ml @ 220 mls/hr EVERY 12 HOURS IVPB 07/17/18 21:00 07/24/18 20:59 Vancomycin HCl (Firvanq) 125 mg FOUR TIMES A DAY ORAL 07/14/18 13:00 07/21/18 12:59 07/17/18 17:17 Allergies: Coded Allergies: No Known Allergies (Unverified , 10/21/17) ROS Limited/Unobtainable: No Constitutional: Reports: chills, fever HEENT: Reports: no symptoms Cardiovascular: Reports: no symptoms Respiratory: Reports: no symptoms Gastrointestinal/Abdominal: Reports: no symptoms Genitourinary: Reports: no symptoms Neurologic/Psychiatric: Reports: no symptoms Subjective 37 YO M with HIV admitted with abdominal pain, nausea and vomiting. Now clostridium difficile diarrhea. Cover for Int Med-Dr Gtz. SOFIA Objective Last Vital Signs Date Time Temp Pulse Resp B/P (MAP) Pulse Ox O2 Delivery O2 Flow Rate FiO2 07/17/18 16:17 Room Air 07/17/18 16:00 94.5 112 20 109/61 (77) 100 07/17/18 07:41 2.0 28 Laboratory Tests Test 07/16/18 20:30 07/17/18 01:00 07/17/18 04:00 07/17/18 04:15 White Blood Count 18.5 K/UL (4.8-10.8) H 16.1 K/UL (4.8-10.8) H Red Blood Count 2.78 M/UL (4.70-6.10) L 2.81 M/UL (4.70-6.10) L Hemoglobin 7.9 G/DL (14.2-18.0) L 7.9 G/DL (14.2-18.0) L Hematocrit 23.0 % (42.0-52.0) L 23.7 % (42.0-52.0) L Mean Corpuscular Volume 83 FL (80-99) 84 FL (80-99) Mean Corpuscular Hemoglobin 28.2 PG (27.0-31.0) 28.2 PG (27.0-31.0) Mean Corpuscular Hemoglobin Concent 34.2 G/DL (32.0-36.0) 33.4 G/DL (32.0-36.0) Red Cell Distribution Width 17.7 % (11.6-14.8) H 18.0 % (11.6-14.8) H Platelet Count 18 K/UL (150-450) #L 41 K/UL (150-450) #L Mean Platelet Volume 6.3 FL (6.5-10.1) L 8.2 FL (6.5-10.1) Neutrophils (%) (Auto) % (45.0-75.0) % (45.0-75.0) Lymphocytes (%) (Auto) % (20.0-45.0) % (20.0-45.0) Monocytes (%) (Auto) % (1.0-10.0) % (1.0-10.0) Eosinophils (%) (Auto) % (0.0-3.0) % (0.0-3.0) Basophils (%) (Auto) % (0.0-2.0) % (0.0-2.0) Differential Total Cells Counted 100 100 Neutrophils % (Manual) 86 % (45-75) H 86 % (45-75) H Lymphocytes % (Manual) 6 % (20-45) L 8 % (20-45) L Monocytes % (Manual) 3 % (1-10) 2 % (1-10) Eosinophils % (Manual) 1 % (0-3) 1 % (0-3) Basophils % (Manual) 0 % (0-2) 0 % (0-2) Promyelocytes % 1 % (0-0) H Band Neutrophils 3 % (0-8) 3 % (0-8) Nucleated Red Blood Cells 1 /100 WBC 4 /100 WBC Platelet Estimate Decreased L Decreased L Platelet Morphology Normal Normal Polychromasia 1+ 1+ Anisocytosis 1+ 1+ Stanton Cells 1+ Prothrombin Time 17.0 SEC (9.30-11.50) H Prothromb Time International Ratio 1.7 (0.9-1.1) H Activated Partial Thromboplast Time 63 SEC (23-33) H Sodium Level 132 MMOL/L (136-145) L Potassium Level 4.0 MMOL/L (3.5-5.1) Chloride Level 103 MMOL/L (98-107) Carbon Dioxide Level 17 MMOL/L (21-32) L Anion Gap 13 mmol/L (5-15) Blood Urea Nitrogen 65 mg/dL (7-18) H Creatinine 2.8 MG/DL (0.55-1.30) H Estimat Glomerular Filtration Rate 30.9 mL/min (>60) Glucose Level 57 MG/DL (74-106) L Calcium Level 6.6 MG/DL (8.5-10.1) L Phosphorus Level 6.7 MG/DL (2.5-4.9) H Magnesium Level 1.9 MG/DL (1.8-2.4) Total Bilirubin 1.4 MG/DL (0.2-1.0) H Direct Bilirubin 0.8 MG/DL (0.0-0.3) H Aspartate Amino Transf (AST/SGOT) 58 U/L (15-37) H Alanine Aminotransferase (ALT/SGPT) 10 U/L (12-78) L Alkaline Phosphatase 82 U/L (46-116) C-Reactive Protein, Quantitative 25.5 mg/dL (0.00-0.90) H Total Protein 4.8 G/DL (6.4-8.2) L Albumin 0.7 G/DL (3.4-5.0) L Globulin 4.1 g/dL Albumin/Globulin Ratio 0.2 (1.0-2.7) L Random Vancomycin Level 23.2 ug/mL Urine Random Sodium < 20 mmol/L (20-110) L Urine Eosinophils None seen (NONE SEEN) Test 07/17/18 14:45 White Blood Count 15.6 K/UL (4.8-10.8) H Red Blood Count 2.33 M/UL (4.70-6.10) L Hemoglobin 6.6 G/DL (14.2-18.0) *L Hematocrit 19.7 % (42.0-52.0) L Mean Corpuscular Volume 85 FL (80-99) Mean Corpuscular Hemoglobin 28.4 PG (27.0-31.0) Mean Corpuscular Hemoglobin Concent 33.6 G/DL (32.0-36.0) Red Cell Distribution Width 18.5 % (11.6-14.8) H Platelet Count 12 K/UL (150-450) #L Mean Platelet Volume 8.2 FL (6.5-10.1) Neutrophils (%) (Auto) % (45.0-75.0) Lymphocytes (%) (Auto) % (20.0-45.0) Monocytes (%) (Auto) % (1.0-10.0) Eosinophils (%) (Auto) % (0.0-3.0) Basophils (%) (Auto) % (0.0-2.0) Differential Total Cells Counted 100 Neutrophils % (Manual) 78 % (45-75) H Lymphocytes % (Manual) 9 % (20-45) L Monocytes % (Manual) 3 % (1-10) Eosinophils % (Manual) 2 % (0-3) Basophils % (Manual) 0 % (0-2) Band Neutrophils 8 % (0-8) Nucleated Red Blood Cells 7 /100 WBC Platelet Estimate Decreased L Platelet Morphology Normal Polychromasia 1+ Hypochromasia 2+ Anisocytosis 1+ Sodium Level 131 MMOL/L (136-145) L Potassium Level 4.3 MMOL/L (3.5-5.1) Chloride Level 104 MMOL/L (98-107) Carbon Dioxide Level 15 MMOL/L (21-32) L Anion Gap 12 mmol/L (5-15) Blood Urea Nitrogen 74 mg/dL (7-18) H Creatinine 3.1 MG/DL (0.55-1.30) H Estimat Glomerular Filtration Rate 27.5 mL/min (>60) Glucose Level 90 MG/DL (74-106) Calcium Level 6.2 MG/DL (8.5-10.1) L Intake and Output 07/16/18 07/17/18 19:00 07:00 Intake Total 280 ml 1318 ml Balance 280 ml 1318 ml Intake Oral 240 ml IV Total 280 ml 750 ml Blood Product 328 ml # Voids 2 3 # Bowel Movements 3 Objective PHYSICAL EXAMINATION: GENERAL: The patient is thin-appearing male, in no apparent distress. HEENT: Eyes, pupils equal and responsive to light and accommodation. Extraocular movements are intact. NECK: Supple without lymphadenopathy. CHEST: Lungs are clear to auscultation bilaterally without wheezes or rales. CARDIOVASCULAR: Tachycardic, regular rhythm. S1 and S2 are normal without murmurs, rubs, or gallops. ABDOMEN: Soft, nontender, nondistended. Positive bowel sounds. No evidence of hepatosplenomegaly. Currently, no rebound or guarding noted. RECTAL: Refused. GENITALIA: Refused. EXTREMITIES: Negative for clubbing, cyanosis, or edema. NEUROLOGIC: Cranial nerves II through XII are grossly intact without focal deficits. Motor strength is 5/5 bilaterally intact. Deep tendon reflexes are 2+ plantar. Assessment/Plan Assessment/Plan ASSESSMENT: This is a 37-year-old male with: 1. Abdominal pain. 2. Nausea with vomiting. 3. Diarrhea. 4. Rectal bleeding. 5. Human immunodeficiency virus. 6. Kaposi's sarcoma. 7. Castleman's disease. 8. Hepatitis B. 9. Clostridium difficile diarrhea 10. Severe anemia-blood loss 11. Thrombocytopenia TREATMENT: 1. Abdominal pain/nausea/vomiting/rectal bleeding. The patient has history of Clostridium difficile, which was resistant to Flagyl. An Infectious Diseases consultation has been obtained with Dr. Mendoza. A Gastroenterology consultation has been obtained with Dr. Michael Grande. We will follow recommendations of GI and Infectious Diseases. 2. Human immunodeficiency virus. Continue HAART as above. 3. Kaposi's sarcoma. The patient is status post chemotherapy. 4. Castleman's disease. Please see the previous history and physical from previous hospitalization. 5. Hepatitis B. 6. Continue oral vancomycin; add flagyl per GI 7. S/P transfusion 1 unit PRBC 07/14/18; Transfuse 2 units PRBC 07/15/18; transfuse 1 unit PRBC today 8. V/Q scan 07/15/18. 9. S/P Transfusion 1 unit platelets 07/16/18; transfuse 1 unit platelets tonight 10. see Heme/onc consult Adam Padron MD July 17, 2018 18:47
--- NOTE | 2018-07-17 19:15 | NUR ---
NURSE NOTES: Received report from Radha Layton RN. Patient is awake in bed, A/O x4. Sinus tach on school lunch monitor. No s/s of acute distress noted. Receiving 2L O2 via nasal cannula, saturating well. Left upper arm PICC, double lumen, intact and patent, running 1 unit of platelets as prescribed. Bed locked in lowest position with side rails up x2. Call light left within reach. Will continue to monitor.
--- NOTE | 2018-07-17 19:30 | NUR ---
HAND-OFF: Report given to TRES Lowe.
[2018-07-17 20:00] VITALS: BP 100/64
[2018-07-17] MEDS: Dyna-Hex 2% Top Sol 2oz TOPIC SCH (20:11)
[2018-07-17] MEDS: Tigecycline 50 MG in NS 110 ML IVPB SCH (21:28)
[2018-07-18] VITALS: BP 96/67
[2018-07-18] MEDS: D5NS 1,000 ML IV SCH ×2 (01:45→23:12)
[2018-07-18 04:00] VITALS: BP 90/55
--- NOTE | 2018-07-18 04:00 | NUR ---
NURSE NOTES: Patient refused to be cleaned. CHG bath risks and benefits explained. Patient still refused. Will endorse. Patient also refused rectal temperature to be checked.
[2018-07-18 05:37] LABS: HEMATOCRIT 20.4 % (42.0-52.0); MEAN CORPUSCULAR VOLUME 84 FL (80-99); PLATELET COUNT 13 K/UL (150-450); RED BLOOD COUNT 2.43 M/UL (4.70-6.10); RED CELL DISTRIBUTION WIDTH 16.8 % (11.6-14.8); WHITE BLOOD COUNT 15.6 K/UL (4.8-10.8)
--- NOTE | 2018-07-18 05:44 | NUR ---
NURSE NOTES: Left message for Dr. Leandra MD regarding patient's hypothermia. Awaiting response.
[2018-07-18 06:03] LABS: ALBUMIN 0.8 G/DL (3.4-5.0); ALBUMIN/GLOBULIN RATIO 0.2 (1.0-2.7); ALKALINE PHOSPHATASE 92 U/L (46-116); ANION GAP 15 mmol/L (5-15); BLOOD UREA NITROGEN 76 mg/dL (7-18); CALCIUM 6.1 MG/DL (8.5-10.1); CARBON DIOXIDE 13 MMOL/L (21-32); CHLORIDE 105 MMOL/L (98-107); CREATININE 3.3 MG/DL (0.55-1.30); PHOSPHORUS 7.8 MG/DL (2.5-4.9); POTASSIUM 4.5 MMOL/L (3.5-5.1); SODIUM 133 MMOL/L (136-145)
[2018-07-18 06:08] LABS: HEMOGLOBIN 6.9 G/DL (14.2-18.0)
[2018-07-18 06:17] LABS: ALANINE AMINOTRANSFERASE 22 U/L (12-78); ASPARTATE AMINO TRANSFERASE 68 U/L (15-37)
[2018-07-18 06:19] LABS: BILIRUBIN,DIRECT 1.3 MG/DL (0.0-0.3)
--- NOTE | 2018-07-18 06:34 | NUR ---
NURSE NOTES: Received new orders from Dr. Otilia MD. Noted and carried out.
--- NOTE | 2018-07-18 06:59 | NUR ---
NURSE NOTES: Left message for Dr. Kelly MD regarding patient's hypothermia. Awaiting response.
--- NOTE | 2018-07-18 07:00 | NUR ---
HAND-OFF: Report given to Jess Garcia RN.
--- NOTE | 2018-07-18 07:00 | NUR ---
NURSE NOTES: received patient report from tasha melchor. patient is on bed awake.per report from global recruiter nurse. patient is more confuse today since yesterday. blood pressure has been low, aware. for 1 prbc and 1 platelet transfusion. global recruiter nurse left a message to dr turner this AM regarding hypothermia. will follow plan of care.
--- NOTE | 2018-07-18 07:28 | NUR ---
NURSE NOTES: received patient report from roxie melchor. patient is on bed awake. not in acute distress. for HD today via [facility], under dr ruma martínez.patient is noted to AOX4. bed is low and locked for safety. will follow plan of care. Addendum: 07/18/18 at 0730 by MACO ZARAGOZA RN wrong entry. disregard note above.
--- NOTE | 2018-07-18 07:52 | General Progress Note ---
Assessment/Plan Assessment/Plan: (1) Dehydration (2) Electrolyte imbalance (3) Castleman disease (4) HIV disease (5) Anemia (6) C. difficile colitis (7) Nausea, vomiting, and diarrhea (8) Protein-calorie malnutrition, severe Plan refused GI procedures cdiff positive IV/PO hydration + electrolyte correction zofran prn monitor H&H, prn transfusions, last unit yesterday on po vanco will and iv flagyl recommend dc other abx if ok with ID change protonix to daily add marinol follow labs poor prognosis dc protonix Subjective ROS Limited/Unobtainable: Yes Allergies: Coded Allergies: No Known Allergies (Unverified , 10/21/17) Subjective diarrhea abd pain poor appetite Objective Last 24 Hour Vital Signs Date Time Temp Pulse Resp B/P (MAP) Pulse Ox O2 Delivery O2 Flow Rate FiO2 07/18/18 04:00 94.5 115 18 90/55 (67) 100 07/18/18 04:00 Nasal Cannula 2.0 07/18/18 03:59 119 07/18/18 00:07 110 07/18/18 00:00 Nasal Cannula 2.0 07/18/18 00:00 95.9 109 20 96/67 (77) 100 07/17/18 20:00 Nasal Cannula 2.0 07/17/18 20:00 114 07/17/18 20:00 94.5 116 18 100/64 (76) 100 07/17/18 16:17 Room Air 07/17/18 16:00 94.5 112 20 109/61 (77) 100 07/17/18 16:00 112 07/17/18 12:00 115 07/17/18 12:00 Room Air 07/17/18 11:52 98.0 110 20 104/61 (75) 100 07/17/18 08:40 115 108/65 07/17/18 08:00 97.0 115 20 108/70 (83) 100 07/17/18 08:00 116 07/17/18 08:00 Room Air Intake and Output 07/17/18 07/18/18 18:59 06:59 Intake Total 300 ml 1072.5 ml Balance 300 ml 1072.5 ml Intake Oral 300 ml 50 ml IV Total 522.5 ml Blood Product 500 ml # Bowel Movements 1 Laboratory Tests 07/17/18 14:45: White Blood Count 15.6H, Red Blood Count 2.33L, Hemoglobin 6.6*L, Hematocrit 19.7L, Mean Corpuscular Volume 85, Mean Corpuscular Hemoglobin 28.4, Mean Corpuscular Hemoglobin Concent 33.6, Red Cell Distribution Width 18.5H, Platelet Count 12#L, Mean Platelet Volume 8.2, Neutrophils (%) (Auto) , Lymphocytes (%) (Auto) , Monocytes (%) (Auto) , Eosinophils (%) (Auto) , Basophils (%) (Auto) , Differential Total Cells Counted 100, Neutrophils % ( Manual) 78H, Lymphocytes % (Manual) 9L, Monocytes % (Manual) 3, Eosinophils % ( Manual) 2, Basophils % (Manual) 0, Band Neutrophils 8, Nucleated Red Blood Cells 7, Platelet Estimate DecreasedL, Platelet Morphology Normal, Polychromasia 1+, Hypochromasia 2+, Anisocytosis 1+, Sodium Level 131L, Potassium Level 4.3, Chloride Level 104, Carbon Dioxide Level 15L, Anion Gap 12 , Blood Urea Nitrogen 74H, Creatinine 3.1H, Estimat Glomerular Filtration Rate 27.5, Glucose Level 90, Calcium Level 6.2L 07/18/18 05:00: White Blood Count 15.6H, Red Blood Count 2.43L, Hemoglobin 6.9*L, Hematocrit 20.4L, Mean Corpuscular Volume 84, Mean Corpuscular Hemoglobin 28.6, Mean Corpuscular Hemoglobin Concent 34.1, Red Cell Distribution Width 16.8H, Platelet Count 13L, Mean Platelet Volume 7.6, Neutrophils (%) (Auto) , Lymphocytes (%) (Auto) , Monocytes (%) (Auto) , Eosinophils (%) (Auto) , Basophils (%) (Auto) , Neutrophils % (Manual) [Pending], Lymphocytes % (Manual) [Pending], Platelet Estimate [Pending], Platelet Morphology [Pending], Sodium Level 133L, Potassium Level 4.5, Chloride Level 105, Carbon Dioxide Level 13L, Anion Gap 15, Blood Urea Nitrogen 76H, Creatinine 3.3H, Estimat Glomerular Filtration Rate 25.6, Glucose Level 92, Calcium Level 6.1L, Erythrocyte Sedimentation Rate 86H, Phosphorus Level 7.8H, Magnesium Level 1.6L, Total Bilirubin 2.0H, Direct Bilirubin 1.3H, Aspartate Amino Transf (AST/SGOT) 68H, Alanine Aminotransferase (ALT/SGPT) 22, Alkaline Phosphatase 92, C-Reactive Protein, Quantitative 22.1H, Total Protein 4.1L, Albumin 0.8L, Globulin 3.3, Albumin/Globulin Ratio 0.2L Height (Feet): 6 Height (Inches): 0.00 Weight (Pounds): 142 General Appearance: lethargic EENT: normal ENT inspection Neck: supple Cardiovascular: normal rate Respiratory/Chest: decreased breath sounds Abdomen: normal bowel sounds, non tender, soft Extremities: non-tender Michael Grande MD Jul 18, 2018 07:52
--- NOTE | 2018-07-18 07:56 | Pulmonology Progress Note ---
Assessment/Plan Assessment/Plan ASSESSMENT Severe sepsis secondary to C dif and pneumonia Recurrent C. difficile infection HIV/AIDS (CD4-86) Sinus tachycardia, secondary to sepsis Acute anemia of chronic disease Probably GI bleeding Hepatitis C Chronic hepatitis B Castleman disease Severe protein calorie malnutrition Acute kidney injury Severe thrombocytopenia, requiring PLT transfusion History of DVT E/lyte imbalance Pancytopenia Anemia of folate deficiency Moderate pulmonary hypertension PLAN OF CARE SOFIA abx as per ID recs Flagyl, p.o. Vanco , Atovaquone off Bactrim and Zosyn secondary to thrombocytopenia s/p PLT and PRBC transfusion , transfuse additional unit of PRBC and plateletpheresis today give bolus 500 cc NS continue with gentle IVF afterwards prior ECHO with EF 50%, mild cardiomyopathy , ' stool OB+ declined GI procedure stool cx negative blood cx negative CD4 86 , on ART ; questionable compliance with ART and p.o. Vanco VQ scan with low probability of PE ST likely due to severe sepsis , no evidence of SVT or A. fib, possibly also dehydration on BB O2 PRN titrate to keep pulse ox above 92%, HHN prn refused previous excisional lymph node biopsy monitor renal parameters, lytes, worsening renal failure f/up with nephro recs nurse at the bedside unable to insert the smallest size of Nguyen available, use condom cath venous duplex BLE negative flow cytometry with abnormal B-cell population poor prognosis consider code status change? case discussed and evaluated by supervising physician Subjective Allergies: Coded Allergies: No Known Allergies (Unverified , 10/21/17) Subjective leukocytosis persist, no fevers, Hgb 6.9, PLT 13, despite multiple transfusion worsening renal failure creat up to 3.3 BP low Objective Last 24 Hour Vital Signs Date Time Temp Pulse Resp B/P (MAP) Pulse Ox O2 Delivery O2 Flow Rate FiO2 07/18/18 04:00 94.5 115 18 90/55 (67) 100 07/18/18 04:00 Nasal Cannula 2.0 07/18/18 03:59 119 07/18/18 00:07 110 07/18/18 00:00 Nasal Cannula 2.0 07/18/18 00:00 95.9 109 20 96/67 (77) 100 07/17/18 20:00 Nasal Cannula 2.0 07/17/18 20:00 114 07/17/18 20:00 94.5 116 18 100/64 (76) 100 07/17/18 16:17 Room Air 07/17/18 16:00 94.5 112 20 109/61 (77) 100 07/17/18 16:00 112 07/17/18 12:00 115 07/17/18 12:00 Room Air 07/17/18 11:52 98.0 110 20 104/61 (75) 100 07/17/18 08:40 115 108/65 07/17/18 08:00 97.0 115 20 108/70 (83) 100 07/17/18 08:00 116 07/17/18 08:00 Room Air Intake and Output 07/17/18 07/18/18 18:59 06:59 Intake Total 300 ml 1072.5 ml Balance 300 ml 1072.5 ml Intake Oral 300 ml 50 ml IV Total 522.5 ml Blood Product 500 ml # Bowel Movements 1 General Appearance: cachetic - poorly responsive AA male HEENT: normocephalic, atraumatic, anicteric, other - O2 via NC Respiratory/Chest: decreased breath sounds, rhonchi - few scattered rhonchi Cardiovascular: tachycardia - ST on tele Abdomen: normal bowel sounds, soft, non tender Genitourinary: other - scrotal edema Extremities: other - trace edema BLE Neurologic/Psychiatric: no motor/sensory deficits, abnormal gait, other - easily arousable, poorly responsive, somnolent , no gross focal Microbiology Date/Time Source Procedure Growth Status 07/17/18 13:15 Sputum Induced Gram Stain - Final Resulted 07/17/18 13:15 Sputum Induced Sputum Culture Pending Resulted Laboratory Tests 07/17/18 14:45: White Blood Count 15.6H, Red Blood Count 2.33L, Hemoglobin 6.6*L, Hematocrit 19.7L, Mean Corpuscular Volume 85, Mean Corpuscular Hemoglobin 28.4, Mean Corpuscular Hemoglobin Concent 33.6, Red Cell Distribution Width 18.5H, Platelet Count 12#L, Mean Platelet Volume 8.2, Neutrophils (%) (Auto) , Lymphocytes (%) (Auto) , Monocytes (%) (Auto) , Eosinophils (%) (Auto) , Basophils (%) (Auto) , Differential Total Cells Counted 100, Neutrophils % ( Manual) 78H, Lymphocytes % (Manual) 9L, Monocytes % (Manual) 3, Eosinophils % ( Manual) 2, Basophils % (Manual) 0, Band Neutrophils 8, Nucleated Red Blood Cells 7, Platelet Estimate DecreasedL, Platelet Morphology Normal, Polychromasia 1+, Hypochromasia 2+, Anisocytosis 1+, Sodium Level 131L, Potassium Level 4.3, Chloride Level 104, Carbon Dioxide Level 15L, Anion Gap 12 , Blood Urea Nitrogen 74H, Creatinine 3.1H, Estimat Glomerular Filtration Rate 27.5, Glucose Level 90, Calcium Level 6.2L 07/18/18 05:00: White Blood Count 15.6H, Red Blood Count 2.43L, Hemoglobin 6.9*L, Hematocrit 20.4L, Mean Corpuscular Volume 84, Mean Corpuscular Hemoglobin 28.6, Mean Corpuscular Hemoglobin Concent 34.1, Red Cell Distribution Width 16.8H, Platelet Count 13L, Mean Platelet Volume 7.6, Neutrophils (%) (Auto) , Lymphocytes (%) (Auto) , Monocytes (%) (Auto) , Eosinophils (%) (Auto) , Basophils (%) (Auto) , Neutrophils % (Manual) [Pending], Lymphocytes % (Manual) [Pending], Platelet Estimate [Pending], Platelet Morphology [Pending], Sodium Level 133L, Potassium Level 4.5, Chloride Level 105, Carbon Dioxide Level 13L, Anion Gap 15, Blood Urea Nitrogen 76H, Creatinine 3.3H, Estimat Glomerular Filtration Rate 25.6, Glucose Level 92, Calcium Level 6.1L, Erythrocyte Sedimentation Rate 86H, Phosphorus Level 7.8H, Magnesium Level 1.6L, Total Bilirubin 2.0H, Direct Bilirubin 1.3H, Aspartate Amino Transf (AST/SGOT) 68H, Alanine Aminotransferase (ALT/SGPT) 22, Alkaline Phosphatase 92, C-Reactive Protein, Quantitative 22.1H, Total Protein 4.1L, Albumin 0.8L, Globulin 3.3, Albumin/Globulin Ratio 0.2L Current Medications Medications (Trade) Dose Ordered Sig/Yessica Route PRN Reason Start Time Stop Time Status Last Admin Dose Admin Acetaminophen (Tylenol) 650 mg Q4H PRN ORAL fever 07/13/18 13:45 08/11/18 21:44 07/16/18 17:19 Acetaminophen/ Hydrocodone Bitart ([place] 5/325) 1 tab Q6H PRN ORAL Moderate Pain (Pain Scale 4-6) 07/16/18 20:45 07/23/18 20:44 07/17/18 22:30 Atovaquone (Mepron Susp) 1,500 mg DAILY ORAL 07/17/18 12:00 08/16/18 11:59 07/17/18 12:20 Azithromycin (Zithromax) 1,200 mg ONCE A WEEK ORAL 07/16/18 09:00 07/23/18 08:59 07/16/18 10:02 Chlorhexidine Gluconate (Felipa-Hex 2%) 1 applic DAILY@2000 TOPIC 07/16/18 20:00 08/15/18 19:59 07/17/18 20:11 Dextrose (Dextrose 50%) 25 ml Q30M PRN IV Hypoglycemia 07/13/18 10:15 08/11/18 21:44 Dextrose (Dextrose 50%) 50 ml Q30M PRN IV Hypoglycemia 07/13/18 10:15 08/11/18 21:44 Dextrose/Sodium Chloride 1,000 ml @ 50 mls/hr Q20H IV 07/16/18 11:00 08/15/18 10:59 07/18/18 01:45 Diphenhydramine HCl (Benadryl) 25 mg Q6H PRN ORAL Itching/Pruritis 07/13/18 15:45 08/11/18 21:44 07/15/18 15:08 Dronabinol (Marinol) 5 mg BID ORAL 07/17/18 18:00 08/16/18 17:59 07/17/18 17:17 Metoprolol Tartrate (Lopressor) 25 mg BID ORAL 07/13/18 18:00 08/12/18 07:59 07/16/18 08:54 Metronidazole 100 ml @ 100 mls/hr Q8H IVPB 07/16/18 04:00 07/23/18 03:59 07/18/18 04:08 Mirtazapine (Remeron) 15 mg BEDTIME ORAL 07/13/18 21:00 08/12/18 20:59 07/17/18 21:29 Morphine Sulfate (Morphine Sulfate) 2 mg Q4H PRN IVP Moderate Pain (Pain Scale 4-6) 07/16/18 17:45 07/19/18 21:44 07/17/18 12:17 Morphine Sulfate (Morphine Sulfate) 4 mg Q4H PRN IVP Severe Pain (Pain Scale 7-10) 07/16/18 17:45 07/23/18 17:44 Nitroglycerin (Ntg) 0.4 mg Q5M X 3 DOSES PRN SL Prn Chest Pain 07/13/18 10:00 08/11/18 21:44 Ondansetron HCl (Zofran) 4 mg Q6H PRN IVP Nausea & Vomiting 07/13/18 15:45 08/11/18 21:44 07/17/18 22:30 Patient Own Medication (Patient's Own Med) 1 ea DAILY ORAL 07/14/18 09:00 08/13/18 08:59 07/17/18 08:40 Patient Own Medication (Patient's Own Med) 1 ea DAILY ORAL 07/14/18 09:00 08/13/18 08:59 07/17/18 08:40 Temazepam (Restoril) 15 mg HSPRN PRN ORAL Insomnia 07/13/18 21:45 07/19/18 21:44 Tigecycline 50 mg/ Sodium Chloride 110 ml @ 220 mls/hr EVERY 12 HOURS IVPB 07/17/18 21:00 07/24/18 20:59 07/17/18 21:28 Vancomycin HCl (Firvanq) 125 mg FOUR TIMES A DAY ORAL 07/14/18 13:00 07/21/18 12:59 07/17/18 21:29 Gerri Almeida NP Jul 18, 2018 07:56
[2018-07-18 08:00] VITALS: BP 89/57
[2018-07-18] MEDS: Dronabinol 2.5mg Cap ORAL SCH ×2 (08:48→17:09)
[2018-07-18] MEDS: Atovaquone 750mg/5ml Susp ORAL SCH (08:49)
[2018-07-18] MEDS: Vancomycin oral 125mg/2.5ml ORAL SCH ×4 (08:52→21:20)
[2018-07-18] MEDS: Tigecycline 50 MG in NS 110 ML IVPB SCH ×2 (08:52→21:14)
[2018-07-18] MEDS: Metoprolol 25mg tab ORAL SCH ×3 (08:53→17:15)
[2018-07-18] MEDS: TRUVADA ORAL SCH (09:38)
[2018-07-18] MEDS: DOLUTEGRAVIR 50 MG ORAL SCH (09:38)
[2018-07-18] MEDS ORDERED: D5NS 1000ml IV ONE ×2 (09:50→10:02)
[2018-07-18] MEDS ORDERED: Tubing IV Secondary IV ONE (09:50)
[2018-07-18] MEDS ORDERED: NS 275ml ONE ×2 (09:50→10:02)
[2018-07-18] MEDS ORDERED: Tubing Blood Filter IV ONE ×2 (09:50→10:02)
--- NOTE | 2018-07-18 10:30 | NUR ---
NURSE NOTES: patient asked for tylenol for pain and refused to take it after scanning. will continue to monitor.
--- NOTE | 2018-07-18 11:53 | NUR ---
NURSE NOTES: blood transfusion started. vitals signs taken and recorded.patient is stable, not in distress. will keep on monitoring.
[2018-07-18 12:00] VITALS: BP 97/60
--- NOTE | 2018-07-18 13:56 | Internal Med Progress Note ---
Subjective Date of Service: Jul 18, 2018 Physician Name Adam Padron Attending Physician Alberto Gtz MD Current Medications Medications (Trade) Dose Ordered Sig/Yessica Route PRN Reason Start Time Stop Time Status Last Admin Dose Admin Acetaminophen (Tylenol) 650 mg Q4H PRN ORAL fever 07/13/18 13:45 08/11/18 21:44 07/16/18 17:19 Acetaminophen/ Hydrocodone Bitart ([place] 5/325) 1 tab Q6H PRN ORAL Moderate Pain (Pain Scale 4-6) 07/16/18 20:45 07/23/18 20:44 07/17/18 22:30 Atovaquone (Mepron Susp) 1,500 mg DAILY ORAL 07/17/18 12:00 08/16/18 11:59 07/18/18 08:49 Azithromycin (Zithromax) 1,200 mg ONCE A WEEK ORAL 07/16/18 09:00 07/23/18 08:59 07/16/18 10:02 Chlorhexidine Gluconate (Felipa-Hex 2%) 1 applic DAILY@2000 TOPIC 07/16/18 20:00 08/15/18 19:59 07/17/18 20:11 Dextrose (Dextrose 50%) 25 ml Q30M PRN IV Hypoglycemia 07/13/18 10:15 08/11/18 21:44 Dextrose (Dextrose 50%) 50 ml Q30M PRN IV Hypoglycemia 07/13/18 10:15 08/11/18 21:44 Dextrose/Sodium Chloride 1,000 ml @ 50 mls/hr Q20H IV 07/16/18 11:00 08/15/18 10:59 07/18/18 01:45 Diphenhydramine HCl (Benadryl) 25 mg Q6H PRN ORAL Itching/Pruritis 07/13/18 15:45 08/11/18 21:44 07/15/18 15:08 Dronabinol (Marinol) 5 mg BID ORAL 07/17/18 18:00 08/16/18 17:59 07/18/18 08:48 Metoprolol Tartrate (Lopressor) 25 mg BID ORAL 07/13/18 18:00 08/12/18 07:59 07/16/18 08:54 Metronidazole 100 ml @ 100 mls/hr Q8H IVPB 07/16/18 04:00 6/6/19 03:59 07/18/18 13:10 Mirtazapine (Remeron) 15 mg BEDTIME ORAL 07/13/18 21:00 08/12/18 20:59 07/17/18 21:29 Morphine Sulfate (Morphine Sulfate) 2 mg Q4H PRN IVP Moderate Pain (Pain Scale 4-6) 07/16/18 17:45 07/19/18 21:44 07/17/18 12:17 Morphine Sulfate (Morphine Sulfate) 4 mg Q4H PRN IVP Severe Pain (Pain Scale 7-10) 07/16/18 17:45 07/23/18 17:44 Nitroglycerin (Ntg) 0.4 mg Q5M X 3 DOSES PRN SL Prn Chest Pain 07/13/18 10:00 08/11/18 21:44 Ondansetron HCl (Zofran) 4 mg Q6H PRN IVP Nausea & Vomiting 07/13/18 15:45 08/11/18 21:44 07/17/18 22:30 Patient Own Medication (Patient's Own Med) 1 ea DAILY ORAL 07/14/18 09:00 08/13/18 08:59 07/18/18 09:38 Patient Own Medication (Patient's Own Med) 1 ea DAILY ORAL 07/14/18 09:00 08/13/18 08:59 07/18/18 09:38 Temazepam (Restoril) 15 mg HSPRN PRN ORAL Insomnia 07/13/18 21:45 07/19/18 21:44 Tigecycline 50 mg/ Sodium Chloride 110 ml @ 220 mls/hr EVERY 12 HOURS IVPB 07/17/18 21:00 07/24/18 20:59 07/18/18 08:52 Vancomycin HCl (Firvanq) 125 mg FOUR TIMES A DAY ORAL 07/14/18 13:00 07/21/18 12:59 07/18/18 13:11 Allergies: Coded Allergies: No Known Allergies (Unverified , 10/21/17) Constitutional: Reports: no symptoms HEENT: Reports: no symptoms Cardiovascular: Reports: no symptoms Respiratory: Reports: no symptoms Gastrointestinal/Abdominal: Reports: no symptoms Genitourinary: Reports: no symptoms Neurologic/Psychiatric: Reports: no symptoms Subjective 37 YO M with HIV admitted with abdominal pain, nausea and vomiting. Now clostridium difficile diarrhea. Cover for Int Med-Dr Gtz. SOFIA Objective Last Vital Signs Date Time Temp Pulse Resp B/P (MAP) Pulse Ox O2 Delivery O2 Flow Rate FiO2 07/18/18 12:00 96.4 98 20 97/60 (72) 98 07/18/18 12:00 Room Air 07/18/18 04:00 2.0 07/17/18 07:41 28 Laboratory Tests Test 07/17/18 14:45 07/18/18 05:00 White Blood Count 15.6 K/UL (4.8-10.8) H 15.6 K/UL (4.8-10.8) H Red Blood Count 2.33 M/UL (4.70-6.10) L 2.43 M/UL (4.70-6.10) L Hemoglobin 6.6 G/DL (14.2-18.0) *L 6.9 G/DL (14.2-18.0) *L Hematocrit 19.7 % (42.0-52.0) L 20.4 % (42.0-52.0) L Mean Corpuscular Volume 85 FL (80-99) 84 FL (80-99) Mean Corpuscular Hemoglobin 28.4 PG (27.0-31.0) 28.6 PG (27.0-31.0) Mean Corpuscular Hemoglobin Concent 33.6 G/DL (32.0-36.0) 34.1 G/DL (32.0-36.0) Red Cell Distribution Width 18.5 % (11.6-14.8) H 16.8 % (11.6-14.8) H Platelet Count 12 K/UL (150-450) #L 13 K/UL (150-450) L Mean Platelet Volume 8.2 FL (6.5-10.1) 7.6 FL (6.5-10.1) Neutrophils (%) (Auto) % (45.0-75.0) % (45.0-75.0) Lymphocytes (%) (Auto) % (20.0-45.0) % (20.0-45.0) Monocytes (%) (Auto) % (1.0-10.0) % (1.0-10.0) Eosinophils (%) (Auto) % (0.0-3.0) % (0.0-3.0) Basophils (%) (Auto) % (0.0-2.0) % (0.0-2.0) Differential Total Cells Counted 100 100 Neutrophils % (Manual) 78 % (45-75) H 87 % (45-75) H Lymphocytes % (Manual) 9 % (20-45) L 8 % (20-45) L Monocytes % (Manual) 3 % (1-10) 3 % (1-10) Eosinophils % (Manual) 2 % (0-3) 2 % (0-3) Basophils % (Manual) 0 % (0-2) 0 % (0-2) Band Neutrophils 8 % (0-8) 0 % (0-8) Nucleated Red Blood Cells 7 /100 WBC 7 /100 WBC Platelet Estimate Decreased L Decreased L Platelet Morphology Normal Normal Polychromasia 1+ 2+ Hypochromasia 2+ 1+ Anisocytosis 1+ 1+ Sodium Level 131 MMOL/L (136-145) L 133 MMOL/L (136-145) L Potassium Level 4.3 MMOL/L (3.5-5.1) 4.5 MMOL/L (3.5-5.1) Chloride Level 104 MMOL/L (98-107) 105 MMOL/L (98-107) Carbon Dioxide Level 15 MMOL/L (21-32) L 13 MMOL/L (21-32) L Anion Gap 12 mmol/L (5-15) 15 mmol/L (5-15) Blood Urea Nitrogen 74 mg/dL (7-18) H 76 mg/dL (7-18) H Creatinine 3.1 MG/DL (0.55-1.30) H 3.3 MG/DL (0.55-1.30) H Estimat Glomerular Filtration Rate 27.5 mL/min (>60) 25.6 mL/min (>60) Glucose Level 90 MG/DL (74-106) 92 MG/DL (74-106) Calcium Level 6.2 MG/DL (8.5-10.1) L 6.1 MG/DL (8.5-10.1) L Erythrocyte Sedimentation Rate 86 MM/HR (0-15) H Phosphorus Level 7.8 MG/DL (2.5-4.9) H Magnesium Level 1.6 MG/DL (1.8-2.4) L Total Bilirubin 2.0 MG/DL (0.2-1.0) H Direct Bilirubin 1.3 MG/DL (0.0-0.3) H Aspartate Amino Transf (AST/SGOT) 68 U/L (15-37) H Alanine Aminotransferase (ALT/SGPT) 22 U/L (12-78) Alkaline Phosphatase 92 U/L (46-116) C-Reactive Protein, Quantitative 22.1 mg/dL (0.00-0.90) H Total Protein 4.1 G/DL (6.4-8.2) L Albumin 0.8 G/DL (3.4-5.0) L Globulin 3.3 g/dL Albumin/Globulin Ratio 0.2 (1.0-2.7) L Microbiology Date/Time Source Procedure Growth Status 07/17/18 13:15 Sputum Induced Gram Stain - Final Resulted 07/17/18 13:15 Sputum Induced Sputum Culture Pending Resulted Intake and Output 07/17/18 07/18/18 19:00 07:00 Intake Total 300 ml 1072.5 ml Balance 300 ml 1072.5 ml Intake Oral 300 ml 50 ml IV Total 0 ml 522.5 ml Blood Product 500 ml # Bowel Movements 1 Objective PHYSICAL EXAMINATION: GENERAL: The patient is thin-appearing male, in no apparent distress. HEENT: Eyes, pupils equal and responsive to light and accommodation. Extraocular movements are intact. NECK: Supple without lymphadenopathy. CHEST: Lungs are clear to auscultation bilaterally without wheezes or rales. CARDIOVASCULAR: Tachycardic, regular rhythm. S1 and S2 are normal without murmurs, rubs, or gallops. ABDOMEN: Soft, nontender, nondistended. Positive bowel sounds. No evidence of hepatosplenomegaly. Currently, no rebound or guarding noted. RECTAL: Refused. GENITALIA: Refused. EXTREMITIES: Negative for clubbing, cyanosis, or edema. NEUROLOGIC: Cranial nerves II through XII are grossly intact without focal deficits. Motor strength is 5/5 bilaterally intact. Deep tendon reflexes are 2+ plantar. Assessment/Plan Assessment/Plan ASSESSMENT: This is a 37-year-old male with: 1. Abdominal pain. 2. Nausea with vomiting. 3. Diarrhea. 4. Rectal bleeding. 5. Human immunodeficiency virus. 6. Kaposi's sarcoma. 7. Castleman's disease. 8. Hepatitis B. 9. Clostridium difficile diarrhea 10. Severe anemia-blood loss 11. Thrombocytopenia TREATMENT: 1. Abdominal pain/nausea/vomiting/rectal bleeding. The patient has history of Clostridium difficile, which was resistant to Flagyl. An Infectious Diseases consultation has been obtained with Dr. Mendoza. A Gastroenterology consultation has been obtained with Dr. Michael Grande. Refused GI procedures-see GI note. NON COMPLIANT WITH MEDICAL TREATMENT 2. Human immunodeficiency virus. Continue HAART as above. 3. Kaposi's sarcoma. The patient is status post chemotherapy - see onc note 4. Castleman's disease. Refused biopsy-see heme/onc note. NON COMPLIANT WITH MEDICAL TREATMENT 5. Hepatitis B. 6. Continue oral vancomycin; add flagyl per GI 7. S/P transfusion 5 unit PRBC total; current hgb=6.9 8. V/Q scan 07/15/18. 9. S/P Transfusion 3 units of platelets total; current plt=13,000 10. see Heme/onc consult Adam Padron MD Jul 18, 2018 13:56
--- NOTE | 2018-07-18 14:13 | Nephrology Progress Note ---
Assessment/Plan Problem List: (1) REENA (acute kidney injury) (2) Sinus tachycardia (3) Electrolyte imbalance (4) HIV disease (5) Kaposi disease (6) Sepsis (7) Hepatitis B (8) Hepatitis C (9) Protein-calorie malnutrition, severe Assessment Acute renal failure Cr 1.2 up to 2 Acute worsening Anemia Hgb 8.5 to mid 6 severe hypoalbuminemia / Malnutrition Hypotensive / Tachycardia / Sepsis Plan gomez , REFUSING sofar ! Renal diet Phos binders consider steroids ??? defer to ID Avoid Nephrotoxics as possible ( Bactrim..... urine studies Keep BP over 100 syst monitor renal parameters saline infusion in view of low Urine Na and Low S Na per consultants poor prognosis dialysis if worsens ! Objective Objective Last 24 Hour Vital Signs Date Time Temp Pulse Resp B/P (MAP) Pulse Ox O2 Delivery O2 Flow Rate FiO2 07/18/18 12:00 96.4 98 20 97/60 (72) 98 07/18/18 12:00 Room Air 07/18/18 12:00 108 07/18/18 10:00 Room Air 07/18/18 08:53 110 82/57 07/18/18 08:00 97.0 113 22 89/57 (68) 100 07/18/18 08:00 Room Air 07/18/18 08:00 112 07/18/18 04:00 94.5 115 18 90/55 (67) 100 07/18/18 04:00 Nasal Cannula 2.0 07/18/18 03:59 119 07/18/18 00:07 110 07/18/18 00:00 Nasal Cannula 2.0 07/18/18 00:00 95.9 109 20 96/67 (77) 100 07/17/18 20:00 Nasal Cannula 2.0 07/17/18 20:00 114 07/17/18 20:00 94.5 116 18 100/64 (76) 100 07/17/18 16:17 Room Air 07/17/18 16:00 94.5 112 20 109/61 (77) 100 07/17/18 16:00 112 Intake and Output 07/17/18 07/18/18 19:00 07:00 Intake Total 300 ml 1072.5 ml Balance 300 ml 1072.5 ml Intake Oral 300 ml 50 ml IV Total 0 ml 522.5 ml Blood Product 500 ml # Bowel Movements 1 Laboratory Tests 07/17/18 14:45: White Blood Count 15.6H, Red Blood Count 2.33L, Hemoglobin 6.6*L, Hematocrit 19.7L, Mean Corpuscular Volume 85, Mean Corpuscular Hemoglobin 28.4, Mean Corpuscular Hemoglobin Concent 33.6, Red Cell Distribution Width 18.5H, Platelet Count 12#L, Mean Platelet Volume 8.2, Neutrophils (%) (Auto) , Lymphocytes (%) (Auto) , Monocytes (%) (Auto) , Eosinophils (%) (Auto) , Basophils (%) (Auto) , Differential Total Cells Counted 100, Neutrophils % ( Manual) 78H, Lymphocytes % (Manual) 9L, Monocytes % (Manual) 3, Eosinophils % ( Manual) 2, Basophils % (Manual) 0, Band Neutrophils 8, Nucleated Red Blood Cells 7, Platelet Estimate DecreasedL, Platelet Morphology Normal, Polychromasia 1+, Hypochromasia 2+, Anisocytosis 1+, Sodium Level 131L, Potassium Level 4.3, Chloride Level 104, Carbon Dioxide Level 15L, Anion Gap 12 , Blood Urea Nitrogen 74H, Creatinine 3.1H, Estimat Glomerular Filtration Rate 27.5, Glucose Level 90, Calcium Level 6.2L 07/18/18 05:00: White Blood Count 15.6H, Red Blood Count 2.43L, Hemoglobin 6.9*L, Hematocrit 20.4L, Mean Corpuscular Volume 84, Mean Corpuscular Hemoglobin 28.6, Mean Corpuscular Hemoglobin Concent 34.1, Red Cell Distribution Width 16.8H, Platelet Count 13L, Mean Platelet Volume 7.6, Neutrophils (%) (Auto) , Lymphocytes (%) (Auto) , Monocytes (%) (Auto) , Eosinophils (%) (Auto) , Basophils (%) (Auto) , Differential Total Cells Counted 100, Neutrophils % ( Manual) 87H, Lymphocytes % (Manual) 8L, Monocytes % (Manual) 3, Eosinophils % ( Manual) 2, Basophils % (Manual) 0, Band Neutrophils 0, Nucleated Red Blood Cells 7, Platelet Estimate DecreasedL, Platelet Morphology Normal, Polychromasia 2+, Hypochromasia 1+, Anisocytosis 1+, Sodium Level 133L, Potassium Level 4.5, Chloride Level 105, Carbon Dioxide Level 13L, Anion Gap 15 , Blood Urea Nitrogen 76H, Creatinine 3.3H, Estimat Glomerular Filtration Rate 25.6, Glucose Level 92, Calcium Level 6.1L, Erythrocyte Sedimentation Rate 86H, Phosphorus Level 7.8H, Magnesium Level 1.6L, Total Bilirubin 2.0H, Direct Bilirubin 1.3H, Aspartate Amino Transf (AST/SGOT) 68H, Alanine Aminotransferase (ALT/SGPT) 22, Alkaline Phosphatase 92, C-Reactive Protein, Quantitative 22.1H, Total Protein 4.1L, Albumin 0.8L, Globulin 3.3, Albumin/Globulin Ratio 0.2L Height (Feet): 6 Height (Inches): 0.00 Weight (Pounds): 142 Adam Aguiar MD Jul 18, 2018 14:13
[2018-07-18 16:00] VITALS: BP 121/68
--- NOTE | 2018-07-18 16:49 | NUR ---
NURSE NOTES: left a message to dr guerra regarding patients swollen scrotum. awaits callback and new order.
[2018-07-18] MEDS: Renvela 800mg Pkt ORAL SCH (17:12)
--- NOTE | 2018-07-18 17:31 | NUR ---
NURSE NOTES: Gerri DE LEÓN made aware of the patients swollen scrotum. Gerri ordered scrotal US. will take note and carry out.
--- NOTE | 2018-07-18 17:34 | NUR ---
NURSE NOTES: radiology called back for patients scrotal US, will be done tonight.will endorse accordingly.
--- NOTE | 2018-07-18 18:49 | NUR ---
HAND-OFF: Report given to tasha melchor.
--- NOTE | 2018-07-18 19:23 | NUR ---
HAND-OFF: Report given to simran melchor.
--- NOTE | 2018-07-18 19:23 | NUR ---
NURSE NOTES: Received patient from Aretha JOSHUA. Patient is awake and oriented x3. Patient is on room air tolerating well, showing no signs of distress. Nguyen catheter is patent and raining. Left Upper arm has a double lumen PICC line that is patent and asymptomatic. Patient is currently receiving an ultrasound of the scrotum due to swelling. Bed is locked, placed in lowest position, side rails up x3, call light within reach. Will continue to monitor.
[2018-07-18 20:00] VITALS: BP 91/58
--- NOTE | 2018-07-18 20:21 | Diagnostic Imaging Report ---
EXAM: US Scrotum CLINICAL HISTORY: SWELL TECHNIQUE: Real-time ultrasound of the scrotum with color Doppler and image documentation. COMPARISON: No relevant prior studies available. FINDINGS: Right testicle: 2.4 x 1.7 x 2.5 cm Unremarkable. No mass. No torsion. Small hydrocele. No evidence for varicocele Left testicle: 1.3 x 2.6 x 1.5 cm. Unremarkable. No mass. No torsion. Small hydrocele. No evidence for varicocele Epididymides: Unremarkable. Scrotum: Extensive scrotal edema IMPRESSION: Extensive scrotal edema. No evidence for abnormality left and right testes or epididymis. Small bilateral hydroceles.
[2018-07-18] MEDS: Dyna-Hex 2% Top Sol 2oz TOPIC SCH (21:18)
[2018-07-19] VITALS: BP 103/50
[2018-07-19 04:00] VITALS: BP 91/59
--- NOTE | 2018-07-19 04:15 | NUR ---
NURSE NOTES: PATIENT WAS BEING CLEANED AROUND THIS TIME WHEN IT WAS NOTICED THAT PATIENT HAD DARK MAROON RED LIQUID BLOOD IN STOOL. WE CHANGED AM LABS FROM ROUTINE TO STAT AND ORDERED ABG. PATIENTS MENTATION STATUS HAS BEEN LETHARGIC THROUGHOUT SHIFT, EARLIER PATIENTS BP SYSTOLICALLY WAS RANGING AROUND THE UPPER 80S AND MID 90S. HR IS [address] AFEBRILE. PATIENTS CURRENT BP IS 105/50. PATIENT HOWEVER STILL ABLE TO COMMUNICATE NEEDS. COLLECTED OB STOOL SAMPLE AND SENT IT TO LAB.
[2018-07-19 04:35] LABS: HEMATOCRIT 22.6 % (42.0-52.0); HEMOGLOBIN 7.8 G/DL (14.2-18.0); MEAN CORPUSCULAR VOLUME 86 FL (80-99); PLATELET COUNT 12 K/UL (150-450); RED BLOOD COUNT 2.62 M/UL (4.70-6.10); WHITE BLOOD COUNT 12.5 K/UL (4.8-10.8)
[2018-07-19 05:10] LABS: ANION GAP 12 mmol/L (5-15); BLOOD UREA NITROGEN 97 mg/dL (7-18); CALCIUM 6.2 MG/DL (8.5-10.1); CARBON DIOXIDE 15 MMOL/L (21-32); CHLORIDE 107 MMOL/L (98-107); CREATININE 3.6 MG/DL (0.55-1.30); POTASSIUM 4.8 MMOL/L (3.5-5.1); SODIUM 134 MMOL/L (136-145)
[2018-07-19 05:27] LABS: ALANINE AMINOTRANSFERASE 9 U/L (12-78); ALBUMIN/GLOBULIN RATIO 0.3 (1.0-2.7); ALKALINE PHOSPHATASE 152 U/L (46-116); ASPARTATE AMINO TRANSFERASE 48 U/L (15-37); BILIRUBIN,TOTAL 3.5 MG/DL (0.2-1.0); PHOSPHORUS 8.3 MG/DL (2.5-4.9)
[2018-07-19 05:42] LABS: BILIRUBIN,DIRECT 2.6 MG/DL (0.0-0.3)
--- NOTE | 2018-07-19 05:50 | NUR ---
NURSE NOTES: Dr. Grande made aware of patient bloody bowel movement, HGB level, and platelet levels.
--- NOTE | 2018-07-19 06:55 | NUR ---
NURSE NOTES: Patient refuses ABG to be drawn.
--- NOTE | 2018-07-19 07:00 | NUR ---
NURSE NOTES: received patient report and update from simran rn. patient is on bed awake. able to converse and answer question properly. noted extensive swelling on the scrotum. per report from equalizing saw operator nurse, patient had bm X 1 bloody stool, vofaviani aware.on FC draining. will continue plan of care.
--- NOTE | 2018-07-19 07:22 | NUR ---
HAND-OFF: Report given to Aretha JOSHUA. Nurse aware of patient's abnormal lab results and patient is stable.
--- NOTE | 2018-07-19 07:48 | General Progress Note ---
Assessment/Plan Assessment/Plan: (1) Dehydration (2) Electrolyte imbalance (3) Castleman disease (4) HIV disease (5) Anemia (6) C. difficile colitis (7) Nausea, vomiting, and diarrhea (8) Protein-calorie malnutrition, severe Plan refused GI procedures cdiff positive IV/PO hydration + electrolyte correction zofran prn monitor H&H, prn transfusions, on po vanco will and iv flagyl recommend dc other abx if ok with ID on marinol follow labs poor prognosis dc protonix Subjective ROS Limited/Unobtainable: No Allergies: Coded Allergies: No Known Allergies (Unverified , 10/21/17) Subjective diarrhea abd pain poor appetite Objective Last 24 Hour Vital Signs Date Time Temp Pulse Resp B/P (MAP) Pulse Ox O2 Delivery O2 Flow Rate FiO2 07/19/18 04:00 104 07/19/18 04:00 97.2 102 22 91/59 (70) 100 07/19/18 04:00 Nasal Cannula 2.0 07/19/18 00:00 97.8 109 20 103/50 (67) 100 07/19/18 00:00 Nasal Cannula 2.0 07/18/18 23:37 111 07/18/18 20:00 Nasal Cannula 2.0 07/18/18 20:00 97.6 105 20 91/58 (69) 99 07/18/18 19:23 111 07/18/18 17:15 103 97/53 07/18/18 16:00 102 07/18/18 16:00 Room Air 07/18/18 16:00 96.4 121 24 121/68 (85) 98 07/18/18 12:00 96.4 98 20 97/60 (72) 98 07/18/18 12:00 Room Air 07/18/18 12:00 108 07/18/18 10:00 Room Air 07/18/18 08:53 110 82/57 07/18/18 08:00 97.0 113 22 89/57 (68) 100 07/18/18 08:00 Room Air 07/18/18 08:00 112 Intake and Output 07/18/18 07/19/18 18:59 06:59 Intake Total 2756 ml 700 ml Output Total 140 ml 200 ml Balance 2616 ml 500 ml Intake Oral 200 ml 50 ml IV Total 1869 ml 650 ml Blood Product 687 ml Output Urine Total 140 ml 200 ml # Voids 1 1 # Bowel Movements 2 2 Laboratory Tests 07/18/18 15:30: Urine Eosinophils None seen, Urine Random Sodium 44 07/19/18 04:10: White Blood Count 12.5H, Red Blood Count 2.62L, Hemoglobin 7.8L, Hematocrit 22.6L, Mean Corpuscular Volume 86, Mean Corpuscular Hemoglobin 29.7, Mean Corpuscular Hemoglobin Concent 34.4, Red Cell Distribution Width 18.0H, Platelet Count 12L, Mean Platelet Volume 5.9L, Neutrophils (%) (Auto) , Lymphocytes (%) (Auto) , Monocytes (%) (Auto) , Eosinophils (%) (Auto) , Basophils (%) (Auto) , Neutrophils % (Manual) [Pending], Lymphocytes % (Manual) [Pending], Platelet Estimate [Pending], Platelet Morphology [Pending], Prothrombin Time 20.4H, Prothromb Time International Ratio 2.0H, Activated Partial Thromboplast Time 99H, Sodium Level 134L, Potassium Level 4.8, Chloride Level 107, Carbon Dioxide Level 15L, Anion Gap 12, Blood Urea Nitrogen 97H, Creatinine 3.6H, Estimat Glomerular Filtration Rate 23.1, Glucose Level 77, Lactic Acid Level 2.30H, Uric Acid 9.4H, Calcium Level 6.2L, Phosphorus Level 8.3H, Magnesium Level 1.8, Total Bilirubin 3.5H, Direct Bilirubin 2.6H, Aspartate Amino Transf (AST/SGOT) 48H, Alanine Aminotransferase (ALT/SGPT) 9L, Alkaline Phosphatase 152H, C-Reactive Protein, Quantitative 23.4H, Pro-B-Type Natriuretic Peptide 58245G, Total Protein 4.1L, Albumin 1.0L, Globulin 3.1, Albumin/Globulin Ratio 0.3L 07/19/18 04:50: Stool Occult Blood Positive Height (Feet): 6 Height (Inches): 0.00 Weight (Pounds): 142 General Appearance: lethargic EENT: normal ENT inspection Neck: supple Cardiovascular: normal rate Respiratory/Chest: decreased breath sounds Abdomen: non tender, hypoactive bowel sounds Extremities: non-tender Michael Grande MD Jul 19, 2018 07:48
[2018-07-19 08:00] VITALS: BP 108/62
[2018-07-19] MEDS: Renvela 800mg Pkt ORAL SCH ×3 (08:28→17:24)
[2018-07-19] MEDS: Atovaquone 750mg/5ml Susp ORAL SCH (08:29)
[2018-07-19] MEDS: Metoprolol 25mg tab ORAL SCH ×2 (08:29→17:15)
[2018-07-19] MEDS: Dronabinol 2.5mg Cap ORAL SCH ×2 (08:29→17:25)
[2018-07-19] MEDS: TRUVADA ORAL SCH (08:32)
[2018-07-19] MEDS: DOLUTEGRAVIR 50 MG ORAL SCH (08:32)
[2018-07-19] MEDS: Tigecycline 50 MG in NS 110 ML IVPB SCH ×2 (08:32→21:30)
--- NOTE | 2018-07-19 08:33 | Pulmonology Progress Note ---
Assessment/Plan Assessment/Plan ASSESSMENT Severe sepsis secondary to C dif and pneumonia Recurrent C. difficile infection HIV/AIDS (CD4-86) Sinus tachycardia, secondary to sepsis Acute anemia of chronic disease Probably GI bleeding Hepatitis C Chronic hepatitis B Castleman disease Severe protein calorie malnutrition Acute kidney injury Severe thrombocytopenia, requiring PLT transfusion History of DVT E/lyte imbalance Pancytopenia Anemia of folate deficiency Moderate pulmonary hypertension Coagulopathy PLAN OF CARE SOFIA abx as per ID recs Flagyl, p.o. Vanco , Atovaquone ( for PCP) and Azithromycin (for MAC )prophylaxis off Bactrim and Zosyn secondary to thrombocytopenia s/p PLT and PRBC transfusion , s/p bolus 500 cc NS , s/p albumin bolus, BP remains low but stable continue with gentle IVF afterwards prior ECHO with EF 50%, mild cardiomyopathy , trend pro BNP stool OB+ x2 declined GI procedure stool cx negative blood cx negative GI follows CD4 86 , on ART ; questionable compliance with ART and prior p.o. Vanco ( when discharged) VQ scan with low probability of PE ST likely due to severe sepsis , no evidence of SVT or A. fib, possibly also dehydration on BB O2 PRN titrate to keep pulse ox above 92%, HHN prn refused previous excisional lymph node biopsy monitor renal parameters, lytes, worsening renal failure and bili f/up with nephro recs F/c placed 07/18, monitor I/O venous duplex BLE negative flow cytometry with abnormal B-cell population worsening coagulopathy, will get vit K scrotal edema-> scrotal US with extensive edema, no abnormalitites noted, --> elevate scrotum, poor prognosis consider code status change? case discussed and evaluated by supervising physician Subjective Allergies: Coded Allergies: No Known Allergies (Unverified , 10/21/17) Subjective leukocytosis trending down, no fevers, Hgb better after transfusion, PLT still 12, despite multiple transfusion worsening renal failure creat up to 3.6 , worsening bili still high inflam. markers, lactic acidosis Objective Last 24 Hour Vital Signs Date Time Temp Pulse Resp B/P (MAP) Pulse Ox O2 Delivery O2 Flow Rate FiO2 07/19/18 07:57 99 Nasal Cannula 2.0 28 07/19/18 04:00 104 07/19/18 04:00 97.2 102 22 91/59 (70) 100 07/19/18 04:00 Nasal Cannula 2.0 07/19/18 00:00 97.8 109 20 103/50 (67) 100 07/19/18 00:00 Nasal Cannula 2.0 07/18/18 23:37 111 07/18/18 20:00 Nasal Cannula 2.0 07/18/18 20:00 97.6 105 20 91/58 (69) 99 07/18/18 19:23 111 07/18/18 17:15 103 97/53 07/18/18 16:00 102 07/18/18 16:00 Room Air 07/18/18 16:00 96.4 121 24 121/68 (85) 98 07/18/18 12:00 96.4 98 20 97/60 (72) 98 07/18/18 12:00 Room Air 07/18/18 12:00 108 07/18/18 10:00 Room Air 07/18/18 08:53 110 82/57 Intake and Output 07/18/18 07/19/18 18:59 06:59 Intake Total 2756 ml 700 ml Output Total 140 ml 200 ml Balance 2616 ml 500 ml Intake Oral 200 ml 50 ml IV Total 1869 ml 650 ml Blood Product 687 ml Output Urine Total 140 ml 200 ml # Voids 1 1 # Bowel Movements 2 2 Objective General Appearance: cachetic, poorly responsive AA male HEENT: normocephalic, atraumatic, anicteric, other - O2 via NC Respiratory/Chest: decreased breath sounds, few scattered rhonchi Cardiovascular: tachycardia - ST on tele, RUE PICC intact Abdomen: normal bowel sounds, soft, non tender Genitourinary: scrotal edema Extremities: +1 edema BLE Neurologic/Psychiatric: no motor/sensory deficits, abnormal gait, easily arousable, poorly responsive, somnolent , no gross focal Microbiology Date/Time Source Procedure Growth Status 07/17/18 13:15 Sputum Induced Gram Stain - Final Complete 07/17/18 13:15 Sputum Culture - Final Liz Albicans Complete Laboratory Tests 07/18/18 15:30: Urine Eosinophils None seen, Urine Random Sodium 44 07/19/18 04:10: White Blood Count 12.5H, Red Blood Count 2.62L, Hemoglobin 7.8L, Hematocrit 22.6L, Mean Corpuscular Volume 86, Mean Corpuscular Hemoglobin 29.7, Mean Corpuscular Hemoglobin Concent 34.4, Red Cell Distribution Width 18.0H, Platelet Count 12L, Mean Platelet Volume 5.9L, Neutrophils (%) (Auto) , Lymphocytes (%) (Auto) , Monocytes (%) (Auto) , Eosinophils (%) (Auto) , Basophils (%) (Auto) , Differential Total Cells Counted 100, Neutrophils % ( Manual) 89H, Lymphocytes % (Manual) 8L, Monocytes % (Manual) 2, Eosinophils % ( Manual) 1, Basophils % (Manual) 0, Band Neutrophils 0, Platelet Estimate DecreasedL, Platelet Morphology Normal, Polychromasia 1+, Anisocytosis 1+, Prothrombin Time 20.4H, Prothromb Time International Ratio 2.0H, Activated Partial Thromboplast Time 99H, Sodium Level 134L, Potassium Level 4.8, Chloride Level 107, Carbon Dioxide Level 15L, Anion Gap 12, Blood Urea Nitrogen 97H, Creatinine 3.6H, Estimat Glomerular Filtration Rate 23.1, Glucose Level 77, Lactic Acid Level 2.30H, Uric Acid 9.4H, Calcium Level 6.2L, Phosphorus Level 8.3H, Magnesium Level 1.8, Total Bilirubin 3.5H, Direct Bilirubin 2.6H, Aspartate Amino Transf (AST/SGOT) 48H, Alanine Aminotransferase (ALT/SGPT) 9L, Alkaline Phosphatase 152H, C-Reactive Protein, Quantitative 23.4H, Pro-B-Type Natriuretic Peptide 38170Q, Total Protein 4.1L, Albumin 1.0L, Globulin 3.1, Albumin/Globulin Ratio 0.3L 07/19/18 04:50: Stool Occult Blood Positive Current Medications Medications (Trade) Dose Ordered Sig/Yessica Route PRN Reason Start Time Stop Time Status Last Admin Dose Admin Acetaminophen (Tylenol) 650 mg Q4H PRN ORAL fever 07/13/18 13:45 08/11/18 21:44 07/18/18 17:10 Acetaminophen/ Hydrocodone Bitart ([place] 5/325) 1 tab Q6H PRN ORAL Moderate Pain (Pain Scale 4-6) 07/16/18 20:45 07/23/18 20:44 07/17/18 22:30 Atovaquone (Mepron Susp) 1,500 mg DAILY ORAL 07/17/18 12:00 08/16/18 11:59 07/18/18 08:49 Azithromycin (Zithromax) 1,200 mg ONCE A WEEK ORAL 07/16/18 09:00 07/23/18 08:59 07/16/18 10:02 Chlorhexidine Gluconate (Felipa-Hex 2%) 1 applic DAILY@2000 TOPIC 07/16/18 20:00 08/15/18 19:59 07/18/18 21:18 Dextrose (Dextrose 50%) 25 ml Q30M PRN IV Hypoglycemia 07/13/18 10:15 08/11/18 21:44 Dextrose (Dextrose 50%) 50 ml Q30M PRN IV Hypoglycemia 07/13/18 10:15 08/11/18 21:44 Dextrose/Sodium Chloride 1,000 ml @ 50 mls/hr Q20H IV 07/16/18 11:00 08/15/18 10:59 07/18/18 23:12 Diphenhydramine HCl (Benadryl) 25 mg Q6H PRN ORAL Itching/Pruritis 07/13/18 15:45 08/11/18 21:44 07/15/18 15:08 Dronabinol (Marinol) 5 mg BID ORAL 07/17/18 18:00 08/16/18 17:59 07/18/18 17:09 Metoprolol Tartrate (Lopressor) 25 mg BID ORAL 07/13/18 18:00 08/12/18 07:59 07/16/18 08:54 Metronidazole 100 ml @ 100 mls/hr Q8H IVPB 07/16/18 04:00 07/23/18 03:59 07/19/18 05:09 Mirtazapine (Remeron) 15 mg BEDTIME ORAL 07/13/18 21:00 08/12/18 20:59 07/18/18 21:13 Morphine Sulfate (Morphine Sulfate) 2 mg Q4H PRN IVP Moderate Pain (Pain Scale 4-6) 07/16/18 17:45 07/19/18 21:44 07/17/18 12:17 Morphine Sulfate (Morphine Sulfate) 4 mg Q4H PRN IVP Severe Pain (Pain Scale 7-10) 07/16/18 17:45 07/23/18 17:44 Nitroglycerin (Ntg) 0.4 mg Q5M X 3 DOSES PRN SL Prn Chest Pain 07/13/18 10:00 08/11/18 21:44 Ondansetron HCl (Zofran) 4 mg Q6H PRN IVP Nausea & Vomiting 07/13/18 15:45 08/11/18 21:44 07/17/18 22:30 Patient Own Medication (Patient's Own Med) 1 ea DAILY ORAL 07/14/18 09:00 08/13/18 08:59 07/18/18 09:38 Patient Own Medication (Patient's Own Med) 1 ea DAILY ORAL 07/14/18 09:00 08/13/18 08:59 07/18/18 09:38 Sevelamer Carbonate (Renvela) 1,600 mg THREE TIMES A DAY ORAL 07/18/18 18:00 08/17/18 17:59 07/18/18 17:12 Temazepam (Restoril) 15 mg HSPRN PRN ORAL Insomnia 07/13/18 21:45 07/19/18 21:44 Tigecycline 50 mg/ Sodium Chloride 110 ml @ 220 mls/hr EVERY 12 HOURS IVPB 07/17/18 21:00 07/24/18 20:59 07/18/18 21:14 Vancomycin HCl (Firvanq) 125 mg FOUR TIMES A DAY ORAL 07/14/18 13:00 07/21/18 12:59 07/18/18 21:20 Gerri Almeida NP Jul 19, 2018 08:33
[2018-07-19] MEDS: Vancomycin oral 125mg/2.5ml ORAL SCH ×5 (08:35→21:34)
--- NOTE | 2018-07-19 08:57 | Cardiac Electrophysiology PN ---
Assessment/Plan Assessment/Plan 1. Sinus tachycardia with heart rate up to 170s. This is secondary to underlying sepsis. Ruled out for SD. His last echocardiogram showed ejection fraction of 75% but now 45-50%. No evidence of atrial fibrillation or supraventricular tachycardia. Continue Lopressor 25 bid VQ low probability for PE. HR 100s now 2. History of hypertension. On Lopressor 25 bid 3. HIV. On Truvada. 4. History of Kaposi's sarcoma. 5. History of pancreatitis, hepatitis B, and hepatitis C. 6. Severe anemia, status post transfusion. 7. Seevere thrombocytopenia Plt 6 k that improved to 40K 8. Moderate Pulmonary HTN. VQ scan low probability for PE. DW RN Subjective Subjective Sinus tachycardia is much better. HR 101 now Objective Last 24 Hour Vital Signs Date Time Temp Pulse Resp B/P (MAP) Pulse Ox O2 Delivery O2 Flow Rate FiO2 07/19/18 07:57 99 Nasal Cannula 2.0 28 07/19/18 04:00 104 07/19/18 04:00 97.2 102 22 91/59 (70) 100 07/19/18 04:00 Nasal Cannula 2.0 07/19/18 00:00 97.8 109 20 103/50 (67) 100 07/19/18 00:00 Nasal Cannula 2.0 07/18/18 23:37 111 07/18/18 20:00 Nasal Cannula 2.0 07/18/18 20:00 97.6 105 20 91/58 (69) 99 07/18/18 19:23 111 07/18/18 17:15 103 97/53 07/18/18 16:00 102 07/18/18 16:00 Room Air 07/18/18 16:00 96.4 121 24 121/68 (85) 98 07/18/18 12:00 96.4 98 20 97/60 (72) 98 07/18/18 12:00 Room Air 07/18/18 12:00 108 07/18/18 10:00 Room Air Intake and Output 07/18/18 07/19/18 18:59 06:59 Intake Total 2756 ml 700 ml Output Total 140 ml 200 ml Balance 2616 ml 500 ml Intake Oral 200 ml 50 ml IV Total 1869 ml 650 ml Blood Product 687 ml Output Urine Total 140 ml 200 ml # Voids 1 1 # Bowel Movements 2 2 Laboratory Tests Test 07/18/18 15:30 07/19/18 04:10 07/19/18 04:50 Urine Eosinophils None seen (NONE SEEN) Urine Random Sodium 44 mmol/L (20-110) White Blood Count 12.5 K/UL (4.8-10.8) H Red Blood Count 2.62 M/UL (4.70-6.10) L Hemoglobin 7.8 G/DL (14.2-18.0) L Hematocrit 22.6 % (42.0-52.0) L Mean Corpuscular Volume 86 FL (80-99) Mean Corpuscular Hemoglobin 29.7 PG (27.0-31.0) Mean Corpuscular Hemoglobin Concent 34.4 G/DL (32.0-36.0) Red Cell Distribution Width 18.0 % (11.6-14.8) H Platelet Count 12 K/UL (150-450) L Mean Platelet Volume 5.9 FL (6.5-10.1) L Neutrophils (%) (Auto) % (45.0-75.0) Lymphocytes (%) (Auto) % (20.0-45.0) Monocytes (%) (Auto) % (1.0-10.0) Eosinophils (%) (Auto) % (0.0-3.0) Basophils (%) (Auto) % (0.0-2.0) Differential Total Cells Counted 100 Neutrophils % (Manual) 89 % (45-75) H Lymphocytes % (Manual) 8 % (20-45) L Monocytes % (Manual) 2 % (1-10) Eosinophils % (Manual) 1 % (0-3) Basophils % (Manual) 0 % (0-2) Band Neutrophils 0 % (0-8) Platelet Estimate Decreased L Platelet Morphology Normal Polychromasia 1+ Anisocytosis 1+ Prothrombin Time 20.4 SEC (9.30-11.50) H Prothromb Time International Ratio 2.0 (0.9-1.1) H Activated Partial Thromboplast Time 99 SEC (23-33) H Sodium Level 134 MMOL/L (136-145) L Potassium Level 4.8 MMOL/L (3.5-5.1) Chloride Level 107 MMOL/L (98-107) Carbon Dioxide Level 15 MMOL/L (21-32) L Anion Gap 12 mmol/L (5-15) Blood Urea Nitrogen 97 mg/dL (7-18) H Creatinine 3.6 MG/DL (0.55-1.30) H Estimat Glomerular Filtration Rate 23.1 mL/min (>60) Glucose Level 77 MG/DL (74-106) Lactic Acid Level 2.30 mmol/L (0.4-2.0) H Uric Acid 9.4 MG/DL (2.6-7.2) H Calcium Level 6.2 MG/DL (8.5-10.1) L Phosphorus Level 8.3 MG/DL (2.5-4.9) H Magnesium Level 1.8 MG/DL (1.8-2.4) Total Bilirubin 3.5 MG/DL (0.2-1.0) H Direct Bilirubin 2.6 MG/DL (0.0-0.3) H Aspartate Amino Transf (AST/SGOT) 48 U/L (15-37) H Alanine Aminotransferase (ALT/SGPT) 9 U/L (12-78) L Alkaline Phosphatase 152 U/L (46-116) H C-Reactive Protein, Quantitative 23.4 mg/dL (0.00-0.90) H Pro-B-Type Natriuretic Peptide 77269 pg/mL (0-125) H Total Protein 4.1 G/DL (6.4-8.2) L Albumin 1.0 G/DL (3.4-5.0) L Globulin 3.1 g/dL Albumin/Globulin Ratio 0.3 (1.0-2.7) L Stool Occult Blood Positive (NEGATIVE) Microbiology Date/Time Source Procedure Growth Status 07/17/18 13:15 Sputum Induced Gram Stain - Final Complete 07/17/18 13:15 Sputum Culture - Final Liz Albicans Complete Objective HEAD AND NECK: No jugular venous distention. LUNGS: Clear. CARDIOVASCULAR: Tachycardic S1, S2 with no gallop or murmur. ABDOMEN: Soft. EXTREMITIES: No pitting edema. Toney Howe MD Jul 19, 2018 08:57
[2018-07-19] MEDS ORDERED: Morphine Sulfate 2mg/ml Inj(IV/IM USE ONLY) IVP PRN (09:50)
[2018-07-19] MEDS ORDERED: Albuterol/Ipratropium 3ml neb HHN PRN (09:51)
--- NOTE | 2018-07-19 09:54 | Infectious Diseases Prog Note ---
Assessment/Plan Assessment/Plan Sepsis- 2ry to Cdiff and PNA- r/o bacteremia -07/16 CXR p -07/14 SP cx p -07/12 Bcx NTD CXR: Interval development of consolidation right upper lobe. Decrease in pleural thickening when compared to prior study Low grade fever, SP Leukocytosis, increasing Tachycardia- -V/Q scan: Matched heterogeneous tracer distribution. Matched right lower lobe perfusion defect deemed low probability for pulmonary embolus -Echo: Right ventricular enlargement with basal segments akinesia and preserved apical segment, possible Hayes sign suggestive of pulmonary embolism.Aortic valve calcification with normal cusp excursion. Recurrent Cdiff- ?compliance to previous oral vancomycin (while in the hospital he refused some dosages; unclear if finished course at SNF) -07/12 Cdiff + stool cx: normal fecal phi Acute anemia- suspect GIB given melanotic stools Thrombocytopenia REENA on CKD, worsening Diffuse lymphadenopathy/multiple systemic symptoms- Ddx: CMV disease (ie colitis ), Diffuse MAC, recurrente Castleman, HIV related, lymphoma; refused excisional biopsy in the past -05/18 s/p L axillary lymph node biopsy -path fragments of benign lymph node with pronounced polytypic plasmacytosis; focally + HHV8. 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 -05/16/18 CT chest: Mediastinal, axillary, and supraclavicular lymphadenopathy , enlarged compared to the prior CT of the chest. Largest left axillary node measures 3.4 x 2.4 cm. Largest supraclavicular node on the left measures 3.8 x 2.8 cm. Largest mediastinal nodes include a 2.2 x 1.6 cm pretracheal node and a 2.3 x 1.6 cm subcarinal node. Small layering right pleural effusion with fluid in the minor fissure. Kasie-bronchovascular groundglass haziness and nodularity in the right lower lobe. Scattered paraseptal emphysematous changes, predominantly in the upper lung zones. -05/16/18 CT abd/p: Diffuse edema and haziness throughout the mesenteric root. Not significantly changed compared to the visualized portions of the mesenteric root in the prior CT of the chest dated 10/22/17. Mesenteric, retroperitoneal, and inguinal lymphadenopathy. Largest retroperitoneal node measures 3.1 x 2.5 x 2.0 cm to left of the IVC (series 8 image 56, series 10 image 23). Largest left inguinal left node measures 2.9 x 2.5 cm (series 8 image 90). Mild fluid distention and air-fluid levels throughout the colon, which may suggest mild colitis and/or diarrheal disease. No evidence of bowel obstruction. Cholelithiasis without gallbladder wall thickening or ductal dilatation. Scattered subcentimeter hypodensities throughout the spleen, possibly tiny simple cysts. Subcentimeter simple-appearing left renal cortical cysts. Mild urinary bladder wall thickening, most likely related to underdistention. -CT head: . Opacification of the right maxillary sinus, right frontal sinus , and mucosal thickening throughout the ethmoid air cells and left maxillary sinus, suggestive of sinusitis. Partial opacification of the inferior posterior aspect of the left mastoid air cells, suggesting small left mastoid effusion. 04/2018- Cr Ag , T spot, CMV PCR, CMV IgM neg - 10/22/17- CT show reticular opacity and significant lymphadenopathy 10/23/17 - CT abd/pel Lymphadenopathy, Enlarged Pancrease mild B/L hydronephrosis -Blasto, Histo, CrAg neg 11/21/16 - Quantiferon negative (Out Side lab) Recent Cdiff Colitis -06/12 Cdiff toxin A/B + -04/2018 Cdiff neg -stool cx normal phi - O and P neg x3 HIV/AIDS- questionable compliance to ARV (dx 1999)- on Truvada and Dolutegravir 05/2018HIV VL 260, RPR neg, GC/CL neg -04/2018 Cd4 64 (9.1%); VL 100 ?decreased due to non compliance, however low viremia (will expect higher viremia if non compliance) -10/2017 HIV VL ND, CD4 87 (12.4%) -09/01/17 - CD4 192 and VL - ND (Out Side labs) -no hx of resistance ; previously on Truvada, Reyataz and Norvir -Has been above 200 in the past. Came down with Chemo hx pancreatitis 10/2017 hx of Kaposi's sarcoma/Castleman's disease s/p chemotherapy - S/P Chemo ending 07/17/17 Last PET 08/12/17 - show stable/not worsening lymphadenopathy Hep C+ -VL ND hx of Chronic Hep B, VL <15 09/01/17 RPR, GC/CL : negative hx of DVT CKD Plan: -Flagyl # 5 per GI -Cont PO vancomycin 125mg qid #6/10-14 .add Tygcail d# 3 -if diarrhea not improving, will switch Fidaxomycin - Atovaqune ( PCP PPX) -DC empiric IV Vancomycin # 6 ( TCP ) '07/16 Bactrim ( PCP Px) 07/16 Zosyn # 4 ( was stopped for TCP ) -f/u cx -Monitor CBC/CMP, temperatures -Will need excisional biopsy and bone marrow biopsy- high suspicion for recurrence of Castleman's disease - will reattempt once more stabilized- in the past refused twice -f/u CD4 -Continue ARV: TRuvada +Dolutegravir -asked lab to get HIV genotype results that were done last admission -Continue prophylactic Bactrim and weekly Azithromycin for PCP and MAC respectively -GI eval -Heme onc eval -f/u sp cx -CXR 2v am Subjective Allergies: Coded Allergies: No Known Allergies (Unverified , 10/21/17) Subjective Afebrile No leukocytosis On 2L NC BM x 1 today Objective Vital Signs Last 24 Hour Vital Signs Date Time Temp Pulse Resp B/P (MAP) Pulse Ox O2 Delivery O2 Flow Rate FiO2 07/19/18 08:00 97.9 97 20 108/62 (77) 97 07/19/18 08:00 97 07/19/18 08:00 Nasal Cannula 2.0 07/19/18 07:57 99 Nasal Cannula 2.0 28 07/19/18 04:00 104 07/19/18 04:00 97.2 102 22 91/59 (70) 100 07/19/18 04:00 Nasal Cannula 2.0 07/19/18 00:00 97.8 109 20 103/50 (67) 100 07/19/18 00:00 Nasal Cannula 2.0 07/18/18 23:37 111 07/18/18 20:00 Nasal Cannula 2.0 07/18/18 20:00 97.6 105 20 91/58 (69) 99 07/18/18 19:23 111 07/18/18 17:15 103 97/53 07/18/18 16:00 102 07/18/18 16:00 Room Air 07/18/18 16:00 96.4 121 24 121/68 (85) 98 07/18/18 12:00 96.4 98 20 97/60 (72) 98 07/18/18 12:00 Room Air 07/18/18 12:00 108 07/18/18 10:00 Room Air Height (Feet): 6 Height (Inches): 0.00 Weight (Pounds): 142 Objective GEN: NAD on 2L NC HEENT: NCAT, MMM Respiratory/Chest: CTAB, No W Cardiovascular: regular rhythm Abdomen: no organomegaly Microbiology Date/Time Source Procedure Growth Status 07/17/18 13:15 Sputum Induced Gram Stain - Final Complete 07/17/18 13:15 Sputum Culture - Final Liz Albicans Complete Laboratory Tests Test 07/18/18 15:30 07/19/18 04:10 07/19/18 04:50 Urine Eosinophils None seen (NONE SEEN) Urine Random Sodium 44 mmol/L (20-110) White Blood Count 12.5 K/UL (4.8-10.8) H Red Blood Count 2.62 M/UL (4.70-6.10) L Hemoglobin 7.8 G/DL (14.2-18.0) L Hematocrit 22.6 % (42.0-52.0) L Mean Corpuscular Volume 86 FL (80-99) Mean Corpuscular Hemoglobin 29.7 PG (27.0-31.0) Mean Corpuscular Hemoglobin Concent 34.4 G/DL (32.0-36.0) Red Cell Distribution Width 18.0 % (11.6-14.8) H Platelet Count 12 K/UL (150-450) L Mean Platelet Volume 5.9 FL (6.5-10.1) L Neutrophils (%) (Auto) % (45.0-75.0) Lymphocytes (%) (Auto) % (20.0-45.0) Monocytes (%) (Auto) % (1.0-10.0) Eosinophils (%) (Auto) % (0.0-3.0) Basophils (%) (Auto) % (0.0-2.0) Differential Total Cells Counted 100 Neutrophils % (Manual) 89 % (45-75) H Lymphocytes % (Manual) 8 % (20-45) L Monocytes % (Manual) 2 % (1-10) Eosinophils % (Manual) 1 % (0-3) Basophils % (Manual) 0 % (0-2) Band Neutrophils 0 % (0-8) Platelet Estimate Decreased L Platelet Morphology Normal Polychromasia 1+ Anisocytosis 1+ Prothrombin Time 20.4 SEC (9.30-11.50) H Prothromb Time International Ratio 2.0 (0.9-1.1) H Activated Partial Thromboplast Time 99 SEC (23-33) H Sodium Level 134 MMOL/L (136-145) L Potassium Level 4.8 MMOL/L (3.5-5.1) Chloride Level 107 MMOL/L (98-107) Carbon Dioxide Level 15 MMOL/L (21-32) L Anion Gap 12 mmol/L (5-15) Blood Urea Nitrogen 97 mg/dL (7-18) H Creatinine 3.6 MG/DL (0.55-1.30) H Estimat Glomerular Filtration Rate 23.1 mL/min (>60) Glucose Level 77 MG/DL (74-106) Lactic Acid Level 2.30 mmol/L (0.4-2.0) H Uric Acid 9.4 MG/DL (2.6-7.2) H Calcium Level 6.2 MG/DL (8.5-10.1) L Phosphorus Level 8.3 MG/DL (2.5-4.9) H Magnesium Level 1.8 MG/DL (1.8-2.4) Total Bilirubin 3.5 MG/DL (0.2-1.0) H Direct Bilirubin 2.6 MG/DL (0.0-0.3) H Aspartate Amino Transf (AST/SGOT) 48 U/L (15-37) H Alanine Aminotransferase (ALT/SGPT) 9 U/L (12-78) L Alkaline Phosphatase 152 U/L (46-116) H C-Reactive Protein, Quantitative 23.4 mg/dL (0.00-0.90) H Pro-B-Type Natriuretic Peptide 52496 pg/mL (0-125) H Total Protein 4.1 G/DL (6.4-8.2) L Albumin 1.0 G/DL (3.4-5.0) L Globulin 3.1 g/dL Albumin/Globulin Ratio 0.3 (1.0-2.7) L Stool Occult Blood Positive (NEGATIVE) Current Medications Medications (Trade) Dose Ordered Sig/Yessica Route PRN Reason Start Time Stop Time Status Last Admin Dose Admin Acetaminophen (Tylenol) 650 mg Q4H PRN ORAL fever 07/13/18 13:45 08/11/18 21:44 07/18/18 17:10 Acetaminophen/ Hydrocodone Bitart ([place] 5/325) 1 tab Q6H PRN ORAL Moderate Pain (Pain Scale 4-6) 07/16/18 20:45 07/23/18 20:44 07/17/18 22:30 Albuterol/ Ipratropium (Albuterol/ Ipratropium) 3 ml Q4HRT PRN HHN sob 07/19/18 09:51 07/24/18 09:50 Atovaquone (Mepron Susp) 1,500 mg DAILY ORAL 07/17/18 12:00 08/16/18 11:59 07/19/18 08:29 Azithromycin (Zithromax) 1,200 mg ONCE A WEEK ORAL 07/16/18 09:00 07/23/18 08:59 07/16/18 10:02 Chlorhexidine Gluconate (Felipa-Hex 2%) 1 applic DAILY@2000 TOPIC 07/16/18 20:00 08/15/18 19:59 07/18/18 21:18 Dextrose (Dextrose 50%) 25 ml Q30M PRN IV Hypoglycemia 07/13/18 10:15 08/11/18 21:44 Dextrose (Dextrose 50%) 50 ml Q30M PRN IV Hypoglycemia 07/13/18 10:15 08/11/18 21:44 Dextrose/Sodium Chloride 1,000 ml @ 50 mls/hr Q20H IV 07/16/18 11:00 08/15/18 10:59 07/18/18 23:12 Diphenhydramine HCl (Benadryl) 25 mg Q6H PRN ORAL Itching/Pruritis 07/13/18 15:45 08/11/18 21:44 07/15/18 15:08 Dronabinol (Marinol) 5 mg BID ORAL 07/17/18 18:00 08/16/18 17:59 07/19/18 08:29 Metoprolol Tartrate (Lopressor) 25 mg BID ORAL 07/13/18 18:00 08/12/18 07:59 07/16/18 08:54 Metronidazole 100 ml @ 100 mls/hr Q8H IVPB 07/16/18 04:00 07/23/18 03:59 07/19/18 05:09 Mirtazapine (Remeron) 15 mg BEDTIME ORAL 07/13/18 21:00 08/12/18 20:59 07/18/18 21:13 Morphine Sulfate (Morphine Sulfate) 2 mg Q4H PRN IVP Moderate Pain (Pain Scale 4-6) 07/19/18 09:50 07/26/18 09:49 Morphine Sulfate (Morphine Sulfate) 4 mg Q4H PRN IVP Severe Pain (Pain Scale 7-10) 07/16/18 17:45 07/23/18 17:44 Nitroglycerin (Ntg) 0.4 mg Q5M X 3 DOSES PRN SL Prn Chest Pain 07/13/18 10:00 08/11/18 21:44 Ondansetron HCl (Zofran) 4 mg Q6H PRN IVP Nausea & Vomiting 07/13/18 15:45 08/11/18 21:44 07/17/18 22:30 Patient Own Medication (Patient's Own Med) 1 ea DAILY ORAL 07/14/18 09:00 08/13/18 08:59 07/19/18 08:32 Patient Own Medication (Patient's Own Med) 1 ea DAILY ORAL 07/14/18 09:00 08/13/18 08:59 07/19/18 08:32 Sevelamer Carbonate (Renvela) 1,600 mg THREE TIMES A DAY ORAL 07/18/18 18:00 08/17/18 17:59 07/19/18 08:28 Temazepam (Restoril) 15 mg HSPRN PRN ORAL Insomnia 07/19/18 09:50 07/26/18 09:49 Tigecycline 50 mg/ Sodium Chloride 110 ml @ 220 mls/hr EVERY 12 HOURS IVPB 07/17/18 21:00 07/24/18 20:59 07/19/18 08:32 Vancomycin HCl (Firvanq) 125 mg FOUR TIMES A DAY ORAL 07/14/18 13:00 07/21/18 12:59 07/19/18 08:35 Sterling Ortiz MD Jul 19, 2018 09:54
[2018-07-19] MEDS ORDERED: NS 275ml ONE (10:02)
--- NOTE | 2018-07-19 11:38 | NUR ---
NURSE NOTES: left a message to dr santos regarding HH of 7.8 and 22.6. awaits callback and new order.
[2018-07-19 12:00] VITALS: BP 91/59
[2018-07-19] MEDS ORDERED: Phytonadione 5 MG in D5W 55 ML IVPB SCH (12:00)
--- NOTE | 2018-07-19 13:08 | NUR ---
NURSE NOTES: dr santos called and ordered to administer 1 PRBC and 1 platelet. will take note and carry out.
--- NOTE | 2018-07-19 13:43 | Hematology/Onc Progress Note ---
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 Hx of HIV, CD4 count very low. He has a very poor memory, says was treated at [facility] Chemo ending 07/17/17. Last PET 08/12 - show stable/not worsening lymphadenopathy. Has very extensive disease on ct scan lympahdenopathy noted throughout, final results of axilla lymphadenopathy biopsy on 05/25/18, and FINAL results from prior admission are nondiagnostic --> I talked with him regarding getting potentially another biopsy (bulky lymph node v bone marrow biopsy) he has thus far refused -- HE HAS BEEN NONCOMPLIANT --> IL-6 was 54 in the past indicating active disease, needs close followup with heme outpatient, would again recommend first a biopsy and further recommendations after procedure --> inflammatory makers are elevated which can be c/w flare but are fairly non- specific --> imaging is ordered as well --> outpatient f/u as well for futher therapy prn --> treat underlying HIV as per ID service --> plt trend 39-->34-->25-->26k-->23k-->15k-->9k-->41k-->12k --> Plt transfusion hx: 1 unit on 07/16 # Anemia of chronic disease -- workup has been reviewed --> esr elevated, as is crp --> transfuse if hgb <7 => hgb trend 7.5-->7.4-->7.8-->6.7-->8-->7.9-->7.8 --> transfuse 2u prbc 07/15, 1 unit PRBC 07/18, # Anemia of folic acid deficiency --> start patient on folic acid 1mg po daily, continue given low levels # DVT hx that was diagnosed at outpatient hospital --> inpatient venous duplex is negative for thromboembolism, therefore DOES not require anticoagulants --> have discussed this with patients and patient's mother # Sepsis - PNA, [place], other infection, TB? --> on HIV meds, abx as needed --> continue as per ID # HIV - On Tivicay and Truvada and Bactrim, CD4 count 64 --> VL pending, CD4 count ordered <100 --> IL-6 is 51 # REENA cr 1.2-->1.1 The timing of this note does not necessarily reflect the time of the patient was seen. Greatly appreciate consultation. Subjective Hematologic/Lymphatic: Reports: anemia Allergies: Coded Allergies: No Known Allergies (Unverified , 10/21/17) All Systems: reviewed and negative except above Subjective 07/16: no events noted, no f/c, plt count 6k, again stressed importance of a bone marrow biopsy, he refused 07/17: Plt transfusion completed.Current Plt count of 41. 6/2: Pt noted to have bloody stool. Hgb at 7.8, 1 unit PRBC has been ordered. Afebrile. Objective Objective Current Medications Medications (Trade) Dose Ordered Sig/Yessica Route PRN Reason Start Time Stop Time Status Last Admin Dose Admin Acetaminophen (Tylenol) 650 mg Q4H PRN ORAL fever 07/13/18 13:45 08/11/18 21:44 07/18/18 17:10 Acetaminophen/ Hydrocodone Bitart ([place] 5/325) 1 tab Q6H PRN ORAL Moderate Pain (Pain Scale 4-6) 07/16/18 20:45 07/23/18 20:44 07/17/18 22:30 Albuterol/ Ipratropium (Albuterol/ Ipratropium) 3 ml Q4HRT PRN HHN sob 07/19/18 09:51 07/24/18 09:50 Atovaquone (Mepron Susp) 1,500 mg DAILY ORAL 07/17/18 12:00 08/16/18 11:59 07/19/18 08:29 Azithromycin (Zithromax) 1,200 mg ONCE A WEEK ORAL 07/16/18 09:00 07/23/18 08:59 07/16/18 10:02 Chlorhexidine Gluconate (Felipa-Hex 2%) 1 applic DAILY@1999 TOPIC 07/16/18 20:00 08/15/18 19:59 07/18/18 21:18 Dextrose (Dextrose 50%) 25 ml Q30M PRN IV Hypoglycemia 07/13/18 10:15 08/11/18 21:44 Dextrose (Dextrose 50%) 50 ml Q30M PRN IV Hypoglycemia 07/13/18 10:15 08/11/18 21:44 Dextrose/Sodium Chloride 1,000 ml @ 50 mls/hr Q20H IV 07/16/18 11:00 08/15/18 10:59 07/18/18 23:12 Diphenhydramine HCl (Benadryl) 25 mg Q6H PRN ORAL Itching/Pruritis 07/13/18 15:45 08/11/18 21:44 07/15/18 15:08 Dronabinol (Marinol) 5 mg BID ORAL 07/17/18 18:00 08/16/18 17:59 07/19/18 08:29 Metoprolol Tartrate (Lopressor) 25 mg BID ORAL 07/13/18 18:00 08/12/18 07:59 07/16/18 08:54 Metronidazole 100 ml @ 100 mls/hr Q8H IVPB 07/16/18 04:00 07/23/18 03:59 07/19/18 05:09 Mirtazapine (Remeron) 15 mg BEDTIME ORAL 07/13/18 21:00 08/12/18 20:59 07/18/18 21:13 Morphine Sulfate (Morphine Sulfate) 2 mg Q4H PRN IVP Moderate Pain (Pain Scale 4-6) 07/19/18 09:50 07/26/18 09:49 Morphine Sulfate (Morphine Sulfate) 4 mg Q4H PRN IVP Severe Pain (Pain Scale 7-10) 07/16/18 17:45 07/23/18 17:44 Nitroglycerin (Ntg) 0.4 mg Q5M X 3 DOSES PRN SL Prn Chest Pain 07/13/18 10:00 08/11/18 21:44 Ondansetron HCl (Zofran) 4 mg Q6H PRN IVP Nausea & Vomiting 07/13/18 15:45 08/11/18 21:44 07/17/18 22:30 Patient Own Medication (Patient's Own Med) 1 ea DAILY ORAL 07/14/18 09:00 08/13/18 08:59 07/19/18 08:32 Patient Own Medication (Patient's Own Med) 1 ea DAILY ORAL 07/14/18 09:00 08/13/18 08:59 07/19/18 08:32 Phytonadione 5 mg/ Dextrose 55.5 ml @ 111 mls/hr ONCE IVPB 07/19/18 12:00 07/19/18 14:00 07/19/18 12:00 Sevelamer Carbonate (Renvela) 1,600 mg THREE TIMES A DAY ORAL 07/18/18 18:00 08/17/18 17:59 07/19/18 13:07 Temazepam (Restoril) 15 mg HSPRN PRN ORAL Insomnia 07/19/18 09:50 07/26/18 09:49 Tigecycline 50 mg/ Sodium Chloride 110 ml @ 220 mls/hr EVERY 12 HOURS IVPB 07/17/18 21:00 07/24/18 20:59 07/19/18 08:32 Vancomycin HCl (Firvanq) 125 mg FOUR TIMES A DAY ORAL 07/14/18 13:00 07/21/18 12:59 07/19/18 08:35 Last 24 Hour Vital Signs Date Time Temp Pulse Resp B/P (MAP) Pulse Ox O2 Delivery O2 Flow Rate FiO2 07/19/18 12:00 Nasal Cannula 2.0 07/19/18 08:00 97.9 97 20 108/62 (77) 97 07/19/18 08:00 97 07/19/18 08:00 Nasal Cannula 2.0 07/19/18 07:57 99 Nasal Cannula 2.0 28 07/19/18 04:00 104 07/19/18 04:00 97.2 102 22 91/59 (70) 100 07/19/18 04:00 Nasal Cannula 2.0 07/19/18 00:00 97.8 109 20 103/50 (67) 100 07/19/18 00:00 Nasal Cannula 2.0 07/18/18 23:37 111 07/18/18 20:00 Nasal Cannula 2.0 07/18/18 20:00 97.6 105 20 91/58 (69) 99 07/18/18 19:23 111 07/18/18 17:15 103 97/53 07/18/18 16:00 102 07/18/18 16:00 Room Air 07/18/18 16:00 96.4 121 24 121/68 (85) 98 07/18/18 12:00 96.4 98 20 97/60 (72) 98 07/18/18 12:00 Room Air 07/18/18 12:00 108 07/18/18 10:00 Room Air 07/18/18 08:53 110 82/57 07/18/18 08:00 97.0 113 22 89/57 (68) 100 07/18/18 08:00 Room Air 07/18/18 08:00 112 07/18/18 04:00 94.5 115 18 90/55 (67) 100 07/18/18 04:00 Nasal Cannula 2.0 07/18/18 03:59 119 07/18/18 00:07 110 07/18/18 00:00 Nasal Cannula 2.0 07/18/18 00:00 95.9 109 20 96/67 (77) 100 07/17/18 20:00 Nasal Cannula 2.0 07/17/18 20:00 114 07/17/18 20:00 94.5 116 18 100/64 (76) 100 07/17/18 16:17 Room Air 07/17/18 16:00 94.5 112 20 109/61 (77) 100 07/17/18 16:00 112 Intake and Output 07/18/18 07/19/18 18:59 06:59 Intake Total 2756 ml 700 ml Output Total 140 ml 200 ml Balance 2616 ml 500 ml Intake Oral 200 ml 50 ml IV Total 1869 ml 650 ml Blood Product 687 ml Output Urine Total 140 ml 200 ml # Voids 1 1 # Bowel Movements 2 2 Labs Test 07/16/18 20:30 07/17/18 01:00 07/17/18 04:00 07/17/18 04:15 White Blood Count 18.5 K/UL (4.8-10.8) 16.1 K/UL (4.8-10.8) Red Blood Count 2.78 M/UL (4.70-6.10) 2.81 M/UL (4.70-6.10) Hemoglobin 7.9 G/DL (14.2-18.0) 7.9 G/DL (14.2-18.0) Hematocrit 23.0 % (42.0-52.0) 23.7 % (42.0-52.0) Mean Corpuscular Volume 83 FL (80-99) 84 FL (80-99) Mean Corpuscular Hemoglobin 28.2 PG (27.0-31.0) 28.2 PG (27.0-31.0) Mean Corpuscular Hemoglobin Concent 34.2 G/DL (32.0-36.0) 33.4 G/DL (32.0-36.0) Red Cell Distribution Width 17.7 % (11.6-14.8) 18.0 % (11.6-14.8) Platelet Count 18 K/UL (150-450) 41 K/UL (150-450) Mean Platelet Volume 6.3 FL (6.5-10.1) 8.2 FL (6.5-10.1) Neutrophils (%) (Auto) % (45.0-75.0) % (45.0-75.0) Lymphocytes (%) (Auto) % (20.0-45.0) % (20.0-45.0) Monocytes (%) (Auto) % (1.0-10.0) % (1.0-10.0) Eosinophils (%) (Auto) % (0.0-3.0) % (0.0-3.0) Basophils (%) (Auto) % (0.0-2.0) % (0.0-2.0) Differential Total Cells Counted 100 100 Neutrophils % (Manual) 86 % (45-75) 86 % (45-75) Lymphocytes % (Manual) 6 % (20-45) 8 % (20-45) Monocytes % (Manual) 3 % (1-10) 2 % (1-10) Eosinophils % (Manual) 1 % (0-3) 1 % (0-3) Basophils % (Manual) 0 % (0-2) 0 % (0-2) Promyelocytes % 1 % (0-0) Band Neutrophils 3 % (0-8) 3 % (0-8) Nucleated Red Blood Cells 1 /100 WBC 4 /100 WBC Platelet Estimate Decreased Decreased Platelet Morphology Normal Normal Polychromasia 1+ 1+ Anisocytosis 1+ 1+ [place] Cells 1+ Prothrombin Time 17.0 SEC (9.30-11.50) Prothromb Time International Ratio 1.7 (0.9-1.1) Activated Partial Thromboplast Time 63 SEC (23-33) Sodium Level 132 MMOL/L (136-145) Potassium Level 4.0 MMOL/L (3.5-5.1) Chloride Level 103 MMOL/L (98-107) Carbon Dioxide Level 17 MMOL/L (21-32) Anion Gap 13 mmol/L (5-15) Blood Urea Nitrogen 65 mg/dL (7-18) Creatinine 2.8 MG/DL (0.55-1.30) Estimat Glomerular Filtration Rate 30.9 mL/min (>60) Glucose Level 57 MG/DL (74-106) Calcium Level 6.6 MG/DL (8.5-10.1) Phosphorus Level 6.7 MG/DL (2.5-4.9) Magnesium Level 1.9 MG/DL (1.8-2.4) Total Bilirubin 1.4 MG/DL (0.2-1.0) Direct Bilirubin 0.8 MG/DL (0.0-0.3) Aspartate Amino Transf (AST/SGOT) 58 U/L (15-37) Alanine Aminotransferase (ALT/SGPT) 10 U/L (12-78) Alkaline Phosphatase 82 U/L (46-116) C-Reactive Protein, Quantitative 25.5 mg/dL (0.00-0.90) Total Protein 4.8 G/DL (6.4-8.2) Albumin 0.7 G/DL (3.4-5.0) Globulin 4.1 g/dL Albumin/Globulin Ratio 0.2 (1.0-2.7) Random Vancomycin Level 23.2 ug/mL Urine Random Sodium < 20 mmol/L (20-110) Urine Eosinophils None seen (NONE SEEN) Test 07/17/18 14:45 07/18/18 05:00 07/18/18 15:30 07/19/18 04:10 White Blood Count 15.6 K/UL (4.8-10.8) 15.6 K/UL (4.8-10.8) 12.5 K/UL (4.8-10.8) Red Blood Count 2.33 M/UL (4.70-6.10) 2.43 M/UL (4.70-6.10) 2.62 M/UL (4.70-6.10) Hemoglobin 6.6 G/DL (14.2-18.0) 6.9 G/DL (14.2-18.0) 7.8 G/DL (14.2-18.0) Hematocrit 19.7 % (42.0-52.0) 20.4 % (42.0-52.0) 22.6 % (42.0-52.0) Mean Corpuscular Volume 85 FL (80-99) 84 FL (80-99) 86 FL (80-99) Mean Corpuscular Hemoglobin 28.4 PG (27.0-31.0) 28.6 PG (27.0-31.0) 29.7 PG (27.0-31.0) Mean Corpuscular Hemoglobin Concent 33.6 G/DL (32.0-36.0) 34.1 G/DL (32.0-36.0) 34.4 G/DL (32.0-36.0) Red Cell Distribution Width 18.5 % (11.6-14.8) 16.8 % (11.6-14.8) 18.0 % (11.6-14.8) Platelet Count 12 K/UL (150-450) 13 K/UL (150-450) 12 K/UL (150-450) Mean Platelet Volume 8.2 FL (6.5-10.1) 7.6 FL (6.5-10.1) 5.9 FL (6.5-10.1) Neutrophils (%) (Auto) % (45.0-75.0) % (45.0-75.0) % (45.0-75.0) Lymphocytes (%) (Auto) % (20.0-45.0) % (20.0-45.0) % (20.0-45.0) Monocytes (%) (Auto) % (1.0-10.0) % (1.0-10.0) % (1.0-10.0) Eosinophils (%) (Auto) % (0.0-3.0) % (0.0-3.0) % (0.0-3.0) Basophils (%) (Auto) % (0.0-2.0) % (0.0-2.0) % (0.0-2.0) Differential Total Cells Counted 100 100 100 Neutrophils % (Manual) 78 % (45-75) 87 % (45-75) 89 % (45-75) Lymphocytes % (Manual) 9 % (20-45) 8 % (20-45) 8 % (20-45) Monocytes % (Manual) 3 % (1-10) 3 % (1-10) 2 % (1-10) Eosinophils % (Manual) 2 % (0-3) 2 % (0-3) 1 % (0-3) Basophils % (Manual) 0 % (0-2) 0 % (0-2) 0 % (0-2) Band Neutrophils 8 % (0-8) 0 % (0-8) 0 % (0-8) Nucleated Red Blood Cells 7 /100 WBC 7 /100 WBC Platelet Estimate Decreased Decreased Decreased Platelet Morphology Normal Normal Normal Polychromasia 1+ 2+ 1+ Hypochromasia 2+ 1+ Anisocytosis 1+ 1+ 1+ Sodium Level 131 MMOL/L (136-145) 133 MMOL/L (136-145) 134 MMOL/L (136-145) Potassium Level 4.3 MMOL/L (3.5-5.1) 4.5 MMOL/L (3.5-5.1) 4.8 MMOL/L (3.5-5.1) Chloride Level 104 MMOL/L (98-107) 105 MMOL/L (98-107) 107 MMOL/L (98-107) Carbon Dioxide Level 15 MMOL/L (21-32) 13 MMOL/L (21-32) 15 MMOL/L (21-32) Anion Gap 12 mmol/L (5-15) 15 mmol/L (5-15) 12 mmol/L (5-15) Blood Urea Nitrogen 74 mg/dL (7-18) 76 mg/dL (7-18) 97 mg/dL (7-18) Creatinine 3.1 MG/DL (0.55-1.30) 3.3 MG/DL (0.55-1.30) 3.6 MG/DL (0.55-1.30) Estimat Glomerular Filtration Rate 27.5 mL/min (>60) 25.6 mL/min (>60) 23.1 mL/min (>60) Glucose Level 90 MG/DL (74-106) 92 MG/DL (74-106) 77 MG/DL (74-106) Calcium Level 6.2 MG/DL (8.5-10.1) 6.1 MG/DL (8.5-10.1) 6.2 MG/DL (8.5-10.1) Erythrocyte Sedimentation Rate 86 MM/HR (0-15) Phosphorus Level 7.8 MG/DL (2.5-4.9) 8.3 MG/DL (2.5-4.9) Magnesium Level 1.6 MG/DL (1.8-2.4) 1.8 MG/DL (1.8-2.4) Total Bilirubin 2.0 MG/DL (0.2-1.0) 3.5 MG/DL (0.2-1.0) Direct Bilirubin 1.3 MG/DL (0.0-0.3) 2.6 MG/DL (0.0-0.3) Aspartate Amino Transf (AST/SGOT) 68 U/L (15-37) 48 U/L (15-37) Alanine Aminotransferase (ALT/SGPT) 22 U/L (12-78) 9 U/L (12-78) Alkaline Phosphatase 92 U/L (46-116) 152 U/L (46-116) C-Reactive Protein, Quantitative 22.1 mg/dL (0.00-0.90) 23.4 mg/dL (0.00-0.90) Total Protein 4.1 G/DL (6.4-8.2) 4.1 G/DL (6.4-8.2) Albumin 0.8 G/DL (3.4-5.0) 1.0 G/DL (3.4-5.0) Globulin 3.3 g/dL 3.1 g/dL Albumin/Globulin Ratio 0.2 (1.0-2.7) 0.3 (1.0-2.7) Urine Eosinophils None seen (NONE SEEN) Urine Random Sodium 44 mmol/L (20-110) Prothrombin Time 20.4 SEC (9.30-11.50) Prothromb Time International Ratio 2.0 (0.9-1.1) Activated Partial Thromboplast Time 99 SEC (23-33) Lactic Acid Level 2.30 mmol/L (0.4-2.0) Uric Acid 9.4 MG/DL (2.6-7.2) Pro-B-Type Natriuretic Peptide 78166 pg/mL (0-125) Test 07/19/18 04:50 Stool Occult Blood Positive (NEGATIVE) Height (Feet): 6 Height (Inches): 0.00 Weight (Pounds): 142 Objective Physical Exam: Vitals: reviewed General Appearance: NAD HEENT: normocephalic, atraumatic Neck: non-tender, normal alignment Respiratory/Chest: normal breath sounds bilaterally Cardiovascular/Chest: normal peripheral pulses, normal rate Abdomen: normal bowel sounds, soft, nontender Extremities: normal range of motion Jean Bingham MD Jul 19, 2018 13:42
--- NOTE | 2018-07-19 14:00 | Internal Med Progress Note ---
Subjective Date of Service: Jul 19, 2018 Physician Name Adam Padron Attending Physician Alberto Gtz MD Current Medications Medications (Trade) Dose Ordered Sig/Yessica Route PRN Reason Start Time Stop Time Status Last Admin Dose Admin Acetaminophen (Tylenol) 650 mg Q4H PRN ORAL fever 07/13/18 13:45 08/11/18 21:44 07/18/18 17:10 Acetaminophen/ Hydrocodone Bitart ([place] 5/325) 1 tab Q6H PRN ORAL Moderate Pain (Pain Scale 4-6) 07/16/18 20:45 07/23/18 20:44 07/17/18 22:30 Albuterol/ Ipratropium (Albuterol/ Ipratropium) 3 ml Q4HRT PRN HHN sob 07/19/18 09:51 07/24/18 09:50 Atovaquone (Mepron Susp) 1,500 mg DAILY ORAL 07/17/18 12:00 08/16/18 11:59 07/19/18 08:29 Azithromycin (Zithromax) 1,200 mg ONCE A WEEK ORAL 07/16/18 09:00 07/23/18 08:59 07/16/18 10:02 Chlorhexidine Gluconate (Felipa-Hex 2%) 1 applic DAILY@2000 TOPIC 07/16/18 20:00 08/15/18 19:59 07/18/18 21:18 Dextrose (Dextrose 50%) 25 ml Q30M PRN IV Hypoglycemia 07/13/18 10:15 08/11/18 21:44 Dextrose (Dextrose 50%) 50 ml Q30M PRN IV Hypoglycemia 07/13/18 10:15 08/11/18 21:44 Dextrose/Sodium Chloride 1,000 ml @ 50 mls/hr Q20H IV 07/16/18 11:00 08/15/18 10:59 07/18/18 23:12 Diphenhydramine HCl (Benadryl) 25 mg Q6H PRN ORAL Itching/Pruritis 07/13/18 15:45 08/11/18 21:44 07/15/18 15:08 Dronabinol (Marinol) 5 mg BID ORAL 07/17/18 18:00 08/16/18 17:59 07/19/18 08:29 Metoprolol Tartrate (Lopressor) 25 mg BID ORAL 07/13/18 18:00 08/12/18 07:59 07/16/18 08:54 Metronidazole 100 ml @ 100 mls/hr Q8H IVPB 07/16/18 04:00 07/23/18 03:59 07/19/18 13:54 Mirtazapine (Remeron) 15 mg BEDTIME ORAL 07/13/18 21:00 08/12/18 20:59 07/18/18 21:13 Morphine Sulfate (Morphine Sulfate) 2 mg Q4H PRN IVP Moderate Pain (Pain Scale 4-6) 07/19/18 09:50 07/26/18 09:49 Morphine Sulfate (Morphine Sulfate) 4 mg Q4H PRN IVP Severe Pain (Pain Scale 7-10) 07/16/18 17:45 07/23/18 17:44 Nitroglycerin (Ntg) 0.4 mg Q5M X 3 DOSES PRN SL Prn Chest Pain 07/13/18 10:00 08/11/18 21:44 Ondansetron HCl (Zofran) 4 mg Q6H PRN IVP Nausea & Vomiting 07/13/18 15:45 08/11/18 21:44 07/17/18 22:30 Patient Own Medication (Patient's Own Med) 1 ea DAILY ORAL 07/14/18 09:00 08/13/18 08:59 07/19/18 08:32 Patient Own Medication (Patient's Own Med) 1 ea DAILY ORAL 07/14/18 09:00 08/13/18 08:59 07/19/18 08:32 Phytonadione 5 mg/ Dextrose 55.5 ml @ 111 mls/hr ONCE IVPB 07/19/18 12:00 07/19/18 14:00 07/19/18 12:00 Sevelamer Carbonate (Renvela) 1,600 mg THREE TIMES A DAY ORAL 07/18/18 18:00 08/17/18 17:59 07/19/18 13:07 Temazepam (Restoril) 15 mg HSPRN PRN ORAL Insomnia 07/19/18 09:50 07/26/18 09:49 Tigecycline 50 mg/ Sodium Chloride 110 ml @ 220 mls/hr EVERY 12 HOURS IVPB 07/17/18 21:00 07/24/18 20:59 07/19/18 08:32 Vancomycin HCl (Firvanq) 125 mg FOUR TIMES A DAY ORAL 07/14/18 13:00 07/21/18 12:59 07/19/18 13:56 Allergies: Coded Allergies: No Known Allergies (Unverified , 10/21/17) ROS Limited/Unobtainable: No Constitutional: Reports: no symptoms HEENT: Reports: no symptoms Cardiovascular: Reports: no symptoms Respiratory: Reports: no symptoms Gastrointestinal/Abdominal: Reports: no symptoms Genitourinary: Reports: no symptoms Subjective 37 YO M with HIV admitted with abdominal pain, nausea and vomiting. Now clostridium difficile diarrhea. Cover for Int Med-Dr Gtz. SOFIA Objective Last Vital Signs Date Time Temp Pulse Resp B/P (MAP) Pulse Ox O2 Delivery O2 Flow Rate FiO2 07/19/18 12:00 107 07/19/18 12:00 Nasal Cannula 2.0 07/19/18 08:00 97.9 20 108/62 (77) 97 07/19/18 07:57 28 Laboratory Tests Test 07/18/18 15:30 07/19/18 04:10 07/19/18 04:50 Urine Eosinophils None seen (NONE SEEN) Urine Random Sodium 44 mmol/L (20-110) White Blood Count 12.5 K/UL (4.8-10.8) H Red Blood Count 2.62 M/UL (4.70-6.10) L Hemoglobin 7.8 G/DL (14.2-18.0) L Hematocrit 22.6 % (42.0-52.0) L Mean Corpuscular Volume 86 FL (80-99) Mean Corpuscular Hemoglobin 29.7 PG (27.0-31.0) Mean Corpuscular Hemoglobin Concent 34.4 G/DL (32.0-36.0) Red Cell Distribution Width 18.0 % (11.6-14.8) H Platelet Count 12 K/UL (150-450) L Mean Platelet Volume 5.9 FL (6.5-10.1) L Neutrophils (%) (Auto) % (45.0-75.0) Lymphocytes (%) (Auto) % (20.0-45.0) Monocytes (%) (Auto) % (1.0-10.0) Eosinophils (%) (Auto) % (0.0-3.0) Basophils (%) (Auto) % (0.0-2.0) Differential Total Cells Counted 100 Neutrophils % (Manual) 89 % (45-75) H Lymphocytes % (Manual) 8 % (20-45) L Monocytes % (Manual) 2 % (1-10) Eosinophils % (Manual) 1 % (0-3) Basophils % (Manual) 0 % (0-2) Band Neutrophils 0 % (0-8) Platelet Estimate Decreased L Platelet Morphology Normal Polychromasia 1+ Anisocytosis 1+ Prothrombin Time 20.4 SEC (9.30-11.50) H Prothromb Time International Ratio 2.0 (0.9-1.1) H Activated Partial Thromboplast Time 99 SEC (23-33) H Sodium Level 134 MMOL/L (136-145) L Potassium Level 4.8 MMOL/L (3.5-5.1) Chloride Level 107 MMOL/L (98-107) Carbon Dioxide Level 15 MMOL/L (21-32) L Anion Gap 12 mmol/L (5-15) Blood Urea Nitrogen 97 mg/dL (7-18) H Creatinine 3.6 MG/DL (0.55-1.30) H Estimat Glomerular Filtration Rate 23.1 mL/min (>60) Glucose Level 77 MG/DL (74-106) Lactic Acid Level 2.30 mmol/L (0.4-2.0) H Uric Acid 9.4 MG/DL (2.6-7.2) H Calcium Level 6.2 MG/DL (8.5-10.1) L Phosphorus Level 8.3 MG/DL (2.5-4.9) H Magnesium Level 1.8 MG/DL (1.8-2.4) Total Bilirubin 3.5 MG/DL (0.2-1.0) H Direct Bilirubin 2.6 MG/DL (0.0-0.3) H Aspartate Amino Transf (AST/SGOT) 48 U/L (15-37) H Alanine Aminotransferase (ALT/SGPT) 9 U/L (12-78) L Alkaline Phosphatase 152 U/L (46-116) H C-Reactive Protein, Quantitative 23.4 mg/dL (0.00-0.90) H Pro-B-Type Natriuretic Peptide 02269 pg/mL (0-125) H Total Protein 4.1 G/DL (6.4-8.2) L Albumin 1.0 G/DL (3.4-5.0) L Globulin 3.1 g/dL Albumin/Globulin Ratio 0.3 (1.0-2.7) L Stool Occult Blood Positive (NEGATIVE) Microbiology Date/Time Source Procedure Growth Status 07/17/18 13:15 Sputum Induced Gram Stain - Final Complete 07/17/18 13:15 Sputum Culture - Final Liz Albicans Complete Intake and Output 07/18/18 07/19/18 19:00 07:00 Intake Total 2756 ml 750 ml Output Total 140 ml 200 ml Balance 2616 ml 550 ml Intake Oral 200 ml 50 ml IV Total 1869 ml 700 ml Blood Product 687 ml Output Urine Total 140 ml 200 ml # Voids 1 1 # Bowel Movements 2 2 Objective PHYSICAL EXAMINATION: GENERAL: The patient is thin-appearing male, in no apparent distress. HEENT: Eyes, pupils equal and responsive to light and accommodation. Extraocular movements are intact. NECK: Supple without lymphadenopathy. CHEST: Lungs are clear to auscultation bilaterally without wheezes or rales. CARDIOVASCULAR: Tachycardic, regular rhythm. S1 and S2 are normal without murmurs, rubs, or gallops. ABDOMEN: Soft, nontender, nondistended. Positive bowel sounds. No evidence of hepatosplenomegaly. Currently, no rebound or guarding noted. RECTAL: Refused. GENITALIA: Refused. EXTREMITIES: Negative for clubbing, cyanosis, or edema. NEUROLOGIC: Cranial nerves II through XII are grossly intact without focal deficits. Motor strength is 5/5 bilaterally intact. Deep tendon reflexes are 2+ plantar. Assessment/Plan Assessment/Plan ASSESSMENT: This is a 37-year-old male with: 1. Abdominal pain. 2. Nausea with vomiting. 3. Diarrhea. 4. Rectal bleeding. 5. Human immunodeficiency virus. 6. Kaposi's sarcoma. 7. Castleman's disease. 8. Hepatitis B. 9. Clostridium difficile diarrhea 10. Severe anemia-blood loss 11. Thrombocytopenia TREATMENT: 1. Abdominal pain/nausea/vomiting/rectal bleeding. The patient has history of Clostridium difficile, which was resistant to Flagyl. An Infectious Diseases consultation has been obtained with Dr. Mendoza. A Gastroenterology consultation has been obtained with Dr. Michael Grande. Refused GI procedures-see GI note. NON COMPLIANT WITH MEDICAL TREATMENT 2. Human immunodeficiency virus. Continue HAART as above. 3. Kaposi's sarcoma. The patient is status post chemotherapy - see onc note 4. Castleman's disease. Refused biopsy-see heme/onc note. NON COMPLIANT WITH MEDICAL TREATMENT 5. Hepatitis B. 6. Continue oral vancomycin; add flagyl per GI 7. S/P transfusion 5 unit PRBC total; current hgb=7.8 8. V/Q scan 07/15/18. 9. S/P Transfusion 3 units of platelets total; current plt=12,000 10. see Heme/onc consult Adam Padron MD Jul 19, 2018 14:00
--- NOTE | 2018-07-19 14:37 | Nephrology Progress Note ---
Assessment/Plan Problem List: (1) REENA (acute kidney injury) (2) Sinus tachycardia (3) Electrolyte imbalance (4) HIV disease (5) Kaposi disease (6) Sepsis (7) Hepatitis B (8) Hepatitis C (9) Protein-calorie malnutrition, severe Assessment Acute renal failure Cr 1.2 up to 2 Acute worsening Anemia Hgb 8.5 to mid 6 severe hypoalbuminemia / Malnutrition Hypotensive / Tachycardia / Sepsis Plan LONG DISCUSSION WITH [facility] OFFERED POOR PROGNOSIS DISCUSSED MOM DECLINED DIALYSIS patricia , Renal diet Phos binders consider steroids ??? defer to ID Avoid Nephrotoxics as possible ( Bactrim..... urine studies Keep BP over 100 syst monitor renal parameters saline infusion in view of low Urine Na and Low S Na per consultants poor prognosis dialysis if worsens ! Subjective ROS Limited/Unobtainable: No Constitutional: Reports: malaise, weakness Objective Objective Last 24 Hour Vital Signs Date Time Temp Pulse Resp B/P (MAP) Pulse Ox O2 Delivery O2 Flow Rate FiO2 07/19/18 12:00 107 07/19/18 12:00 Nasal Cannula 2.0 07/19/18 08:00 97.9 97 20 108/62 (77) 97 07/19/18 08:00 97 07/19/18 08:00 Nasal Cannula 2.0 07/19/18 07:57 99 Nasal Cannula 2.0 28 07/19/18 04:00 104 07/19/18 04:00 97.2 102 22 91/59 (70) 100 07/19/18 04:00 Nasal Cannula 2.0 07/19/18 00:00 97.8 109 20 103/50 (67) 100 07/19/18 00:00 Nasal Cannula 2.0 07/18/18 23:37 111 07/18/18 20:00 Nasal Cannula 2.0 07/18/18 20:00 97.6 105 20 91/58 (69) 99 07/18/18 19:23 111 07/18/18 17:15 103 97/53 07/18/18 16:00 102 07/18/18 16:00 Room Air 07/18/18 16:00 96.4 121 24 121/68 (85) 98 Intake and Output 07/18/18 07/19/18 19:00 07:00 Intake Total 2756 ml 750 ml Output Total 140 ml 200 ml Balance 2616 ml 550 ml Intake Oral 200 ml 50 ml IV Total 1869 ml 700 ml Blood Product 687 ml Output Urine Total 140 ml 200 ml # Voids 1 1 # Bowel Movements 2 2 Laboratory Tests 07/18/18 15:30: Urine Eosinophils None seen, Urine Random Sodium 44 07/19/18 04:10: White Blood Count 12.5H, Red Blood Count 2.62L, Hemoglobin 7.8L, Hematocrit 22.6L, Mean Corpuscular Volume 86, Mean Corpuscular Hemoglobin 29.7, Mean Corpuscular Hemoglobin Concent 34.4, Red Cell Distribution Width 18.0H, Platelet Count 12L, Mean Platelet Volume 5.9L, Neutrophils (%) (Auto) , Lymphocytes (%) (Auto) , Monocytes (%) (Auto) , Eosinophils (%) (Auto) , Basophils (%) (Auto) , Differential Total Cells Counted 100, Neutrophils % ( Manual) 89H, Lymphocytes % (Manual) 8L, Monocytes % (Manual) 2, Eosinophils % ( Manual) 1, Basophils % (Manual) 0, Band Neutrophils 0, Platelet Estimate DecreasedL, Platelet Morphology Normal, Polychromasia 1+, Anisocytosis 1+, Prothrombin Time 20.4H, Prothromb Time International Ratio 2.0H, Activated Partial Thromboplast Time 99H, Sodium Level 134L, Potassium Level 4.8, Chloride Level 107, Carbon Dioxide Level 15L, Anion Gap 12, Blood Urea Nitrogen 97H, Creatinine 3.6H, Estimat Glomerular Filtration Rate 23.1, Glucose Level 77, Lactic Acid Level 2.30H, Uric Acid 9.4H, Calcium Level 6.2L, Phosphorus Level 8.3H, Magnesium Level 1.8, Total Bilirubin 3.5H, Direct Bilirubin 2.6H, Aspartate Amino Transf (AST/SGOT) 48H, Alanine Aminotransferase (ALT/SGPT) 9L, Alkaline Phosphatase 152H, C-Reactive Protein, Quantitative 23.4H, Pro-B-Type Natriuretic Peptide 30351M, Total Protein 4.1L, Albumin 1.0L, Globulin 3.1, Albumin/Globulin Ratio 0.3L 07/19/18 04:50: Stool Occult Blood Positive Height (Feet): 6 Height (Inches): 0.00 Weight (Pounds): 142 General Appearance: no apparent distress Objective no change Adam Aguiar MD Jul 19, 2018 14:37
[2018-07-19 16:00] VITALS: BP 93/59
--- NOTE | 2018-07-19 16:38 | NUR ---
NURSE NOTES: 1 prbc given per order by dr santos. no allergic reaction noted. will continue to monitor.
[2018-07-19] MEDS: Midodrine 10mg tab ORAL SCH (17:24)
[2018-07-19] MEDS: D5NS 1,000 ML IV SCH (18:20)
--- NOTE | 2018-07-19 19:05 | NUR ---
NURSE NOTES: Pt report received from Aretha JOSHUA. pt appears to be in stable condition as he is resting in bed watching TV. no distress noted at this time bed is placed in safety position. will continue plan of care.
--- NOTE | 2018-07-19 19:17 | NUR ---
NURSE NOTES: report given to rosita melchor.
--- NOTE | 2018-07-19 19:34 | NUR ---
HAND-OFF: Report given to rosita melchor.
[2018-07-19 20:00] VITALS: BP 91/54
[2018-07-19] MEDS: Dyna-Hex 2% Top Sol 2oz TOPIC SCH (21:24)
[2018-07-20] VITALS: BP 87/57
--- NOTE | 2018-07-20 | NUR ---
NURSE NOTES: Received patient report from Fermin Bowling RN. Patient in bed asleep but easily awakened. In not apparent distress. St at 104 on cardiac sonographer. 1 unit of platelets infused. Will continue to monitor.
--- NOTE | 2018-07-20 01:00 | NUR ---
HAND-OFF: Report given to Tino Guerra RN. Addendum: 07/20/18 at 0503 by HELADIO BUNCH RN HAND-OFF: Report given to Tino Guerra RN.
[2018-07-20 03:50] VITALS: BP 85/58
[2018-07-20 04:47] LABS: HEMATOCRIT 22.4 % (42.0-52.0); HEMOGLOBIN 7.8 G/DL (14.2-18.0); MEAN CORPUSCULAR VOLUME 87 FL (80-99); PLATELET COUNT 19 K/UL (150-450); RED BLOOD COUNT 2.56 M/UL (4.70-6.10); WHITE BLOOD COUNT 11.4 K/UL (4.8-10.8)
[2018-07-20 05:39] LABS: ALANINE AMINOTRANSFERASE 8 U/L (12-78); ALBUMIN 0.9 G/DL (3.4-5.0); ALBUMIN/GLOBULIN RATIO 0.3 (1.0-2.7); ALKALINE PHOSPHATASE 201 U/L (46-116); ANION GAP 13 mmol/L (5-15); ASPARTATE AMINO TRANSFERASE 37 U/L (15-37); BILIRUBIN,TOTAL 4.8 MG/DL (0.2-1.0); BLOOD UREA NITROGEN 109 mg/dL (7-18); CALCIUM 6.4 MG/DL (8.5-10.1); CARBON DIOXIDE 14 MMOL/L (21-32); CHLORIDE 110 MMOL/L (98-107); CREATININE 4.2 MG/DL (0.55-1.30); PHOSPHORUS 8.7 MG/DL (2.5-4.9); POTASSIUM 4.9 MMOL/L (3.5-5.1); SODIUM 137 MMOL/L (136-145)
[2018-07-20 07:07] LABS: BILIRUBIN,DIRECT 3.9 MG/DL (0.0-0.3)
--- NOTE | 2018-07-20 07:20 | NUR ---
HAND-OFF: Report given to Shireen BLACK.
--- NOTE | 2018-07-20 07:30 | NUR ---
NURSE NOTES: Report received from Tino Martel RN.Pt resting in bed awake,alert appears very weak,can barely talk,answers appropriately,noted no resp distress,no signs of pain or discomfort,SR on the monitor,IV site to [facility] PICC line intact,with IVF D5 NS at 50 ml/hr,,Nguyen cath intact,,skin warm and dry,SR up x2,call thao within reach at bedside,HOB elevated,bed lock in loest position,will continue with plans of care.
[2018-07-20 08:00] VITALS: BP 87/63
--- NOTE | 2018-07-20 08:21 | NUR ---
RADIOLOGY: PCXR COMPLETED 0800 HRS. NF
[2018-07-20] MEDS: Metoprolol 25mg tab ORAL SCH (09:00)
--- NOTE | 2018-07-20 09:18 | Nephrology Progress Note ---
Assessment/Plan Problem List: (1) REENA (acute kidney injury) (2) Sinus tachycardia (3) Electrolyte imbalance (4) HIV disease (5) Kaposi disease (6) Sepsis (7) Hepatitis B (8) Hepatitis C (9) Protein-calorie malnutrition, severe Assessment Acute renal failure Cr 1.2 up to 2 Acute worsening Anemia Hgb 8.5 to mid 6 severe hypoalbuminemia / Malnutrition Hypotensive / Tachycardia / Sepsis Plan 07/19/18 LONG DISCUSSION WITH [facility] OFFERED POOR PROGNOSIS DISCUSSED MOM DECLINED DIALYSIS Favor comfort care gomez , Renal diet Phos binders consider steroids ??? defer to ID Avoid Nephrotoxics as possible ( Bactrim..... urine studies Keep BP over 100 syst monitor renal parameters saline infusion in view of low Urine Na and Low S Na per consultants poor prognosis Subjective ROS Limited/Unobtainable: No Constitutional: Reports: malaise, weakness Objective Objective Last 24 Hour Vital Signs Date Time Temp Pulse Resp B/P (MAP) Pulse Ox O2 Delivery O2 Flow Rate FiO2 07/20/18 04:00 102 07/20/18 04:00 Nasal Cannula 2.0 07/20/18 03:50 97.6 102 20 85/58 (67) 100 07/20/18 00:00 Nasal Cannula 2.0 07/20/18 00:00 104 07/20/18 00:00 98.2 105 20 87/57 (67) 100 07/19/18 20:00 112 07/19/18 20:00 98.1 110 20 91/54 (66) 100 07/19/18 20:00 Nasal Cannula 2.0 07/19/18 19:34 110 07/19/18 19:19 99 Nasal Cannula 2.0 28 07/19/18 17:15 112 93/59 07/19/18 16:00 98.4 111 22 93/59 (70) 99 07/19/18 16:00 112 07/19/18 16:00 Nasal Cannula 2.0 07/19/18 12:00 107 07/19/18 12:00 Nasal Cannula 2.0 07/19/18 12:00 97.9 109 23 91/59 (70) 97 Intake and Output 07/19/18 07/20/18 19:00 07:00 Intake Total 1201 ml 1055 ml Output Total 120 ml 100 ml Balance 1081 ml 955 ml Intake Oral 120 ml IV Total 831 ml 1055 ml Blood Product 250 ml Output Urine Total 120 ml 100 ml # Bowel Movements 4 1 Laboratory Tests 07/20/18 03:30: White Blood Count 11.4H, Red Blood Count 2.56L, Hemoglobin 7.8L, Hematocrit 22.4L, Mean Corpuscular Volume 87, Mean Corpuscular Hemoglobin 30.5, Mean Corpuscular Hemoglobin Concent 35.0, Red Cell Distribution Width 18.0H, Platelet Count 19#L, Mean Platelet Volume 6.6, Neutrophils (%) (Auto) , Lymphocytes (%) (Auto) , Monocytes (%) (Auto) , Eosinophils (%) (Auto) , Basophils (%) (Auto) , Differential Total Cells Counted 100, Neutrophils % ( Manual) 87H, Lymphocytes % (Manual) 7L, Monocytes % (Manual) 3, Eosinophils % ( Manual) 3, Basophils % (Manual) 0, Band Neutrophils 0, Nucleated Red Blood Cells 4, Platelet Estimate DecreasedL, Platelet Morphology Normal, Hypochromasia 3+, Anisocytosis 2+, Spherocytes 3+, Sodium Level 137, Potassium Level 4.9, Chloride Level 110H, Carbon Dioxide Level 14L, Anion Gap 13, Blood Urea Nitrogen 109H, Creatinine 4.2H, Estimat Glomerular Filtration Rate 19.4, Glucose Level 68L, Calcium Level 6.4L, Phosphorus Level 8.7H, Magnesium Level 2.0, Total Bilirubin 4.8H, Direct Bilirubin 3.9H, Aspartate Amino Transf (AST/ SGOT) 37, Alanine Aminotransferase (ALT/SGPT) 8L, Alkaline Phosphatase 201H, Total Protein 3.9L, Albumin 0.9L, Globulin 3.0, Albumin/Globulin Ratio 0.3L Height (Feet): 6 Height (Inches): 0.00 Weight (Pounds): 142 General Appearance: confused Cardiovascular: tachycardia Respiratory/Chest: decreased breath sounds Abdomen: distended Objective no change Adam Aguiar MD Jul 20, 2018 09:18
--- NOTE | 2018-07-20 09:37 | GI Progress Note ---
Assessment/Plan Problems: (1) Hepatitis C ICD Codes: B19.20 - Unspecified viral hepatitis C without hepatic coma SNOMED: 15845773 (2) Cyclic vomiting syndrome ICD Codes: G43.A0 - Cyclical vomiting, not intractable SNOMED: 51162121 (3) Kaposi disease ICD Codes: Q82.1 - Xeroderma pigmentosum SNOMED: 45614487 (4) Dehydration ICD Codes: E86.0 - Dehydration SNOMED: 79540323 (5) Electrolyte imbalance ICD Codes: E87.8 - Other disorders of electrolyte and fluid balance, not elsewhere classified SNOMED: 126456478 (6) Anemia ICD Codes: D64.9 - Anemia, unspecified SNOMED: 310051632 Qualifiers: Qualified Codes: D64.9 - Anemia, unspecified (7) Nausea, vomiting, and diarrhea ICD Codes: R11.2 - Nausea with vomiting, unspecified; R19.7 - Diarrhea, unspecified SNOMED: 0574186 Status: unchanged Status Narrative Discussed with Dr. Grande Assessment/Plan Patient agreed to EGD and colonoscopy, to be scheduled for tomorrow Clear liquid diet today, n.p.o. at midnight cdiff positive, dc protonix IV/PO hydration + electrolyte correction zofran prn monitor H&H, prn transfusions, on po vanco will and iv flagyl recommend dc other abx if ok with ID on marinol follow labs poor prognosis The patient was seen and examined at bedside and all new and available data was reviewed in the patients chart. I agree with the above findings, impression and plan. (Patient seen earlier today. Signature stamp does not reflect patient encounter time.). - Michael Grande MD Subjective Subjective Generalized pain Objective Last 24 Hour Vital Signs Date Time Temp Pulse Resp B/P (MAP) Pulse Ox O2 Delivery O2 Flow Rate FiO2 07/20/18 04:00 102 07/20/18 04:00 Nasal Cannula 2.0 07/20/18 03:50 97.6 102 20 85/58 (67) 100 07/20/18 00:00 Nasal Cannula 2.0 07/20/18 00:00 104 07/20/18 00:00 98.2 105 20 87/57 (67) 100 07/19/18 20:00 112 07/19/18 20:00 98.1 110 20 91/54 (66) 100 07/19/18 20:00 Nasal Cannula 2.0 07/19/18 19:34 110 07/19/18 19:19 99 Nasal Cannula 2.0 28 07/19/18 17:15 112 93/59 07/19/18 16:00 98.4 111 22 93/59 (70) 99 07/19/18 16:00 112 07/19/18 16:00 Nasal Cannula 2.0 07/19/18 12:00 107 07/19/18 12:00 Nasal Cannula 2.0 07/19/18 12:00 97.9 109 23 91/59 (70) 97 Intake and Output 07/19/18 07/20/18 19:00 07:00 Intake Total 1201 ml 1055 ml Output Total 120 ml 100 ml Balance 1081 ml 955 ml Intake Oral 120 ml IV Total 831 ml 1055 ml Blood Product 250 ml Output Urine Total 120 ml 100 ml # Bowel Movements 4 1 Laboratory Tests Test 07/20/18 03:30 White Blood Count 11.4 K/UL (4.8-10.8) H Red Blood Count 2.56 M/UL (4.70-6.10) L Hemoglobin 7.8 G/DL (14.2-18.0) L Hematocrit 22.4 % (42.0-52.0) L Mean Corpuscular Volume 87 FL (80-99) Mean Corpuscular Hemoglobin 30.5 PG (27.0-31.0) Mean Corpuscular Hemoglobin Concent 35.0 G/DL (32.0-36.0) Red Cell Distribution Width 18.0 % (11.6-14.8) H Platelet Count 19 K/UL (150-450) #L Mean Platelet Volume 6.6 FL (6.5-10.1) Neutrophils (%) (Auto) % (45.0-75.0) Lymphocytes (%) (Auto) % (20.0-45.0) Monocytes (%) (Auto) % (1.0-10.0) Eosinophils (%) (Auto) % (0.0-3.0) Basophils (%) (Auto) % (0.0-2.0) Differential Total Cells Counted 100 Neutrophils % (Manual) 87 % (45-75) H Lymphocytes % (Manual) 7 % (20-45) L Monocytes % (Manual) 3 % (1-10) Eosinophils % (Manual) 3 % (0-3) Basophils % (Manual) 0 % (0-2) Band Neutrophils 0 % (0-8) Nucleated Red Blood Cells 4 /100 WBC Platelet Estimate Decreased L Platelet Morphology Normal Hypochromasia 3+ Anisocytosis 2+ Spherocytes 3+ Sodium Level 137 MMOL/L (136-145) Potassium Level 4.9 MMOL/L (3.5-5.1) Chloride Level 110 MMOL/L (98-107) H Carbon Dioxide Level 14 MMOL/L (21-32) L Anion Gap 13 mmol/L (5-15) Blood Urea Nitrogen 109 mg/dL (7-18) H Creatinine 4.2 MG/DL (0.55-1.30) H Estimat Glomerular Filtration Rate 19.4 mL/min (>60) Glucose Level 68 MG/DL (74-106) L Calcium Level 6.4 MG/DL (8.5-10.1) L Phosphorus Level 8.7 MG/DL (2.5-4.9) H Magnesium Level 2.0 MG/DL (1.8-2.4) Total Bilirubin 4.8 MG/DL (0.2-1.0) H Direct Bilirubin 3.9 MG/DL (0.0-0.3) H Aspartate Amino Transf (AST/SGOT) 37 U/L (15-37) Alanine Aminotransferase (ALT/SGPT) 8 U/L (12-78) L Alkaline Phosphatase 201 U/L (46-116) H Total Protein 3.9 G/DL (6.4-8.2) L Albumin 0.9 G/DL (3.4-5.0) L Globulin 3.0 g/dL Albumin/Globulin Ratio 0.3 (1.0-2.7) L Height (Feet): 6 Height (Inches): 0.00 Weight (Pounds): 142 General Appearance: WD/WN, no apparent distress, alert, thin Cardiovascular: normal rate Respiratory/Chest: normal breath sounds, no respiratory distress Abdominal Exam: normal bowel sounds, non tender, soft Extremities: non-tender Simeon Fall NP Jul 20, 2018 09:37
[2018-07-20] MEDS: Vancomycin oral 125mg/2.5ml ORAL SCH (09:47)
[2018-07-20] MEDS: Midodrine 10mg tab ORAL SCH ×3 (09:47→18:00)
[2018-07-20] MEDS: Renvela 800mg Pkt ORAL SCH (09:49)
[2018-07-20] MEDS: Atovaquone 750mg/5ml Susp ORAL SCH (09:50)
[2018-07-20] MEDS: Dronabinol 2.5mg Cap ORAL SCH ×2 (09:51→18:00)
[2018-07-20] MEDS: DOLUTEGRAVIR 50 MG ORAL SCH (09:54)
[2018-07-20] MEDS: TRUVADA ORAL SCH (09:54)
[2018-07-20] MEDS: Tigecycline 50 MG in NS 110 ML IVPB SCH (09:54)
--- NOTE | 2018-07-20 10:39 | Pulmonology Progress Note ---
Assessment/Plan Problems: (1) Severe sepsis (2) HIV disease (3) Sinus tachycardia (4) Anemia (5) Hepatitis C (6) Hepatitis B (7) Kaposi disease (8) [place]man disease (9) Protein-calorie malnutrition, severe Assessment/Plan receiving lots of blood products Pts. mother, Debbie declined HD. I talked to her and explained about comfort care. pt refused previously excisional LN biopsy. Pt needs to be DNR and comfort care. Subjective ROS Limited/Unobtainable: Yes Interval Events: feeling weak Constitutional: Reports: no symptoms HEENT: Repors: no symptoms Respiratory: Reports: no symptoms Allergies: Coded Allergies: AMOXICILLIN (Verified Allergy, Intermediate, 07/19/18) SEVERE SWELLING & ITCHING AMPICILLIN (Verified Allergy, Intermediate, 07/19/18) SEVERE SWELLING & ITCHING Objective Last 24 Hour Vital Signs Date Time Temp Pulse Resp B/P (MAP) Pulse Ox O2 Delivery O2 Flow Rate FiO2 07/20/18 09:31 99 Nasal Cannula 2.0 28 07/20/18 09:00 96 87/63 07/20/18 04:00 102 07/20/18 04:00 Nasal Cannula 2.0 07/20/18 03:50 97.6 102 20 85/58 (67) 100 07/20/18 00:00 Nasal Cannula 2.0 07/20/18 00:00 104 07/20/18 00:00 98.2 105 20 87/57 (67) 100 07/19/18 20:00 112 07/19/18 20:00 98.1 110 20 91/54 (66) 100 07/19/18 20:00 Nasal Cannula 2.0 07/19/18 19:34 110 07/19/18 19:19 99 Nasal Cannula 2.0 28 07/19/18 17:15 112 93/59 07/19/18 16:00 98.4 111 22 93/59 (70) 99 07/19/18 16:00 112 07/19/18 16:00 Nasal Cannula 2.0 07/19/18 12:00 107 07/19/18 12:00 Nasal Cannula 2.0 07/19/18 12:00 97.9 109 23 91/59 (70) 97 Intake and Output 07/19/18 07/20/18 19:00 07:00 Intake Total 1201 ml 1055 ml Output Total 120 ml 100 ml Balance 1081 ml 955 ml Intake Oral 120 ml IV Total 831 ml 1055 ml Blood Product 250 ml Output Urine Total 120 ml 100 ml # Bowel Movements 4 1 General Appearance: cachetic HEENT: normocephalic, atraumatic Respiratory/Chest: chest wall non-tender, lungs clear Cardiovascular: normal peripheral pulses, normal rate Abdomen: normal bowel sounds, soft, non tender Genitourinary: normal external genitalia Extremities: no clubbing Neurologic/Psychiatric: crew member II-XII grossly normal Microbiology Date/Time Source Procedure Growth Status 07/17/18 13:15 Sputum Induced Gram Stain - Final Complete 07/17/18 13:15 Sputum Culture - Final Liz Albicans Complete Laboratory Tests 07/20/18 03:30: White Blood Count 11.4H, Red Blood Count 2.56L, Hemoglobin 7.8L, Hematocrit 22.4L, Mean Corpuscular Volume 87, Mean Corpuscular Hemoglobin 30.5, Mean Corpuscular Hemoglobin Concent 35.0, Red Cell Distribution Width 18.0H, Platelet Count 19#L, Mean Platelet Volume 6.6, Neutrophils (%) (Auto) , Lymphocytes (%) (Auto) , Monocytes (%) (Auto) , Eosinophils (%) (Auto) , Basophils (%) (Auto) , Differential Total Cells Counted 100, Neutrophils % ( Manual) 87H, Lymphocytes % (Manual) 7L, Monocytes % (Manual) 3, Eosinophils % ( Manual) 3, Basophils % (Manual) 0, Band Neutrophils 0, Nucleated Red Blood Cells 4, Platelet Estimate DecreasedL, Platelet Morphology Normal, Hypochromasia 3+, Anisocytosis 2+, Spherocytes 3+, Sodium Level 137, Potassium Level 4.9, Chloride Level 110H, Carbon Dioxide Level 14L, Anion Gap 13, Blood Urea Nitrogen 109H, Creatinine 4.2H, Estimat Glomerular Filtration Rate 19.4, Glucose Level 68L, Calcium Level 6.4L, Phosphorus Level 8.7H, Magnesium Level 2.0, Total Bilirubin 4.8H, Direct Bilirubin 3.9H, Aspartate Amino Transf (AST/ SGOT) 37, Alanine Aminotransferase (ALT/SGPT) 8L, Alkaline Phosphatase 201H, Total Protein 3.9L, Albumin 0.9L, Globulin 3.0, Albumin/Globulin Ratio 0.3L Current Medications Medications (Trade) Dose Ordered Sig/Yessica Route PRN Reason Start Time Stop Time Status Last Admin Dose Admin Acetaminophen (Tylenol) 650 mg Q4H PRN ORAL Mild Pain/Temp > 100.5 07/19/18 17:45 08/11/18 21:44 07/19/18 17:32 Acetaminophen/ Hydrocodone Bitart ([place] 5/325) 1 tab Q6H PRN ORAL Moderate Pain (Pain Scale 4-6) 07/16/18 20:45 07/23/18 20:44 07/17/18 22:30 Albuterol/ Ipratropium (Albuterol/ Ipratropium) 3 ml Q4HRT PRN HHN sob 07/19/18 09:51 07/24/18 09:50 Atovaquone (Mepron Susp) 1,500 mg DAILY ORAL 07/17/18 12:00 08/16/18 11:59 07/20/18 09:50 Azithromycin (Zithromax) 1,200 mg ONCE A WEEK ORAL 07/16/18 09:00 07/23/18 08:59 07/16/18 10:02 Bisacodyl (Dulcolax) 10 mg ONCE ORAL 07/20/18 16:00 07/20/18 17:00 Chlorhexidine Gluconate (Felipa-Hex 2%) 1 applic DAILY@2000 TOPIC 07/16/18 20:00 08/15/18 19:59 07/19/18 21:24 Dextrose (Dextrose 50%) 25 ml Q30M PRN IV Hypoglycemia 07/13/18 10:15 08/11/18 21:44 Dextrose (Dextrose 50%) 50 ml Q30M PRN IV Hypoglycemia 07/13/18 10:15 08/11/18 21:44 Dextrose/Sodium Chloride 1,000 ml @ 50 mls/hr Q20H IV 07/16/18 11:00 08/15/18 10:59 07/19/18 18:20 Diphenhydramine HCl (Benadryl) 25 mg Q6H PRN ORAL Itching/Pruritis 07/13/18 15:45 08/11/18 21:44 07/15/18 15:08 Dronabinol (Marinol) 5 mg BID ORAL 07/17/18 18:00 08/16/18 17:59 07/20/18 09:51 Metoprolol Tartrate (Lopressor) 25 mg BID ORAL 07/13/18 18:00 08/12/18 07:59 07/16/18 08:54 Metronidazole 100 ml @ 100 mls/hr Q8H IVPB 07/16/18 04:00 07/23/18 03:59 07/20/18 04:14 Midodrine (Pro-Amatine) 10 mg THREE TIMES A DAY ORAL 07/19/18 18:00 08/18/18 17:59 07/20/18 09:47 Mirtazapine (Remeron) 15 mg BEDTIME ORAL 07/13/18 21:00 08/12/18 20:59 07/19/18 21:24 Morphine Sulfate (Morphine Sulfate) 2 mg Q4H PRN IVP Moderate Pain (Pain Scale 4-6) 07/19/18 09:50 07/26/18 09:49 Morphine Sulfate (Morphine Sulfate) 4 mg Q4H PRN IVP Severe Pain (Pain Scale 7-10) 07/16/18 17:45 07/23/18 17:44 Nitroglycerin (Ntg) 0.4 mg Q5M X 3 DOSES PRN SL Prn Chest Pain 07/13/18 10:00 08/11/18 21:44 Ondansetron HCl (Zofran) 4 mg Q6H PRN IVP Nausea & Vomiting 07/13/18 15:45 08/11/18 21:44 07/17/18 22:30 Patient Own Medication (Patient's Own Med) 1 ea DAILY ORAL 07/14/18 09:00 08/13/18 08:59 07/20/18 09:54 Patient Own Medication (Patient's Own Med) 1 ea DAILY ORAL 07/14/18 09:00 08/13/18 08:59 07/20/18 09:54 Polyethylene Glycol/ Electrolytes (Nulytely) 4,000 ml ONCE ORAL 07/20/18 16:00 07/20/18 23:59 Sevelamer Carbonate (Renvela) 1,600 mg THREE TIMES A DAY ORAL 07/18/18 18:00 08/17/18 17:59 07/20/18 09:49 Sodium Phosphate (Fleet's Sodium Phosl Enema) 133 ml ONCE RECTAL 07/20/18 23:00 07/21/18 00:00 Temazepam (Restoril) 15 mg HSPRN PRN ORAL Insomnia 07/19/18 09:50 07/26/18 09:49 Tigecycline 50 mg/ Sodium Chloride 110 ml @ 220 mls/hr EVERY 12 HOURS IVPB 07/17/18 21:00 07/24/18 20:59 07/20/18 09:54 Vancomycin HCl (Firvanq) 125 mg FOUR TIMES A DAY ORAL 07/14/18 13:00 07/25/18 12:59 07/20/18 09:47 Ya Hester MD Jul 20, 2018 10:39
[2018-07-20] MEDS ORDERED: Morphine Sulfate 2mg/ml Inj(IV/IM USE ONLY) IVP PRN (10:45)
--- NOTE | 2018-07-20 11:00 | NUR ---
NURSE NOTES: Pt's mother at bedside,discussed with Dr Hester re discharging pt to home and to be followed up with Hospice.
--- NOTE | 2018-07-20 11:53 | Diagnostic Imaging Report ---
Indication: Dyspnea Comparison: 07/16/2018 A single view chest radiograph was obtained. Findings: Vascular congestion and interstitial edema demonstrated. Bilateral pleural effusions are present. Heart size is stable. IMPRESSION: Worsening CHF. Bilateral pleural effusion
[2018-07-20 12:00] VITALS: BP 96/67
--- NOTE | 2018-07-20 12:17 | Cardiac Electrophysiology PN ---
Assessment/Plan Assessment/Plan 1. Sinus tachycardia with heart rate up to 170s. This is secondary to underlying sepsis. Ruled out for NE. His prior echocardiogram showed ejection fraction of 75% but now 45-50%. No evidence of atrial fibrillation or supraventricular tachycardia. Continue Lopressor 25 bid VQ low probability for PE. HR 80s now 2. History of hypertension. On Lopressor 25 bid 3. HIV. On Truvada. 4. History of Kaposi's sarcoma. 5. History of pancreatitis, hepatitis B, and hepatitis C. 6. Severe anemia, status post transfusion. 7. Severe thrombocytopenia Plt 6 k that improved to 40K 8. Moderate Pulmonary HTN. VQ scan low probability for PE. DW RN Subjective Subjective Heart rate is much better. More alert and comfortable in NAD Objective Last 24 Hour Vital Signs Date Time Temp Pulse Resp B/P (MAP) Pulse Ox O2 Delivery O2 Flow Rate FiO2 07/20/18 09:31 99 Nasal Cannula 2.0 28 07/20/18 09:00 96 87/63 07/20/18 04:00 102 07/20/18 04:00 Nasal Cannula 2.0 07/20/18 03:50 97.6 102 20 85/58 (67) 100 07/20/18 00:00 Nasal Cannula 2.0 07/20/18 00:00 104 07/20/18 00:00 98.2 105 20 87/57 (67) 100 07/19/18 20:00 112 07/19/18 20:00 98.1 110 20 91/54 (66) 100 07/19/18 20:00 Nasal Cannula 2.0 07/19/18 19:34 110 07/19/18 19:19 99 Nasal Cannula 2.0 28 07/19/18 17:15 112 93/59 07/19/18 16:00 98.4 111 22 93/59 (70) 99 07/19/18 16:00 112 07/19/18 16:00 Nasal Cannula 2.0 Intake and Output 07/19/18 07/20/18 18:59 06:59 Intake Total 1251 ml 1055 ml Output Total 120 ml 100 ml Balance 1131 ml 955 ml Intake Oral 120 ml IV Total 881 ml 1055 ml Blood Product 250 ml Output Urine Total 120 ml 100 ml # Bowel Movements 4 1 Laboratory Tests Test 07/20/18 03:30 White Blood Count 11.4 K/UL (4.8-10.8) H Red Blood Count 2.56 M/UL (4.70-6.10) L Hemoglobin 7.8 G/DL (14.2-18.0) L Hematocrit 22.4 % (42.0-52.0) L Mean Corpuscular Volume 87 FL (80-99) Mean Corpuscular Hemoglobin 30.5 PG (27.0-31.0) Mean Corpuscular Hemoglobin Concent 35.0 G/DL (32.0-36.0) Red Cell Distribution Width 18.0 % (11.6-14.8) H Platelet Count 19 K/UL (150-450) #L Mean Platelet Volume 6.6 FL (6.5-10.1) Neutrophils (%) (Auto) % (45.0-75.0) Lymphocytes (%) (Auto) % (20.0-45.0) Monocytes (%) (Auto) % (1.0-10.0) Eosinophils (%) (Auto) % (0.0-3.0) Basophils (%) (Auto) % (0.0-2.0) Differential Total Cells Counted 100 Neutrophils % (Manual) 87 % (45-75) H Lymphocytes % (Manual) 7 % (20-45) L Monocytes % (Manual) 3 % (1-10) Eosinophils % (Manual) 3 % (0-3) Basophils % (Manual) 0 % (0-2) Band Neutrophils 0 % (0-8) Nucleated Red Blood Cells 4 /100 WBC Platelet Estimate Decreased L Platelet Morphology Normal Hypochromasia 3+ Anisocytosis 2+ Spherocytes 3+ Sodium Level 137 MMOL/L (136-145) Potassium Level 4.9 MMOL/L (3.5-5.1) Chloride Level 110 MMOL/L (98-107) H Carbon Dioxide Level 14 MMOL/L (21-32) L Anion Gap 13 mmol/L (5-15) Blood Urea Nitrogen 109 mg/dL (7-18) H Creatinine 4.2 MG/DL (0.55-1.30) H Estimat Glomerular Filtration Rate 19.4 mL/min (>60) Glucose Level 68 MG/DL (74-106) L Calcium Level 6.4 MG/DL (8.5-10.1) L Phosphorus Level 8.7 MG/DL (2.5-4.9) H Magnesium Level 2.0 MG/DL (1.8-2.4) Total Bilirubin 4.8 MG/DL (0.2-1.0) H Direct Bilirubin 3.9 MG/DL (0.0-0.3) H Aspartate Amino Transf (AST/SGOT) 37 U/L (15-37) Alanine Aminotransferase (ALT/SGPT) 8 U/L (12-78) L Alkaline Phosphatase 201 U/L (46-116) H Total Protein 3.9 G/DL (6.4-8.2) L Albumin 0.9 G/DL (3.4-5.0) L Globulin 3.0 g/dL Albumin/Globulin Ratio 0.3 (1.0-2.7) L Microbiology Date/Time Source Procedure Growth Status 07/17/18 13:15 Sputum Induced Gram Stain - Final Complete 07/17/18 13:15 Sputum Culture - Final Liz Albicans Complete Objective HEAD AND NECK: No jugular venous distention. LUNGS: Clear. CARDIOVASCULAR: Regular S1, S2 with no gallop or murmur. ABDOMEN: Soft. EXTREMITIES: No pitting edema. Toney Howe MD Jul 20, 2018 12:17
[2018-07-20] MEDS ORDERED: MIRTAZAPINE15 M3 ORAL (12:27)
[2018-07-20] MEDS ORDERED: MORPHINE S10 MG/5 ML ORAL (12:27)
--- NOTE | 2018-07-20 12:30 | Hematology/Onc Progress Note ---
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 Hx of HIV, CD4 count very low. He has a very poor memory, says was treated at [facility] S/P Chemo ending 07/17/17. Last PET 08/12 - show stable/not worsening lymphadenopathy. Has very extensive disease on ct scan lympahdenopathy noted throughout, final results of axilla lymphadenopathy biopsy on 05/25/18, and FINAL results from prior admission are nondiagnostic --> I talked with him regarding getting potentially another biopsy (bulky lymph node v bone marrow biopsy) he has thus far refused -- HE HAS BEEN NONCOMPLIANT --> He has also been refusing HD, mother refused hemodialysis --> IL-6 was 54 in the past --> inflammatory makers are elevated which can be c/w flare but are fairly non- specific --> imaging is ordered as well --> outpatient f/u as well for futher therapy prn --> treat underlying HIV as per ID service --> plt trend 39-->34-->25-->26k-->23k-->15k-->9k-->41k-->12k-->19k --> Plt transfusion hx: 1 unit on 07/16 --> Minimize further labs, on COMFORT CARE # Anemia of chronic disease -- workup has been reviewed --> esr elevated, as is crp --> transfuse if hgb <7 => hgb trend 7.5-->7.4-->7.8-->6.7-->8-->7.9-->7.8 --> transfuse 2u prbc 07/15, 1 unit PRBC 07/18, # Anemia of folic acid deficiency --> start patient on folic acid 1mg po daily, continue given low levels # DVT hx that was diagnosed at outpatient hospital --> inpatient venous duplex is negative for thromboembolism, therefore DOES not require anticoagulants --> have discussed this with patients and patient's mother # Sepsis - PNA, [place], other infection, TB? --> on HIV meds, abx as needed --> continue as per ID # HIV - On Tivicay and Truvada and Bactrim, CD4 count 64 --> VL pending, CD4 count ordered <100 --> IL-6 is 51 # REENA cr 1.2-->1.1 # COMFORT CARE The timing of this note does not necessarily reflect the time of the patient was seen. Greatly appreciate consultation. Subjective Constitutional: Denies: no symptoms, chills, fever, malaise, weakness, other HEENT: Denies: no symptoms, eye pain, blurred vision, tearing, double vision, ear pain, ear discharge, nose pain, nose congestion, throat pain, throat swelling, mouth pain, mouth swelling, other Cardiovascular: Denies: no symptoms, chest pain, edema, irregular heart rate, lightheadedness, palpitations, syncope, other Respiratory: Denies: no symptoms, cough, shortness of breath, SOB with excertion, SOB at rest, sputum, wheezing, other Gastrointestinal/Abdominal: Denies: no symptoms, abdomen distended, abdominal pain, black stools, tarry stools, blood in stool, constipated, diarrhea, difficulty swallowing, nausea, poor appetite, poor fluid intake, rectal bleeding , vomiting, other Genitourinary: Denies: no symptoms, burning, discharge, frequency, flank pain, hematuria, incontinence, pain, urgency, other Neurologic/Psychiatric: Denies: no symptoms, anxiety, depressed, emotional problems, headache, numbness, paresthesia, pre-existing deficit, seizure, tingling, tremors, weakness, other Endocrine: Denies: no symptoms, excessive sweating, flushing, intolerance to cold, intolerance to heat, increased hunger, increased thirst, increased urine, unexplained weight gain, unexplained weight loss, other Hematologic/Lymphatic: Denies: no symptoms, anemia, easy bleeding, easy bruising, adenopathy, other Allergies: Coded Allergies: AMOXICILLIN (Verified Allergy, Intermediate, 07/19/18) SEVERE SWELLING & ITCHING AMPICILLIN (Verified Allergy, Intermediate, 07/19/18) SEVERE SWELLING & ITCHING Subjective 07/16: no events noted, no f/c, plt count 6k, again stressed importance of a bone marrow biopsy, he refused 07/17: Plt transfusion completed.Current Plt count of 41. 6/2: Pt noted to have bloody stool. Hgb at 7.8, 1 unit PRBC has been ordered. Afebrile. 07/20: no events, mother refusing HD, also refusing blood products, placed on comfort care Objective Objective Current Medications Medications (Trade) Dose Ordered Sig/Yessica Route PRN Reason Start Time Stop Time Status Last Admin Dose Admin Acetaminophen (Tylenol) 650 mg Q4H PRN ORAL Mild Pain/Temp > 100.5 07/19/18 17:45 08/11/18 21:44 07/19/18 17:32 Acetaminophen/ Hydrocodone Bitart ([place] 5/325) 1 tab Q6H PRN ORAL Moderate Pain (Pain Scale 4-6) 07/16/18 20:45 07/23/18 20:44 07/17/18 22:30 Albuterol/ Ipratropium (Albuterol/ Ipratropium) 3 ml Q4HRT PRN HHN sob 07/19/18 09:51 07/24/18 09:50 Bisacodyl (Dulcolax) 10 mg ONCE ORAL 07/20/18 16:00 07/20/18 17:00 Chlorhexidine Gluconate (Felipa-Hex 2%) 1 applic DAILY@2000 TOPIC 07/16/18 20:00 08/15/18 19:59 07/19/18 21:24 Dextrose (Dextrose 50%) 25 ml Q30M PRN IV Hypoglycemia 07/13/18 10:15 08/11/18 21:44 Dextrose (Dextrose 50%) 50 ml Q30M PRN IV Hypoglycemia 07/13/18 10:15 08/11/18 21:44 Dextrose/Sodium Chloride 1,000 ml @ 50 mls/hr Q20H IV 07/16/18 11:00 08/15/18 10:59 07/19/18 18:20 Diphenhydramine HCl (Benadryl) 25 mg Q6H PRN ORAL Itching/Pruritis 07/13/18 15:45 08/11/18 21:44 07/15/18 15:08 Dronabinol (Marinol) 5 mg BID ORAL 07/17/18 18:00 08/16/18 17:59 07/20/18 09:51 Midodrine (Pro-Amatine) 10 mg THREE TIMES A DAY ORAL 6/2/19 18:00 08/18/18 17:59 07/20/18 09:47 Mirtazapine (Remeron) 15 mg BEDTIME ORAL 07/13/18 21:00 08/12/18 20:59 07/19/18 21:24 Morphine Sulfate (Morphine Sulfate) 2 mg Q4H PRN IVP MODERATE PAIN 07/20/18 10:45 07/27/18 10:44 07/20/18 11:05 Ondansetron HCl (Zofran) 4 mg Q6H PRN IVP Nausea & Vomiting 07/13/18 15:45 08/11/18 21:44 07/17/18 22:30 Polyethylene Glycol/ Electrolytes (Nulytely) 4,000 ml ONCE ORAL 07/20/18 16:00 07/20/18 23:59 Last 24 Hour Vital Signs Date Time Temp Pulse Resp B/P (MAP) Pulse Ox O2 Delivery O2 Flow Rate FiO2 07/20/18 09:31 99 Nasal Cannula 2.0 28 07/20/18 09:00 96 87/63 07/20/18 04:00 102 07/20/18 04:00 Nasal Cannula 2.0 07/20/18 03:50 97.6 102 20 85/58 (67) 100 07/20/18 00:00 Nasal Cannula 2.0 07/20/18 00:00 104 07/20/18 00:00 98.2 105 20 87/57 (67) 100 07/19/18 20:00 112 07/19/18 20:00 98.1 110 20 91/54 (66) 100 07/19/18 20:00 Nasal Cannula 2.0 07/19/18 19:34 110 07/19/18 19:19 99 Nasal Cannula 2.0 28 07/19/18 17:15 112 93/59 07/19/18 16:00 98.4 111 22 93/59 (70) 99 07/19/18 16:00 112 07/19/18 16:00 Nasal Cannula 2.0 07/19/18 12:00 107 07/19/18 12:00 Nasal Cannula 2.0 07/19/18 12:00 97.9 109 23 91/59 (70) 97 07/19/18 08:00 97.9 97 20 108/62 (77) 97 07/19/18 08:00 97 07/19/18 08:00 Nasal Cannula 2.0 07/19/18 07:57 99 Nasal Cannula 2.0 28 07/19/18 04:00 104 07/19/18 04:00 97.2 102 22 91/59 (70) 100 07/19/18 04:00 Nasal Cannula 2.0 07/19/18 00:00 97.8 109 20 103/50 (67) 100 07/19/18 00:00 Nasal Cannula 2.0 07/18/18 23:37 111 07/18/18 20:00 Nasal Cannula 2.0 07/18/18 20:00 97.6 105 20 91/58 (69) 99 07/18/18 19:23 111 07/18/18 17:15 103 97/53 07/18/18 16:00 102 07/18/18 16:00 Room Air 07/18/18 16:00 96.4 121 24 121/68 (85) 98 Intake and Output 07/19/18 07/20/18 18:59 06:59 Intake Total 1251 ml 1055 ml Output Total 120 ml 100 ml Balance 1131 ml 955 ml Intake Oral 120 ml IV Total 881 ml 1055 ml Blood Product 250 ml Output Urine Total 120 ml 100 ml # Bowel Movements 4 1 Labs Test 07/17/18 14:45 07/18/18 05:00 07/18/18 15:30 07/19/18 04:10 White Blood Count 15.6 K/UL (4.8-10.8) 15.6 K/UL (4.8-10.8) 12.5 K/UL (4.8-10.8) Red Blood Count 2.33 M/UL (4.70-6.10) 2.43 M/UL (4.70-6.10) 2.62 M/UL (4.70-6.10) Hemoglobin 6.6 G/DL (14.2-18.0) 6.9 G/DL (14.2-18.0) 7.8 G/DL (14.2-18.0) Hematocrit 19.7 % (42.0-52.0) 20.4 % (42.0-52.0) 22.6 % (42.0-52.0) Mean Corpuscular Volume 85 FL (80-99) 84 FL (80-99) 86 FL (80-99) Mean Corpuscular Hemoglobin 28.4 PG (27.0-31.0) 28.6 PG (27.0-31.0) 29.7 PG (27.0-31.0) Mean Corpuscular Hemoglobin Concent 33.6 G/DL (32.0-36.0) 34.1 G/DL (32.0-36.0) 34.4 G/DL (32.0-36.0) Red Cell Distribution Width 18.5 % (11.6-14.8) 16.8 % (11.6-14.8) 18.0 % (11.6-14.8) Platelet Count 12 K/UL (150-450) 13 K/UL (150-450) 12 K/UL (150-450) Mean Platelet Volume 8.2 FL (6.5-10.1) 7.6 FL (6.5-10.1) 5.9 FL (6.5-10.1) Neutrophils (%) (Auto) % (45.0-75.0) % (45.0-75.0) % (45.0-75.0) Lymphocytes (%) (Auto) % (20.0-45.0) % (20.0-45.0) % (20.0-45.0) Monocytes (%) (Auto) % (1.0-10.0) % (1.0-10.0) % (1.0-10.0) Eosinophils (%) (Auto) % (0.0-3.0) % (0.0-3.0) % (0.0-3.0) Basophils (%) (Auto) % (0.0-2.0) % (0.0-2.0) % (0.0-2.0) Differential Total Cells Counted 100 100 100 Neutrophils % (Manual) 78 % (45-75) 87 % (45-75) 89 % (45-75) Lymphocytes % (Manual) 9 % (20-45) 8 % (20-45) 8 % (20-45) Monocytes % (Manual) 3 % (1-10) 3 % (1-10) 2 % (1-10) Eosinophils % (Manual) 2 % (0-3) 2 % (0-3) 1 % (0-3) Basophils % (Manual) 0 % (0-2) 0 % (0-2) 0 % (0-2) Band Neutrophils 8 % (0-8) 0 % (0-8) 0 % (0-8) Nucleated Red Blood Cells 7 /100 WBC 7 /100 WBC Platelet Estimate Decreased Decreased Decreased Platelet Morphology Normal Normal Normal Polychromasia 1+ 2+ 1+ Hypochromasia 2+ 1+ Anisocytosis 1+ 1+ 1+ Sodium Level 131 MMOL/L (136-145) 133 MMOL/L (136-145) 134 MMOL/L (136-145) Potassium Level 4.3 MMOL/L (3.5-5.1) 4.5 MMOL/L (3.5-5.1) 4.8 MMOL/L (3.5-5.1) Chloride Level 104 MMOL/L (98-107) 105 MMOL/L (98-107) 107 MMOL/L (98-107) Carbon Dioxide Level 15 MMOL/L (21-32) 13 MMOL/L (21-32) 15 MMOL/L (21-32) Anion Gap 12 mmol/L (5-15) 15 mmol/L (5-15) 12 mmol/L (5-15) Blood Urea Nitrogen 74 mg/dL (7-18) 76 mg/dL (7-18) 97 mg/dL (7-18) Creatinine 3.1 MG/DL (0.55-1.30) 3.3 MG/DL (0.55-1.30) 3.6 MG/DL (0.55-1.30) Estimat Glomerular Filtration Rate 27.5 mL/min (>60) 25.6 mL/min (>60) 23.1 mL/min (>60) Glucose Level 90 MG/DL (74-106) 92 MG/DL (74-106) 77 MG/DL (74-106) Calcium Level 6.2 MG/DL (8.5-10.1) 6.1 MG/DL (8.5-10.1) 6.2 MG/DL (8.5-10.1) Erythrocyte Sedimentation Rate 86 MM/HR (0-15) Phosphorus Level 7.8 MG/DL (2.5-4.9) 8.3 MG/DL (2.5-4.9) Magnesium Level 1.6 MG/DL (1.8-2.4) 1.8 MG/DL (1.8-2.4) Total Bilirubin 2.0 MG/DL (0.2-1.0) 3.5 MG/DL (0.2-1.0) Direct Bilirubin 1.3 MG/DL (0.0-0.3) 2.6 MG/DL (0.0-0.3) Aspartate Amino Transf (AST/SGOT) 68 U/L (15-37) 48 U/L (15-37) Alanine Aminotransferase (ALT/SGPT) 22 U/L (12-78) 9 U/L (12-78) Alkaline Phosphatase 92 U/L (46-116) 152 U/L (46-116) C-Reactive Protein, Quantitative 22.1 mg/dL (0.00-0.90) 23.4 mg/dL (0.00-0.90) Total Protein 4.1 G/DL (6.4-8.2) 4.1 G/DL (6.4-8.2) Albumin 0.8 G/DL (3.4-5.0) 1.0 G/DL (3.4-5.0) Globulin 3.3 g/dL 3.1 g/dL Albumin/Globulin Ratio 0.2 (1.0-2.7) 0.3 (1.0-2.7) Urine Eosinophils None seen (NONE SEEN) Urine Random Sodium 44 mmol/L (20-110) Prothrombin Time 20.4 SEC (9.30-11.50) Prothromb Time International Ratio 2.0 (0.9-1.1) Activated Partial Thromboplast Time 99 SEC (23-33) Lactic Acid Level 2.30 mmol/L (0.4-2.0) Uric Acid 9.4 MG/DL (2.6-7.2) Pro-B-Type Natriuretic Peptide 88410 pg/mL (0-125) Test 07/19/18 04:50 07/20/18 03:30 Stool Occult Blood Positive (NEGATIVE) White Blood Count 11.4 K/UL (4.8-10.8) Red Blood Count 2.56 M/UL (4.70-6.10) Hemoglobin 7.8 G/DL (14.2-18.0) Hematocrit 22.4 % (42.0-52.0) Mean Corpuscular Volume 87 FL (80-99) Mean Corpuscular Hemoglobin 30.5 PG (27.0-31.0) Mean Corpuscular Hemoglobin Concent 35.0 G/DL (32.0-36.0) Red Cell Distribution Width 18.0 % (11.6-14.8) Platelet Count 19 K/UL (150-450) Mean Platelet Volume 6.6 FL (6.5-10.1) Neutrophils (%) (Auto) % (45.0-75.0) Lymphocytes (%) (Auto) % (20.0-45.0) Monocytes (%) (Auto) % (1.0-10.0) Eosinophils (%) (Auto) % (0.0-3.0) Basophils (%) (Auto) % (0.0-2.0) Differential Total Cells Counted 100 Neutrophils % (Manual) 87 % (45-75) Lymphocytes % (Manual) 7 % (20-45) Monocytes % (Manual) 3 % (1-10) Eosinophils % (Manual) 3 % (0-3) Basophils % (Manual) 0 % (0-2) Band Neutrophils 0 % (0-8) Nucleated Red Blood Cells 4 /100 WBC Platelet Estimate Decreased Platelet Morphology Normal Hypochromasia 3+ Anisocytosis 2+ Spherocytes 3+ Sodium Level 137 MMOL/L (136-145) Potassium Level 4.9 MMOL/L (3.5-5.1) Chloride Level 110 MMOL/L (98-107) Carbon Dioxide Level 14 MMOL/L (21-32) Anion Gap 13 mmol/L (5-15) Blood Urea Nitrogen 109 mg/dL (7-18) Creatinine 4.2 MG/DL (0.55-1.30) Estimat Glomerular Filtration Rate 19.4 mL/min (>60) Glucose Level 68 MG/DL (74-106) Calcium Level 6.4 MG/DL (8.5-10.1) Phosphorus Level 8.7 MG/DL (2.5-4.9) Magnesium Level 2.0 MG/DL (1.8-2.4) Total Bilirubin 4.8 MG/DL (0.2-1.0) Direct Bilirubin 3.9 MG/DL (0.0-0.3) Aspartate Amino Transf (AST/SGOT) 37 U/L (15-37) Alanine Aminotransferase (ALT/SGPT) 8 U/L (12-78) Alkaline Phosphatase 201 U/L (46-116) Total Protein 3.9 G/DL (6.4-8.2) Albumin 0.9 G/DL (3.4-5.0) Globulin 3.0 g/dL Albumin/Globulin Ratio 0.3 (1.0-2.7) Height (Feet): 6 Height (Inches): 0.00 Weight (Pounds): 142 Objective Physical Exam: Vitals: reviewed General Appearance: NAD HEENT: normocephalic, atraumatic, ++ confused Neck: non-tender, normal alignment Respiratory/Chest: normal breath sounds bilaterally Cardiovascular/Chest: normal peripheral pulses, normal rate Abdomen: normal bowel sounds, soft, nontender Extremities: normal range of motion Jean Bingham MD Jul 20, 2018 12:30
[2018-07-20] MEDS: D5NS 1,000 ML IV SCH (15:00)
[2018-07-20 16:00] VITALS: BP 79/58
[2018-07-20] MEDS ORDERED: Bisacodyl EC 5mg tab ORAL SCH (16:00)
[2018-07-20] MEDS ORDERED: Nulytely 4L ORAL SCH (16:00)
--- NOTE | 2018-07-20 16:16 | NUR ---
DC PLANNING PT. ACCEPTED BY [facility]
--- NOTE | 2018-07-20 17:17 | Infectious Diseases Prog Note ---
Assessment/Plan Assessment/Plan Assessment/Plan Sepsis- 2ry to Cdiff and PNA- r/o bacteremia -07/16 CXR p -07/14 SP cx p -07/12 Bcx NTD CXR: Interval development of consolidation right upper lobe. Decrease in pleural thickening when compared to prior study Low grade fever, SP Leukocytosis, increasing Tachycardia- -V/Q scan: Matched heterogeneous tracer distribution. Matched right lower lobe perfusion defect deemed low probability for pulmonary embolus -Echo: Right ventricular enlargement with basal segments akinesia and preserved apical segment, possible Hayes sign suggestive of pulmonary embolism.Aortic valve calcification with normal cusp excursion. Recurrent Cdiff- ?compliance to previous oral vancomycin (while in the hospital he refused some dosages; unclear if finished course at SNF) -07/12 Cdiff + stool cx: normal fecal phi Acute anemia- suspect GIB given melanotic stools Thrombocytopenia REENA on CKD, worsening Diffuse lymphadenopathy/multiple systemic symptoms- Ddx: CMV disease (ie colitis ), Diffuse MAC, recurrente Castleman, HIV related, lymphoma; refused excisional biopsy in the past -05/18 s/p L axillary lymph node biopsy -path fragments of benign lymph node with pronounced polytypic plasmacytosis; focally + HHV8. 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 -05/16/18 CT chest: Mediastinal, axillary, and supraclavicular lymphadenopathy , enlarged compared to the prior CT of the chest. Largest left axillary node measures 3.4 x 2.4 cm. Largest supraclavicular node on the left measures 3.8 x 2.8 cm. Largest mediastinal nodes include a 2.2 x 1.6 cm pretracheal node and a 2.3 x 1.6 cm subcarinal node. Small layering right pleural effusion with fluid in the minor fissure. Kasie-bronchovascular groundglass haziness and nodularity in the right lower lobe. Scattered paraseptal emphysematous changes, predominantly in the upper lung zones. -05/16/18 CT abd/p: Diffuse edema and haziness throughout the mesenteric root. Not significantly changed compared to the visualized portions of the mesenteric root in the prior CT of the chest dated 10/22/17. Mesenteric, retroperitoneal, and inguinal lymphadenopathy. Largest retroperitoneal node measures 3.1 x 2.5 x 2.0 cm to left of the IVC (series 8 image 56, series 10 image 23). Largest left inguinal left node measures 2.9 x 2.5 cm (series 8 image 90). Mild fluid distention and air-fluid levels throughout the colon, which may suggest mild colitis and/or diarrheal disease. No evidence of bowel obstruction. Cholelithiasis without gallbladder wall thickening or ductal dilatation. Scattered subcentimeter hypodensities throughout the spleen, possibly tiny simple cysts. Subcentimeter simple-appearing left renal cortical cysts. Mild urinary bladder wall thickening, most likely related to underdistention. -CT head: . Opacification of the right maxillary sinus, right frontal sinus , and mucosal thickening throughout the ethmoid air cells and left maxillary sinus, suggestive of sinusitis. Partial opacification of the inferior posterior aspect of the left mastoid air cells, suggesting small left mastoid effusion. 04/2018- Cr Ag , T spot, CMV PCR, CMV IgM neg - 10/22/17- CT show reticular opacity and significant lymphadenopathy 10/23/17 - CT abd/pel Lymphadenopathy, Enlarged Pancrease mild B/L hydronephrosis -Blasto, Histo, CrAg neg 11/21/16 - Quantiferon negative (Out Side lab) Recent Cdiff Colitis -06/12 Cdiff toxin A/B + -04/2018 Cdiff neg -stool cx normal phi - O and P neg x3 HIV/AIDS- questionable compliance to ARV (dx 1999)- on Truvada and Dolutegravir 05/2018HIV VL 260, RPR neg, GC/CL neg -04/2018 Cd4 64 (9.1%); VL 100 ?decreased due to non compliance, however low viremia (will expect higher viremia if non compliance) -10/2017 HIV VL ND, CD4 87 (12.4%) -09/01/17 - CD4 192 and VL - ND (Out Side labs) -no hx of resistance ; previously on Truvada, Reyataz and Norvir -Has been above 200 in the past. Came down with Chemo 07/18 US : Extensive scrotal edema. No evidence for abnormality left and right testes or epididymis. Small bilateral hydroceles. hx pancreatitis 10/2017 hx of Kaposi's sarcoma/Castleman's disease s/p chemotherapy - S/P Chemo ending 07/17/17 Last PET 6/26/18 - show stable/not worsening lymphadenopathy Hep C+ -VL ND hx of Chronic Hep B, VL <15 09/01/17 RPR, GC/CL : negative hx of DVT CKD Plan: - all AB Rx was DCed on , now on comfort-care will sign off - Flagyl # 5 per GI - on vancomycin 125mg qid # 7 /-14 .add Tygcail d# 5 - Atovaqune ( PCP PPX) -Continue ARV: TRuvada +Dolutegravir -07/17 Sp IV Vancomycin # 6 ( TCP ) '07/16 Bactrim ( PCP Px) 07/16 Zosyn # 4 ( was stopped for TCP ) -Monitor CBC/CMP, temperatures -Will need excisional biopsy and bone marrow biopsy- high suspicion for recurrence of Castleman's disease - will reattempt once more stabilized- in the past refused twice -f/u CD4 -asked lab to get HIV genotype results that were done last admission -Continue prophylactic Bactrim and weekly Azithromycin for PCP and MAC respectively -GI eval -Heme onc eval -f/u sp cx -CXR 2v am Subjective Allergies: Coded Allergies: AMOXICILLIN (Verified Allergy, Intermediate, 07/19/18) SEVERE SWELLING & ITCHING AMPICILLIN (Verified Allergy, Intermediate, 07/19/18) SEVERE SWELLING & ITCHING Subjective comfortable Objective Vital Signs Last 24 Hour Vital Signs Date Time Temp Pulse Resp B/P (MAP) Pulse Ox O2 Delivery O2 Flow Rate FiO2 07/20/18 16:07 Nasal Cannula 2.0 07/20/18 16:00 86 07/20/18 12:00 Nasal Cannula 2.0 07/20/18 12:00 95.4 91 19 96/67 (77) 98 91 07/20/18 12:00 89 07/20/18 09:31 99 Nasal Cannula 2.0 28 07/20/18 09:00 96 87/63 07/20/18 08:00 Nasal Cannula 2.0 07/20/18 08:00 96.0 87 18 87/63 (71) 100 87 07/20/18 08:00 94 07/20/18 04:00 102 07/20/18 04:00 Nasal Cannula 2.0 07/20/18 03:50 97.6 102 20 85/58 (67) 100 07/20/18 00:00 Nasal Cannula 2.0 07/20/18 00:00 104 07/20/18 00:00 98.2 105 20 87/57 (67) 100 07/19/18 20:00 112 07/19/18 20:00 98.1 110 20 91/54 (66) 100 07/19/18 20:00 Nasal Cannula 2.0 07/19/18 19:34 110 07/19/18 19:19 99 Nasal Cannula 2.0 28 Height (Feet): 6 Height (Inches): 0.00 Weight (Pounds): 142 HEENT: atraumatic Respiratory/Chest: lungs clear Cardiovascular: normal peripheral pulses Abdomen: soft, non tender Laboratory Tests Test 07/20/18 03:30 White Blood Count 11.4 K/UL (4.8-10.8) H Red Blood Count 2.56 M/UL (4.70-6.10) L Hemoglobin 7.8 G/DL (14.2-18.0) L Hematocrit 22.4 % (42.0-52.0) L Mean Corpuscular Volume 87 FL (80-99) Mean Corpuscular Hemoglobin 30.5 PG (27.0-31.0) Mean Corpuscular Hemoglobin Concent 35.0 G/DL (32.0-36.0) Red Cell Distribution Width 18.0 % (11.6-14.8) H Platelet Count 19 K/UL (150-450) #L Mean Platelet Volume 6.6 FL (6.5-10.1) Neutrophils (%) (Auto) % (45.0-75.0) Lymphocytes (%) (Auto) % (20.0-45.0) Monocytes (%) (Auto) % (1.0-10.0) Eosinophils (%) (Auto) % (0.0-3.0) Basophils (%) (Auto) % (0.0-2.0) Differential Total Cells Counted 100 Neutrophils % (Manual) 87 % (45-75) H Lymphocytes % (Manual) 7 % (20-45) L Monocytes % (Manual) 3 % (1-10) Eosinophils % (Manual) 3 % (0-3) Basophils % (Manual) 0 % (0-2) Band Neutrophils 0 % (0-8) Nucleated Red Blood Cells 4 /100 WBC Platelet Estimate Decreased L Platelet Morphology Normal Hypochromasia 3+ Anisocytosis 2+ Spherocytes 3+ Sodium Level 137 MMOL/L (136-145) Potassium Level 4.9 MMOL/L (3.5-5.1) Chloride Level 110 MMOL/L (98-107) H Carbon Dioxide Level 14 MMOL/L (21-32) L Anion Gap 13 mmol/L (5-15) Blood Urea Nitrogen 109 mg/dL (7-18) H Creatinine 4.2 MG/DL (0.55-1.30) H Estimat Glomerular Filtration Rate 19.4 mL/min (>60) Glucose Level 68 MG/DL (74-106) L Calcium Level 6.4 MG/DL (8.5-10.1) L Phosphorus Level 8.7 MG/DL (2.5-4.9) H Magnesium Level 2.0 MG/DL (1.8-2.4) Total Bilirubin 4.8 MG/DL (0.2-1.0) H Direct Bilirubin 3.9 MG/DL (0.0-0.3) H Aspartate Amino Transf (AST/SGOT) 37 U/L (15-37) Alanine Aminotransferase (ALT/SGPT) 8 U/L (12-78) L Alkaline Phosphatase 201 U/L (46-116) H Total Protein 3.9 G/DL (6.4-8.2) L Albumin 0.9 G/DL (3.4-5.0) L Globulin 3.0 g/dL Albumin/Globulin Ratio 0.3 (1.0-2.7) L Current Medications Medications (Trade) Dose Ordered Sig/Yessica Route PRN Reason Start Time Stop Time Status Last Admin Dose Admin Acetaminophen (Tylenol) 650 mg Q4H PRN ORAL Mild Pain/Temp > 100.5 07/19/18 17:45 08/11/18 21:44 07/19/18 17:32 Acetaminophen/ Hydrocodone Bitart (Broadus 5/325) 1 tab Q6H PRN ORAL Moderate Pain (Pain Scale 4-6) 07/16/18 20:45 07/23/18 20:44 07/17/18 22:30 Albuterol/ Ipratropium (Albuterol/ Ipratropium) 3 ml Q4HRT PRN HHN sob 07/19/18 09:51 07/24/18 09:50 Chlorhexidine Gluconate (Felipa-Hex 2%) 1 applic DAILY@2000 TOPIC 07/16/18 20:00 08/15/18 19:59 07/19/18 21:24 Dextrose (Dextrose 50%) 25 ml Q30M PRN IV Hypoglycemia 07/13/18 10:15 08/11/18 21:44 Dextrose (Dextrose 50%) 50 ml Q30M PRN IV Hypoglycemia 07/13/18 10:15 08/11/18 21:44 Dextrose/Sodium Chloride 1,000 ml @ 50 mls/hr Q20H IV 07/16/18 11:00 08/15/18 10:59 07/19/18 18:20 Diphenhydramine HCl (Benadryl) 25 mg Q6H PRN ORAL Itching/Pruritis 07/13/18 15:45 08/11/18 21:44 07/15/18 15:08 Dronabinol (Marinol) 5 mg BID ORAL 07/17/18 18:00 08/16/18 17:59 07/20/18 09:51 Midodrine (Pro-Amatine) 10 mg THREE TIMES A DAY ORAL 07/19/18 18:00 08/18/18 17:59 07/20/18 14:08 Mirtazapine (Remeron) 15 mg BEDTIME ORAL 07/13/18 21:00 08/12/18 20:59 07/19/18 21:24 Morphine Sulfate (Morphine Sulfate) 2 mg Q4H PRN IVP MODERATE PAIN 07/20/18 10:45 07/27/18 10:44 07/20/18 11:05 Ondansetron HCl (Zofran) 4 mg Q6H PRN IVP Nausea & Vomiting 07/13/18 15:45 08/11/18 21:44 07/17/18 22:30 Polyethylene Glycol/ Electrolytes (Nulytely) 4,000 ml ONCE ORAL 07/20/18 16:00 07/20/18 23:59 Jez Mendoza MD Jul 20, 2018 17:17
[2018-07-20] MEDS ORDERED: Tubing Blood Filter IV ONE (17:29)
[2018-07-20] MEDS ORDERED: Tubing IV Secondary IV ONE (17:29)
[2018-07-20] MEDS ORDERED: NS 275ml ONE (17:29)
--- NOTE | 2018-07-20 17:30 | NUR ---
NURSE NOTES: Pt discharged and out of the unit accompanied by [facility] awake,alert in no distress,Nguyen cath removed with out trauma,scrotum remains very enlarged and swollen and tender.PICC line to [place] removed,pressure dressing applied,no bleeding noted.Pt discharged to home with Hospice.
--- NOTE | 2018-07-20 18:59 | Internal Med Progress Note ---
Subjective Date of Service: Jul 20, 2018 Physician Name Adam Padron Attending Physician Alberto Gtz MD Allergies: Coded Allergies: AMOXICILLIN (Verified Allergy, Intermediate, 07/19/18) SEVERE SWELLING & ITCHING AMPICILLIN (Verified Allergy, Intermediate, 07/19/18) SEVERE SWELLING & ITCHING ROS Limited/Unobtainable: No Constitutional: Reports: no symptoms HEENT: Reports: no symptoms Cardiovascular: Reports: no symptoms Respiratory: Reports: no symptoms Gastrointestinal/Abdominal: Reports: no symptoms Genitourinary: Reports: no symptoms Neurologic/Psychiatric: Reports: no symptoms Subjective 37 YO M with HIV admitted with abdominal pain, nausea and vomiting. Now clostridium difficile diarrhea. Cover for Int Med-Dr Gtz. SOFIA Objective Last Vital Signs Date Time Temp Pulse Resp B/P (MAP) Pulse Ox O2 Delivery O2 Flow Rate FiO2 07/20/18 16:07 Nasal Cannula 2.0 07/20/18 16:00 96.3 89 16 79/58 (65) 95 89 07/20/18 09:31 28 Laboratory Tests Test 07/20/18 03:30 White Blood Count 11.4 K/UL (4.8-10.8) H Red Blood Count 2.56 M/UL (4.70-6.10) L Hemoglobin 7.8 G/DL (14.2-18.0) L Hematocrit 22.4 % (42.0-52.0) L Mean Corpuscular Volume 87 FL (80-99) Mean Corpuscular Hemoglobin 30.5 PG (27.0-31.0) Mean Corpuscular Hemoglobin Concent 35.0 G/DL (32.0-36.0) Red Cell Distribution Width 18.0 % (11.6-14.8) H Platelet Count 19 K/UL (150-450) #L Mean Platelet Volume 6.6 FL (6.5-10.1) Neutrophils (%) (Auto) % (45.0-75.0) Lymphocytes (%) (Auto) % (20.0-45.0) Monocytes (%) (Auto) % (1.0-10.0) Eosinophils (%) (Auto) % (0.0-3.0) Basophils (%) (Auto) % (0.0-2.0) Differential Total Cells Counted 100 Neutrophils % (Manual) 87 % (45-75) H Lymphocytes % (Manual) 7 % (20-45) L Monocytes % (Manual) 3 % (1-10) Eosinophils % (Manual) 3 % (0-3) Basophils % (Manual) 0 % (0-2) Band Neutrophils 0 % (0-8) Nucleated Red Blood Cells 4 /100 WBC Platelet Estimate Decreased L Platelet Morphology Normal Hypochromasia 3+ Anisocytosis 2+ Spherocytes 3+ Sodium Level 137 MMOL/L (136-145) Potassium Level 4.9 MMOL/L (3.5-5.1) Chloride Level 110 MMOL/L (98-107) H Carbon Dioxide Level 14 MMOL/L (21-32) L Anion Gap 13 mmol/L (5-15) Blood Urea Nitrogen 109 mg/dL (7-18) H Creatinine 4.2 MG/DL (0.55-1.30) H Estimat Glomerular Filtration Rate 19.4 mL/min (>60) Glucose Level 68 MG/DL (74-106) L Calcium Level 6.4 MG/DL (8.5-10.1) L Phosphorus Level 8.7 MG/DL (2.5-4.9) H Magnesium Level 2.0 MG/DL (1.8-2.4) Total Bilirubin 4.8 MG/DL (0.2-1.0) H Direct Bilirubin 3.9 MG/DL (0.0-0.3) H Aspartate Amino Transf (AST/SGOT) 37 U/L (15-37) Alanine Aminotransferase (ALT/SGPT) 8 U/L (12-78) L Alkaline Phosphatase 201 U/L (46-116) H Total Protein 3.9 G/DL (6.4-8.2) L Albumin 0.9 G/DL (3.4-5.0) L Globulin 3.0 g/dL Albumin/Globulin Ratio 0.3 (1.0-2.7) L Intake and Output 07/19/18 07/20/18 19:00 07:00 Intake Total 1201 ml 1055 ml Output Total 120 ml 100 ml Balance 1081 ml 955 ml Intake Oral 120 ml IV Total 831 ml 1055 ml Blood Product 250 ml Output Urine Total 120 ml 100 ml # Bowel Movements 4 1 Objective PHYSICAL EXAMINATION: GENERAL: The patient is thin-appearing male, in no apparent distress. HEENT: Eyes, pupils equal and responsive to light and accommodation. Extraocular movements are intact. NECK: Supple without lymphadenopathy. CHEST: Lungs are clear to auscultation bilaterally without wheezes or rales. CARDIOVASCULAR: Tachycardic, regular rhythm. S1 and S2 are normal without murmurs, rubs, or gallops. ABDOMEN: Soft, nontender, nondistended. Positive bowel sounds. No evidence of hepatosplenomegaly. Currently, no rebound or guarding noted. RECTAL: Refused. GENITALIA: Refused. EXTREMITIES: Negative for clubbing, cyanosis, or edema. NEUROLOGIC: Cranial nerves II through XII are grossly intact without focal deficits. Motor strength is 5/5 bilaterally intact. Deep tendon reflexes are 2+ plantar. Assessment/Plan Assessment/Plan ASSESSMENT: This is a 37-year-old male with: 1. Abdominal pain. 2. Nausea with vomiting. 3. Diarrhea. 4. Rectal bleeding. 5. Human immunodeficiency virus. 6. Kaposi's sarcoma. 7. Castleman's disease. 8. Hepatitis B. 9. Clostridium difficile diarrhea 10. Severe anemia-blood loss 11. Thrombocytopenia 12. Renal failure TREATMENT: 1. Abdominal pain/nausea/vomiting/rectal bleeding. The patient has history of Clostridium difficile, which was resistant to Flagyl. An Infectious Diseases consultation has been obtained with Dr. Mendoza. A Gastroenterology consultation has been obtained with Dr. Michael Grande. Refused GI procedures-see GI note. NON COMPLIANT WITH MEDICAL TREATMENT 2. Human immunodeficiency virus. Continue HAART as above. 3. Kaposi's sarcoma. The patient is status post chemotherapy - see onc note 4. Castleman's disease. Refused biopsy-see heme/onc note. NON COMPLIANT WITH MEDICAL TREATMENT 5. Hepatitis B. 6. Continue oral vancomycin; add flagyl per GI 7. S/P transfusion 5 unit PRBC total; current hgb=7.8 8. V/Q scan 07/15/. 9. S/P Transfusion 3 units of platelets total; current plt=12,000 10. see Heme/onc consult 11. refused hemodialysis-see nephro note. 12. Comfort care; hospice Adam Carroll MD Jul 20, 2018 18:59
[2018-07-20] MEDS ORDERED: Fleet's Enema 133ml RECTAL SCH (23:00)
--- NOTE | 2018-07-21 10:45 | Discharge Summary ---
Discharge Summary Discharge Summary _ DATE OF ADMISSION: 07/12/2018 DATE OF DISCHARGE: 07/20/2018 DISCHARGED BY: Dr. Gtz REASON FOR ADMISSION: 37 years old male with past medical history of HIV/AIDS, low CD4 count, Castleman disease, Kaposi sarcoma, recurrent C. difficile colitis presented for evaluation due to weakness, fever and diarrhea. Patient reported subjective fevers and generalized weakness. Upon evaluation patient was hypotensive and tachycardic. Chest x-ray revealed right upper lobe infiltrate . EKG revealed sinus tachycardia, no acute ischemic changes. Laboratory work-up initially revealed no leukocytosis, hemoglobin 8.5, hematocrit 25.7. Platelet count 64. Lactic acid 3.1. Troponin - 0.003. Albumin 0.8. Stable LFT. Patient pancultured, started on broad spectrum antibiotics and IVF and admitted to direct observational unit fo severe sepsis, dehydration , pneumonia , anemia . CONSULTANTS: asparagus cutter Dr. Vega pulmonary Dr. Hester ID specialist Dr. Mendoza GI specialist Dr. Grande data clerk Dr. Aguiar assistant product manager/oncologist Dr. Bingham [facility] COURSE: Patient admitted to direct observational unit. Patient started on the IV fluids and empiric antibiotic for pneumonia and oral vancomycin for presumed recurrent C. difficile colitis. ID specialist followed. Blood cultures were negative. Stool culture was negative. Stool for C. difficile was positive. Sputum culture revealed Liz. Patient was on oral Vanco and IV Flagyl. Patient initially was on Bactrim and Zosyn , which were discontinued secondary to worsening thrombocytopenia. Patient was on azithromycin for MAC prophylaxis and Atovaquone for PCP prophylaxis T-cell subsets revealed CD4 of 86. Patient was on antiretroviral therapy, however per ID specialist questionable compliance with antiretroviral therapy. On prior admission patient was diagnosed with C difficile and was discharged on oral vancomycin with questionable compliance. VQ scan was revealed low probability of PE. According to asparagus cutter, sinus tachycardia was likely due to severe sepsis and probably dehydration. No evidence of SVT or atrial fibrillation on telemetry. Patient was on low-dose of beta-adiel. Supplemental oxygen provided as needed to keep pulse oximetry above 92%. Pulmonary toilet provided as needed. Venous duplex bilateral lower extremity revealed no evidence of acute DVT. Patient demonstrated worsening coagulopathy a and received vitamin K x1. Blood pressure was closely monitored and remained low. Patient received bolus of normal saline along with albumin boluses . Blood pressure remained low, but stable. Patient was continued with gentle IV fluids. Prior echocardiogram revealed ejection fraction of 50% with mild cardiomyopathy. GI specialist follow. Stool OB x2 positive. Patient with evidence of severe anemia , requiring multiple units of packed red blood cells transfusion while in the hospital . However. patient declined GI procedure. Renal parameters and electrolytes were closely monitored .; nephrotoxics avoided as possible. Electrolytes corrected as needed, Functional Tester followed, Nguyen catheter was placed for strict intake and output measurement. Noted scrotal edema . Scrotal ultrasound revealed extensive edema, but no abnormalities. Scrotum was elevated. Patient has severe diffuse lymphadenopathy in the setting of Castleman disease/ Kaposi's sarcoma. Patient completed chemotherapy in 2018. Patient was [facility] at [facility] . Prior CT scan revealed extensive lymphadenopathy throughout . Patient undergone biopsy of axilla lymph node, on 05/25/2018 , but final result was nondiagnostic. Vehicle And Equipment Cleaner explained to patient the need to get another biopsy versus bone marrow biopsy , however patient declined further testing, including excisional lymph node biopsy. Flow cytometry revealed abnormal B-cell population. Patient with severe thrombocytopenia, lowest platelet count 8. Patient received platelet transfusion while in the hospital. Patient condition was deteriorating. Patient developed acute renal failure with creatinine 4.2 from initial 1.2 and BUN 109 from initial 20 . Functional Tester advised on hemodialysis. Plan of care and overall poor prognosis discussed with the patient's mother, who declined hemodialysis. Comfort care was discussed with patient 's mother, who agreed to proceed with comfort care. Patient subsequently was made DNR/DNI status on 07/20 and was discharged home with hospice services. FINAL DIAGNOSES: Severe sepsis secondary to C. difficile infection and pneumonia Recurrent C. difficile infection HIV/AIDS with CD4 -86 Acute renal failure Pancytopenia Acute anemia of chronic disease Probably GI bleeding ( stool OB positive x 2) Severe thrombocytopenia, requiring transfusion Sinus tachycardia, likely secondary to sepsis and dehydration Severe protein calorie malnutrition Coagulopathy Anemia of folate deficiency Hepatitis C Chronic hepatitis B Castleman disease History of DVT Electrolyte imbalance Moderate pulmonary hypertension DISCHARGE MEDICATIONS: See Medication Reconciliation list. DISCHARGE INSTRUCTIONS: Patient was discharge home with the hospice services Gerri Almeida NP Jul 21, 2018 10:45
== END 2018-07-20 17:30 | disposition hospice, home (50) | DRG 974 ==
LOC: EDBD 21:30 → EDBEDREQ 21:55 → EMR 22:03 → 2E 22:06 → EDBEDREQ 22:41 → 4W 07-13 09:50 → 2W 07-13 09:52
PROC: 05H433Z Insertion of Infusion Device into Left Innominate Vein, Percutaneous Approach (ICD-10-PCS; principal; 2018-07-17)
PROC: B54NZZA Ultrasonography of Left Upper Extremity Veins, Guidance (ICD-10-PCS; principal; 2018-07-17)
DX: A41.4 Sepsis due to anaerobes (principal); J69.0 Pneumonitis due to inhalation of food and vomit; B20 Human immunodeficiency virus [HIV] disease; E43 Unspecified severe protein-calorie malnutrition; J18.9 Pneumonia, unspecified organism; N17.9 Acute kidney failure, unspecified; D47.Z2 Castleman disease; C46.9 Kaposi's sarcoma, unspecified; E87.1 Hypo-osmolality and hyponatremia; Z68.1 Body mass index [BMI] 19.9 or less, adult; K92.1 Melena; A04.71 Enterocolitis due to Clostridium difficile, recurrent; B19.10 Unspecified viral hepatitis B without hepatic coma; D61.818 Other pancytopenia; D68.9 Coagulation defect, unspecified; R65.20 Severe sepsis without septic shock; E86.0 Dehydration; B19.20 Unspecified viral hepatitis C without hepatic coma; D69.6 Thrombocytopenia, unspecified; N18.9 Chronic kidney disease, unspecified; G43.A0 Cyclical vomiting, in migraine, not intractable; D52.9 Folate deficiency anemia, unspecified; Z51.5 Encounter for palliative care; Z66 Do not resuscitate; N50.89 Other specified disorders of the male genital organs; I27.20 Pulmonary hypertension, unspecified
CPT/HCPCS: 36415; 36569; 36600; 71045; 76870; 76937; 78579; 78580; 80048; 80053; 80061; 80202; 81003; 82150; 82248; 82270; 82533; 82550; 82553; 82803; 82962; 82977; 83036; 83605; 83690; 83735; 83880; 84100; 84300; 84443; 84484; 84550; 85007; 85025; 85610; 85651; 85730; 86140; 86360; 86850; 86900; 86901; 86920; 87040; 87045; 87070; 87081; 87205; 87324; 89050; 93005; 93306; 93970; 96361; 96365; 96368; 96375; 96376; 99291; A9503; J2405